=== PATIENT | female | born 1970 | race Caucasian/White ===

== ENCOUNTER 2019-12-03 01:20 | Outpatient (CLI) | payer OTHER, SELFPAY ==
[2019-12-03 19:24] LABS: SARS-CoV-2 RNA PCR Negative
== END 2019-12-03 01:21 | disposition home or self-care (01) ==
LOC: ANHCOVIDDT 01:20
PROVIDERS: PCP Family Medicine; Visit Provider Internal Medicine Gastroenterology
DX: Z01.812 Encounter for preprocedural laboratory examination (principal); Z20.828 Contact with and (suspected) exposure to other viral communicable diseases
CPT/HCPCS: 87635; C9803; U0003

== ENCOUNTER 2019-12-05 01:26 | Day surgery (SDC) | payer OTHER, SELFPAY ==
[2019-11-28 13:52] VITALS: BMI 47.7
[2019-12-05 08:20] VITALS: BP 168/96; PULSE 71; RESP 20; TEMP 36.9; O2SAT 71
--- NOTE | 2019-12-05 08:46 | P.HP_ITS ---
History of Present Illness History of Present Illness Consent: Risks, benefits, and alternatives have been discussed and questions answered. Patient agrees to proceed with procedure. Chief complaint: Neoplasm Screening Narrative: Nolvia Sanches is a 49 year old W female referred for screening colonoscopy secondary to a positive colo guard test. Patient is asymptomatic and there is no family history of colon polyps or colon cancer. Patient did have a gastric bypass Jeanie-en-Y procedure in 2017 loss 120 lb. [facility] Past Medical History Medical History Hypertension Surgical History Surgical History (Updated 12/05/19 @ 08:47 by Cricket Ashby MD) Delivery by section History of gastric bypass Social History Social History Smoking status: Former smoker Alcohol intake: current Drinks per week: 4 Substance use: never Living arrangements: with family Gender identity (if verbalized by the patient): Female Spiritual care concerns: No Meds Home Medications and Allergies Home Medications Medication Instructions Recorded Confirmed Type furosemide 40 mg PO DAILY 11/28/19 11/28/19 History lisinopril 20 mg PO BID 11/28/19 11/28/19 History venlafaxine 75 mg PO DAILY 11/28/19 11/28/19 History Allergies Allergy/AdvReac Type Severity Reaction Status Date / Time Penicillins Allergy Unknown Hives Verified 12/05/19 08:31 Poppy Seed Allergy Unknown Unknown Uncoded 12/05/19 08:31 STEROIDS Allergy Unknown Nausea and Uncoded 12/05/19 08:31 Vomiting Vital Signs Vital Signs - 24 hr 12/05/19 08:20 Temperature 36.9 C Pulse Rate 71 Respiratory Rate 20 Blood Pressure 168/96 H Pulse Oximetry 71 L Exam Const: Orientation/consciousness: patient oriented x3 Resp: Auscultation: clear to auscultation bilaterally Cardio: Rate: regular rate Rhythm: regular rhythm Heart sounds: no murmurs GI: GI Palp: Yes Soft to palpation, No Tenderness to palpation present (GI), Yes No hepatosplenomegaly present and No Palpable mass present Auscultation: normal bowel sounds Neuro: General: patient oriented x3 and no focal motor deficits Extrem: General: no pedal edema Assessment and Plan Additional Plan colonoscopy secondary positive colo guard test
--- NOTE | 2019-12-05 09:10 | WPDANESEPPF ---
Anes - Initial Pre Proc Eval Procedure: Operation Date: 12/05/19 09:30 Proposed Procedures p Screening Colonoscopy - Cricket Ashby MD Date/Time: 12/05/19 09:10 Surgeon: Cricket Ashby MD Pre Op Diagnosis: Neoplasm Screening Patient Data Age: 49 Gender: F Height: 5 ft 4 in Weight: 126.6 kg Last Vital Signs Temp 98.4 F 12/05/19 08:20 Pulse 71 12/05/19 08:20 Resp 20 12/05/19 08:20 BP 168/96 H 12/05/19 08:20 Pulse Ox 71 L 12/05/19 08:20 Allergies Allergy/AdvReac Type Severity Reaction Status Date / Time Penicillins Allergy Unknown Hives Verified 12/05/19 08:31 Poppy Seed Allergy Unknown Unknown Uncoded 12/05/19 08:31 STEROIDS Allergy Unknown Nausea and Uncoded 12/05/19 08:31 Vomiting Home Medications Medication Instructions Recorded Confirmed Type furosemide 40 mg PO DAILY 11/28/19 12/05/19 History lisinopril 20 mg PO BID 11/28/19 12/05/19 History venlafaxine 75 mg PO DAILY 11/28/19 12/05/19 History Patient hx anesthesia problems: none Family hx anesthesia problems: none PMFSH Past Medical History Medical History (Updated 12/05/19 @ 09:10 by Panda Boggs MD) Anxiety Hypertension Migraine Morbid obesity Surgical History Surgical History (Updated 12/05/19 @ 08:47 by Cricket Ashby MD) Delivery by section History of gastric bypass Social History Social History Smoking status: Former smoker Alcohol intake: current Drinks per week: 4 Substance use: never Living arrangements: with family Gender identity (if verbalized by the patient): Female Spiritual care concerns: No Anes - Eval Final PreProcedure Day of Procedure 12/05/19 09:10 Patient weight: morbidly obese Heart: regular rate and rhythm Lungs: clear to auscultation Airway: Mallampati scale class III Neurological: alert and oriented Last oral intake: >/= 8 hours ASA classification: III Emergent: no Anesthetic plan: proceed Anesthesia type and monitoring: general GIVS and standard monitoring Informed Consent: The patient's anesthetic plan and its attendant risks and benefits were discussed with the patient/family/POA. Questions were solicited and answers provided to the satisfaction of the patient/family/POA.
[2019-12-05] MEDS: LACTATED RINGERS 1,000 ML 150 ML IV CONT (09:20)
[2019-12-05] MEDS: SIMETHICONE ORAL SUSPENSION 20 MG/0.3 ML 30 ML BOTTLE 0.6 ML IRRIGATION (09:36)
[2019-12-05 09:52] VITALS: BP 111/92; PULSE 66; RESP 26; O2SAT 98
[2019-12-05 10:02] VITALS: BP 114/92; PULSE 65; RESP 16; O2SAT 98
[2019-12-05 10:12] VITALS: BP 142/90; PULSE 66; RESP 20; O2SAT 98
[2019-12-05 10:22] VITALS: BP 136/98; PULSE 65; RESP 16; O2SAT 98
== END 2019-12-05 10:30 | disposition home or self-care (01) ==
PROVIDERS: PCP Family Medicine; Visit Provider Internal Medicine Gastroenterology
PROC: 0DJD8ZZ Inspection of Lower Intestinal Tract, Via Natural or Artificial Opening Endoscopic (ICD-10-PCS; CPT 45378; principal; 2019-12-05 09:30)
DX: Z12.11 Encounter for screening for malignant neoplasm of colon (principal); R19.5 Other fecal abnormalities; I10 Essential (primary) hypertension; F41.9 Anxiety disorder, unspecified; E66.01 Morbid (severe) obesity due to excess calories; Z68.42 Body mass index [BMI] 45.0-49.9, adult; Z98.84 Bariatric surgery status; Z87.891 Personal history of nicotine dependence
CPT/HCPCS: 45378; J2704; J7120

== ENCOUNTER → 2020-01-15 14:14 | Outpatient (CLI) | payer OTHER, SELFPAY ==
--- NOTE | ~2020-01-15 | MM_ITS ---
EXAMINATION: MM screening [facility] BI [facility] HISTORY: Screening mammogram TECHNIQUE: Craniocaudal and mediolateral oblique 3-D tomosynthesis images were obtained and synthetic 2-D images were generated. CAD analysis was submitted and interpreted. COMPARISON: 12/18/2018, 11/14/2017, 10/13/2016 BREAST PARENCHYMAL COMPOSITION: The breasts are almost entirely fatty. FINDINGS: There is no evidence of suspicious mass, calcification, or architectural distortion to sugg est malignancy in either breast. There has been no suspicious interval change. IMPRESSION: 1. No mammographic evidence of malignancy. 2. Recommend routine screening mammography in one year. BI-RADS Category 1: Negative Reviewed, dictated and finalized at location A. EN YOGURT MAKER
== END ==
PROVIDERS: Visit Provider Obstetrics & Gynecology
DX: Z12.31 Encounter for screening mammogram for malignant neoplasm of breast (principal)
CPT/HCPCS: 77063; 77067

== ENCOUNTER → 2020-07-21 07:39 | Outpatient (CLI) | payer OTHER, SELFPAY ==
--- NOTE | ~2020-07-21 | XR_ITS ---
XR abdomen/kub 1V DATE: 07/21/2020 07:55 INDICATION: Abdominal pain, constipation TECHNIQUE: AP projection, 2 views COMPARISON: None FINDINGS: No bowel obstruction. The psoas shadows are intact. No visceromegaly or significant abnorma l calcification. Bilateral calcified pelvic phleboliths. Included skeletal structures are unremarkable. IMPRESSION: Nonspecific abdomen; no evidence of bowel obstruction Reviewed, dictated and finalized at Location A. Reviewed, dictated and finalized at location B.
== END ==
PROVIDERS: PCP Physician Assistant; Visit Provider Physician Assistant
DX: R07.9 Chest pain, unspecified (principal); K59.00 Constipation, unspecified; R10.9 Unspecified abdominal pain
CPT/HCPCS: 74018

== ENCOUNTER 2020-09-30 08:51 | Outpatient (CLI) | payer OTHER, SELFPAY ==
--- NOTE | 2020-09-30 | EST_ITS ---
Patient Info Name: Nolvia Sanches Age: 50 years : 1970 Gender: Female Ht: 64 in Wt: 288 lbs BSA: 2.51 m2 HR: 64 bpm BP: 149 / 86 mmHg Heart Rhythm: Sinus Rhythm Technical Quality: Fair Exam Date: 09/30/2020 9:24 AM Exam Location: [facility] Exam Room: stress lab Patient Status: Outpatient Admit Date: 09/30/2020 Staff Ordering Physician: Tiffanie, Beata Cuellar PA-C Coverage Specialist: Shital Ray RDCS Attending Provider: DR JERSON HUFFMAN Referring Physician: Tiffanie CULVER; Exercise Technologist: Valentin Cortez RDCS, RT Exercise Physician: Darling Biggs MD Exam Type: CA stress echo Study Info Indications - chest pain Summary 1. At rest: Normal left ventricular systolic function with no regional wall motion abnormalities. Ejection fraction estimated 65%. 2. Inconclusive treadmill stress test for ischemia. The patient exercised only 2:30 minutes, and we reduced the incline from the Armando protocol to help her prolong her exercise time. Peak heart rate was only 119 beats per minute which is 70% of predicted maximal heart rate. No ischemic appearing EKG changes at this level of exercise. 3. After exercise there are no segmental wall motion abnormalities. However there appeared to be some dilatation of the left ventricle which is an abnormal response, and there was a lack of improvement of LV function which is also abnormal. However it is difficult to draw conclusions due to the low level of exercise. Perhaps these changes related to hypertension or other factors. 4. Resting hypertension, 149/86, with a hypertensive blood pressure response reaching 207/116 mmHg with exercise. 5. Very poor exercise tolerance. 6. Technically difficult study due to the patient's body habitus, the endocardium was not well seen in all views. 7. Consider alternative testing such as a Lexiscan stress test if clinically indicated. Left Ventricle Left ventricular chamber size, wall thickness, systolic and diastolic function are normal with no regional wall motion abnormalities with an estimated ejection fraction of Empty. At rest: Normal left ventricular systolic function with no regional wall motion abnormalities. Ejection fraction estimated 65%. Protocol: Manual Mode Stress ECG Details Stage: REST Duration (min): 4 min : 42 sec Costa: --- Speed (mph): 0.0 Grade (%): 0 HR (bpm): 66 SBP (mmHg): 149 DBP (mmHg): 86 METS: --- Stage: REST Duration (min): 18 min : 4 sec Costa: --- Speed (mph): 0.0 Grade (%): 0 HR (bpm): 59 SBP (mmHg): 149 DBP (mmHg): 86 METS: --- Stage: STAGE 1 Duration (min): 1 min : 0 sec Costa: --- Speed (mph): 1.7 Grade (%): 10 HR (bpm): 88 SBP (mmHg): 149 DBP (mmHg): 86 METS: --- Stage: STAGE 1 Duration (min): 2 min : 0 sec Costa: --- Speed (mph): 1.7 Grade (%): 10 HR (bpm): 107 SBP (mmHg): 149 DBP (mmHg): 86 METS: --- Stage: STAGE 1 Duration (min): 3 min : 0 sec Costa: --- Speed (mph): 0.0 Grade (%): 0 HR (bpm): 117 SBP (mmHg): 168 DBP (mmHg): 104 METS: --- Stage: STAGE 1 Duration (min): 4 min : 0 sec Costa: --- Speed (mph): 0.0 Gr
== END 2020-09-30 08:52 | disposition home or self-care (01) ==
PROVIDERS: PCP Physician Assistant; Visit Provider Physician Assistant
DX: R07.9 Chest pain, unspecified (principal); I10 Essential (primary) hypertension
CPT/HCPCS: 93351

== ENCOUNTER 2020-10-06 09:14 | Outpatient (CLI) | payer OTHER, SELFPAY ==
--- NOTE | ~2020-10-06 | US_ITS ---
EXAMINATION: US venous doppler [facility] DATE: 10/06/2020 10:06 INDICATION: Bilateral lower limb swelling TECHNIQUE: Grayscale ultrasound images without and with compression and Doppler ultrasound images of the bilateral lower extremity veins were obtained. COMPARISON: None. FINDINGS: The visualized portions of right common femoral vein, profunda (deep) femoral vein, femoral vein, pop liteal vein, posterior tibial veins and greater saphenous vein outflow are patent. Right standing venous mapping: reflux seconds duration; vein size. Greater saphenous origin: NA; 6.6 mm. Greater saphenous proximal thigh:- 2 seconds; 6.6 mm. Greater saphenous mid thigh:-------- 0 seconds; 5.2 mm. Greater saphenous distal thigh:------ 0 seconds; 4.0 mm. Greater saphenous proximal calf:--- 0 seconds; 4.5 mm. Greater saphenous mid calf: 0 seconds; 3.5 mm. Greater saphenous distal calf:-------- 0 seconds; 2.5 mm. Lesser saphenous proximally:------- 0 seconds; 2.5 mm. Lesser saphenous mid : 0 seconds; 2.6 mm. Lesser saphenous distally: 0 seconds; 2.3 mm. The visualized portions of left common femoral vein, profunda femoral vein, femoral vein, popliteal v ein, posterior tibial veins, peroneal veins and greater saphenous vein outflow are patent. Left standing venous mapping: reflux seconds duration; vein size. Greater saphenous origin: NA; 14.0 mm. Greater saphenous proximal thigh:- 0 seconds; 6.9 mm. Greater saphenous mid thigh:-------- 0 seconds; 3.7 mm. Greater saphenous distal thigh:------ 0 seconds; 3.0 mm. Greater saphenous proximal calf:--- 1 seconds; 7.6 mm. Greater saphenous mid calf: 1.5 seconds; 3.5 mm. Greater saphenous distal calf:-------- 0 seconds; 4.0 mm. Lesser saphenous proximally:------- 0 seconds; 2.1 mm. Lesser saphenous mid : 0 seconds; 2.6 mm. Lesser saphenous distally: 0 seconds; 3.0 mm. IMPRESSION: 1. No deep venous thrombosis in either lower limb. 2. Venous mapping as detailed above with minimal reflux, the greatest of 1.5 second duration at the l eft greater saphenous vein at the mid calf. Reviewed, dictated and finalized at location A. IMPRESSION: 1. No deep venous thrombosis in either lower limb. 2. Venous mapping as detailed above with minimal reflux, the greatest of 1.5 se cond duration at the left greater saphenous vein at the mid calf.
== END 2020-10-06 09:15 | disposition home or self-care (01) ==
LOC: ANHIMG 09:17
PROVIDERS: PCP Physician Assistant; Visit Provider Physician Assistant
DX: R60.0 Localized edema (principal)
CPT/HCPCS: 93970

== ENCOUNTER → 2021-01-16 09:09 | Outpatient (CLI) | payer OTHER, SELFPAY ==
--- NOTE | ~2021-01-16 | MM_ITS ---
EXAMINATION: MM screening [facility] BI [facility] [place] HISTORY: Screening mammogram TECHNIQUE: Craniocaudal and mediolateral oblique 3-D tomosynthesis images were obtained and synthetic 2-D images were generated. CAD analysis was submitted and interpreted. COMPARISON: 01/15/2020, 12/18/2018 BREAST PARENCHYMAL COMPOSITION: The breasts are almost entirely fatty. FINDINGS: There is no evidence of suspicious mass, calcification, or architectural distortion to sugg est malignancy in either breast. There has been no suspicious interval change. IMPRESSION: 1. No mammographic evidence of malignancy. 2. Recommend routine screening mammography in one year. BI-RADS Category 1: Negative Reviewed, dictated and finalized at location A. CAL OFFICER PSYCHIATRY
== END ==
PROVIDERS: Visit Provider Obstetrics & Gynecology
DX: Z12.31 Encounter for screening mammogram for malignant neoplasm of breast (principal)
CPT/HCPCS: 77063; 77067

== ENCOUNTER → 2022-03-01 10:43 | Outpatient (CLI) | payer OTHER, SELFPAY ==
--- NOTE | ~2022-03-01 | XR_ITS ---
Right Knee Technique: AP, lateral, and sunrise views were obtained. Clinical History: Pain Findings: No fracture or dislocation is seen. Osseous alignment is anatomic. Minimal tricompartmental degenerative spurring noted. There is narrowing of the lateral aspect of the patellofemoral compartm ent. Diffuse subcutaneous soft tissue edema present. No joint effusion is seen. Impression: No acute fracture or dislocation. Minimal degenerative change, as above. Diffuse subcutaneous soft tissue edema. Reviewed, dictated and finalized at location . POT TENDER Impression: No acute fracture or dislocation. Minimal degenerative change, as above. Diffuse subcutaneous soft tissue edema.
== END ==
PROVIDERS: PCP Nurse Practitioner Family; Visit Provider Nurse Practitioner Family
DX: M25.561 Pain in right knee (principal); G89.29 Other chronic pain
CPT/HCPCS: 73562

== ENCOUNTER → 2022-03-10 13:19 | Outpatient (CLI) | payer OTHER, SELFPAY ==
--- NOTE | ~2022-03-10 | MM_ITS ---
EXAMINATION: MM screening [facility] BI [facility] [place] HISTORY: Screening mammogram TECHNIQUE: Craniocaudal and mediolateral oblique 3-D tomosynthesis images were obtained and synthetic 2-D images were generated. CAD analysis was submitted and interpreted. COMPARISON: 01/16/2021, 01/15/2020, 12/18/2018 BREAST PARENCHYMAL COMPOSITION: There are scattered areas of fibroglandular density. FINDINGS: No suspicious mass, calcification, or architectural distortion are identified in either nickolas ast to suggest malignancy. There has been no suspicious interval change. IMPRESSION: 1. No mammographic evidence of malignancy. 2. Recommend routine screening mammography in one year. BI-RADS Category 1: Negative Reviewed, dictated and finalized at location A. TORIAL MANAGER
== END ==
PROVIDERS: PCP Obstetrics & Gynecology; Visit Provider Obstetrics & Gynecology
DX: Z12.31 Encounter for screening mammogram for malignant neoplasm of breast (principal)
CPT/HCPCS: 77063; 77067

== ENCOUNTER 2022-07-05 17:00 | Emergency (ER) | payer OTHER, SELFPAY ==
--- NOTE | 2022-07-05 17:04 | ED.EXTPRO ---
HPI - Extremity Problem General Chief complaint: Extremity Problem,Nontraumatic Stated complaint: leaking leg Time Seen by Provider: 07/05/22 17:06 Source: patient, RN notes reviewed and old records reviewed Mode of arrival: ambulatory Limitations: no limitations History of Present Illness HPI Narrative: 52-year-old female presents to the [facility] with her legs ?leaking. ? Patient states she has had is some increased swelling over the last couple of weeks. Noticed that her left lower leg started weeping today. No increased erythema. No increased warmth. Currently on exam no weeping noted Primary care providers at [facility] and has an appointment on Monday. States that she used to wear compressions stockings but her legs have gotten bigger over the last couple weeks and have not been able to wear them Related Data Home Medications Medication Instructions Recorded Confirmed furosemide 40 mg tablet 60 mg PO DAILY 11/28/19 07/05/22 lisinopril 20 mg tablet 20 mg PO BID 11/28/19 07/05/22 venlafaxine 75 mg capsule,extended 187.5 mg PO DAILY 11/28/19 07/05/22 release 24 hr alprazolam 0.5 mg tablet 0.5 mg PO HS 07/05/22 07/05/22 cholecalciferol (vitamin D3) 1,250 1,250 mcg PO DAILY 07/05/22 07/05/22 mcg (50,000 unit) capsule metoprolol tartrate 50 mg tablet 50 mg PO DAILY 07/05/22 07/05/22 potassium chloride 20 mEq 20 meq PO DAILY 07/05/22 07/05/22 tablet,extended release(part/cryst) semaglutide (weight loss) 0.5 0.5 mg subcut WEEKLY 07/05/22 07/05/22 mg/0.5 mL subcutaneous pen injector (Wegovy) trazodone 50 mg tablet 50 mg PO HS 07/05/22 07/05/22 Allergies Allergy/AdvReac Type Severity Reaction Status Date / Time Penicillins Allergy Unknown Hives Verified 07/05/22 17:03 Poppy Seed Allergy Unknown Unknown Uncoded 07/05/22 17:03 STEROIDS Allergy Unknown Nausea and Uncoded 07/05/22 17:03 Vomiting Review of Systems Review of Systems: All systems reviewed & are unremarkable except as noted in HPI and below Constitutional: Constitutional: Reports no additional constitutional complaints Eyes: Eyes: Reports no additional eye complaints ENT: Reports system reviewed and no additional complaints, except as documented Cardiovascular: Cardiovascular: Reports no additional cardiovascular complaints, Denies chest pain and Denies dyspnea Respiratory: Respiratory: Reports no additional respiratory complaints, Denies chest congestion, Denies cough and Denies dyspnea Gastrointestinal: Gastrointestinal: Reports no additional gastrointestinal complaints, Denies abdominal pain, Denies nausea and Denies vomiting Musculoskeletal: Musculoskeletal: Reports as per HPI Integumentary/Breasts: Skin/Breast: Reports system reviewed and no additional complaints, except as docu Neurologic: Reports system reviewed and no additional complaints, except as documented Psychiatric: Psychiatric: Reports no additional psychiatric complaints Allergic/Immunologic: Allergic/Immunologic: Reports no additional allergic/immunologic complaints [facility] Past Medical History Medical History Anxiety Hypertension Migraine Morbid obesity Surgical History Surgical History Delivery by section History of gastric bypass Social History Social History Smoking status: Former smoker Alcohol intake: current Drinks per week: 4 Substance use: never Living arrangements: with family Gender identity (if verbalized by the patient): Female Spiritual care concerns: No Comments At the time of my signature, I reviewed and agree with the nursing past medical, surgical, social, and family history. There is no relevant family history pertinent to the patient complaint. Exam Const: General: cooperative, healthy appearing, comfortable, no acute distress, well developed, alert an
[2022-07-05 17:08] VITALS: BP 159/102; PULSE 73; RESP 20; TEMP 36.6; O2SAT 97
== END 2022-07-05 17:22 | disposition home or self-care (01) ==
PROVIDERS: Emergency Provider Nurse Practitioner
DX: R60.0 Localized edema (principal); Z87.891 Personal history of nicotine dependence; F41.9 Anxiety disorder, unspecified; I10 Essential (primary) hypertension; E66.01 Morbid (severe) obesity due to excess calories; Z68.43 Body mass index [BMI] 50.0-59.9, adult
CPT/HCPCS: 99211; G0463

== ENCOUNTER 2022-07-14 15:13 | Outpatient (CLI) | payer OTHER, SELFPAY ==
--- NOTE | ~2022-07-14 | US_ITS ---
EXAMINATION:US venous doppler LE LT INDICATION:Left lower extremity swelling TECHNIQUE: Multiple grayscale, color flow and Doppler images of the left lower extremity deep venous systems were obtained and reviewed. COMPARISON:Ultrasound dated 07/07/2016 FINDINGS: The common femoral, superficial femoral and popliteal veins demonstrate normal respiratory variation, augmentation and compressibility. Color flow is also seen within the posterior tibial, pe roneal, greater saphenous and profunda veins. IMPRESSION: 1: No lower extremity deep venous thrombosis. Reviewed, dictated and finalized at location L.
== END 2022-07-14 15:14 | disposition home or self-care (01) ==
PROVIDERS: PCP Nurse Practitioner Family; Visit Provider Nurse Practitioner Family
DX: R22.42 Localized swelling, mass and lump, left lower limb (principal)
CPT/HCPCS: 93971

== ENCOUNTER 2023-02-16 18:35 | Observation (INO) | payer OTHER, SELFPAY ==
[2023-02-16] VITALS (15 sets, daily range): BP systolic 104–171; BP diastolic 49–145; PULSE 73–93; RESP 16–23; TEMP 36.4–36.7; O2SAT 92–100; BMI 63.6
--- NOTE | ~2023-02-16 | XR_ITS ---
EXAMINATION: XR wrist LT 2V DATE: 02/16/2023 21:48 INDICATION: Assess results of traction on a left wrist fracture dislocation TECHNIQUE: And anteroposterior view of the left wrist was obtained with traction. COMPARISON: 02/16/2023 at 8:29 PM FINDINGS: Again seen is a left wrist fracture dislocation with mildly comminuted and extra articular fractures of the distal metaphyseal region of the left radius. No appreciable change in the degree of displacem ent and angulation on the provided AP projection. The proximal carpal row projects over the distal ul na consistent with persistent dislocation of the ulnar carpal articulation. IMPRESSION: 1. No interval change in alignment with traction of the previously described left wrist fracture disl ocation. Reviewed, dictated and finalized at location A. L DBA IMPRESSION: 1. No interval change in alignment with traction of the previously described le ft wrist fracture dislocation.
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
--- NOTE | ~2023-02-16 | XR_ITS ---
XR surgery orthopedic Indication: ORIF left wrist TECHNIQUE: Fluoroscopy used during ORIF left wrist performed by [Trung Encarnacion MD] on 02/18. 1 minute 53 seconds with 2 images captured. FINDINGS: Correlate with procedure note. IMPRESSION: Fluoroscopy used during ORIF left wrist. Distal radial metaphyseal fracture in near-anato rigo alignment post reduction. Reviewed, dictated and finalized at location A. GER STERILE IMPRESSION: Fluoroscopy used during ORIF left wrist. Distal radial metaphyseal fracture in near-anatomic alignment post reduction.
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
--- NOTE | 2023-02-16 19:06 | ECG_ITS ---
Measurements Intervals [place] Rate: 71 P: 48 AL: 207 QRS: 4 QRSD: 82 T: 29 QT: 413 QTc: 450 Interpretive Statements SINUS RHYTHM LOW QRS VOLTAGE IN PRECORDIAL LEADS [QRS DEFLECTION < 1.0 mV IN CHEST LEADS] POOR R-WAVE PROGRESSION BORDERLINE ECG NO PREVIOUS ECG AVAILABLE FOR COMPARISON Electronically Signed On 02-17-2023 14:00:34 CHRISTIAN COUNSELOR by Vinh Roberson M.D.
[2023-02-16] MEDS: MORPHINE SULFATE (*CRX) 4 MG/ML INJ IV PUSH ×3 (20:03→23:36)
[2023-02-16] MEDS: ONDANSETRON INJ 4 MG/2 ML VIAL IV PUSH (20:03)
[2023-02-16 20:20] LABS: Basophils Absolute Auto 0.1 K/mm3 (0.0-0.1); Basophils Percent Auto 0.4 % (0.2-1.2); Eosinophils Absolute Auto 0.1 K/mm3 (0-0.3); Eosinophils Percent Auto 0.5 % (0-4.4); Hematocrit 38.3 % (37.0-47.0); Hemoglobin 12.1 g/dL (12.0-15.0); Immature Granulocyte Absolute 0.09 K/mm3 (0.00-0.031); Immature Granulocyte Percent A 0.6 % (0-0.5); Lymphocytes Percent Auto 14.4 % (18.3-44.2); Mean Corpuscular HGB Conc 31.6 g/dl (32-36); Mean Corpuscular Hemoglobin 33.2 pg (26-34); Mean Corpuscular Volume 105.2 fl (80-100); Mean Platelet Volume 9.8 fl (7.4-10.4); Monocytes Absolute Auto 1.1 K/mm3 (0.1-0.6); Monocytes Percent Auto 7.4 % (2.6-8.5); Neutrophils Absolute Auto 11.2 K/mm3 (1.3-6.7); Neutrophils Percent Auto 76.7 % (45.5-73.1); Platelet Count Result 234 k/mm3 (150-375); Red Blood Count 3.64 M/mm3 (4.2-5.4); Red Cell Distribution Width 15.1 % (11.5-14.5); White Blood Count 14.6 K/mm3 (4.5-10.0)
[2023-02-16 20:32] LABS: Prothrombin Time 13.9 Seconds (11.1-14.7)
[2023-02-16 20:33] LABS: Partial Thromboplastin Time 31.1 SECONDS (22.3-36.8)
[2023-02-16 20:35] LABS: Ethanol 124 mg/dL (<10)
[2023-02-16] MEDS: LIDOCAINE HCL 1% LOCAL INJ 10 ML VIAL INFILTRATE (20:38)
[2023-02-16] MEDS: PROPOFOL IV EMULSION 200 MG/20 ML VIAL 100 MG IV PUSH (20:38)
[2023-02-16 20:39] LABS: Anisocytosis 1+ (NORMAL); Ovalocytes 1+ (NORMAL); Platelet Estimate Adequate (Adequate); Schistocytes None Seen (NORMAL)
[2023-02-16] MEDS: SODIUM CHLORIDE 0.9% IV 1,000 ML 999 ML (20:55)
--- NOTE | 2023-02-16 20:59 | PC.NURSE ---
Dr Hobbs at bedside to give patient propofol for sedation. 50mg propofol given by Dr Hobbs at 2014 50mg of propofol given by Dr Hobbs at 2016 30mg of propofol given by Dr Hobbs at 2018 40mg of propofol given by Dr Hobbs at 2019 30mg of propofol given by Dr Hobbs at 2022 patient sleepy, but still awake
[2023-02-16 22:07] LABS: Estimated CRCL calculation 100 ml/min; Estimated Glomerular Filt Rate > 60
[2023-02-16 22:20] LABS: Alanine Aminotransferase 33 U/L (6-35); Albumin Level 3.5 g/dL (3.5-5.1); Alkaline Phosphatase 248 U/L (38-126); Anion Gap 7 mmol/L (8-16); Aspartate Amino Transferase 85 U/L (14-36); Bilirubin,Total 0.9 mg/dL (0.2-1.3); Blood Urea Nitrogen 15 mg/dL (7-17); Calcium 7.5 mg/dL (8.4-10.2); Carbon Dioxide 25 mmol/L (22-30); Chloride 100 mmol/L (98-107); Estimated CRCL calculation 113 ml/min; Estimated Glomerular Filt Rate > 60; Glucose 157 mg/dL (65-110); Potassium 3.4 mmol/L (3.4-5.0); Sodium 132 mmol/L (137-145)
[2023-02-16 22:33] LABS: Troponin I < 0.012 ng/mL (0.000-0.034)
[2023-02-16] MEDS: SODIUM CHLORIDE 0.9% IV 1,000 ML 100 ML IV CONT (23:36)
--- NOTE | 2023-02-17 00:13 | ADMGEN ---
This patient, Nolvia Sanches, was admitted to Medical Room 254-01. Patient/family oriented to hospital policies and general routines including ID bracelet, bed and alarms, visiting hours, pain management, procedures, bathroom and other care routines, personal items, smoking policy, room service/diet, and visiting hours. Information on how to activate the Rapid Response Team has been discussed. Patient/Family are encouraged to report perceived risks to care and to ask questions if they do not understand what they are told or what they should do.
[2023-02-17] MEDS: MORPHINE SULFATE (*CRX) 4 MG/ML INJ IV PUSH ×7 (01:45→22:35)
[2023-02-17 05:08] VITALS: BP 138/82; PULSE 93; RESP 18; TEMP 36.3; O2SAT 92
[2023-02-17 06:24] LABS: Alanine Aminotransferase 33 U/L (6-35); Albumin Level 3.6 g/dL (3.5-5.1); Alkaline Phosphatase 227 U/L (38-126); Anion Gap 7 mmol/L (8-16); Aspartate Amino Transferase 79 U/L (14-36); Bilirubin,Total 1.4 mg/dL (0.2-1.3); Blood Urea Nitrogen 15 mg/dL (7-17); Calcium 7.6 mg/dL (8.4-10.2); Carbon Dioxide 27 mmol/L (22-30); Chloride 100 mmol/L (98-107); Estimated CRCL calculation 139 ml/min; Estimated Glomerular Filt Rate > 60; Glucose 147 mg/dL (65-110); Potassium 3.8 mmol/L (3.4-5.0); Sodium 134 mmol/L (137-145)
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
[2023-02-17 07:55] LABS: Hematocrit 33.4 % (37.0-47.0); Hemoglobin 10.5 g/dL (12.0-15.0); Mean Corpuscular HGB Conc 31.4 g/dl (32-36); Mean Corpuscular Hemoglobin 33.1 pg (26-34); Mean Corpuscular Volume 105.4 fl (80-100); Platelet Count Result 212 k/mm3 (150-375); Red Blood Count 3.17 M/mm3 (4.2-5.4); Red Cell Distribution Width 15.2 % (11.5-14.5); White Blood Count 7.5 K/mm3 (4.5-10.0)
[2023-02-17 09:32] LABS: Folic Acid 13.9 ng/mL (2.76->20)
[2023-02-17] MEDS: MULTIVITAMINS THERAPEUTIC TAB (*BKC) 1 TABLET PO (10:10)
[2023-02-17] MEDS: VENLAFAXINE HCL XR 75 MG CAP.ER.24H 150 MG PO (10:10)
[2023-02-17] MEDS: THIAMINE HCL 200 MG/2 ML VIAL 100 MG IV PUSH (10:10)
[2023-02-17] MEDS: FUROSEMIDE 20 MG TABLET 60 MG PO (10:10)
[2023-02-17] MEDS: METOPROLOL TARTRATE 50 MG TAB PO ×2 (10:10→21:30)
[2023-02-17] MEDS: SODIUM CHLORIDE 0.9% IV 1,000 ML 100 ML IV CONT ×2 (10:10→22:35)
[2023-02-17] MEDS: oxyBUTYnin CHLORIDE 5 MG TABLET PO ×2 (10:10→18:30)
[2023-02-17] MEDS: POTASSIUM CHLORIDE 20 MEQ ER TABLET PO (10:11)
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
[2023-02-17 15:36] VITALS: BP 145/90; PULSE 81; RESP 16; TEMP 36.9; O2SAT 97
[2023-02-17 19:32] VITALS: BP 151/107; PULSE 90; RESP 20; TEMP 36.6; O2SAT 90
[2023-02-17 21:30] VITALS: PULSE 88
[2023-02-17] MEDS: GABAPENTIN 100 MG CAPSULE BY MOUTH (21:30)
[2023-02-18] VITALS (10 sets, daily range): BP systolic 126–154; BP diastolic 70–95; PULSE 88–108; RESP 10–20; TEMP 36.3–36.7; O2SAT 90–100
[2023-02-18 05:15] LABS: Basophils Absolute Auto 0.1 K/mm3 (0.0-0.1); Basophils Percent Auto 0.8 % (0.2-1.2); Eosinophils Absolute Auto 0.1 K/mm3 (0-0.3); Eosinophils Percent Auto 1.1 % (0-4.4); Hematocrit 32.4 % (37.0-47.0); Hemoglobin 9.9 g/dL (12.0-15.0); Immature Granulocyte Absolute 0.05 K/mm3 (0.00-0.031); Immature Granulocyte Percent A 0.5 % (0-0.5); Lymphocytes Absolute Auto 1.85 K/mm3 (0.9-3.2); Lymphocytes Percent Auto 19.6 % (18.3-44.2); Mean Corpuscular HGB Conc 30.6 g/dl (32-36); Mean Corpuscular Hemoglobin 32.9 pg (26-34); Mean Corpuscular Volume 107.6 fl (80-100); Mean Platelet Volume 9.8 fl (7.4-10.4); Monocytes Absolute Auto 1.2 K/mm3 (0.1-0.6); Monocytes Percent Auto 13.1 % (2.6-8.5); Neutrophils Absolute Auto 6.1 K/mm3 (1.3-6.7); Neutrophils Percent Auto 64.9 % (45.5-73.1); Nucleated Red Blood Cells Perc 0.3 % (0.0-0.2); Platelet Count Result 198 k/mm3 (150-375); Red Blood Count 3.01 M/mm3 (4.2-5.4); Red Cell Distribution Width 15.4 % (11.5-14.5); White Blood Count 9.5 K/mm3 (4.5-10.0)
[2023-02-18 05:35] LABS: Alanine Aminotransferase 33 U/L (6-35); Albumin Level 3.5 g/dL (3.5-5.1); Alkaline Phosphatase 230 U/L (38-126); Anion Gap 7 mmol/L (8-16); Aspartate Amino Transferase 71 U/L (14-36); Bilirubin,Total 1.5 mg/dL (0.2-1.3); Blood Urea Nitrogen 19 mg/dL (7-17); Calcium 8.1 mg/dL (8.4-10.2); Carbon Dioxide 25 mmol/L (22-30); Chloride 101 mmol/L (98-107); Estimated CRCL calculation 107 ml/min; Estimated Glomerular Filt Rate > 60; Glucose 126 mg/dL (65-110); Magnesium 1.6 mg/dL (1.6-2.3); Potassium 4.1 mmol/L (3.4-5.0); Sodium 133 mmol/L (137-145)
[2023-02-18] MEDS: MORPHINE SULFATE (*CRX) 4 MG/ML INJ IV PUSH (06:15)
[2023-02-18] MEDS: LACTATED RINGERS 1,000 ML 30 ML IV CONT (07:30)
--- NOTE | 2023-02-18 07:40 | PC.NURSE ---
To OR per bed, IV right hand. Report given to Mark SHEIKH.
--- NOTE | 2023-02-18 07:47 | WPDANESEPPF ---
Anes - Initial Pre Proc Eval Procedure: Operation Date: 02/18/23 07:30 Proposed Procedures p Open Reduction Internal Fixation Left Wrist, Possible External Fixation - Trung Encarnacion MD Date/Time: 02/18/23 07:47 Surgeon: Trung Encarnacion MD Pre Op Diagnosis: Left Wrist Fracture Patient Data Age: 52 Gender: F Height: 1.6 m Weight: 162.8 kg Last Vital Signs Temp 36.3 C L 02/18/23 05:41 Pulse 88 02/18/23 05:41 Resp 20 02/18/23 05:41 BP 150/95 H 02/18/23 05:41 Pulse Ox 92 02/18/23 05:41 O2 Del Method Room Air 02/17/23 20:00 O2 Flow Rate 15 02/16/23 20:31 Allergies Allergy/AdvReac Type Severity Reaction Status Date / Time Penicillins Allergy Unknown Hives Verified 02/16/23 18:43 Poppy Seed Allergy Unknown Unknown Uncoded 02/16/23 18:43 STEROIDS Allergy Unknown Nausea and Uncoded 02/16/23 18:43 Vomiting Home Medications Medication Instructions Recorded Confirmed Type furosemide 40 mg tablet 60 mg PO DAILY 11/28/19 02/17/23 History venlafaxine 75 mg capsule,extended 150 mg PO DAILY 11/28/19 02/17/23 History release 24 hr alprazolam 0.5 mg tablet 0.5 mg PO HS PRN Sleep 07/05/22 02/17/23 History cholecalciferol (vitamin D3) 1,250 1,250 mcg PO DAILY 07/05/22 02/17/23 History mcg (50,000 unit) capsule metoprolol tartrate 50 mg tablet 50 mg PO BID 07/05/22 02/17/23 History potassium chloride 20 mEq 20 meq PO DAILY 07/05/22 02/17/23 History tablet,extended release(part/cryst) semaglutide (weight loss) 0.5 0.5 mg subcut WEEKLY 07/05/22 02/17/23 History mg/0.5 mL subcutaneous pen injector (Wegovy) trazodone 50 mg tablet 50 mg PO HS PRN Sleep 07/05/22 02/17/23 History aspirin 81 mg capsule 81 mg PO DAILY 02/17/23 02/17/23 History gabapentin 100 mg capsule 100 mg HS 02/17/23 02/17/23 History oxybutynin chloride 5 mg tablet 5 mg PO BID 02/17/23 02/17/23 History Laboratory Tests 02/17/23 02/17/23 02/18/23 05:53 06:00 05:05 WBC 7.5 K/mm3 9.5 K/mm3 (4.5-10.0) (4.5-10.0) RBC 3.17 L M/mm3 3.01 L M/mm3 (4.2-5.4) (4.2-5.4) Hgb 10.5 L g/dL 9.9 L g/dL (12.0-15.0) (12.0-15.0) Hct 33.4 L % 32.4 L % (37.0-47.0) (37.0-47.0) MCV 105.4 H fl 107.6 H fl (80-100) (80-100) MCH 33.1 pg 32.9 pg (26-34) (26-34) MCHC 31.4 L g/dl 30.6 L g/dl (32-36) (32-36) RDW 15.2 H % 15.4 H % (11.5-14.5) (11.5-14.5) Plt Count 212 k/mm3 198 k/mm3 (150-375) (150-375) MPV 10.0 fl 9.8 fl (7.4-10.4) (7.4-10.4) Immature Gran % (Auto) 0.5 % (0-0.5) Neut % (Auto) 64.9 % (45.5-73.1) Lymph % (Auto) 19.6 % (18.3-44.2) [place] % (Auto) 13.1 H % (2.6-8.5) Eos % (Auto) 1.1 % (0-4.4) Baso % (Auto) 0.8 % (0.2-1.2) Lymph # (Auto) 1.85 K/mm3 (0.9-3.2) [place] # (Auto) 1.2 H K/mm3 (0.1-0.6) Eos # (Auto) 0.1 K/mm3 (0-0.3) Baso # (Auto) 0.1 K/mm3 (0.0-0.1) Abs Immat Gran (auto) 0.05 H K/mm3 (0.00-0.031) Absolute Neuts (auto) 6.1 K/mm3 (1.3-6.7) Absolute Nucleated RBC 0.0 K/mm3 (0.0-0.012) Nucleated RBC % 0.3 H % (0.0-0.2) Sodium 133 L mmol/L (137-145) Potassium 4.1 mmol/L (3.4-5.0) Chloride 101 mmol/L (98-107) Carbon Dioxide 25 mmol/L (22-30) Anion Gap 7 L mmol/L (8-16) BUN 19 H mg/dL (7-17) Creatinine 0.80 mg/dL (0.7-1.0) Estim Creat Clear Calc 107 ml/min Estimated GFR > 60 (59 - ) Glucose 126 H mg/dL (65-110) Calcium 8.1 L mg/dL (8.4-10.2) Magnesium 1.6 mg/dL (1.6-2.3) Total Bilirubin 1.5 H mg/dL (0.2-1.3) AST 71 H U/L (14-36) ALT 33 U/L (6-35) Alkaline Phosphatase 230 H U/L (38-126) Total Protein 7.0 g/dL (6.3-8.2) Albumin 3.5 g/dL
[2023-02-18] MEDS: ceFAZolin SODIUM 1 GM VIAL 3 GM (08:25)
--- NOTE | 2023-02-18 09:33 | W.PM.PROC2 ---
Procedure Note - Detailed Date of Procedure 02/18/23 Pre-op Diagnosis Left Wrist Fracture Post-op Diagnosis Same Procedure Performed Open reduction internal fixation left wirst fracture with a plate. Surgeon Trung Encarnacion MD Anesthesia General Description of Procedure Patient brought to operating room 7. General anesthetic was administered. She was sterilely prepped and draped in the usual manner. Surgery was made particularly difficult by the fact that she is morbidly obese with a BMI of 63. Longitudinal incision made over the distal radius on the volar aspect. Dissection carried down to the FCR. The FCR identified released from the surrounding muscle and dissection carried down to the fracture. The fracture was reduced. Reduction was very difficult because of the obesity and and the comminuted fracture. A DVR plate was placed with 3 screws proximally and 5 distally. Good fixation and alignment was obtained. Wound irrigated hemostasis obtained and closed with 2-0 Vicryl and jamie. A sterile dressing and splint were applied. Patient tolerated procedure well. Implants BIOMET ANATOMIC DVR Estimated Blood Loss 50 Urine Output 200 Pathology None sent Complications No immediate complications Condition Stable Disposition PACU [facility] Billing Surgery - Charge Forward: Surgery Billing (ORIF COLLES FRACTURE [id number])
[2023-02-18] MEDS: fentaNYL CITRATE INJ (*CRX) 100 MCG/2 ML VIAL 25 MCG IV PUSH ×2 (10:08→10:11)
[2023-02-18] MEDS: FUROSEMIDE 20 MG TABLET 60 MG PO (11:38)
[2023-02-18] MEDS: MULTIVITAMINS THERAPEUTIC TAB (*BKC) 1 TABLET PO (11:38)
[2023-02-18] MEDS: METOPROLOL TARTRATE 50 MG TAB PO (11:38)
[2023-02-18] MEDS: oxyBUTYnin CHLORIDE 5 MG TABLET PO (11:38)
[2023-02-18] MEDS: POTASSIUM CHLORIDE 20 MEQ ER TABLET PO (11:39)
[2023-02-18] MEDS: VENLAFAXINE HCL XR 75 MG CAP.ER.24H 150 MG PO (11:39)
[2023-02-18] MEDS: THIAMINE HCL 100 MG TABLET PO (12:40)
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
--- NOTE | 2023-02-19 06:53 | WPDANESPN ---
Anes - Prog Note Post-Op Date/Time: 02/19/23 06:53 Cardiovascular status: normal Respiratory status: normal Airway patency: baseline Mental status: baseline Post-Op hydration status: normal Vital Signs: Last Vital Signs Temp 36.4 C 02/18/23 12:40 Pulse 108 H 02/18/23 12:40 Resp 18 02/18/23 12:40 BP 127/70 02/18/23 12:40 Pulse Ox 92 02/18/23 12:40 O2 Del Method Room Air 02/18/23 10:30 O2 Flow Rate 8 02/18/23 10:00 Pain Score (VAS): 3 I/O: Intake & Output 02/18/23 02/18/23 02/19/23 15:59 23:59 07:59 Intake Total 590 Output Total 1150 Balance -560 Laboratory Tests 02/18/23 05:05 02/18/23 05:05 Post-procedural complaints: none Patient Feedback: Patient satisfied with anesthetic care.
== END 2023-02-18 15:30 | disposition home or self-care (01) ==
LOC: ANHED 23:22 → ANH2MED 23:32
PROVIDERS: Internal Medicine; Admitting Provider Orthopaedic Surgery; Emergency Provider Student in an Organized Health Care Education/Training Program; PCP Nurse Practitioner Family; Visit Provider Orthopaedic Surgery
PROC: (CPT 25575; principal; 2023-02-18 07:30)
DX: S52.552A Other extraarticular fracture of lower end of left radius, initial encounter for closed fracture (principal); V49.40XA Driver injured in collision with unspecified motor vehicles in traffic accident, initial encounter; S20.01XA Contusion of right breast, initial encounter; Y90.6 Blood alcohol level of 120-199 mg/100 ml; F41.9 Anxiety disorder, unspecified; I10 Essential (primary) hypertension; E66.01 Morbid (severe) obesity due to excess calories; M47.812 Spondylosis without myelopathy or radiculopathy, cervical region; K44.9 Diaphragmatic hernia without obstruction or gangrene; Z98.84 Bariatric surgery status; Z68.44 Body mass index [BMI] 60.0-69.9, adult; F10.220 Alcohol dependence with intoxication, uncomplicated; Z79.85 Long-term (current) use of injectable non-insulin antidiabetic drugs; Z79.899 Other long term (current) drug therapy; Z87.891 Personal history of nicotine dependence
CPT/HCPCS: 25607; 25605; 25624; 36415; 70450; 71045; 71260; 72125; 73090; 73100; 74177; 80053; 80307; 82607; 82746; 83735; 84484; 85025; 85027; 85610; 85730; 86850; 86900; 86901; 93005; 96361; 96374; 96375; 96376; 99199; 99285; A9270; C1713; G0378; J0690; J2270; J2405; J2704; J3010; J3411; J7030; J7120; Q9967

== ENCOUNTER → 2023-03-01 14:44 | Outpatient (CLI) | payer OTHER, SELFPAY ==
--- NOTE | ~2023-03-01 | XR_ITS ---
EXAM: XR wrist LT 2V DATE: 03/01/2023 15:11 HISTORY: FRACTURE OF CARPL BONE . COMPARISON: 02/16/2023; 02/18/2023. FINDINGS: Osseous detail obscured by overlying cast material. Skin jamie over the distal forearm. Screw and plate fixation of the comminuted distal left radial fracture, into near-anatomic alignment. Mild residual displacement of several nondominant bone fragments. No unexpected radiopaque foreign b tiffany. IMPRESSION: Status post ORIF of the distal left radial fracture. No radiographic evidence of procedur e or hardware related complication. Reviewed, dictated and finalized at location K. NTORY TAKER IMPRESSION: Status post ORIF of the distal left radial fracture. No radiographi c evidence of procedure or hardware related complication.
== END ==
PROVIDERS: PCP Orthopaedic Surgery; Visit Provider Orthopaedic Surgery
DX: S62.102D Fracture of unspecified carpal bone, left wrist, subsequent encounter for fracture with routine healing (principal); X58.XXXD Exposure to other specified factors, subsequent encounter
CPT/HCPCS: 73100

== ENCOUNTER 2023-04-21 10:37 | Outpatient (CLI) | payer OTHER, SELFPAY ==
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
== END 2023-04-21 10:38 | disposition home or self-care (01) ==
LOC: ANHIMG 10:43
PROVIDERS: PCP Nurse Practitioner Family; Visit Provider Surgery
DX: N64.89 Other specified disorders of breast (principal); N64.4 Mastodynia
CPT/HCPCS: 76642; 77062; 77066; G0279

== ENCOUNTER 2023-04-27 00:39 | Day surgery (SDC) | payer OTHER, SELFPAY ==
[2023-04-24 10:34] VITALS: BMI 59.3
--- NOTE | 2023-04-24 10:40 | PC.NURSE ---
Report to the Outpatient Waiting Room, entrance under the green pavilion located off [address], at time 6:00 on date 04/27/23. Planned Procedure Time: 7:30. Time changes happen often and if your time is changed the preop area will call you the afternoon before. - You and your visitor will be asked to self-screen and do not enter if you have any COVID symptoms. - A mask is optional within the hospital at this time. Patients may have clear liquids (water, carbonated beverages, clear teas, apple juice) until 3 hours prior to surgery (4:30) with a maximum of 20 ounces. - No food from midnight until time of surgery Take the following medications with a SIP of water the morning of surgery: METOPROLOL, VENLAFAXINE DO NOT STOP ANY OF YOUR OTHER PRESCRIPTION MEDICATIONS PRIOR TO SURGERY ?EXCEPT THE FOLLOWING Medications to discontinue per physician: VITAMINS, WEGOVY Date to take last dose: NO MORE UNTIL AFTER SURGERY Please no make-up, nail [place], hairspray, perfume, deodorant, or body powder the day of surgery. No jewelry (including any body piercings) or valuables the day of surgery, leave them at home. Please take a shower or bath the night before, or the morning of, surgery with an antibacterial soap. Wear comfortable, loose fitting clothing. - Jewelry must be removed prior to entering the operating room. Rings and piercings that are not removed may be cut off. - The hospital will not accept responsibility for valuables. - Please leave all valuables, including medications, at home the day of surgery. If you are going home after surgery, a licensed cart driver must drive you home. - NO public transportation without another adult if you receive anesthesia. - We recommend that an adult stay with you for 24 hours following discharge. - We also recommend that you do not drive, make important decision, drink alcoholic beverages, or take any drugs that were not prescribed by your health care provider for at least 24 hours after your discharge time. Follow any additional instructions given to you from your surgeon. If you or anyone in your household have experienced Covid symptoms in the past week, please notify your surgeon or the nurse liaison at the phone number below for possible testing. Telephone instructions given to PT - JUJU BRANCH and asked if any additional questions and then verbalized understanding. Patient advised to call surgeon office or pre surgery nurse liaison [phone] if any additional questions.
[2023-04-27] VITALS (10 sets, daily range): BP systolic 133–172; BP diastolic 82–106; PULSE 66–77; RESP 12–18; TEMP 36.7–37.1; O2SAT 100
[2023-04-27] MEDS: LACTATED RINGERS 1,000 ML 30 ML IV CONT (07:00)
--- NOTE | 2023-04-27 07:01 | WPDHPUPDATE1 ---
History and Physical Update Update Date/Time: 04/27/23 07:01 History and Physical has been reviewed, including an updated exam of the patient. There are NO changes in the patient's condition. Risks, benefits, and alternatives have been discussed and questions answered. Patient agrees to proceed with procedure.
--- NOTE | 2023-04-27 07:14 | WPDANESEPPF ---
Anes - Initial Pre Proc Eval Procedure: Operation Date: 04/27/23 07:30 Proposed Procedures p Incision and Drainage Large Right Breast Hematoma/Seroma, Possible Adjacent Tissue Transfer - Janie Zamora MD Date/Time: 04/27/23 07:14 Surgeon: Janie Zamora MD Pre Op Diagnosis: mastodynia right breast Patient Data Age: 53 Gender: F Height: 1.6 m Weight: 156.7 kg Last Vital Signs Temp 98.7 F 04/27/23 07:10 Pulse 73 04/27/23 07:10 Resp 18 04/27/23 07:10 BP 172/97 H 04/27/23 07:10 Pulse Ox 100 04/27/23 07:10 O2 Del Method Room Air 04/27/23 07:10 Allergies Allergy/AdvReac Type Severity Reaction Status Date / Time Corticosteroids Allergy Unknown Swelling Verified 04/27/23 06:24 (Glucocorticoids) of Lip/Tongue/Throat Penicillins Allergy Unknown Anaphylaxis Verified 04/27/23 06:24 poppyseed oil Allergy Unknown Swelling Verified 04/27/23 06:24 of Lip/Tongue/Throat Home Medications Medication Instructions Recorded Confirmed Type furosemide 40 mg tablet 60 mg PO DAILY 11/28/19 04/26/23 History venlafaxine 75 mg capsule,extended 150 mg PO DAILY 11/28/19 04/26/23 History release 24 hr alprazolam 0.5 mg tablet 0.5 mg PO HS PRN Sleep 07/05/22 04/26/23 History cholecalciferol (vitamin D3) 1,250 1,250 mcg PO WEEKLY 07/05/22 04/26/23 History mcg (50,000 unit) capsule metoprolol tartrate 50 mg tablet 50 mg PO BID 07/05/22 04/26/23 History potassium chloride 20 mEq 20 meq PO DAILY 07/05/22 04/26/23 History tablet,extended release(part/cryst) semaglutide (weight loss) 0.5 0.5 mg subcut WEEKLY 07/05/22 04/26/23 History mg/0.5 mL subcutaneous pen injector (Wegovy) trazodone 50 mg tablet 50 mg PO HS PRN Sleep 07/05/22 04/26/23 History aspirin 81 mg capsule 81 mg PO DAILY 02/17/23 04/26/23 History oxybutynin chloride 5 mg tablet 5 mg PO BID 02/17/23 04/26/23 History Laboratory Tests 04/27/23 07:03 Sodium Pending Potassium Pending Chloride Pending Carbon Dioxide Pending Anion Gap Pending BUN Pending Creatinine Pending Estim Creat Clear Calc Pending Estimated GFR Pending Glucose Pending Calcium Pending Patient hx anesthesia problems: none Family hx anesthesia problems: none Results Review: All pre-operative results and documents have been reviewed as part of the pre-operative evaluation. [facility] Past Medical History Medical History Alcoholism Anxiety Hypertension Migraine Morbid obesity with BMI of 60.0-69.9, adult Peripheral neuropathy Urge urinary incontinence Surgical History Surgical History (Updated 04/26/23 @ 09:17 by Marysol Sagastume CMA) Delivery by section History of gastric bypass (~2016) History of surgery on left wrist ORIF Left wrist- 02/18/23 Normal colonoscopy (~2019) Family History Family History Other Alcoholism Family history of arthritis Family history of mental disorder Hypertension Social History Social History (Updated 03/29/23 @ 09:45 by Marysol Sagastume CMA) Social History: She has been for 25 years. She has 1 son who is in his 30s. 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 Smoking packs per day: 1 Smoking cigarettes per day: 20.0 Years smoked: 15 Smoking pack-years: 15.00 Smoking status: Former smoker Tobacco type: cigarettes Smoking end date: 03/06/16 Alcohol intake: former Drinks per week: 3 Alcohol use details: Quit 02/16/23. Substance use: never Substance use type: does not use Do You Feel Safe in your Home?: Yes Lack of Transportation: No Lack of Food: Never True Current Housing: I Have Housing Concerned About Future Housing: No Difficulty Paying Gas/Electric Bills: No Difficulty Paying for Meds: No Currently Unemployed: YES Education: [employer]
[2023-04-27 07:23] LABS: Anion Gap 7 mmol/L (8-16); Blood Urea Nitrogen 13 mg/dL (7-17); Carbon Dioxide 26 mmol/L (22-30); Chloride 102 mmol/L (98-107); Estimated CRCL calculation 134 ml/min; Estimated Glomerular Filt Rate > 60; Glucose 105 mg/dL (65-110); Potassium 3.9 mmol/L (3.4-5.0); Sodium 135 mmol/L (137-145)
[2023-04-27] MEDS: ceFAZolin 3 GM/D5W 100 ML 100 ML IVPB (07:35)
[2023-04-27] MEDS: BUPivacaine HCL 0.5% PF 30 ML VIAL INFILTRATE (08:26)
--- NOTE | 2023-04-27 08:43 | P.OP_ITS ---
Procedure Note - Detailed Date of Procedure 04/27/23 Pre-op Diagnosis Large right breast old hematoma Post-op Diagnosis Same Procedure Performed Incision and drainage of right breast old hematoma Washout of right breast wound, drain placement Surgeon Janie Zamora MD Anesthesia General Description of Procedure Patient was identified in the preoperative holding area brought to the operating room suite. She was laid supine in the operating table and sequential compression devices were applied. General anesthesia was induced without difficulty. The right chest area was prepped and draped in a sterile fashion. A 18 gauge syringe was inserted into the breast and approximately 60 cc of dark old hematoma fluid was aspirated from the cavity and sent to cytology for analysis. A small curvilinear incision was made in the upper lateral part of the breast and dissection was carried down through the subcutaneous tissue into the breast tissue until the hematoma cavity was encountered. I proceeded to aspirate approximately 1160cc of dark hematoma fluid in addition to approximately 2-300 cc there were caught he in lap pads around the suction device, for a total of approximately 1400 cc of hematoma fluid evacuated. The cavity was explored and all the loculations were broken up with blunt dissecti on. The wound was copiously irrigated with 3 L of saline and hemostasis was assured. A 10 Fr flat drain was placed on the lateral aspect of the breast into the cavity and secured to the skin with a silk suture. The incision was then closed with a running 3-0 Vicryl for the intraparenchymal layer, followed by 3-0 Vicryl interrupted for a deep dermals and 4-0 Monocryl in a subcuticular fashion. Dermabond was applied followed by Steri-Strips and a sterile compression dressing. A compression supportive bra was placed and patient was awoken from anesthesia and taken to the recovery area in stable condition. All needles, instruments, and sponge counts were correct as reported by the operating staff. Patient tolerated the procedure well with no immediate complications. Estimated Blood Loss 20 Drains Yes Pathology Yes Complications No immediate complications Condition Stable Disposition PACU [facility] Billing Surgery - Charge Forward: Surgery Billing (CPT 76150, [id number])
[2023-04-27] MEDS: oxyCODONE HCL (*CRX) 5 MG TAB IR PO (10:21)
== END 2023-04-27 11:11 | disposition home or self-care (01) ==
PROVIDERS: Anesthesiology; PCP Nurse Practitioner Family; Visit Provider Surgery
PROC: (CPT 10140; principal; 2023-04-27 07:30)
DX: S20.01XA Contusion of right breast, initial encounter (principal); V49.9XXA Car occupant (driver) (passenger) injured in unspecified traffic accident, initial encounter; I10 Essential (primary) hypertension; G62.9 Polyneuropathy, unspecified; F41.9 Anxiety disorder, unspecified; E66.01 Morbid (severe) obesity due to excess calories; Z68.44 Body mass index [BMI] 60.0-69.9, adult; Z98.84 Bariatric surgery status; Z87.891 Personal history of nicotine dependence; Z79.85 Long-term (current) use of injectable non-insulin antidiabetic drugs; Z79.82 Long term (current) use of aspirin
CPT/HCPCS: 10140; 36415; 80048; 88108; 88305; A9270; J0690; J1100; J2250; J2405; J2704; J3010; J7120

== ENCOUNTER 2023-08-03 11:56 | Outpatient (CLI) | payer OTHER, SELFPAY ==
--- NOTE | ~2023-08-03 | XR_ITS ---
Left Knee Technique: AP, lateral, and sunrise views were obtained. Clinical History: Pain Findings: No fracture or dislocation is seen. Osseous alignment is anatomic. There is moderate tricom partmental degenerative change. Probable enthesopathic change at the distal quadriceps tendon inserti on or other heterotopic mass lesion. Soft tissues are otherwise unremarkable. No joint effusion is se en. Impression: Moderate tricompartmental degenerative change, as above. Reviewed, dictated and finalized at location . Impression: Moderate tricompartmental degenerative change, as above.
--- NOTE | ~2023-08-03 | XR_ITS ---
Right Knee Technique: AP, lateral, and sunrise views were obtained. Clinical History: Pain Findings: No fracture or dislocation is seen. There is minimal tricompartmental degenerative change. Mild diffuse subcutaneous soft tissue edema noted. No joint effusion is seen. Impression: Mild tricompartmental degenerative change. Mild diffuse subcutaneous soft tissue edema. Reviewed, dictated and finalized at [facility]. Impression: Mild tricompartmental degenerative change. Mild diffuse subcutaneous soft tissue edema.
== END 2023-08-03 11:57 ==
LOC: MICIMG 11:58
PROVIDERS: PCP Nurse Practitioner Family; Visit Provider Nurse Practitioner Family
DX: M17.0 Bilateral primary osteoarthritis of knee (principal); M25.461 Effusion, right knee; G89.29 Other chronic pain
CPT/HCPCS: 73562; 73564

== ENCOUNTER 2023-12-21 10:03 | Emergency (ER) | payer OTHER, SELFPAY ==
--- NOTE | ~2023-12-21 | XR_ITS ---
XR shoulder RT min 2V 12/21/2023 10:59 Indication: Right shoulder pain after abnormal popping sensation. Decreased range of motion. Procedure: 4 views right shoulder Comparison: No prior studies for comparison. Findings: There is an anterior shoulder dislocation. There is an ossific fragment overlying the gleno id process, suspicious for glenoid fracture. Acromioclavicular joint is in anatomic alignment with mi ld degenerative change. Impression: 1: Right anterior shoulder dislocation with probable fracture of the glenoid process. Reviewed, dictated and finalized at location B. Impression: 1: Right anterior shoulder dislocation with probable fracture of the glenoid pr ocess.
[2023-12-21 10:16] VITALS: BP 155/96; PULSE 82; RESP 20; TEMP 37.1; O2SAT 96
--- NOTE | 2023-12-21 10:40 | ED.UPPEXIN ---
HPI - Extremity Injury (Upper) General Chief Complaint: Extremity Injury, Upper Stated Complaint: Right Shoulder Pain Time Seen by Provider: 12/21/23 10:40 Source: patient Mode of arrival: ambulatory Limitations: no limitations History of Present Illness HPI narrative: 53 yo F presents with R shoulder pain. Last night patient was holding onto top of shower while getting out and her L foot slipped causing her body to pull on R shoulder and heard a pop. Pt reports pain and decreased ROM worse this AM. distal NV intact. Pt caught herself, did not fall. all systems reviewed and negative except as noted above. Related Data Home Medications Medication Instructions Recorded Confirmed furosemide 40 mg tablet 60 mg PO DAILY 11/28/19 12/21/23 venlafaxine 75 mg capsule,extended 150 mg PO DAILY 11/28/19 12/21/23 release 24 hr alprazolam 0.5 mg tablet 0.5 mg PO HS PRN Sleep 07/05/22 12/21/23 cholecalciferol (vitamin D3) 1,250 1,250 mcg PO WEEKLY 07/05/22 12/21/23 mcg (50,000 unit) capsule metoprolol tartrate 50 mg tablet 50 mg PO BID 07/05/22 12/21/23 potassium chloride 20 mEq 20 meq PO DAILY 07/05/22 12/21/23 tablet,extended release(part/cryst) trazodone 50 mg tablet 50 mg PO HS PRN Sleep 07/05/22 12/21/23 aspirin 81 mg capsule 81 mg PO DAILY 02/17/23 12/21/23 oxybutynin chloride 5 mg tablet 5 mg PO BID 02/17/23 12/21/23 gabapentin 300 mg capsule 300 mg PO TID 09/05/23 12/21/23 benzonatate 100 mg capsule 100 mg PO DIRECTED 12/21/23 12/21/23 Allergies Allergy/AdvReac Type Severity Reaction Status Date / Time Penicillins Allergy Unknown Anaphylaxis Verified 12/21/23 10:10 poppyseed oil Allergy Unknown Swelling Verified 12/21/23 10:10 of Lip/Tongue/Throat Review of Systems Review of Systems: CONSTITUTIONAL: Denies fever, chills, or sweats. EYES: Denies visual changes, redness, or discharge. ENT: Denies rhinorrhea, congestion, sore throat, or otalgia. CARDIOVASCULAR: Denies chest pain, palpitations, or edema. RESPIRATORY: Denies cough or dyspnea. GASTROINTESTINAL: Denies abdominal pain, nausea, vomiting, or diarrhea. GENITOURINARY: Denies dysuria or hematuria. SKIN: Denies rash or itching. MUSCULOSKELETAL: Patient reports pain to right shoulder. NEUROLOGIC: Denies headache, numbness, or weakness. PSYCHIATRIC: Denies anxiety or depression. All other systems reviewed are negative, except as documented in HPI. [facility] Past Medical History Medical History Alcoholism Anxiety Hypertension Migraine Morbid obesity with BMI of 60.0-69.9, adult Peripheral neuropathy Urge urinary incontinence Surgical History Surgical History Delivery by section H/O breast surgery 05/04/23 hematoma removed History of gastric bypass (~2016) History of surgery on left wrist ORIF Left wrist- 02/18/23 Normal colonoscopy (~2019) Family History Family History Other Alcoholism Family history of arthritis Family history of mental disorder Hypertension Social History Social History Social History: She has been for 25 years. She has 1 son who is in his 30s. 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 Smoking status: Former smoker Tobacco type: cigarettes Smoking end date: 03/06/16 Alcohol intake: former Drinks per week: 3 Alcohol use details: Quit 02/16/23. Substance use: never Substance use type: does not use Do You Feel Safe in your Home?: Yes Lack of Transportation: No Lack of Food: Never True Current Housing: I Have Housing Concerned About Future Housing: No Difficulty Paying Gas/Electric Bills: No Difficulty Paying for Meds: No Currently Unemployed: YES Education: Trade/Vocational Certificate Difficulty w/ Childcare or Family Care: No Living arrangements: with fam
== END 2023-12-21 11:25 | disposition short-term general hospital (02) ==
PROVIDERS: Emergency Provider Nurse Practitioner Family; PCP Nurse Practitioner Family
DX: S43.004A Unspecified dislocation of right shoulder joint, initial encounter (principal); W18.49XA Other slipping, tripping and stumbling without falling, initial encounter; Z79.82 Long term (current) use of aspirin; I10 Essential (primary) hypertension; E66.01 Morbid (severe) obesity due to excess calories; Z68.44 Body mass index [BMI] 60.0-69.9, adult; G62.9 Polyneuropathy, unspecified; Z98.84 Bariatric surgery status; F41.9 Anxiety disorder, unspecified
CPT/HCPCS: 73030; 99213; A4565; G0463

== ENCOUNTER 2023-12-21 11:55 | Day surgery (SDC) | payer OTHER, SELFPAY ==
[2023-12-21] VITALS (12 sets, daily range): BP systolic 130–178; BP diastolic 61–97; PULSE 76–87; RESP 14–22; TEMP 36.1–36.7; O2SAT 90–100
--- NOTE | ~2023-12-21 | XR_ITS ---
EXAMINATION: XR shoulder RT 1V DATE: 12/21/2023 14:19 INDICATION: Right shoulder dislocation status post reduction. TECHNIQUE: A single view of right shoulder was obtained. COMPARISON: Right shoulder radiographs 10:53 AM FINDINGS: There is an anterior right shoulder dislocation. There is an impaction fracture deformity o f posterolateral aspect of humeral head (Hill-Sachs fracture). There is a fracture of anteroinferior glenoid (bony Bankart lesion). There is severe acromioclavicular joint osteoarthritis. IMPRESSION: 1. Persistent anterior right shoulder dislocation. 2. Hill-Sachs fracture deformity. 3. Bony Bankart lesion. 4. Severe acromioclavicular joint osteoarthritis. Reviewed, dictated and finalized at location A.
--- NOTE | ~2023-12-21 | XR_ITS ---
EXAMINATION: XR fluoroscopy no charge DATE: 12/21/2023 16:31 INDICATION: Right shoulder dislocation. TECHNIQUE: 2 intraoperative fluoroscopic views of right shoulder were obtained. I was not present. Fl uoroscopy exposure time was 8 seconds. COMPARISON: Right shoulder radiographs 02/20/2024 FINDINGS: There is normal alignment of the glenohumeral joint after manipulation. There is an impacti on fracture deformity of posterolateral humeral head (Hill-Sachs fracture deformity). IMPRESSION: 1. Normal alignment at glenohumeral joint. 2. Hill-Sachs fracture deformity. Reviewed, dictated and finalized at location A.
--- NOTE | 2023-12-21 13:08 | ED.UPPEXIN ---
HPI - Extremity Injury (Upper) General Chief Complaint: Extremity Injury, Upper <Sharyn Corcoran PA-C - Last Filed: 12/21/23 14:57> Stated Complaint: R shoulder injury <HAYLEY Abebe Last Filed: 12/21/23 14:57> Time Seen by Provider: 12/21/23 12:45 <HAYLEY Abebe Last Filed: 12/21/23 14:57> Source: patient <HAYLEY Abebe Last Filed: 12/21/23 14:57> Mode of arrival: ambulatory <HAYLEY Abebe Last Filed: 12/21/23 14:57> Limitations: no limitations <HAYLEY Abebe Last Filed: 12/21/23 14:57> History of Present Illness HPI narrative: Patient is a 53-year-old female who presents the ED with report of right shoulder pain. Patient reports she slipped in the shower last night. She was holding on to the top of the shower stall with her right hand and felt a pop in her right shoulder. She was not evaluated last night, but complained of worsening pain and decreased range of motion to shoulder this morning which prompted her to go to an urgent care. X-ray there showed anterior shoulder dislocation with possible glenoid process fracture. She was then sent here for further evaluation. Denies numbness. Denies any other injuries. Had recent L wrist fracture, seen by Dr. Encarnacion, had tissue issue reportedly seen at [facility] for this. <Sharyn Corcoran PA-C - Last Filed: 12/21/23 14:57> Related Data Home Medications: Home Medications Medication Instructions Recorded Confirmed furosemide 40 mg tablet 60 mg PO DAILY 11/28/19 12/21/23 venlafaxine 75 mg capsule,extended 150 mg PO DAILY 11/28/19 12/21/23 release 24 hr alprazolam 0.5 mg tablet 0.5 mg PO HS PRN Sleep 07/05/22 12/21/23 cholecalciferol (vitamin D3) 1,250 1,250 mcg PO WEEKLY 07/05/22 12/21/23 mcg (50,000 unit) capsule metoprolol tartrate 50 mg tablet 50 mg PO BID 07/05/22 12/21/23 potassium chloride 20 mEq 20 meq PO DAILY 07/05/22 12/21/23 tablet,extended release(part/cryst) trazodone 50 mg tablet 50 mg PO HS PRN Sleep 07/05/22 12/21/23 aspirin 81 mg capsule 81 mg PO DAILY 02/17/23 12/21/23 oxybutynin chloride 5 mg tablet 5 mg PO BID 02/17/23 12/21/23 gabapentin 300 mg capsule 300 mg PO TID 09/05/23 12/21/23 benzonatate 100 mg capsule 100 mg PO DIRECTED 12/21/23 12/21/23 <Sharyn Corcoran PA-C - Last Filed: 12/21/23 14:57> Allergies/Adverse Reactions: Allergies Allergy/AdvReac Type Severity Reaction Status Date / Time Penicillins Allergy Unknown Anaphylaxis Verified 12/21/23 15:18 poppyseed oil Allergy Unknown Swelling Verified 12/21/23 15:18 of Lip/Tongue/Throat <Sharyn Corcoran PA-C - Last Filed: 12/21/23 14:57> Review of Systems Review of Systems: All systems reviewed & are unremarkable except as noted in HPI. <Sharyn Corcoran PA-C - Last Filed: 12/21/23 14:57> All systems reviewed & are unremarkable except as noted in HPI and below <Sharyn Corcoran PA-C - Last Filed: 12/21/23 14:57> [facility] Past Medical History Medical History: Medical History Alcoholism Anxiety Hypertension Migraine Morbid obesity with BMI of 60.0-69.9, adult Peripheral neuropathy Urge urinary incontinence <Sharyn Corcoran PA-C - Last Filed: 12/21/23 14:57> Surgical History Surgical History: Surgical History Delivery by section H/O breast surgery 05/04/23 hematoma removed History of gastric bypass (~2016) History of surgery on left wrist ORIF Left wrist- 02/18/23 Normal colonoscopy (~2019) <Sharyn Corcoran PA-C - Last Filed: 12/21/23 14:57> Family History Family History: Family History Other Alcoholism Family history of arthritis Family history of mental disorder Hypertension
[2023-12-21] MEDS: HYDROmorphone HCL INJ (*CRX) 1 MG/ML SYR 0.5 MG IV PUSH (13:36)
[2023-12-21] MEDS: ONDANSETRON INJ 4 MG/2 ML VIAL IV PUSH (13:36)
--- NOTE | 2023-12-21 14:25 | PC.NURSE ---
Dr. Mariano administered first dose of Propofol 100mg IV at 1404. patient was still tense and awake after this. another dose of 30mg was administered at 1405. patient was still arousable and tense. a third dose of 30mg was administered by at 1407. vitals at this time was hr 83, 93% O2 on 5L nasal cannula, respirations 24, and bp 156/97
--- NOTE | 2023-12-21 14:38 | WPDANESEPPF ---
Anes - Initial Pre Proc Eval Procedure: Operation Date: 12/21/23 15:30 Proposed Procedures p Right Shoulder Manipulation Under Anesthesia - Trung Encarnacion MD Date/Time: 12/21/23 14:38 Pre Op Diagnosis: R shoulder injury Patient Data Age: 53 Gender: F Height: 1.57 m Weight: 160 kg Last Vital Signs Temp 36.5 C 12/21/23 14:22 Pulse 77 12/21/23 11:58 Resp 20 12/21/23 14:22 BP 172/97 H 12/21/23 14:22 Pulse Ox 99 12/21/23 14:22 O2 Del Method Nasal Cannula 12/21/23 14:22 O2 Flow Rate 1 12/21/23 14:22 Allergies Allergy/AdvReac Type Severity Reaction Status Date / Time Penicillins Allergy Unknown Anaphylaxis Verified 12/21/23 12:00 poppyseed oil Allergy Unknown Swelling Verified 12/21/23 12:00 of Lip/Tongue/Throat Home Medications Medication Instructions Recorded Confirmed Type furosemide 40 mg tablet 60 mg PO DAILY 11/28/19 12/21/23 History venlafaxine 75 mg capsule,extended 150 mg PO DAILY 11/28/19 12/21/23 History release 24 hr alprazolam 0.5 mg tablet 0.5 mg PO HS PRN Sleep 07/05/22 12/21/23 History cholecalciferol (vitamin D3) 1,250 1,250 mcg PO WEEKLY 07/05/22 12/21/23 History mcg (50,000 unit) capsule metoprolol tartrate 50 mg tablet 50 mg PO BID 07/05/22 12/21/23 History potassium chloride 20 mEq 20 meq PO DAILY 07/05/22 12/21/23 History tablet,extended release(part/cryst) trazodone 50 mg tablet 50 mg PO HS PRN Sleep 07/05/22 12/21/23 History aspirin 81 mg capsule 81 mg PO DAILY 02/17/23 12/21/23 History oxybutynin chloride 5 mg tablet 5 mg PO BID 02/17/23 12/21/23 History gabapentin 300 mg capsule 300 mg PO TID 09/05/23 12/21/23 History benzonatate 100 mg capsule 100 mg PO DIRECTED 12/21/23 12/21/23 History Patient hx anesthesia problems: none Family hx anesthesia problems: none Results Review: All pre-operative results and documents have been reviewed as part of the pre-operative evaluation. [facility] Past Medical History Medical History Alcoholism Anxiety Hypertension Migraine Morbid obesity with BMI of 60.0-69.9, adult Peripheral neuropathy Urge urinary incontinence Surgical History Surgical History Delivery by section H/O breast surgery 05/04/23 hematoma removed History of gastric bypass (~2016) History of surgery on left wrist ORIF Left wrist- 02/18/23 Normal colonoscopy (~2019) Family History Family History Other Alcoholism Family history of arthritis Family history of mental disorder Hypertension Social History Social History Social History: She has been for 25 years. She has 1 son who is in his 30s. 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 Smoking status: Former smoker Tobacco type: cigarettes Smoking end date: 03/06/16 Alcohol intake: former Drinks per week: 3 Alcohol use details: Quit 02/16/23. 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 Gender identity (if verbalized by the patient): Female Spiritual care concerns: No Anes - Eval Final PreProcedure Day of Procedure 12/21/23 14:38 Patient weight: morbidly obese Heart: regular rate and rhythm Lungs: clear to auscultation Airway: Mallampati scale class III Neurological: alert and oriented Last oral intake: >
--- NOTE | 2023-12-21 14:49 | PC.NURSE ---
gave care and report to AGUILAR Lin at 1444. all questions answered. pt taken to OR 11 via stretcher by OFELIA Alvares.
--- NOTE | 2023-12-21 14:51 | PM.IMHP ---
H&P: HPI History of Present Illness Date/Time: 12/21/23 14:51 Chief Complaint: Patient fell in the shower yesterday and suffered a dislocation of her right shoulder. She is unable to raise her arm above the horizontal. She has pain with any manipulation. Review of Systems Review of Systems: All systems reviewed & are unremarkable except as noted in HPI and below Musculoskeletal: Musculoskeletal: Reports arthralgias, Reports joint swelling and Reports stiffness [facility] Past Medical History Medical History Alcoholism Anxiety Hypertension Migraine Morbid obesity with BMI of 60.0-69.9, adult Peripheral neuropathy Urge urinary incontinence Surgical History Surgical History Delivery by section H/O breast surgery 05/04/23 hematoma removed History of gastric bypass (~2016) History of surgery on left wrist ORIF Left wrist- 02/18/23 Normal colonoscopy (~2019) Family History Family History Other Alcoholism Family history of arthritis Family history of mental disorder Hypertension Social History Social History Social History: She has been for 25 years. She has 1 son who is in his 30s. 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 Smoking status: Former smoker Tobacco type: cigarettes Smoking end date: 03/06/16 Alcohol intake: former Drinks per week: 3 Alcohol use details: Quit 02/16/23. 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 Gender identity (if verbalized by the patient): Female Spiritual care concerns: No Meds Home Medications and Allergies Home Medications Medication Instructions Recorded Confirmed Type furosemide 40 mg tablet 60 mg PO DAILY 11/28/19 12/21/23 History venlafaxine 75 mg capsule,extended 150 mg PO DAILY 11/28/19 12/21/23 History release 24 hr alprazolam 0.5 mg tablet 0.5 mg PO HS PRN Sleep 07/05/22 12/21/23 History cholecalciferol (vitamin D3) 1,250 1,250 mcg PO WEEKLY 07/05/22 12/21/23 History mcg (50,000 unit) capsule metoprolol tartrate 50 mg tablet 50 mg PO BID 07/05/22 12/21/23 History potassium chloride 20 mEq 20 meq PO DAILY 07/05/22 12/21/23 History tablet,extended release(part/cryst) trazodone 50 mg tablet 50 mg PO HS PRN Sleep 07/05/22 12/21/23 History aspirin 81 mg capsule 81 mg PO DAILY 02/17/23 12/21/23 History oxybutynin chloride 5 mg tablet 5 mg PO BID 02/17/23 12/21/23 History gabapentin 300 mg capsule 300 mg PO TID 09/05/23 12/21/23 History benzonatate 100 mg capsule 100 mg PO DIRECTED 12/21/23 12/21/23 History Allergies Allergy/AdvReac Type Severity Reaction Status Date / Time Penicillins Allergy Unknown Anaphylaxis Verified 12/21/23 12:00 poppyseed oil Allergy Unknown Swelling Verified 12/21/23 12:00 of Lip/Tongue/Throat Vital Signs Vital Signs - 24 hr 12/21/23 11:58 12/21/23 14:04 12/21/23 14:04 Temperature 97.8 F 98.0 F Pulse Rate 77 Respiratory Rate 16 18 22 H Blood Pressure 178/93 H Blood Pressure [Left Radial Artery] 146/79 H Pulse Oximetry 98 97 97 Oxygen Delivery Room Air Nasal Cannula Oxygen Flow Rate 1 12/21/23 14:09 12/21/23 14:07 12/21/23 14:22 Temperature 97.8 F 97.9 F 97.7 F Pulse Rate Respiratory Rate 17 17 20 Blood Pressure Blood Pressure [Le
--- NOTE | 2023-12-21 14:55 | WPDHPUPDATE1 ---
History and Physical Update Update Date/Time: 12/21/23 14:55 History and Physical has been reviewed, including an updated exam of the patient. There are NO changes in the patient's condition. Risks, benefits, and alternatives have been discussed and questions answered. Patient agrees to proceed with procedure.
--- NOTE | 2023-12-21 15:43 | W.PM.PROC2 ---
Procedure Note - Detailed Date of Procedure 12/21/23 Pre-op Diagnosis R shoulder injury Anterior dislocation Post-op Diagnosis Same Procedure Performed Reduction under general anesthetic Surgeon Trung Encarnacion MD Anesthesia General Description of Procedure Patient brought to operating room 5. A general anesthetic was administered. After she had relaxation, the shoulder was gently manipulated back to its normal position. The shoulder was seemed reasonably stable at this point. She was placed in a shoulder immobilizer. She left the operating room in reasonable condition. Complications No immediate complications Condition Stable Disposition PACU [facility] Billing Surgery - Charge Forward: Surgery Billing (65918 Reduction under anesthesia)
[2023-12-21] MEDS: LACTATED RINGERS 1,000 ML 30 ML IV CONT (15:52)
== END 2023-12-21 17:35 | disposition home or self-care (01) ==
LOC: ANHED 14:39 → ANHSURGERY 14:40
PROVIDERS: Emergency Provider Physician Assistant; PCP Nurse Practitioner Family; Visit Provider Orthopaedic Surgery
PROC: (CPT 23655; principal; 2023-12-21 15:30)
DX: S43.014A Anterior dislocation of right humerus, initial encounter (principal); W18.49XA Other slipping, tripping and stumbling without falling, initial encounter; I10 Essential (primary) hypertension; G62.9 Polyneuropathy, unspecified; F41.9 Anxiety disorder, unspecified; E66.01 Morbid (severe) obesity due to excess calories; Z68.44 Body mass index [BMI] 60.0-69.9, adult; Z98.84 Bariatric surgery status; Z79.82 Long term (current) use of aspirin; Z87.891 Personal history of nicotine dependence
CPT/HCPCS: 23655; 23605; 73020; 73030; 96374; 96375; 99199; 99285; A4565; J0330; J1100; J1171; J2003; J2250; J2405; J2704; J3010; J7120

== ENCOUNTER 2023-12-24 10:28 | Emergency (ER) | payer OTHER, SELFPAY ==
[2023-12-24 10:30] VITALS: BP 170/94; PULSE 72; RESP 21; TEMP 36.6; O2SAT 93
--- NOTE | 2023-12-24 11:35 | ED.GENADULT ---
HPI - General Adult General Chief complaint: Dental/Oral Stated complaint: L sided jaw swelling Time Seen by Provider: 12/24/23 11:12 History of Present Illness HPI narrative: 53-year-old female present to the emergency department for evaluation for left-sided facial swelling. Patient does have follow-up with her dentist tomorrow. Patient is not currently on any antibiotics. Related Data Home Medications Medication Instructions Recorded Confirmed furosemide 40 mg tablet 60 mg PO DAILY 11/28/19 12/21/23 venlafaxine 75 mg capsule,extended 150 mg PO DAILY 11/28/19 12/21/23 release 24 hr alprazolam 0.5 mg tablet 0.5 mg PO HS PRN Sleep 07/05/22 12/21/23 cholecalciferol (vitamin D3) 1,250 1,250 mcg PO WEEKLY 07/05/22 12/21/23 mcg (50,000 unit) capsule metoprolol tartrate 50 mg tablet 50 mg PO BID 07/05/22 12/21/23 potassium chloride 20 mEq 20 meq PO DAILY 07/05/22 12/21/23 tablet,extended release(part/cryst) trazodone 50 mg tablet 50 mg PO HS PRN Sleep 07/05/22 12/21/23 aspirin 81 mg capsule 81 mg PO DAILY 02/17/23 12/21/23 oxybutynin chloride 5 mg tablet 5 mg PO BID 02/17/23 12/21/23 gabapentin 300 mg capsule 300 mg PO TID 09/05/23 12/21/23 benzonatate 100 mg capsule 100 mg PO DIRECTED 12/21/23 12/21/23 Allergies Allergy/AdvReac Type Severity Reaction Status Date / Time Penicillins Allergy Unknown Anaphylaxis Verified 12/21/23 15:18 poppyseed oil Allergy Unknown Swelling Verified 12/21/23 15:18 of Lip/Tongue/Throat Review of Systems Review of Systems: All systems reviewed & are unremarkable except as noted in HPI and below PMFSH Past Medical History Medical History Alcoholism Anxiety Hypertension Migraine Morbid obesity with BMI of 60.0-69.9, adult Peripheral neuropathy Urge urinary incontinence Surgical History Surgical History Delivery by section H/O breast surgery 05/04/23 hematoma removed History of gastric bypass (~2016) History of surgery on left wrist ORIF Left wrist- 02/18/23 Normal colonoscopy (~2019) Family History Family History Other Alcoholism Family history of arthritis Family history of mental disorder Hypertension Social History Social History Social History: She has been for 25 years. She has 1 son who is in his 30s. 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 Smoking status: Former smoker Tobacco type: cigarettes Smoking end date: 03/06/16 Alcohol intake: former Drinks per week: 3 Alcohol use details: Quit 02/16/23. 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 HEAD: Left-sided facial swelling associated with the left parotid gland, no fluctuant, no abscess, no overlying cellulitis EYES: PERRLA/EOMI, conjunctivae clear. NOSE: Normal no drainage EARS:TMS clear with good light reflex. THROAT: Pharynx clear, no exudate. NECK: Supple. No adenopathy, no masses. RESPIRATORY: Airway patent, respirations nonlabored. Clear to auscultation bilaterally, no rales, rhonchi, wheezing. CARDIOVASCULAR: Regular rate and rhythm without murmurs rubs or gallops. ABD
[2023-12-24] MEDS: CIPROFLOXACIN 500 MG TAB PO (11:47)
[2023-12-24] MEDS: metroNIDAZOLE 500 MG TABLET PO (11:47)
== END 2023-12-24 11:50 | disposition home or self-care (01) ==
PROVIDERS: Emergency Provider Emergency Medicine; PCP Nurse Practitioner Family
DX: K11.20 Sialoadenitis, unspecified (principal); I10 Essential (primary) hypertension; E66.01 Morbid (severe) obesity due to excess calories; Z68.45 Body mass index [BMI] 70 or greater, adult; N39.41 Urge incontinence; G62.9 Polyneuropathy, unspecified; F41.9 Anxiety disorder, unspecified; Z98.84 Bariatric surgery status; Z87.891 Personal history of nicotine dependence; Z79.82 Long term (current) use of aspirin; Z79.899 Other long term (current) drug therapy
CPT/HCPCS: 99283; A9270

== ENCOUNTER 2024-01-01 16:19 | Emergency (ER) | payer OTHER, SELFPAY ==
[2024-01-01] VITALS (26 sets, daily range): BP systolic 116–183; BP diastolic 67–110; PULSE 74–85; RESP 15–22; TEMP 36.4–36.6; O2SAT 91–100
--- NOTE | ~2024-01-01 | XR_ITS ---
XR shoulder RT 1V Ordering provider: Mak Su History: . post sedation reduction . Comparison: January 01, 2024 FINDINGS: BONES: No acute fracture. Anterior dislocation is noted. IMPRESSION: Anterior dislocation of the right shoulder with no change. Reviewed, dictated and finalized at location A.
--- NOTE | ~2024-01-01 | XR_ITS ---
XR shoulder RT min 2V Ordering provider: Mak Su MD History: . post reduction . Comparison: December 24, 2023 FINDINGS: BONES: No acute fracture or dislocation. Status post reduction of the dislocated shoulder. JOINT SPACES: The acromioclavicular joint is normal. The glenohumeral joint is normal. SOFT TISSUES: Normal. Opacity seen in the right lower lobe area of the lung. Further evaluation advised. IMPRESSION: No acute osseous abnormality right shoulder. Status post reduction. Reviewed, dictated and finalized at location A.
--- NOTE | ~2024-01-01 | XR_ITS ---
EXAMINATION: XR shoulder RT min 2V DATE: 01/01/2024 16:55 INDICATION: Right shoulder dislocation. TECHNIQUE: 3 views of right shoulder were obtained. COMPARISON: Right shoulder radiographs 12/21/2023 FINDINGS: There is anterior dislocation humeral head with respect to glenoid. Again seen is a fractur e deformity of posterolateral aspect of humeral head (Hill-Sachs fracture deformity). 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 IMPRESSION: 1. Anterior right shoulder dislocation. Reviewed, dictated and finalized at location B.
--- NOTE | 2024-01-01 16:27 | ED_ITS ---
HPI - Extremity Injury (Upper) General Chief Complaint: Extremity Injury, Upper <Radha Alexander APRN - Last Filed: 01/01/24 16:30> Stated Complaint: dislocated shoulder again, dislocated initially 1w <PRAISA Valentine RN - Last Filed: 01/01/24 16:30> Time Seen by Provider: 01/01/24 16:20 <Radha Alexander APRN - Last Filed: 01/01/24 16:30> Focused HPI: Patient is a 53-year-old female presents to the ER with right shoulder pain. She reports she dislocated her shoulder approximately 1 week ago and her orthopedic surgeon Dr. Encarnacion had to come down and put it back into place. Today patient was changing the sheets on her bed without her sling on. She reports it popped and she immediately experienced intense pain. Patient endorses increased pain with manipulation and movement. She also endorses numbness and tingling in her right hand and fingers. GENERAL: Well-appearing, well-nourished, and in no acute distress. HEAD: Normocephalic, atraumatic. CHEST: Clear to auscultation. ?No respiratory distress. HEART: Regular rate and rhythm.? NEURO: ?Alert and oriented x3. MUSCULOSKELETAL: Patient endorses increased pain with abduction, adduction, and palpation to touch. Patient screened in triage and initial orders placed.? ?Additional care and disposition to be based upon?diagnostic testing and treatment. <Radha Alexander APRN - Last Filed: 01/01/24 16:30> Related Data Home Medications: Home Medications Medication Instructions Recorded Confirmed furosemide 40 mg tablet 60 mg PO DAILY 11/28/19 12/21/23 venlafaxine 75 mg capsule,extended 150 mg PO DAILY 11/28/19 12/21/23 release 24 hr alprazolam 0.5 mg tablet 0.5 mg PO HS PRN Sleep 07/05/22 12/21/23 cholecalciferol (vitamin D3) 1,250 1,250 mcg PO WEEKLY 07/05/22 12/21/23 mcg (50,000 unit) capsule metoprolol tartrate 50 mg tablet 50 mg PO BID 07/05/22 12/21/23 potassium chloride 20 mEq 20 meq PO DAILY 07/05/22 12/21/23 tablet,extended release(part/cryst) trazodone 50 mg tablet 50 mg PO HS PRN Sleep 07/05/22 12/21/23 aspirin 81 mg capsule 81 mg PO DAILY 02/17/23 12/21/23 oxybutynin chloride 5 mg tablet 5 mg PO BID 02/17/23 12/21/23 gabapentin 300 mg capsule 300 mg PO TID 09/05/23 12/21/23 benzonatate 100 mg capsule 100 mg PO DIRECTED 12/21/23 12/21/23 <Radha Alexander, SECURITY SOLUTIONS ARCHITECT - Last Filed: 01/01/24 16:30> Allergies/Adverse Reactions: Allergies Allergy/AdvReac Type Severity Reaction Status Date / Time Penicillins Allergy Unknown Anaphylaxis Verified 01/01/24 19:32 poppyseed oil Allergy Unknown Swelling Verified 01/01/24 19:32 of Lip/Tongue/Throat cephalexin [From Keflex] Allergy Unknown Verified 01/01/24 19:32 <Radha Alexander APRN - Last Filed: 01/01/24 16:30> [facility] Past Medical History Medical History: Medical History Alcoholism Anxiety Hypertension Migraine Morbid obesity with BMI of 60.0-69.9, adult Peripheral neuropathy Urge urinary incontinence <Radha Alexander APRN - Last Filed: 01/01/24 16:30> Surgical History Surgical History: Surgical History Delivery by section H/O breast surgery 05/04/23 hematoma removed History of gastric bypass (~2016) History of surgery on left wrist ORIF Left wrist- 02/18/23 Normal colonoscopy (~2019) <Radha Alexander APRN - Last Filed: 01/01/24 16:30> Family History Family History: Family History Other Alcoholism Family history of arthritis Family history of mental disorder Hypertension <Radha Alexander APRN - Last Filed: 01/01/24 16:30> Social History Social History: Social History Social History: She has been for 25 years. She has 1 son who is in his 30s. 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 Smoking status: Former smoker Tobacco type: cigarettes Smoking end date: 03/06/16 Alcohol intake: former Drinks per week: 3 Alcohol use details: Quit 02/16/23. 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 Gender identity (if verbalized by the patient): Female Spiritual care concerns: No <Radha Alexander, SECURITY [employer]UTIONS ARCHITECT - Last Filed: 01/01/24 16:30> Course Vital Signs Vital signs: Vital Signs Temperature 36.6 C 01/01/24 16:21 Pulse Rate 80 01/01/24 16:21 Respiratory Rate 20 01/01/24 16:21 Blood Pressure 174/109 H 01/01/24 16:21 Pulse Oximetry 99 01/01/24 16:21 Oxygen Delivery Room Air 01/01/24 16:21 Temperature 36.6 C 01/01/24 20:46 Pulse Rate 74 01/01/24 21:10 Respiratory Rate 19 01/01/24 21:10 Blood Pressure 116/89 01/01/24 21:10 Pulse Oximetry 92 01/01/24 21:10 Oxygen Delivery Room Air 01/01/24 20:46 <Radha Alexander, SECUR[employer]UT[employer] ARCHITECT - Last Filed: 01/01/24 16:30> Vital Signs Temperature 36.6 C 01/01/24 16:21 Pulse Rate 80 01/01/24 16:21 Respiratory Rate 20 01/01/24 16:21 Blood Pressure 174/109 H 01/01/24 16:21 Pulse Oximetry 99 01/01/24 16:21 Oxygen Delivery Room Air 01/01/24 16:21 Temperature 36.6 C 01/01/24 20:46 Pulse Rate 74 01/01/24 21:10 Respiratory Rate 19 01/01/24 21:10 Blood Pressure 116/89 01/01/24 21:10 Pulse Oximetry 92 01/01/24 21:10 Oxygen Delivery Room Air 01/01/24 20:46 <Mak Su MD - Last Filed: 01/01/24 21:25> Procedures Orthopedic Joint Reduction Joint #1: Orthopedic Joint Reduction Date: 01/01/24 <Mak Su MD - Last Filed: 01/01/24 21:25> Orthopedic Joint Reduction Time: 20:00 <Mak Su MD - Last Filed: 01/01/24 21:25> Time Out Performed: Yes <Mak Su MD - Last Filed: 01/01/24 21:25> Side: right <Mak Su MD - Last Filed: 01/01/24 21:25> Joint Reduction Location: shoulder <Mak Su MD - Last Filed: 01/01/24 21:25> Analgesia: procedural sedation <Mak Su MD - Last Filed: 01/01/24 21:25> Pre-Procedure Neuro Vascular Exam: normal <Mak Su MD - Last Filed: 01/01/24 21:25> Technique used: traction/counter-traction and direct manipulation <Mak Su MD - Last Filed: 01/01/24 21:25> Post-reduction neuro exam: no change <Mak Su MD - Last Filed: 01/01/24 21:25> Post-reduction vascular: no change <Mak Su MD - Last Filed: 01/01/24 21:25> Post Reduction X-Ray Obtained: Yes <Mak Su MD - Last Filed: 01/01/24 21:25> Post Reduction X-Ray Results: not reduced <Mak Su MD - Last Filed: 01/01/24 21:25> Patient Tolerated Procedure: well <Mak Su MD - Last Filed: 01/01/24 21:25> Joint #2: Orthopedic Joint Reduction Date: 01/01/24 <Mak Su MD - Last Filed: 01/01/24 21:25> Orthopedic Joint Reduction Time: 20:06 <Mak Su MD - Last Filed: 01/01/24 21:25> Time Out Performed: Yes <Mak Su MD - Last Filed: 01/01/24 21:25> Side: right <Mak Su MD - Last Filed: 01/01/24 21:25> Joint Reduction Location: shoulder <Mak Su MD - Last Filed: 01/01/24 21:25> Analgesia: procedural sedation <Mak Su MD - Last Filed: 01/01/24 21:25> Pre-Procedure Neuro Vascular Exam: normal <Mak Su MD - Last Filed: 01/01/24 21:25> Shoulder Technique Used (if applicable): traction/counter-traction <Mak Su MD - Last Filed: 01/01/24 21:25> Technique used: traction/counter-traction <Mak Su MD - Last Filed: 01/01/24 21:25> Post-reduction neuro exam: intact <Mak Su MD - Last Filed: 01/01/24 21:25> Post-reduction vascular: intact <Mak Su MD - Last Filed: 01/01/24 21:25> Post Reduction X-Ray Obtained: Yes <Mak Su MD - Last Filed: 01/01/24 21:25> Post Reduction X-Ray Results: reduced <Mak Su MD - Last Filed: 01/01/24 21:25> Splint Applied: Yes (sling) <Mak Su MD - Last Filed: 01/01/24 21:25> Patient Tolerated Procedure: well and no complications <Mak Su MD - Last Filed: 01/01/24 21:25> Procedural Sedation Procedural Sedation #1: Presedation Evaluation: GENERAL: Moderate pain distress morbidly obese HEAD: Normocephalic, atraumatic. EYES: PERRLA and EOMI. ENT: Nares clear, no rhinorrhea or epistaxis. Mucous membranes moist. NECK: Supple. CHEST: Clear to auscultation. No respiratory distress. HEART: Regular rate and rhythm. No murmur heard. Normal peripheral pulses. ABDOMEN: Soft, nontender, nondistended, normal active bowel sounds. EXTREMITIES: Normal range of motion in all extremities except right upper extremity. Limited range of motion of the right shoulder. No edema. SKIN: Warm, dry, no rash. NEURO: No focal deficits. Alert and oriented x3. PSYCH: Normal mood and affect. <Mak Su MD - Last Filed: 21:25> Procedure: Close reduction of right shoulder dislocation <Mak nice MD - Last Filed: 01/01/24 21:25> Time Out: Time-out performed prior to sedation <Mak Su MD - Last Filed: 01/01/24 21:25> Informed Consent Obtained: yes <Mak Su MD - Last Filed: 01/01/24 21:25> Equipment in Room: bag and mask, capnography, healthcare technician, crash cart, oxygen, pulse oximeter and suction <Mak Su MD - Last Filed: 01/01/24 21:25> Plan for Sedation: deep sedation <Mak Su MD - Last Filed: 01/01/24 21:25> ASA Class: III <Mak Su MD - Last Filed: 01/01/24 21:25> Mallampati Classification: class II <Mak Su MD - Last Filed: 01/01/24 21:25> NPO Status: last solid food (hours ago) (5) <Mak Su MD - Last Filed: 01/01/24 21:25> Explanation to Patient/Family: Risk/Benefits/Alternatives and Pt/Family agreed with plan <Mak Su MD - Last Filed: 01/01/24 21:25> Pt. Educated on Procedural Sedation: Yes <Mak Su MD - Last Filed: 01/01/24 21:25> Re-evaluated immediately prior: Yes <Mak Su MD - Last Filed: 01/01/24 21:25> Preparation: healthcare technician applied, pulse oximeter, capnometry used, supplemental O2 applied, suction/airway equipment at bedside and IV secured <Mak Su MD - Last Filed: 01/01/24 21:25> IV Propofol dose (mg): 150 <Mak Su MD - Last Filed: 01/01/24 21:25> Patient Tolerated Procedure: well <Mak Su MD - Last Filed: 01/01/24 21:25> Total Sedation Time (min): 7 <Mak Su MD - Last Filed: 01/01/24 21:25> Procedural Sedation #2: Presedation Evaluation: GENERAL: Morbid obesity, in moderate pain HEAD: Normocephalic, atraumatic. EYES: PERRLA and EOMI. ENT: Nares clear, no rhinorrhea or epistaxis. Mucous membranes moist. NECK: Supple. CHEST: Clear to auscultation. No respiratory distress. HEART: Regular rate and rhythm. No murmur heard. Normal peripheral pulses. ABDOMEN: Soft, nontender, nondistended, normal active bowel sounds. EXTREMITIES: Normal range of motion in all extremities except for right upper extremity. No edema. SKIN: Warm, dry, no rash. NEURO: No focal deficits. Alert and oriented x3. PSYCH: Normal mood and affect. <Mak Su MD - Last Filed: 01/01/24 21:25> Procedure: Closed reduction right shoulder <Mak Su MD - Last Filed: 01/01/24 21:25> Time Out: Time-out performed 2005 <Mak Su MD - Last Filed: 01/01/24 21:25> Informed Consent Obtained: yes <Mak Su MD - Last Filed: 01/01/24 21:25> Equipment in Room: bag and mask, capnography, healthcare technician, crash cart, oxygen and pulse oximeter <Mak Su MD - Last Filed: 01/01/24 21:25> ASA Class: III <Mak Su MD - Last Filed: 01/01/24 21:25> Mallampati Classification: class II <Mak Su MD - Last Filed: 01/01/24 21:25> NPO Status: last solid food (hours ago) (5) <Mak Su MD - Last Filed: 01/01/24 21:25> Explanation to Patient/Family: Risk/Benefits/Alternatives and Pt/Family agreed with plan <Mak Su MD - Last Filed: 01/01/24 21:25> Pt. Educated on Procedural Sedation: Yes <Mak Su MD - Last Filed: 01/01/24 21:25> Re-evaluated immediately prior: Yes <Mak Su MD - Last Filed: 01/01/24 21:25> Preparation: healthcare technician applied, pulse oximeter, capnometry used, supplemental O2 applied, suction/airway equipment at bedside and IV secured <Mak Su MD - Last Filed: 01/01/24 21:25> IV Propofol dose (mg): 160 <Mak Su MD - Last Filed: 01/01/24 21:25> Complications: Respiratory Depression-Repositioning Required <Mak Su MD - Last Filed: 01/01/24 21:25> Interventions: oxygen applied, airway repositioned and assist by BVM <Mak Su MD - Last Filed: 01/01/24 21:25> Total Sedation Time (min): 6 <Mak Su MD - Last Filed: 01/01/24 21:25> MDM - Extremity Injury (Upper) MDM Narrative Medical decision making narrative: Differential diagnosis includes shoulder dislocation, fracture The patient was a extremely complicated prior reduction that required reduction in the operating room initial attempt was made without successful reduction a 2nd attempt was performed with successful reduction of the shoulder <Mak Su MD - Last Filed: 01/01/24 21:25> Lab Data Result diagrams: 01/01/24 19:28 01/01/24 19:28 <Radha Alexander APRN - Last Filed: 01/01/24 16:30> Labs: Lab Results 01/01/24 Range/Units 19:28 WBC 9.7 (4.5-10.0) K/mm3 RBC 3.69 L (4.2-5.4) M/mm3 Hgb 12.9 D (12.0-15.0) g/dL Hct 39.3 (37.0-47.0) % MCV 106.5 H (80-100) fl MCH 35.0 H (26-34) pg MCHC 32.8 (32-36) g/dl RDW 13.6 (11.5-14.5) % Plt Count 321 D (150-375) k/mm3 MPV 9.0 (7.4-10.4) fl Immature Gran % (Auto) 1.0 H (0-0.5) % Neut % (Auto) 72.1 (45.5-73.1) % Lymph % (Auto) 18.0 L (18.3-44.2) % Douglas % (Auto) 8.1 (2.6-8.5) % Eos % (Auto) 0.3 (0-4.4) % Baso % (Auto) 0.5 (0.2-1.2) % Lymph # (Auto) 1.75 (0.9-3.2) K/mm3 Douglas # (Auto) 0.8 H (0.1-0.6) K/mm3 Eos # (Auto) 0.0 (0-0.3) K/mm3 Baso # (Auto) 0.1 (0.0-0.1) K/mm3 Abs Immat Gran (auto) 0.10 H (0.00-0.031) K/mm3 Absolute Neuts (auto) 7.0 H (1.3-6.7) K/mm3 Absolute Nucleated RBC 0.000 (0.0-0.012) K/mm3 Nucleated RBC % 0.0 (0.0-0.2) % Platelet Estimate Adequate (Adequate) Macrocytosis 1+ (NORMAL) Schistocytes None seen Sodium 133 L (137-145) mmol/L Potassium 4.1 (3.4-5.0) mmol/L Chloride 100 (98-107) mmol/L Carbon Dioxide 21 L (22-30) mmol/L Anion Gap 12 (4-12) mmol/L BUN 9 (7-17) mg/dL Creatinine 0.50 L (0.7-1.0) mg/dL Estim Creat Clear Calc 172 ml/min Estimated GFR > 60 (59 - ) Glucose 117 H (65-110) mg/dL Calcium 8.6 (8.4-10.2) mg/dL Total Bilirubin 0.8 (0.2-1.3) mg/dL AST 68 H (14-36) U/L ALT 32 (6-35) U/L Alkaline Phosphatase 195 H (38-126) U/L Total Protein 8.0 (6.3-8.2) g/dL Albumin 4.2 (3.5-5.1) g/dL <Radha Alexander, [employer] ARCHITECT - Last Filed: 01/01/24 16:30> Lab Results 01/01/24 Range/Units 19:28 WBC 9.7 (4.5-10.0) K/mm3 RBC 3.69 L (4.2-5.4) M/mm3 Hgb 12.9 D (12.0-15.0) g/dL Hct 39.3 (37.0-47.0) % MCV 106.5 H (80-100) fl MCH 35.0 H (26-34) pg MCHC 32.8 (32-36) g/dl RDW 13.6 (11.5-14.5) % Plt Count 321 D (150-375) k/mm3 MPV 9.0 (7.4-10.4) fl Immature Gran % (Auto) 1.0 H (0-0.5) % Neut % (Auto) 72.1 (45.5-73.1) % Lymph % (Auto) 18.0 L (18.3-44.2) % Douglas % (Auto) 8.1 (2.6-8.5) % Eos % (Auto) 0.3 (0-4.4) % Baso % (Auto) 0.5 (0.2-1.2) % Lymph # (Auto) 1.75 (0.9-3.2) K/mm3 Douglas # (Auto) 0.8 H (0.1-0.6) K/mm3 Eos # (Auto) 0.0 (0-0.3) K/mm3 Baso # (Auto) 0.1 (0.0-0.1) K/mm3 Abs Immat Gran (auto) 0.10 H (0.00-0.031) K/mm3 Absolute Neuts (auto) 7.0 H (1.3-6.7) K/mm3 Absolute Nucleated RBC 0.000 (0.0-0.012) K/mm3 Nucleated RBC % 0.0 (0.0-0.2) % Platelet Estimate Adequate (Adequate) Macrocytosis 1+ (NORMAL) Schistocytes None seen Sodium 133 L (137-145) mmol/L Potassium 4.1 (3.4-5.0) mmol/L Chloride 100 (98-107) mmol/L Carbon Dioxide 21 L (22-30) mmol/L Anion Gap 12 (4-12) mmol/L BUN 9 (7-17) mg/dL Creatinine 0.50 L (0.7-1.0) mg/dL Estim Creat Clear Calc 172 ml/min Estimated GFR > 60 (59 - ) Glucose 117 H (65-110) mg/dL Calcium 8.6 (8.4-10.2) mg/dL Total Bilirubin 0.8 (0.2-1.3) mg/dL AST 68 H (14-36) U/L ALT 32 (6-35) U/L Alkaline Phosphatase 195 H (38-126) U/L Total Protein 8.0 (6.3-8.2) g/dL Albumin 4.2 (3.5-5.1) g/dL <Mak Su MD - Last Filed: 01/01/24 21:25> Discharge Plan Discharge Clinical Impression: Dislocation of shoulder, anterior, right, closed <Radha Alexander APRN - Last Filed: 01/01/24 16:30> Patient Disposition: Home, Self-Care <Radha Alexander APRN - Last Filed: 01/01/24 16:30> Condition: Stable <Radha Alexander APRN - Last Filed: 01/01/24 16:30> Instructions: Antibiotic Form, Shoulder Dislocation (ED), How to Use a Sling (ED), Deep Sedation (ED), Moderate Sedation (ED), Closed Reduction (ED) <Radha Alexander APRN - Last Filed: 01/01/24 16:30> Additional Instructions: Please make sure to wear your sling at all times please follow-up with Dr. Encarnacion tomorrow <Radha Alexander APRN - Last Filed: 01/01/24 16:30> Prescriptions: No Action trazodone 50 mg tablet 50 mg PO HS PRN (Reason: Sleep) alprazolam 0.5 mg tablet 0.5 mg PO HS PRN (Reason: Sleep) metoprolol tartrate 50 mg tablet 50 mg PO BID cholecalciferol (vitamin D3) 1,250 mcg (50,000 unit) capsule 1,250 mcg PO WEEKLY Patient Comments: PT TAKES ON MONDAY potassium chloride 20 mEq tablet,ER particles/crystals 20 meq PO DAILY benzonatate 100 mg capsule 100 mg PO DIRECTED gabapentin 300 mg capsule 300 mg PO TID oxybutynin chloride 5 mg tablet 5 mg PO BID aspirin 81 mg Capsule 81 mg PO DAILY tramadol 50 mg tablet 50 mg PO Q6H PRN (Reason: pain) Qty: 30 0RF ciprofloxacin HCl [Cipro] 500 mg tablet 500 mg PO Q12H 7 Days Qty: 14 0RF metronidazole 500 mg tablet 500 mg PO Q12H 7 Days Qty: 14 0RF furosemide 40 mg tablet 60 mg PO DAILY venlafaxine 75 mg capsule,extended release 24hr 150 mg PO DAILY <Radha Alexander APRN - Last Filed: 01/01/24 16:30> Follow-up/Referrals: Trung Encarnacion MD [Physician] - [facility],JYOTI Allen [Primary Care Provider] - <Radha Alexander APRN - Last Filed: 01/01/24 16:30> Time of Disposition: 21:24 <Radha Alexander APRN - Last Filed: 01/01/24 16:30> 21:24 <Mak Su MD - Last Filed: 01/01/24 21:25>
[2024-01-01] MEDS: HYDROcodone/acetaminophen (*CRX) 5-325 MG TABLET 1 TAB PO (17:01)
[2024-01-01] MEDS: HYDROmorphone HCL INJ (*CRX) 1 MG/ML SYR IV PUSH (19:33)
[2024-01-01 19:35] LABS: Basophils Absolute Auto 0.1 K/mm3 (0.0-0.1); Basophils Percent Auto 0.5 % (0.2-1.2); Eosinophils Percent Auto 0.3 % (0-4.4); Hematocrit 39.3 % (37.0-47.0); Hemoglobin 12.9 g/dL (12.0-15.0); Lymphocytes Absolute Auto 1.75 K/mm3 (0.9-3.2); Mean Corpuscular HGB Conc 32.8 g/dl (32-36); Mean Corpuscular Volume 106.5 fl (80-100); Monocytes Absolute Auto 0.8 K/mm3 (0.1-0.6); Monocytes Percent Auto 8.1 % (2.6-8.5); Neutrophils Percent Auto 72.1 % (45.5-73.1); Platelet Count Result 321 k/mm3 (150-375); Red Blood Count 3.69 M/mm3 (4.2-5.4); Red Cell Distribution Width 13.6 % (11.5-14.5); White Blood Count 9.7 K/mm3 (4.5-10.0)
[2024-01-01 19:58] LABS: Platelet Estimate Adequate (Adequate)
[2024-01-01 19:59] LABS: Alanine Aminotransferase 32 U/L (6-35); Albumin Level 4.2 g/dL (3.5-5.1); Alkaline Phosphatase 195 U/L (38-126); Anion Gap 12 mmol/L (4-12); Aspartate Amino Transferase 68 U/L (14-36); Bilirubin,Total 0.8 mg/dL (0.2-1.3); Blood Urea Nitrogen 9 mg/dL (7-17); Calcium 8.6 mg/dL (8.4-10.2); Carbon Dioxide 21 mmol/L (22-30); Chloride 100 mmol/L (98-107); Estimated CRCL calculation 172 ml/min; Estimated Glomerular Filt Rate > 60; Glucose 117 mg/dL (65-110); Macrocytosis 1+ (NORMAL); Potassium 4.1 mmol/L (3.4-5.0); Schistocytes None Seen; Sodium 133 mmol/L (137-145)
[2024-01-01] MEDS: PROPOFOL IV EMULSION 200 MG/20 ML VIAL IV PUSH (20:02)
[2024-01-01] MEDS: SODIUM CHLORIDE 0.9% IV 1,000 ML 999 ML (20:20)
[2024-01-01] MEDS: PROPOFOL IV EMULSION 200 MG/20 ML VIAL (20:22)
--- NOTE | 2024-01-01 20:24 | PC.NURSE ---
all propofol was given by EDP
== END 2024-01-01 21:58 | disposition home or self-care (01) ==
PROVIDERS: Emergency Provider Emergency Medicine; PCP Nurse Practitioner Family
DX: M24.411 Recurrent dislocation, right shoulder (principal); F41.9 Anxiety disorder, unspecified; I10 Essential (primary) hypertension; E66.01 Morbid (severe) obesity due to excess calories; Z68.44 Body mass index [BMI] 60.0-69.9, adult; G62.9 Polyneuropathy, unspecified; X50.0XXA Overexertion from strenuous movement or load, initial encounter
CPT/HCPCS: 23605; 36415; 73020; 73030; 80053; 85025; 96374; 99285; A9270; J1171; J2704; J7030

== ENCOUNTER 2024-01-17 01:19 | Day surgery (SDC) | payer OTHER, SELFPAY ==
[2024-01-16 10:46] VITALS: BMI 68.3
--- NOTE | 2024-01-16 10:47 | PC.NURSE ---
Report to the Outpatient Waiting Room, entrance under the green pavilion located off [facility], at time _1000_ on date _[id number]_. Planned Procedure Time: _1200_.? Time changes happen often and if your time is changed the preop area will call you the afternoon before. - You and your visitor will be asked to self-screen and do not enter if you have any COVID symptoms. Please call surgeon if you need to reschedule. - A mask is optional within the hospital at this time. Patients may have clear liquids (water, carbonated beverages, clear teas, apple juice) until 3 hours prior to surgery with a maximum of 20 ounces. - No food from midnight until time of surgery and no smoking Take only the following medications with a SIP of water on the morning of surgery: __Gabapentin, Metoprolol and Venlafaxine DO NOT STOP ANY OF YOUR OTHER PRESCRIPTION MEDICATIONS PRIOR TO SURGERY EXCEPT THE FOLLOWING Medications to discontinue per physician ___Aspirin, vitamins__ Date to take last dose____Stop now.____ Please no make-up, nail azeri, hairspray, perfume, deodorant, or body powder the day of surgery.? No jewelry (including any body piercings) or valuables the day of surgery, leave them at home.? Please take a shower or bath the night before, or the morning of, surgery with an antibacterial soap.? Wear comfortable, loose fitting clothing.? - Jewelry must be removed prior to entering the operating room.? Rings and piercings that are not removed may be cut off. - The hospital will not accept responsibility for valuables.? - Please leave all valuables, including medications, at home the day of surgery. If you are going home after surgery, a licensed trailer driver must drive you home.? - NO public transportation without another adult if you receive anesthesia. - We recommend that an adult stay with you for 24 hours following discharge. - We also recommend that you do not drive, make important decision, drink alcoholic beverages, or take any drugs that were not prescribed by your health care provider for at least 24 hours after your discharge time. Follow any additional instructions given to you from your surgeon. Telephone instructions given to __Chris__and asked if any additional questions and then verbalized understanding. Patient advised to call surgeon office or pre surgery nurse liaison [phone] if any additional questions.
--- NOTE | 2024-01-16 12:54 | P.HP_ITS ---
H&P: HPI History of Present Illness Date/Time: 01/16/24 12:54 Chief Complaint: Dislocated right shoulder. [facility] Past Medical History Medical History Alcoholism Anxiety Hypertension Migraine Morbid obesity with BMI of 60.0-69.9, adult Peripheral neuropathy Urge urinary incontinence Surgical History Surgical History Delivery by section H/O breast surgery 05/04/23 hematoma removed History of gastric bypass (~2016) History of hand surgery left hand tendon surgery History of surgery on left wrist ORIF Left wrist- 02/18/23 Normal colonoscopy (~2019) Family History Family History Other Alcoholism Family history of arthritis Family history of mental disorder Hypertension Social History Social History (Updated 01/16/24 @ 09:27 by Marysol Sagastume CMA) Social History: She has been for 25 years. She has 1 son who is in his 30s. 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 Smoking packs per day: 1 Smoking cigarettes per day: 20.0 Years smoked: 20 Smoking pack-years: 20.00 Smoking status: Never smoker Tobacco type: cigarettes Smoking end date: 03/17/23 Alcohol intake: former Drinks per week: 3 Alcohol use details: Quit 02/16/23. Substance use: never Substance use type: does not use Current Housing: Decline to Answer Concerned About Future Housing: Decline to Answer Difficulty Paying Gas/Electric Bills: Decline to Answer Difficulty Paying for Meds: Decline to Answer Currently Unemployed: Decline to Answer Education: Decline to Answer Difficulty w/ Childcare or Family Care: Decline to Answer Living arrangements: with family Occupation/Education: occupation Additional occupation/education comments: [employer] Gender identity (if verbalized by the patient): Female Spiritual care concerns: No Meds Home Medications and Allergies Home Medications Medication Instructions Recorded Confirmed Type furosemide 40 mg tablet 60 mg PO DAILY 11/28/19 01/16/24 History venlafaxine 75 mg capsule,extended 150 mg PO DAILY 11/28/19 01/16/24 History release 24 hr alprazolam 0.5 mg tablet 0.5 mg PO HS PRN Sleep 07/05/22 01/16/24 History cholecalciferol (vitamin D3) 1,250 1,250 mcg PO WEEKLY 07/05/22 01/16/24 History mcg (50,000 unit) capsule metoprolol tartrate 50 mg tablet 50 mg PO BID 07/05/22 01/16/24 History potassium chloride 20 mEq 20 meq PO DAILY 07/05/22 01/16/24 History tablet,extended release(part/cryst) trazodone 50 mg tablet 50 mg PO HS PRN Sleep 07/05/22 01/16/24 History aspirin 81 mg capsule 81 mg PO DAILY 02/17/23 01/16/24 History oxybutynin chloride 5 mg tablet 5 mg PO BID 02/17/23 01/16/24 History gabapentin 300 mg capsule 300 mg PO TID 09/05/23 01/16/24 History benzonatate 100 mg capsule 100 mg PO DIRECTED 12/21/23 01/16/24 History multivitamin 1 tablet PO DAILY 01/16/24 01/16/24 History vitamin B complex 1 tablet PO DAILY 01/16/24 01/16/24 History Allergies Allergy/AdvReac Type Severity Reaction Status Date / Time Penicillins Allergy Unknown Anaphylaxis Verified 01/16/24 10:37 poppyseed oil Allergy Unknown Swelling Verified 01/16/24 10:37 of Lip/Tongue/Throat cephalexin [From Keflex] Allergy Unknown Verified 01/16/24 10:37 Exam Narrative: Patient has pain with manipulation of her shoulder she can elevate about 90?. Neurologically she is grossly intact. She is out of this shoulder mobilizer in using it to walk. Eyes: General: appearance normal, both eyes and all related structures Neck: Neck: supple Resp: Effort & Inspection: normal respiratory effort Cardio: Rate: regular rate Rhythm: regular rhythm Assessment and Plan Assessment and plan (1) Dislocation of shoulder, anterior, right, closed: Code(s): S43.014A - Anterior dislocation of right humerus, initial encounter Status: Acute Assessment and Plan: Patient is dislocated his shoulder again. Unfortunately she has not been overly cooperative remote get the aware the immobilizer 247. This is the 3rd time will try to reduce it. I have told her if I can on disc and half to leave it. I have discussed treatment options with the risks benefits limitations and alternatives in detail. Once again stressed her compliance as the very important part of this. (2) Morbid obesity: Code(s): E66.01 - Morbid (severe) obesity due to excess calories Status: Acute
[2024-01-17] VITALS (10 sets, daily range): BP systolic 108–147; BP diastolic 62–91; PULSE 83–92; RESP 14–18; TEMP 37.2–37.6; O2SAT 94–100
--- NOTE | ~2024-01-17 | XR_ITS ---
INTRAOPERATIVE FLUOROSCOPY: CLINICAL HISTORY: 53 years old Female; CLOSED REDUCTION RIGHT SHOULDER PROCEDURE COMMENTS: Limited intraoperative fluoroscopy of the right shoulder was performed. CUMULATIVE DOSE: 1.45 mGy FLUOROSCOPY TIME: 5.8 seconds FINDINGS/IMPRESSION: Please refer to operative note for further details. Reviewed, dictated and finalized at location A. IC RELATIONS SENIOR ASSOCIATE
[2024-01-17] MEDS: LACTATED RINGERS 1,000 ML 30 ML IV CONT (10:44)
[2024-01-17] MEDS: KETOROLAC 15 MG/ML VIAL (*BKC) IV PUSH (11:00)
[2024-01-17] MEDS: ACETAMINOPHEN 500 MG TABLET 1000 MG PO (11:00)
--- NOTE | 2024-01-17 11:09 | WPDHPUPDATE1 ---
History and Physical Update Update Date/Time: 01/17/24 11:09 History and Physical has been reviewed, including an updated exam of the patient. There are NO changes in the patient's condition. Risks, benefits, and alternatives have been discussed and questions answered. Patient agrees to proceed with procedure.
--- NOTE | 2024-01-17 12:51 | P.PNAN_ITS ---
Anes - Initial Pre Proc Eval Procedure: Operation Date: 01/17/24 12:00 Proposed Procedures p Closed Reduction Right Shoulder - Trung Encarnacion MD Date/Time: 01/17/24 12:51 Surgeon: Trung Encarnacion MD Pre Op Diagnosis: Dislocated Right Shoulder Patient Data Age: 53 Gender: F Height: 1.6 m Weight: 171.5 kg Last Vital Signs Temp 37.6 C 01/17/24 10:40 Pulse 92 01/17/24 10:40 Resp 14 01/17/24 10:40 BP 134/91 H 01/17/24 10:40 Pulse Ox 95 01/17/24 10:40 O2 Del Method Room Air 01/17/24 10:40 Allergies Allergy/AdvReac Type Severity Reaction Status Date / Time Penicillins Allergy Unknown Anaphylaxis Verified 01/17/24 11:01 poppyseed oil Allergy Unknown Swelling Verified 01/17/24 11:01 of Lip/Tongue/Throat cephalexin [From Keflex] Allergy Unknown Verified 01/17/24 11:01 Home Medications Medication Instructions Recorded Confirmed Type furosemide 40 mg tablet 60 mg PO DAILY 11/28/19 01/16/24 History venlafaxine 75 mg capsule,extended 150 mg PO DAILY 11/28/19 01/17/24 History release 24 hr alprazolam 0.5 mg tablet 0.5 mg PO HS PRN Sleep 07/05/22 01/16/24 History cholecalciferol (vitamin D3) 1,250 1,250 mcg PO WEEKLY 07/05/22 01/16/24 History mcg (50,000 unit) capsule metoprolol tartrate 50 mg tablet 50 mg PO BID 07/05/22 01/17/24 History potassium chloride 20 mEq 20 meq PO DAILY 07/05/22 01/16/24 History tablet,extended release(part/cryst) trazodone 50 mg tablet 50 mg PO HS PRN Sleep 07/05/22 01/16/24 History aspirin 81 mg capsule 81 mg PO DAILY 02/17/23 01/16/24 History oxybutynin chloride 5 mg tablet 5 mg PO BID 02/17/23 01/16/24 History gabapentin 300 mg capsule 300 mg PO TID 09/05/23 01/17/24 History benzonatate 100 mg capsule 100 mg PO DIRECTED 12/21/23 01/16/24 History multivitamin 1 tablet PO DAILY 01/16/24 01/16/24 History vitamin B complex 1 tablet PO DAILY 01/16/24 01/16/24 History Patient hx anesthesia problems: none Family hx anesthesia problems: none Results Review: All pre-operative results and documents have been reviewed as part of the pre- operative evaluation. [facility] Past Medical History Medical History Alcoholism Anxiety Hypertension Migraine Morbid obesity with BMI of 60.0-69.9, adult Peripheral neuropathy Urge urinary incontinence Surgical History Surgical History Delivery by section H/O breast surgery 05/04/23 hematoma removed History of gastric bypass (~2016) History of hand surgery left hand tendon surgery History of surgery on left wrist ORIF Left wrist- 02/18/23 Normal colonoscopy (~2019) Family History Family History Other Alcoholism Family history of arthritis Family history of mental disorder Hypertension Social History Social History Social History: She has been for 25 years. She has 1 son who is in his 30s. 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 Smoking packs per day: 1 Smoking cigarettes per day: 20.0 Years smoked: 20 Smoking pack-years: 20.00 Smoking status: Never smoker Tobacco type: cigarettes Smoking end date: 03/17/23 Alcohol intake: former Drinks per week: 3 Alcohol use details: Quit 02/16/23. Substance use: never Substance use type: does not use Current Housing: Decline to Answer Concerned About Future Housing: Decline to Answer Difficulty Paying Gas/Electric Bills: Decline to Answer Difficulty Paying for Meds: Decline to Answer Currently Unemployed: Decline to Answer Education: Decline to Answer Difficulty w/ Childcare or Family Care: Decline to Answer Living arrangements: with family Occupation/Education: occupation Additional occupation/education comments: [employer] Gender identity (if verbalized by the patient): Female Spiritual care concerns: No Anes - Eval Final PreProcedure Day of Procedure 01/17/24 12:51 Heart: regular rate and rhythm Lungs: clear to auscultation and normal air movement Airway: Mallampati scale Neurological: alert and oriented Last oral intake: >/= 8 hours ASA classification: III Emergent: no Anesthetic plan: proceed Anesthesia type and monitoring: general Results Review: All pre-operative results and documents have been reviewed as part of the pre- operative evaluation. Informed Consent: The patient's anesthetic plan and its attendant risks and benefits were discussed with the patient/family/POA. Questions were solicited and answers provided to the satisfaction of the patient/family/POA.
--- NOTE | 2024-01-17 13:36 | W.PM.PROC2 ---
Procedure Note - Detailed Date of Procedure 01/17/24 Pre-op Diagnosis Dislocated Right Shoulder Post-op Diagnosis Same Procedure Performed Reduction Right Shoulder Dislocation Surgeon Trung Encarnacion MD Anesthesia General Indications Dislocation Description of Procedure Patient brought to operating room 8. A general anesthetic was administered. The fracture was gently reduced and held in anatomic position. A shoulder immobilizer and was reapplied. Patient tolerated procedure well the operating room satisfactory condition. Complications No immediate complications Condition Stable Disposition PACU [facility] Billing Surgery - Charge Forward: Surgery Billing ([id number] Reduction with anesthesia)
== END 2024-01-17 15:51 | disposition home or self-care (01) ==
PROVIDERS: PCP Nurse Practitioner Family; Visit Provider Orthopaedic Surgery
PROC: (CPT 23655; principal; 2024-01-17 12:00)
DX: S43.014A Anterior dislocation of right humerus, initial encounter (principal); X58.XXXA Exposure to other specified factors, initial encounter; I10 Essential (primary) hypertension; F41.9 Anxiety disorder, unspecified; G62.9 Polyneuropathy, unspecified; N39.41 Urge incontinence; E66.01 Morbid (severe) obesity due to excess calories; Z68.44 Body mass index [BMI] 60.0-69.9, adult; Z79.82 Long term (current) use of aspirin; Z98.890 Other specified postprocedural states; Z98.84 Bariatric surgery status; Z87.891 Personal history of nicotine dependence
CPT/HCPCS: 23655; 99199; A9270; J1885; J2003; J2250; J2704; J3010; J7120

== ENCOUNTER 2024-04-29 13:42 | Outpatient (CLI) | payer OTHER, SELFPAY ==
[2024-04-29 15:24] LABS: Anion Gap 12 mmol/L (4-12); Blood Urea Nitrogen 21 mg/dL (7-17); Calcium 8.7 mg/dL (8.4-10.2); Carbon Dioxide 26 mmol/L (22-30); Chloride 101 mmol/L (98-107); Estimated Glomerular Filt Rate > 60; Glucose 95 mg/dL (65-110); Magnesium 1.6 mg/dL (1.6-2.3); Potassium 3.8 mmol/L (3.4-5.0); Sodium 139 mmol/L (137-145)
--- OUTSIDE RECORDS SUMMARY | 2024-04-29 15:51 | XMS_ITS | Encounter Summary ---
Author Organization [facility] Healthcare Address [address] [place] [address] Care Team Providers Care Charge Master Specialist Name Role Phone Tiffany Edmond NP Primary Care Provider [phone] Encounter Details Date Type Department Care Team (Late st Contact Info) Description 03/12/[address] [id number] Caitie Farris RN Social History Tobacco Use Types Packs/Day Years Used Date Smoking Tobacco: Former Cigarettes 0 07/14/2004 - 03/21/2015 Smokeless Tobacco: Never Alcohol Use Standard Drinks/Week Comments Not Currently 0 (1 standard drink = 0.6 oz pur e alcohol) AUDIT-C Answer Date Recorded Q1: How often do you have a drink containing alcohol? Never 02/15/2024 Q2: How many drinks containi ng alcohol do you have on a typical day when you are drinking? Patient does not drink Q3: How often do you have si x or more drinks on one occasion? Never 02/15/2024 PHQ-2 Answer Date Recorded PHQ-2 Total Score (If total score is 3 or more points, staff should administer the PHQ-9) 1 02/13/2024 Personal Safety Answer Date Recorded Have you ever been in or are you currently in a harmful physical or emotional relationship or is someone making you feel afraid or unsafe? 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 TEACHER Gender Identity Female 10/09/2020 9:44 AM CDT Sexual Orientation Straight 07/19/2020 12 :16 PM CDT Occupation Industry Job Start Date Job End Date [employer] Not on file Not on file Not on file documented as of this encounter Plan of Treatment Not on file documented as of this encounter Visit Diagnoses Not on filedocumented in this encounter Additional Health Concerns Infection Onset Date Last Indicated Resolved Time COVID: Suspected 04/02/2024 04/02/2024 04/02/2024 10:50 PM ETIQUETTE TEACHER documented as of this encounter Care Teams Charge Master Specialist Relationship Specialty Start Date End Date Tiffany Edmond NP [address] [facility] [address] [place] [address] PCP - General Internal Medicine 07/12/22 documented as of this encounter
--- OUTSIDE RECORDS SUMMARY | 2024-04-29 15:51 | XMS_ITS | Encounter Summary ---
Author Organization [facility] Healthcare Address [address] [place] [address] Care Team Providers Care It Technical Architect Name Role Phone Tiffany Edmond NP Primary Care Provider [phone] Reason for Visit * Reason Onset Date Comments Additional Services Or Orders 03/22/2024 Call Back 03/22/2024 Encounter Details Date Type Department Care Team (Late st Contact Info) Description 03/22/2024 Telephone [facility] Internal Medicine at [place] [address] [place] [address] Tiffany Edmond, JYOTI [address] [place] [address] Additional Services Or Orders; Call Back Social History Tobacco Use Types Packs/Day Years [...] more points, staff should administer the PHQ-9) 0 03/20/2024 Personal Safety Answer Date Recorded Have you ever been in or are you currently in a harmful physical or emotional relationship or is someone making you feel afraid or unsafe? 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 HER WRINGER OPERATOR * Telephone Encounter - Nolvia Joshi - 03/22/2024 10:53 AM POACHER WRINGER OPERATOR Medical Question/Miscellaneous Caller???s Concern: Patient states she talked to [facility] and they told her they need more information so they sent a statement back to JYOTI Allen's office and are still waiting for the return of the info needed. Does message need to be routed? Yes-Action Needed HER WRINGER OPERATOR documented in this encounter Plan of Treatment Not on file documented as of this encounter Visit Diagnoses Not on filedocumented in this encounter Additional Health Concerns Infection Onset Date Last Indicated Resolved Time COVID: Suspected 04/02/2024 04/02/2024 04/02/2024 10:50 PM POACHER WRINGER OPERATOR documented as of this encounter Care Teams It Technical Architect Relationship Specialty Start Date End Date Tiffany Edmond NP [address] [address] PCP - General Internal Medicine 07/12/22 documented as of this encounter
--- OUTSIDE RECORDS SUMMARY | 2024-04-29 15:51 | XMS_ITS | Data Portability ---
Author Organization [facility] Address [address] [facility] [address] Assessment No assessment recorded. Plan of Treatment Reminders Order Date Submit Date Provider Last Modified By Organization Details Last Modified Time Details Appointments None recorded. Lab albumin, urine 2014 015 Maria A PORRAS, [address], [place], [address], 5 09:20:27 TSH, serum or plasma 2014 015 BRADLY PHILLIPS, Maria A Solorzano, [address], [place], [address], 5 09:20:27 urinalysis, complete 2014 015 BRADLY PHILLIPS, Maria A Solorzano, [address], [place], [address], 5 09:20:26 CBC 2014 015 Maria A PORRAS, [address], [place], [address], 5 09:20:25 lipid panel, serum 2014 015 Maria A PORRAS, [address], [place], [address], 5 09:20:26 CMP, serum or plasma 2014 015 Maria A PORRAS, [address], [place], [address], 5 09:20:25 HbA1c (hemoglobin A1c), blood 2014 015 [facility], [address], [address], [place], [address], 5 09:20:27 Referral None recorded. Procedures None recorded. Surgeries None recorded. Imaging None recorded. Medication Orders paroxetine 10 mg tablet 2015 016 [facility], [address] [place], [address], 6 15:52:45 Jencycla 0.35 mg tablet 2015 016 [facility], [address] [place] [address], [address], 6 15:52:45 paroxetine 10 mg tablet 2014 015 [facility], [facility] [place], [address], 5 12:28:00 Jencycla 0.35 mg tablet 2014 015 [facility], [address] [place], [address], 5 12:28:00 Jencycla 0.35 mg tablet 2014 015 [facility], [address] [place], [address], 5 12:24:51 Jencycla 0.35 mg tablet 2014 015 [facility], [address] [place], [address], 5 14:37:10 doxycycline hyclate 100 mg capsule 2014 015 [facility], [address] [place], [address], 5 12:20:14 Patient TargetsNo targets recorded. Patient Instructions Encounter Date Encounter Id Patient Instructions Last Modified By Organization Details Last Modified Time 02/04/2015 [id number] Patient declined flu vaccine eewig Not available 02/04/2015 11:28:57 08/04/2015 [id number] Patient will bring her labs from Dr. Briggs's office to be scanned into computer eewig Not available 08/04/2015 15:52:45 Reason for Referral None Reported. Results Created Date Observation Date Name Description Value Unit Range Abnormal Flag Note LastModifiedBy Organization Detail LastModifiedTime 09/09/19 15 09/09/2014 CBC WBC 11.9 x10e3 /uL 3.4-10 .8 high Not Available [facility] ([facility]) [address] [place], [address], 09/09/2014 09:20:25 09/09/19 15 09/09/2014 CBC RBC 4.44 x10e6 /uL 3.77-5 .28 Not Available [facility] ([facility]) [address] [place], [address], 09/09/2014 09:20:25 09/09/19 15 09/09/2014 CBC hemoglobin 13.4 g/dL 11.1-1 5.9 Not Available [facility] ([facility]) [address] [place], [address], 09/09/2014 09:20:25 09/09/1909/09/2014 CBC hematocrit 40.5 % 34.0-4 6.6 Not Available [facility] ([facility]) [address] [place], [address], 09/09/2014 09:20:25 09/09/19 15 09/09/2014 CBC MCV 91 fL 79-97 Not Available [facility] ([facility]) [address] [place], [address], 09/09/2014 09:20:25 09/09/19 15 09/09/2014 CBC MCH 30.2 pg 26.6-3 3.0 Not Available [facility] ([facility]) [address] [facility], [place], [address], 09/09/2014 09:20:25 09/09/19 15 09/09/2014 CBC MCHC 33.1 g/dL 31.5-3 5.7 Not Available [facility] ([facility]) [address] [facility], [place], [address], 09/09/2014 09:20:25 09/09/19 15 09/09/2014 CBC RDW 14.0 % 12.3-1 5.4 Not Available [facility] ([facility]) [address] [facility], [place], [address], 09/09/2014 09:20:25 09/09/19 15 09/09/2014 CBC platelets 297 x10e3 /uL 150-37 9 Not Available [facility] ([facility]) [address] [facility], [place], [address], 09/09/2014 09:20:25 09/09/19 15 09/09/2014 CBC neutrophils 68 % Not Avai lable [facility] ([facility]) [address] [facility], [place], [address], 09/09/2014 09:20:25 09/09/19 15 09/09/2014 CBC lymphs 25 % Not Available [facility] ([facility]) [address] [facility], [place], [address], 09/09/2014 09:20:25 09/09/19 15 09/09/2014 CBC monocytes 6 % Not Availa ble [facility] ([facility]) [address] [facility], [place], [address], 09/09/2014 09:20:25 09/09/19 15 09/09/2014 CBC eos 1 % Not Available [facility] ([facility]) [address] [facility], [place], [address], 09/09/2014 09:20:25 09/09/19 15 09/09/2014 CBC basos 0 % Not Available [facility] ([facility]) [address] [facility], [place], [address], 09/09/2014 09:20:25 09/09/19 15 09/09/2014 CBC immature cells ONCOLOGY PHYSICIAN Not Available [facility] ([facility]) [address] [facility], [place], [address], 09/09/2014 09:20:25 09/09/19 15 09/09/2014 CBC neutrophils (absolute) 8.0 x10e3 /uL 1.4-7. 0 high Not Available [facility] ([facility]) [address] [facility], [place], [address], 09/09/2014 09:20:25 09/09/19 15 09/09/2014 CBC lymphs (absolute) 3.0 x10e3 /uL 0.7-3. 1 Not Available [facility] ([facility]) [address] [facility], [place], [address], 09/09/2014 09:20:25 09/09/19 15 09/09/2014 CBC monocytes(ab solute) 0.7 x10e3 /uL 0.1-0. 9 Not Available [facility] ([facility]) [address] [facility], [place], [address], 09/09/2014 09:20:25 09/09/19 15 09/09/2014 CBC eos (absolute) 0.2 x10e3 /uL 0.0-0. 4 Not Available [facility] ([facility]) [address] [facility], [place], [address], 09/09/2014 09:20:25 09/09/19 15 09/09/2014 CBC baso (absolute) 0.0 x10e3 /uL 0.0-0. 2 Not Available [facility] ([facility]) [address] [facility] [place], [address], 09/09/2014 09:20:25 09/09/19 15 09/09/2014 CBC immature granulocytes 0 % Not Available [facility] ([facility]) [address] [facility] [place], [address], 09/09/2014 09:20:25 09/09/19 15 09/09/2014 CBC immature grans (abs) 0.0 x10e3 /uL 0.0-0. 1 Not Available [facility] ([facility]) [address] [facility] [place], [address], 09/09/2014 09:20:25 09/09/19 15 09/09/2014 CBC NRBC ONCOLOGY PHYSICIAN Not Available [facility] ([facility]) [address] [facility] [place], [address], 09/09/2014 09:20:25 09/09/19 15 09/09/2014 CBC hematology comments: ONCOLOGY PHYSICIAN Not Available [facility] ([facility]) [address] [facility] [place], [address], 09/09/2014 09:20:25 09/09/19 15 09/09/2014 CMP, serum or plasm a glucose, serum 83 mg/dL 65-99 Not Available [facility] ([facility]) [address] [facility] [place], [address], 09/09/2014 09:20:25 09/09/19 15 09/09/2014 CMP, serum or plasm a BUN 21 mg/dL 6-24 Not Available [facility] ([place] [facility]) [address] [facility] [place], [address], 09/09/2014 09:20:25 09/09/19 15 09/09/2014 CMP, serum or plasm a creatinine, serum 1.13 mg/dL 0.57-1 .00 high Not Available [facility] ([place] [facility]) [address] [facility], [place], [address], 09/09/2014 09:20:25 09/09/19 15 09/09/2014 CMP, serum or plasm a eGFR if nonafricn AM 58 mL/mi n/1.7 3 >59 low Not Available [facility] ([facility]) [address] [facility], [place], [address], 09/09/2014 09:20:25 09/09/19 15 09/09/2014 CMP, serum or plasm a eGFR if africn AM 67 mL/mi n/1.7 3 >59 Not Available [facility] ([facility]) [address] [place], [address], 09/09/2014 09:20:25 09/09/19 15 09/09/2014 CMP, serum or plasm a BUN/creatini ne ratio 19 9-23 Not Available [facility] ([facility]) [address] [place], [address], 09/09/2014 09:20:25 09/09/19 15 09/09/2014 CMP, serum or plasm a sodium, serum 140 mmol/ L 134-14 4 Not Available [facility] ([facility]) [address] [place], [address], 09/09/2014 09:20:25 09/09/19 15 09/09/2014 CMP, serum or plasm a potassium, serum 4.7 mmol/ L 3.5-5. 2 Not Available [facility] ([facility]) [address] [place], [address], 09/09/2014 09:20:25 09/09/19 15 09/09/2014 CMP, serum or plasm a chloride, serum 100 mmol/ L 97-108 Not Available [facility] ([facility]) [address] [place], [address], 09/09/2014 09:20:25 09/09/19 15 09/09/2014 CMP, serum or plasm a carbon dioxide, total 21 mmol/ L 18-29 Not Available [facility] ([facility]) [address] [facility] [place], [address], 09/09/2014 09:20:25 09/09/19 15 09/09/2014 CMP, serum or plasm a calcium, serum 9.3 mg/dL 8.7-10 .2 Not Available [facility] ([facility]) [address] [facility] [place], [address], 09/09/2014 09:20:25 09/09/19 15 09/09/2014 CMP, serum or plasm a protein, total, serum 6.8 g/dL 6.0-8. 5 Not Available [facility] ([facility]) [address] [facility] [place], [address], 09/09/2014 09:20:25 09/09/19 15 09/09/2014 CMP, serum or plasm a albumin, serum 4.5 g/dL 3.5-5. 5 Not Available [facility] ([facility]) [address] [facility] [place], [address], 09/09/2014 09:20:25 09/09/19 15 09/09/2014 CMP, serum or plasm a globulin, total 2.3 g/dL 1.5-4. 5 Not Available [facility] ([facility]) [address] [place], [address], 09/09/2014 09:20:25 09/09/19 15 09/09/2014 CMP, serum or plasm a A/G ratio 2.0 1.1-2. 5 Not Available [facility] ([facility]) [address] [facility] [place], [address], 09/09/2014 09:20:25 09/09/19 15 09/09/2014 CMP, serum or plasm a bilirubin, total 0.6 mg/dL 0.0-1. 2 Not Available [facility] ([facility]) [address] [place], [address], 09/09/2014 09:20:25 09/09/19 15 09/09/2014 CMP, serum or plasm a alkaline phosphatase, S 68 IU/L 39-117 Not Available [facility] ([facility]) [address] [facility] [place], [address], 09/09/2014 09:20:25 09/09/19 15 09/09/2014 CMP, serum or plasm a AST (SGOT) 21 IU/L 0-40 Not Available [facility] ([facility]) [address] [facility] [place], [address], 09/09/2014 09:20:25 09/09/19 15 09/09/2014 CMP, serum or plasm a ALT (SGPT) 13 IU/L 0-32 Not Available [facility] ([facility]) [address] [facility] [place], [address], 09/09/2014 09:20:25 09/09/19 15 09/09/2014 urina lysis , compl ete specific gravity 1.018 1.005- 1.030 Not Available [facility] ([facility]) [address] [place], [address], 09/09/2014 09:20:25 09/09/19 15 09/09/2014 urina lysis , compl ete pH 6.5 5.0-7. 5 Not Available [facility] ([facility]) [address] [place], [address], 09/09/2014 09:20:25 09/09/19 15 09/09/2014 urina lysis , compl ete urine-color YELLOW yellow Not Available [facility] ([facility]) [address] [place], [address], 09/09/2014 09:20:25 09/09/19 15 09/09/2014 urina lysis , compl ete appearance CLEAR clear Not Available [facility] ([facility]) [address] [place], [address], 09/09/2014 09:20:25 09/09/19 15 09/09/2014 urina lysis , compl ete WBC esterase NEGATI VE negati ve Not Available [facility] ([facility]) [address] [facility], [place], [address], 09/09/2014 09:20:25 09/09/19 15 09/09/2014 urina lysis , compl ete protein TRACE negati ve/tra ce Not Available [facility] ([facility]) [address] [facility], [place], [address], 09/09/2014 09:20:25 09/09/19 15 09/09/2014 urina lysis , compl ete glucose NEGATI VE negati ve Not Available [facility] ([facility]) [address] [place], [address], 09/09/2014 09:20:25 09/09/19 15 09/09/2014 urina lysis , compl ete glucose reflex ONCOLOGY PHYSICIAN Not Available [facility] ([facility]) [address] [place], [address], 09/09/2014 09:20:25 09/09/19 15 09/09/2014 urina lysis , compl ete ketones NEGATI VE negati ve Not Available [facility] ([facility]) [address] [place], [address], 09/09/2014 09:20:25 09/09/19 15 09/09/2014 urina lysis , compl ete occult blood 2+ negati ve abnormal Not Available [facility] ([facility]) [address] [place], [address], 09/09/2014 09:20:25 09/09/19 15 09/09/2014 urina lysis , compl ete bilirubin NEGATI VE negati ve Not Available [facility] ([facility]) [address] [place], [address], 09/09/2014 09:20:25 09/09/19 15 09/09/2014 urina lysis , compl ete urobilinogen ,semi-qn 0.2 mg/dL 0.0-1. 9 Not Available [facility] ([facility]) [address] [facility], [place], [address], 09/09/2014 09:20:25 09/09/19 15 09/09/2014 urina lysis , compl ete nitrite, urine NEGATI VE negati ve Not Available [facility] ([facility]) [address] [place], [address], 09/09/2014 09:20:25 09/09/19 15 09/09/2014 urina lysis , compl ete microscopic examination SEE BELOW: MICRO SCOPI C WAS INDIC ATED AND WAS PERFO RMED. Not Available [facility] ([facility]) [address] [place], [address], 09/09/2014 09:20:25 09/09/19 15 09/09/2014 urina lysis , compl ete WBC 0-5 /hpf 0 - 5 Not Available [facility] ([facility]) [address] [place], [address], 09/09/2014 09:20:25 09/09/19 15 09/09/2014 urina lysis , compl ete RBC 3-10 /hpf 0 - 2 abnormal Not Available [facility] ([facility]) [address] [place], [address], 09/09/2014 09:20:25 09/09/19 15 09/09/2014 urina lysis , compl ete epithelial cells (non renal) 0-10 /hpf 0 - 10 Not Available [facility] ([facility]) [address] [place], [address], 09/09/2014 09:20:25 09/09/19 15 09/09/2014 urina lysis , compl ete epithelial cells (renal) ONCOLOGY PHYSICIAN Not Available [facility] ([facility]) [address] [facility], [place], [address], 09/09/2014 09:20:25 09/09/19 15 09/09/2014 urina lysis , compl ete casts ONCOLOGY PHYSICIAN Not Available [facility] ([facility]) [address] [facility], [place], [address], 09/09/2014 09:20:25 09/09/19 15 09/09/2014 urina lysis , compl ete cast type ONCOLOGY PHYSICIAN Not Available [facility] ([facility]) [address] [facility], [place], [address], 09/09/2014 09:20:25 09/09/19 15 09/09/2014 urina lysis , compl ete crystals ONCOLOGY PHYSICIAN Not Available [facility] ([facility]) [address] [facility], [place], [address], 09/09/2014 09:20:25 09/09/19 15 09/09/2014 urina lysis , compl ete crystal type ONCOLOGY PHYSICIAN Not Available [facility]) [address] [facility], [place], [address], 09/09/2014 09:20:25 09/09/19 15 09/09/2014 urina lysis , compl ete mucus threads ONCOLOGY PHYSICIAN Not Available [facility] ([facility]) [address] [facility], [place], [address], 09/09/2014 09:20:25 09/09/19 15 09/09/2014 urina lysis , compl ete bacteria FEW none seen/f ew Not Available [facility] ([facility]) [address] [facility], [place], [address], 09/09/2014 09:20:25 09/09/19 15 09/09/2014 urina lysis , compl ete yeast ONCOLOGY PHYSICIAN Not Available [facility] ([facility]) [address] [facility], [place], [address], 09/09/2014 09:20:25 09/09/19 15 09/09/2014 urina lysis , compl ete trichomonas ONCOLOGY PHYSICIAN Not Available [facility] ([facility]) [address] [place], [address], 09/09/2014 09:20:25 09/09/19 15 09/09/2014 urina lysis , compl ete comment ONCOLOGY PHYSICIAN Not Available [facility] ([facility]) [address] [place], [address], 09/09/2014 09:20:25 09/09/19 15 09/09/2014 lipid panel , serum cholesterol, total 162 mg/dL 100-19 9 Not Available [facility] ([facility]) [address] [place], [address], 09/09/2014 09:20:26 09/09/19 15 09/09/2014 lipid panel , serum triglyceride s 142 mg/dL 0-149 Not Available [facility] ([facility]) [address] [place], [address], 09/09/2014 09:20:26 09/09/19 15 09/09/2014 lipid panel , serum HDL cholesterol 45 mg/dL >39 ACCOR DING TO ATP-I II GUIDE LINES , HDL-C >59 MG/DL IS CONSI DERED A NEGAT EDOUARD RISK FACTO R FOR CHD. Not Available [facility] ([facility]) [address] [place], [address], 09/09/2014 09:20:26 09/09/19 15 09/09/2014 lipid panel , serum VLDL cholesterol tran 28 mg/dL 5-40 Not Available [facility] ([facility]) [address] [place], [address], 09/09/2014 09:20:26 09/09/19 15 09/09/2014 lipid panel , serum LDL cholesterol calc 89 mg/dL 0-99 Not Available [facility] ([facility]) [address] [place], [address], 09/09/2014 09:20:26 09/09/19 15 09/09/2014 lipid panel , serum comment: ONCOLOGY PHYSICIAN Not Available [facility] ([facility]) [address] [place], [address], 09/09/2014 09:20:26 09/09/19 15 09/09/2014 lipid panel , serum T. chol/HDL ratio 3.6 ratio _unit s 0.0-4. 4 T. CHOL/ HDL RATIO MEN WOMEN 1/2 AVG.R ISK 3.4 3.3 AVG.R ISK 5.0 4.4 2X AVG.R ISK 9.6 7.1 3X AVG.R ISK 23.4 11.0 Not Available [facility] ([facility]) [address] [place], [address], 09/09/2014 09:20:26 09/09/19 15 09/09/2014 HbA1c (hemo globi n A1c), blood hemoglobin A1C 6.0 % 4.8-5. 6 high INCRE ASED RISK FOR DIABE AGUSTIN: 5.7 - 6.4 DIABE AGUSTIN: >6.4 GLYCE SACRLETT CONTR OL FOR ADULT S WITH DIABE AGUSTIN: <7.0 Not Available [facility] ([facility]) [address] [place], [address], 09/09/2014 09:20:26 09/09/1909/09/2014 TSH, serum or plasm a TSH 1.190 uIU/m L 0.450- 4.500 Not Available [facility] ([facility]) [address] [place], [address], 09/09/2014 09:20:27 09/09/1909/09/2014 album in, urine microalbumin , urine 18.2 ug/mL 0.0-17 .0 high Not Available [facility] ([facility]) [address] [place], [address], 09/09/2014 09:20:27 Result Notes None recorded. Problems Name Problem SNOMED Code Status Onset Date Resolution Date Notes Provider Name and Address Organization Details Recorded Time Allergic rhinitis 74325033 Active LILLY Colvin Attn: Accounting ,[address] [facility], [place], [place], [address] [place] [address] , [place] - [facility] 5 14:18:13 Morbid obesity 457827940 Active Beata Marina PA-C Attn: Accounting ,[address] [facility], [place], [place], [address] [place] [address] , [facility] 6 15:52:45 Essential hypertension 19035489 Active Beata Marina PA-C Attn: Accounting ,[address] [facility], [place], [place], [address] [place] [address] , [facility] - [facility] 6 15:52:45 Contraception status 887325230 Active Beata Marina PA-C Attn: Accounting ,[address] [facility], [place], [place], [address] [place] [address] , [facility] - [facility] 6 15:52:45 Acute sinusitis 55462244 Active LILLY Colvin Attn: Accounting ,[address] [facility], [place], [place], [address] [place] [address] , [place] [facility] 5 14:37:10 Blood glucose outside reference range 418377136 Active Beata Marina PA-C Attn: Accounting ,[address] [facility], [place], [place], [address] [place] [address] , [place] [facility] 5 09:44:34 Menopausal depression 89689911 Noris Marina PA-C Attn: Accounting ,[address] [facility], [place], [place], [address] [place] [address] , [place] [facility] 6 15:52:45 Irregular periods 01625070 Noris Marina PA-C Attn: Accounting ,[address] [place], [place], [address] [place] [address] , [facility] - [facility] 6 15:52:45 Problem Notes None recorded. Procedures Surgical History Date Name Laterality Status Provider Name and Address Organization Details Recorded Time 2 Caesarean Section completed Anastasiia Mireles LPN [place] [facility] 06/02/2014 14:04:35 8 Other completed Anastasiia Mireles LPN [place] [facility] 06/02/2014 14:04:35 Imaging Results None recorded. Procedure Notes None recorded. Medical Equipment None Reported. Allergies Allergen ID Allergen Name Allergen Category Reaction Reaction Severity Criticality Documentation Date Start Date Code Code System Note Provider Name and Address Organization Details Recorded Time 48710 Product containin g penicilli n (product) medicatio n Not available Not available Not available 06/02/2014 86312 8001 SNOMED Not Available Not Available Not Available 18995 latex environme nt,medica tion Not available Not available Not available 06/02/2014 69545 91 RxNorm Not Available Not Available Not Available Medications Name Sig Start Date Stop Date Status Note LastModified by Organization Details LastModified Time doxycyclin e hyclate 100 mg capsule Take 1 capsule twice a day by oral route for 7 days. 2014 active Not Available Not Available Not Avai lable paroxetine 10 mg tablet Take 1 tablet every day by oral route. 2015 active Not Available Not Available Not Avai lable metoprolol tartrate 100 mg tablet Take 1 tablet every day by oral route at bedtime. active Rx by Dr. Briggs Not Available Not Available Not Available hydrochlor othiazide 25 mg tablet Take 1 tablet every day by oral route. active Rx by Dr. Briggs Not Available Not Available Not Available lisinopril 40 mg tablet Take 1 tablet every day by oral route. active Rx by Dr. Briggs Not Available Not Available Not Available Jencycla 0.35 mg tablet Take 1 tablet every day by oral route. active Not Available Not Available No t Available Vitals Date Recorded Respiratory rate Body weight Oxygen saturation Oxygen saturation in Arterial blood by Pulse oximetry Body height Body mass index (BMI) Body temperature Heart rate Systolic blood pressure Diastolic blood pressure Provider Name and Address Organization Details Last Updated DateTime 5 20 /min 132525. 136421 g 96 % 96 % 166.37 cm 52 kg/m2 97.5 [degF] 81 /min 130 mm[Hg] 92 mm[Hg] Azul [facility] 5 12:12:39 Date Recorded Body weight Oxygen saturation Oxygen saturation in Arterial blood by Pulse oximetry Body height Body mass index (BMI) Heart rate Body temperature Systolic blood pressure Diastolic blood pressure Provider Name and Address Organization Details Last Updated DateTime 5 858460. 641408 g 99 % 99 % 166.37 cm 50.7 kg/m2 76 /min 98.2 [degF] 128 mm[Hg] 88 mm[Hg] Alisia [facility] 5 11:13:55 Date Recorded Body height Body temperature Heart rate Respiratory rate Systolic blood pressure Diastolic blood pressure Provider Name and Address Organization Details Last Updated DateTime 6 166.37 cm 98.2 [degF] 60 /min 16 /min 132 mm[Hg] 80 mm[Hg] Desean Harry [facility] 6 14:24:56 Date Recorded Body weight Body mass index (BMI) Provider Name and Address Organization Details Last Updated DateTime 08/04/2015 444081.465085 g 51.3 kg/m2 Beata Marina PA-C Attn: Accounting,[address] [place], [address], [facility] 08/04/2015 14:43:50 Date Recorded Respiratory rate Oxygen saturation Oxygen saturation in Arterial blood by Pulse oximetry Body weight Body temperature Heart rate Body mass index (BMI) Body height Provider Name and Address Organization Details Last Updated DateTime 5 18 /min 100 % 100 % 288528. 52035 g 97.6 [degF] 74 /min 57.2 kg/m2 160.02 cm Anastasiia Mireles LPN [facility] 5 14:04:35 Date Recorded Systolic blood pressure Diastolic blood pressure Provider Name and Address Organization Details Last Updated DateTime 06/02/2014 110 mm[Hg] 80 mm[Hg] LILLY Colvin Attn: Accounting,[address] [place], [address], [facility] 06/02/2014 14:37:22 Social History Question Answer Notes LastModified by Organizat ion Details LastModified Time Tobacco Smoking Status Former Smoker Anastasiia Mireles, [employer] null, [place] [facility] 06/02/2014 14:07:47 What Is Your Level Of Alcohol Consumption? None Information not available 06/02/2014 What Is Your Level Of Caffeine Consumption? None Information not available 06/02/2014 How Much Tobacco Do You Chew? None Information not available 06/02/2014 Are You Currently Employed? Yes Information not available 06/02/2014 What Type Of Diet Are You Following? SPECIFIC No Carbs Information not available 06/02/2014 Which Illicit Or Recreational Drugs Have You Used? No Information not available 06/02/2014 Education 2 Year College Information not available 06/02/2014 What Is Your Occupation? [employer] Information not available 06/02/2014 Are There Any Guns Present In Your Home? No Information not available 06/02/2014 Hard Of Hearing Or Deaf In One Or Both Ears? No Information not available 06/02/2014 Legally Blind In One Or Both Eyes? No Information not available 06/02/2014 Live Alone Or With Others? With Others Information not available 06/02/2014 How Many Children Do You Have? 1 Information not available 06/02/2014 Do You Use Protection During Sex? No Information not available 06/02/2014 Seat Belts Used Routinely Yes Information not available 06/02/2014 Are You Sexually Active? Yes Information not available 06/02/2014 Smoke Alarm In Home Yes Information not available 06/02/2014 At What Age Did You Start Smoking Tobacco? 23 Information not available 06/02/2014 Are You Passively Exposed To Smoke? Yes Information not available 06/02/2014 How Much Tobacco Do You Smoke? 0.5 PPD Information not available 06/02/2014 General Stress Level Low Information not available 06/02/2014 How Many Years Have You Smoked Tobacco? 10 Information not available 06/02/2014 Sex: Unknown Functional Status Question Answer Note LastModified by Organizat ion Details LastModified Time Are you able to care for yourself? Yes Information not available 06/02/2014 What is your exercise level? Occasional Information not available 06/02/2014 Mental Status None recorded. Family History Relationship Description Onset Age of this Age Resolved Age Notes LastModified by Organization Details LastModified Time Mother Alive bobby Not available 0 09/08/2014 12:12:39 Father Family history unknown [email or web address] Not available 2014 12:12:39 Notes:no brothers or sisters Medical History Condition Response High Blood Pressure Y Allergies Y Gynecological HistoryNo gynecological history recorded. Obstetrics History GPAL:G 0 P 0 0 0 0 Past Encounters Encounter ID Performer Location Encounter Start Date Encounter Closed Date Diagnosis/Indication Diagnosis SNOMED-CT Code Diagnosis ICD10 Code Diagnosis Note [id number] [facility] [address] [place] [address] 06/02/2014 13:50:38 06/02/2014 14:37:50 Contraception status 924892841 Acute sinusitis [id number] [facility] (Adult Med) [address] [place] [id number] 09/08/2014 11:50:33 09/08/2014 12:25:19 Contraception status 150793398 Morbid obesity 370627701 lost 5lbs - goal is 30lbs in 6 months Essential hypertension 57056318 [id number] [facility] (Adult Med) [address] [place] [id number] 02/04/2015 10:59:35 02/04/2015 12:28:58 Contraception status 956236802 Z30.41 Discussed that she is likely beginning to go through menopause and that her periods may be irregular from here on out - will reassess in 6 months - she would like to continue at this time with the OCPs Morbid obesity 833121820 E66.01 lost 8lbs - goal is 15lbs in 6 months Encouraged to bike 5 miles/day and to walk and do some weight lifting Essential hypertension 72742217 I10 Well controlled Menopausal depression 84 122447 F32.8 Will begin on paxil 10mg [id number] [facility] (Adult Med) [address] [place] [id number] 08/04/2015 14:06:18 08/04/2015 15:53:20 Morbid obesity 169268827 E66.01 Will have insurance in 2 weeks - she is going to make an appointmen t with a provider at [facility] to discuss gastric bypass surgery/th e sleeve Advised to wear compressio n stockings for bilateral LE swelling, 2+ Advised to walk Advised to stay away from soda and sugary drinks Essential hypertension 16314731 I10 Well controlled and followed by Dr. Briggs Irregular periods 277587 07 N92.6 Patient advised to make an appointmen t with OBGYN - patient will have insurance within the next 2 weeks - we had discussed going through [facility] but advised patient that if she is going to have insurance shortly, it would not be [facility] for women's health or transvagin al Menopausal depression 84 049769 F32.8 Continue on paroxetine 10mg Contraception status 243 271073 Z30.41 Woud like to continue OCPs until appointmen t with OBGYN Health Concerns Section Related Observation LastModified by Organization Detai ls LastModified Time None Recorded Concern Status LastModified by Organization Details LastModified Time None Recorded Advance Directives Directive None Recorded Payers Encounter Date Sequence Insurance Name Policy Number Policy Beasley Covered Member ID Beasley Member ID Guarantor Name 06/02/2014 SLIDING FEE SCHEDULE - DISCOUNT Nolvia [place] 09/08/2014 SLIDING FEE SCHEDULE - DISCOUNT Nolvia [place] 02/04/2015 SLIDING FEE SCHEDULE - DISCOUNT Nolvia [place] 08/04/2015 1 *SELF PAY* [employer] [place] Notes Date Note Type Note Provider Name and Address Organization Details Recorded Time 02/04/2015 text/html MenopauseReporte d bypatient.Onset/Timing :1-6 months Quality:night sweats; sleep issues; erratic menses; mood changes; hot flashes 1-3 times/day Severity:mild Duration:intermittent Context:menses irregular; current contraception: (OCP) Alleviating Factors:exercise; increased rest Associated Symptoms:no abdominal pain; no pelvic pain; no abnormal bleeding; no vaginal discharge; no dysuria;depression;anx ietyOCP CheckReported bypatient.Associated Symptoms:no BTB menses; no side effects;irregular menses(one period in January, previous one was in October)ObesityReported bypatient.Nutrition:ea ts mostly healthy diet (once she found out she was pre-diabetic she began to try to eat better)Notes:down 8lbs at this visit Beata Marina PA-C Attn: Accounting,[address] [facility], [place], [address], [facility] 02/04/2015 12:28:19 08/04/2015 text/html MenopauseReporte d bypatient.Onset/Timing :1-6 months Quality:night sweats; sleep issues; erratic menses; mood changes; hot flashes 1-3 times/day Severity:mild Duration:intermittent Context:menses irregular; current contraception: (OCP) Alleviating Factors:exercise; increased rest Associated Symptoms:no abdominal pain; no pelvic pain; no abnormal bleeding; no vaginal discharge; no dysuria;depression;anx ietyOCP CheckReported bypatient.Associated Symptoms:no BTB menses; no side effects;irregular menses(One for 10 days in February, then March, April normal, May had two, June and July normal)ObesityReported bypatient.Lifestyle changes:not motivated to continue lifestyle changes(states that she is waiting for her to get insurance so that she talk to with someone at [facility] concerning the lap band)Notes:Had labs completed for Dr. Briggs in April and states that everything was normal minus being borderline diabetic Beata Marina PA-C Attn: Accounting,[address] [facility], [place], [address], [facility] 08/04/2015 15:53:08 OBGyn Episode No OBEpisode recorded.
--- OUTSIDE RECORDS SUMMARY | 2024-04-29 15:52 | XMS_ITS | Referral Summary ---
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 with neuro, she declines referral. Assessment & Plan (09/30/2021 3:06 PM CDT): Patient was reminded given her medical history and current medications that she should not be drinking alcohol. She was advised given the circumstances to consult with a neurologist, and she declines this referral at the current time. She was advised no driving, climbing, or swimming until an etiology is determined. She additionally declines any imaging on her legs. Transient disorientation 09/30/2021 Assessment & Plan (10/14/2021 11:48 AM CDT): Improved. Advised keeping appt for ct head. Advised no driving. Advised appt with neuro, she declines referral. Abrasion 09/30/2021 Assessment & Plan (09/30/2021 2:57 PM CDT): Will initiate bactrim Advised keeping wound clean and dry, discussed covering it when having to wear clothes as the cloth irritates it. History of type 2 diabetes mellitus 09/10/2021 Overview (09/10/2021): Hemoglobin A1c 4.8 - 5.6 6.9 High Pre-diabetes: 5.7 - 6.4 Diabetes: >6.4 Glycemic control for adults with diabetes: <7.0 Estimated Average Glucose 151 Specimen Collected: 03/17/16 05:41 Last Resulted: 03/17/16 12:00 Assessment & Plan (11/15/2021 4:02 PM CDT): Labs per surgery. Continue low-carb (<150 g/day), low-glycemic diet. Continue tirzepatide. Snoring 01/04/2021 Sleep disorder 01/04/2021 Hypersomnia 01/04/2021 Hyponatremia syndrome 12/13/2020 Hyponatremia 12/12/2020 Assessment & Plan (01/22/2021 2:28 PM BEDSPREAD CUTTER): Repeat cmp in 30d Assessment & Plan (12/15/2020 2:58 PM CDT): Repeat bmp this week Hypokalemia 12/12/2020 Assessment & Plan (10/14/2021 11:47 AM CDT): We reviewed recent labs, will repeat bmp this week. Assessment & Plan (01/22/2021 2:28 PM BEDSPREAD CUTTER): Continue with lasix and kcl Repeat a cmp in 30d Assessment & Plan (12/15/2020 2:58 PM CDT): Repeat bmp this week Insulin resistance 09/21/2020 Overview (09/21/2020): Fasting insulin 23.8; glucose 127 -- CLAUDIA-IR 7.5 Assessment & Plan (08/09/2021 10:59 AM CDT): Reviewed interim labs. Continue low-carb (<150 g/day), low-glycemic diet. Continue GLP-1 RA. Assessment & Plan (05/12/2021 9:49 PM BEDSPREAD CUTTER): Reviewed interim labs. Continue low-carb (<150 g/day), low-glycemic diet. Resume GLP-1 RA. Assessment & Plan (09/21/2020 4:21 PM CDT): Reviewed labs. Continue low-carb (<150 g/day), low-glycemic diet. Contact dermatitis 09/08/2020 Assessment & Plan (09/08/2020 12:52 PM CDT): Will use mdp and topical triamcinolone Lymphedema of both lower extremities 09/08/2020 Assessment & Plan (01/22/2021 2:28 PM BEDSPREAD CUTTER): Continue with lasix and natividad benítez Assessment & Plan (10/23/2020 4:42 PM CDT): We reviewed venous insuff studies. She will continue with natividad benítez 8h/d. We will increase her lasix and repeat a bmp in the next 4-6w. Assessment & Plan (09/08/2020 12:53 PM CDT): Will order venous insuff studies to further evaluate Offered change to metolazone, however she declines at this time. She was advised caution and not to increase herself to 80mg every day of lasix as it could effect her kidneys. Vitamin D deficiency 09/08/2020 Assessment & Plan (10/23/2020 4:41 PM CDT): We reviewed recent labs. Continue vit d supplementation. Physical exam, annual 08/18/2020 Assessment & Plan (11/15/2021 4:02 PM CDT): Reviewed calorie restriction based on BMR as previously detailed. Reviewed recommendation/goal of >/= 150 minutes/week moderate-intensity aerobic exercise. Encouraged her to track her food; Discussed common sources of error in monitoring calories such as not including condiments or beverages. Assessment & Plan (08/09/2021 11:03 AM CDT): Reviewed calorie restriction based on BMR as previously detailed. Try reducing daily kcal to 1200. Reviewed recommendation/goal of >/= 150 minutes/week moderate-intensity aerobic exercise. Asked to keep detailed food diary for at least 1 week and bring to next visit and/or continue tracking on phone. Assessment & Plan (05/12/2021 9:46 PM BEDSPREAD CUTTER): Reviewed calorie restriction based on BMR as previously detailed. Reviewed recommendation/goal of >/= 150 minutes/week moderate-intensity aerobic exercise. Asked to keep detailed food diary for at least 1 week and bring to next visit and/or continue tracking on phone. Assessment & Plan (04/01/2021 8:26 PM BEDSPREAD CUTTER): Reviewed calorie restriction based on BMR as previously detailed. Reviewed recommendation/goal of >/= 150 minutes/week moderate-intensity aerobic exercise. Asked to keep detailed food diary for at least 1 week and bring to next visit and/or continue tracking on phone. Assessment & Plan (09/21/2020 4:18 PM CDT): Reviewed calorie restriction based on BMR as previously detailed. Reviewed recommendation/goal of >/= 150 minutes/week moderate-intensity aerobic exercise. Asked to keep detailed food diary for at least 1 week and bring to next visit and/or continue tracking on phone. Metabolic and nutritional disorder 08/18/2020 Assessment & Plan (04/01/2021 8:26 PM BEDSPREAD CUTTER): Continue low-carb (<150 g/day), low-glycemic diet. Continue semaglutide. Assessment & Plan (08/18/2020 2:14 PM CDT): Reviewed recent labs. Discussed increased risk for DM in setting of obesity and FHx DM. Discussed insulin resistance including effect on weight and risk for progression to diabetes. Recommended low-carb, low-glycemic diet; choose whole grains and avoid more highly processed carbohydrates. Discussed potential benefits of this w/r/t gut microbiome. Referred to ADA and [employer] websites for additional information on topics including glycemic index/carbohydrate choices, protein sources. Class 3 severe obesity due t o excess calories with serious comorbidity and body mass index (BMI) of 60.0 to 69.9 in adult 07/20/2020 Assessment & Plan (04/17/2024 9:03 AM BEDSPREAD CUTTER): Discussed the patient's BMI. The BMI is above average. BMI management plan is completed. BMI Follow-up includes: nutrition counseling, exercise counseling and education provided. Assessment & Plan (11/15/2021 4:03 PM CDT): Obesity is unchanged. Plan: Diet interventions: as noted.., Regular aerobic exercise program discussed. and medication as prescribed. Assessment & Plan (08/09/2021 11:02 AM CDT): Obesity is improving with treatment. Diet interventions: as noted. Regular aerobic exercise program discussed. Pharmacotherapy as ordered. Continue Wegovy. Assessment & Plan (06/21/2021 9:21 AM CDT): Obesity is unchanged. Discussed the patient's BMI. The BMI is above average. BMI management plan is completed. BMI Follow-up includes: nutrition counseling, exercise counseling and education provided. Assessment & Plan (05/12/2021 9:52 PM BEDSPREAD CUTTER): Obesity is worsening. Diet interventions: resume Wegovy. Regular aerobic exercise program discussed. Pharmacotherapy as ordered. Assessment & Plan (04/01/2021 8:28 PM BEDSPREAD CUTTER): Obesity is unchanged. Diet interventions: as noted. Regular aerobic exercise program discussed. Pharmacotherapy as ordered. Continue Wegovy. Assessment & Plan (01/22/2021 2:30 PM BEDSPREAD CUTTER): Obesity is unchanged. Discussed the patient's BMI. The BMI is above average. BMI management plan is completed. BMI Follow-up includes: nutrition counseling, exercise counseling and education provided. Assessment & Plan (09/21/2020 4:22 PM CDT): Obesity is improving with lifestyle modifications. Diet interventions: as noted. Regular aerobic exercise program discussed. Pharmacotherapy as ordered. Discussed options and will start Wegovy. Discussed risks, benefits, alternatives, potential side effects. No personal or family history of MTC or MEN2. Reviewed dosing/titration. Referred to websites for additional instructions/info/video. Assessment & Plan (08/18/2020 2:11 PM CDT): Obesity is worsening. General weight loss/lifestyle modification strategies discussed (elicit support from others; identify saboteurs; non-food rewards, etc). Diet interventions: as noted. Informal exercise measures discussed, e.g. taking stairs instead of elevator. Regular aerobic exercise program discussed. Discussed starting Wegovy when available. Assessment & Plan (08/04/2020 3:12 PM CDT): Obesity is unchanged. Discussed the patient's BMI. The BMI is above average. BMI management plan is completed. BMI Follow-up includes: nutrition counseling, exercise counseling and education provided. Assessment & Plan (07/20/2020 5:06 PM CDT): Obesity is unchanged. Discussed the patient's BMI. The BMI is above average. BMI management plan is completed. BMI Follow-up includes: nutrition counseling, exercise counseling and education provided. Chest pain 07/20/2020 Assessment & Plan (10/23/2020 4:41 PM CDT): We reviewed stress test She has appt pending with cv that she will keep Assessment & Plan (09/08/2020 12:51 PM CDT): Will try arrange a sooner appt for her Advised stress test, will schedule She was advised not to work out until she sees the citizenship instructor She was advised no etoh Assessment & Plan (07/28/2020 11:52 AM CDT): We reviewed normal troponin Stress test and cv referral pending Assessment & Plan (07/20/2020 7:24 PM CDT): ekg in office, reviewed with patient. She was advised to report to the er now and refused. She was advised if chest pain returns to report to the er. Constipation 07/20/2020 Assessment & Plan (07/28/2020 11:52 AM CDT): resolved Assessment & Plan (07/20/2020 7:25 PM CDT): Kub, labs, will notify her of results as available. Advised bland diet, soft foods. Advised to er if symptoms worsen. Abdominal pain 07/20/2020 Assessment & Plan (07/28/2020 11:52 AM CDT): resolved Assessment & Plan (07/20/2020 7:24 PM CDT): Kub, labs, will notify of results as available Allergic rhinitis 03/10/2020 Blood glucose abnormal 03/10/2020 Irregular periods 03/10/2020 History of bariatric surgery 02/03/2017 Assessment & Plan (08/18/2020 2:13 PM CDT): Reviewed surgery notes, labs. Assessment & Plan (03/10/2020 4:31 PM BEDSPREAD CUTTER): Fasting labs entered, will notify patient of results as available Intestinal malabsorption 02/03/2017 Anxiety 01/23/2016 Assessment & Plan (11/04/2021 7:59 AM CDT): She was advised not to take others' medications as there can be potential interaction with her current medications. She feels she is controlled on the effexor, will continue same dosing at this time. Will increase the xanax to 0.5mg qhs/prn. She was reminded of potential addictiveness with this medication and to consider adding medications to assist in sleep quality. She declines at this time and would prefer to increase the xanax. Assessment & Plan (10/14/2021 11:47 AM CDT): Decrease xanax to 0.25mg qhs prn anxiety. Assessment & Plan (06/21/2021 9:21 AM CDT): Stable, continue medications the same at this time Assessment & Plan (01/22/2021 2:28 PM BEDSPREAD CUTTER): Increase effexor Repeat cmp in 30d to evaluate for hyponatremia Assessment & Plan (09/08/2020 12:52 PM CDT): Advised her of potential qt prolongation with olanzepine. Reviewed up to date guidelines and will increase her effexor by 37.5mg every day. She was advised that her xanax will not be increased. 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 Assessment & Plan (11/04/2021 7:59 AM CDT): Refill medications the same at this time. Assessment & Plan (09/30/2021 2:57 PM CDT): Will refer for second cardiology opinion at her request Assessment & Plan (06/21/2021 9:22 AM CDT): Patient advised to continue medications the same at this time. They will monitor home bp with goal 120-130/80s. We reviewed recent cmp. Assessment & Plan (08/18/2020 2:12 PM CDT): BP mildly elevated today. Reviewed role of diet, exercise, weight loss in controlling blood pressure. Recommended low sodium/DASH diet. Continue current medications. Assessment & Plan (08/04/2020 4:06 PM CDT): Increase beta-soto to 50 mg b.i.d.. Reminded goal diastolic of 60-80. Also reminded goal is pulse 60-90. She will call us over the next week with the results on increasing medication. She will keep her appointment with her citizenship instructor as planned. Assessment & Plan (07/28/2020 11:53 AM CDT): Discontinue lisinopril. Will start on bid metoprolol - we discussed that a dose adjustment will likely need to be made over the coming week. She will continue to monitor bp and pulse and call us over the next few days with results. We discussed ultimate goal of 120-130/80s with pulse 60-80. Assessment & Plan (03/10/2020 4:31 PM BEDSPREAD CUTTER): Continue medication same Fasting labs entered, will notify patient of results as available Obesity, morbid, BMI 40.0-49.9 11/26/2015 Assessment & Plan (03/20/2024 8:22 AM BEDSPREAD CUTTER): Discussed the patient's BMI. The BMI is above average. BMI management plan is completed. BMI Follow-up includes: nutrition counseling, exercise counseling and education provided. Assessment & Plan (04/27/2022 10:18 AM BEDSPREAD CUTTER): Discussed the patient's BMI. The BMI is above average. BMI management plan is completed. BMI Follow-up includes: nutrition counseling, exercise counseling and education provided. Assessment & Plan (10/23/2020 7:34 AM CDT): Obesity is unchanged. Discussed the patient's BMI. The BMI is above average. BMI management plan is completed. BMI Follow-up includes: nutrition counseling, exercise counseling and education provided. Assessment & Plan (09/08/2020 10:37 AM CDT): Obesity is unchanged. Discussed the patient's BMI. The BMI is above average. BMI management plan is completed. BMI Follow-up includes: nutrition counseling, exercise counseling and education provided. Assessment & Plan (08/04/2020 3:12 PM CDT): Obesity is unchanged. Discussed the patient's BMI. The BMI is above average. BMI management plan is completed. BMI Follow-up includes: nutrition counseling, exercise counseling and education provided. Assessment & Plan (07/28/2020 10:41 AM CDT): Obesity is unchanged. Discussed the patient's BMI. The BMI is above average. BMI management plan is completed. BMI Follow-up includes: nutrition counseling, exercise counseling and education provided. Resolved Problems Problem Noted Date Diagnosed Date Resolved Date Heart failure with reduced e jection fraction ([facility]) 03/03/2024 04/29/2024 Assessment & Plan (03/05/2024 12:30 PM BEDSPREAD CUTTER): TTE: EF 47% - Cardiology planning outpatient stress test - transition metoprolol 25 BID to metoprolol succinate 50 daily on discharge - continue home lasix 60 po daily - replete K < 4 and Mg < 2, check daily - shoemaker check Entresto , if not prohibitive should start this - if too expensive, RESHMA/ARB would be a back-up plan - also send shoemaker check for Jardiance/Farxiga 10 mg to consider starting at discharge - can [facility] cardiology (saw patient on 03/01) if specific questions about GDMT BMI 60.0-69.9, adult 04/27/2022 024 Assessment & Plan (08/31/2022 10:46 AM CDT): Discussed the patient's BMI. The BMI is above average. BMI management plan is completed. BMI Follow-up includes: nutrition counseling, exercise counseling and education provided. Assessment & Plan (07/11/2022 11:35 AM CDT): Discussed the patients BMI: The BMI is above average BMI management is complete. BMI follow-up includes: Nutrition Counseling and education provided Assessment & Plan (04/27/2022 10:18 AM BEDSPREAD CUTTER): Discussed the patient's BMI. The BMI is above average. BMI management plan is completed. BMI Follow-up includes: nutrition counseling, exercise counseling and education provided. BMI 50.0-59.9, adult 02/15/2022 023 Annual physical exam 06/21/2021 022 Assessment & Plan (06/21/2021 9:21 AM CDT): We reviewed cmp, continue medications the same at this time. Form completed for employer, copy will be scanned to chart. She will confirm with employer if needing tb skin test as it is marked out, and she thinks they will address. She will let us know if needing assistance. Body mass index 50.0-59.9, adult 12/15/2020 04/27/2022 Assessment & Plan (02/15/2022 10:08 AM BEDSPREAD CUTTER): Obesity is unchanged. Discussed the patient's BMI. The BMI is above average. BMI management plan is completed. BMI Follow-up includes: nutrition counseling, exercise counseling and education provided. Assessment & Plan (06/21/2021 9:21 AM CDT): Obesity is unchanged. Discussed the patient's BMI. The BMI is above average. BMI management plan is completed. BMI Follow-up includes: nutrition counseling, exercise counseling and education provided. Assessment & Plan (01/22/2021 2:30 PM BEDSPREAD CUTTER): Obesity is unchanged. Discussed the patient's BMI. The BMI is above average. BMI management plan is completed. BMI Follow-up includes: nutrition counseling, exercise counseling and education provided. Assessment & Plan (12/15/2020 10:31 AM CDT): Obesity is unchanged. Discussed the patient's BMI. The BMI is above average. BMI management plan is completed. BMI Follow-up includes: nutrition counseling, exercise counseling and education provided. Bug bite 09/08/2020 06/21/2021 Assessment & Plan (09/08/2020 12:52 PM CDT): Will start on mdp and bactrim, advised f/u in 1w if not improving Need for diphtheria-tetanus- pertussis (Tdap) vaccine 07/28/2020 09/30/2021 Assessment & Plan (07/28/2020 11:52 AM CDT): tdap today Morbid obesity with BMI of 50.0-59.9, adult 03/10/2020 03/20/2024 Assessment & Plan (02/13/2024 10:34 AM BEDSPREAD CUTTER): Discussed the patient's BMI. The BMI is above average. BMI management plan is completed. BMI Follow-up includes: nutrition counseling, exercise counseling and education provided. Assessment & Plan (01/10/2024 9:18 AM BEDSPREAD CUTTER): Discussed the patient's BMI. The BMI is above average. BMI management plan is completed. BMI Follow-up includes: nutrition counseling, exercise counseling and education provided. Assessment & Plan (10/18/2023 9:19 AM CDT): Discussed the patient's BMI. The BMI is above average. BMI management plan is completed. BMI Follow-up includes: nutrition counseling, exercise counseling and education provided. Assessment & Plan (08/03/2023 10:28 AM CDT): Discussed the patient's BMI. The BMI is above average. BMI management plan is completed. BMI Follow-up includes: nutrition counseling, exercise counseling and education provided. Assessment & Plan (03/02/2023 9:15 AM BEDSPREAD CUTTER): Discussed the patient's BMI. The BMI is above average. BMI management plan is completed. BMI Follow-up includes: nutrition counseling, exercise counseling and education provided. Assessment & Plan (11/16/2022 2:08 PM CDT): Discussed the patients BMI: The BMI is above average BMI management is complete. BMI follow-up includes: Nutrition Counseling and education provided Assessment & Plan (07/20/2020 5:06 PM CDT): Obesity is unchanged. Discussed the patient's BMI. The BMI is above average. BMI management plan is completed. BMI Follow-up includes: nutrition counseling, exercise counseling and education provided. Encounter to establish care 03/10/2020 01/22/2021 BMI 40.0-44.9, adult 10/21/2016 021 Immunizations Immunization Administration Dates Next Due Influenza, Unspecified 04/17/2024(Deferr ed: Patient Refused),03/20/2024(Deferred: Patient Refused),02/13/2024(Deferred: Patient Refused),03/06/2023(Deferred: Patient Refused),03/06/2023(Deferred: Patient Refused),03/06/2023(Deferred: Patient Refused),03/06/2023(Deferred: Patient Refused),03/06/2023(Deferred: Patient Refused),03/02/2023(Deferred: Patient Refused),11/16/2022(Deferred: Patient Refused),08/31/2022(Deferred: Patient Refused),07/11/2022(Deferred: Patient Refused),04/27/2022(Deferred: Patient Refused),03/06/2022(Deferred: Patient Refused),03/06/2022(Deferred: Patient Refused),04/06/2021(Deferred: Patient Refused),04/06/2021(Deferred: Patient Refused),04/06/2021(Deferred: Patient Refused) Pfizer SARS-CoV-2 Monovalent Vaccination (12+ Yrs) PURPLE 05/27/2020,05/27/2020,05/07/2020,2020 Tdap 07/28/2020 Social History Tobacco Use Types Packs/Day Years Used Date Smoking Tobacco: Former Cigarettes 0 07/14/2004 - 03/21/2015 Smokeless Tobacco: Never Tobacco Cessation:Counseling Given: Not Answered Alcohol Use Standard Drinks/Week Comments Not Currently 0 (1 standard drink = 0.6 oz pur e alcohol) [facility] Utilities Answer Date Recorded In the past 12 months has th e electric, gas, oil, or water company threatened to shut off services in your home? No 04/03/2024 Social Connection and Isolation Panel [NHANES] A nswer Date Recorded In a typical week, how many times do you talk on the phone with family, friends, or neighbors? Three times a week 04/03/2024 How often do you get togethe r with friends or relatives? Three times a week 04/03/2024 How often do you attend chur ch or cheondoism services? Never 04/03/2024 Do you belong to any clubs o r organizations such as baptist groups, unions, fraternal or athletic groups, or school groups? No 04/03/2024 How often do you attend meet ings of the clubs or organizations you belong to? Never 04/03/2024 Are you , , di vorced, , never , or living with a partner? 04/03/2024 AUDIT-C Answer Date Recorded Q1: How often do you have a drink containing alcohol? Never 04/03/2024 Q2: How many drinks containi ng alcohol do you have on a typical day when you are drinking? Patient does not drink Q3: How often do you have si x or more drinks on one occasion? Never 04/03/2024 Overall Financial Resource Strain (CARDIA) Answe r Date Recorded How hard is it for you to pa y for the very basics like food, housing, medical care, and heating? Not hard at all 04/03/2024 PHQ-2 Answer Date Recorded PHQ-2 Total Score (If total score is 3 or more points, staff should administer the PHQ-9) 1 04/17/2024 Hunger Vital Sign Answer Date Recorded Within the past 12 months, y ou worried that your food would run out before you got the money to buy more. Never true 04/03/19 25 Within the past 12 months, t he food you bought just didn't last and you didn't have money to get more. Never true 04/03/2024 PRAPARE - Transportation Answer Date Re corded In the past 12 months, has l ack of transportation kept you from medical appointments or from getting medications? No 03/07 In the past 12 months, has l ack of transportation kept you from meetings, work, or from getting things needed for daily living? No 04/03/2024 Housing Stability Vital Sign Answer Bryson e Recorded In the last 12 months, was t here a time when you were not able to pay the mortgage or rent on time? No 04/03/2024 In the past 12 months, how m any times have you moved where you were living? 0 04/03/2024 At any time in the past 12 m [facility], were you homeless or living in a detention (including now)? No 04/03/2024 Personal Safety Answer Date Recorded Have you ever been in or are you currently in a harmful physical or emotional relationship or is someone making you feel afraid or unsafe? Denies 04/03/2024 Comments No Sex and Gender Information Value Date Recorded Sex Assigned at Not on file Legal Sex Female 4:51 AM [facility]READ C[facility]TER Gender Identity Female 10/09/2020 9:44 AM CDT Sexual Orientation Straight 07/19/2020 12 :16 PM CDT Occupation Industry Job Start Date Job End Date [employer] Not on file Not on file Not on file Last Filed Vital Signs Vital Sign Reading Time Taken Comments Blood Pressure 136/80 04/29/2024 12:48 PM [facility] Pulse 80 04/29/2024 12:48 PM [facility] Temperature 36.8 C (98.2 F) 04/17/2024 8:59 AM [facility]SPREAD C[facility]TER Respiratory Rate 18 04/08/2024 3:16 PM [facility]READ C[facility] Oxygen Saturation 93% 04/29/2024 12:48 PM [facility] C[facility] Inhaled Oxygen Concentration - - Weight 152 kg (335 lb) 04/29/2024 12:48 PM [facility]READ C[facility] Height 160 cm (5' 3 ) 04/29/2024 12:48 PM [facility] C[facility] Body Mass Index 59.34 04/29/2024 12:48 PM [facility]READ C[facility]TER Plan of Treatment Not on file Medical Devices Implanted Type Area Bowling Pin Refinisher Device Identifier Shelf Expiration Date Model / Serial / Lot dough [facility] Aequalis Perform 25mm Lateralize Augment Reverse Shoulder [id number] - [id number] - [id number] Implanted:Qty: 1 on 02/23/2024 by Krysten Cohn MD at [facility] Right: Shoulder [employer] 01/28/2029 [id number] / [id number] / [employer] Aequalis Perform Reversed Od6.5 Mm L40 Mm Central Glenoid Screw Baseplate Nonsterile [id number] - [id number] Implanted:Qty: 1 on 02/23/2024 by Krysten Cohn MD at [facility] Right: Shoulder [employer] [id number] / / [employer] Screw Glenoid Locking Reverse Aequalis Perform 5x14mm Titanium [id number] - [id number] Implanted:Qty: 1 on 02/23/2024 by Krysten Cohn MD at [facility] Right: Shoulder [employer] [id number] / / [employer] Aequalis Perform Reversed 5mm 30mm Peripheral Glenoid Screw [id number] - [id number] Implanted:Qty: 2 on 02/23/2024 by Krysten Cohn MD at [facility] Right: Shoulder [employer] [id number] / / [employer] Component Glenosphere Reverse Lateralized Aequalis Perform +3x36mm [id number] - [id number] - [id number] Implanted:Qty: 1 on 02/23/2024 by Krysten Cohn MD at [facility] Right: Shoulder [employer] 11/02/2028 [id number] / [id number] / [employer] Stem Fracture Sz 11 L 130mm Humeral [id number] - [id number] - [id number] Implanted:Qty: 1 on 02/23/2024 by Krysten Cohn MD at [facility] Right: Shoulder [employer] 08/13/2028 [id number] / [id number] / [employer] Insert Perform Ret Ve [id number] - [id number] - [id number] Implanted:Qty: 1 on 02/23/2024 by Krysten Cohn MD at [facility] Right: Shoulder [employer] [id number] 03/30/2025 [id number] / [id number] / Procedures Procedure Name Priority Date/Time Associated Diagnosis Comments ELECTROCARDIOGRAM REPORT Routine 04/29/2024 3:06 PM [facility] Chronic combined systolic and diastolic congestive heart failure (CMS/HCC) (HCC) Prolonged QT interval POCT LIPID PANEL Routine 04/29/2024 12:42 PM [facility] Essential (primary) hypertension Chronic combined systolic and diastolic congestive heart failure (CMS/HCC) (HCC) MAGNESIUM Routine 04/08/2024 2:35 AM [facility]READ C[facility]TER EGFR Routine 04/08/2024 2:35 AM [facility]READ C[facility]TER BASIC METABOLIC PANEL Routine 04/08/2024 2:35 AM [facility]TER EGFR Routine 04/07/2024 2:59 AM [facility]TER BASIC METABOLIC PANEL Routine 04/07/2024 2:59 AM [facility]TER SODIUM LEVEL Routine 04/06/2024 11:34 AM [facility]READ [facility]TER EGFR Routine 04/06/2024 4:02 AM [facility]READ C[facility]TER DIFFERENTIAL AUTO Routine 04/06/2024 4:0 2 AM [facility]READ C[facility]TER CBC WITH AUTO DIFFERENTIAL Routine 04/06/2024 4:02 AM [facility] BASIC METABOLIC PANEL Routine 04/06/2024 4:02 AM [facility] C[facility] EGFR Routine 04/05/2024 4:59 AM [facility]READ [facility]TER DIFFERENTIAL AUTO Routine 04/05/2024 4:5 9 AM [facility]TER CBC WITH AUTO DIFFERENTIAL Routine 04/05/2024 4:59 AM [facility]TER BASIC METABOLIC PANEL Routine 04/05/2024 4:59 AM [facility]TER VANCOMYCIN LEVEL TROUGH Timed 04/04/19 11:04 AM [facility] C[facility]TER EGFR Routine 04/04/2024 2:48 AM [facility]READ [facility]TER DIFFERENTIAL AUTO Routine 04/04/2024 2:4 8 AM [facility]TER COMPREHENSIVE METABOLIC PANEL Routine 04/04/2024 2:48 AM [facility]READ C[facility]TER CBC WITH AUTO DIFFERENTIAL Routine 04/04/2024 2:48 AM [facility]READ C[facility]TER POCT GLUCOSE DEVICE Routine 04/03/2024 4 :41 PM [facility]SPREAD C[facility]TER US VEIN DUPLEX LOWER EXTREMITY BILATERAL COMPLETE ED 04/03/2024 10:00 AM [facility]READ C[facility]TER EGFR Routine 04/03/2024 7:19 AM [facility]READ C[facility]TER T4, FREE Routine 04/03/2024 7:19 AM [facility]READ C[facility]TER DIFFERENTIAL AUTO Routine 04/03/2024 7:1 9 AM [facility]READ C[facility]TER BASIC METABOLIC PANEL Routine 04/03/2024 7:19 AM [facility]READ C[facility]TER FOLATE Routine 04/03/2024 7:19 AM [facility]TER THYROID FUNCTION CASCADE Routine 04/03/2024 7:19 AM [facility]TER HEMOGLOBIN A1C Routine 04/03/2024 7:19 AM [facility] C[facility]TER IRON PROFILE W/ IBC Routine 04/03/2024 7 :19 AM [facility]TER FERRITIN Routine 04/03/2024 7:19 AM [facility]TER VITAMIN B12 Routine 04/03/2024 7:19 AM [facility]READ C[facility]TER CBC WITH AUTO DIFFERENTIAL Routine 04/03/2024 7:19 AM [facility]TER LIPID PANEL Routine 04/03/2024 7:19 AM [facility]READ C[facility]TER PRO B-TYPE NATRIURETIC PEPTIDE Routine 04/03/2024 7:19 AM [facility]READ C[facility]TER CRP (ACUTE PHASE) Routine 04/03/2024 7:19 AM [facility]READ C[facility]TER ERYTHROCYTE SEDIMENTATION RATE Routine 04/03/2024 7:19 AM [facility]READ C[facility]TER LACTATE Routine 04/03/2024 7:19 AM [facility]READ C[facility]TER PHOSPHORUS Routine 04/03/2024 7:19 AM [facility]TER MAGNESIUM Routine 04/03/2024 7:19 AM [facility]TER POCT GLUCOSE DEVICE Routine 04/03/2024 12:[address] ENTIRE LOWER EXTREMITY LEFT W WO CONTRAST ED 04/03/2024 12:08 AM [facility]READ C[facility]TER D-DIMER, QUANTITATIVE STAT 04/02/2024 9:57 PM [facility]READ C[facility]TER AEROBIC AND ANAEROBIC CULTURE AND GRAM STAIN STAT 04/02/2024 9:57 PM [facility]TER BLOOD CULTURE STAT 04/02/2024 9:57 PM [facility]READ [facility]TER BLOOD CULTURE STAT 04/02/2024 9:57 PM [facility] C[facility]TER INFLUENZA A/B, RSV, AND COVID-19 PCR STAT 04/02/2024 9:57 PM [facility]READ C[facility]TER XR CHEST 1 VIEW ED 04/02/2024 9:35 PM [facility] C[facility]TER XR KNEE LEFT 1 OR 2 VIEWS ED 04/02/2024 5:10 PM [facility] C[facility]TER XR TIBIA FIBULA LEFT 2 VIEWS ED 04/02/2024 5:10 PM [facility]READ C[facility]TER EGFR STAT 04/02/2024 4:07 PM [facility]READ C[facility]TER DIFFERENTIAL AUTO STAT 04/02/2024 4:0 7 PM [facility] C[facility]TER SEPSIS LACTATE WITH REFLEX Routine 04/02/2024 4:07 PM [facility]TER COMPREHENSIVE METABOLIC PANEL STAT 04/02/2024 4:07 PM [facility]READ C[facility]TER CBC WITH AUTO DIFFERENTIAL STAT 04/02/2024 4:07 PM [facility] C[facility]TER XR SHOULDER RIGHT 2 OR MORE VIEWS Schedule Routine, Read Routine (OP Routine) 04/01/2024 9:46 AM [facility]SPREAD C[facility]TER Status post reverse arthroplasty of right shoulder EGFR Routine 03/27/2024 2:09 PM [facility]READ C[facility]TER Prepatellar bursitis of left knee DIFFERENTIAL AUTO Routine 03/27/2024 2:0 9 PM [facility] C[facility]TER Prepatellar bursitis of left knee GLUCOSE, RANDOM (OUTREACH) Routine 03/27/2024 2:09 PM [facility]TER Prepatellar bursitis of left knee COMPREHENSIVE METABOLIC PANEL WITHOUT GLUCOSE (OUTREACH) Routine 03/27/2024 2:09 PM [facility]READ C[facility]TER Prepatellar bursitis of left knee ERYTHROCYTE SEDIMENTATION RATE Routine 03/27/2024 2:09 PM [facility]READ C[facility]TER Prepatellar bursitis of left knee COMPREHENSIVE METABOLIC PANEL (OUTREACH) Routine 03/27/2024 2:09 PM [facility]READ C[facility]TER Prepatellar bursitis of left knee CBC WITH AUTO DIFFERENTIAL Routine 03/27/2024 2:09 PM [facility]READ C[facility]TER Prepatellar bursitis of left knee CRP (ACUTE PHASE) Routine 03/27/2024 2:0 9 PM [facility]READ C[facility]TER Prepatellar bursitis of left knee POCT GLUCOSE DEVICE Routine 03/12/2024 7 :49 PM [facility]READ C[facility]TER POCT GLUCOSE DEVICE Routine 03/12/2024 4 :39 PM [facility]READ C[facility]TER POCT GLUCOSE DEVICE Routine 03/12/2024 11:41 AM [facility]READ C[facility]TER POCT GLUCOSE DEVICE Routine 03/12/2024 7 :48 AM [facility]READ C[facility]TER EGFR Routine 03/11/2024 9:56 PM [facility]READ C[facility]TER DIFFERENTIAL AUTO Routine 03/11/2024 9:5 6 PM [facility]READ [facility]TER PHOSPHORUS Routine 03/11/2024 9:56 PM [facility]TER COMPREHENSIVE METABOLIC PANEL Routine 03/11/2024 9:56 PM [facility]READ C[facility]TER MAGNESIUM Routine 03/11/2024 9:56 PM [facility]READ C[facility]TER CBC WITH AUTO DIFFERENTIAL Routine 03/11/2024 9:56 PM [facility]READ C[facility]TER POCT GLUCOSE DEVICE Routine 03/11/2024 7 :43 PM [facility]READ C[facility]TER POCT GLUCOSE DEVICE Routine 03/11/2024 5 :07 PM [facility]READ C[facility]TER POCT GLUCOSE DEVICE Routine 03/11/2024 11:52 AM [facility]READ C[facility]TER POCT GLUCOSE DEVICE Routine 03/11/2024 7 :40 AM [facility]READ C[facility]TER POCT GLUCOSE DEVICE Routine 03/10/2024 7 :47 PM [facility]READ C[facility]TER POCT GLUCOSE DEVICE Routine 03/10/2024 5 :07 PM [facility]READ C[facility]TER POCT GLUCOSE DEVICE Routine 03/10/2024 11:24 AM [facility]READ C[facility]TER POCT GLUCOSE DEVICE Routine 03/10/2024 7 :43 AM [facility]READ C[facility]TER EGFR Routine 03/09/2024 8:42 PM [facility]READ C[facility]TER DIFFERENTIAL AUTO Routine 03/09/2024 8:4 2 PM [facility]READ C[facility]TER PHOSPHORUS Routine 03/09/2024 8:42 PM [facility] C[facility]TER COMPREHENSIVE METABOLIC PANEL Routine 03/09/2024 8:42 PM [facility]READ C[facility]TER MAGNESIUM Routine 03/09/2024 8:42 PM [facility]READ C[facility]TER CBC WITH AUTO DIFFERENTIAL Routine 03/09/2024 8:42 PM [facility]READ C[facility]TER POCT GLUCOSE DEVICE Routine 03/09/2024 7 :31 PM [facility]READ C[facility]TER POCT GLUCOSE DEVICE Routine 03/09/2024 4 :39 PM [facility]READ C[facility]TER POCT GLUCOSE DEVICE Routine 03/09/2024 11:39 AM [facility]READ C[facility]TER POCT GLUCOSE DEVICE Routine 03/09/2024 8 :27 AM [facility] C[facility]TER EGFR Routine 03/08/2024 9:09 PM [facility]READ C[facility]TER PHOSPHORUS Routine 03/08/2024 9:09 PM [facility]TER COMPREHENSIVE METABOLIC PANEL Routine 03/08/2024 9:09 PM [facility]READ C[facility]TER MAGNESIUM Routine 03/08/2024 9:09 PM [facility]READ C[facility]TER POCT GLUCOSE DEVICE Routine 03/08/2024 7 :40 PM [facility]READ C[facility]TER POCT GLUCOSE DEVICE Routine 03/08/2024 5 :03 PM [facility]READ C[facility]TER POCT GLUCOSE DEVICE Routine 03/08/2024 11:12 AM [facility]READ C[facility]TER POCT GLUCOSE DEVICE Routine 03/08/2024 8 :18 AM [facility] C[facility] EGFR Routine 03/07/2024 10:22 PM [facility]READ C[facility]TER DIFFERENTIAL AUTO Routine 03/07/2024 10:22 PM [facility]READ C[facility]TER PHOSPHORUS Routine 03/07/2024 10:22 PM [facility]READ C[facility]TER COMPREHENSIVE METABOLIC PANEL Routine 03/07/2024 10:22 PM [facility]READ C[facility]TER MAGNESIUM Routine 03/07/2024 10:22 PM [facility]READ C[facility]TER CBC WITH AUTO DIFFERENTIAL Routine 03/07/2024 10:22 PM [facility]READ C[facility]TER POCT GLUCOSE DEVICE Routine 03/07/2024 7 :39 PM [facility]READ C[facility]TER POCT GLUCOSE DEVICE Routine 03/07/2024 5 :48 PM [facility]READ C[facility]TER POCT GLUCOSE DEVICE Routine 03/07/2024 11:28 AM [facility]READ C[facility]TER POCT GLUCOSE DEVICE Routine 03/07/2024 7 :44 AM [facility]READ C[facility]TER EGFR Routine 03/06/2024 10:05 PM [facility]READ [facility]TER DIFFERENTIAL AUTO Routine 03/06/2024 10:05 PM [facility] C[facility]TER PHOSPHORUS Routine 03/06/2024 10:05 PM [facility]TER COMPREHENSIVE METABOLIC PANEL Routine 03/06/2024 10:05 PM [facility]TER MAGNESIUM Routine 03/06/2024 10:05 PM [facility]READ [facility] CBC WITH AUTO DIFFERENTIAL Routine 03/06/2024 10:05 PM [facility] C[facility]TER POCT GLUCOSE DEVICE Routine 03/06/2024 7 :31 PM [facility]READ C[facility]TER POCT GLUCOSE DEVICE Routine 03/06/2024 5 :46 PM [facility]READ C[facility]TER POCT GLUCOSE DEVICE Routine 03/06/2024 11:42 AM [facility] C[facility]TER POCT GLUCOSE DEVICE Routine 03/06/2024 8 :47 AM [facility] C[facility]TER PROTIME-INR STAT 03/05/2024 10:53 PM [facility] POCT GLUCOSE DEVICE Routine 03/05/2024 8 :00 PM [facility] C[facility] EGFR Routine 03/05/2024 7:52 PM [facility]READ [facility]TER DIFFERENTIAL AUTO Routine 03/05/2024 7:5 2 PM [facility]TER PHOSPHORUS Routine 03/05/2024 7:52 PM [facility]TER COMPREHENSIVE METABOLIC PANEL Routine 03/05/2024 7:52 PM [facility]READ C[facility]TER MAGNESIUM Routine 03/05/2024 7:52 PM [facility]READ C[facility] CBC WITH AUTO DIFFERENTIAL Routine 03/05/2024 7:52 PM [facility] C[facility] POCT GLUCOSE DEVICE Routine 03/05/2024 5 :07 PM [facility]READ C[facility]TER POCT GLUCOSE DEVICE Routine 03/05/2024 11:39 AM [facility]READ C[facility]TER POCT GLUCOSE DEVICE Routine 03/05/2024 8 :03 AM [facility]READ C[facility]TER EGFR Routine 2024 10:39 PM [facility]READ C[facility]TER DIFFERENTIAL AUTO Routine 2024 10:39 PM [facility] C[facility]TER PHOSPHORUS Routine 2024 10:39 PM [facility]READ C[facility]TER COMPREHENSIVE METABOLIC PANEL Routine 2024 10:39 PM [facility]READ C[facility]TER PROTIME-INR Routine 2024 10:39 PM [facility]TER MAGNESIUM Routine 2024 10:39 PM [facility]READ C[facility]TER CBC WITH AUTO DIFFERENTIAL Routine 2024 10:39 PM [facility] C[facility]TER POCT GLUCOSE DEVICE Routine 2024 8 :09 PM [facility]TER POCT GLUCOSE DEVICE Routine 2024 4 :43 PM [facility] C[facility]TER POCT GLUCOSE DEVICE Routine 2024 12:06 PM [facility] POCT GLUCOSE DEVICE Routine 2024 8 :37 AM [facility]READ [facility]TER MANUAL DIFFERENTIAL Routine 03/03/2024 10:26 PM [facility] C[facility] EGFR Routine 03/03/2024 10:26 PM [facility]TER PHOSPHORUS Routine 03/03/2024 10:26 PM [facility]TER COMPREHENSIVE METABOLIC PANEL Routine 03/03/2024 10:26 PM [facility]READ C[facility]TER PROTIME-INR Routine 03/03/2024 10:26 PM [facility]READ C[facility]TER MAGNESIUM Routine 03/03/2024 10:26 PM [facility] C[facility]TER CBC WITH AUTO DIFFERENTIAL Routine 03/03/2024 10:26 PM [facility] C[facility]TER POCT GLUCOSE DEVICE Routine 03/03/2024 8 :17 PM [facility] C[facility]TER XR CHEST 1 VIEW IP Routine 03/03/2024 7:14 PM [facility] C[facility]TER POCT GLUCOSE DEVICE Routine 03/03/2024 5 :47 PM [facility]TER POCT GLUCOSE DEVICE Routine 03/03/2024 12:17 PM [facility] C[facility]TER POCT GLUCOSE DEVICE Routine 03/03/2024 8 :09 AM [facility]READ C[facility]TER POCT GLUCOSE DEVICE Routine 03/02/2024 11:51 PM [facility]TER CRITICAL CARE Routine 03/02/2024 9:58 PM [facility] Status post reverse arthroplasty of right shoulder [Z96.611] MARY (acute kidney injury) (HCC) Anxiety Acute pain of right shoulder WOUND CARE Routine 03/02/2024 9:07 PM [facility] C[facility]TER Edema of both legs Localized swelling of left lower extremity PROTIME-INR STAT 03/02/2024 8:45 PM [facility] C[facility]TER POCT GLUCOSE DEVICE Routine 03/02/2024 8 :01 PM [facility] C[facility]TER EGFR Routine 03/02/2024 7:12 PM [facility] C[facility]TER DIFFERENTIAL AUTO Routine 03/02/2024 7:1 2 PM [facility] C[facility]TER PHOSPHORUS Routine 03/02/2024 7:12 PM [facility]TER COMPREHENSIVE METABOLIC PANEL Routine 03/02/2024 7:12 PM [facility] C[facility]TER MAGNESIUM Routine 03/02/2024 7:12 PM [facility] C[facility]TER CBC WITH AUTO DIFFERENTIAL Routine 03/02/2024 7:12 PM [facility] C[facility]TER XR CHEST 1 VIEW Timed 03/02/2024 5:39 PM [facility]TER CRITICAL CARE Routine 03/02/2024 5:11 PM [facility] C[facility]TER Closed dislocation of right shoulder, sequela POCT GLUCOSE DEVICE Routine 03/02/2024 3 :14 PM [facility] C[facility]TER EGFR Timed 03/02/2024 2:19 PM [facility] C[facility]TER PHOSPHORUS Timed 03/02/2024 2:19 PM [facility] C[facility]TER MAGNESIUM Timed 03/02/2024 2:19 PM [facility] C[facility]TER BASIC METABOLIC PANEL Timed 03/02/2024 2:19 PM [facility]READ C[facility]TER POCT GLUCOSE DEVICE Routine 03/02/2024 11:11 AM [facility] C[facility]TER BLOOD GAS, VENOUS Routine 03/02/2024 8:1 4 AM [facility] C[facility]TER POCT GLUCOSE DEVICE Routine 03/02/2024 7 :19 AM [facility]READ C[facility]TER PRO B-TYPE NATRIURETIC PEPTIDE Timed 03/02/2024 5:12 AM [facility] C[facility]TER POCT GLUCOSE DEVICE Routine 03/02/2024 3 :09 AM [facility] C[facility]TER CRITICAL CARE Routine 03/01/2024 11:50 PM [facility] C[facility]TER Closed dislocation of right shoulder, sequela MARY (acute kidney injury) (HCC) Acute postoperative pain of right shoulder POCT GLUCOSE DEVICE Routine 03/01/2024 11:14 PM [facility] C[facility]TER EGFR Routine 03/01/2024 8:36 PM [facility] C[facility]TER PHOSPHORUS Routine 03/01/2024 8:36 PM [facility] C[facility]TER MAGNESIUM Routine 03/01/2024 8:36 PM [facility]TER DIFFERENTIAL AUTO Routine 03/01/2024 8:3 6 PM [facility]TER BLOOD GAS, VENOUS Timed 03/01/2024 8:3 6 PM [facility]TER COMPREHENSIVE METABOLIC PANEL Routine 03/01/2024 8:36 PM [facility]TER PROTIME-INR Routine 03/01/2024 8:36 PM [facility] C[facility]TER CBC WITH AUTO DIFFERENTIAL Routine 03/01/2024 8:36 PM [facility]TER XR CHEST 1 VIEW Timed 03/01/2024 7:53 PM [facility] C[facility]TER POCT GLUCOSE DEVICE Routine 03/01/2024 7 :11 PM [facility] C[facility]TER TROPONIN I HIGH-SENSITIVITY 6-HOUR Timed 03/01/2024 4:21 PM [facility]TER BLOOD GAS, VENOUS Timed 03/01/2024 4:2 1 PM [facility]TER POCT GLUCOSE DEVICE Routine 03/01/2024 3 :18 PM [facility] C[facility]TER TRANSTHORACIC ECHO (TTE) LIMITED/FOLLOW UP W LTD DOPPLER/CF W CONTRAST STAT 03/01/2024 3:04 PM [facility]TER TROPONIN I HIGH-SENSITIVITY 4-HOUR Timed 03/01/2024 2:26 PM [facility] C[facility]TER TROPONIN I HIGH-SENSITIVITY 2-HOUR Timed 03/01/2024 1:21 PM [facility] C[facility]TER US RUQ IP Routine 03/01/2024 1:10 PM [facility] CRITICAL CARE Routine 03/01/2024 12:57 PM [facility]TER Acute respiratory failure with hypoxia and hypercapnia (CMS/HCC) (HCC) POCT GLUCOSE DEVICE Routine 03/01/2024 11:17 AM [facility]TER CRITICAL RESULT CALLBACK CARDIO CHEM Routine 03/01/2024 10:29 AM [facility]TER TROPONIN I HIGH-SENSITIVITY SERIES (BASELINE, 2HR, 4HR, 6HR) Routine 03/01/2024 10:29 AM [facility]TER CREATINE KINASE (CK), TOTAL Routine 03/01/2024 10:26 AM [facility]TER GAMMA GT Routine 03/01/2024 10:23 AM [facility]TER LIPASE Routine 03/01/2024 10:23 AM [facility]TER HEPATITIS PANEL, ACUTE Routine 10:23 AM [facility]TER EGFR Timed 03/01/2024 7:41 AM [facility]TER BLOOD GAS, VENOUS Timed 03/01/2024 7:4 1 AM [facility]READ C[facility]TER PROTIME-INR Timed 03/01/2024 7:41 AM [facility]READ [facility]TER COMPREHENSIVE METABOLIC PANEL Timed 03/01/2024 7:41 AM [facility]TER POCT GLUCOSE DEVICE Routine 03/01/2024 7 :22 AM [facility]READ C[facility]TER MANUAL DIFFERENTIAL Routine 03/01/2024 6 :40 AM [facility] C[facility]TER CBC WITH AUTO DIFFERENTIAL Routine 03/01/2024 6:40 AM [facility] C[facility]TER POCT GLUCOSE DEVICE Routine 03/01/2024 3 :08 AM [facility]TER LACTATE STAT 03/01/2024 12:11 AM [facility]TER POCT GLUCOSE DEVICE Routine 02/29/2024 11:10 PM [facility]TER EGFR Timed 02/29/2024 10:33 PM [facility] C[facility]TER HEMOGLOBIN AND HEMATOCRIT Routine 02/29/2024 10:33 PM [facility]TER BLOOD GAS, VENOUS Timed 02/29/2024 10:33 PM [facility]READ C[facility]TER PROTIME-INR Timed 02/29/2024 10:33 PM [facility] C[facility]TER COMPREHENSIVE METABOLIC PANEL Timed 02/29/2024 10:33 PM [facility] CRITICAL CARE Routine 02/29/2024 8:54 PM [facility] C[facility]TER Closed dislocation of right shoulder, sequela POCT GLUCOSE DEVICE Routine 02/29/2024 7 :13 PM [facility]TER XR CHEST 1 VIEW Timed 02/29/2024 6:29 PM [facility] C[facility]TER LACTATE STAT 02/29/2024 6:01 PM [facility]TER BLOOD GAS, VENOUS STAT 02/29/2024 6:0 1 PM [facility]TER POC BLOOD GAS AND CHEMISTRIES, VENOUS Routine 02/29/2024 5:47 PM [facility] C[facility]TER POCT GLUCOSE DEVICE Routine 02/29/2024 3 :25 PM [facility] C[facility]TER BLOOD CULTURE Routine 02/29/2024 2:52 PM [facility]READ C[facility]TER BLOOD CULTURE Routine 02/29/2024 2:52 PM [facility] C[facility]TER BLOOD GAS, VENOUS Routine 02/29/2024 2:2 2 PM [facility] C[facility]TER POCT GLUCOSE DEVICE Routine 02/29/2024 11:11 AM [facility] C[facility]TER EGFR Timed 02/29/2024 10:58 AM [facility] C[facility]TER BLOOD GAS, VENOUS STAT 02/29/2024 10:58 AM [facility]READ C[facility]TER BASIC METABOLIC PANEL Timed 02/29/2024 10:58 AM [facility] C[facility]TER EGFR Timed 02/29/2024 8:19 AM [facility] C[facility]TER BLOOD GAS, VENOUS Timed 02/29/2024 8:1 9 AM [facility]READ C[facility]TER PROTIME-INR Timed 02/29/2024 8:19 AM [facility] C[facility]TER COMPREHENSIVE METABOLIC PANEL Timed 02/29/2024 8:19 AM [facility]TER CRITICAL CARE Routine 02/29/2024 7:40 AM [facility] C[facility]TER MARY (acute kidney injury) (HCC) Acute respiratory failure with hypoxia and hypercapnia (CMS/HCC) (HCC) POCT GLUCOSE DEVICE Routine 02/29/2024 7 :19 AM [facility] C[facility]TER POCT GLUCOSE DEVICE Routine 02/29/2024 3 :18 AM [facility] C[facility]TER CBC WITH AUTO DIFFERENTIAL Routine 02/28/2024 11:35 PM [facility] C[facility]TER DIFFERENTIAL AUTO Routine 02/28/2024 11:35 PM [facility] EGFR Timed 02/28/2024 11:35 PM [facility] C[facility]TER HEMOGLOBIN AND HEMATOCRIT Routine 02/28/2024 11:35 PM [facility] C[facility]TER BLOOD GAS, VENOUS Timed 02/28/2024 11:35 PM [facility]READ C[facility]TER PROTIME-INR Timed 02/28/2024 11:35 PM [facility] C[facility]TER COMPREHENSIVE METABOLIC PANEL Timed 02/28/2024 11:35 PM [facility] [facility] POCT GLUCOSE DEVICE Routine 02/28/2024 11:23 PM [facility] POCT GLUCOSE DEVICE Routine 02/28/2024 7 :25 PM [facility] CRITICAL CARE Routine 02/28/2024 6:37 PM [facility] Closed dislocation of right shoulder, sequela XR CHEST 1 VIEW Timed 02/28/2024 6:12 PM [facility] [facility] POCT GLUCOSE DEVICE Routine 02/28/2024 3 :23 PM [facility] POCT GLUCOSE DEVICE Routine 02/28/2024 11:12 AM [facility] EGFR Timed 02/28/2024 9:35 AM [facility] [facility] BLOOD GAS, VENOUS Timed 02/28/2024 9:3 5 AM [facility] [facility] PROTIME-INR Timed 02/28/2024 9:35 AM [facility] [facility] COMPREHENSIVE METABOLIC PANEL Timed 02/28/2024 9:35 AM [facility] CRITICAL CARE Routine 02/28/2024 7:43 AM [facility] [facility] Acute respiratory failure, unspecified whether with hypoxia or hypercapnia (HCC) Acute postoperative pain of right shoulder Acute respiratory failure with hypoxia and hypercapnia (CMS/HCC) (HCC) POCT GLUCOSE DEVICE Routine 02/28/2024 7 :32 AM [facility] HEMOGLOBIN AND HEMATOCRIT Routine 02/28/2024 4:27 AM [facility] POCT GLUCOSE DEVICE Routine 02/28/2024 3 :10 AM [facility] BLOOD GAS, VENOUS Timed 02/27/2024 11:23 PM [facility] POCT GLUCOSE DEVICE Routine 02/27/2024 11:20 PM [facility] CRITICAL CARE Routine 02/27/2024 7:55 PM [facility] Closed dislocation of right shoulder, sequela EGFR Timed 02/27/2024 7:51 PM [facility] [facility] PHOSPHORUS Timed 02/27/2024 7:51 PM [facility] [facility] PROTIME-INR Timed 02/27/2024 7:51 PM [facility] [facility] COMPREHENSIVE METABOLIC PANEL Timed 02/27/2024 7:51 PM [facility] POCT GLUCOSE DEVICE Routine 02/27/2024 7 :00 PM [facility] [facility] XR CHEST 1 VIEW Timed 02/27/2024 6:19 PM [facility] [facility] BLOOD GAS, VENOUS Routine 02/27/2024 5:5 7 PM [facility] [facility] BLOOD GAS, VENOUS Timed 02/27/2024 3:4 3 PM [facility] [facility] BLOOD CULTURE Routine 02/27/2024 12:52 PM [facility] [facility] BLOOD CULTURE Routine 02/27/2024 12:52 PM [facility] [facility] BLOOD GAS, VENOUS Routine 02/27/2024 12:19 PM [facility] POCT GLUCOSE DEVICE Routine 02/27/2024 11:13 AM [facility] DIFFERENTIAL AUTO STAT 02/27/2024 9:2 0 AM [facility] CBC WITH AUTO DIFFERENTIAL STAT 02/27/2024 9:20 AM [facility] EGFR Timed 02/27/2024 9:00 AM [facility] BLOOD GAS, VENOUS Timed 02/27/2024 9:0 0 AM [facility] [facility] PROTIME-INR Timed 02/27/2024 9:00 AM [facility] COMPREHENSIVE METABOLIC PANEL Timed 02/27/2024 9:00 AM [facility] CRITICAL CARE Routine 02/27/2024 8:54 AM [facility] [facility] MARY (acute kidney injury) (HCC) Acute respiratory failure, unspecified whether with hypoxia or hypercapnia (HCC) Acute postoperative pain of right shoulder POCT GLUCOSE DEVICE Routine 02/27/2024 7 :10 AM 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 HEMOGLOBIN AND HEMATOCRIT Routine 02/27/2024 5:42 AM B[facility]SPREAD CUTTER POCT GLUCOSE DEVICE Routine 02/27/2024 3 :09 AM B[facility]SPREAD CUTTER POCT GLUCOSE DEVICE Routine 02/26/2024 11:33 PM BEDSPREAD CUTTER BLOOD GAS, VENOUS Timed 02/26/2024 11:05 PM BEDSPREAD CUTTER POCT GLUCOSE DEVICE Routine 02/26/2024 9 :35 PM BEDSPREAD CUTTER AEROBIC AND ANAEROBIC CULTURE AND GRAM STAIN Routine 02/26/2024 9:35 PM BEDSPREAD CUTTER CRITICAL CARE Routine 02/26/2024 9:25 PM BEDSPREAD CUTTER Closed dislocation of right shoulder, sequela COMPREHENSIVE METABOLIC PANEL Routine 02/26/2024 7:22 PM BEDSPREAD CUTTER EGFR Routine 02/26/2024 7:22 PM B[facility]SPREAD CUTTER DIFFERENTIAL AUTO Routine 02/26/2024 7:2 2 PM [facility]SPREAD CUTTER BLOOD GAS, VENOUS Timed 02/26/2024 7:2 2 PM [facility]SPREAD CUTTER PHOSPHORUS Routine 02/26/2024 7:22 PM BEDSPREAD CUTTER MAGNESIUM Routine 02/26/2024 7:22 PM BEDSPREAD CUTTER CBC WITH AUTO DIFFERENTIAL Routine 02/26/2024 7:22 PM BEDSPREAD CUTTER PROTIME-INR Timed 02/26/2024 7:22 PM BEDSPREAD CUTTER XR CHEST 1 VIEW IP Routine 02/26/2024 6:26 PM [facility]SPREAD CUTTER BLOOD GAS, VENOUS Timed 02/26/2024 5:1 [address] CHEST PE W CONTRAST IP Routine 4:[address] ENTIRE LOWER EXTREMITY LEFT W CONTRAST ED Urgent/IP Urgent 02/26/2024 4:33 PM BEDSPREAD CUTTER POCT GLUCOSE DEVICE Routine 02/26/2024 3 :34 PM [facility]SPREAD CUTTER US VEIN DUPLEX LOWER EXTREMITY BILATERAL COMPLETE ED Urgent/IP Urgent 02/26/2024 12:41 PM BEDSPREAD CUTTER XR CHEST 1 VIEW Critical/Life- Threatening 02/26/2024 12:35 PM [facility]SPREAD CUTTER BLOOD CULTURE Routine 02/26/2024 12:35 PM B[facility]SPREAD CUTTER OXYHEMOGLOBIN, CENTRAL VENOUS STAT 02/26/2024 12:24 PM BEDSPREAD CUTTER BLOOD GAS, VENOUS Timed 02/26/2024 12:18 PM BEDSPREAD CUTTER ERYTHROCYTE SEDIMENTATION RATE Routine 02/26/2024 12:18 PM BEDSPREAD CUTTER CRP (ACUTE PHASE) Routine 02/26/2024 12:18 PM BEDSPREAD CUTTER POCT GLUCOSE DEVICE Routine 02/26/2024 11:45 AM BEDSPREAD CUTTER [place] ARTL CATHJ/CANNULJ MNTR/TRANSFUSION SPX PRQ Routine 02/26/2024 11:24 AM BEDSPREAD CUTTER Acute respiratory failure, unspecified whether with hypoxia or hypercapnia (HCC) BLOOD CULTURE Routine 02/26/2024 11:13 AM BEDSPREAD CUTTER TRANSTHORACIC ECHO (TTE) COMPLETE W DOPPLER/CF W CONTRAST STAT 02/26/2024 10:03 AM BEDSPREAD CUTTER NY INSJ NON-TUNNELED CENTRAL VENOUS CATH AGE 5 YR/> Routine 02/26/2024 10:00 AM [facility]SPREAD CUTTER Acute respiratory failure with hypoxia and hypercapnia (CMS/HCC) (HCC) POC BLOOD GAS AND CHEMISTRIES, VENOUS Routine 02/26/2024 9:56 AM BEDSPREAD CUTTER EGFR STAT 02/26/2024 9:50 AM [facility]SPREAD CUTTER DIFFERENTIAL AUTO STAT 02/26/2024 9:5 0 AM [facility]SPREAD CUTTER BLOOD GAS, VENOUS STAT 02/26/2024 9:5 0 AM [facility]READ CUTTER LACTATE STAT 02/26/2024 9:50 AM [facility]SPREAD CUTTER COMPREHENSIVE METABOLIC PANEL STAT 02/26/2024 9:50 AM BEDSPREAD CUTTER CBC WITH AUTO DIFFERENTIAL STAT 02/26/2024 9:50 AM B[facility]SPREAD CUTTER XR CHEST 1 VIEW ED Urgent/IP Urgent 02/26/2024 9:09 AM B[facility]SPREAD CUTTER EGFR Timed 02/26/2024 7:52 AM [facility]SPREAD CUTTER BLOOD GAS, VENOUS Routine 02/26/2024 7:5 2 AM B[facility]SPREAD CUTTER PROTIME-INR Timed 02/26/2024 7:52 AM B[facility]SPREAD CUTTER COMPREHENSIVE METABOLIC PANEL Timed 02/26/2024 7:52 AM B[facility]SPREAD CUTTER INFECTION PREVENTION MRSA ONLY (STAPHYLOCOCCUS AUREUS) CULTURE Routine 02/26/2024 7:52 AM [facility]SPREAD CUTTER POCT GLUCOSE DEVICE Routine 02/26/2024 7 :14 AM [facility]READ C[facility]TER CRITICAL CARE Routine 02/26/2024 7:12 AM [facility]SPREAD CUTTER Acute respiratory failure with hypoxia (CMS/HCC) (HCC) MARY (acute kidney injury) (HCC) BLOOD GAS, VENOUS STAT 02/26/2024 3:2 9 AM [facility]READ C[facility]TER HEMOGLOBIN AND HEMATOCRIT Routine 02/26/2024 3:29 AM [facility]READ C[facility]TER XR KNEE LEFT 1 OR 2 VIEWS IP Routine 02/26/2024 3:14 AM B[facility]SPREAD CUTTER NY INSJ NON-TUNNELED CENTRAL VENOUS CATH AGE 5 YR/> Routine 02/26/2024 12:23 AM [facility]READ CUTTER Renal insufficiency [place] ARTL CATHJ/CANNULJ MNTR/TRANSFUSION SPX PRQ Routine 02/26/2024 12:21 AM [facility]READ C[facility]TER Renal insufficiency URINALYSIS, MICROSCOPIC ONLY Routine 02/25/2024 10:54 PM [facility]SPREAD CUTTER BLOOD GAS, VENOUS Timed 02/25/2024 10:54 PM [facility]SPREAD CUTTER URINE CULTURE Routine 02/25/2024 10:54 PM [facility]READ CUTTER URINALYSIS AND REFLEX TO MICROSCOPIC AND CULTURE Routine 02/25/2024 10:54 PM [facility]READ C[facility]TER CRITICAL CARE Routine 02/25/2024 7:45 PM [facility]READ CUTTER Closed dislocation of right shoulder, sequela COMPREHENSIVE METABOLIC PANEL Routine 02/25/2024 7:37 PM [facility]READ CUTTER EGFR Routine 02/25/2024 7:37 PM [facility]SPREAD CUTTER PROTIME-INR Timed 02/25/2024 7:37 PM [facility]READ CUTTER TROPONIN I HIGH-SENSITIVITY 6-HOUR Timed 02/25/2024 7:37 PM [facility] C[facility]TER PHOSPHORUS Routine 02/25/2024 7:37 PM [facility]READ C[facility]TER MAGNESIUM Routine 02/25/2024 7:37 PM [facility]READ C[facility]TER CALCIUM, IONIZED Routine 02/25/2024 7:37 PM [facility]READ CUTTER CBC WITHOUT DIFFERENTIAL Routine 02/25/2024 7:37 PM [facility]READ C[facility]TER POC BLOOD GAS AND CHEMISTRIES, VENOUS Routine 02/25/2024 7:17 PM B[facility]SPREAD CUTTER POCT GLUCOSE DEVICE Routine 02/25/2024 5:28 PM [facility]READ CUTTER [place] INSJ NON-TUNNELED CENTRAL VENOUS CATH AGE 5 YR/> Routine 02/25/2024 5:21 PM [facility]READ C[facility]TER Renal insufficiency TROPONIN I HIGH-SENSITIVITY 2-HOUR Timed 02/25/2024 4:43 PM [facility]READ C[facility]TER ECG 12-LEAD STAT 02/25/2024 4:04 PM [facility]READ CUTTER POCT GLUCOSE DEVICE Routine 02/25/2024 3 :07 PM [facility] C[facility]TER CRITICAL CARE Routine 02/25/2024 3:02 PM [facility]READ C[facility]TER Acute hypoxemic respiratory failure (HCC) TROPONIN I HIGH-SENSITIVITY SERIES (BASELINE, 2HR, 4HR, 6HR) STAT 02/25/2024 2:55 PM [facility]READ CUTTER RESPIRATORY PATHOGEN PANEL Routine 02/25/2024 2:55 PM [facility]READ CUTTER [place] ARTL CATHJ/CANNULJ MNTR/TRANSFUSION SPX PRQ Routine 02/25/2024 12:00 PM [facility]SPREAD CUTTER Acute respiratory failure with hypoxia (CMS/HCC) (HCC) POCT GLUCOSE DEVICE Routine 02/25/2024 11:06 AM [facility]READ C[facility]TER LIPID PANEL STAT 02/25/2024 11:05 AM B[facility]SPREAD C[facility]TER EGFR STAT 02/25/2024 11:05 AM [facility]READ C[facility]TER T4, FREE STAT 02/25/2024 11:05 AM B[facility]SPREAD C[facility]TER APTT STAT 02/25/2024 11:05 AM [facility]READ C[facility]TER LACTATE STAT 02/25/2024 11:05 AM [facility]READ C[facility]TER MAGNESIUM STAT 02/25/2024 11:05 AM [facility]READ C[facility]TER PHOSPHORUS STAT 02/25/2024 11:05 AM [facility]READ C[facility]TER PRO B-TYPE NATRIURETIC PEPTIDE STAT 02/25/2024 11:05 AM [facility]READ C[facility]TER PROTIME-INR STAT 02/25/2024 11:05 AM [facility]READ C[facility]TER THYROID FUNCTION CASCADE STAT 02/25/2024 11:05 AM [facility]READ C[facility]TER COMPREHENSIVE METABOLIC PANEL STAT 02/25/2024 11:05 AM [facility]READ C[facility]TER CBC WITHOUT DIFFERENTIAL STAT 02/25/2024 11:05 AM [facility]READ C[facility]TER CALCIUM, IONIZED STAT 02/25/2024 11:05 AM [facility]READ C[facility]TER BLOOD GAS, ARTERIAL STAT 02/25/2024 11:05 AM [facility]READ C[facility]TER BETA-HYDROXYBUTYRATE STAT 02/25/2024 11:05 AM [facility]READ C[facility]TER BLOOD CULTURE STAT 02/25/2024 11:05 AM [facility]READ C[facility]TER BLOOD CULTURE STAT 02/25/2024 11:05 AM [facility]SPREAD CUTTER POCT GLUCOSE DEVICE Routine 02/25/2024 8 :23 AM [facility]READ CUTTER ARTERIAL BLOOD GAS W/LACTATE Routine 02/25/2024 7:54 AM [facility]READ C[facility]TER XR CHEST 1 VIEW ED Urgent/IP Urgent 02/25/2024 7:34 AM [facility]READ C[facility]TER EGFR Routine 02/25/2024 4:49 AM [facility]READ C[facility]TER HEMOGLOBIN AND HEMATOCRIT Routine 02/25/2024 4:49 AM [facility]SPREAD CUTTER BASIC METABOLIC PANEL Routine 02/25/2024 4:49 AM B[facility]SPREAD CUTTER EGFR STAT 02/24/2024 9:26 PM [facility]READ C[facility]TER HEMOGLOBIN AND HEMATOCRIT STAT 02/24/2024 9:26 PM B[facility]SPREAD CUTTER BASIC METABOLIC PANEL STAT 02/24/2024 9:26 PM B[facility]SPREAD CUTTER POCT GLUCOSE DEVICE Routine 02/24/2024 9 :17 PM B[facility]SPREAD CUTTER POCT GLUCOSE DEVICE Routine 02/24/2024 5 :15 PM [facility]READ C[facility]TER POCT GLUCOSE DEVICE Routine 02/24/2024 12:22 PM B[facility]READ CUTTER POCT GLUCOSE DEVICE Routine 02/24/2024 9 :55 AM B[facility]READ C[facility]TER EGFR Timed 02/23/2024 11:18 PM B[facility]SPREAD CUTTER BASIC METABOLIC PANEL Timed 02/23/2024 11:18 PM B[facility]READ C[facility]TER HEMOGLOBIN AND HEMATOCRIT Timed 02/23/2024 11:18 PM B[facility]SPREAD CUTTER POCT GLUCOSE DEVICE Routine 02/23/2024 9 :15 PM [facility]SPREAD C[facility]TER XR SHOULDER RIGHT 2 OR MORE VIEWS IP Routine 02/23/2024 6:49 PM B[facility]SPREAD CUTTER [place] AN PROCEDURE PLACEHOLDER Routine 02/23/2024 5:45 PM B[facility]SPREAD CUTTER [place] AN PROCEDURE PLACEHOLDER Routine 02/23/2024 3:57 PM B[facility]SPREAD CUTTER NY AN PROCEDURE PLACEHOLDER Routine 02/23/2024 3:37 PM B[facility]SPREAD CUTTER NY AN ELECTIVE ENDOTRACHEAL AIRWAY Routine 02/23/2024 3:37 PM BEDSPREAD CUTTER [place] AN PROCEDURE PLACEHOLDER Routine 02/23/2024 2:49 PM BEDSPREAD CUTTER [place] AN PROCEDURE PLACEHOLDER Routine 02/23/2024 2:45 PM B[facility]SPREAD CUTTER BW IP ANE LDA PERIPHERAL NERVE CATHETER Routine 02/23/2024 2:45 PM B[facility]SPREAD CUTTER ARTHROPLASTY SHOULDER - REVERSE TOTAL 02/23/2024 2:44 PM [facility]SPREAD CUTTER Closed dislocation of right shoulder, initial encounter Fracture of humeral head, closed, right, with routine healing, subsequent encounter Special Needs Beach Chair with Trimano (patient is >350lbs), Tornier Perform with Fracture Stem Back-up, Ice Machine, Breg Sling Shot with Pillow B CHECK SAMPLE STAT 02/23/2024 12:52 PM BEDSPREAD CUTTER EGFR Routine 02/15/2024 9:06 AM B[facility]READ CUTTER Closed dislocation of right shoulder, initial encounter Fracture of humeral head, closed, right, with routine healing, subsequent encounter TYPE AND SCREEN 14 DAY Routine 9:06 AM [facility]SPREAD CUTTER Preoperative testing VITAMIN D 25 HYDROXY Routine 02/15/2024 9:06 AM [facility]READ CUTTER Closed dislocation of right shoulder, initial encounter Fracture of humeral head, closed, right, with routine healing, subsequent encounter COMPREHENSIVE METABOLIC PANEL Routine 02/15/2024 9:06 AM B[facility]READ CUTTER Closed dislocation of right shoulder, initial encounter Fracture of humeral head, closed, right, with routine healing, subsequent encounter CBC WITHOUT DIFFERENTIAL Routine 02/15/2024 9:06 AM B[facility]SPREAD CUTTER Preoperative testing ECG 12-LEAD Routine 02/15/2024 8:38 AM B[facility]SPREAD CUTTER Preoperative testing MRI SHOULDER RIGHT WO CONTRAST Schedule Routine, Read Routine (OP Routine) 01/31/2024 10:42 AM B[facility]SPREAD CUTTER Anterior dislocation of right humerus, initial encounter Right shoulder pain, unspecified chronicity RADIOLOGY EVENT Schedule Routine, Read Routine (OP Routine) 01/31/2024 9:11 AM B[facility]SPREAD CUTTER Anterior dislocation of right humerus, initial encounter Right shoulder pain, unspecified chronicity CT SHOULDER RIGHT WO CONTRAST AND 3D RECONS Schedule Routine, Read Routine (OP Routine) 01/31/2024 9:11 AM BEDSPREAD CUTTER Anterior dislocation of right humerus, initial encounter Right shoulder pain, unspecified chronicity HM MAMMOGRAPHY Routine 01/16/2021 from Last 3 Months or Most Recently Relevant to Health Maintenance Results * Electrocardiogram Report (04/29/2024 3:06 PM BEDSPREAD CUTTER) us Karie Rodríguez MD ECG ORDERABLES Nicole l Result * POCT lipid panel (04/29/2024 12:42 PM BEDSPREAD CUTTER) HDL, POC 60 mg/dL Triglycerides, POC 452 mg/dL LDL Cholesterol POC 60 mg/dL Chol/HDL Ratio, POC 52.6 Non-HDL Cholesterol, POC 143 mg/dL Cholesterol Total, POC 203 mg/dL Capillary blood 04/29/2024 1 2:42 PM BEDSPREAD CUTTER us Karie Rodríguez MD POINT OF CARE TEST O RDERABLES Final Result * eGFR (04/08/2024 2:35 AM BEDSPREAD CUTTER) eGFR >90 >=60 mL/min/1. 73 m2 Comment: Interpretive Data Reference Interval Normal >/= 90 mL/min/1.73m2 Mildly decreased* 60 - 89 mL/min/1.73m2 Mildly to moderately decreased 45 - 59 mL/min/1.73m2 Moderately to severely decreased 30 - 44 mL/min/1.73m2 Severely decreased 15 - 29 mL/min/1.73m2 Kidney Failure < 15 mL/min/1.73m2 *Relative to young adult level Estimated glomerular filtration rate is determined by the 2020 CKD-EPI equation recommended by the National Kidney Foundation (A Unifying Approach to GFR Estimation: Recommendations of the NKF-ASK Task Force on Reassessing the Inclusion of Race in Diagnosing Kidney Disease, JASN 202). The CKD-EPI equation should not be used for patients with unstable renal function and has not been validated in children and those over 70. Current interpretive data was last reviewed 2021. Blood 04/08/2024 2:35 AM BEDSPREAD CUTTER 04/08/2024 3:03 AM B[facility]SPREAD CUTTER Florentino Jeronimo PHARMACY INFORMATICS SPECIALIST LAB BLOOD ORDERABLES Fin al Result Performing Organization Address [facility]/ZIP Co de Phone Number [address] [place] [address] * Magnesium (04/08/2024 2:35 AM BEDSPREAD CUTTER) [facility] Magnesium 1.6 1.4 - 2.5 mg/dL Blood 04/08/2024 2:35 AM BEDSPREAD CUTTER 04/08/2024 3:03 AM BEDSPREAD CUTTER Chaitanya Robertson MD LAB BLOOD ORDERABLES Final Result Performing Organization Address [facility] Co de Phone Number [address] [address] * (ABNORMAL) Basic metabolic panel (04/08/2024 2:35 AM BEDSPREAD CUTTER) Pathologist [facility] Sodium 137 135 - 145 mmol/L Potassium, pl 4.1 3.3 - 4.9 mmol/L [facility] Chloride 100 97 - 110 mmol/L [facility] CO2 30 22 - 32 mmol/L [facility] Anion gap 7 2 - 15 mmol/L [facility] BUN 11 6 - 25 mg/dL [facility] Creatinine 0.58(L) 0.60 - 1.10 mg/dL [facility] Glucose 83 70 - 199 mg/dL [facility] Comment: Interpretive Data Fasting glucose >/= 126 mg/dl is diagnostic for diabetes. Fasting is defined as no caloric intake for at least 8 hours. Fasting glucose between 100 mg/dl to 125 mg/dl is diagnostic of prediabetes. In a patient with classic symptoms of hyperglycemia or hyperglycemic crisis, a random glucose >/= 200 mg/dl is diagnostic for diabetes. In the absence of unequivocal hyperglycemia, results should be confirmed by repeat testing. The classification and Diagnosis of Diabetes Diabetes Care 2021; 46: S19-S40. Current interpretive data was last revised 2022. Calcium 8.6 8.5 - 10.3 mg/dL [facility] Blood 04/08/2024 2:35 AM BEDSPREAD CUTTER 04/08/2024 3:03 AM BEDSPREAD CUTTER us Florentino Tabernero Rufin PHARMACY INFORMATICS SPECIALIST LAB BLOOD ORDERABLES Fin al Result [facility] [address] [facility] [place] [address] * eGFR (04/07/2024 2:59 AM BEDSPREAD CUTTER) eGFR >90 >=60 mL/min/1. 73 m2 Comment: Interpretive Data Reference Interval Normal >/= 90 mL/min/1.73m2 Mildly decreased* 60 - 89 mL/min/1.73m2 Mildly to moderately decreased 45 - 59 mL/min/1.73m2 Moderately to severely decreased 30 - 44 mL/min/1.73m2 Severely decreased 15 - 29 mL/min/1.73m2 Kidney Failure < 15 mL/min/1.73m2 *Relative to young adult level Estimated glomerular filtration rate is determined by the 2020 CKD-EPI equation recommended by the National Kidney Foundation (A Unifying Approach to GFR Estimation: Recommendations of the NKF-ASK Task Force on Reassessing the Inclusion of Race in Diagnosing Kidney Disease, JASN 2020). The CKD-EPI equation should not be used for patients with unstable renal function and has not been validated in children and those over 70. Current interpretive data was last reviewed 2021. Blood 04/07/2024 2:59 AM BEDSPREAD CUTTER 04/07/2024 3:37 AM BEDSPREAD CUTTER us Florentino Tabernero Rufin PHARMACY INFORMATICS SPECIALIST LAB BLOOD ORDERABLES Fin al Result [place] [address] [facility] Department [place] [address] * (ABNORMAL) Basic metabolic panel (04/07/2024 2:59 AM BEDSPREAD CUTTER) Sodium 137 135 - 145 mmol/L Potassium, pl 3.6 3.3 - 4.9 mmol/L [facility] Chloride 102 97 - 110 mmol/L [facility] CO2 28 22 - 32 mmol/L [facility] Anion gap 7 2 - 15 mmol/L [facility] BUN 10 6 - 25 mg/dL [facility] Creatinine 0.56(L) 0.60 - 1.10 mg/dL [facility] Glucose 93 70 - 199 mg/dL [facility] Comment: Interpretive Data Fasting glucose >/= 126 mg/dl is diagnostic for diabetes. Fasting is defined as no caloric intake for at least 8 hours. Fasting glucose between 100 mg/dl to 125 mg/dl is diagnostic of prediabetes. In a patient with classic symptoms of hyperglycemia or hyperglycemic crisis, a random glucose >/= 200 mg/dl is diagnostic for diabetes. In the absence of unequivocal hyperglycemia, results should be confirmed by repeat testing. The classification and Diagnosis of Diabetes Diabetes Care 202; 46: S19-S40. Current interpretive data was last revised 2022. Calcium 8.5 8.5 - 10.3 mg/dL [facility] Blood 04/07/2024 2:59 AM BEDSPREAD CUTTER 04/07/2024 3:37 AM BEDSPREAD CUTTER Florentino Meena Jeronimo LAB BLOOD ORDERABLES Fin al Result [place] [address] [facility] [place] [address] * Sodium level (04/06/2024 11:34 AM BEDSPREAD CUTTER) Sodium 138 135 - 145 mmol/L Blood 04/06/2024 11:3 4 AM BEDSPREAD CUTTER 04/06/2024 11:53 AM BEDSPREAD CUTTER Yadira Cancino MD LAB BLOOD ORDERABLES Nicole l Result [place] [address] [address] * eGFR (04/06/2024 4:02 AM BEDSPREAD CUTTER) eGFR >90 >=60 mL/min/1. 73 m2 Comment: Interpretive Data Reference Interval Normal >/= 90 mL/min/1.73m2 Mildly decreased* 60 - 89 mL/min/1.73m2 Mildly to moderately decreased 45 - 59 mL/min/1.73m2 Moderately to severely decreased 30 - 44 mL/min/1.73m2 Severely decreased 15 - 29 mL/min/1.73m2 Kidney Failure < 15 mL/min/1.73m2 *Relative to young adult level Estimated glomerular filtration rate is determined by the 2020 CKD-EPI equation recommended by the National Kidney Foundation (A Unifying Approach to GFR Estimation: Recommendations of the NKF-ASK Task Force on Reassessing the Inclusion of Race in Diagnosing Kidney Disease, JASN 2020). The CKD-EPI equation should not be used for patients with unstable renal function and has not been validated in children and those over 70. Current interpretive data was last reviewed 2021. Blood 04/06/2024 4:02 AM BEDSPREAD CUTTER 04/06/2024 4:15 AM BEDSPREAD CUTTER Florentino Jeronimo NP LAB BLOOD ORDERABLES Fin al Result Performing Organization Address City/[facility]/ZIP Co de Phone Number [place] [address] [place] [address] * Differential, auto (04/06/2024 4:02 AM BEDSPREAD CUTTER) Neutrophil abs 2.8 1.5 - 6.5 K/cumm Imm gran abs 0.0 0.0 - 0.1 K/cumm [facility] Lymphocyte abs 1.8 0.8 - 3.3 K/cumm [facility] Monocyte abs 0.6 0.2 - 0.8 K/cumm [facility] Eosinophil abs 0.1 0.0 - 0.5 K/cumm [facility] Basophil abs 0.0 0.0 - 0.1 K/cumm [facility] Neutrophil pct 52.1 % [facility] Comment: Interpretive Data Percent cell count reference ranges are not reported, since discordance with absolute values may lead to misinterpretation of CBC data. Current Interpretive Data was last revised on 2017. Imm gran pct 0.6 % [facility] Comment: Interpretive Data Percent cell count reference ranges are not reported, since discordance with absolute values may lead to misinterpretation of CBC data. Current Interpretive Data was last revised on 2017. Lymphocyte pct 34.7 % [facility] Comment: Interpretive Data Percent cell count reference ranges are not reported, since discordance with absolute values may lead to misinterpretation of CBC data. Current Interpretive Data was last revised on 2017. Monocyte pct 10.9 % [facility] Comment: Interpretive Data Percent cell count reference ranges are not reported, since discordance with absolute values may lead to misinterpretation of CBC data. Current Interpretive Data was last revised on 2017. Eosinophil pct 1.1 % [facility] Comment: Interpretive Data Percent cell count reference ranges are not reported, since discordance with absolute values may lead to misinterpretation of CBC data. Current Interpretive Data was last revised on 2017. Basophil pct 0.6 % [facility] Comment: Interpretive Data Percent cell count reference ranges are not reported, since discordance with absolute values may lead to misinterpretation of CBC data. Current Interpretive Data was last revised on 2017. Blood 04/06/2024 4:02 AM BEDSPREAD CUTTER 04/06/2024 4:15 AM BEDSPREAD CUTTER us Savage Rutherford MD LAB BLOOD ORDERABLES Final R esult [facility] EDUARDO [address] [facility] [place] [address] * (ABNORMAL) CBC with auto differential (04/06/2024 4:02 AM BEDSPREAD CUTTER) WBC 5.3 3.8 - 9.9 K/cumm Hgb 8.2(L) 11.9 - 15.5 g/dL [facility] Hct 26.6(L) 35.6 - 45.5 % [facility] Plt 283 150 - 400 K/cumm [facility] MPV 9.1 9.1 - 12.3 fL [facility] RBC 2.55(L) 3.90 - 5.20 M/cumm [facility] MCV 104.3(H) 81.3 - 96.4 fL [facility] MCH 32.2 27.1 - 33.3 pg [facility] MCHC 30.8(L) 32.3 - 35.7 g/dL [facility] RDW CV 15.0(H) 11.1 - 14.9 % [facility] RDW SD 57.8(H) 35.7 - 48.1 fL [facility] NRBC abs 0.00 0.00 - 0.01 K/cumm [facility] Blood 04/06/2024 4:02 AM BEDSPREAD CUTTER 04/06/2024 4:15 AM BEDSPREAD CUTTER us Savage Rutherford MD LAB BLOOD ORDERABLES Final R esult [facility] [address] [facility] Department [place] [address] * (ABNORMAL) Basic metabolic panel (04/06/2024 4:02 AM BEDSPREAD CUTTER) Sodium 132(L) 135 - 145 mmol/L Potassium, pl 3.5 3.3 - 4.9 mmol/L [facility] Chloride 99 97 - 110 mmol/L [facility] CO2 26 22 - 32 mmol/L [facility] Anion gap 7 2 - 15 mmol/L [facility] BUN 9 6 - 25 mg/dL [facility] Creatinine 0.54(L) 0.60 - 1.10 mg/dL [facility] Glucose 100 70 - 199 mg/dL [facility] Comment: Interpretive Data Fasting glucose >/= 126 mg/dl is diagnostic for diabetes. Fasting is defined as no caloric intake for at least 8 hours. Fasting glucose between 100 mg/dl to 125 mg/dl is diagnostic of prediabetes. In a patient with classic symptoms of hyperglycemia or hyperglycemic crisis, a random glucose >/= 200 mg/dl is diagnostic for diabetes. In the absence of unequivocal hyperglycemia, results should be confirmed by repeat testing. The classification and Diagnosis of Diabetes Diabetes Care 2021; 46: S19-S40. Current interpretive data was last revised 2022. Calcium 8.2(L) 8.5 - 10.3 mg/dL [facility] Blood 04/06/2024 4:02 AM BEDSPREAD CUTTER 04/06/2024 4:15 AM BEDSPREAD CUTTER us Florentino Tabernero Rufin PHARMACY INFORMATICS SPECIALIST LAB BLOOD ORDERABLES Fin al Result Performing Organization Address [facility] Co de Phone Number [address] [place] [address] * eGFR (04/05/2024 4:59 AM BEDSPREAD CUTTER) eGFR >90 >=60 mL/min/1. 73 m2 Comment: Interpretive Data Reference Interval Normal >/= 90 mL/min/1.73m2 Mildly decreased* 60 - 89 mL/min/1.73m2 Mildly to moderately decreased 45 - 59 mL/min/1.73m2 Moderately to severely decreased 30 - 44 mL/min/1.73m2 Severely decreased 15 - 29 mL/min/1.73m2 Kidney Failure < 15 mL/min/1.73m2 *Relative to young adult level Estimated glomerular filtration rate is determined by the 2020 CKD-EPI equation recommended by the National Kidney Foundation (A Unifying Approach to GFR Estimation: Recommendations of the NKF-ASK Task Force on Reassessing the Inclusion of Race in Diagnosing Kidney Disease, JASN 2020). The CKD-EPI equation should not be used for patients with unstable renal function and has not been validated in children and those over 70. Current interpretive data was last reviewed 2021. Blood 04/05/2024 4:59 AM BEDSPREAD CUTTER 04/05/2024 5:30 AM BEDSPREAD CUTTER us Florentino Tabernero Rufin PHARMACY INFORMATICS SPECIALIST LAB BLOOD ORDERABLES Fin al Result Performing Organization Address City/[facility]/ZIP Co de Phone Number KATE[address] [place] [address] * Differential, auto (04/05/2024 4:59 AM BEDSPREAD CUTTER) Pathologist [facility] Neutrophil abs 3.9 1.5 - 6.5 K/cumm Imm gran abs 0.0 0.0 - 0.1 K/cumm [facility] Lymphocyte abs 1.7 0.8 - 3.3 K/cumm [facility] Monocyte abs 0.6 0.2 - 0.8 K/cumm [facility] Eosinophil abs 0.1 0.0 - 0.5 K/cumm [facility] Basophil abs 0.0 0.0 - 0.1 K/cumm [facility] Neutrophil pct 61.8 % [facility] Comment: Interpretive Data Percent cell count reference ranges are not reported, since discordance with absolute values may lead to misinterpretation of CBC data. Current Interpretive Data was last revised on 2017. Imm gran pct 0.6 % [facility] Comment: Interpretive Data Percent cell count reference ranges are not reported, since discordance with absolute values may lead to misinterpretation of CBC data. Current Interpretive Data was last revised on 2017. Lymphocyte pct 26.9 % [facility] Comment: Interpretive Data Percent cell count reference ranges are not reported, since discordance with absolute values may lead to misinterpretation of CBC data. Current Interpretive Data was last revised on 2017. Monocyte pct 9.4 % [facility] Comment: Interpretive Data Percent cell count reference ranges are not reported, since discordance with absolute values may lead to misinterpretation of CBC data. Current Interpretive Data was last revised on 2017. Eosinophil pct 0.8 % [facility] Comment: Interpretive Data Percent cell count reference ranges are not reported, since discordance with absolute values may lead to misinterpretation of CBC data. Current Interpretive Data was last revised on 2017. Basophil pct 0.5 % [facility] Comment: Interpretive Data Percent cell count reference ranges are not reported, since discordance with absolute values may lead to misinterpretation of CBC data. Current Interpretive Data was last revised on 2017. Blood 04/05/2024 4:59 AM BEDSPREAD CUTTER 04/05/2024 5:30 AM BEDSPREAD CUTTER Savage Rutherford MD LAB BLOOD ORDERABLES Final R esult Performing Organization Address City/[facility] Co de Phone Number MADELEINE [address] [place] [address] * (ABNORMAL) CBC with auto differential (04/05/2024 4:59 AM BEDSPREAD CUTTER) [facility] WBC 6.3 3.8 - 9.9 K/cumm Hgb 8.3(L) 11.9 - 15.5 g/dL [facility] Hct 26.6(L) 35.6 - 45.5 % [facility] Plt 287 150 - 400 K/cumm [facility] MPV 9.1 9.1 - 12.3 fL [facility] RBC 2.53(L) 3.90 - 5.20 M/cumm [facility] MCV 105.1(H) 81.3 - 96.4 fL [facility] MCH 32.8 27.1 - 33.3 pg [facility] MCHC 31.2(L) 32.3 - 35.7 g/dL [facility] RDW CV 14.9 11.1 - 14.9 % [facility] RDW SD 57.0(H) 35.7 - 48.1 fL [facility] NRBC abs 0.00 0.00 - 0.01 K/cumm [facility] Blood 04/05/2024 4:59 AM BEDSPREAD CUTTER 04/05/2024 5:30 AM BEDSPREAD CUTTER Savage Rutherford MD LAB BLOOD ORDERABLES Final R esult [place] [address] [place] [address] * (ABNORMAL) Basic metabolic panel (04/05/2024 4:59 AM BEDSPREAD CUTTER) [facility] Sodium 137 135 - 145 mmol/L Potassium, pl 3.3 3.3 - 4.9 mmol/L [facility] Chloride 103 97 - 110 mmol/L [facility] CO2 25 22 - 32 mmol/L [facility] Anion gap 9 2 - 15 mmol/L [facility] BUN 10 6 - 25 mg/dL [facility] Creatinine 0.52(L) 0.60 - 1.10 mg/dL [facility] Glucose 118 70 - 199 mg/dL [facility] Comment: Interpretive Data Fasting glucose >/= 126 mg/dl is diagnostic for diabetes. Fasting is defined as no caloric intake for at least 8 hours. Fasting glucose between 100 mg/dl to 125 mg/dl is diagnostic of prediabetes. In a patient with classic symptoms of hyperglycemia or hyperglycemic crisis, a random glucose >/= 200 mg/dl is diagnostic for diabetes. In the absence of unequivocal hyperglycemia, results should be confirmed by repeat testing. The classification and Diagnosis of Diabetes Diabetes Care 2021; 46: S19-S40. Current interpretive data was last revised 2022. Calcium 8.7 8.5 - 10.3 mg/dL [facility] Blood 04/05/2024 4:59 AM BEDSPREAD CUTTER 04/05/2024 5:30 AM BEDSPREAD CUTTER [employer] SPECIALIST LAB BLOOD ORDERABLES Fin al Result Performing Organization Address [facility] Co de Phone Number [address] [place], [place] [id number] * (ABNORMAL) Vancomycin level trough (04/04/2024 11:04 AM BEDSPREAD CUTTER) [facility] Vancomycin trough 22.5(H) 10.0 - 20.0 mcg/mL Blood 04/04/2024 11:0 4 AM BEDSPREAD CUTTER 04/04/2024 11:10 AM BEDSPREAD CUTTER [employer] PH[employer] SPECIALIST LAB BLOOD ORDERABLES Fin al Result Performing Organization Address [facility] Co de Phone Number [address] [place] [address] * eGFR (04/04/2024 2:48 AM BEDSPREAD CUTTER) [facility] eGFR >90 >=60 mL/min/1. 73 m2 Comment: Interpretive Data Reference Interval Normal >/= 90 mL/min/1.73m2 Mildly decreased* 60 - 89 mL/min/1.73m2 Mildly to moderately decreased 45 - 59 mL/min/1.73m2 Moderately to severely decreased 30 - 44 mL/min/1.73m2 Severely decreased 15 - 29 mL/min/1.73m2 Kidney Failure < 15 mL/min/1.73m2 *Relative to young adult level Estimated glomerular filtration rate is determined by the 2020 CKD-EPI equation recommended by the National Kidney Foundation (A Unifying Approach to GFR Estimation: Recommendations of the NKF-ASK Task Force on Reassessing the Inclusion of Race in Diagnosing Kidney Disease, JASN 2020). The CKD-EPI equation should not be used for patients with unstable renal function and has not been validated in children and those over 70. Current interpretive data was last reviewed 2021. Blood 04/04/2024 2:48 AM BEDSPREAD CUTTER 04/04/2024 3:26 AM BEDSPREAD CUTTER us Savage Rutherford MD LAB BLOOD ORDERABLES Final R esult [facility] [address] [facility] Department [place] [address] * Differential, auto (04/04/2024 2:48 AM BEDSPREAD CUTTER) Pathologist [facility] Neutrophil abs 4.0 1.5 - 6.5 K/cumm Imm gran abs 0.1 0.0 - 0.1 K/cumm [facility] Lymphocyte abs 2.2 0.8 - 3.3 K/cumm [facility] Monocyte abs 0.8 0.2 - 0.8 K/cumm [facility] Eosinophil abs 0.1 0.0 - 0.5 K/cumm [facility] Basophil abs 0.0 0.0 - 0.1 K/cumm [facility] Neutrophil pct 56.5 % [facility] Comment: Interpretive Data Percent cell count reference ranges are not reported, since discordance with absolute values may lead to misinterpretation of CBC data. Current Interpretive Data was last revised on 2017. Imm gran pct 1.0 % [facility] Comment: Interpretive Data Percent cell count reference ranges are not reported, since discordance with absolute values may lead to misinterpretation of CBC data. Current Interpretive Data was last revised on 2017. Lymphocyte pct 30.7 % [facility] Comment: Interpretive Data Percent cell count reference ranges are not reported, since discordance with absolute values may lead to misinterpretation of CBC data. Current Interpretive Data was last revised on 2017. Monocyte pct 10.6 % [facility] Comment: Interpretive Data Percent cell count reference ranges are not reported, since discordance with absolute values may lead to misinterpretation of CBC data. Current Interpretive Data was last revised on 2017. Eosinophil pct 0.8 % [facility] Comment: Interpretive Data Percent cell count reference ranges are not reported, since discordance with absolute values may lead to misinterpretation of CBC data. Current Interpretive Data was last revised on 2017. Basophil pct 0.4 % [facility] Comment: Interpretive Data Percent cell count reference ranges are not reported, since discordance with absolute values may lead to misinterpretation of CBC data. Current Interpretive Data was last revised on 2017. Blood 04/04/2024 2:48 AM BEDSPREAD CUTTER 04/04/2024 3:26 AM BEDSPREAD CUTTER Chaitanya Robertson MD LAB BLOOD ORDERABLES Final Result [facility] [address] [facility] Department [place] [address] * (ABNORMAL) CBC with auto differential (04/04/2024 2:48 AM BEDSPREAD CUTTER) Pathologist [facility] WBC 7.1 3.8 - 9.9 K/cumm Hgb 8.0(L) 11.9 - 15.5 g/dL [facility] Hct 25.4(L) 35.6 - 45.5 % [facility] Plt 287 150 - 400 K/cumm [facility] MPV 9.2 9.1 - 12.3 fL [facility] RBC 2.44(L) 3.90 - 5.20 M/cumm [facility] MCV 104.1(H) 81.3 - 96.4 fL [facility] MCH 32.8 27.1 - 33.3 pg [facility] MCHC 31.5(L) 32.3 - 35.7 g/dL [facility] RDW CV 14.7 11.1 - 14.9 % [facility] RDW SD 55.8(H) 35.7 - 48.1 fL [facility] NRBC abs 0.00 0.00 - 0.01 K/cumm [facility] Blood 04/04/2024 2:48 AM BEDSPREAD CUTTER 04/04/2024 3:26 AM BEDSPREAD CUTTER us Chaitanya Robertson MD LAB BLOOD ORDERABLES Final Result [facility] [address] [facility] Department [place] [address] * (ABNORMAL) Comprehensive metabolic panel (04/04/2024 2:48 AM BEDSPREAD CUTTER) Sodium 137 135 - 145 mmol/L Potassium, pl 3.4 3.3 - 4.9 mmol/L [facility] Chloride 104 97 - 110 mmol/L [facility] CO2 23 22 - 32 mmol/L [facility] Anion gap 10 2 - 15 mmol/L [facility] BUN 15 6 - 25 mg/dL [facility] Creatinine 0.61 0.60 - 1.10 mg/dL [facility] Glucose 113 70 - 199 mg/dL [facility] Comment: Interpretive Data Fasting glucose >/= 126 mg/dl is diagnostic for diabetes. Fasting is defined as no caloric intake for at least 8 hours. Fasting glucose between 100 mg/dl to 125 mg/dl is diagnostic of prediabetes. In a patient with classic symptoms of hyperglycemia or hyperglycemic crisis, a random glucose >/= 200 mg/dl is diagnostic for diabetes. In the absence of unequivocal hyperglycemia, results should be confirmed by repeat testing. The classification and Diagnosis of Diabetes Diabetes Care 202; 46: S19-S40. Current interpretive data was last revised 2022. Calcium 8.4(L) 8.5 - 10.3 mg/dL [facility] Bilirubin, total 0.5 0.1 - 1.2 mg/dL [facility] Protein, pl 5.9(L) 6.5 - 8.5 g/dL [facility] Albumin 2.5(L) 3.5 - 5.0 g/dL [facility] Alk phos 241(H) 40 - 130 Units/L [facility] ALT 12 7 - 45 Units/L [facility] AST 23 10 - 45 Units/L [facility] Blood 04/04/2024 2:48 AM BEDSPREAD CUTTER 04/04/2024 3:26 AM BEDSPREAD CUTTER Savage Rutherford MD LAB BLOOD ORDERABLES Final R esult Performing Organization Address City/[facility] Co de Phone Number [address] [place] [address] * POCT glucose (04/03/2024 4:41 PM BEDSPREAD CUTTER) [facility] Glucose, POC 154 70 - 199 mg/dL Glucose comment 1 Use This Result [facility] Glucose comment 2 RN/MD Notified [facility] Blood 04/03/2024 4:41 PM BEDSPREAD CUTTER 04/03/2024 4:41 PM BEDSPREAD CUTTER Chaitanya Robertson MD LAB POCT ORDERABLES - DEVIC E Final Result Performing Organization Address [facility] de Phone Number [address] [place] [address] * US Vein Duplex Lower Extremity Bilateral Complete (04/03/2024 10:00 AM BEDSPREAD CUTTER) Anatomical Region Laterality Modality Vascular Bilateral Ultrasound 04/03/2024 Narrative 04/04/2024 11:20 AM BEDSPREAD CUTTER [employer] Job ID: [id number] [employer] Document ID: [id number] Dictated date/time: [id number] LOWER EXTREMITY VENOUS DUPLEX REASON FOR EXAM Edema. Of note, this is an incomplete study. Calf veins not visualized clearly secondary to patient body habitus. COMMENTS ON THE RIGHT Right common femoral, femoral, popliteal and great saphenous vein show spontaneous and phasic flow with normal augmentation. These veins are competent and compressible. Noncompressible branch off the right great saphenous vein consistent with acute superficial venous thrombosis. COMMENTS ON THE LEFT Veins throughout the left lower extremity with the exception of the calf veins show spontaneous and phasic flow with normal augmentation. These veins are competent and compressible. OVERALL IMPRESSION Negative for DVT bilateral lower extremities. Incomplete study secondary to patient body habitus and poor visualization of calf veins. Possible acute superficial venous thrombosis varicosity right lower extremity. Job ID/Internal Job ID: [id number] us Bing French MD IMG US PROCEDURES Nicole l Result * Lactate (04/03/2024 7:19 AM BEDSPREAD CUTTER) Lactate 1.2 0.7 - 2.0 mmol/L Blood 04/03/2024 7:19 AM BEDSPREAD CUTTER 04/03/2024 7:26 AM BEDSPREAD CUTTER us Florentino Meena Jeronimo PHARMACY INFORMATICS SPECIALIST LAB BLOOD ORDERABLES Fin al Result MADELEINE [address] [facility] Department [place] [address] * eGFR (04/03/2024 7:19 AM BEDSPREAD CUTTER) eGFR >90 >=60 mL/min/1. 73 m2 Comment: Interpretive Data Reference Interval Normal >/= 90 mL/min/1.73m2 Mildly decreased* 60 - 89 mL/min/1.73m2 Mildly to moderately decreased 45 - 59 mL/min/1.73m2 Moderately to severely decreased 30 - 44 mL/min/1.73m2 Severely decreased 15 - 29 mL/min/1.73m2 Kidney Failure < 15 mL/min/1.73m2 *Relative to young adult level Estimated glomerular filtration rate is determined by the 2020 CKD-EPI equation recommended by the National Kidney Foundation (A Unifying Approach to GFR Estimation: Recommendations of the NKF-ASK Task Force on Reassessing the Inclusion of Race in Diagnosing Kidney Disease, JASN 2020). The CKD-EPI equation should not be used for patients with unstable renal function and has not been validated in children and those over 70. Current interpretive data was last reviewed 2021. Blood 04/03/2024 7:19 AM BEDSPREAD CUTTER 04/03/2024 7:23 AM BEDSPREAD CUTTER us Florentinosammie Jeronimo PHARMACY INFORMATICS SPECIALIST LAB BLOOD ORDERABLES Fin al Result [place] [address] [facility] Department [place] [address] * Differential, auto (04/03/2024 7:19 AM BEDSPREAD CUTTER) Pathologist [facility] Neutrophil abs 5.1 1.5 - 6.5 K/cumm Imm gran abs 0.1 0.0 - 0.1 K/cumm [facility] Lymphocyte abs 1.8 0.8 - 3.3 K/cumm [facility] Monocyte abs 0.8 0.2 - 0.8 K/cumm [facility] Eosinophil abs 0.1 0.0 - 0.5 K/cumm [facility] Basophil abs 0.0 0.0 - 0.1 K/cumm [facility] Neutrophil pct 64.7 % [facility] Comment: Interpretive Data Percent cell count reference ranges are not reported, since discordance with absolute values may lead to misinterpretation of CBC data. Current Interpretive Data was last revised on 2017. Imm gran pct 1.1 % [facility] Comment: Interpretive Data Percent cell count reference ranges are not reported, since discordance with absolute values may lead to misinterpretation of CBC data. Current Interpretive Data was last revised on 2017. Lymphocyte pct 22.4 % [facility] Comment: Interpretive Data Percent cell count reference ranges are not reported, since discordance with absolute values may lead to misinterpretation of CBC data. Current Interpretive Data was last revised on 2017. Monocyte pct 10.5 % [facility] Comment: Interpretive Data Percent cell count reference ranges are not reported, since discordance with absolute values may lead to misinterpretation of CBC data. Current Interpretive Data was last revised on 2017. Eosinophil pct 0.8 % [facility] Comment: Interpretive Data Percent cell count reference ranges are not reported, since discordance with absolute values may lead to misinterpretation of CBC data. Current Interpretive Data was last revised on 2017. Basophil pct 0.5 % [facility] Comment: Interpretive Data Percent cell count reference ranges are not reported, since discordance with absolute values may lead to misinterpretation of CBC data. Current Interpretive Data was last revised on 2017. Blood 04/03/2024 7:19 AM BEDSPREAD CUTTER 04/03/2024 7:23 AM BEDSPREAD CUTTER us Florentino Meena Jeronimo PHARMACY INFORMATICS SPECIALIST LAB BLOOD ORDERABLES Fin al Result [place]INE [address] [facility] Department [place] [address] * (ABNORMAL) Pro B-type natriuretic peptide (04/03/2024 7:19 AM BEDSPREAD CUTTER) NT-proBNP 1,491(H) <=300 pg/mL Comment: Interpretive Comments: A. Dyspnea in Acute Care Setting All Ages: < 300 pg/ml, acute heart failure unlikely. < 50 yrs: 300 - 450 pg/ml, further investigation warranted. > 450 pg/ml, acute heart failure likely. 50 - 74 yrs: 300 - 900 pg/ml, further investigation warranted. > 900 pg/ml, acute heart failure likely . > or = 75 yrs: 450 - 1800 pg/ml, further investigation warranted. > 1800 pg/ml, acute heart failure likely. B. Non-acute Setting < 75 yrs < 125 pg/ml, rules out heart failure. > or = 125 pg/ml, further investigation warranted. > or = 75 yrs < 450 pg/ml, rules out heart failure. > or = 450 pg/ml, further investigation warranted. - Knowledge of each individual patient's NT-proBNP range may be more useful than using similar cut-points for every patient. Please note that marked elevations in NT-proBNP levels may be observed in state other than Left Ventricular Congestive Failure, including: acute coronary syndromes, right heart strain/failure (including pulmonary embolism and cor pulmonale), critical illness, renal failure, as well as advanced age. - References: 1. Sammie STONE et.al. Eur Heart J. 2006:27:330-337. 2. Caleb RW, Rashel AM. J. AM Sierra Cardiol: Cardiovasc Imag. 2009;2: 216- 225. Interpretive Data Last Revised Date: 2017. Blood 04/03/2024 7:19 AM BEDSPREAD CUTTER 04/03/2024 7:23 AM BEDSPREAD CUTTER [facility] [employer] [facility] LAB BLOOD ORDERABLES Fin al Result Performing Organization Address [facility] Co de Phone Number [address] [place] [address] * (ABNORMAL) Thyroid Function [place] (04/03/2024 7:19 AM BEDSPREAD CUTTER) Pathologist [facility] TSH 4.62(H) 0.30 - 4.20 mcIUnit/mL Blood 04/03/2024 7:19 AM BEDSPREAD CUTTER 04/03/2024 7:23 AM BEDSPREAD CUTTER [facility] [employer] [facility] LAB BLOOD ORDERABLES Fin al Result Performing Organization Address [facility] de Phone Number [address] [address] * (ABNORMAL) Iron profile w/ IBC (04/03/2024 7:19 AM BEDSPREAD CUTTER) [facility] Iron 36 35 - 145 mcg/dL TIBC 179(L) 250 - 400 mcg/dL [facility] Transferrin saturation 20 20 - 50 % [facility] Blood 04/03/2024 7:19 AM BEDSPREAD CUTTER 04/03/2024 7:23 AM BEDSPREAD CUTTER [facility] [employer] [facility] PHARMACY INFORMATICS SPECIALIST LAB BLOOD ORDERABLES Fin al Result Performing Organization Address [facility] de Phone Number [address] [address] * (ABNORMAL) CBC with auto differential (04/03/2024 7:19 AM BEDSPREAD CUTTER) [facility] WBC 7.9 3.8 - 9.9 K/cumm Hgb 8.4(L) 11.9 - 15.5 g/dL [facility] Hct 26.5(L) 35.6 - 45.5 % [facility] Plt 281 150 - 400 K/cumm [facility] MPV 9.4 9.1 - 12.3 fL [facility] RBC 2.53(L) 3.90 - 5.20 M/cumm [facility] MCV 104.7(H) 81.3 - 96.4 fL [facility] MCH 33.2 27.1 - 33.3 pg [facility] MCHC 31.7(L) 32.3 - 35.7 g/dL [facility] RDW CV 14.5 11.1 - 14.9 % [facility] RDW SD 55.3(H) 35.7 - 48.1 fL [facility] NRBC abs 0.00 0.00 - 0.01 K/cumm [facility] Blood 04/03/2024 7:19 AM BEDSPREAD CUTTER 04/03/2024 7:23 AM BEDSPREAD CUTTER Florentino [employer] PHARMACY INFORMATICS SPECIALIST LAB BLOOD ORDERABLES Fin al Result Performing Organization Address City/[facility] Co de Phone Number KATE[address] [place] [address] * (ABNORMAL) Erythrocyte sedimentation rate (04/03/2024 7:19 AM BEDSPREAD CUTTER) [facility] Erythrocyte sedimentation rate 60(H) 1 - 30 mm/hr Comment:Testing performed by : [facility], [address] [place] [address]., [id number] Blood 04/03/2024 7:19 AM BEDSPREAD CUTTER 04/03/2024 7:23 AM BEDSPREAD CUTTER Florentino [employer] PHARMACY INFORMATICS SPECIALIST LAB BLOOD ORDERABLES Fin al Result Performing Organization Address [facility] Co de Phone Number [address] [place] [address] * (ABNORMAL) CRP (acute phase) (04/03/2024 7:19 AM BEDSPREAD CUTTER) Pathologist [facility] CRP 203.0(H) <=10.0 mg/L Blood 04/03/2024 7:19 AM BEDSPREAD CUTTER 04/03/2024 7:23 AM BEDSPREAD CUTTER Florentino Tabernero [employer] PHARMACY INFORMATICS SPECIALIST LAB BLOOD ORDERABLES Fin al Result Performing Organization Address [facility] de Phone Number [address] [address] * T4, free (04/03/2024 7:19 AM BEDSPREAD CUTTER) Free T4 0.92 0.90 - 1.70 ng/dL Blood 04/03/2024 7:19 AM BEDSPREAD CUTTER 04/03/2024 7:23 AM BEDSPREAD CUTTER [facility]ative [facility] 04/03/2024 9:03 AM BEDSPREAD CUTTER This test was reflexed from a TSH result. Florentino Tabernero [employer] PHARMACY INFORMATICS SPECIALIST LAB BLOOD ORDERABLES Fin al Result Performing Organization Address [facility] de Phone Number [address] [place] [address] * Phosphorus (04/03/2024 7:19 AM BEDSPREAD CUTTER) Phosphorus, pl 4.3 2.3 - 4.5 mg/dL Blood 04/03/2024 7:1 9 AM BEDSPREAD CUTTER 04/03/2024 7:23 AM BEDSPREAD CUTTER Florentino Tabernero [employer] PHARMACY INFORMATICS SPECIALIST LAB BLOOD ORDERABLES Fin al Result Performing Organization Address [facility] [facility] Co de Phone Number [address] [place] [address] * Magnesium (04/03/2024 7:19 AM BEDSPREAD CUTTER) Magnesium 1.4 1.4 - 2.5 mg/dL Blood 04/03/2024 7:19 AM BEDSPREAD CUTTER 04/03/2024 7:23 AM BEDSPREAD CUTTER [facility] LAB BLOOD ORDERABLES Fin al Result Performing Organization Address [facility] de Phone Number [address] [address] * (ABNORMAL) Hemoglobin A1c (04/03/2024 7:19 AM BEDSPREAD CUTTER) Hgb A1C 5.9(H) 4.0 - 5.6 % Estimated Average Glucose 123 mg/dL [place]INE Comment: The ADA recommends reporting an estimated Average Glucose (eAG) with all Hemoglobin A1c results using the equation derived from a study of 507 normal and diabetic adults. Minority populations were underrepresented and children were not included. (Diabetes Care 31:9107-0752, 2008). The eAG is not equivalent to a fasting glucose. Blood 04/03/2024 7:19 AM BEDSPREAD CUTTER 04/03/2024 7:23 AM BEDSPREAD CUTTER [facility] LAB BLOOD ORDERABLES Fin al Result Performing Organization Address [facility] de Phone Number [address] [address] * Folate (04/03/2024 7:19 AM BEDSPREAD CUTTER) [facility] Folic acid >20.0 >=5.0 ng/mL Blood 04/03/2024 7:19 AM BEDSPREAD CUTTER 04/03/2024 7:23 AM BEDSPREAD CUTTER [facility] LAB BLOOD ORDERABLES Fin al Result Performing Organization Address [facility] Co de Phone Number [address] [place] [address] * (ABNORMAL) Ferritin (04/03/2024 7:19 AM BEDSPREAD CUTTER) [facility] Ferritin 275(H) 15 - 150 ng/mL Blood 04/03/2024 7:19 AM BEDSPREAD CUTTER 04/03/2024 7:23 AM BEDSPREAD CUTTER Florentino Tabernero [facility] LAB BLOOD ORDERABLES Fin al Result Performing Organization Address City/[facility]/ZIP Co de Phone Number KATE[address] [place] [address] * Vitamin B12 (04/03/2024 7:19 AM BEDSPREAD CUTTER) Vitamin B12 850 230 - 1,250 pg/mL Blood 04/03/2024 7:19 AM BEDSPREAD CUTTER 04/03/2024 7:23 AM BEDSPREAD CUTTER [facility] LAB BLOOD ORDERABLES Fin al Result Performing Organization Address [facility] de Phone Number [place] [address] [facility] [place] [address] * (ABNORMAL) Lipid panel (04/03/2024 7:19 AM BEDSPREAD CUTTER) Cholesterol 121 30 - 199 mg/dL Comment: Interpretive Data Ages < or = 19 years Acceptable: <170 mg/dL Borderline high: 170-199 mg/dL High: >or= 200 mg/dL Ages > or = 20 years Desirable: <200 mg/dL Borderline high: 200-239 mg/dL High: >or= 240 mg/dL Literature References: 1. Expert Panel on Integrated Guidelines for Cardiovascular Health and Risk Reduction in Children and Adolescents. Pediatrics 2011;128:S213 2. NCEP Expert Panel. Circulation 2004;110:227 Current Interpretive Data was last revised on 2017. Triglycerides 143 <=149 mg/dL MADELEINE Comment: Interpretive Data Ages < or = 9 years Acceptable: <75 mg/dL Borderline high: 75-99 mg/dL High: >or= 100 mg/dL Ages 10 to 20 years Acceptable: <90 mg/dL Borderline high: 90-129 mg/dL High: >or= 130 mg/dL Ages > or = 20 years Desirable: <150 mg/dL Borderline high: 150-199 mg/dL High: 200-499 mg/dL Very high: >or= 499 mg/dL Literature References: 1. Expert Panel on Integrated Guidelines for Cardiovascular Health and Risk Reduction in Children and Adolescents. Pediatrics 2011;128:S213 2. NCEP Expert Panel. Circulation 2004;110:227 Current Interpretive Data was last revised on 2017. HDL 38(L) >=40 mg/dL MADELEINE EDUARDO Comment: Interpretive Data Ages < or = 19 years Acceptable: >45 mg/dL Borderline low: 40-45 mg/dL Low: <40 mg/dL Ages > or = 20 years Desirable: >or= 60 mg/dL Low: <40 mg/dL Literature References: 1. Expert Panel on Integrated Guidelines for Cardiovascular Health and Risk Reduction in Children and Adolescents. Pediatrics 2011;128:S213 2. NCEP Expert Panel. Circulation 2004;110:227 Current Interpretive Data was last revised on 2017. LDL, calculated 58 <=129 mg/dL MADELEINE EDUARDO Comment: Interpretive Data Ages < or = 19 years Acceptable: <110 mg/dL Borderline high: 110-129 mg/dL High: >or= 130 mg/dL Ages > or = 20 years Optimal: <100 mg/dL Near optimal: 100-129 mg/dL Borderline high: 130-159 mg/dL High: >160 mg/dL Calculated using the Jose Alfredo LDL-C estimating equation. This equation was implemented on 2023. Prior to this date LDL-C was estimated using the Friedewald equation. Literature References: 1. Expert Panel on Integrated Guidelines for Cardiovascular Health and Risk Reduction in Children and Adolescents. Pediatrics 2011;128:S213 2. NCEP Expert Panel. Circulation 2004;110:227 3. Jose Alfredo Wheat et al. WALI Cardiol. 2019July 04;5(5):540-548. doi: 10.1001/jamacardio.2020.0013 Current Interpretive Data was last revised on 2023. Non-HDL Cholesterol 83 mg/dL MADELEINE EDUARDO Comment: Interpretive Data Ages < or = 19 years Acceptable: <120 mg/dL Borderline high: 120-144 mg/dL High: >145 mg/dL Ages > or = 20 years When triglycerides are >200 mg/dL, Non-HDL cholesterol is a secondary target of therapy with treatment goals that are 30 mg/dL greater than the LDL cholesterol target. Literature References: 1. Expert Panel on Integrated Guidelines for Cardiovascular Health and Risk Reduction in Children and Adolescents. Pediatrics 2011;128:S213 2. NCEP Expert Panel. Circulation 2004;110:227 Current Interpretive Data was last revised on 2017. Chol/HDL ratio 3 [facility] Blood 04/03/2024 7:19 AM BEDSPREAD CUTTER 04/03/2024 7:23 AM BEDSPREAD CUTTER [facility] LAB BLOOD ORDERABLES Fin al Result Performing Organization Address [facility] de Phone Number [address] [place] [address] * Basic metabolic panel (04/03/2024 7:19 AM BEDSPREAD CUTTER) [facility] Sodium 136 135 - 145 mmol/L Potassium, pl 3.6 3.3 - 4.9 mmol/L [facility] Chloride 104 97 - 110 mmol/L [facility] CO2 22 22 - 32 mmol/L [facility] Anion gap 10 2 - 15 mmol/L [facility] BUN 20 6 - 25 mg/dL [facility] Creatinine 0.65 0.60 - 1.10 mg/dL [facility] Glucose 102 70 - 199 mg/dL [facility] Comment: Interpretive Data Fasting glucose >/= 126 mg/dl is diagnostic for diabetes. Fasting is defined as no caloric intake for at least 8 hours. Fasting glucose between 100 mg/dl to 125 mg/dl is diagnostic of prediabetes. In a patient with classic symptoms of hyperglycemia or hyperglycemic crisis, a random glucose >/= 200 mg/dl is diagnostic for diabetes. In the absence of unequivocal hyperglycemia, results should be confirmed by repeat testing. The classification and Diagnosis of Diabetes Diabetes Care 202; 46: S19-S40. Current interpretive data was last revised 2022. Calcium 8.7 8.5 - 10.3 mg/dL [facility] Blood 04/03/2024 7:19 AM BEDSPREAD CUTTER 04/03/2024 7:23 AM BEDSPREAD CUTTER Florentino Tabernero Rufin [facility] LAB BLOOD ORDERABLES Fin al Result Performing Organization Address [facility] Co de Phone Number [address] [place] [address] * POCT glucose (04/03/2024 12:14 AM BEDSPREAD CUTTER) Glucose, POC 87 70 - 199 mg/dL Blood 04/03/2024 12:1 4 AM BEDSPREAD CUTTER 04/03/2024 12:14 AM BEDSPREAD CUTTER us Ky Andino MD LAB POCT ORDERABLES - DEVICE Final Result [place] [id number] [place] [address] * CT Entire Lower Extremity Left W WO Contrast (04/03/2024 12:08 AM BEDSPREAD CUTTER) Anatomical Region Laterality Modality Lower Extremities Left Computed Tomog sheela 04/03/2024 12:1 4 AM BEDSPREAD CUTTER Narrative 04/03/2024 12:19 AM BEDSPREAD CUTTER EXAM DESCRIPTION: CT ENTIRE LOWER EXTREMITY LEFT W WO CONTRAST REASON FOR STUDY: lymphangitis; cellulitis; r/o abscess Nolvia Branch is a 54 y.o. female, with PMHx as below, presenting to the emergency department with complaints of left lower extremity redness, swelling, warmth, pain with weight-bearing and ambulation and a large well-circumscribed circumferential ulceration to the anterior inferior knee / superior tibia. She relates ulcerations draining yellow is foul-smelling discharge. She explains the ulcer started off as a small wound she acquired during her last hospital stay. She explains her primary care physician told her to come into the emergency department for IV antibiotics as she believes it is infected. She also relates a nonproductive persistent cough for approximately the last month. TECHNIQUE: Multidetector CT scan of the left leg from above the knee through the foot was performed before and after intravenous contrast. Coronal and sagittal images were reconstructed. Dose modulation adjustment of the mA and/or kV has been performed per [facility] protocols according to patient size and indication CONTRAST TYPE/DOSE: 100mL of IOVERSOL 350 MG IODINE/ML INTRAVENOUS SYRINGE injected via intravenous COMPARISON: 02/26/2024 FINDINGS: Bones: No fracture or dislocation is seen. Lateral tilt of the patella is noted. Degenerative changes are seen of the left knee. No bone erosions are seen. Soft Tissues: Prominent open wound anterior to the knee is noted. There is also large open wound of the medial aspect of the knee. There is concern for a defined 3.5 cm fluid collection lateral to the knee which could represent an abscess. Extensive strandy fluid is seen in the soft tissues particularly near the knee. Significant strandy fluid is also seen in the subcutaneous tissues near the ankle. Other: No other finding. IMPRESSION: Possible 3.5 cm abscess lateral to the knee within the subcutaneous tissues. Prominent ulcerations medial and anterior to the knee. There appears to be some tracking of air in the soft tissues anteromedial to the knee which may relate to the medial open wound. Extensive strandy fluid throughout the soft tissues near the knee and near the ankle could represent edema or cellulitis. THIS IS AN ELECTRONICALLY VERIFIED FINAL REPORT 04/03/2024 12:19 AM - Electronically signed by John Bright M.D. T: Report ID: [id number] Reading Location: [id number] Procedure Note John Bright MD - 04/03/2024 EXAM DESCRIPTION: CT ENTIRE LOWER EXTREMITY LEFT W WO CONTRAST REASON FOR STUDY: lymphangitis; cellulitis; r/o abscess Nolvia Branch is a 54 y.o. female, with PMHx as below, presenting tot emergency department with complaints of left lower extremity redness, swelling, warmth, pain with weight-bearing and ambulation and a large well-circumscribed circumferential ulceration to the anterior inferiorknee / superior tibia. She relates ulcerations draining yellow isfoul-smelling discharge. She explains the ulcer started off as a small wound sheacquired during her last hospital stay. She explains her primary care physiciantold her to come into the emergency department for IV antibiotics as shebelieves it is infected. She also relates a nonproductive persistent cough for approximately the last month. TECHNIQUE: Multidetector CT scan of the left leg from above the knee through the foot was performed before and after intravenous contrast.Coronal and sagittal images were reconstructed. Dose modulation adjustment of the mA and/or kV has been performed per [facility] protocols according to patient size and indication CONTRAST TYPE/DOSE: 100mL of IOVERSOL 350 MG IODINE/ML INTRAVENOUSSYRINGE injected via intravenous COMPARISON: 02/26/2024 FINDINGS: Bones: No fracture or dislocation is seen. Lateral tilt ofthe patella is noted. Degenerative changes are seen of the left knee. [place] erosions are seen. Soft Tissues: Prominent open wound anterior to the knee is noted. Thereis also large open wound of the medial aspect of the knee. There is concernfor a defined 3.5 cm fluid collection lateral to the knee which couldrepresent an abscess. Extensive strandy fluid is seen in the soft tissues particularly near the knee. Significant strandy fluid is also seen in the subcutaneous tissues near the ankle. Other: No other finding. IMPRESSION: Possible 3.5 cm abscess lateral to the knee within the subcutaneous tissues. Prominent ulcerations medial and anterior to the knee. There appears hamlet some tracking of air in the soft tissues anteromedial to the knee whichmay relate to the medial open wound. Extensive strandy fluid throughout the soft tissues near the knee and nearthe ankle could represent edema or cellulitis. THIS IS AN ELECTRONICALLY VERIFIED FINAL REPORT 04/03/2024 12:19 AM - Electronically signed by John Bright M.D. T: Report ID: [id number] Reading Location: [place] [address] Bing French MD IM CT PROCEDURES Nicole l Result * Influenza A/B, RSV, and COVID-19 PCR Nasopharyngeal (04/02/2024 9:57 PM BEDSPREAD CUTTER) COVID-19 RNA Negative Negative Influenza A RNA Negative Negative [place] Influenza B RNA Negative Negative MADELEINE EDUARDO RSV RNA Negative Negative MADELEINE EDUARDO Comment: Interpretive data: Testing performed by [facility]. This test is performed using the [employer] Xpert Xpress CoV-2/Flu/RSV plus assay. This is a multiplex, real-time reverse transcriptase PCR assay intended for the qualitative detection of nucleic acid from SARS-CoV-2, influenza A, influenza B, and respiratory syncytial virus. This assay has been cleared by the [place] Food and Drug administration. The performance characteristics have been verified by the [facility]. Results must be considered in the clinical context, and a negative result does not rule out infection. Interpretive Data last revised 2023 Nasopharyngeal 04/02/2024 9: 57 PM BEDSPREAD CUTTER 04/02/2024 10:05 PM BEDSPREAD CUTTER Narrative MADELEINE - 04/02/2024 10:49 PM BEDSPREAD CUTTER Is the Patient experiencing symptoms consistent with COVID?->Yes Bing French MD LAB MICROBIOLOGY - GEN ERAL ORDERABLES Final Result [place] [address] [facility] [place] [address] * (ABNORMAL) Aerobic and anaerobic culture and gram stain Wound Thigh, left (04/02/2024 9:57 PM BEDSPREAD CUTTER) Direct Specimen Exam Stain: Moderate polymorphonuclear leukocytes seen. Moderate Gram Negative Bacilli Comment:Testing performed by : [facility], [address] [place] [address]., [id number] Report Final Report: Few Mixed aerobic and anaerobic microorganisms Includes the following: Few Pseudomonas aeruginosa Few Pseudomonas aeruginosa #2 (.) MADELEINE Comment:Testing performed by : [facility], [address] [place] [address]., [id number] Organism PSEUDOMONAS AERUGINOSA [place]INE Organism PSEUDOMONAS AERUGINOSA [place] Organism MIXED AEROBIC AND ANAEROBIC MICROORGANISMS [place]ADE[place]INE Wound (Thigh, left) 04/02/2024 9:57 PM BEDSPREAD CUTTER 04/02/2024 11:37 PM BEDSPREAD CUTTER Narrative MADELEINE EDUARDO - 04/10/2024 10:45 AM BEDSPREAD CUTTER Specimen received on an ESwab. Testing performed by [facility] ([phone]) Specimens submitted from normally sterile body sites will have all bacterial morphotypes identified. Specimens that contain grossly mixed joseph and/or are from body sites that are not normally sterile will be examined for Staphylococcus aureus, Pseudomonas aeruginosa, beta-hemolytic strep, vancomycin-resistant Enterococcus, Bacteroides, Parabacteroides, Clostridium perfringens and fungus. If any of these are isolated, the organism will be reported. Current interpretive data was last revised on 2019. Organism Antibiotic Method Susceptibility Pseudomonas aeruginosa Aztreonam INTERPRETATION Susceptible Pseudomonas aeruginosa Ceftazidime INTERPRETATION Susceptible Pseudomonas aeruginosa Ciprofloxacin INTERPRETATION Susceptible Pseudomonas aeruginosa Cefepime INTERPRETATION Susceptible Pseudomonas aeruginosa Imipenem INTERPRETATION Susceptible Pseudomonas aeruginosa Meropenem INTERPRETATION Susceptible Pseudomonas aeruginosa Piperacillin/Tazobactam INTERPR ETATION Susceptible Pseudomonas aeruginosa Tobramycin INTERPRETATION Susceptible Pseudomonas aeruginosa Aztreonam INTERPRETATION Intermediate Pseudomonas aeruginosa Ceftazidime INTERPRETATION Susceptible Pseudomonas aeruginosa Ciprofloxacin INTERPRETATION Susceptible Pseudomonas aeruginosa Cefepime INTERPRETATION Susceptible Pseudomonas aeruginosa Imipenem INTERPRETATION Susceptible Pseudomonas aeruginosa Meropenem INTERPRETATION Susceptible Pseudomonas aeruginosa Piperacillin/Tazobactam INTERPR ETATION Susceptible Pseudomonas aeruginosa Tobramycin INTERPRETATION Susceptible us Bing French MD LAB MICROBIOLOGY - GEN ERAL ORDERABLES Final Result [place] [address] [facility] Department [place] [address] * Blood culture Blood Peripheral (04/02/2024 9:57 PM BEDSPREAD CUTTER) Report Final Report: No growth Comment:Testing performed by : [facility], [address] [place]., [address] Blood (Peripheral) 04/02/2024 9:57 PM BEDSPREAD CUTTER 04/02/2024 11:46 PM BEDSPREAD CUTTER [facility] MADELEINE - 04/07/2024 7:00 AM BEDSPREAD CUTTER From a different site than #1. Draw Blood cultures before administration of Antibiotics Collection->Peripheral Received only aerobic blood culture bottle 1. Blood cultures are incubated for 4 days on a continuously monitored blood culture system. The first report of a negative culture is issued within 24 hours of receipt of the specimen in the laboratory. 2. Positive culture results are reported as soon as they are detected. 3. The most important factor for detection of microbes in the setting of bloodstream infection is the volume of blood submitted for culture. Failure to collect an optimal blood volume can result in false negative blood cultures. 4. For pediatric patients, the recommended blood volume to collect follows a weight based strategy. See the electronic test catalog for collection instructions. 5. For positive blood cultures, a rapid molecular test may be performed for organism identification using the tru ePlex blood culture identification panel for gram positive (BCID-GP) and gram negative (BCID-GN) organisms. This nucleic acid amplification test detects microbial DNA in positive blood culture broth. This assay has been cleared by the [place] Food and Drug Administration and its performance characteristics have been verified by the [facility]. For questions about this culture, contact the Microbiology Laboratory at [phone]. Interpretive data was last revised on 23. Bing French MD LAB MICROBIOLOGY - GEN ERAL ORDERABLES Final Result [place] [address] [facility] [place] [address] * Blood culture Blood Peripheral (04/02/2024 9:57 PM BEDSPREAD CUTTER) Report Final Report: No growth Comment:Testing performed by : [facility], [address] [place]., [address] Blood (Peripheral) 04/02/2024 9:57 PM BEDSPREAD CUTTER 04/02/2024 11:46 PM BEDSPREAD CUTTER Narrative MADELEINE - 04/07/2024 7:00 AM BEDSPREAD CUTTER Draw Blood cultures before administration of Antibiotics Collection->Peripheral Received only aerobic blood culture bottle 1. Blood cultures are incubated for 4 days on a continuously monitored blood culture system. The first report of a negative culture is issued within 24 hours of receipt of the specimen in the laboratory. 2. Positive culture results are reported as soon as they are detected. 3. The most important factor for detection of microbes in the setting of bloodstream infection is the volume of blood submitted for culture. Failure to collect an optimal blood volume can result in false negative blood cultures. 4. For pediatric patients, the recommended blood volume to collect follows a weight based strategy. See the electronic test catalog for collection instructions. 5. For positive blood cultures, a rapid molecular test may be performed for organism identification using the tru ePlex blood culture identification panel for gram positive (BCID-GP) and gram negative (BCID-GN) organisms. This nucleic acid amplification test detects microbial DNA in positive blood culture broth. This assay has been cleared by the [place] Food and Drug Administration and its performance characteristics have been verified by the [facility]. For questions about this culture, contact the Microbiology Laboratory at [phone]. Interpretive data was last revised on 23. Bing French MD LAB MICROBIOLOGY - GEN ERAL ORDERABLES Final Result Performing Organization Address [facility] de Phone Number [place] [address] [address] * (ABNORMAL) D-dimer, quantitative (04/02/2024 9:57 PM BEDSPREAD CUTTER) D-Dimer 2,040(H) <=499 ng/mL FEU Comment: Interpretive data FDA approved the D-dimer, in conjunction with a low or moderate pretest probability score, to exclude venous thromboembolic events (VTE) (PE and DVT) in outpatients when the D-dimer result is < 500 ng/ml FEU. Evidence supports using an age-adjusted D-dimer cut-off for outpatients older than 50 (age x 10) to improve specificity without sacrificing sensitivity. Example: age 68, VTE cut-off 680 ng/ml FEU. References; Schouten HT et al. Brit Med J. 2013;346:f2492. Chas et al. Annals Int Med. 2015;163:701-11. Current interpretive data was last revised on 2019. Blood 04/02/2024 9:57 PM BEDSPREAD CUTTER 04/02/2024 9:59 PM BEDSPREAD CUTTER Bing French MD LAB BLOOD ORDERABLES F inal Result Performing Organization Address [facility] de Phone Number M[place] [address] [place] [address] * XR Chest 1 Vw Portable (04/02/2024 9:35 PM BEDSPREAD CUTTER) Anatomical Region Laterality Modality Body, Chest N/A Computed Radiogr aphy 04/02/2024 9:44 PM BEDSPREAD CUTTER Narrative 04/02/2024 9:46 PM BEDSPREAD CUTTER EXAM DESCRIPTION: XR CHEST 1 VIEW REASON FOR STUDY: coughing c/o wound to left leg pain tonight. Reports home health comes to her house to help dress wound. Pt. Taking oral antibiotics. Was told by PCP she needed to come in for IV antibiotics. Denies fevers or chills. Left leg swollen. TECHNIQUE: 2 radiographic view(s) of the chest. COMPARISON: 03/03/2024 FINDINGS: LUNGS: Minor chronic lung changes are noted. No consolidation, effusion or other acute process is seen. HEART/MEDIASTINUM: Cardiac silhouette normal in size. Mediastinal and hilar contours appear normal. LINES/TUBES: None. BONES: Right shoulder replacement is noted IMPRESSION: No acute cardiopulmonary abnormality. THIS IS AN ELECTRONICALLY VERIFIED FINAL REPORT 04/02/2024 9:46 PM - Electronically signed by John Bright M.D. KH T: Report ID: [id number] Reading Location: [id number] Procedure Note John Bright MD - 04/02/2024 EXAM DESCRIPTION: XR CHEST 1 VIEW REASON FOR STUDY: coughing c/o wound to left leg pain tonight. Reports home health comes to her houseto help dress wound. Pt. Taking oral antibiotics. Was told by PCP she neededto come in for IV antibiotics. Denies fevers or chills. Left leg swollen. TECHNIQUE: 2 radiographic view(s) of the chest. COMPARISON: 03/03/2024 FINDINGS: LUNGS: Minor chronic lung changes are noted. No consolidation, effusion or other acute process is seen. HEART/MEDIASTINUM: Cardiac silhouette normal in size. Mediastinal andhilar contours appear normal. LINES/TUBES: None. BONES: Right shoulder replacement is noted IMPRESSION: No acute cardiopulmonary abnormality. THIS IS AN ELECTRONICALLY VERIFIED FINAL REPORT 04/02/2024 9:46 PM - Electronically signed by John Bright M.D. KH T: Report ID: [id number] Reading Location: [id number] Bing French MD IMG XR PROCEDURES Nicole l Result * XR Tibia Fibula Left 2 views (04/02/2024 5:10 PM BEDSPREAD CUTTER) Anatomical Region Laterality Modality Lower Extremities, Lower Leg Left Com puted Radiography 04/02/2024 5:29 PM BEDSPREAD CUTTER Narrative 04/02/2024 5:33 PM BEDSPREAD CUTTER EXAM DESCRIPTION: XR TIBIA FIBULA LEFT 2 VIEWS REASON FOR STUDY: infection Pt. To ED with c/o wound to left leg. Reports home health comes to her house to help dress wound. Pt. Taking oral antibiotics. Was told by PCP she needed to come in for IV antibiotics. Denies fevers or chills. Left leg swollen. Pt states she has a wound to the anterior and posterior portion of her left knee. Lower left leg is swollen and red. TECHNIQUE: 4 radiographic view(s) of the left lower leg . COMPARISON: 02/26/2024 FINDINGS: Moderate degenerative changes are seen of the left knee. No fracture or dislocation is identified. There is air in the anterior soft tissues of the knee below the patella which may represent a large ulceration. There may also be some air in the soft tissues medial to the knee. This is not well perceived. IMPRESSION: No fracture or dislocation. Air in the anterior soft tissues of the knee which may represent a large ulceration. There may also be some air in the soft tissues medial to the knee. THIS IS AN ELECTRONICALLY VERIFIED FINAL REPORT 04/02/2024 5:33 PM - Electronically signed by John Bright M.D. T: Report ID: [id number] Reading Location: [id number] Procedure Note John Bright MD - 04/02/2024 EXAM DESCRIPTION: XR TIBIA FIBULA LEFT 2 VIEWS REASON FOR STUDY: infection Pt. To ED with c/o wound to left leg. Reports home health comes to herhouse to help dress wound. Pt. Taking oral antibiotics. Was told by PCP sheneeded to come in for IV antibiotics. Denies fevers or chills. Left leg swollen.Pt states she has a wound to the anterior and posterior portion of her leftknee. Lower left leg is swollen and red. TECHNIQUE: 4 radiographic view(s) of the left lower leg . COMPARISON: 02/26/2024 FINDINGS: Moderate degenerative changes are seen of the left knee. No fracture or dislocation is identified. There is air in the anterior soft tissues of the knee below the patella which may represent a largeulceration. There may also be some air in the soft tissues medial to the knee. Thisis not well perceived. IMPRESSION: No fracture or dislocation. Air in the anterior soft tissues of the knee which may represent a large ulceration. There may also be some air in the soft tissues medial to theknee. THIS IS AN ELECTRONICALLY VERIFIED FINAL REPORT 04/02/2024 5:33 PM - Electronically signed by John POLANCO T: Report ID: [id number] Reading Location: [id number] us Bing French MD IMG XR PROCEDURES Nicole l Result * XR Knee Left 1 or 2 Views (04/02/2024 5:10 PM BEDSPREAD CUTTER) Anatomical Region Laterality Modality Lower Extremities, Knee Left Computed Radiography 04/02/2024 5:33 PM BEDSPREAD CUTTER Narrative 04/02/2024 5:35 PM BEDSPREAD CUTTER EXAM DESCRIPTION: XR KNEE LEFT 1 OR 2 VIEWS REASON FOR STUDY: infection Pt. To ED with c/o wound to left leg. Reports home health comes to her house to help dress wound. Pt. Taking oral antibiotics. Was told by PCP she needed to come in for IV antibiotics. Denies fevers or chills. Left leg swollen. Pt states she has a wound to the anterior and posterior portion of her left knee. Lower left leg is swollen and red. TECHNIQUE: 3 radiographic view(s) of the left knee . COMPARISON: 02/26/2024 Findings/impression: Air within a defect anterior to the knee may represent a large ulceration. There may also be some air in the soft tissues medial to the knee. This is not well established. This is could also relate to folds of the skin. Mild degenerative changes of the knee are noted. No fracture or dislocation is identified. The bones appear somewhat osteopenic. THIS IS AN ELECTRONICALLY VERIFIED FINAL REPORT 04/02/2024 5:35 PM - Electronically signed by John POLANCO T: Report ID: [id number] Reading Location: [id number] Procedure Note John Bright MD - 04/02/2024 EXAM DESCRIPTION: XR KNEE LEFT 1 OR 2 VIEWS REASON FOR STUDY: infection Pt. To ED with c/o wound to left leg. Reports home health comes to herhouse to help dress wound. Pt. Taking oral antibiotics. Was told by PCP sheneeded to come in for IV antibiotics. Denies fevers or chills. Left leg swollen.Pt states she has a wound to the anterior and posterior portion of her leftknee. Lower left leg is swollen and red. TECHNIQUE: 3 radiographic view(s) of the left knee . COMPARISON: 02/26/2024 Findings/impression: Air within a defect anterior to the knee mayrepresent a large ulceration. There may also be some air in the soft tissues medialto the knee. This is not well established. This is could also relate tofolds of the skin. Mild degenerative changes of the knee are noted. Nofracture or dislocation is identified. The bones appear somewhat osteopenic. THIS IS AN ELECTRONICALLY VERIFIED FINAL REPORT 04/02/2024 5:35 PM - Electronically signed by John Bright M.D. T: Report ID: [id number] Reading Location: [id number] us Nikhil Barajas Fraire DO IMG XR PROCEDURES Nicole l Result * Sepsis Lactate w/ Reflex (04/02/2024 4:07 PM BEDSPREAD CUTTER) Pathologist [facility] Sepsis Lactate 2.0 0.7 - 2.0 mmol/L Blood 04/02/2024 4:07 PM BEDSPREAD CUTTER 04/02/2024 4:10 PM BEDSPREAD CUTTER us Bing French MD LAB BLOOD ORDERABLES F inal Result [place] [address] [facility] [place] [address] * eGFR (04/02/2024 4:07 PM BEDSPREAD CUTTER) Pathologist [facility] eGFR 83 >=60 mL/min/1. 73 m2 Comment: Interpretive Data Reference Interval Normal >/= 90 mL/min/1.73m2 Mildly decreased* 60 - 89 mL/min/1.73m2 Mildly to moderately decreased 45 - 59 mL/min/1.73m2 Moderately to severely decreased 30 - 44 mL/min/1.73m2 Severely decreased 15 - 29 mL/min/1.73m2 Kidney Failure < 15 mL/min/1.73m2 *Relative to young adult level Estimated glomerular filtration rate is determined by the 2020 CKD-EPI equation recommended by the National Kidney Foundation (A Unifying Approach to GFR Estimation: Recommendations of the NKF-ASK Task Force on Reassessing the Inclusion of Race in Diagnosing Kidney Disease, JASN 202). The CKD-EPI equation should not be used for patients with unstable renal function and has not been validated in children and those over 70. Current interpretive data was last reviewed 2021. Blood 04/02/2024 4:07 PM BEDSPREAD CUTTER 04/02/2024 4:11 PM BEDSPREAD CUTTER Bing French MD LAB BLOOD ORDERABLES F inal Result [facility] [address] [facility] [place] [address] * (ABNORMAL) Differential, auto (04/02/2024 4:07 PM BEDSPREAD CUTTER) Pathologist [facility] Neutrophil abs 8.7(H) 1.5 - 6.5 K/cumm Imm gran abs 0.2(H) 0.0 - 0.1 K/cumm [facility] Lymphocyte abs 2.3 0.8 - 3.3 K/cumm [facility] Monocyte abs 0.9(H) 0.2 - 0.8 K/cumm [facility] Eosinophil abs 0.0 0.0 - 0.5 K/cumm [facility] Basophil abs 0.0 0.0 - 0.1 K/cumm [facility] Neutrophil pct 72.1 % [facility] Comment: Interpretive Data Percent cell count reference ranges are not reported, since discordance with absolute values may lead to misinterpretation of CBC data. Current Interpretive Data was last revised on 2017. Imm gran pct 1.4 % [facility] Comment: Interpretive Data Percent cell count reference ranges are not reported, since discordance with absolute values may lead to misinterpretation of CBC data. Current Interpretive Data was last revised on 2017. Lymphocyte pct 18.7 % [facility] Comment: Interpretive Data Percent cell count reference ranges are not reported, since discordance with absolute values may lead to misinterpretation of CBC data. Current Interpretive Data was last revised on 2017. Monocyte pct 7.2 % [facility] Comment: Interpretive Data Percent cell count reference ranges are not reported, since discordance with absolute values may lead to misinterpretation of CBC data. Current Interpretive Data was last revised on 2017. Eosinophil pct 0.3 % [facility] Comment: Interpretive Data Percent cell count reference ranges are not reported, since discordance with absolute values may lead to misinterpretation of CBC data. Current Interpretive Data was last revised on 2017. Basophil pct 0.3 % [facility] Comment: Interpretive Data Percent cell count reference ranges are not reported, since discordance with absolute values may lead to misinterpretation of CBC data. Current Interpretive Data was last revised on 2017. Blood 04/02/2024 4:07 PM BEDSPREAD CUTTER 04/02/2024 4:11 PM BEDSPREAD CUTTER us Bing French MD LAB BLOOD ORDERABLES F inal Result [facility] [address] [facility] Department [place] [address] * (ABNORMAL) CBC with auto differential (04/02/2024 4:07 PM BEDSPREAD CUTTER) WBC 12.1(H) 3.8 - 9.9 K/cumm Hgb 9.9(L) 11.9 - 15.5 g/dL [facility] Hct 31.5(L) 35.6 - 45.5 % [facility] Plt 348 150 - 400 K/cumm [facility] MPV 9.2 9.1 - 12.3 fL [facility] RBC 3.03(L) 3.90 - 5.20 M/cumm [facility] MCV 104.0(H) 81.3 - 96.4 fL [facility] MCH 32.7 27.1 - 33.3 pg [facility] MCHC 31.4(L) 32.3 - 35.7 g/dL [facility] RDW CV 14.6 11.1 - 14.9 % [facility] RDW SD 55.5(H) 35.7 - 48.1 fL [facility] NRBC abs 0.00 0.00 - 0.01 K/cumm [facility] Blood 04/02/2024 4:07 PM BEDSPREAD CUTTER 04/02/2024 4:11 PM BEDSPREAD CUTTER us Bing French MD LAB BLOOD ORDERABLES F inal Result [facility] [address] [facility] [place] [address] * (ABNORMAL) Comprehensive metabolic panel (04/02/2024 4:07 PM BEDSPREAD CUTTER) Sodium 136 135 - 145 mmol/L Potassium, pl 3.9 3.3 - 4.9 mmol/L [facility] Chloride 101 97 - 110 mmol/L [facility] CO2 22 22 - 32 mmol/L [facility] Anion gap 13 2 - 15 mmol/L [facility] BUN 25 6 - 25 mg/dL [facility] Creatinine 0.83 0.60 - 1.10 mg/dL [facility] Glucose 127 70 - 199 mg/dL [facility] Comment: Interpretive Data Fasting glucose >/= 126 mg/dl is diagnostic for diabetes. Fasting is defined as no caloric intake for at least 8 hours. Fasting glucose between 100 mg/dl to 125 mg/dl is diagnostic of prediabetes. In a patient with classic symptoms of hyperglycemia or hyperglycemic crisis, a random glucose >/= 200 mg/dl is diagnostic for diabetes. In the absence of unequivocal hyperglycemia, results should be confirmed by repeat testing. The classification and Diagnosis of Diabetes Diabetes Care 202; 46: S19-S40. Current interpretive data was last revised 2022. Calcium 9.4 8.5 - 10.3 mg/dL [facility] Bilirubin, total 0.4 0.1 - 1.2 mg/dL [facility] Protein, pl 7.7 6.5 - 8.5 g/dL [facility] Albumin 3.2(L) 3.5 - 5.0 g/dL [facility] Alk phos 342(H) 40 - 130 Units/L [facility] ALT 20 7 - 45 Units/L [facility] AST 29 10 - 45 Units/L [facility] Blood 04/02/2024 4:07 PM BEDSPREAD CUTTER 04/02/2024 4:11 PM BEDSPREAD CUTTER us Bing French MD LAB BLOOD ORDERABLES F inal Result [place] [address] [facility] Department [place] [address] * XR Shoulder Right 2 or More Views (04/01/2024 9:46 AM BEDSPREAD CUTTER) Anatomical Region Laterality Modality Upper Extremities, Shoulder Right Comp uted Radiography 04/01/2024 10:1 1 AM BEDSPREAD CUTTER Impressions 04/01/2024 1:03 PM BEDSPREAD CUTTER 1. 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 Dictated by: Homero Dwyer MD PHD The radiology attending physician has personally reviewed this study, and had reviewed and/or edited this written report and agrees with it. Electronically signed by: Mychal Griffin M.D. Narrative 04/01/2024 1:03 PM BEDSPREAD CUTTER EXAMINATION: XR SHOULDER RIGHT 2 OR MORE VIEWS HISTORY: Right shoulder arthroplasty. FINDINGS: 4 exposures of the right shoulder compared to 03/03/2024. Unchanged reverse right total shoulder arthroplasty in near anatomic position with no periprosthetic lucency or acute fracture. Mild to moderate acromioclavicular joint osteoarthritis. Procedure Note Mychal Tirado MD - 04/01/2024 EXAMINATION: XR SHOULDER RIGHT 2 OR MORE VIEWS HISTORY: Right shoulder arthroplasty. FINDINGS: 4 exposures of the right shoulder compared to 03/03/2024. Unchanged reverse right total shoulder arthroplasty in near anatomic position with no periprosthetic lucency or acute fracture. Mild to moderate acromioclavicular joint osteoarthritis. IMPRESSION: 1. 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 Dictated by: Homero Dwyer MD PHD The radiology attending physician has personally reviewed this study, and had reviewed and/or edited this written report and agrees with it. Electronically signed by: Mychal Griffin M.D. us Krysten Cohn MD IMG XR PROCEDURES Fin al Result * Glucose, random (Outreach) (03/27/2024 2:09 PM BEDSPREAD CUTTER) Glucose 141 70 - 199 mg/dL Comment: Interpretive Data Fasting glucose >/= 126 mg/dl is diagnostic for diabetes. Fasting is defined as no caloric intake for at least 8 hours. Fasting glucose between 100 mg/dl to 125 mg/dl is diagnostic of prediabetes. In a patient with classic symptoms of hyperglycemia or hyperglycemic crisis, a random glucose >/= 200 mg/dl is diagnostic for diabetes. In the absence of unequivocal hyperglycemia, results should be confirmed by repeat testing. The classification and Diagnosis of Diabetes Diabetes Care 2021; 46: S19-S40. Current interpretive data was last revised 2022. Blood 03/27/2024 2:09 PM BEDSPREAD CUTTER 03/27/2024 7:01 PM BEDSPREAD CUTTER us Ericka Glass MD LAB BLOOD ORDERABLES Final Result Performing Organization Address City/State/ZIP Co va Phone Number [facility] [place] [address] * eGFR (03/27/2024 2:09 PM BEDSPREAD CUTTER) eGFR 83 >=60 mL/min/1. 73 m2 Comment: Interpretive Data Reference Interval Normal >/= 90 mL/min/1.73m2 Mildly decreased* 60 - 89 mL/min/1.73m2 Mildly to moderately decreased 45 - 59 mL/min/1.73m2 Moderately to severely decreased 30 - 44 mL/min/1.73m2 Severely decreased 15 - 29 mL/min/1.73m2 Kidney Failure < 15 mL/min/1.73m2 *Relative to young adult level Estimated glomerular filtration rate is determined by the 2020 CKD-EPI equation recommended by the National Kidney Foundation (A Unifying Approach to GFR Estimation: Recommendations of the NKF-ASK Task Force on Reassessing the Inclusion of Race in Diagnosing Kidney Disease, JASN 2020). The CKD-EPI equation should not be used for patients with unstable renal function and has not been validated in children and those over 70. Current interpretive data was last reviewed 2021. Blood 03/27/2024 2:09 PM BEDSPREAD CUTTER 03/27/2024 7:14 PM BEDSPREAD CUTTER us Ericka Glass MD LAB BLOOD ORDERABLES Final Result [facility] [address] [facility] Department [place] [address] * (ABNORMAL) Differential, auto (03/27/2024 2:09 PM BEDSPREAD CUTTER) Pathologist [facility] Neutrophil abs 13.1(H) 1.5 - 6.5 K/cumm Imm gran abs 0.3(H) 0.0 - 0.1 K/cumm [facility] Lymphocyte abs 1.5 0.8 - 3.3 K/cumm [facility] Monocyte abs 0.9(H) 0.2 - 0.8 K/cumm [facility] Eosinophil abs 0.0 0.0 - 0.5 K/cumm [facility] Basophil abs 0.0 0.0 - 0.1 K/cumm [facility] Neutrophil pct 82.9 % [facility] Comment: Interpretive Data Percent cell count reference ranges are not reported, since discordance with absolute values may lead to misinterpretation of CBC data. Current Interpretive Data was last revised on 2017. Imm gran pct 1.6 % [facility] Comment: Interpretive Data Percent cell count reference ranges are not reported, since discordance with absolute values may lead to misinterpretation of CBC data. Current Interpretive Data was last revised on 2017. Lymphocyte pct 9.3 % [facility] Comment: Interpretive Data Percent cell count reference ranges are not reported, since discordance with absolute values may lead to misinterpretation of CBC data. Current Interpretive Data was last revised on 2017. Monocyte pct 5.8 % [facility] Comment: Interpretive Data Percent cell count reference ranges are not reported, since discordance with absolute values may lead to misinterpretation of CBC data. Current Interpretive Data was last revised on 2017. Eosinophil pct 0.2 % [facility] Comment: Interpretive Data Percent cell count reference ranges are not reported, since discordance with absolute values may lead to misinterpretation of CBC data. Current Interpretive Data was last revised on 2017. Basophil pct 0.2 % [facility] Comment: Interpretive Data Percent cell count reference ranges are not reported, since discordance with absolute values may lead to misinterpretation of CBC data. Current Interpretive Data was last revised on 2017. Blood 03/27/2024 2:09 PM BEDSPREAD CUTTER 03/27/2024 7:01 PM BEDSPREAD CUTTER Ericka Glass MD LAB BLOOD ORDERABLES Final Result [facility] [place] [address] * (ABNORMAL) Comprehensive metabolic panel, without glucose (Outreach) (03/27/2024 2:09 PM BEDSPREAD CUTTER) Sodium 136 135 - 145 mmol/L Potassium, pl 3.4 3.3 - 4.9 mmol/L [facility] Chloride 95(L) 97 - 110 mmol/L [facility] CO2 25 22 - 32 mmol/L [facility] Anion gap 16(H) 2 - 15 mmol/L [facility] BUN 22 6 - 25 mg/dL [facility] Creatinine 0.83 0.60 - 1.10 mg/dL [facility] Calcium 8.6 8.5 - 10.3 mg/dL [facility] Protein, pl 7.3 6.5 - 8.5 g/dL [facility] Albumin 3.3(L) 3.5 - 5.0 g/dL [facility] Bilirubin, total 0.8 0.1 - 1.2 mg/dL [facility] Alk phos 257(H) 40 - 130 Units/L [facility] AST 53(H) 10 - 45 Units/L [facility] ALT 29 7 - 45 Units/L [facility] Blood 03/27/2024 2:09 PM BEDSPREAD CUTTER 03/27/2024 7:01 PM BEDSPREAD CUTTER Ericka Glass MD LAB BLOOD ORDERABLES Final Result [facility] [place] [address] * (ABNORMAL) CBC with auto differential (03/27/2024 2:09 PM BEDSPREAD CUTTER) WBC 15.8(H) 3.8 - 9.9 K/cumm Hgb 11.0(L) 11.9 - 15.5 g/dL [facility] Hct 35.4(L) 35.6 - 45.5 % [facility] Plt 305 150 - 400 K/cumm [facility] MPV 10.4 9.1 - 12.3 fL [facility] RBC 3.36(L) 3.90 - 5.20 M/cumm [facility] MCV 105.4(H) 81.3 - 96.4 fL [facility] MCH 32.7 27.1 - 33.3 pg [facility] MCHC 31.1(L) 32.3 - 35.7 g/dL [facility] RDW CV 14.7 11.1 - 14.9 % [facility] RDW SD 56.8(H) 35.7 - 48.1 fL [facility] NRBC abs 0.02(H) 0.00 - 0.01 K/cumm [facility] Blood 03/27/2024 2:09 PM BEDSPREAD CUTTER 03/27/2024 7:01 PM BEDSPREAD CUTTER Ericka Glass MD LAB BLOOD ORDERABLES Final Result [facility] [place] [address] * (ABNORMAL) Erythrocyte sedimentation rate (03/27/2024 2:09 PM BEDSPREAD CUTTER) [facility] Erythrocyte sedimentation rate 48(H) 1 - 30 mm/hr Blood 03/27/2024 2:09 PM BEDSPREAD CUTTER 03/27/2024 7:01 PM BEDSPREAD CUTTER Ericka Glass MD LAB BLOOD ORDERABLES Final Result Performing Organization Address City/[facility] [place] [address] * (ABNORMAL) CRP (acute phase) (03/27/2024 2:09 PM BEDSPREAD CUTTER) [facility] CRP 312.4(H) <=10.0 mg/L Comment:Repeated on Dilution Blood 03/27/2024 2:09 PM BEDSPREAD CUTTER 03/27/2024 7:01 PM BEDSPREAD CUTTER Ericka Glass MD LAB BLOOD ORDERABLES Final Result Performing Organization Address City/[facility] [place] [address] * POCT glucose (03/12/2024 7:49 PM BEDSPREAD CUTTER) [facility] Glucose, POC 109 70 - 199 mg/dL Blood 03/12/2024 7:49 PM BEDSPREAD CUTTER 03/12/2024 7:49 PM BEDSPREAD CUTTER Krysten Cohn MD LAB POCT ORDERABLES - DEVICE Final Result Performing Organization Address [facility] [place] [address] * POCT glucose (03/12/2024 4:39 PM BEDSPREAD CUTTER) Glucose, POC 78 70 - 199 mg/dL Blood 03/12/2024 4:39 PM BEDSPREAD CUTTER 03/12/2024 4:39 PM BEDSPREAD CUTTER us Krysten Cohn MD LAB POCT ORDERABLES - DEVICE Final Result Performing Organization Address [facility] de Phone Number [facility] [place] [address] * POCT glucose (03/12/2024 11:41 AM BEDSPREAD CUTTER) Glucose, POC 98 70 - 199 mg/dL Blood 03/12/2024 11:4 1 AM BEDSPREAD CUTTER 03/12/2024 11:41 AM BEDSPREAD CUTTER us Krysten Cohn MD LAB POCT ORDERABLES - DEVICE Final Result Performing Organization Address [facility] de Phone Number [facility] [place] [address] * POCT glucose (03/12/2024 7:48 AM BEDSPREAD CUTTER) Pathologist [facility] Glucose, POC 92 70 - 199 mg/dL Blood 03/12/2024 7:48 AM BEDSPREAD CUTTER 03/12/2024 7:48 AM BEDSPREAD CUTTER us Krysten Cohn MD LAB POCT ORDERABLES - DEVICE Final Result Performing Organization Address [facility] de Phone Number [facility] [place] [address] * eGFR (03/11/2024 9:56 PM BEDSPREAD CUTTER) eGFR >90 >=60 mL/min/1. 73 m2 Comment: Interpretive Data Reference Interval Normal >/= 90 mL/min/1.73m2 Mildly decreased* 60 - 89 mL/min/1.73m2 Mildly to moderately decreased 45 - 59 mL/min/1.73m2 Moderately to severely decreased 30 - 44 mL/min/1.73m2 Severely decreased 15 - 29 mL/min/1.73m2 Kidney Failure < 15 mL/min/1.73m2 *Relative to young adult level Estimated glomerular filtration rate is determined by the 2020 CKD-EPI equation recommended by the National Kidney Foundation (A Unifying Approach to GFR Estimation: Recommendations of the NKF-ASK Task Force on Reassessing the Inclusion of Race in Diagnosing Kidney Disease, JASN 202). The CKD-EPI equation should not be used for patients with unstable renal function and has not been validated in children and those over 70. Current interpretive data was last reviewed 2021. Blood 03/11/2024 9:56 PM BEDSPREAD CUTTER 03/11/2024 10:31 PM BEDSPREAD CUTTER us Krysten Cohn MD LAB BLOOD ORDERABLES Final Result [facility] [place] [address] * Differential, auto (03/11/2024 9:56 PM BEDSPREAD CUTTER) Neutrophil abs 3.2 1.5 - 6.5 K/cumm Imm gran abs 0.0 0.0 - 0.1 K/cumm [facility] Lymphocyte abs 1.6 0.8 - 3.3 K/cumm [facility] [facility] Monocyte abs 0.7 0.2 - 0.8 K/cumm [facility] Eosinophil abs 0.1 0.0 - 0.5 K/cumm [facility] Basophil abs 0.1 0.0 - 0.1 K/cumm [facility] Neutrophil pct 55.9 % [facility] Comment: Interpretive Data Percent cell count reference ranges are not reported, since discordance with absolute values may lead to misinterpretation of CBC data. Current Interpretive Data was last revised on 2017. Imm gran pct 0.7 % [facility] Comment: Interpretive Data Percent cell count reference ranges are not reported, since discordance with absolute values may lead to misinterpretation of CBC data. Current Interpretive Data was last revised on 2017. Lymphocyte pct 28.2 % [facility] Comment: Interpretive Data Percent cell count reference ranges are not reported, since discordance with absolute values may lead to misinterpretation of CBC data. Current Interpretive Data was last revised on 2017. Monocyte pct 12.3 % [facility] Comment: Interpretive Data Percent cell count reference ranges are not reported, since discordance with absolute values may lead to misinterpretation of CBC data. Current Interpretive Data was last revised on 2017. Eosinophil pct 1.9 % [facility] Comment: Interpretive Data Percent cell count reference ranges are not reported, since discordance with absolute values may lead to misinterpretation of CBC data. Current Interpretive Data was last revised on 2017. Basophil pct 1.0 % [facility] Comment: Interpretive Data Percent cell count reference ranges are not reported, since discordance with absolute values may lead to misinterpretation of CBC data. Current Interpretive Data was last revised on 2017. Blood 03/11/2024 9:56 PM BEDSPREAD CUTTER 03/11/2024 10:33 PM BEDSPREAD CUTTER Krysten Cohn MD LAB BLOOD ORDERABLES Final Result [facility] [place] [address] * (ABNORMAL) CBC with auto differential (03/11/2024 9:56 PM BEDSPREAD CUTTER) WBC 5.8 3.8 - 9.9 K/cumm Hgb 8.7(L) 11.9 - 15.5 g/dL [facility] Hct 27.3(L) 35.6 - 45.5 % [facility] Plt 392 150 - 400 K/cumm [facility] MPV 9.9 9.1 - 12.3 fL [facility] RBC 2.55(L) 3.90 - 5.20 M/cumm [facility] MCV 107.1(H) 81.3 - 96.4 fL [facility] MCH 34.1(H) 27.1 - 33.3 pg [facility] MCHC 31.9(L) 32.3 - 35.7 g/dL [facility] RDW CV 15.7(H) 11.1 - 14.9 % [facility] RDW SD 61.0(H) 35.7 - 48.1 fL [facility] NRBC abs 0.00 0.00 - 0.01 K/cumm [facility] Blood 03/11/2024 9:56 PM BEDSPREAD CUTTER 03/11/2024 10:33 PM BEDSPREAD CUTTER Krysten Cohn MD LAB BLOOD ORDERABLES Final Result Performing Organization Address City/[facility] Co de Phone Number [facility] [place] [address] * Phosphorus (03/11/2024 9:56 PM BEDSPREAD CUTTER) Pathologist [facility] Phosphorus, pl 3.1 2.3 - 4.5 mg/dL Blood 03/11/2024 9:56 PM BEDSPREAD CUTTER 03/11/2024 10:31 PM BEDSPREAD CUTTER us Krysten Cohn MD LAB BLOOD ORDERABLES Final Result Performing Organization Address [facility] Co de Phone Number [facility] [place] [address] * (ABNORMAL) Magnesium (03/11/2024 9:56 PM BEDSPREAD CUTTER) [facility] Magnesium 1.3(L) 1.4 - 2.5 mg/dL Blood 03/11/2024 9:56 PM BEDSPREAD CUTTER 03/11/2024 10:31 PM BEDSPREAD CUTTER Krysten Cohn MD LAB BLOOD ORDERABLES Final Result Performing Organization Address [facility] Co de Phone Number [facility] [place] [address] * (ABNORMAL) Comprehensive metabolic panel (03/11/2024 9:56 PM BEDSPREAD CUTTER) Pathologist [facility] Sodium 140 135 - 145 mmol/L Potassium, pl 3.1(L) 3.3 - 4.9 mmol/L [facility] Chloride 100 97 - 110 mmol/L [facility] CO2 29 22 - 32 mmol/L [facility] Anion gap 11 2 - 15 mmol/L [facility] BUN 10 6 - 25 mg/dL [facility] Creatinine 0.64 0.60 - 1.10 mg/dL [facility] Glucose 96 70 - 199 mg/dL [facility] Comment: Interpretive Data Fasting glucose >/= 126 mg/dl is diagnostic for diabetes. Fasting is defined as no caloric intake for at least 8 hours. Fasting glucose between 100 mg/dl to 125 mg/dl is diagnostic of prediabetes. In a patient with classic symptoms of hyperglycemia or hyperglycemic crisis, a random glucose >/= 200 mg/dl is diagnostic for diabetes. In the absence of unequivocal hyperglycemia, results should be confirmed by repeat testing. The classification and Diagnosis of Diabetes Diabetes Care 2021; 46: S19-S40. Current interpretive data was last revised 2022. Calcium 7.8(L) 8.5 - 10.3 mg/dL [facility] Bilirubin, total 0.5 0.1 - 1.2 mg/dL [facility] Protein, pl 6.1(L) 6.5 - 8.5 g/dL [facility] Albumin 3.0(L) 3.5 - 5.0 g/dL [facility] Alk phos 283(H) 40 - 130 Units/L [facility] ALT 11 7 - 45 Units/L [facility] AST 38 10 - 45 Units/L [facility] Blood 03/11/2024 9:56 PM BEDSPREAD CUTTER 03/11/2024 10:31 PM BEDSPREAD CUTTER us Krysten Cohn MD LAB BLOOD ORDERABLES Final Result [facility] [place] [address] * POCT glucose (03/11/2024 7:43 PM BEDSPREAD CUTTER) Glucose, POC 106 70 - 199 mg/dL Blood 03/11/2024 7:43 PM BEDSPREAD CUTTER 03/11/2024 7:43 PM BEDSPREAD CUTTER us Krysten Cohn MD LAB POCT ORDERABLES - DEVICE Final Result Performing Organization Address City/[facility] Co de Phone Number [facility] [address] * POCT glucose (03/11/2024 5:07 PM BEDSPREAD CUTTER) Glucose, POC 109 70 - 199 mg/dL Blood 03/11/2024 5:07 PM BEDSPREAD CUTTER 03/11/2024 5:07 PM BEDSPREAD CUTTER us Krysten Cohn MD LAB POCT ORDERABLES - DEVICE Final Result Performing Organization Address [facility] Co de Phone Number [facility] [place] [address] * POCT glucose (03/11/2024 11:52 AM BEDSPREAD CUTTER) Glucose, POC 102 70 - 199 mg/dL Blood 03/11/2024 11:5 2 AM BEDSPREAD CUTTER 03/11/2024 11:52 AM BEDSPREAD CUTTER us Krysten Cohn MD LAB POCT ORDERABLES - DEVICE Final Result Performing Organization Address [facility] Co de Phone Number [facility] [place] [address] * POCT glucose (03/11/2024 7:40 AM BEDSPREAD CUTTER) Glucose, POC 110 70 - 199 mg/dL Blood 03/11/2024 7:40 AM BEDSPREAD CUTTER 03/11/2024 7:40 AM BEDSPREAD CUTTER us Krysten Cohn MD LAB POCT ORDERABLES - DEVICE Final Result Performing Organization Address City/[facility]/ZIP Co de Phone Number [facility] [place] [address] * POCT glucose (03/10/2024 7:47 PM BEDSPREAD CUTTER) Glucose, POC 127 70 - 199 mg/dL Blood 03/10/2024 7:47 PM BEDSPREAD CUTTER 03/10/2024 7:47 PM BEDSPREAD CUTTER us Krysten Cohn MD LAB POCT ORDERABLES - DEVICE Final Result [facility] [place] [address] * POCT glucose (03/10/2024 5:07 PM BEDSPREAD CUTTER) Glucose, POC 93 70 - 199 mg/dL Blood 03/10/2024 5:07 PM BEDSPREAD CUTTER 03/10/2024 5:07 PM BEDSPREAD CUTTER us Krysten Cohn MD LAB POCT ORDERABLES - DEVICE Final Result Performing Organization Address City/[facility]/[place] [address] * POCT glucose (03/10/2024 11:24 AM BEDSPREAD CUTTER) Glucose, POC 93 70 - 199 mg/dL Blood 03/10/2024 11:2 4 AM BEDSPREAD CUTTER 03/10/2024 11:24 AM BEDSPREAD CUTTER us Krysten Cohn MD LAB POCT ORDERABLES - DEVICE Final Result Performing Organization Address City/[facility]/[place] [address] * POCT glucose (03/10/2024 7:43 AM BEDSPREAD CUTTER) Glucose, POC 105 70 - 199 mg/dL Blood 03/10/2024 7:43 AM BEDSPREAD CUTTER 03/10/2024 7:43 AM BEDSPREAD CUTTER us Krysten Cohn MD LAB POCT ORDERABLES - DEVICE Final Result Performing Organization Address [facility] Co de Phone Number [facility] [place] [address] * eGFR (03/09/2024 8:42 PM BEDSPREAD CUTTER) Pathologist [facility] eGFR >90 >=60 mL/min/1. 73 m2 Comment: Interpretive Data Reference Interval Normal >/= 90 mL/min/1.73m2 Mildly decreased* 60 - 89 mL/min/1.73m2 Mildly to moderately decreased 45 - 59 mL/min/1.73m2 Moderately to severely decreased 30 - 44 mL/min/1.73m2 Severely decreased 15 - 29 mL/min/1.73m2 Kidney Failure < 15 mL/min/1.73m2 *Relative to young adult level Estimated glomerular filtration rate is determined by the 2020 CKD-EPI equation recommended by the National Kidney Foundation (A Unifying Approach to GFR Estimation: Recommendations of the NKF-ASK Task Force on Reassessing the Inclusion of Race in Diagnosing Kidney Disease, JASN 2020). The CKD-EPI equation should not be used for patients with unstable renal function and has not been validated in children and those over 70. Current interpretive data was last reviewed 2021. Blood 03/09/2024 8:42 PM BEDSPREAD CUTTER 03/09/2024 8:56 PM BEDSPREAD CUTTER us Krysten Cohn MD LAB BLOOD ORDERABLES Final Result Performing Organization Address [facility] Co de Phone Number MADELEINE DEY [facility] Department [place] [address] * (ABNORMAL) Differential, auto (03/09/2024 8:42 PM BEDSPREAD CUTTER) Pathologist [facility] Neutrophil abs 5.2 1.5 - 6.5 K/cumm Imm gran abs 0.1 0.0 - 0.1 K/cumm [facility] Lymphocyte abs 1.7 0.8 - 3.3 K/cumm [facility] Monocyte abs 0.9(H) 0.2 - 0.8 K/cumm [facility] Eosinophil abs 0.1 0.0 - 0.5 K/cumm [facility] Basophil abs 0.1 0.0 - 0.1 K/cumm [facility] Neutrophil pct 65.0 % [facility] Comment: Interpretive Data Percent cell count reference ranges are not reported, since discordance with absolute values may lead to misinterpretation of CBC data. Current Interpretive Data was last revised on 2017. Imm gran pct 0.7 % [facility] Comment: Interpretive Data Percent cell count reference ranges are not reported, since discordance with absolute values may lead to misinterpretation of CBC data. Current Interpretive Data was last revised on 2017. Lymphocyte pct 21.0 % [facility] Comment: Interpretive Data Percent cell count reference ranges are not reported, since discordance with absolute values may lead to misinterpretation of CBC data. Current Interpretive Data was last revised on 2017. Monocyte pct 11.2 % [facility] Comment: Interpretive Data Percent cell count reference ranges are not reported, since discordance with absolute values may lead to misinterpretation of CBC data. Current Interpretive Data was last revised on 2017. Eosinophil pct 1.2 % [facility] Comment: Interpretive Data Percent cell count reference ranges are not reported, since discordance with absolute values may lead to misinterpretation of CBC data. Current Interpretive Data was last revised on 2017. Basophil pct 0.9 % [facility] Comment: Interpretive Data Percent cell count reference ranges are not reported, since discordance with absolute values may lead to misinterpretation of CBC data. Current Interpretive Data was last revised on 2017. Blood 03/09/2024 8:42 PM BEDSPREAD CUTTER 03/09/2024 8:56 PM BEDSPREAD CUTTER us Krysten Cohn MD LAB BLOOD ORDERABLES Final Result [facility] [place] [address] * (ABNORMAL) CBC with auto differential (03/09/2024 8:42 PM BEDSPREAD CUTTER) [facility] WBC 8.0 3.8 - 9.9 K/cumm Hgb 8.5(L) 11.9 - 15.5 g/dL [facility] Hct 26.9(L) 35.6 - 45.5 % [facility] Plt 399 150 - 400 K/cumm [facility] MPV 10.1 9.1 - 12.3 fL [facility] RBC 2.55(L) 3.90 - 5.20 M/cumm [facility] MCV 105.5(H) 81.3 - 96.4 fL [facility] MCH 33.3 27.1 - 33.3 pg [facility] MCHC 31.6(L) 32.3 - 35.7 g/dL [facility] RDW CV 16.0(H) 11.1 - 14.9 % [facility] RDW SD 61.0(H) 35.7 - 48.1 fL [facility] NRBC abs 0.00 0.00 - 0.01 K/cumm [facility] Blood 03/09/2024 8:42 PM BEDSPREAD CUTTER 03/09/2024 8:56 PM BEDSPREAD CUTTER Krysten Cohn MD LAB BLOOD ORDERABLES Final Result Performing Organization Address City/[facility] Co de Phone Number [facility] [place] [address] * Phosphorus (03/09/2024 8:42 PM BEDSPREAD CUTTER) [facility] Phosphorus, pl 2.6 2.3 - 4.5 mg/dL Blood 03/09/2024 8:42 PM BEDSPREAD CUTTER 03/09/2024 8:56 PM BEDSPREAD CUTTER Krysten Cohn MD LAB BLOOD ORDERABLES Final Result Performing Organization Address [facility] Co de Phone Number [facility] [place] [address] * (ABNORMAL) Magnesium (03/09/2024 8:42 PM BEDSPREAD CUTTER) Magnesium 1.3(L) 1.4 - 2.5 mg/dL Blood 03/09/2024 8:42 PM BEDSPREAD CUTTER 03/09/2024 8:56 PM BEDSPREAD CUTTER us Krysten Cohn MD LAB BLOOD ORDERABLES Final Result [facility] [place] [address] * (ABNORMAL) Comprehensive metabolic panel (03/09/2024 8:42 PM BEDSPREAD CUTTER) Pathologist [facility] Sodium 138 135 - 145 mmol/L Potassium, pl 3.2(L) 3.3 - 4.9 mmol/L [facility] Chloride 99 97 - 110 mmol/L [facility] CO2 29 22 - 32 mmol/L [facility] Anion gap 10 2 - 15 mmol/L [facility] BUN 9 6 - 25 mg/dL [facility] Creatinine 0.62 0.60 - 1.10 mg/dL [facility] Glucose 102 70 - 199 mg/dL [facility] Comment: Interpretive Data Fasting glucose >/= 126 mg/dl is diagnostic for diabetes. Fasting is defined as no caloric intake for at least 8 hours. Fasting glucose between 100 mg/dl to 125 mg/dl is diagnostic of prediabetes. In a patient with classic symptoms of hyperglycemia or hyperglycemic crisis, a random glucose >/= 200 mg/dl is diagnostic for diabetes. In the absence of unequivocal hyperglycemia, results should be confirmed by repeat testing. The classification and Diagnosis of Diabetes Diabetes Care 2021; 46: S19-S40. Current interpretive data was last revised 2022. Calcium 8.0(L) 8.5 - 10.3 mg/dL [facility] Bilirubin, total 0.6 0.1 - 1.2 mg/dL [facility] Protein, pl 6.1(L) 6.5 - 8.5 g/dL [facility] Albumin 3.0(L) 3.5 - 5.0 g/dL [facility] Alk phos 213(H) 40 - 130 Units/L [facility] ALT 10 7 - 45 Units/L [facility] AST 34 10 - 45 Units/L [facility] Blood 03/09/2024 8:42 PM BEDSPREAD CUTTER 03/09/2024 8:56 PM BEDSPREAD CUTTER Krysten Cohn MD LAB BLOOD ORDERABLES Final Result Performing Organization Address [facility] de Phone Number [facility] [place] [address] * POCT glucose (03/09/2024 7:31 PM BEDSPREAD CUTTER) Glucose, POC 119 70 - 199 mg/dL Blood 03/09/2024 7:31 PM BEDSPREAD CUTTER 03/09/2024 7:31 PM BEDSPREAD CUTTER us Krysten Cohn MD LAB POCT ORDERABLES - DEVICE Final Result Performing Organization Address [facility] de Phone Number [facility] [place] [address] * POCT glucose (03/09/2024 4:39 PM BEDSPREAD CUTTER) Glucose, POC 105 70 - 199 mg/dL Blood 03/09/2024 4:39 PM BEDSPREAD CUTTER 03/09/2024 4:39 PM BEDSPREAD CUTTER us Krysten Cohn MD LAB POCT ORDERABLES - DEVICE Final Result Performing Organization Address [facility] de Phone Number [facility] [place] [address] * POCT glucose (03/09/2024 11:39 AM BEDSPREAD CUTTER) Glucose, POC 121 70 - 199 mg/dL Blood 03/09/2024 11:3 9 AM BEDSPREAD CUTTER 03/09/2024 11:39 AM BEDSPREAD CUTTER us Krysten Cohn MD LAB POCT ORDERABLES - DEVICE Final Result Performing Organization Address City/[facility] Co de Phone Number [facility] [place] [address] * POCT glucose (03/09/2024 8:27 AM BEDSPREAD CUTTER) Glucose, POC 123 70 - 199 mg/dL Blood 03/09/2024 8:27 AM BEDSPREAD CUTTER 03/09/2024 8:27 AM BEDSPREAD CUTTER Krysten Cohn MD LAB POCT ORDERABLES - DEVICE Final Result Performing Organization Address [facility] de Phone Number MADELEINE [facility] [place] [address] * eGFR (03/08/2024 9:09 PM BEDSPREAD CUTTER) eGFR >90 >=60 mL/min/1. 73 m2 Comment: Interpretive Data Reference Interval Normal >/= 90 mL/min/1.73m2 Mildly decreased* 60 - 89 mL/min/1.73m2 Mildly to moderately decreased 45 - 59 mL/min/1.73m2 Moderately to severely decreased 30 - 44 mL/min/1.73m2 Severely decreased 15 - 29 mL/min/1.73m2 Kidney Failure < 15 mL/min/1.73m2 *Relative to young adult level Estimated glomerular filtration rate is determined by the 2020 CKD-EPI equation recommended by the National Kidney Foundation (A Unifying Approach to GFR Estimation: Recommendations of the NKF-ASK Task Force on Reassessing the Inclusion of Race in Diagnosing Kidney Disease, JASN 2020). The CKD-EPI equation should not be used for patients with unstable renal function and has not been validated in children and those over 70. Current interpretive data was last reviewed 2021. Blood 03/08/2024 9:09 PM BEDSPREAD CUTTER 03/08/2024 9:30 PM BEDSPREAD CUTTER us Krysten Cohn MD LAB BLOOD ORDERABLES Final Result Performing Organization Address City/[facility] Co de Phone Number [facility] [place] [address] * Phosphorus (03/08/2024 9:09 PM BEDSPREAD CUTTER) [facility] Phosphorus, pl 2.7 2.3 - 4.5 mg/dL Blood 03/08/2024 9:09 PM BEDSPREAD CUTTER 03/08/2024 9:30 PM BEDSPREAD CUTTER us Krysten Cohn MD LAB BLOOD ORDERABLES Final Result Performing Organization Address [facility] de Phone Number [facility] [place] [address] * (ABNORMAL) Magnesium (03/08/2024 9:09 PM BEDSPREAD CUTTER) [facility] Magnesium 1.2(L) 1.4 - 2.5 mg/dL Blood 03/08/2024 9:09 PM BEDSPREAD CUTTER 03/08/2024 9:30 PM BEDSPREAD CUTTER us Krysten Cohn MD LAB BLOOD ORDERABLES Final Result Performing Organization Address [facility] de Phone Number [facility] [place] [address] * (ABNORMAL) Comprehensive metabolic panel (03/08/2024 9:09 PM BEDSPREAD CUTTER) [facility] Sodium 138 135 - 145 mmol/L Potassium, pl 3.4 3.3 - 4.9 mmol/L [facility] Chloride 99 97 - 110 mmol/L [facility] CO2 27 22 - 32 mmol/L [facility] Anion gap 12 2 - 15 mmol/L [facility] BUN 11 6 - 25 mg/dL [facility] Creatinine 0.62 0.60 - 1.10 mg/dL [facility] Glucose 93 70 - 199 mg/dL [facility] Comment: Interpretive Data Fasting glucose >/= 126 mg/dl is diagnostic for diabetes. Fasting is defined as no caloric intake for at least 8 hours. Fasting glucose between 100 mg/dl to 125 mg/dl is diagnostic of prediabetes. In a patient with classic symptoms of hyperglycemia or hyperglycemic crisis, a random glucose >/= 200 mg/dl is diagnostic for diabetes. In the absence of unequivocal hyperglycemia, results should be confirmed by repeat testing. The classification and Diagnosis of Diabetes Diabetes Care 2021; 46: S19-S40. Current interpretive data was last revised 2022. Calcium 7.9(L) 8.5 - 10.3 mg/dL [facility] Bilirubin, total 0.6 0.1 - 1.2 mg/dL [facility] Protein, pl 6.2(L) 6.5 - 8.5 g/dL [facility] Albumin 2.9(L) 3.5 - 5.0 g/dL [facility] Alk phos 226(H) 40 - 130 Units/L [facility] ALT 13 7 - 45 Units/L [facility] AST 42 10 - 45 Units/L [facility] Blood 03/08/2024 9:09 PM BEDSPREAD CUTTER 03/08/2024 9:30 PM BEDSPREAD CUTTER us Krysten Cohn MD LAB BLOOD ORDERABLES Final Result Performing Organization Address City/[facility]/ZIP Co de Phone Number [facility] [place] [address] * POCT glucose (03/08/2024 7:40 PM BEDSPREAD CUTTER) Glucose, POC 103 70 - 199 mg/dL Blood 03/08/2024 7:40 PM BEDSPREAD CUTTER 03/08/2024 7:40 PM BEDSPREAD CUTTER us Krysten Cohn MD LAB POCT ORDERABLES - DEVICE Final Result Performing Organization Address City/[facility]/ZIP Co de Phone Number [facility] [place] [address] * POCT glucose (03/08/2024 5:03 PM BEDSPREAD CUTTER) Glucose, POC 81 70 - 199 mg/dL Blood 03/08/2024 5:03 PM BEDSPREAD CUTTER 03/08/2024 5:03 PM BEDSPREAD CUTTER us Krysten Cohn MD LAB POCT ORDERABLES - DEVICE Final Result Performing Organization Address [facility] Co de Phone Number [facility] [place] [address] * POCT glucose (03/08/2024 11:12 AM BEDSPREAD CUTTER) Glucose, POC 104 70 - 199 mg/dL Blood 03/08/2024 11:1 2 AM BEDSPREAD CUTTER 03/08/2024 11:12 AM BEDSPREAD CUTTER us Krysten Cohn MD LAB POCT ORDERABLES - DEVICE Final Result Performing Organization Address [facility] Co de Phone Number [facility] [place] [address] * POCT glucose (03/08/2024 8:18 AM BEDSPREAD CUTTER) Glucose, POC 103 70 - 199 mg/dL Blood 03/08/2024 8:18 AM BEDSPREAD CUTTER 03/08/2024 8:18 AM BEDSPREAD CUTTER us Krysten Conh MD LAB POCT ORDERABLES - DEVICE Final Result Performing Organization Address [facility] de Phone Number [facility] [place] [address] * eGFR (03/07/2024 10:22 PM BEDSPREAD CUTTER) eGFR >90 >=60 mL/min/1. 73 m2 Comment: Interpretive Data Reference Interval Normal >/= 90 mL/min/1.73m2 Mildly decreased* 60 - 89 mL/min/1.73m2 Mildly to moderately decreased 45 - 59 mL/min/1.73m2 Moderately to severely decreased 30 - 44 mL/min/1.73m2 Severely decreased 15 - 29 mL/min/1.73m2 Kidney Failure < 15 mL/min/1.73m2 *Relative to young adult level Estimated glomerular filtration rate is determined by the 2020 CKD-EPI equation recommended by the National Kidney Foundation (A Unifying Approach to GFR Estimation: Recommendations of the NKF-ASK Task Force on Reassessing the Inclusion of Race in Diagnosing Kidney Disease, JASN 202). The CKD-EPI equation should not be used for patients with unstable renal function and has not been validated in children and those over 70. Current interpretive data was last reviewed 2021. Blood 03/07/2024 10:2 2 PM BEDSPREAD CUTTER 03/07/2024 11:02 PM BEDSPREAD CUTTER us Krysten Cohn MD LAB BLOOD ORDERABLES Final Result [facility] [place] [address] * (ABNORMAL) Differential, auto (03/07/2024 10:22 PM BEDSPREAD CUTTER) Neutrophil abs 7.3(H) 1.5 - 6.5 K/cumm Imm gran abs 0.2(H) 0.0 - 0.1 K/cumm [facility] Lymphocyte abs 2.2 0.8 - 3.3 K/cumm [facility] Monocyte abs 1.1(H) 0.2 - 0.8 K/cumm [facility] Eosinophil abs 0.2 0.0 - 0.5 K/cumm [facility] Basophil abs 0.1 0.0 - 0.1 K/cumm [facility] Neutrophil pct 66.0 % [facility] Comment: Interpretive Data Percent cell count reference ranges are not reported, since discordance with absolute values may lead to misinterpretation of CBC data. Current Interpretive Data was last revised on 2017. Imm gran pct 2.0 % [facility] Comment: Interpretive Data Percent cell count reference ranges are not reported, since discordance with absolute values may lead to misinterpretation of CBC data. Current Interpretive Data was last revised on 2017. Lymphocyte pct 20.0 % [facility] Comment: Interpretive Data Percent cell count reference ranges are not reported, since discordance with absolute values may lead to misinterpretation of CBC data. Current Interpretive Data was last revised on 2017. Monocyte pct 9.6 % [facility] Comment: Interpretive Data Percent cell count reference ranges are not reported, since discordance with absolute values may lead to misinterpretation of CBC data. Current Interpretive Data was last revised on 2017. Eosinophil pct 1.4 % [facility] Comment: Interpretive Data Percent cell count reference ranges are not reported, since discordance with absolute values may lead to misinterpretation of CBC data. Current Interpretive Data was last revised on 2017. Basophil pct 1.0 % [facility] Comment: Interpretive Data Percent cell count reference ranges are not reported, since discordance with absolute values may lead to misinterpretation of CBC data. Current Interpretive Data was last revised on 2017. Blood 03/07/2024 10:2 2 PM BEDSPREAD CUTTER 03/07/2024 11:02 PM BEDSPREAD CUTTER us Krysten Cohn MD LAB BLOOD ORDERABLES Final Result [facility] [place] [address] * (ABNORMAL) CBC with auto differential (03/07/2024 10:22 PM BEDSPREAD CUTTER) WBC 11.1(H) 3.8 - 9.9 K/cumm Hgb 8.3(L) 11.9 - 15.5 g/dL [facility] Hct 25.8(L) 35.6 - 45.5 % [facility] Plt 335 150 - 400 K/cumm [facility] MPV 10.3 9.1 - 12.3 fL [facility] RBC 2.37(L) 3.90 - 5.20 M/cumm [facility] MCV 108.9(H) 81.3 - 96.4 fL [facility] MCH 35.0(H) 27.1 - 33.3 pg [facility] MCHC 32.2(L) 32.3 - 35.7 g/dL [facility] RDW CV 16.5(H) 11.1 - 14.9 % [facility] RDW SD 63.4(H) 35.7 - 48.1 fL [facility] NRBC abs 0.00 0.00 - 0.01 K/cumm [facility] Blood 03/07/2024 10:2 2 PM BEDSPREAD CUTTER 03/07/2024 11:02 PM BEDSPREAD CUTTER us Krysten Cohn MD LAB BLOOD ORDERABLES Final Result Performing Organization Address City/[facility]/ZIP Co de Phone Number [facility] [place] [address] * Phosphorus (03/07/2024 10:22 PM BEDSPREAD CUTTER) Phosphorus, pl 2.7 2.3 - 4.5 mg/dL Blood 03/07/2024 10:2 2 PM BEDSPREAD CUTTER 03/07/2024 11:02 PM BEDSPREAD CUTTER us Krysten Cohn MD LAB BLOOD ORDERABLES Final Result Performing Organization Address City/[facility] Co de Phone Number [facility] [place] [address] * Magnesium (03/07/2024 10:22 PM BEDSPREAD CUTTER) Magnesium 1.4 1.4 - 2.5 mg/dL Blood 03/07/2024 10:2 2 PM BEDSPREAD CUTTER 03/07/2024 11:02 PM BEDSPREAD CUTTER Krysten Cohn MD LAB BLOOD ORDERABLES Final Result Performing Organization Address City/[facility] Co de Phone Number [facility] [place] [address] * (ABNORMAL) Comprehensive metabolic panel (03/07/2024 10:22 PM BEDSPREAD CUTTER) Sodium 138 135 - 145 mmol/L Potassium, pl 3.3 3.3 - 4.9 mmol/L [facility] Chloride 101 97 - 110 mmol/L [facility] CO2 29 22 - 32 mmol/L [facility] Anion gap 8 2 - 15 mmol/L [facility] BUN 13 6 - 25 mg/dL [facility] Creatinine 0.70 0.60 - 1.10 mg/dL [facility] Glucose 93 70 - 199 mg/dL [facility] Comment: Interpretive Data Fasting glucose >/= 126 mg/dl is diagnostic for diabetes. Fasting is defined as no caloric intake for at least 8 hours. Fasting glucose between 100 mg/dl to 125 mg/dl is diagnostic of prediabetes. In a patient with classic symptoms of hyperglycemia or hyperglycemic crisis, a random glucose >/= 200 mg/dl is diagnostic for diabetes. In the absence of unequivocal hyperglycemia, results should be confirmed by repeat testing. The classification and Diagnosis of Diabetes Diabetes Care 2021; 46: S19-S40. Current interpretive data was last revised 2022. Calcium 7.7(L) 8.5 - 10.3 mg/dL [facility] Bilirubin, total 0.7 0.1 - 1.2 mg/dL [facility] Protein, pl 5.7(L) 6.5 - 8.5 g/dL [facility] Albumin 2.5(L) 3.5 - 5.0 g/dL [facility] Alk phos 216(H) 40 - 130 Units/L [facility] ALT 14 7 - 45 Units/L [facility] AST 37 10 - 45 Units/L [facility] Blood 03/07/2024 10:2 2 PM BEDSPREAD CUTTER 03/07/2024 11:02 PM BEDSPREAD CUTTER us Krysten Cohn MD LAB BLOOD ORDERABLES Final Result [facility] [place] [address] * POCT glucose (03/07/2024 7:39 PM BEDSPREAD CUTTER) [facility] Signature Glucose, POC 96 70 - 199 mg/dL Blood 03/07/2024 7:39 PM BEDSPREAD CUTTER 03/07/2024 7:39 PM BEDSPREAD CUTTER us Krysten Cohn MD LAB POCT ORDERABLES - DEVICE Final Result Performing Organization Address [facility] Co de Phone Number [facility] [place] [address] * POCT glucose (03/07/2024 5:48 PM BEDSPREAD CUTTER) Glucose, POC 81 70 - 199 mg/dL Blood 03/07/2024 5:48 PM BEDSPREAD CUTTER 03/07/2024 5:48 PM BEDSPREAD CUTTER us Krysten Cohn MD LAB POCT ORDERABLES - DEVICE Final Result Performing Organization Address [facility] de Phone Number [facility] [place] [address] * POCT glucose (03/07/2024 11:28 AM BEDSPREAD CUTTER) Glucose, POC 126 70 - 199 mg/dL Blood 03/07/2024 11:2 8 AM BEDSPREAD CUTTER 03/07/2024 11:28 AM BEDSPREAD CUTTER us Krysten Cohn MD LAB POCT ORDERABLES - DEVICE Final Result Performing Organization Address [facility] de Phone Number [facility] [place] [address] * POCT glucose (03/07/2024 7:44 AM BEDSPREAD CUTTER) Glucose, POC 118 70 - 199 mg/dL Blood 03/07/2024 7:44 AM BEDSPREAD CUTTER 03/07/2024 7:44 AM BEDSPREAD CUTTER us Krysten Cohn MD LAB POCT ORDERABLES - DEVICE Final Result Performing Organization Address [facility] de Phone Number [facility] [place] [address] * eGFR (03/06/2024 10:05 PM BEDSPREAD CUTTER) Pathologist [facility] eGFR >90 >=60 mL/min/1. 73 m2 Comment: Interpretive Data Reference Interval Normal >/= 90 mL/min/1.73m2 Mildly decreased* 60 - 89 mL/min/1.73m2 Mildly to moderately decreased 45 - 59 mL/min/1.73m2 Moderately to severely decreased 30 - 44 mL/min/1.73m2 Severely decreased 15 - 29 mL/min/1.73m2 Kidney Failure < 15 mL/min/1.73m2 *Relative to young adult level Estimated glomerular filtration rate is determined by the 2020 CKD-EPI equation recommended by the National Kidney [employer] (A Unifying Approach to GFR Estimation: Recommendations of the NKF-ASK Task Force on Reassessing the Inclusion of Race in Diagnosing Kidney Disease, JASN 2020). The CKD-EPI equation should not be used for patients with unstable renal function and has not been validated in children and those over 70. Current interpretive data was last reviewed 2021. Blood 03/06/2024 10:0 5 PM BEDSPREAD CUTTER 03/06/2024 11:51 PM BEDSPREAD CUTTER us Krysten Cohn MD LAB BLOOD ORDERABLES Final Result [facility] [place] [address] * (ABNORMAL) Differential, auto (03/06/2024 10:05 PM BEDSPREAD CUTTER) Pathologist [facility] Neutrophil abs 11.3(H) 1.5 - 6.5 K/cumm Imm gran abs 0.5(H) 0.0 - 0.1 K/cumm [facility] Lymphocyte abs 2.1 0.8 - 3.3 K/cumm [facility] Monocyte abs 1.0(H) 0.2 - 0.8 K/cumm [facility] Eosinophil abs 0.1 0.0 - 0.5 K/cumm [facility] Basophil abs 0.1 0.0 - 0.1 K/cumm [facility] Neutrophil pct 75.1 % [facility] Comment: Interpretive Data Percent cell count reference ranges are not reported, since discordance with absolute values may lead to misinterpretation of CBC data. Current Interpretive Data was last revised on 2017. Imm gran pct 3.1 % [facility] Comment: Interpretive Data Percent cell count reference ranges are not reported, since discordance with absolute values may lead to misinterpretation of CBC data. Current Interpretive Data was last revised on 2017. Lymphocyte pct 13.8 % [facility] Comment: Interpretive Data Percent cell count reference ranges are not reported, since discordance with absolute values may lead to misinterpretation of CBC data. Current Interpretive Data was last revised on 2017. Monocyte pct 6.4 % [facility] Comment: Interpretive Data Percent cell count reference ranges are not reported, since discordance with absolute values may lead to misinterpretation of CBC data. Current Interpretive Data was last revised on 2017. Eosinophil pct 0.9 % [facility] Comment: Interpretive Data Percent cell count reference ranges are not reported, since discordance with absolute values may lead to misinterpretation of CBC data. Current Interpretive Data was last revised on 2017. Basophil pct 0.7 % [facility] Comment: Interpretive Data Percent cell count reference ranges are not reported, since discordance with absolute values may lead to misinterpretation of CBC data. Current Interpretive Data was last revised on 2017. Blood 03/06/2024 10:0 5 PM BEDSPREAD CUTTER 03/06/2024 11:52 PM BEDSPREAD CUTTER us Krysten Cohn MD LAB BLOOD ORDERABLES Final Result [facility] [place] [address] * (ABNORMAL) CBC with auto differential (03/06/2024 10:05 PM BEDSPREAD CUTTER) WBC 15.1(H) 3.8 - 9.9 K/cumm Hgb 8.8(L) 11.9 - 15.5 g/dL [facility] Hct 27.9(L) 35.6 - 45.5 % [facility] Plt 338 150 - 400 K/cumm [facility] MPV 10.6 9.1 - 12.3 fL [facility] RBC 2.55(L) 3.90 - 5.20 M/cumm [facility] MCV 109.4(H) 81.3 - 96.4 fL [facility] MCH 34.5(H) 27.1 - 33.3 pg [facility] MCHC 31.5(L) 32.3 - 35.7 g/dL [facility] RDW CV 16.7(H) 11.1 - 14.9 % [facility] RDW SD 62.4(H) 35.7 - 48.1 fL [facility] NRBC abs 0.00 0.00 - 0.01 K/cumm [facility] Blood 03/06/2024 10:0 5 PM BEDSPREAD CUTTER 03/06/2024 11:52 PM BEDSPREAD CUTTER Krysten Cohn MD LAB BLOOD ORDERABLES Final Result [facility] [place] [address] * Phosphorus (03/06/2024 10:05 PM BEDSPREAD CUTTER) Phosphorus, pl 2.3 2.3 - 4.5 mg/dL Blood 03/06/2024 10:0 5 PM BEDSPREAD CUTTER 03/06/2024 11:51 PM BEDSPREAD CUTTER Krysten Cohn MD LAB BLOOD ORDERABLES Final Result [facility] [place] [address] * Magnesium (03/06/2024 10:05 PM BEDSPREAD CUTTER) Magnesium 1.5 1.4 - 2.5 mg/dL Blood 03/06/2024 10:0 5 PM BEDSPREAD CUTTER 03/06/2024 11:51 PM BEDSPREAD CUTTER us Krysten Cohn MD LAB BLOOD ORDERABLES Final Result [facility] [place] [address] * (ABNORMAL) Comprehensive metabolic panel (03/06/2024 10:05 PM BEDSPREAD CUTTER) Pathologist [facility] Sodium 139 135 - 145 mmol/L Potassium, pl 3.6 3.3 - 4.9 mmol/L [facility] Chloride 100 97 - 110 mmol/L [facility] CO2 28 22 - 32 mmol/L [facility] Anion gap 11 2 - 15 mmol/L [facility] BUN 15 6 - 25 mg/dL [facility] Creatinine 0.72 0.60 - 1.10 mg/dL [facility] Glucose 87 70 - 199 mg/dL [facility] Comment: Interpretive Data Fasting glucose >/= 126 mg/dl is diagnostic for diabetes. Fasting is defined as no caloric intake for at least 8 hours. Fasting glucose between 100 mg/dl to 125 mg/dl is diagnostic of prediabetes. In a patient with classic symptoms of hyperglycemia or hyperglycemic crisis, a random glucose >/= 200 mg/dl is diagnostic for diabetes. In the absence of unequivocal hyperglycemia, results should be confirmed by repeat testing. The classification and Diagnosis of Diabetes Diabetes Care 2021; 46: S19-S40. Current interpretive data was last revised 2022. Calcium 8.2(L) 8.5 - 10.3 mg/dL [facility] Bilirubin, total 0.8 0.1 - 1.2 mg/dL [facility] Protein, pl 6.2(L) 6.5 - 8.5 g/dL [facility] Albumin 2.9(L) 3.5 - 5.0 g/dL [facility] Alk phos 235(H) 40 - 130 Units/L [facility] ALT 19 7 - 45 Units/L [facility] AST 51(H) 10 - 45 Units/L [facility] Blood 03/06/2024 10:0 5 PM BEDSPREAD CUTTER 03/06/2024 11:51 PM BEDSPREAD CUTTER us Krysten Cohn MD LAB BLOOD ORDERABLES Final Result Performing Organization Address City/[facility] Co de Phone Number [facility] [address] * POCT glucose (03/06/2024 7:31 PM BEDSPREAD CUTTER) Glucose, POC 123 70 - 199 mg/dL Blood 03/06/2024 7:31 PM BEDSPREAD CUTTER 03/06/2024 7:31 PM BEDSPREAD CUTTER us Krysten Cohn MD LAB POCT ORDERABLES - DEVICE Final Result Performing Organization Address [facility] Co de Phone Number [facility] [place] [address] * POCT glucose (03/06/2024 5:46 PM BEDSPREAD CUTTER) Glucose, POC 91 70 - 199 mg/dL Blood 03/06/2024 5:46 PM BEDSPREAD CUTTER 03/06/2024 5:46 PM BEDSPREAD CUTTER us Krysten Cohn MD LAB POCT ORDERABLES - DEVICE Final Result Performing Organization Address [facility] Co de Phone Number [facility] [place] [address] * POCT glucose (03/06/2024 11:42 AM BEDSPREAD CUTTER) Glucose, POC 99 70 - 199 mg/dL Blood 03/06/2024 11:4 2 AM BEDSPREAD CUTTER 03/06/2024 11:42 AM BEDSPREAD CUTTER us Krysten Chon MD LAB POCT ORDERABLES - DEVICE Final Result Performing Organization Address City/[facility] Co de Phone Number [facility] [place] [address] * POCT glucose (03/06/2024 8:47 AM BEDSPREAD CUTTER) Glucose, POC 89 70 - 199 mg/dL Blood 03/06/2024 8:47 AM BEDSPREAD CUTTER 03/06/2024 8:47 AM BEDSPREAD CUTTER Krysten Cohn MD LAB POCT ORDERABLES - DEVICE Final Result Performing Organization Address [facility] [place] [address] * Protime-INR (03/05/2024 10:53 PM BEDSPREAD CUTTER) [facility] PT 12.7 9.7 - 13.0 sec INR 1.17 0.90 - 1.20 [facility] Comment: Interpretive data Oral anticoagulant therapeutic ranges: Venous thromboembolism prophylaxis or treatment: 2.0-3.0 CARDIOLOGY Standard range: 2.0-3.0 High-intensity range: 2.5-3.5 Refer to indication-specific guidelines for appropriate target ranges for prosthetic heart valve replacement. Current interpretive data was last revised on 2019. Blood 03/05/2024 10:5 3 PM BEDSPREAD CUTTER 03/05/2024 11:20 PM BEDSPREAD CUTTER Nolvia Renner MD LAB BLOOD ORDERABLES F inal Result Performing Organization Address [facility] [place] [address] * POCT glucose (03/05/2024 8:00 PM BEDSPREAD CUTTER) Glucose, POC 105 70 - 199 mg/dL Blood 03/05/2024 8:00 PM BEDSPREAD CUTTER 03/05/2024 8:00 PM BEDSPREAD CUTTER Krysten Cohn MD LAB POCT ORDERABLES - DEVICE Final Result Performing Organization Address [facility] de Phone Number [facility] [place] [address] * eGFR (03/05/2024 7:52 PM BEDSPREAD CUTTER) Pathologist [facility] eGFR >90 >=60 mL/min/1. 73 m2 Comment: Interpretive Data Reference Interval Normal >/= 90 mL/min/1.73m2 Mildly decreased* 60 - 89 mL/min/1.73m2 Mildly to moderately decreased 45 - 59 mL/min/1.73m2 Moderately to severely decreased 30 - 44 mL/min/1.73m2 Severely decreased 15 - 29 mL/min/1.73m2 Kidney Failure < 15 mL/min/1.73m2 *Relative to young adult level Estimated glomerular filtration rate is determined by the 2020 CKD-EPI equation recommended by the National Kidney Foundation (A Unifying Approach to GFR Estimation: Recommendations of the NKF-ASK Task Force on Reassessing the Inclusion of Race in Diagnosing Kidney Disease, JASN 2020). The CKD-EPI equation should not be used for patients with unstable renal function and has not been validated in children and those over 70. Current interpretive data was last reviewed 2021. Blood 03/05/2024 7:52 PM BEDSPREAD CUTTER 03/05/2024 10:21 PM BEDSPREAD CUTTER us Krysten Cohn MD LAB BLOOD ORDERABLES Final Result [facility] [place] [address] * (ABNORMAL) Differential, auto (03/05/2024 7:52 PM BEDSPREAD CUTTER) Pathologist [facility] Neutrophil abs 12.6(H) 1.5 - 6.5 K/cumm Imm gran abs 0.8(H) 0.0 - 0.1 K/cumm [facility] Lymphocyte abs 2.4 0.8 - 3.3 K/cumm [facility] Monocyte abs 0.9(H) 0.2 - 0.8 K/cumm [facility] Eosinophil abs 0.1 0.0 - 0.5 K/cumm [facility] Basophil abs 0.1 0.0 - 0.1 K/cumm [facility] Neutrophil pct 74.5 % [facility] Comment: Interpretive Data Percent cell count reference ranges are not reported, since discordance with absolute values may lead to misinterpretation of CBC data. Current Interpretive Data was last revised on 2017. [facility] gran [facility]ct 4.7 % [facility] Comment: Interpretive Data Percent cell count reference ranges are not reported, since discordance with absolute values may lead to misinterpretation of CBC data. Current Interpretive Data was last revised on 2017. Lymphocyte pct 14.2 % [facility] Comment: Interpretive Data Percent cell count reference ranges are not reported, since discordance with absolute values may lead to misinterpretation of CBC data. Current Interpretive Data was last revised on 2017. Monocyte pct 5.4 % [facility] Comment: Interpretive Data Percent cell count reference ranges are not reported, since discordance with absolute values may lead to misinterpretation of CBC data. Current Interpretive Data was last revised on 2017. Eosinophil pct 0.7 % [facility] Comment: Interpretive Data Percent cell count reference ranges are not reported, since discordance with absolute values may lead to misinterpretation of CBC data. Current Interpretive Data was last revised on 2017. Basophil pct 0.5 % [facility] Comment: Interpretive Data Percent cell count reference ranges are not reported, since discordance with absolute values may lead to misinterpretation of CBC data. Current Interpretive Data was last revised on 2017. Blood 03/05/2024 7:52 PM BEDSPREAD CUTTER 03/05/2024 10:23 PM BEDSPREAD CUTTER us Krysten Cohn MD LAB BLOOD ORDERABLES Final Result [facility] [place] [address] * (ABNORMAL) CBC with auto differential (03/05/2024 7:52 PM BEDSPREAD CUTTER) WBC 16.9(H) 3.8 - 9.9 K/cumm Hgb 9.2(L) 11.9 - 15.5 g/dL [facility] Hct 28.9(L) 35.6 - 45.5 % [facility] Plt 364 150 - 400 K/cumm [facility] MPV 10.8 9.1 - 12.3 fL [facility] RBC 2.67(L) 3.90 - 5.20 M/cumm [facility] MCV 108.2(H) 81.3 - 96.4 fL [facility] MCH 34.5(H) 27.1 - 33.3 pg [facility] MCHC 31.8(L) 32.3 - 35.7 g/dL [facility] RDW CV 16.8(H) 11.1 - 14.9 % [facility] RDW SD 61.3(H) 35.7 - 48.1 fL [facility] NRBC abs 0.03(H) 0.00 - 0.01 K/cumm [facility] Blood 03/05/2024 7:52 PM BEDSPREAD CUTTER 03/05/2024 10:23 PM BEDSPREAD CUTTER us Krysten Cohn MD LAB BLOOD ORDERABLES Final Result Performing Organization Address City/[facility] Co de Phone Number [facility] [place] [address] * Phosphorus (03/05/2024 7:52 PM BEDSPREAD CUTTER) Pathologist [facility] Phosphorus, pl 2.3 2.3 - 4.5 mg/dL Blood 03/05/2024 7:52 PM BEDSPREAD CUTTER 03/05/2024 10:21 PM BEDSPREAD CUTTER Krysten Cohn MD LAB BLOOD ORDERABLES Final Result [facility] [place] [address] * Magnesium (03/05/2024 7:52 PM BEDSPREAD CUTTER) Pathologist [facility] Magnesium 1.5 1.4 - 2.5 mg/dL Blood 03/05/2024 7:52 PM BEDSPREAD CUTTER 03/05/2024 10:21 PM BEDSPREAD CUTTER us Krysten Cohn MD LAB BLOOD ORDERABLES Final Result [facility] [place] [address] * (ABNORMAL) Comprehensive metabolic panel (03/05/2024 7:52 PM BEDSPREAD CUTTER) Sodium 142 135 - 145 mmol/L Potassium, pl 3.4 3.3 - 4.9 mmol/L [facility] Chloride 99 97 - 110 mmol/L [facility] CO2 29 22 - 32 mmol/L [facility] Anion gap 14 2 - 15 mmol/L [facility] BUN 18 6 - 25 mg/dL [facility] Creatinine 0.68 0.60 - 1.10 mg/dL [facility] Glucose 96 70 - 199 mg/dL [facility] Comment: Interpretive Data Fasting glucose >/= 126 mg/dl is diagnostic for diabetes. Fasting is defined as no caloric intake for at least 8 hours. Fasting glucose between 100 mg/dl to 125 mg/dl is diagnostic of prediabetes. In a patient with classic symptoms of hyperglycemia or hyperglycemic crisis, a random glucose >/= 200 mg/dl is diagnostic for diabetes. In the absence of unequivocal hyperglycemia, results should be confirmed by repeat testing. The classification and Diagnosis of Diabetes Diabetes Care 202; 46: S19-S40. Current interpretive data was last revised 2022. Calcium 8.1(L) 8.5 - 10.3 mg/dL [facility] Bilirubin, total 0.9 0.1 - 1.2 mg/dL [facility] Protein, pl 6.5 6.5 - 8.5 g/dL [facility] Albumin 3.2(L) 3.5 - 5.0 g/dL [facility] Alk phos 267(H) 40 - 130 Units/L [facility] ALT 40 7 - 45 Units/L [facility] AST 78(H) 10 - 45 Units/L [facility] Blood 03/05/2024 7:52 PM BEDSPREAD CUTTER 03/05/2024 10:21 PM BEDSPREAD CUTTER us Krysten Cohn MD LAB BLOOD ORDERABLES Final Result Performing Organization Address [facility] Co de Phone Number [facility] [place] [place] [address] * POCT glucose (03/05/2024 5:07 PM BEDSPREAD CUTTER) Glucose, POC 100 70 - 199 mg/dL Blood 03/05/2024 5:07 PM BEDSPREAD CUTTER 03/05/2024 5:07 PM BEDSPREAD CUTTER us Krysten Cohn MD LAB POCT ORDERABLES - DEVICE Final Result Performing Organization Address [facility] de Phone Number [facility] [place] [address] * POCT glucose (03/05/2024 11:39 AM BEDSPREAD CUTTER) Glucose, POC 121 70 - 199 mg/dL Blood 03/05/2024 11:3 9 AM BEDSPREAD CUTTER 03/05/2024 11:39 AM BEDSPREAD CUTTER us Krysten Cohn MD LAB POCT ORDERABLES - DEVICE Final Result Performing Organization Address [facility] de Phone Number [facility] [place] [address] * POCT glucose (03/05/2024 8:03 AM BEDSPREAD CUTTER) Glucose, POC 119 70 - 199 mg/dL Blood 03/05/2024 8:03 AM BEDSPREAD CUTTER 03/05/2024 8:03 AM BEDSPREAD CUTTER Krysten Cohn MD LAB POCT ORDERABLES - DEVICE Final Result Performing Organization Address [facility] Co de Phone Number [facility] [place] [address] * eGFR (2024 10:39 PM BEDSPREAD CUTTER) Pathologist [facility] eGFR >90 >=60 mL/min/1. 73 m2 Comment: Interpretive Data Reference Interval Normal >/= 90 mL/min/1.73m2 Mildly decreased* 60 - 89 mL/min/1.73m2 Mildly to moderately decreased 45 - 59 mL/min/1.73m2 Moderately to severely decreased 30 - 44 mL/min/1.73m2 Severely decreased 15 - 29 mL/min/1.73m2 Kidney Failure < 15 mL/min/1.73m2 *Relative to young adult level Estimated glomerular filtration rate is determined by the 2020 CKD-EPI equation recommended by the National Kidney Foundation (A Unifying Approach to GFR Estimation: Recommendations of the NKF-ASK Task Force on Reassessing the Inclusion of Race in Diagnosing Kidney Disease, JASN 2020). The CKD-EPI equation should not be used for patients with unstable renal function and has not been validated in children and those over 70. Current interpretive data was last reviewed 2021. Blood 2024 10:3 9 PM BEDSPREAD CUTTER 2024 11:44 PM BEDSPREAD CUTTER us Krysten Cohn MD LAB BLOOD ORDERABLES Final Result [facility] [place] [address] * (ABNORMAL) Differential, auto (2024 10:39 PM BEDSPREAD CUTTER) Pathologist [facility] Neutrophil abs 12.9(H) 1.5 - 6.5 K/cumm Imm gran abs 1.3(H) 0.0 - 0.1 K/cumm [facility] Lymphocyte abs 2.3 0.8 - 3.3 K/cumm [facility] Monocyte abs 1.0(H) 0.2 - 0.8 K/cumm [facility] Eosinophil abs 0.1 0.0 - 0.5 K/cumm [facility] Basophil abs 0.1 0.0 - 0.1 K/cumm [facility] Neutrophil pct 73.1 % [facility] Comment: Interpretive Data Percent cell count reference ranges are not reported, since discordance with absolute values may lead to misinterpretation of CBC data. Current Interpretive Data was last revised on 2017. Imm gran pct 7.4 % [facility] Comment: Interpretive Data Percent cell count reference ranges are not reported, since discordance with absolute values may lead to misinterpretation of CBC data. Current Interpretive Data was last revised on 2017. Lymphocyte pct 12.8 % [facility] Comment: Interpretive Data Percent cell count reference ranges are not reported, since discordance with absolute values may lead to misinterpretation of CBC data. Current Interpretive Data was last revised on 2017. Monocyte pct 5.4 % [facility] Comment: Interpretive Data Percent cell count reference ranges are not reported, since discordance with absolute values may lead to misinterpretation of CBC data. Current Interpretive Data was last revised on 2017. Eosinophil pct 0.7 % [facility] Comment: Interpretive Data Percent cell count reference ranges are not reported, since discordance with absolute values may lead to misinterpretation of CBC data. Current Interpretive Data was last revised on 2017. Basophil pct 0.6 % [facility] Comment: Interpretive Data Percent cell count reference ranges are not reported, since discordance with absolute values may lead to misinterpretation of CBC data. Current Interpretive Data was last revised on 2017. Blood 2024 10:3 9 PM BEDSPREAD CUTTER 2024 11:44 PM BEDSPREAD CUTTER us Krysten Cohn MD LAB BLOOD ORDERABLES Final Result [facility] [place] [address] * (ABNORMAL) CBC with auto differential (2024 10:39 PM BEDSPREAD CUTTER) WBC 17.6(H) 3.8 - 9.9 K/cumm Hgb 8.6(L) 11.9 - 15.5 g/dL [facility] Hct 27.3(L) 35.6 - 45.5 % [facility] Plt 305 150 - 400 K/cumm [facility] MPV 10.6 9.1 - 12.3 fL [facility] RBC 2.51(L) 3.90 - 5.20 M/cumm [facility] MCV 108.8(H) 81.3 - 96.4 fL [facility] MCH 34.3(H) 27.1 - 33.3 pg [facility] MCHC 31.5(L) 32.3 - 35.7 g/dL [facility] RDW CV 16.6(H) 11.1 - 14.9 % [facility] RDW SD 60.0(H) 35.7 - 48.1 fL [facility] NRBC abs 0.06(H) 0.00 - 0.01 K/cumm [facility] Blood 2024 10:3 9 PM BEDSPREAD CUTTER 2024 11:44 PM BEDSPREAD CUTTER us Krysten Cohn MD LAB BLOOD ORDERABLES Final Result Performing Organization Address City/State/[facility] Co de Phone Number [facility] [place] [address] * Protime-INR (2024 10:39 PM BEDSPREAD CUTTER) PT 11.8 9.7 - 13.0 sec INR 1.09 0.90 - 1.20 [facility] Comment: Interpretive data Oral anticoagulant therapeutic ranges: Venous thromboembolism prophylaxis or treatment: 2.0-3.0 CARDIOLOGY Standard range: 2.0-3.0 High-intensity range: 2.5-3.5 Refer to indication-specific guidelines for appropriate target ranges for prosthetic heart valve replacement. Current interpretive data was last revised on 2019. Blood 2024 10:3 9 PM BEDSPREAD CUTTER 03/05/2024 12:06 AM BEDSPREAD CUTTER us Krysten Cohn MD LAB BLOOD ORDERABLES Final Result Performing Organization Address City/State/[facility] Co de Phone Number [facility] [place] [place] [address] * Phosphorus (2024 10:39 PM BEDSPREAD CUTTER) [facility] Phosphorus, pl 2.3 2.3 - 4.5 mg/dL Blood 2024 10:3 9 PM BEDSPREAD CUTTER 2024 11:44 PM BEDSPREAD CUTTER us Krysten Cohn MD LAB BLOOD ORDERABLES Final Result Performing Organization Address [facility] Co de Phone Number [facility] [place] [address] * (ABNORMAL) Magnesium (2024 10:39 PM BEDSPREAD CUTTER) [facility] Magnesium 1.3(L) 1.4 - 2.5 mg/dL Blood 2024 10:3 9 PM BEDSPREAD CUTTER 2024 11:44 PM BEDSPREAD CUTTER us Krysten Cohn MD LAB BLOOD ORDERABLES Final Result Performing Organization Address [facility] de Phone Number [facility] [place] [address] * (ABNORMAL) Comprehensive metabolic panel (2024 10:39 PM BEDSPREAD CUTTER) [facility] Sodium 140 135 - 145 mmol/L Potassium, pl 3.2(L) 3.3 - 4.9 mmol/L [facility] Chloride 100 97 - 110 mmol/L [facility] CO2 28 22 - 32 mmol/L [facility] Anion gap 12 2 - 15 mmol/L [facility] BUN 18 6 - 25 mg/dL [facility] Creatinine 0.63 0.60 - 1.10 mg/dL [facility] Glucose 112 70 - 199 mg/dL [facility] Comment: Interpretive Data Fasting glucose >/= 126 mg/dl is diagnostic for diabetes. Fasting is defined as no caloric intake for at least 8 hours. Fasting glucose between 100 mg/dl to 125 mg/dl is diagnostic of prediabetes. In a patient with classic symptoms of hyperglycemia or hyperglycemic crisis, a random glucose >/= 200 mg/dl is diagnostic for diabetes. In the absence of unequivocal hyperglycemia, results should be confirmed by repeat testing. The classification and Diagnosis of Diabetes Diabetes Care 2021; 46: S19-S40. Current interpretive data was last revised 2022. Calcium 8.0(L) 8.5 - 10.3 mg/dL [facility] Bilirubin, total 0.9 0.1 - 1.2 mg/dL [facility] Protein, pl 6.1(L) 6.5 - 8.5 g/dL [facility] Albumin 2.7(L) 3.5 - 5.0 g/dL [facility] Alk phos 235(H) 40 - 130 Units/L [facility] ALT 28 7 - 45 Units/L [facility] AST 110(H) 10 - 45 Units/L [facility] Blood 2024 10:3 9 PM BEDSPREAD CUTTER 2024 11:44 PM BEDSPREAD CUTTER us Krysten Cohn MD LAB BLOOD ORDERABLES Final Result Performing Organization Address [facility] Co de Phone Number [facility] [place] [address] * POCT glucose (2024 8:09 PM BEDSPREAD CUTTER) Glucose, POC 102 70 - 199 mg/dL Blood 2024 8:09 PM BEDSPREAD CUTTER 2024 8:09 PM BEDSPREAD CUTTER Krysten Cohn MD LAB POCT ORDERABLES - DEVICE Final Result Performing Organization Address [facility]/ZIP Co de Phone Number [facility] [place] [address] * POCT glucose (2024 4:43 PM BEDSPREAD CUTTER) Glucose, POC 91 70 - 199 mg/dL Blood 2024 4:43 PM BEDSPREAD CUTTER 2024 4:43 PM BEDSPREAD CUTTER Krysten Cohn MD LAB POCT ORDERABLES - DEVICE Final Result Performing Organization Address [facility] Phone Number [facility] [place] [address] * POCT glucose (2024 12:06 PM BEDSPREAD CUTTER) [facility] Glucose, POC 133 70 - 199 mg/dL Blood 2024 12:0 6 PM BEDSPREAD CUTTER 2024 12:06 PM BEDSPREAD CUTTER Krysten Cohn MD LAB POCT ORDERABLES - DEVICE Final Result Performing Organization Address [facility] Phone Number [facility] [place] [address] * POCT glucose (2024 8:37 AM BEDSPREAD CUTTER) [facility] Glucose, POC 141 70 - 199 mg/dL Blood 2024 8:37 AM BEDSPREAD CUTTER 2024 8:37 AM BEDSPREAD CUTTER Krysten Cohn MD LAB POCT ORDERABLES - DEVICE Final Result Performing Organization Address [facility] Phone Number [facility] [place] [address] * eGFR (03/03/2024 10:26 PM BEDSPREAD CUTTER) [facility] eGFR >90 >=60 mL/min/1. 73 m2 Comment: Interpretive Data Reference Interval Normal >/= 90 mL/min/1.73m2 Mildly decreased* 60 - 89 mL/min/1.73m2 Mildly to moderately decreased 45 - 59 mL/min/1.73m2 Moderately to severely decreased 30 - 44 mL/min/1.73m2 Severely decreased 15 - 29 mL/min/1.73m2 Kidney Failure < 15 mL/min/1.73m2 *Relative to young adult level Estimated glomerular filtration rate is determined by the 2020 CKD-EPI equation recommended by the National Kidney Foundation (A Unifying Approach to GFR Estimation: Recommendations of the NKF-ASK Task Force on Reassessing the Inclusion of Race in Diagnosing Kidney Disease, JASN 202). The CKD-EPI equation should not be used for patients with unstable renal function and has not been validated in children and those over 70. Current interpretive data was last reviewed 2021. Blood 03/03/2024 10:2 6 PM BEDSPREAD CUTTER 2024 12:35 AM BEDSPREAD CUTTER us Krysten Cohn MD LAB BLOOD ORDERABLES Final Result [facility] [place] [address] * (ABNORMAL) CBC with auto differential (03/03/2024 10:26 PM BEDSPREAD CUTTER) WBC 18.2(H) 3.8 - 9.9 K/cumm Hgb 8.3(L) 11.9 - 15.5 g/dL [facility] Hct 25.7(L) 35.6 - 45.5 % [facility] Plt 276 150 - 400 K/cumm [facility] MPV 10.8 9.1 - 12.3 fL [facility] RBC 2.44(L) 3.90 - 5.20 M/cumm [facility] MCV 105.3(H) 81.3 - 96.4 fL [facility] MCH 34.0(H) 27.1 - 33.3 pg [facility] MCHC 32.3 32.3 - 35.7 g/dL [facility] RDW CV 15.8(H) 11.1 - 14.9 % [facility] RDW SD 59.4(H) 35.7 - 48.1 fL [facility] NRBC abs 0.19(H) 0.00 - 0.01 K/cumm [facility] Blood 03/03/2024 10:2 6 PM BEDSPREAD CUTTER 2024 1:21 AM BEDSPREAD CUTTER us Krysten Cohn MD LAB BLOOD ORDERABLES Final Result [facility] [place] [address] * (ABNORMAL) Manual Differential (03/03/2024 10:26 PM BEDSPREAD CUTTER) Differential Manual [facility] Neutrophil abs 14.0(H) 1.5 - 6.5 K/cumm [facility] Imm gran abs 0.8(H) 0.0 - 0.1 K/cumm [facility] Lymphocyte abs 2.5 0.8 - 3.3 K/cumm [facility] Monocyte abs 0.8 0.2 - 0.8 K/cumm [facility] Basophil abs 0.2(H) 0.0 - 0.1 K/cumm [facility] Neutrophil pct 76.7 % [facility] Comment: Interpretive Data Percent cell count reference ranges are not reported, since discordance with absolute values may lead to misinterpretation of CBC data. Current Interpretive Data was last revised on 2017. Lymphocyte pct 13.8 % [facility] Comment: Interpretive Data Percent cell count reference ranges are not reported, since discordance with absolute values may lead to misinterpretation of CBC data. Current Interpretive Data was last revised on 2017. Monocyte pct 4.3 % [facility] Comment: Interpretive Data Percent cell count reference ranges are not reported, since discordance with absolute values may lead to misinterpretation of CBC data. Current Interpretive Data was last revised on 2017. Basophil pct 0.9 % [facility] Comment: Interpretive Data Percent cell count reference ranges are not reported, since discordance with absolute values may lead to misinterpretation of CBC data. Current Interpretive Data was last revised on 2017. Myelocyte pct 4.3 % [facility] RBC morphology Present(A) [facility] Anisocytosis Marked(A) [facility] Macrocytes > 15/HPF(A) [facility] Platelet estimate Adequate [facility] Blood 03/03/2024 10:2 6 PM BEDSPREAD CUTTER 2024 1:25 AM BEDSPREAD CUTTER Krysten Cohn MD LAB BLOOD ORDERABLES Final Result Performing Organization Address [facility] de Phone Number [facility] [place] [address] * Protime-INR (03/03/2024 10:26 PM BEDSPREAD CUTTER) PT 12.2 9.7 - 13.0 sec INR 1.13 0.90 - 1.20 [facility] Comment: Interpretive data Oral anticoagulant therapeutic ranges: Venous thromboembolism prophylaxis or treatment: 2.0-3.0 CARDIOLOGY Standard range: 2.0-3.0 High-intensity range: 2.5-3.5 Refer to indication-specific guidelines for appropriate target ranges for prosthetic heart valve replacement. Current interpretive data was last revised on 2019. Blood 03/03/2024 10:2 6 PM BEDSPREAD CUTTER 2024 12:35 AM BEDSPREAD CUTTER us Krysten Cohn MD LAB BLOOD ORDERABLES Final Result Performing Organization Address [facility] de Phone Number [facility] [place] [address] * (ABNORMAL) Phosphorus (03/03/2024 10:26 PM BEDSPREAD CUTTER) Phosphorus, pl 2.2(L) 2.3 - 4.5 mg/dL Blood 03/03/2024 10:2 6 PM BEDSPREAD CUTTER 2024 12:35 AM BEDSPREAD CUTTER Krysten Cohn MD LAB BLOOD ORDERABLES Final Result Performing Organization Address [facility] Co de Phone Number [facility] [place] [address] * Magnesium (03/03/2024 10:26 PM BEDSPREAD CUTTER) Pathologist [facility] Magnesium 1.5 1.4 - 2.5 mg/dL Blood 03/03/2024 10:2 6 PM BEDSPREAD CUTTER 2024 12:35 AM BEDSPREAD CUTTER us Krysten Cohn MD LAB BLOOD ORDERABLES Final Result [facility] [place] [address] * (ABNORMAL) Comprehensive metabolic panel (03/03/2024 10:26 PM BEDSPREAD CUTTER) Pathologist [facility] Sodium 143 135 - 145 mmol/L Potassium, pl 3.5 3.3 - 4.9 mmol/L [facility] Chloride 102 97 - 110 mmol/L [facility] CO2 28 22 - 32 mmol/L [facility] Anion gap 13 2 - 15 mmol/L [facility] BUN 28(H) 6 - 25 mg/dL [facility] Creatinine 0.68 0.60 - 1.10 mg/dL [facility] Glucose 103 70 - 199 mg/dL [facility] Comment: Interpretive Data Fasting glucose >/= 126 mg/dl is diagnostic for diabetes. Fasting is defined as no caloric intake for at least 8 hours. Fasting glucose between 100 mg/dl to 125 mg/dl is diagnostic of prediabetes. In a patient with classic symptoms of hyperglycemia or hyperglycemic crisis, a random glucose >/= 200 mg/dl is diagnostic for diabetes. In the absence of unequivocal hyperglycemia, results should be confirmed by repeat testing. The classification and Diagnosis of Diabetes Diabetes Care 2021; 46: S19-S40. Current interpretive data was last revised 2022. Calcium 8.0(L) 8.5 - 10.3 mg/dL [facility] Bilirubin, total 0.7 0.1 - 1.2 mg/dL [facility] Protein, pl 5.9(L) 6.5 - 8.5 g/dL [facility] Albumin 2.7(L) 3.5 - 5.0 g/dL [facility] Alk phos 216(H) 40 - 130 Units/L [facility] ALT 42 7 - 45 Units/L [facility] AST 202(H) 10 - 45 Units/L [facility] Blood 03/03/2024 10:2 6 PM BEDSPREAD CUTTER 2024 12:35 AM BEDSPREAD CUTTER us Krysten Cohn MD LAB BLOOD ORDERABLES Final Result Performing Organization Address [facility] Co de Phone Number [facility] [place] [address] * POCT glucose (03/03/2024 8:17 PM BEDSPREAD CUTTER) Glucose, POC 146 70 - 199 mg/dL Blood 03/03/2024 8:17 PM BEDSPREAD CUTTER 03/03/2024 8:17 PM BEDSPREAD CUTTER us Krysten Cohn MD LAB POCT ORDERABLES - DEVICE Final Result Performing Organization Address [facility] de Phone Number [facility] [place] [address] * XR Chest 1 View (03/03/2024 7:14 PM BEDSPREAD CUTTER) Anatomical Region Laterality Modality Body, Chest N/A Computed Radiogr aphy 2024 11:3 2 AM BEDSPREAD CUTTER Impressions 2024 11:32 AM BEDSPREAD CUTTER Comparison 02/23/2024 5:17 PM. Right internal jugular central venous catheter has been removed. Minimal right basilar atelectasis or scarring again seen. Mild elevation the right hemidiaphragm again noted. The lungs otherwise are clear without focal consolidation or pulmonary edema. No pneumothorax or pleural effusion seen. Electronically signed by: Nolberto Garsia M.D. Narrative 2024 11:32 AM BEDSPREAD CUTTER EXAMINATION: 1 view chest radiograph Procedure Note Nolberto Garsia MD - 2024 EXAMINATION: 1 view chest radiograph IMPRESSION: Comparison 02/23/2024 5:17 PM. Right internal jugular central venous catheter has been removed. Minimal right basilar atelectasis or scarring again seen. Mild elevation the right hemidiaphragm again noted. The lungs otherwise are clear without focal consolidation or pulmonary edema. No pneumothorax or pleural effusion seen. Electronically signed by: Nolberto Garsia M.D. us Krysten Cohn MD IMG XR PROCEDURES Fin al Result * POCT glucose (03/03/2024 5:47 PM BEDSPREAD CUTTER) Glucose, POC 120 70 - 199 mg/dL Blood 03/03/2024 5:47 PM BEDSPREAD CUTTER 03/03/2024 5:47 PM BEDSPREAD CUTTER us Krysten Cohn MD LAB POCT ORDERABLES - DEVICE Final Result Performing Organization Address [facility] de Phone Number [facility] [place] [address] * POCT glucose (03/03/2024 12:17 PM BEDSPREAD CUTTER) Glucose, POC 149 70 - 199 mg/dL Blood 03/03/2024 12:1 7 PM BEDSPREAD CUTTER 03/03/2024 12:17 PM BEDSPREAD CUTTER us Krysten Cohn MD LAB POCT ORDERABLES - DEVICE Final Result Performing Organization Address [facility] de Phone Number [facility] [place] [address] * POCT glucose (03/03/2024 8:09 AM BEDSPREAD CUTTER) Glucose, POC 118 70 - 199 mg/dL Blood 03/03/2024 8:09 AM BEDSPREAD CUTTER 03/03/2024 8:09 AM BEDSPREAD CUTTER us Krysten Cohn MD LAB POCT ORDERABLES - DEVICE Final Result Performing Organization Address [facility] de Phone Number [facility] [place] [address] * POCT glucose (03/02/2024 11:51 PM BEDSPREAD CUTTER) Glucose, POC 112 70 - 199 mg/dL Blood 03/02/2024 11:5 1 PM BEDSPREAD CUTTER 03/02/2024 11:51 PM BEDSPREAD CUTTER us Krysten Cohn MD LAB POCT ORDERABLES - DEVICE Final Result Performing Organization Address City/[facility] Co de Phone Number [facility] [place] [address] * Critical Care (03/02/2024 9:58 PM BEDSPREAD CUTTER) Narrative Gloria Schwarz MD - 03/02/2024 9:58 PM BEDSPREAD CUTTER Gloria Schwarz MD 03/02/2024 9:59 PM Critical Care Performed by: Gloria Schwarz MD Authorized by: Gloria Schwarz MD CRITICAL CARE: Team: SICU RED Shift: PM Level of Billing: Subsequent Hospital Visit Level 3 My time spent with this patient was 30 minutes: Critical Provider Statement: I have seen and examined the patient on this day of service. I have reviewed and confirmed the history, physical exam, laboratory, and radiographic data as documented in the ICU note. I have reviewed and discussed my treatment plan with the patient's team and other medical/transportation sales consultant staff. This time was in addition to and separate from care provided by other practitioners on this day of service. us Gloria Schwarz MD IN CLINIC/BEDSIDE ORDER DELFINA Final Result * Wound Care (03/02/2024 9:07 PM BEDSPREAD CUTTER) Narrative Nafisa Sanchez MD - 03/02/2024 9:07 PM BEDSPREAD CUTTER Nafisa Snachez MD 03/02/2024 9:27 PM Wound Care Date/Time: 03/02/2024 9:07 PM Performed by: Nafisa Sanchez MD Authorized by: Nafisa Sanchez MD Consent: Consent obtained: Written Consent given by: Patient Risks, benefits, and alternatives were discussed: yes Risks discussed: Bleeding, infection and incomplete drainage Alternatives discussed: Delayed treatment and no treatment [place] protocol: Procedure explained and questions answered to patient or proxy's satisfaction: yes Relevant documents present and verified: yes Imaging studies available: yes Patient identity confirmed: Verbally with patient and arm band Sedation: Sedation type: Moderate sedation Anesthesia: Anesthesia method: None Procedure details: Indications: open wounds Wound location: Leg Leg location: L knee Wound age (days): 10 Wound surface area (sq cm): 200 Debridement performed: Yes Debridement type: excisional Debridement level: muscle Debridement mechanism: Blade, pulsatile lavage probe, scissors and forceps Devitalized tissue debrided: biofilm, exudate, necrotic debris and slough Dressing: Packing/drain action: new packing Dressing applied: Kerlix Post-procedure details: Procedure completion: Tolerated Comments: Devitalized slough sharply excised from medial and anterior wound defects. 2cm of dusky skin sharply dissected from inferior edge of anterior incision. Wound beds were roughly agitated with saline soaked gauze. Saline soaked kerlix was passed subcutaneously between wound pockets and shoe-shined, freeing more fibrinous slough from the underlying tract. Wounds were copiously irrigated with 75mL NS. Suction and further sharp dissection freed several more pieces of fibrinous slough. No pus in wound, base well granulated. Wound extent: Medal wound at skin crease of knee joint, tracking superiorly 6cm as well as superolaterally to meet the anterior wound in a curved tunnel approx 2cm thick. Anterior wound then further tracks circumferentially around the lateral aspect of LLE 6cm deep. us Nafisa Sanchez MD IN CLINIC/BEDSIDE ORD ERABLES Edited Result - Final * Protime-INR (03/02/2024 8:45 PM BEDSPREAD CUTTER) PT 12.6 9.7 - 13.0 sec INR 1.16 0.90 - 1.20 [facility] Comment: Interpretive data Oral anticoagulant therapeutic ranges: Venous thromboembolism prophylaxis or treatment: 2.0-3.0 CARDIOLOGY Standard range: 2.0-3.0 High-intensity range: 2.5-3.5 Refer to indication-specific guidelines for appropriate target ranges for prosthetic heart valve replacement. Current interpretive data was last revised on 2019. Blood 03/02/2024 8:45 PM BEDSPREAD CUTTER 03/02/2024 9:00 PM BEDSPREAD CUTTER Krysten Cohn MD LAB BLOOD ORDERABLES Final Result Performing Organization Address [facility] Co de Phone Number [facility] [place] [address] * POCT glucose (03/02/2024 8:01 PM BEDSPREAD CUTTER) Glucose, POC 107 70 - 199 mg/dL Blood 03/02/2024 8:01 PM BEDSPREAD CUTTER 03/02/2024 8:01 PM BEDSPREAD CUTTER Krysten Cohn MD LAB POCT ORDERABLES - DEVICE Final Result Performing Organization Address [facility] de Phone Number [facility] [place] [address] * eGFR (03/02/2024 7:12 PM BEDSPREAD CUTTER) eGFR 67 >=60 mL/min/1. 73 m2 Comment: Interpretive Data Reference Interval Normal >/= 90 mL/min/1.73m2 Mildly decreased* 60 - 89 mL/min/1.73m2 Mildly to moderately decreased 45 - 59 mL/min/1.73m2 Moderately to severely decreased 30 - 44 mL/min/1.73m2 Severely decreased 15 - 29 mL/min/1.73m2 Kidney Failure < 15 mL/min/1.73m2 *Relative to young adult level Estimated glomerular filtration rate is determined by the 2020 CKD-EPI equation recommended by the National Kidney Foundation (A Unifying Approach to GFR Estimation: Recommendations of the NKF-ASK Task Force on Reassessing the Inclusion of Race in Diagnosing Kidney Disease, JASN 2020). The CKD-EPI equation should not be used for patients with unstable renal function and has not been validated in children and those over 70. Current interpretive data was last reviewed 2021. Blood 03/02/2024 7:12 PM BEDSPREAD CUTTER 03/02/2024 7:25 PM BEDSPREAD CUTTER us Krysten Cohn MD LAB BLOOD ORDERABLES Final Result [facility] [place] [address] * (ABNORMAL) Differential, auto (03/02/2024 7:12 PM BEDSPREAD CUTTER) Neutrophil abs 13.0(H) 1.5 - 6.5 K/cumm Imm gran abs 3.0(H) 0.0 - 0.1 [facility] Lymphocyte abs 2.3 0.8 - 3.3 K/cumm [facility] Monocyte abs 1.3(H) 0.2 - 0.8 K/cumm [facility] Eosinophil abs 0.1 0.0 - 0.5 K/cumm [facility] Basophil abs 0.1 0.0 - 0.1 K/cumm [facility] Neutrophil pct 65.9 % [facility] Comment: Confirmed by smear review Interpretive Data Percent cell count reference ranges are not reported, since discordance with absolute values may lead to misinterpretation of CBC data. Current Interpretive Data was last revised on 2017. Imm gran pct 15.1 % [facility] Comment: Interpretive Data Percent cell count reference ranges are not reported, since discordance with absolute values may lead to misinterpretation of CBC data. Current Interpretive Data was last revised on 2017. Lymphocyte pct 11.6 % [facility] Comment: Interpretive Data Percent cell count reference ranges are not reported, since discordance with absolute values may lead to misinterpretation of CBC data. Current Interpretive Data was last revised on 2017. Monocyte pct 6.6 % [facility] Comment: Interpretive Data Percent cell count reference ranges are not reported, since discordance with absolute values may lead to misinterpretation of CBC data. Current Interpretive Data was last revised on 2017. Eosinophil pct 0.4 % [facility] Comment: Interpretive Data Percent cell count reference ranges are not reported, since discordance with absolute values may lead to misinterpretation of CBC data. Current Interpretive Data was last revised on 2017. Basophil pct 0.4 % [facility] Comment: Interpretive Data Percent cell count reference ranges are not reported, since discordance with absolute values may lead to misinterpretation of CBC data. Current Interpretive Data was last revised on 2017. Blood 03/02/2024 7:12 PM BEDSPREAD CUTTER 03/02/2024 7:25 PM BEDSPREAD CUTTER us Krysten Cohn MD LAB BLOOD ORDERABLES Final Result [facility] [place] [address] * (ABNORMAL) CBC with auto differential (03/02/2024 7:12 PM BEDSPREAD CUTTER) WBC 19.6(H) 3.8 - 9.9 K/cumm Hgb 8.9(L) 11.9 - 15.5 g/dL [facility] Hct 27.5(L) 35.6 - 45.5 % [facility] Plt 219 150 - 400 K/cumm [facility] MPV 10.7 9.1 - 12.3 fL [facility] RBC 2.64(L) 3.90 - 5.20 M/cumm [facility] MCV 104.2(H) 81.3 - 96.4 fL [facility] MCH 33.7(H) 27.1 - 33.3 pg [facility] MCHC 32.4 32.3 - 35.7 g/dL [facility] RDW CV 15.5(H) 11.1 - 14.9 % [facility] RDW SD 58.7(H) 35.7 - 48.1 fL [facility] NRBC abs 0.43(H) 0.00 - 0.01 K/cumm [facility] Blood 03/02/2024 7:12 PM BEDSPREAD CUTTER 03/02/2024 7:25 PM BEDSPREAD CUTTER us Krysten Cohn MD LAB BLOOD ORDERABLES Final Result Performing Organization Address City/[facility]/ZIP Co de Phone Number [facility] [place] [address] * Phosphorus (03/02/2024 7:12 PM BEDSPREAD CUTTER) [facility] Phosphorus, pl 2.6 2.3 - 4.5 mg/dL Blood 03/02/2024 7:12 PM BEDSPREAD CUTTER 03/02/2024 7:25 PM BEDSPREAD CUTTER us Krysten Cohn MD LAB BLOOD ORDERABLES Final Result Performing Organization Address City/[facility] Co de Phone Number [facility] [place] [address] * Magnesium (03/02/2024 7:12 PM BEDSPREAD CUTTER) [facility] Magnesium 2.2 1.4 - 2.5 mg/dL Blood 03/02/2024 7:12 PM BEDSPREAD CUTTER 03/02/2024 7:25 PM BEDSPREAD CUTTER us Krysten Cohn MD LAB BLOOD ORDERABLES Final Result Performing Organization Address [facility] [place] [address] * (ABNORMAL) Comprehensive metabolic panel (03/02/2024 7:12 PM BEDSPREAD CUTTER) [facility] Sodium 139 135 - 145 mmol/L Potassium, pl 3.5 3.3 - 4.9 mmol/L [facility] Chloride 97 97 - 110 mmol/L [facility] CO2 30 22 - 32 mmol/L [facility] Anion gap 12 2 - 15 mmol/L [facility] BUN 39(H) 6 - 25 mg/dL [facility] Creatinine 1.00 0.60 - 1.10 mg/dL [facility] Glucose 140 70 - 199 mg/dL [facility] Comment: Interpretive Data Fasting glucose >/= 126 mg/dl is diagnostic for diabetes. Fasting is defined as no caloric intake for at least 8 hours. Fasting glucose between 100 mg/dl to 125 mg/dl is diagnostic of prediabetes. In a patient with classic symptoms of hyperglycemia or hyperglycemic crisis, a random glucose >/= 200 mg/dl is diagnostic for diabetes. In the absence of unequivocal hyperglycemia, results should be confirmed by repeat testing. The classification and Diagnosis of Diabetes Diabetes Care 2021; 46: S19-S40. Current interpretive data was last revised 2022. Calcium 8.2(L) 8.5 - 10.3 mg/dL [facility] Bilirubin, total 0.7 0.1 - 1.2 mg/dL [facility] Protein, pl 6.0(L) 6.5 - 8.5 g/dL [facility] Albumin 2.9(L) 3.5 - 5.0 g/dL [facility] Alk phos 259(H) 40 - 130 Units/L [facility] ALT 77(H) 7 - 45 Units/L [facility] AST 512(H) 10 - 45 Units/L [facility] Blood 03/02/2024 7:12 PM BEDSPREAD CUTTER 03/02/2024 7:25 PM BEDSPREAD CUTTER us Krysten Cohn MD LAB BLOOD ORDERABLES Final Result [facility] [place] [address] * XR Chest 1 View (03/02/2024 5:39 PM BEDSPREAD CUTTER) Anatomical Region Laterality Modality Body, Chest N/A Computed Radiogr aphy 03/02/2024 7:36 PM BEDSPREAD CUTTER Impressions 03/02/2024 7:36 PM BEDSPREAD CUTTER The current study is compared with the prior radiograph dated 03/01/2024. Right internal jugular central venous catheter tip projects over the superior vena cava. The lungs are clear. There is no focal consolidation, pleural effusion, or pulmonary edema. There is no pneumothorax. Heart size and mediastinal contours are normal. Electronically signed by: Panda Vasquez MD, PHD Narrative 03/02/2024 7:36 PM BEDSPREAD CUTTER EXAMINATION: 1 view chest radiograph Procedure Note Panda Vasquez MD PhD - 03/02/2024 EXAMINATION: 1 view chest radiograph IMPRESSION: The current study is compared with the prior radiograph dated 03/01/2024. Right internal jugular central venous catheter tip projects over the superior vena cava. The lungs are clear. There is no focal consolidation, pleural effusion, or pulmonary edema. There is no pneumothorax. Heart size and mediastinal contours are normal. Electronically signed by: Panda Vasquez MD, PHD us Krysten Cohn MD IMG XR PROCEDURES Fin al Result * Critical Care (03/02/2024 5:11 PM BEDSPREAD CUTTER) Narrative Luis Alberto Maya MD PhD - 03/02/2024 5:11 PM BEDSPREAD CUTTER Luis Alberto Maya MD PhD 03/02/2024 5:13 PM Critical Care Performed by: Luis Alberto Maya MD PhD Authorized by: Luis Alberto Maya MD PhD CRITICAL CARE: Team: SICU RED Shift: AM Level of Billing: Critical Care My time spent with this patient was 50 minutes: Critical Provider Statement: I have seen and examined the patient on this day of service. I have reviewed and confirmed the history, physical exam, laboratory and radiologic data as documented in the signed ICU note. I have reviewed and discussed my treatment plan with the ICU team and other medical/transportation sales consultant staff, making frequent assessments and decisions regarding this patient's complex medical care. Critical Care time was exclusive of time spent performing separately billed procedures, treating other patients, and teaching. This time was in addition to and separate from critical care provided by other practitioners in my group on this day of service. Critical Care was necessary to treat or prevent imminent or life-threatening deterioration of the following conditions: Encephalopathy/altered mental status and Acute pain/acute postoperative pain Acute hypercarbic respiratory failure Acute kidney injury This time was spent by me doing the following: Acute pain control and Administration of sedatives and psychotropic medications Active and frequent reassessment of respiratory status and oxygen requirements and Incentive spirometry, pulmonary toilet Active and frequent monitoring of intake/output and volumen status Active diuresis I spent time reviewing and interpreting data from bedside monitors, laboratory results, and imaging, I spent time discussing the management of this critically ill patient with consultants and the medical staff and I spent time documenting in the medical record us Luis Alberto Maya MD PhD IN CLINIC/BEDSIDE ORDERABLES Final Result * POCT glucose (03/02/2024 3:14 PM BEDSPREAD CUTTER) Glucose, POC 129 70 - 199 mg/dL Blood 03/02/2024 3:14 PM BEDSPREAD CUTTER 03/02/2024 3:14 PM BEDSPREAD CUTTER us Krysten Cohn MD LAB POCT ORDERABLES - DEVICE Final Result Performing Organization Address City/[facility]/ZIP Co de Phone Number [facility] [place] [address] * eGFR (03/02/2024 2:19 PM BEDSPREAD CUTTER) eGFR 68 >=60 mL/min/1. 73 m2 Comment: Interpretive Data Reference Interval Normal >/= 90 mL/min/1.73m2 Mildly decreased* 60 - 89 mL/min/1.73m2 Mildly to moderately decreased 45 - 59 mL/min/1.73m2 Moderately to severely decreased 30 - 44 mL/min/1.73m2 Severely decreased 15 - 29 mL/min/1.73m2 Kidney Failure < 15 mL/min/1.73m2 *Relative to young adult level Estimated glomerular filtration rate is determined by the 2020 CKD-EPI equation recommended by the National Kidney Foundation (A Unifying Approach to GFR Estimation: Recommendations of the NKF-ASK Task Force on Reassessing the Inclusion of Race in Diagnosing Kidney Disease, JASN 2020). The CKD-EPI equation should not be used for patients with unstable renal function and has not been validated in children and those over 70. Current interpretive data was last reviewed 2021. Blood 03/02/2024 2:19 PM BEDSPREAD CUTTER 03/02/2024 2:34 PM BEDSPREAD CUTTER us Fatmata Golden NP LAB BLOOD ORDERABLES Final Result [facility] [place] [place] [address] * Phosphorus (03/02/2024 2:19 PM BEDSPREAD CUTTER) [facility] Phosphorus, pl 2.4 2.3 - 4.5 mg/dL Blood 03/02/2024 2:19 PM BEDSPREAD CUTTER 03/02/2024 2:34 PM BEDSPREAD CUTTER Fatmata Golden PHARMACY INFORMATICS SPECIALIST LAB BLOOD ORDERABLES Final Result Performing Organization Address [facility] Co de Phone Number [facility] [place] [address] * Magnesium (03/02/2024 2:19 PM BEDSPREAD CUTTER) [facility] Magnesium 1.9 1.4 - 2.5 mg/dL Blood 03/02/2024 2:19 PM BEDSPREAD CUTTER 03/02/2024 2:34 PM BEDSPREAD CUTTER Fatmata Golden PHARMACY INFORMATICS SPECIALIST LAB BLOOD ORDERABLES Final Result Performing Organization Address [facility] Co de Phone Number [facility] [place] [place] [address] * (ABNORMAL) Basic metabolic panel (03/02/2024 2:19 PM BEDSPREAD CUTTER) [facility] Sodium 140 135 - 145 mmol/L Potassium, pl 3.5 3.3 - 4.9 mmol/L [facility] Chloride 98 97 - 110 mmol/L [facility] CO2 29 22 - 32 mmol/L [facility] Anion gap 13 2 - 15 mmol/L [facility] BUN 40(H) 6 - 25 mg/dL [facility] Creatinine 0.98 0.60 - 1.10 mg/dL [facility] Glucose 133 70 - 199 mg/dL [facility] Comment: Interpretive Data Fasting glucose >/= 126 mg/dl is diagnostic for diabetes. Fasting is defined as no caloric intake for at least 8 hours. Fasting glucose between 100 mg/dl to 125 mg/dl is diagnostic of prediabetes. In a patient with classic symptoms of hyperglycemia or hyperglycemic crisis, a random glucose >/= 200 mg/dl is diagnostic for diabetes. In the absence of unequivocal hyperglycemia, results should be confirmed by repeat testing. The classification and Diagnosis of Diabetes Diabetes Care 2021; 46: S19-S40. Current interpretive data was last revised 2022. Calcium 8.3(L) 8.5 - 10.3 mg/dL [facility] Blood 03/02/2024 2:19 PM BEDSPREAD CUTTER 03/02/2024 2:34 PM BEDSPREAD CUTTER us Fatmata Golden NP LAB BLOOD ORDERABLES Final Result Performing Organization Address City/[facility] Co de Phone Number [facility] [place] [address] * POCT glucose (03/02/2024 11:11 AM BEDSPREAD CUTTER) Glucose, POC 106 70 - 199 mg/dL Blood 03/02/2024 11:1 1 AM BEDSPREAD CUTTER 03/02/2024 11:11 AM BEDSPREAD CUTTER us Krysten Cohn MD LAB POCT ORDERABLES - DEVICE Final Result Performing Organization Address [facility] Co de Phone Number [facility] [place] [address] * (ABNORMAL) Blood gas, venous (03/02/2024 8:14 AM BEDSPREAD CUTTER) pH, Venous 7.47(H) 7.32 - 7.43 PCO2, Venous 36(L) 40 - 50 mmHg [facility] PO2, Venous 36 mmHg [facility] Comment: Interpretive Data No Reference Range Established Current Interpretive Data was last revised on 2017. HCO3 Venous, Calculated 27 20 - 30 mmol/L [facility] BE, venous 3 mmol/L [facility] Comment: Interpretive Data No Reference Range Established Current Interpretive Data was last revised on 2017. Blood 03/02/2024 8:14 AM BEDSPREAD CUTTER 03/02/2024 8:20 AM BEDSPREAD CUTTER us Krysten Cohn MD LAB BLOOD ORDERABLES Final Result Performing Organization Address City/[facility]/ZIP Co de [facility] [place] [address] * POCT glucose (03/02/2024 7:19 AM BEDSPREAD CUTTER) Glucose, POC 116 70 - 199 mg/dL Blood 03/02/2024 7:19 AM BEDSPREAD CUTTER 03/02/2024 7:19 AM BEDSPREAD CUTTER us Krysten Cohn MD LAB POCT ORDERABLES - DEVICE Final Result Performing Organization Address [facility] Co de Phone Number [facility] [place] [address] * (ABNORMAL) Pro B-type natriuretic peptide (03/02/2024 5:12 AM BEDSPREAD CUTTER) NT-proBNP 22,554(H) <=300 pg/mL Comment: Interpretive Comments: A. Dyspnea in Acute Care Setting All Ages: < 300 pg/ml, acute heart failure unlikely. < 50 yrs: 300 - 450 pg/ml, further investigation warranted. > 450 pg/ml, acute heart failure likely. 50 - 74 yrs: 300 - 900 pg/ml, further investigation warranted. > 900 pg/ml, acute heart failure likely . > or = 75 yrs: 450 - 1800 pg/ml, further investigation warranted. > 1800 pg/ml, acute heart failure likely. B. Non-acute Setting < 75 yrs < 125 pg/ml, rules out heart failure. > or = 125 pg/ml, further investigation warranted. > or = 75 yrs < 450 pg/ml, rules out heart failure. > or = 450 pg/ml, further investigation warranted. - Knowledge of each individual patient's NT-proBNP range may be more useful than using similar cut-points for every patient. Please note that marked elevations in NT-proBNP levels may be observed in state other than Left Ventricular Congestive Failure, including: acute coronary syndromes, right heart strain/failure (including pulmonary embolism and cor pulmonale), critical illness, renal failure, as well as advanced age. - References: 1. Sammie STONE et.al. Eur Heart J. 2006:27:330-337. 2. Caleb RW, Rashel SAMPSON. J. AM Sierra Cardiol: Cardiovasc Imag. 2009;2: 216- 225. Interpretive Data Last Revised Date: 2017. Blood 03/02/2024 5:12 AM BEDSPREAD CUTTER 03/02/2024 5:34 AM BEDSPREAD CUTTER us Angelica ADAMS LAB BLOOD ORDERABLE S Final Result Performing Organization Address City/[facility] Co de Phone Number [facility] [place] [address] * POCT glucose (03/02/2024 3:09 AM BEDSPREAD CUTTER) [facility] Signature Glucose, POC 107 70 - 199 mg/dL Blood 03/02/2024 3:09 AM BEDSPREAD CUTTER 03/02/2024 3:09 AM BEDSPREAD CUTTER us Krysten Cohn MD LAB POCT ORDERABLES - DEVICE Final Result Performing Organization Address City/[facility] Co de Phone Number [facility] [place] [address] * Critical Care (03/01/2024 11:50 PM BEDSPREAD CUTTER) Narrative Gloria Schwarz MD - 03/01/2024 11:50 PM BEDSPREAD CUTTER Gloria Schwarz MD 03/01/2024 11:53 PM Critical Care Performed by: Gloria Schwarz MD Authorized by: Gloria Schwarz MD CRITICAL CARE: Team: SICU RED Shift: PM Level of Billing: Critical Care My time spent with this patient was 30 minutes: Critical Provider Statement: I have seen and examined the patient on this day of service. I have reviewed and confirmed the history, physical exam, laboratory and radiologic data as documented in the signed ICU note. I have reviewed and discussed my treatment plan with the ICU team and other medical/transportation sales consultant staff, making frequent assessments and decisions regarding this patient's complex medical care. Critical Care time was exclusive of time spent performing separately billed procedures, treating other patients, and teaching. This time was in addition to and separate from critical care provided by other practitioners in my group on this day of service. Critical Care was necessary to treat or prevent imminent or life-threatening deterioration of the following conditions: Acute delirium, Encephalopathy/altered mental status, Agitation requiring sedation and Acute pain/acute postoperative pain Acute respiratory insufficiency Acute kidney injury This time was spent by me doing the following: Serial bedside patient exams Acute pain control and Active titration of continuous sedation Active and frequent reassessment of respiratory status and oxygen requirements and Inhaled pulmonary vasodilator administration/titration I spent time reviewing and interpreting data from bedside monitors, laboratory results, and imaging, I spent time discussing the management of this critically ill patient with consultants and the medical staff and I spent time documenting in the medical record us Gloria Schwarz MD IN CLINIC/BEDSIDE ORDER DELFINA Final Result * POCT glucose (03/01/2024 11:14 PM BEDSPREAD CUTTER) Glucose, POC 133 70 - 199 mg/dL Blood 03/01/2024 11:1 4 PM BEDSPREAD CUTTER 03/01/2024 11:14 PM BEDSPREAD CUTTER us Krysten Cohn MD LAB POCT ORDERABLES - DEVICE Final Result [facility] [place] [address] * (ABNORMAL) eGFR (03/01/2024 8:36 PM BEDSPREAD CUTTER) eGFR 58(L) >=60 mL/min/1. 73 m2 Comment: Interpretive Data Reference Interval Normal >/= 90 mL/min/1.73m2 Mildly decreased* 60 - 89 mL/min/1.73m2 Mildly to moderately decreased 45 - 59 mL/min/1.73m2 Moderately to severely decreased 30 - 44 mL/min/1.73m2 Severely decreased 15 - 29 mL/min/1.73m2 Kidney Failure < 15 mL/min/1.73m2 *Relative to young adult level Estimated glomerular filtration rate is determined by the 2020 CKD-EPI equation recommended by the National Kidney Foundation (A Unifying Approach to GFR Estimation: Recommendations of the NKF-ASK Task Force on Reassessing the Inclusion of Race in Diagnosing Kidney Disease, JASN 202). The CKD-EPI equation should not be used for patients with unstable renal function and has not been validated in children and those over 70. Current interpretive data was last reviewed 2021. Blood 03/01/2024 8:36 PM BEDSPREAD CUTTER 03/01/2024 10:04 PM BEDSPREAD CUTTER us Krysten Cohn MD LAB BLOOD ORDERABLES Final Result [facility] [place] [address] * (ABNORMAL) Differential, auto (03/01/2024 8:36 PM BEDSPREAD CUTTER) Neutrophil abs 12.5(H) 1.5 - 6.5 K/cumm Imm gran abs 3.1(H) 0.0 - 0.1 K/cumm [facility] Lymphocyte abs 2.4 0.8 - 3.3 K/cumm [facility] Monocyte abs 1.6(H) 0.2 - 0.8 K/cumm [facility] Eosinophil abs 0.1 0.0 - 0.5 K/cumm [facility] Basophil abs 0.1 0.0 - 0.1 K/cumm [facility] Neutrophil pct 63.5 % [facility] Comment: Interpretive Data Percent cell count reference ranges are not reported, since discordance with absolute values may lead to misinterpretation of CBC data. Current Interpretive Data was last revised on 2017. Imm gran pct 15.9 % [facility] Comment: Interpretive Data Percent cell count reference ranges are not reported, since discordance with absolute values may lead to misinterpretation of CBC data. Current Interpretive Data was last revised on 2017. Lymphocyte pct 12.0 % [facility] Comment: Interpretive Data Percent cell count reference ranges are not reported, since discordance with absolute values may lead to misinterpretation of CBC data. Current Interpretive Data was last revised on 2017. Monocyte pct 8.0 % [facility] Comment: Interpretive Data Percent cell count reference ranges are not reported, since discordance with absolute values may lead to misinterpretation of CBC data. Current Interpretive Data was last revised on 2017. Eosinophil pct 0.3 % [facility] Comment: Interpretive Data Percent cell count reference ranges are not reported, since discordance with absolute values may lead to misinterpretation of CBC data. Current Interpretive Data was last revised on 2017. Basophil pct 0.3 % [facility] Comment: Interpretive Data Percent cell count reference ranges are not reported, since discordance with absolute values may lead to misinterpretation of CBC data. Current Interpretive Data was last revised on 2017. Blood 03/01/2024 8:36 PM BEDSPREAD CUTTER 03/01/2024 9:58 PM BEDSPREAD CUTTER us Krysten Cohn MD LAB BLOOD ORDERABLES Final Result [facility] [place] [address] * (ABNORMAL) CBC with auto differential (03/01/2024 8:36 PM BEDSPREAD CUTTER) WBC 19.6(H) 3.8 - 9.9 K/cumm Hgb 8.8(L) 11.9 - 15.5 g/dL [facility] Hct 27.6(L) 35.6 - 45.5 % [facility] Plt 163 150 - 400 K/cumm [facility] MPV 10.8 9.1 - 12.3 fL [facility] RBC 2.66(L) 3.90 - 5.20 M/cumm [facility] MCV 103.8(H) 81.3 - 96.4 fL [facility] MCH 33.1 27.1 - 33.3 pg [facility] MCHC 31.9(L) 32.3 - 35.7 g/dL [facility] RDW CV 15.4(H) 11.1 - 14.9 % [facility] RDW SD 57.7(H) 35.7 - 48.1 fL [facility] NRBC abs 0.10(H) 0.00 - 0.01 K/cumm [facility] Blood 03/01/2024 8:36 PM BEDSPREAD CUTTER 03/01/2024 9:58 PM BEDSPREAD CUTTER Krysten Cohn MD LAB BLOOD ORDERABLES Final Result Performing Organization Address [facility] de Phone Number [facility] [place] [address] * (ABNORMAL) Protime-INR (03/01/2024 8:36 PM BEDSPREAD CUTTER) PT 18.4(H) 9.7 - 13.0 sec INR 1.69(H) 0.90 - 1.20 [facility] Comment: Interpretive data Oral anticoagulant therapeutic ranges: Venous thromboembolism prophylaxis or treatment: 2.0-3.0 CARDIOLOGY Standard range: 2.0-3.0 High-intensity range: 2.5-3.5 Refer to indication-specific guidelines for appropriate target ranges for prosthetic heart valve replacement. Current interpretive data was last revised on 2019. Blood 03/01/2024 8:36 PM BEDSPREAD CUTTER 03/01/2024 10:01 PM BEDSPREAD CUTTER Krysten Cohn MD LAB BLOOD ORDERABLES Final Result Performing Organization Address [facility] Co de Phone Number [facility] [place] [address] * (ABNORMAL) Phosphorus (03/01/2024 8:36 PM BEDSPREAD CUTTER) Phosphorus, pl 1.9(L) 2.3 - 4.5 mg/dL Blood 03/01/2024 8:36 PM BEDSPREAD CUTTER 03/01/2024 9:56 PM BEDSPREAD CUTTER Krysten Cohn MD LAB BLOOD ORDERABLES Final Result Performing Organization Address City/[facility]/ZIP Co de Phone Number [facility] [place] [address] * Magnesium (03/01/2024 8:36 PM BEDSPREAD CUTTER) Pathologist [facility] Magnesium 1.6 1.4 - 2.5 mg/dL Blood 03/01/2024 8:36 PM BEDSPREAD CUTTER 03/01/2024 9:56 PM BEDSPREAD CUTTER Krysten Cohn MD LAB BLOOD ORDERABLES Final Result Performing Organization Address [facility] de Phone Number [facility] [place] [address] * Blood gas, venous (03/01/2024 8:36 PM BEDSPREAD CUTTER) pH, Venous 7.42 7.32 - 7.43 PCO2, Venous 44 40 - 50 mmHg [facility] PO2, Venous 35 mmHg [facility] Comment: Interpretive Data No Reference Range Established Current Interpretive Data was last revised on 2017. HCO3 Venous, Calculated 30 20 - 30 mmol/L [facility] BE, venous 4 mmol/L [facility] Comment: Interpretive Data No Reference Range Established Current Interpretive Data was last revised on 2017. Blood 03/01/2024 8:36 PM BEDSPREAD CUTTER 03/01/2024 10:07 PM BEDSPREAD CUTTER Krysten Cohn MD LAB BLOOD ORDERABLES Final Result Performing Organization Address City/[facility] Co de Phone Number [facility] [place] [address] * (ABNORMAL) Comprehensive metabolic panel (03/01/2024 8:36 PM BEDSPREAD CUTTER) Sodium 139 135 - 145 mmol/L Potassium, pl 3.4 3.3 - 4.9 mmol/L [facility] Chloride 99 97 - 110 mmol/L [facility] CO2 28 22 - 32 mmol/L [facility] Anion gap 12 2 - 15 mmol/L [facility] BUN 39(H) 6 - 25 mg/dL [facility] Creatinine 1.12(H) 0.60 - 1.10 mg/dL [facility] Glucose 114 70 - 199 mg/dL [facility] Comment: Interpretive Data Fasting glucose >/= 126 mg/dl is diagnostic for diabetes. Fasting is defined as no caloric intake for at least 8 hours. Fasting glucose between 100 mg/dl to 125 mg/dl is diagnostic of prediabetes. In a patient with classic symptoms of hyperglycemia or hyperglycemic crisis, a random glucose >/= 200 mg/dl is diagnostic for diabetes. In the absence of unequivocal hyperglycemia, results should be confirmed by repeat testing. The classification and Diagnosis of Diabetes Diabetes Care 2021; 46: S19-S40. Current interpretive data was last revised 2022. Calcium 8.6 8.5 - 10.3 mg/dL [facility] Bilirubin, total 0.7 0.1 - 1.2 mg/dL [facility] Protein, pl 6.0(L) 6.5 - 8.5 g/dL [facility] Albumin 2.6(L) 3.5 - 5.0 g/dL [facility] Alk phos 270(H) 40 - 130 Units/L [facility] ALT 65(H) 7 - 45 Units/L [facility] AST 440(H) 10 - 45 Units/L [facility] Blood 03/01/2024 8:36 PM BEDSPREAD CUTTER 03/01/2024 9:56 PM BEDSPREAD CUTTER us Krysten Cohn MD LAB BLOOD ORDERABLES Final Result [facility] [place] [address] * XR Chest 1 View (03/01/2024 7:53 PM BEDSPREAD CUTTER) Anatomical Region Laterality Modality Body, Chest N/A Computed Radiogr aphy 03/02/2024 7:36 AM BEDSPREAD CUTTER Impressions 03/02/2024 11:01 AM BEDSPREAD CUTTER The current study is compared with the chest radiograph dated 02/29/2024. Right internal jugular approach central venous catheter terminates in the superior vena cava. Partially imaged reverse right shoulder arthroplasty. Unchanged elevation of the right hemidiaphragm. Interval increase in now bibasilar mild atelectasis. No definite pleural effusion. No pneumothorax. Unchanged mild enlargement of the cardiac silhouette. Calcified right hilar lymph node. Dictated by: Antonio Mcdonald M.D. The radiology attending physician has personally reviewed this study, and had reviewed and/or edited this written report and agrees with it. Electronically signed by: Nolberto Garsia M.D. Narrative 03/02/2024 11:01 AM BEDSPREAD CUTTER EXAMINATION: 1 view chest radiograph Procedure Note Nolberto Garsia MD - 03/02/2024 EXAMINATION: 1 view chest radiograph IMPRESSION: The current study is compared with the chest radiograph dated 02/29/2024. Right internal jugular approach central venous catheter terminates in the superior vena cava. Partially imaged reverse right shoulder arthroplasty. Unchanged elevation of the right hemidiaphragm. Interval increase in now bibasilar mild atelectasis. No definite pleural effusion. No pneumothorax. Unchanged mild enlargement of the cardiac silhouette. Calcified right hilar lymph node. Dictated by: Antonio Mcdonald M.D. The radiology attending physician has personally reviewed this study, and had reviewed and/or edited this written report and agrees with it. Electronically signed by: Nolberto Garsia M.D. us Krysten Cohn MD IMG XR PROCEDURES Fin al Result * POCT glucose (03/01/2024 7:11 PM BEDSPREAD CUTTER) Glucose, POC 111 70 - 199 mg/dL Blood 03/01/2024 7:11 PM BEDSPREAD CUTTER 03/01/2024 7:11 PM BEDSPREAD CUTTER Krysten Cohn MD LAB POCT ORDERABLES - DEVICE Final Result [facility] [place] [address] * (ABNORMAL) Troponin I high-sensitivity 6-hour (03/01/2024 4:21 PM BEDSPREAD CUTTER) Trop I hs 255(C) <=17 ng/L Comment: Previous critical value noted within 48 hours ago. Interpretive Data For further hscTnI resources including the diagnostic algorithm and an aid in interpretation, copy and paste this link: [email or web address].org/show/[email or web address] Current Interpretive Data last revised 2019. Trop I hs pct delta -22(C) % [facility] Trop I hs interp Significa nt(C) [facility] Blood 03/01/2024 4:21 PM BEDSPREAD CUTTER 03/01/2024 4:33 PM BEDSPREAD CUTTER us Krysten Cohn MD LAB BLOOD ORDERABLES Final Result Performing Organization Address [facility] de Phone Number [facility] Department [place] [address] * (ABNORMAL) Blood gas, venous (03/01/2024 4:21 PM BEDSPREAD CUTTER) pH, Venous 7.43 7.32 - 7.43 PCO2, Venous 45 40 - 50 mmHg [facility] PO2, Venous 29 mmHg [facility] Comment: Interpretive Data No Reference Range Established Current Interpretive Data was last revised on 2017. HCO3 Venous, Calculated 31(H) 20 - 30 mmol/L [facility] BE, venous 5 mmol/L [facility] Comment: Interpretive Data No Reference Range Established Current Interpretive Data was last revised on 2017. Blood 03/01/2024 4:21 PM BEDSPREAD CUTTER 03/01/2024 4:29 PM BEDSPREAD CUTTER us Krysten Cohn MD LAB BLOOD ORDERABLES Final Result Performing Organization Address [facility] Co de Phone Number [facility] [place] [address] * POCT glucose (03/01/2024 3:18 PM BEDSPREAD CUTTER) Pathologist [facility] Glucose, POC 155 70 - 199 mg/dL Blood 03/01/2024 3:18 PM BEDSPREAD CUTTER 03/01/2024 3:18 PM BEDSPREAD CUTTER us Krysten Cohn MD LAB POCT ORDERABLES - DEVICE Final Result [facility] [place] [address] * TRANSTHORACIC ECHO (TTE) LIMITED/FOLLOW UP W LTD DOPPLER/CF W CONTRAST (03/01/2024 3:04 PM BEDSPREAD CUTTER) Pathologist [facility] LV EF 47 % CARDIOREPORT Anatomical Region Laterality Modality Ultrasound 03/01/2024 2:45 PM BEDSPREAD CUTTER Narrative 03/01/2024 4:11 PM BEDSPREAD CUTTER Patient name: Nolvia Branch Date of test: 03/01/2024 Type of test: TTE w/Doppler Hospital #: 0 Date of : 1970 (F) [employer] Supervisor: Behzad Contreras [facility] Referring Physician: KYRSTEN COHN MD Contrast Agent: 1.1 ml Optison Administered, (1.9 ml wasted). Contrast Administered by: Supervised/Interpreted by: Ang Aguilar MD Diagnosis: sob Location: [facility] Reason for test: elevated troponin MV Structure: Normal, MV Motion: Normal, Mitral Annulus: Normal AV Structure: tricuspid and is Normal, AV Motion: Normal Aotic root: Normal, TM: Normal, PV: Normal Valvular Vegetations: none seen, Mass/Thrombi: none seen RA: Normal Measurements: M-Mode Normal Aotic Root: <3.8 LA: <3.8 RV: <2.8 LV(ED): <5.7 LV(ES): Variable 2D Linear Normal Aotic Root: 3.0 cm <3.6 Ao Indexed: 1.2 cm/M2 <2.0 LA: <3.8 RV: <4.2 LV(ED): 5.4 cm <5.3 LV(ES): 4.2 cm <3.5 2D Vol. Normal Indexed Indexed Normal RA: 55.0 ml 22.0 ml/M2 9-33 LA: 73.0 ml 29.2 ml/M2 16-34 RV: <11.6 LV(ED): 213.0 ml 46-106 85.2 ml/M2 <62 LV(ES): 112.0 ml 14-42 44.8 ml/M2 <25 3D Vol. Indexed Normal LV(ED): <62 LV(ES): <24 LV EF: 47 % (Mod. Tapia's) (Normal: >=54%) LV Septum: 0.9 cm (Normal: <0.9 cm) Wall Motion Scoring (1=Normal 2=Hypo 3=Akinetic 4=Dyskin./Aneurysm 0=Not visualized) Parasternal Long Grandin:MAS=1 BAS=1 MIL=1 COY=1 Parasternal Short Grandin:MAS=1 MIS=1 OR=2 MIL=1 MAL=1 MA=1 Apical 4 Chambers:=1 MIS=1 BIS=2 BAL=1 MAL=1 AL=1 AC=1 Apical 2 Chambers:AI=1 OR=2 BI=2 BA=1 MA=1 AA=1 AC=1 LV Global Longitudinal Strain: -13% (Normal <-17%) RV Global Longitudinal Strain: LV Function: Mild Segmental reduction in LV Ejection Fraction (EF=41-51%); via modified Tapia's. RV Function: Normal Septal Motion: paradoxic Pericardial Effusion: small Atrial Septum: Normal DOPPLER/COLOR FLOW DOPPLER RESULTS: Diastolic Function: Pseudo normal Tricuspid Valve: mild TV regurgitation Pulmonic Valve: Mild NY AV Regurgitation: No AR seen AV Stenosis: AV Area: cm2 AV Pressure Gradient (mmHg): Mean: 0, Peak:0 MV Regurgitation: Mild MR MV Stenosis: MV Area: cm2 MV Pressure Gradient (mmHg): Mean: 0 MV ERO: cm Regurg. Vol.: ml/beat Regurg. Frac.: % PA Pressure: mmHg DOPPLER/COLOR FOLOW DOPPLER COMMENTS: No AR seen, Mild MR, mild TV regurgitation, Mild NY. Diastolic function: Pseudo normal CONTRAST: 1.1 ml Optison Administered, (1.9 ml wasted). SUMMARY: Midly enlagred LV size and decreased systolic function with LVEF 47%. Could not r/o hypokinesis of basal inferior and inferoseptal walker. Reduced global LV myocardial longitudinal function and strain pattern. Mild RVE with likely normal RV function. MV not well visualized. At least Mild to mod MR. Mild TR. RVSP estimate is difficult due to suboptimal doppler studies. Trace pericardial effusion. Called ICU team with the results and recoomendations. Confirmed on 03/01/2024 - 16:11:03 by Ang Aguilar MD By signing this report, the attending citizenship instructor certifies that he or she has personally supervised and interpreted the echocardiogram and has reviewed and or edited and agrees with the written comments contained within the report. Procedure Note Ang Aguilar MD PhD - 03/01/2024 Patient name: Nolvia Branch Date of test: 03/01/2024 Type of test: TTE w/[facility] #: 0 Date of : 1970 (F) [employer] Supervisor: Behzad Contreras [facility] Referring Physician: KRYSTEN COHN MD Contrast Agent: 1.1 ml Optison Administered, (1.9 ml wasted). Contrast Administered by: Supervised/Interpreted by: Ang Aguilar MD Diagnosis: sob Location: [facility] Reason for test: elevated troponin MV Structure: Normal, MV Motion: Normal, Mitral Annulus: Normal AV Structure: tricuspid and is Normal, AV Motion: Normal Aotic root: Normal, TM: Normal, PV: Normal Valvular Vegetations: none seen, Mass/Thrombi: none seen RA: Normal Measurements: M-Mode Normal Aotic Root: <3.8 LA: <3.8 RV: <2.8 LV(ED): <5.7 LV(ES): Variable 2D Linear Normal Aotic Root: 3.0 cm <3.6 Ao Indexed: 1.2 cm/M2 <2.0 LA: <3.8 RV: <4.2 LV(ED): 5.4 cm <5.3 LV(ES): 4.2 cm <3.5 2D Vol. Normal Indexed Indexed Normal RA: 55.0 ml 22.0 ml/M2 9-33 LA: 73.0 ml 29.2 ml/M2 16-34 RV: <11.6 LV(ED): 213.0 ml 46-106 85.2 ml/M2 <62 LV(ES): 112.0 ml 14-42 44.8 ml/M2 <25 3D Vol. Indexed Normal LV(ED): <62 LV(ES): <24 LV EF: 47 % (Mod. Tapia's) (Normal: >=54%) LV Septum: 0.9 cm (Normal: <0.9 cm) Wall Motion Scoring (1=Normal 2=Hypo 3=Akinetic 4=Dyskin./Aneurysm 0=Not visualized) Parasternal Long Grandin:MAS=1 BAS=1 MIL=1 COY=1 Parasternal Short Grandin:MAS=1 MIS=1 OR=2 MIL=1 MAL=1 MA=1 Apical 4 Chambers:=1 MIS=1 BIS=2 BAL=1 MAL=1 AL=1 AC=1 Apical 2 Chambers:AI=1 OR=2 BI=2 BA=1 MA=1 AA=1 AC=1 LV Global Longitudinal Strain: -13% (Normal <-17%) RV Global Longitudinal Strain: LV Function: Mild Segmental reduction in LV Ejection Fraction (EF=41-51%); via modified Tapia's. RV Function: Normal Septal Motion: paradoxic Pericardial Effusion: small Atrial Septum: Normal DOPPLER/COLOR FLOW DOPPLER RESULTS: Diastolic Function: Pseudo normal Tricuspid Valve: mild TV regurgitation Pulmonic Valve: Mild [place] AV Regurgitation: No AR seen AV Stenosis: AV Area: cm2 AV Pressure Gradient (mmHg): Mean: 0, Peak:0 MV Regurgitation: Mild MR MV Stenosis: MV Area: cm2 MV Pressure Gradient (mmHg): Mean: 0 MV ERO: cm Regurg. Vol.: ml/beat Regurg. Frac.: % PA Pressure: mmHg DOPPLER/COLOR FOLOW DOPPLER COMMENTS: No AR seen, Mild MR, mild TV regurgitation, Mild NY. Diastolic function: Pseudo normal CONTRAST: 1.1 ml Optison Administered, (1.9 ml wasted). SUMMARY: Midly enlagred LV size and decreased systolic function with LVEF 47%. Could not r/o hypokinesis of basal inferior and inferoseptal walker. Reduced global LV myocardial longitudinal function and strain pattern. Mild RVE with likely normal RV function. MV not well visualized. At least Mild to mod MR. Mild TR. RVSP estimate is difficult due to suboptimal doppler studies. Trace pericardial effusion. Called ICU team with the results and recoomendations. Confirmed on 03/01/2024 - 16:11:03 by Ang Aguilar MD By signing this report, the attending citizenship instructor certifies that he or she has personally supervised and interpreted the echocardiogram and has reviewed and or edited and agrees with the written comments contained within the report. Krysten Cohn MD CV ECHO PROCEDURES Fi nal Result * (ABNORMAL) Troponin I high-sensitivity 4-hour (03/01/2024 2:26 PM BEDSPREAD CUTTER) Trop I hs 263(C) <=17 ng/L Comment: Previous critical value noted within 48 hours ago. Interpretive Data For further hscTnI resources including the diagnostic algorithm and an aid in interpretation, copy and paste this link: [email or web address] Current Interpretive Data last revised 2019. Trop I hs pct delta -20(C) % [facility] Trop I hs interp Significa nt(C) [facility] Blood 03/01/2024 2:26 PM BEDSPREAD CUTTER 03/01/2024 2:40 PM BEDSPREAD CUTTER Krysten Cohn MD LAB BLOOD ORDERABLES Final Result [facility] [place] [address] * (ABNORMAL) Troponin I high-sensitivity 2-hour (03/01/2024 1:21 PM BEDSPREAD CUTTER) Trop I hs 294(C) <=17 ng/L Comment: Previous critical value noted within 48 hours ago. Interpretive Data For further hscTnI resources including the diagnostic algorithm and an aid in interpretation, copy and paste this link: [email or web address] Current Interpretive Data last revised 2019. Trop I hs pct delta -11(C) % [facility] Comment:Previous critical va lue noted within 48 hours ago. Trop I hs interp Significa nt(C) [facility] Comment:Previous critical va lue noted within 48 hours ago. Blood 03/01/2024 1:21 PM BEDSPREAD CUTTER 03/01/2024 1:35 PM BEDSPREAD CUTTER us Krysten Cohn MD LAB BLOOD ORDERABLES Final Result [facility] [place] [address] * US RUQ (03/01/2024 1:10 PM BEDSPREAD CUTTER) Anatomical Region Laterality Modality Abdomen N/A Ultrasound 03/01/2024 1:34 PM BEDSPREAD CUTTER Impressions 03/01/2024 2:38 PM BEDSPREAD CUTTER 1. Limited examination due to limited acoustic windows from patient positioning. 2. Hepatic steatosis. 3. Cholelithiasis. Dictated by: Jeremi Horn MD The radiology attending physician has personally reviewed this study, and had reviewed and/or edited this written report and agrees with it. Electronically signed by: Too Armenta M.D. Narrative 03/01/2024 2:38 PM BEDSPREAD CUTTER EXAMINATION: PORTABLE LIMITED ABDOMINAL SONOGRAM HISTORY: Elevated liver enzymes COMPARISON: None FINDINGS: Examination was limited due to limited acoustic windows from the patient's positioning of their right arm fixed at the side. Liver: The liver is normal in size. The echotexture is normal. The echogenicity is increased. There is no surface nodularity. No focal solid lesions are visualized. Gallbladder: The gallbladder is normal in size. There are gallstones within the gallbladder. There is no gallbladder wall thickening. Bile Duct: There is no intrahepatic bile duct dilatation. The common bile duct is not seen. Right Kidney: There is no hydronephrosis in the visualized portions of the right kidney. Pancreas: The pancreas is not well visualized due to poor acoustic windows. Procedure Note Too Armenta MD - 03/01/2024 EXAMINATION: PORTABLE LIMITED ABDOMINAL SONOGRAM HISTORY: Elevated liver enzymes COMPARISON: None FINDINGS: Examination was limited due to limited acoustic windows from the patient's positioning of their right arm fixed at the side. Liver: The liver is normal in size. The echotexture is normal. The echogenicity is increased. There is no surface nodularity. No focal solid lesions are visualized. Gallbladder: The gallbladder is normal in size. There are gallstones within the gallbladder. There is no gallbladder wall thickening. Bile Duct: There is no intrahepatic bile duct dilatation. The common bile duct is not seen. Right Kidney: There is no hydronephrosis in the visualized portions of the right kidney. Pancreas: The pancreas is not well visualized due to poor acoustic windows. IMPRESSION: 1. Limited examination due to limited acoustic windows from patient positioning. 2. Hepatic steatosis. 3. Cholelithiasis. Dictated by: Jeremi Horn MD The radiology attending physician has personally reviewed this study, and had reviewed and/or edited this written report and agrees with it. Electronically signed by: Too Armenta M.D. us Angelica ADAMS IMG US PROCEDURES F inal Result * Critical Care (03/01/2024 12:57 PM BEDSPREAD CUTTER) Narrative Andrez Moyer MD - 03/01/2024 12:57 PM BEDSPREAD CUTTER Andrez Moyer MD 03/01/2024 6:13 PM Critical Care Performed by: Andrez Moyer MD Authorized by: Andrez Moyer MD CRITICAL CARE: Team: SICU RED Shift: AM Level of Billing: Critical Care My time spent with this patient was 60 minutes: Critical Provider Statement: I have seen and examined the patient on this day of service. I have reviewed and confirmed the history, physical exam, laboratory and radiologic data as documented in the signed ICU note. I have reviewed and discussed my treatment plan with the ICU team and other medical/transportation sales consultant staff, making frequent assessments and decisions regarding this patient's complex medical care. Critical Care time was exclusive of time spent performing separately billed procedures, treating other patients, and teaching. This time was in addition to and separate from critical care provided by other practitioners in my group on this day of service. Critical Care was necessary to treat or prevent imminent or life-threatening deterioration of the following conditions: Acute delirium and Agitation requiring sedation Demand ischemia/elevated troponins This time was spent by me doing the following: Serial bedside patient exams Administration of sedatives and psychotropic medications Active and frequent reassessment of respiratory status and oxygen requirements and Incentive spirometry, pulmonary toilet Active and frequent monitoring of intake/output and volumen status Empiric broad coverage antibiotics and Review of prior or current culture/gram stain results I spent time reviewing and interpreting data from bedside monitors, laboratory results, and imaging, I spent time documenting in the medical record and I spent time discussing the management of this critically ill patient with consultants and the medical staff Andrez Moyer MD IN CLINIC/BEDSIDE ORDERABLES Fin al Result * POCT glucose (03/01/2024 11:17 AM BEDSPREAD CUTTER) Glucose, POC 158 70 - 199 mg/dL Blood 03/01/2024 11:1 7 AM BEDSPREAD CUTTER 03/01/2024 11:17 AM BEDSPREAD CUTTER Krysten Cohn MD LAB POCT ORDERABLES - DEVICE Final Result Performing Organization Address City/[facility]/ZIP Co de Phone Number [facility] [place] [address] * (ABNORMAL) Troponin I high-sensitivity series (baseline, 2hr, 4hr, 6hr) (03/01/2024 10:29 AM BEDSPREAD CUTTER) Pathologist [facility] Trop I hs 329(C) <=17 ng/L Comment: Verified Interpretive Data For further hscTnI resources including the diagnostic algorithm and an aid in interpretation, copy and paste this link: [email or web address]/[email or web address] Current Interpretive Data last revised 2019. Blood 03/01/2024 10:2 9 AM BEDSPREAD CUTTER 03/01/2024 11:47 AM BEDSPREAD CUTTER Krysten Cohn MD LAB BLOOD ORDERABLES Final Result Performing Organization Address City/[facility]/ZIP Co de Phone Number [facility] [place] [address] * Critical result callback Cardio chemistry (03/01/2024 10:29 AM BEDSPREAD CUTTER) Date Notified [id number] Time Notified 1229 [facility] Test name Trop I hs base [facility] Called/Read Back Arianna Barcenas [facility] Credentials RN [facility] Called By RIK [facility] Blood 03/01/2024 10:2 9 AM BEDSPREAD CUTTER 03/01/2024 11:47 AM BEDSPREAD CUTTER Krysten Cohn MD LAB BLOOD ORDERABLES Final Result Performing Organization Address City/[facility]/ZIP Co de Phone Number [facility] [place] [address] * (ABNORMAL) Creatine kinase (CK), total (03/01/2024 10:26 AM BEDSPREAD CUTTER) CK 222(H) 30 - 200 Units/L Blood 03/01/2024 10:2 6 AM BEDSPREAD CUTTER 03/01/2024 11:47 AM BEDSPREAD CUTTER Angelica ADAMS LAB BLOOD ORDERABLE S Final Result Performing Organization Address [facility] de Phone Number [facility] [place] [address] * Hepatitis panel, acute Blood (03/01/2024 10:23 AM BEDSPREAD CUTTER) Pathologist [facility] Hep A IgM Nonreactive Nonreactive Hep B core IgM Nonreactive Nonreactive [facility] Hep C Ab Nonreactive Nonreactive [facility] Comment:Antibodies to HCV no t detected. Does NOT exclude the possibility of recent exposure to HCV. Current interpretive data was last revised on 21 HepBsAg Nonreactive Nonreactive [facility] Blood 03/01/2024 10:2 3 AM BEDSPREAD CUTTER 03/01/2024 11:47 AM BEDSPREAD CUTTER Angelica ADAMS LAB MICROBIOLOGY - GENERAL ORDERABLES Final Result Performing Organization Address [facility]/ZIP Co de Phone Number [facility] [place] [address] * Lipase (03/01/2024 10:23 AM BEDSPREAD CUTTER) Lipase 40 10 - 99 Units/L Blood 03/01/2024 10:2 3 AM BEDSPREAD CUTTER 03/01/2024 11:47 AM BEDSPREAD CUTTER Angelica ADAMS LAB BLOOD ORDERABLE S Final Result [facility] [place] [address] * (ABNORMAL) Gamma GT (03/01/2024 10:23 AM BEDSPREAD CUTTER) GGT 216(H) 5 - 35 Units/L Blood 03/01/2024 10:2 3 AM BEDSPREAD CUTTER 03/01/2024 11:47 AM BEDSPREAD CUTTER Angelica ADAMS LAB BLOOD ORDERABLE S Final Result Performing Organization Address City/[facility] Co de Phone Number [facility] [place] [address] * (ABNORMAL) eGFR (03/01/2024 7:41 AM BEDSPREAD CUTTER) Pathologist [facility] eGFR 52(L) >=60 mL/min/1. 73 m2 Comment: Interpretive Data Reference Interval Normal >/= 90 mL/min/1.73m2 Mildly decreased* 60 - 89 mL/min/1.73m2 Mildly to moderately decreased 45 - 59 mL/min/1.73m2 Moderately to severely decreased 30 - 44 mL/min/1.73m2 Severely decreased 15 - 29 mL/min/1.73m2 Kidney Failure < 15 mL/min/1.73m2 *Relative to young adult level Estimated glomerular filtration rate is determined by the 2020 CKD-EPI equation recommended by the National Kidney Foundation (A Unifying Approach to GFR Estimation: Recommendations of the NKF-ASK Task Force on Reassessing the Inclusion of Race in Diagnosing Kidney Disease, JASN 2020). The CKD-EPI equation should not be used for patients with unstable renal function and has not been validated in children and those over 70. Current interpretive data was last reviewed 2021. Blood 03/01/2024 7:41 AM BEDSPREAD CUTTER 03/01/2024 8:02 AM BEDSPREAD CUTTER Krysten Cohn MD LAB BLOOD ORDERABLES Final Result Performing Organization Address City/[facility] Co de Phone Number [facility] One [facility] [place] [address] * (ABNORMAL) Protime-INR (03/01/2024 7:41 AM BEDSPREAD CUTTER) PT 24.8(H) 9.7 - 13.0 sec INR 2.26(H) 0.90 - 1.20 [facility] Comment: Interpretive data Oral anticoagulant therapeutic ranges: Venous thromboembolism prophylaxis or treatment: 2.0-3.0 CARDIOLOGY Standard range: 2.0-3.0 High-intensity range: 2.5-3.5 Refer to indication-specific guidelines for appropriate target ranges for prosthetic heart valve replacement. Current interpretive data was last revised on 2019. Blood 03/01/2024 7:41 AM BEDSPREAD CUTTER 03/01/2024 7:53 AM BEDSPREAD CUTTER us Krysten Cohn MD LAB BLOOD ORDERABLES Final Result Performing Organization Address City/[facility] Co de Phone Number [facility] One [facility] [place] [address] * Blood gas, venous (03/01/2024 7:41 AM BEDSPREAD CUTTER) pH, Venous 7.40 7.32 - 7.43 PCO2, Venous 45 40 - 50 mmHg [facility] PO2, Venous 39 mmHg [facility] Comment: Interpretive Data No Reference Range Established Current Interpretive Data was last revised on 2017. HCO3 Venous, Calculated 28 20 - 30 mmol/L [facility] BE, venous 2 mmol/L [facility] Comment: Interpretive Data No Reference Range Established Current Interpretive Data was last revised on 2017. Blood 03/01/2024 7:41 AM BEDSPREAD CUTTER 03/01/2024 7:46 AM BEDSPREAD CUTTER us Krysten Cohn MD LAB BLOOD ORDERABLES Final Result [facility] One [facility] [place] [address] * (ABNORMAL) Comprehensive metabolic panel (03/01/2024 7:41 AM BEDSPREAD CUTTER) Pathologist [facility] Sodium 143 135 - 145 mmol/L Potassium, pl 3.7 3.3 - 4.9 mmol/L [facility] Chloride 104 97 - 110 mmol/L [facility] CO2 27 22 - 32 mmol/L [facility] Anion gap 12 2 - 15 mmol/L [facility] BUN 38(H) 6 - 25 mg/dL [facility] Creatinine 1.23(H) 0.60 - 1.10 mg/dL [facility] Glucose 159 70 - 199 mg/dL [facility] Comment: Interpretive Data Fasting glucose >/= 126 mg/dl is diagnostic for diabetes. Fasting is defined as no caloric intake for at least 8 hours. Fasting glucose between 100 mg/dl to 125 mg/dl is diagnostic of prediabetes. In a patient with classic symptoms of hyperglycemia or hyperglycemic crisis, a random glucose >/= 200 mg/dl is diagnostic for diabetes. In the absence of unequivocal hyperglycemia, results should be confirmed by repeat testing. The classification and Diagnosis of Diabetes Diabetes Care 202; 46: S19-S40. Current interpretive data was last revised 2022. Calcium 8.3(L) 8.5 - 10.3 mg/dL [facility] Bilirubin, total 0.6 0.1 - 1.2 mg/dL [facility] Protein, pl 6.0(L) 6.5 - 8.5 g/dL [facility] Albumin 2.9(L) 3.5 - 5.0 g/dL [facility] Alk phos 275(H) 40 - 130 Units/L [facility] ALT 31 7 - 45 Units/L [facility] AST 222(H) 10 - 45 Units/L [facility] Blood 03/01/2024 7:41 AM BEDSPREAD CUTTER 03/01/2024 8:02 AM BEDSPREAD CUTTER us Krysten Cohn MD LAB BLOOD ORDERABLES Final Result Performing Organization Address City/[facility]/ZIP Co de Phone Number [facility] [place] [place] [address] * POCT glucose (03/01/2024 7:22 AM BEDSPREAD CUTTER) [facility] Glucose, POC 158 70 - 199 mg/dL Blood 03/01/2024 7:22 AM BEDSPREAD CUTTER 03/01/2024 7:22 AM BEDSPREAD CUTTER us Krysten Cohn MD LAB POCT ORDERABLES - DEVICE Final Result Performing Organization Address [facility] Co de Phone Number [facility] [place] [place] [address] * (ABNORMAL) CBC with auto differential (03/01/2024 6:40 AM BEDSPREAD CUTTER) [facility] WBC 22.4(H) 3.8 - 9.9 K/cumm Hgb 9.0(L) 11.9 - 15.5 g/dL [facility] Hct 27.6(L) 35.6 - 45.5 % [facility] Plt 162 150 - 400 K/cumm [facility] MPV 10.5 9.1 - 12.3 fL [facility] RBC 2.63(L) 3.90 - 5.20 M/cumm [facility] MCV 104.9(H) 81.3 - 96.4 fL [facility] MCH 34.2(H) 27.1 - 33.3 pg [facility] MCHC 32.6 32.3 - 35.7 g/dL [facility] RDW CV 15.3(H) 11.1 - 14.9 % [facility] RDW SD 58.5(H) 35.7 - 48.1 fL [facility] NRBC abs 0.07(H) 0.00 - 0.01 K/cumm [facility] Blood 03/01/2024 6:40 AM BEDSPREAD CUTTER 03/01/2024 6:53 AM BEDSPREAD CUTTER us Krysten Cohn MD LAB BLOOD ORDERABLES Final Result [facility] One [facility] [place] [address] * (ABNORMAL) Manual Differential (03/01/2024 6:40 AM BEDSPREAD CUTTER) Differential Manual Cells Counted 122 [facility] Neutrophil abs 16.3(H) 1.5 - 6.5 K/cumm [facility] Imm gran abs 1.5(H) 0.0 - 0.1 K/cumm [facility] Lymphocyte abs 3.1 0.8 - 3.3 K/cumm [facility] Monocyte abs 1.5(H) 0.2 - 0.8 K/cumm [facility] Neutrophil pct 72.9 % [facility] Comment: Interpretive Data Percent cell count reference ranges are not reported, since discordance with absolute values may lead to misinterpretation of CBC data. Current Interpretive Data was last revised on 2017. Lymphocyte pct 13.9 % [facility] Comment: Interpretive Data Percent cell count reference ranges are not reported, since discordance with absolute values may lead to misinterpretation of CBC data. Current Interpretive Data was last revised on 2017. Monocyte pct 6.6 % [facility] Comment: Interpretive Data Percent cell count reference ranges are not reported, since discordance with absolute values may lead to misinterpretation of CBC data. Current Interpretive Data was last revised on 2017. Metamyelocyte pct 4.1 % [facility] Myelocyte pct 2.5 % [facility] Blood 03/01/2024 6:40 AM BEDSPREAD CUTTER 03/01/2024 6:56 AM BEDSPREAD CUTTER us Krysten Cohn MD LAB BLOOD ORDERABLES Final Result Performing Organization Address City/[facility]/ZIP Co de Phone Number [facility] [place] [address] * POCT glucose (03/01/2024 3:08 AM BEDSPREAD CUTTER) Glucose, POC 140 70 - 199 mg/dL Blood 03/01/2024 3:08 AM BEDSPREAD CUTTER 03/01/2024 3:08 AM BEDSPREAD CUTTER us Krysten Cohn MD LAB POCT ORDERABLES - DEVICE Final Result Performing Organization Address City/[facility] [place] [address] * Lactate (03/01/2024 12:11 AM BEDSPREAD CUTTER) [facility] Lactate 1.7 0.7 - 2.0 mmol/L Blood 03/01/2024 12:1 1 AM BEDSPREAD CUTTER 03/01/2024 12:41 AM BEDSPREAD CUTTER us Krysten Cohn MD LAB BLOOD ORDERABLES Final Result Performing Organization Address City/[facility]/ZIP Co de Phone Number [facility] [address] * POCT glucose (02/29/2024 11:10 PM BEDSPREAD CUTTER) Glucose, POC 173 70 - 199 mg/dL Blood 02/29/2024 11:1 0 PM BEDSPREAD CUTTER 02/29/2024 11:10 PM BEDSPREAD CUTTER us Krysten Cohn MD LAB POCT ORDERABLES - DEVICE Final Result Performing Organization Address City/[facility]/ZIP Co [place] [address] * (ABNORMAL) eGFR (02/29/2024 10:33 PM BEDSPREAD CUTTER) [facility] eGFR 52(L) >=60 mL/min/1. 73 m2 Comment: Interpretive Data Reference Interval Normal >/= 90 mL/min/1.73m2 Mildly decreased* 60 - 89 mL/min/1.73m2 Mildly to moderately decreased 45 - 59 mL/min/1.73m2 Moderately to severely decreased 30 - 44 mL/min/1.73m2 Severely decreased 15 - 29 mL/min/1.73m2 Kidney Failure < 15 mL/min/1.73m2 *Relative to young adult level Estimated glomerular filtration rate is determined by the 2020 CKD-EPI equation recommended by the National Kidney Foundation (A Unifying Approach to GFR Estimation: Recommendations of the NKF-ASK Task Force on Reassessing the Inclusion of Race in Diagnosing Kidney Disease, JASN 2020). The CKD-EPI equation should not be used for patients with unstable renal function and has not been validated in children and those over 70. Current interpretive data was last reviewed 2021. Blood 02/29/2024 10:3 3 PM BEDSPREAD CUTTER 02/29/2024 10:51 PM BEDSPREAD CUTTER us Krysten Cohn MD LAB BLOOD ORDERABLES Final Result [facility] [place] [address] * (ABNORMAL) Hemoglobin and hematocrit (02/29/2024 10:33 PM BEDSPREAD CUTTER) Hgb 8.7(L) 11.9 - 15.5 g/dL Hct 26.9(L) 35.6 - 45.5 % [facility] Blood 02/29/2024 10:3 3 PM BEDSPREAD CUTTER 02/29/2024 10:51 PM BEDSPREAD CUTTER Krysten Cohn MD LAB BLOOD ORDERABLES Final Result [facility] [place] [place] [address] * (ABNORMAL) Protime-INR (02/29/2024 10:33 PM BEDSPREAD CUTTER) PT 24.0(H) 9.7 - 13.0 sec INR 2.19(H) 0.90 - 1.20 [facility] Comment: Interpretive data Oral anticoagulant therapeutic ranges: Venous thromboembolism prophylaxis or treatment: 2.0-3.0 CARDIOLOGY Standard range: 2.0-3.0 High-intensity range: 2.5-3.5 Refer to indication-specific guidelines for appropriate target ranges for prosthetic heart valve replacement. Current interpretive data was last revised on 2019. Blood 02/29/2024 10:3 3 PM BEDSPREAD CUTTER 02/29/2024 10:54 PM BEDSPREAD CUTTER Krysten Cohn MD LAB BLOOD ORDERABLES Final Result Performing Organization Address [facility] de Phone Number [facility] [place], [place] [id number] * (ABNORMAL) Blood gas, venous (02/29/2024 10:33 PM BEDSPREAD CUTTER) Pathologist [facility] pH, Venous 7.47(H) 7.32 - 7.43 PCO2, Venous 37(L) 40 - 50 mmHg [facility] PO2, Venous 38 mmHg [facility] Comment: Interpretive Data No Reference Range Established Current Interpretive Data was last revised on 2017. HCO3 Venous, Calculated 28 20 - 30 mmol/L [facility] BE, venous 3 mmol/L [facility] Comment: Interpretive Data No Reference Range Established Current Interpretive Data was last revised on 2017. Blood 02/29/2024 10:3 3 PM BEDSPREAD CUTTER 02/29/2024 10:44 PM BEDSPREAD CUTTER Krysten Cohn MD LAB BLOOD ORDERABLES Final Result Performing Organization Address [facility] Co de Phone Number [facility] [place] [address] * (ABNORMAL) Comprehensive metabolic panel (02/29/2024 10:33 PM BEDSPREAD CUTTER) Pathologist [facility] Sodium 141 135 - 145 mmol/L Potassium, pl 4.1 3.3 - 4.9 mmol/L [facility] Chloride 102 97 - 110 mmol/L [facility] CO2 25 22 - 32 mmol/L [facility] Anion gap 14 2 - 15 mmol/L [facility] BUN 32(H) 6 - 25 mg/dL [facility] Creatinine 1.23(H) 0.60 - 1.10 mg/dL [facility] Glucose 163 70 - 199 mg/dL [facility] Comment: Interpretive Data Fasting glucose >/= 126 mg/dl is diagnostic for diabetes. Fasting is defined as no caloric intake for at least 8 hours. Fasting glucose between 100 mg/dl to 125 mg/dl is diagnostic of prediabetes. In a patient with classic symptoms of hyperglycemia or hyperglycemic crisis, a random glucose >/= 200 mg/dl is diagnostic for diabetes. In the absence of unequivocal hyperglycemia, results should be confirmed by repeat testing. The classification and Diagnosis of Diabetes Diabetes Care 2021; 46: S19-S40. Current interpretive data was last revised 2022. Calcium 8.4(L) 8.5 - 10.3 mg/dL [facility] Bilirubin, total 0.8 0.1 - 1.2 mg/dL [facility] Protein, pl 6.2(L) 6.5 - 8.5 g/dL [facility] Albumin 2.4(L) 3.5 - 5.0 g/dL [facility] Alk phos 286(H) 40 - 130 Units/L [facility] ALT 23 7 - 45 Units/L [facility] AST 125(H) 10 - 45 Units/L [facility] Blood 02/29/2024 10:3 3 PM BEDSPREAD CUTTER 02/29/2024 10:51 PM BEDSPREAD CUTTER us Krysten Cohn MD LAB BLOOD ORDERABLES Final Result [facility] [place] [address] * Critical Care (02/29/2024 8:54 PM BEDSPREAD CUTTER) Narrative Gabriel Tsang MD - 02/29/2024 8:54 PM BEDSPREAD CUTTER Gabriel Tsang MD 03/01/2024 6:55 AM Critical Care Performed by: Gabriel Tsang MD Authorized by: Gabriel Tsang MD CRITICAL CARE: Team: SICU RED Shift: PM Level of Billing: Critical Care My time spent with this patient was 30 minutes: Critical Provider Statement: I have seen and examined the patient on this day of service. I have reviewed and confirmed the history, physical exam, laboratory and radiologic data as documented in the signed ICU note. I have reviewed and discussed my treatment plan with the ICU team and other medical/transportation sales consultant staff, making frequent assessments and decisions regarding this patient's complex medical care. Critical Care time was exclusive of time spent performing separately billed procedures, treating other patients, and teaching. This time was in addition to and separate from critical care provided by other practitioners in my group on this day of service. Critical Care was necessary to treat or prevent imminent or life-threatening deterioration of the following conditions: us Gabriel Tsang MD IN CLINIC/BEDSIDE [facility] Final Result * POCT glucose (02/29/2024 7:13 PM BEDSPREAD CUTTER) Glucose, POC 141 70 - 199 mg/dL Blood 02/29/2024 7:13 PM BEDSPREAD CUTTER 02/29/2024 7:13 PM BEDSPREAD CUTTER us Krysten Cohn MD LAB POCT ORDERABLES - DEVICE Final Result Performing Organization Address City/State/[facility] Co va Phone Number [facility] One [facility] [place] [address] * XR Chest 1 View (02/29/2024 6:29 PM BEDSPREAD CUTTER) Anatomical Region Laterality Modality Body, Chest N/A Computed Radiogr aphy 03/01/2024 9:18 AM BEDSPREAD CUTTER Impressions 03/01/2024 9:18 AM BEDSPREAD CUTTER Comparison is made to chest radiograph dated 02/28/2024. Right internal jugular venous approach catheter tip overlies the right brachiocephalic vein. The patient is status post right shoulder arthroplasty. Unchanged right hemidiaphragm elevation with mild right basilar atelectasis. No left lung consolidation. No pleural effusion or pneumothorax. Stable cardiomediastinal silhouette. Electronically signed by: Minnie Rivera M.D. Narrative 03/01/2024 9:18 AM BEDSPREAD CUTTER EXAMINATION: 1 view chest radiograph Procedure Note Minnie Rivera MD - 03/01/2024 EXAMINATION: 1 view chest radiograph IMPRESSION: Comparison is made to chest radiograph dated 02/28/2024. Right internal jugular venous approach catheter tip overlies the right brachiocephalic vein. The patient is status post right shoulder arthroplasty. Unchanged right hemidiaphragm elevation with mild right basilar atelectasis. No left lung consolidation. No pleural effusion or pneumothorax. Stable cardiomediastinal silhouette. Electronically signed by: Minnie Rivera M.D. us Krysten Cohn MD IMG XR PROCEDURES Fin al Result * (ABNORMAL) Lactate (02/29/2024 6:01 PM BEDSPREAD CUTTER) Pathologist [facility] Lactate 2.9(H) 0.7 - 2.0 mmol/L Blood 02/29/2024 6:01 PM BEDSPREAD CUTTER 02/29/2024 6:15 PM BEDSPREAD CUTTER us Krysetn Cohn MD LAB BLOOD ORDERABLES Final Result [facility] One [facility] [place] [address] * (ABNORMAL) Blood gas, venous (02/29/2024 6:01 PM BEDSPREAD CUTTER) pH, Venous 7.46(H) 7.32 - 7.43 PCO2, Venous 36(L) 40 - 50 mmHg [facility] PO2, Venous 34 mmHg [facility] Comment: Interpretive Data No Reference Range Established Current Interpretive Data was last revised on 2017. HCO3 Venous, Calculated 26 20 - 30 mmol/L [facility] BE, venous 2 mmol/L [facility] Comment: Interpretive Data No Reference Range Established Current Interpretive Data was last revised on 2017. Blood 02/29/2024 6:01 PM BEDSPREAD CUTTER 02/29/2024 6:10 PM BEDSPREAD CUTTER us Krysten Cohn MD LAB BLOOD ORDERABLES Final Result Performing Organization Address City/[facility]/ZIP Co va Phone Number [facility] One [facility] [place] [address] * (ABNORMAL) POC Blood Gas and Chemistries, Venous - (02/29/2024 5:47 PM BEDSPREAD CUTTER) pH, Morris POC 7.47(H) 7.32 - 7.43 pCO2, morris POC 35(L) 40 - 50 mmHg [facility] pO2, morris POC 40 mmHg [facility] Na, POC 141 135 - 145 mmol/L [facility] K POC 4.5 3.3 - 4.9 mmol/L [facility] Comment: Interpretive Data Not all point of care methods assess for hemolysis. Confirm with instrument and retest K+ if not consistent with clinical signs and symptoms. Current Interpretive Data was last revised on 2023. Cl, POC 104 97 - 110 mmol/L [facility] Ionized Ca, POC 4.52 4.50 - 5.10 mg/dL [facility] Glucose, POC 124 70 - 199 mg/dL [facility] Lactate, POC 2.6(H) 0.7 - 2.2 mmol/L [facility] O2 Sat, Morris POC (Angelica) 65 % [facility] Base excess, POC 1.9 mmol/L [facility] HCO3, Morris POC 26 20 - 30 mmol/L [facility] Hct, POC 30.0(L) 36.3 - 45.3 % [facility] Total Hb, POC 9.9(L) 11.9 - 15.5 g/dL [facility] Blood 02/29/2024 5:47 PM BEDSPREAD CUTTER 02/29/2024 5:47 PM BEDSPREAD CUTTER Krysten Cohn MD LAB POCT ORDERABLES - DEVICE Final Result Performing Organization Address [facility]/State/ZIP Co de Phone Number [facility] [place] [address] * POCT glucose (02/29/2024 3:25 PM BEDSPREAD CUTTER) Glucose, POC 144 70 - 199 mg/dL Blood 02/29/2024 3:25 PM BEDSPREAD CUTTER 02/29/2024 3:25 PM BEDSPREAD CUTTER Krysten Cohn MD LAB POCT ORDERABLES - DEVICE Final Result Performing Organization Address City/[facility] Co de Phone Number [facility] [place] [address] * Blood culture Blood (02/29/2024 2:52 PM BEDSPREAD CUTTER) Report Final Report: No growth Blood 02/29/2024 2:52 PM BEDSPREAD CUTTER 02/29/2024 3:07 PM BEDSPREAD CUTTER Narrative [facility] - 2024 4:00 PM BEDSPREAD CUTTER Collection->Peripheral 1. Blood cultures are incubated for 4 days on a continuously monitored blood culture system. The first report of a negative culture is issued within 24 hours of receipt of the specimen in the laboratory. 2. Positive culture results are reported as soon as they are detected. 3. The most important factor for detection of microbes in the setting of bloodstream infection is the volume of blood submitted for culture. Failure to collect an optimal blood volume can result in false negative blood cultures. 4. For pediatric patients, the recommended blood volume to collect follows a weight based strategy. See the electronic test catalog for collection instructions. 5. For positive blood cultures, a rapid molecular test may be performed for organism identification using the tru ePlex blood culture identification panel for gram positive (BCID-GP) and gram negative (BCID-GN) organisms. This nucleic acid amplification test detects microbial DNA in positive blood culture broth. This assay has been cleared by the [place] Food and Drug Administration and its performance characteristics have been verified by the [facility]. For questions about this culture, contact the Microbiology Laboratory at [phone]. Interpretive data was last revised on 23. us Krysten Cohn MD LAB MICROBIOLOGY - NERAL ORDERABLES Final Result MADELEINE DEY [facility] [place] [address] * Blood culture Blood (02/29/2024 2:52 PM BEDSPREAD CUTTER) Report Final Report: No growth Blood 02/29/2024 2:52 PM BEDSPREAD CUTTER 02/29/2024 3:07 PM BEDSPREAD CUTTER Narrative [facility] - 2024 4:00 PM BEDSPREAD CUTTER Collection->Peripheral 1. Blood cultures are incubated for 4 days on a continuously monitored blood culture system. The first report of a negative culture is issued within 24 hours of receipt of the specimen in the laboratory. 2. Positive culture results are reported as soon as they are detected. 3. The most important factor for detection of microbes in the setting of bloodstream infection is the volume of blood submitted for culture. Failure to collect an optimal blood volume can result in false negative blood cultures. 4. For pediatric patients, the recommended blood volume to collect follows a weight based strategy. See the electronic test catalog for collection instructions. 5. For positive blood cultures, a rapid molecular test may be performed for organism identification using the tru ePlex blood culture identification panel for gram positive (BCID-GP) and gram negative (BCID-GN) organisms. This nucleic acid amplification test detects microbial DNA in positive blood culture broth. This assay has been cleared by the [place] Food and Drug Administration and its performance characteristics have been verified by the [facility]. For questions about this culture, contact the Microbiology Laboratory at [phone]. Interpretive data was last revised on 23. us Krysten Cohn MD LAB MICROBIOLOGY - NERAL ORDERABLES Final Result Performing Organization Address [facility]/ZIP Co de Phone Number MADELEINE DEY [facility] [place] [address] * (ABNORMAL) Blood gas, venous (02/29/2024 2:22 PM BEDSPREAD CUTTER) [facility] pH, Venous 7.42 7.32 - 7.43 PCO2, Venous 38(L) 40 - 50 mmHg [facility] PO2, Venous 34 mmHg [facility] Comment: Interpretive Data No Reference Range Established Current Interpretive Data was last revised on 2017. HCO3 Venous, Calculated 25 20 - 30 mmol/L [facility] BE, venous 0 mmol/L [facility] Comment: Interpretive Data No Reference Range Established Current Interpretive Data was last revised on 2017. Blood 02/29/2024 2:22 PM BEDSPREAD CUTTER 02/29/2024 2:34 PM BEDSPREAD CUTTER us Krysten Cohn MD LAB BLOOD ORDERABLES Final Result Performing Organization Address City/[facility]/ZIP Co de Phone Number [facility] [place] [address] * POCT glucose (02/29/2024 11:11 AM BEDSPREAD CUTTER) [facility] Glucose, POC 102 70 - 199 mg/dL Blood 02/29/2024 11:1 1 AM BEDSPREAD CUTTER 02/29/2024 11:11 AM BEDSPREAD CUTTER us Krysten Cohn MD LAB POCT ORDERABLES - DEVICE Final Result Performing Organization Address City/[facility]/ZIP Co de Phone Number [facility] [place] [address] * eGFR (02/29/2024 10:58 AM BEDSPREAD CUTTER) [facility] eGFR 63 >=60 mL/min/1. 73 m2 Comment: Interpretive Data Reference Interval Normal >/= 90 mL/min/1.73m2 Mildly decreased* 60 - 89 mL/min/1.73m2 Mildly to moderately decreased 45 - 59 mL/min/1.73m2 Moderately to severely decreased 30 - 44 mL/min/1.73m2 Severely decreased 15 - 29 mL/min/1.73m2 Kidney Failure < 15 mL/min/1.73m2 *Relative to young adult level Estimated glomerular filtration rate is determined by the 2020 CKD-EPI equation recommended by the National Kidney Foundation (A Unifying Approach to GFR Estimation: Recommendations of the NKF-ASK Task Force on Reassessing the Inclusion of Race in Diagnosing Kidney Disease, JASN 2020). The CKD-EPI equation should not be used for patients with unstable renal function and has not been validated in children and those over 70. Current interpretive data was last reviewed 2021. Blood 02/29/2024 10:5 8 AM BEDSPREAD CUTTER 02/29/2024 11:20 AM BEDSPREAD CUTTER Angelica ADAMS LAB BLOOD ORDERABLE S Final Result Performing Organization Address [facility] Co de Phone Number MADELEINE [facility] [place] [address] * (ABNORMAL) Blood gas, venous (02/29/2024 10:58 AM BEDSPREAD CUTTER) pH, Venous 7.27(L) 7.32 - 7.43 PCO2, Venous 44 40 - 50 mmHg [facility] PO2, Venous 38 mmHg [facility] Comment: Interpretive Data No Reference Range Established Current Interpretive Data was last revised on 2017. HCO3 Venous, Calculated 21 20 - 30 mmol/L [facility] BE, venous -6 mmol/L [facility] Comment: Interpretive Data No Reference Range Established Current Interpretive Data was last revised on 2017. Blood 02/29/2024 10:5 8 AM BEDSPREAD CUTTER 02/29/2024 11:03 AM BEDSPREAD CUTTER us Kyrsten Cohn MD LAB BLOOD ORDERABLES Final Result Performing Organization Address [facility] Co de Phone Number [facility] [place] [address] * (ABNORMAL) Basic metabolic panel (02/29/2024 10:58 AM BEDSPREAD CUTTER) Sodium 140 135 - 145 mmol/L Potassium, pl 5.1(H) 3.3 - 4.9 mmol/L [facility] Chloride 99 97 - 110 mmol/L [facility] CO2 19(L) 22 - 32 mmol/L [facility] Anion gap 22(H) 2 - 15 mmol/L [facility] BUN 22 6 - 25 mg/dL [facility] Creatinine 1.05 0.60 - 1.10 mg/dL [facility] Glucose 99 70 - 199 mg/dL [facility] Comment: Interpretive Data Fasting glucose >/= 126 mg/dl is diagnostic for diabetes. Fasting is defined as no caloric intake for at least 8 hours. Fasting glucose between 100 mg/dl to 125 mg/dl is diagnostic of prediabetes. In a patient with classic symptoms of hyperglycemia or hyperglycemic crisis, a random glucose >/= 200 mg/dl is diagnostic for diabetes. In the absence of unequivocal hyperglycemia, results should be confirmed by repeat testing. The classification and Diagnosis of Diabetes Diabetes Care 2021; 46: S19-S40. Current interpretive data was last revised 2022. Calcium 8.7 8.5 - 10.3 mg/dL [facility] Blood 02/29/2024 10:5 8 AM BEDSPREAD CUTTER 02/29/2024 11:20 AM BEDSPREAD CUTTER Angelica ADAMS LAB BLOOD ORDERABLE S Final Result [facility] [place] [address] * eGFR (02/29/2024 8:19 AM BEDSPREAD CUTTER) eGFR 78 >=60 mL/min/1. 73 m2 Comment: Interpretive Data Reference Interval Normal >/= 90 mL/min/1.73m2 Mildly decreased* 60 - 89 mL/min/1.73m2 Mildly to moderately decreased 45 - 59 mL/min/1.73m2 Moderately to severely decreased 30 - 44 mL/min/1.73m2 Severely decreased 15 - 29 mL/min/1.73m2 Kidney Failure < 15 mL/min/1.73m2 *Relative to young adult level Estimated glomerular filtration rate is determined by the 2020 CKD-EPI equation recommended by the National Kidney Foundation (A Unifying Approach to GFR Estimation: Recommendations of the NKF-ASK Task Force on Reassessing the Inclusion of Race in Diagnosing Kidney Disease, JASN 2020). The CKD-EPI equation should not be used for patients with unstable renal function and has not been validated in children and those over 70. Current interpretive data was last reviewed 2021. Blood 02/29/2024 8:19 AM BEDSPREAD CUTTER 02/29/2024 8:36 AM BEDSPREAD CUTTER Krysten Cohn MD LAB BLOOD ORDERABLES Final Result Performing Organization Address City/[facility] Co de Phone Number [facility] [place] [address] * (ABNORMAL) Protime-INR (02/29/2024 8:19 AM BEDSPREAD CUTTER) PT 17.1(H) 9.7 - 13.0 sec INR 1.57(H) 0.90 - 1.20 [facility] Comment: Interpretive data Oral anticoagulant therapeutic ranges: Venous thromboembolism prophylaxis or treatment: 2.0-3.0 CARDIOLOGY Standard range: 2.0-3.0 High-intensity range: 2.5-3.5 Refer to indication-specific guidelines for appropriate target ranges for prosthetic heart valve replacement. Current interpretive data was last revised on 2019. Blood 02/29/2024 8:19 AM BEDSPREAD CUTTER 02/29/2024 8:29 AM BEDSPREAD CUTTER Krysten Cohn MD LAB BLOOD ORDERABLES Final Result Performing Organization Address [facility] Co de Phone Number [facility] [place] [address] * Blood gas, venous (02/29/2024 8:19 AM BEDSPREAD CUTTER) pH, Venous 7.42 7.32 - 7.43 PCO2, Venous 42 40 - 50 mmHg [facility] PO2, Venous 30 mmHg [facility] Comment: Interpretive Data No Reference Range Established Current Interpretive Data was last revised on 2017. HCO3 Venous, Calculated 28 20 - 30 mmol/L [facility] BE, venous 2 mmol/L [facility] Comment: Interpretive Data No Reference Range Established Current Interpretive Data was last revised on 2017. Blood 02/29/2024 8:19 AM BEDSPREAD CUTTER 02/29/2024 8:26 AM BEDSPREAD CUTTER us Krysten Cohn MD LAB BLOOD ORDERABLES Final Result [facility] [place] [address] * (ABNORMAL) Comprehensive metabolic panel (02/29/2024 8:19 AM BEDSPREAD CUTTER) Sodium 139 135 - 145 mmol/L Potassium, pl 4.4 3.3 - 4.9 mmol/L [facility] Chloride 101 97 - 110 mmol/L [facility] CO2 26 22 - 32 mmol/L [facility] Anion gap 12 2 - 15 mmol/L [facility] BUN 21 6 - 25 mg/dL [facility] Creatinine 0.88 0.60 - 1.10 mg/dL [facility] Glucose 118 70 - 199 mg/dL [facility] Comment: Interpretive Data Fasting glucose >/= 126 mg/dl is diagnostic for diabetes. Fasting is defined as no caloric intake for at least 8 hours. Fasting glucose between 100 mg/dl to 125 mg/dl is diagnostic of prediabetes. In a patient with classic symptoms of hyperglycemia or hyperglycemic crisis, a random glucose >/= 200 mg/dl is diagnostic for diabetes. In the absence of unequivocal hyperglycemia, results should be confirmed by repeat testing. The classification and Diagnosis of Diabetes Diabetes Care 202; 46: S19-S40. Current interpretive data was last revised 2022. Calcium 8.6 8.5 - 10.3 mg/dL [facility] Bilirubin, total 0.9 0.1 - 1.2 mg/dL [facility] Protein, pl 6.3(L) 6.5 - 8.5 g/dL [facility] Albumin 2.6(L) 3.5 - 5.0 g/dL [facility] Alk phos 300(H) 40 - 130 Units/L [facility] ALT 14 7 - 45 Units/L [facility] AST 59(H) 10 - 45 Units/L [facility] Blood 02/29/2024 8:19 AM BEDSPREAD CUTTER 02/29/2024 8:36 AM BEDSPREAD CUTTER us Krysten Cohn MD LAB BLOOD ORDERABLES Final Result [facility] [place] [address] * Critical Care (02/29/2024 7:40 AM BEDSPREAD CUTTER) Narrative Andrez Moyer MD - 02/29/2024 7:40 AM BEDSPREAD CUTTER Andrez Moyer MD 02/29/2024 7:45 AM Critical Care Performed by: Andrez Moyer MD Authorized by: Andrez Moyer MD CRITICAL CARE: Team: SICU RED Shift: AM Level of Billing: Critical Care My time spent with this patient was 45 minutes: Critical Provider Statement: I have seen and examined the patient on this day of service. I have reviewed and confirmed the history, physical exam, laboratory and radiologic data as documented in the signed ICU note. I have reviewed and discussed my treatment plan with the ICU team and other medical/transportation sales consultant staff, making frequent assessments and decisions regarding this patient's complex medical care. Critical Care time was exclusive of time spent performing separately billed procedures, treating other patients, and teaching. This time was in addition to and separate from critical care provided by other practitioners in my group on this day of service. Critical Care was necessary to treat or prevent imminent or life-threatening deterioration of the following conditions: Acute hypercarbic respiratory failure Acute kidney injury This time was spent by me doing the following: Serial bedside patient exams Active titration of continuous sedation Active and frequent reassessment of respiratory status and oxygen requirements and Non-invasive positive pressure ventilator management Active and frequent monitoring of intake/output and volumen status Empiric broad coverage antibiotics and Review of prior or current culture/gram stain results I spent time reviewing and interpreting data from bedside monitors, laboratory results, and imaging, I spent time discussing the management of this critically ill patient with consultants and the medical staff and I spent time documenting in the medical record us Andrez Moyer MD IN CLINIC/BEDSIDE ORDERABLES Fin al Result * POCT glucose (02/29/2024 7:19 AM BEDSPREAD CUTTER) Glucose, POC 135 70 - 199 mg/dL Blood 02/29/2024 7:19 AM BEDSPREAD CUTTER 02/29/2024 7:19 AM BEDSPREAD CUTTER us Krysten Cohn MD LAB POCT ORDERABLES - DEVICE Final Result Performing Organization Address City/[facility]/ZIP Co de Phone Number [facility] [place] [address] * POCT glucose (02/29/2024 3:18 AM BEDSPREAD CUTTER) Glucose, POC 188 70 - 199 mg/dL Blood 02/29/2024 3:18 AM BEDSPREAD CUTTER 02/29/2024 3:18 AM BEDSPREAD CUTTER us Krysten Cohn MD LAB POCT ORDERABLES - DEVICE Final Result Performing Organization Address City/[facility] Co de Phone Number [facility] [place] [address] * eGFR (02/28/2024 11:35 PM BEDSPREAD CUTTER) eGFR >90 >=60 mL/min/1. 73 m2 Comment: Interpretive Data Reference Interval Normal >/= 90 mL/min/1.73m2 Mildly decreased* 60 - 89 mL/min/1.73m2 Mildly to moderately decreased 45 - 59 mL/min/1.73m2 Moderately to severely decreased 30 - 44 mL/min/1.73m2 Severely decreased 15 - 29 mL/min/1.73m2 Kidney Failure < 15 mL/min/1.73m2 *Relative to young adult level Estimated glomerular filtration rate is determined by the 2020 CKD-EPI equation recommended by the National Kidney Foundation (A Unifying Approach to GFR Estimation: Recommendations of the NKF-ASK Task Force on Reassessing the Inclusion of Race in Diagnosing Kidney Disease, JASN 202). The CKD-EPI equation should not be used for patients with unstable renal function and has not been validated in children and those over 70. Current interpretive data was last reviewed 2021. Blood 02/28/2024 11:3 5 PM BEDSPREAD CUTTER 02/29/2024 12:07 AM BEDSPREAD CUTTER us Krysten Cohn MD LAB BLOOD ORDERABLES Final Result [facility] [place] [address] * (ABNORMAL) Differential, auto (02/28/2024 11:35 PM BEDSPREAD CUTTER) Neutrophil abs 11.3(H) 1.5 - 6.5 K/cumm Imm gran abs 3.3(H) 0.0 - 0.1 K/cumm [facility] Lymphocyte abs 1.8 0.8 - 3.3 K/cumm [facility] Monocyte abs 2.1(H) 0.2 - 0.8 K/cumm [facility] Eosinophil abs 0.0 0.0 - 0.5 K/cumm [facility] Basophil abs 0.1 0.0 - 0.1 K/cumm [facility] Neutrophil pct 60.5 % [facility] Comment: Confirmed by smear review Interpretive Data Percent cell count reference ranges are not reported, since discordance with absolute values may lead to misinterpretation of CBC data. Current Interpretive Data was last revised on 2017. Imm gran pct 17.8 % [facility] Comment: Interpretive Data Percent cell count reference ranges are not reported, since discordance with absolute values may lead to misinterpretation of CBC data. Current Interpretive Data was last revised on 2017. Lymphocyte pct 9.6 % [facility] Comment: Interpretive Data Percent cell count reference ranges are not reported, since discordance with absolute values may lead to misinterpretation of CBC data. Current Interpretive Data was last revised on 2017. Monocyte pct 11.3 % [facility] Comment: Interpretive Data Percent cell count reference ranges are not reported, since discordance with absolute values may lead to misinterpretation of CBC data. Current Interpretive Data was last revised on 2017. Eosinophil pct 0.2 % [facility] Comment: Interpretive Data Percent cell count reference ranges are not reported, since discordance with absolute values may lead to misinterpretation of CBC data. Current Interpretive Data was last revised on 2017. Basophil pct 0.6 % [facility] Comment: Interpretive Data Percent cell count reference ranges are not reported, since discordance with absolute values may lead to misinterpretation of CBC data. Current Interpretive Data was last revised on 2017. Blood 02/28/2024 11:3 5 PM BEDSPREAD CUTTER 02/29/2024 12:12 AM BEDSPREAD CUTTER us Krysten Cohn MD LAB BLOOD ORDERABLES Final Result [facility] [place] [address] * (ABNORMAL) CBC with auto differential (02/28/2024 11:35 PM BEDSPREAD CUTTER) WBC 18.7(H) 3.8 - 9.9 K/cumm Hgb 9.5(L) 11.9 - 15.5 g/dL [facility] Hct 30.1(L) 35.6 - 45.5 % [facility] Plt 154 150 - 400 K/cumm [facility] MPV 10.9 9.1 - 12.3 fL [facility] RBC 2.75(L) 3.90 - 5.20 M/cumm [facility] MCV 110.2(H) 81.3 - 96.4 fL [facility] MCH 34.5(H) 27.1 - 33.3 pg [facility] MCHC 31.5(L) 32.3 - 35.7 g/dL [facility] RDW CV 15.4(H) 11.1 - 14.9 % [facility] RDW SD 62.2(H) 35.7 - 48.1 fL [facility] NRBC abs 0.13(H) 0.00 - 0.01 K/cumm [facility] Blood 02/28/2024 11:3 5 PM BEDSPREAD CUTTER 02/29/2024 12:12 AM BEDSPREAD CUTTER Krysten Cohn MD LAB BLOOD ORDERABLES Final Result Performing Organization Address [facility] de Phone Number [facility] [place] [address] * (ABNORMAL) Hemoglobin and hematocrit (02/28/2024 11:35 PM BEDSPREAD CUTTER) Hgb 9.5(L) 11.9 - 15.5 g/dL Hct 30.1(L) 35.6 - 45.5 % [facility] Blood 02/28/2024 11:3 5 PM BEDSPREAD CUTTER 02/29/2024 12:09 AM BEDSPREAD CUTTER Krysten Cohn MD LAB BLOOD ORDERABLES Final Result Performing Organization Address [facility] de Phone Number [facility] [place] [address] * (ABNORMAL) Protime-INR (02/28/2024 11:35 PM BEDSPREAD CUTTER) PT 14.3(H) 9.7 - 13.0 sec INR 1.32(H) 0.90 - 1.20 [facility] Comment: Interpretive data Oral anticoagulant therapeutic ranges: Venous thromboembolism prophylaxis or treatment: 2.0-3.0 CARDIOLOGY Standard range: 2.0-3.0 High-intensity range: 2.5-3.5 Refer to indication-specific guidelines for appropriate target ranges for prosthetic heart valve replacement. Current interpretive data was last revised on 2019. Blood 02/28/2024 11:3 5 PM BEDSPREAD CUTTER 02/29/2024 12:22 AM BEDSPREAD CUTTER Krysten Cohn MD LAB BLOOD ORDERABLES Final Result Performing Organization Address City/[facility] de Phone Number [facility] [place] [address] * Blood gas, venous (02/28/2024 11:35 PM BEDSPREAD CUTTER) pH, Venous 7.36 7.32 - 7.43 PCO2, Venous 50 40 - 50 mmHg [facility] PO2, Venous 43 mmHg [facility] Comment: Interpretive Data No Reference Range Established Current Interpretive Data was last revised on 2017. HCO3 Venous, Calculated 29 20 - 30 mmol/L [facility] BE, venous 2 mmol/L [facility] Comment: Interpretive Data No Reference Range Established Current Interpretive Data was last revised on 2017. Blood 02/28/2024 11:3 5 PM BEDSPREAD CUTTER 02/28/2024 11:49 PM BEDSPREAD CUTTER Krysten Cohn MD LAB BLOOD ORDERABLES Final Result Performing Organization Address [facility] de Phone Number [facility] [place] [address] * (ABNORMAL) Comprehensive metabolic panel (02/28/2024 11:35 PM BEDSPREAD CUTTER) Pathologist [facility] Sodium 139 135 - 145 mmol/L Potassium, pl 4.0 3.3 - 4.9 mmol/L [facility] Chloride 99 97 - 110 mmol/L [facility] CO2 27 22 - 32 mmol/L [facility] Anion gap 13 2 - 15 mmol/L [facility] BUN 17 6 - 25 mg/dL [facility] Creatinine 0.71 0.60 - 1.10 mg/dL [facility] Glucose 165 70 - 199 mg/dL [facility] Comment: Interpretive Data Fasting glucose >/= 126 mg/dl is diagnostic for diabetes. Fasting is defined as no caloric intake for at least 8 hours. Fasting glucose between 100 mg/dl to 125 mg/dl is diagnostic of prediabetes. In a patient with classic symptoms of hyperglycemia or hyperglycemic crisis, a random glucose >/= 200 mg/dl is diagnostic for diabetes. In the absence of unequivocal hyperglycemia, results should be confirmed by repeat testing. The classification and Diagnosis of Diabetes Diabetes Care 2021; 46: S19-S40. Current interpretive data was last revised 2022. Calcium 8.3(L) 8.5 - 10.3 mg/dL [facility] Bilirubin, total 0.8 0.1 - 1.2 mg/dL [facility] Protein, pl 6.4(L) 6.5 - 8.5 g/dL [facility] Albumin 2.7(L) 3.5 - 5.0 g/dL [facility] Alk phos 308(H) 40 - 130 Units/L [facility] ALT 12 7 - 45 Units/L [facility] AST 38 10 - 45 Units/L [facility] Blood 02/28/2024 11:3 5 PM BEDSPREAD CUTTER 02/29/2024 12:07 AM BEDSPREAD CUTTER us Krysten Cohn MD LAB BLOOD ORDERABLES Final Result Performing Organization Address [facility]/ZIP Co de Phone Number [facility] [place] [address] * POCT glucose (02/28/2024 11:23 PM BEDSPREAD CUTTER) Glucose, POC 170 70 - 199 mg/dL Blood 02/28/2024 11:2 3 PM BEDSPREAD CUTTER 02/28/2024 11:23 PM BEDSPREAD CUTTER us Krysten Cohn MD LAB POCT ORDERABLES - DEVICE Final Result Performing Organization Address City/[facility]/ZIP Co de Phone Number [facility] [place] [address] * POCT glucose (02/28/2024 7:25 PM BEDSPREAD CUTTER) Glucose, POC 149 70 - 199 mg/dL Blood 02/28/2024 7:25 PM BEDSPREAD CUTTER 02/28/2024 7:25 PM BEDSPREAD CUTTER us Krysten Cohn MD LAB POCT ORDERABLES - DEVICE Final Result [facility] [place] [address] * Critical Care (02/28/2024 6:37 PM BEDSPREAD CUTTER) Narrative Gabriel Tsang MD - 02/28/2024 6:37 PM BEDSPREAD CUTTER Gabriel Tsang MD 02/29/2024 8:44 PM Critical Care Performed by: Gabriel Tsang MD Authorized by: Gabriel Tsang MD CRITICAL CARE: Team: SICU RED Shift: PM Level of Billing: Critical Care My time spent with this patient was 30 minutes: Critical Provider Statement: I have seen and examined the patient on this day of service. I have reviewed and confirmed the history, physical exam, laboratory and radiologic data as documented in the signed ICU note. I have reviewed and discussed my treatment plan with the ICU team and other medical/transportation sales consultant staff, making frequent assessments and decisions regarding this patient's complex medical care. Critical Care time was exclusive of time spent performing separately billed procedures, treating other patients, and teaching. This time was in addition to and separate from critical care provided by other practitioners in my group on this day of service. Critical Care was necessary to treat or prevent imminent or life-threatening deterioration of the following conditions: us Gabriel Tsang MD IN CLINIC/BEDSIDE JM OSIRIS Final Result * XR Chest 1 View (02/28/2024 6:12 PM BEDSPREAD CUTTER) Anatomical Region Laterality Modality Body, Chest N/A Computed Radiogr aphy 02/29/2024 10:4 2 AM BEDSPREAD CUTTER Impressions 02/29/2024 12:05 PM BEDSPREAD CUTTER Comparison made to chest radiograph dated 02/27/2024. 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 Right internal jugular central venous catheter overlies the brachiocephalic confluence. Small lung volumes with mildly increased right basilar atelectasis. Unchanged mild elevation right hemidiaphragm. Decreased airspace opacities in the right greater than left lung compatible with improving pulmonary edema. No pleural effusion or pneumothorax. Cardiomediastinal silhouette is unchanged. Dictated by: Sharath Sun MD The radiology attending physician has personally reviewed this study, and had reviewed and/or edited this written report and agrees with it. Electronically signed by: Jason Lucia M.D. Narrative 02/29/2024 12:05 PM BEDSPREAD CUTTER EXAMINATION: 1 view chest radiograph Procedure Note Jason Lucia MD - 02/29/2024 EXAMINATION: 1 view chest radiograph IMPRESSION: Comparison made to chest radiograph dated 02/27/2024. 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 Right internal jugular central venous catheter overlies the brachiocephalic confluence. Small lung volumes with mildly increased right basilar atelectasis. Unchanged mild elevation right hemidiaphragm. Decreased airspace opacities in the right greater than left lung compatible with improving pulmonary edema. No pleural effusion or pneumothorax. Cardiomediastinal silhouette is unchanged. Dictated by: Sharath Sun MD The radiology attending physician has personally reviewed this study, and had reviewed and/or edited this written report and agrees with it. Electronically signed by: Jason Lucia M.D. Krysten Cohn MD IMG XR PROCEDURES Fin al Result * POCT glucose (02/28/2024 3:23 PM BEDSPREAD CUTTER) Glucose, POC 148 70 - 199 mg/dL Blood 02/28/2024 3:23 PM BEDSPREAD CUTTER 02/28/2024 3:23 PM BEDSPREAD CUTTER us Krysten Cohn MD LAB POCT ORDERABLES - DEVICE Final Result [facility] [place] [address] * POCT glucose (02/28/2024 11:12 AM BEDSPREAD CUTTER) Glucose, POC 106 70 - 199 mg/dL Blood 02/28/2024 11:1 2 AM BEDSPREAD CUTTER 02/28/2024 11:12 AM BEDSPREAD CUTTER us Krysten Cohn MD LAB POCT ORDERABLES - DEVICE Final Result Performing Organization Address [facility] de Phone Number [facility] [place] [address] * eGFR (02/28/2024 9:35 AM BEDSPREAD CUTTER) eGFR 68 >=60 mL/min/1. 73 m2 Comment: Interpretive Data Reference Interval Normal >/= 90 mL/min/1.73m2 Mildly decreased* 60 - 89 mL/min/1.73m2 Mildly to moderately decreased 45 - 59 mL/min/1.73m2 Moderately to severely decreased 30 - 44 mL/min/1.73m2 Severely decreased 15 - 29 mL/min/1.73m2 Kidney Failure < 15 mL/min/1.73m2 *Relative to young adult level Estimated glomerular filtration rate is determined by the 2020 CKD-EPI equation recommended by the National Kidney Foundation (A Unifying Approach to GFR Estimation: Recommendations of the NKF-ASK Task Force on Reassessing the Inclusion of Race in Diagnosing Kidney Disease, JASN 2020). The CKD-EPI equation should not be used for patients with unstable renal function and has not been validated in children and those over 70. Current interpretive data was last reviewed 2021. Blood 02/28/2024 9:35 AM BEDSPREAD CUTTER 02/28/2024 9:58 AM BEDSPREAD CUTTER us Krysten Cohn MD LAB BLOOD ORDERABLES Final Result Performing Organization Address [facility] Co de Phone Number [facility] [place] [address] * (ABNORMAL) Protime-INR (02/28/2024 9:35 AM BEDSPREAD CUTTER) PT 14.4(H) 9.7 - 13.0 sec INR 1.33(H) 0.90 - 1.20 [facility] Comment: Interpretive data Oral anticoagulant therapeutic ranges: Venous thromboembolism prophylaxis or treatment: 2.0-3.0 CARDIOLOGY Standard range: 2.0-3.0 High-intensity range: 2.5-3.5 Refer to indication-specific guidelines for appropriate target ranges for prosthetic heart valve replacement. Current interpretive data was last revised on 2019. Blood 02/28/2024 9:35 AM BEDSPREAD CUTTER 02/28/2024 9:49 AM BEDSPREAD CUTTER Krysten Cohn MD LAB BLOOD ORDERABLES Final Result Performing Organization Address [facility] Co de Phone Number [facility] [place] [address] * (ABNORMAL) Blood gas, venous (02/28/2024 9:35 AM BEDSPREAD CUTTER) Pathologist [facility] pH, Venous 7.35 7.32 - 7.43 PCO2, Venous 53(H) 40 - 50 mmHg [facility] PO2, Venous 40 mmHg [facility] Comment: Interpretive Data No Reference Range Established Current Interpretive Data was last revised on 2017. HCO3 Venous, Calculated 31(H) 20 - 30 mmol/L [facility] BE, venous 3 mmol/L [facility] Comment: Interpretive Data No Reference Range Established Current Interpretive Data was last revised on 2017. Blood 02/28/2024 9:35 AM BEDSPREAD CUTTER 02/28/2024 9:47 AM BEDSPREAD CUTTER us Krysten Cohn MD LAB BLOOD ORDERABLES Final Result Performing Organization Address [facility] Co de Phone Number [facility] Department [place] [address] * (ABNORMAL) Comprehensive metabolic panel (02/28/2024 9:35 AM BEDSPREAD CUTTER) Pathologist [facility] Sodium 138 135 - 145 mmol/L Potassium, pl 3.8 3.3 - 4.9 mmol/L [facility] Chloride 101 97 - 110 mmol/L [facility] CO2 30 22 - 32 mmol/L [facility] Anion gap 7 2 - 15 mmol/L [facility] BUN 26(H) 6 - 25 mg/dL [facility] Creatinine 0.98 0.60 - 1.10 mg/dL [facility] Glucose 124 70 - 199 mg/dL [facility] Comment: Interpretive Data Fasting glucose >/= 126 mg/dl is diagnostic for diabetes. Fasting is defined as no caloric intake for at least 8 hours. Fasting glucose between 100 mg/dl to 125 mg/dl is diagnostic of prediabetes. In a patient with classic symptoms of hyperglycemia or hyperglycemic crisis, a random glucose >/= 200 mg/dl is diagnostic for diabetes. In the absence of unequivocal hyperglycemia, results should be confirmed by repeat testing. The classification and Diagnosis of Diabetes Diabetes Care 2021; 46: S19-S40. Current interpretive data was last revised 2022. Calcium 8.2(L) 8.5 - 10.3 mg/dL [facility] Bilirubin, total 0.7 0.1 - 1.2 mg/dL [facility] Protein, pl 5.8(L) 6.5 - 8.5 g/dL [facility] Albumin 2.5(L) 3.5 - 5.0 g/dL [facility] Alk phos 390(H) 40 - 130 Units/L [facility] ALT 11 7 - 45 Units/L [facility] AST 40 10 - 45 Units/L [facility] Blood 02/28/2024 9:35 AM BEDSPREAD CUTTER 02/28/2024 9:58 AM BEDSPREAD CUTTER us rKysten Cohn MD LAB BLOOD ORDERABLES Final Result [facility] [place] [address] * Critical Care (02/28/2024 7:43 AM BEDSPREAD CUTTER) Narrative Andrez Moyer MD - 02/28/2024 7:43 AM BEDSPREAD CUTTER Andrez Moyer MD 02/28/2024 7:44 AM Critical Care Performed by: Andrze Moyer MD Authorized by: Andrez Moyer MD CRITICAL CARE: Team: SICU RED Shift: AM Level of Billing: Critical Care My time spent with this patient was 45 minutes: Critical Provider Statement: I have seen and examined the patient on this day of service. I have reviewed and confirmed the history, physical exam, laboratory and radiologic data as documented in the signed ICU note. I have reviewed and discussed my treatment plan with the ICU team and other medical/transportation sales consultant staff, making frequent assessments and decisions regarding this patient's complex medical care. Critical Care time was exclusive of time spent performing separately billed procedures, treating other patients, and teaching. This time was in addition to and separate from critical care provided by other practitioners in my group on this day of service. Critical Care was necessary to treat or prevent imminent or life-threatening deterioration of the following conditions: Acute hypercarbic respiratory failure and Acute hypoxic respiratory failure Acute kidney injury This time was spent by me doing the following: Serial bedside patient exams Active and frequent reassessment of respiratory status and oxygen requirements and Invasive ventilator management, reassessment, and titration Active and frequent monitoring of intake/output and volumen status Acute renal replacement therapy I spent time reviewing and interpreting data from bedside monitors, laboratory results, and imaging, I spent time discussing the management of this critically ill patient with consultants and the medical staff and I spent time documenting in the medical record us Andrez Moyre MD IN CLINIC/BEDSIDE ORDERABLES Fin al Result * POCT glucose (02/28/2024 7:32 AM BEDSPREAD CUTTER) Pathologist [facility] Glucose, POC 88 70 - 199 mg/dL Blood 02/28/2024 7:32 AM BEDSPREAD CUTTER 02/28/2024 7:32 AM BEDSPREAD CUTTER us Krysten Cohn MD LAB POCT ORDERABLES - DEVICE Final Result [facility] [place] [address] * (ABNORMAL) Hemoglobin and hematocrit (02/28/2024 4:27 AM BEDSPREAD CUTTER) Pathologist [facility] Hgb 8.4(L) 11.9 - 15.5 g/dL Hct 27.1(L) 35.6 - 45.5 % [facility] Blood 02/28/2024 4:27 AM BEDSPREAD CUTTER 02/28/2024 4:46 AM BEDSPREAD CUTTER us Krysten Cohn MD LAB BLOOD ORDERABLES Final Result Performing Organization Address [facility] Co de Phone Number [facility] [place] [address] * POCT glucose (02/28/2024 3:10 AM BEDSPREAD CUTTER) Glucose, POC 87 70 - 199 mg/dL Blood 02/28/2024 3:10 AM BEDSPREAD CUTTER 02/28/2024 3:10 AM BEDSPREAD CUTTER Krysten Cohn MD LAB POCT ORDERABLES - DEVICE Final Result Performing Organization Address [facility] [place] [address] * (ABNORMAL) Blood gas, venous (02/27/2024 11:23 PM BEDSPREAD CUTTER) pH, Venous 7.29(L) 7.32 - 7.43 PCO2, Venous 63(H) 40 - 50 mmHg [facility] PO2, Venous 55 mmHg [facility] Comment: Interpretive Data No Reference Range Established Current Interpretive Data was last revised on 2017. HCO3 Venous, Calculated 31(H) 20 - 30 mmol/L [facility] BE, venous 2 mmol/L [facility] Comment: Interpretive Data No Reference Range Established Current Interpretive Data was last revised on 2017. Blood 02/27/2024 11:2 3 PM BEDSPREAD CUTTER 02/27/2024 11:31 PM BEDSPREAD CUTTER us Krysten Cohn MD LAB BLOOD ORDERABLES Final Result Performing Organization Address [facility] de Phone Number [facility] [place] [address] * POCT glucose (02/27/2024 11:20 PM BEDSPREAD CUTTER) Pathologist [facility] Glucose, POC 115 70 - 199 mg/dL Blood 02/27/2024 11:2 0 PM BEDSPREAD CUTTER 02/27/2024 11:20 PM BEDSPREAD CUTTER us Krysten Cohn MD LAB POCT ORDERABLES - DEVICE Final Result [facility] [place] [address] * Critical Care (02/27/2024 7:55 PM BEDSPREAD CUTTER) Narrative Gabriel Tsang MD - 02/27/2024 7:55 PM BEDSPREAD CUTTER Gabriel Tsang MD 02/28/2024 6:02 AM Critical Care Performed by: Gabriel Tsang MD Authorized by: Gabriel Tsang MD CRITICAL CARE: Team: SICU RED Shift: PM Level of Billing: Critical Care My time spent with this patient was 30 minutes: Critical Provider Statement: I have seen and examined the patient on this day of service. I have reviewed and confirmed the history, physical exam, laboratory and radiologic data as documented in the signed ICU note. I have reviewed and discussed my treatment plan with the ICU team and other medical/transportation sales consultant staff, making frequent assessments and decisions regarding this patient's complex medical care. Critical Care time was exclusive of time spent performing separately billed procedures, treating other patients, and teaching. This time was in addition to and separate from critical care provided by other practitioners in my group on this day of service. Critical Care was necessary to treat or prevent imminent or life-threatening deterioration of the following conditions: us Gabriel Tsang MD IN CLINIC/BEDSIDE ORDE RABLES Final Result * (ABNORMAL) eGFR (02/27/2024 7:51 PM BEDSPREAD CUTTER) [facility] eGFR 31(L) >=60 mL/min/1. 73 m2 Comment: Interpretive Data Reference Interval Normal >/= 90 mL/min/1.73m2 Mildly decreased* 60 - 89 mL/min/1.73m2 Mildly to moderately decreased 45 - 59 mL/min/1.73m2 Moderately to severely decreased 30 - 44 mL/min/1.73m2 Severely decreased 15 - 29 mL/min/1.73m2 Kidney Failure < 15 mL/min/1.73m2 *Relative to young adult level Estimated glomerular filtration rate is determined by the 2020 CKD-EPI equation recommended by the National Kidney Foundation (A Unifying Approach to GFR Estimation: Recommendations of the NKF-ASK Task Force on Reassessing the Inclusion of Race in Diagnosing Kidney Disease, JASN 2020). The CKD-EPI equation should not be used for patients with unstable renal function and has not been validated in children and those over 70. Current interpretive data was last reviewed 2021. Blood 02/27/2024 7:51 PM BEDSPREAD CUTTER 02/27/2024 8:06 PM BEDSPREAD CUTTER us Krysten Cohn MD LAB BLOOD ORDERABLES Final Result Performing Organization Address [facility] de Phone Number [facility] [place] [address] * (ABNORMAL) Protime-INR (02/27/2024 7:51 PM BEDSPREAD CUTTER) PT 14.4(H) 9.7 - 13.0 sec INR 1.33(H) 0.90 - 1.20 [facility] Comment: Interpretive data Oral anticoagulant therapeutic ranges: Venous thromboembolism prophylaxis or treatment: 2.0-3.0 CARDIOLOGY Standard range: 2.0-3.0 High-intensity range: 2.5-3.5 Refer to indication-specific guidelines for appropriate target ranges for prosthetic heart valve replacement. Current interpretive data was last revised on 2019. Blood 02/27/2024 7:51 PM BEDSPREAD CUTTER 02/27/2024 8:10 PM BEDSPREAD CUTTER us Krysten Cohn MD LAB BLOOD ORDERABLES Final Result Performing Organization Address [facility] Co de Phone Number [facility]ADELEINE [facility] [address] * Phosphorus (02/27/2024 7:51 PM BEDSPREAD CUTTER) Phosphorus, pl 4.1 2.3 - 4.5 mg/dL Blood 02/27/2024 7:51 PM BEDSPREAD CUTTER 02/27/2024 8:00 PM BEDSPREAD CUTTER us Krysten Cohn MD LAB BLOOD ORDERABLES Final Result [facility] [place] [address] * (ABNORMAL) Comprehensive metabolic panel (02/27/2024 7:51 PM BEDSPREAD CUTTER) Pathologist [facility] Sodium 140 135 - 145 mmol/L Potassium, pl 3.5 3.3 - 4.9 mmol/L [facility] Chloride 100 97 - 110 mmol/L [facility] CO2 30 22 - 32 mmol/L [facility] Anion gap 10 2 - 15 mmol/L [facility] BUN 42(H) 6 - 25 mg/dL [facility] Creatinine 1.91(H) 0.60 - 1.10 mg/dL [facility] Glucose 102 70 - 199 mg/dL [facility] Comment: Interpretive Data Fasting glucose >/= 126 mg/dl is diagnostic for diabetes. Fasting is defined as no caloric intake for at least 8 hours. Fasting glucose between 100 mg/dl to 125 mg/dl is diagnostic of prediabetes. In a patient with classic symptoms of hyperglycemia or hyperglycemic crisis, a random glucose >/= 200 mg/dl is diagnostic for diabetes. In the absence of unequivocal hyperglycemia, results should be confirmed by repeat testing. The classification and Diagnosis of Diabetes Diabetes Care 2021; 46: S19-S40. Current interpretive data was last revised 2022. Calcium 8.3(L) 8.5 - 10.3 mg/dL [facility] Bilirubin, total 0.7 0.1 - 1.2 mg/dL [facility] Protein, pl 5.8(L) 6.5 - 8.5 g/dL [facility] Albumin 2.5(L) 3.5 - 5.0 g/dL [facility] Alk phos 240(H) 40 - 130 Units/L [facility] ALT 11 7 - 45 Units/L [facility] AST 34 10 - 45 Units/L [facility] Blood 02/27/2024 7:51 PM BEDSPREAD CUTTER 02/27/2024 8:00 PM BEDSPREAD CUTTER us Krysten Cohn MD LAB BLOOD ORDERABLES Final Result Performing Organization Address [facility]/ZIP Co de Phone Number [facility] [place] [address] * POCT glucose (02/27/2024 7:00 PM BEDSPREAD CUTTER) Glucose, POC 109 70 - 199 mg/dL Blood 02/27/2024 7:00 PM BEDSPREAD CUTTER 02/27/2024 7:00 PM BEDSPREAD CUTTER us Krysten Cohn MD LAB POCT ORDERABLES - DEVICE Final Result Performing Organization Address [facility] Co de Phone Number [facility] [place] [address] * XR Chest 1 View (02/27/2024 6:19 PM BEDSPREAD CUTTER) Anatomical Region Laterality Modality Body, Chest N/A Computed Radiogr aphy 02/27/2024 7:35 PM BEDSPREAD CUTTER Impressions 02/27/2024 7:35 PM BEDSPREAD CUTTER Comparison is made 02/26/2024. Right internal jugular central venous catheter has tip in the superior vena cava. There has been interval increase in bilateral airspace opacities consistent with pulmonary edema that may be secondary to evolving lung injury or a cardiogenic cause. No pneumothorax. No effusions. Electronically signed by: Kenton Muñoz M.D. Narrative 02/27/2024 7:35 PM BEDSPREAD CUTTER EXAMINATION: 1 view chest radiograph Procedure Note Kenton Muñoz MD - 02/27/2024 EXAMINATION: 1 view chest radiograph IMPRESSION: Comparison is made 02/26/2024. Right internal jugular central venous catheter has tip in the superior vena cava. There has been interval increase in bilateral airspace opacities consistent with pulmonary edema that may be secondary to evolving lung injury or a cardiogenic cause. No pneumothorax. No effusions. Electronically signed by: Kenton Muñoz M.D. us Krysten Cohn MD IMG XR PROCEDURES Fin al Result * (ABNORMAL) Blood gas, venous (02/27/2024 5:57 PM BEDSPREAD CUTTER) pH, Venous 7.27(L) 7.32 - 7.43 PCO2, Venous 68(H) 40 - 50 mmHg [facility] PO2, Venous 46 mmHg [facility] Comment: Interpretive Data No Reference Range Established Current Interpretive Data was last revised on 2017. HCO3 Venous, Calculated 32(H) 20 - 30 mmol/L [facility] BE, venous 3 mmol/L [facility] Comment: Interpretive Data No Reference Range Established Current Interpretive Data was last revised on 2017. Blood 02/27/2024 5:57 PM BEDSPREAD CUTTER 02/27/2024 6:04 PM BEDSPREAD CUTTER us Angelica ADAMS LAB BLOOD ORDERABLE S Final Result [facility] [place] [address] * (ABNORMAL) Blood gas, venous (02/27/2024 3:43 PM BEDSPREAD CUTTER) pH, Venous 7.29(L) 7.32 - 7.43 PCO2, Venous 61(H) 40 - 50 mmHg [facility] PO2, Venous 52 mmHg [facility] Comment: Interpretive Data No Reference Range Established Current Interpretive Data was last revised on 2017. HCO3 Venous, Calculated 31(H) 20 - 30 mmol/L [facility] BE, venous 2 mmol/L [facility] Comment: Interpretive Data No Reference Range Established Current Interpretive Data was last revised on 2017. Blood 02/27/2024 3:43 PM BEDSPREAD CUTTER 02/27/2024 3:57 PM BEDSPREAD CUTTER us Krysten Cohn MD LAB BLOOD ORDERABLES Final Result Performing Organization Address City/[facility]/ZIP Co de Phone Number [facility] [place] [address] * Blood culture Blood (02/27/2024 12:52 PM BEDSPREAD CUTTER) Report Final Report: No growth Blood 02/27/2024 12:5 2 PM BEDSPREAD CUTTER 02/27/2024 1:29 PM BEDSPREAD CUTTER Narrative [facility] - 03/02/2024 4:00 PM BEDSPREAD CUTTER Collection->Peripheral 1. Blood cultures are incubated for 4 days on a continuously monitored blood culture system. The first report of a negative culture is issued within 24 hours of receipt of the specimen in the laboratory. 2. Positive culture results are reported as soon as they are detected. 3. The most important factor for detection of microbes in the setting of bloodstream infection is the volume of blood submitted for culture. Failure to collect an optimal blood volume can result in false negative blood cultures. 4. For pediatric patients, the recommended blood volume to collect follows a weight based strategy. See the electronic test catalog for collection instructions. 5. For positive blood cultures, a rapid molecular test may be performed for organism identification using the tru e[employer]lex blood culture identification panel for gram positive (BCID-GP) and gram negative (BCID-GN) organisms. This nucleic acid amplification test detects microbial DNA in positive blood culture broth. This assay has been cleared by the [place] Food and Drug Administration and its performance characteristics have been verified by the [facility]. For questions about this culture, contact the Microbiology Laboratory at [phone]. Interpretive data was last revised on 23. us Angelica ADAMS LAB MICROBIOLOGY - GENERAL ORDERABLES Final Result Performing Organization Address City/[facility]/ZIP Co de Phone Number [facility] [place] [address] * Blood culture Blood (02/27/2024 12:52 PM BEDSPREAD CUTTER) Report Final Report: No growth Blood 02/27/2024 12:5 2 PM BEDSPREAD CUTTER 02/27/2024 1:29 PM BEDSPREAD CUTTER Narrative [facility] - 03/02/2024 4:00 PM BEDSPREAD CUTTER Collection->Peripheral 1. Blood cultures are incubated for 4 days on a continuously monitored blood culture system. The first report of a negative culture is issued within 24 hours of receipt of the specimen in the laboratory. 2. Positive culture results are reported as soon as they are detected. 3. The most important factor for detection of microbes in the setting of bloodstream infection is the volume of blood submitted for culture. Failure to collect an optimal blood volume can result in false negative blood cultures. 4. For pediatric patients, the recommended blood volume to collect follows a weight based strategy. See the electronic test catalog for collection instructions. 5. For positive blood cultures, a rapid molecular test may be performed for organism identification using the tru ePlex blood culture identification panel for gram positive (BCID-GP) and gram negative (BCID-GN) organisms. This nucleic acid amplification test detects microbial DNA in positive blood culture broth. This assay has been cleared by the [place] Food and Drug Administration and its performance characteristics have been verified by the [facility]. For questions about this culture, contact the Microbiology Laboratory at [phone]. Interpretive data was last revised on 23. Angelica ADAMS LAB MICROBIOLOGY - GENERAL ORDERABLES Final Result MADELEINE DEY [facility] [place] [address] * (ABNORMAL) Blood gas, venous (02/27/2024 12:19 PM BEDSPREAD CUTTER) pH, Venous 7.31(L) 7.32 - 7.43 PCO2, Venous 58(H) 40 - 50 mmHg [facility] PO2, Venous 50 mmHg [facility] Comment: Interpretive Data No Reference Range Established Current Interpretive Data was last revised on 2017. HCO3 Venous, Calculated 31(H) 20 - 30 mmol/L [facility] BE, venous 3 mmol/L [facility] Comment: Interpretive Data No Reference Range Established Current Interpretive Data was last revised on 2017. Blood 02/27/2024 12:1 9 PM BEDSPREAD CUTTER 02/27/2024 12:27 PM BEDSPREAD CUTTER Angelica ADAMS LAB BLOOD ORDERABLE S Final Result Performing Organization Address City/[facility]/ZIP Co de Phone Number [facility] [place] [address] * POCT glucose (02/27/2024 11:13 AM BEDSPREAD CUTTER) [facility] Glucose, POC 118 70 - 199 mg/dL Blood 02/27/2024 11:1 3 AM BEDSPREAD CUTTER 02/27/2024 11:13 AM BEDSPREAD CUTTER us Krysten Cohn MD LAB POCT ORDERABLES - DEVICE Final Result Performing Organization Address [facility] de Phone Number [facility] [place] [address] * (ABNORMAL) Differential, auto (02/27/2024 9:20 AM BEDSPREAD CUTTER) [facility] Neutrophil abs 15.4(H) 1.5 - 6.5 K/cumm Imm gran abs 0.5(H) 0.0 - 0.1 K/cumm [facility] Lymphocyte abs 1.3 0.8 - 3.3 K/cumm [facility] Monocyte abs 2.1(H) 0.2 - 0.8 K/cumm [facility] Eosinophil abs 0.1 0.0 - 0.5 K/cumm [facility] Basophil abs 0.1 0.0 - 0.1 K/cumm [facility] Neutrophil pct 79.0 % [facility] Comment: Interpretive Data Percent cell count reference ranges are not reported, since discordance with absolute values may lead to misinterpretation of CBC data. Current Interpretive Data was last revised on 2017. Imm gran pct 2.5 % [facility] Comment: Interpretive Data Percent cell count reference ranges are not reported, since discordance with absolute values may lead to misinterpretation of CBC data. Current Interpretive Data was last revised on 2017. Lymphocyte pct 6.5 % [facility] Comment: Interpretive Data Percent cell count reference ranges are not reported, since discordance with absolute values may lead to misinterpretation of CBC data. Current Interpretive Data was last revised on 2017. Monocyte pct 11.0 % [facility] Comment: Interpretive Data Percent cell count reference ranges are not reported, since discordance with absolute values may lead to misinterpretation of CBC data. Current Interpretive Data was last revised on 2017. Eosinophil pct 0.6 % [facility] Comment: Interpretive Data Percent cell count reference ranges are not reported, since discordance with absolute values may lead to misinterpretation of CBC data. Current Interpretive Data was last revised on 2017. Basophil pct 0.4 % [facility] Comment: Interpretive Data Percent cell count reference ranges are not reported, since discordance with absolute values may lead to misinterpretation of CBC data. Current Interpretive Data was last revised on 2017. Blood 02/27/2024 9:20 AM BEDSPREAD CUTTER 02/27/2024 9:38 AM BEDSPREAD CUTTER us Krysten Cohn MD LAB BLOOD ORDERABLES Final Result [facility] [place] [address] * (ABNORMAL) CBC with auto differential (02/27/2024 9:20 AM BEDSPREAD CUTTER) WBC 19.5(H) 3.8 - 9.9 K/cumm Hgb 8.1(L) 11.9 - 15.5 g/dL [facility] Hct 25.1(L) 35.6 - 45.5 % [facility] Plt 117(L) 150 - 400 K/cumm [facility] MPV 10.2 9.1 - 12.3 fL [facility] RBC 2.36(L) 3.90 - 5.20 M/cumm [facility] MCV 106.4(H) 81.3 - 96.4 fL [facility] MCH 34.3(H) 27.1 - 33.3 pg [facility] MCHC 32.3 32.3 - 35.7 g/dL [facility] RDW CV 15.5(H) 11.1 - 14.9 % [facility] RDW SD 59.7(H) 35.7 - 48.1 fL [facility] NRBC abs 0.07(H) 0.00 - 0.01 K/cumm [facility] Blood 02/27/2024 9:20 AM BEDSPREAD CUTTER 02/27/2024 9:38 AM BEDSPREAD CUTTER us Krysten Cohn MD LAB BLOOD ORDERABLES Final Result [facility] [place] [address] * (ABNORMAL) eGFR (02/27/2024 9:00 AM BEDSPREAD CUTTER) eGFR 19(L) >=60 mL/min/1. 73 m2 Comment: Interpretive Data Reference Interval Normal >/= 90 mL/min/1.73m2 Mildly decreased* 60 - 89 mL/min/1.73m2 Mildly to moderately decreased 45 - 59 mL/min/1.73m2 Moderately to severely decreased 30 - 44 mL/min/1.73m2 Severely decreased 15 - 29 mL/min/1.73m2 Kidney Failure < 15 mL/min/1.73m2 *Relative to young adult level Estimated glomerular filtration rate is determined by the 2020 CKD-EPI equation recommended by the National Kidney Foundation (A Unifying Approach to GFR Estimation: Recommendations of the NKF-ASK Task Force on Reassessing the Inclusion of Race in Diagnosing Kidney Disease, JASN 2020). The CKD-EPI equation should not be used for patients with unstable renal function and has not been validated in children and those over 70. Current interpretive data was last reviewed 2021. Blood 02/27/2024 9:00 AM BEDSPREAD CUTTER 02/27/2024 9:39 AM BEDSPREAD CUTTER us Krysten Cohn MD LAB BLOOD ORDERABLES Final Result Performing Organization Address [facility] Co de Phone Number [facility] [place] [address] * (ABNORMAL) Protime-INR (02/27/2024 9:00 AM BEDSPREAD CUTTER) PT 14.9(H) 9.7 - 13.0 sec INR 1.37(H) 0.90 - 1.20 [facility] Comment: Interpretive data Oral anticoagulant therapeutic ranges: Venous thromboembolism prophylaxis or treatment: 2.0-3.0 CARDIOLOGY Standard range: 2.0-3.0 High-intensity range: 2.5-3.5 Refer to indication-specific guidelines for appropriate target ranges for prosthetic heart valve replacement. Current interpretive data was last revised on 2019. Blood 02/27/2024 9:00 AM BEDSPREAD CUTTER 02/27/2024 9:39 AM BEDSPREAD CUTTER us Krysten Cohn MD LAB BLOOD ORDERABLES Final Result Performing Organization Address [facility] Co de Phone Number [facility] [place] [address] * (ABNORMAL) Blood gas, venous (02/27/2024 9:00 AM BEDSPREAD CUTTER) pH, Venous 7.30(L) 7.32 - 7.43 PCO2, Venous 59(H) 40 - 50 mmHg [facility] PO2, Venous 55 mmHg [facility] Comment: Interpretive Data No Reference Range Established Current Interpretive Data was last revised on 2017. HCO3 Venous, Calculated 30 20 - 30 mmol/L [facility] BE, venous 2 mmol/L [facility] Comment: Interpretive Data No Reference Range Established Current Interpretive Data was last revised on 2017. Blood 02/27/2024 9:00 AM BEDSPREAD CUTTER 02/27/2024 9:32 AM BEDSPREAD CUTTER us Krysten Cohn MD LAB BLOOD ORDERABLES Final Result [facility] [place] [address] * (ABNORMAL) Comprehensive metabolic panel (02/27/2024 9:00 AM BEDSPREAD CUTTER) Sodium 139 135 - 145 mmol/L Potassium, pl 3.5 3.3 - 4.9 mmol/L [facility] Chloride 100 97 - 110 mmol/L [facility] CO2 30 22 - 32 mmol/L [facility] Anion gap 9 2 - 15 mmol/L [facility] BUN 51(H) 6 - 25 mg/dL [facility] Creatinine 2.89(H) 0.60 - 1.10 mg/dL [facility] Glucose 107 70 - 199 mg/dL [facility] Comment: Interpretive Data Fasting glucose >/= 126 mg/dl is diagnostic for diabetes. Fasting is defined as no caloric intake for at least 8 hours. Fasting glucose between 100 mg/dl to 125 mg/dl is diagnostic of prediabetes. In a patient with classic symptoms of hyperglycemia or hyperglycemic crisis, a random glucose >/= 200 mg/dl is diagnostic for diabetes. In the absence of unequivocal hyperglycemia, results should be confirmed by repeat testing. The classification and Diagnosis of Diabetes Diabetes Care 202; 46: S19-S40. Current interpretive data was last revised 2022. Calcium 8.4(L) 8.5 - 10.3 mg/dL [facility] Bilirubin, total 0.7 0.1 - 1.2 mg/dL [facility] Protein, pl 5.5(L) 6.5 - 8.5 g/dL [facility] Albumin 2.5(L) 3.5 - 5.0 g/dL [facility] Alk phos 218(H) 40 - 130 Units/L [facility] ALT 10 7 - 45 Units/L [facility] AST 31 10 - 45 Units/L [facility] Blood 02/27/2024 9:00 AM BEDSPREAD CUTTER 02/27/2024 9:39 AM BEDSPREAD CUTTER us Krysten Cohn MD LAB BLOOD ORDERABLES Final Result [facility] [place] [address] * Critical Care (02/27/2024 8:54 AM BEDSPREAD CUTTER) Narrative Andrez Moyer MD - 02/27/2024 8:54 AM BEDSPREAD CUTTER Andrez Moyer MD 02/27/2024 8:54 AM Critical Care Performed by: Andrez Moyer MD Authorized by: Andrez Moyer MD CRITICAL CARE: Team: SICU RED Shift: AM Level of Billing: Critical Care My time spent with this patient was 60 minutes: Critical Provider Statement: I have seen and examined the patient on this day of service. I have reviewed and confirmed the history, physical exam, laboratory and radiologic data as documented in the signed ICU note. I have reviewed and discussed my treatment plan with the ICU team and other medical/transportation sales consultant staff, making frequent assessments and decisions regarding this patient's complex medical care. Critical Care time was exclusive of time spent performing separately billed procedures, treating other patients, and teaching. This time was in addition to and separate from critical care provided by other practitioners in my group on this day of service. Critical Care was necessary to treat or prevent imminent or life-threatening deterioration of the following conditions: Acute hypoxic respiratory failure Acute kidney injury This time was spent by me doing the following: Serial bedside patient exams Active and frequent reassessment of respiratory status and oxygen requirements and Inhaled pulmonary vasodilator administration/titration Empiric broad coverage antibiotics and Review of prior or current culture/gram stain results I spent time reviewing and interpreting data from bedside monitors, laboratory results, and imaging, I spent time discussing the management of this critically ill patient with consultants and the medical staff and I spent time documenting in the medical record us Andrez Moyer MD IN CLINIC/BEDSIDE ORDERABLES Fin al Result * POCT glucose (02/27/2024 7:10 AM BEDSPREAD CUTTER) Glucose, POC 100 70 - 199 mg/dL Blood 02/27/2024 7:10 AM BEDSPREAD CUTTER 02/27/2024 7:10 AM BEDSPREAD CUTTER us Krysten Cohn MD LAB POCT ORDERABLES - DEVICE Final Result Performing Organization Address [facility] [place] [address] * (ABNORMAL) Hemoglobin and hematocrit (02/27/2024 5:42 AM BEDSPREAD CUTTER) Hgb 7.9(L) 11.9 - 15.5 g/dL Hct 24.7(L) 35.6 - 45.5 % [facility] Blood 02/27/2024 5:42 AM BEDSPREAD CUTTER 02/27/2024 6:20 AM BEDSPREAD CUTTER us Krysten Cohn MD LAB BLOOD ORDERABLES Final Result Performing Organization Address [facility] de Phone Number [facility] [place] [address] * POCT glucose (02/27/2024 3:09 AM BEDSPREAD CUTTER) Glucose, POC 96 70 - 199 mg/dL Blood 02/27/2024 3:09 AM BEDSPREAD CUTTER 02/27/2024 3:09 AM BEDSPREAD CUTTER us Krysten Cohn MD LAB POCT ORDERABLES - DEVICE Final Result Performing Organization Address [facility] Co de Phone Number [facility] [place] [address] * POCT glucose (02/26/2024 11:33 PM BEDSPREAD CUTTER) Glucose, POC 105 70 - 199 mg/dL Blood 02/26/2024 11:3 3 PM BEDSPREAD CUTTER 02/26/2024 11:33 PM BEDSPREAD CUTTER us Krysten Cohn MD LAB POCT ORDERABLES - DEVICE Final Result Performing Organization Address [facility] de Phone Number [facility] [place] [address] * (ABNORMAL) Blood gas, venous (02/26/2024 11:05 PM BEDSPREAD CUTTER) pH, Venous 7.32 7.32 - 7.43 PCO2, Venous 57(H) 40 - 50 mmHg [facility] PO2, Venous 46 mmHg [facility] Comment: Interpretive Data No Reference Range Established Current Interpretive Data was last revised on 2017. HCO3 Venous, Calculated 30 20 - 30 mmol/L [facility] BE, venous 2 mmol/L [facility] Comment: Interpretive Data No Reference Range Established Current Interpretive Data was last revised on 2017. Blood 02/26/2024 11:0 5 PM BEDSPREAD CUTTER 02/26/2024 11:12 PM BEDSPREAD CUTTER Beata Pérez NP LAB BLOOD ORDERABLES F inal Result Performing Organization Address [facility] Co de Phone Number [facility] [place] [address] * (ABNORMAL) Aerobic and anaerobic culture and gram stain Aspirate Leg, left (02/26/2024 9:35 PM BEDSPREAD CUTTER) Pathologist [facility] Direct Specimen Exam Stain: No polymorphonuclear leukocytes seen. No organisms seen. Report Final Report: Few Staphylococcus aureus Methicillin susceptible (MSSA) by penicillin binding protein 2a (PBP2a) testing. This isolate is presumed to be resistant to clindamycin based on detection of inducible clindamycin resistance. Clindamycin may still be effective in some patients. (.) [facility] Organism STAPHYLOCOCCUS AUREUS [facility] Aspirate (Leg, left) 02/26/2024 9:35 PM BEDSPREAD CUTTER 02/26/2024 9:45 PM BEDSPREAD CUTTER Narrative [facility] - 2024 12:42 PM BEDSPREAD CUTTER Specimen received on an ESwab. Testing performed by [facility] ([phone]) Specimens submitted from normally sterile body sites will have all bacterial morphotypes identified. Specimens that contain grossly mixed joseph and/or are from body sites that are not normally sterile will be examined for Staphylococcus aureus, Pseudomonas aeruginosa, beta-hemolytic strep, vancomycin-resistant Enterococcus, Bacteroides, Parabacteroides, Clostridium perfringens and fungus. If any of these are isolated, the organism will be reported. Current interpretive data was last revised on 2019. Organism Antibiotic Method Susceptibility Staphylococcus aureus Doxycycline (SCARLETT) INTERPRETATIO N Susceptible Staphylococcus aureus Linezolid (SCARLETT) INTERPRETATIO N Susceptible Staphylococcus aureus Trimethoprim with Sulfamethoxazole (SCARLETT) INTERPRETATION Susceptible Staphylococcus aureus Clindamycin (SCARLETT) INTERPRETATIO N Resistant Staphylococcus aureus Erythromycin (SCARLETT) INTERPRETATIO N Resistant Staphylococcus aureus Vancomycin (SCARLETT) INTERPRETATIO N Susceptible Staphylococcus aureus Oxacillin (SCARLETT) INTERPRETATIO N Susceptible Staphylococcus aureus Cefazolin (SCARLETT) INTERPRETATIO N Susceptible Staphylococcus aureus Ceftriaxone (SCARLETT) INTERPRETATIO N Susceptible us Krysten Cohn MD LAB MICROBIOLOGY - NERAL ORDERABLES Final Result Performing Organization Address City/[facility] Co de Phone Number [facility] [place] [address] * POCT glucose (02/26/2024 9:35 PM BEDSPREAD CUTTER) [facility] Glucose, POC 114 70 - 199 mg/dL Blood 02/26/2024 9:35 PM BEDSPREAD CUTTER 02/26/2024 9:35 PM BEDSPREAD CUTTER us Krysten Cohn MD LAB POCT ORDERABLES - DEVICE Final Result Performing Organization Address [facility] Co de Phone Number [facility] [place] [address] * Critical Care (02/26/2024 9:25 PM BEDSPREAD CUTTER) Narrative Gabriel Tsang MD - 02/26/2024 9:25 PM BEDSPREAD CUTTER Gabriel Tsang MD 02/27/2024 5:45 AM Critical Care Performed by: Gabriel Tsang MD Authorized by: Gabriel Tsang MD CRITICAL CARE: Team: SICU RED Shift: PM Level of Billing: Critical Care My time spent with this patient was 30 minutes: Critical Provider Statement: I have seen and examined the patient on this day of service. I have reviewed and confirmed the history, physical exam, laboratory and radiologic data as documented in the signed ICU note. I have reviewed and discussed my treatment plan with the ICU team and other medical/transportation sales consultant staff, making frequent assessments and decisions regarding this patient's complex medical care. Critical Care time was exclusive of time spent performing separately billed procedures, treating other patients, and teaching. This time was in addition to and separate from critical care provided by other practitioners in my group on this day of service. Critical Care was necessary to treat or prevent imminent or life-threatening deterioration of the following conditions: us Gabriel Tsang MD IN CLINIC/BEDSIDE JM NEWELL Final Result * (ABNORMAL) eGFR (02/26/2024 7:22 PM BEDSPREAD CUTTER) eGFR 16(L) >=60 mL/min/1. 73 m2 Comment: Interpretive Data Reference Interval Normal >/= 90 mL/min/1.73m2 Mildly decreased* 60 - 89 mL/min/1.73m2 Mildly to moderately decreased 45 - 59 mL/min/1.73m2 Moderately to severely decreased 30 - 44 mL/min/1.73m2 Severely decreased 15 - 29 mL/min/1.73m2 Kidney Failure < 15 mL/min/1.73m2 *Relative to young adult level Estimated glomerular filtration rate is determined by the 2020 CKD-EPI equation recommended by the National Kidney Foundation (A Unifying Approach to GFR Estimation: Recommendations of the NKF-ASK Task Force on Reassessing the Inclusion of Race in Diagnosing Kidney Disease, JASN 202). The CKD-EPI equation should not be used for patients with unstable renal function and has not been validated in children and those over 70. Current interpretive data was last reviewed 2021. Blood 02/26/2024 7:22 PM BEDSPREAD CUTTER 02/26/2024 7:41 PM BEDSPREAD CUTTER us Krysten Cohn MD LAB BLOOD ORDERABLES Final Result MADELEINE DEY [facility] [place] [address] * (ABNORMAL) Differential, auto (02/26/2024 7:22 PM BEDSPREAD CUTTER) Neutrophil abs 17.3(H) 1.5 - 6.5 K/cumm Imm gran abs 0.2(H) 0.0 - 0.1 K/cumm [facility] Lymphocyte abs 1.1 0.8 - 3.3 K/cumm [facility] Monocyte abs 1.7(H) 0.2 - 0.8 K/cumm [facility] Eosinophil abs 0.1 0.0 - 0.5 K/cumm [facility] Basophil abs 0.1 0.0 - 0.1 K/cumm [facility] Neutrophil pct 84.7 % [facility] Comment: Interpretive Data Percent cell count reference ranges are not reported, since discordance with absolute values may lead to misinterpretation of CBC data. Current Interpretive Data was last revised on 2017. Imm gran pct 1.0 % [facility] Comment: Interpretive Data Percent cell count reference ranges are not reported, since discordance with absolute values may lead to misinterpretation of CBC data. Current Interpretive Data was last revised on 2017. [facility]ocyte pct 5.4 % [facility] Comment: Interpretive Data Percent cell count reference ranges are not reported, since discordance with absolute values may lead to misinterpretation of CBC data. Current Interpretive Data was last revised on 2017. Monocyte pct 8.3 % [facility] Comment: Interpretive Data Percent cell count reference ranges are not reported, since discordance with absolute values may lead to misinterpretation of CBC data. Current Interpretive Data was last revised on 2017. Eosinophil pct 0.3 % [facility] Comment: Interpretive Data Percent cell count reference ranges are not reported, since discordance with absolute values may lead to misinterpretation of CBC data. Current Interpretive Data was last revised on 2017. Basophil pct 0.3 % [facility] Comment: Interpretive Data Percent cell count reference ranges are not reported, since discordance with absolute values may lead to misinterpretation of CBC data. Current Interpretive Data was last revised on 2017. Blood 02/26/2024 7:22 PM BEDSPREAD CUTTER 02/26/2024 7:40 PM BEDSPREAD CUTTER Beata Pérez NP LAB BLOOD ORDERABLES F inal Result Performing Organization Address City/[facility] Co de Phone Number [facility] [place] [place] [address] * (ABNORMAL) CBC with auto differential (02/26/2024 7:22 PM BEDSPREAD CUTTER) WBC 20.4(H) 3.8 - 9.9 K/cumm Hgb 8.1(L) 11.9 - 15.5 g/dL [facility] Hct 25.2(L) 35.6 - 45.5 % [facility] Plt 125(L) 150 - 400 K/cumm [facility] MPV 9.9 9.1 - 12.3 fL [facility] RBC 2.34(L) 3.90 - 5.20 M/cumm [facility] MCV 107.7(H) 81.3 - 96.4 fL [facility] MCH 34.6(H) 27.1 - 33.3 pg [facility] MCHC 32.1(L) 32.3 - 35.7 g/dL [facility] RDW CV 15.3(H) 11.1 - 14.9 % [facility] RDW SD 60.9(H) 35.7 - 48.1 fL [facility] NRBC abs 0.04(H) 0.00 - 0.01 K/cumm [facility] Blood 02/26/2024 7:22 PM BEDSPREAD CUTTER 02/26/2024 7:40 PM BEDSPREAD CUTTER Beata Pérez NP LAB BLOOD ORDERABLES F inal Result Performing Organization Address City/[facility]/ZIP Co de Phone Number [facility] [place] [address] * (ABNORMAL) Protime-INR (02/26/2024 7:22 PM BEDSPREAD CUTTER) PT 15.5(H) 9.7 - 13.0 sec INR 1.42(H) 0.90 - 1.20 [facility] Comment: Interpretive data Oral anticoagulant therapeutic ranges: Venous thromboembolism prophylaxis or treatment: 2.0-3.0 CARDIOLOGY Standard range: 2.0-3.0 High-intensity range: 2.5-3.5 Refer to indication-specific guidelines for appropriate target ranges for prosthetic heart valve replacement. Current interpretive data was last revised on 2019. Blood 02/26/2024 7:22 PM BEDSPREAD CUTTER 02/26/2024 7:40 PM BEDSPREAD CUTTER Krysten Cohn MD LAB BLOOD ORDERABLES Final Result Performing Organization Address [facility] de Phone Number [facility] [place] [address] * (ABNORMAL) Phosphorus (02/26/2024 7:22 PM BEDSPREAD CUTTER) Pathologist [facility] Phosphorus, pl 6.1(H) 2.3 - 4.5 mg/dL Blood 02/26/2024 7:22 PM BEDSPREAD CUTTER 02/26/2024 7:41 PM BEDSPREAD CUTTER Result [facility] [place] Pérez NP LAB BLOOD ORDERABLES F inal Result Performing Organization Address [facility] de Phone Number [facility] [place] [address] * Magnesium (02/26/2024 7:22 PM BEDSPREAD CUTTER) Pathologist [facility] Magnesium 1.6 1.4 - 2.5 mg/dL Blood 02/26/2024 7:22 PM BEDSPREAD CUTTER 02/26/2024 7:41 PM BEDSPREAD CUTTER Beata Pérez NP LAB BLOOD ORDERABLES F inal Result Performing Organization Address City/[facility] de Phone Number [facility] [place] [address] * (ABNORMAL) Blood gas, venous (02/26/2024 7:22 PM BEDSPREAD CUTTER) pH, Venous 7.31(L) 7.32 - 7.43 PCO2, Venous 60(H) 40 - 50 mmHg [facility] PO2, Venous 47 mmHg [facility] Comment: Interpretive Data No Reference Range Established Current Interpretive Data was last revised on 2017. HCO3 Venous, Calculated 31(H) 20 - 30 mmol/L [facility] BE, venous 3 mmol/L [facility] Comment: Interpretive Data No Reference Range Established Current Interpretive Data was last revised on 2017. Blood 02/26/2024 7:22 PM BEDSPREAD CUTTER 02/26/2024 7:32 PM BEDSPREAD CUTTER Beata Pérez PHARMACY INFORMATICS SPECIALIST LAB BLOOD ORDERABLES F inal Result Performing Organization Address [facility] de Phone Number [facility] [place] [address] * (ABNORMAL) Comprehensive metabolic panel (02/26/2024 7:22 PM BEDSPREAD CUTTER) Pathologist [facility] Sodium 136 135 - 145 mmol/L Potassium, pl 3.5 3.3 - 4.9 mmol/L [facility] Chloride 95(L) 97 - 110 mmol/L [facility] CO2 29 22 - 32 mmol/L [facility] Anion gap 12 2 - 15 mmol/L [facility] BUN 50(H) 6 - 25 mg/dL [facility] Creatinine 3.28(H) 0.60 - 1.10 mg/dL [facility] Glucose 106 70 - 199 mg/dL [facility] Comment: Interpretive Data Fasting glucose >/= 126 mg/dl is diagnostic for diabetes. Fasting is defined as no caloric intake for at least 8 hours. Fasting glucose between 100 mg/dl to 125 mg/dl is diagnostic of prediabetes. In a patient with classic symptoms of hyperglycemia or hyperglycemic crisis, a random glucose >/= 200 mg/dl is diagnostic for diabetes. In the absence of unequivocal hyperglycemia, results should be confirmed by repeat testing. The classification and Diagnosis of Diabetes Diabetes Care 2021; 46: S19-S40. Current interpretive data was last revised 2022. Calcium 8.4(L) 8.5 - 10.3 mg/dL [facility] Bilirubin, total 0.6 0.1 - 1.2 mg/dL [facility] Protein, pl 5.5(L) 6.5 - 8.5 g/dL [facility] Albumin 2.3(L) 3.5 - 5.0 g/dL [facility] Alk phos 190(H) 40 - 130 Units/L [facility] ALT 11 7 - 45 Units/L [facility] AST 32 10 - 45 Units/L [facility] Blood 02/26/2024 7:22 PM BEDSPREAD CUTTER 02/26/2024 7:41 PM BEDSPREAD CUTTER us Krysten Cohn MD LAB BLOOD ORDERABLES Final Result [facility] [place] [address] * XR Chest 1 View (02/26/2024 6:26 PM BEDSPREAD CUTTER) Anatomical Region Laterality Modality Body, Chest N/A Computed Radiogr aphy 02/26/2024 8:26 PM BEDSPREAD CUTTER Impressions 02/26/2024 8:26 PM BEDSPREAD CUTTER The current study is compared with the prior radiograph dated earlier film same day at 11:50 AM. A right internal jugular catheter is in place, tip overlies the superior vena cava.. The heart and mediastinal contours are stable.. There is no pneumothorax. No effusions. Patchy multifocal airspace opacities are seen bilaterally may be due to a pneumonia. These are slightly worse than on the prior study. Right total shoulder arthroplasty partially imaged Electronically signed by: Alexa Hernández M.D. Narrative 02/26/2024 8:26 PM BEDSPREAD CUTTER EXAMINATION: 1 view chest radiograph Procedure Note Alexa Hernández MD - 02/26/2024 EXAMINATION: 1 view chest radiograph IMPRESSION: The current study is compared with the prior radiograph dated earlier film same day at 11:50 AM. A right internal jugular catheter is in place, tip overlies the superior vena cava.. The heart and mediastinal contours are stable.. There is no pneumothorax. No effusions. Patchy multifocal airspace opacities are seen bilaterally may be due to a pneumonia. These are slightly worse than on the prior study. Right total shoulder arthroplasty partially imaged Electronically signed by: Alexa Hernández M.D. Beata Pérez PHARMACY INFORMATICS SPECIALIST IMG XR PROCEDURES Nicole l Result * (ABNORMAL) Blood gas, venous (02/26/2024 5:14 PM BEDSPREAD CUTTER) pH, Venous 7.31(L) 7.32 - 7.43 PCO2, Venous 58(H) 40 - 50 mmHg [facility] PO2, Venous 49 mmHg [facility] Comment: Interpretive Data No Reference Range Established Current Interpretive Data was last revised on 2017. HCO3 Venous, Calculated 30 20 - 30 mmol/L [facility] BE, venous 2 mmol/L [facility] Comment: Interpretive Data No Reference Range Established Current Interpretive Data was last revised on 2017. Blood 02/26/2024 5:14 PM BEDSPREAD CUTTER 02/26/2024 5:37 PM BEDSPREAD CUTTER Beata Pérez NP LAB BLOOD ORDERABLES F inal Result [facility] [place] [address] * CT Chest PE (CTA) W Contrast (02/26/2024 4:33 PM BEDSPREAD CUTTER) Anatomical Region Laterality Modality Body N/A Computed Tomogra phy 02/26/2024 4:39 PM BEDSPREAD CUTTER Impressions 02/26/2024 4:42 PM BEDSPREAD CUTTER No pulmonary embolism. Findings of mild-moderate pulmonary edema. Dictated by: Cuca Bhakta MD, MPH The radiology attending physician has personally reviewed this study, and had reviewed and/or edited this written report and agrees with it. Electronically signed by: Kehinde Otto M.D., MPH Narrative 02/26/2024 4:42 PM BEDSPREAD CUTTER EXAMINATION: CT CHEST PE (CTA) W CONTRAST HISTORY: Recent right total shoulder arthroplasty with elevated d-dimer TECHNIQUE: Computed tomographic images were acquired using a chest angiographic protocol optimized for pulmonary embolism. Contrast enhanced transaxial images were obtained following the intravenous administration of 115 ml of nonionic contrast. Multiplanar reformatted images and three-dimensional images were obtained on the 3-D workstation and sent to the PACS archival system. COMPARISON: None FINDINGS: Central airways are patent. Right internal jugular central venous catheter with tip terminating in the superior vena cava. There are patchy and adenike-bronchovascular and peripheral groundglass opacities seen throughout the lungs with mild septal line thickening consistent with mild-moderate pulmonary edema. Minimal bibasilar atelectasis. No pleural effusion. No pneumothorax. The thyroid tissue is unremarkable. No suspicious supraclavicular or axillary lymphadenopathy. No suspicious mediastinal or hilar lymphadenopathy. Calcified right hilar lymphadenopathy, likely sequelae of old granulomatous disease. Moderate cardiomegaly with enlargement/dilatation of all 4 chambers. No pericardial effusion. No pulmonary emboli. No significant atherosclerosis of the thoracic aorta. The distal esophagus is unremarkable. Small hiatal hernia. Diffuse hepatic steatosis. Unchanged mild adreniform thickening of the left adrenal gland. Postsurgical changes of gastric bypass. No suspicious osseous lesions. Degenerative disease of the spine. Procedure Note Kehinde Otto MD - 02/26/2024 EXAMINATION: CT CHEST PE (CTA) W CONTRAST HISTORY: Recent right total shoulder arthroplasty with elevated d-dimer TECHNIQUE: Computed tomographic images were acquired using a chest angiographic protocol optimized for pulmonary embolism. Contrast enhanced transaxial images were obtained following the intravenous administration of 115 ml of nonionic contrast. Multiplanar reformatted images and three-dimensional images were obtained on the 3-D workstation and sent to the PACS archival system. COMPARISON: None FINDINGS: Central airways are patent. Right internal jugular central venous catheter with tip terminating in the superior vena cava. There are patchy and adenike-bronchovascular and peripheral groundglass opacities seen throughout the lungs with mild septal line thickening consistent with mild-moderate pulmonary edema. Minimal bibasilar atelectasis. No pleural effusion. No pneumothorax. The thyroid tissue is unremarkable. No suspicious supraclavicular or axillary lymphadenopathy. No suspicious mediastinal or hilar lymphadenopathy. Calcified right hilar lymphadenopathy, likely sequelae of old granulomatous disease. Moderate cardiomegaly with enlargement/dilatation of all 4 chambers. No pericardial effusion. No pulmonary emboli. No significant atherosclerosis of the thoracic aorta. The distal esophagus is unremarkable. Small hiatal hernia. Diffuse hepatic steatosis. Unchanged mild adreniform thickening of the left adrenal gland. Postsurgical changes of gastric bypass. No suspicious osseous lesions. Degenerative disease of the spine. IMPRESSION: No pulmonary embolism. Findings of mild-moderate pulmonary edema. Dictated by: Cuca Bhakta MD, MPH The radiology attending physician has personally reviewed this study, and had reviewed and/or edited this written report and agrees with it. Electronically signed by: Kehinde Otto M.D., MPH Krysten Cohn MD IMG CT PROCEDURES Fin al Result * CT Entire Lower Extremity Left W Contrast (02/26/2024 4:33 PM BEDSPREAD CUTTER) Anatomical Region Laterality Modality Lower Extremities Left Computed Tomog sheela 02/26/2024 5:07 PM BEDSPREAD CUTTER Impressions 02/26/2024 5:13 PM BEDSPREAD CUTTER 1. Large left prepatellar rim-enhancing fluid collection with internal globules of fat, which could represent sequelae of closed degloving injury with possible superinfection or a developing abscess/septic bursitis. 2. Severe left knee osteoarthritis with a small joint effusion and no acute fracture. Dictated by: Kit Olivarez M.D. The radiology attending physician has personally reviewed this study, and had reviewed and/or edited this written report and agrees with it. Electronically signed by: John Contreras M.D. Narrative 02/26/2024 5:13 PM BEDSPREAD CUTTER EXAMINATION: CT ENTIRE LOWER EXTREMITY LEFT W CONTRAST HISTORY: 53 years-old Female with c/f necrotizing soft tissue infection. TECHNIQUE: Transaxial computed tomographic images of the left lower extremity were obtained after the administration of Optiray 350, 115 mL. Coronal and sagittal reformations were performed and also reviewed. COMPARISON: Same day radiographs reviewed. FINDINGS: There is a large prepatellar fluid collection with rim enhancement and floating internal globules of fat, measuring approximately 19 cm x 16 cm x 14 cm. There is no evidence of osseous erosion or soft tissue gas. Extensive varicosities are present throughout the lower extremities. There is diffuse subcutaneous soft tissue edema, pronounced along the ankle and anterior foot. There is osteoarthritis of the left knee without significant knee effusion. There is an Achilles tendon enthesophyte and small heel spur. No acute fracture in the imaged osseous structures. Procedure Note John Contreras MD - 02/26/2024 EXAMINATION: CT ENTIRE LOWER EXTREMITY LEFT W CONTRAST HISTORY: 53 years-old Female with c/f necrotizing soft tissue infection. TECHNIQUE: Transaxial computed tomographic images of the left lower extremity were obtained after the administration of Optiray 350, 115 mL. Coronal and sagittal reformations were performed and also reviewed. COMPARISON: Same day radiographs reviewed. FINDINGS: There is a large prepatellar fluid collection with rim enhancement and floating internal globules of fat, measuring approximately 19 cm x 16 cm x 14 cm. There is no evidence of osseous erosion or soft tissue gas. Extensive varicosities are present throughout the lower extremities. There is diffuse subcutaneous soft tissue edema, pronounced along the ankle and anterior foot. There is osteoarthritis of the left knee without significant knee effusion. There is an Achilles tendon enthesophyte and small heel spur. No acute fracture in the imaged osseous structures. IMPRESSION: 1. Large left prepatellar rim-enhancing fluid collection with internal globules of fat, which could represent sequelae of closed degloving injury with possible superinfection or a developing abscess/septic bursitis. 2. Severe left knee osteoarthritis with a small joint effusion and no acute fracture. Dictated by: Kit Olivarez M.D. The radiology attending physician has personally reviewed this study, and had reviewed and/or edited this written report and agrees with it. Electronically signed by: John Contreras M.D. us Krysten Cohn MD IMG CT PROCEDURES Fin al Result * POCT glucose (02/26/2024 3:34 PM BEDSPREAD CUTTER) Glucose, POC 114 70 - 199 mg/dL Blood 02/26/2024 3:34 PM BEDSPREAD CUTTER 02/26/2024 3:34 PM BEDSPREAD CUTTER us Krysten Cohn MD LAB POCT ORDERABLES - DEVICE Final Result Performing Organization Address City/State/[facility] Co de Phone Number MADELEINE DEY [facility] Department of Laboratories [place], [place] [id number] * US Vein Duplex Lower Extremity Bilateral Complete (02/26/2024 12:41 PM BEDSPREAD CUTTER) Anatomical Region Laterality Modality Vascular Bilateral Ultrasound 02/26/2024 11:3 1 AM BEDSPREAD CUTTER Narrative 02/27/2024 10:22 PM BEDSPREAD CUTTER [facility] - Department of Vascular Surgery, Vascular Laboratory [address] [place] [id number] Lower Extremity Venous Ultrasound Report Patient Name: NOLVIA BRANCH M : 1970 (53y 11m) Study Date: 02/26/2024 11:31:12 AM Gender: F Tech: [facility] Location: [id number] Ref Provider: ANDREZ MOYER Quality: Adequate Order Provider: ANDREZ MOYER PROCEDURES: Vascular Report: Venous Duplex imaging was performed bilaterally in the lower extremities. The common femoral, femoral, popliteal, posterior tibial, peroneal veins were evaluated for patency, spontaneity and phasicity with Doppler, compression and augmentation maneuvers. Great saphenous vein proximal at the junction was evaluated with compression maneuvers. INDICATIONS: bilateral lower extremity swelling - FINDINGS: Performing [employer] Supervisor: Merna Grimme, RDMS, RVT. Bilateral: Venous Doppler signals in the bilateral lower extremity are within normal limits for spontaneity and phasicity and respond normally to augmentation maneuvers. No evidence of deep vein thrombus by duplex, proximal to the calf. Comments: Left popliteal vein not visualized due to open wounds. Technically difficult and limited study due to patient body habitus, pain level and depth of vessels. Limited protocol utilized due to patient pain level. CONCLUSIONS: 1. There is no evidence of acute deep vein thrombosis in the lower extremities bilaterally. Noninvasive venous studies cannot rule out isolated calf vein obstruction. 2. Left popliteal vein not visualized due to open wounds. Technically difficult and limited study due to patient body habitus, pain level and depth of vessels. Limited protocol utilized due to patient pain level. HISTORY: Respiratory failure MARY - PREVIOUS STUDIES: Previous study performed on 07/11/2022 (negative). DISCLAIMER: The study images and the final report will be retained in the patient chart by the Vascular Laboratory for the legally required time period. This chart constitutes the legal record of any testing performed. ATTESTATION: I have reviewed and interpreted the pertinent images and measurements of this study. I attest to the conclusions in the final report that is provided above. Electronically Signed By: Ander Jaffe MD FACS 02/27/2024 10:22:04 PM BEDSPREAD CUTTER Procedure Note Ander Jaffe MD - 02/27/2024 [facility] - Department of Vascular Surgery,Vascular Laboratory [address] [place] [id number] Lower Extremity Venous Ultrasound Report Patient Name: NOLVIA BRANCH M : 1970 (53y 11m) Study Date: 02/26/2024 11:31:12 AM Gender: F Tech: [facility] Location: [id number] Ref Provider: ANDREZ MOYER Quality: Adequate Order Provider: ANDREZ MOYER PROCEDURES: Vascular Report: Venous Duplex imaging was performed bilaterally in the lower extremities.The common femoral, femoral, popliteal, posterior tibial, peroneal veins wereevaluated for patency, spontaneity and phasicity with Doppler, compression and augmentationmaneuvers. Great saphenous vein proximal at the junction was evaluated with compressionmaneuvers. INDICATIONS: bilateral lower extremity swelling - FINDINGS: Performing [employer]printing And Photocopy Supervisor: Merna Lynne RDMS, T. Bilateral: Venous Doppler signals in the bilateral lower extremity are within normallimits for spontaneity and phasicity and respond normally to augmentation maneuvers.No evidence of deep vein thrombus by duplex, proximal to the calf. Comments: Left popliteal vein not visualized due to open wounds. Technicallydifficult and limited study due to patient body habitus, pain level and depth of vessels.Limited protocol utilized due to patient pain level. CONCLUSIONS: 1. There is no evidence of acute deep vein thrombosis in the lowerextremities bilaterally. Noninvasive venous studies cannot rule out isolated calf veinobstruction. 2. Left popliteal vein not visualized due to open wounds. Technicallydifficult and limited study due to patient body habitus, pain level and depth ofvessels. Limited protocol utilized due to patient pain level. HISTORY: Respiratory failure MARY - PREVIOUS STUDIES: Previous study performed on 07/11/2022 (negative). DISCLAIMER: The study images and the final report will be retained in the patientchart by the Vascular Laboratory for the legally required time period. This chartconstitutes the legal record of any testing performed. ATTESTATION: I have reviewed and interpreted the pertinent images and measurements ofthis study. I attest to the conclusions in the final report that is provided above. Electronically Signed By: Ander Jaffe MD [facility] 02/27/2024 10:22:04 PM BEDSPREAD CUTTER Andrez Moyer MD [facility] US PROCEDURES Final Result * XR Chest 1 View (02/26/2024 12:35 PM BEDSPREAD CUTTER) Anatomical Region Laterality Modality Body, Chest N/A Computed Radiogr aphy 02/26/2024 12:5 0 PM BEDSPREAD CUTTER Impressions 02/26/2024 12:50 PM BEDSPREAD CUTTER Comparison is made to chest radiograph dated 02/26/2024 at 8:33 AM. Right internal jugular venous approach catheter tip overlies the confluence of the brachiocephalic veins and superior vena cava. Small lung volumes with mild interstitial edema and linear atelectasis scattered throughout both lungs. No definite pleural effusion. No pneumothorax. Stable cardiomediastinal silhouette. Partially imaged right shoulder arthroplasty. Electronically signed by: Minnie Rivera M.D. Narrative 02/26/2024 12:50 PM BEDSPREAD CUTTER EXAMINATION: 1 view chest radiograph Procedure Note Minnie Rivera MD - 02/26/2024 EXAMINATION: 1 view chest radiograph IMPRESSION: Comparison is made to chest radiograph dated 02/26/2024 at 8:33 AM. Right internal jugular venous approach catheter tip overlies the confluence of the brachiocephalic veins and superior vena cava. Small lung volumes with mild interstitial edema and linear atelectasis scattered throughout both lungs. No definite pleural effusion. No pneumothorax. Stable cardiomediastinal silhouette. Partially imaged right shoulder arthroplasty. Electronically signed by: Minnie J Nicole, M.D. Krysten Cohn MD IMG XR PROCEDURES Fin al Result * Blood culture Blood (02/26/2024 12:35 PM BEDSPREAD CUTTER) Report Final Report: No growth Blood 02/26/2024 12:3 5 PM BEDSPREAD CUTTER 02/26/2024 1:25 PM BEDSPREAD CUTTER Narrative MADELEINE TERRY - 03/01/2024 4:00 PM BEDSPREAD CUTTER From a different site than #1. Collection->Peripheral 1. Blood cultures are incubated for 4 days on a continuously monitored blood culture system. The first report of a negative culture is issued within 24 hours of receipt of the specimen in the laboratory. 2. Positive culture results are reported as soon as they are detected. 3. The most important factor for detection of microbes in the setting of bloodstream infection is the volume of blood submitted for culture. Failure to collect an optimal blood volume can result in false negative blood cultures. 4. For pediatric patients, the recommended blood volume to collect follows a weight based strategy. See the electronic test catalog for collection instructions. 5. For positive blood cultures, a rapid molecular test may be performed for organism identification using the tru ePlex blood culture identification panel for gram positive (BCID-GP) and gram negative (BCID-GN) organisms. This nucleic acid amplification test detects microbial DNA in positive blood culture broth. This assay has been cleared by the [place] Food and Drug Administration and its performance characteristics have been verified by the [facility] Microbiology Laboratory. For questions about this culture, contact the Microbiology Laboratory at [phone]. Interpretive data was last revised on 23. us Krysten Cohn MD LAB MICROBIOLOGY - NERAL ORDERABLES Final Result MADELEINE DEY [facility] [place] [address] * Oxyhemoglobin, central venous (02/26/2024 12:24 PM BEDSPREAD CUTTER) Oxyhemoglobin, CV 73.1 % Comment: Interpretive Data No reference range established. Current interpretive data was last revised 2019. Blood 02/26/2024 12:2 4 PM BEDSPREAD CUTTER 02/26/2024 12:31 PM BEDSPREAD CUTTER Krysten Cohn MD LAB BLOOD ORDERABLES Final Result Performing Organization Address [facility] Co de Phone Number [facility] [place] [address] * (ABNORMAL) Erythrocyte sedimentation rate (02/26/2024 12:18 PM BEDSPREAD CUTTER) Pathologist [facility] Erythrocyte sedimentation rate 67(H) 1 - 30 mm/hr Blood 02/26/2024 12:1 8 PM BEDSPREAD CUTTER 02/26/2024 12:50 PM BEDSPREAD CUTTER Result [facility] Beata Pérez NP LAB BLOOD ORDERABLES F inal Result Performing Organization Address [facility] de Phone Number [facility] [place] [place] [address] * (ABNORMAL) CRP (acute phase) (02/26/2024 12:18 PM BEDSPREAD CUTTER) Pathologist [facility] CRP 541.4(H) <=10.0 mg/L Comment:Repeated on Dilution Blood 02/26/2024 12:1 8 PM BEDSPREAD CUTTER 02/26/2024 12:49 PM BEDSPREAD CUTTER Beata Pérez NP LAB BLOOD ORDERABLES F inal Result Performing Organization Address [facility] de Phone Number [facility] [place] [address] * (ABNORMAL) Blood gas, venous (02/26/2024 12:18 PM BEDSPREAD CUTTER) pH, Venous 7.31(L) 7.32 - 7.43 PCO2, Venous 58(H) 40 - 50 mmHg [facility] PO2, Venous 39 mmHg [facility] Comment: Interpretive Data No Reference Range Established Current Interpretive Data was last revised on 2017. HCO3 Venous, Calculated 30 20 - 30 mmol/L [facility] BE, venous 2 mmol/L [facility] Comment: Interpretive Data No Reference Range Established Current Interpretive Data was last revised on 2017. Blood 02/26/2024 12:1 8 PM BEDSPREAD CUTTER 02/26/2024 12:31 PM BEDSPREAD CUTTER Beata Pérez NP LAB BLOOD ORDERABLES F inal Result Performing Organization Address City/[facility] Co de Phone Number [facility] [place] [address] * POCT glucose (02/26/2024 11:45 AM BEDSPREAD CUTTER) Glucose, POC 80 70 - 199 mg/dL Blood 02/26/2024 11:4 5 AM BEDSPREAD CUTTER 02/26/2024 11:45 AM BEDSPREAD CUTTER Krysten Cohn MD LAB POCT ORDERABLES - DEVICE Final Result Performing Organization Address [facility] de Phone Number [facility] [place] [address] * [place] ARTL CATHJ/CANNULJ MNTR/TRANSFUSION SPX PRQ (02/26/2024 11:24 AM BEDSPREAD CUTTER) Narrative Andrez Moyer MD - 02/26/2024 11:24 AM BEDSPREAD CUTTER Odalis Beebe MD 02/26/2024 11:26 AM Arterial Line Insertion Date/Time: 02/26/2024 11:24 AM Performed by: Odalis Beebe MD Authorized by: Odalis Beebe MD [place] Protocol: RN Notified of Procedure: yes Informed consent: Patient/labor relations representative/guardian agrees and accepts Patient's stated name/ matches armband: Yes and patient unable to verbalize - armband matched to name and within medical record Consent form signed, dated, timed; matches correct patient, intended procedure and site: Yes Imaging: Pertinent imaging reviewed, correctly oriented and match to patient identifiers Lab/Diag test results: Pertinent lab/diag tests reviewed and match to patient identifiers Indications: multiple ABGs and hemodynamic monitoring Location: Left axillary (multiple failed arterial line attempts in other vessels) Patient skin preparation: chlorhexidine Ultrasound guidance: Pre-procedure diagnostic and real-time needle guidance Patient preparation: Cap, gloves, gown and sterile probe cover Catheter gauge: 18 Catheter length (cm): 12 Single percutaneous needle puncture: No Seldinger technique used: Yes Number of attempts: 3 Placement confirmed with arterial waveform: No Complications: hematoma during insertion Multiple cannulation attempts at L axillary artery. Able to access vessel, but unable to pass wire, procedure aborted as unsuccessful. Direct pressure held over access site. us Odalis Beebe MD IV THERAPY ORDERABLES Final Result * (ABNORMAL) Blood culture Blood (02/26/2024 11:13 AM BEDSPREAD CUTTER) Pathologist [facility] Direct Specimen Exam Molecular Analysis: Staphylococcus epidermidis (methicillin-resis tant) detected by [facility] BCID-GP panel. Single positive culture may represent contamination. This test does not exclude the possibility of a mixed bacterial infection. Notification of: Staphylococcus epidermidis (methicillin-resis tant) called to and read back by: Jones London MD, on 02/27/2024 10:23:47 by: Jarret Harrison([facility]) Direct Specimen Exam Stain: Gram Positive Cocci in clusters Time to culture positivity (aerobic media): 18.7 hours Notification of: Gram Positive Cocci in clusters called to and read back by: Jones London MD, on 02/27/2024 08:40:08 by: Jarret Harrison([facility]) [facility] Report Final Report: Staphylococcus epidermidis Single blood culture positive for this microorganism. Isolate is a possible contaminant. If a similar isolate is recovered from a second blood culture collected within 3 days of this culture, both will be evaluated and, if determined to be the same species, antimicrobial susceptibility testing will be performed. (.) [facility] Organism STAPHYLOCOCCUS EPIDERMIDIS [facility] Blood 02/26/2024 11:1 3 AM BEDSPREAD CUTTER 02/26/2024 1:24 PM BEDSPREAD CUTTER Narrative [facility] - 03/02/2024 9:35 AM BEDSPREAD CUTTER Collection->Peripheral 1. Blood cultures are incubated for 4 days on a continuously monitored blood culture system. The first report of a negative culture is issued within 24 hours of receipt of the specimen in the laboratory. 2. Positive culture results are reported as soon as they are detected. 3. The most important factor for detection of microbes in the setting of bloodstream infection is the volume of blood submitted for culture. Failure to collect an optimal blood volume can result in false negative blood cultures. 4. For pediatric patients, the recommended blood volume to collect follows a weight based strategy. See the electronic test catalog for collection instructions. 5. For positive blood cultures, a rapid molecular test may be performed for organism identification using the [facility] blood culture identification panel for gram positive (BCID-GP) and gram negative (BCID-GN) organisms. This nucleic acid amplification test detects microbial DNA in positive blood culture broth. This assay has been cleared by the [place] Food and Drug Administration and its performance characteristics have been verified by the [facility]. For questions about this culture, contact the Microbiology Laboratory at [phone]. Interpretive data was last revised on 23. us Krysten Cohn MD LAB MICROBIOLOGY - [employer] ORDERABLES Final Result [facility] [place] [address] * TRANSTHORACIC ECHO (TTE) COMPLETE W DOPPLER/CF W CONTRAST (02/26/2024 10:03 AM BEDSPREAD CUTTER) LV EF 55 % CARDIOREPORT Anatomical Region Laterality Modality Ultrasound 02/26/2024 9:30 AM BEDSPREAD CUTTER Narrative 02/26/2024 10:21 AM BEDSPREAD CUTTER Patient name: Nolvia Branch Date of test: 02/26/2024 Type of test: TTE w/Doppler Hospital #: 0 Date of : 1970 (F) [employer] Supervisor: Marley Barnett RDCS Referring Physician: ANRDEZ MOYER MD Contrast Agent: 1.1 ml Optison Administered, (1.9 ml wasted). Contrast Administered by: reza SHEIKH Supervised/Interpreted by: Pastora Rodriguez MD Diagnosis: Dyspnea/Shortness of breath Location: [facility] Reason for test: Acute hypoxia w/ RV dilation, please obtain Pulmonary valve accelaration time if able. MV Structure: normal, MV Motion: normal, Mitral Annulus: normal AV Structure: tricuspid and is Normal, AV Motion: Normal Aotic root: normal, TM: normal, PV: normal PV Valvular Vegetations: , Mass/Thrombi: RA: normal Measurements: M-Mode Normal Aotic Root: <3.8 LA: <3.8 RV: <2.8 LV(ED): <5.7 LV(ES): Variable 2D Linear Normal Aotic Root: 2.9 cm <3.6 Ao Indexed: 1.2 cm/M2 <2.0 LA: <3.8 RV: 4.6 cm <4.2 LV(ED): 5.3 cm <5.3 LV(ES): 4.0 cm <3.5 2D Vol. Normal Indexed Indexed Normal RA: 45.0 ml 18.4 ml/M2 9-33 LA: 74.0 ml 30.3 ml/M2 16-34 RV: <11.6 LV(ED): 216.0 ml 46-106 88.5 ml/M2 <62 LV(ES): 100.0 ml 14-42 41.0 ml/M2 <25 3D Vol. Indexed Normal LV(ED): <62 LV(ES): <24 LV EF: 55 % (Normal: >=54%) LV Septum: 0.9 cm (Normal: <0.9 cm) Wall Motion Scoring (1=Normal 2=Hypo 3=Akinetic 4=Dyskin./Aneurysm 0=Not visualized) Parasternal Long Grandin:MAS=1 BAS=1 MIL=1 COY=1 Parasternal Short [place]in:MAS=1 MIS=1 OR=1 MIL=1 MAL=1 MA=1 Apical 4 Chambers:=1 MIS=1 BIS=1 BAL=1 MAL=1 AL=1 AC=1 Apical 2 Chambers:AI=1 OR=1 BI=1 BA=1 MA=1 AA=1 AC=1 LV Global Longitudinal Strain: -16.9% (Normal <-17%) RV Global Longitudinal Strain: -19.4% (Normal <-17%) LV Function: Normal LV Ejection Fraction, (EF=54-74%) RV Function: Normal Septal Motion: flattened-increased RV press. Pericardial Effusion: none seen Atrial Septum: DOPPLER/COLOR FLOW DOPPLER RESULTS: Diastolic Function: normal Tricuspid Valve: mild TV regurgitation Pulmonic Valve: normal PV AV Regurgitation: No AR seen AV Stenosis: no AV Area: cm2 AV Pressure Gradient (mmHg): Mean: 0, Peak:0 MV Regurgitation: Mild MR MV Stenosis: no MS MV Area: cm2 MV Pressure Gradient (mmHg): Mean: 0 MV ERO: cm Regurg. Vol.: ml/beat Regurg. Frac.: % PA Pressure: mmHg DOPPLER/COLOR FOLOW DOPPLER COMMENTS: No AR seen, Mild MR, no , no MS, mild TV regurgitation, normal PV. Diastolic function: normal CONTRAST: 1.1 ml Optison Administered, (1.9 ml wasted). SUMMARY: LV id moderately dilated with normal systolic function. LVEF 55-60%. There is a flattened septum during systole although estimated PASP are not elevated. Normal diastolic function. GLS -16.9%. RV is dilated (measuring 4.6cm at base) with normal function by TAPSE and S'. Normal PV Accel time (100-120ms). RV GLS -19.4%. Mild TR, PASP 21 mmHg + RAP. IVC is normal in size but collapses <50% (pt on BiPAP). Mild MR. No prior for comparison. Confirmed on 02/26/2024 - 10:21:57 by Pastora Rodriguez MD By signing this report, the attending citizenship instructor certifies that he or she has personally supervised and interpreted the echocardiogram and has reviewed and or edited and agrees with the written comments contained within the report. Procedure Note Dave Rodriguez MD - 02/26/2024 Patient name: Nolvia Branch Date of test: 02/26/2024 Type of test: TTE w/Doppler [facility] #: 0 Date of : 1970 (F) [employer] Supervisor: Marley Barnett [facility] Referring Physician: ANDREZ MOYER MD Contrast Agent: 1.1 ml Optison Administered, (1.9 ml wasted). Contrast Administered by: reza RN Supervised/Interpreted by: Pastora Rodriguez MD Diagnosis: Dyspnea/Shortness of breath Location: [facility] Reason for test: Acute hypoxia w/ RV dilation, please obtain Pulmonary valve accelaration time if able. MV Structure: normal, MV Motion: normal, Mitral Annulus: normal AV Structure: tricuspid and is Normal, AV Motion: Normal Aotic root: normal, TM: normal, PV: normal PV Valvular Vegetations: , Mass/Thrombi: RA: normal Measurements: M-Mode Normal Aotic Root: <3.8 LA: <3.8 RV: <2.8 LV(ED): <5.7 LV(ES): Variable 2D Linear Normal Aotic Root: 2.9 cm <3.6 Ao Indexed: 1.2 cm/M2 <2.0 LA: <3.8 RV: 4.6 cm <4.2 LV(ED): 5.3 cm <5.3 LV(ES): 4.0 cm <3.5 2D Vol. Normal Indexed Indexed Normal RA: 45.0 ml 18.4 ml/M2 9-33 LA: 74.0 ml 30.3 ml/M2 16-34 RV: <11.6 LV(ED): 216.0 ml 46-106 88.5 ml/M2 <62 LV(ES): 100.0 ml 14-42 41.0 ml/M2 <25 3D Vol. Indexed Normal LV(ED): <62 LV(ES): <24 LV EF: 55 % (Normal: >=54%) LV Septum: 0.9 cm (Normal: <0.9 cm) Wall Motion Scoring (1=Normal 2=Hypo 3=Akinetic 4=Dyskin./Aneurysm 0=Not visualized) Parasternal Long Grandin:MAS=1 BAS=1 MIL=1 COY=1 Parasternal Short Grandin:MAS=1 MIS=1 OR=1 MIL=1 MAL=1 MA=1 Apical 4 Chambers:=1 MIS=1 BIS=1 BAL=1 MAL=1 AL=1 AC=1 Apical 2 Chambers:AI=1 OR=1 BI=1 BA=1 MA=1 AA=1 AC=1 LV Global Longitudinal Strain: -16.9% (Normal <-17%) RV Global Longitudinal Strain: -19.4% (Normal <-17%) LV Function: Normal LV Ejection Fraction, (EF=54-74%) RV Function: Normal Septal Motion: flattened-increased RV press. Pericardial Effusion: none seen Atrial Septum: DOPPLER/COLOR FLOW DOPPLER RESULTS: Diastolic Function: normal Tricuspid Valve: mild TV regurgitation Pulmonic Valve: normal PV AV Regurgitation: No AR seen AV Stenosis: no AV Area: cm2 AV Pressure Gradient (mmHg): Mean: 0, Peak:0 MV Regurgitation: Mild MR MV Stenosis: no MS MV Area: cm2 MV Pressure Gradient (mmHg): Mean: 0 MV ERO: cm Regurg. Vol.: ml/beat Regurg. Frac.: % PA Pressure: mmHg DOPPLER/COLOR FOLOW DOPPLER COMMENTS: No AR seen, Mild MR, no , no MS, mild TV regurgitation, normal PV. Diastolic function: normal CONTRAST: 1.1 ml Optison Administered, (1.9 ml wasted). SUMMARY: LV id moderately dilated with normal systolic function. LVEF 55-60%. There is a flattened septum during systole although estimated PASP are not elevated. Normal diastolic function. GLS -16.9%. RV is dilated (measuring 4.6cm at base) with normal function by TAPSE and S'. Normal PV Accel time (100-120ms). RV GLS -19.4%. Mild TR, PASP 21 mmHg + RAP. IVC is normal in size but collapses <50% (pt on BiPAP). Mild MR. No prior for comparison. Confirmed on 02/26/2024 - 10:21:57 by Pastora Rodriguez MD By signing this report, the attending citizenship instructor certifies that he or she has personally supervised and interpreted the echocardiogram and has reviewed and or edited and agrees with the written comments contained within the report. Result [facility] [place] Andrez Moyer MD CV ECHO PROCEDURES Final Result * [place] INSJ NON-TUNNELED CENTRAL VENOUS CATH AGE 5 YR/> (02/26/2024 10:00 AM BEDSPREAD CUTTER) Narrative Andrez Moyer MD - 02/26/2024 10:00 AM BEDSPREAD CUTTER Ann Whitmore MD 02/27/2024 2:43 PM Trialysis catheter insertion Date/Time: 02/26/2024 10:00 AM Performed by: Ann Whitmore MD Authorized by: Ann Whitmore MD [place] Protocol: RN Notified of Procedure: yes Informed consent: Risks, benefits, alternatives discussed Patient's stated name/ matches armband: Patient unable to verbalize - armband matched to name and within medical record Allergies confirmed: yes Consent form signed, dated, timed; matches correct patient, intended procedure and site: Yes Imaging: Pertinent imaging reviewed, correctly oriented and match to patient identifiers Lab/Diag test results: Pertinent lab/diag tests reviewed and match to patient identifiers Supplies, devices and special equipment are available: yes Immediately prior to the procedure a time out was called: a verbal verification by the procedure participants confirmed correct patient identity, correct site/side marked and visible (if applicable); agreement on procedure to be done; and correct patient positioning Indications: Dialysis Anesthesia (see MAR for exact dosage) Anesthesia method: Local infiltration Local anesthetic: Lidocaine 1% Patient position: Flat Skin preparation: Skin prepped with 2% chlorhexidine Provider preparation: Cap, full body drape, gloves, gown, handwashing and mask Location: Right internal jugular Ultrasound guidance: Real-time needle guidance Assessment: Blood return through all ports, free fluid flow and placement verified by x-ray Catheter type: Dialysis catheter Needle inserted, vein idenitified then guidewire inserted easily into vein: Yes Number of attempts: 1 Successful placement: Yes Catheter secured at (cm): 15 Catheter length (cm): 15 Line securement: Line sutured and dressing applied Patient tolerance: Patient tolerated the procedure well with no immediate complications Ann Whitmore MD IN CLINIC/BEDSIDE ORDERABLES Fi nal Result * (ABNORMAL) POC Blood Gas and Chemistries, Venous - (02/26/2024 9:56 AM BEDSPREAD CUTTER) pH, Morris POC 7.32 7.32 - 7.43 pCO2, morris POC 56(H) 40 - 50 mmHg [facility] pO2, morris POC 54 mmHg [facility] Na, POC 136 135 - 145 mmol/L [facility] K POC 3.3 3.3 - 4.9 mmol/L [facility] Comment: Interpretive Data Not all point of care methods assess for hemolysis. Confirm with instrument and retest K+ if not consistent with clinical signs and symptoms. Current Interpretive Data was last revised on 2023. Cl, POC 99 97 - 110 mmol/L [facility] Ionized Ca, POC 4.81 4.50 - 5.10 mg/dL [facility] Glucose, POC 104 70 - 199 mg/dL [facility] Lactate, POC 1.3 0.7 - 2.2 mmol/L [facility] O2 Sat, Morris POC (Angelica) 85 % [facility] Base excess, POC 2.2 mmol/L [facility] HCO3, Morris POC 29 20 - 30 mmol/L [facility] Hct, POC 25.0(L) 36.3 - 45.3 % [facility] Total Hb, POC 8.4(L) 11.9 - 15.5 g/dL [facility] Blood 02/26/2024 9:56 AM BEDSPREAD CUTTER 02/26/2024 9:56 AM BEDSPREAD CUTTER us Krysten Cohn MD LAB POCT ORDERABLES - DEVICE Final Result Performing Organization Address City/[facility] Co de Phone Number [facility] [place] [address] * Lactate (02/26/2024 9:50 AM BEDSPREAD CUTTER) [facility] Lactate 1.3 0.7 - 2.0 mmol/L Blood 02/26/2024 9:50 AM BEDSPREAD CUTTER 02/26/2024 10:12 AM BEDSPREAD CUTTER us Krysten Cohn MD LAB BLOOD ORDERABLES Final Result Performing Organization Address City/[facility] Co de Phone Number [facility] [place] [address] * (ABNORMAL) eGFR (02/26/2024 9:50 AM BEDSPREAD CUTTER) eGFR 15(L) >=60 mL/min/1. 73 m2 Comment: Interpretive Data Reference Interval Normal >/= 90 mL/min/1.73m2 Mildly decreased* 60 - 89 mL/min/1.73m2 Mildly to moderately decreased 45 - 59 mL/min/1.73m2 Moderately to severely decreased 30 - 44 mL/min/1.73m2 Severely decreased 15 - 29 mL/min/1.73m2 Kidney Failure < 15 mL/min/1.73m2 *Relative to young adult level Estimated glomerular filtration rate is determined by the 2020 CKD-EPI equation recommended by the National Kidney Foundation (A Unifying Approach to GFR Estimation: Recommendations of the NKF-ASK Task Force on Reassessing the Inclusion of Race in Diagnosing Kidney Disease, JASN 202). The CKD-EPI equation should not be used for patients with unstable renal function and has not been validated in children and those over 70. Current interpretive data was last reviewed 2021. Blood 02/26/2024 9:50 AM BEDSPREAD CUTTER 02/26/2024 10:12 AM BEDSPREAD CUTTER us Krysten Cohn MD LAB BLOOD ORDERABLES Final Result [facility] [place] [address] * (ABNORMAL) Differential, auto (02/26/2024 9:50 AM BEDSPREAD CUTTER) Neutrophil abs 17.6(H) 1.5 - 6.5 K/cumm Imm gran abs 0.2(H) 0.0 - 0.1 K/cumm [facility] Lymphocyte abs 1.0 0.8 - 3.3 K/cumm [facility] Monocyte abs 1.9(H) 0.2 - 0.8 K/cumm [facility] Eosinophil abs 0.1 0.0 - 0.5 K/cumm [facility] Basophil abs 0.2(H) 0.0 - 0.1 K/cumm [facility] Neutrophil pct 84.5 % [facility] Comment: Interpretive Data Percent cell count reference ranges are not reported, since discordance with absolute values may lead to misinterpretation of CBC data. Current Interpretive Data was last revised on 2017. Imm gran pct 0.9 % [facility] Comment: Interpretive Data Percent cell count reference ranges are not reported, since discordance with absolute values may lead to misinterpretation of CBC data. Current Interpretive Data was last revised on 2017. Lymphocyte pct 4.6 % [facility] Comment: Interpretive Data Percent cell count reference ranges are not reported, since discordance with absolute values may lead to misinterpretation of CBC data. Current Interpretive Data was last revised on 2017. Monocyte pct 8.9 % [facility] Comment: Interpretive Data Percent cell count reference ranges are not reported, since discordance with absolute values may lead to misinterpretation of CBC data. Current Interpretive Data was last revised on 2017. Eosinophil pct 0.3 % [facility] Comment: Interpretive Data Percent cell count reference ranges are not reported, since discordance with absolute values may lead to misinterpretation of CBC data. Current Interpretive Data was last revised on 2017. Basophil pct 0.8 % [facility] Comment: Interpretive Data Percent cell count reference ranges are not reported, since discordance with absolute values may lead to misinterpretation of CBC data. Current Interpretive Data was last revised on 2017. Blood 02/26/2024 9:50 AM BEDSPREAD CUTTER 02/26/2024 10:11 AM BEDSPREAD CUTTER us Krysten Cohn MD LAB BLOOD ORDERABLES Final Result [facility] [place] [address] * (ABNORMAL) CBC with auto differential (02/26/2024 9:50 AM BEDSPREAD CUTTER) WBC 20.8(H) 3.8 - 9.9 K/cumm Hgb 8.3(L) 11.9 - 15.5 g/dL [facility] Hct 26.5(L) 35.6 - 45.5 % [facility] Plt 137(L) 150 - 400 K/cumm [facility] MPV 9.9 9.1 - 12.3 fL [facility] RBC 2.44(L) 3.90 - 5.20 M/cumm [facility] MCV 108.6(H) 81.3 - 96.4 fL [facility] MCH 34.0(H) 27.1 - 33.3 pg [facility] MCHC 31.3(L) 32.3 - 35.7 g/dL [facility] RDW CV 15.4(H) 11.1 - 14.9 % [facility] RDW SD 61.4(H) 35.7 - 48.1 fL [facility] NRBC abs 0.02(H) 0.00 - 0.01 K/cumm [facility] Blood 02/26/2024 9:50 AM BEDSPREAD CUTTER 02/26/2024 10:11 AM BEDSPREAD CUTTER Krysten Cohn MD LAB BLOOD ORDERABLES Final Result Performing Organization Address [facility] de Phone Number [facility] [place] [address] * (ABNORMAL) Blood gas, venous (02/26/2024 9:50 AM BEDSPREAD CUTTER) Pathologist [facility] pH, Venous 7.29(L) 7.32 - 7.43 PCO2, Venous 62(H) 40 - 50 mmHg [facility] PO2, Venous 41 mmHg [facility] Comment: Interpretive Data No Reference Range Established Current Interpretive Data was last revised on 2017. HCO3 Venous, Calculated 31(H) 20 - 30 mmol/L [facility] BE, venous 2 mmol/L [facility] Comment: Interpretive Data No Reference Range Established Current Interpretive Data was last revised on 2017. Blood 02/26/2024 9:50 AM BEDSPREAD CUTTER 02/26/2024 10:04 AM BEDSPREAD CUTTER Krysten Cohn MD LAB BLOOD ORDERABLES Final Result Performing Organization Address [facility] Co de Phone Number [facility] [place] [address] * (ABNORMAL) Comprehensive metabolic panel (02/26/2024 9:50 AM BEDSPREAD CUTTER) Pathologist [facility] Sodium 136 135 - 145 mmol/L Potassium, pl 3.5 3.3 - 4.9 mmol/L [facility] Chloride 94(L) 97 - 110 mmol/L [facility] CO2 30 22 - 32 mmol/L [facility] Anion gap 12 2 - 15 mmol/L [facility] BUN 50(H) 6 - 25 mg/dL [facility] Creatinine 3.55(H) 0.60 - 1.10 mg/dL [facility] Glucose 97 70 - 199 mg/dL [facility] Comment: Interpretive Data Fasting glucose >/= 126 mg/dl is diagnostic for diabetes. Fasting is defined as no caloric intake for at least 8 hours. Fasting glucose between 100 mg/dl to 125 mg/dl is diagnostic of prediabetes. In a patient with classic symptoms of hyperglycemia or hyperglycemic crisis, a random glucose >/= 200 mg/dl is diagnostic for diabetes. In the absence of unequivocal hyperglycemia, results should be confirmed by repeat testing. The classification and Diagnosis of Diabetes Diabetes Care 2021; 46: S19-S40. Current interpretive data was last revised 2022. Calcium 9.1 8.5 - 10.3 mg/dL [facility] Bilirubin, total 0.6 0.1 - 1.2 mg/dL [facility] Protein, pl 5.8(L) 6.5 - 8.5 g/dL [facility] Albumin 2.3(L) 3.5 - 5.0 g/dL [facility] Alk phos 183(H) 40 - 130 Units/L [facility] ALT 13 7 - 45 Units/L [facility] AST 41 10 - 45 Units/L [facility] Blood 02/26/2024 9:50 AM BEDSPREAD CUTTER 02/26/2024 10:12 AM BEDSPREAD CUTTER Krysten Cohn MD LAB BLOOD ORDERABLES Final Result [facility] [place] [address] * XR Chest 1 View (02/26/2024 9:09 AM BEDSPREAD CUTTER) Anatomical Region Laterality Modality Body, Chest N/A Computed Radiogr aphy 02/26/2024 9:56 AM BEDSPREAD CUTTER Impressions 02/26/2024 9:56 AM BEDSPREAD CUTTER The current study is compared with the prior radiograph dated 02/25/2024. Again seen are patchy multifocal airspace opacities concerning for pneumonia. No effusions. There is no pneumothorax.. The heart and mediastinal contours are stable.. Right shoulder prosthesis partially imaged Electronically signed by: Alexa Hernández M.D. Narrative 02/26/2024 9:56 AM BEDSPREAD CUTTER EXAMINATION: 1 view chest radiograph Procedure Note Alexa Hernández MD - 02/26/2024 EXAMINATION: 1 view chest radiograph IMPRESSION: The current study is compared with the prior radiograph dated 02/25/2024. Again seen are patchy multifocal airspace opacities concerning for pneumonia. No effusions. There is no pneumothorax.. The heart and mediastinal contours are stable.. Right shoulder prosthesis partially imaged Electronically signed by: Alexa Hernández M.D. us Andrez Moyer MD IMG XR PROCEDURES Final Result * (ABNORMAL) eGFR (02/26/2024 7:52 AM BEDSPREAD CUTTER) eGFR 14(L) >=60 mL/min/1. 73 m2 Comment: Interpretive Data Reference Interval Normal >/= 90 mL/min/1.73m2 Mildly decreased* 60 - 89 mL/min/1.73m2 Mildly to moderately decreased 45 - 59 mL/min/1.73m2 Moderately to severely decreased 30 - 44 mL/min/1.73m2 Severely decreased 15 - 29 mL/min/1.73m2 Kidney Failure < 15 mL/min/1.73m2 *Relative to young adult level Estimated glomerular filtration rate is determined by the 2020 CKD-EPI equation recommended by the National Kidney Foundation (A Unifying Approach to GFR Estimation: Recommendations of the NKF-ASK Task Force on Reassessing the Inclusion of Race in Diagnosing Kidney Disease, JASN 2020). The CKD-EPI equation should not be used for patients with unstable renal function and has not been validated in children and those over 70. Current interpretive data was last reviewed 2021. Blood 02/26/2024 7:52 AM BEDSPREAD CUTTER 02/26/2024 8:04 AM BEDSPREAD CUTTER us Krysten Cohn MD LAB BLOOD ORDERABLES Final Result Performing Organization Address City/[facility] Co de Phone Number [facility] [place] [address] * (ABNORMAL) Protime-INR (02/26/2024 7:52 AM BEDSPREAD CUTTER) PT 14.8(H) 9.7 - 13.0 sec INR 1.36(H) 0.90 - 1.20 [facility] Comment: Interpretive data Oral anticoagulant therapeutic ranges: Venous thromboembolism prophylaxis or treatment: 2.0-3.0 CARDIOLOGY Standard range: 2.0-3.0 High-intensity range: 2.5-3.5 Refer to indication-specific guidelines for appropriate target ranges for prosthetic heart valve replacement. Current interpretive data was last revised on 2019. Blood 02/26/2024 7:5 2 AM BEDSPREAD CUTTER 02/26/2024 8:03 AM BEDSPREAD CUTTER us Krysten Cohn MD LAB BLOOD ORDERABLES Final Result Performing Organization Address [facility] Co de Phone Number [facility] [place] [place] [address] * Infection Prevention MRSA Only (Staphylococcus aureus) Culture Nasal (02/26/2024 7:52 AM BEDSPREAD CUTTER) Pathologist [facility] Report Final Report: Negative Nasal 02/26/2024 7:52 AM BEDSPREAD CUTTER 02/26/2024 1:31 PM BEDSPREAD CUTTER Narrative [facility] - 02/27/2024 2:19 PM BEDSPREAD CUTTER Testing performed by [facility] ([phone]). us Krysten Cohn MD LAB MICROBIOLOGY - NERAL ORDERABLES Final Result Performing Organization Address City/[facility] Co de Phone Number [facility] [place] [address] * (ABNORMAL) Blood gas, venous (02/26/2024 7:52 AM BEDSPREAD CUTTER) pH, Venous 7.31(L) 7.32 - 7.43 PCO2, Venous 56(H) 40 - 50 mmHg [facility] PO2, Venous 93 mmHg [facility] Comment: Interpretive Data No Reference Range Established Current Interpretive Data was last revised on 2017. HCO3 Venous, Calculated 30 20 - 30 mmol/L [facility] BE, venous 2 mmol/L [facility] Comment: Interpretive Data No Reference Range Established Current Interpretive Data was last revised on 2017. Blood 02/26/2024 7:52 AM BEDSPREAD CUTTER 02/26/2024 7:59 AM BEDSPREAD CUTTER us Krysten Cohn MD LAB BLOOD ORDERABLES Final Result [facility] [place] [address] * (ABNORMAL) Comprehensive metabolic panel (02/26/2024 7:52 AM BEDSPREAD CUTTER) [facility] Sodium 138 135 - 145 mmol/L Potassium, pl 3.5 3.3 - 4.9 mmol/L [facility] Chloride 97 97 - 110 mmol/L [facility] CO2 30 22 - 32 mmol/L [facility] Anion gap 11 2 - 15 mmol/L [facility] BUN 48(H) 6 - 25 mg/dL [facility] Creatinine 3.56(H) 0.60 - 1.10 mg/dL [facility] Glucose 102 70 - 199 mg/dL [facility] Comment: Interpretive Data Fasting glucose >/= 126 mg/dl is diagnostic for diabetes. Fasting is defined as no caloric intake for at least 8 hours. Fasting glucose between 100 mg/dl to 125 mg/dl is diagnostic of prediabetes. In a patient with classic symptoms of hyperglycemia or hyperglycemic crisis, a random glucose >/= 200 mg/dl is diagnostic for diabetes. In the absence of unequivocal hyperglycemia, results should be confirmed by repeat testing. The classification and Diagnosis of Diabetes Diabetes Care 2021; 46: S19-S40. Current interpretive data was last revised 2022. Calcium 7.9(L) 8.5 - 10.3 mg/dL [facility] Bilirubin, total 0.6 0.1 - 1.2 mg/dL [facility] Protein, pl 5.4(L) 6.5 - 8.5 g/dL [facility] Albumin 2.5(L) 3.5 - 5.0 g/dL [facility] Alk phos 173(H) 40 - 130 Units/L [facility] ALT 10 7 - 45 Units/L [facility] AST 38 10 - 45 Units/L [facility] Blood 02/26/2024 7:52 AM BEDSPREAD CUTTER 02/26/2024 8:04 AM BEDSPREAD CUTTER us Krysten Cohn MD LAB BLOOD ORDERABLES Final Result Performing Organization Address City/[facility]/ZIP Co de Phone Number [facility] [place] [address] * POCT glucose (02/26/2024 7:14 AM BEDSPREAD CUTTER) Glucose, POC 85 70 - 199 mg/dL Blood 02/26/2024 7:14 AM BEDSPREAD CUTTER 02/26/2024 7:14 AM BEDSPREAD CUTTER us Krysten Cohn MD LAB POCT ORDERABLES - DEVICE Final Result Performing Organization Address [facility] Co de Phone Number [facility] [place] [address] * Critical Care (02/26/2024 7:12 AM BEDSPREAD CUTTER) Narrative Andrez Moyer MD - 02/26/2024 7:12 AM BEDSPREAD CUTTER Adnrez Moyer MD 02/26/2024 7:13 AM Critical Care Performed by: Andrez Moyer MD Authorized by: Andrez Moyer MD CRITICAL CARE: Team: SICU RED Shift: AM Level of Billing: Critical Care My time spent with this patient was 45 minutes: Critical Provider Statement: I have seen and examined the patient on this day of service. I have reviewed and confirmed the history, physical exam, laboratory and radiologic data as documented in the signed ICU note. I have reviewed and discussed my treatment plan with the ICU team and other medical/transportation sales consultant staff, making frequent assessments and decisions regarding this patient's complex medical care. Critical Care time was exclusive of time spent performing separately billed procedures, treating other patients, and teaching. This time was in addition to and separate from critical care provided by other practitioners in my group on this day of service. Critical Care was necessary to treat or prevent imminent or life-threatening deterioration of the following conditions: Acute hypoxic respiratory failure Acute kidney injury This time was spent by me doing the following: Active and frequent reassessment of respiratory status and oxygen requirements, Non-invasive positive pressure ventilator management and Inhaled pulmonary vasodilator administration/titration Active and frequent monitoring of intake/output and volumen status I spent time discussing the management of this critically ill patient with consultants and the medical staff and I spent time reviewing and interpreting data from bedside monitors, laboratory results, and imaging us Andrez Moyer MD IN CLINIC/BEDSIDE ORDERABLES Fin al Result * (ABNORMAL) Hemoglobin and hematocrit (02/26/2024 3:29 AM BEDSPREAD CUTTER) Pathologist [facility] Hgb 8.5(L) 11.9 - 15.5 g/dL Hct 27.4(L) 35.6 - 45.5 % [facility] Blood 02/26/2024 3:29 AM BEDSPREAD CUTTER 02/26/2024 3:39 AM BEDSPREAD CUTTER Krysten Cohn MD LAB BLOOD ORDERABLES Final Result [facility] [place] [address] * (ABNORMAL) Blood gas, venous (02/26/2024 3:29 AM BEDSPREAD CUTTER) pH, Venous 7.26(L) 7.32 - 7.43 PCO2, Venous 65(H) 40 - 50 mmHg [facility] PO2, Venous 41 mmHg [facility] Comment: Interpretive Data No Reference Range Established Current Interpretive Data was last revised on 2017. HCO3 Venous, Calculated 30 20 - 30 mmol/L [facility] BE, venous 1 mmol/L [facility] Comment: Interpretive Data No Reference Range Established Current Interpretive Data was last revised on 2017. Blood 02/26/2024 3:29 AM BEDSPREAD CUTTER 02/26/2024 3:35 AM BEDSPREAD CUTTER us Krysten Cohn MD LAB BLOOD ORDERABLES Final Result [facility] [place] [address] * XR Knee Left 1 or 2 Views (02/26/2024 3:14 AM BEDSPREAD CUTTER) Anatomical Region Laterality Modality Lower Extremities, Knee Left Digital Radiography 02/26/2024 6:03 AM BEDSPREAD CUTTER Impressions 02/26/2024 6:03 AM BEDSPREAD CUTTER 1. Limited evaluation of the left knee with mild to moderate tricompartmental osteoarthritis and without radiographic evidence of septic arthritis Electronically signed by: Jeremy Martin MD, PHD Narrative 02/26/2024 6:03 AM BEDSPREAD CUTTER EXAMINATION: Left knee one or 2 views HISTORY: Left knee pain FINDINGS: 2 portable radiographs of the left knee are submitted without comparison and limited due to technique and overlying habitus. There is mild to moderate left knee tricompartmental osteoarthritis. Enthesopathy is noted within the extensor mechanism. No osseous erosions or joint space destruction is noted to suggest septic arthritis. Procedure Note Jeremy Martin MD PhD - 02/26/2024 EXAMINATION: Left knee one or 2 views HISTORY: Left knee pain FINDINGS: 2 portable radiographs of the left knee are submitted without comparison and limited due to technique and overlying habitus. There is mild to moderate left knee tricompartmental osteoarthritis. Enthesopathy is noted within the extensor mechanism. No osseous erosions or joint space destruction is noted to suggest septic arthritis. IMPRESSION: 1. Limited evaluation of the left knee with mild to moderate tricompartmental osteoarthritis and without radiographic evidence of septic arthritis Electronically signed by: Jeremy Martin MD, PHD us Krysten Cohn MD IMG XR PROCEDURES Fin al Result * [place] INSJ NON-TUNNELED CENTRAL VENOUS CATH AGE 5 YR/> (02/26/2024 12:23 AM BEDSPREAD CUTTER) Narrative Barron Ernst MD - 02/26/2024 12:23 AM BEDSPREAD CUTTER Barron Ernst MD 02/26/2024 12:27 AM Central Line Insertion Date/Time: 02/26/2024 12:23 AM Performed by: Barron Ernst MD Authorized by: Barron Ernst MD [place] Protocol: RN Notified of Procedure: yes Informed consent: Risks, benefits, alternatives discussed Patient's stated name/ matches armband: Yes Allergies confirmed: yes Consent form signed, dated, timed; matches correct patient, intended procedure and site: Yes Imaging: Pertinent imaging reviewed, correctly oriented and match to patient identifiers Lab/Diag test results: Pertinent lab/diag tests reviewed and match to patient identifiers Supplies, devices and special equipment are available: yes Immediately prior to the procedure a time out was called: a verbal verification by the procedure participants confirmed correct patient identity, correct site/side marked and visible (if applicable); agreement on procedure to be done; and correct patient positioning Indications: Dialysis Anesthesia (see MAR for exact dosage) Anesthesia method: Local infiltration Skin preparation: Skin prepped with 2% chlorhexidine Provider preparation: Gloves, gown, cap, full body drape and mask Location: Right femoral Ultrasound guidance: Real-time needle guidance Assessment: Blood return through all ports Needle inserted, vein idenitified then guidewire inserted easily into vein: Yes Number of attempts: 2 Successful placement: Yes Catheter secured at (cm): 20 Catheter length (cm): 20 Line securement: Line sutured and dressing applied Patient tolerance: Patient tolerated the procedure well with no immediate complications Post Procedure Debrief: All guidewires, needles, sponges or other items are accounted for: yes Overall procedure was challenging due to pt's body habitus and respiratory status. Patient would begin to desat into the high 80s within 10 secs of lying flat despite fio2 100% and EPAP 10. We were ultimately successfully in placing HD cath by intermittently raising the pt's head and laying her back down throughout the procedure us Barron Ernst MD IN CLINIC/BEDSIDE ORDERABLES Fi nal Result * [place] ARTL CATHJ/CANNULJ MNTR/TRANSFUSION SPX PRQ (02/26/2024 12:21 AM BEDSPREAD CUTTER) Narrative Barron Ernst MD - 02/26/2024 12:21 AM BEDSPREAD CUTTER Barron Ernst MD 02/26/2024 12:22 AM Arterial Line Insertion Date/Time: 02/26/2024 12:21 AM Performed by: Barron Ernst MD Authorized by: Barron Ernst MD [place] Protocol: RN Notified of Procedure: yes Informed consent: Risks, benefits, alternatives discussed Patient's stated name/ matches armband: Yes Allergies confirmed: yes Consent form signed, dated, timed; matches correct patient, intended procedure and site: Yes Imaging: Pertinent imaging reviewed, correctly oriented and match to patient identifiers Lab/Diag test results: Pertinent lab/diag tests reviewed and match to patient identifiers Supplies, devices and special equipment are available: yes Immediately prior to the procedure a time out was called: a verbal verification by the procedure participants confirmed correct patient identity, correct site/side marked and visible (if applicable); agreement on procedure to be done; and correct patient positioning Indications: multiple ABGs and hemodynamic monitoring Location: Right femoral Anesthesia: Local infiltration Local anesthetic: Lidocaine 1% Patient skin preparation: chlorhexidine Ultrasound guidance: Real-time needle guidance Patient preparation: Cap, gloves, gown and sterile probe cover Seldinger technique used: Yes Number of attempts: 1 Unsuccessful us Barron Ernst MD IV THERAPY ORDERABLES Final Res ult * (ABNORMAL) Urinalysis reflex to microscopic and culture Urine (02/25/2024 10:54 PM BEDSPREAD CUTTER) Color, ur Yellow Yellow Clarity, ur Turbid(A) Clear [facility] Specific gravity, ur 1.018 1.003 - 1.030 [facility] pH, urine 6.0 [facility] Comment: Interpretive Data U rine pH is affected by diet, medications, systemic acid-base disturbances, and renal tubular function. pH may affect urinary stone formation. For example, urine pH below 6.0 may help reduce the tendency for calcium phosphate stones and pH greater than 6.0 may reduce the tendency for uric acid stone formation. Source: [facility] [place] Current Interpretive Data was last revised on 2017 Protein, ur ql 2+(A) Negative [facility] Glucose, ur ql Negative Negative [facility] Ketones, ur Negative Negative [facility] Bilirubin, ur Negative Negative [facility] Blood, ur 3+(A) Negative [facility] Urobilinogen, ur <2.0 <2.0 mg/dL [facility] Nitrite, ur Negative Negative [facility] Leukocyte esterase, ur 3+(A) Negative [facility] UA reflex comment Reflex to microscopic UA will be performed. [facility] Urine 02/25/2024 10:5 4 PM BEDSPREAD CUTTER 02/25/2024 11:02 PM BEDSPREAD CUTTER us Krysten Cohn MD LAB MICROBIOLOGY - GE NERAL ORDERABLES Final Result Performing Organization Address [facility] de Phone Number [facility] [place] [address] * (ABNORMAL) Urinalysis, microscopic only (02/25/2024 10:54 PM BEDSPREAD CUTTER) WBC, ur >50(A) 0 - 5 /HPF RBC, ur >50(A) 0 - 2 /HPF [facility] Epithelial cells, squamous, ur 6-10(A) 0 - 5 /HPF [facility] Comment:Suggestive of contam ination. Consider recollection by clean catch. Bacteria, ur 1+(A) [facility] Mucous, ur Present(A) [facility] Culture Reflex Comment Reflex to urine culture will be performed. [facility] Urine 02/25/2024 10:5 4 PM BEDSPREAD CUTTER 02/25/2024 11:08 PM BEDSPREAD CUTTER us Krysten Cohn MD LAB URINE ORDERABLES Final Result Performing Organization Address [facility] Co de Phone Number [facility] [place] [address] * Urine culture Urine (02/25/2024 10:54 PM BEDSPREAD CUTTER) Report Final Report: Less than 100,000 colonies/mL (clinically insignificant growth based on current clinical standards) Organism (CLINICALLY INSIGNIFICANT GROWTH [facility] Urine 02/25/2024 10:5 4 PM BEDSPREAD CUTTER 02/26/2024 1:13 AM BEDSPREAD CUTTER Narrative [facility] - 02/27/2024 7:56 AM BEDSPREAD CUTTER Urine culture reflexed based upon urinalysis results. Testing performed by [facility] ([phone]) Krysten Cohn MD LAB MICROBIOLOGY - NERAL ORDERABLES Final Result Performing Organization Address [facility] Co de Phone Number [facility] [place] [address] * (ABNORMAL) Blood gas, venous (02/25/2024 10:54 PM BEDSPREAD CUTTER) pH, Venous 7.28(L) 7.32 - 7.43 PCO2, Venous 63(H) 40 - 50 mmHg [facility] PO2, Venous 58 mmHg [facility] Comment: Interpretive Data No Reference Range Established Current Interpretive Data was last revised on 2017. HCO3 Venous, Calculated 30 20 - 30 mmol/L [facility] BE, venous 2 mmol/L [facility] Comment: Interpretive Data No Reference Range Established Current Interpretive Data was last revised on 2017. Blood 02/25/2024 10:5 4 PM BEDSPREAD CUTTER 02/25/2024 11:01 PM BEDSPREAD CUTTER us Krysten Cohn MD LAB BLOOD ORDERABLES Final Result Performing Organization Address [facility] Co de Phone Number [facility] [place] [address] * Critical Care (02/25/2024 7:45 PM BEDSPREAD CUTTER) Narrative Gabriel Tsang MD - 02/25/2024 7:45 PM BEDSPREAD CUTTER Gabriel Tsang MD 02/26/2024 9:09 PM Critical Care Performed by: Gabriel Tsang MD Authorized by: Gabriel Tsang MD CRITICAL CARE: Team: SICU RED Shift: PM Level of Billing: Critical Care My time spent with this patient was 30 minutes: Critical Provider Statement: I have seen and examined the patient on this day of service. I have reviewed and confirmed the history, physical exam, laboratory and radiologic data as documented in the signed ICU note. I have reviewed and discussed my treatment plan with the ICU team and other medical/transportation sales consultant staff, making frequent assessments and decisions regarding this patient's complex medical care. Critical Care time was exclusive of time spent performing separately billed procedures, treating other patients, and teaching. This time was in addition to and separate from critical care provided by other practitioners in my group on this day of service. Critical Care was necessary to treat or prevent imminent or life-threatening deterioration of the following conditions: us Gabriel Tsang MD IN CLINIC/BEDSIDE J[facility] NEWELL Final Result * (ABNORMAL) Troponin I high-sensitivity 6-hour (02/25/2024 7:37 PM BEDSPREAD CUTTER) Trop I hs 73(H) <=17 ng/L Comment: Interpretive Data For further hscTnI resources including the diagnostic algorithm and an aid in interpretation, copy and paste this link: https://bjhlab.testcatalog.org/show/[email or web address] Current Interpretive Data last revised 2019. Trop I hs delta See Comment ng/L [facility] Comment:Inappropriate collec tion time to report a delta. Trop I hs pct delta See Comment % [facility] Comment:Inappropriate collec tion time to report a delta. Trop I hs interp See Comment [facility] Comment:Inappropriate collec tion time to report a delta. Blood 02/25/2024 7:37 PM BEDSPREAD CUTTER 02/25/2024 8:02 PM BEDSPREAD CUTTER us Andrez Moyer MD LAB BLOOD ORDERABLES Final Resul t [facility] [place] [address] * (ABNORMAL) eGFR (02/25/2024 7:37 PM BEDSPREAD CUTTER) Pathologist [facility] eGFR 15(L) >=60 mL/min/1. 73 m2 Comment: Interpretive Data Reference Interval Normal >/= 90 mL/min/1.73m2 Mildly decreased* 60 - 89 mL/min/1.73m2 Mildly to moderately decreased 45 - 59 mL/min/1.73m2 Moderately to severely decreased 30 - 44 mL/min/1.73m2 Severely decreased 15 - 29 mL/min/1.73m2 Kidney Failure < 15 mL/min/1.73m2 *Relative to young adult level Estimated glomerular filtration rate is determined by the 2020 CKD-EPI equation recommended by the National Kidney Foundation (A Unifying Approach to GFR Estimation: Recommendations of the NKF-ASK Task Force on Reassessing the Inclusion of Race in Diagnosing Kidney Disease, JASN 2020). The CKD-EPI equation should not be used for patients with unstable renal function and has not been validated in children and those over 70. Current interpretive data was last reviewed 2021. Blood 02/25/2024 7:37 PM BEDSPREAD CUTTER 02/25/2024 7:52 PM BEDSPREAD CUTTER us Krysten Cohn MD LAB BLOOD ORDERABLES Final Result [facility] [place] [address] * (ABNORMAL) Calcium, ionized (02/25/2024 7:37 PM BEDSPREAD CUTTER) [facility] Calcium, Ionized 3.65(L) 4.50 - 5.10 mg/dL Blood 02/25/2024 7:37 PM BEDSPREAD CUTTER 02/25/2024 7:52 PM BEDSPREAD CUTTER us Andrez Moyer MD LAB BLOOD ORDERABLES Final Resul t [facility] [place] [address] * (ABNORMAL) Protime-INR (02/25/2024 7:37 PM BEDSPREAD CUTTER) Pathologist [facility] PT 14.9(H) 9.7 - 13.0 sec INR 1.37(H) 0.90 - 1.20 [facility] Comment: Interpretive data Oral anticoagulant therapeutic ranges: Venous thromboembolism prophylaxis or treatment: 2.0-3.0 CARDIOLOGY Standard range: 2.0-3.0 High-intensity range: 2.5-3.5 Refer to indication-specific guidelines for appropriate target ranges for prosthetic heart valve replacement. Current interpretive data was last revised on 2019. Blood 02/25/2024 7:37 PM BEDSPREAD CUTTER 02/25/2024 7:58 PM BEDSPREAD CUTTER us Krysten Cohn MD LAB BLOOD ORDERABLES Final Result [facility] [place] [address] * (ABNORMAL) CBC without differential (02/25/2024 7:37 PM BEDSPREAD CUTTER) [facility] WBC 24.0(H) 3.8 - 9.9 K/cumm Hgb 8.7(L) 11.9 - 15.5 g/dL [facility] Hct 28.6(L) 35.6 - 45.5 % [facility] Plt 198 150 - 400 K/cumm [facility] MPV 10.0 9.1 - 12.3 fL [facility] RBC 2.55(L) 3.90 - 5.20 M/cumm [facility] MCV 112.2(H) 81.3 - 96.4 fL [facility] Comment:MCV delta due to savi gical procedure. MCH 34.1(H) 27.1 - 33.3 pg [facility] MCHC 30.4(L) 32.3 - 35.7 g/dL [facility] RDW CV 15.6(H) 11.1 - 14.9 % [facility] RDW SD 64.5(H) 35.7 - 48.1 fL [facility] NRBC abs 0.02(H) 0.00 - 0.01 K/cumm [facility] Blood 02/25/2024 7:37 PM BEDSPREAD CUTTER 02/25/2024 8:02 PM BEDSPREAD CUTTER us Andrez Moyer MD LAB BLOOD ORDERABLES Final Resul t Performing Organization Address [facility] Co de Phone Number [facility] [place] [address] * (ABNORMAL) Phosphorus (02/25/2024 7:37 PM BEDSPREAD CUTTER) Pathologist [facility] Phosphorus, pl 7.3(H) 2.3 - 4.5 mg/dL Blood 02/25/2024 7:37 PM BEDSPREAD CUTTER 02/25/2024 7:52 PM BEDSPREAD CUTTER us Andrez Moyer MD LAB BLOOD ORDERABLES Final Resul t Performing Organization Address [facility] Co de Phone Number [facility] [place] [address] * Magnesium (02/25/2024 7:37 PM BEDSPREAD CUTTER) [facility] Magnesium 1.4 1.4 - 2.5 mg/dL Blood 02/25/2024 7:37 PM BEDSPREAD CUTTER 02/25/2024 7:52 PM BEDSPREAD CUTTER us Andrez Moyer MD LAB BLOOD ORDERABLES Final Resul t Performing Organization Address [facility] [place] [address] * (ABNORMAL) Comprehensive metabolic panel (02/25/2024 7:37 PM BEDSPREAD CUTTER) [facility] Sodium 137 135 - 145 mmol/L Potassium, pl 3.7 3.3 - 4.9 mmol/L [facility] Chloride 93(L) 97 - 110 mmol/L [facility] CO2 29 22 - 32 mmol/L [facility] Anion gap 15 2 - 15 mmol/L [facility] BUN 45(H) 6 - 25 mg/dL [facility] Creatinine 3.43(H) 0.60 - 1.10 mg/dL [facility] Glucose 100 70 - 199 mg/dL [facility] Comment: Interpretive Data Fasting glucose >/= 126 mg/dl is diagnostic for diabetes. Fasting is defined as no caloric intake for at least 8 hours. Fasting glucose between 100 mg/dl to 125 mg/dl is diagnostic of prediabetes. In a patient with classic symptoms of hyperglycemia or hyperglycemic crisis, a random glucose >/= 200 mg/dl is diagnostic for diabetes. In the absence of unequivocal hyperglycemia, results should be confirmed by repeat testing. The classification and Diagnosis of Diabetes Diabetes Care 2021; 46: S19-S40. Current interpretive data was last revised 2022. Calcium 7.7(L) 8.5 - 10.3 mg/dL [facility] Bilirubin, total 0.6 0.1 - 1.2 mg/dL [facility] Protein, pl 6.0(L) 6.5 - 8.5 g/dL [facility] Albumin 2.6(L) 3.5 - 5.0 g/dL [facility] Alk phos 167(H) 40 - 130 Units/L [facility] ALT 15 7 - 45 Units/L [facility] AST 42 10 - 45 Units/L [facility] Blood 02/25/2024 7:37 PM BEDSPREAD CUTTER 02/25/2024 7:52 PM BEDSPREAD CUTTER us Krysten Cohn MD LAB BLOOD ORDERABLES Final Result [facility] [place] [address] * (ABNORMAL) POC Blood Gas and Chemistries, Venous - (02/25/2024 7:17 PM BEDSPREAD CUTTER) pH, Morris POC 7.26(L) 7.32 - 7.43 pCO2, morris POC 67(H) 40 - 50 mmHg [facility] pO2, morris POC 45 mmHg [facility] Na, POC 135 135 - 145 mmol/L [facility] K POC 3.6 3.3 - 4.9 mmol/L [facility] Comment: Interpretive Data Not all point of care methods assess for hemolysis. Confirm with instrument and retest K+ if not consistent with clinical signs and symptoms. Current Interpretive Data was last revised on 2023. Cl, POC 96(L) 97 - 110 mmol/L [facility] Ionized Ca, POC 3.94(L) 4.50 - 5.10 mg/dL [facility] Glucose, POC 102 70 - 199 mg/dL [facility] Lactate, POC 1.7 0.7 - 2.2 mmol/L [facility] O2 Sat, Morris POC (Angelica) 70 % [facility] excess, POC 2.1 mmol/L [facility] HCO3, Morris POC 30 20 - 30 mmol/L [facility] Hct, POC 28.0(L) 36.3 - 45.3 % [facility] Total Hb, POC 9.3(L) 11.9 - 15.5 g/dL [facility] Blood 02/25/2024 7:17 PM BEDSPREAD CUTTER 02/25/2024 7:17 PM BEDSPREAD CUTTER us Krysten Cohn MD LAB POCT ORDERABLES - DEVICE Final Result Performing Organization Address City/[facility]/ZIP Co de Phone Number [facility] [place] [address] * POCT glucose (02/25/2024 5:28 PM BEDSPREAD CUTTER) [facility] Glucose, POC 125 70 - 199 mg/dL Blood 02/25/2024 5:2 8 PM BEDSPREAD CUTTER 02/25/2024 5:28 PM BEDSPREAD CUTTER us Krysten Cohn MD LAB POCT ORDERABLES - DEVICE Final Result Performing Organization Address City/[facility]/ZIP Co de Phone Number [facility] [place] [address] * [place] INSJ NON-TUNNELED CENTRAL VENOUS CATH AGE 5 YR/> (02/25/2024 5:21 PM BEDSPREAD CUTTER) Narrative Andrez Moyer MD - 02/25/2024 5:21 PM BEDSPREAD CUTTER Cody Valera MD 02/25/2024 5:28 PM Central Line Insertion Date/Time: 02/25/2024 5:21 PM Performed by: Cody Valera MD Authorized by: Andrez Moyer MD [place] Protocol: RN Notified of Procedure: yes Informed consent: Risks, benefits, alternatives discussed Patient's stated name/ matches armband: Yes Allergies confirmed: yes Consent form signed, dated, timed; matches correct patient, intended procedure and site: Yes Imaging: N/a Lab/Diag test results: Pertinent lab/diag tests reviewed and match to patient identifiers Supplies, devices and special equipment are available: yes Site/side marked: n/a Immediately prior to the procedure a time out was called: a verbal verification by the procedure participants confirmed correct patient identity, correct site/side marked and visible (if applicable); agreement on procedure to be done; and correct patient positioning Have non- routine considerations been assessed?: Yes Indications: Dialysis and vascular access Anesthesia (see MAR for exact dosage) Anesthesia method: Local infiltration Local anesthetic: Lidocaine 1% Patient position: Flat Skin preparation: Skin prepped with 2% chlorhexidine Provider preparation: Cap, gloves, gown, handwashing, mask and partial body drape Location: Left femoral Technique: Landmarks identified Ultrasound guidance: Real-time needle guidance Assessment: Blood return through all ports and free fluid flow Catheter type: Dialysis catheter Catheter size: 13 Fr. Needle inserted, vein idenitified then guidewire inserted easily into vein: Yes Number of attempts: 1 Successful placement: Yes Catheter secured at (cm): 23 Catheter length (cm): 30 Line securement: Line sutured and dressing applied Patient tolerance: Patient tolerated the procedure well with no immediate complications Post Procedure Debrief: All guidewires, needles, sponges or other items are accounted for: yes Any special post procedure monitoring, testing or other considerations: n/a All specimens identified, labeled and matched to patient identification: n/a Responsible alliance party for transporting specimen(s) to lab determined: n/a Andrez Moyer MD IN CLINIC/BEDSIDE ORDERABLES Fin al Result * (ABNORMAL) Troponin I high-sensitivity 2-hour (02/25/2024 4:43 PM BEDSPREAD CUTTER) Pathologist [facility] Trop I hs 72(H) <=17 ng/L Comment: Interpretive Data For further hscTnI resources including the diagnostic algorithm and an aid in interpretation, copy and paste this link: [email or web address].testcatalog.org/show/hsTrop-[email or web address] Current Interpretive Data last revised 2019. Trop I hs delta -8 ng/L [facility] Trop I hs interp Equivocal [facility] Blood 02/25/2024 4:43 PM BEDSPREAD CUTTER 02/25/2024 5:27 PM BEDSPREAD CUTTER Andrez Moyer MD LAB BLOOD ORDERABLES Final Resul t [facility] [place] [address] * ECG 12 lead (02/25/2024 4:04 PM BEDSPREAD CUTTER) [facility] Ventricular Rate EKG/Min 79 BPM [facility] Atrial Rate 79 BPM [facility] [place]-Interval (MSEC) 184 ms [facility] QRS-Interval (MSEC) 114 ms [facility] QT-Interval (MSEC) 408 ms [facility] QTc 467 ms [facility] P [place] 64 degrees [facility] R [place] 20 degrees [facility] T [place] 26 degrees [facility] Diagnosis Normal sinus rhythm Low voltage QRS Abnormal ECG When compared with ECG of 15-FEB-2024 08:38, No significant change was found Confirmed by LATHA HAAS M.D ([id number]) on 02/28/2024 12:24:07 PM [facility] 02/25/2024 4:04 PM BEDSPREAD CUTTER 02/28/2024 12:24 PM BEDSPREAD CUTTER Andrez Moyer MD ECG ORDERABLES Final Result Performing Organization Address City/[facility]/ZIP Co de Phone Number [facility] * POCT glucose (02/25/2024 3:07 PM BEDSPREAD CUTTER) [facility] Glucose, POC 145 70 - 199 mg/dL Blood 02/25/2024 3:07 PM BEDSPREAD CUTTER 02/25/2024 3:07 PM BEDSPREAD CUTTER us Krysten Cohn MD LAB POCT ORDERABLES - DEVICE Final Result [facility] [place] [address] * Critical Care (02/25/2024 3:02 PM BEDSPREAD CUTTER) Narrative Andrez Moyer MD - 02/25/2024 3:02 PM BEDSPREAD CUTTER Andrez Moyer MD 02/26/2024 6:59 AM Critical Care Performed by: Andrez Moyer MD Authorized by: Andrez Moyer MD CRITICAL CARE: Team: SICU RED Shift: AM Level of Billing: Critical Care My time spent with this patient was 120 minutes: Critical Provider Statement: I have seen and examined the patient on this day of service. I have reviewed and confirmed the history, physical exam, laboratory and radiologic data as documented in the signed ICU note. I have reviewed and discussed my treatment plan with the ICU team and other medical/transportation sales consultant staff, making frequent assessments and decisions regarding this patient's complex medical care. Critical Care time was exclusive of time spent performing separately billed procedures, treating other patients, and teaching. This time was in addition to and separate from critical care provided by other practitioners in my group on this day of service. Critical Care was necessary to treat or prevent imminent or life-threatening deterioration of the following conditions: Acute hypoxic respiratory failure and Acute respiratory failure following procedure/surgery This time was spent by me doing the following: Serial bedside patient exams Active and frequent reassessment of respiratory status and oxygen requirements, Inhaled pulmonary vasodilator administration/titration and Non-invasive positive pressure ventilator management Active and frequent monitoring of intake/output and volumen status I spent time reviewing and interpreting data from bedside monitors, laboratory results, and imaging, I spent time discussing the management of this critically ill patient with consultants and the medical staff and I spent time documenting in the medical record us Andrez Moyer MD IN CLINIC/BEDSIDE ORDERABLES Eddy natividad Result - Final * (ABNORMAL) Troponin I high-sensitivity series (baseline, 2hr, 4hr, 6hr) (02/25/2024 2:55 PM BEDSPREAD CUTTER) [facility] Trop I hs 80(H) <=17 ng/L Comment: Interpretive Data For further hscTnI resources including the diagnostic algorithm and an aid in interpretation, copy and paste this link: https://bjhlab.testcatalog.org/show/hsTrop-[email or web address] Current Interpretive Data last revised 2019. Blood 02/25/2024 2:55 PM BEDSPREAD CUTTER 02/25/2024 3:03 PM BEDSPREAD CUTTER Andrez Moyer MD LAB BLOOD ORDERABLES Final Resul t [facility] [place] [address] * Respiratory pathogen panel Nasopharyngeal (02/25/2024 2:55 PM BEDSPREAD CUTTER) [facility] Influenza A RNA Not Detected Not Detected Influenza B RNA Not Detected Not Detected [facility] RSV RNA Not Detected Not Detected [facility] COVID-19 RNA Not Detected Not Detected [facility] Coronavirus 229E RNA Not Detected Not Detected [facility] Coronavirus HKU1 RNA Not Detected Not Detected [facility] Coronavirus NL63 RNA Not Detected Not Detected [facility] Coronavirus OC43 RNA Not Detected Not Detected [facility] Adenovirus DNA Not Detected Not Detected [facility] Metapneumovirus RNA Not Detected Not Detected [facility] Rhinovirus/Enterov irus RNA Not Detected Not Detected [facility] Parainfluenza 1 RNA Not Detected Not Detected [facility] Parainfluenza 2 RNA Not Detected Not Detected [facility] Parainfluenza 3 RNA Not Detected Not Detected [facility] Parainfluenza 4 RNA Not Detected Not Detected [facility] B. pertussis DNA Not Detected Not Detected [facility] B. parapertussis DNA Not Detected Not Detected [facility] C. pneumoniae DNA Not Detected Not Detected [facility] M. pneumoniae DNA Not Detected Not Detected [facility] Nasopharyngeal 02/25/2024 2: 55 PM BEDSPREAD CUTTER 02/25/2024 3:03 PM BEDSPREAD CUTTER Chantell [facility] - 02/25/2024 4:05 PM BEDSPREAD CUTTER Is the Patient experiencing symptoms consistent with COVID?->Unknown Surveillance testing for transplant patient?->No Interpretive Data [employer] FilmArray Respiratory Panel (RP2.1) assay is a multiplexed real-time PCR based nucleic acid test capable of simultaneous qualitative detection and identification of multiple respiratory viral and bacterial nucleic acids, including SARS Coronavirus 2 (the causative agent of COVID-19). The following bacteria, viruses and virus subtypes can be identified using the FilmArray RP2.1 assay: Bordetella pertussis, Bordetella parapertussis, Chlamydia pneumoniae, Mycoplasma pneumoniae, Adenovirus, SARS Coronavirus 2, seasonal coronaviruses (Coronavirus HKU1, Coronavirus NL63, Coronavirus 229E, and Coronavirus OC43), Influenza A, Influenza A subtype H1, Influenza A subtype H3, Influenza A subtype 2009 H1, Influenza B, Metapneumovirus, Parainfluenza 1, Parainfluenza 2, Parainfluenza 3, Parainfluenza 4, RSV, Rhinovirus/Enterovirus. Due to the genetic similarity between human Rhinovirus and Enterovirus, the FilmArray RP2.1 assay cannot reliably differentiate them. Coronavirus OC43 may cross-react with some isolates of Coronavirus HKU1. A dual positive result may be due to cross-reactivity or may indicate a co- infection. The detection and identification of specific viral and bacterial nucleic acids from individuals exhibiting signs and symptoms of a respiratory infection aids in the diagnosis of respiratory infection if used in conjunction with other clinical and epidemiological information. The results of this test should not be used as the sole basis for diagnosis, treatment, or other management decisions. Negative results in the setting of a respiratory illness may be due to infection with pathogens that are not detected by this test. Positive results do not rule out infection/co-infection with other organisms. The agent(s) detected by the FilmArray RP2.1 may not be the definite cause of disease. Additional testing (lab, imaging, etc.) may be necessary when evaluating a patient with possible respiratory tract infection. The FilmArray RP2.1 assay has FDA clearance for testing of PHARMACY INFORMATICS SPECIALIST swabs. The performance of additional specimen types has been assessed by the performing laboratory. The performance characteristics of this assay have been determined by [facility]. Current interpretive data was last revised on 21. us Krysten Cohn MD LAB MICROBIOLOGY - GE NERAL ORDERABLES Final Result [facility] [place] [address] * [place] ARTL CATHJ/CANNULJ MNTR/TRANSFUSION SPX PRQ (02/25/2024 12:00 PM BEDSPREAD CUTTER) Narrative Andrez Moyer MD - 02/25/2024 12:00 PM BEDSPREAD CUTTER Andrez Moyer MD 02/26/2024 7:11 AM Arterial Line Insertion Date/Time: 02/25/2024 12:00 PM Performed by: Andrez Moyer MD Authorized by: Andrez Moyer MD [place] Protocol: RN Notified of Procedure: yes Informed consent: Risks, benefits, alternatives discussed Patient's stated name/ matches armband: Yes Allergies confirmed: yes Consent form signed, dated, timed; matches correct patient, intended procedure and site: Yes Imaging: Pertinent imaging reviewed, correctly oriented and match to patient identifiers Lab/Diag test results: Pertinent lab/diag tests reviewed and match to patient identifiers Supplies, devices and special equipment are available: yes Site/side marked: yes Immediately prior to the procedure a time out was called: a verbal verification by the procedure participants confirmed correct patient identity, correct site/side marked and visible (if applicable); agreement on procedure to be done; and correct patient positioning Indications: multiple ABGs, respiratory failure and hemodynamic monitoring Location: Left radial Anesthesia: Topical application Patient skin preparation: chlorhexidine Ultrasound guidance: Real-time needle guidance Patient preparation: Cap, gloves, handwashing, partial body drape and mask Cornelio's test normal?: Yes Catheter gauge: 20 Seldinger technique used: Yes Number of attempts: 5 or more Placement confirmed with arterial waveform: Yes Post-procedure: Line sutured Post-procedure CMS: Unchanged Complications: no complications noted during insertion Multiple attempts by resident, then by fellow. I was able to place the line w/ 2 attempts. The radial artery course was tortuous and dives deep quickly so the placement was very difficuilt. CMS intact pre and post procedure. Unfortunately, vishnu stopped working a few hours later while the patient was moving her wrist around. Placement is hindered by habitus. Andrez Moyer MD IV THERAPY ORDERABLES Final Resu lt * POCT glucose (02/25/2024 11:06 AM BEDSPREAD CUTTER) Pathologist [facility] Glucose, POC 130 70 - 199 mg/dL Blood 02/25/2024 11:0 6 AM BEDSPREAD CUTTER 02/25/2024 11:06 AM BEDSPREAD CUTTER Krysten Cohn MD LAB POCT ORDERABLES - DEVICE Final Result Performing Organization Address [facility] Co de Phone Number [facility] [place] [address] * Lactate (02/25/2024 11:05 AM BEDSPREAD CUTTER) [facility] Lactate 1.7 0.7 - 2.0 mmol/L Blood 02/25/2024 11:0 5 AM BEDSPREAD CUTTER 02/25/2024 11:16 AM BEDSPREAD CUTTER Andrez Moyer MD LAB BLOOD ORDERABLES Final Resul t Performing Organization Address [facility] Co de Phone Number [facility] [place] [address] * (ABNORMAL) eGFR (02/25/2024 11:05 AM BEDSPREAD CUTTER) [facility] eGFR 17(L) >=60 mL/min/1. 73 m2 Comment: Interpretive Data Reference Interval Normal >/= 90 mL/min/1.73m2 Mildly decreased* 60 - 89 mL/min/1.73m2 Mildly to moderately decreased 45 - 59 mL/min/1.73m2 Moderately to severely decreased 30 - 44 mL/min/1.73m2 Severely decreased 15 - 29 mL/min/1.73m2 Kidney Failure < 15 mL/min/1.73m2 *Relative to young adult level Estimated glomerular filtration rate is determined by the 2020 CKD-EPI equation recommended by the National Kidney Foundation (A Unifying Approach to GFR Estimation: Recommendations of the NKF-ASK Task Force on Reassessing the Inclusion of Race in Diagnosing Kidney Disease, JASN 2020). The CKD-EPI equation should not be used for patients with unstable renal function and has not been validated in children and those over 70. Current interpretive data was last reviewed 2021. Blood 02/25/2024 11:0 5 AM BEDSPREAD CUTTER 02/25/2024 11:12 AM BEDSPREAD CUTTER us Andrez Moyer MD LAB BLOOD ORDERABLES Final Resul t [facility] [place] [address] * (ABNORMAL) Pro B-type natriuretic peptide (02/25/2024 11:05 AM BEDSPREAD CUTTER) NT-proBNP 36,208(H) <=300 pg/mL Comment: Interpretive Comments: A. Dyspnea in Acute Care Setting All Ages: < 300 pg/ml, acute heart failure unlikely. < 50 yrs: 300 - 450 pg/ml, further investigation warranted. > 450 pg/ml, acute heart failure likely. 50 - 74 yrs: 300 - 900 pg/ml, further investigation warranted. > 900 pg/ml, acute heart failure likely . > or = 75 yrs: 450 - 1800 pg/ml, further investigation warranted. > 1800 pg/ml, acute heart failure likely. B. Non-acute Setting < 75 yrs < 125 pg/ml, rules out heart failure. > or = 125 pg/ml, further investigation warranted. > or = 75 yrs < 450 pg/ml, rules out heart failure. > or = 450 pg/ml, further investigation warranted. - Knowledge of each individual patient's NT-proBNP range may be more useful than using similar cut-points for every patient. Please note that marked elevations in NT-proBNP levels may be observed in state other than Left Ventricular Congestive Failure, including: acute coronary syndromes, right heart strain/failure (including pulmonary embolism and cor pulmonale), critical illness, renal failure, as well as advanced age. - References: 1. Sammie STNOE et.al. Eur Heart J. 2006:27:330-337. 2. Caleb RW, Rashel SAMPSON. J. AM Sierra Cardiol: Cardiovasc Imag. 2009;2: 216- 225. Interpretive Data Last Revised Date: 2017. Blood 02/25/2024 11:0 5 AM BEDSPREAD CUTTER 02/25/2024 11:12 AM BEDSPREAD CUTTER us Andrez Moyer MD LAB BLOOD ORDERABLES Final Resul t Performing Organization Address [facility] [place] [address] * (ABNORMAL) Thyroid Function [place] (02/25/2024 11:05 AM BEDSPREAD CUTTER) TSH 4.96(H) 0.30 - 4.20 mcIUnit/mL Blood 02/25/2024 11:0 5 AM BEDSPREAD CUTTER 02/25/2024 11:12 AM BEDSPREAD CUTTER us Andrez Moyer MD LAB BLOOD ORDERABLES Final Resul t Performing Organization Address [facility] de Phone Number [facility] [place] [address] * (ABNORMAL) Calcium, ionized (02/25/2024 11:05 AM BEDSPREAD CUTTER) Calcium, Ionized 3.49(L) 4.50 - 5.10 mg/dL Blood 02/25/2024 11:0 5 AM BEDSPREAD CUTTER 02/25/2024 11:12 AM BEDSPREAD CUTTER us Andrez Moyer MD LAB BLOOD ORDERABLES Final Resul t Performing Organization Address [facility] de Phone Number [facility] [place] [address] * Beta-hydroxybutyrate (02/25/2024 11:05 AM BEDSPREAD CUTTER) Beta-Hydroxybut yrate 0.4 0.0 - 0.5 mmol/L Blood 02/25/2024 11:0 5 AM BEDSPREAD CUTTER 02/25/2024 11:12 AM BEDSPREAD CUTTER Andrez Moyer MD LAB BLOOD ORDERABLES Edited Resu lt - Final [facility] [place] [address] * Blood culture Blood (02/25/2024 11:05 AM BEDSPREAD CUTTER) Report Final Report: No growth Blood 02/25/2024 11:0 5 AM BEDSPREAD CUTTER 02/25/2024 11:22 AM BEDSPREAD CUTTER Narrative [facility] - 02/29/2024 12:00 PM BEDSPREAD CUTTER 1. Blood cultures are incubated for 4 days on a continuously monitored blood culture system. The first report of a negative culture is issued within 24 hours of receipt of the specimen in the laboratory. 2. Positive culture results are reported as soon as they are detected. 3. The most important factor for detection of microbes in the setting of bloodstream infection is the volume of blood submitted for culture. Failure to collect an optimal blood volume can result in false negative blood cultures. 4. For pediatric patients, the recommended blood volume to collect follows a weight based strategy. See the electronic test catalog for collection instructions. 5. For positive blood cultures, a rapid molecular test may be performed for organism identification using the tru ePlex blood culture identification panel for gram positive (BCID-GP) and gram negative (BCID-GN) organisms. This nucleic acid amplification test detects microbial DNA in positive blood culture broth. This assay has been cleared by the [place] Food and Drug Administration and its performance characteristics have been verified by the [facility]. For questions about this culture, contact the Microbiology Laboratory at [phone]. Interpretive data was last revised on 23. Andrez Moyer MD LAB MICROBIOLOGY - GENERAL ORDER DELFINA Final Result Performing Organization Address City/[facility]/ZIP Co de Phone Number [facility] [facility] [place] [address] * Blood culture Blood (02/25/2024 11:05 AM BEDSPREAD CUTTER) Report Final Report: No growth Blood 02/25/2024 11:0 5 AM BEDSPREAD CUTTER 02/25/2024 11:22 AM BEDSPREAD CUTTER Narrative MADELEINE TERRY - 02/29/2024 12:00 PM BEDSPREAD CUTTER 1. Blood cultures are incubated for 4 days on a continuously monitored blood culture system. The first report of a negative culture is issued within 24 hours of receipt of the specimen in the laboratory. 2. Positive culture results are reported as soon as they are detected. 3. The most important factor for detection of microbes in the setting of bloodstream infection is the volume of blood submitted for culture. Failure to collect an optimal blood volume can result in false negative blood cultures. 4. For pediatric patients, the recommended blood volume to collect follows a weight based strategy. See the electronic test catalog for collection instructions. 5. For positive blood cultures, a rapid molecular test may be performed for organism identification using the tru ePlex blood culture identification panel for gram positive (BCID-GP) and gram negative (BCID-GN) organisms. This nucleic acid amplification test detects microbial DNA in positive blood culture broth. This assay has been cleared by the [place] Food and Drug Administration and its performance characteristics have been verified by the [facility]. For questions about this culture, contact the Microbiology Laboratory at [phone]. Interpretive data was last revised on 23. us Andrez Moyer MD LAB MICROBIOLOGY - GENERAL ORDER DELFINA Final Result Performing Organization Address City/[facility] Co de Phone Number MADELEINE Mckeon [facility] [place] [address] * (ABNORMAL) aPTT (02/25/2024 11:05 AM BEDSPREAD CUTTER) aPTT 27(L) 28 - 38 sec Comment: Interpretive Data Heparin therapeutic range: 66.0 - 100.0 seconds. Range based on correlation with therapeutic heparin activity range of 0.3 - 0.7 Units/mL. Current interpretive data was last revised on 2022. Blood 02/25/2024 11:0 5 AM BEDSPREAD CUTTER 02/25/2024 11:20 AM BEDSPREAD CUTTER Andrez Moyer MD LAB BLOOD ORDERABLES Final Resul t Performing Organization Address [facility] de Phone Number [facility] [place] [place] [address] * (ABNORMAL) Protime-INR (02/25/2024 11:05 AM BEDSPREAD CUTTER) PT 15.4(H) 9.7 - 13.0 sec INR 1.42(H) 0.90 - 1.20 [facility] Comment: Interpretive data Oral anticoagulant therapeutic ranges: Venous thromboembolism prophylaxis or treatment: 2.0-3.0 CARDIOLOGY Standard range: 2.0-3.0 High-intensity range: 2.5-3.5 Refer to indication-specific guidelines for appropriate target ranges for prosthetic heart valve replacement. Current interpretive data was last revised on 2019. Blood 02/25/2024 11:0 5 AM BEDSPREAD CUTTER 02/25/2024 11:20 AM BEDSPREAD CUTTER Andrez Moyer MD LAB BLOOD ORDERABLES Final Resul t Performing Organization Address [facility] de Phone Number [facility] [place] [address] * (ABNORMAL) CBC without differential (02/25/2024 11:05 AM BEDSPREAD CUTTER) WBC 23.7(H) 3.8 - 9.9 K/cumm Hgb 8.8(L) 11.9 - 15.5 g/dL [facility] Hct 27.4(L) 35.6 - 45.5 % [facility] Plt 203 150 - 400 K/cumm [facility] MPV 9.8 9.1 - 12.3 fL [facility] RBC 2.56(L) 3.90 - 5.20 M/cumm [facility] MCV 107.0(H) 81.3 - 96.4 fL [facility] MCH 34.4(H) 27.1 - 33.3 pg [facility] MCHC 32.1(L) 32.3 - 35.7 g/dL [facility] RDW CV 15.7(H) 11.1 - 14.9 % [facility] RDW SD 60.9(H) 35.7 - 48.1 fL [facility] NRBC abs 0.03(H) 0.00 - 0.01 K/cumm [facility] Blood 02/25/2024 11:0 5 AM BEDSPREAD CUTTER 02/25/2024 11:16 AM BEDSPREAD CUTTER Andrez Moyer MD LAB BLOOD ORDERABLES Final Resul t Performing Organization Address City/[facility] Co de Phone Number [facility] [place] [address] * (ABNORMAL) T4, free (02/25/2024 11:05 AM BEDSPREAD CUTTER) Free T4 0.78(L) 0.90 - 1.70 ng/dL Blood 02/25/2024 11:0 5 AM BEDSPREAD CUTTER 02/25/2024 11:12 AM BEDSPREAD CUTTER Narrative [facility] - 02/25/2024 12:22 PM BEDSPREAD CUTTER This test was reflexed from a TSH result. Andrez Moyer MD LAB BLOOD ORDERABLES Edited Resu lt - Final [facility] [place] [address] * (ABNORMAL) Phosphorus (02/25/2024 11:05 AM BEDSPREAD CUTTER) Phosphorus, pl 6.5(H) 2.3 - 4.5 mg/dL Blood 02/25/2024 11:0 5 AM BEDSPREAD CUTTER 02/25/2024 11:12 AM BEDSPREAD CUTTER us Andrez Moyer MD LAB BLOOD ORDERABLES Final Resul t Performing Organization Address [facility] de Phone Number [facility] [place] [address] * Magnesium (02/25/2024 11:05 AM BEDSPREAD CUTTER) Pathologist [facility] Magnesium 1.4 1.4 - 2.5 mg/dL Blood 02/25/2024 11:0 5 AM BEDSPREAD CUTTER 02/25/2024 11:12 AM BEDSPREAD CUTTER us Andrez Moyer MD LAB BLOOD ORDERABLES Final Resul t Performing Organization Address [facility] [place] [address] * (ABNORMAL) Blood gas, arterial (02/25/2024 11:05 AM BEDSPREAD CUTTER) pH, Art 7.34(L) 7.35 - 7.45 PCO2, Arterial 53(H) 35 - 45 mmHg [facility] PO2, Arterial 138(H) 83 - 108 mmHg [facility] HCO3 Art (Calculated) 29 20 - 30 mmol/L [facility] BE, art 2 mmol/L [facility] Comment: Interpretive Data No Reference Range Established Current Interpretive Data was last revised on 2017 O2 Sat Art (Measured) 99(H) 90 - 95 % [facility] Blood 02/25/2024 11:0 5 AM BEDSPREAD CUTTER 02/25/2024 11:11 AM BEDSPREAD CUTTER Result Mark Moyer MD LAB BLOOD ORDERABLES Final Resul t Performing Organization Address [facility] [place] [address] * (ABNORMAL) Lipid panel (02/25/2024 11:05 AM [facility]) Cholesterol 97 30 - 199 mg/dL Comment: Interpretive Data Ages < or = 19 years Acceptable: <170 mg/dL Borderline high: 170-199 mg/dL High: >or= 200 mg/dL Ages > or = 20 years Desirable: <200 mg/dL Borderline high: 200-239 mg/dL High: >or= 240 mg/dL Literature References: 1. Expert Panel on Integrated Guidelines for Cardiovascular Health and Risk Reduction in Children and Adolescents. Pediatrics 2011;128:S213 2. NCEP Expert Panel. Circulation 2004;110:227 Current Interpretive Data was last revised on 2017. Triglycerides 276(H) <=149 mg/dL [facility] Comment: Interpretive Data Ages < or = 9 years Acceptable: <75 mg/dL Borderline high: 75-99 mg/dL High: >or= 100 mg/dL Ages 10 to 20 years Acceptable: <90 mg/dL Borderline high: 90-129 mg/dL High: >or= 130 mg/dL Ages > or = 20 years Desirable: <150 mg/dL Borderline high: 150-199 mg/dL High: 200-499 mg/dL Very high: >or= 499 mg/dL Literature References: 1. Expert Panel on Integrated Guidelines for Cardiovascular Health and Risk Reduction in Children and Adolescents. Pediatrics 2011;128:S213 2. NCEP Expert Panel. Circulation 2004;110:227 Current Interpretive Data was last revised on 2017. HDL 26(L) >=40 mg/dL [facility] Comment: Interpretive Data Ages < or = 19 years Acceptable: >45 mg/dL Borderline low: 40-45 mg/dL Low: <40 mg/dL Ages > or = 20 years Desirable: >or= 60 mg/dL Low: <40 mg/dL Literature References: 1. Expert Panel on Integrated Guidelines for Cardiovascular Health and Risk Reduction in Children and Adolescents. Pediatrics 2011;128:S213 2. NCEP Expert Panel. Circulation 2004;110:227 Current Interpretive Data was last revised on 2017. LDL, calculated 29 <=129 mg/dL [facility] Comment: Interpretive Data Ages < or = 19 years Acceptable: <110 mg/dL Borderline high: 110-129 mg/dL High: >or= 130 mg/dL Ages > or = 20 years Optimal: <100 mg/dL Near optimal: 100-129 mg/dL Borderline high: 130-159 mg/dL High: >160 mg/dL Calculated using the Jose Alfredo LDL-C estimating equation. This equation was implemented on 2023. Prior to this date LDL-C was estimated using the Friedewald equation. Literature References: 1. Expert Panel on Integrated Guidelines for Cardiovascular Health and Risk Reduction in Children and Adolescents. Pediatrics 2011;128:S213 2. NCEP Expert Panel. Circulation 2004;110:227 3. Jose Alfredo Wheat et al. WALI Cardiol. 2020 July 04;5(5):540-548. doi: 10.1001/[email or web address] Current Interpretive Data was last revised on 2023. Non-HDL Cholesterol 71 mg/dL [facility] Comment: Interpretive Data Ages < or = 19 years Acceptable: <120 mg/dL Borderline high: 120-144 mg/dL High: >145 mg/dL Ages > or = 20 years When triglycerides are >200 mg/dL, Non-HDL cholesterol is a secondary target of therapy with treatment goals that are 30 mg/dL greater than the LDL cholesterol target. Literature References: 1. Expert Panel on Integrated Guidelines for Cardiovascular Health and Risk Reduction in Children and Adolescents. Pediatrics 2011;128:S213 2. NCEP Expert Panel. Circulation 2004;110:227 Current Interpretive Data was last revised on 2017. Chol/HDL ratio 4 [facility] Blood 02/25/2024 11:0 5 AM BEDSPREAD CUTTER 02/25/2024 11:12 AM BEDSPREAD CUTTER us Krysten Cohn MD LAB BLOOD ORDERABLES Final Result [facility] Department of Laboratories [place], [place] [id number] * (ABNORMAL) Comprehensive metabolic panel (02/25/2024 11:05 AM BEDSPREAD CUTTER) Sodium 132(L) 135 - 145 mmol/L Potassium, pl 3.5 3.3 - 4.9 mmol/L [facility] Chloride 89(L) 97 - 110 mmol/L [facility] CO2 27 22 - 32 mmol/L [facility] Anion gap 16(H) 2 - 15 mmol/L [facility] BUN 39(H) 6 - 25 mg/dL [facility] Creatinine 3.07(H) 0.60 - 1.10 mg/dL [facility] Glucose 117 70 - 199 mg/dL [facility] Comment: Interpretive Data Fasting glucose >/= 126 mg/dl is diagnostic for diabetes. Fasting is defined as no caloric intake for at least 8 hours. Fasting glucose between 100 mg/dl to 125 mg/dl is diagnostic of prediabetes. In a patient with classic symptoms of hyperglycemia or hyperglycemic crisis, a random glucose >/= 200 mg/dl is diagnostic for diabetes. In the absence of unequivocal hyperglycemia, results should be confirmed by repeat testing. The classification and Diagnosis of Diabetes Diabetes Care 2021; 46: S19-S40. Current interpretive data was last revised 2022. Calcium 7.7(L) 8.5 - 10.3 mg/dL [facility] Bilirubin, total 0.6 0.1 - 1.2 mg/dL [facility] Protein, pl 5.8(L) 6.5 - 8.5 g/dL [facility] Albumin 2.8(L) 3.5 - 5.0 g/dL [facility] Alk phos 147(H) 40 - 130 Units/L [facility] ALT 16 7 - 45 Units/L [facility] AST 48(H) 10 - 45 Units/L [facility] Blood 02/25/2024 11:0 5 AM BEDSPREAD CUTTER 02/25/2024 11:12 AM BEDSPREAD CUTTER us Andrez Moyer MD LAB BLOOD ORDERABLES Final Resul t [facility] One [facility] [place] [address] * POCT glucose (02/25/2024 8:23 AM BEDSPREAD CUTTER) Glucose, POC 137 70 - 199 mg/dL Blood 02/25/2024 8:23 AM BEDSPREAD CUTTER 02/25/2024 8:23 AM BEDSPREAD CUTTER us Kyrsten Cohn MD LAB POCT ORDERABLES - DEVICE Final Result Performing Organization Address City/[facility]/ZIP Co de Phone Number [facility] [place] [address] * (ABNORMAL) Arterial Blood gas w/Lactate POCT (02/25/2024 7:54 AM BEDSPREAD CUTTER) [facility] Lactate POC i-STAT 1.6 0.7 - 2.2 mmol/L pH POC 7.29(L) 7.35 - 7.45 [facility] pCO2, Art POC 67(H) 35 - 45 mmHg [facility] PO2 POC 217(H) 80 - 105 mmHg [facility] CO2, total POC 34(H) 20 - 30 mmol/L [facility] HCO3, POC 32(H) 21 - 30 mmol/L [facility] BE POC 6(H) -2 - 3 mmol/L [facility] O2 sat POC 100(H) 95 - 98 % [facility] Blood 02/25/2024 7:54 AM BEDSPREAD CUTTER 02/25/2024 7:54 AM BEDSPREAD CUTTER us Krysten Cohn MD LAB BLOOD ORDERABLES Final Result Performing Organization Address [facility] Co de Phone Number MADELEINE [facility] [place] [address] * XR Chest 1 View (02/25/2024 7:34 AM BEDSPREAD CUTTER) Anatomical Region Laterality Modality Body, Chest N/A Computed Radiogr aphy 02/25/2024 10:2 3 AM BEDSPREAD CUTTER Impressions 02/25/2024 10:23 AM BEDSPREAD CUTTER Comparison is made to chest radiograph of 09/26/2021 at 3:59 PM Anteroposterior chest radiograph demonstrates new elevation right hemidiaphragm. There is patchy opacities in bilateral mid and lower lungs which could be due to atelectasis. Aspiration or pneumonia could account for some of the nodular opacity seen in the periphery of the left lung. Clinical correlation recommended. There is no pneumothorax. Interval right shoulder replacement. Electronically signed by: Mini Wooten M.D. Narrative 02/25/2024 10:23 AM BEDSPREAD CUTTER EXAMINATION: 1 view chest radiograph Procedure Note Mini Wooten MD - 02/25/2024 EXAMINATION: 1 view chest radiograph IMPRESSION: Comparison is made to chest radiograph of 09/26/2021 at 3:59 PM Anteroposterior chest radiograph demonstrates new elevation right hemidiaphragm. There is patchy opacities in bilateral mid and lower lungs which could be due to atelectasis. Aspiration or pneumonia could account for some of the nodular opacity seen in the periphery of the left lung. Clinical correlation recommended. There is no pneumothorax. Interval right shoulder replacement. Electronically signed by: Mini Wooten M.D. Krysten Cohn MD IMG XR PROCEDURES Fin al Result * (ABNORMAL) eGFR (02/25/2024 4:49 AM BEDSPREAD CUTTER) eGFR 18(L) >=60 mL/min/1. 73 m2 Comment: Interpretive Data Reference Interval Normal >/= 90 mL/min/1.73m2 Mildly decreased* 60 - 89 mL/min/1.73m2 Mildly to moderately decreased 45 - 59 mL/min/1.73m2 Moderately to severely decreased 30 - 44 mL/min/1.73m2 Severely decreased 15 - 29 mL/min/1.73m2 Kidney Failure < 15 mL/min/1.73m2 *Relative to young adult level Estimated glomerular filtration rate is determined by the 2020 CKD-EPI equation recommended by the National Kidney Foundation (A Unifying Approach to GFR Estimation: Recommendations of the NKF-ASK Task Force on Reassessing the Inclusion of Race in Diagnosing Kidney Disease, SYLVIASDenise 2020). The CKD-EPI equation should not be used for patients with unstable renal function and has not been validated in children and those over 70. Current interpretive data was last reviewed 2021. Blood 02/25/2024 4:49 AM BEDSPREAD CUTTER 02/25/2024 5:39 AM BEDSPREAD CUTTER us Krysten Cohn MD LAB BLOOD ORDERABLES Final Result Performing Organization Address City/[facility] Co de Phone Number [facility] [place] [address] * (ABNORMAL) Hemoglobin and hematocrit (02/25/2024 4:49 AM BEDSPREAD CUTTER) Hgb 9.2(L) 11.9 - 15.5 g/dL Hct 29.0(L) 35.6 - 45.5 % [facility] Blood 02/25/2024 4:49 AM BEDSPREAD CUTTER 02/25/2024 5:39 AM BEDSPREAD CUTTER Krysten Cohn MD LAB BLOOD ORDERABLES Final Result Performing Organization Address [facility] de Phone Number [facility] [place] [address] * (ABNORMAL) Basic metabolic panel (02/25/2024 4:49 AM BEDSPREAD CUTTER) Pathologist [facility] Sodium 136 135 - 145 mmol/L Potassium, pl 3.4 3.3 - 4.9 mmol/L [facility] Chloride 94(L) 97 - 110 mmol/L [facility] CO2 30 22 - 32 mmol/L [facility] Anion gap 12 2 - 15 mmol/L [facility] BUN 39(H) 6 - 25 mg/dL [facility] Creatinine 2.97(H) 0.60 - 1.10 mg/dL [facility] Glucose 105 70 - 199 mg/dL [facility] Comment: Interpretive Data Fasting glucose >/= 126 mg/dl is diagnostic for diabetes. Fasting is defined as no caloric intake for at least 8 hours. Fasting glucose between 100 mg/dl to 125 mg/dl is diagnostic of prediabetes. In a patient with classic symptoms of hyperglycemia or hyperglycemic crisis, a random glucose >/= 200 mg/dl is diagnostic for diabetes. In the absence of unequivocal hyperglycemia, results should be confirmed by repeat testing. The classification and Diagnosis of Diabetes Diabetes Care 202; 46: S19-S40. Current interpretive data was last revised 2022. Calcium 7.4(L) 8.5 - 10.3 mg/dL [facility] Blood 02/25/2024 4:49 AM BEDSPREAD CUTTER 02/25/2024 5:39 AM BEDSPREAD CUTTER us Krysten Cohn MD LAB BLOOD ORDERABLES Final Result Performing Organization Address City/[facility]/ZIP Co de Phone Number [facility] [place] [place] [address] * (ABNORMAL) eGFR (02/24/2024 9:26 PM BEDSPREAD CUTTER) Pathologist [facility] eGFR 20(L) >=60 mL/min/1. 73 m2 Comment: Interpretive Data Reference Interval Normal >/= 90 mL/min/1.73m2 Mildly decreased* 60 - 89 mL/min/1.73m2 Mildly to moderately decreased 45 - 59 mL/min/1.73m2 Moderately to severely decreased 30 - 44 mL/min/1.73m2 Severely decreased 15 - 29 mL/min/1.73m2 Kidney Failure < 15 mL/min/1.73m2 *Relative to young adult level Estimated glomerular filtration rate is determined by the 2020 CKD-EPI equation recommended by the National Kidney Foundation (A Unifying Approach to GFR Estimation: Recommendations of the NKF-ASK Task Force on Reassessing the Inclusion of Race in Diagnosing Kidney Disease, JASN 2020). The CKD-EPI equation should not be used for patients with unstable renal function and has not been validated in children and those over 70. Current interpretive data was last reviewed 2021. Blood 02/24/2024 9:26 PM BEDSPREAD CUTTER 02/24/2024 9:53 PM BEDSPREAD CUTTER us Jovita Higuera MD LAB BLOOD ORDERABLES Final Result Performing Organization Address City/[facility]/ZIP Co de Phone Number [facility] [place] [place] [address] * (ABNORMAL) Hemoglobin and hematocrit (02/24/2024 9:26 PM BEDSPREAD CUTTER) Pathologist [facility] Hgb 9.1(L) 11.9 - 15.5 g/dL Hct 28.4(L) 35.6 - 45.5 % [facility] Blood 02/24/2024 9:26 PM BEDSPREAD CUTTER 02/24/2024 9:55 PM BEDSPREAD CUTTER Jovita Higuera MD LAB BLOOD ORDERABLES Final Result [facility] One [facility] [place] [address] * (ABNORMAL) Basic metabolic panel (02/24/2024 9:26 PM BEDSPREAD CUTTER) [facility] Sodium 137 135 - 145 mmol/L Potassium, pl 3.5 3.3 - 4.9 mmol/L [facility] Chloride 95(L) 97 - 110 mmol/L [facility] CO2 29 22 - 32 mmol/L [facility] Anion gap 13 2 - 15 mmol/L [facility] BUN 34(H) 6 - 25 mg/dL [facility] Creatinine 2.67(H) 0.60 - 1.10 mg/dL [facility] Comment:Reviewed Glucose 128 70 - 199 mg/dL [facility] Comment: Interpretive Data Fasting glucose >/= 126 mg/dl is diagnostic for diabetes. Fasting is defined as no caloric intake for at least 8 hours. Fasting glucose between 100 mg/dl to 125 mg/dl is diagnostic of prediabetes. In a patient with classic symptoms of hyperglycemia or hyperglycemic crisis, a random glucose >/= 200 mg/dl is diagnostic for diabetes. In the absence of unequivocal hyperglycemia, results should be confirmed by repeat testing. The classification and Diagnosis of Diabetes Diabetes Care 2021; 46: S19-S40. Current interpretive data was last revised 2022. Calcium 7.5(L) 8.5 - 10.3 mg/dL [facility] Blood 02/24/2024 9:26 PM BEDSPREAD CUTTER 02/24/2024 9:53 PM BEDSPREAD CUTTER Jovita Higuera MD LAB BLOOD [place] [address] * POCT glucose (02/24/2024 9:17 PM BEDSPREAD CUTTER) Glucose, POC 152 70 - 199 mg/dL Blood 02/24/2024 9:17 PM BEDSPREAD CUTTER 02/24/2024 9:17 PM BEDSPREAD CUTTER us Krysten Cohn MD LAB POCT ORDERABLES - DEVICE Final Result Performing Organization Address City/[facility]/ZIP Co de Phone Number [facility] [place] [address] * POCT glucose (02/24/2024 5:15 PM BEDSPREAD CUTTER) Glucose, POC 148 70 - 199 mg/dL Blood 02/24/2024 5:15 PM BEDSPREAD CUTTER 02/24/2024 5:15 PM BEDSPREAD CUTTER us Krysten Cohn MD LAB POCT ORDERABLES - DEVICE Final Result Performing Organization Address City/[facility]/[place] [address] * POCT glucose (02/24/2024 12:22 PM BEDSPREAD CUTTER) Glucose, POC 148 70 - 199 mg/dL Blood 02/24/2024 12:2 2 PM BEDSPREAD CUTTER 02/24/2024 12:22 PM BEDSPREAD CUTTER us Krysten Cohn MD LAB POCT ORDERABLES - DEVICE Final Result Performing Organization Address City/[facility]/ZIP Co de Phone Number [facility] [place] [address] * POCT glucose (02/24/2024 9:55 AM BEDSPREAD CUTTER) Glucose, POC 145 70 - 199 mg/dL Blood 02/24/2024 9:5 5 AM BEDSPREAD CUTTER 02/24/2024 9:55 AM BEDSPREAD CUTTER us Krysten Cohn MD LAB POCT ORDERABLES - DEVICE Final Result Performing Organization Address [facility] de Phone Number [facility] [place] [address] * (ABNORMAL) eGFR (02/23/2024 11:18 PM BEDSPREAD CUTTER) [facility] eGFR 47(L) >=60 mL/min/1. 73 m2 Comment: Interpretive Data Reference Interval Normal >/= 90 mL/min/1.73m2 Mildly decreased* 60 - 89 mL/min/1.73m2 Mildly to moderately decreased 45 - 59 mL/min/1.73m2 Moderately to severely decreased 30 - 44 mL/min/1.73m2 Severely decreased 15 - 29 mL/min/1.73m2 Kidney Failure < 15 mL/min/1.73m2 *Relative to young adult level Estimated glomerular filtration rate is determined by the 2020 CKD-EPI equation recommended by the National Kidney Foundation (A Unifying Approach to GFR Estimation: Recommendations of the NKF-ASK Task Force on Reassessing the Inclusion of Race in Diagnosing Kidney Disease, JASN 2020). The CKD-EPI equation should not be used for patients with unstable renal function and has not been validated in children and those over 70. Current interpretive data was last reviewed 2021. Blood 02/23/2024 11:1 8 PM BEDSPREAD CUTTER 02/23/2024 11:44 PM BEDSPREAD CUTTER us Elder Garza III, MD LAB BLOOD ORDERABL ES Final Result Performing Organization Address [facility] Co de Phone Number MADELEINE [facility] [place] [address] * (ABNORMAL) Hemoglobin and hematocrit (02/23/2024 11:18 PM BEDSPREAD CUTTER) Hgb 9.7(L) 11.9 - 15.5 g/dL Hct 30.3(L) 35.6 - 45.5 % [facility] Blood 02/23/2024 11:1 8 PM BEDSPREAD CUTTER 02/23/2024 11:46 PM BEDSPREAD CUTTER Narrative [facility] - 02/23/2024 11:56 PM BEDSPREAD CUTTER change to CBC when needed Elder Garza III, MD LAB BLOOD ORDERABL ES Final Result [facility] One [facility] [place] [address] * (ABNORMAL) Basic metabolic panel (02/23/2024 11:18 PM BEDSPREAD CUTTER) Pathologist [facility] Sodium 139 135 - 145 mmol/L Potassium, pl 3.3 3.3 - 4.9 mmol/L [facility] Chloride 96(L) 97 - 110 mmol/L [facility] CO2 32 22 - 32 mmol/L [facility] Anion gap 11 2 - 15 mmol/L [facility] BUN 28(H) 6 - 25 mg/dL [facility] Creatinine 1.33(H) 0.60 - 1.10 mg/dL [facility] Glucose 188 70 - 199 mg/dL [facility] Comment: Interpretive Data Fasting glucose >/= 126 mg/dl is diagnostic for diabetes. Fasting is defined as no caloric intake for at least 8 hours. Fasting glucose between 100 mg/dl to 125 mg/dl is diagnostic of prediabetes. In a patient with classic symptoms of hyperglycemia or hyperglycemic crisis, a random glucose >/= 200 mg/dl is diagnostic for diabetes. In the absence of unequivocal hyperglycemia, results should be confirmed by repeat testing. The classification and Diagnosis of Diabetes Diabetes Care 202; 46: S19-S40. Current interpretive data was last revised 2022. Calcium 7.6(L) 8.5 - 10.3 mg/dL [facility] Blood 02/23/2024 11:1 8 PM BEDSPREAD CUTTER 02/23/2024 11:44 PM BEDSPREAD CUTTER Narrative [facility] - 02/24/2024 12:14 AM BEDSPREAD CUTTER Daily us Elder Garza III, MD LAB BLOOD ORDERABL ES Final Result Performing Organization Address City/[facility]/ZIP Co de Phone Number [facility] [place] [address] * POCT glucose (02/23/2024 9:15 PM BEDSPREAD CUTTER) Glucose, POC 135 70 - 199 mg/dL Blood 02/23/2024 9:15 PM BEDSPREAD CUTTER 02/23/2024 9:15 PM BEDSPREAD CUTTER us Krysten Cohn MD LAB POCT ORDERABLES - DEVICE Final Result Performing Organization Address [facility] Co de Phone Number [facility] [place] [address] * XR Shoulder Right 2+ View (02/23/2024 6:49 PM BEDSPREAD CUTTER) Anatomical Region Laterality Modality Upper Extremities, Shoulder Right Comp uted Radiography 02/23/2024 7:19 PM BEDSPREAD CUTTER Impressions 02/23/2024 7:19 PM BEDSPREAD CUTTER 1. 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 There has been interval placement of a right reverse total shoulder arthroplasty with components in expected position without periprosthetic fracture. Intra-articular and deep soft tissue gas are noted. Acromioclavicular osteoarthritis appears unchanged Right lower lobe atelectasis present. Procedure Note Jeremy Martin MD PhD - 02/23/2024 EXAMINATION: Right shoulder 2+ views HISTORY: Right shoulder dislocation FINDINGS: 2 AP radiographs the right shoulder compared to prior radiographs from 01/22/2024. There has been interval placement of a right reverse total shoulder arthroplasty with components in expected position without periprosthetic fracture. Intra-articular and deep soft tissue gas are noted. Acromioclavicular osteoarthritis appears unchanged Right lower lobe atelectasis present. IMPRESSION: 1. 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 Electronically signed by: Jeremy Martin MD, PHD Elder Garza III, MD IMG XR PROCEDURES Final Result * [place] AN PROCEDURE PLACEHOLDER (02/23/2024 5:45 PM BEDSPREAD CUTTER) Chantell Kellie BlackFILOMENA - 02/23/2024 5:45 PM BEDSPREAD CUTTER Kellie Blackhanie, KILN PLACER 02/23/2024 5:46 PM Peripheral IV Catheter Patient location: OR Staff: Placed by: Anesthesiologist: Andriy Martínez MD PhD Preprocedure prep: Prep solution: alcohol PPE: gloves and provider hat/mask PIV line: Laterality: left Location: chest. Catheter size: 20 g Technique: anatomical landmarks and direct visualization Procedure details: good blood return Number of attempts: 1 Assessment: Events: patient tolerated procedure well with no complications us Andriy Martínez MD PhD ANESTHESIA ORDERABLES Final Result * [place] AN PROCEDURE PLACEHOLDER (02/23/2024 3:57 PM BEDSPREAD CUTTER) Chantell Kellie Black KILN PLACER - 02/23/2024 3:57 PM BEDSPREAD CUTTER Kellie Black KILN PLACER 02/23/2024 3:57 PM Arterial Line Patient location: OR Indication: continuous blood pressure monitoring and blood sampling needed Ultrasound assisted: yes Staff: Supervising provider: Andriy Martínez MD PhD Placed by: Other staff: Ben Pappas Procedure prep: Prep solution: chlorhexadine/alcohol Prep: provider hat/mask and sterile gloves Arterial line: Catheter size: 20 gauge Catheter length: 5 cm Catheter type: wire-guided catheter Laterality: left Site: radial artery Line secured: tape and Tegaderm Results: good waveform and good blood return Number of attempts: 2 Assessment: Events: patient tolerated procedure well with no complications Andriy Martínez MD PhD ANESTHESIA ORDERABLES Final Result * [place] AN ELECTIVE ENDOTRACHEAL AIRWAY, [place] AN PROCEDURE PLACEHOLDER (02/23/2024 3:37 PM BEDSPREAD CUTTER) Narrative Ben Pappas - 02/23/2024 3:37 PM BEDSPREAD CUTTER Ben Pappas 02/23/2024 3:38 PM Airway Patient location: OR Urgency: elective Indications for airway management: anesthesia Difficult airway: no Staff: Supervising provider: Andriy Martínez MD PhD Placed by: Other staff: Ben Pappas Emergent airway documentation: Risks and benefits discussed: yes Consent obtained: yes Consent given by: patient Airway prep: Preoxygenated: yes Patient position: sniffing MILS maintained throughout: yes Mask difficulty assessment: 2 - vent by mask + OA or adjuvant Spontaneous ventilation during airway: absent Sedation level during airway: GA Final airway details: Final airway type: endotracheal airway Tube type: ETT ETT size: 7.0 mm Cuffed: yes Technique used for successful ETT placement: video laryngoscopy Insertion site: oral Blade type: Ray Video blade type: Amador Blade size: 3 Cormack-Lehane (video): grade IIa - partial view of glottis Cuff volume: 7 mL Cuff inflated with: air ETT to lips: 24 cm Placement verified by: auscultation and CO2 detection Airway secured with: silk tape Number of attempts: 1 us Andriy Martínez MD PhD ANESTHESIA ORDERABLES Final Result * [place] AN PROCEDURE PLACEHOLDER (02/23/2024 2:49 PM BEDSPREAD CUTTER) Narrative Tricia Fernandez MD - 02/23/2024 2:49 PM BEDSPREAD CUTTER Emile Monaco MD 02/23/2024 2:49 PM Peripheral Block Patient location during procedure: pre-op holding Reason for block: post-op pain management per surgeon request Ultrasound image in chart or stored: yes Block type: single shot Laterality: right Block type: PECS II Staff: Supervising provider: Tricia Fernandez MD Placed by: Fellow: Emile Monaco MD Procedure prep: Preprocedure checklist: patient identified, procedure contraindications assessed, site marked, procedure consent, surgical consent, IV checked, risks, benefits and alternatives discussed, monitors and equipment checked and timeout performed Patient position: supine Procedure performed while patient: sedate with meaningful contact Monitoring: ECG, oximetry and blood pressure Supplemental O2: nasal cannula Prep solution: chlorhexidine/alcohol PPE: provider hat/mask, sterile gloves and sterile probe cover and gel Peripheral nerve block: Technique: ultrasound guided Needle type: insulated, short-bevel and echogenic Needle gauge: 20 G Needle length: 80 mm Injection assessment: injection made incrementally with constant monitoring, local visualized surrounding nerve on ultrasound, negative aspiration for heme, no paresthesias noted, normal resistance to injection and see flowsheet for medication details Assessment: Block success: full evaluation pending Events: patient tolerated procedure well with no complications Emile Monaco MD ANESTHESIA ORDERABLES Final R esult * BW IP ANE LDA PERIPHERAL NERVE CATHETER, [place] AN PROCEDURE PLACEHOLDER (02/23/2024 2:45 PM BEDSPREAD CUTTER) Narrative Tricia Fernandez MD - 02/23/2024 2:45 PM BEDSPREAD CUTTER Emile Monaco MD 02/23/2024 2:49 PM Peripheral Block Patient location during procedure: pre-op holding Reason for block: post-op pain management per surgeon request Ultrasound image in chart or stored: yes Block type: catheter continuous infusion Laterality: right Block type: brachial plexus - interscalene Staff: Supervising provider: Tricia Fernandez MD Placed by: Fellow: Emile Monaco MD Procedure prep: Preprocedure checklist: patient identified, procedure contraindications assessed, site marked, procedure consent, surgical consent, IV checked, risks, benefits and alternatives discussed, monitors and equipment checked and timeout performed Patient position: head of bed elevated Procedure performed while patient: sedate with meaningful contact Monitoring: ECG, oximetry and blood pressure Supplemental O2: nasal cannula Prep solution: chlorhexidine/alcohol PPE: provider hat/mask, sterile gloves, sterile drape and sterile probe cover and gel Skin infiltrated with lidocaine 1%: yes Peripheral nerve block: Technique: ultrasound guided Needle type: insulated, short-bevel and echogenic Needle gauge: 18 G Needle length: 50 mm (68mm) Injection assessment: injection made incrementally with constant monitoring, local visualized surrounding nerve on ultrasound, negative aspiration for heme, no paresthesias noted, normal resistance to injection and see flowsheet for medication details Catheter: Catheter type: 20g non-stimulating catheter Catheter over needle length: 51 Catheter placement details: catheter position confirmed by ultrasound, no aspiration of heme, mastisol, steri-strips, dermal adhesive and occlusive dressing applied Assessment: Block success: full evaluation pending Events: patient tolerated procedure well with no complications us Emile Monaco MD ANESTHESIA ORDERABLES Final R esult * Check Sample (02/23/2024 12:52 PM BEDSPREAD CUTTER) Pathologist [facility] ABO Rh A Positive [facility] OTHER 02/23/2024 12:5 2 PM BEDSPREAD CUTTER 02/23/2024 1:00 PM BEDSPREAD CUTTER us Krysten Cohn MD LAB BLOOD ORDERABLES Final Result Performing Organization Address [facility] de Phone Number [facility] [place] [address] BJ * TYPE AND SCREEN 14 DAY (02/15/2024 9:06 AM BEDSPREAD CUTTER) Pathologist [facility] ABO Rh A Positive Sandra, indirect Negative [facility] Blood 02/15/2024 9:06 AM BEDSPREAD CUTTER 02/15/2024 10:35 AM BEDSPREAD CUTTER N[facility]ative [facility] - 02/15/2024 11:35 AM BEDSPREAD CUTTER Is this test being ordered in advance for a procedure?->Yes Expected date of procedure:->02/23/24 Has the patient been transfused in the past 3 months?->No Has the patient been in the past 3 months?->No Marley Grover NP LAB BLOOD BANK TEST ORDE RABLES Final Result Performing Organization Address [facility] Co de Phone Number [facility] [place] [address] * eGFR (02/15/2024 9:06 AM BEDSPREAD CUTTER) Pathologist [facility] eGFR 87 >=60 mL/min/1. 73 m2 Comment: Interpretive Data Reference Interval Normal >/= 90 mL/min/1.73m2 Mildly decreased* 60 - 89 mL/min/1.73m2 Mildly to moderately decreased 45 - 59 mL/min/1.73m2 Moderately to severely decreased 30 - 44 mL/min/1.73m2 Severely decreased 15 - 29 mL/min/1.73m2 Kidney Failure < 15 mL/min/1.73m2 *Relative to young adult level Estimated glomerular filtration rate is determined by the 2020 CKD-EPI equation recommended by the National Kid[employer] (A Unifying Approach to GFR Estimation: Recommendations of the NKF-ASK Task Force on Reassessing the Inclusion of Race in Diagnosing Kidney Disease, JASN 2020). The CKD-EPI equation should not be used for patients with unstable renal function and has not been validated in children and those over 70. Current interpretive data was last reviewed 2021. Blood 02/15/2024 9:06 AM BEDSPREAD CUTTER 02/15/2024 10:09 AM BEDSPREAD CUTTER us Krysten Cohn MD LAB BLOOD ORDERABLES Final Result Performing Organization Address City/[facility]/ZIP Co de Phone Number [facility] [place] [address] * Vitamin D 25 hydroxy (02/15/2024 9:06 AM BEDSPREAD CUTTER) Pathologist [facility] Vitamin D 25-OH 47 30 - 80 ng/mL Blood 02/15/2024 9:06 AM BEDSPREAD CUTTER 02/15/2024 10:09 AM BEDSPREAD CUTTER us Krysten Cohn MD LAB BLOOD ORDERABLES Final Result Performing Organization Address City/[facility] Co de Phone Number [facility] [place] [address] * (ABNORMAL) CBC without differential (02/15/2024 9:06 AM BEDSPREAD CUTTER) Pathologist [facility] WBC 5.8 3.8 - 9.9 K/cumm Hgb 12.8 11.9 - 15.5 g/dL [facility] Hct 39.4 35.6 - 45.5 % [facility] Plt 200 150 - 400 K/cumm [facility] MPV 9.2 9.1 - 12.3 fL [facility] RBC 3.69(L) 3.90 - 5.20 M/cumm [facility] MCV 106.8(H) 81.3 - 96.4 fL [facility] MCH 34.7(H) 27.1 - 33.3 pg [facility] MCHC 32.5 32.3 - 35.7 g/dL [facility] RDW CV 15.5(H) 11.1 - 14.9 % [facility] RDW SD 61.2(H) 35.7 - 48.1 fL [facility] NRBC abs 0.00 0.00 - 0.01 K/cumm [facility] Blood 02/15/2024 9:06 AM BEDSPREAD CUTTER 02/15/2024 10:09 AM BEDSPREAD CUTTER Marley Grover PHARMACY INFORMATICS SPECIALIST LAB BLOOD ORDERABLES Fin al Result [facility] [place] [address] * (ABNORMAL) Comprehensive metabolic panel (02/15/2024 9:06 AM BEDSPREAD CUTTER) Sodium 138 135 - 145 mmol/L Potassium, pl 3.8 3.3 - 4.9 mmol/L [facility] Chloride 93(L) 97 - 110 mmol/L [facility] CO2 34(H) 22 - 32 mmol/L [facility] Anion gap 11 2 - 15 mmol/L [facility] BUN 13 6 - 25 mg/dL [facility] Creatinine 0.80 0.60 - 1.10 mg/dL [facility] Glucose 105 70 - 199 mg/dL [facility] Comment: Interpretive Data Fasting glucose >/= 126 mg/dl is diagnostic for diabetes. Fasting is defined as no caloric intake for at least 8 hours. Fasting glucose between 100 mg/dl to 125 mg/dl is diagnostic of prediabetes. In a patient with classic symptoms of hyperglycemia or hyperglycemic crisis, a random glucose >/= 200 mg/dl is diagnostic for diabetes. In the absence of unequivocal hyperglycemia, results should be confirmed by repeat testing. The classification and Diagnosis of Diabetes Diabetes Care 202; 46: S19-S40. Current interpretive data was last revised 2022. Calcium 8.9 8.5 - 10.3 mg/dL [facility] Bilirubin, total 0.7 0.1 - 1.2 mg/dL [facility] Protein, pl 7.4 6.5 - 8.5 g/dL [facility] Albumin 3.7 3.5 - 5.0 g/dL [facility] Alk phos 221(H) 40 - 130 [facility] ALT 21 7 - 45 Units/L [facility] AST 49(H) 10 - 45 Units/L [facility] Blood 02/15/2024 9:06 AM BEDSPREAD CUTTER 02/15/2024 10:09 AM BEDSPREAD CUTTER us Krysten Cohn MD LAB BLOOD ORDERABLES Final Result Performing Organization Address City/[facility]/ZIP Co de Phone Number [facility] [place] [address] * ECG 12 lead (02/15/2024 8:38 AM BEDSPREAD CUTTER) Ventricular Rate EKG/Min 80 BPM [facility] Atrial Rate 80 BPM [facility] [place]-Interval (MSEC) 184 ms [facility] QRS-Interval (MSEC) 104 ms [facility] QT-Interval (MSEC) 414 ms [facility] QTc 477 ms [facility] P [place] 60 degrees [facility] R [place] 32 degrees [facility] T [place] 26 degrees [facility] Diagnosis Normal sinus rhythm Low voltage QRS Cannot rule out Anterior infarct , age undetermined Abnormal ECG When compared with ECG of 12-DEC-2020 11:35, no significant change Confirmed by KARI GONZALEZ M.D ([id number]) on 02/15/2024 12:09:38 PM [facility] 02/15/2024 8:38 AM BEDSPREAD CUTTER 02/15/2024 12:09 PM BEDSPREAD CUTTER us Marley Grover NP ECG ORDERABLES Final Re sult [facility] * MRI Shoulder Right WO Contrast (01/31/2024 10:42 AM BEDSPREAD CUTTER) Anatomical Region Laterality Modality Upper Extremities Right Magnetic Reson ance 01/31/2024 10:5 2 AM BEDSPREAD CUTTER Impressions 01/31/2024 10:52 AM BEDSPREAD CUTTER 1. Persistent anteroinferior right shoulder dislocation with a large currently engaged Hill-Sachs impaction fracture. 2. Extensive anterior and anteroinferior labral tear. 3. Complex superior and posterior labral tear. 4. Large glenohumeral joint effusion with loose intra-articular bodies. 5. Extensive articular sided partial-thickness supraspinatus and infraspinatus tendon tear. Electronically signed by: Too Donaldson MD Narrative 01/31/2024 10:52 AM BEDSPREAD CUTTER EXAMINATION: MRI SHOULDER RIGHT WO CONTRAST HISTORY: Right shoulder dislocation FINDINGS: Comparison is made to the examination dated 01/22/2024. MR examination of the right shoulder was performed with a local coil. Transverse, oblique coronal, and oblique sagittal short TR/TE and fast spin-echo images are obtained. Examination is limited by patient motion. Persistent anteroinferior right glenohumeral dislocation with large Hill-Sachs impaction fracture and associated marrow edema. No definite osseous Bankart lesion. There is a type I acromion. The coracoacromial ligament is mildly thickened. There is a small subacromial spur. Mild to moderate acromioclavicular osteoarthritis. There is moderate subacromial subdeltoid bursitis. Deltoid muscle atrophy with anterior edema. Mild fatty infiltration of the infraspinatus muscle. There is mild atrophy and fatty infiltration of the teres minor and supraspinatus muscles. The subscapularis muscle demonstrates normal bulk and signal. The subscapularis tendon is intact. There is a diffuse partial thickness undersurface tear involving the supraspinatus and infraspinatus tendons, involving less than 50% of the tendon thickness. This is superimposed on moderate tendinopathy. On this nonarthrographic evaluation, there is a complex tear of the superior labrum that extends into the biceps origin. There is also a complex posterior labral tear. The intra-articular biceps tendon is intact. The anterior and anteroinferior labrum are not visualized, likely due to extensive tear. Mild to moderate glenohumeral chondrosis There is a large volume of fluid within the glenohumeral joint. Extensive synovitis with multiple loose bodies, the largest of which measures 1.5 cm, and lies anterior to the scapula. Procedure Note Too Donaldson MD - 01/31/2024 EXAMINATION: MRI SHOULDER RIGHT WO CONTRAST HISTORY: Right shoulder dislocation FINDINGS: Comparison is made to the examination dated 01/22/2024. MR examination of the right shoulder was performed with a local coil. Transverse, oblique coronal, and oblique sagittal short TR/TE and fast spin-echo images are obtained. Examination is limited by patient motion. Persistent anteroinferior right glenohumeral dislocation with large Hill-Sachs impaction fracture and associated marrow edema. No definite osseous Bankart lesion. There is a type I acromion. The coracoacromial ligament is mildly thickened. There is a small subacromial spur. Mild to moderate acromioclavicular osteoarthritis. There is moderate subacromial subdeltoid bursitis. Deltoid muscle atrophy with anterior edema. Mild fatty infiltration of the infraspinatus muscle. There is mild atrophy and fatty infiltration of the teres minor and supraspinatus muscles. The subscapularis muscle demonstrates normal bulk and signal. The subscapularis tendon is intact. There is a diffuse partial thickness undersurface tear involving the supraspinatus and infraspinatus tendons, involving less than 50% of the tendon thickness. This is superimposed on moderate tendinopathy. On this nonarthrographic evaluation, there is a complex tear of the superior labrum that extends into the biceps origin. There is also a complex posterior labral tear. The intra-articular biceps tendon is intact. The anterior and anteroinferior labrum are not visualized, likely due to extensive tear. Mild to moderate glenohumeral chondrosis There is a large volume of fluid within the glenohumeral joint. Extensive synovitis with multiple loose bodies, the largest of which measures 1.5 cm, and lies anterior to the scapula. IMPRESSION: 1. Persistent anteroinferior right shoulder dislocation with a large currently engaged Hill-Sachs impaction fracture. 2. Extensive anterior and anteroinferior labral tear. 3. Complex superior and posterior labral tear. 4. Large glenohumeral joint effusion with loose intra-articular bodies. 5. Extensive articular sided partial-thickness supraspinatus and infraspinatus tendon tear. Electronically signed by: Too Donaldson MD Krysten Cohn MD IMG MRI PROCEDURES Fi nal Result * CT Shoulder Right WO Contrast and 3D Recons (01/31/2024 9:11 AM BEDSPREAD CUTTER) Anatomical Region Laterality Modality Upper Extremities Right Computed Tomog sheela 01/31/2024 1:14 PM BEDSPREAD CUTTER Impressions 01/31/2024 1:18 PM BEDSPREAD CUTTER 1. Anteroinferior right shoulder dislocation, with large, off track, engaged right Hill-Sachs impaction fracture deformity of the proximal humerus. 2. Inferiorly displaced right coracoid fracture. 3. Moderate osteoarthritis of the right glenohumeral joint with moderate-sized effusion and numerous loose bodies. Dictated by: Kit Olivarez M.D. The radiology attending physician has personally reviewed this study, and had reviewed and/or edited this written report and agrees with it. Electronically signed by: Too Donaldson MD Narrative 01/31/2024 1:18 PM BEDSPREAD CUTTER EXAMINATION: CT SHOULDER RIGHT WO CONTRAST AND 3D RECONS HISTORY: 53 years-old Female with Shoulder pain, chronic, rotator cuff disorder suspected, xray done. TECHNIQUE: Transaxial computed tomographic images of the right shoulder were obtained without the use of intravenous contrast. Coronal and sagittal reformations were performed and also reviewed. Images were transferred to an independent workstation for additional 3D post-processing. COMPARISON: 01/22/2024 radiographs FINDINGS: The right humeral head is anteroinferiorly dislocated with respect to the glenoid, which is off track and engaged with a large Hill-Sachs impaction fracture deformity which measures up to 2.4 cm in width. There is [id number] contact and moderate osteoarthritis of the right glenohumeral joint with a moderate-sized right glenohumeral joint effusion and numerous loose bodies. There is an avulsion fracture of the distal coracoid, which is inferiorly displaced and residing in the region of the bicipital groove. No evidence of glenoid or clavicle fracture. There is moderate right acromioclavicular osteoarthritis. Old granulomatous disease in the imaged right lung with motion artifact degrading images. No right axillary lymphadenopathy. Procedure Note Too Donaldson MD - 01/31/2024 EXAMINATION: CT SHOULDER RIGHT WO CONTRAST AND 3D RECONS HISTORY: 53 years-old Female with Shoulder pain, chronic, rotator cuff disorder suspected, xray done. TECHNIQUE: Transaxial computed tomographic images of the right shoulder were obtained without the use of intravenous contrast. Coronal and sagittal reformations were performed and also reviewed. Images were transferred to an independent workstation for additional 3D post-processing. COMPARISON: 01/22/2024 radiographs FINDINGS: The right humeral head is anteroinferiorly dislocated with respect to the glenoid, which is off track and engaged with a large Hill-Sachs impaction fracture deformity which measures up to 2.4 cm in width. There is [id number] contact and moderate osteoarthritis of the right glenohumeral joint with a moderate-sized right glenohumeral joint effusion and numerous loose bodies. There is an avulsion fracture of the distal coracoid, which is inferiorly displaced and residing in the region of the bicipital groove. No evidence of glenoid or clavicle fracture. There is moderate right acromioclavicular osteoarthritis. Old granulomatous disease in the imaged right lung with motion artifact degrading images. No right axillary lymphadenopathy. IMPRESSION: 1. Anteroinferior right shoulder dislocation, with large, off track, engaged right Hill-Sachs impaction fracture deformity of the proximal humerus. 2. Inferiorly displaced right coracoid fracture. 3. Moderate osteoarthritis of the right glenohumeral joint with moderate-sized effusion and numerous loose bodies. Dictated by: Kit Olivarez M.D. The radiology attending physician has personally reviewed this study, and had reviewed and/or edited this written report and agrees with it. Electronically signed by: Too Donaldson MD Krysten Cohn MD IMG CT PROCEDURES Fin al Result * Radiology Event (01/31/2024 9:11 AM BEDSPREAD CUTTER) Anatomical Region Laterality Modality Computed Tomogra phy 01/31/2024 11:5 3 AM BEDSPREAD CUTTER Impressions 01/31/2024 2:25 PM BEDSPREAD CUTTER Fall with mild bruising to the dorsum of the left hand. Instructions given to patient regarding event: yes Dictated by: Trudy Sanchez MD The radiology attending physician has personally reviewed this study, and had reviewed and/or edited this written report and agrees with it. Electronically signed by: Francisco Encinas M.D. Narrative 01/31/2024 2:25 PM BEDSPREAD CUTTER EXAMINATION: General Radiology Event Report DATE of EVENT:01/31/2024 9:34 AM I was asked to see NOLVIA BRANCH regarding a fall from her wheelchair at the [facility]. Event: This was a Fall Patient was checking in for her appointment at the [facility]. She reported that her wheelchair was unlocked, and she fell forward, catching her fall with her left wrist in a extended position. Patient has history of hardware removal in the left radius/ulna in November. Her main complaint is left wrist pain and swelling. On physical exam, there is mild diffuse swelling about the left wrist, and bruising of the knuckles. Small abrasion of the left elbow. No acute sharp pain upon palpation of the left hand and wrist. Pulses were intact. Normal tilting head band sawyer strength without pain when flexing. Patient mentioned that she had a follow-up visit with orthopedic surgery regarding her right shoulder later this afternoon. Based on physical exam, no indication for immediate emergent management. Patient was given return precautions. Patient's orthopedic surgeon Dr. Krysten Cohn, who will be seeing patient this afternoon, was informed of the fall and agreed to evaluate the patient in clinic. Patient was amenable to this plan. Actions: Patient evaluated at scanner, physical exam performed The highest level of care provided was monitoring, physical exam. Procedure Note Francisco Encinas MD - 01/31/2024 EXAMINATION: General Radiology Event Report DATE of EVENT:01/31/2024 9:34 AM I was asked to see NOLVIA BRANCH regarding a fall from her wheelchair at the [facility]. Event: This was a Fall Patient was checking in for her appointment at the [facility]. She reported that her wheelchair was unlocked, and she fell forward, catching her fall with her left wrist in a extended position. Patient has history of hardware removal in the left radius/ulna in November. Her main complaint is left wrist pain and swelling. On physical exam, there is mild diffuse swelling about the left wrist, and bruising of the knuckles. Small abrasion of the left elbow. No acute sharp pain upon palpation of the left hand and wrist. Pulses were intact. Normal tilting head band sawyer strength without pain when flexing. Patient mentioned that she had a follow-up visit with orthopedic surgery regarding her right shoulder later this afternoon. Based on physical exam, no indication for immediate emergent management. Patient was given return precautions. Patient's orthopedic surgeon Dr. Krysten Cohn, who will be seeing patient this afternoon, was informed of the fall and agreed to evaluate the patient in clinic. Patient was amenable to this plan. Actions: Patient evaluated at scanner, physical exam performed The highest level of care provided was monitoring, physical exam. IMPRESSION: Fall with mild bruising to the dorsum of the left hand. Instructions given to patient regarding event: yes Dictated by: Trudy Sanchez MD The radiology attending physician has personally reviewed this study, and had reviewed and/or edited this written report and agrees with it. Electronically signed by: Francisco Encinas M.D. Krysten Cohn MD IMG CT PROCEDURES Fin al Result * MAMMOGRAPHY (01/16/2021) Shantanu Moon MD HEALTH MAINTENANCE Edited Re sult - Final from Last 3 Months or Most Recently Relevant to Health Maintenance Insurance [facility] [employer] EMPLOYEES [address] [place] [address] EMPLOYEES [employer] Advance Directives For more information, please contact: [phone] * Full Code (Latest Code Status on File) Date Activated Date Inactivated Comments 04/03/2024 2:40 AM 04/08/2024 9:34 PM * Full Code Date Activated Date Inactivated Comments 02/23/2024 8:30 PM 03/13/2024 12:40 AM * Full Code Date Activated Date Inactivated Comments 12/12/2020 4:04 PM 12/13/2020 10:24 PM Healthcare Agents on File Name Relationship Healthcare Agent Relationshi p Communication Roderick Branch Spouse Health Care Agent Grecia Torres First Alternate Health Care Agent Care Teams Timekeeper Supervisor Relationship Specialty Start Date End Date Tiffany Edmond NP [address] [place] [address] PCP - General Internal Medicine 07/12/22
--- OUTSIDE RECORDS SUMMARY | 2024-04-29 15:53 | XMS_ITS | Clinical Summary ---
Author Organization [facility] Address [address] [place] [address] Care Team Providers Care Veterinary Medicine Scientist Name Role Phone Tiffany Edmond NP Primary Care Provider [phone] Allergies Active Allergy Reactions Criticality Noted Date Comments Adhesive Tape-Silicones Other (See comments) Reaction: ERYTHEMA, Cephalexin Other (See comments) Low 09/26/2021 Patient states she retains water when she takes Keflex 02/28/24 - Approved to give cefazolin with cephalexin allergy per Jones London MD/Manjit Davidson, PharmD Has received and tolerated cefazolin, cefepime and cefadroxil Penicillins Anaphylaxis High 11/26/2015 Reaction: ANAPHYLAXIS, dating back to 2018 02/25/24 - Approved to give cefazolin with cephalexin allergy per Jones London MD/Manjit Davidson, PharmD Has received and tolerated cefazolin, cefepime and cefadroxil [place] Swelling,Edema Medium Reaction: SWELLING, Medications multivitamin tablet [...] 12 (twelve) hours for 48 doses 03/11/19 025 Discontinued(Th erapy completed) losartan (COZAAR) 25 mg tabletIndicatio ns:cardiomyopat hy Take 0.5 tablets (12.5 mg total) by mouth daily 03/12/19 25 025 Discontinued(Th erapy completed) sodium chlor-hypochlor ous acid (Vashe) 0.033 % irrigation solution 1 each by other route 2 (two) times a day 03/12/19 25 025 Discontinued(Th erapy completed) oxyBUTYnin (DITROPAN) 5 mg tabletIndicatio ns:OAB (overactive bladder) Take 1 tablet by mouth twice daily 60 tablet 03/21/19 25 025 Discontinued(Re order) cefadroxil (DURICEF) 500 mg [...] systolic an d diastolic congestive heart failure ([facility]) 04/29/2024 Prolonged QT interval 04/29/2024 Cutaneous abscess of left lower extremity 2024 Hypocalcemia 04/05/2024 Prediabetes 04/05/2024 Sepsis due to skin infection 04/03/2024 Type 2 diabetes mellitus wit h hyperosmolarity without coma, without long-term current use of insulin ([facility]) 04/03/2024 Other hyperlipidemia 04/03/2024 Macrocytic anemia 04/03/2024 Transaminitis 04/03/2024 Leukocytosis 04/03/2024 Skin ulcer of upper arm, limited to breakdown of skin 04/03/2024 Knee ulcer due to DM 04/03/2024 BMI 60.0-69.9, adult 04/02/2024 Assessment & Plan (04/02/2024 2:14 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): Discussed the patient's BMI. The BMI is above average. BMI management plan is completed. BMI Follow-up includes: nutrition counseling, exercise counseling and education provided. Cellulitis of left lower extremity 04/02/2024 Leg wound, left, subsequent encounter 03/20/2024 Blood culture positive for microorganism 024 Assessment & Plan (2024 11:33 AM AUTO CRANE DRIVER): Blood cx 03/07 positive for staph epidermidis on , since then on NGTD - Likely was contaminant, do not [...] Wound care through - Lymphedema referral for care - Labs today to assess status of the infection/inflammation as well as check on any adverse effects from antibiotic. Cefadroxil can be associated with positive Sandra' test without hemolytic anemia. Rarely, it can be associated with convulsions, disorientation, hallucinations, fevers, neutropenia, thrombocytopenia, hepatitis. CBC and CMP should be monitored while on this medication. Assessment & Plan (2024 1:05 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): Nolvia Branch is a 53 y.o. female [...] obesity, hepatic steatosis, suspected DYLLAN and recent MARY/hypoxemia Assessment & Plan (03/03/2024 5:27 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): Continue cefazolin 2gm IV q 8hrs. If crcl drops under 50 this will need dose adjustment She has not had bacteremia or joint involvement, so I do not anticipate needing prolonged IV abx Would continue cefazolin with anticipated transition to PO abx at hospital discharge to complete 14-21 day course Assessment & Plan (2024 11:34 AM AUTO CRANE DRIVER): Cultures positive for MSSA - agree with ID team plan for Ancef LFT elevation 03/03/2024 Assessment & Plan (03/05/2024 12:30 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): Hepatitis panel negative. US showing hepatic steatosis. Possibly related to episode of hypotensions vs DILI - resolving Acute postoperative pain of right shoulder 02/25 Respiratory failure (CMS/HCC) 02/25/2024 Assessment & Plan (03/03/2024 10:32 AM AUTO CRANE DRIVER): Patient developed acute hypoxic respiratory failure which has now resolved and patient is off oxygen Most recent chest x-ray showed clear lungs Peripheral nerve catheter present 02/24/2024 Traumatic complete tear of right rotator cuff History of right shoulder replacement 02/23/2024 Assessment & Plan (03/03/2024 10:31 AM AUTO CRANE DRIVER): Ortho team primary, management per ortho Acute [...] Muscle spasms of both lower extremities 07/12/19 23 Generalized anxiety disorder 04/27/2022 Primary insomnia 04/27/2022 Fatigue 02/15/2022 Sore throat 02/15/2022 Chronic pain of both knees 02/15/2022 Renal insufficiency 10/14/2021 Assessment & Plan (03/03/2024 10:37 AM AUTO CRANE DRIVER): Patient required CRRT during hospitalization, Now creatinine [...] 12/12/2020 Assessment & Plan (01/22/2021 2:28 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): Repeat cmp in 30d Assessment & Plan (12/15/2020 2:58 PM CDT): Repeat bmp this week Hypokalemia 12/12/2020 Assessment & Plan (10/14/2021 11:47 AM CDT): We reviewed recent labs, will repeat bmp this week. Assessment & Plan (01/22/2021 2:28 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): Continue with lasix and kcl Repeat a cmp in 30d Assessment & Plan (12/15/2020 2:58 PM CDT): Repeat bmp this week Insulin resistance 09/21/2020 Overview (09/21/2020): Fasting insulin 23.8; glucose 127 -- CLAUDIA-IR 7.5 Assessment & Plan (08/09/2021 10:59 AM CDT): Reviewed interim labs. Continue low-carb (<150 g/day), low-glycemic diet. Continue GLP-1 RA. Assessment & Plan (05/12/2021 9:49 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): Reviewed interim labs. Continue low-carb (<150 g/day), low-glycemic diet. Resume GLP-1 RA. Assessment & Plan (09/21/2020 4:21 PM CDT): Reviewed labs. Continue low-carb (<150 g/day), low-glycemic diet. Contact dermatitis 09/08/2020 Assessment & Plan (09/08/2020 12:52 PM CDT): Will use mdp and topical triamcinolone Lymphedema of both lower extremities 09/08/2020 Assessment & Plan (01/22/2021 2:28 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): Continue with lasix and natividad benítez Assessment [...] phone. Assessment & Plan (05/12/2021 9:46 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): Reviewed calorie restriction based on BMR as previously detailed. Reviewed recommendation/goal of >/= 150 minutes/week moderate-intensity aerobic exercise. Asked to keep detailed food diary for at least 1 week and bring to next visit and/or continue tracking on phone. Assessment & Plan (04/01/2021 8:26 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): Reviewed calorie restriction based on BMR as [...] 08/18/2020 Assessment & Plan (04/01/2021 8:26 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): Continue low-carb (<150 g/day), low-glycemic diet. Continue [...] w/r/t gut microbiome. Referred to ADA and [facility] websites for additional information on topics including glycemic index/carbohydrate choices, protein sources. Class 3 severe obesity due t o excess calories with serious comorbidity and body mass index (BMI) of 60.0 to 69.9 in adult 07/20/2020 Assessment & Plan (04/17/2024 9:03 AM AUTO CRANE DRIVER): Discussed the patient's BMI. The BMI is [...] provided. Assessment & Plan (05/12/2021 9:52 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): Obesity is worsening. Diet interventions: resume Wegovy. Regular aerobic exercise program discussed. Pharmacotherapy as ordered. Assessment & Plan (04/01/2021 8:28 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): Obesity is unchanged. Diet interventions: as noted. Regular aerobic exercise program discussed. Pharmacotherapy as ordered. Continue Wegovy. Assessment & Plan (01/22/2021 2:30 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): Obesity is unchanged. Discussed the patient's BMI. [...] to work out until she sees the line analyst She was advised no etoh Assessment & [...] Assessment & Plan (07/20/2020 7:25 PM CDT): [place], labs, will notify her of results as [...] labs. Assessment & Plan (03/10/2020 4:31 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): Fasting labs entered, will notify patient of [...] time Assessment & Plan (01/22/2021 2:28 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): Increase effexor Repeat cmp in 30d to evaluate for hyponatremia Assessment & Plan (09/08/2020 12:52 PM CDT): Advised her of potential qt prolongation with olanzepine. Reviewed up to date guidelines and will increase her effexor by 37.5mg every day. She was advised that her xanax will not be increased. Assessment & Plan (03/10/2020 4:32 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): Il custom harvester consistent rf meds prn Menopausal depression 11/26/2015 Assessment & Plan (03/10/2020 4:31 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): Continue with care per learning program manager Retrieve recent test results, including mammo, for chart update Essential (primary) hypertension 11/26/2015 Assessment & Plan (03/03/2024 10:32 AM AUTO CRANE DRIVER): Currently blood pressure is soft, continue Lopressor [...] She will keep her appointment with her line analyst as planned. Assessment & Plan (07/28/2020 11:53 [...] 60-80. Assessment & Plan (03/10/2020 4:31 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): Continue medication same Fasting labs entered, will notify patient of results as available Obesity, morbid, BMI 40.0-49.9 11/26/2015 Assessment & Plan (03/20/2024 8:22 AM AUTO CRANE DRIVER): Discussed the patient's BMI. The BMI is above average. BMI management plan is completed. BMI Follow-up includes: nutrition counseling, exercise counseling and education provided. Assessment & Plan (04/27/2022 10:18 AM AUTO CRANE DRIVER): Discussed the patient's BMI. The BMI is [...] Heart failure with reduced e jection fraction ([facility]) 03/03/2024 04/29/2024 Assessment & Plan (03/05/2024 12:30 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): TTE: EF 47% - Cardiology planning outpatient [...] provided Assessment & Plan (04/27/2022 10:18 AM AUTO CRANE DRIVER): Discussed the patient's BMI. The BMI is [...] 04/27/2022 Assessment & Plan (02/15/2022 10:08 AM AUTO CRANE DRIVER): Obesity is unchanged. Discussed the patient's BMI. [...] provided. Assessment & Plan (01/22/2021 2:30 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): Obesity is unchanged. Discussed the patient's BMI. [...] 03/20/2024 Assessment & Plan (02/13/2024 10:34 AM AUTO CRANE DRIVER): Discussed the patient's BMI. The BMI is above average. BMI management plan is completed. BMI Follow-up includes: nutrition counseling, exercise counseling and education provided. Assessment & Plan (01/10/2024 9:18 AM AUTO CRANE DRIVER): Discussed the patient's BMI. The BMI is [...] provided. Assessment & Plan (03/02/2023 9:15 AM AUTO CRANE DRIVER): Discussed the patient's BMI. The BMI is [...] 03/10/2020 01/22/2021 BMI 40.0-44.9, adult 10/21/2016 021 Encounters Date Type Department Care Team Description 04/29/2024 2:45 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 Orders Only [facility] Office Building 2 Wound Care [address] [place] [address] Arrived 04/29/2024 1:00 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 Office Visit [facility] Medical Group Cardiology [address] [place] [address] Karie Rodríguez MD Essential (primary) hypertension (Primary Dx); Lymphedema; Chronic combined systolic and diastolic congestive heart failure (CMS/HCC) (HCC); Prolonged QT interval 04/29/2024 Orders Only [facility] Medical Group Internal Medicine [place] [address] [place] [address] Rd [address] [place] [address] Tiffany Edmond NP 04/25/2024 Telephone [facility] Orthopaedic Surgery [address] 12th [place] [address] [place] [address] Kellie Castillo 04/25/2024 Telephone [facility] Internal Medicine at [address] [place] [address] Tiffany Edmond NP Recommendation Request 04/22/2024 1:00 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 Orders Only [facility] Office Building 2 Wound Care [address] [place] [address] 04/18/2024 Telephone [facility] Orthopaedic Surgery [address] [place] [address] 12th [place] [address] [place] [address] Kellie Castillo 04/18/2024 Telephone [facility] Medical [facility] Internal Medicine at [address] [place] [address] Tiffany Edmond NP Additional Services Or Orders 04/17/2024 9:00 AM AUTO CRANE DRIVER Office Visit [facility] Medical [facility] Internal Medicine at [address] [place] [address] Tiffany Edmond NP Primary insomnia (Primary Dx); BMI 60.0-69.9, adult (HCC); Obesity, morbid, BMI 40.0-49.9 (HCC); OAB (overactive bladder); Neuropathy (CMS/HCC); Leg wound, left, subsequent encounter 04/17/2024 Telephone [facility] Medical Group Internal Medicine at [address] [place] [address] Tiffany Edmond NP Medical Question/Miscellaneo us 04/11/2024 8:00 AM AUTO CRANE DRIVER Orders Only [facility] Office Building 2 Wound Care [address] [place] [address] Knee ulcer due to DM (HCC) 04/03/2024 Orders Only [facility] Infectious Diseases [address] [place] [address] Ericka Glass MD Lymphedema (Primary Dx); Wound of left lower extremity, subsequent encounter 04/02/2024 8:33 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 - 04/08/2024 5:29 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 Hospital Encounter [facility] 2 Center [address] [place] [address] Prograis, MD Sina Holbrook, MD Marcelo Puente, MD Jenny Ludwig, MD Barak Zapata, MD Jaden Bosch, Renny Ventura MD Cellulitis of left lower extremity (Primary [...] Discharge to home, home health skilled care 04/02/2024 2:00 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 Office Visit [facility] Medical Group Internal Medicine at [address] [place] [address] Tiffany Edmond NP Knee ulcer due to DM (HCC) (Primary Dx); Class 3 severe obesity due to excess calories with serious comorbidity and body mass index (BMI) of 60.0 to 69.9 in adult (HCC) 04/01/2024 9:15 AM AUTO CRANE DRIVER Office Visit [facility] Orthopaedic Surgery [address] 12th [place] [address] [place] [address] Krysten Cohn MD Status post reverse arthroplasty of right shoulder (Primary Dx) 04/01/2024 9:00 AM AUTO CRANE DRIVER - 04/01/2024 11:59 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 Hospital Encounter [facility] Rad[facility] [address] [place] [address] Status post reverse arthroplasty of right shoulder Discharge Disposition: Discharge to home or self care 04/01/2024 Telephone [facility] Infectious Diseases [address] [place] [address] Tanesha Rojas, JOSE LUIS 04/01/2024 Telephone [facility] Medical Group Internal Medicine at [place] [address] [place] [address] Tiffany Edmond, JYOTI Medical Question/Miscellaneo us 03/27/2024 2:09 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 - 03/27/2024 11:59 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 Hospital Encounter [facility] [address] [place] [address] Discharge Disposition: Discharge to home or self care 03/27/2024 12:40 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 Office Visit [facility] Infectious Diseases [address] [place] [address] Ericka Glass MD Prepatellar bursitis of left knee (Primary Dx); Encounter for screening examination for sexually transmitted disease; Wound of left lower extremity, subsequent encounter; Lymphedema 03/27/2024 Telephone [facility] Orthopaedic Surgery [address] [place] [address] [facility] 12th [place] [address] [place] [address] Krysten Cohn MD 03/27/2024 Orders Only [facility] Orthopaedic Surgery [address] 12th [place] [address] [place] [address] Krysten Cohn MD Open knee wound, left, initial encounter (Primary Dx) 03/27/2024 Orders Only [facility] Infectious Diseases [address] [place] [address] Ericka Glass MD Prepatellar bursitis of left knee 03/26/2024 Telephone [facility] Orthopaedic Surgery Critical access hospital[address] [facility] [address]th [place] [address] [place] [address] Krysten Cohn MD 03/26/2024 Telephone [facility] Orthopaedic Surgery [address] 12th [place] [address] [place] [address] Krysten Cohn MD 03/25/2024 Telephone [facility] Medical Group Internal Medicine at [place] [address] [facility] [address] [place] [address] Tiffany Edmond NP Additional Services Or Orders 03/22/2024 Telephone [facility] Internal Medicine at [place] [address] [facility] [facility] [address] [place] [address] Tiffany Edmond NP Additional Services Or Orders; Call Back 03/20/2024 8:00 AM AUTO CRANE DRIVER Office Visit [facility] Medical [facility] Internal Medicine at [place] [address] [facility] [facility] [address] [place] [address] Tiffany Edmond NP History of right shoulder replacement (Primary Dx); Morbid obesity with BMI of 50.0-59.9, adult (HCC); Acute cough; Wound of left lower extremity, subsequent encounter 03/20/2024 Telephone [facility] Medical [facility] Internal Medicine at [place] [address] [facility] [facility] [address] [place] [address] Tiffany Edmond NP Patient Running Late For Apt 03/18/2024 Telephone [facility] Medical [facility] Internal Medicine at [place] [address] [facility] [facility] [address] [place] [address] Tiffany Edmond NP JASPER Questions 03/13/2024 Telephone [facility] Internal Medicine at [place] [address] [facility] [facility] [address] [place] [address] Tiffany Edmond NP Additional Services Or Orders 03/13/2024 Telephone [facility] Infectious Diseases [address] [place] [address] Bernie Mason, PIG CONVEYOR OPERATOR 03/13/2024 Telephone [facility] Medical [facility] Internal Medicine at [place] [address] [facility] [address] [place] [address] Tiffany Edmond NP Medical Question/Miscellaneo us 03/13/2024 Telephone [facility] Orthopaedic Surgery [address] [facility] 12th [place] [address] [place] [address] Krysten Cohn MD 03/12/2024 Documentation [facility] [address] [place] [address] Caitie Farris RN 03/01/2024 Telephone [facility] Cardiology [address] 8th [place] [address] [place] [address] Abbasi Danielle 02/27/2024 Orders Only [facility] Radiology 1 [place] [address] Art Ventura RN 02/26/2024 6:05 AM AUTO CRANE DRIVER Ancillary Procedure [facility] Vascular Lab IP [address] [facility] [address] [place] [address] 02/23/2024 2:42 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 Anesthesia Event [facility] Operating Room 1 [place] [address] Andriy Martínez MD PhD Marley Grover NP 02/23/2024 2:20 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 - 02/23/2024 5:30 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 Surgery [facility] Operating Room 1 [place] [address] Krysten Cohn MD Right Reverse Shoulder Arthroplasty 02/23/2024 10:54 AM AUTO CRANE DRIVER - 03/12/2024 8:34 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 Hospital Encounter [address] [address] Krysten Cohn MD Musleh, Amjad, MD Closed [...] Essential hypertension; Hypokalemia Discharge Disposition: Discharge to [facility] 02/23/2024 Telephone [facility] Family Medicine [address] [place] [address] [address] [place] [address] Marilyn Hernandez MA 02/15/2024 8:00 AM AUTO CRANE DRIVER Pre-Admission Testing [facility] Center for Preoperative Assessment and Planning [facility] [address] [place] [address] Preoperative testing (Primary Dx); Closed dislocation of right shoulder, initial encounter; Fracture of humeral head, closed, right, with routine healing, subsequent encounter 02/13/2024 10:30 AM AUTO CRANE DRIVER Office Visit [facility] Internal Medicine at [place] [address] [place] [address] [address] [place] [address] Tiffany Edmond NP Acute pain of right shoulder (Primary Dx); Morbid obesity with BMI of 50.0-59.9, adult (HCC) 02/12/2024 1:20 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 Telemedicine [facility] Minimally Invasive Surgery [facility] [address] [place] [address] Jessica Cardenas NP Morbid obesity (HCC) (Primary Dx); Encounter for weight management; H/O gastric bypass 02/05/2024 Telephone [facility] [address] [place] [address] Tawanna Bal LMSW 01/31/2024 7:52 AM AUTO CRANE DRIVER - 01/31/2024 11:59 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 Hospital Encounter [facility] Radiology [facility] [address] [place] [address] Krysten Cohn MD Anterior dislocation of right humerus, initial encounter; Right shoulder pain, unspecified chronicity Discharge Disposition: Discharge to home or self care 01/31/2024 7:38 AM AUTO CRANE DRIVER - 01/31/2024 11:59 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 Hospital Encounter [facility] Radiology [facility] [address] [place] [address] Krysten Cohn MD Anterior dislocation of right humerus, initial encounter; Right shoulder pain, unspecified chronicity Discharge Disposition: Discharge to home or self care 01/31/2024 Telephone [facility] ([facility]) [address] [place] [address] Jovita Gerardo, from Last 3 Months Immunizations Immunization Administration Dates Next Due Influenza, Unspecified 04/17/2024(Deferr ed: Patient Refused),03/20/2024(Deferred: Patient Refused),02/13/2024(Deferred: Patient Refused),03/06/2023(Deferred: Patient Refused),03/06/2023(Deferred: Patient Refused),03/06/2023(Deferred: Patient Refused),03/06/2023(Deferred: Patient Refused),03/06/2023(Deferred: Patient Refused),03/02/2023(Deferred: Patient Refused),11/16/2022(Deferred: Patient Refused),08/31/2022(Deferred: Patient Refused),07/11/2022(Deferred: Patient Refused),04/27/2022(Deferred: Patient Refused),03/06/2022(Deferred: Patient Refused),03/06/2022(Deferred: Patient Refused),04/06/2021(Deferred: Patient Refused),04/06/2021(Deferred: Patient Refused),04/06/2021(Deferred: Patient Refused) Pfizer SARS-CoV-2 Monovalent Vaccination (12+ Yrs) PURPLE 05/27/2020,05/27/2020,05/07/2020,2020 Tdap 07/28/2020 Surgical History Surgery Date Site/Laterality Comments GASTRIC BYPASS 08/03/2016 SECTION 03/06/1991 - 03/05/19921991 OVARY SURGERY to lift one of my ovaries that had fallen - 1985 COLONOSCOPY 03/06/2021 - 03/05/2022 HERNIA REPAIR 08/03/2016 ASPIRATION OF ABSCESS HEMATOMA CYST 05/05/2023 - 06/04/2023 Right right breast ORIF WRIST FRACTURE 05/05/2023 - 06/04/2023 Left WRIST SURGERY 11/05/2023 - 12/04/2023 hardward removal left wrist Medical History Medical History Date Comments Morbid obesity (HCC) Hypertension History of gastric bypass 2017 Heart attack (HCC) 07/19/2020 Anxiety Panic attacks since 2004 Arthritis 8 yrs ago Depression Off and on for 30 yrs Heart disease Neuromuscular disorder (HCC) Autoimmune disease (CMS/HCC) (HCC) Menstrual problem Menopause 2019 Family History Medical History Relation Name Comments Miscarriages / Stillbirths Maternal Grandmother Rita Abernathy Arthritis Mother Radha Young Clotting disorder Mother Radha Young Depression Mother Radha Young Diabetes Mother Radha Young Family history of diabetes mellitus - (Added by TW Conv)/Family history of diabetes mellitus - (Added by TW Conv) Hyperlipidemia Mother Radha Young Hypertension Mother Radha Young Family history of hypertension - (Added by TW Conv)/Family history of hypertension - (Added by TW Conv) Mental illness Mother Radha Young Vision loss Mother Radha Young Mental illness Mother's Sister Maude Sherwood Cerebral palsy Son Ronn Dossett Learning disabilities Son Ronn Dossett Mental illness Son Ronn Dossett Anesthesia problems Neg Hx Relation Name Status Comments Father Maternal Grandmother Rita Abernathy Mother Radha Young Alive Mother's Sister Maude Sherwood Son Ronn Dossett Social History Tobacco Use Types Packs/Day Years Used Date Smoking Tobacco: Former Cigarettes 0 07/14/2004 - 03/21/2015 Smokeless Tobacco: Never Tobacco Cessation:Counseling Given: Not Answered Alcohol Use Standard Drinks/Week Comments Not Currently 0 (1 standard drink = 0.6 oz pur e alcohol) [facility] Utilities Answer Date Recorded In the [...] often do you attend chur ch or anglican services? Never 04/03/2024 Do you belong to any clubs o r organizations such as congregation groups, unions, fraternal or athletic groups, or [...] any time in the past 12 m [facility], were you homeless or living in a intermediate (including now)? No 04/03/2024 Personal Safety Answer Date Recorded Have you ever been in or are you currently in a harmful physical or emotional relationship or is someone making you feel afraid or unsafe? Denies 04/03/2024 Comments No Sex and Gender Information Value Date Recorded Sex Assigned at Not on file Legal Sex Female 4:51 AM [employer] CRANE DRIVER Gender Identity Female 10/09/2020 9:44 AM CDT Sexual Orientation Straight 07/19/2020 12 :16 PM CDT Occupation Industry Job Start Date Job End Date [employer] Not on file Not on file Not on file Obstetrics History Last Filed Vital Signs Vital Sign Reading Time Taken Comments Blood Pressure 136/80 04/29/2024 12:48 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 Pulse 80 04/29/2024 12:48 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 Temperature 36.8 C (98.2 F) 04/17/2024 8:59 AM AUTO CRANE DRIVER Respiratory Rate 18 04/08/2024 3:16 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 Oxygen Saturation 93% 04/29/2024 12:48 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 Inhaled Oxygen Concentration - - Weight 152 kg (335 lb) 04/29/2024 12:48 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 Height 160 cm (5' 3 ) 04/29/2024 12:48 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 Body Mass Index 59.34 04/29/2024 12:48 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 Plan of Treatment Health Maintenance Due Date Last Done Comments Albumin Creatinine Ratio, Urine 1968 Cervical Cancer Screening 1968 Dilated Eye Exam 1968 Foot Exam 1968 Hepatitis B Screening 1986 Pneumococcal vaccine <65 (1 of 2 - PCV) 1987 Zoster Vaccine (1 of 2) 2018 Breast Cancer Screening-Mammogram 01/16/2022 01/16/2021 Regular Well Visit/Exam 18-64 09/01/2023 08/31/2022, 06/21/2021 Covid-19 Vaccine ( season) 2023 05/27/2020, 05/27/2020, 05/07/2020, Additional history exists Influenza Vaccine (#1) 2024 Postp oned from 11/05/2023 (Patient declined, but will receive in the future) Hemoglobin A1C 10/01/2024 04/03/2024, 12/05, 12/10/2021, Additional history exists eGFR 04/08/2025 04/08/2024, 02/0 04/2024, 04/06/2024, Additional history exists Depression Screening 04/17/2025 04/17/2024, 04/02/2024, 03/20/2024, Additional history exists Lipid Panel 04/29/2025 04/29/2024, 03/07, 02/25/2024, Additional history exists Colon Cancer Screening-Colonoscopy 03/06/2029 Postponed from 1968 (Not appropriate for this patient at this time) DTaP/Tdap/Td Vaccine (2 - Td or Tdap) 07/28/2030 07/28/2020 Hepatitis C Screening Completed 03/01/2024 Medical Devices Implanted Type Area Icu Rn Device Identifier Shelf Expiration Date Model / Serial / Lot [employer] Tornier Aequalis Perform 25mm Lateralize Augment Reverse Shoulder [id number] - [id number] - [id number] Implanted:Qty: 1 on 02/23/2024 by Krysten Cohn MD at [facility] Right: Shoulder [employer] 01/28/2029 [id number] / [id number] / [employer] Inc Aequalis Perform Reversed Od6.5 Mm L40 Mm Central Glenoid Screw Baseplate Nonsterile [id number] - [id number] Implanted:Qty: 1 on 02/23/2024 by Krysten Cohn MD at [facility] Right: Shoulder mention Medical [employer] [id number] / / mention Medical [email or web address] Screw Glenoid Locking Reverse Aequalis Perform 5x14mm Titanium [id number] - [id number] Implanted:Qty: 1 on 02/23/2024 by Krysten Cohn MD at [facility] Right: Shoulder mention [employer] [id number] / / [employer] Aequalis Perform Reversed 5mm 30mm Peripheral Glenoid Screw [id number] - [id number] Implanted:Qty: 2 on 02/23/2024 by Krysten Cohn MD at [facility] Right: Shoulder [employer] [id number] / / Kindful Component Glenosphere Reverse Lateralized Aequalis Perform +3x36mm [id number] - [id number] - [id number] Implanted:Qty: 1 on 02/23/2024 by Krysten Cohn MD at [facility] Right: Shoulder [employer] 11/02/2028 [id number] / [id number] / Kindful Stem Fracture Sz 11 L 130mm Humeral [id number] - [id number] - [id number] Implanted:Qty: 1 on 02/23/2024 by Krysten Cohn MD at [facility] Right: Shoulder [employer] 08/13/2028 [id number] / [id number] / Kindful Insert Perform Ret Ve [id number] - [id number] - [id number] Implanted:Qty: 1 on 02/23/2024 by Krysten Cohn MD at [facility] Right: Shoulder Kindful [id number] 03/30/2025 [id number] / [id number] / Procedures Procedure Name Priority Date/Time Associated Diagnosis Comments ELECTROCARDIOGRAM REPORT Routine 04/29/2024 3:06 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 Chronic combined systolic and diastolic congestive heart failure (CMS/HCC) (HCC) Prolonged QT interval POCT LIPID PANEL Routine 04/29/2024 12:42 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 Essential (primary) hypertension Chronic combined systolic and diastolic congestive heart failure (CMS/HCC) (HCC) MAGNESIUM Routine 04/08/2024 2:35 AM AUTO CRANE DRIVER EGFR Routine 04/08/2024 2:35 AM AUTO CRANE DRIVER BASIC METABOLIC PANEL Routine 04/08/2024 2:35 AM AUTO CRANE DRIVER EGFR Routine 04/07/2024 2:59 AM AUTO CRANE DRIVER BASIC METABOLIC PANEL Routine 04/07/2024 2:59 AM AUTO CRANE DRIVER SODIUM LEVEL Routine 04/06/2024 11:34 AM AUTO CRANE DRIVER EGFR Routine 04/06/2024 4:02 AM AUTO CRANE DRIVER DIFFERENTIAL AUTO Routine 04/06/2024 4:0 2 AM AUTO CRANE DRIVER CBC WITH AUTO DIFFERENTIAL Routine 04/06/2024 4:02 AM AUTO CRANE DRIVER BASIC METABOLIC PANEL Routine 04/06/2024 4:02 AM AUTO CRANE DRIVER EGFR Routine 04/05/2024 4:59 AM AUTO CRANE DRIVER DIFFERENTIAL AUTO Routine 04/05/2024 4:5 9 AM AUTO CRANE DRIVER CBC WITH AUTO DIFFERENTIAL Routine 04/05/2024 4:59 AM AUTO CRANE DRIVER BASIC METABOLIC PANEL Routine 04/05/2024 4:59 AM AUTO CRANE DRIVER VANCOMYCIN LEVEL TROUGH Timed 04/04/19 11:04 AM AUTO CRANE DRIVER EGFR Routine 04/04/2024 2:48 AM AUTO CRANE DRIVER DIFFERENTIAL AUTO Routine 04/04/2024 2:4 8 AM AUTO CRANE DRIVER COMPREHENSIVE METABOLIC PANEL Routine 04/04/2024 2:48 AM AUTO CRANE DRIVER CBC WITH AUTO DIFFERENTIAL Routine 04/04/2024 2:48 AM AUTO CRANE DRIVER POCT GLUCOSE DEVICE Routine 04/03/2024 4 :41 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 US VEIN DUPLEX LOWER EXTREMITY BILATERAL COMPLETE ED 04/03/2024 10:00 AM AUTO CRANE DRIVER EGFR Routine 04/03/2024 7:19 AM AUTO CRANE DRIVER T4, FREE Routine 04/03/2024 7:19 AM AUTO CRANE DRIVER DIFFERENTIAL AUTO Routine 04/03/2024 7:1 9 AM AUTO CRANE DRIVER BASIC METABOLIC PANEL Routine 04/03/2024 7:19 AM AUTO CRANE DRIVER FOLATE Routine 04/03/2024 7:19 AM AUTO CRANE DRIVER THYROID FUNCTION CASCADE Routine 04/03/2024 7:19 AM AUTO CRANE DRIVER HEMOGLOBIN A1C Routine 04/03/2024 7:19 AM AUTO CRANE DRIVER IRON PROFILE W/ IBC Routine 04/03/2024 7 :19 AM AUTO CRANE DRIVER FERRITIN Routine 04/03/2024 7:19 AM AUTO CRANE DRIVER VITAMIN B12 Routine 04/03/2024 7:19 AM AUTO CRANE DRIVER CBC WITH AUTO DIFFERENTIAL Routine 04/03/2024 7:19 AM AUTO CRANE DRIVER LIPID PANEL Routine 04/03/2024 7:19 AM AUTO CRANE DRIVER PRO B-TYPE NATRIURETIC PEPTIDE Routine 04/03/2024 7:19 AM AUTO CRANE DRIVER CRP (ACUTE PHASE) Routine 04/03/2024 7:1 9 AM AUTO CRANE DRIVER ERYTHROCYTE SEDIMENTATION RATE Routine 04/03/2024 7:19 AM AUTO CRANE DRIVER LACTATE Routine 04/03/2024 7:19 AM AUTO CRANE DRIVER PHOSPHORUS Routine 04/03/2024 7:19 AM AUTO CRANE DRIVER MAGNESIUM Routine 04/03/2024 7:19 AM AUTO CRANE DRIVER POCT GLUCOSE DEVICE Routine 04/03/2024 12:[address] ENTIRE LOWER EXTREMITY LEFT W WO CONTRAST ED 04/03/2024 12:08 AM AUTO CRANE DRIVER D-DIMER, QUANTITATIVE STAT 04/02/2024 9:57 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 AEROBIC AND ANAEROBIC CULTURE AND GRAM STAIN STAT 04/02/2024 9:57 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 BLOOD CULTURE STAT 04/02/2024 9:57 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 BLOOD CULTURE STAT 04/02/2024 9:57 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 INFLUENZA A/B, RSV, AND COVID-19 PCR STAT 04/02/2024 9:57 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 XR CHEST 1 VIEW ED 04/02/2024 9:35 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 XR KNEE LEFT 1 OR 2 VIEWS ED 04/02/2024 5:10 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 XR TIBIA FIBULA LEFT 2 VIEWS ED 04/02/2024 5:10 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 EGFR STAT 04/02/2024 4:07 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 DIFFERENTIAL AUTO STAT 04/02/2024 4:0 7 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 SEPSIS LACTATE WITH REFLEX Routine 04/02/2024 4:07 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 COMPREHENSIVE METABOLIC PANEL STAT 04/02/2024 4:07 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 CBC WITH AUTO DIFFERENTIAL STAT 04/02/2024 4:07 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 XR SHOULDER RIGHT 2 OR MORE VIEWS Schedule Routine, Read Routine (OP Routine) 04/01/2024 9:46 AM AUTO CRANE DRIVER Status post reverse arthroplasty of right shoulder EGFR Routine 03/27/2024 2:09 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 Prepatellar bursitis of left knee DIFFERENTIAL AUTO Routine 03/27/2024 2:0 9 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 Prepatellar bursitis of left knee GLUCOSE, RANDOM (OUTREACH) Routine 03/27/2024 2:09 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 Prepatellar bursitis of left knee COMPREHENSIVE METABOLIC PANEL WITHOUT GLUCOSE (OUTREACH) Routine 03/27/2024 2:09 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 Prepatellar bursitis of left knee ERYTHROCYTE SEDIMENTATION RATE Routine 03/27/2024 2:09 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 Prepatellar bursitis of left knee COMPREHENSIVE METABOLIC PANEL (OUTREACH) Routine 03/27/2024 2:09 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 Prepatellar bursitis of left knee CBC WITH AUTO DIFFERENTIAL Routine 03/27/2024 2:09 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 Prepatellar bursitis of left knee CRP (ACUTE PHASE) Routine 03/27/2024 2:0 9 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 Prepatellar bursitis of left knee POCT GLUCOSE DEVICE Routine 03/12/2024 7 :49 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 POCT GLUCOSE DEVICE Routine 03/12/2024 4 :39 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 POCT GLUCOSE DEVICE Routine 03/12/2024 11:41 AM AUTO CRANE DRIVER POCT GLUCOSE DEVICE Routine 03/12/2024 7 :48 AM AUTO CRANE DRIVER EGFR Routine 03/11/2024 9:56 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 DIFFERENTIAL AUTO Routine 03/11/2024 9:5 6 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 PHOSPHORUS Routine 03/11/2024 9:56 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 COMPREHENSIVE METABOLIC PANEL Routine 03/11/2024 9:56 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 MAGNESIUM Routine 03/11/2024 9:56 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 CBC WITH AUTO DIFFERENTIAL Routine 03/11/2024 9:56 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 POCT GLUCOSE DEVICE Routine 03/11/2024 7 :43 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 POCT GLUCOSE DEVICE Routine 03/11/2024 5 :07 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 POCT GLUCOSE DEVICE Routine 03/11/2024 11:52 AM AUTO CRANE DRIVER POCT GLUCOSE DEVICE Routine 03/11/2024 7 :40 AM AUTO CRANE DRIVER POCT GLUCOSE DEVICE Routine 03/10/2024 7 :47 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 POCT GLUCOSE DEVICE Routine 03/10/2024 5 :07 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 POCT GLUCOSE DEVICE Routine 03/10/2024 11:24 AM AUTO CRANE DRIVER POCT GLUCOSE DEVICE Routine 03/10/2024 7 :43 AM AUTO CRANE DRIVER EGFR Routine 03/09/2024 8:42 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 DIFFERENTIAL AUTO Routine 03/09/2024 8:4 2 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 PHOSPHORUS Routine 03/09/2024 8:42 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 COMPREHENSIVE METABOLIC PANEL Routine 03/09/2024 8:42 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 MAGNESIUM Routine 03/09/2024 8:42 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 CBC WITH AUTO DIFFERENTIAL Routine 03/09/2024 8:42 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 POCT GLUCOSE DEVICE Routine 03/09/2024 7 :31 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 POCT GLUCOSE DEVICE Routine 03/09/2024 4 :39 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 POCT GLUCOSE DEVICE Routine 03/09/2024 11:39 AM AUTO CRANE DRIVER POCT GLUCOSE DEVICE Routine 03/09/2024 8 :27 AM AUTO CRANE DRIVER EGFR Routine 03/08/2024 9:09 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 PHOSPHORUS Routine 03/08/2024 9:09 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 COMPREHENSIVE METABOLIC PANEL Routine 03/08/2024 9:09 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 MAGNESIUM Routine 03/08/2024 9:09 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 POCT GLUCOSE DEVICE Routine 03/08/2024 7 :40 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 POCT GLUCOSE DEVICE Routine 03/08/2024 5 :03 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 POCT GLUCOSE DEVICE Routine 03/08/2024 11:12 AM AUTO CRANE DRIVER POCT GLUCOSE DEVICE Routine 03/08/2024 8 :18 AM AUTO CRANE DRIVER EGFR Routine 03/07/2024 10:22 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 DIFFERENTIAL AUTO Routine 03/07/2024 10:22 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 PHOSPHORUS Routine 03/07/2024 10:22 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 COMPREHENSIVE METABOLIC PANEL Routine 03/07/2024 10:22 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 MAGNESIUM Routine 03/07/2024 10:22 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 CBC WITH AUTO DIFFERENTIAL Routine 03/07/2024 10:22 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 POCT GLUCOSE DEVICE Routine 03/07/2024 7 :39 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 POCT GLUCOSE DEVICE Routine 03/07/2024 5 :48 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 POCT GLUCOSE DEVICE Routine 03/07/2024 11:28 AM AUTO CRANE DRIVER POCT GLUCOSE DEVICE Routine 03/07/2024 7 :44 AM AUTO CRANE DRIVER EGFR Routine 03/06/2024 10:05 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 DIFFERENTIAL AUTO Routine 03/06/2024 10:05 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 PHOSPHORUS Routine 03/06/2024 10:05 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 COMPREHENSIVE METABOLIC PANEL Routine 03/06/2024 10:05 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 MAGNESIUM Routine 03/06/2024 10:05 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 CBC WITH AUTO DIFFERENTIAL Routine 03/06/2024 10:05 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 POCT GLUCOSE DEVICE Routine 03/06/2024 7 :31 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 POCT GLUCOSE DEVICE Routine 03/06/2024 5 :46 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 POCT GLUCOSE DEVICE Routine 03/06/2024 11:42 AM AUTO CRANE DRIVER POCT GLUCOSE DEVICE Routine 03/06/2024 8 :47 AM AUTO CRANE DRIVER PROTIME-INR STAT 03/05/2024 10:53 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 POCT GLUCOSE DEVICE Routine 03/05/2024 8 :00 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 EGFR Routine 03/05/2024 7:52 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 DIFFERENTIAL AUTO Routine 03/05/2024 7:5 2 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 PHOSPHORUS Routine 03/05/2024 7:52 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 COMPREHENSIVE METABOLIC PANEL Routine 03/05/2024 7:52 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 MAGNESIUM Routine 03/05/2024 7:52 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 CBC WITH AUTO DIFFERENTIAL Routine 03/05/2024 7:52 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 POCT GLUCOSE DEVICE Routine 03/05/2024 5 :07 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 POCT GLUCOSE DEVICE Routine 03/05/2024 11:39 AM AUTO CRANE DRIVER POCT GLUCOSE DEVICE Routine 03/05/2024 8 :03 AM AUTO CRANE DRIVER EGFR Routine 2024 10:39 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 DIFFERENTIAL AUTO Routine 2024 10:39 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 PHOSPHORUS Routine 2024 10:39 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 COMPREHENSIVE METABOLIC PANEL Routine 2024 10:39 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 PROTIME-INR Routine 2024 10:39 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 MAGNESIUM Routine 2024 10:39 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 CBC WITH AUTO DIFFERENTIAL Routine 2024 10:39 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 POCT GLUCOSE DEVICE Routine 2024 8 :09 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 POCT GLUCOSE DEVICE Routine 2024 4 :43 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 POCT GLUCOSE DEVICE Routine 2024 12:06 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 POCT GLUCOSE DEVICE Routine 2024 8 :37 AM AUTO CRANE DRIVER MANUAL DIFFERENTIAL Routine 03/03/2024 10:26 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 EGFR Routine 03/03/2024 10:26 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 PHOSPHORUS Routine 03/03/2024 10:26 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 COMPREHENSIVE METABOLIC PANEL Routine 03/03/2024 10:26 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 PROTIME-INR Routine 03/03/2024 10:26 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 MAGNESIUM Routine 03/03/2024 10:26 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 CBC WITH AUTO DIFFERENTIAL Routine 03/03/2024 10:26 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 POCT GLUCOSE DEVICE Routine 03/03/2024 8 :17 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 XR CHEST 1 VIEW IP Routine 03/03/2024 7:14 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 POCT GLUCOSE DEVICE Routine 03/03/2024 5 :47 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 POCT GLUCOSE DEVICE Routine 03/03/2024 12:17 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 POCT GLUCOSE DEVICE Routine 03/03/2024 8 :09 AM AUTO CRANE DRIVER POCT GLUCOSE DEVICE Routine 03/02/2024 11:51 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 CRITICAL CARE Routine 03/02/2024 9:58 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 Status post reverse arthroplasty of right shoulder [Z96.611] MARY (acute kidney injury) (HCC) Anxiety Acute pain of right shoulder WOUND CARE Routine 03/02/2024 9:07 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 Edema of both legs Localized swelling of left lower extremity PROTIME-INR STAT 03/02/2024 8:45 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 POCT GLUCOSE DEVICE Routine 03/02/2024 8 :01 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 EGFR Routine 03/02/2024 7:12 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 DIFFERENTIAL AUTO Routine 03/02/2024 7:1 2 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 PHOSPHORUS Routine 03/02/2024 7:12 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 COMPREHENSIVE METABOLIC PANEL Routine 03/02/2024 7:12 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 MAGNESIUM Routine 03/02/2024 7:12 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 CBC WITH AUTO DIFFERENTIAL Routine 03/02/2024 7:12 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 XR CHEST 1 VIEW Timed 03/02/2024 5:39 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 CRITICAL CARE Routine 03/02/2024 5:11 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 Closed dislocation of right shoulder, sequela POCT GLUCOSE DEVICE Routine 03/02/2024 3 :14 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 EGFR Timed 03/02/2024 2:19 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 PHOSPHORUS Timed 03/02/2024 2:19 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 MAGNESIUM Timed 03/02/2024 2:19 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 BASIC METABOLIC PANEL Timed 03/02/2024 2:19 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 POCT GLUCOSE DEVICE Routine 03/02/2024 11:11 AM AUTO CRANE DRIVER BLOOD GAS, VENOUS Routine 03/02/2024 8:1 4 AM AUTO CRANE DRIVER POCT GLUCOSE DEVICE Routine 03/02/2024 7 :19 AM AUTO CRANE DRIVER PRO B-TYPE NATRIURETIC PEPTIDE Timed 03/02/2024 5:12 AM AUTO CRANE DRIVER POCT GLUCOSE DEVICE Routine 03/02/2024 3 :09 AM AUTO CRANE DRIVER CRITICAL CARE Routine 03/01/2024 11:50 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 Closed dislocation of right shoulder, sequela MARY (acute kidney injury) (HCC) Acute postoperative pain of right shoulder POCT GLUCOSE DEVICE Routine 03/01/2024 11:14 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 EGFR Routine 03/01/2024 8:36 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 PHOSPHORUS Routine 03/01/2024 8:36 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 MAGNESIUM Routine 03/01/2024 8:36 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 DIFFERENTIAL AUTO Routine 03/01/2024 8:3 6 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 BLOOD GAS, VENOUS Timed 03/01/2024 8:3 6 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 COMPREHENSIVE METABOLIC PANEL Routine 03/01/2024 8:36 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 PROTIME-INR Routine 03/01/2024 8:36 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 CBC WITH AUTO DIFFERENTIAL Routine 03/01/2024 8:36 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 XR CHEST 1 VIEW Timed 03/01/2024 7:53 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 POCT GLUCOSE DEVICE Routine 03/01/2024 7 :11 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 TROPONIN I HIGH-SENSITIVITY 6-HOUR Timed 03/01/2024 4:21 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 BLOOD GAS, VENOUS Timed 03/01/2024 4:2 1 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 POCT GLUCOSE DEVICE Routine 03/01/2024 3 :18 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 TRANSTHORACIC ECHO (TTE) LIMITED/FOLLOW UP W LTD DOPPLER/CF W CONTRAST STAT 03/01/2024 3:04 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 TROPONIN I HIGH-SENSITIVITY 4-HOUR Timed 03/01/2024 2:26 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 TROPONIN I HIGH-SENSITIVITY 2-HOUR Timed 03/01/2024 1:21 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 US RUQ IP Routine 03/01/2024 1:10 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 CRITICAL CARE Routine 03/01/2024 12:57 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 Acute respiratory failure with hypoxia and hypercapnia (CMS/HCC) (HCC) POCT GLUCOSE DEVICE Routine 03/01/2024 11:17 AM AUTO CRANE DRIVER CRITICAL RESULT CALLBACK CARDIO CHEM Routine 03/01/2024 10:29 AM AUTO CRANE DRIVER TROPONIN I HIGH-SENSITIVITY SERIES (BASELINE, 2HR, 4HR, 6HR) Routine 03/01/2024 10:29 AM AUTO CRANE DRIVER CREATINE KINASE (CK), TOTAL Routine 03/01/2024 10:26 AM AUTO CRANE DRIVER GAMMA GT Routine 03/01/2024 10:23 AM AUTO CRANE DRIVER LIPASE Routine 03/01/2024 10:23 AM AUTO CRANE DRIVER HEPATITIS PANEL, ACUTE Routine 10:23 AM AUTO CRANE DRIVER EGFR Timed 03/01/2024 7:41 AM AUTO CRANE DRIVER BLOOD GAS, VENOUS Timed 03/01/2024 7:4 1 AM AUTO CRANE DRIVER PROTIME-INR Timed 03/01/2024 7:41 AM AUTO CRANE DRIVER COMPREHENSIVE METABOLIC PANEL Timed 03/01/2024 7:41 AM AUTO CRANE DRIVER POCT GLUCOSE DEVICE Routine 03/01/2024 7 :22 AM AUTO CRANE DRIVER MANUAL DIFFERENTIAL Routine 03/01/2024 6 :40 AM AUTO CRANE DRIVER CBC WITH AUTO DIFFERENTIAL Routine 03/01/2024 6:40 AM AUTO CRANE DRIVER POCT GLUCOSE DEVICE Routine 03/01/2024 3 :08 AM AUTO CRANE DRIVER LACTATE STAT 03/01/2024 12:11 AM AUTO CRANE DRIVER POCT GLUCOSE DEVICE Routine 02/29/2024 11:10 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 EGFR Timed 02/29/2024 10:33 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 HEMOGLOBIN AND HEMATOCRIT Routine 02/29/2024 10:33 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 BLOOD GAS, VENOUS Timed 02/29/2024 10:33 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 PROTIME-INR Timed 02/29/2024 10:33 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 COMPREHENSIVE METABOLIC PANEL Timed 02/29/2024 10:33 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 CRITICAL CARE Routine 02/29/2024 8:54 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 Closed dislocation of right shoulder, sequela POCT GLUCOSE DEVICE Routine 02/29/2024 7:13 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 XR CHEST 1 VIEW Timed 02/29/2024 6:29 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 LACTATE STAT 02/29/2024 6:01 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 BLOOD GAS, VENOUS STAT 02/29/2024 6:0 1 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 POC BLOOD GAS AND CHEMISTRIES, VENOUS Routine 02/29/2024 5:47 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 POCT GLUCOSE DEVICE Routine 02/29/2024 3 :25 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 BLOOD CULTURE Routine 02/29/2024 2:52 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 BLOOD CULTURE Routine 02/29/2024 2:52 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 BLOOD GAS, VENOUS Routine 02/29/2024 2:2 2 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 POCT GLUCOSE DEVICE Routine 02/29/2024 11:11 AM AUTO CRANE DRIVER EGFR Timed 02/29/2024 10:58 AM AUTO CRANE DRIVER BLOOD GAS, VENOUS STAT 02/29/2024 10:58 AM AUTO CRANE DRIVER BASIC METABOLIC PANEL Timed 02/29/2024 10:58 AM AUTO CRANE DRIVER EGFR Timed 02/29/2024 8:19 AM AUTO CRANE DRIVER BLOOD GAS, VENOUS Timed 02/29/2024 8:1 9 AM AUTO CRANE DRIVER PROTIME-INR Timed 02/29/2024 8:19 AM AUTO CRANE DRIVER COMPREHENSIVE METABOLIC PANEL Timed 02/29/2024 8:19 AM AUTO CRANE DRIVER CRITICAL CARE Routine 02/29/2024 7:40 AM AUTO CRANE DRIVER MARY (acute kidney injury) (HCC) Acute respiratory failure with hypoxia and hypercapnia (CMS/HCC) (HCC) POCT GLUCOSE DEVICE Routine 02/29/2024 7 :19 AM AUTO CRANE DRIVER POCT GLUCOSE DEVICE Routine 02/29/2024 3 :18 AM AUTO CRANE DRIVER CBC WITH AUTO DIFFERENTIAL Routine 02/28/2024 11:35 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 DIFFERENTIAL AUTO Routine 02/28/2024 11:35 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 EGFR Timed 02/28/2024 11:35 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 HEMOGLOBIN AND HEMATOCRIT Routine 02/28/2024 11:35 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 BLOOD GAS, VENOUS Timed 02/28/2024 11:35 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 PROTIME-INR Timed 02/28/2024 11:35 PM AUTO CRANE DRIVER COMPREHENSIVE METABOLIC PANEL Timed 02/28/2024 11:35 PM AUTO CRANE DRIVER POCT GLUCOSE DEVICE Routine 02/28/2024 11:23 PM AUTO CRANE DRIVER POCT GLUCOSE DEVICE Routine 02/28/2024 7 :25 PM AUTO CRANE DRIVER CRITICAL CARE Routine 02/28/2024 6:37 PM AUTO CRANE DRIVER Closed dislocation of right shoulder, sequela XR CHEST 1 VIEW Timed 02/28/2024 6:12 PM AUTO CRANE DRIVER POCT GLUCOSE DEVICE Routine 02/28/2024 3 :23 PM AUTO CRANE DRIVER POCT GLUCOSE DEVICE Routine 02/28/2024 11:12 AM AUTO CRANE DRIVER EGFR Timed 02/28/2024 9:35 AM AUTO CRANE DRIVER BLOOD GAS, VENOUS Timed 02/28/2024 9:3 5 AM AUTO CRANE DRIVER PROTIME-INR Timed 02/28/2024 9:35 AM AUTO CRANE DRIVER COMPREHENSIVE METABOLIC PANEL Timed 02/28/2024 9:35 AM AUTO CRANE DRIVER CRITICAL CARE Routine 02/28/2024 7:43 AM AUTO CRANE DRIVER Acute respiratory failure, unspecified whether with hypoxia or hypercapnia (HCC) Acute postoperative pain of right shoulder Acute respiratory failure with hypoxia and hypercapnia (CMS/HCC) (HCC) POCT GLUCOSE DEVICE Routine 02/28/2024 7 :32 AM AUTO CRANE DRIVER HEMOGLOBIN AND HEMATOCRIT Routine 02/28/2024 4:27 AM AUTO CRANE DRIVER POCT GLUCOSE DEVICE Routine 02/28/2024 3 :10 AM AUTO CRANE DRIVER BLOOD GAS, VENOUS Timed 02/27/2024 11:23 PM AUTO CRANE DRIVER POCT GLUCOSE DEVICE Routine 02/27/2024 11:20 PM AUTO CRANE DRIVER CRITICAL CARE Routine 02/27/2024 7:55 PM AUTO CRANE DRIVER Closed dislocation of right shoulder, sequela EGFR Timed 02/27/2024 7:51 PM AUTO CRANE DRIVER PHOSPHORUS Timed 02/27/2024 7:51 PM AUTO CRANE DRIVER PROTIME-INR Timed 02/27/2024 7:51 PM AUTO CRANE DRIVER COMPREHENSIVE METABOLIC PANEL Timed 02/27/2024 7:51 PM AUTO CRANE DRIVER POCT GLUCOSE DEVICE Routine 02/27/2024 7 :00 PM AUTO CRANE DRIVER XR CHEST 1 VIEW Timed 02/27/2024 6:19 PM AUTO CRANE DRIVER BLOOD GAS, VENOUS Routine 02/27/2024 5:5 7 PM AUTO CRANE DRIVER BLOOD GAS, VENOUS Timed 02/27/2024 3:4 3 PM AUTO CRANE DRIVER BLOOD CULTURE Routine 02/27/2024 12:52 PM AUTO CRANE DRIVER BLOOD CULTURE Routine 02/27/2024 12:52 PM AUTO CRANE DRIVER BLOOD GAS, VENOUS Routine 02/27/2024 12:19 PM AUTO CRANE DRIVER POCT GLUCOSE DEVICE Routine 02/27/2024 11:13 AM AUTO CRANE DRIVER DIFFERENTIAL AUTO STAT 02/27/2024 9:2 0 AM AUTO CRANE DRIVER CBC WITH AUTO DIFFERENTIAL STAT 02/27/2024 9:20 AM AUTO CRANE DRIVER EGFR Timed 02/27/2024 9:00 AM AUTO CRANE DRIVER BLOOD GAS, VENOUS Timed 02/27/2024 9:0 0 AM AUTO CRANE DRIVER PROTIME-INR Timed 02/27/2024 9:00 AM AUTO CRANE DRIVER COMPREHENSIVE METABOLIC PANEL Timed 02/27/2024 9:00 AM AUTO CRANE DRIVER CRITICAL CARE Routine 02/27/2024 8:54 AM AUTO CRANE DRIVER MARY (acute kidney injury) (HCC) Acute respiratory failure, unspecified whether with hypoxia or hypercapnia (HCC) Acute postoperative pain of right shoulder POCT GLUCOSE DEVICE Routine 02/27/2024 7 :10 AM AUTO CRANE DRIVER HEMOGLOBIN AND HEMATOCRIT Routine 02/27/2024 5:42 AM AUTO CRANE DRIVER POCT GLUCOSE DEVICE Routine 02/27/2024 3 :09 AM AUTO CRANE DRIVER POCT GLUCOSE DEVICE Routine 02/26/2024 11:33 PM AUTO CRANE DRIVER BLOOD GAS, VENOUS Timed 02/26/2024 11:05 PM AUTO CRANE DRIVER POCT GLUCOSE DEVICE Routine 02/26/2024 9 :35 PM AUTO CRANE DRIVER AEROBIC AND ANAEROBIC CULTURE AND GRAM STAIN Routine 02/26/2024 9:35 PM AUTO CRANE DRIVER CRITICAL CARE Routine 02/26/2024 9:25 PM AUTO CRANE DRIVER Closed dislocation of right shoulder, sequela COMPREHENSIVE METABOLIC PANEL Routine 02/26/2024 7:22 PM AUTO CRANE DRIVER EGFR Routine 02/26/2024 7:22 PM AUTO CRANE DRIVER DIFFERENTIAL AUTO Routine 02/26/2024 7:2 2 PM AUTO CRANE DRIVER BLOOD GAS, VENOUS Timed 02/26/2024 7:2 2 PM AUTO CRANE DRIVER PHOSPHORUS Routine 02/26/2024 7:22 PM AUTO CRANE DRIVER MAGNESIUM Routine 02/26/2024 7:22 PM AUTO CRANE DRIVER CBC WITH AUTO DIFFERENTIAL Routine 02/26/2024 7:22 PM AUTO CRANE DRIVER PROTIME-INR Timed 02/26/2024 7:22 PM AUTO CRANE DRIVER XR CHEST 1 VIEW IP Routine 02/26/2024 6:26 PM AUTO CRANE DRIVER BLOOD GAS, VENOUS Timed 02/26/2024 5:1 [address] CHEST PE W CONTRAST IP Routine 4:33 [address] ENTIRE LOWER EXTREMITY LEFT W CONTRAST ED Urgent/IP Urgent 02/26/2024 4:33 PM AUTO CRANE DRIVER POCT GLUCOSE DEVICE Routine 02/26/2024 3 :34 PM AUTO CRANE DRIVER US VEIN DUPLEX LOWER EXTREMITY BILATERAL COMPLETE ED Urgent/IP Urgent 02/26/2024 12:41 PM AUTO CRANE DRIVER XR CHEST 1 VIEW Critical/Life- Threatening 02/26/2024 12:35 PM AUTO CRANE DRIVER BLOOD CULTURE Routine 02/26/2024 12:35 PM AUTO CRANE DRIVER OXYHEMOGLOBIN, CENTRAL VENOUS STAT 02/26/2024 12:24 PM AUTO CRANE DRIVER BLOOD GAS, VENOUS Timed 02/26/2024 12:18 PM AUTO CRANE DRIVER ERYTHROCYTE SEDIMENTATION RATE Routine 02/26/2024 12:18 PM AUTO CRANE DRIVER CRP (ACUTE PHASE) Routine 02/26/2024 12:18 PM AUTO CRANE DRIVER POCT GLUCOSE DEVICE Routine 02/26/2024 11:45 AM AUTO CRANE DRIVER CA ARTL CATHJ/CANNULJ MNTR/TRANSFUSION SPX PRQ Routine 02/26/2024 11:24 AM AUTO CRANE DRIVER Acute respiratory failure, unspecified whether with hypoxia or hypercapnia (HCC) BLOOD CULTURE Routine 02/26/2024 11:13 AM AUTO CRANE DRIVER TRANSTHORACIC ECHO (TTE) COMPLETE W DOPPLER/CF W CONTRAST STAT 02/26/2024 10:03 AM AUTO CRANE DRIVER CA INSJ NON-TUNNELED CENTRAL VENOUS CATH AGE 5 YR/> Routine 02/26/2024 10:00 AM AUTO CRANE DRIVER Acute respiratory failure with hypoxia and hypercapnia (CMS/HCC) (HCC) POC BLOOD GAS AND CHEMISTRIES, VENOUS Routine 02/26/2024 9:56 AM AUTO CRANE DRIVER EGFR STAT 02/26/2024 9:50 AM AUTO CRANE DRIVER DIFFERENTIAL AUTO STAT 02/26/2024 9:5 0 AM AUTO CRANE DRIVER BLOOD GAS, VENOUS STAT 02/26/2024 9:5 0 AM AUTO CRANE DRIVER LACTATE STAT 02/26/2024 9:50 AM AUTO CRANE DRIVER COMPREHENSIVE METABOLIC PANEL STAT 02/26/2024 9:50 AM AUTO CRANE DRIVER CBC WITH AUTO DIFFERENTIAL STAT 02/26/2024 9:50 AM AUTO CRANE DRIVER XR CHEST 1 VIEW ED Urgent/IP Urgent 02/26/2024 9:09 AM AUTO CRANE DRIVER EGFR Timed 02/26/2024 7:52 AM AUTO CRANE DRIVER BLOOD GAS, VENOUS Routine 02/26/2024 7:5 2 AM AUTO CRANE DRIVER PROTIME-INR Timed 02/26/2024 7:52 AM AUTO CRANE DRIVER COMPREHENSIVE METABOLIC PANEL Timed 02/26/2024 7:52 AM AUTO CRANE DRIVER INFECTION PREVENTION MRSA ONLY (STAPHYLOCOCCUS AUREUS) CULTURE Routine 02/26/2024 7:52 AM AUTO CRANE DRIVER POCT GLUCOSE DEVICE Routine 02/26/2024 7 :14 AM AUTO CRANE DRIVER CRITICAL CARE Routine 02/26/2024 7:12 AM AUTO CRANE DRIVER Acute respiratory failure with hypoxia (CMS/HCC) (HCC) MARY (acute kidney injury) (HCC) BLOOD GAS, VENOUS STAT 02/26/2024 3:2 9 AM AUTO CRANE DRIVER HEMOGLOBIN AND HEMATOCRIT Routine 02/26/2024 3:29 AM AUTO CRANE DRIVER XR KNEE LEFT 1 OR 2 VIEWS IP Routine 02/26/2024 3:14 AM AUTO CRANE DRIVER CA INSJ NON-TUNNELED CENTRAL VENOUS CATH AGE 5 YR/> Routine 02/26/2024 12:23 AM AUTO CRANE DRIVER Renal insufficiency CA ARTL CATHJ/CANNULJ MNTR/TRANSFUSION SPX PRQ Routine 02/26/2024 12:21 AM AUTO CRANE DRIVER Renal insufficiency URINALYSIS, MICROSCOPIC ONLY Routine 02/25/2024 10:54 PM AUTO CRANE DRIVER BLOOD GAS, VENOUS Timed 02/25/2024 10:54 PM AUTO CRANE DRIVER URINE CULTURE Routine 02/25/2024 10:54 PM AUTO CRANE DRIVER URINALYSIS AND REFLEX TO MICROSCOPIC AND CULTURE Routine 02/25/2024 10:54 PM AUTO CRANE DRIVER CRITICAL CARE Routine 02/25/2024 7:45 PM AUTO CRANE DRIVER Closed dislocation of right shoulder, sequela COMPREHENSIVE METABOLIC PANEL Routine 02/25/2024 7:37 PM AUTO CRANE DRIVER EGFR Routine 02/25/2024 7:37 PM AUTO CRANE DRIVER PROTIME-INR Timed 02/25/2024 7:37 PM AUTO CRANE DRIVER TROPONIN I HIGH-SENSITIVITY 6-HOUR Timed 02/25/2024 7:37 PM AUTO CRANE DRIVER PHOSPHORUS Routine 02/25/2024 7:37 PM AUTO CRANE DRIVER MAGNESIUM Routine 02/25/2024 7:37 PM AUTO CRANE DRIVER CALCIUM, IONIZED Routine 02/25/2024 7:37 PM AUTO CRANE DRIVER CBC WITHOUT DIFFERENTIAL Routine 02/25/2024 7:37 PM AUTO CRANE DRIVER POC BLOOD GAS AND CHEMISTRIES, VENOUS Routine 02/25/2024 7:17 PM AUTO CRANE DRIVER POCT GLUCOSE DEVICE Routine 02/25/2024 5 :28 PM AUTO CRANE DRIVER CA INSJ NON-TUNNELED CENTRAL VENOUS CATH AGE 5 YR/> Routine 02/25/2024 5:21 PM AUTO CRANE DRIVER Renal insufficiency TROPONIN I HIGH-SENSITIVITY 2-HOUR Timed 02/25/2024 4:43 PM AUTO CRANE DRIVER ECG 12-LEAD STAT 02/25/2024 4:04 PM AUTO CRANE DRIVER POCT GLUCOSE DEVICE Routine 02/25/2024 3 :07 PM AUTO CRANE DRIVER CRITICAL CARE Routine 02/25/2024 3:02 PM AUTO CRANE DRIVER Acute hypoxemic respiratory failure (HCC) TROPONIN I HIGH-SENSITIVITY SERIES (BASELINE, 2HR, 4HR, 6HR) STAT 02/25/2024 2:55 PM AUTO CRANE DRIVER RESPIRATORY PATHOGEN PANEL Routine 02/25/2024 2:55 PM AUTO CRANE DRIVER CA ARTL CATHJ/CANNULJ MNTR/TRANSFUSION SPX PRQ Routine 02/25/2024 12:00 PM AUTO CRANE DRIVER Acute respiratory failure with hypoxia (CMS/HCC) (HCC) POCT GLUCOSE DEVICE Routine 02/25/2024 11:06 AM AUTO CRANE DRIVER LIPID PANEL STAT 02/25/2024 11:05 AM AUTO CRANE DRIVER EGFR STAT 02/25/2024 11:05 AM AUTO CRANE DRIVER T4, FREE STAT 02/25/2024 11:05 AM AUTO CRANE DRIVER APTT STAT 02/25/2024 11:05 AM AUTO CRANE DRIVER LACTATE STAT 02/25/2024 11:05 AM AUTO CRANE DRIVER MAGNESIUM STAT 02/25/2024 11:05 AM AUTO CRANE DRIVER PHOSPHORUS STAT 02/25/2024 11:05 AM AUTO CRANE DRIVER PRO B-TYPE NATRIURETIC PEPTIDE STAT 02/25/2024 11:05 AM AUTO CRANE DRIVER PROTIME-INR STAT 02/25/2024 11:05 AM AUTO CRANE DRIVER THYROID FUNCTION CASCADE STAT 02/25/2024 11:05 AM AUTO CRANE DRIVER COMPREHENSIVE METABOLIC PANEL STAT 02/25/2024 11:05 AM AUTO CRANE DRIVER CBC WITHOUT DIFFERENTIAL STAT 02/25/2024 11:05 AM AUTO CRANE DRIVER CALCIUM, IONIZED STAT 02/25/2024 11:05 AM AUTO CRANE DRIVER BLOOD GAS, ARTERIAL STAT 02/25/2024 11:05 AM AUTO CRANE DRIVER BETA-HYDROXYBUTYRATE STAT 02/25/2024 11:05 AM AUTO CRANE DRIVER BLOOD CULTURE STAT 02/25/2024 11:05 AM AUTO CRANE DRIVER BLOOD CULTURE STAT 02/25/2024 11:05 AM AUTO CRANE DRIVER POCT GLUCOSE DEVICE Routine 02/25/2024 8 :23 AM AUTO CRANE DRIVER ARTERIAL BLOOD GAS W/LACTATE Routine 02/25/2024 7:54 AM AUTO CRANE DRIVER XR CHEST 1 VIEW ED Urgent/IP Urgent 02/25/2024 7:34 AM AUTO CRANE DRIVER EGFR Routine 02/25/2024 4:49 AM AUTO CRANE DRIVER HEMOGLOBIN AND HEMATOCRIT Routine 02/25/2024 4:49 AM AUTO CRANE DRIVER BASIC METABOLIC PANEL Routine 02/25/2024 4:49 AM AUTO CRANE DRIVER EGFR STAT 02/24/2024 9:26 PM AUTO CRANE DRIVER HEMOGLOBIN AND HEMATOCRIT STAT 02/24/2024 9:26 PM AUTO CRANE DRIVER BASIC METABOLIC PANEL STAT 02/24/2024 9:26 PM AUTO CRANE DRIVER POCT GLUCOSE DEVICE Routine 02/24/2024 9 :17 PM AUTO CRANE DRIVER POCT GLUCOSE DEVICE Routine 02/24/2024 5 :15 PM AUTO CRANE DRIVER POCT GLUCOSE DEVICE Routine 02/24/2024 12:22 PM AUTO CRANE DRIVER POCT GLUCOSE DEVICE Routine 02/24/2024 9 :55 AM AUTO CRANE DRIVER EGFR Timed 02/23/2024 11:18 PM AUTO CRANE DRIVER BASIC METABOLIC PANEL Timed 02/23/2024 11:18 PM AUTO CRANE DRIVER HEMOGLOBIN AND HEMATOCRIT Timed 02/23/2024 11:18 PM AUTO CRANE DRIVER POCT GLUCOSE DEVICE Routine 02/23/2024 9 :15 PM AUTO CRANE DRIVER XR SHOULDER RIGHT 2 OR MORE VIEWS IP Routine 02/23/2024 6:49 PM AUTO CRANE DRIVER CA AN PROCEDURE PLACEHOLDER Routine 02/23/2024 5:45 PM AUTO CRANE DRIVER CA AN PROCEDURE PLACEHOLDER Routine 02/23/2024 3:57 PM AUTO CRANE DRIVER CA AN PROCEDURE PLACEHOLDER Routine 02/23/2024 3:37 PM AUTO CRANE DRIVER CA AN ELECTIVE ENDOTRACHEAL AIRWAY Routine 02/23/2024 3:37 PM AUTO CRANE DRIVER CA AN PROCEDURE PLACEHOLDER Routine 02/23/2024 2:49 PM AUTO CRANE DRIVER CA AN PROCEDURE PLACEHOLDER Routine 02/23/2024 2:45 PM AUTO CRANE DRIVER BW IP ANE LDA PERIPHERAL NERVE CATHETER Routine 02/23/2024 2:45 PM AUTO CRANE DRIVER ARTHROPLASTY SHOULDER - REVERSE TOTAL 02/23/2024 2:44 PM AUTO CRANE DRIVER Closed dislocation of right shoulder, initial encounter Fracture of humeral head, closed, right, with routine healing, subsequent encounter Special Needs Beach Chair with Trimano (patient is >350lbs), Tornier Perform with Fracture Stem Back-up, Ice Machine, Breg Sling Shot with Pillow B CHECK SAMPLE STAT 02/23/2024 12:52 PM AUTO CRANE DRIVER EGFR Routine 02/15/2024 9:06 AM AUTO CRANE DRIVER Closed dislocation of right shoulder, initial encounter Fracture of humeral head, closed, right, with routine healing, subsequent encounter TYPE AND SCREEN 14 DAY Routine 9:06 AM AUTO CRANE DRIVER Preoperative testing VITAMIN D 25 HYDROXY Routine 02/15/2024 9:06 AM AUTO CRANE DRIVER Closed dislocation of right shoulder, initial encounter Fracture of humeral head, closed, right, with routine healing, subsequent encounter COMPREHENSIVE METABOLIC PANEL Routine 02/15/2024 9:06 AM AUTO CRANE DRIVER Closed dislocation of right shoulder, initial encounter Fracture of humeral head, closed, right, with routine healing, subsequent encounter CBC WITHOUT DIFFERENTIAL Routine 02/15/2024 9:06 AM AUTO CRANE DRIVER Preoperative testing ECG 12-LEAD Routine 02/15/2024 8:38 AM AUTO CRANE DRIVER Preoperative testing MRI SHOULDER RIGHT WO CONTRAST Schedule Routine, Read Routine (OP Routine) 01/31/2024 10:42 AM AUTO CRANE DRIVER Anterior dislocation of right humerus, initial encounter Right shoulder pain, unspecified chronicity RADIOLOGY EVENT Schedule Routine, Read Routine (OP Routine) 01/31/2024 9:11 AM AUTO CRANE DRIVER Anterior dislocation of right humerus, initial encounter Right shoulder pain, unspecified chronicity CT SHOULDER RIGHT WO CONTRAST AND 3D RECONS Schedule Routine, Read Routine (OP Routine) 01/31/2024 9:11 AM AUTO CRANE DRIVER Anterior dislocation of right humerus, initial encounter Right shoulder pain, unspecified chronicity HM MAMMOGRAPHY Routine 01/16/2021 from Last 3 Months or Most Recently Relevant to Health Maintenance Results * Electrocardiogram Report (04/29/2024 3:06 PM AUTO CRANE DRIVER) us Karie Rodríguez MD ECG ORDERABLES Nicole l Result * POCT lipid panel (04/29/2024 12:42 PM AUTO CRANE DRIVER) HDL, POC 60 mg/dL Triglycerides, POC 452 mg/dL LDL Cholesterol POC 60 mg/dL Chol/HDL Ratio, POC 52.6 Non-HDL Cholesterol, POC 143 mg/dL Cholesterol Total, POC 203 mg/dL Capillary blood 04/29/2024 1 2:42 PM AUTO CRANE DRIVER Karie Rodríguez MD POINT OF CARE TEST O RDERABLES Final Result * eGFR (04/08/2024 2:35 AM AUTO CRANE DRIVER) eGFR >90 >=60 mL/min/1. 73 m2 Comment: [...] last reviewed 2021. Blood 04/08/2024 2:35 AM AUTO CRANE DRIVER 04/08/2024 3:03 AM AUTO CRANE DRIVER us Florentino Jeronimo NP LAB BLOOD ORDERABLES Fin al Result [facility] [address] [facility] Department [place] [address] * Magnesium (04/08/2024 2:35 AM AUTO CRANE DRIVER) Pathologist [facility] Magnesium 1.6 1.4 - 2.5 mg/dL Blood 04/08/2024 2:35 AM AUTO CRANE DRIVER 04/08/2024 3:03 AM AUTO CRANE DRIVER Chaitanya Robertson MD LAB BLOOD ORDERABLES Final Result [place] [address] [place] [address] Department [place] [address] * (ABNORMAL) Basic metabolic panel (04/08/2024 2:35 AM AUTO CRANE DRIVER) [facility] Sodium 137 135 - 145 mmol/L Potassium, pl 4.1 3.3 - 4.9 mmol/L [facility] Chloride 100 97 - 110 mmol/L [facility] CO2 30 22 - 32 mmol/L [facility] Anion gap 7 2 - 15 mmol/L [facility] BUN 11 6 - 25 mg/dL [facility] Creatinine 0.58(L) 0.60 - 1.10 mg/dL [facility] Glucose 83 70 - 199 mg/dL [facility] Comment: Interpretive Data Fasting glucose >/= 126 [...] 2022. Calcium 8.6 8.5 - 10.3 mg/dL [facility] Blood 04/08/2024 2:35 AM AUTO CRANE DRIVER 04/08/2024 3:03 AM AUTO CRANE DRIVER Florentino Jeronimo NP LAB BLOOD ORDERABLES Fin al Result Performing Organization Address City/[facility]/ZIP Co de Phone Number [place] [address] [facility] [place] [place] [address] * eGFR (04/07/2024 2:59 AM AUTO CRANE DRIVER) [facility] eGFR >90 >=60 mL/min/1. 73 m2 [...] last reviewed 2021. Blood 04/07/2024 2:59 AM AUTO CRANE DRIVER 04/07/2024 3:37 AM AUTO CRANE DRIVER us Florentino Meena Jeronimo MEDICAL TECHNICAL WRITER LAB BLOOD ORDERABLES Fin al Result [place] [id number] [facility] Department [place] [address] * (ABNORMAL) Basic metabolic panel (04/07/2024 2:59 AM AUTO CRANE DRIVER) Sodium 137 135 - 145 mmol/L Potassium, pl 3.6 3.3 - 4.9 mmol/L [facility] Chloride 102 97 - 110 mmol/L [facility] CO2 28 22 - 32 mmol/L [facility] Anion gap 7 2 - 15 mmol/L [facility] BUN 10 6 - 25 mg/dL [facility] Creatinine 0.56(L) 0.60 - 1.10 mg/dL [facility] Glucose 93 70 - 199 mg/dL [facility] Comment: Interpretive Data Fasting glucose >/= 126 [...] 2022. Calcium 8.5 8.5 - 10.3 mg/dL [facility] Blood 04/07/2024 2:59 AM AUTO CRANE DRIVER 04/07/2024 3:37 AM AUTO CRANE DRIVER Florentino Meena Jeronimo MEDICAL TECHNICAL WRITER LAB BLOOD ORDERABLES Fin al Result Performing Organization Address [facility]/ZIP Co de Phone Number [address] [place] [address] * Sodium level (04/06/2024 11:34 AM AUTO CRANE DRIVER) Sodium 138 135 - 145 mmol/L Blood 04/06/2024 11:3 4 AM AUTO CRANE DRIVER 04/06/2024 11:53 AM AUTO CRANE DRIVER Yadira Aurora Cancino MD LAB BLOOD ORDERABLES Nicole l Result Performing Organization Address [facility] Co de Phone Number [address] [place] [address] * eGFR (04/06/2024 4:02 AM AUTO CRANE DRIVER) eGFR >90 >=60 mL/min/1. 73 m2 Comment: [...] last reviewed 2021. Blood 04/06/2024 4:02 AM AUTO CRANE DRIVER 04/06/2024 4:15 AM AUTO CRANE DRIVER us Florentino Meena Jeronimo NP LAB BLOOD ORDERABLES Fin al Result [facility] [address] [facility] Department [place] [address] * Differential, auto (04/06/2024 4:02 AM AUTO CRANE DRIVER) Neutrophil abs 2.8 1.5 - 6.5 K/cumm Imm gran abs 0.0 0.0 - 0.1 K/cumm [facility] Lymphocyte abs 1.8 0.8 - 3.3 K/cumm [facility] Monocyte abs 0.6 0.2 - 0.8 K/cumm [facility] Eosinophil abs 0.1 0.0 - 0.5 K/cumm [facility] Basophil abs 0.0 0.0 - 0.1 K/cumm [facility] Neutrophil pct 52.1 % [facility] Comment: Interpretive Data Percent cell count reference ranges are not reported, since discordance with absolute values may lead to misinterpretation of CBC data. Current Interpretive Data was last revised on 2017. Imm gran pct 0.6 % [facility] Comment: Interpretive Data Percent cell count reference ranges are not reported, since discordance with absolute values may lead to misinterpretation of CBC data. Current Interpretive Data was last revised on 2017. Lymphocyte pct 34.7 % [facility] Comment: Interpretive Data Percent cell count reference ranges are not reported, since discordance with absolute values may lead to misinterpretation of CBC data. Current Interpretive Data was last revised on 2017. Monocyte pct 10.9 % [facility] Comment: Interpretive Data Percent cell count reference ranges are not reported, since discordance with absolute values may lead to misinterpretation of CBC data. Current Interpretive Data was last revised on 2017. Eosinophil pct 1.1 % [facility] Comment: Interpretive Data Percent cell count reference ranges are not reported, since discordance with absolute values may lead to misinterpretation of CBC data. Current Interpretive Data was last revised on 2017. Basophil pct 0.6 % [facility] Comment: Interpretive Data Percent cell count reference ranges are not reported, since discordance with absolute values may lead to misinterpretation of CBC data. Current Interpretive Data was last revised on 2017. Blood 04/06/2024 4:02 AM AUTO CRANE DRIVER 04/06/2024 4:15 AM AUTO CRANE DRIVER us Savage Rutherford MD LAB BLOOD ORDERABLES Final R esult [facility] [address] [facility] Department [place] [address] * (ABNORMAL) CBC with auto differential (04/06/2024 4:02 AM AUTO CRANE DRIVER) WBC 5.3 3.8 - 9.9 K/cumm Hgb 8.2(L) 11.9 - 15.5 g/dL [facility] Hct 26.6(L) 35.6 - 45.5 % [facility] Plt 283 150 - 400 K/cumm [facility] MPV 9.1 9.1 - 12.3 fL [facility] RBC 2.55(L) 3.90 - 5.20 M/cumm [facility] MCV 104.3(H) 81.3 - 96.4 fL [facility] MCH 32.2 27.1 - 33.3 pg [facility] MCHC 30.8(L) 32.3 - 35.7 g/dL [facility] RDW CV 15.0(H) 11.1 - 14.9 % [facility] RDW SD 57.8(H) 35.7 - 48.1 fL [facility] NRBC abs 0.00 0.00 - 0.01 K/cumm [facility] Blood 04/06/2024 4:02 AM AUTO CRANE DRIVER 04/06/2024 4:15 AM AUTO CRANE DRIVER Savage Rutherford MD LAB BLOOD ORDERABLES Final R esult Performing Organization Address City/[facility]/ZIP Co de Phone Number [place] [address] [place] [address] * (ABNORMAL) Basic metabolic panel (04/06/2024 4:02 AM AUTO CRANE DRIVER) [facility] Sodium 132(L) 135 - 145 mmol/L Potassium, pl 3.5 3.3 - 4.9 mmol/L [facility] Chloride 99 97 - 110 mmol/L [facility] CO2 26 22 - 32 mmol/L [facility] Anion gap 7 2 - 15 mmol/L [facility] BUN 9 6 - 25 mg/dL [facility] Creatinine 0.54(L) 0.60 - 1.10 mg/dL [facility] Glucose 100 70 - 199 mg/dL [facility] Comment: Interpretive Data Fasting glucose >/= 126 [...] 2022. Calcium 8.2(L) 8.5 - 10.3 mg/dL [facility] Blood 04/06/2024 4:02 AM AUTO CRANE DRIVER 04/06/2024 4:15 AM AUTO CRANE DRIVER Florentino Jeronimo NP LAB BLOOD ORDERABLES Fin al Result Performing Organization Address City/[facility]/ZIP Co de Phone Number [place] [address] [place] [address] * eGFR (04/05/2024 4:59 AM AUTO CRANE DRIVER) [facility] eGFR >90 >=60 mL/min/1. 73 m2 [...] last reviewed 2021. Blood 04/05/2024 4:59 AM AUTO CRANE DRIVER 04/05/2024 5:30 AM AUTO CRANE DRIVER us Florentino Meena Jeronimo MEDICAL TECHNICAL WRITER LAB BLOOD ORDERABLES Fin al Result [place] [id number] [facility] Department of Laboratories [place], [place] [id number] * Differential, auto (04/05/2024 4:59 AM AUTO CRANE DRIVER) Neutrophil abs 3.9 1.5 - 6.5 K/cumm Imm gran abs 0.0 0.0 - 0.1 K/cumm [facility] Lymphocyte abs 1.7 0.8 - 3.3 K/cumm [facility] Monocyte abs 0.6 0.2 - 0.8 K/cumm [facility] Eosinophil abs 0.1 0.0 - 0.5 K/cumm [facility] Basophil abs 0.0 0.0 - 0.1 K/cumm [facility] Neutrophil pct 61.8 % [facility] Comment: Interpretive Data Percent cell count reference ranges are not reported, since discordance with absolute values may lead to misinterpretation of CBC data. Current Interpretive Data was last revised on 2017. Imm gran pct 0.6 % [facility] Comment: Interpretive Data Percent cell count reference ranges are not reported, since discordance with absolute values may lead to misinterpretation of CBC data. Current Interpretive Data was last revised on 2017. Lymphocyte pct 26.9 % [facility] Comment: Interpretive Data Percent cell count reference ranges are not reported, since discordance with absolute values may lead to misinterpretation of CBC data. Current Interpretive Data was last revised on 2017. Monocyte pct 9.4 % [facility] Comment: Interpretive Data Percent cell count reference ranges are not reported, since discordance with absolute values may lead to misinterpretation of CBC data. Current Interpretive Data was last revised on 2017. Eosinophil pct 0.8 % [facility] Comment: Interpretive Data Percent cell count reference ranges are not reported, since discordance with absolute values may lead to misinterpretation of CBC data. Current Interpretive Data was last revised on 2017. Basophil pct 0.5 % [facility] Comment: Interpretive Data Percent cell count reference ranges are not reported, since discordance with absolute values may lead to misinterpretation of CBC data. Current Interpretive Data was last revised on 2017. Blood 04/05/2024 4:59 AM AUTO CRANE DRIVER 04/05/2024 5:30 AM AUTO CRANE DRIVER us Savage Rutherford MD LAB BLOOD ORDERABLES Final R esult [facility] [address] [facility] Department [place] [address] * (ABNORMAL) CBC with auto differential (04/05/2024 4:59 AM AUTO CRANE DRIVER) WBC 6.3 3.8 - 9.9 K/cumm Hgb 8.3(L) 11.9 - 15.5 g/dL [facility] Hct 26.6(L) 35.6 - 45.5 % [facility] Plt 287 150 - 400 K/cumm [facility] MPV 9.1 9.1 - 12.3 fL [facility] RBC 2.53(L) 3.90 - 5.20 M/cumm [facility] MCV 105.1(H) 81.3 - 96.4 fL [facility] MCH 32.8 27.1 - 33.3 pg [facility] MCHC 31.2(L) 32.3 - 35.7 g/dL [facility] RDW CV 14.9 11.1 - 14.9 % [facility] RDW SD 57.0(H) 35.7 - 48.1 fL [facility] NRBC abs 0.00 0.00 - 0.01 K/cumm [facility] Blood 04/05/2024 4:59 AM AUTO CRANE DRIVER 04/05/2024 5:30 AM AUTO CRANE DRIVER us Savage Rutherford MD LAB BLOOD ORDERABLES Final R esult [facility] [address] [facility] Department [place] [address] * (ABNORMAL) Basic metabolic panel (04/05/2024 4:59 AM AUTO CRANE DRIVER) Sodium 137 135 - 145 mmol/L Potassium, pl 3.3 3.3 - 4.9 mmol/L [facility] Chloride 103 97 - 110 mmol/L [facility] CO2 25 22 - 32 mmol/L [facility] Anion gap 9 2 - 15 mmol/L [facility] BUN 10 6 - 25 mg/dL [facility] Creatinine 0.52(L) 0.60 - 1.10 mg/dL [facility] Glucose 118 70 - 199 mg/dL [facility] Comment: Interpretive Data Fasting glucose >/= 126 [...] classification and Diagnosis of Diabetes Diabetes Care 2022; 46: [id number]. Current interpretive data was last revised 2022. Calcium 8.7 8.5 - 10.3 mg/dL [facility] Blood 04/05/2024 4:59 AM [employer] DRIVER 04/05/2024 5:30 AM [employer] CRANE DRIVER Florentino Meena Jeronimo MEDICAL TECHNICAL WRITER LAB BLOOD ORDERABLES Fin al Result [facility] [address] [place] [address] * (ABNORMAL) Vancomycin level trough (04/04/2024 11:04 AM AUTO CRANE DRIVER) Vancomycin trough 22.5(H) 10.0 - 20.0 mcg/mL Blood 04/04/2024 11:0 4 AM AUT[employer] CRANE DRIVER 04/04/2024 11:10 AM [employer] DRIVER [facility] MEDICAL TECHNICAL WRITER LAB BLOOD ORDERABLES Fin al Result Performing Organization Address [facility] Co de Phone Number MADELEINE [address] [address] * eGFR (04/04/2024 2:48 AM AUTO CRANE DRIVER) eGFR >90 >=60 mL/min/1. 73 m2 Comment: [...] last reviewed 2021. Blood 04/04/2024 2:48 AM AUTO CRANE DRIVER 04/04/2024 3:26 AM AUTO CRANE DRIVER Savage Rutherford MD LAB BLOOD ORDERABLES Final R esult [facility] [address] [facility] Department [place] [address] * Differential, auto (04/04/2024 2:48 AM AUTO CRANE DRIVER) Neutrophil abs 4.0 1.5 - 6.5 K/cumm Imm gran abs 0.1 0.0 - 0.1 K/cumm [facility] Lymphocyte abs 2.2 0.8 - 3.3 K/cumm [facility] Monocyte abs 0.8 0.2 - 0.8 K/cumm [facility] Eosinophil abs 0.1 0.0 - 0.5 K/cumm [facility] Basophil abs 0.0 0.0 - 0.1 K/cumm [facility] Neutrophil pct 56.5 % [facility] Comment: Interpretive Data Percent cell count reference ranges are not reported, since discordance with absolute values may lead to misinterpretation of CBC data. Current Interpretive Data was last revised on 2017. Imm gran pct 1.0 % [facility] Comment: Interpretive Data Percent cell count reference ranges are not reported, since discordance with absolute values may lead to misinterpretation of CBC data. Current Interpretive Data was last revised on 2017. Lymphocyte pct 30.7 % [facility] Comment: Interpretive Data Percent cell count reference ranges are not reported, since discordance with absolute values may lead to misinterpretation of CBC data. Current Interpretive Data was last revised on 2017. Monocyte pct 10.6 % [facility] Comment: Interpretive Data Percent cell count reference ranges are not reported, since discordance with absolute values may lead to misinterpretation of CBC data. Current Interpretive Data was last revised on 2017. Eosinophil pct 0.8 % [facility] Comment: Interpretive Data Percent cell count reference ranges are not reported, since discordance with absolute values may lead to misinterpretation of CBC data. Current Interpretive Data was last revised on 2017. Basophil pct 0.4 % [facility] Comment: Interpretive Data Percent cell count reference ranges are not reported, since discordance with absolute values may lead to misinterpretation of CBC data. Current Interpretive Data was last revised on 2017. Blood 04/04/2024 2:48 AM AUTO CRANE DRIVER 04/04/2024 3:26 AM AUTO CRANE DRIVER Chaitanya Robertson MD LAB BLOOD ORDERABLES Final Result Performing Organization Address [facility] Co de Phone Number MADELEINE [address] [place] [address] * (ABNORMAL) CBC with auto differential (04/04/2024 2:48 AM AUTO CRANE DRIVER) [facility] WBC 7.1 3.8 - 9.9 K/cumm Hgb 8.0(L) 11.9 - 15.5 g/dL [facility] Hct 25.4(L) 35.6 - 45.5 % [facility] Plt 287 150 - 400 K/cumm [facility] MPV 9.2 9.1 - 12.3 fL [facility] RBC 2.44(L) 3.90 - 5.20 M/cumm [facility] MCV 104.1(H) 81.3 - 96.4 fL [facility] MCH 32.8 27.1 - 33.3 pg [facility] MCHC 31.5(L) 32.3 - 35.7 g/dL [facility] RDW CV 14.7 11.1 - 14.9 % [facility] RDW SD 55.8(H) 35.7 - 48.1 fL [facility] NRBC abs 0.00 0.00 - 0.01 K/cumm [facility] Blood 04/04/2024 2:48 AM AUTO CRANE DRIVER 04/04/2024 3:26 AM AUTO CRANE DRIVER Chaitanya Robertson MD LAB BLOOD ORDERABLES Final Result Performing Organization Address City/[facility]/ZIP Co de Phone Number MADELEINE [address] [place] [address] * (ABNORMAL) Comprehensive metabolic panel (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 Calcium 8.4(L) 8.5 - 10.3 mg/dL [facility] Bilirubin, total 0.5 0.1 - 1.2 mg/dL [facility] Protein, pl 5.9(L) 6.5 - 8.5 g/dL [facility] Albumin 2.5(L) 3.5 - 5.0 g/dL [facility] Alk phos 241(H) 40 - 130 Units/L [facility] ALT 12 7 - 45 Units/L [facility] AST 23 10 - 45 Units/L [facility] Blood 04/04/2024 2:48 AM AUTO CRANE DRIVER 04/04/2024 3:26 AM AUTO CRANE DRIVER us Savage Rutherford MD LAB BLOOD ORDERABLES Final R esult [facility] [address] [facility] Department [place] [address] * POCT glucose (04/03/2024 4:41 PM AUTO CRANE DRIVER) Glucose, POC 154 70 - 199 mg/dL Glucose comment 1 Use This Result [facility] Glucose comment 2 RN/MD Notified [facility] Blood 04/03/2024 4:41 PM AUTO CRANE DRIVER 04/03/2024 4:41 PM AUTO CRANE DRIVER Chaitanya Robertson MD LAB POCT ORDERABLES - DEVIC E Final Result Performing Organization Address City/[facility]/ZIP Co de Phone Number MADELEINE [address] [place] [address] * US Vein Duplex Lower Extremity Bilateral Complete (04/03/2024 10:00 AM AUTO CRANE DRIVER) Anatomical Region Laterality Modality Vascular Bilateral Ultrasound 04/03/2024 Narrative 04/04/2024 11:20 AM AUTO CRANE DRIVER [email or web address] Job ID: [id number] [email or web address] Document ID: [id number] Dictated date/time: [id number] LOWER EXTREMITY VENOUS DUPLEX REASON FOR EXAM [...] right lower extremity. Job ID/Internal Job ID: [id number] Bing French MD [facility] US PROCEDURES Nicole l Result * Lactate (04/03/2024 7:19 AM AUTO CRANE DRIVER) Lactate 1.2 0.7 - 2.0 mmol/L Blood 04/03/2024 7:19 AM AUTO CRANE DRIVER 04/03/2024 7:26 AM AUTO CRANE DRIVER Florentino Jeronimo NP LAB BLOOD ORDERABLES Fin al Result Performing Organization Address City/[facility]/ZIP Co de Phone Number MADELEINE [address] Department [place] [address] * eGFR (04/03/2024 7:19 AM AUTO CRANE DRIVER) [facility] eGFR >90 >=60 mL/min/1. 73 m2 [...] last reviewed 2021. Blood 04/03/2024 7:19 AM AUTO CRANE DRIVER 04/03/2024 7:23 AM AUTO CRANE DRIVER us Florentino Meena Jeronimo NP LAB BLOOD ORDERABLES Fin al Result [place] [address] [facility] Department [place] [address] * Differential, auto (04/03/2024 7:19 AM AUTO CRANE DRIVER) [facility] Neutrophil abs 5.1 1.5 - 6.5 K/cumm Imm gran abs 0.1 0.0 - 0.1 K/cumm [facility] Lymphocyte abs 1.8 0.8 - 3.3 K/cumm [facility] Monocyte abs 0.8 0.2 - 0.8 K/cumm [facility] Eosinophil abs 0.1 0.0 - 0.5 K/cumm [facility] Basophil abs 0.0 0.0 - 0.1 K/cumm [facility] Neutrophil pct 64.7 % [facility] Comment: Interpretive Data Percent cell count reference ranges are not reported, since discordance with absolute values may lead to misinterpretation of CBC data. Current Interpretive Data was last revised on 2017. Imm gran pct 1.1 % [facility] Comment: Interpretive Data Percent cell count reference ranges are not reported, since discordance with absolute values may lead to misinterpretation of CBC data. Current Interpretive Data was last revised on 2017. Lymphocyte pct 22.4 % [facility] Comment: Interpretive Data Percent cell count reference ranges are not reported, since discordance with absolute values may lead to misinterpretation of CBC data. Current Interpretive Data was last revised on 2017. Monocyte pct 10.5 % [facility] Comment: Interpretive Data Percent cell count reference ranges are not reported, since discordance with absolute values may lead to misinterpretation of CBC data. Current Interpretive Data was last revised on 2017. Eosinophil pct 0.8 % [facility] Comment: Interpretive Data Percent cell count reference ranges are not reported, since discordance with absolute values may lead to misinterpretation of CBC data. Current Interpretive Data was last revised on 2017. Basophil pct 0.5 % [facility] Comment: Interpretive Data Percent cell count reference ranges are not reported, since discordance with absolute values may lead to misinterpretation of CBC data. Current Interpretive Data was last revised on 2017. Blood 04/03/2024 7:19 AM AUTO CRANE DRIVER 04/03/2024 7:23 AM AUTO CRANE DRIVER us Florentino Meena Jeronimo MEDICAL TECHNICAL WRITER LAB BLOOD ORDERABLES Fin al Result [place] [address] [facility] Department [place] [address] * (ABNORMAL) Pro B-type natriuretic peptide (04/03/2024 7:19 AM AUTO CRANE DRIVER) NT-proBNP 1,491(H) <=300 pg/mL Comment: Interpretive Comments: [...] Revised Date: 2017. Blood 04/03/2024 7:19 AM AUTO CRANE DRIVER 04/03/2024 7:23 AM AUTO CRANE DRIVER us Florentino [facility]erSoldo [facility] MEDICAL TECHNICAL WRITER LAB BLOOD ORDERABLES Fin al Result Performing Organization Address [facility] Co de Phone Number [place] [address] [facility] Department [place] [address] * (ABNORMAL) Thyroid Function [place] (04/03/2024 7:19 AM AUTO CRANE DRIVER) TSH 4.62(H) 0.30 - 4.20 mcIUnit/mL Blood 04/03/2024 7:19 AM AUTO CRANE DRIVER 04/03/2024 7:23 AM AUTO CRANE DRIVER [facility] MEDICAL TECHNICAL WRITER LAB BLOOD ORDERABLES Fin al Result Performing Organization Address [facility]/ZIP Co de Phone Number [facility] [address] [facility] [place] [place] [address] * (ABNORMAL) Iron profile w/ IBC (04/03/2024 7:19 AM AUTO CRANE DRIVER) [facility] Iron 36 35 - 145 mcg/dL TIBC 179(L) 250 - 400 mcg/dL [facility] Transferrin saturation 20 20 - 50 % [facility] Blood 04/03/2024 7:19 AM AUTO CRANE DRIVER 04/03/2024 7:23 AM AUTO CRANE DRIVER Florentino Tabernero Phani MEDICAL TECHNICAL WRITER LAB BLOOD ORDERABLES Fin al Result [place] [facility] [place] [address] * (ABNORMAL) CBC with auto differential (04/03/2024 7:19 AM AUTO CRANE DRIVER) [facility] WBC 7.9 3.8 - 9.9 K/cumm Hgb 8.4(L) 11.9 - 15.5 g/dL [facility] Hct 26.5(L) 35.6 - 45.5 % [facility] Plt 281 150 - 400 K/cumm [facility] MPV 9.4 9.1 - 12.3 fL [facility] RBC 2.53(L) 3.90 - 5.20 M/cumm [facility] MCV 104.7(H) 81.3 - 96.4 fL [facility] MCH 33.2 27.1 - 33.3 pg [facility] MCHC 31.7(L) 32.3 - 35.7 g/dL [facility] RDW CV 14.5 11.1 - 14.9 % [facility] RDW SD 55.3(H) 35.7 - 48.1 fL [facility] NRBC abs 0.00 0.00 - 0.01 K/cumm [facility] Blood 04/03/2024 7:19 AM AUTO CRANE DRIVER 04/03/2024 7:23 AM AUTO CRANE DRIVER us Florentino Tabernero Rufin MEDICAL TECHNICAL WRITER LAB BLOOD ORDERABLES Fin al Result Performing Organization Address [facility] Co de Phone Number KATE[address] [address] * (ABNORMAL) Erythrocyte sedimentation rate (04/03/2024 7:19 AM AUTO CRANE DRIVER) Pathologist [facility] Erythrocyte sedimentation rate 60(H) 1 - 30 mm/hr Comment:Testing performed by : [facility], [address] [place] [address], [facility], [address] Blood 04/03/2024 7:19 AM AUTO CRANE DRIVER 04/03/2024 7:23 AM AUTO CRANE DRIVER Florentino Tabcorbin Jeronimo MEDICAL TECHNICAL WRITER LAB BLOOD ORDERABLES Fin al Result Performing Organization Address [facility] Co de Phone Number KATE[address] [address] * (ABNORMAL) CRP (acute phase) (04/03/2024 7:19 AM AUTO CRANE DRIVER) Pathologist [facility] CRP 203.0(H) <=10.0 mg/L Blood 04/03/2024 7:19 AM AUTO CRANE DRIVER 04/03/2024 7:23 AM AUTO CRANE DRIVER Florentino Wantrcorbin Jeronimo MEDICAL TECHNICAL WRITER LAB BLOOD ORDERABLES Fin al Result Performing Organization Address [facility] Co de Phone Number [address] [address] * T4, free (04/03/2024 7:19 AM AUTO CRANE DRIVER) Pathologist [facility] Free T4 0.92 0.90 - 1.70 ng/dL Blood 04/03/2024 7:19 AM AUTO CRANE DRIVER 04/03/2024 7:23 AM AUTO CRANE DRIVER Narrative [facility] - 04/03/2024 9:03 AM AUTO CRANE DRIVER This test was reflexed from a TSH result. Florentino Tabernero Phani MEDICAL TECHNICAL WRITER LAB BLOOD ORDERABLES Fin al Result Performing Organization Address [facility] Co de Phone Number MADELEINE [address] [address] * Phosphorus (04/03/2024 7:19 AM AUTO CRANE DRIVER) Phosphorus, pl 4.3 2.3 - 4.5 mg/dL Blood 04/03/2024 7:19 AM AUTO CRANE DRIVER 04/03/2024 7:23 AM AUTO CRANE DRIVER [facility] Tabernero Rufin MEDICAL TECHNICAL WRITER LAB BLOOD ORDERABLES Fin al Result Performing Organization Address [facility] Co de Phone Number KATE[address] [address] * Magnesium (04/03/2024 7:19 AM AUTO CRANE DRIVER) [facility] Magnesium 1.4 1.4 - 2.5 mg/dL Blood 04/03/2024 7:19 AM AUTO CRANE DRIVER 04/03/2024 7:23 AM AUTO CRANE DRIVER [facility] Tabernero [facility] MEDICAL TECHNICAL WRITER LAB BLOOD ORDERABLES Fin al Result Performing Organization Address [facility] de Phone Number [address] [address] * (ABNORMAL) Hemoglobin A1c (04/03/2024 7:19 AM AUTO CRANE DRIVER) [facility] Hgb A1C 5.9(H) 4.0 - 5.6 % Estimated Average Glucose 123 mg/dL [facility] Comment: The ADA recommends reporting an estimated Average Glucose (eAG) with all Hemoglobin A1c results using the equation derived from a study of 507 normal and diabetic adults. Minority populations were underrepresented and children were not included. (Diabetes Care 31:4439-4993, 2008). The eAG is not equivalent to a fasting glucose. Blood 04/03/2024 7:19 AM AUTO CRANE DRIVER 04/03/2024 7:23 AM AUTO CRANE DRIVER Florentino Tabernero Rufin MEDICAL TECHNICAL WRITER LAB BLOOD ORDERABLES Fin al Result Performing Organization Address [facility] Co de Phone Number KATE[address] [place] [address] * Folate (04/03/2024 7:19 AM AUTO CRANE DRIVER) [facility] Folic acid >20.0 >=5.0 ng/mL Blood 04/03/2024 7:19 AM AUTO CRANE DRIVER 04/03/2024 7:23 AM AUTO CRANE DRIVER Florentino Tabernero Rufin MEDICAL TECHNICAL WRITER LAB BLOOD ORDERABLES Fin al Result Performing Organization Address [facility] Co de Phone Number KATE[address] [place] [address] * (ABNORMAL) Ferritin (04/03/2024 7:19 AM AUTO CRANE DRIVER) [facility] Ferritin 275(H) 15 - 150 ng/mL Blood 04/03/2024 7:19 AM AUTO CRANE DRIVER 04/03/2024 7:23 AM AUTO CRANE DRIVER Florentino Wantrernero Rufin MEDICAL TECHNICAL WRITER LAB BLOOD ORDERABLES Fin al Result Performing Organization Address [facility] de Phone Number KATE[address] [place] [address] * Vitamin B12 (04/03/2024 7:19 AM AUTO CRANE DRIVER) [facility] Vitamin B12 850 230 - 1,250 pg/mL Blood 04/03/2024 7:19 AM AUTO CRANE DRIVER 04/03/2024 7:23 AM AUTO CRANE DRIVER Florentino Wantrernero Rufin MEDICAL TECHNICAL WRITER LAB BLOOD ORDERABLES Fin al Result Performing Organization Address [facility] Co de Phone Number [address] [place] [address] * (ABNORMAL) Lipid panel (04/03/2024 7:19 AM AUTO CRANE DRIVER) [facility] Cholesterol 121 30 - 199 mg/dL Comment: [...] on 2017. HDL 38(L) >=40 mg/dL [place] Comment: Interpretive Data Ages < [...] 2017. LDL, calculated 58 <=129 mg/dL [place] Comment: Interpretive Data Ages < [...] revised on 2023. Non-HDL Cholesterol 83 mg/dL [facility] Comment: Interpretive Data Ages < or = [...] last revised on 2017. Chol/HDL ratio 3 [facility] Blood 04/03/2024 7:19 AM AUTO CRANE DRIVER 04/03/2024 7:23 AM AUTO CRANE DRIVER us Florentino Meena Jeronimo MEDICAL TECHNICAL WRITER LAB BLOOD ORDERABLES Fin al Result [place] [address] [facility] Department [place] [address] * Basic metabolic panel (04/03/2024 7:19 AM AUTO CRANE DRIVER) Sodium 136 135 - 145 mmol/L Potassium, pl 3.6 3.3 - 4.9 mmol/L [facility] Chloride 104 97 - 110 mmol/L [facility] CO2 22 22 - 32 mmol/L [facility] Anion gap 10 2 - 15 mmol/L [facility] BUN 20 6 - 25 mg/dL [facility] Creatinine 0.65 0.60 - 1.10 mg/dL [facility] Glucose 102 70 - 199 mg/dL [facility] Comment: Interpretive Data Fasting glucose >/= 126 [...] 2022. Calcium 8.7 8.5 - 10.3 mg/dL [facility] Blood 04/03/2024 7:19 AM AUTO CRANE DRIVER 04/03/2024 7:23 AM AUTO CRANE DRIVER Florentino Jeronimo NP LAB BLOOD ORDERABLES Fin al Result Performing Organization Address [facility]/ZIP Co de Phone Number [address] [place] [address] * POCT glucose (04/03/2024 12:14 AM AUTO CRANE DRIVER) [facility] Signature Glucose, POC 87 70 - 199 mg/dL Blood 04/03/2024 12:1 4 AM AUTO CRANE DRIVER 04/03/2024 12:14 AM AUTO CRANE DRIVER Ky Andino MD LAB POCT ORDERABLES - DEVICE Final Result Performing Organization Address [facility] Co de Phone Number [address] [place] [address] * CT Entire Lower Extremity Left W WO Contrast (04/03/2024 12:08 AM AUTO CRANE DRIVER) Anatomical Region Laterality Modality Lower Extremities Left Computed Tomog sheela 04/03/2024 12:1 4 AM AUTO CRANE DRIVER Narrative 04/03/2024 12:19 AM AUTO CRANE DRIVER EXAM DESCRIPTION: CT ENTIRE LOWER EXTREMITY LEFT [...] by John Bright M.D. T: Report ID: [id number] Reading Location: [id number] Procedure Note John Bright MD - 04/03/2024 [...] John Bright M.D. KH T: Report ID: [id number] Reading Location: [id number] Bing French MD IMG CT PROCEDURES Nicole l Result * Influenza A/B, RSV, and COVID-19 PCR Nasopharyngeal (04/02/2024 9:57 PM AUTO CRANE DRIVER) Pathologist [facility] COVID-19 RNA Negative Negative Influenza A RNA Negative Negative [facility] Influenza B RNA Negative Negative [facility] RSV RNA Negative Negative [facility] Comment: Interpretive data: Testing performed by [facility]. This test is performed using the [employer] Xpert Xpress CoV-2/Flu/RSV plus assay. This is a multiplex, real-time reverse transcriptase PCR assay intended for the qualitative detection of nucleic acid from SARS-CoV-2, influenza A, influenza B, and respiratory syncytial virus. This assay has been cleared by the [place] Food and Drug administration. The performance characteristics have been verified by the [facility]. Results must be considered in the clinical context, and a negative result does not rule out infection. Interpretive Data last revised 2023 Nasopharyngeal 04/02/2024 9: 57 PM AUTO CRANE DRIVER 04/02/2024 10:05 PM AUTO CRANE DRIVER Narrative [facility] - 04/02/2024 10:49 PM AUTO CRANE DRIVER Is the Patient experiencing symptoms consistent with COVID?->Yes Bing French MD LAB MICROBIOLOGY - GEN ERAL ORDERABLES Final Result [facility] [address] [facility] Department [place] [address] * (ABNORMAL) Aerobic and anaerobic culture and gram stain Wound Thigh, left (04/02/2024 9:57 PM AUTO CRANE DRIVER) Pathologist [facility] Direct Specimen Exam Stain: Moderate polymorphonuclear leukocytes seen. Moderate Gram Negative Bacilli Comment:Testing performed by : [facility], [address] [facility] [place]., [address] Report Final Report: Few Mixed aerobic and anaerobic microorganisms Includes the following: Few Pseudomonas aeruginosa Few Pseudomonas aeruginosa #2 (.) MADELEINE EDUARDO Comment:Testing performed by : [facility], [address] [place] [address] Organism PSEUDOMONAS AERUGINOSA [place] Organism PSEUDOMONAS AERUGINOSA [place] Organism MIXED AEROBIC AND ANAEROBIC MICROORGANISMS [place] Wound (Thigh, left) 04/02/2024 9:57 PM AUTO CRANE DRIVER 04/02/2024 11:37 PM AUTO CRANE DRIVER Narrative [place] - 04/10/2024 10:45 AM AUTO CRANE DRIVER Specimen received on an ESwab. Testing performed by [facility] ([phone]) Specimens submitted from normally sterile body sites [...] - GEN ERAL ORDERABLES Final Result MADELEINE EDUARDO [address] [facility] Department [place] [address] * Blood culture Blood Peripheral (04/02/2024 9:57 PM AUTO CRANE DRIVER) Report Final Report: No growth Comment:Testing performed by : [facility], [address] [place]., [address] Blood (Peripheral) 04/02/2024 9:57 PM AUTO CRANE DRIVER 04/02/2024 11:46 PM AUTO CRANE DRIVER Narrative MADELEINE EDUARDO - 04/07/2024 7:00 AM AUTO CRANE DRIVER From a different site than #1. Draw [...] performance characteristics have been verified by the [facility]. For questions about this culture, contact the Microbiology Laboratory at [phone]. Interpretive data was last revised on 23. Bing French MD LAB MICROBIOLOGY - GEN ERAL ORDERABLES Final Result [facility] [address] [facility] Department [place] [address] * Blood culture Blood Peripheral (04/02/2024 9:57 PM AUTO CRANE DRIVER) Report Final Report: No growth Comment:Testing performed by : [facility], [address] [place]., [address] Blood (Peripheral) 04/02/2024 9:57 PM AUTO CRANE DRIVER 04/02/2024 11:46 PM AUTO CRANE DRIVER Narrative MADELEINE EDUARDO - 04/07/2024 7:00 AM AUTO CRANE DRIVER Draw Blood cultures before administration of Antibiotics [...] performance characteristics have been verified by the [facility]. For questions about this culture, contact the Microbiology Laboratory at [phone]. Interpretive data was last revised on 23. Bing French MD LAB MICROBIOLOGY - GEN ERAL ORDERABLES Final Result [place] [address] [facility] Department [place] [address] * (ABNORMAL) D-dimer, quantitative (04/02/2024 9:57 PM AUTO CRANE DRIVER) D-Dimer 2,040(H) <=499 ng/mL FEU Comment: Interpretive [...] 68, VTE cut-off 680 ng/ml FEU. References; Schlyly GARZA et al. Brit Med J. 2013;346:f2492. Chas HORAN et al. Annals Int Med. 2015;163:701-11. Current interpretive data was last revised on 2019. Blood 04/02/2024 9:57 PM AUTO CRANE DRIVER 04/02/2024 9:59 PM AUTO CRANE DRIVER us Bing French MD LAB BLOOD ORDERABLES F inal Result [place] [address] [facility] Department [place] [address] * XR Chest 1 Vw Portable (04/02/2024 9:35 PM AUTO CRANE DRIVER) Anatomical Region Laterality Modality Body, Chest N/A Computed Radiogr aphy 04/02/2024 9:44 PM AUTO CRANE DRIVER Narrative 04/02/2024 9:46 PM AUTO CRANE DRIVER EXAM DESCRIPTION: XR CHEST 1 VIEW REASON [...] by John Bright M.D. T: Report ID: [id number] Reading Location: [id number] Procedure Note John Bright MD - 04/02/2024 [...] by John Bright M.D. T: Report ID: [id number] Reading Location: [id number] Bing French MD IMG XR PROCEDURES Nicole l Result * XR Tibia Fibula Left 2 views (04/02/2024 5:10 PM AUTO CRANE DRIVER) Anatomical Region Laterality Modality Lower Extremities, Lower Leg Left Com puted Radiography 04/02/2024 5:29 PM AUTO CRANE DRIVER Narrative 04/02/2024 5:33 PM AUTO CRANE DRIVER EXAM DESCRIPTION: XR TIBIA FIBULA LEFT 2 [...] signed by John POLANCO T: Report ID: [id number] Reading Location: [id number] Procedure Note John Bright MD - 04/02/2024 EXAM DESCRIPTION: XR TIBIA FIBULA LEFT 2 VIEWS REASON FOR STUDY: infection Pt. To ED with c/o wound to left leg. Reports home health comes to [facility] to help dress wound. Pt. Taking oral antibiotics. Was told by PCP susan to come in for IV antibiotics. Denies [...] signed by John POLANCO T: Report ID: [id number] Reading Location: [id number] Bing French MD IMG XR PROCEDURES Nicole l Result * XR Knee Left 1 or 2 Views (04/02/2024 5:10 PM AUTO CRANE DRIVER) Anatomical Region Laterality Modality Lower Extremities, Knee Left Computed Radiography 04/02/2024 5:33 PM AUTO CRANE DRIVER Narrative 04/02/2024 5:35 PM AUTO CRANE DRIVER EXAM DESCRIPTION: XR KNEE LEFT 1 OR [...] by John Bright M.D. T: Report ID: [id number] Reading Location: [id number] Procedure Note John Bright MD - 04/02/2024 [...] John Bright M.D. KH T: Report ID: [id number] Reading Location: [place] [address] Nikhil Fraire DO IMG XR PROCEDURES Nicole l Result * Sepsis Lactate w/ Reflex (04/02/2024 4:07 PM AUTO CRANE DRIVER) Sepsis Lactate 2.0 0.7 - 2.0 mmol/L Blood 04/02/2024 4:07 PM AUTO CRANE DRIVER 04/02/2024 4:10 PM AUTO CRANE DRIVER Bing French MD LAB BLOOD ORDERABLES F inal Result [facility] [address] Department of Laboratories [place], [place] [id number] * eGFR (04/02/2024 4:07 PM AUTO CRANE DRIVER) eGFR 83 >=60 mL/min/1. 73 m2 Comment: [...] last reviewed 2021. Blood 04/02/2024 4:07 PM AUTO CRANE DRIVER 04/02/2024 4:11 PM AUTO CRANE DRIVER us Bing French MD LAB BLOOD ORDERABLES F inal Result [facility] [address] Department [place] [address] * (ABNORMAL) Differential, auto (04/02/2024 4:07 PM AUTO CRANE DRIVER) Neutrophil abs 8.7(H) 1.5 - 6.5 K/cumm Imm gran abs 0.2(H) 0.0 - 0.1 K/cumm [facility] Lymphocyte abs 2.3 0.8 - 3.3 K/cumm [facility] Monocyte abs 0.9(H) 0.2 - 0.8 K/cumm [facility] Eosinophil abs 0.0 0.0 - 0.5 K/cumm [facility] Basophil abs 0.0 0.0 - 0.1 K/cumm [facility] Neutrophil pct 72.1 % [facility] Comment: Interpretive Data Percent cell count reference ranges are not reported, since discordance with absolute values may lead to misinterpretation of CBC data. Current Interpretive Data was last revised on 2017. Imm gran pct 1.4 % [facility] Comment: Interpretive Data Percent cell count reference ranges are not reported, since discordance with absolute values may lead to misinterpretation of CBC data. Current Interpretive Data was last revised on 2017. Lymphocyte pct 18.7 % [facility] Comment: Interpretive Data Percent cell count reference ranges are not reported, since discordance with absolute values may lead to misinterpretation of CBC data. Current Interpretive Data was last revised on 2017. Monocyte pct 7.2 % [facility] Comment: Interpretive Data Percent cell count reference ranges are not reported, since discordance with absolute values may lead to misinterpretation of CBC data. Current Interpretive Data was last revised on 2017. Eosinophil pct 0.3 % [facility] Comment: Interpretive Data Percent cell count reference ranges are not reported, since discordance with absolute values may lead to misinterpretation of CBC data. Current Interpretive Data was last revised on 2017. Basophil pct 0.3 % [facility] Comment: Interpretive Data Percent cell count reference ranges are not reported, since discordance with absolute values may lead to misinterpretation of CBC data. Current Interpretive Data was last revised on 2017. Blood 04/02/2024 4:07 PM AUTO CRANE DRIVER 04/02/2024 4:11 PM AUTO CRANE DRIVER us Bing French MD LAB BLOOD ORDERABLES F inal Result Performing Organization Address City/[facility]/ZIP Co de Phone Number [address] [place] [address] * (ABNORMAL) CBC with auto differential (04/02/2024 4:07 PM AUTO CRANE DRIVER) Pathologist [facility] WBC 12.1(H) 3.8 - 9.9 K/cumm Hgb 9.9(L) 11.9 - 15.5 g/dL [facility] Hct 31.5(L) 35.6 - 45.5 % [facility] Plt 348 150 - 400 K/cumm [facility] MPV 9.2 9.1 - 12.3 fL [facility] RBC 3.03(L) 3.90 - 5.20 M/cumm [facility] MCV 104.0(H) 81.3 - 96.4 fL [facility] MCH 32.7 27.1 - 33.3 pg [facility] MCHC 31.4(L) 32.3 - 35.7 g/dL [facility] RDW CV 14.6 11.1 - 14.9 % [facility] RDW SD 55.5(H) 35.7 - 48.1 fL [facility] NRBC abs 0.00 0.00 - 0.01 K/cumm [facility] Blood 04/02/2024 4:07 PM AUTO CRANE DRIVER 04/02/2024 4:11 PM AUTO CRANE DRIVER us Bing French MD LAB BLOOD ORDERABLES F inal Result Performing Organization Address City/[facility]/ZIP Co de Phone Number [address] [place] [address] * (ABNORMAL) Comprehensive metabolic panel (04/02/2024 4:07 PM AUTO CRANE DRIVER) Pathologist [facility] Sodium 136 135 - 145 mmol/L Potassium, pl 3.9 3.3 - 4.9 mmol/L [facility] Chloride 101 97 - 110 mmol/L [facility] CO2 22 22 - 32 mmol/L [facility] Anion gap 13 2 - 15 mmol/L [facility] BUN 25 6 - 25 mg/dL [facility] Creatinine 0.83 0.60 - 1.10 mg/dL [facility] Glucose 127 70 - 199 mg/dL [facility] Comment: Interpretive Data Fasting glucose >/= 126 [...] 2022. Calcium 9.4 8.5 - 10.3 mg/dL [facility] Bilirubin, total 0.4 0.1 - 1.2 mg/dL [facility] Protein, pl 7.7 6.5 - 8.5 g/dL [facility] Albumin 3.2(L) 3.5 - 5.0 g/dL [facility] Alk phos 342(H) 40 - 130 Units/L [facility] ALT 20 7 - 45 Units/L [facility] AST 29 10 - 45 Units/L [facility] Blood 04/02/2024 4:07 PM AUTO CRANE DRIVER 04/02/2024 4:11 PM AUTO CRANE DRIVER us Bing French MD LAB BLOOD ORDERABLES F inal Result [facility] [address] [facility] Department [place] [address] * XR Shoulder Right 2 or More Views (04/01/2024 9:46 AM AUTO CRANE DRIVER) Anatomical Region Laterality Modality Upper Extremities, Shoulder Right Comp uted Radiography 04/01/2024 10:1 1 AM AUTO CRANE DRIVER Impressions 04/01/2024 1:03 PM AUTO CRANE DRIVER 1. 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 Dictated by: Homero Dwyer MD PHD The radiology attending physician has personally reviewed this study, and had reviewed and/or edited this written report and agrees with it. Electronically signed by: Mychal Griffin M.D. Narrative 04/01/2024 1:03 PM AUTO CRANE DRIVER EXAMINATION: XR SHOULDER RIGHT 2 OR MORE [...] it. Electronically signed by: Mychal Griffin M.D. Krysten Cohn MD IMG XR PROCEDURES Fin al Result * Glucose, random (Outreach) (03/27/2024 2:09 PM AUTO CRANE DRIVER) [facility] Signature Glucose 141 70 - 199 mg/dL Comment: [...] last revised 2022. Blood 03/27/2024 2:09 PM AUTO CRANE DRIVER 03/27/2024 7:01 PM AUTO CRANE DRIVER Ericka Glass MD LAB BLOOD ORDERABLES Final Result Performing Organization Address City/[facility]/ZIP Co de Phone Number [facility] [place] [address] * eGFR (03/27/2024 2:09 PM AUTO CRANE DRIVER) Pathologist [facility] eGFR 83 >=60 [...] last reviewed 2021. Blood 03/27/2024 2:09 PM AUTO CRANE DRIVER 03/27/2024 7:14 PM AUTO CRANE DRIVER Ericka Glass MD LAB BLOOD ORDERABLES Final Result Performing Organization Address City/[facility]/ZIP Co de Phone Number [place] [facility] [place] [address] * (ABNORMAL) Differential, auto (03/27/2024 2:09 PM AUTO CRANE DRIVER) Pathologist [facility] Neutrophil abs 13.1(H) 1.5 - 6.5 K/cumm Imm gran abs 0.3(H) 0.0 - 0.1 K/cumm [facility] Lymphocyte abs 1.5 0.8 - 3.3 K/cumm [facility] Monocyte abs 0.9(H) 0.2 - 0.8 K/cumm [facility] Eosinophil abs 0.0 0.0 - 0.5 K/cumm [facility] Basophil abs 0.0 0.0 - 0.1 K/cumm [facility] Neutrophil pct 82.9 % [facility] Comment: Interpretive Data Percent cell count reference ranges are not reported, since discordance with absolute values may lead to misinterpretation of CBC data. Current Interpretive Data was last revised on 2017. Imm gran pct 1.6 % [facility] Comment: Interpretive Data Percent cell count reference ranges are not reported, since discordance with absolute values may lead to misinterpretation of CBC data. Current Interpretive Data was last revised on 2017. Lymphocyte pct 9.3 % [facility] Comment: Interpretive Data Percent cell count reference ranges are not reported, since discordance with absolute values may lead to misinterpretation of CBC data. Current Interpretive Data was last revised on 2017. Monocyte pct 5.8 % [facility] Comment: Interpretive Data Percent cell count reference ranges are not reported, since discordance with absolute values may lead to misinterpretation of CBC data. Current Interpretive Data was last revised on 2017. Eosinophil pct 0.2 % [facility] Comment: Interpretive Data Percent cell count reference ranges are not reported, since discordance with absolute values may lead to misinterpretation of CBC data. Current Interpretive Data was last revised on 2017. Basophil pct 0.2 % [facility] Comment: Interpretive Data Percent cell count reference ranges are not reported, since discordance with absolute values may lead to misinterpretation of CBC data. Current Interpretive Data was last revised on 2017. Blood 03/27/2024 2:09 PM AUTO CRANE DRIVER 03/27/2024 7:01 PM AUTO CRANE DRIVER Ericka Glass MD LAB BLOOD ORDERABLES Final Result Performing Organization Address [facility] Co de Phone Number [facility] Department [place] [address] * (ABNORMAL) Comprehensive metabolic panel, without glucose (Outreach) (03/27/2024 2:09 PM AUTO CRANE DRIVER) Sodium 136 135 - 145 mmol/L Potassium, pl 3.4 3.3 - 4.9 mmol/L [facility] Chloride 95(L) 97 - 110 mmol/L [facility] CO2 25 22 - 32 mmol/L [facility] Anion gap 16(H) 2 - 15 mmol/L [facility] BUN 22 6 - 25 mg/dL [facility] Creatinine 0.83 0.60 - 1.10 mg/dL [facility] Calcium 8.6 8.5 - 10.3 mg/dL [facility] Protein, pl 7.3 6.5 - 8.5 g/dL [facility] Albumin 3.3(L) 3.5 - 5.0 g/dL [facility] Bilirubin, total 0.8 0.1 - 1.2 mg/dL [facility] Alk phos 257(H) 40 - 130 Units/L [facility] AST 53(H) 10 - 45 Units/L [facility] ALT 29 7 - 45 Units/L [facility] Blood 03/27/2024 2:09 PM AUTO CRANE DRIVER 03/27/2024 7:01 PM AUTO CRANE DRIVER Ericka Glass MD LAB BLOOD ORDERABLES Final Result [facility] [place] [address] * (ABNORMAL) CBC with auto differential (03/27/2024 2:09 PM AUTO CRANE DRIVER) WBC 15.8(H) 3.8 - 9.9 K/cumm Hgb 11.0(L) 11.9 - 15.5 g/dL [facility] Hct 35.4(L) 35.6 - 45.5 % [facility] Plt 305 150 - 400 K/cumm [facility] MPV 10.4 9.1 - 12.3 fL [facility] RBC 3.36(L) 3.90 - 5.20 M/cumm [facility] MCV 105.4(H) 81.3 - 96.4 fL [facility] MCH 32.7 27.1 - 33.3 pg [facility] MCHC 31.1(L) 32.3 - 35.7 g/dL [facility] RDW CV 14.7 11.1 - 14.9 % [facility] RDW SD 56.8(H) 35.7 - 48.1 fL [facility] NRBC abs 0.02(H) 0.00 - 0.01 K/cumm [facility] Blood 03/27/2024 2:09 PM AUTO CRANE DRIVER 03/27/2024 7:01 PM AUTO CRANE DRIVER Ericka Glass MD LAB BLOOD ORDERABLES Final Result Performing Organization Address City/[facility]/ZIP Co de Phone Number [facility] [place] [address] * (ABNORMAL) Erythrocyte sedimentation rate (03/27/2024 2:09 PM AUTO CRANE DRIVER) Pathologist [facility] Erythrocyte sedimentation rate 48(H) 1 - 30 mm/hr Blood 03/27/2024 2:09 PM AUTO CRANE DRIVER 03/27/2024 7:01 PM AUTO CRANE DRIVER Ericka Glass MD LAB BLOOD ORDERABLES Final Result [facility] [place] [address] * (ABNORMAL) CRP (acute phase) (03/27/2024 2:09 PM AUTO CRANE DRIVER) CRP 312.4(H) <=10.0 mg/L Comment:Repeated on Dilution Blood 03/27/2024 2:09 PM AUTO CRANE DRIVER 03/27/2024 7:01 PM AUTO CRANE DRIVER us Ericka Glass MD LAB BLOOD ORDERABLES Final Result Performing Organization Address City/[facility] [place] [address] * POCT glucose (03/12/2024 7:49 PM AUTO CRANE DRIVER) Glucose, POC 109 70 - 199 mg/dL Blood 03/12/2024 7:49 PM AUTO CRANE DRIVER 03/12/2024 7:49 PM AUTO CRANE DRIVER us Krysten Cohn MD LAB POCT ORDERABLES - DEVICE Final Result Performing Organization Address [facility] Co de Phone Number [facility] [place] [address] * POCT glucose (03/12/2024 4:39 PM AUTO CRANE DRIVER) Glucose, POC 78 70 - 199 mg/dL Blood 03/12/2024 4:39 PM AUTO CRANE DRIVER 03/12/2024 4:39 PM AUTO CRANE DRIVER us Krysten Cohn MD LAB POCT ORDERABLES - DEVICE Final Result Performing Organization Address [facility] Co de Phone Number [facility] [place] [address] * POCT glucose (03/12/2024 11:41 AM AUTO CRANE DRIVER) Glucose, POC 98 70 - 199 mg/dL Blood 03/12/2024 11:4 1 AM AUTO CRANE DRIVER 03/12/2024 11:41 AM AUTO CRANE DRIVER us Krysten Cohn MD LAB POCT ORDERABLES - DEVICE Final Result Performing Organization Address City/[facility] Co de Phone Number [facility] [place] [address] * POCT glucose (03/12/2024 7:48 AM AUTO CRANE DRIVER) Pathologist [facility] Glucose, POC 92 70 - 199 mg/dL Blood 03/12/2024 7:48 AM AUTO CRANE DRIVER 03/12/2024 7:48 AM AUTO CRANE DRIVER Krysten Cohn MD LAB POCT ORDERABLES - DEVICE Final Result Performing Organization Address City/[facility] Co de Phone [place] [address] * eGFR (03/11/2024 9:56 PM AUTO CRANE DRIVER) [facility] eGFR >90 >=60 mL/min/1. 73 m2 [...] last reviewed 2021. Blood 03/11/2024 9:56 PM AUTO CRANE DRIVER 03/11/2024 10:31 PM AUTO CRANE DRIVER us Krysten Cohn MD LAB BLOOD ORDERABLES Final Result Performing Organization Address City/[facility]/ZIP Co de Phone Number MADELEINE [facility] [place] [address] * Differential, auto (03/11/2024 9:56 PM AUTO CRANE DRIVER) Neutrophil abs 3.2 1.5 - 6.5 K/cumm Imm gran abs 0.0 0.0 - 0.1 K/cumm [facility] Lymphocyte abs 1.6 0.8 - 3.3 K/cumm [facility] Monocyte abs 0.7 0.2 - 0.8 K/cumm [facility] Eosinophil abs 0.1 0.0 - 0.5 K/cumm [facility] Basophil abs 0.1 0.0 - 0.1 K/cumm [facility] Neutrophil pct 55.9 % [facility] Comment: Interpretive Data Percent cell count reference ranges are not reported, since discordance with absolute values may lead to misinterpretation of CBC data. Current Interpretive Data was last revised on 2017. Imm gran pct 0.7 % [facility] Comment: Interpretive Data Percent cell count reference ranges are not reported, since discordance with absolute values may lead to misinterpretation of CBC data. Current Interpretive Data was last revised on 2017. Lymphocyte pct 28.2 % [facility] Comment: Interpretive Data Percent cell count reference ranges are not reported, since discordance with absolute values may lead to misinterpretation of CBC data. Current Interpretive Data was last revised on 2017. Monocyte pct 12.3 % [facility] Comment: Interpretive Data Percent cell count reference ranges are not reported, since discordance with absolute values may lead to misinterpretation of CBC data. Current Interpretive Data was last revised on 2017. Eosinophil pct 1.9 % [facility] Comment: Interpretive Data Percent cell count reference ranges are not reported, since discordance with absolute values may lead to misinterpretation of CBC data. Current Interpretive Data was last revised on 2017. Basophil pct 1.0 % [facility] Comment: Interpretive Data Percent cell count reference ranges are not reported, since discordance with absolute values may lead to misinterpretation of CBC data. Current Interpretive Data was last revised on 2017. Blood 03/11/2024 9:56 PM AUTO CRANE DRIVER 03/11/2024 10:33 PM AUTO CRANE DRIVER us Krysten Cohn MD LAB BLOOD ORDERABLES Final Result Performing Organization Address [facility] Co de Phone Number [facility] [place] [address] * (ABNORMAL) CBC with auto differential (03/11/2024 9:56 PM AUTO CRANE DRIVER) Pathologist [facility] WBC 5.8 3.8 - 9.9 K/cumm Hgb 8.7(L) 11.9 - 15.5 g/dL [facility] Hct 27.3(L) 35.6 - 45.5 % [facility] Plt 392 150 - 400 K/cumm [facility] MPV 9.9 9.1 - 12.3 fL [facility] RBC 2.55(L) 3.90 - 5.20 M/cumm [facility] MCV 107.1(H) 81.3 - 96.4 fL [facility] MCH 34.1(H) 27.1 - 33.3 pg [facility] MCHC 31.9(L) 32.3 - 35.7 g/dL [facility] RDW CV 15.7(H) 11.1 - 14.9 % [facility] RDW SD 61.0(H) 35.7 - 48.1 fL [facility] NRBC abs 0.00 0.00 - 0.01 K/cumm [facility] Blood 03/11/2024 9:56 PM AUTO CRANE DRIVER 03/11/2024 10:33 PM AUTO CRANE DRIVER Krysten Cohn MD LAB BLOOD ORDERABLES Final Result [facility] [place] [address] * Phosphorus (03/11/2024 9:56 PM AUTO CRANE DRIVER) Pathologist [facility] Phosphorus, pl 3.1 2.3 - 4.5 mg/dL Blood 03/11/2024 9:56 PM AUTO CRANE DRIVER 03/11/2024 10:31 PM AUTO CRANE DRIVER us Krysten Cohn MD LAB BLOOD ORDERABLES Final Result [place] [facility] [place] [address] * (ABNORMAL) Magnesium (03/11/2024 9:56 PM AUTO CRANE DRIVER) Pathologist [facility] Magnesium 1.3(L) 1.4 - 2.5 mg/dL Blood 03/11/2024 9:56 PM AUTO CRANE DRIVER 03/11/2024 10:31 PM AUTO CRANE DRIVER Krysten Cohn MD LAB BLOOD ORDERABLES Final Result Performing Organization Address [facility] Co de Phone Number MADELEINE [facility] [place] [address] * (ABNORMAL) Comprehensive metabolic panel (03/11/2024 9:56 PM AUTO CRANE DRIVER) [facility] Sodium 140 135 - 145 mmol/L Potassium, pl 3.1(L) 3.3 - 4.9 mmol/L [facility] Chloride 100 97 - 110 mmol/L [facility] CO2 29 22 - 32 mmol/L [facility] Anion gap 11 2 - 15 mmol/L [facility] BUN 10 6 - 25 mg/dL [facility] Creatinine 0.64 0.60 - 1.10 mg/dL [facility] Glucose 96 70 - 199 mg/dL [facility] Comment: Interpretive Data Fasting glucose [...] 2022. Calcium 7.8(L) 8.5 - 10.3 mg/dL [facility] Bilirubin, total 0.5 0.1 - 1.2 mg/dL [facility] Protein, pl 6.1(L) 6.5 - 8.5 g/dL [facility] Albumin 3.0(L) 3.5 - 5.0 g/dL [facility] Alk phos 283(H) 40 - 130 Units/L [facility] ALT 11 7 - 45 Units/L [facility] AST 38 10 - 45 Units/L [facility] Blood 03/11/2024 9:56 PM AUTO CRANE DRIVER 03/11/2024 10:31 PM AUTO CRANE DRIVER us Krysten Cohn MD LAB BLOOD ORDERABLES Final Result Performing Organization Address [facility] Co de Phone Number [facility] [place] [address] * POCT glucose (03/11/2024 7:43 PM AUTO CRANE DRIVER) Glucose, POC 106 70 - 199 mg/dL Blood 03/11/2024 7:43 PM AUTO CRANE DRIVER 03/11/2024 7:43 PM AUTO CRANE DRIVER us Krysten Cohn MD LAB POCT ORDERABLES - DEVICE Final Result Performing Organization Address [facility] Co de Phone Number [facility] [place] [address] * POCT glucose (03/11/2024 5:07 PM AUTO CRANE DRIVER) Glucose, POC 109 70 - 199 mg/dL Blood 03/11/2024 5:07 PM AUTO CRANE DRIVER 03/11/2024 5:07 PM AUTO CRANE DRIVER us Krysten Cohn MD LAB POCT ORDERABLES - DEVICE Final Result Performing Organization Address [facility] Co de Phone Number [facility] [place] [address] * POCT glucose (03/11/2024 11:52 AM AUTO CRANE DRIVER) Glucose, POC 102 70 - 199 mg/dL Blood 03/11/2024 11:5 2 AM AUTO CRANE DRIVER 03/11/2024 11:52 AM AUTO CRANE DRIVER us Krysten Cohn MD LAB POCT ORDERABLES - DEVICE Final Result Performing Organization Address [facility] Co de Phone Number [facility] [place] [address] * POCT glucose (03/11/2024 7:40 AM AUTO CRANE DRIVER) Glucose, POC 110 70 - 199 mg/dL Blood 03/11/2024 7:40 AM AUTO CRANE DRIVER 03/11/2024 7:40 AM AUTO CRANE DRIVER us Krysten Cohn MD LAB POCT ORDERABLES - DEVICE Final Result Performing Organization Address [facility] Co de Phone Number [facility] [place] [address] * POCT glucose (03/10/2024 7:47 PM AUTO CRANE DRIVER) Glucose, POC 127 70 - 199 mg/dL Blood 03/10/2024 7:47 PM AUTO CRANE DRIVER 03/10/2024 7:47 PM AUTO CRANE DRIVER us Krysten Cohn MD LAB POCT ORDERABLES - DEVICE Final Result Performing Organization Address [facility] Co de Phone Number [facility] [place] [address] * POCT glucose (03/10/2024 5:07 PM AUTO CRANE DRIVER) Glucose, POC 93 70 - 199 mg/dL Blood 03/10/2024 5:07 PM AUTO CRANE DRIVER 03/10/2024 5:07 PM AUTO CRANE DRIVER Krysten Cohn MD LAB POCT ORDERABLES - DEVICE Final Result Performing Organization Address City/[facility]/ZIP Co de Phone Number MADELEINE [facility] [place] [address] * POCT glucose (03/10/2024 11:24 AM AUTO CRANE DRIVER) Glucose, POC 93 70 - 199 mg/dL Blood 03/10/2024 11:2 4 AM AUTO CRANE DRIVER 03/10/2024 11:24 AM AUTO CRANE DRIVER us Krysten Cohn MD LAB POCT ORDERABLES - DEVICE Final Result Performing Organization Address [facility] Co de Phone Number MADELEINE [facility] [place] [address] * POCT glucose (03/10/2024 7:43 AM AUTO CRANE DRIVER) Glucose, POC 105 70 - 199 mg/dL Blood 03/10/2024 7:43 AM AUTO CRANE DRIVER 03/10/2024 7:43 AM AUTO CRANE DRIVER us Krysten Cohn MD LAB POCT ORDERABLES - DEVICE Final Result Performing Organization Address City/[facility] Co de Phone Number [facility] [place] [address] * eGFR (03/09/2024 8:42 PM AUTO CRANE DRIVER) eGFR >90 >=60 mL/min/1. 73 m2 Comment: [...] last reviewed 2021. Blood 03/09/2024 8:42 PM AUTO CRANE DRIVER 03/09/2024 8:56 PM AUTO CRANE DRIVER us Krysten Cohn MD LAB BLOOD ORDERABLES Final Result [facility] [place] [address] * (ABNORMAL) Differential, auto (03/09/2024 8:42 PM AUTO CRANE DRIVER) Neutrophil abs 5.2 1.5 - 6.5 K/cumm Imm gran abs 0.1 0.0 - 0.1 K/cumm [facility] Lymphocyte abs 1.7 0.8 - 3.3 K/cumm [facility] Monocyte abs 0.9(H) 0.2 - 0.8 K/cumm [facility] Eosinophil abs 0.1 0.0 - 0.5 K/cumm [facility] Basophil abs 0.1 0.0 - 0.1 K/cumm [facility] Neutrophil pct 65.0 % [facility] Comment: Interpretive Data Percent cell count reference ranges are not reported, since discordance with absolute values may lead to misinterpretation of CBC data. Current Interpretive Data was last revised on 2017. Imm gran pct 0.7 % [facility] Comment: Interpretive Data Percent cell count reference ranges are not reported, since discordance with absolute values may lead to misinterpretation of CBC data. Current Interpretive Data was last revised on 2017. Lymphocyte pct 21.0 % [facility] Comment: Interpretive Data Percent cell count reference ranges are not reported, since discordance with absolute values may lead to misinterpretation of CBC data. Current Interpretive Data was last revised on 2017. Monocyte pct 11.2 % [facility] Comment: Interpretive Data Percent cell count reference ranges are not reported, since discordance with absolute values may lead to misinterpretation of CBC data. Current Interpretive Data was last revised on 2017. Eosinophil pct 1.2 % [facility] Comment: Interpretive Data Percent cell count reference ranges are not reported, since discordance with absolute values may lead to misinterpretation of CBC data. Current Interpretive Data was last revised on 2017. Basophil pct 0.9 % [facility] Comment: Interpretive Data Percent cell count reference ranges are not reported, since discordance with absolute values may lead to misinterpretation of CBC data. Current Interpretive Data was last revised on 2017. Blood 03/09/2024 8:42 PM AUTO CRANE DRIVER 03/09/2024 8:56 PM AUTO CRANE DRIVER us Krysten Cohn MD LAB BLOOD ORDERABLES Final Result [facility] [place] [address] * (ABNORMAL) CBC with auto differential (03/09/2024 8:42 PM AUTO CRANE DRIVER) WBC 8.0 3.8 - 9.9 K/cumm Hgb 8.5(L) 11.9 - 15.5 g/dL [facility] Hct 26.9(L) 35.6 - 45.5 % [facility] Plt 399 150 - 400 K/cumm [facility] MPV 10.1 9.1 - 12.3 fL [facility] RBC 2.55(L) 3.90 - 5.20 M/cumm [facility] MCV 105.5(H) 81.3 - 96.4 fL [facility] MCH 33.3 27.1 - 33.3 pg [facility] MCHC 31.6(L) 32.3 - 35.7 g/dL [facility] RDW CV 16.0(H) 11.1 - 14.9 % [facility] RDW SD 61.0(H) 35.7 - 48.1 fL [facility] NRBC abs 0.00 0.00 - 0.01 K/cumm [facility] Blood 03/09/2024 8:42 PM AUTO CRANE DRIVER 03/09/2024 8:56 PM AUTO CRANE DRIVER us Krysten Cohn MD LAB BLOOD ORDERABLES Final Result Performing Organization Address [facility] de Phone Number [facility] [place] [address] * Phosphorus (03/09/2024 8:42 PM AUTO CRANE DRIVER) [facility] Phosphorus, pl 2.6 2.3 - 4.5 mg/dL Blood 03/09/2024 8:42 PM AUTO CRANE DRIVER 03/09/2024 8:56 PM AUTO CRANE DRIVER us Krysten Cohn MD LAB BLOOD ORDERABLES Final Result Performing Organization Address [facility] de Phone Number [facility] Department [place] [address] * (ABNORMAL) Magnesium (03/09/2024 8:42 PM AUTO CRANE DRIVER) [facility] Magnesium 1.3(L) 1.4 - 2.5 mg/dL Blood 03/09/2024 8:42 PM AUTO CRANE DRIVER 03/09/2024 8:56 PM AUTO CRANE DRIVER Krysten Cohn MD LAB BLOOD ORDERABLES Final Result Performing Organization Address [facility] de Phone Number [facility] [place] [address] * (ABNORMAL) Comprehensive metabolic panel (03/09/2024 8:42 PM AUTO CRANE DRIVER) [facility] Sodium 138 135 - 145 mmol/L Potassium, pl 3.2(L) 3.3 - 4.9 mmol/L [facility] Chloride 99 97 - 110 mmol/L [facility] CO2 29 22 - 32 mmol/L [facility] Anion gap 10 2 - 15 mmol/L [facility] BUN 9 6 - 25 mg/dL [facility] Creatinine 0.62 0.60 - 1.10 mg/dL [facility] Glucose 102 70 - 199 mg/dL [facility] Comment: Interpretive Data Fasting glucose [...] 2022. Calcium 8.0(L) 8.5 - 10.3 mg/dL [facility] Bilirubin, total 0.6 0.1 - 1.2 mg/dL [facility] Protein, pl 6.1(L) 6.5 - 8.5 g/dL [facility] Albumin 3.0(L) 3.5 - 5.0 g/dL [facility] Alk phos 213(H) 40 - 130 Units/L [facility] ALT 10 7 - 45 Units/L [facility] AST 34 10 - 45 Units/L [facility] Blood 03/09/2024 8:42 PM AUTO CRANE DRIVER 03/09/2024 8:56 PM AUTO CRANE DRIVER Krysten Cohn MD LAB BLOOD ORDERABLES Final Result [facility] Department [place] [address] * POCT glucose (03/09/2024 7:31 PM AUTO CRANE DRIVER) [facility] Glucose, POC 119 70 - 199 mg/dL Blood 03/09/2024 7:31 PM AUTO CRANE DRIVER 03/09/2024 7:31 PM AUTO CRANE DRIVER Krysten Cohn MD LAB POCT ORDERABLES - DEVICE Final Result [facility] [place] [address] * POCT glucose (03/09/2024 4:39 PM AUTO CRANE DRIVER) Glucose, POC 105 70 - 199 mg/dL Blood 03/09/2024 4:39 PM AUTO CRANE DRIVER 03/09/2024 4:39 PM AUTO CRANE DRIVER us Krysten Cohn MD LAB POCT ORDERABLES - DEVICE Final Result Performing Organization Address City/[facility] Co de Phone Number [facility] [place] [address] * POCT glucose (03/09/2024 11:39 AM AUTO CRANE DRIVER) Glucose, POC 121 70 - 199 mg/dL Blood 03/09/2024 11:3 9 AM AUTO CRANE DRIVER 03/09/2024 11:39 AM AUTO CRANE DRIVER us Krysten Cohn MD LAB POCT ORDERABLES - DEVICE Final Result Performing Organization Address City/[facility]/ZIP Co de Phone Number [facility] [place] [address] * POCT glucose (03/09/2024 8:27 AM AUTO CRANE DRIVER) Glucose, POC 123 70 - 199 mg/dL Blood 03/09/2024 8:27 AM AUTO CRANE DRIVER 03/09/2024 8:27 AM AUTO CRANE DRIVER us Krysten Cohn MD LAB POCT ORDERABLES - DEVICE Final Result Performing Organization Address City/[facility]/[place]IP [place] [address] * eGFR (03/08/2024 9:09 PM AUTO CRANE DRIVER) eGFR >90 >=60 mL/min/1. 73 m2 Comment: [...] last reviewed 2021. Blood 03/08/2024 9:09 PM AUTO CRANE DRIVER 03/08/2024 9:30 PM AUTO CRANE DRIVER Krysten Cohn MD LAB BLOOD ORDERABLES Final Result [facility] [place] [address] * Phosphorus (03/08/2024 9:09 PM AUTO CRANE DRIVER) Phosphorus, pl 2.7 2.3 - 4.5 mg/dL Blood 03/08/2024 9:09 PM AUTO CRANE DRIVER 03/08/2024 9:30 PM AUTO CRANE DRIVER Krysten Cohn MD LAB BLOOD ORDERABLES Final Result [facility] [place] [address] * (ABNORMAL) Magnesium (03/08/2024 9:09 PM AUTO CRANE DRIVER) Magnesium 1.2(L) 1.4 - 2.5 mg/dL Blood 03/08/2024 9:09 PM AUTO CRANE DRIVER 03/08/2024 9:30 PM AUTO CRANE DRIVER us Krysten Cohn MD LAB BLOOD ORDERABLES Final Result [facility] [place] [address] * (ABNORMAL) Comprehensive metabolic panel (03/08/2024 9:09 PM AUTO CRANE DRIVER) Sodium 138 135 - 145 mmol/L Potassium, pl 3.4 3.3 - 4.9 mmol/L [facility] Chloride 99 97 - 110 mmol/L [facility] CO2 27 22 - 32 mmol/L [facility] Anion gap 12 2 - 15 mmol/L [facility] BUN 11 6 - 25 mg/dL [facility] Creatinine 0.62 0.60 - 1.10 mg/dL [facility] Glucose 93 70 - 199 mg/dL [facility] Comment: Interpretive Data Fasting glucose [...] 2022. Calcium 7.9(L) 8.5 - 10.3 mg/dL [facility] Bilirubin, total 0.6 0.1 - 1.2 mg/dL [facility] Protein, pl 6.2(L) 6.5 - 8.5 g/dL [facility] Albumin 2.9(L) 3.5 - 5.0 g/dL [facility] Alk phos 226(H) 40 - 130 Units/L [facility] ALT 13 7 - 45 Units/L [facility] AST 42 10 - 45 Units/L [facility] Blood 03/08/2024 9:09 PM AUTO CRANE DRIVER 03/08/2024 9:30 PM AUTO CRANE DRIVER us Krysten Cohn MD LAB BLOOD ORDERABLES Final Result Performing Organization Address City/[facility] Co de Phone Number [facility] [place] [address] * POCT glucose (03/08/2024 7:40 PM AUTO CRANE DRIVER) Glucose, POC 103 70 - 199 mg/dL Blood 03/08/2024 7:40 PM AUTO CRANE DRIVER 03/08/2024 7:40 PM AUTO CRANE DRIVER us Krysten Cohn MD LAB POCT ORDERABLES - DEVICE Final Result Performing Organization Address [facility] Co de Phone Number [facility] [place] [address] * POCT glucose (03/08/2024 5:03 PM AUTO CRANE DRIVER) Glucose, POC 81 70 - 199 mg/dL Blood 03/08/2024 5:03 PM AUTO CRANE DRIVER 03/08/2024 5:03 PM AUTO CRANE DRIVER us Krysten Cohn MD LAB POCT ORDERABLES - DEVICE Final Result Performing Organization Address [facility] Co de Phone Number [facility] [place] [address] * POCT glucose (03/08/2024 11:12 AM AUTO CRANE DRIVER) Glucose, POC 104 70 - 199 mg/dL Blood 03/08/2024 11:1 2 AM AUTO CRANE DRIVER 03/08/2024 11:12 AM AUTO CRANE DRIVER us Krysten Cohn MD LAB POCT ORDERABLES - DEVICE Final Result Performing Organization Address City/[facility] Co de Phone Number [facility] [place] [address] * POCT glucose (03/08/2024 8:18 AM AUTO CRANE DRIVER) Glucose, POC 103 70 - 199 mg/dL Blood 03/08/2024 8:18 AM AUTO CRANE DRIVER 03/08/2024 8:18 AM AUTO CRANE DRIVER us Krysten Cohn MD LAB POCT ORDERABLES - DEVICE Final Result Performing Organization Address City/[facility]/ZIP Co de Phone Number [facility] [place] [address] * eGFR (03/07/2024 10:22 PM AUTO CRANE DRIVER) Pathologist [facility] eGFR >90 >=60 [...] reviewed 2021. Blood 03/07/2024 10:2 2 PM AUTO CRANE DRIVER 03/07/2024 11:02 PM AUTO CRANE DRIVER us Krysten Cohn MD LAB BLOOD ORDERABLES Final Result Performing Organization Address City/[facility]/ZIP Co de Phone Number [facility] [place] [address] * (ABNORMAL) Differential, auto (03/07/2024 10:22 PM AUTO CRANE DRIVER) Neutrophil abs 7.3(H) 1.5 - 6.5 K/cumm Imm gran abs 0.2(H) 0.0 - 0.1 K/cumm [facility] Lymphocyte abs 2.2 0.8 - 3.3 K/cumm [facility] Monocyte abs 1.1(H) 0.2 - 0.8 K/cumm [facility] Eosinophil abs 0.2 0.0 - 0.5 K/cumm [facility] Basophil abs 0.1 0.0 - 0.1 K/cumm [facility] Neutrophil pct 66.0 % [facility] Comment: Interpretive Data Percent cell count reference ranges are not reported, since discordance with absolute values may lead to misinterpretation of CBC data. Current Interpretive Data was last revised on 2017. Imm gran pct 2.0 % [facility] Comment: Interpretive Data Percent cell count reference ranges are not reported, since discordance with absolute values may lead to misinterpretation of CBC data. Current Interpretive Data was last revised on 2017. Lymphocyte pct 20.0 % [facility] Comment: Interpretive Data Percent cell count reference ranges are not reported, since discordance with absolute values may lead to misinterpretation of CBC data. Current Interpretive Data was last revised on 2017. Monocyte pct 9.6 % [facility] Comment: Interpretive Data Percent cell count reference ranges are not reported, since discordance with absolute values may lead to misinterpretation of CBC data. Current Interpretive Data was last revised on 2017. Eosinophil pct 1.4 % [facility] Comment: Interpretive Data Percent cell count reference ranges are not reported, since discordance with absolute values may lead to misinterpretation of CBC data. Current Interpretive Data was last revised on 2017. Basophil pct 1.0 % [facility] Comment: Interpretive Data Percent cell count reference ranges are not reported, since discordance with absolute values may lead to misinterpretation of CBC data. Current Interpretive Data was last revised on 2017. Blood 03/07/2024 10:2 2 PM AUTO CRANE DRIVER 03/07/2024 11:02 PM AUTO CRANE DRIVER us Krysten Cohn MD LAB BLOOD ORDERABLES Final Result [facility] [place] [address] * (ABNORMAL) CBC with auto differential (03/07/2024 10:22 PM AUTO CRANE DRIVER) WBC 11.1(H) 3.8 - 9.9 K/cumm Hgb 8.3(L) 11.9 - 15.5 g/dL [facility] Hct 25.8(L) 35.6 - 45.5 % [facility] Plt 335 150 - 400 K/cumm [facility] MPV 10.3 9.1 - 12.3 fL [facility] RBC 2.37(L) 3.90 - 5.20 M/cumm [facility] MCV 108.9(H) 81.3 - 96.4 fL [facility] MCH 35.0(H) 27.1 - 33.3 pg [facility] MCHC 32.2(L) 32.3 - 35.7 g/dL [facility] RDW CV 16.5(H) 11.1 - 14.9 % [facility] RDW SD 63.4(H) 35.7 - 48.1 fL [facility] NRBC abs 0.00 0.00 - 0.01 K/cumm [facility] Blood 03/07/2024 10:2 2 PM AUTO CRANE DRIVER 03/07/2024 11:02 PM AUTO CRANE DRIVER us Krysten Cohn MD LAB BLOOD ORDERABLES Final Result [facility] [place] [address] * Phosphorus (03/07/2024 10:22 PM AUTO CRANE DRIVER) Phosphorus, pl 2.7 2.3 - 4.5 mg/dL Blood 03/07/2024 10:2 2 PM AUTO CRANE DRIVER 03/07/2024 11:02 PM AUTO CRANE DRIVER Krysten Cohn MD LAB BLOOD ORDERABLES Final Result Performing Organization Address City/[facility]/ZIP Co de Phone Number [facility] [place] [address] * Magnesium (03/07/2024 10:22 PM AUTO CRANE DRIVER) Pathologist [facility] Magnesium 1.4 1.4 - 2.5 mg/dL Blood 03/07/2024 10:2 2 PM AUTO CRANE DRIVER 03/07/2024 11:02 PM AUTO CRANE DRIVER Krysten Cohn MD LAB BLOOD ORDERABLES Final Result Performing Organization Address [facility] de Phone Number [facility] Department [place] [address] * (ABNORMAL) Comprehensive metabolic panel (03/07/2024 10:22 PM AUTO CRANE DRIVER) Pathologist [facility] Sodium 138 135 - 145 mmol/L Potassium, pl 3.3 3.3 - 4.9 mmol/L [facility] Chloride 101 97 - 110 mmol/L [facility] CO2 29 22 - 32 mmol/L [facility] Anion gap 8 2 - 15 mmol/L [facility] BUN 13 6 - 25 mg/dL [facility] Creatinine 0.70 0.60 - 1.10 mg/dL [facility] Glucose 93 70 - 199 mg/dL [facility] Comment: Interpretive Data Fasting glucose [...] 2022. Calcium 7.7(L) 8.5 - 10.3 mg/dL [facility] Bilirubin, total 0.7 0.1 - 1.2 mg/dL [facility] Protein, pl 5.7(L) 6.5 - 8.5 g/dL [facility] Albumin 2.5(L) 3.5 - 5.0 g/dL [facility] Alk phos 216(H) 40 - 130 Units/L [facility] ALT 14 7 - 45 Units/L [facility] AST 37 10 - 45 Units/L [facility] Blood 03/07/2024 10:2 2 PM AUTO CRANE DRIVER 03/07/2024 11:02 PM AUTO CRANE DRIVER us Krysten Cohn MD LAB BLOOD ORDERABLES Final Result Performing Organization Address [facility] Co de Phone Number [facility] [place] [address] * POCT glucose (03/07/2024 7:39 PM AUTO CRANE DRIVER) Glucose, POC 96 70 - 199 mg/dL Blood 03/07/2024 7:39 PM AUTO CRANE DRIVER 03/07/2024 7:39 PM AUTO CRANE DRIVER us Krysten Cohn MD LAB POCT ORDERABLES - DEVICE Final Result Performing Organization Address [facility] Co de Phone Number [facility] [place] [address] * POCT glucose (03/07/2024 5:48 PM AUTO CRANE DRIVER) Glucose, POC 81 70 - 199 mg/dL Blood 03/07/2024 5:48 PM AUTO CRANE DRIVER 03/07/2024 5:48 PM AUTO CRANE DRIVER Krysten Cohn MD LAB POCT ORDERABLES - DEVICE Final Result Performing Organization Address [facility] Co de Phone Number [facility] [place] [address] * POCT glucose (03/07/2024 11:28 AM AUTO CRANE DRIVER) Glucose, POC 126 70 - 199 mg/dL Blood 03/07/2024 11:2 8 AM AUTO CRANE DRIVER 03/07/2024 11:28 AM AUTO CRANE DRIVER Krysten Cohn MD LAB POCT ORDERABLES - DEVICE Final Result Performing Organization Address City/[facility] Co de Phone Number [facility] [place] [address] * POCT glucose (03/07/2024 7:44 AM AUTO CRANE DRIVER) Glucose, POC 118 70 - 199 mg/dL Blood 03/07/2024 7:44 AM AUTO CRANE DRIVER 03/07/2024 7:44 AM AUTO CRANE DRIVER Krysten Cohn MD LAB POCT ORDERABLES - DEVICE Final Result Performing Organization Address [facility] de Phone Number [facility] [place] [address] * eGFR (03/06/2024 10:05 PM AUTO CRANE DRIVER) eGFR >90 >=60 mL/min/1. 73 m2 Comment: [...] reviewed 2021. Blood 03/06/2024 10:0 5 PM AUTO CRANE DRIVER 03/06/2024 11:51 PM AUTO CRANE DRIVER us Krysten Conh MD LAB BLOOD ORDERABLES Final Result [facility] [place] [address] * (ABNORMAL) Differential, auto (03/06/2024 10:05 PM AUTO CRANE DRIVER) Neutrophil abs 11.3(H) 1.5 - 6.5 K/cumm Imm gran abs 0.5(H) 0.0 - 0.1 K/cumm [facility] Lymphocyte abs 2.1 0.8 - 3.3 K/cumm [facility] Monocyte abs 1.0(H) 0.2 - 0.8 K/cumm [facility] Eosinophil abs 0.1 0.0 - 0.5 K/cumm [facility] Basophil abs 0.1 0.0 - 0.1 K/cumm [facility] Neutrophil pct 75.1 % [facility] Comment: Interpretive Data Percent cell count reference ranges are not reported, since discordance with absolute values may lead to misinterpretation of CBC data. Current Interpretive Data was last revised on 2017. Imm gran pct 3.1 % [facility] Comment: Interpretive Data Percent cell count reference ranges are not reported, since discordance with absolute values may lead to misinterpretation of CBC data. Current Interpretive Data was last revised on 2017. Lymphocyte pct 13.8 % [facility] Comment: Interpretive Data Percent cell count reference ranges are not reported, since discordance with absolute values may lead to misinterpretation of CBC data. Current Interpretive Data was last revised on 2017. Monocyte pct 6.4 % [facility] Comment: Interpretive Data Percent cell count reference ranges are not reported, since discordance with absolute values may lead to misinterpretation of CBC data. Current Interpretive Data was last revised on 2017. Eosinophil pct 0.9 % [facility] Comment: Interpretive Data Percent cell count reference ranges are not reported, since discordance with absolute values may lead to misinterpretation of CBC data. Current Interpretive Data was last revised on 2017. Basophil pct 0.7 % [facility] Comment: Interpretive Data Percent cell count reference ranges are not reported, since discordance with absolute values may lead to misinterpretation of CBC data. Current Interpretive Data was last revised on 2017. Blood 03/06/2024 10:0 5 PM AUTO CRANE DRIVER 03/06/2024 11:52 PM AUTO CRANE DRIVER us Krysten Cohn MD LAB BLOOD ORDERABLES Final Result [facility] [place] [address] * (ABNORMAL) CBC with auto differential (03/06/2024 10:05 PM AUTO CRANE DRIVER) WBC 15.1(H) 3.8 - 9.9 K/cumm Hgb 8.8(L) 11.9 - 15.5 g/dL [facility] Hct 27.9(L) 35.6 - 45.5 % [facility] Plt 338 150 - 400 K/cumm [facility] MPV 10.6 9.1 - 12.3 fL [facility] RBC 2.55(L) 3.90 - 5.20 M/cumm [facility] MCV 109.4(H) 81.3 - 96.4 fL [facility] MCH 34.5(H) 27.1 - 33.3 pg [facility] MCHC 31.5(L) 32.3 - 35.7 g/dL [facility] RDW CV 16.7(H) 11.1 - 14.9 % [facility] RDW SD 62.4(H) 35.7 - 48.1 fL [facility] NRBC abs 0.00 0.00 - 0.01 K/cumm [facility] Blood 03/06/2024 10:0 5 PM AUTO CRANE DRIVER 03/06/2024 11:52 PM AUTO CRANE DRIVER us Krysten Cohn MD LAB BLOOD ORDERABLES Final Result [facility] [place] [address] * Phosphorus (03/06/2024 10:05 PM AUTO CRANE DRIVER) Pathologist [facility] Phosphorus, pl 2.3 2.3 - 4.5 mg/dL Blood 03/06/2024 10:0 5 PM AUTO CRANE DRIVER 03/06/2024 11:51 PM AUTO CRANE DRIVER us Krysten Cohn MD LAB BLOOD ORDERABLES Final Result Performing Organization Address [facility] Co de Phone Number [facility] [place] [address] * Magnesium (03/06/2024 10:05 PM AUTO CRANE DRIVER) [facility] Magnesium 1.5 1.4 - 2.5 mg/dL Blood 03/06/2024 10:0 5 PM AUTO CRANE DRIVER 03/06/2024 11:51 PM AUTO CRANE DRIVER Krysten Cohn MD LAB BLOOD ORDERABLES Final Result Performing Organization Address City/[facility] Co de Phone Number [facility] [place] [address] * (ABNORMAL) Comprehensive metabolic panel (03/06/2024 10:05 PM AUTO CRANE DRIVER) Pathologist [facility] Sodium 139 135 - 145 mmol/L Potassium, pl 3.6 3.3 - 4.9 mmol/L [facility] Chloride 100 97 - 110 mmol/L [facility] CO2 28 22 - 32 mmol/L [facility] Anion gap 11 2 - 15 mmol/L [facility] BUN 15 6 - 25 mg/dL [facility] Creatinine 0.72 0.60 - 1.10 mg/dL [facility] Glucose 87 70 - 199 mg/dL [facility] Comment: Interpretive Data Fasting glucose [...] Calcium 8.2(L) 8.5 - 10.3 mg/dL [facility] Bilirubin, total 0.8 0.1 - 1.2 mg/dL [facility] Protein, pl 6.2(L) 6.5 - 8.5 g/dL [facility] Albumin 2.9(L) 3.5 - 5.0 g/dL [facility] Alk phos 235(H) 40 - 130 Units/L [facility] ALT 19 7 - 45 Units/L [facility] AST 51(H) 10 - 45 Units/L [facility] Blood 03/06/2024 10:0 5 PM AUTO CRANE DRIVER 03/06/2024 11:51 PM AUTO CRANE DRIVER us Krysten Cohn MD LAB BLOOD ORDERABLES Final Result Performing Organization Address [facility] Co de Phone Number [facility] [place] [address] * POCT glucose (03/06/2024 7:31 PM AUTO CRANE DRIVER) [facility] Glucose, POC 123 70 - 199 mg/dL Blood 03/06/2024 7:31 PM AUTO CRANE DRIVER 03/06/2024 7:31 PM AUTO CRANE DRIVER Krysten Cohn MD LAB POCT ORDERABLES - DEVICE Final Result Performing Organization Address [facility]/ZIP Co de Phone Number [facility] [place] [address] * POCT glucose (03/06/2024 5:46 PM AUTO CRANE DRIVER) Glucose, POC 91 70 - 199 mg/dL Blood 03/06/2024 5:46 PM AUTO CRANE DRIVER 03/06/2024 5:46 PM AUTO CRANE DRIVER Krysten Cohn MD LAB POCT ORDERABLES - DEVICE Final Result Performing Organization Address [facility] de Phone Number [facility] [place] [address] * POCT glucose (03/06/2024 11:42 AM AUTO CRANE DRIVER) Glucose, POC 99 70 - 199 mg/dL Blood 03/06/2024 11:4 2 AM AUTO CRANE DRIVER 03/06/2024 11:42 AM AUTO CRANE DRIVER Krysten Cohn MD LAB POCT ORDERABLES - DEVICE Final Result Performing Organization Address [facility] de Phone Number [facility] [place] [address] * POCT glucose (03/06/2024 8:47 AM AUTO CRANE DRIVER) Glucose, POC 89 70 - 199 mg/dL Blood 03/06/2024 8:47 AM AUTO CRANE DRIVER 03/06/2024 8:47 AM AUTO CRANE DRIVER Krysten Cohn MD LAB POCT ORDERABLES - DEVICE Final Result Performing Organization Address [facility] de Phone Number [facility] [place] [address] * Protime-INR (03/05/2024 10:53 PM AUTO CRANE DRIVER) PT 12.7 9.7 - 13.0 sec INR 1.17 0.90 - 1.20 [facility] Comment: Interpretive data Oral anticoagulant therapeutic ranges: Venous thromboembolism prophylaxis or treatment: 2.0-3.0 CARDIOLOGY Standard range: 2.0-3.0 High-intensity range: 2.5-3.5 Refer to indication-specific guidelines for appropriate target ranges for prosthetic heart valve replacement. Current interpretive data was last revised on 2019. Blood 03/05/2024 10:5 3 PM AUTO CRANE DRIVER 03/05/2024 11:20 PM AUTO CRANE DRIVER us Nolvia Renner MD LAB BLOOD ORDERABLES F inal Result Performing Organization Address [facility] Co de Phone Number [facility] [place] [address] * POCT glucose (03/05/2024 8:00 PM AUTO CRANE DRIVER) Glucose, POC 105 70 - 199 mg/dL Blood 03/05/2024 8:00 PM AUTO CRANE DRIVER 03/05/2024 8:00 PM AUTO CRANE DRIVER us Krysten Cohn MD LAB POCT ORDERABLES - DEVICE Final Result Performing Organization Address [facility] de Phone Number [facility] [place] [address] * eGFR (03/05/2024 7:52 PM AUTO CRANE DRIVER) eGFR >90 >=60 mL/min/1. 73 m2 Comment: [...] last reviewed 2021. Blood 03/05/2024 7:52 PM AUTO CRANE DRIVER 03/05/2024 10:21 PM AUTO CRANE DRIVER us Krysten Cohn MD LAB BLOOD ORDERABLES Final Result [facility] [place] [address] * (ABNORMAL) Differential, auto (03/05/2024 7:52 PM AUTO CRANE DRIVER) Neutrophil abs 12.6(H) 1.5 - 6.5 K/cumm Imm gran abs 0.8(H) 0.0 - 0.1 K/cumm [facility] Lymphocyte abs 2.4 0.8 - 3.3 K/cumm [facility] Monocyte abs 0.9(H) 0.2 - 0.8 K/cumm [facility] Eosinophil abs 0.1 0.0 - 0.5 K/cumm [facility] Basophil abs 0.1 0.0 - 0.1 K/cumm [facility] Neutrophil pct 74.5 % [facility] Comment: Interpretive Data Percent cell count reference ranges are not reported, since discordance with absolute values may lead to misinterpretation of CBC data. Current Interpretive Data was last revised on 2017. Imm gran pct 4.7 % [facility] Comment: Interpretive Data Percent cell count reference ranges are not reported, since discordance with absolute values may lead to misinterpretation of CBC data. Current Interpretive Data was last revised on 2017. Lymphocyte pct 14.2 % [facility] Comment: Interpretive Data Percent cell count reference ranges are not reported, since discordance with absolute values may lead to misinterpretation of CBC data. Current Interpretive Data was last revised on 2017. Monocyte pct 5.4 % [facility] Comment: Interpretive Data Percent cell count reference ranges are not reported, since discordance with absolute values may lead to misinterpretation of CBC data. Current Interpretive Data was last revised on 2017. Eosinophil pct 0.7 % [facility] Comment: Interpretive Data Percent cell count reference ranges are not reported, since discordance with absolute values may lead to misinterpretation of CBC data. Current Interpretive Data was last revised on 2017. Basophil pct 0.5 % [facility] Comment: Interpretive Data Percent cell count reference ranges are not reported, since discordance with absolute values may lead to misinterpretation of CBC data. Current Interpretive Data was last revised on 2017. Blood 03/05/2024 7:52 PM AUTO CRANE DRIVER 03/05/2024 10:23 PM AUTO CRANE DRIVER us Krysten Cohn MD LAB BLOOD ORDERABLES Final Result [facility] [place] [address] * (ABNORMAL) CBC with auto differential (03/05/2024 7:52 PM AUTO CRANE DRIVER) WBC 16.9(H) 3.8 - 9.9 K/cumm Hgb 9.2(L) 11.9 - 15.5 g/dL [facility] Hct 28.9(L) 35.6 - 45.5 % [facility] Plt 364 150 - 400 K/cumm [facility] MPV 10.8 9.1 - 12.3 fL [facility] RBC 2.67(L) 3.90 - 5.20 M/cumm [facility] MCV 108.2(H) 81.3 - 96.4 fL [facility] MCH 34.5(H) 27.1 - 33.3 pg [facility] MCHC 31.8(L) 32.3 - 35.7 g/dL [facility] RDW CV 16.8(H) 11.1 - 14.9 % [facility] RDW SD 61.3(H) 35.7 - 48.1 fL [facility] NRBC abs 0.03(H) 0.00 - 0.01 K/cumm [facility] Blood 03/05/2024 7:52 PM AUTO CRANE DRIVER 03/05/2024 10:23 PM AUTO CRANE DRIVER us Krysten Cohn MD LAB BLOOD ORDERABLES Final Result Performing Organization Address [facility] Co de Phone Number [facility] [place] [address] * Phosphorus (03/05/2024 7:52 PM AUTO CRANE DRIVER) [facility] Phosphorus, pl 2.3 2.3 - 4.5 mg/dL Blood 03/05/2024 7:52 PM AUTO CRANE DRIVER 03/05/2024 10:21 PM AUTO CRANE DRIVER us Krysten Cohn MD LAB BLOOD ORDERABLES Final Result Performing Organization Address [facility] Co de Phone Number [facility] [place] [address] * Magnesium (03/05/2024 7:52 PM AUTO CRANE DRIVER) [facility] Magnesium 1.5 1.4 - 2.5 mg/dL Blood 03/05/2024 7:52 PM AUTO CRANE DRIVER 03/05/2024 10:21 PM AUTO CRANE DRIVER us Krysten Cohn MD LAB BLOOD ORDERABLES Final Result Performing Organization Address [facility] [place] [address] * (ABNORMAL) Comprehensive metabolic panel (03/05/2024 7:52 PM AUTO CRANE DRIVER) [facility] Sodium 142 135 - 145 mmol/L Potassium, pl 3.4 3.3 - 4.9 mmol/L [facility] Chloride 99 97 - 110 mmol/L [facility] CO2 29 22 - 32 mmol/L [facility] Anion gap 14 2 - 15 mmol/L [facility] BUN 18 6 - 25 mg/dL [facility] Creatinine 0.68 0.60 - 1.10 mg/dL [facility] Glucose 96 70 - 199 mg/dL [facility] Comment: Interpretive Data Fasting glucose [...] 2022. Calcium 8.1(L) 8.5 - 10.3 mg/dL [facility] Bilirubin, total 0.9 0.1 - 1.2 mg/dL [facility] Protein, pl 6.5 6.5 - 8.5 g/dL [facility] Albumin 3.2(L) 3.5 - 5.0 g/dL [facility] Alk phos 267(H) 40 - 130 Units/L [facility] ALT 40 7 - 45 Units/L [facility] AST 78(H) 10 - 45 Units/L [facility] Blood 03/05/2024 7:52 PM AUTO CRANE DRIVER 03/05/2024 10:21 PM AUTO CRANE DRIVER Krysten Cohn MD LAB BLOOD ORDERABLES Final Result Performing Organization Address [facility] Co de Phone Number [facility] [place] [address] * POCT glucose (03/05/2024 5:07 PM AUTO CRANE DRIVER) [facility] Glucose, POC 100 70 - 199 mg/dL Blood 03/05/2024 5:07 PM AUTO CRANE DRIVER 03/05/2024 5:07 PM AUTO CRANE DRIVER Krysten Cohn MD LAB POCT ORDERABLES - DEVICE Final Result Performing Organization Address [facility]/ZIP Co de Phone Number [facility] [place] [address] * POCT glucose (03/05/2024 11:39 AM AUTO CRANE DRIVER) Glucose, POC 121 70 - 199 mg/dL Blood 03/05/2024 11:3 9 AM AUTO CRANE DRIVER 03/05/2024 11:39 AM AUTO CRANE DRIVER Krysten Cohn MD LAB POCT ORDERABLES - DEVICE Final Result Performing Organization Address [facility] Co de Phone [facility] [place] [address] * POCT glucose (03/05/2024 8:03 AM AUTO CRANE DRIVER) Glucose, POC 119 70 - 199 mg/dL Blood 03/05/2024 8:03 AM AUTO CRANE DRIVER 03/05/2024 8:03 AM AUTO CRANE DRIVER Krysten Cohn MD LAB POCT ORDERABLES - DEVICE Final Result Performing Organization Address [facility] de Phone Number [facility] [place] [address] * eGFR (2024 10:39 PM AUTO CRANE DRIVER) eGFR >90 >=60 mL/min/1. 73 m2 Comment: [...] reviewed 2021. Blood 2024 10:3 9 PM AUTO CRANE DRIVER 2024 11:44 PM AUTO CRANE DRIVER us Krysten Cohn MD LAB BLOOD ORDERABLES Final Result [facility] [place] [address] * (ABNORMAL) Differential, auto (2024 10:39 PM AUTO CRANE DRIVER) Neutrophil abs 12.9(H) 1.5 - 6.5 K/cumm Imm gran abs 1.3(H) 0.0 - 0.1 K/cumm [facility] Lymphocyte abs 2.3 0.8 - 3.3 K/cumm [facility] Monocyte abs 1.0(H) 0.2 - 0.8 K/cumm [facility] Eosinophil abs 0.1 0.0 - 0.5 K/cumm [facility] Basophil abs 0.1 0.0 - 0.1 K/cumm [facility] Neutrophil pct 73.1 % [facility] Comment: Interpretive Data Percent cell count reference ranges are not reported, since discordance with absolute values may lead to misinterpretation of CBC data. Current Interpretive Data was last revised on 2017. Imm gran pct 7.4 % [facility] Comment: Interpretive Data Percent cell count reference ranges are not reported, since discordance with absolute values may lead to misinterpretation of CBC data. Current Interpretive Data was last revised on 2017. Lymphocyte pct 12.8 % [facility] Comment: Interpretive Data Percent cell count reference ranges are not reported, since discordance with absolute values may lead to misinterpretation of CBC data. Current Interpretive Data was last revised on 2017. Monocyte pct 5.4 % [facility] Comment: Interpretive Data Percent cell count reference ranges are not reported, since discordance with absolute values may lead to misinterpretation of CBC data. Current Interpretive Data was last revised on 2017. Eosinophil pct 0.7 % [facility] Comment: Interpretive Data Percent cell count reference ranges are not reported, since discordance with absolute values may lead to misinterpretation of CBC data. Current Interpretive Data was last revised on 2017. Basophil pct 0.6 % [facility] Comment: Interpretive Data Percent cell count reference ranges are not reported, since discordance with absolute values may lead to misinterpretation of CBC data. Current Interpretive Data was last revised on 2017. Blood 2024 10:3 9 PM AUTO CRANE DRIVER 2024 11:44 PM AUTO CRANE DRIVER us Krysten Cohn MD LAB BLOOD ORDERABLES Final Result [facility] [place] [address] * (ABNORMAL) CBC with auto differential (2024 10:39 PM AUTO CRANE DRIVER) WBC 17.6(H) 3.8 - 9.9 K/cumm Hgb 8.6(L) 11.9 - 15.5 g/dL [facility] Hct 27.3(L) 35.6 - 45.5 % [facility] Plt 305 150 - 400 K/cumm [facility] MPV 10.6 9.1 - 12.3 fL [facility] RBC 2.51(L) 3.90 - 5.20 M/cumm [facility] MCV 108.8(H) 81.3 - 96.4 fL [facility] MCH 34.3(H) 27.1 - 33.3 pg [facility] MCHC 31.5(L) 32.3 - 35.7 g/dL [facility] RDW CV 16.6(H) 11.1 - 14.9 % [facility] RDW SD 60.0(H) 35.7 - 48.1 fL [facility] NRBC abs 0.06(H) 0.00 - 0.01 K/cumm [facility] Blood 2024 10:3 9 PM AUTO CRANE DRIVER 2024 11:44 PM AUTO CRANE DRIVER Krysten Cohn MD LAB BLOOD ORDERABLES Final Result Performing Organization Address [facility] de Phone Number [facility] [place] [address] * Protime-INR (2024 10:39 PM AUTO CRANE DRIVER) PT 11.8 9.7 - 13.0 sec INR 1.09 0.90 - 1.20 [facility] Comment: Interpretive data Oral anticoagulant therapeutic ranges: Venous thromboembolism prophylaxis or treatment: 2.0-3.0 CARDIOLOGY Standard range: 2.0-3.0 High-intensity range: 2.5-3.5 Refer to indication-specific guidelines for appropriate target ranges for prosthetic heart valve replacement. Current interpretive data was last revised on 2019. Blood 2024 10:3 9 PM AUTO CRANE DRIVER 03/05/2024 12:06 AM AUTO CRANE DRIVER us Krysten Cohn MD LAB BLOOD ORDERABLES Final Result Performing Organization Address [facility] [place] [address] * Phosphorus (2024 10:39 PM AUTO CRANE DRIVER) Pathologist [facility] Phosphorus, pl 2.3 2.3 - 4.5 mg/dL Blood 2024 10:3 9 PM AUTO CRANE DRIVER 2024 11:44 PM AUTO CRANE DRIVER Krysten Cohn MD LAB BLOOD ORDERABLES Final Result Performing Organization Address [facility] de Phone Number [facility] [place] [address] * (ABNORMAL) Magnesium (2024 10:39 PM AUTO CRANE DRIVER) Pathologist [facility] Magnesium 1.3(L) 1.4 - 2.5 mg/dL Blood 2024 10:3 9 PM AUTO CRANE DRIVER 2024 11:44 PM AUTO CRANE DRIVER us Krysten Cohn MD LAB BLOOD ORDERABLES Final Result [facility] [place] [address] * (ABNORMAL) Comprehensive metabolic panel (2024 10:39 PM AUTO CRANE DRIVER) Sodium 140 135 - 145 mmol/L Potassium, pl 3.2(L) 3.3 - 4.9 mmol/L [facility] Chloride 100 97 - 110 mmol/L [facility] CO2 28 22 - 32 mmol/L [facility] Anion gap 12 2 - 15 mmol/L [facility] BUN 18 6 - 25 mg/dL [facility] Creatinine 0.63 0.60 - 1.10 mg/dL [facility] Glucose 112 70 - 199 mg/dL [facility] Comment: Interpretive Data Fasting glucose [...] Calcium 8.0(L) 8.5 - 10.3 mg/dL [facility] Bilirubin, total 0.9 0.1 - 1.2 mg/dL [facility] Protein, pl 6.1(L) 6.5 - 8.5 g/dL [facility] Albumin 2.7(L) 3.5 - 5.0 g/dL [facility] Alk phos 235(H) 40 - 130 Units/L [facility] ALT 28 7 - 45 Units/L [facility] AST 110(H) 10 - 45 Units/L [facility] Blood 2024 10:3 9 PM AUTO CRANE DRIVER 2024 11:44 PM AUTO CRANE DRIVER us Krysten Cohn MD LAB BLOOD ORDERABLES Final Result Performing Organization Address [facility] Co de Phone Number [facility] [place] [address] * POCT glucose (2024 8:09 PM AUTO CRANE DRIVER) Glucose, POC 102 70 - 199 mg/dL Blood 2024 8:09 PM AUTO CRANE DRIVER 2024 8:09 PM AUTO CRANE DRIVER us Krysten Cohn MD LAB POCT ORDERABLES - DEVICE Final Result Performing Organization Address [facility] de Phone Number [facility] [place] [address] * POCT glucose (2024 4:43 PM AUTO CRANE DRIVER) Glucose, POC 91 70 - 199 mg/dL Blood 2024 4:43 PM AUTO CRANE DRIVER 2024 4:43 PM AUTO CRANE DRIVER us Krysten Cohn MD LAB POCT ORDERABLES - DEVICE Final Result Performing Organization Address [facility] de Phone Number [facility] [place] [address] * POCT glucose (2024 12:06 PM AUTO CRANE DRIVER) Glucose, POC 133 70 - 199 mg/dL Blood 2024 12:0 6 PM AUTO CRANE DRIVER 2024 12:06 PM AUTO CRANE DRIVER Krysten Cohn MD LAB POCT ORDERABLES - DEVICE Final Result Performing Organization Address [facility] Co de Phone Number [facility] [place] [address] * POCT glucose (2024 8:37 AM AUTO CRANE DRIVER) Pathologist [facility] Glucose, POC 141 70 - 199 mg/dL Blood 2024 8:37 AM AUTO CRANE DRIVER 2024 8:37 AM AUTO CRANE DRIVER us Krytsen Cohn MD LAB POCT ORDERABLES - DEVICE Final Result Performing Organization Address City/[facility]/ZIP Co [place] [address] * eGFR (03/03/2024 10:26 PM AUTO CRANE DRIVER) [facility] eGFR >90 >=60 mL/min/1. 73 m2 [...] reviewed 2021. Blood 03/03/2024 10:2 6 PM AUTO CRANE DRIVER 2024 12:35 AM AUTO CRANE DRIVER us Krysten Cohn MD LAB BLOOD ORDERABLES Final Result [facility] [place] [address] * (ABNORMAL) CBC with auto differential (03/03/2024 10:26 PM AUTO CRANE DRIVER) [facility] WBC 18.2(H) 3.8 - 9.9 K/cumm Hgb 8.3(L) 11.9 - 15.5 g/dL [facility] Hct 25.7(L) 35.6 - 45.5 % [facility] Plt 276 150 - 400 K/cumm [facility] MPV 10.8 9.1 - 12.3 fL [facility] RBC 2.44(L) 3.90 - 5.20 M/cumm [facility] MCV 105.3(H) 81.3 - 96.4 fL [facility] MCH 34.0(H) 27.1 - 33.3 pg [facility] MCHC 32.3 32.3 - 35.7 g/dL [facility] RDW CV 15.8(H) 11.1 - 14.9 % [facility] RDW SD 59.4(H) 35.7 - 48.1 fL [facility] NRBC abs 0.19(H) 0.00 - 0.01 K/cumm [facility] Blood 03/03/2024 10:2 6 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 2024 1:21 AM AUTO CRANE DRIVER us Krysten Cohn MD LAB BLOOD ORDERABLES Final Result [facility] [place] [address] * (ABNORMAL) Manual Differential (03/03/2024 10:26 PM AUTO CRANE DRIVER) [facility] Differential Manual Cells Counted 116 [facility] Neutrophil abs 14.0(H) 1.5 - 6.5 K/cumm [facility] Imm gran abs 0.8(H) 0.0 - 0.1 K/cumm [facility] Lymphocyte abs 2.5 0.8 - 3.3 K/cumm [facility] Monocyte abs 0.8 0.2 - 0.8 K/cumm [facility] Basophil abs 0.2(H) 0.0 - 0.1 K/cumm [facility] Neutrophil pct 76.7 % [facility] Comment: Interpretive Data Percent cell count reference ranges are not reported, since discordance with absolute values may lead to misinterpretation of CBC data. Current Interpretive Data was last revised on 2017. Lymphocyte pct 13.8 % [facility] Comment: Interpretive Data Percent cell count reference ranges are not reported, since discordance with absolute values may lead to misinterpretation of CBC data. Current Interpretive Data was last revised on 2017. Monocyte pct 4.3 % [facility] Comment: Interpretive Data Percent cell count reference ranges are not reported, since discordance with absolute values may lead to misinterpretation of CBC data. Current Interpretive Data was last revised on 2017. Basophil pct 0.9 % [facility] Comment: Interpretive Data Percent cell count reference ranges are not reported, since discordance with absolute values may lead to misinterpretation of CBC data. Current Interpretive Data was last revised on 2017. Myelocyte pct 4.3 % [facility] RBC morphology Present(A) [facility] Anisocytosis Marked(A) [facility] Macrocytes > 15/HPF(A) [facility] Platelet estimate Adequate [facility] Blood 03/03/2024 10:2 6 PM AUTO CRANE DRIVER 2024 1:25 AM AUTO CRANE DRIVER us Krysten Cohn MD LAB BLOOD ORDERABLES Final Result Performing Organization Address City/State/[facility] Co de Phone Number [facility] [place] [address] * Protime-INR (03/03/2024 10:26 PM AUTO CRANE DRIVER) PT 12.2 9.7 - 13.0 sec INR 1.13 0.90 - 1.20 [facility] Comment: Interpretive data Oral anticoagulant therapeutic ranges: Venous thromboembolism prophylaxis or treatment: 2.0-3.0 CARDIOLOGY Standard range: 2.0-3.0 High-intensity range: 2.5-3.5 Refer to indication-specific guidelines for appropriate target ranges for prosthetic heart valve replacement. Current interpretive data was last revised on 2019. Blood 03/03/2024 10:2 6 PM AUTO CRANE DRIVER 2024 12:35 AM AUTO CRANE DRIVER Krysten Cohn MD LAB BLOOD ORDERABLES Final Result Performing Organization Address [facility] Co de Phone Number [facility] [place] [address] * (ABNORMAL) Phosphorus (03/03/2024 10:26 PM AUTO CRANE DRIVER) [facility] Phosphorus, pl 2.2(L) 2.3 - 4.5 mg/dL Blood 03/03/2024 10:2 6 PM AUTO CRANE DRIVER 2024 12:35 AM AUTO CRANE DRIVER us Krysten Cohn MD LAB BLOOD ORDERABLES Final Result Performing Organization Address [facility] de Phone Number [facility] [place] [address] * Magnesium (03/03/2024 10:26 PM AUTO CRANE DRIVER) [facility] Magnesium 1.5 1.4 - 2.5 mg/dL Blood 03/03/2024 10:2 6 PM AUTO CRANE DRIVER 2024 12:35 AM AUTO CRANE DRIVER Krysten Cohn MD LAB BLOOD ORDERABLES Final Result Performing Organization Address [facility] [place] [address] * (ABNORMAL) Comprehensive metabolic panel (03/03/2024 10:26 PM AUTO CRANE DRIVER) [facility] Sodium 143 135 - 145 mmol/L Potassium, pl 3.5 3.3 - 4.9 mmol/L [facility] Chloride 102 97 - 110 mmol/L [facility] CO2 28 22 - 32 mmol/L [facility] Anion gap 13 2 - 15 mmol/L [facility] BUN 28(H) 6 - 25 mg/dL [facility] Creatinine 0.68 0.60 - 1.10 mg/dL [facility] Glucose 103 70 - 199 mg/dL [facility] Comment: Interpretive Data Fasting glucose [...] 2022. Calcium 8.0(L) 8.5 - 10.3 mg/dL [facility] Bilirubin, total 0.7 0.1 - 1.2 mg/dL [facility] Protein, pl 5.9(L) 6.5 - 8.5 g/dL [facility] Albumin 2.7(L) 3.5 - 5.0 g/dL [facility] Alk phos 216(H) 40 - 130 Units/L [facility] ALT 42 7 - 45 Units/L [facility] AST 202(H) 10 - 45 Units/L [facility] Blood 03/03/2024 10:2 6 PM AUTO CRANE DRIVER 2024 12:35 AM AUTO CRANE DRIVER us Krysten Cohn MD LAB BLOOD ORDERABLES Final Result [facility] Department [place] [address] * POCT glucose (03/03/2024 8:17 PM AUTO CRANE DRIVER) Glucose, POC 146 70 - 199 mg/dL Blood 03/03/2024 8:17 PM AUTO CRANE DRIVER 03/03/2024 8:17 PM AUTO CRANE DRIVER us Krysten Cohn MD LAB POCT ORDERABLES - DEVICE Final Result Performing Organization Address City/[facility]/ZIP Co de Phone Number MADELEINE DEY [facility] [place] [address] * XR Chest 1 View (03/03/2024 7:14 PM AUTO CRANE DRIVER) Anatomical Region Laterality Modality Body, Chest N/A Computed Radiogr aphy 2024 11:3 2 AM AUTO CRANE DRIVER Impressions 2024 11:32 AM AUTO CRANE DRIVER Comparison 02/23/2024 5:17 PM. Right internal jugular central venous catheter has been removed. Minimal right basilar atelectasis or scarring again seen. Mild elevation the right hemidiaphragm again noted. The lungs otherwise are clear without focal consolidation or pulmonary edema. No pneumothorax or pleural effusion seen. Electronically signed by: Nolberto Garsia M.D. Narrative 2024 11:32 AM AUTO CRANE DRIVER EXAMINATION: 1 view chest radiograph Procedure Note [...] Result * POCT glucose (03/03/2024 5:47 PM AUTO CRANE DRIVER) Glucose, POC 120 70 - 199 mg/dL Blood 03/03/2024 5:47 PM AUTO CRANE DRIVER 03/03/2024 5:47 PM AUTO CRANE DRIVER us Krysten Cohn MD LAB POCT ORDERABLES - DEVICE Final Result Performing Organization Address City/[facility]/ZIP Co de Phone Number MADELEINE Mckeon [facility] [place] [address] * POCT glucose (03/03/2024 12:17 PM AUTO CRANE DRIVER) Glucose, POC 149 70 - 199 mg/dL Blood 03/03/2024 12:1 7 PM AUTO CRANE DRIVER 03/03/2024 12:17 PM AUTO CRANE DRIVER us Krysten Cohn MD LAB POCT ORDERABLES - DEVICE Final Result Performing Organization Address City/[facility] [place] [address] * POCT glucose (03/03/2024 8:09 AM AUTO CRANE DRIVER) Glucose, POC 118 70 - 199 mg/dL Blood 03/03/2024 8:09 AM AUTO CRANE DRIVER 03/03/2024 8:09 AM AUTO CRANE DRIVER us Krysten Cohn MD LAB POCT ORDERABLES - DEVICE Final Result Performing Organization Address City/[facility] [place] [address] * POCT glucose (03/02/2024 11:51 PM AUTO CRANE DRIVER) Glucose, POC 112 70 - 199 mg/dL Blood 03/02/2024 11:5 1 PM AUTO CRANE DRIVER 03/02/2024 11:51 PM AUTO CRANE DRIVER us Krysten Cohn MD LAB POCT ORDERABLES - DEVICE Final Result Performing Organization Address City/[facility] [place] [address] * Critical Care (03/02/2024 9:58 PM AUTO CRANE DRIVER) Narrative Gloria Schwarz MD - 03/02/2024 9:58 PM AUTO CRANE DRIVER Gloria Schwarz MD 03/02/2024 9:59 PM Critical [...] plan with the patient's team and other medical/risk consultant staff. This time was in addition to and separate from care provided by other practitioners on this day of service. us Gloria Schwarz MD IN CLINIC/BEDSIDE ORDER DELFINA Final Result * Wound Care (03/02/2024 9:07 PM AUTO CRANE DRIVER) Narrative Nafisa Sanchez MD - 03/02/2024 9:07 PM AUTO CRANE DRIVER Nafisa Sanchez MD 03/02/2024 9:27 PM Wound Care Date/Time: 03/02/2024 9:07 PM Performed by: Nafisa Sanchez MD Authorized by: Nafisa Sanchez MD Consent: Consent obtained: Written Consent given by: Patient Risks, benefits, and alternatives were discussed: yes Risks discussed: Bleeding, infection and incomplete drainage Alternatives discussed: Delayed treatment and no treatment [place] protocol: Procedure explained and questions answered to [...] - Final * Protime-INR (03/02/2024 8:45 PM AUTO CRANE DRIVER) PT 12.6 9.7 - 13.0 sec INR 1.16 0.90 - 1.20 [facility] Comment: Interpretive data Oral anticoagulant therapeutic ranges: Venous thromboembolism prophylaxis or treatment: 2.0-3.0 CARDIOLOGY Standard range: 2.0-3.0 High-intensity range: 2.5-3.5 Refer to indication-specific guidelines for appropriate target ranges for prosthetic heart valve replacement. Current interpretive data was last revised on 2019. Blood 03/02/2024 8:45 PM AUTO CRANE DRIVER 03/02/2024 9:00 PM AUTO CRANE DRIVER Krysten Cohn MD LAB BLOOD ORDERABLES Final Result Performing Organization Address [facility] Co de Phone Number [facility] [place] [address] * POCT glucose (03/02/2024 8:01 PM AUTO CRANE DRIVER) Glucose, POC 107 70 - 199 mg/dL Blood 03/02/2024 8:01 PM AUTO CRANE DRIVER 03/02/2024 8:01 PM AUTO CRANE DRIVER Krysten Cohn MD LAB POCT ORDERABLES - DEVICE Final Result Performing Organization Address [facility] Co de Phone Number [facility] [place] [address] * eGFR (03/02/2024 7:12 PM AUTO CRANE DRIVER) Pathologist [facility] eGFR 67 >=60 mL/min/1. 73 m2 Comment: [...] last reviewed 2021. Blood 03/02/2024 7:12 PM AUTO CRANE DRIVER 03/02/2024 7:25 PM AUTO CRANE DRIVER us Krysten Cohn MD LAB BLOOD ORDERABLES Final Result [facility] [place] [address] * (ABNORMAL) Differential, auto (03/02/2024 7:12 PM AUTO CRANE DRIVER) Pathologist [facility] Neutrophil abs 13.0(H) 1.5 - 6.5 K/cumm Imm gran abs 3.0(H) 0.0 - 0.1 K/cumm [facility] Lymphocyte abs 2.3 0.8 - 3.3 K/cumm [facility] Monocyte abs 1.3(H) 0.2 - 0.8 K/cumm [facility] Eosinophil abs 0.1 0.0 - 0.5 K/cumm [facility] Basophil abs 0.1 0.0 - 0.1 K/cumm [facility] Neutrophil pct 65.9 % [facility] Comment: Confirmed by smear review Interpretive Data Percent cell count reference ranges are not reported, since discordance with absolute values may lead to misinterpretation of CBC data. Current Interpretive Data was last revised on 2017. Imm gran pct 15.1 % MADELEINE [facility] Comment: Interpretive Data Percent cell count reference ranges are not reported, since discordance with absolute values may lead to misinterpretation of CBC data. Current Interpretive Data was last revised on 2017. Lymphocyte pct 11.6 % MADELEINE [facility] Comment: Interpretive Data Percent cell count reference ranges are not reported, since discordance with absolute values may lead to misinterpretation of CBC data. Current Interpretive Data was last revised on 2017. Monocyte pct 6.6 % [facility] Comment: Interpretive Data Percent cell count reference ranges are not reported, since discordance with absolute values may lead to misinterpretation of CBC data. Current Interpretive Data was last revised on 2017. Eosinophil pct 0.4 % [facility] Comment: Interpretive Data Percent cell count reference ranges are not reported, since discordance with absolute values may lead to misinterpretation of CBC data. Current Interpretive Data was last revised on 2017. Basophil pct 0.4 % [facility] Comment: Interpretive Data Percent cell count reference ranges are not reported, since discordance with absolute values may lead to misinterpretation of CBC data. Current Interpretive Data was last revised on 2017. Blood 03/02/2024 7:12 PM AUTO CRANE DRIVER 03/02/2024 7:25 PM AUTO CRANE DRIVER us Krysten Cohn MD LAB BLOOD ORDERABLES Final Result MADELEINE [facility] Department of Laboratories [place], [place] [id number] * (ABNORMAL) CBC with auto differential (03/02/2024 7:12 PM AUTO CRANE DRIVER) WBC 19.6(H) 3.8 - 9.9 K/cumm Hgb 8.9(L) 11.9 - 15.5 g/dL [facility] Hct 27.5(L) 35.6 - 45.5 % [facility] Plt 219 150 - 400 K/cumm [facility] MPV 10.7 9.1 - 12.3 fL [facility] RBC 2.64(L) 3.90 - 5.20 M/cumm [facility] MCV 104.2(H) 81.3 - 96.4 fL [facility] MCH 33.7(H) 27.1 - 33.3 pg [facility] MCHC 32.4 32.3 - 35.7 g/dL [facility] RDW CV 15.5(H) 11.1 - 14.9 % [facility] RDW SD 58.7(H) 35.7 - 48.1 fL [facility] NRBC abs 0.43(H) 0.00 - 0.01 K/cumm [facility] Blood 03/02/2024 7:12 PM AUTO CRANE DRIVER 03/02/2024 7:25 PM AUTO CRANE DRIVER us Krysten Cohn MD LAB BLOOD ORDERABLES Final Result [facility] [place] [address] * Phosphorus (03/02/2024 7:12 PM AUTO CRANE DRIVER) Phosphorus, pl 2.6 2.3 - 4.5 mg/dL Blood 03/02/2024 7:12 PM AUTO CRANE DRIVER 03/02/2024 7:25 PM AUTO CRANE DRIVER us Krysten Cohn MD LAB BLOOD ORDERABLES Final Result [facility] [place] [address] * Magnesium (03/02/2024 7:12 PM AUTO CRANE DRIVER) Magnesium 2.2 1.4 - 2.5 mg/dL Blood 03/02/2024 7:12 PM AUTO CRANE DRIVER 03/02/2024 7:25 PM AUTO CRANE DRIVER us Krysten Cohn MD LAB BLOOD ORDERABLES Final Result [facility] Department [place] [address] * (ABNORMAL) Comprehensive metabolic panel (03/02/2024 7:12 PM AUTO CRANE DRIVER) Sodium 139 135 - 145 mmol/L Potassium, pl 3.5 3.3 - 4.9 mmol/L [facility] Chloride 97 97 - 110 mmol/L [facility] CO2 30 22 - 32 mmol/L [facility] Anion gap 12 2 - 15 mmol/L [facility] BUN 39(H) 6 - 25 mg/dL [facility] Creatinine 1.00 0.60 - 1.10 mg/dL [facility] Glucose 140 70 - 199 mg/dL [facility] Comment: Interpretive Data Fasting glucose [...] Calcium 8.2(L) 8.5 - 10.3 mg/dL [facility] Bilirubin, total 0.7 0.1 - 1.2 mg/dL [facility] Protein, pl 6.0(L) 6.5 - 8.5 g/dL [facility] Albumin 2.9(L) 3.5 - 5.0 g/dL [facility] Alk phos 259(H) 40 - 130 Units/L [facility] ALT 77(H) 7 - 45 Units/L [facility] AST 512(H) 10 - 45 Units/L [facility] Blood 03/02/2024 7:12 PM AUTO CRANE DRIVER 03/02/2024 7:25 PM AUTO CRANE DRIVER us Krysten Cohn MD LAB BLOOD ORDERABLES Final Result [facility] [place] [address] * XR Chest 1 View (03/02/2024 5:39 PM AUTO CRANE DRIVER) Anatomical Region Laterality Modality Body, Chest N/A Computed Radiogr aphy 03/02/2024 7:36 PM AUTO CRANE DRIVER Impressions 03/02/2024 7:36 PM AUTO CRANE DRIVER The current study is compared with the prior radiograph dated 03/01/2024. Right internal jugular central venous catheter tip projects over the superior vena cava. The lungs are clear. There is no focal consolidation, pleural effusion, or pulmonary edema. There is no pneumothorax. Heart size and mediastinal contours are normal. Electronically signed by: Panda Vasquez MD, PHD Narrative 03/02/2024 7:36 PM AUTO CRANE DRIVER EXAMINATION: 1 view chest radiograph Procedure Note [...] Result * Critical Care (03/02/2024 5:11 PM AUTO CRANE DRIVER) Narrative Luis Alberto Maya MD PhD - 03/02/2024 5:11 PM AUTO CRANE DRIVER Luis Alberto Maya MD PhD 03/02/2024 5:13 [...] plan with the ICU team and other medical/risk consultant staff, making frequent assessments and decisions [...] Result * POCT glucose (03/02/2024 3:14 PM AUTO CRANE DRIVER) Glucose, POC 129 70 - 199 mg/dL Blood 03/02/2024 3:14 PM AUTO CRANE DRIVER 03/02/2024 3:14 PM AUTO CRANE DRIVER us Krysten Cohn MD LAB POCT ORDERABLES - DEVICE Final Result [place] [facility] Department [place] [address] * eGFR (03/02/2024 2:19 PM AUTO CRANE DRIVER) eGFR 68 >=60 mL/min/1. 73 m2 Comment: [...] last reviewed 2021. Blood 03/02/2024 2:19 PM AUTO CRANE DRIVER 03/02/2024 2:34 PM AUTO CRANE DRIVER Fatmata Golden MEDICAL TECHNICAL WRITER LAB BLOOD ORDERABLES Final Result [facility] [place] [address] * Phosphorus (03/02/2024 2:19 PM AUTO CRANE DRIVER) Phosphorus, pl 2.4 2.3 - 4.5 mg/dL Blood 03/02/2024 2:19 PM AUTO CRANE DRIVER 03/02/2024 2:34 PM AUTO CRANE DRIVER Fatmata Golden MEDICAL TECHNICAL WRITER LAB BLOOD ORDERABLES Final Result MADELEINE [facility] [place] [address] * Magnesium (03/02/2024 2:19 PM AUTO CRANE DRIVER) Magnesium 1.9 1.4 - 2.5 mg/dL Blood 03/02/2024 2:19 PM AUTO CRANE DRIVER 03/02/2024 2:34 PM AUTO CRANE DRIVER Fatmata Golden MEDICAL TECHNICAL WRITER LAB BLOOD ORDERABLES Final Result [facility] [place] [address] * (ABNORMAL) Basic metabolic panel (03/02/2024 2:19 PM AUTO CRANE DRIVER) [facility] Sodium 140 135 - 145 mmol/L Potassium, pl 3.5 3.3 - 4.9 mmol/L [facility] Chloride 98 97 - 110 mmol/L [facility] CO2 29 22 - 32 mmol/L [facility] Anion gap 13 2 - 15 mmol/L [facility] BUN 40(H) 6 - 25 mg/dL [facility] Creatinine 0.98 0.60 - 1.10 mg/dL [facility] Glucose 133 70 - 199 mg/dL [facility] Comment: Interpretive Data Fasting glucose [...] 2022. Calcium 8.3(L) 8.5 - 10.3 mg/dL [facility] Blood 03/02/2024 2:19 PM AUTO CRANE DRIVER 03/02/2024 2:34 PM AUTO CRANE DRIVER Fatmata Golden MEDICAL TECHNICAL WRITER LAB BLOOD ORDERABLES Final Result Performing Organization Address [facility] Co de Phone Number [facility] [place] [address] * POCT glucose (03/02/2024 11:11 AM AUTO CRANE DRIVER) Glucose, POC 106 70 - 199 mg/dL Blood 03/02/2024 11:1 1 AM AUTO CRANE DRIVER 03/02/2024 11:11 AM AUTO CRANE DRIVER us Krysten Cohn MD LAB POCT ORDERABLES - DEVICE Final Result Performing Organization Address City/[facility]/ZIP Co de Phone Number [facility] [place] [address] * (ABNORMAL) Blood gas, venous (03/02/2024 8:14 AM AUTO CRANE DRIVER) pH, Venous 7.47(H) 7.32 - 7.43 PCO2, Venous 36(L) 40 - 50 mmHg [facility] PO2, Venous 36 mmHg [facility] Comment: Interpretive Data No Reference Range Established Current Interpretive Data was last revised on 2017. HCO3 Venous, Calculated 27 20 - 30 mmol/L [facility] BE, venous 3 mmol/L [facility] Comment: Interpretive Data No Reference Range Established Current Interpretive Data was last revised on 2017. Blood 03/02/2024 8:14 AM AUTO CRANE DRIVER 03/02/2024 8:20 AM AUTO CRANE DRIVER us Krysten Cohn MD LAB BLOOD ORDERABLES Final Result Performing Organization Address City/[facility]/ZIP Co de Phone Number [facility] [place] [address] * POCT glucose (03/02/2024 7:19 AM AUTO CRANE DRIVER) Glucose, POC 116 70 - 199 mg/dL Blood 03/02/2024 7:19 AM AUTO CRANE DRIVER 03/02/2024 7:19 AM AUTO CRANE DRIVER us Krysten Cohn MD LAB POCT ORDERABLES - DEVICE Final Result [facility] [place] [address] * (ABNORMAL) Pro B-type natriuretic peptide (03/02/2024 5:12 AM AUTO CRANE DRIVER) NT-proBNP 22,554(H) <=300 pg/mL Comment: Interpretive Comments: [...] Revised Date: 2017. Blood 03/02/2024 5:12 AM AUTO CRANE DRIVER 03/02/2024 5:34 AM AUTO CRANE DRIVER us Angelica ADAMS LAB BLOOD ORDERABLE S Final Result MADELEINE BJ [facility] [place] [address] * POCT glucose (03/02/2024 3:09 AM AUTO CRANE DRIVER) Glucose, POC 107 70 - 199 mg/dL Blood 03/02/2024 3:09 AM AUTO CRANE DRIVER 03/02/2024 3:09 AM AUTO CRANE DRIVER us Krysten Cohn MD LAB POCT ORDERABLES - DEVICE Final Result [facility] [place] [address] * Critical Care (03/01/2024 11:50 PM AUTO CRANE DRIVER) Narrative Gloria Schwarz MD - 03/01/2024 11:50 PM AUTO CRANE DRIVER Gloria Schwarz MD 03/01/2024 11:53 PM Critical [...] plan with the ICU team and other medical/risk consultant staff, making frequent assessments and decisions [...] Result * POCT glucose (03/01/2024 11:14 PM AUTO CRANE DRIVER) Glucose, POC 133 70 - 199 mg/dL Blood 03/01/2024 11:1 4 PM AUTO CRANE DRIVER 03/01/2024 11:14 PM AUTO CRANE DRIVER Krysten Cohn MD LAB POCT ORDERABLES - DEVICE Final Result Performing Organization Address City/[facility] Co de Phone Number MADELEINE [facility] [place] [address] * (ABNORMAL) eGFR (03/01/2024 8:36 PM AUTO CRANE DRIVER) Pathologist [facility] eGFR 58(L) >=60 mL/min/1. 73 m2 Comment: [...] last reviewed 2021. Blood 03/01/2024 8:36 PM AUTO CRANE DRIVER 03/01/2024 10:04 PM AUTO CRANE DRIVER us Krysten Cohn MD LAB BLOOD ORDERABLES Final Result Performing Organization Address City/[facility]/ZIP Co de Phone Number [facility] [place] [address] * (ABNORMAL) Differential, auto (03/01/2024 8:36 PM AUTO CRANE DRIVER) Neutrophil abs 12.5(H) 1.5 - 6.5 K/cumm Imm gran abs 3.1(H) 0.0 - 0.1 K/cumm [facility] Lymphocyte abs 2.4 0.8 - 3.3 K/cumm [facility] Monocyte abs 1.6(H) 0.2 - 0.8 K/cumm [facility] Eosinophil abs 0.1 0.0 - 0.5 K/cumm [facility] Basophil abs 0.1 0.0 - 0.1 K/cumm [facility] Neutrophil pct 63.5 % [facility] Comment: Interpretive Data Percent cell count reference ranges are not reported, since discordance with absolute values may lead to misinterpretation of CBC data. Current Interpretive Data was last revised on 2017. Imm gran pct 15.9 % [facility] Comment: Interpretive Data Percent cell count reference ranges are not reported, since discordance with absolute values may lead to misinterpretation of CBC data. Current Interpretive Data was last revised on 2017. Lymphocyte pct 12.0 % [facility] Comment: Interpretive Data Percent cell count reference ranges are not reported, since discordance with absolute values may lead to misinterpretation of CBC data. Current Interpretive Data was last revised on 2017. Monocyte pct 8.0 % [facility] Comment: Interpretive Data Percent cell count reference ranges are not reported, since discordance with absolute values may lead to misinterpretation of CBC data. Current Interpretive Data was last revised on 2017. Eosinophil pct 0.3 % [facility] Comment: Interpretive Data Percent cell count reference ranges are not reported, since discordance with absolute values may lead to misinterpretation of CBC data. Current Interpretive Data was last revised on 2017. Basophil pct 0.3 % [facility] Comment: Interpretive Data Percent cell count reference ranges are not reported, since discordance with absolute values may lead to misinterpretation of CBC data. Current Interpretive Data was last revised on 2017. Blood 03/01/2024 8:36 PM AUTO CRANE DRIVER 03/01/2024 9:58 PM AUTO CRANE DRIVER us Krysten Cohn MD LAB BLOOD ORDERABLES Final Result Performing Organization Address City/[facility]/ZIP Co de Phone Number [facility] [place] [address] * (ABNORMAL) CBC with auto differential (03/01/2024 8:36 PM AUTO CRANE DRIVER) WBC 19.6(H) 3.8 - 9.9 K/cumm Hgb 8.8(L) 11.9 - 15.5 g/dL [facility] Hct 27.6(L) 35.6 - 45.5 % [facility] Plt 163 150 - 400 K/cumm [facility] MPV 10.8 9.1 - 12.3 fL [facility] RBC 2.66(L) 3.90 - 5.20 M/cumm [facility] MCV 103.8(H) 81.3 - 96.4 fL [facility] MCH 33.1 27.1 - 33.3 pg [facility] MCHC 31.9(L) 32.3 - 35.7 g/dL [facility] RDW CV 15.4(H) 11.1 - 14.9 % [facility] RDW SD 57.7(H) 35.7 - 48.1 fL [facility] NRBC abs 0.10(H) 0.00 - 0.01 K/cumm [facility] Blood 03/01/2024 8:3 6 PM AUTO CRANE DRIVER 03/01/2024 9:58 PM AUTO CRANE DRIVER us Krysten Cohn MD LAB BLOOD ORDERABLES Final Result MADELEINE [facility] [place] [address] * (ABNORMAL) Protime-INR (03/01/2024 8:36 PM AUTO CRANE DRIVER) PT 18.4(H) 9.7 - 13.0 sec INR 1.69(H) 0.90 - 1.20 [facility] Comment: Interpretive data Oral anticoagulant therapeutic ranges: Venous thromboembolism prophylaxis or treatment: 2.0-3.0 CARDIOLOGY Standard range: 2.0-3.0 High-intensity range: 2.5-3.5 Refer to indication-specific guidelines for appropriate target ranges for prosthetic heart valve replacement. Current interpretive data was last revised on 2019. Blood 03/01/2024 8:36 PM AUTO CRANE DRIVER 03/01/2024 10:01 PM AUTO CRANE DRIVER Krysten Cohn MD LAB BLOOD ORDERABLES Final Result Performing Organization Address City/[facility] [place] [address] * (ABNORMAL) Phosphorus (03/01/2024 8:36 PM AUTO CRANE DRIVER) Phosphorus, pl 1.9(L) 2.3 - 4.5 mg/dL Blood 03/01/2024 8:36 PM AUTO CRANE DRIVER 03/01/2024 9:56 PM AUTO CRANE DRIVER Krysten Cohn MD LAB BLOOD ORDERABLES Final Result Performing Organization Address [facility] [place] [address] * Magnesium (03/01/2024 8:36 PM AUTO CRANE DRIVER) Magnesium 1.6 1.4 - 2.5 mg/dL Blood 03/01/2024 8:36 PM AUTO CRANE DRIVER 03/01/2024 9:56 PM AUTO CRANE DRIVER Krysten Cohn MD LAB BLOOD ORDERABLES Final Result Performing Organization Address [facility] Co de Phone Number [facility] [place] [address] * Blood gas, venous (03/01/2024 8:36 PM AUTO CRANE DRIVER) pH, Venous 7.42 7.32 - 7.43 PCO2, Venous 44 40 - 50 mmHg [facility] PO2, Venous 35 mmHg [facility] Comment: Interpretive Data No Reference Range Established Current Interpretive Data was last revised on 2017. HCO3 Venous, Calculated 30 20 - 30 mmol/L [facility] BE, venous 4 mmol/L [facility] Comment: Interpretive Data No Reference Range Established Current Interpretive Data was last revised on 2017. Blood 03/01/2024 8:36 PM AUTO CRANE DRIVER 03/01/2024 10:07 PM AUTO CRANE DRIVER us Krysten Cohn MD LAB BLOOD ORDERABLES Final Result [facility] [place] [address] * (ABNORMAL) Comprehensive metabolic panel (03/01/2024 8:36 PM AUTO CRANE DRIVER) [facility] Sodium 139 135 - 145 mmol/L Potassium, pl 3.4 3.3 - 4.9 mmol/L [facility] Chloride 99 97 - 110 mmol/L [facility] CO2 28 22 - 32 mmol/L [facility] Anion gap 12 2 - 15 mmol/L [facility] BUN 39(H) 6 - 25 mg/dL [facility] Creatinine 1.12(H) 0.60 - 1.10 mg/dL [facility] Glucose 114 70 - 199 mg/dL [facility] Comment: Interpretive Data Fasting glucose [...] 2022. Calcium 8.6 8.5 - 10.3 mg/dL [facility] Bilirubin, total 0.7 0.1 - 1.2 mg/dL [facility] Protein, pl 6.0(L) 6.5 - 8.5 g/dL [facility] Albumin 2.6(L) 3.5 - 5.0 g/dL [facility] Alk phos 270(H) 40 - 130 Units/L [facility] ALT 65(H) 7 - 45 Units/L [facility] AST 440(H) 10 - 45 Units/L [facility] Blood 03/01/2024 8:36 PM AUTO CRANE DRIVER 03/01/2024 9:56 PM AUTO CRANE DRIVER us Krysten Cohn MD LAB BLOOD ORDERABLES Final Result [facility] [place] [address] * XR Chest 1 View (03/01/2024 7:53 PM AUTO CRANE DRIVER) Anatomical Region Laterality Modality Body, Chest N/A Computed Radiogr aphy 03/02/2024 7:36 AM AUTO CRANE DRIVER Impressions 03/02/2024 11:01 AM AUTO CRANE DRIVER The current study is compared with the [...] Nolberto Garsia M.D. Narrative 03/02/2024 11:01 AM AUTO CRANE DRIVER EXAMINATION: 1 view chest radiograph Procedure Note [...] it. Electronically signed by: Nolberto Garsia M.D. Krysten Cohn MD IMG XR PROCEDURES Fin al Result * POCT glucose (03/01/2024 7:11 PM AUTO CRANE DRIVER) [facility] Glucose, POC 111 70 - 199 mg/dL Blood 03/01/2024 7:11 PM AUTO CRANE DRIVER 03/01/2024 7:11 PM AUTO CRANE DRIVER Krysten Cohn MD LAB POCT ORDERABLES - DEVICE Final Result [facility] [place] [address] * (ABNORMAL) Troponin I high-sensitivity 6-hour (03/01/2024 4:21 PM AUTO CRANE DRIVER) [facility] Trop I hs 255(C) <=17 ng/L Comment: Previous critical value noted within 48 hours ago. Interpretive Data For further hscTnI resources including the diagnostic algorithm and an aid in interpretation, copy and paste this link: https://bjhlab.testcatalog.org/show/hsTrop-1 Current Interpretive Data last revised 2019. Trop I hs pct delta -22(C) % [facility] Trop I hs interp Significa nt(C) [facility] Blood 03/01/2024 4:21 PM AUTO CRANE DRIVER 03/01/2024 4:33 PM AUTO CRANE DRIVER Krysten Cohn MD LAB BLOOD ORDERABLES Final Result Performing Organization Address [facility] Co de Phone Number [employer] [place] [address] * (ABNORMAL) Blood gas, venous (03/01/2024 4:21 PM AUTO CRANE DRIVER) Pathologist [facility] pH, Venous 7.43 7.32 - 7.43 PCO2, Venous 45 40 - 50 mmHg [facility] PO2, Venous 29 mmHg [facility] Comment: Interpretive Data No Reference Range Established Current Interpretive Data was last revised on 2017. HCO3 Venous, Calculated 31(H) 20 - 30 mmol/L [facility] BE, venous 5 mmol/L [facility] Comment: Interpretive Data No Reference Range Established Current Interpretive Data was last revised on 2017. Blood 03/01/2024 4:21 PM AUTO CRANE DRIVER 03/01/2024 4:29 PM AUTO CRANE DRIVER us Krysten Cohn MD LAB BLOOD ORDERABLES Final Result Performing Organization Address [facility] Co de Phone Number [facility] [place] [address] * POCT glucose (03/01/2024 3:18 PM AUTO CRANE DRIVER) [facility] Glucose, POC 155 70 - 199 mg/dL Blood 03/01/2024 3:18 PM AUTO CRANE DRIVER 03/01/2024 3:18 PM AUTO CRANE DRIVER us Krysten Cohn MD LAB POCT ORDERABLES - DEVICE Final Result Performing Organization Address [facility] Co de Phone Number [facility] [place] [address] * TRANSTHORACIC ECHO (TTE) LIMITED/FOLLOW UP W LTD DOPPLER/CF W CONTRAST (03/01/2024 3:04 PM AUTO CRANE DRIVER) [facility] LV EF 47 % CARDIOREPORT Anatomical Region Laterality Modality Ultrasound 03/01/2024 2:45 PM AUTO CRANE DRIVER Narrative 03/01/2024 4:11 PM AUTO CRANE DRIVER Patient name: Nolvia Branch Date of test: 03/01/2024 Type of test: TTE w/Doppler Hospital #: 0 Date of : 1970 (F) Machine Finisher: Behzad Contreras RDCS Referring Physician: KRYSTEN COHN MD Contrast Agent: 1.1 ml Optison Administered, (1.9 ml wasted). Contrast Administered by: Supervised/Interpreted by: Ang Aguilar MD Diagnosis: sob Location: [facility] Reason for test: elevated troponin MV Structure: [...] 2=Hypo 3=Akinetic 4=Dyskin./Aneurysm 0=Not visualized) Parasternal Long Mathis:MAS=1 BAS=1 MIL=1 COY=1 Parasternal Short Mathis:MAS=1 MIS=1 WI=2 MIL=1 MAL=1 MA=1 Apical 4 Chambers:=1 MIS=1 BIS=2 BAL=1 MAL=1 AL=1 AC=1 Apical 2 Chambers:AI=1 WI=2 BI=2 BA=1 MA=1 AA=1 AC=1 LV Global Longitudinal Strain: -13% (Normal <-17%) RV Global Longitudinal Strain: LV Function: Mild Segmental reduction in LV Ejection Fraction (EF=41-51%); via modified Tapia's. RV Function: Normal Septal Motion: paradoxic Pericardial Effusion: small Atrial Septum: Normal DOPPLER/COLOR FLOW DOPPLER RESULTS: Diastolic Function: Pseudo normal Tricuspid Valve: mild TV regurgitation Pulmonic Valve: Mild CA AV Regurgitation: No AR seen AV Stenosis: AV Area: cm2 AV Pressure Gradient (mmHg): Mean: 0, Peak:0 MV Regurgitation: Mild MR MV Stenosis: MV Area: cm2 MV Pressure Gradient (mmHg): Mean: 0 MV ERO: cm Regurg. Vol.: ml/beat Regurg. Frac.: % PA Pressure: mmHg DOPPLER/COLOR FOLOW DOPPLER COMMENTS: No AR seen, Mild MR, mild TV regurgitation, Mild CA. Diastolic function: Pseudo normal CONTRAST: 1.1 ml [...] MD By signing this report, the attending line analyst certifies that he or she has personally supervised and interpreted the echocardiogram and has reviewed and or edited and agrees with the written comments contained within the report. Procedure Note Ang Aguilar MD PhD - 03/01/2024 Patient name: Nolvia Branch Date of test: 03/01/2024 Type of test: TTE w/Doppler [facility] #: 0 Date of : 1970 (F) Machine Finisher: Behzad Contreras CONRAD Referring Physician: KRYSTEN COHN MD Contrast Agent: 1.1 ml Optison Administered, (1.9 ml wasted). Contrast Administered by: Supervised/Interpreted by: Ang Aguilar MD Diagnosis: sob Location: [facility] Reason for test: elevated troponin MV Structure: [...] 2=Hypo 3=Akinetic 4=Dyskin./Aneurysm 0=Not visualized) Parasternal Long Mathis:MAS=1 BAS=1 MIL=1 COY=1 Parasternal Short Mathis:MAS=1 MIS=1 WI=2 MIL=1 MAL=1 MA=1 Apical 4 Chambers:=1 MIS=1 BIS=2 BAL=1 MAL=1 AL=1 AC=1 Apical 2 Chambers:AI=1 WI=2 BI=2 BA=1 MA=1 AA=1 AC=1 LV Global Longitudinal Strain: -13% (Normal <-17%) RV Global Longitudinal Strain: LV Function: Mild Segmental reduction in LV Ejection Fraction (EF=41-51%); via modified Tapia's. RV Function: Normal Septal Motion: paradoxic Pericardial Effusion: small Atrial Septum: Normal DOPPLER/COLOR FLOW DOPPLER RESULTS: Diastolic Function: Pseudo normal Tricuspid Valve: mild TV regurgitation Pulmonic Valve: Mild CA AV Regurgitation: No AR seen AV Stenosis: AV Area: cm2 AV Pressure Gradient (mmHg): Mean: 0, Peak:0 MV Regurgitation: Mild MR MV Stenosis: MV Area: cm2 MV Pressure Gradient (mmHg): Mean: 0 MV ERO: cm Regurg. Vol.: ml/beat Regurg. Frac.: % PA Pressure: mmHg DOPPLER/COLOR FOLOW DOPPLER COMMENTS: No AR seen, Mild MR, mild TV regurgitation, Mild CA. Diastolic function: Pseudo normal CONTRAST: 1.1 ml [...] MD By signing this report, the attending line analyst certifies that he or she has personally supervised and interpreted the echocardiogram and has reviewed and or edited and agrees with the written comments contained within the report. Krysten Cohn MD CV ECHO PROCEDURES Fi nal Result * (ABNORMAL) Troponin I high-sensitivity 4-hour (03/01/2024 2:26 PM AUTO CRANE DRIVER) Trop I hs 263(C) <=17 ng/L Comment: Previous critical value noted within 48 hours ago. Interpretive Data For further [facility] resources including the diagnostic algorithm and an aid in interpretation, copy and paste this link: https://bjhlab.testcatalog.org/show/hsTrop-1 Current Interpretive Data last revised 2019. Trop I hs pct delta -20(C) % [facility] Trop I hs interp Significa nt(C) [facility] Blood 03/01/2024 2:26 PM AUTO CRANE DRIVER 03/01/2024 2:40 PM AUTO CRANE DRIVER Krysten Cohn MD LAB BLOOD ORDERABLES Final Result Performing Organization Address [facility] Co de Phone Number [facility] [place] [address] * (ABNORMAL) Troponin I high-sensitivity 2-hour (03/01/2024 1:21 PM AUTO CRANE DRIVER) Trop I hs 294(C) <=17 ng/L Comment: Previous critical value noted within 48 hours ago. Interpretive Data For further hscTnI resources including the diagnostic algorithm and an aid in interpretation, copy and paste this link: https://bjhlab.testcatalog.org/show/hsTrop-1 Current Interpretive Data last revised 2019. Trop I hs pct delta -11(C) % [facility] Comment:Previous critical va lue noted within 48 hours ago. Trop I hs interp Significa nt(C) [facility] Comment:Previous critical va lue noted within 48 hours ago. Blood 03/01/2024 1:21 PM AUTO CRANE DRIVER 03/01/2024 1:35 PM AUTO CRANE DRIVER Krysten Cohn MD LAB BLOOD ORDERABLES Final Result Performing Organization Address [facility] de Phone Number MADELEINE DEY [facility] [place] [address] * US RUQ (03/01/2024 1:10 PM AUTO CRANE DRIVER) Anatomical Region Laterality Modality Abdomen N/A Ultrasound 03/01/2024 1:34 PM AUTO CRANE DRIVER Impressions 03/01/2024 2:38 PM AUTO CRANE DRIVER 1. Limited examination due to limited acoustic windows from patient positioning. 2. Hepatic steatosis. 3. Cholelithiasis. Dictated by: Jeremi Horn MD The radiology attending physician has personally reviewed this study, and had reviewed and/or edited this written report and agrees with it. Electronically signed by: Too Armenta M.D. Narrative 03/01/2024 2:38 PM AUTO CRANE DRIVER EXAMINATION: PORTABLE LIMITED ABDOMINAL SONOGRAM HISTORY: Elevated [...] Result * Critical Care (03/01/2024 12:57 PM AUTO CRANE DRIVER) Narrative Andrez Moyer MD - 03/01/2024 12:57 PM AUTO CRANE DRIVER Andrez Moyer MD 03/01/2024 6:13 PM Critical [...] plan with the ICU team and other medical/risk consultant staff, making frequent assessments and decisions [...] patient with consultants and the medical staff us Andrez Moyer MD IN CLINIC/BEDSIDE ORDERABLES Fin al Result * POCT glucose (03/01/2024 11:17 AM AUTO CRANE DRIVER) Glucose, POC 158 70 - 199 mg/dL Blood 03/01/2024 11:1 7 AM AUTO CRANE DRIVER 03/01/2024 11:17 AM AUTO CRANE DRIVER us Krysten Cohn MD LAB POCT ORDERABLES - DEVICE Final Result [facility] Department [place] [address] * (ABNORMAL) Troponin I high-sensitivity series (baseline, 2hr, 4hr, 6hr) (03/01/2024 10:29 AM AUTO CRANE DRIVER) Trop I hs 329(C) <=17 ng/L Comment: Verified Interpretive Data For further [facility] resources including the diagnostic algorithm and an aid in interpretation, copy and paste this link: https://bjhlab.testcatalog.org/show/hsTrop-1 Current Interpretive Data last revised 2019. Blood 03/01/2024 10:2 9 AM AUTO CRANE DRIVER 03/01/2024 11:47 AM AUTO CRANE DRIVER us Krysten Cohn MD LAB BLOOD ORDERABLES Final Result [facility] [place] [address] * Critical result callback Cardio chemistry (03/01/2024 10:29 AM AUTO CRANE DRIVER) Date Notified [id number] Time Notified 1229 [facility] Test name Trop I hs base [facility] Called/Read Back Arianna Barcenas [facility] Credentials RN [facility] Called By RIK SALVADOR [facility] Blood 03/01/2024 10:2 9 AM AUTO CRANE DRIVER 03/01/2024 11:47 AM AUTO CRANE DRIVER us Krysten Cohn MD LAB BLOOD ORDERABLES Final Result [facility] [place] [address] * (ABNORMAL) Creatine kinase (CK), total (03/01/2024 10:26 AM AUTO CRANE DRIVER) CK 222(H) 30 - 200 Units/L Blood 03/01/2024 10:2 6 AM AUTO CRANE DRIVER 03/01/2024 11:47 AM AUTO CRANE DRIVER us Angelica ADAMS LAB BLOOD ORDERABLE S Final Result Performing Organization Address [facility] [place] [address] * Hepatitis panel, acute Blood (03/01/2024 10:23 AM AUTO CRANE DRIVER) Hep A IgM Nonreactive Nonreactive Hep B core IgM Nonreactive [facility]reactive [facility] Hep C Ab Nonreactive Nonreactive [facility] Comment:Antibodies to HCV no t detected. Does NOT exclude the possibility of recent exposure to HCV. Current interpretive data was last revised on 21 HepBsAg Nonreactive Nonreactive [facility] Blood 03/01/2024 10:2 3 AM AUTO CRANE DRIVER 03/01/2024 11:47 AM AUTO CRANE DRIVER Angelica ADAMS LAB MICROBIOLOGY - GENERAL ORDERABLES Final Result Performing Organization Address [facility] Phone Number [facility] [place] [address] * Lipase (03/01/2024 10:23 AM AUTO CRANE DRIVER) Pathologist [facility] Lipase 40 10 - 99 Units/L Blood 03/01/2024 10:2 3 AM AUTO CRANE DRIVER 03/01/2024 11:47 AM AUTO CRANE DRIVER Angelica ADAMS LAB BLOOD ORDERABLE S Final Result Performing Organization Address [facility] de Phone Number [facility] [place] [address] * (ABNORMAL) Gamma GT (03/01/2024 10:23 AM AUTO CRANE DRIVER) GGT 216(H) 5 - 35 Units/L Blood 03/01/2024 10:2 3 AM AUTO CRANE DRIVER 03/01/2024 11:47 AM AUTO CRANE DRIVER Angelica ADAMS LAB BLOOD ORDERABLE S Final Result Performing Organization Address [facility] Co de Phone Number MADELEINE [facility] [place] [address] * (ABNORMAL) eGFR (03/01/2024 7:41 AM AUTO CRANE DRIVER) eGFR 52(L) >=60 mL/min/1. 73 m2 Comment: [...] last reviewed 2021. Blood 03/01/2024 7:41 AM AUTO CRANE DRIVER 03/01/2024 8:02 AM AUTO CRANE DRIVER us Krysten Cohn MD LAB BLOOD ORDERABLES Final Result Performing Organization Address [facility] Co de Phone Number [facility] [place] [address] * (ABNORMAL) Protime-INR (03/01/2024 7:41 AM AUTO CRANE DRIVER) PT 24.8(H) 9.7 - 13.0 sec INR 2.26(H) 0.90 - 1.20 [facility] Comment: Interpretive data Oral anticoagulant therapeutic ranges: Venous thromboembolism prophylaxis or treatment: 2.0-3.0 CARDIOLOGY Standard range: 2.0-3.0 High-intensity range: 2.5-3.5 Refer to indication-specific guidelines for appropriate target ranges for prosthetic heart valve replacement. Current interpretive data was last revised on 2019. Blood 03/01/2024 7:41 AM AUTO CRANE DRIVER 03/01/2024 7:53 AM AUTO CRANE DRIVER Krysten Cohn MD LAB BLOOD ORDERABLES Final Result Performing Organization Address [facility] de Phone Number [facility] [place] [address] * Blood gas, venous (03/01/2024 7:41 AM AUTO CRANE DRIVER) pH, Venous 7.40 7.32 - 7.43 PCO2, Venous 45 40 - 50 mmHg [facility] PO2, Venous 39 mmHg [facility] Comment: Interpretive Data No Reference Range Established Current Interpretive Data was last revised on 2017. HCO3 Venous, Calculated 28 20 - 30 mmol/L [facility] BE, venous 2 mmol/L [facility] Comment: Interpretive Data No Reference Range Established Current Interpretive Data was last revised on 2017. Blood 03/01/2024 7:41 AM AUTO CRANE DRIVER 03/01/2024 7:46 AM AUTO CRANE DRIVER Krysten Cohn MD LAB BLOOD ORDERABLES Final Result Performing Organization Address [facility] de Phone Number [facility] [place] [address] * (ABNORMAL) Comprehensive metabolic panel (03/01/2024 7:41 AM AUTO CRANE DRIVER) Sodium 143 135 - 145 mmol/L Potassium, pl 3.7 3.3 - 4.9 mmol/L [facility] Chloride 104 97 - 110 mmol/L [facility] CO2 27 22 - 32 mmol/L [facility] Anion gap 12 2 - 15 mmol/L [facility] BUN 38(H) 6 - 25 mg/dL [facility] Creatinine 1.23(H) 0.60 - 1.10 mg/dL [facility] Glucose 159 70 - 199 mg/dL [facility] Comment: Interpretive Data Fasting glucose [...] 2022. Calcium 8.3(L) 8.5 - 10.3 mg/dL [facility] Bilirubin, total 0.6 0.1 - 1.2 mg/dL [facility] Protein, pl 6.0(L) 6.5 - 8.5 g/dL [facility] Albumin 2.9(L) 3.5 - 5.0 g/dL [facility] Alk phos 275(H) 40 - 130 Units/L [facility] ALT 31 7 - 45 Units/L [facility] AST 222(H) 10 - 45 Units/L [facility] Blood 03/01/2024 7:41 AM AUTO CRANE DRIVER 03/01/2024 8:02 AM AUTO CRANE DRIVER us Krysten Cohn MD LAB BLOOD ORDERABLES Final Result Performing Organization Address City/[facility]/ZIP Co de Phone Number [facility] [place] [address] * POCT glucose (03/01/2024 7:22 AM AUTO CRANE DRIVER) [facility] Glucose, POC 158 70 - 199 mg/dL Blood 03/01/2024 7:22 AM AUTO CRANE DRIVER 03/01/2024 7:22 AM AUTO CRANE DRIVER Krysten Cohn MD LAB POCT ORDERABLES - DEVICE Final Result Performing Organization Address [facility]/ZIP Co de Phone Number [facility] [place] [address] * (ABNORMAL) CBC with auto differential (03/01/2024 6:40 AM AUTO CRANE DRIVER) [facility] WBC 22.4(H) 3.8 - 9.9 K/cumm Hgb 9.0(L) 11.9 - 15.5 g/dL [facility] Hct 27.6(L) 35.6 - 45.5 % [facility] Plt 162 150 - 400 K/cumm [facility] MPV 10.5 9.1 - 12.3 fL [facility] RBC 2.63(L) 3.90 - 5.20 M/cumm [facility] MCV 104.9(H) 81.3 - 96.4 fL [facility] MCH 34.2(H) 27.1 - 33.3 pg [facility] MCHC 32.6 32.3 - 35.7 g/dL [facility] RDW CV 15.3(H) 11.1 - 14.9 % [facility] RDW SD 58.5(H) 35.7 - 48.1 fL [facility] NRBC abs 0.07(H) 0.00 - 0.01 K/cumm [facility] Blood 03/01/2024 6:40 AM AUTO CRANE DRIVER 03/01/2024 6:53 AM AUTO CRANE DRIVER us Krysten Cohn MD LAB BLOOD ORDERABLES Final Result [facility] [place] [address] * (ABNORMAL) Manual Differential (03/01/2024 6:40 AM AUTO CRANE DRIVER) [facility] Differential Manual Cells Counted 122 [facility] Neutrophil abs 16.3(H) 1.5 - 6.5 K/cumm [facility] Imm gran abs 1.5(H) 0.0 - 0.1 K/cumm [facility] Lymphocyte abs 3.1 0.8 - 3.3 K/cumm [facility] Monocyte abs 1.5(H) 0.2 - 0.8 K/cumm [facility] Neutrophil pct 72.9 % [facility] Comment: Interpretive Data Percent cell count reference ranges are not reported, since discordance with absolute values may lead to misinterpretation of CBC data. Current Interpretive Data was last revised on 2017. Lymphocyte pct 13.9 % [facility] Comment: Interpretive Data Percent cell count reference ranges are not reported, since discordance with absolute values may lead to misinterpretation of CBC data. Current Interpretive Data was last revised on 2017. Monocyte pct 6.6 % [facility] Comment: Interpretive Data Percent cell count reference ranges are not reported, since discordance with absolute values may lead to misinterpretation of CBC data. Current Interpretive Data was last revised on 2017. Metamyelocyte pct 4.1 % [facility] Myelocyte pct 2.5 % [facility] Blood 03/01/2024 6:40 AM AUTO CRANE DRIVER 03/01/2024 6:56 AM AUTO CRANE DRIVER us Krysten Cohn MD LAB BLOOD ORDERABLES Final Result Performing Organization Address City/[facility]/ZIP Co de Phone Number [facility] [place] [address] * POCT glucose (03/01/2024 3:08 AM AUTO CRANE DRIVER) Glucose, POC 140 70 - 199 mg/dL Blood 03/01/2024 3:08 AM AUTO CRANE DRIVER 03/01/2024 3:08 AM AUTO CRANE DRIVER Krysten Cohn MD LAB POCT ORDERABLES - DEVICE Final Result Performing Organization Address City/[facility]/ZIP Co de Phone Number [facility] [place] [address] * Lactate (03/01/2024 12:11 AM AUTO CRANE DRIVER) Lactate 1.7 0.7 - 2.0 mmol/L Blood 03/01/2024 12:1 1 AM AUTO CRANE DRIVER 03/01/2024 12:41 AM AUTO CRANE DRIVER us Krysten Cohn MD LAB BLOOD ORDERABLES Final Result [facility] [place] [address] * POCT glucose (02/29/2024 11:10 PM AUTO CRANE DRIVER) Glucose, POC 173 70 - 199 mg/dL Blood 02/29/2024 11:1 0 PM AUTO CRANE DRIVER 02/29/2024 11:10 PM AUTO CRANE DRIVER us Krysten Cohn MD LAB POCT ORDERABLES - DEVICE Final Result Performing Organization Address [facility] Co de Phone Number MADELEINE [facility] [place] [address] * (ABNORMAL) eGFR (02/29/2024 10:33 PM AUTO CRANE DRIVER) eGFR 52(L) >=60 mL/min/1. 73 m2 Comment: [...] reviewed 2021. Blood 02/29/2024 10:3 3 PM AUTO CRANE DRIVER 02/29/2024 10:51 PM AUTO CRANE DRIVER Result [facility] Krysten Cohn MD LAB BLOOD ORDERABLES Final Result Performing Organization Address [facility] Co de Phone Number [facility] [place] [address] * (ABNORMAL) Hemoglobin and hematocrit (02/29/2024 10:33 PM AUTO CRANE DRIVER) Hgb 8.7(L) 11.9 - 15.5 g/dL Hct 26.9(L) 35.6 - 45.5 % [facility] Blood 02/29/2024 10:3 3 PM AUTO CRANE DRIVER 02/29/2024 10:51 PM AUTO CRANE DRIVER Krysten Cohn MD LAB BLOOD ORDERABLES Final Result Performing Organization Address [facility] [place] [address] * (ABNORMAL) Protime-INR (02/29/2024 10:33 PM AUTO CRANE DRIVER) Pathologist [facility] PT 24.0(H) 9.7 - 13.0 sec INR 2.19(H) 0.90 - 1.20 [facility] Comment: Interpretive data Oral anticoagulant therapeutic ranges: Venous thromboembolism prophylaxis or treatment: 2.0-3.0 CARDIOLOGY Standard range: 2.0-3.0 High-intensity range: 2.5-3.5 Refer to indication-specific guidelines for appropriate target ranges for prosthetic heart valve replacement. Current interpretive data was last revised on 2019. Blood 02/29/2024 10:3 3 PM AUTO CRANE DRIVER 02/29/2024 10:54 PM AUTO CRANE DRIVER Result [facility] Krysten Cohn MD LAB BLOOD ORDERABLES Final Result Performing Organization Address [facility] Co de Phone Number [facility] [place] [address] * (ABNORMAL) Blood gas, venous (02/29/2024 10:33 PM AUTO CRANE DRIVER) Pathologist [facility] pH, Venous 7.47(H) 7.32 - 7.43 PCO2, Venous 37(L) 40 - 50 mmHg [facility] PO2, Venous 38 mmHg [facility] Comment: Interpretive Data No Reference Range Established Current Interpretive Data was last revised on 2017. HCO3 Venous, Calculated 28 20 - 30 mmol/L [facility] BE, venous 3 mmol/L [facility] Comment: Interpretive Data No Reference Range Established Current Interpretive Data was last revised on 2017. Blood 02/29/2024 10:3 3 PM AUTO CRANE DRIVER 02/29/2024 10:44 PM AUTO CRANE DRIVER us Krysten Cohn MD LAB BLOOD ORDERABLES Final Result [facility] [place] [address] * (ABNORMAL) Comprehensive metabolic panel (02/29/2024 10:33 PM AUTO CRANE DRIVER) [facility] Sodium 141 135 - 145 mmol/L Potassium, pl 4.1 3.3 - 4.9 mmol/L [facility] Chloride 102 97 - 110 mmol/L [facility] CO2 25 22 - 32 mmol/L [facility] Anion gap 14 2 - 15 mmol/L [facility] BUN 32(H) 6 - 25 mg/dL [facility] Creatinine 1.23(H) 0.60 - 1.10 mg/dL [facility] Glucose 163 70 - 199 mg/dL [facility] Comment: Interpretive Data Fasting glucose [...] Calcium 8.4(L) 8.5 - 10.3 mg/dL [facility] Bilirubin, total 0.8 0.1 - 1.2 mg/dL [facility] Protein, pl 6.2(L) 6.5 - 8.5 g/dL [facility] Albumin 2.4(L) 3.5 - 5.0 g/dL [facility] Alk phos 286(H) 40 - 130 Units/L [facility] ALT 23 7 - 45 Units/L [facility] AST 125(H) 10 - 45 Units/L [facility] Blood 02/29/2024 10:3 3 PM AUTO CRANE DRIVER 02/29/2024 10:51 PM AUTO CRANE DRIVER us Krysten Cohn MD LAB BLOOD ORDERABLES Final Result [facility] [place] [address] * Critical Care (02/29/2024 8:54 PM AUTO CRANE DRIVER) Narrative Gabriel Tsang MD - 02/29/2024 8:54 PM AUTO CRANE DRIVER Gabriel Tsang MD 03/01/2024 6:55 AM Critical [...] plan with the ICU team and other medical/risk consultant staff, making frequent assessments and decisions [...] Result * POCT glucose (02/29/2024 7:13 PM AUTO CRANE DRIVER) Glucose, POC 141 70 - 199 mg/dL Blood 02/29/2024 7:13 PM AUTO CRANE DRIVER 02/29/2024 7:13 PM AUTO CRANE DRIVER us Krysten Cohn MD LAB POCT ORDERABLES - DEVICE Final Result Performing Organization Address City/State/[facility] Co de Phone Number M[facility]LE[facility] [place] [address] * XR Chest 1 View (02/29/2024 6:29 PM AUTO CRANE DRIVER) Anatomical Region Laterality Modality Body, Chest N/A Computed Radiogr aphy 03/01/2024 9:18 AM AUTO CRANE DRIVER Impressions 03/01/2024 9:18 AM AUTO CRANE DRIVER Comparison is made to chest radiograph dated 02/28/2024. Right internal jugular venous approach catheter tip overlies the right brachiocephalic vein. The patient is status post right shoulder arthroplasty. Unchanged right hemidiaphragm elevation with mild right basilar atelectasis. No left lung consolidation. No pleural effusion or pneumothorax. Stable cardiomediastinal silhouette. Electronically signed by: Minnie Rivera M.D. Narrative 03/01/2024 9:18 AM AUTO CRANE DRIVER EXAMINATION: 1 view chest radiograph Procedure Note [...] Result * (ABNORMAL) Lactate (02/29/2024 6:01 PM AUTO CRANE DRIVER) Lactate 2.9(H) 0.7 - 2.0 mmol/L Blood 02/29/2024 6:01 PM AUTO CRANE DRIVER 02/29/2024 6:15 PM AUTO CRANE DRIVER Krysten Cohn MD LAB BLOOD ORDERABLES Final Result Performing Organization Address City/[facility]/ZIP Co de Phone Number [facility] Department [place] [address] * (ABNORMAL) Blood gas, venous (02/29/2024 6:01 PM AUTO CRANE DRIVER) pH, Venous 7.46(H) 7.32 - 7.43 PCO2, Venous 36(L) 40 - 50 mmHg [facility] PO2, Venous 34 mmHg [facility] Comment: Interpretive Data No Reference Range Established Current Interpretive Data was last revised on 2017. HCO3 Venous, Calculated 26 20 - 30 mmol/L [facility] BE, venous 2 mmol/L [facility] Comment: Interpretive Data No Reference Range Established Current Interpretive Data was last revised on 2017. Blood 02/29/2024 6:01 PM AUTO CRANE DRIVER 02/29/2024 6:10 PM AUTO CRANE DRIVER Krysten Cohn MD LAB BLOOD ORDERABLES Final Result Performing Organization Address City/[facility] Co de Phone Number [facility] Department [place] [address] * (ABNORMAL) POC Blood Gas and Chemistries, Venous - (02/29/2024 5:47 PM AUTO CRANE DRIVER) pH, Morris POC 7.47(H) 7.32 - 7.43 pCO2, morris POC 35(L) 40 - 50 mmHg [facility] pO2, morris POC 40 mmHg [facility] Na, POC 141 135 - 145 mmol/L [facility] K POC 4.5 3.3 - 4.9 mmol/L [facility] Comment: Interpretive Data Not all point of care methods assess for hemolysis. Confirm with instrument and retest K+ if not consistent with clinical signs and symptoms. Current Interpretive Data was last revised on 2023. Cl, POC 104 97 - 110 mmol/L [facility] Ionized Ca, POC 4.52 4.50 - 5.10 mg/dL [facility] Glucose, POC 124 70 - 199 mg/dL [facility] Lactate, POC 2.6(H) 0.7 - 2.2 mmol/L [facility] O2 Sat, Morris POC (Angelica) 65 % [facility] Base excess, POC 1.9 mmol/L [facility] HCO3, Morris POC 26 20 - 30 mmol/L [facility] Hct, POC 30.0(L) 36.3 - 45.3 % [facility] Total Hb, POC 9.9(L) 11.9 - 15.5 g/dL [facility] Blood 02/29/2024 5:47 PM AUTO CRANE DRIVER 02/29/2024 5:47 PM AUTO CRANE DRIVER Krysten Cohn MD LAB POCT ORDERABLES - DEVICE Final Result Performing Organization Address City/[facility]/ZIP Co de Phone Number [facility] [place] [address] * POCT glucose (02/29/2024 3:25 PM AUTO CRANE DRIVER) Glucose, POC 144 70 - 199 mg/dL Blood 02/29/2024 3:25 PM AUTO CRANE DRIVER 02/29/2024 3:25 PM AUTO CRANE DRIVER Krysten Cohn MD LAB POCT ORDERABLES - DEVICE Final Result [facility] [place] [address] * Blood culture Blood (02/29/2024 2:52 PM AUTO CRANE DRIVER) Report Final Report: No growth Blood 02/29/2024 2:52 PM AUTO CRANE DRIVER 02/29/2024 3:07 PM AUTO CRANE DRIVER Narrative [facility] - 2024 4:00 PM AUTO CRANE DRIVER Collection->Peripheral 1. Blood cultures are incubated for [...] performance characteristics have been verified by the [facility] Microbiology Laboratory. For questions about this culture, contact the Microbiology Laboratory at [phone]. Interpretive data was last revised on 23. Krysten Cohn MD LAB MICROBIOLOGY - [facility] ORDERABLES Final Result M[facility]LE[facility] DEY [facility] [place] [address] * Blood culture Blood (02/29/2024 2:52 PM AUTO CRANE DRIVER) Report Final Report: No growth Blood 02/29/2024 2:52 PM AUTO CRANE DRIVER 02/29/2024 3:07 PM AUTO CRANE DRIVER Narrative [facility] - 2024 4:00 PM AUTO CRANE DRIVER Collection->Peripheral 1. Blood cultures are incubated for [...] performance characteristics have been verified by the [facility] Microbiology Laboratory. For questions about this culture, contact the Microbiology Laboratory at [phone]. Interpretive data was last revised on 23. us Krysten Cohn MD LAB MICROBIOLOGY - [facility] ORDERABLES Final Result Performing Organization Address City/[facility]/ZIP Co de Phone Number [facility] [place] [address] * (ABNORMAL) Blood gas, venous (02/29/2024 2:22 PM AUTO CRANE DRIVER) [facility] pH, Venous 7.42 7.32 - 7.43 PCO2, Venous 38(L) 40 - 50 mmHg [facility] PO2, Venous 34 mmHg [facility] Comment: Interpretive Data No Reference Range Established Current Interpretive Data was last revised on 2017. HCO3 Venous, Calculated 25 20 - 30 mmol/L [facility] BE, venous 0 mmol/L [facility] Comment: Interpretive Data No Reference Range Established Current Interpretive Data was last revised on 2017. Blood 02/29/2024 2:22 PM AUTO CRANE DRIVER 02/29/2024 2:34 PM AUTO CRANE DRIVER us Krysten Chon MD LAB BLOOD ORDERABLES Final Result Performing Organization Address City/[facility]/ZIP Co de Phone Number [facility] [place] [address] * POCT glucose (02/29/2024 11:11 AM AUTO CRANE DRIVER) [facility] Glucose, POC 102 70 - 199 mg/dL Blood 02/29/2024 11:1 1 AM AUTO CRANE DRIVER 02/29/2024 11:11 AM AUTO CRANE DRIVER us Krysten Cohn MD LAB POCT ORDERABLES - DEVICE Final Result Performing Organization Address City/[facility]/ZIP Co de Phone Number M[facility]INE [facility] [place] [address] * eGFR (02/29/2024 10:58 AM AUTO CRANE DRIVER) [facility] eGFR 63 >=60 mL/min/1. 73 m2 [...] reviewed 2021. Blood 02/29/2024 10:5 8 AM AUTO CRANE DRIVER 02/29/2024 11:20 AM AUTO CRANE DRIVER us Angelica ADAMS LAB BLOOD ORDERABLE S Final Result Performing Organization Address City/[facility]/ZIP Co de Phone Number [facility] [place] [address] * (ABNORMAL) Blood gas, venous (02/29/2024 10:58 AM AUTO CRANE DRIVER) pH, Venous 7.27(L) 7.32 - 7.43 PCO2, Venous 44 40 - 50 mmHg [facility] PO2, Venous 38 mmHg [facility] Comment: Interpretive Data No Reference Range Established Current Interpretive Data was last revised on 2017. HCO3 Venous, Calculated 21 20 - 30 mmol/L [facility] BE, venous -6 mmol/L [facility] Comment: Interpretive Data No Reference Range Established Current Interpretive Data was last revised on 2017. Blood 02/29/2024 10:5 8 AM AUTO CRANE DRIVER 02/29/2024 11:03 AM AUTO CRANE DRIVER us Krysten Cohn MD LAB BLOOD ORDERABLES Final Result [facility] [place] [address] * (ABNORMAL) Basic metabolic panel (02/29/2024 10:58 AM AUTO CRANE DRIVER) Pathologist [facility] Sodium 140 135 - 145 mmol/L Potassium, pl 5.1(H) 3.3 - 4.9 mmol/L [facility] Chloride 99 97 - 110 mmol/L [facility] CO2 19(L) 22 - 32 mmol/L [facility] Anion gap 22(H) 2 - 15 mmol/L [facility] BUN 22 6 - 25 mg/dL [facility] Creatinine 1.05 0.60 - 1.10 mg/dL [facility] Glucose 99 70 - 199 mg/dL [facility] Comment: Interpretive Data Fasting glucose [...] 2022. Calcium 8.7 8.5 - 10.3 mg/dL [facility] Blood 02/29/2024 10:5 8 AM AUTO CRANE DRIVER 02/29/2024 11:20 AM AUTO CRANE DRIVER us Angelica ADAMS LAB BLOOD ORDERABLE S Final Result Performing Organization Address City/[facility] Co de Phone Number [facility] [place] [address] * eGFR (02/29/2024 8:19 AM AUTO CRANE DRIVER) eGFR 78 >=60 mL/min/1. 73 m2 Comment: [...] last reviewed 2021. Blood 02/29/2024 8:19 AM AUTO CRANE DRIVER 02/29/2024 8:36 AM AUTO CRANE DRIVER us Krysten Cohn MD LAB BLOOD ORDERABLES Final Result Performing Organization Address City/[facility]/ZIP Co de Phone Number [facility] [place] [address] * (ABNORMAL) Protime-INR (02/29/2024 8:19 AM AUTO CRANE DRIVER) PT 17.1(H) 9.7 - 13.0 sec INR 1.57(H) 0.90 - 1.20 [facility] Comment: Interpretive data Oral anticoagulant therapeutic ranges: Venous thromboembolism prophylaxis or treatment: 2.0-3.0 CARDIOLOGY Standard range: 2.0-3.0 High-intensity range: 2.5-3.5 Refer to indication-specific guidelines for appropriate target ranges for prosthetic heart valve replacement. Current interpretive data was last revised on 2019. Blood 02/29/2024 8:19 AM AUTO CRANE DRIVER 02/29/2024 8:29 AM AUTO CRANE DRIVER Krysten Cohn MD LAB BLOOD ORDERABLES Final Result Performing Organization Address [facility] Co de Phone Number [facility] [place] [address] * Blood gas, venous (02/29/2024 8:19 AM AUTO CRANE DRIVER) pH, Venous 7.42 7.32 - 7.43 PCO2, Venous 42 40 - 50 mmHg [facility] PO2, Venous 30 mmHg [facility] Comment: Interpretive Data No Reference Range Established Current Interpretive Data was last revised on 2017. HCO3 Venous, Calculated 28 20 - 30 mmol/L [facility] BE, venous 2 mmol/L [facility] Comment: Interpretive Data No Reference Range Established Current Interpretive Data was last revised on 2017. Blood 02/29/2024 8:19 AM AUTO CRANE DRIVER 02/29/2024 8:26 AM AUTO CRANE DRIVER Krysten Cohn MD LAB BLOOD ORDERABLES Final Result Performing Organization Address [facility] Co de Phone Number [facility] [place] [address] * (ABNORMAL) Comprehensive metabolic panel (02/29/2024 8:19 AM AUTO CRANE DRIVER) Sodium 139 135 - 145 mmol/L Potassium, pl 4.4 3.3 - 4.9 mmol/L [facility] Chloride 101 97 - 110 mmol/L [facility] CO2 26 22 - 32 mmol/L [facility] Anion gap 12 2 - 15 mmol/L [facility] BUN 21 6 - 25 mg/dL [facility] Creatinine 0.88 0.60 - 1.10 mg/dL [facility] Glucose 118 70 - 199 mg/dL [facility] Comment: Interpretive Data Fasting glucose [...] 2022. Calcium 8.6 8.5 - 10.3 mg/dL [facility] Bilirubin, total 0.9 0.1 - 1.2 mg/dL [facility] Protein, pl 6.3(L) 6.5 - 8.5 g/dL [facility] Albumin 2.6(L) 3.5 - 5.0 g/dL [facility] Alk phos 300(H) 40 - 130 Units/L [facility] ALT 14 7 - 45 Units/L [facility] AST 59(H) 10 - 45 Units/L [facility] Blood 02/29/2024 8:19 AM AUTO CRANE DRIVER 02/29/2024 8:36 AM AUTO CRANE DRIVER us Krysten Cohn MD LAB BLOOD ORDERABLES Final Result [facility] Department [place] [address] * Critical Care (02/29/2024 7:40 AM AUTO CRANE DRIVER) Narrative Andrez Moyer MD - 02/29/2024 7:40 AM AUTO CRANE DRIVER Andrez Moyer MD 02/29/2024 7:45 AM Critical [...] plan with the ICU team and other medical/risk consultant staff, making frequent assessments and decisions [...] Result * POCT glucose (02/29/2024 7:19 AM AUTO CRANE DRIVER) Glucose, POC 135 70 - 199 mg/dL Blood 02/29/2024 7:19 AM AUTO CRANE DRIVER 02/29/2024 7:19 AM AUTO CRANE DRIVER us Krysten Cohn MD LAB POCT ORDERABLES - DEVICE Final Result [facility] Department [place] [address] * POCT glucose (02/29/2024 3:18 AM AUTO CRANE DRIVER) Glucose, POC 188 70 - 199 mg/dL Blood 02/29/2024 3:18 AM AUTO CRANE DRIVER 02/29/2024 3:18 AM AUTO CRANE DRIVER us Krysten Cohn MD LAB POCT ORDERABLES - DEVICE Final Result Performing Organization Address [facility] Co de Phone Number [facility] [place] [address] * eGFR (02/28/2024 11:35 PM AUTO CRANE DRIVER) eGFR >90 >=60 mL/min/1. 73 m2 Comment: [...] reviewed 2021. Blood 02/28/2024 11:3 5 PM AUTO CRANE DRIVER 02/29/2024 12:07 AM AUTO CRANE DRIVER us Krysten Cohn MD LAB BLOOD ORDERABLES Final Result Performing Organization Address [facility] Co de Phone Number MADELEINE DEY [facility] [place] [address] * (ABNORMAL) Differential, auto (02/28/2024 11:35 PM AUTO CRANE DRIVER) Neutrophil abs 11.3(H) 1.5 - 6.5 K/cumm Imm gran abs 3.3(H) 0.0 - 0.1 K/cumm [facility] Lymphocyte abs 1.8 0.8 - 3.3 K/cumm [facility] Monocyte abs 2.1(H) 0.2 - 0.8 K/cumm [facility] Eosinophil abs 0.0 0.0 - 0.5 K/cumm [facility] Basophil abs 0.1 0.0 - 0.1 K/cumm [facility] Neutrophil pct 60.5 % [facility] Comment: Confirmed by smear review Interpretive Data Percent cell count reference ranges are not reported, since discordance with absolute values may lead to misinterpretation of CBC data. Current Interpretive Data was last revised on 2017. Imm gran pct 17.8 % [facility] Comment: Interpretive Data Percent cell count reference ranges are not reported, since discordance with absolute values may lead to misinterpretation of CBC data. Current Interpretive Data was last revised on 2017. Lymphocyte pct 9.6 % [facility] Comment: Interpretive Data Percent cell count reference ranges are not reported, since discordance with absolute values may lead to misinterpretation of CBC data. Current Interpretive Data was last revised on 2017. Monocyte pct 11.3 % [facility] Comment: Interpretive Data Percent cell count reference ranges are not reported, since discordance with absolute values may lead to misinterpretation of CBC data. Current Interpretive Data was last revised on 2017. Eosinophil pct 0.2 % [facility] Comment: Interpretive Data Percent cell count reference ranges are not reported, since discordance with absolute values may lead to misinterpretation of CBC data. Current Interpretive Data was last revised on 2017. Basophil pct 0.6 % [facility] Comment: Interpretive Data Percent cell count reference ranges are not reported, since discordance with absolute values may lead to misinterpretation of CBC data. Current Interpretive Data was last revised on 2017. Blood 02/28/2024 11:3 5 PM AUTO CRANE DRIVER 02/29/2024 12:12 AM AUTO CRANE DRIVER us Krysten Cohn MD LAB BLOOD ORDERABLES Final Result [facility] [place] [address] * (ABNORMAL) CBC with auto differential (02/28/2024 11:35 PM AUTO CRANE DRIVER) WBC 18.7(H) 3.8 - 9.9 K/cumm Hgb 9.5(L) 11.9 - 15.5 g/dL [facility] Hct 30.1(L) 35.6 - 45.5 % [facility] Plt 154 150 - 400 K/cumm [facility] MPV 10.9 9.1 - 12.3 fL [facility] RBC 2.75(L) 3.90 - 5.20 M/cumm [facility] MCV 110.2(H) 81.3 - 96.4 fL [facility] MCH 34.5(H) 27.1 - 33.3 pg [facility] MCHC 31.5(L) 32.3 - 35.7 g/dL [facility] RDW CV 15.4(H) 11.1 - 14.9 % [facility] RDW SD 62.2(H) 35.7 - 48.1 fL [facility] NRBC abs 0.13(H) 0.00 - 0.01 K/cumm [facility] Blood 02/28/2024 11:3 5 PM AUTO CRANE DRIVER 02/29/2024 12:12 AM AUTO CRANE DRIVER Krysten Cohn MD LAB BLOOD ORDERABLES Final Result [facility] [place] [address] * (ABNORMAL) Hemoglobin and hematocrit (02/28/2024 11:35 PM AUTO CRANE DRIVER) Hgb 9.5(L) 11.9 - 15.5 g/dL Hct 30.1(L) 35.6 - 45.5 % [facility] Blood 02/28/2024 11:3 5 PM AUTO CRANE DRIVER 02/29/2024 12:09 AM AUTO CRANE DRIVER Krysten Cohn MD LAB BLOOD ORDERABLES Final Result Performing Organization Address City/[facility] Co de Phone Number [facility] [place] [address] * (ABNORMAL) Protime-INR (02/28/2024 11:35 PM AUTO CRANE DRIVER) PT 14.3(H) 9.7 - 13.0 sec INR 1.32(H) 0.90 - 1.20 [facility] Comment: Interpretive data Oral anticoagulant therapeutic ranges: Venous thromboembolism prophylaxis or treatment: 2.0-3.0 CARDIOLOGY Standard range: 2.0-3.0 High-intensity range: 2.5-3.5 Refer to indication-specific guidelines for appropriate target ranges for prosthetic heart valve replacement. Current interpretive data was last revised on 2019. Blood 02/28/2024 11:3 5 PM AUTO CRANE DRIVER 02/29/2024 12:22 AM AUTO CRANE DRIVER us Krysten Cohn MD LAB BLOOD ORDERABLES Final Result Performing Organization Address City/[facility] Co de Phone Number [facility] [place] [address] * Blood gas, venous (02/28/2024 11:35 PM AUTO CRANE DRIVER) pH, Venous 7.36 7.32 - 7.43 PCO2, Venous 50 40 - 50 mmHg [facility] PO2, Venous 43 mmHg [facility] Comment: Interpretive Data No Reference Range Established Current Interpretive Data was last revised on 2017. HCO3 Venous, Calculated 29 20 - 30 mmol/L [facility] BE, venous 2 mmol/L [facility] Comment: Interpretive Data No Reference Range Established Current Interpretive Data was last revised on 2017. Blood 02/28/2024 11:3 5 PM AUTO CRANE DRIVER 02/28/2024 11:49 PM AUTO CRANE DRIVER Krysten Cohn MD LAB BLOOD ORDERABLES Final Result [facility] [place] [address] * (ABNORMAL) Comprehensive metabolic panel (02/28/2024 11:35 PM AUTO CRANE DRIVER) Sodium 139 135 - 145 mmol/L Potassium, pl 4.0 3.3 - 4.9 mmol/L [facility] Chloride 99 97 - 110 mmol/L [facility] CO2 27 22 - 32 mmol/L [facility] Anion gap 13 2 - 15 mmol/L [facility] BUN 17 6 - 25 mg/dL [facility] Creatinine 0.71 0.60 - 1.10 mg/dL [facility] Glucose 165 70 - 199 mg/dL [facility] Comment: Interpretive Data Fasting glucose [...] 2022. Calcium 8.3(L) 8.5 - 10.3 mg/dL [facility] Bilirubin, total 0.8 0.1 - 1.2 mg/dL [facility] Protein, pl 6.4(L) 6.5 - 8.5 g/dL [facility] Albumin 2.7(L) 3.5 - 5.0 g/dL [facility] Alk phos 308(H) 40 - 130 Units/L [facility] ALT 12 7 - 45 Units/L [facility] AST 38 10 - 45 Units/L [facility] Blood 02/28/2024 11:3 5 PM AUTO CRANE DRIVER 02/29/2024 12:07 AM AUTO CRANE DRIVER us Krysten Cohn MD LAB BLOOD ORDERABLES Final Result [facility] [place] [address] * POCT glucose (02/28/2024 11:23 PM AUTO CRANE DRIVER) Glucose, POC 170 70 - 199 mg/dL Blood 02/28/2024 11:2 3 PM AUTO CRANE DRIVER 02/28/2024 11:23 PM AUTO CRANE DRIVER us Krysten Cohn MD LAB POCT ORDERABLES - DEVICE Final Result Performing Organization Address [facility] Co de Phone Number [facility] [place] [address] * POCT glucose (02/28/2024 7:25 PM AUTO CRANE DRIVER) Glucose, POC 149 70 - 199 mg/dL Blood 02/28/2024 7:25 PM AUTO CRANE DRIVER 02/28/2024 7:25 PM AUTO CRANE DRIVER us Krysten Cohn MD LAB POCT ORDERABLES - DEVICE Final Result Performing Organization Address City/[facility] de Phone Number [facility] [place] [address] * Critical Care (02/28/2024 6:37 PM AUTO CRANE DRIVER) Narrative Gabriel Tsang MD - 02/28/2024 6:37 PM AUTO CRANE DRIVER Gabriel Tsang MD 02/29/2024 8:44 PM Critical [...] plan with the ICU team and other medical/risk consultant staff, making frequent assessments and decisions [...] or life-threatening deterioration of the following conditions: Gabriel Tsang MD IN CLINIC/BEDSIDE [facility] Final Result * XR Chest 1 View (02/28/2024 6:12 PM AUTO CRANE DRIVER) Anatomical Region Laterality Modality Body, Chest N/A Computed Radiogr aphy 02/29/2024 10:4 2 AM AUTO CRANE DRIVER Impressions 02/29/2024 12:05 PM AUTO CRANE DRIVER Comparison made to chest radiograph dated 02/27/2024. [...] Jason Lucia M.D. Narrative 02/29/2024 12:05 PM AUTO CRANE DRIVER EXAMINATION: 1 view chest radiograph Procedure Note [...] Result * POCT glucose (02/28/2024 3:23 PM AUTO CRANE DRIVER) Glucose, POC 148 70 - 199 mg/dL Blood 02/28/2024 3:23 PM AUTO CRANE DRIVER 02/28/2024 3:23 PM AUTO CRANE DRIVER Krysten Cohn MD LAB POCT ORDERABLES - DEVICE Final Result [facility] [place] [address] * POCT glucose (02/28/2024 11:12 AM AUTO CRANE DRIVER) Glucose, POC 106 70 - 199 mg/dL Blood 02/28/2024 11:1 2 AM AUTO CRANE DRIVER 02/28/2024 11:12 AM AUTO CRANE DRIVER Krysten Cohn MD LAB POCT ORDERABLES - DEVICE Final Result Performing Organization Address City/[facility]/ZIP Co de Phone Number [facility] [place] [address] * eGFR (02/28/2024 9:35 AM AUTO CRANE DRIVER) eGFR 68 >=60 mL/min/1. 73 m2 Comment: [...] last reviewed 2021. Blood 02/28/2024 9:35 AM AUTO CRANE DRIVER 02/28/2024 9:58 AM AUTO CRANE DRIVER us Krysten Cohn MD LAB BLOOD ORDERABLES Final Result Performing Organization Address [facility] de Phone Number [facility] [place] [place] [address] * (ABNORMAL) Protime-INR (02/28/2024 9:35 AM AUTO CRANE DRIVER) PT 14.4(H) 9.7 - 13.0 sec INR 1.33(H) 0.90 - 1.20 [facility] Comment: Interpretive data Oral anticoagulant therapeutic ranges: Venous thromboembolism prophylaxis or treatment: 2.0-3.0 CARDIOLOGY Standard range: 2.0-3.0 High-intensity range: 2.5-3.5 Refer to indication-specific guidelines for appropriate target ranges for prosthetic heart valve replacement. Current interpretive data was last revised on 2019. Blood 02/28/2024 9:35 AM AUTO CRANE DRIVER 02/28/2024 9:49 AM AUTO CRANE DRIVER us Krysten Cohn MD LAB BLOOD ORDERABLES Final Result Performing Organization Address [facility] de Phone Number [facility] [place] [address] * (ABNORMAL) Blood gas, venous (02/28/2024 9:35 AM AUTO CRANE DRIVER) pH, Venous 7.35 7.32 - 7.43 PCO2, Venous 53(H) 40 - 50 mmHg [facility] PO2, Venous 40 mmHg [facility] Comment: Interpretive Data No Reference Range Established Current Interpretive Data was last revised on 2017. HCO3 Venous, Calculated 31(H) 20 - 30 mmol/L [facility] BE, venous 3 mmol/L [facility] Comment: Interpretive Data No Reference Range Established Current Interpretive Data was last revised on 2017. Blood 02/28/2024 9:35 AM AUTO CRANE DRIVER 02/28/2024 9:47 AM AUTO CRANE DRIVER us Krysten Cohn MD LAB BLOOD ORDERABLES Final Result [facility] Department [place] [address] * (ABNORMAL) Comprehensive metabolic panel (02/28/2024 9:35 AM AUTO CRANE DRIVER) Sodium 138 135 - 145 mmol/L Potassium, pl 3.8 3.3 - 4.9 mmol/L [facility] Chloride 101 97 - 110 mmol/L [facility] CO2 30 22 - 32 mmol/L [facility] Anion gap 7 2 - 15 mmol/L [facility] BUN 26(H) 6 - 25 mg/dL [facility] Creatinine 0.98 0.60 - 1.10 mg/dL [facility] Glucose 124 70 - 199 mg/dL [facility] Comment: Interpretive Data Fasting glucose [...] 2022. Calcium 8.2(L) 8.5 - 10.3 mg/dL [facility] Bilirubin, total 0.7 0.1 - 1.2 mg/dL [facility] Protein, pl 5.8(L) 6.5 - 8.5 g/dL [facility] Albumin 2.5(L) 3.5 - 5.0 g/dL [facility] Alk phos 390(H) 40 - 130 Units/L [facility] ALT 11 7 - 45 Units/L [facility] AST 40 10 - 45 Units/L [facility] Blood 02/28/2024 9:35 AM AUTO CRANE DRIVER 02/28/2024 9:58 AM AUTO CRANE DRIVER us Krysten Cohn MD LAB BLOOD ORDERABLES Final Result [facility] [place] [address] * Critical Care (02/28/2024 7:43 AM AUTO CRANE DRIVER) Narrative Andrez Moyer MD - 02/28/2024 7:43 AM AUTO CRANE DRIVER Andrez Moyer MD 02/28/2024 7:44 AM Critical Care Performed by: Andrez Moyer [...] plan with the ICU team and other medical/risk consultant staff, making frequent assessments and decisions [...] spent time documenting in the medical record Andrez Moyer MD IN CLINIC/BEDSIDE ORDERABLES Fin al Result * POCT glucose (02/28/2024 7:32 AM AUTO CRANE DRIVER) Glucose, POC 88 70 - 199 mg/dL Blood 02/28/2024 7:32 AM AUTO CRANE DRIVER 02/28/2024 7:32 AM AUTO CRANE DRIVER us Krysten Cohn MD LAB POCT ORDERABLES - DEVICE Final Result Performing Organization Address [facility] Co de Phone Number [facility] [place] [address] * (ABNORMAL) Hemoglobin and hematocrit (02/28/2024 4:27 AM AUTO CRANE DRIVER) Hgb 8.4(L) 11.9 - 15.5 g/dL Hct 27.1(L) 35.6 - 45.5 % [facility] Blood 02/28/2024 4:27 AM AUTO CRANE DRIVER 02/28/2024 4:46 AM AUTO CRANE DRIVER Krysten Cohn MD LAB BLOOD ORDERABLES Final Result Performing Organization Address [facility] Co de Phone Number [facility] [place] [address] * POCT glucose (02/28/2024 3:10 AM AUTO CRANE DRIVER) Glucose, POC 87 70 - 199 mg/dL Blood 02/28/2024 3:10 AM AUTO CRANE DRIVER 02/28/2024 3:10 AM AUTO CRANE DRIVER Krysten Cohn MD LAB POCT ORDERABLES - DEVICE Final Result Performing Organization Address [facility] Co de Phone Number [facility] [place] [address] * (ABNORMAL) Blood gas, venous (02/27/2024 11:23 PM AUTO CRANE DRIVER) pH, Venous 7.29(L) 7.32 - 7.43 PCO2, Venous 63(H) 40 - 50 mmHg [facility] PO2, Venous 55 mmHg [facility] Comment: Interpretive Data No Reference Range Established Current Interpretive Data was last revised on 2017. HCO3 Venous, Calculated 31(H) 20 - 30 mmol/L [facility] BE, venous 2 mmol/L [facility] Comment: Interpretive Data No Reference Range Established Current Interpretive Data was last revised on 2017. Blood 02/27/2024 11:2 3 PM AUTO CRANE DRIVER 02/27/2024 11:31 PM AUTO CRANE DRIVER us Krysten Cohn MD LAB BLOOD ORDERABLES Final Result Performing Organization Address [facility] de Phone Number [facility] [place] [address] * POCT glucose (02/27/2024 11:20 PM AUTO CRANE DRIVER) Glucose, POC 115 70 - 199 mg/dL Blood 02/27/2024 11:2 0 PM AUTO CRANE DRIVER 02/27/2024 11:20 PM AUTO CRANE DRIVER us Krysten Cohn MD LAB POCT ORDERABLES - DEVICE Final Result Performing Organization Address [facility] Co de Phone Number [facility] [place] [address] * Critical Care (02/27/2024 7:55 PM AUTO CRANE DRIVER) Narrative Gabriel Tsang MD - 02/27/2024 7:55 PM AUTO CRANE DRIVER Gabriel Tsang MD 02/28/2024 6:02 AM Critical [...] plan with the ICU team and other medical/risk consultant staff, making frequent assessments and decisions [...] JM NEWELL Final Result * (ABNORMAL) eGFR (02/27/2024 7:51 PM AUTO CRANE DRIVER) [facility] eGFR 31(L) >=60 mL/min/1. 73 m2 [...] last reviewed 2021. Blood 02/27/2024 7:51 PM AUTO CRANE DRIVER 02/27/2024 8:06 PM AUTO CRANE DRIVER us Krysten Cohn MD LAB BLOOD ORDERABLES Final Result Performing Organization Address City/State/ZIP Co ms Phone Number [facility] [place] [address] * (ABNORMAL) Protime-INR (02/27/2024 7:51 PM AUTO CRANE DRIVER) [facility] PT 14.4(H) 9.7 - 13.0 sec INR 1.33(H) 0.90 - 1.20 [facility] Comment: Interpretive data Oral anticoagulant therapeutic ranges: Venous thromboembolism prophylaxis or treatment: 2.0-3.0 CARDIOLOGY Standard range: 2.0-3.0 High-intensity range: 2.5-3.5 Refer to indication-specific guidelines for appropriate target ranges for prosthetic heart valve replacement. Current interpretive data was last revised on 2019. Blood 02/27/2024 7:51 PM AUTO CRANE DRIVER 02/27/2024 8:10 PM AUTO CRANE DRIVER us Krysten Cohn MD LAB BLOOD ORDERABLES Final Result Performing Organization Address [facility] Co de Phone Number [facility] [place] [address] * Phosphorus (02/27/2024 7:51 PM AUTO CRANE DRIVER) [facility] Phosphorus, pl 4.1 2.3 - 4.5 mg/dL Blood 02/27/2024 7:51 PM AUTO CRANE DRIVER 02/27/2024 8:00 PM AUTO CRANE DRIVER us Krysten Cohn MD LAB BLOOD ORDERABLES Final Result Performing Organization Address [facility] [place] [address] * (ABNORMAL) Comprehensive metabolic panel (02/27/2024 7:51 PM AUTO CRANE DRIVER) [facility] Sodium 140 135 - 145 mmol/L Potassium, pl 3.5 3.3 - 4.9 mmol/L [facility] Chloride 100 97 - 110 mmol/L [facility] CO2 30 22 - 32 mmol/L [facility] Anion gap 10 2 - 15 mmol/L [facility] BUN 42(H) 6 - 25 mg/dL [facility] Creatinine 1.91(H) 0.60 - 1.10 mg/dL [facility] Glucose 102 70 - 199 mg/dL [facility] Comment: Interpretive Data Fasting glucose [...] 2022. Calcium 8.3(L) 8.5 - 10.3 mg/dL [facility] Bilirubin, total 0.7 0.1 - 1.2 mg/dL [facility] Protein, pl 5.8(L) 6.5 - 8.5 g/dL [facility] Albumin 2.5(L) 3.5 - 5.0 g/dL [facility] Alk phos 240(H) 40 - 130 Units/L [facility] ALT 11 7 - 45 Units/L [facility] AST 34 10 - 45 Units/L [facility] Blood 02/27/2024 7:51 PM AUTO CRANE DRIVER 02/27/2024 8:00 PM AUTO CRANE DRIVER us Krysten Cohn MD LAB BLOOD ORDERABLES Final Result Performing Organization Address [facility]/ZIP Co de Phone Number [facility] [place] [address] * POCT glucose (02/27/2024 7:00 PM AUTO CRANE DRIVER) [facility] Glucose, POC 109 70 - 199 mg/dL Blood 02/27/2024 7:00 PM AUTO CRANE DRIVER 02/27/2024 7:00 PM AUTO CRANE DRIVER Krysten Cohn MD LAB POCT ORDERABLES - DEVICE Final Result [facility] [place] [address] * XR Chest 1 View (02/27/2024 6:19 PM AUTO CRANE DRIVER) Anatomical Region Laterality Modality Body, Chest N/A Computed Radiogr aphy 02/27/2024 7:35 PM AUTO CRANE DRIVER Impressions 02/27/2024 7:35 PM AUTO CRANE DRIVER Comparison is made 02/26/2024. Right internal jugular central venous catheter has tip in the superior vena cava. There has been interval increase in bilateral airspace opacities consistent with pulmonary edema that may be secondary to evolving lung injury or a cardiogenic cause. No pneumothorax. No effusions. Electronically signed by: Kenton Muñoz M.D. Narrative 02/27/2024 7:35 PM AUTO CRANE DRIVER EXAMINATION: 1 view chest radiograph Procedure Note [...] effusions. Electronically signed by: Kenton Muñoz M.D. Krysten Cohn MD IMG XR PROCEDURES Fin al Result * (ABNORMAL) Blood gas, venous (02/27/2024 5:57 PM AUTO CRANE DRIVER) pH, Venous 7.27(L) 7.32 - 7.43 PCO2, Venous 68(H) 40 - 50 mmHg [facility] PO2, Venous 46 mmHg [facility] Comment: Interpretive Data No Reference Range Established Current Interpretive Data was last revised on 2017. HCO3 Venous, Calculated 32(H) 20 - 30 mmol/L [facility] BE, venous 3 mmol/L [facility] Comment: Interpretive Data No Reference Range Established Current Interpretive Data was last revised on 2017. Blood 02/27/2024 5:57 PM AUTO CRANE DRIVER 02/27/2024 6:04 PM AUTO CRANE DRIVER Angelica ADAMS LAB BLOOD ORDERABLE S Final Result Performing Organization Address [facility] Co de Phone Number [facility] [place] [address] * (ABNORMAL) Blood gas, venous (02/27/2024 3:43 PM AUTO CRANE DRIVER) pH, Venous 7.29(L) 7.32 - 7.43 PCO2, Venous 61(H) 40 - 50 mmHg [facility] PO2, Venous 52 mmHg [facility] Comment: Interpretive Data No Reference Range Established Current Interpretive Data was last revised on 2017. HCO3 Venous, Calculated 31(H) 20 - 30 mmol/L [facility] BE, venous 2 mmol/L [facility] Comment: Interpretive Data No Reference Range Established Current Interpretive Data was last revised on 2017. Blood 02/27/2024 3:43 PM AUTO CRANE DRIVER 02/27/2024 3:57 PM AUTO CRANE DRIVER Krysten Cohn MD LAB BLOOD ORDERABLES Final Result Performing Organization Address [facility] Co de Phone Number [facility] [place] [address] * Blood culture Blood (02/27/2024 12:52 PM AUTO CRANE DRIVER) Report Final Report: No growth Blood 02/27/2024 12:5 2 PM AUTO CRANE DRIVER 02/27/2024 1:29 PM AUTO CRANE DRIVER Narrative [facility] - 03/02/2024 4:00 PM AUTO CRANE DRIVER Collection->Peripheral 1. Blood cultures are incubated for [...] performance characteristics have been verified by the [facility] Microbiology Laboratory. For questions about this culture, contact the Microbiology Laboratory at [phone]. Interpretive data was last revised on 23. Angelica ADAMS LAB MICROBIOLOGY - GENERAL ORDERABLES Final Result MADELE[facility] DEY [facility] [place] [address] * Blood culture Blood (02/27/2024 12:52 PM AUTO CRANE DRIVER) Report Final Report: No growth Blood 02/27/2024 12:5 2 PM AUTO CRANE DRIVER 02/27/2024 1:29 PM AUTO CRANE DRIVER Narrative [facility] - 03/02/2024 4:00 PM AUTO CRANE DRIVER Collection->Peripheral 1. Blood cultures are incubated for [...] performance characteristics have been verified by the [facility] Microbiology Laboratory. For questions about this culture, contact the Microbiology Laboratory at [phone]. Interpretive data was last revised on 23. Angelica ADAMS LAB MICROBIOLOGY - GENERAL ORDERABLES Final Result Performing Organization Address [facility] Co de Phone Number [facility] [place] [address] * (ABNORMAL) Blood gas, venous (02/27/2024 12:19 PM AUTO CRANE DRIVER) pH, Venous 7.31(L) 7.32 - 7.43 PCO2, Venous 58(H) 40 - 50 mmHg [facility] PO2, Venous 50 mmHg [facility] Comment: Interpretive Data No Reference Range Established Current Interpretive Data was last revised on 2017. HCO3 Venous, Calculated 31(H) 20 - 30 mmol/L [facility] BE, venous 3 mmol/L [facility] Comment: Interpretive Data No Reference Range Established Current Interpretive Data was last revised on 2017. Blood 02/27/2024 12:1 9 PM AUTO CRANE DRIVER 02/27/2024 12:27 PM AUTO CRANE DRIVER Result [facility] Angelica ADAMS LAB BLOOD ORDERABLE S Final Result Performing Organization Address [facility] de Phone Number [facility] [place] [address] * POCT glucose (02/27/2024 11:13 AM AUTO CRANE DRIVER) Glucose, POC 118 70 - 199 mg/dL Blood 02/27/2024 11:1 3 AM AUTO CRANE DRIVER 02/27/2024 11:13 AM AUTO CRANE DRIVER Krysten Cohn MD LAB POCT ORDERABLES - DEVICE Final Result [facility] [place] [address] * (ABNORMAL) Differential, auto (02/27/2024 9:20 AM AUTO CRANE DRIVER) Neutrophil abs 15.4(H) 1.5 - 6.5 K/cumm Imm gran abs 0.5(H) 0.0 - 0.1 K/cumm [facility] Lymphocyte abs 1.3 0.8 - 3.3 K/cumm [facility] Monocyte abs 2.1(H) 0.2 - 0.8 K/cumm [facility] Eosinophil abs 0.1 0.0 - 0.5 K/cumm [facility] Basophil abs 0.1 0.0 - 0.1 K/cumm [facility] Neutrophil pct 79.0 % [facility] Comment: Interpretive Data Percent cell count reference ranges are not reported, since discordance with absolute values may lead to misinterpretation of CBC data. Current Interpretive Data was last revised on 2017. Imm gran pct 2.5 % [facility] Comment: Interpretive Data Percent cell count reference ranges are not reported, since discordance with absolute values may lead to misinterpretation of CBC data. Current Interpretive Data was last revised on 2017. Lymphocyte pct 6.5 % [facility] Comment: Interpretive Data Percent cell count reference ranges are not reported, since discordance with absolute values may lead to misinterpretation of CBC data. Current Interpretive Data was last revised on 2017. Monocyte pct 11.0 % [facility] Comment: Interpretive Data Percent cell count reference ranges are not reported, since discordance with absolute values may lead to misinterpretation of CBC data. Current Interpretive Data was last revised on 2017. Eosinophil pct 0.6 % [facility] Comment: Interpretive Data Percent cell count reference ranges are not reported, since discordance with absolute values may lead to misinterpretation of CBC data. Current Interpretive Data was last revised on 2017. Basophil pct 0.4 % [facility] Comment: Interpretive Data Percent cell count reference ranges are not reported, since discordance with absolute values may lead to misinterpretation of CBC data. Current Interpretive Data was last revised on 2017. Blood 02/27/2024 9:20 AM AUTO CRANE DRIVER 02/27/2024 9:38 AM AUTO CRANE DRIVER Krysten Cohn MD LAB BLOOD ORDERABLES Final Result Performing Organization Address [facility] Co de Phone Number [facility] [place] [address] * (ABNORMAL) CBC with auto differential (02/27/2024 9:20 AM AUTO CRANE DRIVER) WBC 19.5(H) 3.8 - 9.9 K/cumm Hgb 8.1(L) 11.9 - 15.5 g/dL [facility] Hct 25.1(L) 35.6 - 45.5 % [facility] Plt 117(L) 150 - 400 K/cumm [facility] MPV 10.2 9.1 - 12.3 fL [facility] RBC 2.36(L) 3.90 - 5.20 M/cumm [facility] MCV 106.4(H) 81.3 - 96.4 fL [facility] MCH 34.3(H) 27.1 - 33.3 pg [facility] MCHC 32.3 32.3 - 35.7 g/dL [facility] RDW CV 15.5(H) 11.1 - 14.9 % [facility] RDW SD 59.7(H) 35.7 - 48.1 fL [facility] NRBC abs 0.07(H) 0.00 - 0.01 K/cumm [facility] Blood 02/27/2024 9:20 AM AUTO CRANE DRIVER 02/27/2024 9:38 AM AUTO CRANE DRIVER us Krysten Cohn MD LAB BLOOD ORDERABLES Final Result Performing Organization Address City/[facility]/ZIP Co de Phone Number [facility] [place] [address] * (ABNORMAL) eGFR (02/27/2024 9:00 AM AUTO CRANE DRIVER) eGFR 19(L) >=60 mL/min/1. 73 m2 Comment: [...] last reviewed 2021. Blood 02/27/2024 9:00 AM AUTO CRANE DRIVER 02/27/2024 9:39 AM AUTO CRANE DRIVER us Krysten Cohn MD LAB BLOOD ORDERABLES Final Result [facility] [place] [address] * (ABNORMAL) Protime-INR (02/27/2024 9:00 AM AUTO CRANE DRIVER) PT 14.9(H) 9.7 - 13.0 sec INR 1.37(H) 0.90 - 1.20 [facility] Comment: Interpretive data Oral anticoagulant therapeutic ranges: Venous thromboembolism prophylaxis or treatment: 2.0-3.0 CARDIOLOGY Standard range: 2.0-3.0 High-intensity range: 2.5-3.5 Refer to indication-specific guidelines for appropriate target ranges for prosthetic heart valve replacement. Current interpretive data was last revised on 2019. Blood 02/27/2024 9:00 AM AUTO CRANE DRIVER 02/27/2024 9:39 AM AUTO CRANE DRIVER us Krysten Cohn MD LAB BLOOD ORDERABLES Final Result [facility] [place] [address] * (ABNORMAL) Blood gas, venous (02/27/2024 9:00 AM AUTO CRANE DRIVER) pH, Venous 7.30(L) 7.32 - 7.43 PCO2, Venous 59(H) 40 - 50 mmHg [facility] PO2, Venous 55 mmHg [facility] Comment: Interpretive Data No Reference Range Established Current Interpretive Data was last revised on 2017. HCO3 Venous, Calculated 30 20 - 30 mmol/L [facility] BE, venous 2 mmol/L [facility] Comment: Interpretive Data No Reference Range Established Current Interpretive Data was last revised on 2017. Blood 02/27/2024 9:00 AM AUTO CRANE DRIVER 02/27/2024 9:32 AM AUTO CRANE DRIVER us Krysten Cohn MD LAB BLOOD ORDERABLES Final Result [facility] [place] [address] * (ABNORMAL) Comprehensive metabolic panel (02/27/2024 9:00 AM AUTO CRANE DRIVER) Pathologist [facility] Sodium 139 135 - 145 mmol/L Potassium, pl 3.5 3.3 - 4.9 mmol/L [facility] Chloride 100 97 - 110 mmol/L [facility] CO2 30 22 - 32 mmol/L [facility] Anion gap 9 2 - 15 mmol/L [facility] BUN 51(H) 6 - 25 mg/dL [facility] Creatinine 2.89(H) 0.60 - 1.10 mg/dL [facility] Glucose 107 70 - 199 mg/dL [facility] Comment: Interpretive Data Fasting glucose [...] Calcium 8.4(L) 8.5 - 10.3 mg/dL [facility] Bilirubin, total 0.7 0.1 - 1.2 mg/dL [facility] Protein, pl 5.5(L) 6.5 - 8.5 g/dL [facility] Albumin 2.5(L) 3.5 - 5.0 g/dL [facility] Alk phos 218(H) 40 - 130 Units/L [facility] ALT 10 7 - 45 Units/L [facility] AST 31 10 - 45 Units/L [facility] Blood 02/27/2024 9:00 AM AUTO CRANE DRIVER 02/27/2024 9:39 AM AUTO CRANE DRIVER us Krysten Cohn MD LAB BLOOD ORDERABLES Final Result [facility] [place] [address] * Critical Care (02/27/2024 8:54 AM AUTO CRANE DRIVER) Narrative Andrez Moyer MD - 02/27/2024 8:54 AM AUTO CRANE DRIVER Andrez Moyer MD 02/27/2024 8:54 AM Critical [...] plan with the ICU team and other medical/risk consultant staff, making frequent assessments and decisions [...] spent time documenting in the medical record Andrez Moyer MD IN CLINIC/BEDSIDE ORDERABLES Fin al Result * POCT glucose (02/27/2024 7:10 AM AUTO CRANE DRIVER) Glucose, POC 100 70 - 199 mg/dL Blood 02/27/2024 7:10 AM AUTO CRANE DRIVER 02/27/2024 7:10 AM AUTO CRANE DRIVER Krysten Cohn MD LAB POCT ORDERABLES - DEVICE Final Result Performing Organization Address [facility] Co de Phone Number [facility] [place] [address] * (ABNORMAL) Hemoglobin and hematocrit (02/27/2024 5:42 AM AUTO CRANE DRIVER) Hgb 7.9(L) 11.9 - 15.5 g/dL Hct 24.7(L) 35.6 - 45.5 % [facility] Blood 02/27/2024 5:42 AM AUTO CRANE DRIVER 02/27/2024 6:20 AM AUTO CRANE DRIVER Krysten Cohn MD LAB BLOOD ORDERABLES Final Result Performing Organization Address City/[facility]/ZIP Co de Phone Number [facility] [place] [address] * POCT glucose (02/27/2024 3:09 AM AUTO CRANE DRIVER) Glucose, POC 96 70 - 199 mg/dL Blood 02/27/2024 3:09 AM AUTO CRANE DRIVER 02/27/2024 3:09 AM AUTO CRANE DRIVER Krysten Cohn MD LAB POCT ORDERABLES - DEVICE Final Result Performing Organization Address City/[facility]/ZIP Co de Phone Number [facility] [place] [address] * POCT glucose (02/26/2024 11:33 PM AUTO CRANE DRIVER) Glucose, POC 105 70 - 199 mg/dL Blood 02/26/2024 11:3 3 PM AUTO CRANE DRIVER 02/26/2024 11:33 PM AUTO CRANE DRIVER Krysten Cohn MD LAB POCT ORDERABLES - DEVICE Final Result Performing Organization Address [facility] Co de Phone Number [facility] [place] [address] * (ABNORMAL) Blood gas, venous (02/26/2024 11:05 PM AUTO CRANE DRIVER) pH, Venous 7.32 7.32 - 7.43 PCO2, Venous 57(H) 40 - 50 mmHg [facility] PO2, Venous 46 mmHg [facility] Comment: Interpretive Data No Reference Range Established Current Interpretive Data was last revised on 2017. HCO3 Venous, Calculated 30 20 - 30 mmol/L [facility] BE, venous 2 mmol/L [facility] Comment: Interpretive Data No Reference Range Established Current Interpretive Data was last revised on 2017. Blood 02/26/2024 11:0 5 PM AUTO CRANE DRIVER 02/26/2024 11:12 PM AUTO CRANE DRIVER Beata Pérez NP LAB BLOOD ORDERABLES F inal Result [facility] [place] [address] * (ABNORMAL) Aerobic and anaerobic culture and gram stain Aspirate Leg, left (02/26/2024 9:35 PM AUTO CRANE DRIVER) Direct Specimen Exam Stain: No polymorphonuclear leukocytes seen. No organisms seen. Report Final Report: Few Staphylococcus aureus Methicillin susceptible (MSSA) by penicillin binding protein 2a (PBP2a) testing. This isolate is presumed to be resistant to clindamycin based on detection of inducible clindamycin resistance. Clindamycin may still be effective in some patients. (.) [facility] Organism STAPHYLOCOCCUS AUREUS [facility] Aspirate (Leg, left) 02/26/2024 9:35 PM AUTO CRANE DRIVER 02/26/2024 9:45 PM AUTO CRANE DRIVER Narrative [facility] - 2024 12:42 PM AUTO CRANE DRIVER Specimen received on an ESwab. Testing performed by [facility] Microbiology Laboratory ([phone]) Specimens submitted from normally sterile body sites [...] us Krysten Cohn MD LAB MICROBIOLOGY - [facility] ORDERABLES Final Result [facility] [place] [address] * POCT glucose (02/26/2024 9:35 PM AUTO CRANE DRIVER) [facility] Glucose, POC 114 70 - 199 mg/dL Blood 02/26/2024 9:35 PM AUTO CRANE DRIVER 02/26/2024 9:35 PM AUTO CRANE DRIVER us Krysten Cohn MD LAB POCT ORDERABLES - DEVICE Final Result Performing Organization Address [facility] Co de Phone Number [facility] [place] [address] * Critical Care (02/26/2024 9:25 PM AUTO CRANE DRIVER) Narrative Gabriel Tsang MD - 02/26/2024 9:25 PM AUTO CRANE DRIVER Gabriel Tsang MD 02/27/2024 5:45 AM Critical [...] plan with the ICU team and other medical/risk consultant staff, making frequent assessments and decisions [...] Result * (ABNORMAL) eGFR (02/26/2024 7:22 PM AUTO CRANE DRIVER) [facility] eGFR 16(L) >=60 mL/min/1. 73 m2 Comment: [...] last reviewed 2021. Blood 02/26/2024 7:22 PM AUTO CRANE DRIVER 02/26/2024 7:41 PM AUTO CRANE DRIVER us Krysten Cohn MD LAB BLOOD ORDERABLES Final Result [facility] [place] [address] * (ABNORMAL) Differential, auto (02/26/2024 7:22 PM AUTO CRANE DRIVER) Neutrophil abs 17.3(H) 1.5 - 6.5 K/cumm Imm gran abs 0.2(H) 0.0 - 0.1 K/cumm [facility] Lymphocyte abs 1.1 0.8 - 3.3 K/cumm [facility] Monocyte abs 1.7(H) 0.2 - 0.8 K/cumm [facility] Eosinophil abs 0.1 0.0 - 0.5 K/cumm [facility] Basophil abs 0.1 0.0 - 0.1 K/cumm [facility] Neutrophil pct 84.7 % [facility] Comment: Interpretive Data Percent cell count reference ranges are not reported, since discordance with absolute values may lead to misinterpretation of CBC data. Current Interpretive Data was last revised on 2017. Imm gran pct 1.0 % [facility] Comment: Interpretive Data Percent cell count reference ranges are not reported, since discordance with absolute values may lead to misinterpretation of CBC data. Current Interpretive Data was last revised on 2017. Lymphocyte pct 5.4 % [facility] Comment: Interpretive Data Percent cell count reference ranges are not reported, since discordance with absolute values may lead to misinterpretation of CBC data. Current Interpretive Data was last revised on 2017. Monocyte pct 8.3 % [facility] Comment: Interpretive Data Percent cell count reference ranges are not reported, since discordance with absolute values may lead to misinterpretation of CBC data. Current Interpretive Data was last revised on 2017. Eosinophil pct 0.3 % [facility] Comment: Interpretive Data Percent cell count reference ranges are not reported, since discordance with absolute values may lead to misinterpretation of CBC data. Current Interpretive Data was last revised on 2017. Basophil pct 0.3 % [facility] Comment: Interpretive Data Percent cell count reference ranges are not reported, since discordance with absolute values may lead to misinterpretation of CBC data. Current Interpretive Data was last revised on 2017. Blood 02/26/2024 7:22 PM AUTO CRANE DRIVER 02/26/2024 7:40 PM AUTO CRANE DRIVER Beata Pérez NP LAB BLOOD ORDERABLES F inal Result [facility] [place] [address] * (ABNORMAL) CBC with auto differential (02/26/2024 7:22 PM AUTO CRANE DRIVER) WBC 20.4(H) 3.8 - 9.9 K/cumm Hgb 8.1(L) 11.9 - 15.5 g/dL [facility] Hct 25.2(L) 35.6 - 45.5 % [facility] Plt 125(L) 150 - 400 K/cumm [facility] MPV 9.9 9.1 - 12.3 fL [facility] RBC 2.34(L) 3.90 - 5.20 M/cumm [facility] MCV 107.7(H) 81.3 - 96.4 fL [facility] MCH 34.6(H) 27.1 - 33.3 pg [facility] MCHC 32.1(L) 32.3 - 35.7 g/dL [facility] RDW CV 15.3(H) 11.1 - 14.9 % [facility] RDW SD 60.9(H) 35.7 - 48.1 fL [facility] NRBC abs 0.04(H) 0.00 - 0.01 K/cumm [facility] Blood 02/26/2024 7:22 PM AUTO CRANE DRIVER 02/26/2024 7:40 PM AUTO CRANE DRIVER Beata Pérez NP LAB BLOOD ORDERABLES F inal Result Performing Organization Address [facility] Co de Phone Number [facility] [place] [address] * (ABNORMAL) Protime-INR (02/26/2024 7:22 PM AUTO CRANE DRIVER) PT 15.5(H) 9.7 - 13.0 sec INR 1.42(H) 0.90 - 1.20 [facility] Comment: Interpretive data Oral anticoagulant therapeutic ranges: Venous thromboembolism prophylaxis or treatment: 2.0-3.0 CARDIOLOGY Standard range: 2.0-3.0 High-intensity range: 2.5-3.5 Refer to indication-specific guidelines for appropriate target ranges for prosthetic heart valve replacement. Current interpretive data was last revised on 2019. Blood 02/26/2024 7:22 PM AUTO CRANE DRIVER 02/26/2024 7:40 PM AUTO CRANE DRIVER Krysten Cohn MD LAB BLOOD ORDERABLES Final Result Performing Organization Address [facility]/ZIP Co de Phone Number [facility] [place] [address] * (ABNORMAL) Phosphorus (02/26/2024 7:22 PM AUTO CRANE DRIVER) Phosphorus, pl 6.1(H) 2.3 - 4.5 mg/dL Blood 02/26/2024 7:22 PM AUTO CRANE DRIVER 02/26/2024 7:41 PM AUTO CRANE DRIVER Beata Pérez NP LAB BLOOD ORDERABLES F inal Result Performing Organization Address City/[facility] Co de Phone Number [facility] [place] [address] * Magnesium (02/26/2024 7:22 PM AUTO CRANE DRIVER) [facility] Magnesium 1.6 1.4 - 2.5 mg/dL Blood 02/26/2024 7:22 PM AUTO CRANE DRIVER 02/26/2024 7:41 PM AUTO CRANE DRIVER Result [facility] Beata Pérez NP LAB BLOOD ORDERABLES F inal Result Performing Organization Address [facility] de Phone Number [facility] [place] [address] * (ABNORMAL) Blood gas, venous (02/26/2024 7:22 PM AUTO CRANE DRIVER) [facility] pH, Venous 7.31(L) 7.32 - 7.43 PCO2, Venous 60(H) 40 - 50 mmHg [facility] PO2, Venous 47 mmHg [facility] Comment: Interpretive Data No Reference Range Established Current Interpretive Data was last revised on 2017. HCO3 Venous, Calculated 31(H) 20 - 30 mmol/L [facility] BE, venous 3 mmol/L [facility] Comment: Interpretive Data No Reference Range Established Current Interpretive Data was last revised on 2017. Blood 02/26/2024 7:22 PM AUTO CRANE DRIVER 02/26/2024 7:32 PM AUTO CRANE DRIVER Beata Stigi Beto MEDICAL TECHNICAL WRITER LAB BLOOD ORDERABLES F inal Result [facility] [place] [address] * (ABNORMAL) Comprehensive metabolic panel (02/26/2024 7:22 PM AUTO CRANE DRIVER) Sodium 136 135 - 145 mmol/L Potassium, pl 3.5 3.3 - 4.9 mmol/L [facility] Chloride 95(L) 97 - 110 mmol/L [facility] CO2 29 22 - 32 mmol/L [facility] Anion gap 12 2 - 15 mmol/L [facility] BUN 50(H) 6 - 25 mg/dL [facility] Creatinine 3.28(H) 0.60 - 1.10 mg/dL [facility] Glucose 106 70 - 199 mg/dL [facility] Comment: Interpretive Data Fasting glucose [...] 2022. Calcium 8.4(L) 8.5 - 10.3 mg/dL [facility] Bilirubin, total 0.6 0.1 - 1.2 mg/dL [facility] Protein, pl 5.5(L) 6.5 - 8.5 g/dL [facility] Albumin 2.3(L) 3.5 - 5.0 g/dL [facility] Alk phos 190(H) 40 - 130 Units/L [facility] ALT 11 7 - 45 Units/L [facility] AST 32 10 - 45 Units/L [facility] Blood 02/26/2024 7:22 PM AUTO CRANE DRIVER 02/26/2024 7:41 PM AUTO CRANE DRIVER Krysten Cohn MD LAB BLOOD ORDERABLES Final Result [facility] [place] [address] * XR Chest 1 View (02/26/2024 6:26 PM AUTO CRANE DRIVER) Anatomical Region Laterality Modality Body, Chest N/A Computed Radiogr aphy 02/26/2024 8:26 PM AUTO CRANE DRIVER Impressions 02/26/2024 8:26 PM AUTO CRANE DRIVER The current study is compared with the [...] Alexa Hernández M.D. Narrative 02/26/2024 8:26 PM AUTO CRANE DRIVER EXAMINATION: 1 view chest radiograph Procedure Note [...] signed by: Alexa Hernández M.D. Beata Pérez MEDICAL TECHNICAL WRITER IMG XR PROCEDURES Nicole l Result * (ABNORMAL) Blood gas, venous (02/26/2024 5:14 PM AUTO CRANE DRIVER) pH, Venous 7.31(L) 7.32 - 7.43 PCO2, Venous 58(H) 40 - 50 mmHg [facility] PO2, Venous 49 mmHg [facility] Comment: Interpretive Data No Reference Range Established Current Interpretive Data was last revised on 2017. HCO3 Venous, Calculated 30 20 - 30 mmol/L [facility] BE, venous 2 mmol/L [facility] Comment: Interpretive Data No Reference Range Established Current Interpretive Data was last revised on 2017. Blood 02/26/2024 5:14 PM AUTO CRANE DRIVER 02/26/2024 5:37 PM AUTO CRANE DRIVER Beata Pérez NP LAB BLOOD ORDERABLES F inal Result [facility] [place] [address] * CT Chest PE (CTA) W Contrast (02/26/2024 4:33 PM AUTO CRANE DRIVER) Anatomical Region Laterality Modality Body N/A Computed Tomogra phy 02/26/2024 4:39 PM AUTO CRANE DRIVER Impressions 02/26/2024 4:42 PM AUTO CRANE DRIVER No pulmonary embolism. Findings of mild-moderate pulmonary edema. Dictated by: Cuca Bhakta MD, MPH The radiology attending physician has personally reviewed this study, and had reviewed and/or edited this written report and agrees with it. Electronically signed by: Kehinde Otto M.D., MPH Narrative 02/26/2024 4:42 PM AUTO CRANE DRIVER EXAMINATION: CT CHEST PE (CTA) W CONTRAST [...] Electronically signed by: Kehinde Otto M.D., MPH us Krysten Cohn MD IMG CT PROCEDURES Fin al Result * CT Entire Lower Extremity Left W Contrast (02/26/2024 4:33 PM AUTO CRANE DRIVER) Anatomical Region Laterality Modality Lower Extremities Left Computed Tomog sheela 02/26/2024 5:07 PM AUTO CRANE DRIVER Impressions 02/26/2024 5:13 PM AUTO CRANE DRIVER 1. Large left prepatellar rim-enhancing fluid collection [...] John Contreras M.D. Narrative 02/26/2024 5:13 PM AUTO CRANE DRIVER EXAMINATION: CT ENTIRE LOWER EXTREMITY LEFT W [...] Result * POCT glucose (02/26/2024 3:34 PM AUTO CRANE DRIVER) Glucose, POC 114 70 - 199 mg/dL Blood 02/26/2024 3:34 PM AUTO CRANE DRIVER 02/26/2024 3:34 PM AUTO CRANE DRIVER Krysten Cohn MD LAB POCT ORDERABLES - DEVICE Final Result [facility] [place] [address] * US Vein Duplex Lower Extremity Bilateral Complete (02/26/2024 12:41 PM AUTO CRANE DRIVER) Anatomical Region Laterality Modality Vascular Bilateral Ultrasound 02/26/2024 11:3 1 AM AUTO CRANE DRIVER Narrative 02/27/2024 10:22 PM AUTO CRANE DRIVER [facility] - Department of Vascular Surgery, Vascular Laboratory [address] [place] [id number] Lower Extremity Venous Ultrasound Report Patient Name: NOLVIA BRANCH M : 1970 (53y 11m) Study Date: 02/26/2024 11:31:12 AM Gender: F [place] [facility] [place] [id number] Ref Provider: ANDREZ MOYER Quality: Adequate Order [...] bilateral lower extremity swelling - FINDINGS: Performing Machine Finisher: Merna Lynne RDMS, NEVINT. Bilateral: Venous Doppler signals in the bilateral [...] Ander Jaffe MD FACS 02/27/2024 10:22:04 PM AUTO CRANE DRIVER Procedure Note Ander Jaffe MD - 02/27/2024 [facility] - Department of Vascular Surgery,Vascular Laboratory [address] [place] [address] Lower Extremity Venous Ultrasound Report Patient Name: NOLVIA BRANCH M : 1970 (53y 11m) Study Date: 02/26/2024 11:31:12 AM Gender: F [place] [facility] [place] Location: [id number] Ref Provider: ANDREZ MOYER Quality: Adequate Order Provider: ANDREZ MOYER PROCEDURES: Vascular Report: Venous Duplex imaging was performed bilaterally in the lower extremities.The common femoral, femoral, popliteal, posterior tibial, peroneal veins wereevaluated for patency, spontaneity and phasicity with Doppler, compression and augmentationmaneuvers. Great saphenous vein proximal at the junction was evaluated with compressionmaneuvers. INDICATIONS: bilateral lower extremity swelling - FINDINGS: Performing Machine Finisher: Merna Lynne RDMS, RVT. Bilateral: Venous Doppler signals in [...] Ander Jaffe MD FACS 02/27/2024 10:22:04 PM AUTO CRANE DRIVER us Andrez Moyer MD [facility] [place] PROCEDURES Final Result * XR Chest 1 View (02/26/2024 12:35 PM AUTO CRANE DRIVER) Anatomical Region Laterality Modality Body, Chest N/A Computed Radiogr aphy 02/26/2024 12:5 0 PM AUTO CRANE DRIVER Impressions 02/26/2024 12:50 PM AUTO CRANE DRIVER Comparison is made to chest radiograph dated [...] Minnie Rivera M.D. Narrative 02/26/2024 12:50 PM AUTO CRANE DRIVER EXAMINATION: 1 view chest radiograph Procedure Note [...] arthroplasty. Electronically signed by: Minnie Rivera M.D. Krysten Cohn MD IMG XR PROCEDURES Fin al Result * Blood culture Blood (02/26/2024 12:35 PM AUTO CRANE DRIVER) Report Final Report: No growth Blood 02/26/2024 12:3 5 PM AUTO CRANE DRIVER 02/26/2024 1:25 PM AUTO CRANE DRIVER Narrative [facility] - 03/01/2024 4:00 PM AUTO CRANE DRIVER From a different site than #1. Collection->Peripheral [...] performance characteristics have been verified by the [facility] Microbiology Laboratory. For questions about this culture, contact the Microbiology Laboratory at [phone]. Interpretive data was last revised on 23. Krysten Cohn MD LAB MICROBIOLOGY - GE NERAL ORDERABLES Final Result Performing Organization Address [facility] Co de Phone Number [facility] [place] [address] * Oxyhemoglobin, central venous (02/26/2024 12:24 PM AUTO CRANE DRIVER) Oxyhemoglobin, CV 73.1 % Comment: Interpretive Data No reference range established. Current interpretive data was last revised 2019. Blood 02/26/2024 12:2 4 PM AUTO CRANE DRIVER 02/26/2024 12:31 PM AUTO CRANE DRIVER Krysten Cohn MD LAB BLOOD ORDERABLES Final Result Performing Organization Address [facility] Co de Phone Number [facility] [place] [address] * (ABNORMAL) Erythrocyte sedimentation rate (02/26/2024 12:18 PM AUTO CRANE DRIVER) Erythrocyte sedimentation rate 67(H) 1 - 30 mm/hr Blood 02/26/2024 12:1 8 PM AUTO CRANE DRIVER 02/26/2024 12:50 PM AUTO CRANE DRIVER Beata Pérez NP LAB BLOOD ORDERABLES F inal Result Performing Organization Address [facility] Co de Phone Number [facility] [place] [address] * (ABNORMAL) CRP (acute phase) (02/26/2024 12:18 PM AUTO CRANE DRIVER) Pathologist [facility] CRP 541.4(H) <=10.0 mg/L Comment:Repeated on Dilution Blood 02/26/2024 12:1 8 PM AUTO CRANE DRIVER 02/26/2024 12:49 PM AUTO CRANE DRIVER Beata Pérez MEDICAL TECHNICAL WRITER LAB BLOOD ORDERABLES F inal Result [facility] [place] [address] * (ABNORMAL) Blood gas, venous (02/26/2024 12:18 PM AUTO CRANE DRIVER) Pathologist [facility] pH, Venous 7.31(L) 7.32 - 7.43 PCO2, Venous 58(H) 40 - 50 mmHg [facility] PO2, Venous 39 mmHg [facility] Comment: Interpretive Data No Reference Range Established Current Interpretive Data was last revised on 2017. HCO3 Venous, Calculated 30 20 - 30 mmol/L [facility] BE, venous 2 mmol/L [facility] Comment: Interpretive Data No Reference Range Established Current Interpretive Data was last revised on 2017. Blood 02/26/2024 12:1 8 PM AUTO CRANE DRIVER 02/26/2024 12:31 PM AUTO CRANE DRIVER Beata Pérez NP LAB BLOOD ORDERABLES F inal Result Performing Organization Address City/[facility]/ZIP Co de Phone Number [facility] [place] [address] * POCT glucose (02/26/2024 11:45 AM AUTO CRANE DRIVER) Pathologist [facility] Glucose, POC 80 70 - 199 mg/dL Blood 02/26/2024 11:4 5 AM AUTO CRANE DRIVER 02/26/2024 11:45 AM AUTO CRANE DRIVER us Krysten Cohn MD LAB POCT ORDERABLES - DEVICE Final Result [facility] [place] [address] * CA ARTL CATHJ/CANNULJ MNTR/TRANSFUSION SPX PRQ (02/26/2024 11:24 AM AUTO CRANE DRIVER) Narrative Andrez Moyer MD - 02/26/2024 11:24 AM AUTO CRANE DRIVER Odalis Beebe MD 02/26/2024 11:26 AM Arterial Line Insertion Date/Time: 02/26/2024 11:24 AM Performed by: Odalis Beebe MD Authorized by: Odalis Beebe MD [place] Protocol: RN Notified of Procedure: yes Informed consent: Patient/inventory representative/guardian agrees and accepts Patient's stated name/ [...] (ABNORMAL) Blood culture Blood (02/26/2024 11:13 AM AUTO CRANE DRIVER) Direct Specimen Exam Molecular Analysis: Staphylococcus epidermidis (methicillin-resis tant) detected by tru [facility] BCID-GP panel. Single positive culture may represent contamination. This test does not exclude the possibility of a mixed bacterial infection. Notification of: Staphylococcus epidermidis (methicillin-resis tant) called to and read back by: Jones London MD, on 02/27/2024 10:23:47 by: Jarret Harrison([facility]) Direct Specimen Exam Stain: Gram Positive Cocci in clusters Time to culture positivity (aerobic media): 18.7 hours Notification of: Gram Positive Cocci in clusters called to and read back by: Jones London MD, on 02/27/2024 08:40:08 by: Jarret Harrison([facility]) [facility] Report Final Report: Staphylococcus epidermidis Single blood culture positive for this microorganism. Isolate is a possible contaminant. If a similar isolate is recovered from a second blood culture collected within 3 days of this culture, both will be evaluated and, if determined to be the same species, antimicrobial susceptibility testing will be performed. (.) [facility] Organism STAPHYLOCOCCUS EPIDERMIDIS [facility] Blood 02/26/2024 11:1 3 AM AUTO CRANE DRIVER 02/26/2024 1:24 PM AUTO CRANE DRIVER Narrative [facility] - 03/02/2024 9:35 AM AUTO CRANE DRIVER Collection->Peripheral 1. Blood cultures are incubated for [...] performance characteristics have been verified by the [facility] Microbiology Laboratory. For questions about this culture, contact the Microbiology Laboratory at [phone]. Interpretive data was last revised on 23. us Krysten Cohn MD LAB MICROBIOLOGY - [employer] ORDERABLES Final Result [facility] [place] [address] * TRANSTHORACIC ECHO (TTE) COMPLETE W DOPPLER/CF W CONTRAST (02/26/2024 10:03 AM AUTO CRANE DRIVER) LV EF 55 % CARDIOREPORT Anatomical Region Laterality Modality Ultrasound 02/26/2024 9:30 AM AUTO CRANE DRIVER Narrative 02/26/2024 10:21 AM AUTO CRANE DRIVER Patient name: Nolvia Branch Date of test: 02/26/2024 Type of test: TTE w/Doppler Hospital #: 0 Date of : 1970 (F) Machine Finisher: Marley Barnett RDCS Referring Physician: ANDREZ MOYER MD Contrast Agent: 1.1 ml Optison Administered, (1.9 ml wasted). Contrast Administered by: reza RN Supervised/Interpreted by: Pastora Rodriguez MD Diagnosis: Dyspnea/Shortness of breath Location: [facility] Reason for test: Acute hypoxia w/ RV [...] 2=Hypo 3=Akinetic 4=Dyskin./Aneurysm 0=Not visualized) Parasternal Long Mathis:MAS=1 BAS=1 MIL=1 COY=1 Parasternal Short Mathis:MAS=1 MIS=1 WI=1 MIL=1 MAL=1 MA=1 Apical 4 Chambers:=1 MIS=1 BIS=1 BAL=1 MAL=1 AL=1 AC=1 Apical 2 Chambers:AI=1 WI=1 BI=1 BA=1 MA=1 AA=1 AC=1 LV Global [...] MD By signing this report, the attending line analyst certifies that he or she has personally supervised and interpreted the echocardiogram and has reviewed and or edited and agrees with the written comments contained within the report. Procedure Note Dave Rodriguez MD - 02/26/2024 Patient name: Nolvia Branch Date of test: 02/26/2024 Type of test: TTE /[facility] #: 0 Date of : 1970 (F) Machine Finisher: Marley Barnett RDCS Referring Physician: ANDREZ MOYER MD Contrast Agent: 1.1 ml Optison Administered, (1.9 ml wasted). Contrast Administered by: reza SHEIKH Supervised/Interpreted by: Pastora Rodriguez MD Diagnosis: Dyspnea/Shortness of breath Location: [facility] Reason for test: Acute hypoxia w/ RV [...] 2=Hypo 3=Akinetic 4=Dyskin./Aneurysm 0=Not visualized) Parasternal Long Mathis:MAS=1 BAS=1 MIL=1 COY=1 Parasternal Short Mathis:MAS=1 MIS=1 WI=1 MIL=1 MAL=1 MA=1 Apical 4 Chambers:=1 MIS=1 BIS=1 BAL=1 MAL=1 AL=1 AC=1 Apical 2 Chambers:AI=1 WI=1 BI=1 BA=1 MA=1 AA=1 AC=1 LV Global [...] MD By signing this report, the attending line analyst certifies that he or she has personally supervised and interpreted the echocardiogram and has reviewed and or edited and agrees with the written comments contained within the report. Andrez Moyer MD CV ECHO PROCEDURES Final Result * CA INSJ NON-TUNNELED CENTRAL VENOUS CATH AGE 5 YR/> (02/26/2024 10:00 AM AUTO CRANE DRIVER) Narrative Andrez Moyer MD - 02/26/2024 10:00 AM AUTO CRANE DRIVER Ann Whitmore MD 02/27/2024 2:43 PM Trialysis catheter insertion Date/Time: 02/26/2024 10:00 AM Performed by: Ann Whitmore MD Authorized by: Ann Whitmore MD [place] Protocol: RN Notified of Procedure: yes Informed [...] and Chemistries, Venous - (02/26/2024 9:56 AM AUTO CRANE DRIVER) pH, Morris POC 7.32 7.32 - 7.43 pCO2, morris POC 56(H) 40 - 50 mmHg [facility] pO2, morris POC 54 mmHg [facility] Na, POC 136 135 - 145 mmol/L [facility] K POC 3.3 3.3 - 4.9 mmol/L [facility] Comment: Interpretive Data Not all point of care methods assess for hemolysis. Confirm with instrument and retest K+ if not consistent with clinical signs and symptoms. Current Interpretive Data was last revised on 2023. Cl, POC 99 97 - 110 mmol/L [facility] Ionized Ca, POC 4.81 4.50 - 5.10 mg/dL [facility] Glucose, POC 104 70 - 199 mg/dL [facility] Lactate, POC 1.3 0.7 - 2.2 mmol/L [facility] O2 Sat, Morris POC (Angelica) 85 % [facility] Base excess, POC 2.2 mmol/L [facility] HCO3, [place] POC 29 20 - 30 mmol/L [facility] Hct, POC 25.0(L) 36.3 - 45.3 % [facility] Total Hb, POC 8.4(L) 11.9 - 15.5 g/dL [facility] Blood 02/26/2024 9:56 AM AUTO CRANE DRIVER 02/26/2024 9:56 AM AUTO CRANE DRIVER us Krysten Cohn MD LAB POCT ORDERABLES - DEVICE Final Result [facility] Department [place] [address] * Lactate (02/26/2024 9:50 AM AUTO CRANE DRIVER) Pathologist [facility] Lactate 1.3 0.7 - 2.0 mmol/L Blood 02/26/2024 9:50 AM AUTO CRANE DRIVER 02/26/2024 10:12 AM AUTO CRANE DRIVER us Krysten Cohn MD LAB BLOOD ORDERABLES Final Result Performing Organization Address City/[facility] Co de Phone Number [facility] [place] [address] * (ABNORMAL) eGFR (02/26/2024 9:50 AM AUTO CRANE DRIVER) [facility] eGFR 15(L) >=60 mL/min/1. 73 m2 Comment: [...] last reviewed 2021. Blood 02/26/2024 9:50 AM AUTO CRANE DRIVER 02/26/2024 10:12 AM AUTO CRANE DRIVER us Krysten Cohn MD LAB BLOOD ORDERABLES Final Result Performing Organization Address City/[facility]/ZIP Co de Phone Number [facility] [place] [address] * (ABNORMAL) Differential, auto (02/26/2024 9:50 AM AUTO CRANE DRIVER) Neutrophil abs 17.6(H) 1.5 - 6.5 K/cumm Imm gran abs 0.2(H) 0.0 - 0.1 K/cumm [facility] Lymphocyte abs 1.0 0.8 - 3.3 K/cumm [facility] Monocyte abs 1.9(H) 0.2 - 0.8 K/cumm [facility] Eosinophil abs 0.1 0.0 - 0.5 K/cumm [facility] Basophil abs 0.2(H) 0.0 - 0.1 K/cumm [facility] Neutrophil pct 84.5 % [facility] Comment: Interpretive Data Percent cell count reference ranges are not reported, since discordance with absolute values may lead to misinterpretation of CBC data. Current Interpretive Data was last revised on 2017. Imm gran pct 0.9 % [facility] Comment: Interpretive Data Percent cell count reference ranges are not reported, since discordance with absolute values may lead to misinterpretation of CBC data. Current Interpretive Data was last revised on 2017. Lymphocyte pct 4.6 % [facility] Comment: Interpretive Data Percent cell count reference ranges are not reported, since discordance with absolute values may lead to misinterpretation of CBC data. Current Interpretive Data was last revised on 2017. Monocyte pct 8.9 % [facility] Comment: Interpretive Data Percent cell count reference ranges are not reported, since discordance with absolute values may lead to misinterpretation of CBC data. Current Interpretive Data was last revised on 2017. Eosinophil pct 0.3 % [facility] Comment: Interpretive Data Percent cell count reference ranges are not reported, since discordance with absolute values may lead to misinterpretation of CBC data. Current Interpretive Data was last revised on 2017. Basophil pct 0.8 % [facility] Comment: Interpretive Data Percent cell count reference ranges are not reported, since discordance with absolute values may lead to misinterpretation of CBC data. Current Interpretive Data was last revised on 2017. Blood 02/26/2024 9:50 AM AUTO CRANE DRIVER 02/26/2024 10:11 AM AUTO CRANE DRIVER Krysten Cohn MD LAB BLOOD ORDERABLES Final Result [facility] [place] [address] * (ABNORMAL) CBC with auto differential (02/26/2024 9:50 AM AUTO CRANE DRIVER) WBC 20.8(H) 3.8 - 9.9 K/cumm Hgb 8.3(L) 11.9 - 15.5 g/dL [facility] Hct 26.5(L) 35.6 - 45.5 % [facility] Plt 137(L) 150 - 400 K/cumm [facility] MPV 9.9 9.1 - 12.3 fL [facility] RBC 2.44(L) 3.90 - 5.20 M/cumm [facility] MCV 108.6(H) 81.3 - 96.4 fL [facility] MCH 34.0(H) 27.1 - 33.3 pg [facility] MCHC 31.3(L) 32.3 - 35.7 g/dL [facility] RDW CV 15.4(H) 11.1 - 14.9 % [facility] RDW SD 61.4(H) 35.7 - 48.1 fL [facility] NRBC abs 0.02(H) 0.00 - 0.01 K/cumm [facility] Blood 02/26/2024 9:50 AM AUTO CRANE DRIVER 02/26/2024 10:11 AM AUTO CRANE DRIVER Krysten Cohn MD LAB BLOOD ORDERABLES Final Result [facility] [place] [address] * (ABNORMAL) Blood gas, venous (02/26/2024 9:50 AM AUTO CRANE DRIVER) pH, Venous 7.29(L) 7.32 - 7.43 PCO2, Venous 62(H) 40 - 50 mmHg [facility] PO2, Venous 41 mmHg [facility] Comment: Interpretive Data No Reference Range Established Current Interpretive Data was last revised on 2017. HCO3 Venous, Calculated 31(H) 20 - 30 mmol/L [facility] BE, venous 2 mmol/L [facility] Comment: Interpretive Data No Reference Range Established Current Interpretive Data was last revised on 2017. Blood 02/26/2024 9:50 AM AUTO CRANE DRIVER 02/26/2024 10:04 AM AUTO CRANE DRIVER us Krysten Cohn MD LAB BLOOD ORDERABLES Final Result [facility] Department [place] [address] * (ABNORMAL) Comprehensive metabolic panel (02/26/2024 9:50 AM AUTO CRANE DRIVER) Sodium 136 135 - 145 mmol/L Potassium, pl 3.5 3.3 - 4.9 mmol/L [facility] Chloride 94(L) 97 - 110 mmol/L [facility] CO2 30 22 - 32 mmol/L [facility] Anion gap 12 2 - 15 mmol/L [facility] BUN 50(H) 6 - 25 mg/dL [facility] Creatinine 3.55(H) 0.60 - 1.10 mg/dL [facility] Glucose 97 70 - 199 mg/dL [facility] Comment: Interpretive Data Fasting glucose [...] classification and Diagnosis of Diabetes Diabetes Care 2022; 46: S19-S40. Current interpretive data was last revised 2022. Calcium 9.1 8.5 - 10.3 mg/dL [facility] Bilirubin, total 0.6 0.1 - 1.2 mg/dL [facility] Protein, pl 5.8(L) 6.5 - 8.5 g/dL [facility] Albumin 2.3(L) 3.5 - 5.0 g/dL [facility] Alk phos 183(H) 40 - 130 Units/L [facility] ALT 13 7 - 45 Units/L [facility] AST 41 10 - 45 Units/L [facility] Blood 02/26/2024 9:50 AM AUTO CRANE DRIVER 02/26/2024 10:12 AM AUTO CRANE DRIVER us Krysten Cohn MD LAB BLOOD ORDERABLES Final Result [facility] [place] [address] * XR Chest 1 View (02/26/2024 9:09 AM AUTO CRANE DRIVER) Anatomical Region Laterality Modality Body, Chest N/A Computed Radiogr aphy 02/26/2024 9:56 AM AUTO CRANE DRIVER Impressions 02/26/2024 9:56 AM AUTO CRANE DRIVER The current study is compared with the prior radiograph dated 02/25/2024. Again seen are patchy multifocal airspace opacities concerning for pneumonia. No effusions. There is no pneumothorax.. The heart and mediastinal contours are stable.. Right shoulder prosthesis partially imaged Electronically signed by: Alexa Hernández M.D. Narrative 02/26/2024 9:56 AM AUTO CRANE DRIVER EXAMINATION: 1 view chest radiograph Procedure Note [...] Result * (ABNORMAL) eGFR (02/26/2024 7:52 AM AUTO CRANE DRIVER) eGFR 14(L) >=60 mL/min/1. 73 m2 Comment: [...] last reviewed 2021. Blood 02/26/2024 7:52 AM AUTO CRANE DRIVER 02/26/2024 8:04 AM AUTO CRANE DRIVER us Krysten oChn MD LAB BLOOD ORDERABLES Final Result [facility] Department of Laboratories [place], [place] [id number] * (ABNORMAL) Protime-INR (02/26/2024 7:52 AM AUTO CRANE DRIVER) PT 14.8(H) 9.7 - 13.0 sec INR 1.36(H) 0.90 - 1.20 [facility] Comment: Interpretive data Oral anticoagulant therapeutic ranges: Venous thromboembolism prophylaxis or treatment: 2.0-3.0 CARDIOLOGY Standard range: 2.0-3.0 High-intensity range: 2.5-3.5 Refer to indication-specific guidelines for appropriate target ranges for prosthetic heart valve replacement. Current interpretive data was last revised on 2019. Blood 02/26/2024 7:52 AM AUTO CRANE DRIVER 02/26/2024 8:03 AM AUTO CRANE DRIVER us Krysten Cohn MD LAB BLOOD ORDERABLES Final Result Performing Organization Address [facility] Co de Phone Number [facility] [place] [address] * Infection Prevention MRSA Only (Staphylococcus aureus) Culture Nasal (02/26/2024 7:52 AM AUTO CRANE DRIVER) Report Final Report: Negative Nasal 02/26/2024 7:52 AM AUTO CRANE DRIVER 02/26/2024 1:31 PM AUTO CRANE DRIVER Narrative [facility] - 02/27/2024 2:19 PM AUTO CRANE DRIVER Testing performed by [facility] ([phone]). Krysten Cohn MD LAB MICROBIOLOGY - GE NERAL ORDERABLES Final Result Performing Organization Address [facility] [place] [address] * (ABNORMAL) Blood gas, venous (02/26/2024 7:52 AM AUTO CRANE DRIVER) pH, Venous 7.31(L) 7.32 - 7.43 PCO2, Venous 56(H) 40 - 50 mmHg [facility] PO2, Venous 93 mmHg [facility] Comment: Interpretive Data No Reference Range Established Current Interpretive Data was last revised on 2017. HCO3 Venous, Calculated 30 20 - 30 mmol/L [facility] BE, venous 2 mmol/L [facility] Comment: Interpretive Data No Reference Range Established Current Interpretive Data was last revised on 2017. Blood 02/26/2024 7:52 AM AUTO CRANE DRIVER 02/26/2024 7:59 AM AUTO CRANE DRIVER Krysten Cohn MD LAB BLOOD ORDERABLES Final Result Performing Organization Address [facility] Co de Phone Number [facility] [place] [address] * (ABNORMAL) Comprehensive metabolic panel (02/26/2024 7:52 AM AUTO CRANE DRIVER) Sodium 138 135 - 145 mmol/L Potassium, pl 3.5 3.3 - 4.9 mmol/L [facility] Chloride 97 97 - 110 mmol/L [facility] CO2 30 22 - 32 mmol/L [facility] Anion gap 11 2 - 15 mmol/L [facility] BUN 48(H) 6 - 25 mg/dL [facility] Creatinine 3.56(H) 0.60 - 1.10 mg/dL [facility] Glucose 102 70 - 199 mg/dL [facility] Comment: Interpretive Data Fasting glucose [...] 2022. Calcium 7.9(L) 8.5 - 10.3 mg/dL [facility] Bilirubin, total 0.6 0.1 - 1.2 mg/dL [facility] Protein, pl 5.4(L) 6.5 - 8.5 g/dL [facility] Albumin 2.5(L) 3.5 - 5.0 g/dL [facility] Alk phos 173(H) 40 - 130 Units/L [facility] ALT 10 7 - 45 Units/L [facility] AST 38 10 - 45 Units/L [facility] Blood 02/26/2024 7:52 AM AUTO CRANE DRIVER 02/26/2024 8:04 AM AUTO CRANE DRIVER us Krysten Cohn MD LAB BLOOD ORDERABLES Final Result [facility] Department [place] [address] * POCT glucose (02/26/2024 7:14 AM AUTO CRANE DRIVER) Glucose, POC 85 70 - 199 mg/dL Blood 02/26/2024 7:14 AM AUTO CRANE DRIVER 02/26/2024 7:14 AM AUTO CRANE DRIVER us Krysten Cohn MD LAB POCT ORDERABLES - DEVICE Final Result [facility] [place] [address] * Critical Care (02/26/2024 7:12 AM AUTO CRANE DRIVER) Narrative Andrez Moyer MD - 02/26/2024 7:12 AM AUTO CRANE DRIVER Andrez Moyer MD 02/26/2024 7:13 AM Critical Care [...] plan with the ICU team and other medical/risk consultant staff, making frequent assessments and decisions [...] (ABNORMAL) Hemoglobin and hematocrit (02/26/2024 3:29 AM AUTO CRANE DRIVER) Hgb 8.5(L) 11.9 - 15.5 g/dL Hct 27.4(L) 35.6 - 45.5 % [facility] Blood 02/26/2024 3:29 AM AUTO CRANE DRIVER 02/26/2024 3:39 AM AUTO CRANE DRIVER us Krysten Cohn MD LAB BLOOD ORDERABLES Final Result Performing Organization Address [facility] de Phone Number [facility] Department [place] [address] * (ABNORMAL) Blood gas, venous (02/26/2024 3:29 AM AUTO CRANE DRIVER) Pathologist [facility] pH, Venous 7.26(L) 7.32 - 7.43 PCO2, Venous 65(H) 40 - 50 mmHg [facility] PO2, Venous 41 mmHg [facility] Comment: Interpretive Data No Reference Range Established Current Interpretive Data was last revised on 2017. HCO3 Venous, Calculated 30 20 - 30 mmol/L [facility] BE, venous 1 mmol/L [facility] Comment: Interpretive Data No Reference Range Established Current Interpretive Data was last revised on 2017. Blood 02/26/2024 3:29 AM AUTO CRANE DRIVER 02/26/2024 3:35 AM AUTO CRANE DRIVER us Krysten Cohn MD LAB BLOOD ORDERABLES Final Result Performing Organization Address [facility] Co de Phone Number [facility] Department [place] [address] * XR Knee Left 1 or 2 Views (02/26/2024 3:14 AM AUTO CRANE DRIVER) Anatomical Region Laterality Modality Lower Extremities, Knee Left Digital Radiography 02/26/2024 6:03 AM AUTO CRANE DRIVER Impressions 02/26/2024 6:03 AM AUTO CRANE DRIVER 1. Limited evaluation of the left knee with mild to moderate tricompartmental osteoarthritis and without radiographic evidence of septic arthritis Electronically signed by: Jeremy Martin MD, PHD Narrative 02/26/2024 6:03 AM AUTO CRANE DRIVER EXAMINATION: Left knee one or 2 views [...] IMG XR PROCEDURES Fin al Result * CA INSJ NON-TUNNELED CENTRAL VENOUS CATH AGE 5 YR/> (02/26/2024 12:23 AM AUTO CRANE DRIVER) Narrative Barron Ernst MD - 02/26/2024 12:23 AM AUTO CRANE DRIVER Barron Ernst MD 02/26/2024 12:27 AM Central Line Insertion Date/Time: 02/26/2024 12:23 AM Performed by: Barron Ernst MD Authorized by: Barron Ernst MD [place] Protocol: RN Notified of Procedure: yes Informed [...] IN CLINIC/BEDSIDE ORDERABLES Fi nal Result * CA ARTL CATHJ/CANNULJ MNTR/TRANSFUSION SPX PRQ (02/26/2024 12:21 AM AUTO CRANE DRIVER) Narrative Barron Ernst MD - 02/26/2024 12:21 AM AUTO CRANE DRIVER Barron Ernst MD 02/26/2024 12:22 AM Arterial Line Insertion Date/Time: 02/26/2024 12:21 AM Performed by: Barron Ernst MD Authorized by: Barron Ernst MD [place] Protocol: RN Notified of Procedure: yes Informed [...] microscopic and culture Urine (02/25/2024 10:54 PM AUTO CRANE DRIVER) Color, ur Yellow Yellow Clarity, ur Turbid(A) Clear [facility] Specific gravity, ur 1.018 1.003 - 1.030 [facility] pH, urine 6.0 [facility] Comment: Interpretive Data U rine pH is affected by diet, medications, systemic acid-base disturbances, and renal tubular function. pH may affect urinary stone formation. For example, urine pH below 6.0 may help reduce the tendency for calcium phosphate stones and pH greater than 6.0 may reduce the tendency for uric acid stone formation. Source: [facility] [employer] Current Interpretive Data was last revised on 2017 Protein, ur ql 2+(A) Negative [facility] Glucose, ur ql Negative Negative [facility] Ketones, ur Negative Negative [facility] Bilirubin, ur Negative Negative [facility] Blood, ur 3+(A) Negative [facility] Urobilinogen, ur <2.0 <2.0 mg/dL [facility] Nitrite, ur Negative Negative [facility] Leukocyte esterase, ur 3+(A) Negative [facility] UA reflex comment Reflex to microscopic UA will be performed. [facility] Urine 02/25/2024 10:5 4 PM AUTO CRANE DRIVER 02/25/2024 11:02 PM AUTO CRANE DRIVER us Krysten Cohn MD LAB MICROBIOLOGY - [facility] ORDERABLES Final Result [facility] [place] [address] * (ABNORMAL) Urinalysis, microscopic only (02/25/2024 10:54 PM AUTO CRANE DRIVER) Pathologist [facility] WBC, ur >50(A) 0 - 5 /HPF RBC, ur >50(A) 0 - 2 /HPF [facility] Epithelial cells, squamous, ur 6-10(A) 0 - 5 /HPF [facility] Comment:Suggestive of contam ination. Consider recollection by clean catch. Bacteria, ur 1+(A) [facility] Mucous, ur Present(A) [facility] Culture Reflex Comment Reflex to urine culture will be performed. [facility] Urine 02/25/2024 10:5 4 PM AUTO CRANE DRIVER 02/25/2024 11:08 PM AUTO CRANE DRIVER us Krysten oChn MD LAB URINE ORDERABLES Final Result Performing Organization Address [facility] de Phone Number [facility] [place] [address] * Urine culture Urine (02/25/2024 10:54 PM AUTO CRANE DRIVER) Pathologist [facility] Report Final Report: Less than 100,000 colonies/mL (clinically insignificant growth based on current clinical standards) Organism (CLINICALLY INSIGNIFICANT GROWTH [facility] Urine 02/25/2024 10:5 4 PM AUTO CRANE DRIVER 02/26/2024 1:13 AM AUTO CRANE DRIVER Narrative [facility] - 02/27/2024 7:56 AM AUTO CRANE DRIVER Urine culture reflexed based upon urinalysis results. Testing performed by [facility] ([phone]) us Krysten Cohn MD LAB MICROBIOLOGY - GE NERAL ORDERABLES Final Result Performing Organization Address City/[facility] Co de Phone Number [facility] [place] [address] * (ABNORMAL) Blood gas, venous (02/25/2024 10:54 PM AUTO CRANE DRIVER) Pathologist [facility] pH, Venous 7.28(L) 7.32 - 7.43 PCO2, Venous 63(H) 40 - 50 mmHg [facility] PO2, Venous 58 mmHg [facility] Comment: Interpretive Data No Reference Range Established Current Interpretive Data was last revised on 2017. HCO3 Venous, Calculated 30 20 - 30 mmol/L [facility] BE, venous 2 mmol/L [facility] Comment: Interpretive Data No Reference Range Established Current Interpretive Data was last revised on 2017. Blood 02/25/2024 10:5 4 PM AUTO CRANE DRIVER 02/25/2024 11:01 PM AUTO CRANE DRIVER us Krysten Cohn MD LAB BLOOD ORDERABLES Final Result [facility] [place] [address] * Critical Care (02/25/2024 7:45 PM AUTO CRANE DRIVER) Narrative Gabriel Tsang MD - 02/25/2024 7:45 PM AUTO CRANE DRIVER Gabriel Tsang MD 02/26/2024 9:09 PM Critical [...] plan with the ICU team and other medical/risk consultant staff, making frequent assessments and decisions [...] Troponin I high-sensitivity 6-hour (02/25/2024 7:37 PM AUTO CRANE DRIVER) Trop I hs 73(H) <=17 ng/L Comment: Interpretive Data For further hscTnI resources including the diagnostic algorithm and an aid in interpretation, copy and paste this link: https://bjhlab.testcatalog.org/show/[email or web address] Current Interpretive Data last revised 2019. Trop I hs delta See Comment ng/L [facility] Comment:Inappropriate collec tion time to report a delta. Trop I hs pct delta See Comment % [facility] Comment:Inappropriate collec tion time to report a delta. Trop I hs interp See Comment [facility] Comment:Inappropriate collec tion time to report a delta. Blood 02/25/2024 7:37 PM AUTO CRANE DRIVER 02/25/2024 8:02 PM AUTO CRANE DRIVER Andrez Moyer MD LAB BLOOD ORDERABLES Final Resul t [facility] [place] [address] * (ABNORMAL) eGFR (02/25/2024 7:37 PM AUTO CRANE DRIVER) eGFR 15(L) >=60 mL/min/1. 73 m2 Comment: [...] last reviewed 2021. Blood 02/25/2024 7:37 PM AUTO CRANE DRIVER 02/25/2024 7:52 PM AUTO CRANE DRIVER us Krysten Cohn MD LAB BLOOD ORDERABLES Final Result Performing Organization Address [facility] Co de Phone Number [facility] [place] [address] * (ABNORMAL) Calcium, ionized (02/25/2024 7:37 PM AUTO CRANE DRIVER) Calcium, Ionized 3.65(L) 4.50 - 5.10 mg/dL Blood 02/25/2024 7:37 PM AUTO CRANE DRIVER 02/25/2024 7:52 PM AUTO CRANE DRIVER us Andrez Moyer MD LAB BLOOD ORDERABLES Final Resul t Performing Organization Address [facility] [place] [address] * (ABNORMAL) Protime-INR (02/25/2024 7:37 PM AUTO CRANE DRIVER) PT 14.9(H) 9.7 - 13.0 sec INR 1.37(H) 0.90 - 1.20 [facility] Comment: Interpretive data Oral anticoagulant therapeutic ranges: Venous thromboembolism prophylaxis or treatment: 2.0-3.0 CARDIOLOGY Standard range: 2.0-3.0 High-intensity range: 2.5-3.5 Refer to indication-specific guidelines for appropriate target ranges for prosthetic heart valve replacement. Current interpretive data was last revised on 2019. Blood 02/25/2024 7:37 PM AUTO CRANE DRIVER 02/25/2024 7:58 PM AUTO CRANE DRIVER Krysten Cohn MD LAB BLOOD ORDERABLES Final Result Performing Organization Address [facility] [place] [address] * (ABNORMAL) CBC without differential (02/25/2024 7:37 PM AUTO CRANE DRIVER) [facility] WBC 24.0(H) 3.8 - 9.9 K/cumm Hgb 8.7(L) 11.9 - 15.5 g/dL [facility] Hct 28.6(L) 35.6 - 45.5 % [facility] Plt 198 150 - 400 K/cumm [facility] MPV 10.0 9.1 - 12.3 fL [facility] RBC 2.55(L) 3.90 - 5.20 M/cumm [facility] MCV 112.2(H) 81.3 - 96.4 fL [facility] Comment:MCV delta due to savi gical procedure. MCH 34.1(H) 27.1 - 33.3 pg [facility] MCHC 30.4(L) 32.3 - 35.7 g/dL [facility] RDW CV 15.6(H) 11.1 - 14.9 % [facility] RDW SD 64.5(H) 35.7 - 48.1 fL [facility] NRBC abs 0.02(H) 0.00 - 0.01 K/cumm [facility] Blood 02/25/2024 7:37 PM AUTO CRANE DRIVER 02/25/2024 8:02 PM AUTO CRANE DRIVER Andrez Moyer MD LAB BLOOD ORDERABLES Final Resul t Performing Organization Address [facility] [place] de Phone Number [facility] [place] [address] * (ABNORMAL) Phosphorus (02/25/2024 7:37 PM AUTO CRANE DRIVER) [facility] Phosphorus, pl 7.3(H) 2.3 - 4.5 mg/dL Blood 02/25/2024 7:37 PM AUTO CRANE DRIVER 02/25/2024 7:52 PM AUTO CRANE DRIVER Andrez Moyer MD LAB BLOOD ORDERABLES Final Resul t Performing Organization Address [facility] Co de Phone Number [facility] [place] [address] * Magnesium (02/25/2024 7:37 PM AUTO CRANE DRIVER) Magnesium 1.4 1.4 - 2.5 mg/dL Blood 02/25/2024 7:37 PM AUTO CRANE DRIVER 02/25/2024 7:52 PM AUTO CRANE DRIVER Andrez Moyer MD LAB BLOOD ORDERABLES Final Resul t [facility] [place] [address] * (ABNORMAL) Comprehensive metabolic panel (02/25/2024 7:37 PM AUTO CRANE DRIVER) Pathologist [facility] Sodium 137 135 - 145 mmol/L Potassium, pl 3.7 3.3 - 4.9 mmol/L [facility] Chloride 93(L) 97 - 110 mmol/L [facility] CO2 29 22 - 32 mmol/L [facility] Anion gap 15 2 - 15 mmol/L [facility] BUN 45(H) 6 - 25 mg/dL [facility] Creatinine 3.43(H) 0.60 - 1.10 mg/dL [facility] Glucose 100 70 - 199 mg/dL [facility] Comment: Interpretive Data Fasting glucose [...] 2022. Calcium 7.7(L) 8.5 - 10.3 mg/dL [facility] Bilirubin, total 0.6 0.1 - 1.2 mg/dL [facility] Protein, pl 6.0(L) 6.5 - 8.5 g/dL [facility] Albumin 2.6(L) 3.5 - 5.0 g/dL [facility] Alk phos 167(H) 40 - 130 Units/L [facility] ALT 15 7 - 45 Units/L [facility] AST 42 10 - 45 Units/L [facility] Blood 02/25/2024 7:37 PM AUTO CRANE DRIVER 02/25/2024 7:52 PM AUTO CRANE DRIVER us Krysten Cohn MD LAB BLOOD ORDERABLES Final Result [facility] [place] [address] * (ABNORMAL) POC Blood Gas and Chemistries, Venous - (02/25/2024 7:17 PM AUTO CRANE DRIVER) pH, Morris POC 7.26(L) 7.32 - 7.43 pCO2, morris POC 67(H) 40 - 50 mmHg [facility] pO2, morris POC 45 mmHg [facility] Na, POC 135 135 - 145 mmol/L [facility] K POC 3.6 3.3 - 4.9 mmol/L [facility] Comment: Interpretive Data Not all point of care methods assess for hemolysis. Confirm with instrument and retest K+ if not consistent with clinical signs and symptoms. Current Interpretive Data was last revised on 2023. Cl, POC 96(L) 97 - 110 mmol/L [facility] Ionized Ca, POC 3.94(L) 4.50 - 5.10 mg/dL [facility] Glucose, POC 102 70 - 199 mg/dL [facility] Lactate, POC 1.7 0.7 - 2.2 mmol/L [facility] O2 Sat, Morris POC (Angelica) 70 % [facility] Base excess, POC 2.1 mmol/L [facility] HCO3, Morris POC 30 20 - 30 mmol/L [facility] Hct, POC 28.0(L) 36.3 - 45.3 % [facility] Total Hb, POC 9.3(L) 11.9 - 15.5 g/dL [facility] Blood 02/25/2024 7:17 PM AUTO CRANE DRIVER 02/25/2024 7:17 PM AUTO CRANE DRIVER us Krysten Cohn MD LAB POCT ORDERABLES - DEVICE Final Result Performing Organization Address [facility] Co de Phone Number [facility] [place] [address] * POCT glucose (02/25/2024 5:28 PM AUTO CRANE DRIVER) Glucose, POC 125 70 - 199 mg/dL Blood 02/25/2024 5:28 PM AUTO CRANE DRIVER 02/25/2024 5:28 PM AUTO CRANE DRIVER Krysten Cohn MD LAB POCT ORDERABLES - DEVICE Final Result Performing Organization Address [facility] [place] de Phone Number MADELEINE [facility] [place] [address] * CA INSJ NON-TUNNELED CENTRAL VENOUS CATH AGE 5 YR/> (02/25/2024 5:21 PM AUTO CRANE DRIVER) Narrative Andrez Moyer MD - 02/25/2024 5:21 PM AUTO CRANE DRIVER Cody Valera MD 02/25/2024 5:28 PM Central Line Insertion Date/Time: 02/25/2024 5:21 PM Performed by: Cody Valera MD Authorized by: Andrez Moyer MD [place] Protocol: RN Notified of Procedure: yes Informed [...] and matched to patient identification: n/a Responsible republican for transporting specimen(s) to lab determined: n/a Andrez Moyer MD IN CLINIC/BEDSIDE ORDERABLES Fin al Result * (ABNORMAL) Troponin I high-sensitivity 2-hour (02/25/2024 4:43 PM AUTO CRANE DRIVER) Pathologist [facility] Trop I hs 72(H) <=17 ng/L Comment: Interpretive Data For further hscTnI resources including the diagnostic algorithm and an aid in interpretation, copy and paste this link: https://bjhlab.testcatalog.org/show/hsTrop-1 Current Interpretive Data last revised 2019. Trop I hs delta -8 ng/L [facility] Trop I hs interp Equivocal [facility] Blood 02/25/2024 4:43 PM AUTO CRANE DRIVER 02/25/2024 5:27 PM AUTO CRANE DRIVER Andrez Moyer MD LAB BLOOD ORDERABLES Final Resul t [facility] [place] [address] * ECG 12 lead (02/25/2024 4:04 PM AUTO CRANE DRIVER) Pathologist [facility] Ventricular Rate EKG/Min [address] [facility] Atrial Rate [address] [facility] CA-Interval (MSEC) [address] [facility] QRS-Interval (MSEC) [address] [facility] QT-Interval (MSEC) [address] [facility] QTc [address] [facility] P Mathis [address] [facility] R Mathis [address] [facility] T Mathis [address] [facility] Diagnosis Normal sinus rhythm Low voltage QRS Abnormal ECG When compared with ECG of 15-FEB-2024 08:38, No significant change was found Confirmed by LATHA HAAS M.D ([id number]) on 02/28/2024 12:24:[address] [facility] 02/25/2024 4:04 PM AUTO CRANE DRIVER 02/28/2024 12:24 PM AUTO CRANE DRIVER us Andrez Moyer MD ECG ORDERABLES Final Result Performing Organization Address [facility] Co de Phone Number [facility] * POCT glucose (02/25/2024 3:07 PM AUTO CRANE DRIVER) [facility] Glucose, POC 145 70 - 199 mg/dL Blood 02/25/2024 3:07 PM AUTO CRANE DRIVER 02/25/2024 3:07 PM AUTO CRANE DRIVER us Krysten Cohn MD LAB POCT ORDERABLES - DEVICE Final Result Performing Organization Address [facility]/ZIP Co de Phone Number [facility] [place] [address] * Critical Care (02/25/2024 3:02 PM AUTO CRANE DRIVER) Narrative Andrez Moyer MD - 02/25/2024 3:02 PM AUTO CRANE DRIVER Andrez Moyer MD 02/26/2024 6:59 AM Critical [...] plan with the ICU team and other medical/risk consultant staff, making frequent assessments and decisions [...] (baseline, 2hr, 4hr, 6hr) (02/25/2024 2:55 PM AUTO CRANE DRIVER) [facility] Trop I hs 80(H) <=17 ng/L Comment: Interpretive Data For further hscTnI resources including the diagnostic algorithm and an aid in interpretation, copy and paste this link: https://bjhlab.testcatalog.org/show/hsTrop-[email or web address] Current Interpretive Data last revised 2019. Blood 02/25/2024 2:5 5 PM AUTO CRANE DRIVER 02/25/2024 3:03 PM AUTO CRANE DRIVER Andrez Moyer MD LAB BLOOD ORDERABLES Final Resul t [facility] [place] [address] * Respiratory pathogen panel Nasopharyngeal (02/25/2024 2:55 PM AUTO CRANE DRIVER) Influenza A RNA Not Detected Not Detected Influenza B RNA Not Detected Not Detected [facility] RSV RNA Not Detected Not Detected [facility] COVID-19 RNA Not Detected Not Detected [facility] Coronavirus 229E RNA Not Detected Not Detected [facility] Coronavirus HKU1 RNA Not Detected Not Detected [facility] Coronavirus NL63 RNA Not Detected Not Detected [facility] Coronavirus OC43 RNA Not Detected Not Detected [facility] Adenovirus DNA Not Detected Not Detected [facility] Metapneumovirus RNA Not Detected Not Detected [facility] Rhinovirus/Enterov irus RNA Not Detected Not Detected [facility] Parainfluenza 1 RNA Not Detected Not Detected [facility] Parainfluenza 2 RNA Not Detected Not Detected [facility] Parainfluenza 3 RNA Not Detected Not Detected [facility] Parainfluenza 4 RNA Not Detected Not Detected [facility] B. pertussis DNA Not Detected Not Detected [facility] B. parapertussis DNA Not Detected Not Detected [facility] C. pneumoniae DNA Not Detected Not Detected [facility] M. pneumoniae DNA Not Detected Not Detected [facility] Nasopharyngeal 02/25/2024 2: 55 PM AUTO CRANE DRIVER 02/25/2024 3:03 PM AUTO CRANE DRIVER Narrative [facility] - 02/25/2024 4:05 PM AUTO CRANE DRIVER Is the Patient experiencing symptoms consistent with COVID?->Unknown Surveillance testing for transplant patient?->No Interpretive Data [employer] FilmArray Respiratory Panel (RP2.1) assay is a [...] assay has FDA clearance for testing of MEDICAL TECHNICAL WRITER swabs. The performance of additional specimen types has been assessed by the performing laboratory. The performance characteristics of this assay have been determined by [facility] Molecular Infectious Disease Laboratory. Current interpretive data was last revised on 21. Krysten Cohn MD LAB MICROBIOLOGY - [facility] ORDERABLES Final Result [facility] [place] [address] * CA ARTL CATHJ/CANNULJ MNTR/TRANSFUSION SPX PRQ (02/25/2024 12:00 PM AUTO CRANE DRIVER) Narrative Andrez Moyer MD - 02/25/2024 12:00 PM AUTO CRANE DRIVER Andrez Moyer MD 02/26/2024 7:11 AM Arterial Line Insertion Date/Time: 02/25/2024 12:00 PM Performed by: Andrez Moyer MD Authorized by: Andrez Moyer MD [place] Protocol: RN Notified of Procedure: yes Informed [...] wrist around. Placement is hindered by habitus. us Andrez Moyer MD IV THERAPY ORDERABLES Final Resu lt * POCT glucose (02/25/2024 11:06 AM AUTO CRANE DRIVER) Glucose, POC 130 70 - 199 mg/dL Blood 02/25/2024 11:0 6 AM AUTO CRANE DRIVER 02/25/2024 11:06 AM AUTO CRANE DRIVER us Krysten Cohn MD LAB POCT ORDERABLES - DEVICE Final Result [facility]LEINE [facility] [place] [address] * Lactate (02/25/2024 11:05 AM AUTO CRANE DRIVER) Pathologist [facility] Lactate 1.7 0.7 - 2.0 mmol/L Blood 02/25/2024 11:0 5 AM AUTO CRANE DRIVER 02/25/2024 11:16 AM AUTO CRANE DRIVER Andrez Moyer MD LAB BLOOD ORDERABLES Final Resul t Performing Organization Address [facility]/ZIP Co de Phone Number [facility] [place] [address] * (ABNORMAL) eGFR (02/25/2024 11:05 AM AUTO CRANE DRIVER) [facility] eGFR 17(L) >=60 mL/min/1. 73 m2 [...] reviewed 2021. Blood 02/25/2024 11:0 5 AM AUTO CRANE DRIVER 02/25/2024 11:12 AM AUTO CRANE DRIVER us Andrez Moyer MD LAB BLOOD ORDERABLES Final Resul t [facility] [place] [address] * (ABNORMAL) Pro B-type natriuretic peptide (02/25/2024 11:05 AM AUTO CRANE DRIVER) NT-proBNP 36,208(H) <=300 pg/mL Comment: Interpretive Comments: [...] as advanced age. - References: 1. Sammie JL et.al. Eur Heart J. 2006:27:330-337. 2. Caleb RW, Rashel SAMPSON. J. AM Sierra Cardiol: Cardiovasc Imag. 2009;2: 216- 225. Interpretive Data Last Revised Date: 2017. Blood 02/25/2024 11:0 5 AM AUTO CRANE DRIVER 02/25/2024 11:12 AM AUTO CRANE DRIVER us Andrez Moyer MD LAB BLOOD ORDERABLES Final Resul t [facility]INE DEY [facility] [place] [address] * (ABNORMAL) Thyroid Function [place] (02/25/2024 11:05 AM AUTO CRANE DRIVER) TSH 4.96(H) 0.30 - 4.20 mcIUnit/mL Blood 02/25/2024 11:0 5 AM AUTO CRANE DRIVER 02/25/2024 11:12 AM AUTO CRANE DRIVER us Andrez Moyer MD LAB BLOOD ORDERABLES Final Resul t Performing Organization Address [facility] [place] de Phone Number [facility] [place] [address] * (ABNORMAL) Calcium, ionized (02/25/2024 11:05 AM AUTO CRANE DRIVER) Calcium, Ionized 3.49(L) 4.50 - 5.10 mg/dL Blood 02/25/2024 11:0 5 AM AUTO CRANE DRIVER 02/25/2024 11:12 AM AUTO CRANE DRIVER us Andrez Moyer MD LAB BLOOD ORDERABLES Final Resul t Performing Organization Address [facility] de Phone Number [facility] [place] [address] * Beta-hydroxybutyrate (02/25/2024 11:05 AM AUTO CRANE DRIVER) Beta-Hydroxybut yrate 0.4 0.0 - 0.5 mmol/L Blood 02/25/2024 11:0 5 AM AUTO CRANE DRIVER 02/25/2024 11:12 AM AUTO CRANE DRIVER Result [facility] us Andrez Moyer MD LAB BLOOD ORDERABLES Edited Resu lt - Final Performing Organization Address [facility] Co de Phone Number [facility] [place] [address] * Blood culture Blood (02/25/2024 11:05 AM AUTO CRANE DRIVER) Report Final Report: No growth Blood 02/25/2024 11:0 5 AM AUTO CRANE DRIVER 02/25/2024 11:22 AM AUTO CRANE DRIVER Narrative [facility] - 02/29/2024 12:00 PM AUTO CRANE DRIVER 1. Blood cultures are incubated for 4 [...] performance characteristics have been verified by the [facility] Microbiology Laboratory. For questions about this culture, contact the Microbiology Laboratory at [phone]. Interpretive data was last revised on 23. Andrez Moyer MD LAB MICROBIOLOGY - GENERAL ORDER DELFINA Final Result MADELEINE DEY [facility] [place] [address] * Blood culture Blood (02/25/2024 11:05 AM AUTO CRANE DRIVER) Report Final Report: No growth Blood 02/25/2024 11:0 5 AM AUTO CRANE DRIVER 02/25/2024 11:22 AM AUTO CRANE DRIVER Narrative MADELEINE DEY - 02/29/2024 12:00 PM AUTO CRANE DRIVER 1. Blood cultures are incubated for 4 [...] performance characteristics have been verified by the [facility] Microbiology Laboratory. For questions about this culture, contact the Microbiology Laboratory at [phone]. Interpretive data was last revised on 23. Andrez Moyer MD LAB MICROBIOLOGY - GENERAL ORDER DELFINA Final Result Performing Organization Address [facility] de Phone Number [facility] [place] [address] * (ABNORMAL) aPTT (02/25/2024 11:05 AM AUTO CRANE DRIVER) aPTT 27(L) 28 - 38 sec Comment: Interpretive Data Heparin therapeutic range: 66.0 - 100.0 seconds. Range based on correlation with therapeutic heparin activity range of 0.3 - 0.7 Units/mL. Current interpretive data was last revised on 2022. Blood 02/25/2024 11:0 5 AM AUTO CRANE DRIVER 02/25/2024 11:20 AM AUTO CRANE DRIVER Andrez Moyer MD LAB BLOOD ORDERABLES Final Resul t Performing Organization Address [facility] de Phone Number [facility] [place] [address] * (ABNORMAL) Protime-INR (02/25/2024 11:05 AM AUTO CRANE DRIVER) Pathologist [facility] PT 15.4(H) 9.7 - 13.0 sec INR 1.42(H) 0.90 - 1.20 [facility] Comment: Interpretive data Oral anticoagulant therapeutic ranges: Venous thromboembolism prophylaxis or treatment: 2.0-3.0 CARDIOLOGY Standard range: 2.0-3.0 High-intensity range: 2.5-3.5 Refer to indication-specific guidelines for appropriate target ranges for prosthetic heart valve replacement. Current interpretive data was last revised on 2019. Blood 02/25/2024 11:0 5 AM AUTO CRANE DRIVER 02/25/2024 11:20 AM AUTO CRANE DRIVER Andrez Moyer MD LAB BLOOD ORDERABLES Final Resul t Performing Organization Address [facility] Co de Phone Number [facility] [place] [address] * (ABNORMAL) CBC without differential (02/25/2024 11:05 AM AUTO CRANE DRIVER) WBC 23.7(H) 3.8 - 9.9 K/cumm Hgb 8.8(L) 11.9 - 15.5 g/dL [facility] Hct 27.4(L) 35.6 - 45.5 % [facility] Plt 203 150 - 400 K/cumm [facility] MPV 9.8 9.1 - 12.3 fL [facility] RBC 2.56(L) 3.90 - 5.20 M/cumm [facility] MCV 107.0(H) 81.3 - 96.4 fL [facility] MCH 34.4(H) 27.1 - 33.3 pg [facility] MCHC 32.1(L) 32.3 - 35.7 g/dL [facility] RDW CV 15.7(H) 11.1 - 14.9 % [facility] RDW SD 60.9(H) 35.7 - 48.1 fL [facility] NRBC abs 0.03(H) 0.00 - 0.01 K/cumm [facility] Blood 02/25/2024 11:0 5 AM AUTO CRANE DRIVER 02/25/2024 11:16 AM AUTO CRANE DRIVER us Andrez Moyer MD LAB BLOOD ORDERABLES Final Resul t Performing Organization Address [facility]/ZIP Co de Phone Number [facility] [place] [address] * (ABNORMAL) T4, free (02/25/2024 11:05 AM AUTO CRANE DRIVER) Free T4 0.78(L) 0.90 - 1.70 ng/dL Blood 02/25/2024 11:0 5 AM AUTO CRANE DRIVER 02/25/2024 11:12 AM AUTO CRANE DRIVER Narrative MADELEINE [facility] - 02/25/2024 12:22 PM AUTO CRANE DRIVER This test was reflexed from a TSH result. us Andrez Moyer MD LAB BLOOD ORDERABLES Edited Resu lt - Final Performing Organization Address City/[facility]/[place] [address] * (ABNORMAL) Phosphorus (02/25/2024 11:05 AM AUTO CRANE DRIVER) [facility] Phosphorus, pl 6.5(H) 2.3 - 4.5 mg/dL Blood 02/25/2024 11:0 5 AM AUTO CRANE DRIVER 02/25/2024 11:12 AM AUTO CRANE DRIVER Result Mark Moyer MD LAB BLOOD ORDERABLES Final Resul t Performing Organization Address City/[facility]/ZIP Co de Phone Number [facility] [place] [address] * Magnesium (02/25/2024 11:05 AM AUTO CRANE DRIVER) [facility] Magnesium 1.4 1.4 - 2.5 mg/dL Blood 02/25/2024 11:0 5 AM AUTO CRANE DRIVER 02/25/2024 11:12 AM AUTO CRANE DRIVER us Andrez Moyer MD LAB BLOOD ORDERABLES Final Resul t [facility] [place] [address] * (ABNORMAL) Blood gas, arterial (02/25/2024 11:05 AM AUTO CRANE DRIVER) pH, Art 7.34(L) 7.35 - 7.45 PCO2, Arterial 53(H) 35 - 45 mmHg [facility] PO2, Arterial 138(H) 83 - 108 mmHg [facility] HCO3 Art (Calculated) 29 20 - 30 mmol/L [facility] BE, art 2 mmol/L [facility] Comment: Interpretive Data No Reference Range Established Current Interpretive Data was last revised on 2017 O2 Sat Art (Measured) 99(H) 90 - 95 % [facility] Blood 02/25/2024 11:0 5 AM AUTO CRANE DRIVER 02/25/2024 11:11 AM AUTO CRANE DRIVER us Andrez Moyer MD LAB BLOOD ORDERABLES Final Resul t [facility] [place] [address] * (ABNORMAL) Lipid panel (02/25/2024 11:05 AM AUTO CRANE DRIVER) Cholesterol 97 30 - 199 mg/dL Comment: [...] revised on 2017. Triglycerides 276(H) <=149 mg/dL [facility] Comment: Interpretive Data Ages < or [...] revised on 2017. HDL 26(L) >=40 mg/dL [facility] Comment: Interpretive Data Ages < or = [...] 2017. LDL, calculated 29 <=129 mg/dL [facility] Comment: Interpretive Data Ages < or = [...] Expert Panel. Circulation 2004;110:227 3. Jose Alfredo Sanchez al. WALI Cardiol. 2020 July 04;5(5):540-548. doi: 10.1001/jamacardio.2020.0013 Current Interpretive Data was last revised on 2023. Non-HDL Cholesterol 71 mg/dL [facility] Comment: Interpretive Data Ages < or = [...] last revised on 2017. Chol/HDL ratio 4 [facility] Blood 02/25/2024 11:0 5 AM AUTO CRANE DRIVER 02/25/2024 11:12 AM AUTO CRANE DRIVER us Krysten Cohn MD LAB BLOOD ORDERABLES Final Result [facility] [place] [address] * (ABNORMAL) Comprehensive metabolic panel (02/25/2024 11:05 AM AUTO CRANE DRIVER) Sodium 132(L) 135 - 145 mmol/L Potassium, pl 3.5 3.3 - 4.9 mmol/L [facility] Chloride 89(L) 97 - 110 mmol/L [facility] CO2 27 22 - 32 mmol/L [facility] Anion gap 16(H) 2 - 15 mmol/L [facility] BUN 39(H) 6 - 25 mg/dL [facility] Creatinine 3.07(H) 0.60 - 1.10 mg/dL [facility] Glucose 117 70 - 199 mg/dL [facility] Comment: Interpretive Data Fasting glucose [...] 2022. Calcium 7.7(L) 8.5 - 10.3 mg/dL [facility] Bilirubin, total 0.6 0.1 - 1.2 mg/dL [facility] Protein, pl 5.8(L) 6.5 - 8.5 g/dL [facility] Albumin 2.8(L) 3.5 - 5.0 g/dL [facility] Alk phos 147(H) 40 - 130 Units/L [facility] ALT 16 7 - 45 Units/L [facility] AST 48(H) 10 - 45 Units/L [facility] Blood 02/25/2024 11:0 5 AM AUTO CRANE DRIVER 02/25/2024 11:12 AM AUTO CRANE DRIVER us Andrez Moyer MD LAB BLOOD ORDERABLES Final Resul t [facility] [place] [address] * POCT glucose (02/25/2024 8:23 AM AUTO CRANE DRIVER) [facility] Glucose, POC 137 70 - 199 mg/dL Blood 02/25/2024 8:23 AM AUTO CRANE DRIVER 02/25/2024 8:23 AM AUTO CRANE DRIVER us Krysten Cohn MD LAB POCT ORDERABLES - DEVICE Final Result Performing Organization Address City/[facility]/ZIP Co de Phone Number [facility] [place] [address] * (ABNORMAL) Arterial Blood gas w/Lactate POCT (02/25/2024 7:54 AM AUTO CRANE DRIVER) [facility] Lactate POC i-STAT 1.6 0.7 - 2.2 mmol/L pH POC 7.29(L) 7.35 - 7.45 [facility] pCO2, Art POC 67(H) 35 - 45 mmHg [facility] PO2 POC 217(H) 80 - 105 mmHg [facility] CO2, total POC 34(H) 20 - 30 mmol/L [facility] HCO3, POC 32(H) 21 - 30 mmol/L [facility] BE POC 6(H) -2 - 3 mmol/L [facility] O2 sat POC 100(H) 95 - 98 % [facility] Blood 02/25/2024 7:54 AM AUTO CRANE DRIVER 02/25/2024 7:54 AM AUTO CRANE DRIVER us Krysten Cohn MD LAB BLOOD ORDERABLES Final Result [facility] [place] [address] * XR Chest 1 View (02/25/2024 7:34 AM AUTO CRANE DRIVER) Anatomical Region Laterality Modality Body, Chest N/A Computed Radiogr aphy 02/25/2024 10:2 3 AM AUTO CRANE DRIVER Impressions 02/25/2024 10:23 AM AUTO CRANE DRIVER Comparison is made to chest radiograph of [...] Mini Wooten M.D. Narrative 02/25/2024 10:23 AM AUTO CRANE DRIVER EXAMINATION: 1 view chest radiograph Procedure Note [...] replacement. Electronically signed by: Mini Wooten M.D. us Krysten Cohn MD IMG XR PROCEDURES Fin al Result * (ABNORMAL) eGFR (02/25/2024 4:49 AM AUTO CRANE DRIVER) eGFR 18(L) >=60 mL/min/1. 73 m2 Comment: [...] last reviewed 2021. Blood 02/25/2024 4:49 AM AUTO CRANE DRIVER 02/25/2024 5:39 AM AUTO CRANE DRIVER us Krysten Cohn MD LAB BLOOD ORDERABLES Final Result [facility] [place] [address] * (ABNORMAL) Hemoglobin and hematocrit (02/25/2024 4:49 AM AUTO CRANE DRIVER) Hgb 9.2(L) 11.9 - 15.5 g/dL Hct 29.0(L) 35.6 - 45.5 % [facility] Blood 02/25/2024 4:49 AM AUTO CRANE DRIVER 02/25/2024 5:39 AM AUTO CRANE DRIVER us Krysten Cohn MD LAB BLOOD ORDERABLES Final Result [facility] [place] [address] * (ABNORMAL) Basic metabolic panel (02/25/2024 4:49 AM AUTO CRANE DRIVER) Pathologist [facility] Sodium 136 135 - 145 mmol/L Potassium, pl 3.4 3.3 - 4.9 mmol/L [facility] Chloride 94(L) 97 - 110 mmol/L [facility] CO2 30 22 - 32 mmol/L [facility] Anion gap 12 2 - 15 mmol/L [facility] BUN 39(H) 6 - 25 mg/dL [facility] Creatinine 2.97(H) 0.60 - 1.10 mg/dL [facility] Glucose 105 70 - 199 mg/dL [facility] Comment: Interpretive Data Fasting glucose [...] 2022. Calcium 7.4(L) 8.5 - 10.3 mg/dL [facility] Blood 02/25/2024 4:49 AM AUTO CRANE DRIVER 02/25/2024 5:39 AM AUTO CRANE DRIVER us Krysten Cohn MD LAB BLOOD ORDERABLES Final Result [facility] [place] [address] * (ABNORMAL) eGFR (02/24/2024 9:26 PM AUTO CRANE DRIVER) Pathologist [facility] eGFR 20(L) >=60 [...] last reviewed 2021. Blood 02/24/2024 9:26 PM AUTO CRANE DRIVER 02/24/2024 9:53 PM AUTO CRANE DRIVER Jovita Higuera MD LAB BLOOD ORDERABLES Final Result Performing Organization Address [facility] Co de Phone Number [facility] [place] [address] * (ABNORMAL) Hemoglobin and hematocrit (02/24/2024 9:26 PM AUTO CRANE DRIVER) [facility] Hgb 9.1(L) 11.9 - 15.5 g/dL Hct 28.4(L) 35.6 - 45.5 % [facility] Blood 02/24/2024 9:26 PM AUTO CRANE DRIVER 02/24/2024 9:55 PM AUTO CRANE DRIVER Jovita Higuera MD LAB BLOOD ORDERABLES Final Result Performing Organization Address [facility] Co de Phone Number [facility] [place] [address] * (ABNORMAL) Basic metabolic panel (02/24/2024 9:26 PM AUTO CRANE DRIVER) [facility] Sodium 137 135 - 145 mmol/L Potassium, pl 3.5 3.3 - 4.9 mmol/L [facility] Chloride 95(L) 97 - 110 mmol/L [facility] CO2 29 22 - 32 mmol/L [facility] Anion gap 13 2 - 15 mmol/L [facility] BUN 34(H) 6 - 25 mg/dL [facility] Creatinine 2.67(H) 0.60 - 1.10 mg/dL [facility] Comment:Reviewed Glucose 128 70 - 199 mg/dL [facility] Comment: Interpretive Data Fasting glucose [...] 2022. Calcium 7.5(L) 8.5 - 10.3 mg/dL [facility] Blood 02/24/2024 9:26 PM AUTO CRANE DRIVER 02/24/2024 9:53 PM AUTO CRANE DRIVER us Jovita Higuera MD LAB BLOOD ORDERABLES Final Result [facility] [place] [address] * POCT glucose (02/24/2024 9:17 PM AUTO CRANE DRIVER) Glucose, POC 152 70 - 199 mg/dL Blood 02/24/2024 9:17 PM AUTO CRANE DRIVER 02/24/2024 9:17 PM AUTO CRANE DRIVER us Krysten Cohn MD LAB POCT ORDERABLES - DEVICE Final Result [facility] [place] [address] * POCT glucose (02/24/2024 5:15 PM AUTO CRANE DRIVER) Glucose, POC 148 70 - 199 mg/dL Blood 02/24/2024 5:15 PM AUTO CRANE DRIVER 02/24/2024 5:15 PM AUTO CRANE DRIVER us Krysten Cohn MD LAB POCT ORDERABLES - DEVICE Final Result Performing Organization Address [facility] de Phone Number [facility] [place] [place] [address] * POCT glucose (02/24/2024 12:22 PM AUTO CRANE DRIVER) Glucose, POC 148 70 - 199 mg/dL Blood 02/24/2024 12:2 2 PM AUTO CRANE DRIVER 02/24/2024 12:22 PM AUTO CRANE DRIVER us Krysten Cohn MD LAB POCT ORDERABLES - DEVICE Final Result Performing Organization Address [facility] de Phone Number [facility] [place] [address] * POCT glucose (02/24/2024 9:55 AM AUTO CRANE DRIVER) Glucose, POC 145 70 - 199 mg/dL Blood 02/24/2024 9:55 AM AUTO CRANE DRIVER 02/24/2024 9:55 AM AUTO CRANE DRIVER us Krysten Cohn MD LAB POCT ORDERABLES - DEVICE Final Result Performing Organization Address [facility] Phone Number [facility] [place] [address] * (ABNORMAL) eGFR (02/23/2024 11:18 PM AUTO CRANE DRIVER) eGFR 47(L) >=60 mL/min/1. 73 m2 Comment: [...] reviewed 2021. Blood 02/23/2024 11:1 8 PM AUTO CRANE DRIVER 02/23/2024 11:44 PM AUTO CRANE DRIVER Elder Garza III, MD LAB BLOOD ORDERABL ES Final Result Performing Organization Address [facility] Co de Phone Number [facility] [place] [address] * (ABNORMAL) Hemoglobin and hematocrit (02/23/2024 11:18 PM AUTO CRANE DRIVER) Hgb 9.7(L) 11.9 - 15.5 g/dL Hct 30.3(L) 35.6 - 45.5 % [facility] Blood 02/23/2024 11:1 8 PM AUTO CRANE DRIVER 02/23/2024 11:46 PM AUTO CRANE DRIVER Narrative [facility] - 02/23/2024 11:56 PM AUTO CRANE DRIVER change to CBC when needed Elder Garza III, MD LAB BLOOD ORDERABL ES Final Result Performing Organization Address [facility] Co de Phone Number [facility] [place] [address] * (ABNORMAL) Basic metabolic panel (02/23/2024 11:18 PM AUTO CRANE DRIVER) Sodium 139 135 - 145 mmol/L Potassium, pl 3.3 3.3 - 4.9 mmol/L [facility] Chloride 96(L) 97 - 110 mmol/L [facility] CO2 32 22 - 32 mmol/L [facility] Anion gap 11 2 - 15 mmol/L [facility] BUN 28(H) 6 - 25 mg/dL [facility] Creatinine 1.33(H) 0.60 - 1.10 mg/dL [facility] Glucose 188 70 - 199 mg/dL [facility] Comment: Interpretive Data Fasting glucose [...] 2022. Calcium 7.6(L) 8.5 - 10.3 mg/dL [facility] Blood 02/23/2024 11:1 8 PM AUTO CRANE DRIVER 02/23/2024 11:44 PM AUTO CRANE DRIVER Narrative [facility] - 02/24/2024 12:14 AM AUTO CRANE DRIVER Daily Elder Garza III, MD LAB BLOOD ORDERABL ES Final Result Performing Organization Address [facility] Co de Phone Number [facility] [place] [address] * POCT glucose (02/23/2024 9:15 PM AUTO CRANE DRIVER) [facility] Signature Glucose, POC 135 70 - 199 mg/dL Blood 02/23/2024 9:15 PM AUTO CRANE DRIVER 02/23/2024 9:15 PM AUTO CRANE DRIVER us Krysten Cohn MD LAB POCT ORDERABLES - DEVICE Final Result Performing Organization Address [facility] Co de Phone Number [facility] [place] [address] * XR Shoulder Right 2+ View (02/23/2024 6:49 PM AUTO CRANE DRIVER) Anatomical Region Laterality Modality Upper Extremities, Shoulder Right Comp uted Radiography 02/23/2024 7:19 PM AUTO CRANE DRIVER Impressions 02/23/2024 7:19 PM AUTO CRANE DRIVER 1. 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 Electronically signed by: Jeremy Martin MD, PHD Narrative 02/23/2024 7:19 PM AUTO CRANE DRIVER EXAMINATION: Right shoulder 2+ views HISTORY: Right [...] MD IMG XR PROCEDURES Final Result * CA AN PROCEDURE PLACEHOLDER (02/23/2024 5:45 PM AUTO CRANE DRIVER) Narrative Kellie Black CRNA - 02/23/2024 5:45 PM AUTO CRANE DRIVER Kellie Black CRNA 02/23/2024 5:46 PM Peripheral IV Catheter Patient [...] MD PhD ANESTHESIA ORDERABLES Final Result * CA AN PROCEDURE PLACEHOLDER (02/23/2024 3:57 PM AUTO CRANE DRIVER) Narrative Kellie BlackhanieFILOMENA - 02/23/2024 3:57 PM AUTO CRANE DRIVER Kellie Blackhanie, FILOMENA 02/23/2024 3:57 PM Arterial Line Patient location: [...] MD PhD ANESTHESIA ORDERABLES Final Result * CA AN ELECTIVE ENDOTRACHEAL AIRWAY, CA AN PROCEDURE PLACEHOLDER (02/23/2024 3:37 PM AUTO CRANE DRIVER) Ben Palmer - 02/23/2024 3:37 PM AUTO CRANE DRIVER Ben Pappas 02/23/2024 3:38 PM Airway Patient [...] MD PhD ANESTHESIA ORDERABLES Final Result * CA AN PROCEDURE PLACEHOLDER (02/23/2024 2:49 PM AUTO CRANE DRIVER) Tricia Lofton MD - 02/23/2024 2:49 PM AUTO CRANE DRIVER Emile Monaco MD 02/23/2024 2:49 PM Peripheral [...] BW IP ANE LDA PERIPHERAL NERVE CATHETER, CA AN PROCEDURE PLACEHOLDER (02/23/2024 2:45 PM AUTO CRANE DRIVER) Tricia Lofton MD - 02/23/2024 2:45 PM AUTO CRANE DRIVER Emile Monaco MD 02/23/2024 2:49 PM Peripheral [...] esult * Check Sample (02/23/2024 12:52 PM AUTO CRANE DRIVER) ABO Rh A Positive BJ [facility] OTHER 02/23/2024 12:5 2 PM AUTO CRANE DRIVER 02/23/2024 1:00 PM AUTO CRANE DRIVER us Krysten Cohn MD LAB BLOOD ORDERABLES Final Result [facility] Department [place] [address] [facility] * TYPE AND SCREEN 14 DAY (02/15/2024 9:06 AM AUTO CRANE DRIVER) ABO Rh A Positive Sandra, indirect Negative CERNER [facility] Blood 02/15/2024 9:06 AM AUTO CRANE DRIVER 02/15/2024 10:35 AM AUTO CRANE DRIVER Narrative [facility] - 02/15/2024 11:35 AM AUTO CRANE DRIVER Is this test being ordered in advance for a procedure?->Yes Expected date of procedure:->02/23/24 Has the patient been transfused in the past 3 months?->No Has the patient been in the past 3 months?->No Marley Grover NP LAB BLOOD BANK TEST ORDKartik NEWELL Final Result Performing Organization Address [facility] Co de Phone Number [facility] [place] [address] * eGFR (02/15/2024 9:06 AM AUTO CRANE DRIVER) eGFR 87 >=60 mL/min/1. 73 m2 Comment: [...] last reviewed 2021. Blood 02/15/2024 9:06 AM AUTO CRANE DRIVER 02/15/2024 10:09 AM AUTO CRANE DRIVER us Krysten Cohn MD LAB BLOOD ORDERABLES Final Result Performing Organization Address [facility] Co de Phone Number [facility] [place] [address] * Vitamin D 25 hydroxy (02/15/2024 9:06 AM AUTO CRANE DRIVER) Pathologist [facility] Vitamin D 25-OH 47 30 - 80 ng/mL Blood 02/15/2024 9:06 AM AUTO CRANE DRIVER 02/15/2024 10:09 AM AUTO CRANE DRIVER us Krysten Cohn MD LAB BLOOD ORDERABLES Final Result Performing Organization Address [facility] Co de Phone Number [facility] [place] [address] * (ABNORMAL) CBC without differential (02/15/2024 9:06 AM AUTO CRANE DRIVER) [facility] WBC 5.8 3.8 - 9.9 K/cumm Hgb 12.8 11.9 - 15.5 g/dL [facility] Hct 39.4 35.6 - 45.5 % [facility] Plt 200 150 - 400 K/cumm [facility] MPV 9.2 9.1 - 12.3 fL [facility] RBC 3.69(L) 3.90 - 5.20 M/cumm [facility] MCV 106.8(H) 81.3 - 96.4 fL [facility] MCH 34.7(H) 27.1 - 33.3 pg [facility] MCHC 32.5 32.3 - 35.7 g/dL [facility] RDW CV 15.5(H) 11.1 - 14.9 % [facility] RDW SD 61.2(H) 35.7 - 48.1 fL [facility] NRBC abs 0.00 0.00 - 0.01 K/cumm [facility] Blood 02/15/2024 9:06 AM AUTO CRANE DRIVER 02/15/2024 10:09 AM AUTO CRANE DRIVER us Marley Grover NP LAB BLOOD ORDERABLES Fin al Result Performing Organization Address [facility]/ZIP Co de Phone Number [facility] [place] [address] * (ABNORMAL) Comprehensive metabolic panel (02/15/2024 9:06 AM AUTO CRANE DRIVER) Sodium 138 135 - 145 mmol/L Potassium, pl 3.8 3.3 - 4.9 mmol/L [facility] Chloride 93(L) 97 - 110 mmol/L [facility] CO2 34(H) 22 - 32 mmol/L [facility] Anion gap 11 2 - 15 mmol/L [facility] BUN 13 6 - 25 mg/dL [facility] Creatinine 0.80 0.60 - 1.10 mg/dL [facility] Glucose 105 70 - 199 mg/dL [facility] Comment: Interpretive Data Fasting glucose [...] 2022. Calcium 8.9 8.5 - 10.3 mg/dL [facility] Bilirubin, total 0.7 0.1 - 1.2 mg/dL [facility] Protein, pl 7.4 6.5 - 8.5 g/dL [facility] Albumin 3.7 3.5 - 5.0 g/dL [facility] Alk phos 221(H) 40 - 130 Units/L [facility] ALT 21 7 - 45 Units/L [facility] AST 49(H) 10 - 45 Units/L [facility] Blood 02/15/2024 9:06 AM AUTO CRANE DRIVER 02/15/2024 10:09 AM AUTO CRANE DRIVER us Krysten Cohn MD LAB BLOOD ORDERABLES Final Result [facility] [place] [address] * ECG 12 lead (02/15/2024 8:38 AM AUTO CRANE DRIVER) Ventricular Rate EKG/Min [address] [facility] Atrial Rate [address] [facility] CA-Interval (MSEC) [address] [facility] QRS-Interval (MSEC) [address] [facility] QT-Interval (MSEC) [address] [facility] QTc [address] [facility] P Mathis [address] [facility] R Mathis [address] [facility] T Mathis [address] [facility] Diagnosis Normal sinus rhythm Low voltage QRS Cannot rule out Anterior infarct , age undetermined Abnormal ECG When compared with ECG of 12-DEC-2020 11:35, no significant change Confirmed by KARI GONZALEZ M.D ([id number]) on 02/15/2024 12:09:[address] [facility] 02/15/2024 8:38 AM AUTO CRANE DRIVER 02/15/2024 12:09 PM AUTO CRANE DRIVER us Marley Grover NP ECG ORDERABLES Final Re sult [facility] * MRI Shoulder Right WO Contrast (01/31/2024 10:42 AM AUTO CRANE DRIVER) Anatomical Region Laterality Modality Upper Extremities Right Magnetic Reson ance 01/31/2024 10:5 2 AM AUTO CRANE DRIVER Impressions 01/31/2024 10:52 AM AUTO CRANE DRIVER 1. Persistent anteroinferior right shoulder dislocation with a large currently engaged Hill-Sachs impaction fracture. 2. Extensive anterior and anteroinferior labral tear. 3. Complex superior and posterior labral tear. 4. Large glenohumeral joint effusion with loose intra-articular bodies. 5. Extensive articular sided partial-thickness supraspinatus and infraspinatus tendon tear. Electronically signed by: Too Donaldson MD Narrative 01/31/2024 10:52 AM AUTO CRANE DRIVER EXAMINATION: MRI SHOULDER RIGHT WO CONTRAST HISTORY: [...] Contrast and 3D Recons (01/31/2024 9:11 AM AUTO CRANE DRIVER) Anatomical Region Laterality Modality Upper Extremities Right Computed Tomog sheela 01/31/2024 1:14 PM AUTO CRANE DRIVER Impressions 01/31/2024 1:18 PM AUTO CRANE DRIVER 1. Anteroinferior right shoulder dislocation, with large, [...] Too Donaldson MD Narrative 01/31/2024 1:18 PM AUTO CRANE DRIVER EXAMINATION: CT SHOULDER RIGHT WO CONTRAST AND [...] to 2.4 cm in width. There is [id number] contact and moderate osteoarthritis of the right [...] to 2.4 cm in width. There is [id number] contact and moderate osteoarthritis of the right [...] it. Electronically signed by: Too Donaldson MD us Krysten Cohn MD IMG CT PROCEDURES Fin al Result * Radiology Event (01/31/2024 9:11 AM AUTO CRANE DRIVER) Anatomical Region Laterality Modality Computed Tomogra phy 01/31/2024 11:5 3 AM AUTO CRANE DRIVER Impressions 01/31/2024 2:25 PM AUTO CRANE DRIVER Fall with mild bruising to the dorsum of the left hand. Instructions given to patient regarding event: yes Dictated by: Trudy Sanchez MD The radiology attending physician has personally reviewed this study, and had reviewed and/or edited this written report and agrees with it. Electronically signed by: Francisco Encinas M.D. Narrative 01/31/2024 2:25 PM AUTO CRANE DRIVER EXAMINATION: General Radiology Event Report DATE of EVENT:01/31/2024 9:34 AM I was asked to see NOLVIA BRANCH regarding a fall from her wheelchair at the [facility]. Event: This was a Fall Patient was checking in for her appointment at the ambulatory cancer [facility]. She reported that her wheelchair was unlocked, [...] hand and wrist. Pulses were intact. Normal manager club strength without pain when flexing. Patient mentioned [...] a fall from her wheelchair at the [facility]. Event: This was a Fall Patient [facility]. She reported that her wheelchair was unlocked, [...] hand and wrist. Pulses were intact. Normal manager club strength without pain when flexing. Patient mentioned [...] IMG CT PROCEDURES Fin al Result * HM MAMMOGRAPHY (01/16/2021) us Shantanu Moon MD HEALTH MAINTENANCE Edited Re sult - Final from Last 3 Months or Most Recently Relevant to Health Maintenance Insurance [employer] HMO/PPO Address: [address] [address] [employer] HMO/PPO Address: [address] [address] [employer] HMO/PPO Address: [address] [address] [employer] HMO/PPO Address: [address] [place] [phone] [employer] Advance Directives For more information, please contact: [phone] * Full Code (Latest Code Status on File) Date Activated Date Inactivated Comments 04/03/2024 2:40 AM 04/08/2024 9:34 PM * Full Code Date Activated Date Inactivated Comments 02/23/2024 8:30 PM 03/13/2024 12:40 AM * Full Code Date Activated Date Inactivated Comments 12/12/2020 4:04 PM 12/13/2020 10:24 PM Healthcare Agents on File Name Relationship Healthcare Agent [facility] Communication Roderickhal Branch Spouse Health Care Agent Greciasarah Torres First Alternate Health Care Agent Care Teams Veterinary Medicine Scientist Relationship Specialty Start Date End Date Tiffany Edmond NP [address] [facility] [address] [place] [address] PCP - General Internal Medicine 07/12/22
--- OUTSIDE RECORDS SUMMARY | 2024-04-29 15:53 | XMS_ITS | Encounter Summary ---
Author Organization [facility] Healthcare Address [address] [place] [address] Care Team Providers Care Ladle Filler Name Role Phone Tiffany Edmond DIESEL TRUCK CRANE OPERATOR Primary Care Provider [phone] Encounter Details Date Type Department Care Team (Late st Contact Info) Description 04/29/2024 Orders Only [facility] Medical [facility] Internal Medicine at [place] [address] [place] [address] Tiffany Edmond, DIESEL TRUCK CRANE OPERATOR [address] [place] [address] Social History Tobacco Use Types Packs/Day Years Used Date Smoking Tobacco: Former Cigarettes 0 07/14/2004 - 03/21/2015 Smokeless Tobacco: Never Alcohol Use Standard Drinks/Week Comments Not Currently 0 (1 standard drink = 0.6 oz pur e alcohol) [facility] Utilities Answer Date Recorded In the past 12 months has [employer], gas, oil, or water company threatened to [...] often do you attend chur ch or islam services? Never 04/03/2024 Do you belong to any clubs o r organizations such as jainism groups, unions, fraternal or athletic groups, or [...] any time in the past 12 m [facility], were you homeless or living in a senior care (including now)? No 04/03/2024 Personal Safety Answer Date Recorded Have you ever been in or are you currently in a harmful physical or emotional relationship or is someone making you feel afraid or unsafe? Denies 04/03/2024 Comments No Sex and Gender Information Value Date Recorded Sex Assigned at Not on file Legal Sex Female 4:51 AM FOOD AND NUTRITION SUPERVISOR Gender Identity Female 10/09/2020 9:44 AM CDT Sexual Orientation Straight 07/19/2020 12 :16 PM CDT Occupation Industry Job Start Date Job End Date [employer] Not on file Not on file Not on file documented as of this encounter Plan of Treatment Not on file documented as of this encounter Visit Diagnoses Not on filedocumented in this encounter Care Teams Ladle Filler Relationship Specialty Start Date End Date Tiffany Edmond NP [address] [address] PCP - General Internal Medicine 07/12/22 documented as of this encounter
--- OUTSIDE RECORDS SUMMARY | 2024-04-29 15:53 | XMS_ITS | Encounter Summary ---
Author Organization [facility] Healthcare Address [address] [place] [address] Care Team Providers Care Director Of Integrated Marketing Name Role Phone Tiffany Edmond NP Primary Care Provider [phone] Encounter Details Date Type Department Care Team (Late st Contact Info) Description 04/29/2024 2:45 PM POST DOC FELLOWSHIP Orders Only [facility] Medical Office Building 2 Wound Care [address] [facility] [address] [place] [address] Arrived Social History Tobacco Use Types Packs/Day Years Used Date Smoking Tobacco: Former Cigarettes 0 07/14/2004 - 03/21/2015 Smokeless Tobacco: Never Alcohol Use Standard Drinks/Week Comments Not Currently 0 (1 standard drink = 0.6 oz pur e alcohol) [facility] Utilities Answer Date Recorded In the past 12 months has [employer] electric, gas, oil, or water company threatened [...] week 04/03/2024 How often do you attend [facility] or oriental orthodox services? Never 04/03/2024 Do you belong to any clubs o r organizations such as orthodox groups, unions, fraternal or athletic groups, or [...] in the past 12 m [facility], were you homeless or living in a half-way (including now)? No 04/03/2024 Personal Safety Answer Date Recorded Have you ever been in or are you currently in a harmful physical or emotional relationship or is someone making you feel afraid or unsafe? Denies 04/03/2024 Comments No Sex and Gender Information Value Date Recorded Sex Assigned at Not on file Legal Sex Female 4:51 AM POST DOC FELLOWSHIP Gender Identity Female 10/09/2020 9:44 AM CDT Sexual Orientation Straight 07/19/2020 12 :16 PM CDT Occupation Industry Job Start Date Job End Date [employer] Not on file Not on file Not on file documented as of this encounter Plan of Treatment Not on file documented as of this encounter Visit Diagnoses Not on filedocumented in this encounter Care Teams Director Of Integrated Marketing Relationship Specialty Start Date End Date Tiffany Edmond NP [address] [place] [id number] PCP - General Internal Medicine 07/12/22 documented as of this encounter
--- OUTSIDE RECORDS SUMMARY | 2024-04-29 15:54 | XMS_ITS | Encounter Summary ---
Author Organization [facility] Healthcare Address [address] [place] [address] Care Team Providers Care [employer] Baseball Umpire Name Role Phone Tiffany Edmond POULTRY SCIENTIST Primary Care Provider [phone] Reason for Visit * Reason Onset Date Comments Medical Question/Miscellaneous 04/17/2024 Encounter Details Date Type Department Care Team (Late st Contact Info) Description 04/17/2024 Telephone [facility] Medical Group Internal Medicine at [place] [address] [place] [address] Tiffany Edmond NP [address] [place] [address] Medical Question/Miscellaneous Social History Tobacco Use Types Packs/Day Years Used Date Smoking Tobacco: Former Cigarettes 0 07/14/2004 - 03/21/2015 Smokeless Tobacco: Never Alcohol Use Standard Drinks/Week Comments Not Currently 0 (1 standard drink = 0.6 oz pur e alcohol) [facility] Utilities Answer Date Recorded In the [...] often do you attend chur ch or rastafari services? Never 04/03/2024 Do you belong to any clubs o r organizations such as nondenominational groups, unions, fraternal or athletic groups, or [...] time in the past 12 m [facility], were you homeless or living in a usp (including now)? No 04/03/2024 Personal Safety Answer Date Recorded Have you ever been in or are you currently in a harmful physical or emotional relationship or is someone making you feel afraid or unsafe? Denies 04/03/2024 Comments No Sex and Gender Information Value Date Recorded Sex Assigned at Not on file Legal Sex Female 4:51 AM RIPPER OPERATOR Gender Identity Female 10/09/2020 9:44 AM CDT Sexual Orientation Straight 07/19/2020 12 :16 PM CDT Occupation Industry Job Start Date Job End Date [employer] Not on file Not on file Not on file documented as of this encounter Miscellaneous Notes * Telephone Encounter - Marilyn Hernandez MA - 04/18/2024 9:04 AM CST Orders given per Tiffany Edmond NP ER OPERATOR * Telephone Encounter - Tiffany Edmond NP - 04/17/2024 1:58 PM CST Okay for OT order for [facility] ER OPERATOR * Telephone Encounter - Mckenzie Alicea - 04/17/2024 12:55 PM CST Medical Question/Miscellaneous Caller???s Concern: Patient called stating [facility] came out today, but told her they need an order for OT since they don't have one for that. Please advise. Does message need to be routed? Yes-Action Needed ER OPERATOR documented in this encounter Plan of Treatment Not on file documented as of this encounter Visit Diagnoses Not on filedocumented in this encounter Care Teams Major League Baseball Umpire Relationship Specialty Start Date End Date Tiffany Edmond NP [address] [place] [address] PCP - General Internal Medicine 07/12/22 documented as of this encounter
--- OUTSIDE RECORDS SUMMARY | 2024-04-29 15:54 | XMS_ITS | Encounter Summary ---
Author Organization [facility] Healthcare Address [address] [place] [address] Care Team Providers Care Order Builder Loader Name Role Phone Tiffany Edmond MEDICAL ASSISTING INSTRUCTOR Primary Care Provider [phone] Reason for Visit * Reason Onset Date Comments Medical Question/Miscellaneous 04/01/2024 Encounter Details Date Type Department Care Team (Late st Contact Info) Description 04/01/2024 Telephone [facility] Medical Group Internal Medicine at [place] [address] [place] [address] Tiffany Edmond NP [address] [place] [address] Medical Question/Miscellaneous Social History Tobacco Use Types Packs/Day Years Used Date Smoking Tobacco: Former Cigarettes 0 07/14/2004 - 03/21/2015 Smokeless Tobacco: Never Alcohol Use Standard Drinks/Week Comments Not Currently 0 (1 standard drink = 0.6 oz pur e alcohol) [facility] Utilities Answer Date Recorded In the past 12 months has e electric, gas, oil, or water company [...] often do you attend chur ch or yazidi services? Never 04/03/2024 Do you belong to any clubs o r organizations such as gnosticist groups, unions, fraternal or athletic groups, or [...] points, staff should administer the PHQ-9) 0 04/02/2024 Hunger Vital Sign Answer Date Recorded Within [...] any time in the past [address] [facility], were you homeless or living in a chcf (including now)? No 04/03/2024 Personal Safety Answer Date Recorded Have you ever been in or are you currently in a harmful physical or emotional relationship or is someone making you feel afraid or unsafe? Denies 04/03/2024 Comments No Sex and Gender Information Value Date Recorded Sex Assigned at Not on file Legal Sex Female 4:51 AM TELECOMMUNICATIONS EQUIPMENT INSTALLER Gender Identity Female 10/09/2020 9:44 AM CDT Sexual Orientation Straight 07/19/2020 12 :16 PM CDT Occupation Industry Job Start Date Job End Date [employer] Not on file Not on file Not on file documented as of this encounter Functional Status * Audit-C Score Answer Date of Assessment Author 0 04/03/2024 1:11 AM Penny Berkowitz RN * Question Answer Date of Assessment Author Q1: How often do you have a drink containing alcohol? Never 04/03/2024 1:11 AM Angelica Berkowitz RN Q2: How many drinks containing alcohol do you have on a typical day when you are drinking? Patient does not drink 04/03/2024 1:11 AM Angelica Berkowitz RN Q3: How often do you have six or more drinks on one occasion? Never 04/03/2024 1:11 AM Angelica Berkowitz RN documented as of this encounter Miscellaneous Notes * Telephone Encounter - Nolvia Joshi - 04/01/2024 12:42 PM TELECOMMUNICATIONS EQUIPMENT INSTALLER Medical Question/Miscellaneous Caller???s Concern: Charity with [facility] is calling asking to speak with someone in clinical about concerns she has with the patient after visiting her today. Call warm transferred to the backline. Reason for Warm Transfer:Other (please explain): [facility] Nurse CHARITY has medical concerns after visit with the patient. Practice Accepted the Warm Transfer? Yes Additional Comments If YES above, and no barriers. Does message need to be routed? No COMMUNICATIONS EQUIPMENT INSTALLER documented in this encounter Plan of Treatment Not on file documented as of this encounter Visit Diagnoses Not on filedocumented in this encounter Additional Health Concerns Infection Onset Date Last Indicated Resolved Time COVID: Suspected 04/02/2024 04/02/2024 04/02/2024 10:50 PM TELECOMMUNICATIONS EQUIPMENT INSTALLER documented as of this encounter Care Teams Order Builder Loader Relationship Specialty Start Date End Date Tiffany Edmond NP [address] [address] PCP - General Internal Medicine 07/12/22 documented as of this encounter
--- OUTSIDE RECORDS SUMMARY | 2024-04-29 15:54 | XMS_ITS | Encounter Summary ---
Author Organization [facility] Address [address] [place] [address] Care Team Providers Care Hairspring Inspector Name Role Phone Tiffany Edmond NP Primary Care Provider [phone] Reason for Referral * Diagnostic Imaging (Routine) - Pending Review Specialty Diagnoses / Procedures Referred By Contsarah beth t Referred To Contact Diagnoses Chronic combined systolic and diastolic congestive heart failure (CMS/HCC) (HCC) Procedures NM MPI SPECT (Rest and/or Stress) Multiple Studies Karie Rodríguez MD [address] [facility] [address] [facility] [address] [place] [address] Phone: tel: fax: External Order Referral ID Status Reason Start Date Expiration Date V isits Requested Visits Authorized [id number] Pending Review 04/29/2024 05/29/2025 1 1 FILTER TANK TENDER HEAD Reason for Visit * Reason Comments New Patient * Consultation (Routine) - Closed Specialty Diagnoses / Procedures Referred By Contac t Referred To Contact Cardiology Diagnoses Lymphedema Tiffany Edmond NP [address] [place] [address] Phone: tel: fax: Hernan Campbell MD [address] [place] [address] Phone: tel: fax: Referral ID Status Reason Start Date Expiration Date V isits Requested Visits Authorized [id number] Closed Specialty Services Required 01/10/2024 02/08/2025 1 1 Encounter Details Date Type Department Care Team (Late st Contact Info) Description 04/29/2024 1:00 PM CHAR FILTER TANK TENDER HEAD Office Visit [facility] Medical Group Cardiology [address] [place] [address] Karie Rodríguez MD [address] [facility] [address] [place] [address] Essential (primary) hypertension (Primary Dx); Lymphedema; Chronic combined systolic and diastolic congestive heart failure (CMS/HCC) (HCC); Prolonged QT interval Social History Tobacco Use Types Packs/Day Years Used Date Smoking Tobacco: Former Cigarettes 0 07/14/2004 - 03/21/2015 Smokeless Tobacco: Never Alcohol Use Standard Drinks/Week Comments Not Currently 0 (1 standard drink = 0.6 oz pur e alcohol) [facility] Utilities Answer Date Recorded In the past [...] often do you attend chur ch or muslim services? Never 04/03/2024 Do you belong to any clubs o r organizations such as methodist groups, unions, fraternal or athletic groups, or [...] time in the past 12 [facility], were you homeless or living in a longterm (including now)? No 04/03/2024 Personal Safety Answer Date Recorded Have you ever been in or are you currently in a harmful physical or emotional relationship or is someone making you feel afraid or unsafe? Denies 04/03/2024 Comments No Sex and Gender Information Value Date Recorded Sex Assigned at Not on file Legal Sex Female 4:51 AM CHAR FILTER TANK TENDER HEAD Gender Identity Female 10/09/2020 9:44 AM CDT Sexual Orientation Straight 07/19/2020 12 :16 PM CDT Occupation Industry Job Start Date Job End Date [employer] Not on file Not on file Not on file documented as of this encounter Last Filed Vital Signs Vital Sign Reading Time Taken Comments Blood Pressure 136/80 04/29/2024 12:48 PM CHAR FILTER TANK TENDER HEAD Pulse 80 04/29/2024 12:48 PM CHAR FILTER TANK TENDER HEAD Temperature - - Respiratory Rate - - Oxygen Saturation 93% 04/29/2024 12:48 PM CHAR FILTER TANK TENDER HEAD Inhaled Oxygen Concentration - - Weight 152 kg (335 lb) 04/29/2024 12:48 PM CHAR FILTER TANK TENDER HEAD Height 160 cm (5' 3 ) 04/29/2024 12:48 PM CHAR FILTER TANK TENDER HEAD Body Mass Index 59.34 04/29/2024 12:48 PM CHAR FILTER TANK TENDER HEAD documented in this encounter Plan of Treatment Scheduled Orders Name Type Priority Associated Diagnoses Orde r Schedule Basic metabolic panel Lab Routine Prolonged QT interval Expected: 04/29/2024, Expires: 04/29/2025 Magnesium Lab Routine Prolonged QT interval Expected: 05/02/2024, Expires: 04/29/2025 NM MPI SPECT (Rest and/or Stress) Multiple Studies Imaging Schedule Routine, Read Routine (OP Routine) Chronic combined systolic and diastolic congestive heart failure (CMS/HCC) (HCC) Expected: 04/29/2024, Expires: 04/29/2025 documented as of this encounter Procedures Procedure Name Priority Date/Time Associated Diagnosis Comments ELECTROCARDIOGRAM REPORT Routine 025 3:06 PM CHAR FILTER TANK TENDER HEAD Chronic combined systolic and diastolic congestive heart failure (CMS/HCC) (HCC) Prolonged QT interval POCT LIPID PANEL Routine 04/29/2024 12:4 2 PM CHAR FILTER TANK TENDER HEAD Essential (primary) hypertension Chronic combined systolic and diastolic congestive heart failure (CMS/HCC) (HCC) documented in this encounter Results * Electrocardiogram Report (04/29/2024 3:06 PM CHAR FILTER TANK TENDER HEAD) us Jianeer Jaki Rodríguez MD ECG ORDERABLES Nicole l Result * POCT lipid panel (04/29/2024 12:42 PM CHAR FILTER TANK TENDER HEAD) HDL, POC 60 mg/dL Triglycerides, POC 452 mg/dL LDL Cholesterol POC 60 mg/dL Chol/HDL Ratio, POC 52.6 Non-HDL Cholesterol, POC 143 mg/dL Cholesterol Total, POC 203 mg/dL Capillary blood 04/29/2024 1 2:42 PM CHAR FILTER TANK TENDER HEAD us Karie Rodríguez MD POINT OF CARE TEST O RDERABLES Final Result documented in this encounter Visit Diagnoses Diagnosis Essential (primary) hypertension- Primary Unspecified essential hypertension Lymphedema Other noninfectious lymphedema Chronic combined systolic and diastolic congestive heart failure (CMS/HCC) (HCC) Prolonged QT interval Nonspecific abnormal electrocardiogram (ECG) (EKG) documented in this encounter Orders Outpatient Referral Count Last Ordered Date Fir st Ordered Date AMB REFERRAL TO CARDIOLOGY 1 04/29/2024 documented in this encounter Care Teams Hairspring Inspector Relationship Specialty Start Date End Date Tiffany Edmond NP [address] [address] PCP - General Internal Medicine 07/12/22 documented as of this encounter
--- OUTSIDE RECORDS SUMMARY | 2024-04-29 15:54 | XMS_ITS | Encounter Summary ---
Author Organization [facility] Healthcare Address [address] [place] [address] Care Team Providers Care Stringed Instrument Tuner Name Role Phone Tiffany Edmond DOORPERSON Primary Care Provider [phone] Reason for Visit * Reason Onset Date Comments Additional Services Or Orders 04/18/2024 Encounter Details Date Type Department Care Team (Late st Contact Info) Description 04/18/2024 Telephone [facility] Medical Group Internal Medicine at [place] [address] [place] [address] Tiffany Edmond DOORPERSON [address] [place] [address] Additional Services Or Orders Social History Tobacco Use Types Packs/Day Years Used Date Smoking Tobacco: Former Cigarettes 0 07/14/2004 - 03/21/2015 Smokeless Tobacco: Never Alcohol Use Standard Drinks/Week Comments Not Currently 0 (1 standard drink = 0.6 oz pur e alcohol) [facility] Utilities Answer Date Recorded In the past [...] often do you attend chur ch or worship services? Never 04/03/2024 Do you belong to any clubs o r organizations such as taoist groups, unions, fraternal or athletic groups, or [...] time in the past 12 m [facility], were you homeless or living in a residential (including now)? No 04/03/2024 Personal Safety Answer Date Recorded Have you ever been in or are you currently in a harmful physical or emotional relationship or is someone making you feel afraid or unsafe? Denies 04/03/2024 Comments No Sex and Gender Information Value Date Recorded Sex Assigned at Not on file Legal Sex Female 4:51 AM DRAW FRAME RUNNER Gender Identity Female 10/09/2020 9:44 AM CDT Sexual Orientation Straight 07/19/2020 12 :16 PM CDT Occupation Industry Job Start Date Job End Date [employer] Not on file Not on file Not on file documented as of this encounter Miscellaneous Notes * Telephone Encounter - Marilyn Hernandez MA - 04/29/2024 11:16 AM CST Patient notified FRAME RUNNER * Telephone Encounter - Tiffany Edmond NP - 04/29/2024 8:34 AM CST Letter uploaded. Unable to change date but included seen on 04/23 with return to work 05/13 FRAME RUNNER * Telephone Encounter - Marilyn Hernandez MA - 04/26/2024 3:26 PM CST Called patient message left to call office. FRAME RUNNER * Telephone Encounter - Danielle Oconnor - 04/26/2024 3:08 PM CST Medical Question/Miscellaneous Caller???s Concern: Please call Patient and let her know the status of her letter. Patient would like it in her MyChart. Does message need to be routed? Yes-Action Needed FRAME RUNNER * Telephone Encounter - Sary Matias - 04/25/2024 11:20 AM CST Call Back Caller???s Concern: Patient called to see if the letter was done. CONTRACT ADMINISTRATOR noticed notes from JYOTI Allen asking: When does she plan to return? How far out should I put the letter for? Patient states that she plans to return to work the week of 05/13/24. Does message need to be routed? Yes-Action Needed FRAME RUNNER * Telephone Encounter - Nivia Palma - 04/24/2024 10:36 AM CST Medical Question/Miscellaneous Caller???s Concern: called back and was asking for the letter just to state that she was seeing theprovider for her right shoulder and the left leg wound. She needs it dated from . She doesn'tneed a end date or return to work. Please advise and put on Clouder[employer] once done. Does message need to be routed? Yes-Action Needed FRAME RUNNER * Telephone Encounter - Tiffany Edmond NP - 04/24/2024 9:18 AM CST When does she plan to return? How far out should I put the letter for? FRAME RUNNER * Telephone Encounter - Garce Marroquin - 04/23/2024 1:36 PM CST Call Back Caller???s Concern: Andriy is requesting work letter (excusing her from work) indicating she is still under doctor's care for right shoulder & left leg wounds. Requesting letter to be uploaded via [employer] as well as a phone call to confirm once done. Ok to [facility]. Does message need to be routed? Yes-Action Needed FRAME RUNNER * Telephone Encounter - Caitie Brand - 04/18/2024 3:00 PM CST Medical Question/Miscellaneous Caller???s Concern: Sangita, clinical director at [facility], calling to request PT order for right shoulder. Upon reviewing patient's chart, Sangita discovered patient had right should replacement with Ortho in February. Will be calling ortho for orders. No further assistance needed at this time. Does message need to be routed? No FRAME RUNNER documented in this encounter Plan of Treatment Not on file documented as of this encounter Visit Diagnoses Not on filedocumented in this encounter Care Teams Stringed Instrument Tuner Relationship Specialty Start Date End Date Tiffany Edmond NP [address] [place] [address] PCP - General Internal Medicine 07/12/22 documented as of this encounter
== END 2024-04-29 13:43 | disposition home or self-care (01) ==
LOC: ANHLAB 13:45
PROVIDERS: PCP Nurse Practitioner Family; Visit Provider Internal Medicine Cardiovascular Disease
DX: R94.31 Abnormal electrocardiogram [ECG] [EKG] (principal)
CPT/HCPCS: 36415; 80048; 83735

== ENCOUNTER 2024-05-08 08:20 | Outpatient (CLI) | payer OTHER, SELFPAY ==
--- NOTE | 2024-05-08 | EST_ITS ---
Patient Info Name: Nolvia Sanches Age: 54 years : 1970 Gender: Female Ht: 62 in Wt: 330 lbs BSA: 2.67 m2 HR: 84 bpm BP: 137 / 100 mmHg Exam Date: 05/08/2024 9:51 AM Exam Location: Echo Lab Patient Status: Outpatient Admit Date: 05/08/2024 Staff Ordering Physician: Karie Rodríguez MD Attending Provider: Karie Rodríguez MD Exercise Technologist: Gemma Holt [facility] [[email or web address]] Exercise Physician: Jessica Kumar MD Exam Type: CA stress prateek w NM Study Info A regadenoson stress test was performed. Summary 1. No abnormal ST/T wave changes diagnostic of ischemia with Lexiscan. 2. Occasional PVCs. 3. Please correlate with nuclear medicine images, reported separately. 4. Stress test supervised by and interpreted by Jessica Kumar MD. Protocol: Lexiscan Stress ECG Details Stage: REST Duration (min): 1 min : 27 sec HR (bpm): 84 SBP (mmHg): 137 DBP (mmHg): 100 Stage: REST Duration (min): 30 min : 58 sec HR (bpm): 85 SBP (mmHg): 137 DBP (mmHg): 100 Stage: STAGE 1 Duration (min): 0 min : 59 sec HR (bpm): 94 SBP (mmHg): 159 DBP (mmHg): 91 Stage: RECOVERY Duration (min): 1 min : 0 sec HR (bpm): 98 SBP (mmHg): 159 DBP (mmHg): 91 Stage: RECOVERY Duration (min): 2 min : 0 sec HR (bpm): 95 SBP (mmHg): 159 DBP (mmHg): 91 Stage: RECOVERY Duration (min): 3 min : 0 sec HR (bpm): 97 SBP (mmHg): 217 DBP (mmHg): 104 Stage: RECOVERY Duration (min): 3 min : 22 sec HR (bpm): 98 SBP (mmHg): 217 DBP (mmHg): 104 Rest HR: 85 bpm Peak HR: 100 bpm Rest Sys BP: 137 mmHg Peak Sys BP: 217 mmHg Max Pred HR: 164 bpm % Max Pred HR: 61 % Target HR: 139 bpm Max RPP: 21,700 bpm*mmHg Total Time: 1 min : 0 sec Rest Vieyra BP: 100 mmHg Peak Vieyra BP: 104 mmHg Total Dose: 0.4 mg Resting ECG Sinus rhythm. Stress ECG Sinus rhythm. No abnormal ST/T wave changes diagnostic of ischemia with Lexiscan. Arrhythmias Occasional PVCs. Report Signatures
--- NOTE | ~2024-05-08 | NM_ITS ---
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 The patient was infused intravenously with Lexiscan (Regadenoson). Then, 30 mCi Tc99m te trofosmin (Myoview) was administered intravenously, and stress images were obtained. Data was reconst ructed into short axis and horizontal and vertical long axis SPECT images. Gated SPECT images were al so obtained. COMPARISON: None. FINDINGS: There is no definite reversible or fixed perfusion abnormality to suggest ischemia or infar ction. There is normal left ventricular chamber size, wall motion and ejection fraction. Left ventr icular ejection fraction measures 70%. IMPRESSION: 1. Normal myocardial perfusion at rest and during stress. 2. Left ventricular ejection fraction measuring >70%. Reviewed, dictated and finalized at location B. RAFT DE ICER INSTALLER
--- OUTSIDE RECORDS SUMMARY | 2024-05-08 08:33 | XMS_ITS | Data Portability ---
Author Organization [facility] Address [address] [facility] [place] [place] [address] Assessment No assessment recorded. Plan of Treatment Reminders Order Date Submit Date Provider Last Modified By Organization Details Last Modified Time Details Appointments None recorded. Lab albumin, urine 2014 015 Maria A PORRAS, [address], [place], [address], 5 09:20:27 TSH, serum or plasma 2014 015 BRADLY PHILLIPS, Maria A Solorzano, [address], [place], [address], 5 09:20:27 urinalysis, complete 2014 015 BRADLY PHILLIPS, Maria A Solor[address]ano, [address], [place], [address], 5 09:20:26 CBC 2014 015 Maria A PORRAS, [address], [place], [address], 5 09:20:25 lipid panel, serum 2014 015 Maria A PORRAS, [address], [place], [address], 5 09:20:26 CMP, serum or plasma 2014 015 Maria A PORRAS, [address], [place], [address], 5 09:20:25 HbA1c (hemoglobin A1c), blood 2014 015 [facility], [address], [address], [place], [address], 5 09:20:27 Referral None recorded. Procedures None recorded. Surgeries None recorded. Imaging None recorded. Medication Orders paroxetine 10 mg tablet 2015 016 [facility], [address] [place], [address], 6 15:52:45 Jencycla 0.35 mg tablet 2015 016 [facility], [address] [place] [address], [address], 6 15:52:45 paroxetine 10 mg tablet 2014 015 [facility], [facility] [place], [address], 5 12:28:00 Jencycla 0.35 mg tablet 2014 015 [facility], [address] [place], [address], 5 12:28:00 Jencycla 0.35 mg tablet 2014 015 [facility], [address] [place], [address], 5 12:24:51 Jencycla 0.35 mg tablet 2014 015 [facility], [address] [place], [address], 5 14:37:10 doxycycline hyclate 100 mg capsule 2014 015 [facility], [address] [place], [address], 5 12:20:14 Patient TargetsNo targets recorded. Patient Instructions Encounter Date Encounter Id Patient Instructions Last Modified By Organization Details Last Modified Time 02/04/2015 [id number] Patient declined flu vaccine eewig Not available 02/04/2015 11:28:57 08/04/2015 [id number] Patient will bring her labs from Dr. Briggs's office to be scanned into computer eewig Not available 08/04/2015 15:52:45 Reason for Referral None Reported. Results Created Date Observation Date Name Description Value Unit Range Abnormal Flag Note LastModifiedBy Organization Detail LastModifiedTime 09/09/19 15 09/09/2014 CBC WBC 11.9 x10e3 /uL 3.4-10 .8 high Not Available [facility] ([facility]) [address] [place], [address], 09/09/2014 09:20:25 09/09/19 15 09/09/2014 CBC RBC 4.44 x10e6 /uL 3.77-5 .28 Not Available [facility] ([facility]) [address] [place], [address], 09/09/2014 09:20:25 09/09/19 15 09/09/2014 CBC hemoglobin 13.4 g/dL 11.1-1 5.9 Not Available [facility] ([facility]) [address] [place], [address], 09/09/2014 09:20:25 09/09/1909/09/2014 CBC hematocrit 40.5 % 34.0-4 6.6 Not Available [facility] ([facility]) [address] [place], [address], 09/09/2014 09:20:25 09/09/19 15 09/09/2014 CBC MCV 91 fL 79-97 Not Available [facility] ([facility]) [address] [place], [address], 09/09/2014 09:20:25 09/09/19 15 09/09/2014 CBC MCH 30.2 pg 26.6-3 3.0 Not Available [facility] ([facility]) [address] [facility], [place], [address], 09/09/2014 09:20:25 09/09/19 15 09/09/2014 CBC MCHC 33.1 g/dL 31.5-3 5.7 Not Available [facility] ([facility]) [address] [facility], [place], [address], 09/09/2014 09:20:25 09/09/19 15 09/09/2014 CBC RDW 14.0 % 12.3-1 5.4 Not Available [facility] ([facility]) [address] [facility], [place], [address], 09/09/2014 09:20:25 09/09/19 15 09/09/2014 CBC platelets 297 x10e3 /uL 150-37 9 Not Available [facility] ([facility]) [address] [facility], [place], [address], 09/09/2014 09:20:25 09/09/19 15 09/09/2014 CBC neutrophils 68 % Not Avai lable [facility] ([facility]) [address] [facility], [place], [address], 09/09/2014 09:20:25 09/09/19 15 09/09/2014 CBC lymphs 25 % Not Available [facility] ([facility]) [address] [facility], [place], [address], 09/09/2014 09:20:25 09/09/19 15 09/09/2014 CBC monocytes 6 % Not Availa ble [facility] ([facility]) [address] [facility], [place], [address], 09/09/2014 09:20:25 09/09/19 15 09/09/2014 CBC eos 1 % Not Available [facility] ([facility]) [address] [facility], [place], [address], 09/09/2014 09:20:25 09/09/19 15 09/09/2014 CBC basos 0 % Not Available [facility] ([facility]) [address] [facility], [place], [address], 09/09/2014 09:20:25 09/09/19 15 09/09/2014 CBC immature cells WASTE RECLAIMER Not Available [facility] ([facility]) [address] [facility], [place], [address], 09/09/2014 09:20:25 09/09/19 15 09/09/2014 CBC neutrophils (absolute) 8.0 x10e3 /uL 1.4-7. 0 high Not Available [facility] ([facility]) [address] [facility], [place], [address], 09/09/2014 09:20:25 09/09/19 15 09/09/2014 CBC lymphs (absolute) 3.0 x10e3 /uL 0.7-3. 1 Not Available [facility] ([facility]) [address] [facility], [place], [address], 09/09/2014 09:20:25 09/09/19 15 09/09/2014 CBC monocytes(ab solute) 0.7 x10e3 /uL 0.1-0. 9 Not Available [facility] ([facility]) [address] [facility], [place], [address], 09/09/2014 09:20:25 09/09/19 15 09/09/2014 CBC eos (absolute) 0.2 x10e3 /uL 0.0-0. 4 Not Available [facility] ([facility]) [address] [facility], [place], [address], 09/09/2014 09:20:25 09/09/19 15 09/09/2014 CBC baso (absolute) 0.0 x10e3 /uL 0.0-0. 2 Not Available [facility] ([facility]) [address] [facility] [place], [address], 09/09/2014 09:20:25 09/09/19 15 09/09/2014 CBC immature granulocytes 0 % Not Available [facility] ([facility]) [address] [facility] [place], [address], 09/09/2014 09:20:25 09/09/19 15 09/09/2014 CBC immature grans (abs) 0.0 x10e3 /uL 0.0-0. 1 Not Available [facility] ([facility]) [address] [facility] [place], [address], 09/09/2014 09:20:25 09/09/19 15 09/09/2014 CBC NRBC WASTE RECLAIMER Not Available [facility] ([facility]) [address] [facility] [place], [address], 09/09/2014 09:20:25 09/09/19 15 09/09/2014 CBC hematology comments: WASTE RECLAIMER Not Available [facility] ([facility]) [address] [facility] [place], [address], 09/09/2014 09:20:25 09/09/19 15 09/09/2014 CMP, serum or plasm a glucose, serum 83 mg/dL 65-99 Not Available [facility] ([facility]) [address] [facility] [place], [address], 09/09/2014 09:20:25 09/09/19 15 09/09/2014 CMP, serum or plasm a BUN 21 mg/dL 6-24 Not Available [facility] ([facility]) [address] [facility] [place], [address], 09/09/2014 09:20:25 09/09/19 15 09/09/2014 CMP, serum or plasm a creatinine, serum 1.13 mg/dL 0.57-1 .00 high Not Available [facility] ([facility]) [address] [facility], [place], [address], 09/09/2014 09:20:25 09/09/19 15 09/09/2014 CMP, serum or plasm a eGFR if nonafricn AM 58 mL/mi n/1.7 3 >59 low Not Available [facility] ([facility]) [address] [facility], [place], [address], 09/09/2014 09:20:25 09/09/19 15 09/09/2014 CMP, serum or plasm a eGFR if africn AM 67 mL/mi n/1.7 3 >59 Not Available [facility] ([facility]) [address] [place], [address], 09/09/2014 09:20:25 09/09/19 15 09/09/2014 CMP, serum or plasm a BUN/creatini ne ratio 19 9-23 Not Available [facility] ([facility]) [address] [place], [address], 09/09/2014 09:20:25 09/09/19 15 09/09/2014 CMP, serum or plasm a sodium, serum 140 mmol/ L 134-14 4 Not Available [facility] ([facility]) [address] [place], [address], 09/09/2014 09:20:25 09/09/19 15 09/09/2014 CMP, serum or plasm a potassium, serum 4.7 mmol/ L 3.5-5. 2 Not Available [facility] ([facility]) [address] [place], [address], 09/09/2014 09:20:25 09/09/19 15 09/09/2014 CMP, serum or plasm a chloride, serum 100 mmol/ L 97-108 Not Available [facility] ([facility]) [address] [place], [address], 09/09/2014 09:20:25 09/09/19 15 09/09/2014 CMP, serum or plasm a carbon dioxide, total 21 mmol/ L 18-29 Not Available [facility] ([facility]) [address] [facility] [place], [address], 09/09/2014 09:20:25 09/09/19 15 09/09/2014 CMP, serum or plasm a calcium, serum 9.3 mg/dL 8.7-10 .2 Not Available [facility] ([facility]) [address] [facility] [place], [address], 09/09/2014 09:20:25 09/09/19 15 09/09/2014 CMP, serum or plasm a protein, total, serum 6.8 g/dL 6.0-8. 5 Not Available [facility] ([facility]) [address] [facility] [place], [address], 09/09/2014 09:20:25 09/09/19 15 09/09/2014 CMP, serum or plasm a albumin, serum 4.5 g/dL 3.5-5. 5 Not Available [facility] ([facility]) [address] [facility] [place], [address], 09/09/2014 09:20:25 09/09/19 15 09/09/2014 CMP, serum or plasm a globulin, total 2.3 g/dL 1.5-4. 5 Not Available [facility] ([facility]) [address] [place], [address], 09/09/2014 09:20:25 09/09/19 15 09/09/2014 CMP, serum or plasm a A/G ratio 2.0 1.1-2. 5 Not Available [facility] ([facility]) [address] [facility] [place], [address], 09/09/2014 09:20:25 09/09/19 15 09/09/2014 CMP, serum or plasm a bilirubin, total 0.6 mg/dL 0.0-1. 2 Not Available [facility] ([facility]) [address] [place], [address], 09/09/2014 09:20:25 09/09/19 15 09/09/2014 CMP, serum or plasm a alkaline phosphatase, S 68 IU/L 39-117 Not Available [facility] ([facility]) [address] [facility] [place], [address], 09/09/2014 09:20:25 09/09/19 15 09/09/2014 CMP, serum or plasm a AST (SGOT) 21 IU/L 0-40 Not Available [facility] ([facility]) [address] [facility] [place], [address], 09/09/2014 09:20:25 09/09/19 15 09/09/2014 CMP, serum or plasm a ALT (SGPT) 13 IU/L 0-32 Not Available [facility] ([facility]) [address] [facility] [place], [address], 09/09/2014 09:20:25 09/09/19 15 09/09/2014 urina lysis , compl ete specific gravity 1.018 1.005- 1.030 Not Available [facility] ([facility]) [address] [place], [address], 09/09/2014 09:20:25 09/09/19 15 09/09/2014 urina lysis , compl ete pH 6.5 5.0-7. 5 Not Available [facility] ([facility]) [address] [place], [address], 09/09/2014 09:20:25 09/09/19 15 09/09/2014 urina lysis , compl ete urine-color YELLOW yellow Not Available [facility] ([facility]) [address] [place], [address], 09/09/2014 09:20:25 09/09/19 15 09/09/2014 urina lysis , compl ete appearance CLEAR clear Not Available [facility] ([facility]) [address] [place], [address], 09/09/2014 09:20:25 09/09/19 15 09/09/2014 urina lysis , compl ete WBC esterase NEGATI VE negati ve Not Available [facility] ([facility]) [address] [facility], [place], [address], 09/09/2014 09:20:25 09/09/19 15 09/09/2014 urina lysis , compl ete protein TRACE negati ve/tra ce Not Available [facility] ([facility]) [address] [facility], [place], [address], 09/09/2014 09:20:25 09/09/19 15 09/09/2014 urina lysis , compl ete glucose NEGATI VE negati ve Not Available [facility] ([facility]) [address] [place], [address], 09/09/2014 09:20:25 09/09/19 15 09/09/2014 urina lysis , compl ete glucose reflex WASTE RECLAIMER Not Available [facility] ([facility]) [address] [place], [address], 09/09/2014 09:20:25 09/09/19 15 09/09/2014 urina lysis , compl ete ketones NEGATI VE negati ve Not Available [facility] ([facility]) [address] [place], [address], 09/09/2014 09:20:25 09/09/19 15 09/09/2014 urina lysis , compl ete occult blood 2+ negati ve abnormal Not Available [facility] ([facility]) [address] [place], [address], 09/09/2014 09:20:25 09/09/19 15 09/09/2014 urina lysis , compl ete bilirubin NEGATI VE negati ve Not Available [facility] ([facility]) [address] [place], [address], 09/09/2014 09:20:25 09/09/19 15 09/09/2014 urina lysis , compl ete urobilinogen ,semi-qn 0.2 mg/dL 0.0-1. 9 Not Available [facility] ([facility]) [address] [facility], [place], [address], 09/09/2014 09:20:25 09/09/19 15 09/09/2014 urina lysis , compl ete nitrite, urine NEGATI VE negati ve Not Available [facility] ([facility]) [address] [place], [address], 09/09/2014 09:20:25 09/09/19 15 09/09/2014 urina lysis , compl ete microscopic examination SEE BELOW: MICRO SCOPI C WAS INDIC ATED AND WAS PERFO RMED. Not Available [facility] ([facility]) [address] [place], [address], 09/09/2014 09:20:25 09/09/19 15 09/09/2014 urina lysis , compl ete WBC 0-5 /hpf 0 - 5 Not Available [facility] ([facility]) [address] [place], [address], 09/09/2014 09:20:25 09/09/19 15 09/09/2014 urina lysis , compl ete RBC 3-10 /hpf 0 - 2 abnormal Not Available [facility] ([facility]) [address] [place], [address], 09/09/2014 09:20:25 09/09/19 15 09/09/2014 urina lysis , compl ete epithelial cells (non renal) 0-10 /hpf 0 - 10 Not Available [facility] ([facility]) [address] [place], [address], 09/09/2014 09:20:25 09/09/19 15 09/09/2014 urina lysis , compl ete epithelial cells (renal) WASTE RECLAIMER Not Available [facility] ([facility]) [address] [facility], [place], [address], 09/09/2014 09:20:25 09/09/19 15 09/09/2014 urina lysis , compl ete casts WASTE RECLAIMER Not Available [facility] ([facility]) [address] [facility], [place], [address], 09/09/2014 09:20:25 09/09/19 15 09/09/2014 urina lysis , compl ete cast type WASTE RECLAIMER Not Available [facility] ([facility]) [address] [facility], [place], [address], 09/09/2014 09:20:25 09/09/19 15 09/09/2014 urina lysis , compl ete crystals WASTE RECLAIMER Not Available [facility] ([facility]) [address] [facility], [place], [address], 09/09/2014 09:20:25 09/09/19 15 09/09/2014 urina lysis , compl ete crystal type WASTE RECLAIMER Not Available [facility] ([facility]) [address] [facility], [place], [address], 09/09/2014 09:20:25 09/09/19 15 09/09/2014 urina lysis , compl ete mucus threads WASTE RECLAIMER Not Available [facility] ([facility]) [address] [facility], [place], [address], 09/09/2014 09:20:25 09/09/19 15 09/09/2014 urina lysis , compl ete bacteria FEW none seen/f ew Not Available [facility] ([facility]) [address] [facility], [place], [address], 09/09/2014 09:20:25 09/09/19 15 09/09/2014 urina lysis , compl ete yeast WASTE RECLAIMER Not Available [facility] ([facility]) [address] [facility], [place], [address], 09/09/2014 09:20:25 09/09/19 15 09/09/2014 urina lysis , compl ete trichomonas WASTE RECLAIMER Not Available [facility] ([facility]) [address] [place], [address], 09/09/2014 09:20:25 09/09/19 15 09/09/2014 urina lysis , compl ete comment WASTE RECLAIMER Not Available [facility] ([facility]) [address] [place], [address], 09/09/2014 09:20:25 09/09/19 15 09/09/2014 lipid panel , serum cholesterol, total 162 mg/dL 100-19 9 Not Available [facility] ([facility]) [address] [place], [address], 09/09/2014 09:20:26 09/09/19 15 09/09/2014 lipid panel , serum triglyceride s 142 mg/dL 0-149 Not Available [facility] ([facility]) [address] [place], [address], 09/09/2014 09:20:26 09/09/19 15 09/09/2014 lipid panel , serum HDL cholesterol 45 mg/dL >39 ACCOR DING TO ATP-I II GUIDE LINES , HDL-C >59 MG/DL IS CONSI DERED A NEGAT EDOUARD RISK FACTO R FOR CHD. Not Available [facility] ([facility]) [address] [place], [address], 09/09/2014 09:20:26 09/09/19 15 09/09/2014 lipid panel , serum VLDL cholesterol tran 28 mg/dL 5-40 Not Available [facility] ([facility]) [address] [place], [address], 09/09/2014 09:20:26 09/09/19 15 09/09/2014 lipid panel , serum LDL cholesterol calc 89 mg/dL 0-99 Not Available [facility] ([facility]) [address] [place], [address], 09/09/2014 09:20:26 09/09/19 15 09/09/2014 lipid panel , serum comment: WASTE RECLAIMER Not Available [facility] ([facility]) [address] [place], [address], 09/09/2014 09:20:26 09/09/19 15 09/09/2014 lipid panel , serum T. chol/HDL ratio 3.6 ratio _unit s 0.0-4. 4 T. CHOL/ HDL RATIO MEN WOMEN 1/2 AVG.R ISK 3.4 3.3 AVG.R ISK 5.0 4.4 2X AVG.R ISK 9.6 7.1 3X AVG.R ISK 23.4 11.0 Not Available [facility] ([facility]) [address] [place], [address], 09/09/2014 09:20:26 09/09/19 15 09/09/2014 HbA1c (hemo globi n A1c), blood hemoglobin A1C 6.0 % 4.8-5. 6 high INCRE ASED RISK FOR DIABE AGUSTIN: 5.7 - 6.4 DIABE AGUSTIN: >6.4 GLYCE SCARLETT CONTR OL FOR ADULT S WITH DIABE AGUSTIN: <7.0 Not Available [facility] ([facility]) [address] [place], [address], 09/09/2014 09:20:26 09/09/1909/09/2014 TSH, serum or plasm a TSH 1.190 uIU/m L 0.450- 4.500 Not Available [facility] ([facility]) [address] [place], [address], 09/09/2014 09:20:27 09/09/1909/09/2014 album in, urine microalbumin , urine 18.2 ug/mL 0.0-17 .0 high Not Available [facility] ([facility]) [address] [place], [address], 09/09/2014 09:20:27 Result Notes None recorded. Problems Name Problem SNOMED Code Status Onset Date Resolution Date Notes Provider Name and Address Organization Details Recorded Time Allergic rhinitis 22172732 Active LILLY Colvin Attn: Accounting ,[address] [facility], [place], [place], [address] [place] [address] , [place] - [facility] 5 14:18:13 Morbid obesity 764627469 Active Beata Marina PA-C Attn: Accounting ,[address] [facility], [place], [place], [address] [place] [address] , [facility] - [facility] 6 15:52:45 Essential hypertension 23066547 Active Beata Marina PA-C Attn: Accounting ,[address] [facility], [place], [place], [address] [place] [address] , [facility] - [facility] 6 15:52:45 Contraception status 038359032 Active Beata Marina PA-C Attn: Accounting ,[address] [facility], [place], [place], [address] [place] [address] , [facility] - [facility] 6 15:52:45 Acute sinusitis 87281257 Active LILLY Colvin Attn: Accounting ,[address] [facility], [place], [place], [address] [place] [address] , [place] [facility] 5 14:37:10 Blood glucose outside reference range 038495570 Active Beata Marina PA-C Attn: Accounting ,[address] [facility], [place], [place], [address] [place] [address] , [place] [facility] 5 09:44:34 Menopausal depression [id number] Noris Marina PA-C Attn: Accounting ,[address] [facility], [place], [place], [address] [place] [address] , [place] [facility] 6 15:52:45 Irregular periods [id number] Noris Marina PA-C Attn: Accounting ,[address] [place], [place], [address] [place] [address] , [facility] - [facility] 6 15:52:45 Problem Notes [...] Name and Address Organization Details Recorded Time 06094 Product containin g penicilli n (product) medicatio n Not available Not available Not available 06/02/2014 92623 8001 SNOMED Not Available Not Available Not Available 76404 latex environme nt,medica tion Not available Not available Not available 06/02/2014 22737 91 RxNorm Not Available Not Available Not [...] Details Last Updated DateTime 5 20 /min 570511. 484655 g 96 % 96 % 166.37 cm 52 kg/m2 97.5 [degF] 81 /min 130 mm[Hg] 92 mm[Hg] Azul [facility] 5 12:12:39 Date Recorded Body weight Oxygen saturation Oxygen saturation in Arterial blood by Pulse oximetry Body height Body mass index (BMI) Heart rate Body temperature Systolic blood pressure Diastolic blood pressure Provider Name and Address Organization Details Last Updated DateTime 5 039084. 428214 g 99 % 99 % 166.37 cm 50.7 kg/m2 76 /min 98.2 [degF] 128 mm[Hg] 88 mm[Hg] Alisia [facility] 5 11:13:55 Date Recorded Body height Body temperature Heart rate Respiratory rate Systolic blood pressure Diastolic blood pressure Provider Name and Address Organization Details Last Updated DateTime 6 166.37 cm 98.2 [degF] 60 /min 16 /min 132 mm[Hg] 80 mm[Hg] Desean Harry [facility] 6 14:24:56 Date Recorded Body weight Body mass index (BMI) Provider Name and Address Organization Details Last Updated DateTime 08/04/2015 580774.348486 g 51.3 kg/m2 Beata Marina PA-C Attn: Accounting,[address] [place], [address], [facility] 08/04/2015 14:43:50 Date Recorded Respiratory rate Oxygen saturation Oxygen saturation in Arterial blood by Pulse oximetry Body weight Body temperature Heart rate Body mass index (BMI) Body height Provider Name and Address Organization Details Last Updated DateTime 5 18 /min 100 % 100 % 599922. 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 Obstetrics History GPAL:G 0 P 0 0 0 0 Past Encounters Encounter ID Performer Location Encounter Start Date Encounter Closed Date Diagnosis/Indication Diagnosis SNOMED-CT Code Diagnosis ICD10 Code Diagnosis Note [id number] [facility] [address] [place] [address] 06/02/2014 13:50:38 06/02/2014 14:37:50 Contraception status [id number] Acute sinusitis [id number] Dharmesh (Adult Med) [address] [place] [phone] 09/08/2014 11:50:33 09/08/2014 12:25:19 Contraception status [id number] Morbid obesity [id number] lost 5lbs - goal is 30lbs in 6 months Essential hypertension [id number] [facility] (Adult Med) [address] [place] [phone] 02/04/2015 10:59:35 02/04/2015 12:28:58 Contraception status [id number] Z30.41 Discussed that she is likely beginning to go through menopause and that her periods may be irregular from here on out - will reassess in 6 months - she would like to continue at this time with the OCPs Morbid obesity 847025534 E66.01 lost 8lbs - goal is 15lbs in 6 months Encouraged to bike 5 miles/day and to walk and do some weight lifting Essential hypertension 68480569 I10 Well controlled Menopausal depression 84 356854 F32.8 Will begin on paxil 10mg [id number] [facility] (Adult Med) [address] [place] [phone] 08/04/2015 14:06:18 08/04/2015 15:53:20 Morbid obesity 705220671 E66.01 Will have insurance in 2 weeks - she is going to make an appointmen t with a provider at [facility] to discuss gastric bypass surgery/th e sleeve Advised to wear compressio n stockings for bilateral LE swelling, 2+ Advised to walk Advised to stay away from soda and sugary drinks Essential hypertension 77061479 I10 Well controlled and followed by Dr. Briggs Irregular periods [id number] N92.6 Patient advised to make an appointmen t with OBGYN - patient will have insurance within the next 2 weeks - we had discussed going through [facility] but advised patient that if she is going to have insurance shortly, it would not be worth it to go through [facility] or [facility] for women's health or transvagin al Menopausal depression 84 175377 F32.8 Continue on paroxetine 10mg Contraception status 243 036977 Z30.41 Woud like to continue OCPs until [...] 06/02/2014 SLIDING FEE SCHEDULE - DISCOUNT Nolvia [place] 09/08/2014 SLIDING FEE SCHEDULE - DISCOUNT Nolvia [place] 02/04/2015 SLIDING FEE SCHEDULE - DISCOUNT Nolvia [place] 08/04/2015 1 *SELF PAY* renettatina [place] Notes Date Note Type Note Provider Name [...] visit Beata Marina PA-C Attn: Accounting,[address] [facility], [place], [address], [facility] 02/04/2015 12:28:19 08/04/2015 text/html MenopauseReporte d bypatient.Onset/Timing [...] that she talk to with someone at [facility] concerning the lap band)Notes:Had labs completed for Dr. Briggs in April and states that everything was normal minus being borderline diabetic Beata Marina PA-C Attn: Accounting,[address] [facility], [place], [address], [facility] 08/04/2015 15:53:08 OBGyn Episode No OBEpisode recorded.
--- OUTSIDE RECORDS SUMMARY | 2024-05-08 08:33 | XMS_ITS | Encounter Summary ---
Author Organization [facility] Healthcare Address [address] [place] [address] Care Team Providers Care Mine Administrator Supervisor Name Role Phone Tiffany Edmond NP Primary Care Provider [phone] Reason for Visit * Reason Onset Date Comments Additional Services Or Orders 03/22/2024 Call Back 03/22/2024 Encounter Details Date Type Department Care Team (Late st Contact Info) Description 03/22/2024 Telephone [facility] Internal Medicine at [place] [address] [place] [address] Tiffany Edmond, JYOTI [address] [place] [address] Additional Services Or Orders; Call [...] on file Legal Sex 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 ERSITY TEACHER * Telephone Encounter - Nolvia Joshi - 03/22/2024 10:53 AM UNIVERSITY TEACHER Medical Question/Miscellaneous Caller???s Concern: Patient states she talked to [facility] and they told her they need more information so they sent a statement back to JYOTI Allen's office and are still waiting for the return of the info needed. Does message need to be routed? Yes-Action Needed ERSITY TEACHER documented in this encounter Plan of Treatment Not on file documented as of this encounter Visit Diagnoses Not on filedocumented in this encounter Additional Health Concerns Infection Onset Date Last Indicated Resolved Time COVID: Suspected 04/02/2024 04/02/2024 04/02/2024 10:50 PM UNIVERSITY TEACHER documented as of this encounter Care Teams Mine Administrator Supervisor Relationship Specialty Start Date End Date Tiffany Edmond NP [address] [address] PCP - General Internal Medicine 07/12/22 documented as of this encounter
--- OUTSIDE RECORDS SUMMARY | 2024-05-08 08:33 | XMS_ITS | Encounter Summary ---
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
--- OUTSIDE RECORDS SUMMARY | 2024-05-08 08:35 | XMS_ITS | Referral Summary ---
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 Primary Care Provider [phone] Encounters Date Type Department Care Team Description 05/07/2024 Orders Only [facility] Medical Group Cardiology [address] [place] [address] Kellie Swenson MA Prolonged QT interval (Primary Dx) 05/07/2024 Telephone [facility] Medical Group Cardiology [address] [place] [address] Karie Rodríguez MD Lab Results 05/07/2024 9:30 AM TRIMMER CLIMBER Office Visit [facility] Medical [facility] [place] [address] [place] [address] [address] [place] [address] Tiffany Edmond NP Physical exam, annual (Primary Dx); Knee ulcer due to DM (HCC); Class 3 severe obesity due to excess calories with serious comorbidity and body mass index (BMI) of 60.0 to 69.9 in adult (HCC) 05/06/2024 8:00 AM TRIMMER CLIMBER Orders Only [facility] Medical Office Building 2 Wound Care [address] [place] [address] [address] [place] [address] [phone] 05/02/2024 2:00 PM TRIMMER CLIMBER Telemedicine [facility] Minimally Invasive Surgery [address] [facility] Medical Office Building [address] [place] [phone] Jessica Cardenas NP BMI 50.0-59.9, adult (HCC) (Primary Dx); Weight loss counseling, encounter for; BMI 60.0-69.9, adult (HCC) 04/29/2024 Orders Only [facility] Medical Group [facility] [place] [address] [place] [address] Tiffany Edmond NP 04/29/2024 2:45 PM TRIMMER CLIMBER Orders Only [facility] Medical Office Building 2 Wound Care [address] [facility] [address] [place] [address] 04/29/2024 1:00 PM TRIMMER CLIMBER Office Visit [facility] Medical Group Cardiology [address] [place] [address] Karie Rodríguez MD Essential (primary) hypertension (Primary Dx); Lymphedema; Chronic combined systolic and diastolic congestive heart failure (HCC); Prolonged QT interval 04/25/2024 Telephone [facility] 12th [place] [address] [place] [phone] Kellie Castillo 04/25/2024 Telephone [facility] Medical Group [facility] [place] [address] [place] [address] Tiffany Edmond NP Recommendation Request 04/22/2024 1:00 PM TRIMMER CLIMBER Orders Only [facility] Medical Office Building 2 Wound Care [address] [facility] [address] [place] [address] 04/18/2024 Telephone [facility] [address] [facility] Medicine 12th [place] [address] [place] [address] Kellie Castillo 04/18/2024 Telephone [facility] Medical Group [facility] [place] [address] [place] [address] Tiffany Edmond NP Additional Services Or Orders 04/17/2024 Telephone [facility] Medical Group [facility] [place] [address] [place] [address] Tiffany Edmond NP Medical Question/Miscellaneo us 04/17/2024 9:00 AM TRIMMER CLIMBER Office Visit [facility] Medical Group [facility] [place] [address] [place] [address] Tiffany Edmond NP Primary insomnia (Primary Dx); BMI 60.0-69.9, adult (HCC); Obesity, morbid, BMI 40.0-49.9 (HCC); OAB (overactive bladder); Neuropathy; Leg wound, left, subsequent encounter 04/11/2024 8:00 AM TRIMMER CLIMBER Orders Only [facility] Medical Office Building 2 Wound Care [address] [facility] [address] [place] [address] Knee ulcer due to DM (HCC) 04/02/2024 8:33 PM TRIMMER CLIMBER - 04/08/2024 5:29 PM TRIMMER CLIMBER Hospital Encounter [facility] [address] [place] [address] [facility] [place] [address] Prograis, MD Sina Holbrook, MD Marcelo Puente, [...] home health skilled care 04/03/2024 Orders Only [facility] [address] [facility] [address] [place] [address] Ericka Glass MD Lymphedema (Primary Dx); Wound of left lower extremity, subsequent encounter 04/02/2024 2:00 PM TRIMMER CLIMBER Office Visit [facility] Medical Group [facility] [place] [address] [place] [address] Tiffany Edmond NP Knee ulcer due to DM (HCC) (Primary Dx); Class 3 severe obesity due to excess calories with serious comorbidity and body mass index (BMI) of 60.0 to 69.9 in adult (HCC) 04/01/2024 Telephone [facility] [address] [facility] [address] [place] [phone] Tanesha Rojas, [facility] 04/01/2024 Telephone [facility] Medical Group [facility] [place] [address] [facility] [address] [place] [phone] Tiffany Edmond NP Medical Question/Miscellaneo us 04/01/2024 9:00 AM TRIMMER CLIMBER - 04/01/2024 11:59 PM TRIMMER CLIMBER Hospital Encounter [facility] [address] [place] [address] Status post reverse arthroplasty of right shoulder Discharge Disposition: Discharge to home or self care 04/01/2024 9:15 AM TRIMMER CLIMBER Office Visit [facility] [address] [place] [address] Advanced Medicine 12th [place] [address] [place] [address] Krysten Cohn MD Status post reverse arthroplasty of right shoulder (Primary Dx) 03/27/2024 2:09 PM TRIMMER CLIMBER - 03/27/2024 11:59 PM TRIMMER CLIMBER Hospital Encounter [facility] [address] [place] [address] Discharge Disposition: Discharge to home or self care 03/27/2024 Telephone [facility] [address] [facility] Advanced Medicine 12th [place] [address] [place] [address] Krysten Cohn MD 03/27/2024 Orders Only [facility] [address] [facility] 12th [place] [address] [place] [address] Krysten Cohn MD Open knee wound, left, initial encounter (Primary Dx) 03/27/2024 Orders Only [facility] [address] [facility] [address] [place] [address] Ericka Glass MD Prepatellar bursitis of left knee 03/27/2024 12:40 PM TRIMMER CLIMBER Office Visit [facility] [address] [facility] [address] [place] [address] Ericka Glass MD Prepatellar bursitis of left knee (Primary Dx); Encounter for screening examination for sexually transmitted disease; Wound of left lower extremity, subsequent encounter; Lymphedema 03/26/2024 Telephone [facility] [address] [place] [address] 12th [place] [address] [place] [address] Krysten Cohn MD 03/26/2024 Telephone [facility] [address] [place] [address] 12th [place] [address] [place] [address] Krysten Cohn MD 03/25/2024 Telephone [facility] Medical Group Internal Medicine at [address] [place] [address] Tiffany Edmond NP Additional Services Or Orders 03/22/2024 Telephone [facility] Medical Group Internal Medicine at [address] [place] [address] Tiffany Edmond NP Additional Services Or Orders; Call Back 03/20/2024 Telephone [facility] Medical [facility] [place] [address] [place] [address] Tiffany Edmond NP Patient Running Late For Apt 03/20/2024 8:00 AM TRIMMER CLIMBER Office Visit [facility] Medical [facility] [place] [address] [place] [address] Rd [address] [place] [address] Tiffany Edmond NP History of right shoulder replacement (Primary Dx); Morbid obesity with BMI of 50.0-59.9, adult (HCC); Acute cough; Wound of left lower extremity, subsequent encounter 03/18/2024 Telephone [facility] [place] [address] [place] [address] Rd [address] [place] [address] Tiffany Edmond NP JASPER Questions 03/13/2024 Telephone [facility] [place] [address] [place] [address] Rd [address] [place] [address] Tiffany Edmond NP Additional Services Or Orders 03/13/2024 Telephone [facility] [address] [facility] [address] [place] [address] Bernie Mason, [employer] [facility] [address] 03/13/2024 Telephone [facility] [place] [address] [place] [address] [address] [place] [address] Tiffany Edmond NP Medical Question/Miscellaneo us 03/13/2024 Telephone [facility] 12th [place] [address] [place] [address] Krysten Cohn MD 03/12/[address] [address] Caitie Farris RN 02/23/2024 10:54 AM TRIMMER CLIMBER - 03/12/2024 8:34 PM TRIMMER CLIMBER Hospital Encounter [address] [address] Krysten Cohn MD Musleh, Amjad, MD Closed dislocation of right shoulder, sequela (Primary Dx); Fracture of humeral head, closed, right, with routine healing, subsequent encounter; Traumatic complete tear of right rotator cuff, sequela; Status post reverse arthroplasty of right shoulder [Z96.611]; Peripheral nerve catheter present [Z97.8]; Acute hypoxemic respiratory failure (HCC); Renal insufficiency; Acute respiratory failure with hypoxia (HCC); MARY (acute kidney injury); Acute respiratory failure, unspecified whether with hypoxia or hypercapnia (HCC); Acute postoperative pain of right shoulder; Acute respiratory failure with hypoxia and hypercapnia (HCC); Edema of both legs; Localized swelling of left lower extremity; Anxiety; Acute pain of right shoulder; Essential hypertension; Primary insomnia; Essential hypertension; Hypokalemia Discharge Disposition: Discharge to [facility] 03/01/2024 Telephone [facility] [address] [facility] Advanced Medicine 8th [place] [address] [place] [address] Efrne Abbasia 02/27/2024 Orders Only [facility] [address] [place] [address] Art Ventura RN 02/26/2024 6:05 AM TRIMMER CLIMBER Ancillary Procedure [facility] [address] [facility] [address] [place] [address] 02/23/2024 Telephone [facility] [address] [facility] [address] [place] [address] Marilyn Hernandez MA 02/23/2024 2:20 PM TRIMMER CLIMBER - 02/23/2024 5:30 PM TRIMMER CLIMBER Surgery [facility] Operating Room [address] [place] [address] Krysten Cohn MD Right Reverse Shoulder Arthroplasty 02/23/2024 2:42 PM TRIMMER CLIMBER Anesthesia Event [facility] Operating Room [address] [place] [address] Andriy Martínez MD PhD Marley Grover NP 02/15/2024 8:00 AM TRIMMER CLIMBER Pre-Admission Testing [facility] Center for Preoperative Assessment and Planning [facility] ([facility]) [address] [place] [address] Preoperative testing (Primary Dx); Closed dislocation of right shoulder, initial encounter; Fracture of humeral head, closed, right, with routine healing, subsequent encounter 02/13/2024 10:30 AM TRIMMER CLIMBER Office Visit [facility] Medical [facility] [place] [address] [facility] [address] [place] [address] Tiffany Edmond NP Acute pain of right shoulder (Primary Dx); Morbid obesity with BMI of 50.0-59.9, adult (HCC) 02/12/2024 1:20 PM TRIMMER CLIMBER Telemedicine [facility] Minimally Invasive Surgery [address] [place] [address] Medical Office Building 4 [address] [place] [address] Jessica Cardenas NP Morbid obesity (HCC) (Primary Dx); Encounter for weight management; H/O gastric bypass from Last 3 Months Allergies Active Allergy [...] received and tolerated cefazolin, cefepime and cefadroxil [place] Swelling,Edema Medium Reaction: SWELLING, Medications multivitamin tablet [...] (81 mg total) by mouth daily Active traMADoL 100 mg tablet Take 100 [...] loss, (Zepbound) 5 mg/0.5 mL pen injectorIndicat ions:Weight Loss Management for Obese Patient (BMI >= 30),Not taking right now. Inject 0.5 mL (5 mg total) under the skin every 7 days 2 mL 3 05/02/19 25 Active magnesium oxide (MAG-OX) 400 mg (241.3 mg elemental magnesium) tabletIndicatio ns:hypomagnesem ia Take 1 tablet (400 mg total) by mouth 2 (two) times a day 60 tablet 5 05/08/19 25 Active furosemide (LASIX) 20 mg tabletIndicatio [...] daily 90 capsule 01/24/20 24 025 Discontinued oxyBUTYnin (DITROPAN) 5 mg tabletIndicatio ns:OAB (overactive bladder) Take 1 tablet by mouth twice daily 60 tablet 03/21/19 25 025 Discontinued(Re order) ciprofloxacin (CIPRO) 500 mg tabletIndicatio ns:Skin/Soft Tissue [...] 7 doses 7 capsule 04/08/19 25 025 magnesium oxide (MAG-OX) 400 mg (241.3 mg elemental magnesium) tabletIndicatio ns:hypomagnesem ia Take 1 tablet (400 mg total) by mouth 2 (two) times a day 60 tablet 04/08/19 25 025 Discontinued(Ot her) tirzepatide, weight loss, (Zepbound) 5 mg/0.5 mL pen injectorIndicat ions:Not taking right now. Inject 0.5 mL (5 mg total) under the skin every 7 days 04/08/19 25 025 Discontinued(Re order) traZODone (DESYREL) 50 mg tabletIndicatio ns:Primary insomnia Take 1 tablet (50 mg total) by mouth nightly 90 tablet 1 04/17/19 25 025 Discontinued Active Problems Problem Noted Date Diagnosed Date Chronic combined systolic an d diastolic congestive heart failure 04/29/2024 Prolonged QT interval 04/29/2024 Cutaneous abscess of left lower extremity 2024 Hypocalcemia 04/05/2024 Prediabetes 04/05/2024 Sepsis due to skin infection 04/03/2024 Type 2 diabetes mellitus wit h hyperosmolarity without coma, without long-term current use of insulin 04/03/2024 Other hyperlipidemia 04/03/2024 Macrocytic anemia 04/03/2024 Transaminitis 04/03/2024 Leukocytosis 04/03/2024 Skin ulcer of upper arm, limited to breakdown of skin 04/03/2024 Knee ulcer due to DM 04/03/2024 BMI 60.0-69.9, adult 04/02/2024 Assessment & Plan (05/07/2024 9:30 AM TRIMMER CLIMBER): Discussed the patient's BMI. The BMI is above average. BMI management plan is completed. BMI Follow-up includes: nutrition counseling, exercise counseling and education provided. Assessment & Plan (04/02/2024 2:14 PM TRIMMER CLIMBER): Discussed the patient's BMI. The BMI is above average. BMI management plan is completed. BMI Follow-up includes: nutrition counseling, exercise counseling and education provided. Cellulitis of left lower extremity 04/02/2024 Leg wound, left, subsequent encounter 03/20/2024 Blood culture positive for microorganism 024 Assessment & Plan (2024 11:33 AM TRIMMER CLIMBER): Blood cx 03/07 positive for staph epidermidis on 23, since then on 24, 26 NGTD - Likely was contaminant, do not [...] medication. Assessment & Plan (2024 1:05 PM TRIMMER CLIMBER): Nolvia Branch is a 53 y.o. female [...] MARY/hypoxemia Assessment & Plan (03/03/2024 5:27 PM TRIMMER CLIMBER): Continue cefazolin 2gm IV q 8hrs. If crcl drops under 50 this will need dose adjustment She has not had bacteremia or joint involvement, so I do not anticipate needing prolonged IV abx Would continue cefazolin with anticipated transition to PO abx at hospital discharge to complete 14-21 day course Assessment & Plan (2024 11:34 AM TRIMMER CLIMBER): Cultures positive for MSSA - agree with ID team plan for Ancef LFT elevation 03/03/2024 Assessment & Plan (03/05/2024 12:30 PM TRIMMER CLIMBER): Hepatitis panel negative. US showing hepatic steatosis. Possibly related to episode of hypotensions vs DILI - resolving Acute postoperative pain of right shoulder 02/25 Respiratory failure 02/25/2024 Assessment & Plan (03/03/2024 10:32 AM TRIMMER CLIMBER): Patient developed acute hypoxic respiratory failure which has now resolved and patient is off oxygen Most recent chest x-ray showed clear lungs Peripheral nerve catheter present 02/24/2024 Traumatic complete tear of right rotator cuff History of right shoulder replacement 02/23/2024 Assessment & Plan (03/03/2024 10:31 AM TRIMMER CLIMBER): Ortho team primary, management per ortho Acute [...] 10/14/2021 Assessment & Plan (03/03/2024 10:37 AM TRIMMER CLIMBER): Patient required CRRT during hospitalization, Now creatinine [...] 12/12/2020 Assessment & Plan (01/22/2021 2:28 PM TRIMMER CLIMBER): Repeat cmp in 30d Assessment & Plan (12/15/2020 2:58 PM CDT): Repeat bmp this week Hypokalemia 12/12/2020 Assessment & Plan (10/14/2021 11:47 AM CDT): We reviewed recent labs, will repeat bmp this week. Assessment & Plan (01/22/2021 2:28 PM TRIMMER CLIMBER): Continue with lasix and kcl Repeat a cmp in 30d Assessment & Plan (12/15/2020 2:58 PM CDT): Repeat bmp this week Insulin resistance 09/21/2020 Overview (09/21/2020): Fasting insulin 23.8; glucose 127 -- CLAUDIA-IR 7.5 Assessment & Plan (08/09/2021 10:59 AM CDT): Reviewed interim labs. Continue low-carb (<150 g/day), low-glycemic diet. Continue GLP-1 RA. Assessment & Plan (05/12/2021 9:49 PM TRIMMER CLIMBER): Reviewed interim labs. Continue low-carb (<150 g/day), low-glycemic diet. Resume GLP-1 RA. Assessment & Plan (09/21/2020 4:21 PM CDT): Reviewed labs. Continue low-carb (<150 g/day), low-glycemic diet. Contact dermatitis 09/08/2020 Assessment & Plan (09/08/2020 12:52 PM CDT): Will use mdp and topical triamcinolone Lymphedema of both lower extremities 09/08/2020 Assessment & Plan (01/22/2021 2:28 PM TRIMMER CLIMBER): Continue with lasix and natividad benítez Assessment [...] phone. Assessment & Plan (05/12/2021 9:46 PM TRIMMER CLIMBER): Reviewed calorie restriction based on BMR as previously detailed. Reviewed recommendation/goal of >/= 150 minutes/week moderate-intensity aerobic exercise. Asked to keep detailed food diary for at least 1 week and bring to next visit and/or continue tracking on phone. Assessment & Plan (04/01/2021 8:26 PM TRIMMER CLIMBER): Reviewed calorie restriction based on BMR as [...] 08/18/2020 Assessment & Plan (04/01/2021 8:26 PM TRIMMER CLIMBER): Continue low-carb (<150 g/day), low-glycemic diet. Continue [...] w/r/t gut microbiome. Referred to ADA and [facility] websites for additional information on topics including glycemic index/carbohydrate choices, protein sources. Class 3 severe obesity due t o excess calories with serious comorbidity and body mass index (BMI) of 60.0 to 69.9 in adult 07/20/2020 Assessment & Plan (04/17/2024 9:03 AM TRIMMER CLIMBER): Discussed the patient's BMI. The BMI is [...] provided. Assessment & Plan (05/12/2021 9:52 PM TRIMMER CLIMBER): Obesity is worsening. Diet interventions: resume Wegovy. Regular aerobic exercise program discussed. Pharmacotherapy as ordered. Assessment & Plan (04/01/2021 8:28 PM TRIMMER CLIMBER): Obesity is unchanged. Diet interventions: as noted. Regular aerobic exercise program discussed. Pharmacotherapy as ordered. Continue Wegovy. Assessment & Plan (01/22/2021 2:30 PM TRIMMER CLIMBER): Obesity is unchanged. Discussed the patient's BMI. [...] to work out until she sees the rn complex care She was advised no etoh Assessment & [...] labs. Assessment & Plan (03/10/2020 4:31 PM TRIMMER CLIMBER): Fasting labs entered, will notify patient of [...] time Assessment & Plan (01/22/2021 2:28 PM TRIMMER CLIMBER): Increase effexor Repeat cmp in 30d to evaluate for hyponatremia Assessment & Plan (09/08/2020 12:52 PM CDT): Advised her of potential qt prolongation with olanzepine. Reviewed up to date guidelines and will increase her effexor by 37.5mg every day. She was advised that her xanax will not be increased. 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 Assessment & Plan (07/28/2020 11:53 [...] 60-80. Assessment & Plan (03/10/2020 4:31 PM TRIMMER CLIMBER): Continue medication same Fasting labs entered, will notify patient of results as available Obesity, morbid, BMI 40.0-49.9 11/26/2015 Assessment & Plan (03/20/2024 8:22 AM TRIMMER CLIMBER): Discussed the patient's BMI. The BMI is above average. BMI management plan is completed. BMI Follow-up includes: nutrition counseling, exercise counseling and education provided. Assessment & Plan (04/27/2022 10:18 AM TRIMMER CLIMBER): Discussed the patient's BMI. The BMI is [...] Date Resolved Date Heart failure with reduced ejection fraction 04/29/2024 Assessment & Plan (03/05/2024 12:30 PM TRIMMER CLIMBER): TTE: EF 47% - Cardiology planning outpatient [...] provided Assessment & Plan (04/27/2022 10:18 AM TRIMMER CLIMBER): Discussed the patient's BMI. The BMI is [...] 04/27/2022 Assessment & Plan (02/15/2022 10:08 AM TRIMMER CLIMBER): Obesity is unchanged. Discussed the patient's BMI. [...] provided. Assessment & Plan (01/22/2021 2:30 PM TRIMMER CLIMBER): Obesity is unchanged. Discussed the patient's BMI. [...] 03/20/2024 Assessment & Plan (02/13/2024 10:34 AM TRIMMER CLIMBER): Discussed the patient's BMI. The BMI is above average. BMI management plan is completed. BMI Follow-up includes: nutrition counseling, exercise counseling and education provided. Assessment & Plan (01/10/2024 9:18 AM TRIMMER CLIMBER): Discussed the patient's BMI. The BMI is [...] provided. Assessment & Plan (03/02/2023 9:15 AM TRIMMER CLIMBER): Discussed the patient's BMI. The BMI is [...] Influenza, Unspecified 04/17/2024(Deferr ed: Patient Refused),03/20/2024(Deferred: Patient Refused),03/06/2024(Deferred: Patient Refused),02/13/2024(Deferred: Patient Refused),03/06/2023(Deferred: Patient Refused),03/06/2023(Deferred: Patient [...] drink = 0.6 oz pur e alcohol) [facility] Utilities Answer Date Recorded In [...] often do you attend chur ch or advent services? Never 04/03/2024 Do you belong to any clubs o r organizations such as orthodoxy groups, unions, fraternal or athletic groups, or [...] points, staff should administer the PHQ-9) 0 05/07/2024 Hunger Vital Sign Answer Date Recorded Within [...] any time in the past 12 [facility], were you homeless or living [...] on file Legal Sex Female 4:51 AM TRIMMER CLIMBER Gender Identity Female 10/09/2020 9:44 AM CDT Sexual Orientation Straight 07/19/2020 12 :16 PM CDT Occupation Industry Job Start Date Job End Date [employer] Not on file Not on file Not on file Last Filed Vital Signs Vital Sign Reading Time Taken Comments Blood Pressure 134/86 05/07/2024 9:27 AM TRIMMER CLIMBER Pulse 83 05/07/2024 9:27 AM TRIMMER CLIMBER Temperature 36.6 C (97.9 F) 05/07/2024 9:27 AM TRIMMER CLIMBER Respiratory Rate 18 04/08/2024 3:16 PM TRIMMER CLIMBER Oxygen Saturation 96% 05/07/2024 9:27 AM TRIMMER CLIMBER Inhaled Oxygen Concentration - - Weight 154.2 kg (340 lb) 05/07/2024 9:27 AM TRIMMER CLIMBER Height 160 cm (5' 3 ) 05/07/2024 9:27 AM TRIMMER CLIMBER Body Mass Index 60.23 05/07/2024 9:27 AM TRIMMER CLIMBER Plan of Treatment Not on file Medical Devices Implanted Type Area Funeral Director'S Assistant Device Identifier Shelf Expiration Date Model / Serial / Lot Miira Tornier Aequalis Perform 25mm Lateralize Augment Reverse Shoulder [id number] - [id number] - [id number] Implanted:Qty: 1 on 02/23/2024 by Krysten Cohn MD at [facility] Right: Shoulder [employer] 01/28/2029 [id number] / [id number] / [employer] Aequalis Perform Reversed Od6.5 Mm L40 Mm Central Glenoid Screw Baseplate Nonsterile [id number] - [id number] Implanted:Qty: 1 on 02/23/2024 by Krysten Cohn MD at [facility] Right: Shoulder [employer] [id number] / / [employer] Screw Glenoid Locking Reverse Aequalis Perform 5x14mm Titanium [id number] - [id number] Implanted:Qty: 1 on 02/23/2024 by Krysten Cohn MD at [facility] Right: Shoulder [employer] [id number] / / [employer] Aequalis Perform Reversed 5mm 30mm Peripheral Glenoid Screw [id number] - [id number] Implanted:Qty: 2 on 02/23/2024 by Krysten Cohn MD at [facility] Right: Shoulder [employer] [id number] / / [employer] Component Glenosphere Reverse Lateralized Aequalis Perform +3x36mm [id number] - [id number] - [id number] Implanted:Qty: 1 on 02/23/2024 by Krysten Cohn MD at [facility] Right: Shoulder [employer] 11/02/2028 [id number] / [id number] / [employer] Stem Fracture Sz 11 L 130mm Humeral [id number] - [id number] - [id number] Implanted:Qty: 1 on 02/23/2024 by Krysten Cohn MD at [facility] Right: Shoulder [employer] 08/13/2028 [id number] / [id number] / [employer] Insert Perform Ret Ve [id number] - [id number] - [id number] Implanted:Qty: 1 on 02/23/2024 by Krysten Cohn MD at [facility] Right: Shoulder [employer] [id number] 03/30/2025 [id number] / [id number] / Procedures Procedure Name Priority Date/Time Associated Diagnosis Comments ELECTROCARDIOGRAM REPORT Routine 04/29/2024 3:06 PM TRIMMER CLIMBER Chronic combined systolic and diastolic congestive heart failure (HCC) Prolonged QT interval SCAN - LABS Routine 04/29/2024 1:59 PM TRIMMER CLIMBER POCT LIPID PANEL Routine 04/29/2024 12:42 PM TRIMMER CLIMBER Essential (primary) hypertension Chronic combined systolic and diastolic congestive heart failure (HCC) MAGNESIUM Routine 04/08/2024 2:35 AM TRIMMER CLIMBER EGFR Routine 04/08/2024 2:35 AM TRIMMER CLIMBER BASIC METABOLIC PANEL Routine 04/08/2024 2:35 AM TRIMMER CLIMBER EGFR Routine 04/07/2024 2:59 AM TRIMMER CLIMBER BASIC METABOLIC PANEL Routine 04/07/2024 2:59 AM TRIMMER CLIMBER SODIUM LEVEL Routine 04/06/2024 11:34 AM TRIMMER CLIMBER EGFR Routine 04/06/2024 4:02 AM TRIMMER CLIMBER DIFFERENTIAL AUTO Routine 04/06/2024 4:0 2 AM TRIMMER CLIMBER CBC WITH AUTO DIFFERENTIAL Routine 04/06/2024 4:02 AM TRIMMER CLIMBER BASIC METABOLIC PANEL Routine 04/06/2024 4:02 AM TRIMMER CLIMBER EGFR Routine 04/05/2024 4:59 AM TRIMMER CLIMBER DIFFERENTIAL AUTO Routine 04/05/2024 4:5 9 AM TRIMMER CLIMBER CBC WITH AUTO DIFFERENTIAL Routine 04/05/2024 4:59 AM TRIMMER CLIMBER BASIC METABOLIC PANEL Routine 04/05/2024 4:59 AM TRIMMER CLIMBER VANCOMYCIN LEVEL TROUGH Timed 04/04/19 11:04 AM TRIMMER CLIMBER EGFR Routine 04/04/2024 2:48 AM TRIMMER CLIMBER DIFFERENTIAL AUTO Routine 04/04/2024 2:4 8 AM TRIMMER CLIMBER COMPREHENSIVE METABOLIC PANEL Routine 04/04/2024 2:48 AM TRIMMER CLIMBER CBC WITH AUTO DIFFERENTIAL Routine 04/04/2024 2:48 AM TRIMMER CLIMBER POCT GLUCOSE DEVICE Routine 04/03/2024 4 :41 PM TRIMMER CLIMBER US VEIN DUPLEX LOWER EXTREMITY BILATERAL COMPLETE ED 04/03/2024 10:00 AM TRIMMER CLIMBER EGFR Routine 04/03/2024 7:19 AM TRIMMER CLIMBER T4, FREE Routine 04/03/2024 7:19 AM TRIMMER CLIMBER DIFFERENTIAL AUTO Routine 04/03/2024 7:1 9 AM TRIMMER CLIMBER BASIC METABOLIC PANEL Routine 04/03/2024 7:19 AM TRIMMER CLIMBER FOLATE Routine 04/03/2024 7:19 AM TRIMMER CLIMBER THYROID FUNCTION CASCADE Routine 04/03/2024 7:19 AM TRIMMER CLIMBER HEMOGLOBIN A1C Routine 04/03/2024 7:19 AM TRIMMER CLIMBER IRON PROFILE W/ IBC Routine 04/03/2024 7 :19 AM TRIMMER CLIMBER FERRITIN Routine 04/03/2024 7:19 AM TRIMMER CLIMBER VITAMIN B12 Routine 04/03/2024 7:19 AM TRIMMER CLIMBER CBC WITH AUTO DIFFERENTIAL Routine 04/03/2024 7:19 AM TRIMMER CLIMBER LIPID PANEL Routine 04/03/2024 7:19 AM TRIMMER CLIMBER PRO B-TYPE NATRIURETIC PEPTIDE Routine 04/03/2024 7:19 AM TRIMMER CLIMBER CRP (ACUTE PHASE) Routine 04/03/2024 7:1 9 AM TRIMMER CLIMBER ERYTHROCYTE SEDIMENTATION RATE Routine 04/03/2024 7:19 AM TRIMMER CLIMBER LACTATE Routine 04/03/2024 7:19 AM TRIMMER CLIMBER PHOSPHORUS Routine 04/03/2024 7:19 AM TRIMMER CLIMBER MAGNESIUM Routine 04/03/2024 7:19 AM TRIMMER CLIMBER POCT GLUCOSE DEVICE Routine 04/03/2024 12:[address] ENTIRE LOWER EXTREMITY LEFT W WO CONTRAST ED 04/03/2024 12:08 AM TRIMMER CLIMBER D-DIMER, QUANTITATIVE STAT 04/02/2024 9:57 PM TRIMMER CLIMBER AEROBIC AND ANAEROBIC CULTURE AND GRAM STAIN STAT 04/02/2024 9:57 PM TRIMMER CLIMBER BLOOD CULTURE STAT 04/02/2024 9:57 PM TRIMMER CLIMBER BLOOD CULTURE STAT 04/02/2024 9:57 PM TRIMMER CLIMBER INFLUENZA A/B, RSV, AND COVID-19 PCR STAT 04/02/2024 9:57 PM TRIMMER CLIMBER XR CHEST 1 VIEW ED 04/02/2024 9:35 PM TRIMMER CLIMBER XR KNEE LEFT 1 OR 2 VIEWS ED 04/02/2024 5:10 PM TRIMMER CLIMBER XR TIBIA FIBULA LEFT 2 VIEWS ED 04/02/2024 5:10 PM TRIMMER CLIMBER EGFR STAT 04/02/2024 4:07 PM TRIMMER CLIMBER DIFFERENTIAL AUTO STAT 04/02/2024 4:0 7 PM TRIMMER CLIMBER SEPSIS LACTATE WITH REFLEX Routine 04/02/2024 4:07 PM TRIMMER CLIMBER COMPREHENSIVE METABOLIC PANEL STAT 04/02/2024 4:07 PM TRIMMER CLIMBER CBC WITH AUTO DIFFERENTIAL STAT 04/02/2024 4:07 PM TRIMMER CLIMBER XR SHOULDER RIGHT 2 OR MORE VIEWS Schedule Routine, Read Routine (OP Routine) 04/01/2024 9:46 AM TRIMMER CLIMBER Status post reverse arthroplasty of right shoulder EGFR Routine 03/27/2024 2:09 PM TRIMMER CLIMBER Prepatellar bursitis of left knee DIFFERENTIAL AUTO Routine 03/27/2024 2:0 9 PM TRIMMER CLIMBER Prepatellar bursitis of left knee GLUCOSE, RANDOM (OUTREACH) Routine 03/27/2024 2:09 PM TRIMMER CLIMBER Prepatellar bursitis of left knee COMPREHENSIVE METABOLIC PANEL WITHOUT GLUCOSE (OUTREACH) Routine 03/27/2024 2:09 PM TRIMMER CLIMBER Prepatellar bursitis of left knee ERYTHROCYTE SEDIMENTATION RATE Routine 03/27/2024 2:09 PM TRIMMER CLIMBER Prepatellar bursitis of left knee COMPREHENSIVE METABOLIC PANEL (OUTREACH) Routine 03/27/2024 2:09 PM TRIMMER CLIMBER Prepatellar bursitis of left knee CBC WITH AUTO DIFFERENTIAL Routine 03/27/2024 2:09 PM TRIMMER CLIMBER Prepatellar bursitis of left knee CRP (ACUTE PHASE) Routine 03/27/2024 2:0 9 PM TRIMMER CLIMBER Prepatellar bursitis of left knee POCT GLUCOSE DEVICE Routine 03/12/2024 7 :49 PM TRIMMER CLIMBER POCT GLUCOSE DEVICE Routine 03/12/2024 4 :39 PM TRIMMER CLIMBER POCT GLUCOSE DEVICE Routine 03/12/2024 11:41 AM TRIMMER CLIMBER POCT GLUCOSE DEVICE Routine 03/12/2024 7 :48 AM TRIMMER CLIMBER EGFR Routine 03/11/2024 9:56 PM TRIMMER CLIMBER DIFFERENTIAL AUTO Routine 03/11/2024 9:5 6 PM TRIMMER CLIMBER PHOSPHORUS Routine 03/11/2024 9:56 PM TRIMMER CLIMBER COMPREHENSIVE METABOLIC PANEL Routine 03/11/2024 9:56 PM TRIMMER CLIMBER MAGNESIUM Routine 03/11/2024 9:56 PM TRIMMER CLIMBER CBC WITH AUTO DIFFERENTIAL Routine 03/11/2024 9:56 PM TRIMMER CLIMBER POCT GLUCOSE DEVICE Routine 03/11/2024 7 :43 PM TRIMMER CLIMBER POCT GLUCOSE DEVICE Routine 03/11/2024 5 :07 PM TRIMMER CLIMBER POCT GLUCOSE DEVICE Routine 03/11/2024 11:52 AM TRIMMER CLIMBER POCT GLUCOSE DEVICE Routine 03/11/2024 7 :40 AM TRIMMER CLIMBER POCT GLUCOSE DEVICE Routine 03/10/2024 7 :47 PM TRIMMER CLIMBER POCT GLUCOSE DEVICE Routine 03/10/2024 5 :07 PM TRIMMER CLIMBER POCT GLUCOSE DEVICE Routine 03/10/2024 11:24 AM TRIMMER CLIMBER POCT GLUCOSE DEVICE Routine 03/10/2024 7 :43 AM TRIMMER CLIMBER EGFR Routine 03/09/2024 8:42 PM TRIMMER CLIMBER DIFFERENTIAL AUTO Routine 03/09/2024 8:4 2 PM TRIMMER CLIMBER PHOSPHORUS Routine 03/09/2024 8:42 PM TRIMMER CLIMBER COMPREHENSIVE METABOLIC PANEL Routine 03/09/2024 8:42 PM TRIMMER CLIMBER MAGNESIUM Routine 03/09/2024 8:42 PM TRIMMER CLIMBER CBC WITH AUTO DIFFERENTIAL Routine 03/09/2024 8:42 PM TRIMMER CLIMBER POCT GLUCOSE DEVICE Routine 03/09/2024 7 :31 PM TRIMMER CLIMBER POCT GLUCOSE DEVICE Routine 03/09/2024 4 :39 PM TRIMMER CLIMBER POCT GLUCOSE DEVICE Routine 03/09/2024 11:39 AM TRIMMER CLIMBER POCT GLUCOSE DEVICE Routine 03/09/2024 8 :27 AM TRIMMER CLIMBER EGFR Routine 03/08/2024 9:09 PM TRIMMER CLIMBER PHOSPHORUS Routine 03/08/2024 9:09 PM TRIMMER CLIMBER COMPREHENSIVE METABOLIC PANEL Routine 03/08/2024 9:09 PM TRIMMER CLIMBER MAGNESIUM Routine 03/08/2024 9:09 PM TRIMMER CLIMBER POCT GLUCOSE DEVICE Routine 03/08/2024 7 :40 PM TRIMMER CLIMBER POCT GLUCOSE DEVICE Routine 03/08/2024 5 :03 PM TRIMMER CLIMBER POCT GLUCOSE DEVICE Routine 03/08/2024 11:12 AM TRIMMER CLIMBER POCT GLUCOSE DEVICE Routine 03/08/2024 8 :18 AM TRIMMER CLIMBER EGFR Routine 03/07/2024 10:22 PM TRIMMER CLIMBER DIFFERENTIAL AUTO Routine 03/07/2024 10:22 PM TRIMMER CLIMBER PHOSPHORUS Routine 03/07/2024 10:22 PM TRIMMER CLIMBER COMPREHENSIVE METABOLIC PANEL Routine 03/07/2024 10:22 PM TRIMMER CLIMBER MAGNESIUM Routine 03/07/2024 10:22 PM TRIMMER CLIMBER CBC WITH AUTO DIFFERENTIAL Routine 03/07/2024 10:22 PM TRIMMER CLIMBER POCT GLUCOSE DEVICE Routine 03/07/2024 7 :39 PM TRIMMER CLIMBER POCT GLUCOSE DEVICE Routine 03/07/2024 5 :48 PM TRIMMER CLIMBER POCT GLUCOSE DEVICE Routine 03/07/2024 11:28 AM TRIMMER CLIMBER POCT GLUCOSE DEVICE Routine 03/07/2024 7 :44 AM TRIMMER CLIMBER EGFR Routine 03/06/2024 10:05 PM TRIMMER CLIMBER DIFFERENTIAL AUTO Routine 03/06/2024 10:05 PM TRIMMER CLIMBER PHOSPHORUS Routine 03/06/2024 10:05 PM TRIMMER CLIMBER COMPREHENSIVE METABOLIC PANEL Routine 03/06/2024 10:05 PM TRIMMER CLIMBER MAGNESIUM Routine 03/06/2024 10:05 PM TRIMMER CLIMBER CBC WITH AUTO DIFFERENTIAL Routine 03/06/2024 10:05 PM TRIMMER CLIMBER POCT GLUCOSE DEVICE Routine 03/06/2024 7 :31 PM TRIMMER CLIMBER POCT GLUCOSE DEVICE Routine 03/06/2024 5 :46 PM TRIMMER CLIMBER POCT GLUCOSE DEVICE Routine 03/06/2024 11:42 AM TRIMMER CLIMBER POCT GLUCOSE DEVICE Routine 03/06/2024 8 :47 AM TRIMMER CLIMBER PROTIME-INR STAT 03/05/2024 10:53 PM TRIMMER CLIMBER POCT GLUCOSE DEVICE Routine 03/05/2024 8 :00 PM TRIMMER CLIMBER EGFR Routine 03/05/2024 7:52 PM TRIMMER CLIMBER DIFFERENTIAL AUTO Routine 03/05/2024 7:5 2 PM TRIMMER CLIMBER PHOSPHORUS Routine 03/05/2024 7:52 PM TRIMMER CLIMBER COMPREHENSIVE METABOLIC PANEL Routine 03/05/2024 7:52 PM TRIMMER CLIMBER MAGNESIUM Routine 03/05/2024 7:52 PM TRIMMER CLIMBER CBC WITH AUTO DIFFERENTIAL Routine 03/05/2024 7:52 PM TRIMMER CLIMBER POCT GLUCOSE DEVICE Routine 03/05/2024 5 :07 PM TRIMMER CLIMBER POCT GLUCOSE DEVICE Routine 03/05/2024 11:39 AM TRIMMER CLIMBER POCT GLUCOSE DEVICE Routine 03/05/2024 8 :03 AM TRIMMER CLIMBER EGFR Routine 2024 10:39 PM TRIMMER CLIMBER DIFFERENTIAL AUTO Routine 2024 10:39 PM TRIMMER CLIMBER PHOSPHORUS Routine 2024 10:39 PM TRIMMER CLIMBER COMPREHENSIVE METABOLIC PANEL Routine 2024 10:39 PM TRIMMER CLIMBER PROTIME-INR Routine 2024 10:39 PM TRIMMER CLIMBER MAGNESIUM Routine 2024 10:39 PM TRIMMER CLIMBER CBC WITH AUTO DIFFERENTIAL Routine 2024 10:39 PM TRIMMER CLIMBER POCT GLUCOSE DEVICE Routine 2024 8 :09 PM TRIMMER CLIMBER POCT GLUCOSE DEVICE Routine 2024 4 :43 PM TRIMMER CLIMBER POCT GLUCOSE DEVICE Routine 2024 12:06 PM TRIMMER CLIMBER POCT GLUCOSE DEVICE Routine 2024 8 :37 AM TRIMMER CLIMBER MANUAL DIFFERENTIAL Routine 03/03/2024 10:26 PM TRIMMER CLIMBER EGFR Routine 03/03/2024 10:26 PM TRIMMER CLIMBER PHOSPHORUS Routine 03/03/2024 10:26 PM TRIMMER CLIMBER COMPREHENSIVE METABOLIC PANEL Routine 03/03/2024 10:26 PM TRIMMER CLIMBER PROTIME-INR Routine 03/03/2024 10:26 PM TRIMMER CLIMBER MAGNESIUM Routine 03/03/2024 10:26 PM TRIMMER CLIMBER CBC WITH AUTO DIFFERENTIAL Routine 03/03/2024 10:26 PM TRIMMER CLIMBER POCT GLUCOSE DEVICE Routine 03/03/2024 8 :17 PM TRIMMER CLIMBER XR CHEST 1 VIEW IP Routine 03/03/2024 7:14 PM TRIMMER CLIMBER POCT GLUCOSE DEVICE Routine 03/03/2024 5 :47 PM TRIMMER CLIMBER POCT GLUCOSE DEVICE Routine 03/03/2024 12:17 PM TRIMMER CLIMBER POCT GLUCOSE DEVICE Routine 03/03/2024 8 :09 AM TRIMMER CLIMBER POCT GLUCOSE DEVICE Routine 03/02/2024 11:51 PM TRIMMER CLIMBER CRITICAL CARE Routine 03/02/2024 9:58 PM TRIMMER CLIMBER Status post reverse arthroplasty of right shoulder [Z96.611] MARY (acute kidney injury) Anxiety Acute pain of right shoulder WOUND CARE Routine 03/02/2024 9:07 PM TRIMMER CLIMBER Edema of both legs Localized swelling of left lower extremity PROTIME-INR STAT 03/02/2024 8:45 PM TRIMMER CLIMBER POCT GLUCOSE DEVICE Routine 03/02/2024 8 :01 PM TRIMMER CLIMBER EGFR Routine 03/02/2024 7:12 PM TRIMMER CLIMBER DIFFERENTIAL AUTO Routine 03/02/2024 7:1 2 PM TRIMMER CLIMBER PHOSPHORUS Routine 03/02/2024 7:12 PM TRIMMER CLIMBER COMPREHENSIVE METABOLIC PANEL Routine 03/02/2024 7:12 PM TRIMMER CLIMBER MAGNESIUM Routine 03/02/2024 7:12 PM TRIMMER CLIMBER CBC WITH AUTO DIFFERENTIAL Routine 03/02/2024 7:12 PM TRIMMER CLIMBER XR CHEST 1 VIEW Timed 03/02/2024 5:39 PM TRIMMER CLIMBER CRITICAL CARE Routine 03/02/2024 5:11 PM TRIMMER CLIMBER Closed dislocation of right shoulder, sequela POCT GLUCOSE DEVICE Routine 03/02/2024 3 :14 PM TRIMMER CLIMBER EGFR Timed 03/02/2024 2:19 PM TRIMMER CLIMBER PHOSPHORUS Timed 03/02/2024 2:19 PM TRIMMER CLIMBER MAGNESIUM Timed 03/02/2024 2:19 PM TRIMMER CLIMBER BASIC METABOLIC PANEL Timed 03/02/2024 2:19 PM TRIMMER CLIMBER POCT GLUCOSE DEVICE Routine 03/02/2024 11:11 AM TRIMMER CLIMBER BLOOD GAS, VENOUS Routine 03/02/2024 8:1 4 AM TRIMMER CLIMBER POCT GLUCOSE DEVICE Routine 03/02/2024 7 :19 AM TRIMMER CLIMBER PRO B-TYPE NATRIURETIC PEPTIDE Timed 03/02/2024 5:12 AM TRIMMER CLIMBER POCT GLUCOSE DEVICE Routine 03/02/2024 3 :09 AM TRIMMER CLIMBER CRITICAL CARE Routine 03/01/2024 11:50 PM TRIMMER CLIMBER Closed dislocation of right shoulder, sequela MARY (acute kidney injury) Acute postoperative pain of right shoulder POCT GLUCOSE DEVICE Routine 03/01/2024 11:14 PM TRIMMER CLIMBER EGFR Routine 03/01/2024 8:36 PM TRIMMER CLIMBER PHOSPHORUS Routine 03/01/2024 8:36 PM TRIMMER CLIMBER MAGNESIUM Routine 03/01/2024 8:36 PM TRIMMER CLIMBER DIFFERENTIAL AUTO Routine 03/01/2024 8:3 6 PM TRIMMER CLIMBER BLOOD GAS, VENOUS Timed 03/01/2024 8:3 6 PM TRIMMER CLIMBER COMPREHENSIVE METABOLIC PANEL Routine 03/01/2024 8:36 PM TRIMMER CLIMBER PROTIME-INR Routine 03/01/2024 8:36 PM TRIMMER CLIMBER CBC WITH AUTO DIFFERENTIAL Routine 03/01/2024 8:36 PM TRIMMER CLIMBER XR CHEST 1 VIEW Timed 03/01/2024 7:53 PM TRIMMER CLIMBER POCT GLUCOSE DEVICE Routine 03/01/2024 7 :11 PM TRIMMER CLIMBER TROPONIN I HIGH-SENSITIVITY 6-HOUR Timed 03/01/2024 4:21 PM TRIMMER CLIMBER BLOOD GAS, VENOUS Timed 03/01/2024 4:2 1 PM TRIMMER CLIMBER POCT GLUCOSE DEVICE Routine 03/01/2024 3 :18 PM TRIMMER CLIMBER TRANSTHORACIC ECHO (TTE) LIMITED/FOLLOW UP W LTD DOPPLER/CF W CONTRAST STAT 03/01/2024 3:04 PM TRIMMER CLIMBER TROPONIN I HIGH-SENSITIVITY 4-HOUR Timed 03/01/2024 2:26 PM TRIMMER CLIMBER TROPONIN I HIGH-SENSITIVITY 2-HOUR Timed 03/01/2024 1:21 PM TRIMMER CLIMBER US RUQ IP Routine 03/01/2024 1:10 PM TRIMMER CLIMBER CRITICAL CARE Routine 03/01/2024 12:57 PM TRIMMER CLIMBER Acute respiratory failure with hypoxia and hypercapnia (HCC) POCT GLUCOSE DEVICE Routine 03/01/2024 11:17 AM TRIMMER CLIMBER CRITICAL RESULT CALLBACK CARDIO CHEM Routine 03/01/2024 10:29 AM TRIMMER CLIMBER TROPONIN I HIGH-SENSITIVITY SERIES (BASELINE, 2HR, 4HR, 6HR) Routine 03/01/2024 10:29 AM TRIMMER CLIMBER CREATINE KINASE (CK), TOTAL Routine 03/01/2024 10:26 AM TRIMMER CLIMBER GAMMA GT Routine 03/01/2024 10:23 AM TRIMMER CLIMBER LIPASE Routine 03/01/2024 10:23 AM TRIMMER CLIMBER HEPATITIS PANEL, ACUTE Routine 10:23 AM TRIMMER CLIMBER EGFR Timed 03/01/2024 7:41 AM TRIMMER CLIMBER BLOOD GAS, VENOUS Timed 03/01/2024 7:4 1 AM TRIMMER CLIMBER PROTIME-INR Timed 03/01/2024 7:41 AM TRIMMER CLIMBER COMPREHENSIVE METABOLIC PANEL Timed 03/01/2024 7:41 AM TRIMMER CLIMBER POCT GLUCOSE DEVICE Routine 03/01/2024 7 :22 AM TRIMMER CLIMBER MANUAL DIFFERENTIAL Routine 03/01/2024 6 :40 AM TRIMMER CLIMBER CBC WITH AUTO DIFFERENTIAL Routine 03/01/2024 6:40 AM TRIMMER CLIMBER POCT GLUCOSE DEVICE Routine 03/01/2024 3 :08 AM TRIMMER CLIMBER LACTATE STAT 03/01/2024 12:11 AM TRIMMER CLIMBER POCT GLUCOSE DEVICE Routine 02/29/2024 11:10 PM TRIMMER CLIMBER EGFR Timed 02/29/2024 10:33 PM TRIMMER CLIMBER HEMOGLOBIN AND HEMATOCRIT Routine 02/29/2024 10:33 PM TRIMMER CLIMBER BLOOD GAS, VENOUS Timed 02/29/2024 10:33 PM TRIMMER CLIMBER PROTIME-INR Timed 02/29/2024 10:33 PM TRIMMER CLIMBER COMPREHENSIVE METABOLIC PANEL Timed 02/29/2024 10:33 PM TRIMMER CLIMBER CRITICAL CARE Routine 02/29/2024 8:54 PM TRIMMER CLIMBER Closed dislocation of right shoulder, sequela POCT GLUCOSE DEVICE Routine 02/29/2024 7 :13 PM TRIMMER CLIMBER XR CHEST 1 VIEW Timed 02/29/2024 6:29 PM TRIMMER CLIMBER LACTATE STAT 02/29/2024 6:01 PM TRIMMER CLIMBER BLOOD GAS, VENOUS STAT 02/29/2024 6:0 1 PM TRIMMER CLIMBER POC BLOOD GAS AND CHEMISTRIES, VENOUS Routine 02/29/2024 5:47 PM TRIMMER CLIMBER POCT GLUCOSE DEVICE Routine 02/29/2024 3 :25 PM TRIMMER CLIMBER BLOOD CULTURE Routine 02/29/2024 2:52 PM TRIMMER CLIMBER BLOOD CULTURE Routine 02/29/2024 2:52 PM TRIMMER CLIMBER BLOOD GAS, VENOUS Routine 02/29/2024 2:2 2 PM TRIMMER CLIMBER POCT GLUCOSE DEVICE Routine 02/29/2024 11:11 AM TRIMMER CLIMBER EGFR Timed 02/29/2024 10:58 AM TRIMMER CLIMBER BLOOD GAS, VENOUS STAT 02/29/2024 10:58 AM TRIMMER CLIMBER BASIC METABOLIC PANEL Timed 02/29/2024 10:58 AM TRIMMER CLIMBER EGFR Timed 02/29/2024 8:19 AM TRIMMER CLIMBER BLOOD GAS, VENOUS Timed 02/29/2024 8:1 9 AM TRIMMER CLIMBER PROTIME-INR Timed 02/29/2024 8:19 AM TRIMMER CLIMBER COMPREHENSIVE METABOLIC PANEL Timed 02/29/2024 8:19 AM TRIMMER CLIMBER CRITICAL CARE Routine 02/29/2024 7:40 AM TRIMMER CLIMBER MARY (acute kidney injury) Acute respiratory failure with hypoxia and hypercapnia (HCC) POCT GLUCOSE DEVICE Routine 02/29/2024 7 :19 AM TRIMMER CLIMBER POCT GLUCOSE DEVICE Routine 02/29/2024 3 :18 AM TRIMMER CLIMBER CBC WITH AUTO DIFFERENTIAL Routine 02/28/2024 11:35 PM TRIMMER CLIMBER DIFFERENTIAL AUTO Routine 02/28/2024 11:35 PM TRIMMER CLIMBER EGFR Timed 02/28/2024 11:35 PM TRIMMER CLIMBER HEMOGLOBIN AND HEMATOCRIT Routine 02/28/2024 11:35 PM TRIMMER CLIMBER BLOOD GAS, VENOUS Timed 02/28/2024 11:35 PM TRIMMER CLIMBER PROTIME-INR Timed 02/28/2024 11:35 PM TRIMMER CLIMBER COMPREHENSIVE METABOLIC PANEL Timed 02/28/2024 11:35 PM TRIMMER CLIMBER POCT GLUCOSE DEVICE Routine 02/28/2024 11:23 PM TRIMMER CLIMBER POCT GLUCOSE DEVICE Routine 02/28/2024 7 :25 PM TRIMMER CLIMBER CRITICAL CARE Routine 02/28/2024 6:37 PM TRIMMER CLIMBER Closed dislocation of right shoulder, sequela XR CHEST 1 VIEW Timed 02/28/2024 6:12 PM TRIMMER CLIMBER POCT GLUCOSE DEVICE Routine 02/28/2024 3 :23 PM TRIMMER CLIMBER POCT GLUCOSE DEVICE Routine 02/28/2024 11:12 AM TRIMMER CLIMBER EGFR Timed 02/28/2024 9:35 AM TRIMMER CLIMBER BLOOD GAS, VENOUS Timed 02/28/2024 9:3 5 AM TRIMMER CLIMBER PROTIME-INR Timed 02/28/2024 9:35 AM TRIMMER CLIMBER COMPREHENSIVE METABOLIC PANEL Timed 02/28/2024 9:35 AM TRIMMER CLIMBER CRITICAL CARE Routine 02/28/2024 7:43 AM TRIMMER CLIMBER Acute respiratory failure, unspecified whether with hypoxia or hypercapnia (HCC) Acute postoperative pain of right shoulder Acute respiratory failure with hypoxia and hypercapnia (HCC) POCT GLUCOSE DEVICE Routine 02/28/2024 7 :32 AM TRIMMER CLIMBER HEMOGLOBIN AND HEMATOCRIT Routine 02/28/2024 4:27 AM TRIMMER CLIMBER POCT GLUCOSE DEVICE Routine 02/28/2024 3 :10 AM TRIMMER CLIMBER BLOOD GAS, VENOUS Timed 02/27/2024 11:23 PM TRIMMER CLIMBER POCT GLUCOSE DEVICE Routine 02/27/2024 11:20 PM TRIMMER CLIMBER CRITICAL CARE Routine 02/27/2024 7:55 PM TRIMMER CLIMBER Closed dislocation of right shoulder, sequela EGFR Timed 02/27/2024 7:51 PM TRIMMER CLIMBER PHOSPHORUS Timed 02/27/2024 7:51 PM TRIMMER CLIMBER PROTIME-INR Timed 02/27/2024 7:51 PM TRIMMER CLIMBER COMPREHENSIVE METABOLIC PANEL Timed 02/27/2024 7:51 PM TRIMMER CLIMBER POCT GLUCOSE DEVICE Routine 02/27/2024 7 :00 PM TRIMMER CLIMBER XR CHEST 1 VIEW Timed 02/27/2024 6:19 PM TRIMMER CLIMBER BLOOD GAS, VENOUS Routine 02/27/2024 5:5 7 PM TRIMMER CLIMBER BLOOD GAS, VENOUS Timed 02/27/2024 3:4 3 PM TRIMMER CLIMBER BLOOD CULTURE Routine 02/27/2024 12:52 PM TRIMMER CLIMBER BLOOD CULTURE Routine 02/27/2024 12:52 PM TRIMMER CLIMBER BLOOD GAS, VENOUS Routine 02/27/2024 12:19 PM TRIMMER CLIMBER POCT GLUCOSE DEVICE Routine 02/27/2024 11:13 AM TRIMMER CLIMBER DIFFERENTIAL AUTO STAT 02/27/2024 9:2 0 AM [employer] [employer] CBC WITH AUTO DIFFERENTIAL STAT 02/27/2024 9:20 AM [employer] [employer] EGFR Timed 02/27/2024 9:00 AM [employer] BLOOD GAS, VENOUS Timed 02/27/2024 9:00 AM [employer] PROTIME-INR Timed 02/27/2024 9:00 AM [employer] COMPREHENSIVE METABOLIC PANEL Timed 02/27/2024 9:00 AM [employer] [employer] CRITICAL CARE Routine 02/27/2024 8:54 AM [employer] MARY (acute kidney injury) Acute respiratory failure, unspecified whether with hypoxia or hypercapnia (HCC) Acute postoperative pain of right shoulder POCT GLUCOSE DEVICE Routine 02/27/2024 7 :10 AM [employer] HEMOGLOBIN AND HEMATOCRIT Routine 02/27/2024 5:42 AM [employer] POCT GLUCOSE DEVICE Routine 02/27/2024 3 :09 AM [employer] POCT GLUCOSE DEVICE Routine 02/26/2024 11:33 PM [employer] BLOOD GAS, VENOUS Timed 02/26/2024 11:05 PM [employer] POCT GLUCOSE DEVICE Routine 02/26/2024 9 :35 PM [employer] AEROBIC AND ANAEROBIC CULTURE AND GRAM STAIN Routine 02/26/2024 9:35 PM [employer] CRITICAL CARE Routine 02/26/2024 9:25 PM [employer] Closed dislocation of right shoulder, sequela COMPREHENSIVE METABOLIC PANEL Routine 02/26/2024 7:22 PM [employer] EGFR Routine 02/26/2024 7:22 PM [employer] DIFFERENTIAL AUTO Routine 02/26/2024 7:2 2 PM [employer] BLOOD GAS, VENOUS Timed 02/26/2024 7:2 2 PM [employer] PHOSPHORUS Routine 02/26/2024 7:22 PM [employer] MAGNESIUM Routine 02/26/2024 7:22 PM [employer] CBC WITH AUTO DIFFERENTIAL Routine 02/26/2024 7:22 PM [employer] PROTIME-INR Timed 02/26/2024 7:22 PM [employer] XR CHEST 1 VIEW IP Routine 02/26/2024 6:26 PM [employer] BLOOD GAS, VENOUS Timed 02/26/2024 5:[address] CHEST PE W CONTRAST IP Routine 4:[address] ENTIRE LOWER EXTREMITY LEFT W CONTRAST ED Urgent/IP Urgent 02/26/2024 4:33 PM [employer] POCT GLUCOSE DEVICE Routine 02/26/2024 3 :34 PM [employer] US VEIN DUPLEX LOWER EXTREMITY BILATERAL COMPLETE ED Urgent/IP Urgent 02/26/2024 12:41 PM [employer] XR CHEST 1 VIEW Critical/Life- Threatening 02/26/2024 12:35 PM [employer] BLOOD CULTURE Routine 02/26/2024 12:35 PM [employer] OXYHEMOGLOBIN, CENTRAL VENOUS STAT 02/26/2024 12:24 PM [employer] BLOOD GAS, VENOUS Timed 02/26/2024 12:18 PM [employer]BER ERYTHROCYTE SEDIMENTATION RATE Routine 02/26/2024 12:18 PM [employer] CRP (ACUTE PHASE) Routine 02/26/2024 12:18 PM [employer] POCT GLUCOSE DEVICE Routine 02/26/2024 11:45 AM [employer]BER W[place] ARTL CATHJ/CANNULJ MNTR/TRANSFUSION SPX PRQ Routine 02/26/2024 11:24 AM [employer] Acute respiratory failure, unspecified whether with hypoxia or hypercapnia (HCC) BLOOD CULTURE Routine 02/26/2024 11:13 AM [employer] TRANSTHORACIC ECHO (TTE) COMPLETE W DOPPLER/CF W CONTRAST STAT 02/26/2024 10:03 AM TR[employer] CL[employer]BER WV INSJ NON-TUNNELED CENTRAL VENOUS CATH AGE 3 YR/> Routine 02/26/2024 10:00 AM [employer] Acute respiratory failure with hypoxia and hypercapnia (HCC) POC BLOOD GAS AND CHEMISTRIES, VENOUS Routine 02/26/2024 9:56 AM [employer] EGFR STAT 02/26/2024 9:50 AM TRIMMER CLIMBER DIFFERENTIAL AUTO STAT 02/26/2024 9:5 0 AM TRIMMER CLIMBER BLOOD GAS, VENOUS STAT 02/26/2024 9:5 0 AM TRIMMER CLIMBER LACTATE STAT 02/26/2024 9:50 AM TRIMMER CLIMBER COMPREHENSIVE METABOLIC PANEL STAT 02/26/2024 9:50 AM TRIMMER CLIMBER CBC WITH AUTO DIFFERENTIAL STAT 02/26/2024 9:50 AM TRIMMER CLIMBER XR CHEST 1 VIEW ED Urgent/IP Urgent 02/26/2024 9:09 AM TRIMMER CLIMBER EGFR Timed 02/26/2024 7:52 AM TRIMMER CLIMBER BLOOD GAS, VENOUS Routine 02/26/2024 7:5 2 AM TRIMMER CLIMBER PROTIME-INR Timed 02/26/2024 7:52 AM TRIMMER CLIMBER COMPREHENSIVE METABOLIC PANEL Timed 02/26/2024 7:52 AM TRIMMER CLIMBER INFECTION PREVENTION MRSA ONLY (STAPHYLOCOCCUS AUREUS) CULTURE Routine 02/26/2024 7:52 AM TRIMMER CLIMBER POCT GLUCOSE DEVICE Routine 02/26/2024 7 :14 AM TRIMMER CLIMBER CRITICAL CARE Routine 02/26/2024 7:12 AM TRIMMER CLIMBER Acute respiratory failure with hypoxia (HCC) MARY (acute kidney injury) BLOOD GAS, VENOUS STAT 02/26/2024 3:2 9 AM TRIMMER CLIMBER HEMOGLOBIN AND HEMATOCRIT Routine 02/26/2024 3:29 AM TRIMMER CLIMBER XR KNEE LEFT 1 OR 2 VIEWS IP Routine 02/26/2024 3:14 AM TRIMMER CLIMBER WV INSJ NON-TUNNELED CENTRAL VENOUS CATH AGE 3 YR/> Routine 02/26/2024 12:23 AM TRIMMER CLIMBER Renal insufficiency WV ARTL CATHJ/CANNULJ MNTR/TRANSFUSION SPX PRQ Routine 02/26/2024 12:21 AM TRIMMER CLIMBER Renal insufficiency URINALYSIS, MICROSCOPIC ONLY Routine 02/25/2024 10:54 PM TRIMMER CLIMBER BLOOD GAS, VENOUS Timed 02/25/2024 10:54 PM TRIMMER CLIMBER URINE CULTURE Routine 02/25/2024 10:54 PM TRIMMER CLIMBER URINALYSIS AND REFLEX TO MICROSCOPIC AND CULTURE Routine 02/25/2024 10:54 PM TRIMMER CLIMBER CRITICAL CARE Routine 02/25/2024 7:45 PM TRIMMER CLIMBER Closed dislocation of right shoulder, sequela COMPREHENSIVE METABOLIC PANEL Routine 02/25/2024 7:37 PM TRIMMER CLIMBER EGFR Routine 02/25/2024 7:37 PM TRIMMER CLIMBER PROTIME-INR Timed 02/25/2024 7:37 PM TRIMMER CLIMBER TROPONIN I HIGH-SENSITIVITY 6-HOUR Timed 02/25/2024 7:37 PM TRIMMER CLIMBER PHOSPHORUS Routine 02/25/2024 7:37 PM TRIMMER CLIMBER MAGNESIUM Routine 02/25/2024 7:37 PM TRIMMER CLIMBER CALCIUM, IONIZED Routine 02/25/2024 7:37 PM TRIMMER CLIMBER CBC WITHOUT DIFFERENTIAL Routine 02/25/2024 7:37 PM TRIMMER CLIMBER POC BLOOD GAS AND CHEMISTRIES, VENOUS Routine 02/25/2024 7:17 PM TRIMMER CLIMBER POCT GLUCOSE DEVICE Routine 02/25/2024 5 :28 PM TRIMMER CLIMBER WV INSJ NON-TUNNELED CENTRAL VENOUS CATH AGE 3 YR/> Routine 02/25/2024 5:21 PM TRIMMER CLIMBER Renal insufficiency TROPONIN I HIGH-SENSITIVITY 2-HOUR Timed 02/25/2024 4:43 PM TRIMMER CLIMBER ECG 12-LEAD STAT 02/25/2024 4:04 PM TRIMMER CLIMBER POCT GLUCOSE DEVICE Routine 02/25/2024 3 :07 PM TRIMMER CLIMBER CRITICAL CARE Routine 02/25/2024 3:02 PM TRIMMER CLIMBER Acute hypoxemic respiratory failure (HCC) TROPONIN I HIGH-SENSITIVITY SERIES (BASELINE, 2HR, 4HR, 6HR) STAT 02/25/2024 2:55 PM TRIMMER CLIMBER RESPIRATORY PATHOGEN PANEL Routine 02/25/2024 2:55 PM TRIMMER CLIMBER WV ARTL CATHJ/CANNULJ MNTR/TRANSFUSION SPX PRQ Routine 02/25/2024 12:00 PM TRIMMER CLIMBER Acute respiratory failure with hypoxia (HCC) POCT GLUCOSE DEVICE Routine 02/25/2024 11:06 AM TRIMMER CLIMBER LIPID PANEL STAT 02/25/2024 11:05 AM TRIMMER CLIMBER EGFR STAT 02/25/2024 11:05 AM TRIMMER CLIMBER T4, FREE STAT 02/25/2024 11:05 AM TRIMMER CLIMBER APTT STAT 02/25/2024 11:05 AM TRIMMER CLIMBER LACTATE STAT 02/25/2024 11:05 AM TRIMMER CLIMBER MAGNESIUM STAT 02/25/2024 11:05 AM TRIMMER CLIMBER PHOSPHORUS STAT 02/25/2024 11:05 AM TRIMMER CLIMBER PRO B-TYPE NATRIURETIC PEPTIDE STAT 02/25/2024 11:05 AM TRIMMER CLIMBER PROTIME-INR STAT 02/25/2024 11:05 AM TRIMMER CLIMBER THYROID FUNCTION CASCADE STAT 02/25/2024 11:05 AM TRIMMER CLIMBER COMPREHENSIVE METABOLIC PANEL STAT 02/25/2024 11:05 AM TRIMMER CLIMBER CBC WITHOUT DIFFERENTIAL STAT 02/25/2024 11:05 AM TRIMMER CLIMBER CALCIUM, IONIZED STAT 02/25/2024 11:05 AM TRIMMER CLIMBER BLOOD GAS, ARTERIAL STAT 02/25/2024 11:05 AM TRIMMER CLIMBER BETA-HYDROXYBUTYRATE STAT 02/25/2024 11:05 AM TRIMMER CLIMBER BLOOD CULTURE STAT 02/25/2024 11:05 AM TRIMMER CLIMBER BLOOD CULTURE STAT 02/25/2024 11:05 AM TRIMMER CLIMBER POCT GLUCOSE DEVICE Routine 02/25/2024 8 :23 AM TRIMMER CLIMBER ARTERIAL BLOOD GAS W/LACTATE Routine 02/25/2024 7:54 AM TRIMMER CLIMBER XR CHEST 1 VIEW ED Urgent/IP Urgent 02/25/2024 7:34 AM TRIMMER CLIMBER EGFR Routine 02/25/2024 4:49 AM TRIMMER CLIMBER HEMOGLOBIN AND HEMATOCRIT Routine 02/25/2024 4:49 AM TRIMMER CLIMBER BASIC METABOLIC PANEL Routine 02/25/2024 4:49 AM TRIMMER CLIMBER EGFR STAT 02/24/2024 9:26 PM TRIMMER CLIMBER HEMOGLOBIN AND HEMATOCRIT STAT 02/24/2024 9:26 PM TRIMMER CLIMBER BASIC METABOLIC PANEL STAT 02/24/2024 9:26 PM TRIMMER CLIMBER POCT GLUCOSE DEVICE Routine 02/24/2024 9 :17 PM TRIMMER CLIMBER POCT GLUCOSE DEVICE Routine 02/24/2024 5 :15 PM TRIMMER CLIMBER POCT GLUCOSE DEVICE Routine 02/24/2024 12:22 PM TRIMMER CLIMBER POCT GLUCOSE DEVICE Routine 02/24/2024 9 :55 AM TRIMMER CLIMBER EGFR Timed 02/23/2024 11:18 PM TRIMMER CLIMBER BASIC METABOLIC PANEL Timed 02/23/2024 11:18 PM TRIMMER CLIMBER HEMOGLOBIN AND HEMATOCRIT Timed 02/23/2024 11:18 PM TRIMMER CLIMBER POCT GLUCOSE DEVICE Routine 02/23/2024 9 :15 PM TRIMMER CLIMBER XR SHOULDER RIGHT 2 OR MORE VIEWS IP Routine 02/23/2024 6:49 PM TRIMMER CLIMBER WV AN PROCEDURE PLACEHOLDER Routine 02/23/2024 5:45 PM TRIMMER CLIMBER WV AN PROCEDURE PLACEHOLDER Routine 02/23/2024 3:57 PM TRIMMER CLIMBER WV AN PROCEDURE PLACEHOLDER Routine 02/23/2024 3:37 PM TRIMMER CLIMBER WV AN ELECTIVE ENDOTRACHEAL AIRWAY Routine 02/23/2024 3:37 PM TRIMMER CLIMBER WV AN PROCEDURE PLACEHOLDER Routine 02/23/2024 2:49 PM TRIMMER CLIMBER WV AN PROCEDURE PLACEHOLDER Routine 02/23/2024 2:45 PM TRIMMER CLIMBER BW IP ANE LDA PERIPHERAL NERVE CATHETER Routine 02/23/2024 2:45 PM TRIMMER CLIMBER ARTHROPLASTY SHOULDER - REVERSE TOTAL 02/23/2024 2:44 PM TRIMMER CLIMBER Closed dislocation of right shoulder, initial encounter Fracture of humeral head, closed, right, with routine healing, subsequent encounter Special Needs Beach Chair with Trimano (patient is >350lbs), Tornier Perform with Fracture Stem Back-up, Ice Machine, Breg Sling Shot with Pillow B CHECK SAMPLE STAT 02/23/2024 12:52 PM TRIMMER CLIMBER EGFR Routine 02/15/2024 9:06 AM TRIMMER CLIMBER Closed dislocation of right shoulder, initial encounter Fracture of humeral head, closed, right, with routine healing, subsequent encounter TYPE AND SCREEN 14 DAY Routine 9:06 AM TRIMMER CLIMBER Preoperative testing VITAMIN D 25 HYDROXY Routine 02/15/2024 9:06 AM TRIMMER CLIMBER Closed dislocation of right shoulder, initial encounter Fracture of humeral head, closed, right, with routine healing, subsequent encounter COMPREHENSIVE METABOLIC PANEL Routine 02/15/2024 9:06 AM TRIMMER CLIMBER Closed dislocation of right shoulder, initial encounter Fracture of humeral head, closed, right, with routine healing, subsequent encounter CBC WITHOUT DIFFERENTIAL Routine 02/15/2024 9:06 AM TRIMMER CLIMBER Preoperative testing ECG 12-LEAD Routine 02/15/2024 8:38 AM TRIMMER CLIMBER Preoperative testing HM MAMMOGRAPHY Routine 01/16/2021 from Last 3 Months or Most Recently Relevant to Health Maintenance Results * Electrocardiogram Report (04/29/2024 3:06 PM TRIMMER CLIMBER) us Karie Rodríguez MD ECG ORDERABLES Nicole l Result * SCAN - LABS (04/29/2024 1:59 PM TRIMMER CLIMBER) us Historical Provider Final Res ult * POCT lipid panel (04/29/2024 12:42 PM TRIMMER CLIMBER) HDL, POC 60 mg/dL Triglycerides, POC 452 mg/dL LDL Cholesterol POC 60 mg/dL Chol/HDL Ratio, POC 52.6 Non-HDL Cholesterol, POC 143 mg/dL Cholesterol Total, POC 203 mg/dL Capillary blood 04/29/2024 1 2:42 PM TRIMMER CLIMBER Karie Rodríguez MD POINT OF CARE TEST O RDERABLES Final Result * eGFR (04/08/2024 2:35 AM TRIMMER CLIMBER) eGFR >90 >=60 mL/min/1. 73 m2 Comment: [...] last reviewed 2021. Blood 04/08/2024 2:35 AM TRIMMER CLIMBER 04/08/2024 3:03 AM TRIMMER CLIMBER Florentino Jeronimo NP LAB BLOOD ORDERABLES Fin al Result [place] [address] [facility] Department of Laboratories [place], [place] [id number] * Magnesium (04/08/2024 2:35 AM TRIMMER CLIMBER) Pathologist [facility] Magnesium 1.6 1.4 - 2.5 mg/dL Blood 04/08/2024 2:35 AM TRIMMER CLIMBER 04/08/2024 3:03 AM TRIMMER CLIMBER Chaitanya Robertson MD LAB BLOOD ORDERABLES Final Result Performing Organization Address City/[facility] Co de Phone Number [address] [place] [address] * (ABNORMAL) Basic metabolic panel (04/08/2024 2:35 AM TRIMMER CLIMBER) Pathologist [facility] Sodium 137 135 - 145 mmol/L Potassium, pl 4.1 3.3 - 4.9 mmol/L [facility] Chloride 100 97 - 110 mmol/L [facility] CO2 30 22 - 32 mmol/L [facility] Anion gap 7 2 - 15 mmol/L [facility] BUN 11 6 - 25 mg/dL [facility] Creatinine 0.58(L) 0.60 - 1.10 mg/dL [facility] Glucose 83 70 - 199 mg/dL [facility] Comment: Interpretive Data Fasting glucose >/= 126 [...] 2022. Calcium 8.6 8.5 - 10.3 mg/dL [facility] Blood 04/08/2024 2:35 AM TRIMMER CLIMBER 04/08/2024 3:03 AM TRIMMER CLIMBER Florentino Jeronimo NP LAB BLOOD ORDERABLES Fin al Result Performing Organization Address City/[facility]/ZIP Co de Phone Number [address] Department [place] [address] * eGFR (04/07/2024 2:59 AM TRIMMER CLIMBER) Pathologist [facility] eGFR >90 >=60 mL/min/1. 73 m2 Comment: [...] last reviewed 2021. Blood 04/07/2024 2:59 AM TRIMMER CLIMBER 04/07/2024 3:37 AM TRIMMER CLIMBER us Florentino Meena Jeronimo GOVERNMENT TEACHER LAB BLOOD ORDERABLES Fin al Result [facility] [address] [facility] Department [place] [address] * (ABNORMAL) Basic metabolic panel (04/07/2024 2:59 AM TRIMMER CLIMBER) [facility] Sodium 137 135 - 145 mmol/L Potassium, pl 3.6 3.3 - 4.9 mmol/L [facility] Chloride 102 97 - 110 mmol/L [facility] CO2 28 22 - 32 mmol/L [facility] Anion gap 7 2 - 15 mmol/L [facility] BUN 10 6 - 25 mg/dL [facility] Creatinine 0.56(L) 0.60 - 1.10 mg/dL [facility] Glucose 93 70 - 199 mg/dL [facility] Comment: Interpretive Data Fasting glucose >/= 126 [...] 2022. Calcium 8.5 8.5 - 10.3 mg/dL [facility] Blood 04/07/2024 2:59 AM TRIMMER CLIMBER 04/07/2024 3:37 AM TRIMMER CLIMBER Florentino Jeronimo NP LAB BLOOD ORDERABLES Fin al Result Performing Organization Address [facility] Co de Phone Number [address] [place] [address] * Sodium level (04/06/2024 11:34 AM TRIMMER CLIMBER) Sodium 138 135 - 145 mmol/L Blood 04/06/2024 11:3 4 AM TRIMMER CLIMBER 04/06/2024 11:53 AM TRIMMER CLIMBER Yadira Aurora Cancino MD LAB BLOOD ORDERABLES Nicole l Result Performing Organization Address [facility] Co de Phone Number [address] [address] * eGFR (04/06/2024 4:02 AM TRIMMER CLIMBER) eGFR >90 >=60 mL/min/1. 73 m2 Comment: [...] last reviewed 2021. Blood 04/06/2024 4:02 AM TRIMMER CLIMBER 04/06/2024 4:15 AM TRIMMER CLIMBER us Florentino Meena Jeronimo GOVERNMENT TEACHER LAB BLOOD ORDERABLES Fin al Result [place] [facility] Department [place] [address] * Differential, auto (04/06/2024 4:02 AM TRIMMER CLIMBER) Neutrophil abs 2.8 1.5 - 6.5 K/cumm Imm gran abs 0.0 0.0 - 0.1 K/cumm [facility] Lymphocyte abs 1.8 0.8 - 3.3 K/cumm [facility] Monocyte abs 0.6 0.2 - 0.8 K/cumm [facility] Eosinophil abs 0.1 0.0 - 0.5 K/cumm [facility] Basophil abs 0.0 0.0 - 0.1 K/cumm [facility] Neutrophil pct 52.1 % [facility] Comment: Interpretive Data Percent cell count reference ranges are not reported, since discordance with absolute values may lead to misinterpretation of CBC data. Current Interpretive Data was last revised on 2017. Imm gran pct 0.6 % [facility] Comment: Interpretive Data Percent cell count reference ranges are not reported, since discordance with absolute values may lead to misinterpretation of CBC data. Current Interpretive Data was last revised on 2017. Lymphocyte pct 34.7 % [facility] Comment: Interpretive Data Percent cell count reference ranges are not reported, since discordance with absolute values may lead to misinterpretation of CBC data. Current Interpretive Data was last revised on 2017. Monocyte pct 10.9 % [facility] Comment: Interpretive Data Percent cell count reference ranges are not reported, since discordance with absolute values may lead to misinterpretation of CBC data. Current Interpretive Data was last revised on 2017. Eosinophil pct 1.1 % [facility] Comment: Interpretive Data Percent cell count reference ranges are not reported, since discordance with absolute values may lead to misinterpretation of CBC data. Current Interpretive Data was last revised on 2017. Basophil pct 0.6 % [facility] Comment: Interpretive Data Percent cell count reference ranges are not reported, since discordance with absolute values may lead to misinterpretation of CBC data. Current Interpretive Data was last revised on 2017. Blood 04/06/2024 4:02 AM TRIMMER CLIMBER 04/06/2024 4:15 AM TRIMMER CLIMBER us Savage Rutherford MD LAB BLOOD ORDERABLES Final R esult [place] [address] [facility] Department [place] [address] * (ABNORMAL) CBC with auto differential (04/06/2024 4:02 AM TRIMMER CLIMBER) WBC 5.3 3.8 - 9.9 K/cumm Hgb 8.2(L) 11.9 - 15.5 g/dL [facility] Hct 26.6(L) 35.6 - 45.5 % [facility] Plt 283 150 - 400 K/cumm [facility] MPV 9.1 9.1 - 12.3 fL [facility] RBC 2.55(L) 3.90 - 5.20 M/cumm [facility] MCV 104.3(H) 81.3 - 96.4 fL [facility] MCH 32.2 27.1 - 33.3 pg [facility] MCHC 30.8(L) 32.3 - 35.7 g/dL [facility] RDW CV 15.0(H) 11.1 - 14.9 % [facility] RDW SD 57.8(H) 35.7 - 48.1 fL [facility] NRBC abs 0.00 0.00 - 0.01 K/cumm [facility] Blood 04/06/2024 4:02 AM TRIMMER CLIMBER 04/06/2024 4:15 AM TRIMMER CLIMBER Savage Rutherford MD LAB BLOOD ORDERABLES Final R esult Performing Organization Address [facility] Co de Phone Number [place] [id number] [facility] [place] [address] * (ABNORMAL) Basic metabolic panel (04/06/2024 4:02 AM TRIMMER CLIMBER) Pathologist [facility] Sodium 132(L) 135 - 145 mmol/L Potassium, pl 3.5 3.3 - 4.9 mmol/L [facility] Chloride 99 97 - 110 mmol/L [facility] CO2 26 22 - 32 mmol/L [facility] Anion gap 7 2 - 15 mmol/L [facility] BUN 9 6 - 25 mg/dL [facility] Creatinine 0.54(L) 0.60 - 1.10 mg/dL [facility] Glucose 100 70 - 199 mg/dL [facility] Comment: Interpretive Data Fasting glucose >/= 126 [...] 2022. Calcium 8.2(L) 8.5 - 10.3 mg/dL [facility] Blood 04/06/2024 4:02 AM TRIMMER CLIMBER 04/06/2024 4:15 AM TRIMMER CLIMBER Florentino Jeronimo NP LAB BLOOD ORDERABLES Fin al Result Performing Organization Address [facility]/ZIP Co de Phone Number [address] [place] [address] * eGFR (04/05/2024 4:59 AM TRIMMER CLIMBER) Pathologist [facility] eGFR >90 >=60 mL/min/1. 73 m2 Comment: [...] last reviewed 2021. Blood 04/05/2024 4:59 AM TRIMMER CLIMBER 04/05/2024 5:30 AM TRIMMER CLIMBER us Florentino Meena Jeronimo NP LAB BLOOD ORDERABLES Fin al Result [place] [address] [facility] Department [place] [address] * Differential, auto (04/05/2024 4:59 AM TRIMMER CLIMBER) Pathologist [facility] Neutrophil abs 3.9 1.5 - 6.5 K/cumm Imm gran abs 0.0 0.0 - 0.1 K/cumm [facility] Lymphocyte abs 1.7 0.8 - 3.3 K/cumm [facility] Monocyte abs 0.6 0.2 - 0.8 K/cumm [facility] Eosinophil abs 0.1 0.0 - 0.5 K/cumm [facility] Basophil abs 0.0 0.0 - 0.1 K/cumm [facility] Neutrophil pct 61.8 % [facility] Comment: Interpretive Data Percent cell count reference ranges are not reported, since discordance with absolute values may lead to misinterpretation of CBC data. Current Interpretive Data was last revised on 2017. Imm gran pct 0.6 % [facility] Comment: Interpretive Data Percent cell count reference ranges are not reported, since discordance with absolute values may lead to misinterpretation of CBC data. Current Interpretive Data was last revised on 2017. Lymphocyte pct 26.9 % [facility] Comment: Interpretive Data Percent cell count reference ranges are not reported, since discordance with absolute values may lead to misinterpretation of CBC data. Current Interpretive Data was last revised on 2017. Monocyte pct 9.4 % [facility] Comment: Interpretive Data Percent cell count reference ranges are not reported, since discordance with absolute values may lead to misinterpretation of CBC data. Current Interpretive Data was last revised on 2017. Eosinophil pct 0.8 % [facility] Comment: Interpretive Data Percent cell count reference ranges are not reported, since discordance with absolute values may lead to misinterpretation of CBC data. Current Interpretive Data was last revised on 2017. Basophil pct 0.5 % [facility] Comment: Interpretive Data Percent cell count reference ranges are not reported, since discordance with absolute values may lead to misinterpretation of CBC data. Current Interpretive Data was last revised on 2017. Blood 04/05/2024 4:59 AM TRIMMER CLIMBER 04/05/2024 5:30 AM TRIMMER CLIMBER us Savage Rutherford MD LAB BLOOD ORDERABLES Final R esult [facility] [address] [facility] Department [place] [address] * (ABNORMAL) CBC with auto differential (04/05/2024 4:59 AM TRIMMER CLIMBER) WBC 6.3 3.8 - 9.9 K/cumm Hgb 8.3(L) 11.9 - 15.5 g/dL [facility] Hct 26.6(L) 35.6 - 45.5 % [facility] Plt 287 150 - 400 K/cumm [facility] MPV 9.1 9.1 - 12.3 fL [facility] RBC 2.53(L) 3.90 - 5.20 M/cumm [facility] MCV 105.1(H) 81.3 - 96.4 fL [facility] MCH 32.8 27.1 - 33.3 pg [facility] MCHC 31.2(L) 32.3 - 35.7 g/dL [facility] RDW CV 14.9 11.1 - 14.9 % [facility] RDW SD 57.0(H) 35.7 - 48.1 fL [facility] NRBC abs 0.00 0.00 - 0.01 K/cumm [facility] Blood 04/05/2024 4:59 AM TRIMMER CLIMBER 04/05/2024 5:30 AM TRIMMER CLIMBER us Savage Rutherford MD LAB BLOOD ORDERABLES Final R esult [facility] [address] [facility] Department of Laboratories [place], [place] [id number] * (ABNORMAL) Basic metabolic panel (04/05/2024 4:59 AM TRIMMER CLIMBER) Sodium 137 135 - 145 mmol/L Potassium, pl 3.3 3.3 - 4.9 mmol/L [facility] Chloride 103 97 - 110 mmol/L [facility] CO2 25 22 - 32 mmol/L [facility] Anion gap 9 2 - 15 mmol/L [facility] BUN 10 6 - 25 mg/dL [facility] Creatinine 0.52(L) 0.60 - 1.10 mg/dL [facility] Glucose 118 70 - 199 mg/dL [facility] Comment: Interpretive Data Fasting glucose >/= 126 [...] 2022. Calcium 8.7 8.5 - 10.3 mg/dL [facility] Blood 04/05/2024 4:59 AM TRIMMER CLIMBER 04/05/2024 5:30 AM TRIMMER CLIMBER [facility] [employer] GOVERNMENT TEACHER LAB BLOOD ORDERABLES Fin al Result Performing Organization Address City/[facility] Co de Phone Number [address] [address] * (ABNORMAL) Vancomycin level trough (04/04/2024 11:04 AM TRIMMER CLIMBER) Vancomycin trough 22.5(H) 10.0 - 20.0 mcg/mL Blood 04/04/2024 11:0 4 AM TRIMMER CLIMBER 04/04/2024 11:10 AM TRIMMER CLIMBER [facility] [employer] [facility] GOVERNMENT TEACHER LAB BLOOD ORDERABLES Fin al Result Performing Organization Address [facility] de Phone Number [address] [address] * eGFR (04/04/2024 2:48 AM TRIMMER CLIMBER) eGFR >90 >=60 mL/min/1. 73 m2 Comment: [...] last reviewed 2021. Blood 04/04/2024 2:48 AM TRIMMER CLIMBER 04/04/2024 3:26 AM TRIMMER CLIMBER us Savage Rutherford MD LAB BLOOD ORDERABLES Final R esult [place] [address] [facility] Department [place] [address] * Differential, auto (04/04/2024 2:48 AM TRIMMER CLIMBER) Neutrophil abs 4.0 1.5 - 6.5 K/cumm Imm gran abs 0.1 0.0 - 0.1 K/cumm [facility] Lymphocyte abs 2.2 0.8 - 3.3 K/cumm [facility] Monocyte abs 0.8 0.2 - 0.8 K/cumm [facility] Eosinophil abs 0.1 0.0 - 0.5 K/cumm [facility] Basophil abs 0.0 0.0 - 0.1 K/cumm [facility] Neutrophil pct 56.5 % [facility] Comment: Interpretive Data Percent cell count reference ranges are not reported, since discordance with absolute values may lead to misinterpretation of CBC data. Current Interpretive Data was last revised on 2017. Imm gran pct 1.0 % [facility] Comment: Interpretive Data Percent cell count reference ranges are not reported, since discordance with absolute values may lead to misinterpretation of CBC data. Current Interpretive Data was last revised on 2017. Lymphocyte pct 30.7 % [facility] Comment: Interpretive Data Percent cell count reference ranges are not reported, since discordance with absolute values may lead to misinterpretation of CBC data. Current Interpretive Data was last revised on 2017. Monocyte pct 10.6 % [facility] Comment: Interpretive Data Percent cell count reference ranges are not reported, since discordance with absolute values may lead to misinterpretation of CBC data. Current Interpretive Data was last revised on 2017. Eosinophil pct 0.8 % [facility] Comment: Interpretive Data Percent cell count reference ranges are not reported, since discordance with absolute values may lead to misinterpretation of CBC data. Current Interpretive Data was last revised on 2017. Basophil pct 0.4 % [facility] Comment: Interpretive Data Percent cell count reference ranges are not reported, since discordance with absolute values may lead to misinterpretation of CBC data. Current Interpretive Data was last revised on 2017. Blood 04/04/2024 2:48 AM TRIMMER CLIMBER 04/04/2024 3:26 AM TRIMMER CLIMBER Chaitanya Robertson MD LAB BLOOD ORDERABLES Final Result Performing Organization Address [facility] de Phone Number [facility] [address] [place] [address] * (ABNORMAL) CBC with auto differential (04/04/2024 2:48 AM TRIMMER CLIMBER) Pathologist [facility] WBC 7.1 3.8 - 9.9 K/cumm Hgb 8.0(L) 11.9 - 15.5 g/dL [facility] Hct 25.4(L) 35.6 - 45.5 % [facility] Plt 287 150 - 400 K/cumm [facility] MPV 9.2 9.1 - 12.3 fL [facility] RBC 2.44(L) 3.90 - 5.20 M/cumm [facility] MCV 104.1(H) 81.3 - 96.4 fL [facility] MCH 32.8 27.1 - 33.3 pg [facility] MCHC 31.5(L) 32.3 - 35.7 g/dL [facility] RDW CV 14.7 11.1 - 14.9 % [facility] RDW SD 55.8(H) 35.7 - 48.1 fL [facility] NRBC abs 0.00 0.00 - 0.01 K/cumm [facility] Blood 04/04/2024 2:48 AM TRIMMER CLIMBER 04/04/2024 3:26 AM TRIMMER CLIMBER Chaitanya Robertson MD LAB BLOOD ORDERABLES Final Result Performing Organization Address [facility] Co de Phone Number MADELEINE [address] [place] [address] * (ABNORMAL) Comprehensive metabolic panel (04/04/2024 2:48 AM TRIMMER CLIMBER) Pathologist [facility] Sodium 137 135 - 145 mmol/L Potassium, pl 3.4 3.3 - 4.9 mmol/L [facility] Chloride 104 97 - 110 mmol/L [facility] CO2 23 22 - 32 mmol/L [facility] Anion gap 10 2 - 15 mmol/L [facility] BUN 15 6 - 25 mg/dL [facility] Creatinine 0.61 0.60 - 1.10 mg/dL [facility] Glucose 113 70 - 199 mg/dL [facility] Comment: Interpretive Data Fasting glucose >/= 126 [...] 2022. Calcium 8.4(L) 8.5 - 10.3 mg/dL [facility] Bilirubin, total 0.5 0.1 - 1.2 mg/dL [facility] Protein, pl 5.9(L) 6.5 - 8.5 g/dL [facility] Albumin 2.5(L) 3.5 - 5.0 g/dL [facility] Alk phos 241(H) 40 - 130 Units/L [facility] ALT 12 7 - 45 Units/L [facility] AST 23 10 - 45 Units/L [facility] Blood 04/04/2024 2:48 AM TRIMMER CLIMBER 04/04/2024 3:26 AM TRIMMER CLIMBER us Savage Rutherford MD LAB BLOOD ORDERABLES Final R esult MADELEINE [address] [facility] [place] [address] * POCT glucose (04/03/2024 4:41 PM TRIMMER CLIMBER) Pathologist [facility] Glucose, POC 154 70 - 199 mg/dL Glucose comment 1 Use This Result MADELEINE EDUARDO Glucose comment 2 RN/MD Notified MADELEINE Blood 04/03/2024 4:41 PM TRIMMER CLIMBER 04/03/2024 4:41 PM TRIMMER CLIMBER us Chaitanya Robertson MD LAB POCT ORDERABLES - DEVIC E Final Result MADELEINE EDUARDO [address] [facility] [place] [address] * US Vein Duplex Lower Extremity Bilateral Complete (04/03/2024 10:00 AM TRIMMER CLIMBER) Anatomical Region Laterality Modality Vascular Bilateral Ultrasound 04/03/2024 Narrative 04/04/2024 11:20 AM TRIMMER CLIMBER Wikia Job ID: [id number] Wikia Document ID: [id number] Dictated date/time: [id number] LOWER EXTREMITY VENOUS DUPLEX REASON FOR EXAM [...] right lower extremity. Job ID/Internal Job ID: [id number] us Bing French MD [facility] US PROCEDURES Nicole l Result * Lactate (04/03/2024 7:19 AM TRIMMER CLIMBER) Lactate 1.2 0.7 - 2.0 mmol/L Blood 04/03/2024 7:19 AM TRIMMER CLIMBER 04/03/2024 7:26 AM TRIMMER CLIMBER [facility] Meena Jeronimo GOVERNMENT TEACHER LAB BLOOD ORDERABLES Fin al Result Performing Organization Address City/[facility]/ZIP Co de Phone Number MADELEINE [address] [place] [address] * eGFR (04/03/2024 7:19 AM TRIMMER CLIMBER) eGFR >90 >=60 mL/min/1. 73 m2 Comment: [...] last reviewed 2021. Blood 04/03/2024 7:19 AM TRIMMER CLIMBER 04/03/2024 7:23 AM TRIMMER CLIMBER [facility] Meena Jeronimo GOVERNMENT TEACHER LAB BLOOD ORDERABLES Fin al Result Performing Organization Address City/[facility]/ZIP Co de Phone Number MADELEINE [address] [place] [address] * Differential, auto (04/03/2024 7:19 AM TRIMMER CLIMBER) Neutrophil abs 5.1 1.5 - 6.5 K/cumm Imm gran abs 0.1 0.0 - 0.1 K/cumm [facility] Lymphocyte abs 1.8 0.8 - 3.3 K[facility] Monocyte abs 0.8 0.2 - 0.8 K/cumm [facility] Eosinophil abs 0.1 0.0 - 0.5 K/cumm [facility] Basophil abs 0.0 0.0 - 0.1 K/cumm [facility] Neutrophil pct 64.7 % [facility] Comment: Interpretive Data Percent cell count reference ranges are not reported, since discordance with absolute values may lead to misinterpretation of CBC data. Current Interpretive Data was last revised on 2017. Imm gran pct 1.1 % [facility] Comment: Interpretive Data Percent cell count reference ranges are not reported, since discordance with absolute values may lead to misinterpretation of CBC data. Current Interpretive Data was last revised on 2017. Lymphocyte pct 22.4 % [facility] Comment: Interpretive Data Percent cell count reference ranges are not reported, since discordance with absolute values may lead to misinterpretation of CBC data. Current Interpretive Data was last revised on 2017. Monocyte pct 10.5 % [facility] Comment: Interpretive Data Percent cell count reference ranges are not reported, since discordance with absolute values may lead to misinterpretation of CBC data. Current Interpretive Data was last revised on 2017. Eosinophil pct 0.8 % [facility] Comment: Interpretive Data Percent cell count reference ranges are not reported, since discordance with absolute values may lead to misinterpretation of CBC data. Current Interpretive Data was last revised on 2017. Basophil pct 0.5 % [facility] Comment: Interpretive Data Percent cell count reference ranges are not reported, since discordance with absolute values may lead to misinterpretation of CBC data. Current Interpretive Data was last revised on 2017. Blood 04/03/2024 7:19 AM TRIMMER CLIMBER 04/03/2024 7:23 AM TRIMMER CLIMBER us Florentino Meena Jeronimo GOVERNMENT TEACHER LAB BLOOD ORDERABLES Fin al Result MADELEINE [address] [facility] [place] [address] * (ABNORMAL) Pro B-type natriuretic peptide (04/03/2024 7:19 AM TRIMMER CLIMBER) NT-proBNP 1,491(H) <=300 pg/mL Comment: Interpretive Comments: [...] Revised Date: 2017. Blood 04/03/2024 7:19 AM TRIMMER CLIMBER 04/03/2024 7:23 AM TRIMMER CLIMBER us Florentino Meena Jeronimo NP LAB BLOOD ORDERABLES Fin al Result KATEGJU [address] [facility] [place] [address] * (ABNORMAL) Thyroid Function Mathews (04/03/2024 7:19 AM TRIMMER CLIMBER) TSH 4.62(H) 0.30 - 4.20 mcIUnit/mL Blood 04/03/2024 7:19 AM TRIMMER CLIMBER 04/03/2024 7:23 AM TRIMMER CLIMBER Florentino Vyatta GOVERNMENT TEACHER LAB BLOOD ORDERABLES Fin al Result Performing Organization Address City/[facility] Co de Phone Number [address] [address] * (ABNORMAL) Iron profile w/ IBC (04/03/2024 7:19 AM TRIMMER CLIMBER) [facility] Iron 36 35 - 145 mcg/dL TIBC 179(L) 250 - 400 mcg/dL [facility] Transferrin saturation 20 20 - 50 % [facility] Blood 04/03/2024 7:19 AM TRIMMER CLIMBER 04/03/2024 7:23 AM TRIMMER CLIMBER Florentino Vyatta GOVERNMENT TEACHER LAB BLOOD ORDERABLES Fin al Result Performing Organization Address [facility] de Phone Number [address] [address] * (ABNORMAL) CBC with auto differential (04/03/2024 7:19 AM TRIMMER CLIMBER) [facility] WBC 7.9 3.8 - 9.9 K/cumm Hgb 8.4(L) 11.9 - 15.5 g/dL [facility] Hct 26.5(L) 35.6 - 45.5 % [facility] Plt 281 150 - 400 K/cumm [facility] MPV 9.4 9.1 - 12.3 fL [facility] RBC 2.53(L) 3.90 - 5.20 M/cumm [facility] MCV 104.7(H) 81.3 - 96.4 fL [facility] MCH 33.2 27.1 - 33.3 pg [facility] MCHC 31.7(L) 32.3 - 35.7 g/dL [facility] RDW CV 14.5 11.1 - 14.9 % [facility] RDW SD 55.3(H) 35.7 - 48.1 fL [facility] NRBC abs 0.00 0.00 - 0.01 K/cumm [facility] Blood 04/03/2024 7:19 AM TRIMMER CLIMBER 04/03/2024 7:23 AM TRIMMER CLIMBER [facility] GOVERNMENT TEACHER LAB BLOOD ORDERABLES Fin al Result Performing Organization Address [facility] Co de Phone Number MADELEINE [address] [address] * (ABNORMAL) Erythrocyte sedimentation rate (04/03/2024 7:19 AM TRIMMER CLIMBER) [facility] Erythrocyte sedimentation rate 60(H) 1 - 30 mm/hr Comment:Testing performed by : [facility], [address] [place] [address], [place]., [address] Blood 04/03/2024 7:19 AM TRIMMER CLIMBER 04/03/2024 7:23 AM TRIMMER CLIMBER [facility] Meena [facility] LAB BLOOD ORDERABLES Fin al Result Performing Organization Address [facility] Co de Phone Number KATE[address] [place] [address] * (ABNORMAL) CRP (acute phase) (04/03/2024 7:19 AM TRIMMER CLIMBER) [facility] CRP 203.0(H) <=10.0 mg/L Blood 04/03/2024 7:19 AM TRIMMER CLIMBER 04/03/2024 7:23 AM TRIMMER CLIMBER [facility] Tab[facility] GOVERNMENT TEACHER LAB BLOOD ORDERABLES Fin al Result Performing Organization Address [facility] de Phone Number KATE[address] [place] [address] * T4, free (04/03/2024 7:19 AM TRIMMER CLIMBER) [facility] Free T4 0.92 0.90 - 1.70 ng/dL Blood 04/03/2024 7:19 AM TRIMMER CLIMBER 04/03/2024 7:23 AM TRIMMER CLIMBER Narrative [facility] - 04/03/2024 9:03 AM TRIMMER CLIMBER This test was reflexed from a TSH result. [facility] GOVERNMENT TEACHER LAB BLOOD ORDERABLES Fin al Result Performing Organization Address [facility] de Phone Number MADELEINE [address] [address] * Phosphorus (04/03/2024 7:19 AM TRIMMER CLIMBER) Phosphorus, pl 4.3 2.3 - 4.5 mg/dL Blood 04/03/2024 7:19 AM TRIMMER CLIMBER 04/03/2024 7:23 AM TRIMMER CLIMBER [facility] [employer] [facility] GOVERNMENT TEACHER LAB BLOOD ORDERABLES Fin al Result Performing Organization Address [facility] Phone Number [address] [address] * Magnesium (04/03/2024 7:19 AM TRIMMER CLIMBER) Pathologist [facility] Magnesium 1.4 1.4 - 2.5 mg/dL Blood 04/03/2024 7:19 AM TRIMMER CLIMBER 04/03/2024 7:23 AM TRIMMER CLIMBER [facility] LAB BLOOD ORDERABLES Fin al Result Performing Organization Address [facility] Phone Number [address] [address] * (ABNORMAL) Hemoglobin A1c (04/03/2024 7:19 AM TRIMMER CLIMBER) Hgb A1C 5.9(H) 4.0 - 5.6 % Estimated Average Glucose 123 mg/dL [facility] Comment: The ADA recommends reporting an estimated Average Glucose (eAG) with all Hemoglobin A1c results using the equation derived from a study of 507 normal and diabetic adults. Minority populations were underrepresented and children were not included. (Diabetes Care 31:1950-9565, 2008). The eAG is not equivalent to a fasting glucose. Blood 04/03/2024 7:19 AM TRIMMER CLIMBER 04/03/2024 7:23 AM TRIMMER CLIMBER Florentino Tabernero Rufin GOVERNMENT TEACHER LAB BLOOD ORDERABLES Fin al Result MADELEINE [address] [place] [address] * Folate (04/03/2024 7:19 AM TRIMMER CLIMBER) Folic acid >20.0 >=5.0 ng/mL Blood 04/03/2024 7:19 AM TRIMMER CLIMBER 04/03/2024 7:23 AM TRIMMER CLIMBER Florentino Tabernero Rufin GOVERNMENT TEACHER LAB BLOOD ORDERABLES Fin al Result Performing Organization Address [facility] Co de Phone Number MADELEINE [address] [place] [address] * (ABNORMAL) Ferritin (04/03/2024 7:19 AM TRIMMER CLIMBER) Ferritin 275(H) 15 - 150 ng/mL Blood 04/03/2024 7:19 AM TRIMMER CLIMBER 04/03/2024 7:23 AM TRIMMER CLIMBER [facility] Tabernero Rufin GOVERNMENT TEACHER LAB BLOOD ORDERABLES Fin al Result Performing Organization Address [facility] Co de Phone Number KATE[address] [place] [address] * Vitamin B12 (04/03/2024 7:19 AM TRIMMER CLIMBER) Vitamin B12 850 230 - 1,250 pg/mL Blood 04/03/2024 7:19 AM TRIMMER CLIMBER 04/03/2024 7:23 AM TRIMMER CLIMBER Florentino Tabernero Rufin GOVERNMENT TEACHER LAB BLOOD ORDERABLES Fin al Result Performing Organization Address City/[facility]/ZIP Co de Phone Number KATE[address] [place] [address] * (ABNORMAL) Lipid panel (04/03/2024 7:19 AM TRIMMER CLIMBER) Cholesterol 121 30 - 199 mg/dL Comment: [...] last revised on 2017. Chol/HDL ratio 3 MADELEINE Blood 04/03/2024 7:19 AM TRIMMER CLIMBER 04/03/2024 7:23 AM TRIMMER CLIMBER us Florentino Taberekta Jeronimo GOVERNMENT TEACHER LAB BLOOD ORDERABLES Fin al Result MADELEINE EDUARDO [address] [facility] [place] [address] * Basic metabolic panel (04/03/2024 7:19 AM TRIMMER CLIMBER) Sodium 136 135 - 145 mmol/L Potassium, pl 3.6 3.3 - 4.9 mmol/L MADELEINE Chloride 104 97 - 110 mmol/L [facility] CO2 22 22 - 32 mmol/L [facility] Anion gap 10 2 - 15 mmol/L [facility] BUN 20 6 - 25 mg/dL [facility] Creatinine 0.65 0.60 - 1.10 mg/dL [facility] Glucose 102 70 - 199 mg/dL [facility] Comment: Interpretive Data Fasting glucose >/= 126 [...] 2022. Calcium 8.7 8.5 - 10.3 mg/dL [facility] Blood 04/03/2024 7:19 AM TRIMMER CLIMBER 04/03/2024 7:23 AM TRIMMER CLIMBER us Florentino Jeronimo GOVERNMENT TEACHER LAB BLOOD ORDERABLES Fin al Result Performing Organization Address City/[facility]/ZIP Co de Phone Number [address] [place] [address] * POCT glucose (04/03/2024 12:14 AM TRIMMER CLIMBER) Glucose, POC 87 70 - 199 mg/dL Blood 04/03/2024 12:1 4 AM TRIMMER CLIMBER 04/03/2024 12:14 AM TRIMMER CLIMBER Ky Andino MD LAB POCT ORDERABLES - DEVICE Final Result Performing Organization Address City/[facility] Co de Phone Number [address] [place] [address] * CT Entire Lower Extremity Left W WO Contrast (04/03/2024 12:08 AM TRIMMER CLIMBER) Anatomical Region Laterality Modality Lower Extremities Left Computed Tomog sheela 04/03/2024 12:1 4 AM TRIMMER CLIMBER Narrative 04/03/2024 12:19 AM TRIMMER CLIMBER EXAM DESCRIPTION: CT ENTIRE LOWER EXTREMITY LEFT [...] John Bright M.D. KH T: Report ID: [id number] Reading Location: [id number] Procedure Note John Bright MD - 04/03/2024 [...] by John Bright M.D. T: Report ID: [id number] Reading Location: [place] [address] Bing French MD IMG CT PROCEDURES Nicole l Result * Influenza A/B, RSV, and COVID-19 PCR Nasopharyngeal (04/02/2024 9:57 PM TRIMMER CLIMBER) COVID-19 RNA Negative Negative Influenza A RNA Negative Negative [facility] Influenza B RNA Negative Negative [facility] RSV RNA Negative Negative [facility] Comment: Interpretive data: Testing performed by [facility]. This test is performed using the [employer] Xpert Xpress CoV-2/Flu/RSV plus assay. This is a multiplex, real-time reverse transcriptase PCR assay intended for the qualitative detection of nucleic acid from SARS-CoV-2, influenza A, influenza B, and respiratory syncytial virus. This assay has been cleared by the [place] Food and Drug administration. The performance characteristics have been verified by the [facility]. Results must be considered in the clinical context, and a negative result does not rule out infection. Interpretive Data last revised 2023 Nasopharyngeal 04/02/2024 9: 57 PM TRIMMER CLIMBER 04/02/2024 10:05 PM TRIMMER CLIMBER Narrative [facility] - 04/02/2024 10:49 PM TRIMMER CLIMBER Is the Patient experiencing symptoms consistent with COVID?->Yes Bing French MD LAB MICROBIOLOGY - GEN ERAL ORDERABLES Final Result MADELEINE [address] [facility] [place] [address] * (ABNORMAL) Aerobic and anaerobic culture and gram stain Wound Thigh, left (04/02/2024 9:57 PM TRIMMER CLIMBER) Direct Specimen Exam Stain: Moderate polymorphonuclear leukocytes seen. Moderate Gram Negative Bacilli Comment:Testing performed by : [facility], [address] [place]., [address] Report Final Report: Few Mixed aerobic and anaerobic microorganisms Includes the following: Few Pseudomonas aeruginosa Few Pseudomonas aeruginosa #2 (.) MADELEINE EDUARDO Comment:Testing performed by : [facility], [address] [place]., [address] Organism PSEUDOMONAS AERUGINOSA MADELEINE Organism PSEUDOMONAS AERUGINOSA MADELEINE Organism MIXED AEROBIC AND ANAEROBIC MICROORGANISMS MADELEINE EDUARDO Wound (Thigh, left) 04/02/2024 9:57 PM TRIMMER CLIMBER 04/02/2024 11:37 PM TRIMMER CLIMBER Narrative MADELEINE EDUARDO - 04/10/2024 10:45 AM TRIMMER CLIMBER Specimen received on an ESwab. Testing performed by [facility] ([phone]) Specimens submitted from normally sterile body sites [...] GEN ERAL ORDERABLES Final Result MADELEINE EDUARDO [facility] [facility] [place] [address] * Blood culture Blood Peripheral (04/02/2024 9:57 PM TRIMMER CLIMBER) Report Final Report: No growth Comment:Testing performed by : [facility], [address] [place]., [address] Blood (Peripheral) 04/02/2024 9:57 PM TRIMMER CLIMBER 04/02/2024 11:46 PM TRIMMER CLIMBER Narrative MADELEINE EDUARDO - 04/07/2024 7:00 AM TRIMMER CLIMBER From a different site than #1. Draw [...] performance characteristics have been verified by the [facility]. For questions about this culture, contact the Microbiology Laboratory at [phone]. Interpretive data was last revised on 23. us Bing French MD LAB MICROBIOLOGY - GEN ERAL ORDERABLES Final Result MADELEINE EDUARDO [address] [facility] [place] [address] * Blood culture Blood Peripheral (04/02/2024 9:57 PM TRIMMER CLIMBER) Report Final Report: No growth Comment:Testing performed by : [facility], [address] [place] [address] Blood (Peripheral) 04/02/2024 9:57 PM TRIMMER CLIMBER 04/02/2024 11:46 PM TRIMMER CLIMBER Chantell EDUARDO - 04/07/2024 7:00 AM TRIMMER CLIMBER Draw Blood cultures before administration of Antibiotics [...] performance characteristics have been verified by the [facility]. For questions about this culture, contact the Microbiology Laboratory at [phone]. Interpretive data was last revised on 23. Bing French MD LAB MICROBIOLOGY - GEN ERAL ORDERABLES Final Result MADELEINE EDUARDO [address] [facility] [place] [address] * (ABNORMAL) D-dimer, quantitative (04/02/2024 9:57 PM TRIMMER CLIMBER) D-Dimer 2,040(H) <=499 ng/mL FEU Comment: Interpretive [...] revised on 2019. Blood 04/02/2024 9:57 PM TRIMMER CLIMBER 04/02/2024 9:59 PM TRIMMER CLIMBER us Bing French MD LAB BLOOD ORDERABLES F inal Result MADELEINE [address] [facility] [place] [address] * XR Chest 1 Vw Portable (04/02/2024 9:35 PM TRIMMER CLIMBER) Anatomical Region Laterality Modality Body, Chest N/A Computed Radiogr aphy 04/02/2024 9:44 PM TRIMMER CLIMBER Narrative 04/02/2024 9:46 PM TRIMMER CLIMBER EXAM DESCRIPTION: XR CHEST 1 VIEW REASON [...] John Bright M.D. KH T: Report ID: [id number] Reading Location: [id number] Procedure Note John Bright MD - 04/02/2024 [...] by John Bright M.D. T: Report ID: [id number] Reading Location: [id number] Bing French MD IMG XR PROCEDURES Nicole l Result * XR Tibia Fibula Left 2 views (04/02/2024 5:10 PM TRIMMER CLIMBER) Anatomical Region Laterality Modality Lower Extremities, Lower Leg Left Com puted Radiography 04/02/2024 5:29 PM TRIMMER CLIMBER Narrative 04/02/2024 5:33 PM TRIMMER CLIMBER EXAM DESCRIPTION: XR TIBIA FIBULA LEFT 2 [...] signed by John POLANCO T: Report ID: [id number] Reading Location: [id number] Procedure Note John Bright MD - 04/02/2024 [...] signed by John POLANCO T: Report ID: [id number] Reading Location: [id number] Bing French MD IMG XR PROCEDURES Nicole l Result * XR Knee Left 1 or 2 Views (04/02/2024 5:10 PM TRIMMER CLIMBER) Anatomical Region Laterality Modality Lower Extremities, Knee Left Computed Radiography 04/02/2024 5:33 PM TRIMMER CLIMBER Narrative 04/02/2024 5:35 PM TRIMMER CLIMBER EXAM DESCRIPTION: XR KNEE LEFT 1 OR [...] by John Bright M.D. T: Report ID: [id number] Reading Location: [id number] Procedure Note John Bright MD - 04/02/2024 [...] John Bright M.D. KH T: Report ID: [id number] Reading Location: [place] [address] us Nikhil Barajas Fraire DO IMG XR PROCEDURES Nicole l Result * Sepsis Lactate w/ Reflex (04/02/2024 4:07 PM TRIMMER CLIMBER) Sepsis Lactate 2.0 0.7 - 2.0 mmol/L Blood 04/02/2024 4:07 PM TRIMMER CLIMBER 04/02/2024 4:10 PM TRIMMER CLIMBER us Bing French MD LAB BLOOD ORDERABLES F inal Result [facility] [address] [facility] [place] [address] * eGFR (04/02/2024 4:07 PM TRIMMER CLIMBER) eGFR 83 >=60 mL/min/1. 73 m2 Comment: [...] last reviewed 2021. Blood 04/02/2024 4:07 PM TRIMMER CLIMBER 04/02/2024 4:11 PM TRIMMER CLIMBER us Bing French MD LAB BLOOD ORDERABLES F inal Result [facility] [address] [facility] [place] [address] * (ABNORMAL) Differential, auto (04/02/2024 4:07 PM TRIMMER CLIMBER) Neutrophil abs 8.7(H) 1.5 - 6.5 K/cumm Imm gran abs 0.2(H) 0.0 - 0.1 K/cumm [facility] Lymphocyte abs 2.3 0.8 - 3.3 K/cumm [facility] Monocyte abs 0.9(H) 0.2 - 0.8 K/cumm [facility] Eosinophil abs 0.0 0.0 - 0.5 K/cumm [facility] Basophil abs 0.0 0.0 - 0.1 K/cumm [facility] Neutrophil pct 72.1 % [facility] Comment: Interpretive Data Percent cell count reference ranges are not reported, since discordance with absolute values may lead to misinterpretation of CBC data. Current Interpretive Data was last revised on 2017. Imm gran pct 1.4 % [facility] Comment: Interpretive Data Percent cell count reference ranges are not reported, since discordance with absolute values may lead to misinterpretation of CBC data. Current Interpretive Data was last revised on 2017. Lymphocyte pct 18.7 % [facility] Comment: Interpretive Data Percent cell count reference ranges are not reported, since discordance with absolute values may lead to misinterpretation of CBC data. Current Interpretive Data was last revised on 2017. Monocyte pct 7.2 % [facility] Comment: Interpretive Data Percent cell count reference ranges are not reported, since discordance with absolute values may lead to misinterpretation of CBC data. Current Interpretive Data was last revised on 2017. Eosinophil pct 0.3 % [facility] Comment: Interpretive Data Percent cell count reference ranges are not reported, since discordance with absolute values may lead to misinterpretation of CBC data. Current Interpretive Data was last revised on 2017. Basophil pct 0.3 % [facility] Comment: Interpretive Data Percent cell count reference ranges are not reported, since discordance with absolute values may lead to misinterpretation of CBC data. Current Interpretive Data was last revised on 2017. Blood 04/02/2024 4:07 PM TRIMMER CLIMBER 04/02/2024 4:11 PM TRIMMER CLIMBER us Bing French MD LAB BLOOD ORDERABLES F inal Result Performing Organization Address [facility]/ZIP Co de Phone Number MADELEINE [address] [place] [address] * (ABNORMAL) CBC with auto differential (04/02/2024 4:07 PM TRIMMER CLIMBER) WBC 12.1(H) 3.8 - 9.9 K/cumm Hgb 9.9(L) 11.9 - 15.5 g/dL [facility] Hct 31.5(L) 35.6 - 45.5 % [facility] Plt 348 150 - 400 K/cumm [facility] MPV 9.2 9.1 - 12.3 fL [facility] RBC 3.03(L) 3.90 - 5.20 M/cumm [facility] MCV 104.0(H) 81.3 - 96.4 fL [facility] MCH 32.7 27.1 - 33.3 pg [facility] MCHC 31.4(L) 32.3 - 35.7 g/dL [facility] RDW CV 14.6 11.1 - 14.9 % [facility] RDW SD 55.5(H) 35.7 - 48.1 fL [facility] NRBC abs 0.00 0.00 - 0.01 K/cumm [facility] Blood 04/02/2024 4:07 PM TRIMMER CLIMBER 04/02/2024 4:11 PM TRIMMER CLIMBER Bing French MD LAB BLOOD ORDERABLES F inal Result Performing Organization Address City/[facility]/ZIP Co de Phone Number MADELE[place] [address] [place] [address] * (ABNORMAL) Comprehensive metabolic panel (04/02/2024 4:07 PM TRIMMER CLIMBER) Sodium 136 135 - 145 mmol/L Potassium, pl 3.9 3.3 - 4.9 mmol/L [facility] Chloride 101 97 - 110 mmol/L [facility] CO2 22 22 - 32 mmol/L [facility] Anion gap 13 2 - 15 mmol/L [facility] BUN 25 6 - 25 mg/dL [facility] Creatinine 0.83 0.60 - 1.10 mg/dL [facility] Glucose 127 70 - 199 mg/dL [facility] Comment: Interpretive Data Fasting glucose >/= 126 [...] 2022. Calcium 9.4 8.5 - 10.3 mg/dL [facility] Bilirubin, total 0.4 0.1 - 1.2 mg/dL [facility] Protein, pl 7.7 6.5 - 8.5 g/dL [facility] Albumin 3.2(L) 3.5 - 5.0 g/dL [facility] Alk phos 342(H) 40 - 130 Units/L [facility] ALT 20 7 - 45 Units/L [facility] AST 29 10 - 45 Units/L [facility] Blood 04/02/2024 4:07 PM TRIMMER CLIMBER 04/02/2024 4:11 PM TRIMMER CLIMBER us Bing French MD LAB BLOOD ORDERABLES F inal Result [place] [address] [facility] [place] [address] * XR Shoulder Right 2 or More Views (04/01/2024 9:46 AM TRIMMER CLIMBER) Anatomical Region Laterality Modality Upper Extremities, Shoulder Right Comp uted Radiography 04/01/2024 10:1 1 AM TRIMMER CLIMBER Impressions 04/01/2024 1:03 PM TRIMMER CLIMBER 1. 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 Dictated by: Homero Dwyer MD PHD The radiology attending physician has personally reviewed this study, and had reviewed and/or edited this written report and agrees with it. Electronically signed by: Mychal Griffin M.D. Narrative 04/01/2024 1:03 PM TRIMMER CLIMBER EXAMINATION: XR SHOULDER RIGHT 2 OR MORE [...] * Glucose, random (Outreach) (03/27/2024 2:09 PM TRIMMER CLIMBER) Glucose 141 70 - 199 mg/dL Comment: [...] last revised 2022. Blood 03/27/2024 2:09 PM TRIMMER CLIMBER 03/27/2024 7:01 PM TRIMMER CLIMBER Ericka Glass MD LAB BLOOD ORDERABLES Final Result Performing Organization Address City/[facility] Co de Phone Number M[place]LE[place] [facility] [place] [address] * eGFR (03/27/2024 2:09 PM TRIMMER CLIMBER) eGFR 83 >=60 mL/min/1. 73 m2 Comment: [...] last reviewed 2021. Blood 03/27/2024 2:09 PM TRIMMER CLIMBER 03/27/2024 7:14 PM TRIMMER CLIMBER Ericka Glass MD LAB BLOOD ORDERABLES Final Result Performing Organization Address City/[facility]/ZIP Co de Phone Number [facility] [place] [address] * (ABNORMAL) Differential, auto (03/27/2024 2:09 PM TRIMMER CLIMBER) Neutrophil abs 13.1(H) 1.5 - 6.5 K/cumm Imm gran abs 0.3(H) 0.0 - 0.1 K/cumm [facility] Lymphocyte abs 1.5 0.8 - 3.3 K/cumm [facility] Monocyte abs 0.9(H) 0.2 - 0.8 K/cumm [facility] Eosinophil abs 0.0 0.0 - 0.5 K/cumm [facility] Basophil abs 0.0 0.0 - 0.1 K/cumm [facility] Neutrophil pct 82.9 % [facility] Comment: Interpretive Data Percent cell count reference ranges are not reported, since discordance with absolute values may lead to misinterpretation of CBC data. Current Interpretive Data was last revised on 2017. Imm gran pct 1.6 % [facility] Comment: Interpretive Data Percent cell count reference ranges are not reported, since discordance with absolute values may lead to misinterpretation of CBC data. Current Interpretive Data was last revised on 2017. Lymphocyte pct 9.3 % [facility] Comment: Interpretive Data Percent cell count reference ranges are not reported, since discordance with absolute values may lead to misinterpretation of CBC data. Current Interpretive Data was last revised on 2017. Monocyte pct 5.8 % [facility] Comment: Interpretive Data Percent cell count reference ranges are not reported, since discordance with absolute values may lead to misinterpretation of CBC data. Current Interpretive Data was last revised on 2017. Eosinophil pct 0.2 % [facility] Comment: Interpretive Data Percent cell count reference ranges are not reported, since discordance with absolute values may lead to misinterpretation of CBC data. Current Interpretive Data was last revised on 2017. Basophil pct 0.2 % [facility] Comment: Interpretive Data Percent cell count reference ranges are not reported, since discordance with absolute values may lead to misinterpretation of CBC data. Current Interpretive Data was last revised on 2017. Blood 03/27/2024 2:09 PM TRIMMER CLIMBER 03/27/2024 7:01 PM TRIMMER CLIMBER Ericka Glass MD LAB BLOOD ORDERABLES Final Result Performing Organization Address [facility] Co de Phone Number [facility] [place] [address] * (ABNORMAL) Comprehensive metabolic panel, without glucose (Outreach) (03/27/2024 2:09 PM TRIMMER CLIMBER) Sodium 136 135 - 145 mmol/L Potassium, pl 3.4 3.3 - 4.9 mmol/L [facility] Chloride 95(L) 97 - 110 mmol/L [facility] CO2 25 22 - 32 mmol/L [facility] Anion gap 16(H) 2 - 15 mmol/L [facility] BUN 22 6 - 25 mg/dL [facility] Creatinine 0.83 0.60 - 1.10 mg/dL [facility] Calcium 8.6 8.5 - 10.3 mg/dL [facility] Protein, pl 7.3 6.5 - 8.5 g/dL [facility] Albumin 3.3(L) 3.5 - 5.0 g/dL [facility] Bilirubin, total 0.8 0.1 - 1.2 mg/dL [facility] Alk phos 257(H) 40 - 130 Units/L [facility] AST 53(H) 10 - 45 Units/L [facility] ALT 29 7 - 45 Units/L [facility] Blood 03/27/2024 2:09 PM TRIMMER CLIMBER 03/27/2024 7:01 PM TRIMMER CLIMBER Ericka Glass MD LAB BLOOD ORDERABLES Final Result Performing Organization Address City/[facility]/ZIP Co de Phone Number [facility] Department of Laboratories [place], [place] [id number] * (ABNORMAL) CBC with auto differential (03/27/2024 2:09 PM TRIMMER CLIMBER) WBC 15.8(H) 3.8 - 9.9 K/cumm Hgb 11.0(L) 11.9 - 15.5 g/dL [facility] Hct 35.4(L) 35.6 - 45.5 % [facility] Plt 305 150 - 400 K/cumm [facility] MPV 10.4 9.1 - 12.3 fL [facility] RBC 3.36(L) 3.90 - 5.20 M/cumm [facility] MCV 105.4(H) 81.3 - 96.4 fL [facility] MCH 32.7 27.1 - 33.3 pg [facility] MCHC 31.1(L) 32.3 - 35.7 g/dL [facility] RDW CV 14.7 11.1 - 14.9 % [facility] RDW SD 56.8(H) 35.7 - 48.1 fL [facility] NRBC abs 0.02(H) 0.00 - 0.01 K/cumm [facility] Blood 03/27/2024 2:09 PM TRIMMER CLIMBER 03/27/2024 7:01 PM TRIMMER CLIMBER Ericka Glass MD LAB BLOOD ORDERABLES Final Result Performing Organization Address City/[facility]/ZIP Co de Phone Number [facility] [place] [address] * (ABNORMAL) Erythrocyte sedimentation rate (03/27/2024 2:09 PM TRIMMER CLIMBER) [facility] Erythrocyte sedimentation rate 48(H) 1 - 30 mm/hr Blood 03/27/2024 2:09 PM TRIMMER CLIMBER 03/27/2024 7:01 PM TRIMMER CLIMBER Ericka Glass MD LAB BLOOD ORDERABLES Final Result [facility] [place] [address] * (ABNORMAL) CRP (acute phase) (03/27/2024 2:09 PM TRIMMER CLIMBER) CRP 312.4(H) <=10.0 mg/L Comment:Repeated on Dilution Blood 03/27/2024 2:09 PM TRIMMER CLIMBER 03/27/2024 7:01 PM TRIMMER CLIMBER Ericka Glass MD LAB BLOOD ORDERABLES Final Result Performing Organization Address [facility] Co de Phone Number [facility] [place] [address] * POCT glucose (03/12/2024 7:49 PM TRIMMER CLIMBER) Glucose, POC 109 70 - 199 mg/dL Blood 03/12/2024 7:49 PM TRIMMER CLIMBER 03/12/2024 7:49 PM TRIMMER CLIMBER us Krysten Cohn MD LAB POCT ORDERABLES - DEVICE Final Result Performing Organization Address [facility] Co de Phone Number [facility] [place] [address] * POCT glucose (03/12/2024 4:39 PM TRIMMER CLIMBER) Glucose, POC 78 70 - 199 mg/dL Blood 03/12/2024 4:39 PM TRIMMER CLIMBER 03/12/2024 4:39 PM TRIMMER CLIMBER us Krysten Cohn MD LAB POCT ORDERABLES - DEVICE Final Result Performing Organization Address [facility] Co de Phone Number [facility] [place] [address] * POCT glucose (03/12/2024 11:41 AM TRIMMER CLIMBER) Glucose, POC 98 70 - 199 mg/dL Blood 03/12/2024 11:4 1 AM TRIMMER CLIMBER 03/12/2024 11:41 AM TRIMMER CLIMBER us Krysten Cohn MD LAB POCT ORDERABLES - DEVICE Final Result Performing Organization Address [facility] de Phone Number [facility] [place] [address] * POCT glucose (03/12/2024 7:48 AM TRIMMER CLIMBER) Glucose, POC 92 70 - 199 mg/dL Blood 03/12/2024 7:48 AM TRIMMER CLIMBER 03/12/2024 7:48 AM TRIMMER CLIMBER Krysten Cohn MD LAB POCT ORDERABLES - DEVICE Final Result Performing Organization Address [facility] de Phone Number MADELEINE [facility] [place] [address] * eGFR (03/11/2024 9:56 PM TRIMMER CLIMBER) eGFR >90 >=60 mL/min/1. 73 m2 Comment: [...] last reviewed 2021. Blood 03/11/2024 9:56 PM TRIMMER CLIMBER 03/11/2024 10:31 PM TRIMMER CLIMBER us Krysten Cohn MD LAB BLOOD ORDERABLES Final Result Performing Organization Address City/[facility] Co de Phone Number MADELEINE [facility] [place] [address] * Differential, auto (03/11/2024 9:56 PM TRIMMER CLIMBER) Neutrophil abs 3.2 1.5 - 6.5 K/cumm Imm gran abs 0.0 0.0 - 0.1 K/cumm [facility] Lymphocyte abs 1.6 0.8 - 3.3 K/cumm [facility] Monocyte abs 0.7 0.2 - 0.8 K[facility]cumm [facility] Eosinophil abs 0.1 0.0 - 0.5 K/cumm [facility] Basophil abs 0.1 0.0 - 0.1 K/cumm [facility] Neutrophil pct 55.9 % [facility] Comment: Interpretive Data Percent cell count reference ranges are not reported, since discordance with absolute values may lead to misinterpretation of CBC data. Current Interpretive Data was last revised on 2017. Imm gran pct 0.7 % [facility] Comment: Interpretive Data Percent cell count reference ranges are not reported, since discordance with absolute values may lead to misinterpretation of CBC data. Current Interpretive Data was last revised on 2017. Lymphocyte pct 28.2 % [facility] Comment: Interpretive Data Percent cell count reference ranges are not reported, since discordance with absolute values may lead to misinterpretation of CBC data. Current Interpretive Data was last revised on 2017. Monocyte pct 12.3 % [facility] Comment: Interpretive Data Percent cell count reference ranges are not reported, since discordance with absolute values may lead to misinterpretation of CBC data. Current Interpretive Data was last revised on 2017. Eosinophil pct 1.9 % [facility] Comment: Interpretive Data Percent cell count reference ranges are not reported, since discordance with absolute values may lead to misinterpretation of CBC data. Current Interpretive Data was last revised on 2017. Basophil pct 1.0 % [facility] Comment: Interpretive Data Percent cell count reference ranges are not reported, since discordance with absolute values may lead to misinterpretation of CBC data. Current Interpretive Data was last revised on 2017. Blood 03/11/2024 9:56 PM TRIMMER CLIMBER 03/11/2024 10:33 PM TRIMMER CLIMBER us Krysten Cohn MD LAB BLOOD ORDERABLES Final Result Performing Organization Address [facility] Co de Phone Number [facility] [place] [address] * (ABNORMAL) CBC with auto differential (03/11/2024 9:56 PM TRIMMER CLIMBER) Pathologist [facility] WBC 5.8 3.8 - 9.9 K/cumm Hgb 8.7(L) 11.9 - 15.5 g/dL [facility] Hct 27.3(L) 35.6 - 45.5 % [facility] Plt 392 150 - 400 K/cumm [facility] MPV 9.9 9.1 - 12.3 fL [facility] RBC 2.55(L) 3.90 - 5.20 M/cumm [facility] MCV 107.1(H) 81.3 - 96.4 fL [facility] MCH 34.1(H) 27.1 - 33.3 pg [facility] MCHC 31.9(L) 32.3 - 35.7 g/dL [facility] RDW CV 15.7(H) 11.1 - 14.9 % [facility] RDW SD 61.0(H) 35.7 - 48.1 fL [facility] NRBC abs 0.00 0.00 - 0.01 K/cumm [facility] Blood 03/11/2024 9:56 PM TRIMMER CLIMBER 03/11/2024 10:33 PM TRIMMER CLIMBER us Krysten Cohn MD LAB BLOOD ORDERABLES Final Result Performing Organization Address [facility]/ZIP Co de Phone Number [facility] [place] [address] * Phosphorus (03/11/2024 9:56 PM TRIMMER CLIMBER) Pathologist [facility] Phosphorus, pl 3.1 2.3 - 4.5 mg/dL Blood 03/11/2024 9:56 PM TRIMMER CLIMBER 03/11/2024 10:31 PM TRIMMER CLIMBER Krysten Cohn MD LAB BLOOD ORDERABLES Final Result Performing Organization Address City/[facility]/ZIP Co de Phone Number [facility] [place] [address] * (ABNORMAL) Magnesium (03/11/2024 9:56 PM TRIMMER CLIMBER) Pathologist [facility] Magnesium 1.3(L) 1.4 - 2.5 mg/dL Blood 03/11/2024 9:56 PM TRIMMER CLIMBER 03/11/2024 10:31 PM TRIMMER CLIMBER us Krysten Cohn MD LAB BLOOD ORDERABLES Final Result Performing Organization Address [facility] de Phone Number [facility] [place] [address] * (ABNORMAL) Comprehensive metabolic panel (03/11/2024 9:56 PM TRIMMER CLIMBER) [facility] Sodium 140 135 - 145 mmol/L Potassium, pl 3.1(L) 3.3 - 4.9 mmol/L [facility] Chloride 100 97 - 110 mmol/L [facility] CO2 29 22 - 32 mmol/L [facility] Anion gap 11 2 - 15 mmol/L [facility] BUN 10 6 - 25 mg/dL [facility] Creatinine 0.64 0.60 - 1.10 mg/dL [facility] Glucose 96 70 - 199 mg/dL [facility] Comment: Interpretive Data Fasting glucose >/= [...] 2022. Calcium 7.8(L) 8.5 - 10.3 mg/dL [facility] Bilirubin, total 0.5 0.1 - 1.2 mg/dL [facility] Protein, pl 6.1(L) 6.5 - 8.5 g/dL [facility] Albumin 3.0(L) 3.5 - 5.0 g/dL [facility] Alk phos 283(H) 40 - 130 Units/L [facility] ALT 11 7 - 45 Units/L [facility] AST 38 10 - 45 Units/L [facility] Blood 03/11/2024 9:56 PM TRIMMER CLIMBER 03/11/2024 10:31 PM TRIMMER CLIMBER us Krysten Cohn MD LAB BLOOD ORDERABLES Final Result Performing Organization Address [facility] de Phone Number [facility] [place] [address] * POCT glucose (03/11/2024 7:43 PM TRIMMER CLIMBER) Glucose, POC 106 70 - 199 mg/dL Blood 03/11/2024 7:43 PM TRIMMER CLIMBER 03/11/2024 7:43 PM TRIMMER CLIMBER us Krysten Cohn MD LAB POCT ORDERABLES - DEVICE Final Result Performing Organization Address City/[facility] Co de Phone Number [facility] [place] [address] * POCT glucose (03/11/2024 5:07 PM TRIMMER CLIMBER) Glucose, POC 109 70 - 199 mg/dL Blood 03/11/2024 5:07 PM TRIMMER CLIMBER 03/11/2024 5:07 PM TRIMMER CLIMBER us Krysten Cohn MD LAB POCT ORDERABLES - DEVICE Final Result Performing Organization Address [facility]/State/ZIP Co de Phone Number [facility] [place] [address] * POCT glucose (03/11/2024 11:52 AM TRIMMER CLIMBER) Glucose, POC 102 70 - 199 mg/dL Blood 03/11/2024 11:5 2 AM TRIMMER CLIMBER 03/11/2024 11:52 AM TRIMMER CLIMBER us Krysten Cohn MD LAB POCT ORDERABLES - DEVICE Final Result Performing Organization Address [facility] [place] [address] * POCT glucose (03/11/2024 7:40 AM TRIMMER CLIMBER) Glucose, POC 110 70 - 199 mg/dL Blood 03/11/2024 7:40 AM TRIMMER CLIMBER 03/11/2024 7:40 AM TRIMMER CLIMBER us Krysten Cohn MD LAB POCT ORDERABLES - DEVICE Final Result Performing Organization Address City/[facility]/ZIP Co de Phone Number [facility] [place] [address] * POCT glucose (03/10/2024 7:47 PM TRIMMER CLIMBER) Glucose, POC 127 70 - 199 mg/dL Blood 03/10/2024 7:47 PM TRIMMER CLIMBER 03/10/2024 7:47 PM TRIMMER CLIMBER us Krysten Cohn MD LAB POCT ORDERABLES - DEVICE [place] [address] * POCT glucose (03/10/2024 5:07 PM TRIMMER CLIMBER) Glucose, POC 93 70 - 199 mg/dL Blood 03/10/2024 5:07 PM TRIMMER CLIMBER 03/10/2024 5:07 PM TRIMMER CLIMBER us Krysten Cohn MD LAB POCT ORDERABLES - DEVICE Final Result Performing Organization Address [facility] de Phone Number [facility] [place] [address] * POCT glucose (03/10/2024 11:24 AM TRIMMER CLIMBER) Glucose, POC 93 70 - 199 mg/dL Blood 03/10/2024 11:2 4 AM TRIMMER CLIMBER 03/10/2024 11:24 AM TRIMMER CLIMBER us Krysten Cohn MD LAB POCT ORDERABLES - DEVICE Final Result Performing Organization Address [facility] de Phone Number [facility] [place] [address] * POCT glucose (03/10/2024 7:43 AM TRIMMER CLIMBER) Glucose, POC 105 70 - 199 mg/dL Blood 03/10/2024 7:43 AM TRIMMER CLIMBER 03/10/2024 7:43 AM TRIMMER CLIMBER Krysten Cohn MD LAB POCT ORDERABLES - DEVICE Final Result Performing Organization Address [facility] de Phone Number [facility] [place] [address] * eGFR (03/09/2024 8:42 PM TRIMMER CLIMBER) eGFR >90 >=60 mL/min/1. 73 m2 Comment: [...] last reviewed 2021. Blood 03/09/2024 8:42 PM TRIMMER CLIMBER 03/09/2024 8:56 PM TRIMMER CLIMBER us Krysten Cohn MD LAB BLOOD ORDERABLES Final Result [facility] [place] [address] * (ABNORMAL) Differential, auto (03/09/2024 8:42 PM TRIMMER CLIMBER) Pathologist [facility] Neutrophil abs 5.2 1.5 - 6.5 K/cumm Imm gran abs 0.1 0.0 - 0.1 K/cumm [facility] Lymphocyte abs 1.7 0.8 - 3.3 K/cumm [facility] Monocyte abs 0.9(H) 0.2 - 0.8 K/cumm [facility] Eosinophil abs 0.1 0.0 - 0.5 K/cumm [facility] Basophil abs 0.1 0.0 - 0.1 K/cumm [facility] Neutrophil pct 65.0 % [facility] Comment: Interpretive Data Percent cell count reference ranges are not reported, since discordance with absolute values may lead to misinterpretation of CBC data. Current Interpretive Data was last revised on 2017. Imm gran pct 0.7 % [facility] Comment: Interpretive Data Percent cell count reference ranges are not reported, since discordance with absolute values may lead to misinterpretation of CBC data. Current Interpretive Data was last revised on 2017. Lymphocyte pct 21.0 % [facility] Comment: Interpretive Data Percent cell count reference ranges are not reported, since discordance with absolute values may lead to misinterpretation of CBC data. Current Interpretive Data was last revised on 2017. Monocyte pct 11.2 % [facility] Comment: Interpretive Data Percent cell count reference ranges are not reported, since discordance with absolute values may lead to misinterpretation of CBC data. Current Interpretive Data was last revised on 2017. Eosinophil pct 1.2 % [facility] Comment: Interpretive Data Percent cell count reference ranges are not reported, since discordance with absolute values may lead to misinterpretation of CBC data. Current Interpretive Data was last revised on 2017. Basophil pct 0.9 % [facility] Comment: Interpretive Data Percent cell count reference ranges are not reported, since discordance with absolute values may lead to misinterpretation of CBC data. Current Interpretive Data was last revised on 2017. Blood 03/09/2024 8:42 PM TRIMMER CLIMBER 03/09/2024 8:56 PM TRIMMER CLIMBER Krysten Cohn MD LAB BLOOD ORDERABLES Final Result [facility] [place] [address] * (ABNORMAL) CBC with auto differential (03/09/2024 8:42 PM TRIMMER CLIMBER) WBC 8.0 3.8 - 9.9 K/cumm Hgb 8.5(L) 11.9 - 15.5 g/dL [facility] Hct 26.9(L) 35.6 - 45.5 % [facility] Plt 399 150 - 400 K/cumm [facility] MPV 10.1 9.1 - 12.3 fL [facility] RBC 2.55(L) 3.90 - 5.20 M/cumm [facility] MCV 105.5(H) 81.3 - 96.4 fL [facility] MCH 33.3 27.1 - 33.3 pg [facility] MCHC 31.6(L) 32.3 - 35.7 g/dL [facility] RDW CV 16.0(H) 11.1 - 14.9 % [facility] RDW SD 61.0(H) 35.7 - 48.1 fL [facility] NRBC abs 0.00 0.00 - 0.01 K/cumm [facility] Blood 03/09/2024 8:42 PM TRIMMER CLIMBER 03/09/2024 8:56 PM TRIMMER CLIMBER Krysten Cohn MD LAB BLOOD ORDERABLES Final Result Performing Organization Address City/[facility] Co de Phone Number [facility] [place] [address] * Phosphorus (03/09/2024 8:42 PM TRIMMER CLIMBER) Pathologist [facility] Phosphorus, pl 2.6 2.3 - 4.5 mg/dL Blood 03/09/2024 8:42 PM TRIMMER CLIMBER 03/09/2024 8:56 PM TRIMMER CLIMBER us Krysten Cohn MD LAB BLOOD ORDERABLES Final Result Performing Organization Address [facility] de Phone Number [facility] [place] [address] * (ABNORMAL) Magnesium (03/09/2024 8:42 PM TRIMMER CLIMBER) [facility] Magnesium 1.3(L) 1.4 - 2.5 mg/dL Blood 03/09/2024 8:42 PM TRIMMER CLIMBER 03/09/2024 8:56 PM TRIMMER CLIMBER Krysten Cohn MD LAB BLOOD ORDERABLES Final Result Performing Organization Address [facility] de Phone Number [facility] [place] [address] * (ABNORMAL) Comprehensive metabolic panel (03/09/2024 8:42 PM TRIMMER CLIMBER) Sodium 138 135 - 145 mmol/L Potassium, pl 3.2(L) 3.3 - 4.9 mmol/L [facility] Chloride 99 97 - 110 mmol/L [facility] CO2 29 22 - 32 mmol/L [facility] Anion gap 10 2 - 15 mmol/L [facility] BUN 9 6 - 25 mg/dL [facility] Creatinine 0.62 0.60 - 1.10 mg/dL [facility] Glucose 102 70 - 199 mg/dL [facility] Comment: Interpretive Data Fasting glucose >/= [...] 2022. Calcium 8.0(L) 8.5 - 10.3 mg/dL [facility] Bilirubin, total 0.6 0.1 - 1.2 mg/dL [facility] Protein, pl 6.1(L) 6.5 - 8.5 g/dL [facility] Albumin 3.0(L) 3.5 - 5.0 g/dL [facility] Alk phos 213(H) 40 - 130 Units/L [facility] ALT 10 7 - 45 Units/L [facility] AST 34 10 - 45 Units/L [facility] Blood 03/09/2024 8:42 PM TRIMMER CLIMBER 03/09/2024 8:56 PM TRIMMER CLIMBER us Krysten Cohn MD LAB BLOOD ORDERABLES Final Result [facility] Department [place] [address] * POCT glucose (03/09/2024 7:31 PM TRIMMER CLIMBER) Pathologist [facility] Glucose, POC 119 70 - 199 mg/dL Blood 03/09/2024 7:31 PM TRIMMER CLIMBER 03/09/2024 7:31 PM TRIMMER CLIMBER us Krysten Cohn MD LAB POCT ORDERABLES - DEVICE Final Result Performing Organization Address City/[facility] Co de Phone Number MADELEINE [facility] [place] [address] * POCT glucose (03/09/2024 4:39 PM TRIMMER CLIMBER) Glucose, POC 105 70 - 199 mg/dL Blood 03/09/2024 4:39 PM TRIMMER CLIMBER 03/09/2024 4:39 PM TRIMMER CLIMBER us Krysten Cohn MD LAB POCT ORDERABLES - DEVICE Final Result Performing Organization Address [facility] Co de Phone Number [facility] [place] [address] * POCT glucose (03/09/2024 11:39 AM TRIMMER CLIMBER) Glucose, POC 121 70 - 199 mg/dL Blood 03/09/2024 11:3 9 AM TRIMMER CLIMBER 03/09/2024 11:39 AM TRIMMER CLIMBER us Krysten Cohn MD LAB POCT ORDERABLES - DEVICE Final Result Performing Organization Address City/[facility] Co de Phone Number [facility] [place] [address] * POCT glucose (03/09/2024 8:27 AM TRIMMER CLIMBER) Glucose, POC 123 70 - 199 mg/dL Blood 03/09/2024 8:27 AM TRIMMER CLIMBER 03/09/2024 8:27 AM TRIMMER CLIMBER us Krysten Cohn MD LAB POCT ORDERABLES - DEVICE Final Result Performing Organization Address City/[facility] Co de Phone Number MADELEINE [facility] [place] [address] * eGFR (03/08/2024 9:09 PM TRIMMER CLIMBER) eGFR >90 >=60 mL/min/1. 73 m2 Comment: [...] last reviewed 2021. Blood 03/08/2024 9:09 PM TRIMMER CLIMBER 03/08/2024 9:30 PM TRIMMER CLIMBER us Krysten Cohn MD LAB BLOOD ORDERABLES Final Result Performing Organization Address City/[facility] Co de Phone Number [facility] [place] [address] * Phosphorus (03/08/2024 9:09 PM TRIMMER CLIMBER) Pathologist [facility] Phosphorus, pl 2.7 2.3 - 4.5 mg/dL Blood 03/08/2024 9:09 PM TRIMMER CLIMBER 03/08/2024 9:30 PM TRIMMER CLIMBER us Krysten Cohn MD LAB BLOOD ORDERABLES Final Result Performing Organization Address [facility] Co de Phone Number [facility] [place] [address] * (ABNORMAL) Magnesium (03/08/2024 9:09 PM TRIMMER CLIMBER) Magnesium 1.2(L) 1.4 - 2.5 mg/dL Blood 03/08/2024 9:09 PM TRIMMER CLIMBER 03/08/2024 9:30 PM TRIMMER CLIMBER us Krysten Cohn MD LAB BLOOD ORDERABLES Final Result [facility] [place] [address] * (ABNORMAL) Comprehensive metabolic panel (03/08/2024 9:09 PM TRIMMER CLIMBER) Pathologist [facility] Sodium 138 135 - 145 mmol/L Potassium, pl 3.4 3.3 - 4.9 mmol/L [facility] Chloride 99 97 - 110 mmol/L [facility] CO2 27 22 - 32 mmol/L [facility] Anion gap 12 2 - 15 mmol/L [facility] BUN 11 6 - 25 mg/dL [facility] Creatinine 0.62 0.60 - 1.10 mg/dL [facility] Glucose 93 70 - 199 mg/dL [facility] Comment: Interpretive Data Fasting glucose >/= [...] 2022. Calcium 7.9(L) 8.5 - 10.3 mg/dL [facility] Bilirubin, total 0.6 0.1 - 1.2 mg/dL [facility] Protein, pl 6.2(L) 6.5 - 8.5 g/dL [facility] Albumin 2.9(L) 3.5 - 5.0 g/dL [facility] Alk phos 226(H) 40 - 130 Units/L [facility] ALT 13 7 - 45 Units/L [facility] AST 42 10 - 45 Units/L [facility] Blood 03/08/2024 9:09 PM TRIMMER CLIMBER 03/08/2024 9:30 PM TRIMMER CLIMBER us Krysten Cohn MD LAB BLOOD ORDERABLES Final Result Performing Organization Address [facility] Co de Phone Number [facility] [place] [address] * POCT glucose (03/08/2024 7:40 PM TRIMMER CLIMBER) Glucose, POC 103 70 - 199 mg/dL Blood 03/08/2024 7:40 PM TRIMMER CLIMBER 03/08/2024 7:40 PM TRIMMER CLIMBER us Krysten Cohn MD LAB POCT ORDERABLES - DEVICE Final Result Performing Organization Address [facility] Co de Phone Number [facility] [place] [address] * POCT glucose (03/08/2024 5:03 PM TRIMMER CLIMBER) Glucose, POC 81 70 - 199 mg/dL Blood 03/08/2024 5:03 PM TRIMMER CLIMBER 03/08/2024 5:03 PM TRIMMER CLIMBER us Krysten Cohn MD LAB POCT ORDERABLES - DEVICE Final Result Performing Organization Address [facility] Co de Phone Number [facility] [place] [address] * POCT glucose (03/08/2024 11:12 AM TRIMMER CLIMBER) Glucose, POC 104 70 - 199 mg/dL Blood 03/08/2024 11:1 2 AM TRIMMER CLIMBER 03/08/2024 11:12 AM TRIMMER CLIMBER us Krysten Cohn MD LAB POCT ORDERABLES - DEVICE Final Result Performing Organization Address [facility] de Phone Number [facility] [place] [address] * POCT glucose (03/08/2024 8:18 AM TRIMMER CLIMBER) Glucose, POC 103 70 - 199 mg/dL Blood 03/08/2024 8:18 AM TRIMMER CLIMBER 03/08/2024 8:18 AM TRIMMER CLIMBER Krysten Cohn MD LAB POCT ORDERABLES - DEVICE Final Result Performing Organization Address [facility] de Phone Number MADELEINE [facility] [place] [address] * eGFR (03/07/2024 10:22 PM TRIMMER CLIMBER) eGFR >90 >=60 mL/min/1. 73 m2 Comment: [...] reviewed 2021. Blood 03/07/2024 10:2 2 PM TRIMMER CLIMBER 03/07/2024 11:02 PM TRIMMER CLIMBER us Krysten Cohn MD LAB BLOOD ORDERABLES Final Result Performing Organization Address [facility]/State/ZIP Co de Phone Number MADELEINE DEY [facility] [place] [address] * (ABNORMAL) Differential, auto (03/07/2024 10:22 PM TRIMMER CLIMBER) Neutrophil abs 7.3(H) 1.5 - 6.5 K/cumm Imm gran abs 0.2(H) 0.0 - 0.1 K/cumm [facility] Lymphocyte abs 2.2 0.8 - 3.3 K/cumm [facility] Monocyte abs 1.1(H) 0.2 - 0.8 K/cumm [facility] Eosinophil abs 0.2 0.0 - 0.5 K/cumm [facility] Basophil abs 0.1 0.0 - 0.1 K/cumm [facility] Neutrophil pct 66.0 % [facility] Comment: Interpretive Data Percent cell count reference ranges are not reported, since discordance with absolute values may lead to misinterpretation of CBC data. Current Interpretive Data was last revised on 2017. Imm gran pct 2.0 % [facility] Comment: Interpretive Data Percent cell count reference ranges are not reported, since discordance with absolute values may lead to misinterpretation of CBC data. Current Interpretive Data was last revised on 2017. Lymphocyte pct 20.0 % [facility] Comment: Interpretive Data Percent cell count reference ranges are not reported, since discordance with absolute values may lead to misinterpretation of CBC data. Current Interpretive Data was last revised on 2017. Monocyte pct 9.6 % [facility] Comment: Interpretive Data Percent cell count reference ranges are not reported, since discordance with absolute values may lead to misinterpretation of CBC data. Current Interpretive Data was last revised on 2017. Eosinophil pct 1.4 % [facility] Comment: Interpretive Data Percent cell count reference ranges are not reported, since discordance with absolute values may lead to misinterpretation of CBC data. Current Interpretive Data was last revised on 2017. Basophil pct 1.0 % [facility] Comment: Interpretive Data Percent cell count reference ranges are not reported, since discordance with absolute values may lead to misinterpretation of CBC data. Current Interpretive Data was last revised on 2017. Blood 03/07/2024 10:2 2 PM TRIMMER CLIMBER 03/07/2024 11:02 PM TRIMMER CLIMBER us Krysten Cohn MD LAB BLOOD ORDERABLES Final Result Performing Organization Address [facility] Co de Phone Number [facility] [place] [address] * (ABNORMAL) CBC with auto differential (03/07/2024 10:22 PM TRIMMER CLIMBER) [facility] WBC 11.1(H) 3.8 - 9.9 K/cumm Hgb 8.3(L) 11.9 - 15.5 g/dL [facility] Hct 25.8(L) 35.6 - 45.5 % [facility] Plt 335 150 - 400 K/cumm [facility] MPV 10.3 9.1 - 12.3 fL [facility] RBC 2.37(L) 3.90 - 5.20 M/cumm [facility] MCV 108.9(H) 81.3 - 96.4 fL [facility] MCH 35.0(H) 27.1 - 33.3 pg [facility] MCHC 32.2(L) 32.3 - 35.7 g/dL [facility] RDW CV 16.5(H) 11.1 - 14.9 % [facility] RDW SD 63.4(H) 35.7 - 48.1 fL [facility] NRBC abs 0.00 0.00 - 0.01 K/cumm [facility] Blood 03/07/2024 10:2 2 PM TRIMMER CLIMBER 03/07/2024 11:02 PM TRIMMER CLIMBER us Krysten Cohn MD LAB BLOOD ORDERABLES Final Result Performing Organization Address City/[facility]/ZIP Co de Phone Number [facility] [place] [address] * Phosphorus (03/07/2024 10:22 PM TRIMMER CLIMBER) [facility] Phosphorus, pl 2.7 2.3 - 4.5 mg/dL Blood 03/07/2024 10:2 2 PM TRIMMER CLIMBER 03/07/2024 11:02 PM TRIMMER CLIMBER Krysten Cohn MD LAB BLOOD ORDERABLES Final Result Performing Organization Address City/[facility] Co de Phone Number [facility] [place] [address] * Magnesium (03/07/2024 10:22 PM TRIMMER CLIMBER) [facility] Magnesium 1.4 1.4 - 2.5 mg/dL Blood 03/07/2024 10:2 2 PM TRIMMER CLIMBER 03/07/2024 11:02 PM TRIMMER CLIMBER Krysten Cohn MD LAB BLOOD ORDERABLES Final Result Performing Organization Address [facility] de Phone Number [facility] [place] [address] * (ABNORMAL) Comprehensive metabolic panel (03/07/2024 10:22 PM TRIMMER CLIMBER) [facility] Sodium 138 135 - 145 mmol/L Potassium, pl 3.3 3.3 - 4.9 mmol/L [facility] Chloride 101 97 - 110 mmol/L [facility] CO2 29 22 - 32 mmol/L [facility] Anion gap 8 2 - 15 mmol/L [facility] BUN 13 6 - 25 mg/dL [facility] Creatinine 0.70 0.60 - 1.10 mg/dL [facility] Glucose 93 70 - 199 mg/dL [facility] Comment: Interpretive Data Fasting glucose >/= [...] 2022. Calcium 7.7(L) 8.5 - 10.3 mg/dL [facility] Bilirubin, total 0.7 0.1 - 1.2 mg/dL [facility] Protein, pl 5.7(L) 6.5 - 8.5 g/dL [facility] Albumin 2.5(L) 3.5 - 5.0 g/dL [facility] Alk phos 216(H) 40 - 130 Units/L [facility] ALT 14 7 - 45 Units/L [facility] AST 37 10 - 45 Units/L [facility] Blood 03/07/2024 10:2 2 PM TRIMMER CLIMBER 03/07/2024 11:02 PM TRIMMER CLIMBER us Krysten Cohn MD LAB BLOOD ORDERABLES Final Result Performing Organization Address [facility] de Phone Number [facility] [place] [address] * POCT glucose (03/07/2024 7:39 PM TRIMMER CLIMBER) Glucose, POC 96 70 - 199 mg/dL Blood 03/07/2024 7:39 PM TRIMMER CLIMBER 03/07/2024 7:39 PM TRIMMER CLIMBER Krysten Cohn MD LAB POCT ORDERABLES - DEVICE Final Result Performing Organization Address [facility] de Phone Number [facility] [place] [address] * POCT glucose (03/07/2024 5:48 PM TRIMMER CLIMBER) Glucose, POC 81 70 - 199 mg/dL Blood 03/07/2024 5:48 PM TRIMMER CLIMBER 03/07/2024 5:48 PM TRIMMER CLIMBER Krysten Cohn MD LAB POCT ORDERABLES - DEVICE Final Result Performing Organization Address [facility]/ZIP Co de Phone Number MADELEINE [facility] [place] [address] * POCT glucose (03/07/2024 11:28 AM TRIMMER CLIMBER) Glucose, POC 126 70 - 199 mg/dL Blood 03/07/2024 11:2 8 AM TRIMMER CLIMBER 03/07/2024 11:28 AM TRIMMER CLIMBER us Krysten Cohn MD LAB POCT ORDERABLES - DEVICE Final Result Performing Organization Address [facility] Co de Phone Number MADELEINE [facility] [place] [address] * POCT glucose (03/07/2024 7:44 AM TRIMMER CLIMBER) Glucose, POC 118 70 - 199 mg/dL Blood 03/07/2024 7:44 AM TRIMMER CLIMBER 03/07/2024 7:44 AM TRIMMER CLIMBER us Krysten Cohn MD LAB POCT ORDERABLES - DEVICE Final Result Performing Organization Address City/[facility] Co de Phone Number MADELEINE [facility] [place] [address] * eGFR (03/06/2024 10:05 PM TRIMMER CLIMBER) eGFR >90 >=60 mL/min/1. 73 m2 Comment: [...] reviewed 2021. Blood 03/06/2024 10:0 5 PM TRIMMER CLIMBER 03/06/2024 11:51 PM TRIMMER CLIMBER us Krysten Cohn MD LAB BLOOD ORDERABLES Final Result [facility] [place] [address] * (ABNORMAL) Differential, auto (03/06/2024 10:05 PM TRIMMER CLIMBER) Neutrophil abs 11.3(H) 1.5 - 6.5 K/cumm Imm gran abs 0.5(H) 0.0 - 0.1 K/cumm [facility] Lymphocyte abs 2.1 0.8 - 3.3 K/cumm [facility] Monocyte abs 1.0(H) 0.2 - 0.8 K/cumm [facility] Eosinophil abs 0.1 0.0 - 0.5 K/cumm [facility] Basophil abs 0.1 0.0 - 0.1 K/cumm [facility] Neutrophil pct 75.1 % [facility] Comment: Interpretive Data Percent cell count reference ranges are not reported, since discordance with absolute values may lead to misinterpretation of CBC data. Current Interpretive Data was last revised on 2017. Imm gran pct 3.1 % [facility] Comment: Interpretive Data Percent cell count reference ranges are not reported, since discordance with absolute values may lead to misinterpretation of CBC data. Current Interpretive Data was last revised on 2017. Lymphocyte pct 13.8 % [facility] Comment: Interpretive Data Percent cell count reference ranges are not reported, since discordance with absolute values may lead to misinterpretation of CBC data. Current Interpretive Data was last revised on 2017. Monocyte pct 6.4 % [facility] Comment: Interpretive Data Percent cell count reference ranges are not reported, since discordance with absolute values may lead to misinterpretation of CBC data. Current Interpretive Data was last revised on 2017. Eosinophil pct 0.9 % [facility] Comment: Interpretive Data Percent cell count reference ranges are not reported, since discordance with absolute values may lead to misinterpretation of CBC data. Current Interpretive Data was last revised on 2017. Basophil pct 0.7 % [facility] Comment: Interpretive Data Percent cell count reference ranges are not reported, since discordance with absolute values may lead to misinterpretation of CBC data. Current Interpretive Data was last revised on 2017. Blood 03/06/2024 10:0 5 PM TRIMMER CLIMBER 03/06/2024 11:52 PM TRIMMER CLIMBER us Krysten Cohn MD LAB BLOOD ORDERABLES Final Result [facility] [place] [address] * (ABNORMAL) CBC with auto differential (03/06/2024 10:05 PM TRIMMER CLIMBER) WBC 15.1(H) 3.8 - 9.9 K/cumm Hgb 8.8(L) 11.9 - 15.5 g/dL [facility] Hct 27.9(L) 35.6 - 45.5 % [facility] Plt 338 150 - 400 K/cumm [facility] MPV 10.6 9.1 - 12.3 fL [facility] RBC 2.55(L) 3.90 - 5.20 M/cumm [facility] MCV 109.4(H) 81.3 - 96.4 fL [facility] MCH 34.5(H) 27.1 - 33.3 pg [facility] MCHC 31.5(L) 32.3 - 35.7 g/dL [facility] RDW CV 16.7(H) 11.1 - 14.9 % [facility] RDW SD 62.4(H) 35.7 - 48.1 fL [facility] NRBC abs 0.00 0.00 - 0.01 K/cumm [facility] Blood 03/06/2024 10:0 5 PM TRIMMER CLIMBER 03/06/2024 11:52 PM TRIMMER CLIMBER us Krysten Cohn MD LAB BLOOD ORDERABLES Final Result Performing Organization Address [facility] de Phone Number [facility] [place] [address] * Phosphorus (03/06/2024 10:05 PM TRIMMER CLIMBER) Pathologist [facility] Phosphorus, pl 2.3 2.3 - 4.5 mg/dL Blood 03/06/2024 10:0 5 PM TRIMMER CLIMBER 03/06/2024 11:51 PM TRIMMER CLIMBER us Krysten Cohn MD LAB BLOOD ORDERABLES Final Result Performing Organization Address [facility] de Phone Number [facility] [place] [address] * Magnesium (03/06/2024 10:05 PM TRIMMER CLIMBER) [facility] Magnesium 1.5 1.4 - 2.5 mg/dL Blood 03/06/2024 10:0 5 PM TRIMMER CLIMBER 03/06/2024 11:51 PM TRIMMER CLIMBER Krysten Cohn MD LAB BLOOD ORDERABLES Final Result Performing Organization Address [facility] [place] [address] * (ABNORMAL) Comprehensive metabolic panel (03/06/2024 10:05 PM TRIMMER CLIMBER) Pathologist [facility] Sodium 139 135 - 145 mmol/L Potassium, pl 3.6 3.3 - 4.9 mmol/L [facility] Chloride 100 97 - 110 mmol/L [facility] CO2 28 22 - 32 mmol/L [facility] Anion gap 11 2 - 15 mmol/L [facility] BUN 15 6 - 25 mg/dL [facility] Creatinine 0.72 0.60 - 1.10 mg/dL [facility] Glucose 87 70 - 199 mg/dL [facility] Comment: Interpretive Data Fasting glucose >/= [...] 2022. Calcium 8.2(L) 8.5 - 10.3 mg/dL [facility] Bilirubin, total 0.8 0.1 - 1.2 mg/dL [facility] Protein, pl 6.2(L) 6.5 - 8.5 g/dL [facility] Albumin 2.9(L) 3.5 - 5.0 g/dL [facility] Alk phos 235(H) 40 - 130 Units/L [facility] ALT 19 7 - 45 Units/L [facility] AST 51(H) 10 - 45 Units/L [facility] Blood 03/06/2024 10:0 5 PM TRIMMER CLIMBER 03/06/2024 11:51 PM TRIMMER CLIMBER us Krysten Cohn MD LAB BLOOD ORDERABLES Final Result Performing Organization Address City/[facility]/ZIP Co de Phone Number [facility] Department [place] [address] * POCT glucose (03/06/2024 7:31 PM TRIMMER CLIMBER) [facility] Glucose, POC 123 70 - 199 mg/dL Blood 03/06/2024 7:31 PM TRIMMER CLIMBER 03/06/2024 7:31 PM TRIMMER CLIMBER Krysten Cohn MD LAB POCT ORDERABLES - DEVICE Final Result [facility] [place] [address] * POCT glucose (03/06/2024 5:46 PM TRIMMER CLIMBER) Glucose, POC 91 70 - 199 mg/dL Blood 03/06/2024 5:46 PM TRIMMER CLIMBER 03/06/2024 5:46 PM TRIMMER CLIMBER us Krysten Cohn MD LAB POCT ORDERABLES - DEVICE Final Result Performing Organization Address [facility] [place] [address] * POCT glucose (03/06/2024 11:42 AM TRIMMER CLIMBER) Glucose, POC 99 70 - 199 mg/dL Blood 03/06/2024 11:4 2 AM TRIMMER CLIMBER 03/06/2024 11:42 AM TRIMMER CLIMBER us Krysten Cohn MD LAB POCT ORDERABLES - DEVICE Final Result Performing Organization Address [facility] Co de Phone Number [facility] [place] [address] * POCT glucose (03/06/2024 8:47 AM TRIMMER CLIMBER) Glucose, POC 89 70 - 199 mg/dL Blood 03/06/2024 8:47 AM TRIMMER CLIMBER 03/06/2024 8:47 AM TRIMMER CLIMBER us Krysten Cohn MD LAB POCT ORDERABLES - DEVICE Final Result Performing Organization Address [facility] [place] [address] * Protime-INR (03/05/2024 10:53 PM TRIMMER CLIMBER) PT 12.7 9.7 - 13.0 sec INR 1.17 0.90 - 1.20 [facility] Comment: Interpretive data Oral anticoagulant therapeutic ranges: Venous thromboembolism prophylaxis or treatment: 2.0-3.0 CARDIOLOGY Standard range: 2.0-3.0 High-intensity range: 2.5-3.5 Refer to indication-specific guidelines for appropriate target ranges for prosthetic heart valve replacement. Current interpretive data was last revised on 2019. Blood 03/05/2024 10:5 3 PM TRIMMER CLIMBER 03/05/2024 11:20 PM TRIMMER CLIMBER Nolvia Renner MD LAB BLOOD ORDERABLES F inal Result Performing Organization Address City/[facility]/ZIP Co de Phone Number [facility] [place] [address] * POCT glucose (03/05/2024 8:00 PM TRIMMER CLIMBER) Pathologist [facility] Glucose, POC 105 70 - 199 mg/dL Blood 03/05/2024 8:0 0 PM TRIMMER CLIMBER 03/05/2024 8:00 PM TRIMMER CLIMBER Krystne Cohn MD LAB POCT ORDERABLES - DEVICE Final Result Performing Organization Address City/[facility] Co de Phone Number [facility] [place] [address] * eGFR (03/05/2024 7:52 PM TRIMMER CLIMBER) Pathologist [facility] eGFR >90 >=60 mL/min/1. 73 m2 Comment: [...] last reviewed 2021. Blood 03/05/2024 7:52 PM TRIMMER CLIMBER 03/05/2024 10:21 PM TRIMMER CLIMBER us Krysten Cohn MD LAB BLOOD ORDERABLES Final Result [facility] [place] [address] * (ABNORMAL) Differential, auto (03/05/2024 7:52 PM TRIMMER CLIMBER) Neutrophil abs 12.6(H) 1.5 - 6.5 K/cumm Imm gran abs 0.8(H) 0.0 - 0.1 K/cumm [facility] Lymphocyte abs 2.4 0.8 - 3.3 K/cumm [facility] [facility] Monocyte abs 0.9(H) 0.2 - 0.8 K/cumm [facility] Eosinophil abs 0.1 0.0 - 0.5 K/cumm [facility] Basophil abs 0.1 0.0 - 0.1 K/cumm [facility] Neutrophil pct 74.5 % [facility] Comment: Interpretive Data Percent cell count reference ranges are not reported, since discordance with absolute values may lead to misinterpretation of CBC data. Current Interpretive Data was last revised on 2017. Imm gran pct 4.7 % [facility] Comment: Interpretive Data Percent cell count reference ranges are not reported, since discordance with absolute values may lead to misinterpretation of CBC data. Current Interpretive Data was last revised on 2017. Lymphocyte pct 14.2 % [facility] Comment: Interpretive Data Percent cell count reference ranges are not reported, since discordance with absolute values may lead to misinterpretation of CBC data. Current Interpretive Data was last revised on 2017. Monocyte pct 5.4 % [facility] Comment: Interpretive Data Percent cell count reference ranges are not reported, since discordance with absolute values may lead to misinterpretation of CBC data. Current Interpretive Data was last revised on 2017. Eosinophil pct 0.7 % [facility] Comment: Interpretive Data Percent cell count reference ranges are not reported, since discordance with absolute values may lead to misinterpretation of CBC data. Current Interpretive Data was last revised on 2017. Basophil pct 0.5 % [facility] Comment: Interpretive Data Percent cell count reference ranges are not reported, since discordance with absolute values may lead to misinterpretation of CBC data. Current Interpretive Data was last revised on 2017. Blood 03/05/2024 7:52 PM TRIMMER CLIMBER 03/05/2024 10:23 PM TRIMMER CLIMBER us Krysten Cohn MD LAB BLOOD ORDERABLES Final Result [facility] [place] [address] * (ABNORMAL) CBC with auto differential (03/05/2024 7:52 PM TRIMMER CLIMBER) WBC 16.9(H) 3.8 - 9.9 K/cumm Hgb 9.2(L) 11.9 - 15.5 g/dL [facility] Hct 28.9(L) 35.6 - 45.5 % [facility] Plt 364 150 - 400 K/cumm [facility] MPV 10.8 9.1 - 12.3 fL [facility] RBC 2.67(L) 3.90 - 5.20 M/cumm [facility] MCV 108.2(H) 81.3 - 96.4 fL [facility] MCH 34.5(H) 27.1 - 33.3 pg [facility] MCHC 31.8(L) 32.3 - 35.7 g/dL [facility] RDW CV 16.8(H) 11.1 - 14.9 % [facility] RDW SD 61.3(H) 35.7 - 48.1 fL [facility] NRBC abs 0.03(H) 0.00 - 0.01 K/cumm [facility] Blood 03/05/2024 7:52 PM TRIMMER CLIMBER 03/05/2024 10:23 PM TRIMMER CLIMBER us Krysten Cohn MD LAB BLOOD ORDERABLES Final Result Performing Organization Address [facility] de Phone Number [facility] [place] [address] * Phosphorus (03/05/2024 7:52 PM TRIMMER CLIMBER) [facility] Phosphorus, pl 2.3 2.3 - 4.5 mg/dL Blood 03/05/2024 7:52 PM TRIMMER CLIMBER 03/05/2024 10:21 PM TRIMMER CLIMBER us Krysten Cohn MD LAB BLOOD ORDERABLES Final Result Performing Organization Address [facility] de Phone Number [facility] [place] [address] * Magnesium (03/05/2024 7:52 PM TRIMMER CLIMBER) [facility] Magnesium 1.5 1.4 - 2.5 mg/dL Blood 03/05/2024 7:52 PM TRIMMER CLIMBER 03/05/2024 10:21 PM TRIMMER CLIMBER Krysten Cohn MD LAB BLOOD ORDERABLES Final Result Performing Organization Address [facility] [place] [address] * (ABNORMAL) Comprehensive metabolic panel (03/05/2024 7:52 PM TRIMMER CLIMBER) [facility] Sodium 142 135 - 145 mmol/L Potassium, pl 3.4 3.3 - 4.9 mmol/L [facility] Chloride 99 97 - 110 mmol/L [facility] CO2 29 22 - 32 mmol/L [facility] Anion gap 14 2 - 15 mmol/L [facility] BUN 18 6 - 25 mg/dL [facility] Creatinine 0.68 0.60 - 1.10 mg/dL [facility] Glucose 96 70 - 199 mg/dL [facility] Comment: Interpretive Data Fasting glucose >/= [...] 2022. Calcium 8.1(L) 8.5 - 10.3 mg/dL [facility] Bilirubin, total 0.9 0.1 - 1.2 mg/dL [facility] Protein, pl 6.5 6.5 - 8.5 g/dL [facility] Albumin 3.2(L) 3.5 - 5.0 g/dL [facility] Alk phos 267(H) 40 - 130 Units/L [facility] ALT 40 7 - 45 Units/L [facility] AST 78(H) 10 - 45 Units/L [facility] Blood 03/05/2024 7:52 PM TRIMMER CLIMBER 03/05/2024 10:21 PM TRIMMER CLIMBER us Krysten Cohn MD LAB BLOOD ORDERABLES Final Result Performing Organization Address City/State/[facility] Co de Phone Number [facility] Department [place] [address] * POCT glucose (03/05/2024 5:07 PM TRIMMER CLIMBER) [facility] Glucose, POC 100 70 - 199 mg/dL Blood 03/05/2024 5:07 PM TRIMMER CLIMBER 03/05/2024 5:07 PM TRIMMER CLIMBER Krysten Cohn MD LAB POCT ORDERABLES - DEVICE Final Result Performing Organization Address City/[facility]/ZIP Co de Phone Number [facility] [place] [address] * POCT glucose (03/05/2024 11:39 AM TRIMMER CLIMBER) Glucose, POC 121 70 - 199 mg/dL Blood 03/05/2024 11:3 9 AM TRIMMER CLIMBER 03/05/2024 11:39 AM TRIMMER CLIMBER us Krysten Cohn MD LAB POCT ORDERABLES - DEVICE Final Result Performing Organization Address [facility] Co de Phone Number [facility] [place] [address] * POCT glucose (03/05/2024 8:03 AM TRIMMER CLIMBER) Glucose, POC 119 70 - 199 mg/dL Blood 03/05/2024 8:03 AM TRIMMER CLIMBER 03/05/2024 8:03 AM TRIMMER CLIMBER us Krysten Cohn MD LAB POCT ORDERABLES - DEVICE Final Result Performing Organization Address [facility] Co de Phone Number [facility] [place] [address] * eGFR (2024 10:39 PM TRIMMER CLIMBER) eGFR >90 >=60 mL/min/1. 73 m2 Comment: [...] reviewed 2021. Blood 2024 10:3 9 PM TRIMMER CLIMBER 2024 11:44 PM TRIMMER CLIMBER us Krysten Cohn MD LAB BLOOD ORDERABLES Final Result [facility] [place] [address] * (ABNORMAL) Differential, auto (2024 10:39 PM TRIMMER CLIMBER) Neutrophil abs 12.9(H) 1.5 - 6.5 K/cumm Imm gran abs 1.3(H) 0.0 - 0.1 K/cumm [facility] Lymphocyte abs 2.3 0.8 - 3.3 K/cumm [facility] Monocyte abs 1.0(H) 0.2 - 0.8 K/cumm [facility] Eosinophil abs 0.1 0.0 - 0.5 K/cumm [facility] Basophil abs 0.1 0.0 - 0.1 K/cumm [facility] Neutrophil pct 73.1 % [facility] Comment: Interpretive Data Percent cell count reference ranges are not reported, since discordance with absolute values may lead to misinterpretation of CBC data. Current Interpretive Data was last revised on 2017. Imm gran pct 7.4 % [facility] Comment: Interpretive Data Percent cell count reference ranges are not reported, since discordance with absolute values may lead to misinterpretation of CBC data. Current Interpretive Data was last revised on 2017. Lymphocyte pct 12.8 % [facility] Comment: Interpretive Data Percent cell count reference ranges are not reported, since discordance with absolute values may lead to misinterpretation of CBC data. Current Interpretive Data was last revised on 2017. Monocyte pct 5.4 % [facility] Comment: Interpretive Data Percent cell count reference ranges are not reported, since discordance with absolute values may lead to misinterpretation of CBC data. Current Interpretive Data was last revised on 2017. Eosinophil pct 0.7 % [facility] Comment: Interpretive Data Percent cell count reference ranges are not reported, since discordance with absolute values may lead to misinterpretation of CBC data. Current Interpretive Data was last revised on 2017. Basophil pct 0.6 % [facility] Comment: Interpretive Data Percent cell count reference ranges are not reported, since discordance with absolute values may lead to misinterpretation of CBC data. Current Interpretive Data was last revised on 2017. Blood 2024 10:3 9 PM TRIMMER CLIMBER 2024 11:44 PM TRIMMER CLIMBER us Krysten Cohn MD LAB BLOOD ORDERABLES Final Result [facility] [place] [address] * (ABNORMAL) CBC with auto differential (2024 10:39 PM TRIMMER CLIMBER) WBC 17.6(H) 3.8 - 9.9 K/cumm Hgb 8.6(L) 11.9 - 15.5 g/dL [facility] Hct 27.3(L) 35.6 - 45.5 % [facility] Plt 305 150 - 400 K/cumm [facility] MPV 10.6 9.1 - 12.3 fL [facility] RBC 2.51(L) 3.90 - 5.20 M/cumm [facility] MCV 108.8(H) 81.3 - 96.4 fL [facility] MCH 34.3(H) 27.1 - 33.3 pg [facility] MCHC 31.5(L) 32.3 - 35.7 g/dL [facility] RDW CV 16.6(H) 11.1 - 14.9 % [facility] RDW SD 60.0(H) 35.7 - 48.1 fL [facility] NRBC abs 0.06(H) 0.00 - 0.01 K/cumm [facility] Blood 2024 10:3 9 PM TRIMMER CLIMBER 2024 11:44 PM TRIMMER CLIMBER Krysten Cohn MD LAB BLOOD ORDERABLES Final Result Performing Organization Address [facility] de Phone Number [facility] [place] [address] * Protime-INR (2024 10:39 PM TRIMMER CLIMBER) PT 11.8 9.7 - 13.0 sec INR 1.09 0.90 - 1.20 [facility] Comment: Interpretive data Oral anticoagulant therapeutic ranges: Venous thromboembolism prophylaxis or treatment: 2.0-3.0 CARDIOLOGY Standard range: 2.0-3.0 High-intensity range: 2.5-3.5 Refer to indication-specific guidelines for appropriate target ranges for prosthetic heart valve replacement. Current interpretive data was last revised on 2019. Blood 2024 10:3 9 PM TRIMMER CLIMBER 03/05/2024 12:06 AM TRIMMER CLIMBER Krysten Cohn MD LAB BLOOD ORDERABLES Final Result Performing Organization Address [facility] de Phone Number [facility] [place] [address] * Phosphorus (2024 10:39 PM TRIMMER CLIMBER) Pathologist [facility] Phosphorus, pl 2.3 2.3 - 4.5 mg/dL Blood 2024 10:3 9 PM TRIMMER CLIMBER 2024 11:44 PM TRIMMER CLIMBER Krysten Cohn MD LAB BLOOD ORDERABLES Final Result Performing Organization Address [facility] de Phone Number [facility] [place] [address] * (ABNORMAL) Magnesium (2024 10:39 PM TRIMMER CLIMBER) Magnesium 1.3(L) 1.4 - 2.5 mg/dL Blood 2024 10:3 9 PM TRIMMER CLIMBER 2024 11:44 PM TRIMMER CLIMBER us Krysten Cohn MD LAB BLOOD ORDERABLES Final Result [facility] [place] [address] * (ABNORMAL) Comprehensive metabolic panel (2024 10:39 PM TRIMMER CLIMBER) Pathologist [facility] Sodium 140 135 - 145 mmol/L Potassium, pl 3.2(L) 3.3 - 4.9 mmol/L [facility] Chloride 100 97 - 110 mmol/L [facility] CO2 28 22 - 32 mmol/L [facility] Anion gap 12 2 - 15 mmol/L [facility] BUN 18 6 - 25 mg/dL [facility] Creatinine 0.63 0.60 - 1.10 mg/dL [facility] Glucose 112 70 - 199 mg/dL [facility] Comment: Interpretive Data Fasting glucose >/= [...] 2022. Calcium 8.0(L) 8.5 - 10.3 mg/dL [facility] Bilirubin, total 0.9 0.1 - 1.2 mg/dL [facility] Protein, pl 6.1(L) 6.5 - 8.5 g/dL [facility] Albumin 2.7(L) 3.5 - 5.0 g/dL [facility] Alk phos 235(H) 40 - 130 Units/L [facility] ALT 28 7 - 45 Units/L [facility] AST 110(H) 10 - 45 Units/L [facility] Blood 2024 10:3 9 PM TRIMMER CLIMBER 2024 11:44 PM TRIMMER CLIMBER Krysten Cohn MD LAB BLOOD ORDERABLES Final Result Performing Organization Address [facility] Co de Phone Number [facility] [place] [address] * POCT glucose (2024 8:09 PM TRIMMER CLIMBER) Glucose, POC 102 70 - 199 mg/dL Blood 2024 8:09 PM TRIMMER CLIMBER 2024 8:09 PM TRIMMER CLIMBER us Krysten Cohn MD LAB POCT ORDERABLES - DEVICE Final Result Performing Organization Address [facility] Co de Phone Number [facility] [place] [address] * POCT glucose (2024 4:43 PM TRIMMER CLIMBER) Glucose, POC 91 70 - 199 mg/dL Blood 2024 4:43 PM TRIMMER CLIMBER 2024 4:43 PM TRIMMER CLIMBER Krysten Cohn MD LAB POCT ORDERABLES - DEVICE Final Result Performing Organization Address [facility] Co de Phone Number [facility] [place] [address] * POCT glucose (2024 12:06 PM TRIMMER CLIMBER) Glucose, POC 133 70 - 199 mg/dL Blood 2024 12:0 6 PM TRIMMER CLIMBER 2024 12:06 PM TRIMMER CLIMBER us Krysten Cohn MD LAB POCT ORDERABLES - DEVICE Final Result [facility] [place] [address] * POCT glucose (2024 8:37 AM TRIMMER CLIMBER) Glucose, POC 141 70 - 199 mg/dL Blood 2024 8:37 AM TRIMMER CLIMBER 2024 8:37 AM TRIMMER CLIMBER us Krysten Cohn MD LAB POCT ORDERABLES - DEVICE Final Result Performing Organization Address [facility] Co de Phone Number [facility] [place] [address] * eGFR (03/03/2024 10:26 PM TRIMMER CLIMBER) eGFR >90 >=60 mL/min/1. 73 m2 Comment: [...] reviewed 2021. Blood 03/03/2024 10:2 6 PM TRIMMER CLIMBER 2024 12:35 AM TRIMMER CLIMBER us Krysten Cohn MD LAB BLOOD ORDERABLES Final Result Performing Organization Address [facility]/ZIP Co de Phone Number [facility] [place] [address] * (ABNORMAL) CBC with auto differential (03/03/2024 10:26 PM TRIMMER CLIMBER) [facility] WBC 18.2(H) 3.8 - 9.9 K/cumm Hgb 8.3(L) 11.9 - 15.5 g/dL [facility] Hct 25.7(L) 35.6 - 45.5 % [facility] Plt 276 150 - 400 K/cumm [facility] MPV 10.8 9.1 - 12.3 fL [facility] RBC 2.44(L) 3.90 - 5.20 M/cumm [facility] MCV 105.3(H) 81.3 - 96.4 fL [facility] MCH 34.0(H) 27.1 - 33.3 pg [facility] MCHC 32.3 32.3 - 35.7 g/dL [facility] RDW CV 15.8(H) 11.1 - 14.9 % [facility] RDW SD 59.4(H) 35.7 - 48.1 fL [facility] NRBC abs 0.19(H) 0.00 - 0.01 K/cumm [facility] Blood 03/03/2024 10:2 6 PM TRIMMER CLIMBER 2024 1:21 AM TRIMMER CLIMBER Krysten Cohn MD LAB BLOOD ORDERABLES Final Result Performing Organization Address City/[facility]/ZIP Co de Phone Number [facility] [place] [address] * (ABNORMAL) Manual Differential (03/03/2024 10:26 PM TRIMMER CLIMBER) Pathologist [facility] Differential Manual Cells Counted 116 [facility] Neutrophil abs 14.0(H) 1.5 - 6.5 K/cumm [facility] Imm gran abs 0.8(H) 0.0 - 0.1 K/cumm [facility] Lymphocyte abs 2.5 0.8 - 3.3 K/cumm [facility] Monocyte abs 0.8 0.2 - 0.8 K/cumm [facility] Basophil abs 0.2(H) 0.0 - 0.1 K/cumm [facility] Neutrophil pct 76.7 % [facility] Comment: Interpretive Data Percent cell count reference ranges are not reported, since discordance with absolute values may lead to misinterpretation of CBC data. Current Interpretive Data was last revised on 2017. Lymphocyte pct 13.8 % [facility] Comment: Interpretive Data Percent cell count reference ranges are not reported, since discordance with absolute values may lead to misinterpretation of CBC data. Current Interpretive Data was last revised on 2017. Monocyte pct 4.3 % [facility] Comment: Interpretive Data Percent cell count reference ranges are not reported, since discordance with absolute values may lead to misinterpretation of CBC data. Current Interpretive Data was last revised on 2017. Basophil pct 0.9 % [facility] Comment: Interpretive Data Percent cell count reference ranges are not reported, since discordance with absolute values may lead to misinterpretation of CBC data. Current Interpretive Data was last revised on 2017. Myelocyte pct 4.3 % [facility] RBC morphology Present(A) [facility] Anisocytosis Marked(A) [facility] Macrocytes > 15/HPF(A) [facility] Platelet estimate Adequate [facility] Blood 03/03/2024 10:2 6 PM TRIMMER CLIMBER 2024 1:25 AM TRIMMER CLIMBER us Krysten Cohn MD LAB BLOOD ORDERABLES Final Result [facility] [place] [address] * Protime-INR (03/03/2024 10:26 PM TRIMMER CLIMBER) PT 12.2 9.7 - 13.0 sec INR 1.13 0.90 - 1.20 [facility] Comment: Interpretive data Oral anticoagulant therapeutic ranges: Venous thromboembolism prophylaxis or treatment: 2.0-3.0 CARDIOLOGY Standard range: 2.0-3.0 High-intensity range: 2.5-3.5 Refer to indication-specific guidelines for appropriate target ranges for prosthetic heart valve replacement. Current interpretive data was last revised on 2019. Blood 03/03/2024 10:2 6 PM TRIMMER CLIMBER 2024 12:35 AM TRIMMER CLIMBER us Krysten Cohn MD LAB BLOOD ORDERABLES Final Result Performing Organization Address City/[facility] Co de Phone Number [facility] [place] [address] * (ABNORMAL) Phosphorus (03/03/2024 10:26 PM TRIMMER CLIMBER) Phosphorus, pl 2.2(L) 2.3 - 4.5 mg/dL Blood 03/03/2024 10:2 6 PM TRIMMER CLIMBER 2024 12:35 AM TRIMMER CLIMBER us Krysten Cohn MD LAB BLOOD ORDERABLES Final Result Performing Organization Address [facility] Co de Phone Number [facility] [place] [address] * Magnesium (03/03/2024 10:26 PM TRIMMER CLIMBER) Magnesium 1.5 1.4 - 2.5 mg/dL Blood 03/03/2024 10:2 6 PM TRIMMER CLIMBER 2024 12:35 AM TRIMMER CLIMBER us Krysten Cohn MD LAB BLOOD ORDERABLES Final Result Performing Organization Address [facility] Co de Phone Number [facility] [place] [address] * (ABNORMAL) Comprehensive metabolic panel (03/03/2024 10:26 PM TRIMMER CLIMBER) Sodium 143 135 - 145 mmol/L Potassium, pl 3.5 3.3 - 4.9 mmol/L [facility] Chloride 102 97 - 110 mmol/L [facility] CO2 28 22 - 32 mmol/L [facility] Anion gap 13 2 - 15 mmol/L [facility] BUN 28(H) 6 - 25 mg/dL [facility] Creatinine 0.68 0.60 - 1.10 mg/dL [facility] Glucose 103 70 - 199 mg/dL [facility] Comment: Interpretive Data Fasting glucose >/= [...] 2022. Calcium 8.0(L) 8.5 - 10.3 mg/dL [facility] Bilirubin, total 0.7 0.1 - 1.2 mg/dL [facility] Protein, pl 5.9(L) 6.5 - 8.5 g/dL [facility] Albumin 2.7(L) 3.5 - 5.0 g/dL [facility] Alk phos 216(H) 40 - 130 Units/L [facility] ALT 42 7 - 45 Units/L [facility] AST 202(H) 10 - 45 Units/L [facility] Blood 03/03/2024 10:2 6 PM TRIMMER CLIMBER 2024 12:35 AM TRIMMER CLIMBER us Krysten Cohn MD LAB BLOOD ORDERABLES Final Result [facility] Department [place] [address] * POCT glucose (03/03/2024 8:17 PM TRIMMER CLIMBER) Glucose, POC 146 70 - 199 mg/dL Blood 03/03/2024 8:17 PM TRIMMER CLIMBER 03/03/2024 8:17 PM TRIMMER CLIMBER Krysten Cohn MD LAB POCT ORDERABLES - DEVICE Final Result [facility] [place] [address] * XR Chest 1 View (03/03/2024 7:14 PM TRIMMER CLIMBER) Anatomical Region Laterality Modality Body, Chest N/A Computed Radiogr aphy 2024 11:3 2 AM TRIMMER CLIMBER Impressions 2024 11:32 AM TRIMMER CLIMBER Comparison 02/23/2024 5:17 PM. Right internal jugular central venous catheter has been removed. Minimal right basilar atelectasis or scarring again seen. Mild elevation the right hemidiaphragm again noted. The lungs otherwise are clear without focal consolidation or pulmonary edema. No pneumothorax or pleural effusion seen. Electronically signed by: Nolberto Garsia M.D. Narrative 2024 11:32 AM TRIMMER CLIMBER EXAMINATION: 1 view chest radiograph Procedure Note [...] seen. Electronically signed by: Nolberto Garsia M.D. Krysten Cohn MD IMG XR PROCEDURES Fin al Result * POCT glucose (03/03/2024 5:47 PM TRIMMER CLIMBER) Glucose, POC 120 70 - 199 mg/dL Blood 03/03/2024 5:47 PM TRIMMER CLIMBER 03/03/2024 5:47 PM TRIMMER CLIMBER Krysten Cohn MD LAB POCT ORDERABLES - DEVICE Final Result Performing Organization Address [facility] Co de Phone Number [facility] [place] [address] * POCT glucose (03/03/2024 12:17 PM TRIMMER CLIMBER) Glucose, POC 149 70 - 199 mg/dL Blood 03/03/2024 12:1 7 PM TRIMMER CLIMBER 03/03/2024 12:17 PM TRIMMER CLIMBER us Krysten Cohn MD LAB POCT ORDERABLES - DEVICE Final Result Performing Organization Address [facility] Co de Phone Number [facility] [place] [address] * POCT glucose (03/03/2024 8:09 AM TRIMMER CLIMBER) Glucose, POC 118 70 - 199 mg/dL Blood 03/03/2024 8:09 AM TRIMMER CLIMBER 03/03/2024 8:09 AM TRIMMER CLIMBER us Krysten Cohn MD LAB POCT ORDERABLES - DEVICE Final Result Performing Organization Address [facility] Co de Phone Number [facility] [place] [address] * POCT glucose (03/02/2024 11:51 PM TRIMMER CLIMBER) Glucose, POC 112 70 - 199 mg/dL Blood 03/02/2024 11:5 1 PM TRIMMER CLIMBER 03/02/2024 11:51 PM TRIMMER CLIMBER us Krysten Cohn MD LAB POCT ORDERABLES - DEVICE Final Result Performing Organization Address City/[facility] Co de Phone Number [facility] [place] [address] * Critical Care (03/02/2024 9:58 PM TRIMMER CLIMBER) Narrative Gloria Schwarz MD - 03/02/2024 9:58 PM TRIMMER CLIMBER Gloria Schwarz MD 03/02/2024 9:59 PM Critical [...] plan with the patient's team and other medical/configuration management consultant staff. This time was in addition to and separate from care provided by other practitioners on this day of service. us Gloria Schwarz MD IN CLINIC/BEDSIDE ORDER [place] Final Result * Wound Care (03/02/2024 9:07 PM TRIMMER CLIMBER) Narrative Nafisa Sanchez MD - 03/02/2024 9:07 PM TRIMMER CLIMBER Nafisa Sanchez MD 03/02/2024 9:27 PM Wound Care Date/Time: 03/02/2024 9:07 PM Performed by: Nafisa Sanchez MD Authorized by: Nafisa Sanchez MD Consent: Consent obtained: Written Consent given by: Patient Risks, benefits, and alternatives were discussed: yes Risks discussed: Bleeding, infection and incomplete drainage Alternatives discussed: Delayed treatment and no treatment [place] protocol: Procedure explained and questions answered to [...] Dressing: Packing/drain action: new packing Dressing applied: [employer] Post-procedure details: Procedure completion: Tolerated Comments: Devitalized [...] - Final * Protime-INR (03/02/2024 8:45 PM TRIMMER CLIMBER) PT 12.6 9.7 - 13.0 sec INR 1.16 0.90 - 1.20 [facility] Comment: Interpretive data Oral anticoagulant therapeutic ranges: Venous thromboembolism prophylaxis or treatment: 2.0-3.0 CARDIOLOGY Standard range: 2.0-3.0 High-intensity range: 2.5-3.5 Refer to indication-specific guidelines for appropriate target ranges for prosthetic heart valve replacement. Current interpretive data was last revised on 2019. Blood 03/02/2024 8:45 PM TRIMMER CLIMBER 03/02/2024 9:00 PM TRIMMER CLIMBER us Krysten Cohn MD LAB BLOOD ORDERABLES Final Result [facility] Department [place] [address] * POCT glucose (03/02/2024 8:01 PM TRIMMER CLIMBER) Glucose, POC 107 70 - 199 mg/dL Blood 03/02/2024 8:01 PM TRIMMER CLIMBER 03/02/2024 8:01 PM TRIMMER CLIMBER us Krysten Cohn MD LAB POCT ORDERABLES - DEVICE Final Result Performing Organization Address [facility] Co de Phone Number [facility] [place] [address] * eGFR (03/02/2024 7:12 PM TRIMMER CLIMBER) Pathologist [facility] eGFR 67 >=60 mL/min/1. 73 m2 Comment: [...] last reviewed 2021. Blood 03/02/2024 7:12 PM TRIMMER CLIMBER 03/02/2024 7:25 PM TRIMMER CLIMBER us Krysten Cohn MD LAB BLOOD ORDERABLES Final Result Performing Organization Address [facility] Co de Phone Number [facility] [place] [address] * (ABNORMAL) Differential, auto (03/02/2024 7:12 PM TRIMMER CLIMBER) Neutrophil abs 13.0(H) 1.5 - 6.5 K/cumm Imm gran abs 3.0(H) 0.0 - 0.1 K/cumm [facility] Lymphocyte abs 2.3 0.8 - 3.3 K/cumm [facility] Monocyte abs 1.3(H) 0.2 - 0.8 K/cumm [facility] Eosinophil abs 0.1 0.0 - 0.5 K/cumm [facility] Basophil abs 0.1 0.0 - 0.1 K/cumm [facility] Neutrophil pct 65.9 % [facility] Comment: Confirmed by smear review Interpretive Data Percent cell count reference ranges are not reported, since discordance with absolute values may lead to misinterpretation of CBC data. Current Interpretive Data was last revised on 2017. Imm gran pct 15.1 % [facility] Comment: Interpretive Data Percent cell count reference ranges are not reported, since discordance with absolute values may lead to misinterpretation of CBC data. Current Interpretive Data was last revised on 2017. Lymphocyte pct 11.6 % [facility] Comment: Interpretive Data Percent cell count reference ranges are not reported, since discordance with absolute values may lead to misinterpretation of CBC data. Current Interpretive Data was last revised on 2017. Monocyte pct 6.6 % [facility] Comment: Interpretive Data Percent cell count reference ranges are not reported, since discordance with absolute values may lead to misinterpretation of CBC data. Current Interpretive Data was last revised on 2017. Eosinophil pct 0.4 % [facility] Comment: Interpretive Data Percent cell count reference ranges are not reported, since discordance with absolute values may lead to misinterpretation of CBC data. Current Interpretive Data was last revised on 2017. Basophil pct 0.4 % [facility] Comment: Interpretive Data Percent cell count reference ranges are not reported, since discordance with absolute values may lead to misinterpretation of CBC data. Current Interpretive Data was last revised on 2017. Blood 03/02/2024 7:12 PM TRIMMER CLIMBER 03/02/2024 7:25 PM TRIMMER CLIMBER us Krysten Cohn MD LAB BLOOD ORDERABLES Final Result [facility] [place] [address] * (ABNORMAL) CBC with auto differential (03/02/2024 7:12 PM TRIMMER CLIMBER) WBC 19.6(H) 3.8 - 9.9 K/cumm Hgb 8.9(L) 11.9 - 15.5 g/dL [facility] Hct 27.5(L) 35.6 - 45.5 % [facility] Plt 219 150 - 400 K/cumm [facility] MPV 10.7 9.1 - 12.3 fL [facility] RBC 2.64(L) 3.90 - 5.20 M/cumm [facility] MCV 104.2(H) 81.3 - 96.4 fL [facility] MCH 33.7(H) 27.1 - 33.3 pg [facility] MCHC 32.4 32.3 - 35.7 g/dL [facility] RDW CV 15.5(H) 11.1 - 14.9 % [facility] RDW SD 58.7(H) 35.7 - 48.1 fL [facility] NRBC abs 0.43(H) 0.00 - 0.01 K/cumm [facility] Blood 03/02/2024 7:12 PM TRIMMER CLIMBER 03/02/2024 7:25 PM TRIMMER CLIMBER us Krysten Cohn MD LAB BLOOD ORDERABLES Final Result Performing Organization Address City/[facility] Co de Phone Number [facility] [place] [address] * Phosphorus (03/02/2024 7:12 PM TRIMMER CLIMBER) Pathologist [facility] Phosphorus, pl 2.6 2.3 - 4.5 mg/dL Blood 03/02/2024 7:12 PM TRIMMER CLIMBER 03/02/2024 7:25 PM TRIMMER CLIMBER Krysten Cohn MD LAB BLOOD ORDERABLES Final Result Performing Organization Address City/[facility] Co de Phone Number [facility] [place] [address] * Magnesium (03/02/2024 7:12 PM TRIMMER CLIMBER) Magnesium 2.2 1.4 - 2.5 mg/dL Blood 03/02/2024 7:12 PM TRIMMER CLIMBER 03/02/2024 7:25 PM TRIMMER CLIMBER us Krysten Cohn MD LAB BLOOD ORDERABLES Final Result [facility] [place] [address] * (ABNORMAL) Comprehensive metabolic panel (03/02/2024 7:12 PM TRIMMER CLIMBER) Pathologist [facility] Sodium 139 135 - 145 mmol/L Potassium, pl 3.5 3.3 - 4.9 mmol/L [facility] Chloride 97 97 - 110 mmol/L [facility] CO2 30 22 - 32 mmol/L [facility] Anion gap 12 2 - 15 mmol/L [facility] BUN 39(H) 6 - 25 mg/dL [facility] Creatinine 1.00 0.60 - 1.10 mg/dL [facility] Glucose 140 70 - 199 mg/dL [facility] Comment: Interpretive Data Fasting glucose >/= [...] 2022. Calcium 8.2(L) 8.5 - 10.3 mg/dL [facility] Bilirubin, total 0.7 0.1 - 1.2 mg/dL [facility] Protein, pl 6.0(L) 6.5 - 8.5 g/dL [facility] Albumin 2.9(L) 3.5 - 5.0 g/dL [facility] Alk phos 259(H) 40 - 130 Units/L [facility] ALT 77(H) 7 - 45 Units/L [facility] AST 512(H) 10 - 45 Units/L [facility] Blood 03/02/2024 7:12 PM TRIMMER CLIMBER 03/02/2024 7:25 PM TRIMMER CLIMBER us Krysten Cohn MD LAB BLOOD ORDERABLES Final Result Performing Organization Address City/State/[facility] Co de Phone Number [facility] [place] [address] * XR Chest 1 View (03/02/2024 5:39 PM TRIMMER CLIMBER) Anatomical Region Laterality Modality Body, Chest N/A Computed Radiogr aphy 03/02/2024 7:36 PM TRIMMER CLIMBER Impressions 03/02/2024 7:36 PM TRIMMER CLIMBER The current study is compared with the prior radiograph dated 03/01/2024. Right internal jugular central venous catheter tip projects over the superior vena cava. The lungs are clear. There is no focal consolidation, pleural effusion, or pulmonary edema. There is no pneumothorax. Heart size and mediastinal contours are normal. Electronically signed by: Panda Vasquez MD, PHD Narrative 03/02/2024 7:36 PM TRIMMER CLIMBER EXAMINATION: 1 view chest radiograph Procedure Note [...] Result * Critical Care (03/02/2024 5:11 PM TRIMMER CLIMBER) Narrative Luis Alberto Maya MD PhD - 03/02/2024 5:11 PM TRIMMER CLIMBER Luis Alberto Maya MD PhD 03/02/2024 5:13 [...] plan with the ICU team and other medical/configuration management consultant staff, making frequent assessments and decisions [...] Result * POCT glucose (03/02/2024 3:14 PM TRIMMER CLIMBER) Glucose, POC 129 70 - 199 mg/dL Blood 03/02/2024 3:14 PM TRIMMER CLIMBER 03/02/2024 3:14 PM TRIMMER CLIMBER us Krysten Cohn MD LAB POCT ORDERABLES - DEVICE Final Result [facility] [place] [address] * eGFR (03/02/2024 2:19 PM TRIMMER CLIMBER) eGFR 68 >=60 mL/min/1. 73 m2 Comment: [...] last reviewed 2021. Blood 03/02/2024 2:19 PM TRIMMER CLIMBER 03/02/2024 2:34 PM TRIMMER CLIMBER Fatmata Golden NP LAB BLOOD ORDERABLES Final Result Performing Organization Address [facility] Co de Phone Number [facility] [place] [address] * Phosphorus (03/02/2024 2:19 PM TRIMMER CLIMBER) Pathologist [facility] Phosphorus, pl 2.4 2.3 - 4.5 mg/dL Blood 03/02/2024 2:19 PM TRIMMER CLIMBER 03/02/2024 2:34 PM TRIMMER CLIMBER Fatmata Golden LAB BLOOD ORDERABLES Final Result Performing Organization Address [facility] Co de Phone Number [facility] [place] [address] * Magnesium (03/02/2024 2:19 PM TRIMMER CLIMBER) Pathologist [facility] Magnesium 1.9 1.4 - 2.5 mg/dL Blood 03/02/2024 2:19 PM TRIMMER CLIMBER 03/02/2024 2:34 PM TRIMMER CLIMBER Fatmata Va Golden [employer]OVERNMENT TEACHER LAB BLOOD ORDERABLES Final Result Performing Organization Address City/[facility]/ZIP Co de Phone Number [facility] [place] [address] * (ABNORMAL) Basic metabolic panel (03/02/2024 2:19 PM TRIMMER CLIMBER) Pathologist [facility] Sodium 140 135 - 145 mmol/L Potassium, pl 3.5 3.3 - 4.9 mmol/L [facility] Chloride 98 97 - 110 mmol/L [facility] CO2 29 22 - 32 mmol/L [facility] Anion gap 13 2 - 15 mmol/L [facility] BUN 40(H) 6 - 25 mg/dL [facility] Creatinine 0.98 0.60 - 1.10 mg/dL [facility] Glucose 133 70 - 199 mg/dL [facility] Comment: Interpretive Data Fasting glucose >/= [...] 2022. Calcium 8.3(L) 8.5 - 10.3 mg/dL [facility] Blood 03/02/2024 2:19 PM TRIMMER CLIMBER 03/02/2024 2:34 PM TRIMMER CLIMBER Fatmata Golden GOVERNMENT TEACHER LAB BLOOD ORDERABLES Final Result Performing Organization Address City/[facility] Co de Phone Number [facility] [place] [address] * POCT glucose (03/02/2024 11:11 AM TRIMMER CLIMBER) Glucose, POC 106 70 - 199 mg/dL Blood 03/02/2024 11:1 1 AM TRIMMER CLIMBER 03/02/2024 11:11 AM TRIMMER CLIMBER us Krysten Cohn MD LAB POCT ORDERABLES - DEVICE Final Result Performing Organization Address City/[facility]/ZIP Co de Phone Number [facility] [place] [address] * (ABNORMAL) Blood gas, venous (03/02/2024 8:14 AM TRIMMER CLIMBER) pH, Venous 7.47(H) 7.32 - 7.43 PCO2, Venous 36(L) 40 - 50 mmHg [facility] PO2, Venous 36 mmHg [facility] Comment: Interpretive Data No Reference Range Established Current Interpretive Data was last revised on 2017. HCO3 Venous, Calculated 27 20 - 30 mmol/L [facility] BE, venous 3 mmol/L [facility] Comment: Interpretive Data No Reference Range Established Current Interpretive Data was last revised on 2017. Blood 03/02/2024 8:14 AM TRIMMER CLIMBER 03/02/2024 8:20 AM TRIMMER CLIMBER us Krysten Cohn MD LAB BLOOD ORDERABLES Final Result [facility] [place] [address] * POCT glucose (03/02/2024 7:19 AM TRIMMER CLIMBER) Glucose, POC 116 70 - 199 mg/dL Blood 03/02/2024 7:19 AM TRIMMER CLIMBER 03/02/2024 7:19 AM TRIMMER CLIMBER us Krysten Cohn MD LAB POCT ORDERABLES - DEVICE Final Result Performing Organization Address [facility]/ZIP Co de Phone Number [facility] [place] [address] * (ABNORMAL) Pro B-type natriuretic peptide (03/02/2024 5:12 AM TRIMMER CLIMBER) NT-proBNP 22,554(H) <=300 pg/mL Comment: Interpretive Comments: [...] Revised Date: 2017. Blood 03/02/2024 5:12 AM TRIMMER CLIMBER 03/02/2024 5:34 AM TRIMMER CLIMBER us Angelica ADAMS LAB BLOOD ORDERABLE S Final Result Performing Organization Address [facility]/ZIP Co de Phone Number [facility] [place] [address] * POCT glucose (03/02/2024 3:09 AM TRIMMER CLIMBER) Glucose, POC 107 70 - 199 mg/dL Blood 03/02/2024 3:09 AM TRIMMER CLIMBER 03/02/2024 3:09 AM TRIMMER CLIMBER us Krysten Cohn MD LAB POCT ORDERABLES - DEVICE Final Result [facility] [place] [address] * Critical Care (03/01/2024 11:50 PM TRIMMER CLIMBER) Narrative Gloria Schwarz MD - 03/01/2024 11:50 PM TRIMMER CLIMBER Gloria Schwarz MD 03/01/2024 11:53 PM Critical [...] plan with the ICU team and other medical/configuration management consultant staff, making frequent assessments and decisions [...] Result * POCT glucose (03/01/2024 11:14 PM TRIMMER CLIMBER) Glucose, POC 133 70 - 199 mg/dL Blood 03/01/2024 11:1 4 PM TRIMMER CLIMBER 03/01/2024 11:14 PM TRIMMER CLIMBER us Krysten Cohn MD LAB POCT ORDERABLES - DEVICE Final Result Performing Organization Address City/State/[facility] Co de Phone Number [facility] [place] [address] * (ABNORMAL) eGFR (03/01/2024 8:36 PM TRIMMER CLIMBER) eGFR 58(L) >=60 mL/min/1. 73 m2 Comment: [...] last reviewed 2021. Blood 03/01/2024 8:36 PM TRIMMER CLIMBER 03/01/2024 10:04 PM TRIMMER CLIMBER us Krysten Cohn MD LAB BLOOD ORDERABLES Final Result [facility] [place] [address] * (ABNORMAL) Differential, auto (03/01/2024 8:36 PM TRIMMER CLIMBER) Neutrophil abs 12.5(H) 1.5 - 6.5 K/cumm Imm gran abs 3.1(H) 0.0 - 0.1 K/cumm [facility] Lymphocyte abs 2.4 0.8 - 3.3 K/cumm [facility] Monocyte abs 1.6(H) 0.2 - 0.8 K/cumm [facility] Eosinophil abs 0.1 0.0 - 0.5 K/cumm [facility] Basophil abs 0.1 0.0 - 0.1 K/cumm [facility] Neutrophil pct 63.5 % [facility] Comment: Interpretive Data Percent cell count reference ranges are not reported, since discordance with absolute values may lead to misinterpretation of CBC data. Current Interpretive Data was last revised on 2017. Imm gran pct 15.9 % [facility] Comment: Interpretive Data Percent cell count reference ranges are not reported, since discordance with absolute values may lead to misinterpretation of CBC data. Current Interpretive Data was last revised on 2017. Lymphocyte pct 12.0 % [facility] Comment: Interpretive Data Percent cell count reference ranges are not reported, since discordance with absolute values may lead to misinterpretation of CBC data. Current Interpretive Data was last revised on 2017. Monocyte pct 8.0 % [facility] Comment: Interpretive Data Percent cell count reference ranges are not reported, since discordance with absolute values may lead to misinterpretation of CBC data. Current Interpretive Data was last revised on 2017. Eosinophil pct 0.3 % [facility] Comment: Interpretive Data Percent cell count reference ranges are not reported, since discordance with absolute values may lead to misinterpretation of CBC data. Current Interpretive Data was last revised on 2017. Basophil pct 0.3 % [facility] Comment: Interpretive Data Percent cell count reference ranges are not reported, since discordance with absolute values may lead to misinterpretation of CBC data. Current Interpretive Data was last revised on 2017. Blood 03/01/2024 8:36 PM TRIMMER CLIMBER 03/01/2024 9:58 PM TRIMMER CLIMBER Krysten Cohn MD LAB BLOOD ORDERABLES Final Result Performing Organization Address [facility] de Phone Number [facility] [place] [address] * (ABNORMAL) CBC with auto differential (03/01/2024 8:36 PM TRIMMER CLIMBER) WBC 19.6(H) 3.8 - 9.9 K/cumm Hgb 8.8(L) 11.9 - 15.5 g/dL [facility] Hct 27.6(L) 35.6 - 45.5 % [facility] Plt 163 150 - 400 K/cumm [facility] MPV 10.8 9.1 - 12.3 fL [facility] RBC 2.66(L) 3.90 - 5.20 M/cumm [facility] MCV 103.8(H) 81.3 - 96.4 fL [facility] MCH 33.1 27.1 - 33.3 pg [facility] MCHC 31.9(L) 32.3 - 35.7 g/dL [facility] RDW CV 15.4(H) 11.1 - 14.9 % [facility] RDW SD 57.7(H) 35.7 - 48.1 fL [facility] NRBC abs 0.10(H) 0.00 - 0.01 K/cumm [facility] Blood 03/01/2024 8:36 PM TRIMMER CLIMBER 03/01/2024 9:58 PM TRIMMER CLIMBER us Krysten Cohn MD LAB BLOOD ORDERABLES Final Result Performing Organization Address [facility] Co de Phone Number [facility] [place] [address] * (ABNORMAL) Protime-INR (03/01/2024 8:36 PM TRIMMER CLIMBER) PT 18.4(H) 9.7 - 13.0 sec INR 1.69(H) 0.90 - 1.20 [facility] Comment: Interpretive data Oral anticoagulant therapeutic ranges: Venous thromboembolism prophylaxis or treatment: 2.0-3.0 CARDIOLOGY Standard range: 2.0-3.0 High-intensity range: 2.5-3.5 Refer to indication-specific guidelines for appropriate target ranges for prosthetic heart valve replacement. Current interpretive data was last revised on 2019. Blood 03/01/2024 8:36 PM TRIMMER CLIMBER 03/01/2024 10:01 PM TRIMMER CLIMBER Krysten Cohn MD LAB BLOOD ORDERABLES Final Result Performing Organization Address City/[facility] Co de Phone Number [facility] [place] [address] * (ABNORMAL) Phosphorus (03/01/2024 8:36 PM TRIMMER CLIMBER) Pathologist [facility] Phosphorus, pl 1.9(L) 2.3 - 4.5 mg/dL Blood 03/01/2024 8:36 PM TRIMMER CLIMBER 03/01/2024 9:56 PM TRIMMER CLIMBER Krysten Cohn MD LAB BLOOD ORDERABLES Final Result Performing Organization Address City/[facility] Co de Phone Number [facility] [place] [address] * Magnesium (03/01/2024 8:36 PM TRIMMER CLIMBER) Magnesium 1.6 1.4 - 2.5 mg/dL Blood 03/01/2024 8:36 PM TRIMMER CLIMBER 03/01/2024 9:56 PM TRIMMER CLIMBER Krysten Cohn MD LAB BLOOD ORDERABLES Final Result Performing Organization Address City/[facility] Co de Phone Number [facility] [place] [address] * Blood gas, venous (03/01/2024 8:36 PM TRIMMER CLIMBER) pH, Venous 7.42 7.32 - 7.43 PCO2, Venous 44 40 - 50 mmHg [facility] PO2, Venous 35 mmHg [facility] Comment: Interpretive Data No Reference Range Established Current Interpretive Data was last revised on 2017. HCO3 Venous, Calculated 30 20 - 30 mmol/L [facility] BE, venous 4 mmol/L [facility] Comment: Interpretive Data No Reference Range Established Current Interpretive Data was last revised on 2017. Blood 03/01/2024 8:36 PM TRIMMER CLIMBER 03/01/2024 10:07 PM TRIMMER CLIMBER us Krysten Cohn MD LAB BLOOD ORDERABLES Final Result [facility] [place] [address] * (ABNORMAL) Comprehensive metabolic panel (03/01/2024 8:36 PM TRIMMER CLIMBER) Pathologist [facility] Sodium 139 135 - 145 mmol/L Potassium, pl 3.4 3.3 - 4.9 mmol/L [facility] Chloride 99 97 - 110 mmol/L [facility] CO2 28 22 - 32 mmol/L [facility] Anion gap 12 2 - 15 mmol/L [facility] BUN 39(H) 6 - 25 mg/dL [facility] Creatinine 1.12(H) 0.60 - 1.10 mg/dL [facility] Glucose 114 70 - 199 mg/dL [facility] Comment: Interpretive Data Fasting glucose >/= [...] 2022. Calcium 8.6 8.5 - 10.3 mg/dL [facility] Bilirubin, total 0.7 0.1 - 1.2 mg/dL [facility] Protein, pl 6.0(L) 6.5 - 8.5 g/dL [facility] Albumin 2.6(L) 3.5 - 5.0 g/dL [facility] Alk phos 270(H) 40 - 130 Units/L [facility] ALT 65(H) 7 - 45 Units/L [facility] AST 440(H) 10 - 45 Units/L [facility] Blood 03/01/2024 8:36 PM TRIMMER CLIMBER 03/01/2024 9:56 PM TRIMMER CLIMBER us Krysten Cohn MD LAB BLOOD ORDERABLES Final Result [facility] [place] [address] * XR Chest 1 View (03/01/2024 7:53 PM TRIMMER CLIMBER) Anatomical Region Laterality Modality Body, Chest N/A Computed Radiogr aphy 03/02/2024 7:36 AM TRIMMER CLIMBER Impressions 03/02/2024 11:01 AM TRIMMER CLIMBER The current study is compared with the [...] Nolberto Garsia M.D. Narrative 03/02/2024 11:01 AM TRIMMER CLIMBER EXAMINATION: 1 view chest radiograph Procedure Note [...] Result * POCT glucose (03/01/2024 7:11 PM TRIMMER CLIMBER) Pathologist [facility] Glucose, POC 111 70 - 199 mg/dL Blood 03/01/2024 7:11 PM TRIMMER CLIMBER 03/01/2024 7:11 PM TRIMMER CLIMBER us Krysten Cohn MD LAB POCT ORDERABLES - DEVICE Final Result [facility] [place] [address] * (ABNORMAL) Troponin I high-sensitivity 6-hour (03/01/2024 4:21 PM TRIMMER CLIMBER) Pathologist [facility] Trop I hs 255(C) <=17 ng/L Comment: Previous critical value noted within 48 hours ago. Interpretive Data For further hscTnI resources including the diagnostic algorithm and an aid in interpretation, copy and paste this link: [email or web address].testcatalog.org/show/[email or web address] Current Interpretive Data last revised 2019. Trop I hs pct delta -22(C) % [facility] Trop I hs interp Significa nt(C) [facility] Blood 03/01/2024 4:21 PM TRIMMER CLIMBER 03/01/2024 4:33 PM TRIMMER CLIMBER Krysten Cohn MD LAB BLOOD ORDERABLES Final Result Performing Organization Address [facility] [facility] Co de Phone Number [facility] [place] [address] * (ABNORMAL) Blood gas, venous (03/01/2024 4:21 PM TRIMMER CLIMBER) pH, Venous 7.43 7.32 - 7.43 PCO2, Venous 45 40 - 50 mmHg [facility] PO2, Venous 29 mmHg [facility] Comment: Interpretive Data No Reference Range Established Current Interpretive Data was last revised on 2017. HCO3 Venous, Calculated 31(H) 20 - 30 mmol/L [facility] BE, venous 5 mmol/L [facility] Comment: Interpretive Data No Reference Range Established Current Interpretive Data was last revised on 2017. Blood 03/01/2024 4:21 PM TRIMMER CLIMBER 03/01/2024 4:29 PM TRIMMER CLIMBER us Krysten Cohn MD LAB BLOOD ORDERABLES Final Result Performing Organization Address [facility] Co de Phone Number [facility] [place] [address] * POCT glucose (03/01/2024 3:18 PM TRIMMER CLIMBER) Glucose, POC 155 70 - 199 mg/dL Blood 03/01/2024 3:18 PM TRIMMER CLIMBER 03/01/2024 3:18 PM TRIMMER CLIMBER Krysten Cohn MD LAB POCT ORDERABLES - DEVICE Final Result Performing Organization Address [facility] Co de Phone Number [facility] [place] [address] * TRANSTHORACIC ECHO (TTE) LIMITED/FOLLOW UP W LTD DOPPLER/CF W CONTRAST (03/01/2024 3:04 PM TRIMMER CLIMBER) LV EF 47 % CARDIOREPORT Anatomical Region Laterality Modality Ultrasound 03/01/2024 2:45 PM TRIMMER CLIMBER Narrative 03/01/2024 4:11 PM TRIMMER CLIMBER Patient name: Nolvia Branch Date of test: 03/01/2024 Type of test: TTE w/Doppler Hospital #: 0 Date of : 1970 (F) Revenue Research Analyst: Behzad Contreras RDCS Referring Physician: KRYSTEN COHN MD Contrast Agent: 1.1 ml Optison Administered, (1.9 ml wasted). Contrast Administered by: Supervised/Interpreted by: Ang Aguilar MD Diagnosis: sob Location: [facility] Reason for test: elevated troponin MV [...] 2=Hypo 3=Akinetic 4=Dyskin./Aneurysm 0=Not visualized) Parasternal Long [place]:MAS=1 BAS=1 MIL=1 COY=1 Parasternal Short [place]:MAS=1 MIS=1 IL=2 MIL=1 MAL=1 MA=1 Apical 4 Chambers:=1 MIS=1 BIS=2 BAL=1 MAL=1 AL=1 AC=1 Apical 2 Chambers:AI=1 IL=2 BI=2 BA=1 MA=1 AA=1 AC=1 LV Global Longitudinal Strain: -13% (Normal <-17%) RV Global Longitudinal Strain: LV Function: Mild Segmental reduction in LV Ejection Fraction (EF=41-51%); via modified Tapia's. RV Function: Normal Septal Motion: paradoxic Pericardial Effusion: small Atrial Septum: Normal DOPPLER/COLOR FLOW DOPPLER RESULTS: Diastolic Function: Pseudo normal Tricuspid Valve: mild TV regurgitation Pulmonic Valve: Mild WV AV Regurgitation: No AR seen AV Stenosis: AV Area: cm2 AV Pressure Gradient (mmHg): Mean: 0, Peak:0 MV Regurgitation: Mild MR MV Stenosis: MV Area: cm2 MV Pressure Gradient (mmHg): Mean: 0 MV ERO: cm Regurg. Vol.: ml/beat Regurg. Frac.: % PA Pressure: mmHg DOPPLER/COLOR FOLOW DOPPLER COMMENTS: No AR seen, Mild MR, mild TV regurgitation, Mild WV. Diastolic function: Pseudo normal CONTRAST: 1.1 ml [...] MD By signing this report, the attending rn complex care certifies that he or she has personally supervised and interpreted the echocardiogram and has reviewed and or edited and agrees with the written comments contained within the report. Procedure Note Ang Aguilar MD PhD - 03/01/2024 Patient name: Nolvia Branch Date of test: 03/01/2024 Type of test: TTE w/Doppler [facility] #: 0 Date of : 1970 (F) Revenue Research Analyst: Behzad Contreras RDCS Referring Physician: KRYSTEN COHN MD Contrast Agent: 1.1 ml Optison Administered, (1.9 ml wasted). Contrast Administered by: Supervised/Interpreted by: Ang Aguilar MD Diagnosis: sob Location: [facility] Reason for test: elevated troponin MV [...] 2=Hypo 3=Akinetic 4=Dyskin./Aneurysm 0=Not visualized) Parasternal Long [place]:MAS=1 BAS=1 MIL=1 COY=1 Parasternal Short [place]:MAS=1 MIS=1 IL=2 MIL=1 MAL=1 MA=1 Apical 4 Chambers:=1 MIS=1 BIS=2 BAL=1 MAL=1 AL=1 AC=1 Apical 2 Chambers:AI=1 IL=2 BI=2 BA=1 MA=1 AA=1 AC=1 LV Global Longitudinal Strain: -13% (Normal <-17%) RV Global Longitudinal Strain: LV Function: Mild Segmental reduction in LV Ejection Fraction (EF=41-51%); via modified Tapia's. RV Function: Normal Septal Motion: paradoxic Pericardial Effusion: small Atrial Septum: Normal DOPPLER/COLOR FLOW DOPPLER RESULTS: Diastolic Function: Pseudo normal Tricuspid Valve: mild TV regurgitation Pulmonic Valve: Mild WV AV Regurgitation: No AR seen AV Stenosis: AV Area: cm2 AV Pressure Gradient (mmHg): Mean: 0, Peak:0 MV Regurgitation: Mild MR MV Stenosis: MV Area: cm2 MV Pressure Gradient (mmHg): Mean: 0 MV ERO: cm Regurg. Vol.: ml/beat Regurg. Frac.: % PA Pressure: mmHg DOPPLER/COLOR FOLOW DOPPLER COMMENTS: No AR seen, Mild MR, mild TV regurgitation, Mild WV. Diastolic function: Pseudo normal CONTRAST: 1.1 ml [...] MD By signing this report, the attending rn complex care certifies that he or she has personally supervised and interpreted the echocardiogram and has reviewed and or edited and agrees with the written comments contained within the report. us Krysten Cohn MD CV ECHO PROCEDURES Fi nal Result * (ABNORMAL) Troponin I high-sensitivity 4-hour (03/01/2024 2:26 PM TRIMMER CLIMBER) Trop I hs 263(C) <=17 ng/L Comment: Previous critical value noted within 48 hours ago. Interpretive Data For further [facility] resources including the diagnostic algorithm and an aid in interpretation, copy and paste this link: https://bjhlab.testcatalog.org/show/[email or web address] Current Interpretive Data last revised 2019. Trop I hs pct delta -20(C) % [facility] Trop I hs interp Significa nt(C) [facility] Blood 03/01/2024 2:26 PM TRIMMER CLIMBER 03/01/2024 2:40 PM TRIMMER CLIMBER Krysten Cohn MD LAB BLOOD ORDERABLES Final Result Performing Organization Address [facility] de Phone Number [facility] [place] [address] * (ABNORMAL) Troponin I high-sensitivity 2-hour (03/01/2024 1:21 PM TRIMMER CLIMBER) Trop I hs 294(C) <=17 ng/L Comment: Previous critical value noted within 48 hours ago. Interpretive Data For further hscTnI resources including the diagnostic algorithm and an aid in interpretation, copy and paste this link: https://bjhlab.testcatalog.org/show/[email or web address] Current Interpretive Data last revised 2019. Trop I hs pct delta -11(C) % [facility] Comment:Previous critical va lue noted within 48 hours ago. Trop I hs interp Significa nt(C) [facility] Comment:Previous critical va lue noted within 48 hours ago. Blood 03/01/2024 1:21 PM TRIMMER CLIMBER 03/01/2024 1:35 PM TRIMMER CLIMBER us Krysten Cohn MD LAB BLOOD ORDERABLES Final Result Performing Organization Address [facility] de Phone Number [facility] [place] [address] * US RUQ (03/01/2024 1:10 PM TRIMMER CLIMBER) Anatomical Region Laterality Modality Abdomen N/A Ultrasound 03/01/2024 1:34 PM TRIMMER CLIMBER Impressions 03/01/2024 2:38 PM TRIMMER CLIMBER 1. Limited examination due to limited acoustic windows from patient positioning. 2. Hepatic steatosis. 3. Cholelithiasis. Dictated by: Jeremi Horn MD The radiology attending physician has personally reviewed this study, and had reviewed and/or edited this written report and agrees with it. Electronically signed by: Too Armenta M.D. Narrative 03/01/2024 2:38 PM TRIMMER CLIMBER EXAMINATION: PORTABLE LIMITED ABDOMINAL SONOGRAM HISTORY: Elevated [...] it. Electronically signed by: Too Armenta M.D. Angelica ADAMS IMG US PROCEDURES F inal Result * Critical Care (03/01/2024 12:57 PM TRIMMER CLIMBER) Narrative Comfort, Amjad, MD - 03/01/2024 12:57 PM TRIMMER CLIMBER Andrez Moyer MD 03/01/2024 6:13 PM Critical [...] plan with the ICU team and other medical/configuration management consultant staff, making frequent assessments and decisions [...] Result * POCT glucose (03/01/2024 11:17 AM TRIMMER CLIMBER) Glucose, POC 158 70 - 199 mg/dL Blood 03/01/2024 11:1 7 AM TRIMMER CLIMBER 03/01/2024 11:17 AM TRIMMER CLIMBER us Krysten Cohn MD LAB POCT ORDERABLES - DEVICE Final Result [facility] [place] [address] * (ABNORMAL) Troponin I high-sensitivity series (baseline, 2hr, 4hr, 6hr) (03/01/2024 10:29 AM TRIMMER CLIMBER) Trop I hs 329(C) <=17 ng/L Comment: Verified Interpretive Data For further hscTnI resources including the diagnostic algorithm and an aid in interpretation, copy and paste this link: https://bjhlab.testcatalog.org/show/[email or web address] Current Interpretive Data last revised 2019. Blood 03/01/2024 10:2 9 AM TRIMMER CLIMBER 03/01/2024 11:47 AM TRIMMER CLIMBER us Krysten Cohn MD LAB BLOOD ORDERABLES Final Result [facility] [place] [address] * Critical result callback Cardio chemistry (03/01/2024 10:29 AM TRIMMER CLIMBER) Date Notified [id number] Time Notified 1229 [facility] Test name Trop I hs base [facility] Called/Read Back Arianna Barcenas [facility] Credentials RN [facility] Called By RIK SALVADOR [facility] Blood 03/01/2024 10:2 9 AM TRIMMER CLIMBER 03/01/2024 11:47 AM TRIMMER CLIMBER us Krysten Cohn MD LAB BLOOD ORDERABLES Final Result [facility] [address] * (ABNORMAL) Creatine kinase (CK), total (03/01/2024 10:26 AM TRIMMER CLIMBER) CK 222(H) 30 - 200 Units/L Blood 03/01/2024 10:2 6 AM TRIMMER CLIMBER 03/01/2024 11:47 AM TRIMMER CLIMBER Angelica ADAMS LAB BLOOD ORDERABLE S Final Result Performing Organization Address City/[facility]/ZIP Co de Phone Number [facility] [place] [address] * Hepatitis panel, acute Blood (03/01/2024 10:23 AM TRIMMER CLIMBER) Hep A IgM Nonreactive Nonreactive Hep B core IgM Nonreactive Nonreactive [facility] Hep C Ab Nonreactive [facility] Comment:Antibodies to HCV no t detected. Does NOT exclude the possibility of recent exposure to HCV. Current interpretive data was last revised on 21 HepBsAg Nonreactive Nonreactive [facility] Blood 03/01/2024 10:2 3 AM TRIMMER CLIMBER 03/01/2024 11:47 AM TRIMMER CLIMBER Angelica ADAMS LAB MICROBIOLOGY - GENERAL ORDERABLES Final Result Performing Organization Address City/[facility]/ZIP Co de Phone Number [facility] [place] [address] * Lipase (03/01/2024 10:23 AM TRIMMER CLIMBER) Pathologist [facility] Lipase 40 10 - 99 Units/L Blood 03/01/2024 10:2 3 AM TRIMMER CLIMBER 03/01/2024 11:47 AM TRIMMER CLIMBER Angelica ADAMS LAB BLOOD ORDERABLE S Final Result Performing Organization Address City/[facility]/ZIP Co de Phone Number [facility] [place] [address] * (ABNORMAL) Gamma GT (03/01/2024 10:23 AM TRIMMER CLIMBER) GGT 216(H) 5 - 35 Units/L Blood 03/01/2024 10:2 3 AM TRIMMER CLIMBER 03/01/2024 11:47 AM TRIMMER CLIMBER us Angelica ADAMS LAB BLOOD ORDERABLE S Final Result [facility] [place] [address] * (ABNORMAL) eGFR (03/01/2024 7:41 AM TRIMMER CLIMBER) eGFR 52(L) >=60 mL/min/1. 73 m2 Comment: [...] last reviewed 2021. Blood 03/01/2024 7:41 AM TRIMMER CLIMBER 03/01/2024 8:02 AM TRIMMER CLIMBER us Krysten Cohn MD LAB BLOOD ORDERABLES Final Result [facility] [address] * (ABNORMAL) Protime-INR (03/01/2024 7:41 AM TRIMMER CLIMBER) PT 24.8(H) 9.7 - 13.0 sec INR 2.26(H) 0.90 - 1.20 [facility] Comment: Interpretive data Oral anticoagulant therapeutic ranges: Venous thromboembolism prophylaxis or treatment: 2.0-3.0 CARDIOLOGY Standard range: 2.0-3.0 High-intensity range: 2.5-3.5 Refer to indication-specific guidelines for appropriate target ranges for prosthetic heart valve replacement. Current interpretive data was last revised on 2019. Blood 03/01/2024 7:41 AM TRIMMER CLIMBER 03/01/2024 7:53 AM TRIMMER CLIMBER Krysten Cohn MD LAB BLOOD ORDERABLES Final Result Performing Organization Address [facility] de Phone Number [facility] [place] [address] * Blood gas, venous (03/01/2024 7:41 AM TRIMMER CLIMBER) pH, Venous 7.40 7.32 - 7.43 PCO2, Venous 45 40 - 50 mmHg [facility] PO2, Venous 39 mmHg [facility] Comment: Interpretive Data No Reference Range Established Current Interpretive Data was last revised on 2017. HCO3 Venous, Calculated 28 20 - 30 mmol/L [facility] BE, venous 2 mmol/L [facility] Comment: Interpretive Data No Reference Range Established Current Interpretive Data was last revised on 2017. Blood 03/01/2024 7:41 AM TRIMMER CLIMBER 03/01/2024 7:46 AM TRIMMER CLIMBER Krysten Cohn MD LAB BLOOD ORDERABLES Final Result Performing Organization Address [facility] de Phone Number [facility] [address] * (ABNORMAL) Comprehensive metabolic panel (03/01/2024 7:41 AM TRIMMER CLIMBER) Sodium 143 135 - 145 mmol/L Potassium, pl 3.7 3.3 - 4.9 mmol/L [facility] Chloride 104 97 - 110 mmol/L [facility] CO2 27 22 - 32 mmol/L [facility] Anion gap 12 2 - 15 mmol/L [facility] BUN 38(H) 6 - 25 mg/dL [facility] Creatinine 1.23(H) 0.60 - 1.10 mg/dL [facility] Glucose 159 70 - 199 mg/dL [facility] Comment: Interpretive Data Fasting glucose >/= [...] 2022. Calcium 8.3(L) 8.5 - 10.3 mg/dL [facility] Bilirubin, total 0.6 0.1 - 1.2 mg/dL [facility] Protein, pl 6.0(L) 6.5 - 8.5 g/dL [facility] Albumin 2.9(L) 3.5 - 5.0 g/dL [facility] Alk phos 275(H) 40 - 130 Units/L [facility] ALT 31 7 - 45 Units/L [facility] AST 222(H) 10 - 45 Units/L [facility] Blood 03/01/2024 7:41 AM TRIMMER CLIMBER 03/01/2024 8:02 AM TRIMMER CLIMBER us Krysten Cohn MD LAB BLOOD ORDERABLES Final Result [facility] [place] [address] * POCT glucose (03/01/2024 7:22 AM TRIMMER CLIMBER) [facility] Signature Glucose, POC 158 70 - 199 mg/dL Blood 03/01/2024 7:22 AM TRIMMER CLIMBER 03/01/2024 7:22 AM TRIMMER CLIMBER us Krysten Cohn MD LAB POCT ORDERABLES - DEVICE Final Result Performing Organization Address [facility] Co de Phone Number [facility] [place] [address] * (ABNORMAL) CBC with auto differential (03/01/2024 6:40 AM TRIMMER CLIMBER) Pathologist [facility] WBC 22.4(H) 3.8 - 9.9 K/cumm Hgb 9.0(L) 11.9 - 15.5 g/dL [facility] Hct 27.6(L) 35.6 - 45.5 % [facility] Plt 162 150 - 400 K/cumm [facility] MPV 10.5 9.1 - 12.3 fL [facility] RBC 2.63(L) 3.90 - 5.20 M/cumm [facility] MCV 104.9(H) 81.3 - 96.4 fL [facility] MCH 34.2(H) 27.1 - 33.3 pg [facility] MCHC 32.6 32.3 - 35.7 g/dL [facility] RDW CV 15.3(H) 11.1 - 14.9 % [facility] RDW SD 58.5(H) 35.7 - 48.1 fL [facility] NRBC abs 0.07(H) 0.00 - 0.01 K/cumm [facility] Blood 03/01/2024 6:40 AM TRIMMER CLIMBER 03/01/2024 6:53 AM TRIMMER CLIMBER Krysten Cohn MD LAB BLOOD ORDERABLES Final Result [facility] [place] [address] * (ABNORMAL) Manual Differential (03/01/2024 6:40 AM TRIMMER CLIMBER) Pathologist [facility] Differential Manual Cells Counted 122 [facility] Neutrophil abs 16.3(H) 1.5 - 6.5 K/cumm [facility] Imm gran abs 1.5(H) 0.0 - 0.1 K/cumm [facility] Lymphocyte abs 3.1 0.8 - 3.3 K/cumm [facility] Monocyte abs 1.5(H) 0.2 - 0.8 K/cumm [facility] Neutrophil pct 72.9 % [facility] Comment: Interpretive Data Percent cell count reference ranges are not reported, since discordance with absolute values may lead to misinterpretation of CBC data. Current Interpretive Data was last revised on 2017. Lymphocyte pct 13.9 % [facility] Comment: Interpretive Data Percent cell count reference ranges are not reported, since discordance with absolute values may lead to misinterpretation of CBC data. Current Interpretive Data was last revised on 2017. Monocyte pct 6.6 % [facility] Comment: Interpretive Data Percent cell count reference ranges are not reported, since discordance with absolute values may lead to misinterpretation of CBC data. Current Interpretive Data was last revised on 2017. Metamyelocyte pct 4.1 % [facility] Myelocyte pct 2.5 % [facility] Blood 03/01/2024 6:40 AM TRIMMER CLIMBER 03/01/2024 6:56 AM TRIMMER CLIMBER Krysten Cohn MD LAB BLOOD ORDERABLES Final Result Performing Organization Address City/[facility] Co de Phone Number [facility] [place] [address] * POCT glucose (03/01/2024 3:08 AM TRIMMER CLIMBER) [facility] Glucose, POC 140 70 - 199 mg/dL Blood 03/01/2024 3:08 AM TRIMMER CLIMBER 03/01/2024 3:08 AM TRIMMER CLIMBER Krysten Cohn MD LAB POCT ORDERABLES - DEVICE Final Result Performing Organization Address [facility] Co de Phone Number [facility] [place] [address] * Lactate (03/01/2024 12:11 AM TRIMMER CLIMBER) [facility] Lactate 1.7 0.7 - 2.0 mmol/L Blood 03/01/2024 12:1 1 AM TRIMMER CLIMBER 03/01/2024 12:41 AM TRIMMER CLIMBER us Krysten Cohn MD LAB BLOOD ORDERABLES Final Result Performing Organization Address [facility] Co de Phone Number [facility] [place] [address] * POCT glucose (02/29/2024 11:10 PM TRIMMER CLIMBER) Pathologist [facility] Glucose, POC 173 70 - 199 mg/dL Blood 02/29/2024 11:1 0 PM TRIMMER CLIMBER 02/29/2024 11:10 PM TRIMMER CLIMBER Krysten Cohn MD LAB POCT ORDERABLES - DEVICE Final Result Performing Organization Address [facility] de Phone Number [facility] [place] [address] * (ABNORMAL) eGFR (02/29/2024 10:33 PM TRIMMER CLIMBER) [facility] eGFR 52(L) >=60 mL/min/1. 73 m2 [...] reviewed 2021. Blood 02/29/2024 10:3 3 PM TRIMMER CLIMBER 02/29/2024 10:51 PM TRIMMER CLIMBER Krysten Cohn MD LAB BLOOD ORDERABLES Final Result Performing Organization Address [facility] Co de Phone Number [facility] [place] [address] * (ABNORMAL) Hemoglobin and hematocrit (02/29/2024 10:33 PM TRIMMER CLIMBER) Hgb 8.7(L) 11.9 - 15.5 g/dL Hct 26.9(L) 35.6 - 45.5 % [facility] Blood 02/29/2024 10:3 3 PM TRIMMER CLIMBER 02/29/2024 10:51 PM TRIMMER CLIMBER Krysten Cohn MD LAB BLOOD ORDERABLES Final Result Performing Organization Address [facility] de Phone Number [facility] [place] [address] * (ABNORMAL) Protime-INR (02/29/2024 10:33 PM TRIMMER CLIMBER) PT 24.0(H) 9.7 - 13.0 sec INR 2.19(H) 0.90 - 1.20 [facility] Comment: Interpretive data Oral anticoagulant therapeutic ranges: Venous thromboembolism prophylaxis or treatment: 2.0-3.0 CARDIOLOGY Standard range: 2.0-3.0 High-intensity range: 2.5-3.5 Refer to indication-specific guidelines for appropriate target ranges for prosthetic heart valve replacement. Current interpretive data was last revised on 2019. Blood 02/29/2024 10:3 3 PM TRIMMER CLIMBER 02/29/2024 10:54 PM TRIMMER CLIMBER Krysten Cohn MD LAB BLOOD ORDERABLES Final Result Performing Organization Address [facility] de Phone Number [facility] [place] [address] * (ABNORMAL) Blood gas, venous (02/29/2024 10:33 PM TRIMMER CLIMBER) pH, Venous 7.47(H) 7.32 - 7.43 PCO2, Venous 37(L) 40 - 50 mmHg [facility] PO2, Venous 38 mmHg [facility] Comment: Interpretive Data No Reference Range Established Current Interpretive Data was last revised on 2017. HCO3 Venous, Calculated 28 20 - 30 mmol/L [facility] BE, venous 3 mmol/L [facility] Comment: Interpretive Data No Reference Range Established Current Interpretive Data was last revised on 2017. Blood 02/29/2024 10:3 3 PM TRIMMER CLIMBER 02/29/2024 10:44 PM TRIMMER CLIMBER us Krysten Cohn MD LAB BLOOD ORDERABLES Final Result [facility] [place] [address] * (ABNORMAL) Comprehensive metabolic panel (02/29/2024 10:33 PM TRIMMER CLIMBER) Pathologist [facility] Sodium 141 135 - 145 mmol/L Potassium, pl 4.1 3.3 - 4.9 mmol/L [facility] Chloride 102 97 - 110 mmol/L [facility] CO2 25 22 - 32 mmol/L [facility] Anion gap 14 2 - 15 mmol/L [facility] BUN 32(H) 6 - 25 mg/dL [facility] Creatinine 1.23(H) 0.60 - 1.10 mg/dL [facility] Glucose 163 70 - 199 mg/dL [facility] Comment: Interpretive Data Fasting glucose >/= [...] Calcium 8.4(L) 8.5 - 10.3 mg/dL [facility] Bilirubin, total 0.8 0.1 - 1.2 mg/dL [facility] Protein, pl 6.2(L) 6.5 - 8.5 g/dL [facility] Albumin 2.4(L) 3.5 - 5.0 g/dL [facility] Alk phos 286(H) 40 - 130 Units/L [facility] ALT 23 7 - 45 Units/L [facility] AST 125(H) 10 - 45 Units/L [facility] Blood 02/29/2024 10:3 3 PM TRIMMER CLIMBER 02/29/2024 10:51 PM TRIMMER CLIMBER us Krysten Cohn MD LAB BLOOD ORDERABLES Final Result [facility] [place] [address] * Critical Care (02/29/2024 8:54 PM TRIMMER CLIMBER) Narrative Gabriel Tsang MD - 02/29/2024 8:54 PM TRIMMER CLIMBER Gabriel Tsang MD 03/01/2024 6:55 AM Critical [...] plan with the ICU team and other medical/configuration management consultant staff, making frequent assessments and decisions [...] Result * POCT glucose (02/29/2024 7:13 PM TRIMMER CLIMBER) Glucose, POC 141 70 - 199 mg/dL Blood 02/29/2024 7:13 PM TRIMMER CLIMBER 02/29/2024 7:13 PM TRIMMER CLIMBER us Krysten Cohn MD LAB POCT ORDERABLES - DEVICE Final Result [facility] [place] [address] * XR Chest 1 View (02/29/2024 6:29 PM TRIMMER CLIMBER) Anatomical Region Laterality Modality Body, Chest N/A Computed Radiogr aphy 03/01/2024 9:18 AM TRIMMER CLIMBER Impressions 03/01/2024 9:18 AM TRIMMER CLIMBER Comparison is made to chest radiograph dated 02/28/2024. Right internal jugular venous approach catheter tip overlies the right brachiocephalic vein. The patient is status post right shoulder arthroplasty. Unchanged right hemidiaphragm elevation with mild right basilar atelectasis. No left lung consolidation. No pleural effusion or pneumothorax. Stable cardiomediastinal silhouette. Electronically signed by: Minnie Rivera M.D. Narrative 03/01/2024 9:18 AM TRIMMER CLIMBER EXAMINATION: 1 view chest radiograph Procedure Note [...] silhouette. Electronically signed by: Minnie Rivera M.D. Krysten Cohn MD IMG XR PROCEDURES Fin al Result * (ABNORMAL) Lactate (02/29/2024 6:01 PM TRIMMER CLIMBER) Lactate 2.9(H) 0.7 - 2.0 mmol/L Blood 02/29/2024 6:01 PM TRIMMER CLIMBER 02/29/2024 6:15 PM TRIMMER CLIMBER us Krysten Cohn MD LAB BLOOD ORDERABLES Final Result [facility] [place] [address] * (ABNORMAL) Blood gas, venous (02/29/2024 6:01 PM TRIMMER CLIMBER) pH, Venous 7.46(H) 7.32 - 7.43 PCO2, Venous 36(L) 40 - 50 mmHg [facility] PO2, Venous 34 mmHg [facility] Comment: Interpretive Data No Reference Range Established Current Interpretive Data was last revised on 2017. HCO3 Venous, Calculated 26 20 - 30 mmol/L [facility] BE, venous 2 mmol/L [facility] Comment: Interpretive Data No Reference Range Established Current Interpretive Data was last revised on 2017. Blood 02/29/2024 6:01 PM TRIMMER CLIMBER 02/29/2024 6:10 PM TRIMMER CLIMBER us Krysten Cohn MD LAB BLOOD ORDERABLES Final Result [facility] [place] [address] * (ABNORMAL) POC Blood Gas and Chemistries, Venous - (02/29/2024 5:47 PM TRIMMER CLIMBER) pH, Morris POC 7.47(H) 7.32 - 7.43 pCO2, morris POC 35(L) 40 - 50 mmHg [facility] pO2, morris POC 40 mmHg [facility] Na, POC 141 135 - 145 mmol/L [facility] K POC 4.5 3.3 - 4.9 mmol/L [facility] Comment: Interpretive Data Not all point of care methods assess for hemolysis. Confirm with instrument and retest K+ if not consistent with clinical signs and symptoms. Current Interpretive Data was last revised on 2023. Cl, POC 104 97 - 110 mmol/L [facility] Ionized Ca, POC 4.52 4.50 - 5.10 mg/dL [facility] Glucose, POC 124 70 - 199 mg/dL [facility] Lactate, POC 2.6(H) 0.7 - 2.2 mmol/L [facility] O2 Sat, Morris POC (Angelica) 65 % [facility] Base excess, POC 1.9 mmol/L [facility] HCO3, Morris POC 26 20 - 30 mmol/L [facility] Hct, POC 30.0(L) 36.3 - 45.3 % [facility] Total Hb, POC 9.9(L) 11.9 - 15.5 g/dL [facility] Blood 02/29/2024 5:47 PM TRIMMER CLIMBER 02/29/2024 5:47 PM TRIMMER CLIMBER us Krysten Cohn MD LAB POCT ORDERABLES - DEVICE Final Result Performing Organization Address [facility] Co de Phone Number [facility] [place] [address] * POCT glucose (02/29/2024 3:25 PM TRIMMER CLIMBER) [facility] Glucose, POC 144 70 - 199 mg/dL Blood 02/29/2024 3:25 PM TRIMMER CLIMBER 02/29/2024 3:25 PM TRIMMER CLIMBER Krysten Cohn MD LAB POCT ORDERABLES - DEVICE Final Result Performing Organization Address [facility]/ZIP Co de Phone Number [facility] [place] [address] * Blood culture Blood (02/29/2024 2:52 PM TRIMMER CLIMBER) Report Final Report: No growth Blood 02/29/2024 2:52 PM TRIMMER CLIMBER 02/29/2024 3:07 PM TRIMMER CLIMBER Narrative MADELEINE DEY - 2024 4:00 PM TRIMMER CLIMBER Collection->Peripheral 1. Blood cultures are incubated for [...] performance characteristics have been verified by the [facility]. For questions about this culture, contact the Microbiology Laboratory at [phone]. Interpretive data was last revised on 23. Krysten Cohn MD LAB MICROBIOLOGY - [facility] ORDERABLES Final Result MADELEINE TERRY [facility] [place] [address] * Blood culture Blood (02/29/2024 2:52 PM TRIMMER CLIMBER) Report Final Report: No growth Blood 02/29/2024 2:52 PM TRIMMER CLIMBER 02/29/2024 3:07 PM TRIMMER CLIMBER Narrative MADELEINE DEY - 2024 4:00 PM TRIMMER CLIMBER Collection->Peripheral 1. Blood cultures are incubated for [...] performance characteristics have been verified by the [facility]. For questions about this culture, contact the Microbiology Laboratory at [phone]. Interpretive data was last revised on 23. Krysten Cohn MD LAB MICROBIOLOGY - [facility] ORDERABLES Final Result Performing Organization Address City/[facility]/ZIP Co de Phone Number [facility] [place] [address] * (ABNORMAL) Blood gas, venous (02/29/2024 2:22 PM TRIMMER CLIMBER) pH, Venous 7.42 7.32 - 7.43 PCO2, Venous 38(L) 40 - 50 mmHg [facility] PO2, Venous 34 mmHg [facility] Comment: Interpretive Data No Reference Range Established Current Interpretive Data was last revised on 2017. HCO3 Venous, Calculated 25 20 - 30 mmol/L [facility] BE, venous 0 mmol/L [facility] Comment: Interpretive Data No Reference Range Established Current Interpretive Data was last revised on 2017. Blood 02/29/2024 2:22 PM TRIMMER CLIMBER 02/29/2024 2:34 PM TRIMMER CLIMBER Krysten Cohn MD LAB BLOOD ORDERABLES Final Result MADELEINE [facility] [place] [address] * POCT glucose (02/29/2024 11:11 AM TRIMMER CLIMBER) Glucose, POC 102 70 - 199 mg/dL Blood 02/29/2024 11:1 1 AM TRIMMER CLIMBER 02/29/2024 11:11 AM TRIMMER CLIMBER us Krysten Cohn MD LAB POCT ORDERABLES - DEVICE Final Result Performing Organization Address City/[facility]/ZIP Co de Phone Number MADELEINE [facility] [place] [address] * eGFR (02/29/2024 10:58 AM TRIMMER CLIMBER) eGFR 63 >=60 mL/min/1. 73 m2 Comment: [...] reviewed 2021. Blood 02/29/2024 10:5 8 AM TRIMMER CLIMBER 02/29/2024 11:20 AM TRIMMER CLIMBER us Angelica ADAMS LAB BLOOD ORDERABLE S Final Result MADELEINE [facility] [place] [address] * (ABNORMAL) Blood gas, venous (02/29/2024 10:58 AM TRIMMER CLIMBER) pH, Venous 7.27(L) 7.32 - 7.43 PCO2, Venous 44 40 - 50 mmHg [facility] PO2, Venous 38 mmHg [facility] Comment: Interpretive Data No Reference Range Established Current Interpretive Data was last revised on 2017. HCO3 Venous, Calculated 21 20 - 30 mmol/L [facility] BE, venous -6 mmol/L [facility] Comment: Interpretive Data No Reference Range Established Current Interpretive Data was last revised on 2017. Blood 02/29/2024 10:5 8 AM TRIMMER CLIMBER 02/29/2024 11:03 AM TRIMMER CLIMBER us Krysten Cohn MD LAB BLOOD ORDERABLES Final Result Performing Organization Address City/State/[facility] Co de Phone Number [facility] [place] [address] * (ABNORMAL) Basic metabolic panel (02/29/2024 10:58 AM TRIMMER CLIMBER) Pathologist [facility] Sodium 140 135 - 145 mmol/L Potassium, pl 5.1(H) 3.3 - 4.9 mmol/L [facility] Chloride 99 97 - 110 mmol/L [facility] CO2 19(L) 22 - 32 mmol/L [facility] Anion gap 22(H) 2 - 15 mmol/L [facility] BUN 22 6 - 25 mg/dL [facility] Creatinine 1.05 0.60 - 1.10 mg/dL [facility] Glucose 99 70 - 199 mg/dL [facility] Comment: Interpretive Data Fasting glucose >/= [...] 2022. Calcium 8.7 8.5 - 10.3 mg/dL [facility] Blood 02/29/2024 10:5 8 AM TRIMMER CLIMBER 02/29/2024 11:20 AM TRIMMER CLIMBER Angelica ADAMS LAB BLOOD ORDERABLE S Final Result Performing Organization Address [facility] Co de Phone Number [facility] [place] [address] * eGFR (02/29/2024 8:19 AM TRIMMER CLIMBER) eGFR 78 >=60 mL/min/1. 73 m2 Comment: [...] last reviewed 2021. Blood 02/29/2024 8:19 AM TRIMMER CLIMBER 02/29/2024 8:36 AM TRIMMER CLIMBER us Krysten Cohn MD LAB BLOOD ORDERABLES Final Result Performing Organization Address City/[facility]/ZIP Co de Phone Number [facility] [place] [address] * (ABNORMAL) Protime-INR (02/29/2024 8:19 AM TRIMMER CLIMBER) PT 17.1(H) 9.7 - 13.0 sec INR 1.57(H) 0.90 - 1.20 [facility] Comment: Interpretive data Oral anticoagulant therapeutic ranges: Venous thromboembolism prophylaxis or treatment: 2.0-3.0 CARDIOLOGY Standard range: 2.0-3.0 High-intensity range: 2.5-3.5 Refer to indication-specific guidelines for appropriate target ranges for prosthetic heart valve replacement. Current interpretive data was last revised on 2019. Blood 02/29/2024 8:19 AM TRIMMER CLIMBER 02/29/2024 8:29 AM TRIMMER CLIMBER Krysten Cohn MD LAB BLOOD ORDERABLES Final Result Performing Organization Address [facility] de Phone Number [facility] [address] * Blood gas, venous (02/29/2024 8:19 AM TRIMMER CLIMBER) Pathologist [facility] pH, Venous 7.42 7.32 - 7.43 PCO2, Venous 42 40 - 50 mmHg [facility] PO2, Venous 30 mmHg [facility] Comment: Interpretive Data No Reference Range Established Current Interpretive Data was last revised on 2017. HCO3 Venous, Calculated 28 20 - 30 mmol/L [facility] BE, venous 2 mmol/L [facility] Comment: Interpretive Data No Reference Range Established Current Interpretive Data was last revised on 2017. Blood 02/29/2024 8:19 AM TRIMMER CLIMBER 02/29/2024 8:26 AM TRIMMER CLIMBER Krysten Cohn MD LAB BLOOD ORDERABLES Final Result Performing Organization Address [facility] de Phone Number [facility] [place] [address] * (ABNORMAL) Comprehensive metabolic panel (02/29/2024 8:19 AM TRIMMER CLIMBER) Sodium 139 135 - 145 mmol/L Potassium, pl 4.4 3.3 - 4.9 mmol/L [facility] Chloride 101 97 - 110 mmol/L [facility] CO2 26 22 - 32 mmol/L [facility] Anion gap 12 2 - 15 mmol/L [facility] BUN 21 6 - 25 mg/dL [facility] Creatinine 0.88 0.60 - 1.10 mg/dL [facility] Glucose 118 70 - 199 mg/dL [facility] Comment: Interpretive Data Fasting glucose >/= [...] 2022. Calcium 8.6 8.5 - 10.3 mg/dL [facility] Bilirubin, total 0.9 0.1 - 1.2 mg/dL [facility] Protein, pl 6.3(L) 6.5 - 8.5 g/dL [facility] Albumin 2.6(L) 3.5 - 5.0 g/dL [facility] Alk phos 300(H) 40 - 130 Units/L [facility] ALT 14 7 - 45 Units/L [facility] AST 59(H) 10 - 45 Units/L [facility] Blood 02/29/2024 8:19 AM TRIMMER CLIMBER 02/29/2024 8:36 AM TRIMMER CLIMBER us Krysten Cohn MD LAB BLOOD ORDERABLES Final Result [facility] Department [place] [address] * Critical Care (02/29/2024 7:40 AM TRIMMER CLIMBER) Narrative Andrez Moyer MD - 02/29/2024 7:40 AM TRIMMER CLIMBER Andrez Moyer MD 02/29/2024 7:45 AM Critical [...] plan with the ICU team and other medical/configuration management consultant staff, making frequent assessments and decisions [...] Result * POCT glucose (02/29/2024 7:19 AM TRIMMER CLIMBER) Glucose, POC 135 70 - 199 mg/dL Blood 02/29/2024 7:19 AM TRIMMER CLIMBER 02/29/2024 7:19 AM TRIMMER CLIMBER us Krysten Cohn MD LAB POCT ORDERABLES - DEVICE Final Result [facility] [place] [address] * POCT glucose (02/29/2024 3:18 AM TRIMMER CLIMBER) Glucose, POC 188 70 - 199 mg/dL Blood 02/29/2024 3:18 AM TRIMMER CLIMBER 02/29/2024 3:18 AM TRIMMER CLIMBER us Krysten Cohn MD LAB POCT ORDERABLES - DEVICE Final Result Performing Organization Address City/[facility]/ZIP Co de Phone Number MADELEINE [facility] [place] [address] * eGFR (02/28/2024 11:35 PM TRIMMER CLIMBER) eGFR >90 >=60 mL/min/1. 73 m2 Comment: [...] reviewed 2021. Blood 02/28/2024 11:3 5 PM TRIMMER CLIMBER 02/29/2024 12:07 AM TRIMMER CLIMBER us Krysten Cohn MD LAB BLOOD ORDERABLES Final Result MADELEINE [facility] [place] [address] * (ABNORMAL) Differential, auto (02/28/2024 11:35 PM TRIMMER CLIMBER) Neutrophil abs 11.3(H) 1.5 - 6.5 K/cumm Imm gran abs 3.3(H) 0.0 - 0.1 K/cumm [facility] Lymphocyte abs 1.8 0.8 - 3.3 K/cumm [facility] Monocyte abs 2.1(H) 0.2 - 0.8 K/cumm [facility] Eosinophil abs 0.0 0.0 - 0.5 K/cumm [facility] Basophil abs 0.1 0.0 - 0.1 K/cumm [facility] Neutrophil pct 60.5 % [facility] Comment: Confirmed by smear review Interpretive Data Percent cell count reference ranges are not reported, since discordance with absolute values may lead to misinterpretation of CBC data. Current Interpretive Data was last revised on 2017. Imm gran pct 17.8 % [facility] Comment: Interpretive Data Percent cell count reference ranges are not reported, since discordance with absolute values may lead to misinterpretation of CBC data. Current Interpretive Data was last revised on 2017. Lymphocyte pct 9.6 % [facility] Comment: Interpretive Data Percent cell count reference ranges are not reported, since discordance with absolute values may lead to misinterpretation of CBC data. Current Interpretive Data was last revised on 2017. Monocyte pct 11.3 % [facility] Comment: Interpretive Data Percent cell count reference ranges are not reported, since discordance with absolute values may lead to misinterpretation of CBC data. Current Interpretive Data was last revised on 2017. Eosinophil pct 0.2 % [facility] Comment: Interpretive Data Percent cell count reference ranges are not reported, since discordance with absolute values may lead to misinterpretation of CBC data. Current Interpretive Data was last revised on 2017. Basophil pct 0.6 % [facility] Comment: Interpretive Data Percent cell count reference ranges are not reported, since discordance with absolute values may lead to misinterpretation of CBC data. Current Interpretive Data was last revised on 2017. Blood 02/28/2024 11:3 5 PM TRIMMER CLIMBER 02/29/2024 12:12 AM TRIMMER CLIMBER us Krysten Cohn MD LAB BLOOD ORDERABLES Final Result MADELEINE [facility] [place] [address] * (ABNORMAL) CBC with auto differential (02/28/2024 11:35 PM TRIMMER CLIMBER) WBC 18.7(H) 3.8 - 9.9 K/cumm Hgb 9.5(L) 11.9 - 15.5 g/dL [facility] Hct 30.1(L) 35.6 - 45.5 % [facility] Plt 154 150 - 400 K/cumm [facility] MPV 10.9 9.1 - 12.3 fL [facility] RBC 2.75(L) 3.90 - 5.20 M/cumm [facility] MCV 110.2(H) 81.3 - 96.4 fL [facility] MCH 34.5(H) 27.1 - 33.3 pg [facility] MCHC 31.5(L) 32.3 - 35.7 g/dL [facility] RDW CV 15.4(H) 11.1 - 14.9 % [facility] RDW SD 62.2(H) 35.7 - 48.1 fL [facility] NRBC abs 0.13(H) 0.00 - 0.01 K/cumm [facility] Blood 02/28/2024 11:3 5 PM TRIMMER CLIMBER 02/29/2024 12:12 AM TRIMMER CLIMBER us Krysten Cohn MD LAB BLOOD ORDERABLES Final Result MADELEINE [facility] [place] [address] * (ABNORMAL) Hemoglobin and hematocrit (02/28/2024 11:35 PM TRIMMER CLIMBER) Hgb 9.5(L) 11.9 - 15.5 g/dL Hct 30.1(L) 35.6 - 45.5 % [facility] Blood 02/28/2024 11:3 5 PM TRIMMER CLIMBER 02/29/2024 12:09 AM TRIMMER CLIMBER Krysten Cohn MD LAB BLOOD ORDERABLES Final Result Performing Organization Address [facility] de Phone Number [facility] [place] [address] * (ABNORMAL) Protime-INR (02/28/2024 11:35 PM TRIMMER CLIMBER) PT 14.3(H) 9.7 - 13.0 sec INR 1.32(H) 0.90 - 1.20 [facility] Comment: Interpretive data Oral anticoagulant therapeutic ranges: Venous thromboembolism prophylaxis or treatment: 2.0-3.0 CARDIOLOGY Standard range: 2.0-3.0 High-intensity range: 2.5-3.5 Refer to indication-specific guidelines for appropriate target ranges for prosthetic heart valve replacement. Current interpretive data was last revised on 2019. Blood 02/28/2024 11:3 5 PM TRIMMER CLIMBER 02/29/2024 12:22 AM TRIMMER CLIMBER Krysten Cohn MD LAB BLOOD ORDERABLES Final Result Performing Organization Address [facility] de Phone Number [facility] [place] [address] * Blood gas, venous (02/28/2024 11:35 PM TRIMMER CLIMBER) pH, Venous 7.36 7.32 - 7.43 PCO2, Venous 50 40 - 50 mmHg [facility] PO2, Venous 43 mmHg [facility] Comment: Interpretive Data No Reference Range Established Current Interpretive Data was last revised on 2017. HCO3 Venous, Calculated 29 20 - 30 mmol/L [facility] BE, venous 2 mmol/L [facility] Comment: Interpretive Data No Reference Range Established Current Interpretive Data was last revised on 2017. Blood 02/28/2024 11:3 5 PM TRIMMER CLIMBER 02/28/2024 11:49 PM TRIMMER CLIMBER us Krysten Cohn MD LAB BLOOD ORDERABLES Final Result [facility] [place] [address] * (ABNORMAL) Comprehensive metabolic panel (02/28/2024 11:35 PM TRIMMER CLIMBER) Sodium 139 135 - 145 mmol/L Potassium, pl 4.0 3.3 - 4.9 mmol/L [facility] Chloride 99 97 - 110 mmol/L [facility] CO2 27 22 - 32 mmol/L [facility] Anion gap 13 2 - 15 mmol/L [facility] BUN 17 6 - 25 mg/dL [facility] Creatinine 0.71 0.60 - 1.10 mg/dL [facility] Glucose 165 70 - 199 mg/dL [facility] Comment: Interpretive Data Fasting glucose >/= [...] 2022. Calcium 8.3(L) 8.5 - 10.3 mg/dL [facility] Bilirubin, total 0.8 0.1 - 1.2 mg/dL [facility] Protein, pl 6.4(L) 6.5 - 8.5 g/dL [facility] Albumin 2.7(L) 3.5 - 5.0 g/dL [facility] Alk phos 308(H) 40 - 130 Units/L [facility] ALT 12 7 - 45 Units/L [facility] AST 38 10 - 45 Units/L [facility] Blood 02/28/2024 11:3 5 PM TRIMMER CLIMBER 02/29/2024 12:07 AM TRIMMER CLIMBER us Krysten Cohn MD LAB BLOOD ORDERABLES Final Result Performing Organization Address [facility] Co de Phone Number MADELEINE [facility] [place] [address] * POCT glucose (02/28/2024 11:23 PM TRIMMER CLIMBER) Glucose, POC 170 70 - 199 mg/dL Blood 02/28/2024 11:2 3 PM TRIMMER CLIMBER 02/28/2024 11:23 PM TRIMMER CLIMBER us Krysten Cohn MD LAB POCT ORDERABLES - DEVICE Final Result Performing Organization Address [facility] de Phone Number MADELEINE [facility] [place] [address] * POCT glucose (02/28/2024 7:25 PM TRIMMER CLIMBER) Glucose, POC 149 70 - 199 mg/dL Blood 02/28/2024 7:25 PM TRIMMER CLIMBER 02/28/2024 7:25 PM TRIMMER CLIMBER us Krysten Cohn MD LAB POCT ORDERABLES - DEVICE Final Result Performing Organization Address [facility] [place] [address] * Critical Care (02/28/2024 6:37 PM TRIMMER CLIMBER) Narrative Gabriel Tsang MD - 02/28/2024 6:37 PM TRIMMER CLIMBER Gabriel Tsang MD 02/29/2024 8:44 PM Critical [...] plan with the ICU team and other medical/configuration management consultant staff, making frequent assessments and decisions [...] XR Chest 1 View (02/28/2024 6:12 PM TRIMMER CLIMBER) Anatomical Region Laterality Modality Body, Chest N/A Computed Radiogr aphy 02/29/2024 10:4 2 AM TRIMMER CLIMBER Impressions 02/29/2024 12:05 PM TRIMMER CLIMBER Comparison made to chest radiograph dated 02/27/2024. [...] Jason Lucia M.D. Narrative 02/29/2024 12:05 PM TRIMMER CLIMBER EXAMINATION: 1 view chest radiograph Procedure Note [...] Result * POCT glucose (02/28/2024 3:23 PM TRIMMER CLIMBER) Glucose, POC 148 70 - 199 mg/dL Blood 02/28/2024 3:23 PM TRIMMER CLIMBER 02/28/2024 3:23 PM TRIMMER CLIMBER Krysten Cohn MD LAB POCT ORDERABLES - DEVICE Final Result Performing Organization Address [facility] Co de Phone Number [facility] [place] [address] * POCT glucose (02/28/2024 11:12 AM TRIMMER CLIMBER) [facility] Glucose, POC 106 70 - 199 mg/dL Blood 02/28/2024 11:1 2 AM TRIMMER CLIMBER 02/28/2024 11:12 AM TRIMMER CLIMBER Krysten Cohn MD LAB POCT ORDERABLES - DEVICE Final Result Performing Organization Address City/[facility] de Phone Number [facility] [place] [address] * eGFR (02/28/2024 9:35 AM TRIMMER CLIMBER) [facility] eGFR 68 >=60 mL/min/1. 73 m2 Comment: [...] last reviewed 2021. Blood 02/28/2024 9:35 AM TRIMMER CLIMBER 02/28/2024 9:58 AM TRIMMER CLIMBER Krysten Cohn MD LAB BLOOD ORDERABLES Final Result Performing Organization Address [facility] de Phone Number [facility] [address] * (ABNORMAL) Protime-INR (02/28/2024 9:35 AM TRIMMER CLIMBER) PT 14.4(H) 9.7 - 13.0 sec INR 1.33(H) 0.90 - 1.20 [facility] Comment: Interpretive data Oral anticoagulant therapeutic ranges: Venous thromboembolism prophylaxis or treatment: 2.0-3.0 CARDIOLOGY Standard range: 2.0-3.0 High-intensity range: 2.5-3.5 Refer to indication-specific guidelines for appropriate target ranges for prosthetic heart valve replacement. Current interpretive data was last revised on 2019. Blood 02/28/2024 9:35 AM TRIMMER CLIMBER 02/28/2024 9:49 AM TRIMMER CLIMBER us Krysten Cohn MD LAB BLOOD ORDERABLES Final Result Performing Organization Address [facility] Co de Phone Number [facility] [place] [address] * (ABNORMAL) Blood gas, venous (02/28/2024 9:35 AM TRIMMER CLIMBER) pH, Venous 7.35 7.32 - 7.43 PCO2, Venous 53(H) 40 - 50 mmHg [facility] PO2, Venous 40 mmHg [facility] Comment: Interpretive Data No Reference Range Established Current Interpretive Data was last revised on 2017. HCO3 Venous, Calculated 31(H) 20 - 30 mmol/L [facility] BE, venous 3 mmol/L [facility] Comment: Interpretive Data No Reference Range Established Current Interpretive Data was last revised on 2017. Blood 02/28/2024 9:35 AM TRIMMER CLIMBER 02/28/2024 9:47 AM TRIMMER CLIMBER us Krysten Cohn MD LAB BLOOD ORDERABLES Final Result [facility] [place] [address] * (ABNORMAL) Comprehensive metabolic panel (02/28/2024 9:35 AM TRIMMER CLIMBER) Sodium 138 135 - 145 mmol/L Potassium, pl 3.8 3.3 - 4.9 mmol/L [facility] Chloride 101 97 - 110 mmol/L [facility] CO2 30 22 - 32 mmol/L [facility] Anion gap 7 2 - 15 mmol/L [facility] BUN 26(H) 6 - 25 mg/dL [facility] Creatinine 0.98 0.60 - 1.10 mg/dL [facility] Glucose 124 70 - 199 mg/dL [facility] Comment: Interpretive Data Fasting glucose >/= [...] 2022. Calcium 8.2(L) 8.5 - 10.3 mg/dL [facility] Bilirubin, total 0.7 0.1 - 1.2 mg/dL [facility] Protein, pl 5.8(L) 6.5 - 8.5 g/dL [facility] Albumin 2.5(L) 3.5 - 5.0 g/dL [facility] Alk phos 390(H) 40 - 130 Units/L [facility] ALT 11 7 - 45 Units/L [facility] AST 40 10 - 45 Units/L [facility] Blood 02/28/2024 9:35 AM TRIMMER CLIMBER 02/28/2024 9:58 AM TRIMMER CLIMBER us Krysten Cohn MD LAB BLOOD ORDERABLES Final Result [facility] [place] [address] * Critical Care (02/28/2024 7:43 AM TRIMMER CLIMBER) Narrative Andrez Moyer MD - 02/28/2024 7:43 AM TRIMMER CLIMBER Andrez Moyer MD 02/28/2024 7:44 AM Critical [...] plan with the ICU team and other medical/configuration management consultant staff, making frequent assessments and decisions [...] Result * POCT glucose (02/28/2024 7:32 AM TRIMMER CLIMBER) Glucose, POC 88 70 - 199 mg/dL Blood 02/28/2024 7:32 AM TRIMMER CLIMBER 02/28/2024 7:32 AM TRIMMER CLIMBER Krysten Cohn MD LAB POCT ORDERABLES - DEVICE Final Result Performing Organization Address [facility] de Phone Number [facility] [place] [address] * (ABNORMAL) Hemoglobin and hematocrit (02/28/2024 4:27 AM TRIMMER CLIMBER) Hgb 8.4(L) 11.9 - 15.5 g/dL Hct 27.1(L) 35.6 - 45.5 % [facility] Blood 02/28/2024 4:27 AM TRIMMER CLIMBER 02/28/2024 4:46 AM TRIMMER CLIMBER Krysten Cohn MD LAB BLOOD ORDERABLES Final Result Performing Organization Address [facility] de Phone Number [facility] [place] [address] * POCT glucose (02/28/2024 3:10 AM TRIMMER CLIMBER) Glucose, POC 87 70 - 199 mg/dL Blood 02/28/2024 3:10 AM TRIMMER CLIMBER 02/28/2024 3:10 AM TRIMMER CLIMBER Krysten Cohn MD LAB POCT ORDERABLES - DEVICE Final Result Performing Organization Address [facility] Co de Phone Number [facility] [place] [address] * (ABNORMAL) Blood gas, venous (02/27/2024 11:23 PM TRIMMER CLIMBER) pH, Venous 7.29(L) 7.32 - 7.43 PCO2, Venous 63(H) 40 - 50 mmHg [facility] PO2, Venous 55 mmHg [facility] Comment: Interpretive Data No Reference Range Established Current Interpretive Data was last revised on 2017. HCO3 Venous, Calculated 31(H) 20 - 30 mmol/L [facility] BE, venous 2 mmol/L [facility] Comment: Interpretive Data No Reference Range Established Current Interpretive Data was last revised on 2017. Blood 02/27/2024 11:2 3 PM TRIMMER CLIMBER 02/27/2024 11:31 PM TRIMMER CLIMBER us Krysten Cohn MD LAB BLOOD ORDERABLES Final Result Performing Organization Address [facility] Co de Phone Number [facility] [place] [address] * POCT glucose (02/27/2024 11:20 PM TRIMMER CLIMBER) Glucose, POC 115 70 - 199 mg/dL Blood 02/27/2024 11:2 0 PM TRIMMER CLIMBER 02/27/2024 11:20 PM TRIMMER CLIMBER us Krysten Cohn MD LAB POCT ORDERABLES - DEVICE Final Result Performing Organization Address [facility] Co de Phone Number [facility] [place] [address] * Critical Care (02/27/2024 7:55 PM TRIMMER CLIMBER) Narrative Gabriel Tsang MD - 02/27/2024 7:55 PM TRIMMER CLIMBER Gabriel Tsang MD 02/28/2024 6:02 AM Critical [...] plan with the ICU team and other medical/configuration management consultant staff, making frequent assessments and decisions [...] us Gabriel Tsang MD IN CLINIC/BEDSIDE JM VIRGENRACHAEL Final Result * (ABNORMAL) eGFR (02/27/2024 7:51 PM TRIMMER CLIMBER) eGFR 31(L) >=60 mL/min/1. 73 m2 Comment: [...] last reviewed 2021. Blood 02/27/2024 7:51 PM TRIMMER CLIMBER 02/27/2024 8:06 PM TRIMMER CLIMBER us Krysten Cohn MD LAB BLOOD ORDERABLES Final Result Performing Organization Address [facility] Co de Phone Number [facility] [place] [address] * (ABNORMAL) Protime-INR (02/27/2024 7:51 PM TRIMMER CLIMBER) Pathologist [facility] PT 14.4(H) 9.7 - 13.0 sec INR 1.33(H) 0.90 - 1.20 [facility] Comment: Interpretive data Oral anticoagulant therapeutic ranges: Venous thromboembolism prophylaxis or treatment: 2.0-3.0 CARDIOLOGY Standard range: 2.0-3.0 High-intensity range: 2.5-3.5 Refer to indication-specific guidelines for appropriate target ranges for prosthetic heart valve replacement. Current interpretive data was last revised on 2019. Blood 02/27/2024 7:51 PM TRIMMER CLIMBER 02/27/2024 8:10 PM TRIMMER CLIMBER Krysten Cohn MD LAB BLOOD ORDERABLES Final Result Performing Organization Address [facility] Co de Phone Number [facility] [place] [address] * Phosphorus (02/27/2024 7:51 PM TRIMMER CLIMBER) [facility] Phosphorus, pl 4.1 2.3 - 4.5 mg/dL Blood 02/27/2024 7:51 PM TRIMMER CLIMBER 02/27/2024 8:00 PM TRIMMER CLIMBER Krysten Cohn MD LAB BLOOD ORDERABLES Final Result Performing Organization Address [facility] [place] [address] * (ABNORMAL) Comprehensive metabolic panel (02/27/2024 7:51 PM TRIMMER CLIMBER) [facility] Sodium 140 135 - 145 mmol/L Potassium, pl 3.5 3.3 - 4.9 mmol/L [facility] Chloride 100 97 - 110 mmol/L [facility] CO2 30 22 - 32 mmol/L [facility] Anion gap 10 2 - 15 mmol/L [facility] BUN 42(H) 6 - 25 mg/dL [facility] Creatinine 1.91(H) 0.60 - 1.10 mg/dL [facility] Glucose 102 70 - 199 mg/dL [facility] Comment: Interpretive Data Fasting glucose >/= [...] 2022. Calcium 8.3(L) 8.5 - 10.3 mg/dL [facility] Bilirubin, total 0.7 0.1 - 1.2 mg/dL [facility] Protein, pl 5.8(L) 6.5 - 8.5 g/dL [facility] Albumin 2.5(L) 3.5 - 5.0 g/dL [facility] Alk phos 240(H) 40 - 130 Units/L [facility] ALT 11 7 - 45 Units/L [facility] AST 34 10 - 45 Units/L [facility] Blood 02/27/2024 7:51 PM TRIMMER CLIMBER 02/27/2024 8:00 PM TRIMMER CLIMBER us Krysten Cohn MD LAB BLOOD ORDERABLES Final Result [facility] Department [place] [address] * POCT glucose (02/27/2024 7:00 PM TRIMMER CLIMBER) Glucose, POC 109 70 - 199 mg/dL Blood 02/27/2024 7:00 PM TRIMMER CLIMBER 02/27/2024 7:00 PM TRIMMER CLIMBER Krysten Cohn MD LAB POCT ORDERABLES - DEVICE Final Result [facility] [place] [address] * XR Chest 1 View (02/27/2024 6:19 PM TRIMMER CLIMBER) Anatomical Region Laterality Modality Body, Chest N/A Computed Radiogr aphy 02/27/2024 7:35 PM TRIMMER CLIMBER Impressions 02/27/2024 7:35 PM TRIMMER CLIMBER Comparison is made 02/26/2024. Right internal jugular central venous catheter has tip in the superior vena cava. There has been interval increase in bilateral airspace opacities consistent with pulmonary edema that may be secondary to evolving lung injury or a cardiogenic cause. No pneumothorax. No effusions. Electronically signed by: Kenton Muñoz M.D. Narrative 02/27/2024 7:35 PM TRIMMER CLIMBER EXAMINATION: 1 view chest radiograph Procedure Note Kenton Muñzo MD - 02/27/2024 EXAMINATION: 1 view chest [...] (ABNORMAL) Blood gas, venous (02/27/2024 5:57 PM TRIMMER CLIMBER) pH, Venous 7.27(L) 7.32 - 7.43 PCO2, Venous 68(H) 40 - 50 mmHg [facility] PO2, Venous 46 mmHg [facility] Comment: Interpretive Data No Reference Range Established Current Interpretive Data was last revised on 2017. HCO3 Venous, Calculated 32(H) 20 - 30 mmol/L [facility] BE, venous 3 mmol/L [facility] Comment: Interpretive Data No Reference Range Established Current Interpretive Data was last revised on 2017. Blood 02/27/2024 5:57 PM TRIMMER CLIMBER 02/27/2024 6:04 PM TRIMMER CLIMBER Angelica ADAMS LAB BLOOD ORDERABLE S Final Result Performing Organization Address [facility] de Phone Number [facility] [place] [address] * (ABNORMAL) Blood gas, venous (02/27/2024 3:43 PM TRIMMER CLIMBER) pH, Venous 7.29(L) 7.32 - 7.43 PCO2, Venous 61(H) 40 - 50 mmHg [facility] PO2, Venous 52 mmHg [facility] Comment: Interpretive Data No Reference Range Established Current Interpretive Data was last revised on 2017. HCO3 Venous, Calculated 31(H) 20 - 30 mmol/L [facility] BE, venous 2 mmol/L [facility] Comment: Interpretive Data No Reference Range Established Current Interpretive Data was last revised on 2017. Blood 02/27/2024 3:43 PM TRIMMER CLIMBER 02/27/2024 3:57 PM TRIMMER CLIMBER Krysten Cohn MD LAB BLOOD ORDERABLES Final Result Performing Organization Address [facility] Co de Phone Number [facility] [place] [address] * Blood culture Blood (02/27/2024 12:52 PM TRIMMER CLIMBER) Report Final Report: No growth Blood 02/27/2024 12:5 2 PM TRIMMER CLIMBER 02/27/2024 1:29 PM TRIMMER CLIMBER Narrative [facility] - 03/02/2024 4:00 PM TRIMMER CLIMBER Collection->Peripheral 1. Blood cultures are incubated for [...] performance characteristics have been verified by the [facility]. For questions about this culture, contact the Microbiology Laboratory at [phone]. Interpretive data was last revised on 23. Angelica ADAMS LAB MICROBIOLOGY - GENERAL ORDERABLES Final Result [facility] [place] [address] * Blood culture Blood (02/27/2024 12:52 PM TRIMMER CLIMBER) Report Final Report: No growth Blood 02/27/2024 12:5 2 PM TRIMMER CLIMBER 02/27/2024 1:29 PM TRIMMER CLIMBER Narrative [facility] - 03/02/2024 4:00 PM TRIMMER CLIMBER Collection->Peripheral 1. Blood cultures are incubated for [...] performance characteristics have been verified by the [facility]. For questions about this culture, contact the Microbiology Laboratory at [phone]. Interpretive data was last revised on 23. Angelica ADAMS LAB MICROBIOLOGY - GENERAL ORDERABLES Final Result Performing Organization Address City/[facility]/ZIP Co de Phone Number [facility] [place] [address] * (ABNORMAL) Blood gas, venous (02/27/2024 12:19 PM TRIMMER CLIMBER) pH, Venous 7.31(L) 7.32 - 7.43 PCO2, Venous 58(H) 40 - 50 mmHg [facility] PO2, Venous 50 mmHg [facility] Comment: Interpretive Data No Reference Range Established Current Interpretive Data was last revised on 2017. HCO3 Venous, Calculated 31(H) 20 - 30 mmol/L [facility] BE, venous 3 mmol/L [facility] Comment: Interpretive Data No Reference Range Established Current Interpretive Data was last revised on 2017. Blood 02/27/2024 12:1 9 PM TRIMMER CLIMBER 02/27/2024 12:27 PM TRIMMER CLIMBER Angelica ADAMS LAB BLOOD ORDERABLE S Final Result [facility] [place] [address] * POCT glucose (02/27/2024 11:13 AM TRIMMER CLIMBER) Glucose, POC 118 70 - 199 mg/dL Blood 02/27/2024 11:1 3 AM TRIMMER CLIMBER 02/27/2024 11:13 AM TRIMMER CLIMBER us Krysten Cohn MD LAB POCT ORDERABLES - DEVICE Final Result [facility] [place] [address] * (ABNORMAL) Differential, auto (02/27/2024 9:20 AM TRIMMER CLIMBER) Neutrophil abs 15.4(H) 1.5 - 6.5 K/cumm Imm gran abs 0.5(H) 0.0 - 0.1 K/cumm [facility] Lymphocyte abs 1.3 0.8 - 3.3 K/cumm [facility] Monocyte abs 2.1(H) 0.2 - 0.8 K/cumm [facility] Eosinophil abs 0.1 0.0 - 0.5 K/cumm [facility] Basophil abs 0.1 0.0 - 0.1 K/cumm [facility] Neutrophil pct 79.0 % [facility] Comment: Interpretive Data Percent cell count reference ranges are not reported, since discordance with absolute values may lead to misinterpretation of CBC data. Current Interpretive Data was last revised on 2017. Imm gran pct 2.5 % [facility] Comment: Interpretive Data Percent cell count reference ranges are not reported, since discordance with absolute values may lead to misinterpretation of CBC data. Current Interpretive Data was last revised on 2017. Lymphocyte pct 6.5 % [facility] Comment: Interpretive Data Percent cell count reference ranges are not reported, since discordance with absolute values may lead to misinterpretation of CBC data. Current Interpretive Data was last revised on 2017. Monocyte pct 11.0 % [facility] Comment: Interpretive Data Percent cell count reference ranges are not reported, since discordance with absolute values may lead to misinterpretation of CBC data. Current Interpretive Data was last revised on 2017. Eosinophil pct 0.6 % [facility] Comment: Interpretive Data Percent cell count reference ranges are not reported, since discordance with absolute values may lead to misinterpretation of CBC data. Current Interpretive Data was last revised on 2017. Basophil pct 0.4 % [facility] Comment: Interpretive Data Percent cell count reference ranges are not reported, since discordance with absolute values may lead to misinterpretation of CBC data. Current Interpretive Data was last revised on 2017. Blood 02/27/2024 9:20 AM TRIMMER CLIMBER 02/27/2024 9:38 AM TRIMMER CLIMBER us Krysten Cohn MD LAB BLOOD ORDERABLES Final Result [facility] [place] [address] * (ABNORMAL) CBC with auto differential (02/27/2024 9:20 AM TRIMMER CLIMBER) WBC 19.5(H) 3.8 - 9.9 K/cumm Hgb 8.1(L) 11.9 - 15.5 g/dL [facility] Hct 25.1(L) 35.6 - 45.5 % [facility] Plt 117(L) 150 - 400 K/cumm [facility] MPV 10.2 9.1 - 12.3 fL [facility] RBC 2.36(L) 3.90 - 5.20 M/cumm [facility] MCV 106.4(H) 81.3 - 96.4 fL [facility] MCH 34.3(H) 27.1 - 33.3 pg [facility] MCHC 32.3 32.3 - 35.7 g/dL [facility] RDW CV 15.5(H) 11.1 - 14.9 % [facility] RDW SD 59.7(H) 35.7 - 48.1 fL [facility] NRBC abs 0.07(H) 0.00 - 0.01 K/cumm [facility] Blood 02/27/2024 9:20 AM TRIMMER CLIMBER 02/27/2024 9:38 AM TRIMMER CLIMBER us Krysten Cohn MD LAB BLOOD ORDERABLES Final Result Performing Organization Address [facility] de Phone Number [facility] [place] [address] * (ABNORMAL) eGFR (02/27/2024 9:00 AM TRIMMER CLIMBER) eGFR 19(L) >=60 mL/min/1. 73 m2 Comment: [...] last reviewed 2021. Blood 02/27/2024 9:00 AM TRIMMER CLIMBER 02/27/2024 9:39 AM TRIMMER CLIMBER us Krysten Cohn MD LAB BLOOD ORDERABLES Final Result Performing Organization Address [facility] de Phone Number [facility] [place] [address] * (ABNORMAL) Protime-INR (02/27/2024 9:00 AM TRIMMER CLIMBER) PT 14.9(H) 9.7 - 13.0 sec INR 1.37(H) 0.90 - 1.20 [facility] Comment: Interpretive data Oral anticoagulant therapeutic ranges: Venous thromboembolism prophylaxis or treatment: 2.0-3.0 CARDIOLOGY Standard range: 2.0-3.0 High-intensity range: 2.5-3.5 Refer to indication-specific guidelines for appropriate target ranges for prosthetic heart valve replacement. Current interpretive data was last revised on 2019. Blood 02/27/2024 9:00 AM TRIMMER CLIMBER 02/27/2024 9:39 AM TRIMMER CLIMBER Krysten Cohn MD LAB BLOOD ORDERABLES Final Result Performing Organization Address [facility] de Phone Number [facility] [place] [address] * (ABNORMAL) Blood gas, venous (02/27/2024 9:00 AM TRIMMER CLIMBER) pH, Venous 7.30(L) 7.32 - 7.43 PCO2, Venous 59(H) 40 - 50 mmHg [facility] PO2, Venous 55 mmHg [facility] Comment: Interpretive Data No Reference Range Established Current Interpretive Data was last revised on 2017. HCO3 Venous, Calculated 30 20 - 30 mmol/L [facility] BE, venous 2 mmol/L [facility] Comment: Interpretive Data No Reference Range Established Current Interpretive Data was last revised on 2017. Blood 02/27/2024 9:00 AM TRIMMER CLIMBER 02/27/2024 9:32 AM TRIMMER CLIMBER Krysten Cohn MD LAB BLOOD ORDERABLES Final Result Performing Organization Address [facility] Co de Phone Number [facility] [place] [address] * (ABNORMAL) Comprehensive metabolic panel (02/27/2024 9:00 AM TRIMMER CLIMBER) Sodium 139 135 - 145 mmol/L Potassium, pl 3.5 3.3 - 4.9 mmol/L [facility] Chloride 100 97 - 110 mmol/L [facility] CO2 30 22 - 32 mmol/L [facility] Anion gap 9 2 - 15 mmol/L [facility] BUN 51(H) 6 - 25 mg/dL [facility] Creatinine 2.89(H) 0.60 - 1.10 mg/dL [facility] Glucose 107 70 - 199 mg/dL [facility] Comment: Interpretive Data Fasting glucose >/= [...] 2022. Calcium 8.4(L) 8.5 - 10.3 mg/dL [facility] Bilirubin, total 0.7 0.1 - 1.2 mg/dL [facility] Protein, pl 5.5(L) 6.5 - 8.5 g/dL [facility] Albumin 2.5(L) 3.5 - 5.0 g/dL [facility] Alk phos 218(H) 40 - 130 Units/L [facility] ALT 10 7 - 45 Units/L [facility] AST 31 10 - 45 Units/L [facility] Blood 02/27/2024 9:00 AM TRIMMER CLIMBER 02/27/2024 9:39 AM TRIMMER CLIMBER Krysten Cohn MD LAB BLOOD ORDERABLES Final Result [facility] [place] [address] * Critical Care (02/27/2024 8:54 AM TRIMMER CLIMBER) Narrative Andrez Moyer MD - 02/27/2024 8:54 AM TRIMMER CLIMBER Andrez Moyer MD 02/27/2024 8:54 AM Critical [...] plan with the ICU team and other medical/configuration management consultant staff, making frequent assessments and decisions [...] Result * POCT glucose (02/27/2024 7:10 AM TRIMMER CLIMBER) Glucose, POC 100 70 - 199 mg/dL Blood 02/27/2024 7:10 AM TRIMMER CLIMBER 02/27/2024 7:10 AM TRIMMER CLIMBER us Krysten Cohn MD LAB POCT ORDERABLES - DEVICE Final Result [facility] Department [place] [address] * (ABNORMAL) Hemoglobin and hematocrit (02/27/2024 5:42 AM TRIMMER CLIMBER) Hgb 7.9(L) 11.9 - 15.5 g/dL Hct 24.7(L) 35.6 - 45.5 % [facility] Blood 02/27/2024 5:42 AM TRIMMER CLIMBER 02/27/2024 6:20 AM TRIMMER CLIMBER us Krysten Cohn MD LAB BLOOD ORDERABLES Final Result Performing Organization Address City/[facility]/ZIP Co de Phone Number [facility] [place] [address] * POCT glucose (02/27/2024 3:09 AM TRIMMER CLIMBER) Glucose, POC 96 70 - 199 mg/dL Blood 02/27/2024 3:09 AM TRIMMER CLIMBER 02/27/2024 3:09 AM TRIMMER CLIMBER Krysten Cohn MD LAB POCT ORDERABLES - DEVICE Final Result Performing Organization Address [facility] Co de Phone Number [facility] [place] [address] * POCT glucose (02/26/2024 11:33 PM TRIMMER CLIMBER) Glucose, POC 105 70 - 199 mg/dL Blood 02/26/2024 11:3 3 PM TRIMMER CLIMBER 02/26/2024 11:33 PM TRIMMER CLIMBER Krysten Cohn MD LAB POCT ORDERABLES - DEVICE Final Result Performing Organization Address [facility] Co de Phone Number [facility] [place] [address] * (ABNORMAL) Blood gas, venous (02/26/2024 11:05 PM TRIMMER CLIMBER) pH, Venous 7.32 7.32 - 7.43 PCO2, Venous 57(H) 40 - 50 mmHg [facility] PO2, Venous 46 mmHg [facility] Comment: Interpretive Data No Reference Range Established Current Interpretive Data was last revised on 2017. HCO3 Venous, Calculated 30 20 - 30 mmol/L [facility] BE, venous 2 mmol/L [facility] Comment: Interpretive Data No Reference Range Established Current Interpretive Data was last revised on 2017. Blood 02/26/2024 11:0 5 PM TRIMMER CLIMBER 02/26/2024 11:12 PM TRIMMER CLIMBER Beata Pérez NP LAB BLOOD ORDERABLES F inal Result [facility] [place] [address] * (ABNORMAL) Aerobic and anaerobic culture and gram stain Aspirate Leg, left (02/26/2024 9:35 PM TRIMMER CLIMBER) Direct Specimen Exam Stain: No polymorphonuclear leukocytes seen. No organisms seen. Report Final Report: Few Staphylococcus aureus Methicillin susceptible (MSSA) by penicillin binding protein 2a (PBP2a) testing. This isolate is presumed to be resistant to clindamycin based on detection of inducible clindamycin resistance. Clindamycin may still be effective in some patients. (.) [facility] Organism STAPHYLOCOCCUS AUREUS [facility] Aspirate (Leg, left) 02/26/2024 9:35 PM TRIMMER CLIMBER 02/26/2024 9:45 PM TRIMMER CLIMBER Narrative [facility] - 2024 12:42 PM TRIMMER CLIMBER Specimen received on an ESwab. Testing performed by [facility] ([phone]) Specimens submitted from normally sterile body sites [...] NERAL ORDERABLES Final Result Performing Organization Address City/[facility] Co de Phone Number [facility] [place] [address] * POCT glucose (02/26/2024 9:35 PM TRIMMER CLIMBER) Glucose, POC 114 70 - 199 mg/dL Blood 02/26/2024 9:35 PM TRIMMER CLIMBER 02/26/2024 9:35 PM TRIMMER CLIMBER us Krysten Cohn MD LAB POCT ORDERABLES - DEVICE Final Result Performing Organization Address [facility] Co de Phone Number [facility] [place] [address] * Critical Care (02/26/2024 9:25 PM TRIMMER CLIMBER) Narrative Gabriel Tsang MD - 02/26/2024 9:25 PM TRIMMER CLIMBER Gabriel Tsang MD 02/27/2024 5:45 AM Critical [...] plan with the ICU team and other medical/configuration management consultant staff, making frequent assessments and decisions [...] Result * (ABNORMAL) eGFR (02/26/2024 7:22 PM TRIMMER CLIMBER) Pathologist [facility] eGFR 16(L) >=60 mL/min/1. 73 m2 Comment: [...] data was last reviewed 2021. Blood 02/26/2024 7:2 2 PM TRIMMER CLIMBER 02/26/2024 7:41 PM TRIMMER CLIMBER us Krysten Cohn MD LAB BLOOD ORDERABLES Final Result [facility] [place] [address] * (ABNORMAL) Differential, auto (02/26/2024 7:22 PM TRIMMER CLIMBER) Pathologist [facility] Neutrophil abs 17.3(H) 1.5 - 6.5 K/cumm Imm gran abs 0.2(H) 0.0 - 0.1 K/cumm [facility] Lymphocyte abs 1.1 0.8 - 3.3 K/cumm [facility] Monocyte abs 1.7(H) 0.2 - 0.8 K/cumm [facility] Eosinophil abs 0.1 0.0 - 0.5 K/cumm [facility] Basophil abs 0.1 0.0 - 0.1 K/cumm [facility] Neutrophil pct 84.7 % [facility] Comment: Interpretive Data Percent cell count reference ranges are not reported, since discordance with absolute values may lead to misinterpretation of CBC data. Current Interpretive Data was last revised on 2017. Imm gran pct 1.0 % [facility] Comment: Interpretive Data Percent cell count reference ranges are not reported, since discordance with absolute values may lead to misinterpretation of CBC data. Current Interpretive Data was last revised on 2017. Lymphocyte pct 5.4 % [facility] Comment: Interpretive Data Percent cell count reference ranges are not reported, since discordance with absolute values may lead to misinterpretation of CBC data. Current Interpretive Data was last revised on 2017. Monocyte pct 8.3 % [facility] Comment: Interpretive Data Percent cell count reference ranges are not reported, since discordance with absolute values may lead to misinterpretation of CBC data. Current Interpretive Data was last revised on 2017. Eosinophil pct 0.3 % [facility] Comment: Interpretive Data Percent cell count reference ranges are not reported, since discordance with absolute values may lead to misinterpretation of CBC data. Current Interpretive Data was last revised on 2017. Basophil pct 0.3 % [facility] Comment: Interpretive Data Percent cell count reference ranges are not reported, since discordance with absolute values may lead to misinterpretation of CBC data. Current Interpretive Data was last revised on 2017. Blood 02/26/2024 7:22 PM TRIMMER CLIMBER 02/26/2024 7:40 PM TRIMMER CLIMBER Beata Pérez NP LAB BLOOD ORDERABLES F inal Result [facility] [place] [address] * (ABNORMAL) CBC with auto differential (02/26/2024 7:22 PM TRIMMER CLIMBER) WBC 20.4(H) 3.8 - 9.9 K/cumm Hgb 8.1(L) 11.9 - 15.5 g/dL [facility] Hct 25.2(L) 35.6 - 45.5 % [facility] Plt 125(L) 150 - 400 K/cumm [facility] MPV 9.9 9.1 - 12.3 fL [facility] RBC 2.34(L) 3.90 - 5.20 M/cumm [facility] MCV 107.7(H) 81.3 - 96.4 fL [facility] MCH 34.6(H) 27.1 - 33.3 pg [facility] MCHC 32.1(L) 32.3 - 35.7 g/dL [facility] RDW CV 15.3(H) 11.1 - 14.9 % [facility] RDW SD 60.9(H) 35.7 - 48.1 fL [facility] NRBC abs 0.04(H) 0.00 - 0.01 K/cumm [facility] Blood 02/26/2024 7:22 PM TRIMMER CLIMBER 02/26/2024 7:40 PM TRIMMER CLIMBER Beata Pérez NP LAB BLOOD ORDERABLES F inal Result [facility] [place] [address] * (ABNORMAL) Protime-INR (02/26/2024 7:22 PM TRIMMER CLIMBER) PT 15.5(H) 9.7 - 13.0 sec INR 1.42(H) 0.90 - 1.20 [facility] Comment: Interpretive data Oral anticoagulant therapeutic ranges: Venous thromboembolism prophylaxis or treatment: 2.0-3.0 CARDIOLOGY Standard range: 2.0-3.0 High-intensity range: 2.5-3.5 Refer to indication-specific guidelines for appropriate target ranges for prosthetic heart valve replacement. Current interpretive data was last revised on 2019. Blood 02/26/2024 7:22 PM TRIMMER CLIMBER 02/26/2024 7:40 PM TRIMMER CLIMBER Krysten Cohn MD LAB BLOOD ORDERABLES Final Result Performing Organization Address [facility] de Phone Number [facility] [place] [address] * (ABNORMAL) Phosphorus (02/26/2024 7:22 PM TRIMMER CLIMBER) Pathologist [facility] Phosphorus, pl 6.1(H) 2.3 - 4.5 mg/dL Blood 02/26/2024 7:22 PM TRIMMER CLIMBER 02/26/2024 7:41 PM TRIMMER CLIMBER Beata Pérez GOVERNMENT TEACHER LAB BLOOD ORDERABLES F inal Result Performing Organization Address [facility] Co de Phone Number [facility] [place] [address] * Magnesium (02/26/2024 7:22 PM TRIMMER CLIMBER) [facility] Magnesium 1.6 1.4 - 2.5 mg/dL Blood 02/26/2024 7:22 PM TRIMMER CLIMBER 02/26/2024 7:41 PM TRIMMER CLIMBER Beata Pérez GOVERNMENT TEACHER LAB BLOOD ORDERABLES F inal Result Performing Organization Address [facility] de Phone Number [facility] [place] [address] * (ABNORMAL) Blood gas, venous (02/26/2024 7:22 PM TRIMMER CLIMBER) [facility] pH, Venous 7.31(L) 7.32 - 7.43 PCO2, Venous 60(H) 40 - 50 mmHg [facility] PO2, Venous 47 mmHg [facility] Comment: Interpretive Data No Reference Range Established Current Interpretive Data was last revised on 2017. HCO3 Venous, Calculated 31(H) 20 - 30 mmol/L [facility] BE, venous 3 mmol/L [facility] Comment: Interpretive Data No Reference Range Established Current Interpretive Data was last revised on 2017. Blood 02/26/2024 7:22 PM TRIMMER CLIMBER 02/26/2024 7:32 PM TRIMMER CLIMBER Beata Pérez NP LAB BLOOD ORDERABLES F inal Result [facility] [place] [address] * (ABNORMAL) Comprehensive metabolic panel (02/26/2024 7:22 PM TRIMMER CLIMBER) Pathologist [facility] Sodium 136 135 - 145 mmol/L Potassium, pl 3.5 3.3 - 4.9 mmol/L [facility] Chloride 95(L) 97 - 110 mmol/L [facility] CO2 29 22 - 32 mmol/L [facility] Anion gap 12 2 - 15 mmol/L [facility] BUN 50(H) 6 - 25 mg/dL [facility] Creatinine 3.28(H) 0.60 - 1.10 mg/dL [facility] Glucose 106 70 - 199 mg/dL [facility] Comment: Interpretive Data Fasting glucose >/= [...] Calcium 8.4(L) 8.5 - 10.3 mg/dL [facility] Bilirubin, total 0.6 0.1 - 1.2 mg/dL [facility] Protein, pl 5.5(L) 6.5 - 8.5 g/dL [facility] Albumin 2.3(L) 3.5 - 5.0 g/dL [facility] Alk phos 190(H) 40 - 130 Units/L [facility] ALT 11 7 - 45 Units/L [facility] AST 32 10 - 45 Units/L [facility] Blood 02/26/2024 7:22 PM TRIMMER CLIMBER 02/26/2024 7:41 PM TRIMMER CLIMBER Krysten Cohn MD LAB BLOOD ORDERABLES Final Result [facility] [place] [address] * XR Chest 1 View (02/26/2024 6:26 PM TRIMMER CLIMBER) Anatomical Region Laterality Modality Body, Chest N/A Computed Radiogr aphy 02/26/2024 8:26 PM TRIMMER CLIMBER Impressions 02/26/2024 8:26 PM TRIMMER CLIMBER The current study is compared with the [...] Alexa Hernández M.D. Narrative 02/26/2024 8:26 PM TRIMMER CLIMBER EXAMINATION: 1 view chest radiograph Procedure Note [...] signed by: Alexa Hernández M.D. Beata Pérez GOVERNMENT TEACHER IMG XR PROCEDURES Nicole l Result * (ABNORMAL) Blood gas, venous (02/26/2024 5:14 PM TRIMMER CLIMBER) pH, Venous 7.31(L) 7.32 - 7.43 PCO2, Venous 58(H) 40 - 50 mmHg [facility] PO2, Venous 49 mmHg [facility] Comment: Interpretive Data No Reference Range Established Current Interpretive Data was last revised on 2017. HCO3 Venous, Calculated 30 20 - 30 mmol/L [facility] BE, venous 2 mmol/L [facility] Comment: Interpretive Data No Reference Range Established Current Interpretive Data was last revised on 2017. Blood 02/26/2024 5:14 PM TRIMMER CLIMBER 02/26/2024 5:37 PM TRIMMER CLIMBER Beata Pérez NP LAB BLOOD ORDERABLES F inal Result [facility] [place] [address] * CT Chest PE (CTA) W Contrast (02/26/2024 4:33 PM TRIMMER CLIMBER) Anatomical Region Laterality Modality Body N/A Computed Tomogra phy 02/26/2024 4:39 PM TRIMMER CLIMBER Impressions 02/26/2024 4:42 PM TRIMMER CLIMBER No pulmonary embolism. Findings of mild-moderate pulmonary edema. Dictated by: Cuca Bhakta MD, MPH The radiology attending physician has personally reviewed this study, and had reviewed and/or edited this written report and agrees with it. Electronically signed by: Kehinde Otto M.D., MPH Narrative 02/26/2024 4:42 PM TRIMMER CLIMBER EXAMINATION: CT CHEST PE (CTA) W CONTRAST [...] Extremity Left W Contrast (02/26/2024 4:33 PM TRIMMER CLIMBER) Anatomical Region Laterality Modality Lower Extremities Left Computed Tomog sheela 02/26/2024 5:07 PM TRIMMER CLIMBER Impressions 02/26/2024 5:13 PM TRIMMER CLIMBER 1. Large left prepatellar rim-enhancing fluid collection [...] John Contreras M.D. Narrative 02/26/2024 5:13 PM TRIMMER CLIMBER EXAMINATION: CT ENTIRE LOWER EXTREMITY LEFT W [...] it. Electronically signed by: John Contreras M.D. Krysten Cohn MD IMG CT PROCEDURES Fin al Result * POCT glucose (02/26/2024 3:34 PM TRIMMER CLIMBER) Glucose, POC 114 70 - 199 mg/dL Blood 02/26/2024 3:34 PM TRIMMER CLIMBER 02/26/2024 3:34 PM TRIMMER CLIMBER Krysten Cohn MD LAB POCT ORDERABLES - DEVICE Final Result [facility] [place] [address] * US Vein Duplex Lower Extremity Bilateral Complete (02/26/2024 12:41 PM TRIMMER CLIMBER) Anatomical Region Laterality Modality Vascular Bilateral Ultrasound 02/26/2024 11:3 1 AM TRIMMER CLIMBER Narrative 02/27/2024 10:22 PM TRIMMER CLIMBER [facility] - Department of Vascular Surgery, Vascular Laboratory [address] [place] [address] Lower Extremity Venous Ultrasound Report Patient Name: NOLVIA BRANCH M : 1970 (53y 11m) Study Date: 02/26/2024 11:31:12 AM Gender: F Tech: [facility] Location: [id number] Ref Provider: ANDREZ MOYER Quality: Adequate Order [...] bilateral lower extremity swelling - FINDINGS: Performing Revenue Research Analyst: Merna Lynne RDMS, RVT. Bilateral: Venous Doppler [...] Ander Jaffe MD FACS 02/27/2024 10:22:04 PM TRIMMER CLIMBER Procedure Note Ander Jaffe MD - 02/27/2024 [facility] - Department of Vascular Surgery,Vascular Laboratory [address] [place] [address] Lower Extremity Venous Ultrasound Report Patient Name: NOLVIA BRANCH M : 1970 (53y 11m) Study Date: 02/26/2024 11:31:12 AM Gender: F Tech: [facility] Location: [id number] Ref Provider: ANDREZ MOYER Quality: Adequate Order Provider: ANDREZ MOYER PROCEDURES: Vascular Report: Venous Duplex imaging was performed bilaterally in the lower extremities.The common femoral, femoral, popliteal, posterior tibial, peroneal veins wereevaluated for patency, spontaneity and phasicity with Doppler, compression and augmentationmaneuvers. Great saphenous vein proximal at the junction was evaluated with compressionmaneuvers. INDICATIONS: bilateral lower extremity swelling - FINDINGS: Performing Revenue Research Analyst: Merna Lynne RDMS, RVT. Bilateral: Venous Doppler [...] above. Electronically Signed By: Ander Jaffe MD [facility] 02/27/2024 10:22:04 PM TRIMMER CLIMBER us Andrez Moyer MD IMG US PROCEDURES Final Result * XR Chest 1 View (02/26/2024 12:35 PM TRIMMER CLIMBER) Anatomical Region Laterality Modality Body, Chest N/A Computed Radiogr aphy 02/26/2024 12:5 0 PM TRIMMER CLIMBER Impressions 02/26/2024 12:50 PM TRIMMER CLIMBER Comparison is made to chest radiograph dated [...] Minnie Rivera M.D. Narrative 02/26/2024 12:50 PM TRIMMER CLIMBER EXAMINATION: 1 view chest radiograph Procedure Note [...] * Blood culture Blood (02/26/2024 12:35 PM TRIMMER CLIMBER) Report Final Report: No growth Blood 02/26/2024 12:3 5 PM TRIMMER CLIMBER 02/26/2024 1:25 PM TRIMMER CLIMBER Narrative [facility] - 03/01/2024 4:00 PM TRIMMER CLIMBER From a different site than #1. Collection->Peripheral [...] performance characteristics have been verified by the [facility]. For questions about this culture, contact the Microbiology Laboratory at [phone]. Interpretive data was last revised on 23. Result [facility] Krysten Cohn MD LAB MICROBIOLOGY - NERAL ORDERABLES Final Result Performing Organization Address [facility] Co de Phone Number [facility] [place] [address] * Oxyhemoglobin, central venous (02/26/2024 12:24 PM TRIMMER CLIMBER) Oxyhemoglobin, CV 73.1 % Comment: Interpretive Data No reference range established. Current interpretive data was last revised 2019. Blood 02/26/2024 12:2 4 PM TRIMMER CLIMBER 02/26/2024 12:31 PM TRIMMER CLIMBER Krysten Cohn MD LAB BLOOD ORDERABLES Final Result Performing Organization Address [facility] de Phone Number [facility] [place] [address] * (ABNORMAL) Erythrocyte sedimentation rate (02/26/2024 12:18 PM TRIMMER CLIMBER) Erythrocyte sedimentation rate 67(H) 1 - 30 mm/hr Blood 02/26/2024 12:1 8 PM TRIMMER CLIMBER 02/26/2024 12:50 PM TRIMMER CLIMBER Result [facility] Beata Pérez NP LAB BLOOD ORDERABLES F inal Result Performing Organization Address City/[facility] Co de Phone Number [facility] [place] [address] * (ABNORMAL) CRP (acute phase) (02/26/2024 12:18 PM TRIMMER CLIMBER) [facility] CRP 541.4(H) <=10.0 mg/L Comment:Repeated on Dilution Blood 02/26/2024 12:1 8 PM TRIMMER CLIMBER 02/26/2024 12:49 PM TRIMMER CLIMBER Beata Pérez NP LAB BLOOD ORDERABLES F inal Result Performing Organization Address [facility] de Phone Number [facility] [place] [address] * (ABNORMAL) Blood gas, venous (02/26/2024 12:18 PM TRIMMER CLIMBER) [facility] pH, Venous 7.31(L) 7.32 - 7.43 PCO2, Venous 58(H) 40 - 50 mmHg [facility] PO2, Venous 39 mmHg [facility] Comment: Interpretive Data No Reference Range Established Current Interpretive Data was last revised on 2017. HCO3 Venous, Calculated 30 20 - 30 mmol/L [facility] BE, venous 2 mmol/L [facility] Comment: Interpretive Data No Reference Range Established Current Interpretive Data was last revised on 2017. Blood 02/26/2024 12:1 8 PM TRIMMER CLIMBER 02/26/2024 12:31 PM TRIMMER CLIMBER Beata Pérez NP LAB BLOOD ORDERABLES F inal Result Performing Organization Address [facility] Co de Phone Number [facility] [place] [address] * POCT glucose (02/26/2024 11:45 AM TRIMMER CLIMBER) Pathologist [facility] Glucose, POC 80 70 - 199 mg/dL Blood 02/26/2024 11:4 5 AM TRIMMER CLIMBER 02/26/2024 11:45 AM TRIMMER CLIMBER us Krysten Cohn MD LAB POCT ORDERABLES - DEVICE Final Result [facility] [place] [address] * [place] ARTL CATHJ/CANNULJ MNTR/TRANSFUSION SPX PRQ (02/26/2024 11:24 AM TRIMMER CLIMBER) Narrative Andrez Moyer MD - 02/26/2024 11:24 AM TRIMMER CLIMBER Odalis Beebe MD 02/26/2024 11:26 AM Arterial Line Insertion Date/Time: 02/26/2024 11:24 AM Performed by: Odalis Beebe MD Authorized by: Odalis Beebe MD [place] Protocol: RN Notified of Procedure: yes Informed consent: Patient/motor vehicle representative/guardian agrees and accepts Patient's stated name/ [...] (ABNORMAL) Blood culture Blood (02/26/2024 11:13 AM TRIMMER CLIMBER) [facility] Direct Specimen Exam Molecular Analysis: Staphylococcus epidermidis (methicillin-resis tant) detected by tru ePlex BCID-GP panel. Single positive culture may represent contamination. This test does not exclude the possibility of a mixed bacterial infection. Notification of: Staphylococcus epidermidis (methicillin-resis tant) called to and read back by: Jones London MD, on 02/27/2024 10:23:47 by: Jarret Harrison([facility]) Direct Specimen Exam Stain: Gram Positive Cocci in clusters Time to culture positivity (aerobic media): 18.7 hours Notification of: Gram Positive Cocci in clusters called to and read back by: Jones London MD, on 02/27/2024 08:40:08 by: Jarret Harrison([facility]) [facility] Report Final Report: Staphylococcus epidermidis Single blood culture positive for this microorganism. Isolate is a possible contaminant. If a similar isolate is recovered from a second blood culture collected within 3 days of this culture, both will be evaluated and, if determined to be the same species, antimicrobial susceptibility testing will be performed. (.) [facility] Organism STAPHYLOCOCCUS EPIDERMIDIS [facility] Blood 02/26/2024 11:1 3 AM TRIMMER CLIMBER 02/26/2024 1:24 PM TRIMMER CLIMBER Narrative [facility] - 03/02/2024 9:35 AM TRIMMER CLIMBER Collection->Peripheral 1. Blood cultures are incubated for [...] performance characteristics have been verified by the [facility]. For questions about this culture, contact the Microbiology Laboratory at [phone]. Interpretive data was last revised on 23. us Krysten Cohn MD LAB MICROBIOLOGY - Triggertrap ORDERABLES Final Result [facility] [place] [address] * TRANSTHORACIC ECHO (TTE) COMPLETE W DOPPLER/CF W CONTRAST (02/26/2024 10:03 AM TRIMMER CLIMBER) LV EF 55 % CARDIOREPORT Anatomical Region Laterality Modality Ultrasound 02/26/2024 9:30 AM TRIMMER CLIMBER Narrative 02/26/2024 10:21 AM TRIMMER CLIMBER Patient name: Nolvia Branch Date of test: 02/26/2024 Type of test: TTE w/Doppler Hospital #: 0 Date of : 1970 (F) Revenue Research Analyst: Marley Barnett RDCS Referring Physician: ANDREZ MOYER MD Contrast Agent: 1.1 ml Optison Administered, (1.9 ml wasted). Contrast Administered by: floor RN Supervised/Interpreted by: Pastora Rodriguez MD Diagnosis: Dyspnea/Shortness of breath Location: [facility] Reason for test: Acute hypoxia w/ [...] 2=Hypo 3=Akinetic 4=Dyskin./Aneurysm 0=Not visualized) Parasternal Long [place]:MAS=1 BAS=1 MIL=1 COY=1 Parasternal Short [place]:MAS=1 MIS=1 IL=1 MIL=1 MAL=1 MA=1 Apical 4 Chambers:=1 MIS=1 BIS=1 BAL=1 MAL=1 AL=1 AC=1 Apical 2 Chambers:AI=1 IL=1 BI=1 BA=1 MA=1 AA=1 AC=1 LV Global [...] MD By signing this report, the attending rn complex care certifies that he or she has personally supervised and interpreted the echocardiogram and has reviewed and or edited and agrees with the written comments contained within the report. Procedure Note Dave Rodriguez MD - 02/26/2024 Patient name: Nolvia Branch Date of test: 02/26/2024 Type of test: TTE w/[facility] Ed #: 0 Date of : 1970 (F) Revenue Research Analyst: Marley Barnett RDCS Referring Physician: ANDREZ MOYER MD Contrast Agent: 1.1 ml Optison Administered, (1.9 ml wasted). Contrast Administered by: reza RN Supervised/Interpreted by: Pastora Rodriguez MD Diagnosis: Dyspnea/Shortness of breath Location: [facility] Reason for test: Acute hypoxia w/ [...] 2=Hypo 3=Akinetic 4=Dyskin./Aneurysm 0=Not visualized) Parasternal Long [place]:MAS=1 BAS=1 MIL=1 COY=1 Parasternal Short [place]:MAS=1 MIS=1 IL=1 MIL=1 MAL=1 MA=1 Apical 4 Chambers:=1 MIS=1 BIS=1 BAL=1 MAL=1 AL=1 AC=1 Apical 2 Chambers:AI=1 IL=1 BI=1 BA=1 MA=1 AA=1 AC=1 LV Global [...] MD By signing this report, the attending rn complex care certifies that he or she has personally supervised and interpreted the echocardiogram and has reviewed and or edited and agrees with the written comments contained within the report. Andrez Moyer MD CV ECHO PROCEDURES Final Result * [place] INSJ NON-TUNNELED CENTRAL VENOUS CATH AGE 5 YR/> (02/26/2024 10:00 AM TRIMMER CLIMBER) Narrative Andrez Moyer MD - 02/26/2024 10:00 AM TRIMMER CLIMBER Ann Whitmore MD 02/27/2024 2:43 PM Trialysis catheter insertion Date/Time: 02/26/2024 10:00 AM Performed by: Ann Whitmore MD Authorized by: Ann Whitmore MD [place] Protocol: RN Notified of Procedure: yes Informed [...] and Chemistries, Venous - (02/26/2024 9:56 AM TRIMMER CLIMBER) pH, [place] POC 7.32 7.32 - 7.43 pCO2, [place]ris POC 56(H) 40 - 50 mmHg [facility] pO2, [place] POC 54 mmHg [facility] Na, POC 136 135 - 145 mmol/L [facility] K POC 3.3 3.3 - 4.9 mmol/L [facility] Comment: Interpretive Data Not all point of care methods assess for hemolysis. Confirm with instrument and retest K+ if not consistent with clinical signs and symptoms. Current Interpretive Data was last revised on 2023. Cl, POC 99 97 - 110 mmol/L [facility] Ionized Ca, POC 4.81 4.50 - 5.10 mg/dL [facility] Glucose, POC 104 70 - 199 mg/dL [facility] Lactate, POC 1.3 0.7 - 2.2 mmol/L [facility] O2 Sat, [place] POC (Angelica) 85 % [facility] Base excess, POC 2.2 mmol/L [facility] HCO3, [place] POC 29 20 - 30 mmol/L [facility] Hct, POC 25.0(L) 36.3 - 45.3 % [facility] Total Hb, POC 8.4(L) 11.9 - 15.5 g/dL [facility] Blood 02/26/2024 9:56 AM TRIMMER CLIMBER 02/26/2024 9:56 AM TRIMMER CLIMBER us Krysten Cohn MD LAB POCT ORDERABLES - DEVICE Final Result [facility] [place] [address] * Lactate (02/26/2024 9:50 AM TRIMMER CLIMBER) Lactate 1.3 0.7 - 2.0 mmol/L Blood 02/26/2024 9:50 AM TRIMMER CLIMBER 02/26/2024 10:12 AM TRIMMER CLIMBER us Krysten Cohn MD LAB BLOOD ORDERABLES Final Result [facility] [place] [address] * (ABNORMAL) eGFR (02/26/2024 9:50 AM TRIMMER CLIMBER) eGFR 15(L) >=60 mL/min/1. 73 m2 Comment: [...] last reviewed 2021. Blood 02/26/2024 9:50 AM TRIMMER CLIMBER 02/26/2024 10:12 AM TRIMMER CLIMBER us Krysten Cohn MD LAB BLOOD ORDERABLES Final Result [facility] [place] [address] * (ABNORMAL) Differential, auto (02/26/2024 9:50 AM TRIMMER CLIMBER) Neutrophil abs 17.6(H) 1.5 - 6.5 K/cumm Imm gran abs 0.2(H) 0.0 - 0.1 K/cumm [facility] Lymphocyte abs 1.0 0.8 - 3.3 K/cumm [facility] Monocyte abs 1.9(H) 0.2 - 0.8 K/cumm [facility] Eosinophil abs 0.1 0.0 - 0.5 K/cumm [facility] Basophil abs 0.2(H) 0.0 - 0.1 K/cumm [facility] Neutrophil pct 84.5 % [facility] Comment: Interpretive Data Percent cell count reference ranges are not reported, since discordance with absolute values may lead to misinterpretation of CBC data. Current Interpretive Data was last revised on 2017. Imm gran pct 0.9 % [facility] Comment: Interpretive Data Percent cell count reference ranges are not reported, since discordance with absolute values may lead to misinterpretation of CBC data. Current Interpretive Data was last revised on 2017. Lymphocyte pct 4.6 % [facility] Comment: Interpretive Data Percent cell count reference ranges are not reported, since discordance with absolute values may lead to misinterpretation of CBC data. Current Interpretive Data was last revised on 2017. Monocyte pct 8.9 % [facility] Comment: Interpretive Data Percent cell count reference ranges are not reported, since discordance with absolute values may lead to misinterpretation of CBC data. Current Interpretive Data was last revised on 2017. Eosinophil pct 0.3 % [facility] Comment: Interpretive Data Percent cell count reference ranges are not reported, since discordance with absolute values may lead to misinterpretation of CBC data. Current Interpretive Data was last revised on 2017. Basophil pct 0.8 % [facility] Comment: Interpretive Data Percent cell count reference ranges are not reported, since discordance with absolute values may lead to misinterpretation of CBC data. Current Interpretive Data was last revised on 2017. Blood 02/26/2024 9:50 AM TRIMMER CLIMBER 02/26/2024 10:11 AM TRIMMER CLIMBER us Krysten Cohn MD LAB BLOOD ORDERABLES Final Result [facility] [place] [address] * (ABNORMAL) CBC with auto differential (02/26/2024 9:50 AM TRIMMER CLIMBER) WBC 20.8(H) 3.8 - 9.9 K/cumm Hgb 8.3(L) 11.9 - 15.5 g/dL [facility] Hct 26.5(L) 35.6 - 45.5 % [facility] Plt 137(L) 150 - 400 K/cumm [facility] MPV 9.9 9.1 - 12.3 fL [facility] RBC 2.44(L) 3.90 - 5.20 M/cumm [facility] MCV 108.6(H) 81.3 - 96.4 fL [facility] MCH 34.0(H) 27.1 - 33.3 pg [facility] MCHC 31.3(L) 32.3 - 35.7 g/dL [facility] RDW CV 15.4(H) 11.1 - 14.9 % [facility] RDW SD 61.4(H) 35.7 - 48.1 fL [facility] NRBC abs 0.02(H) 0.00 - 0.01 K/cumm [facility] Blood 02/26/2024 9:50 AM TRIMMER CLIMBER 02/26/2024 10:11 AM TRIMMER CLIMBER us Krysten Cohn MD LAB BLOOD ORDERABLES Final Result [facility] [place] [address] * (ABNORMAL) Blood gas, venous (02/26/2024 9:50 AM TRIMMER CLIMBER) pH, Venous 7.29(L) 7.32 - 7.43 PCO2, Venous 62(H) 40 - 50 mmHg [facility] PO2, Venous 41 mmHg [facility] Comment: Interpretive Data No Reference Range Established Current Interpretive Data was last revised on 2017. HCO3 Venous, Calculated 31(H) 20 - 30 mmol/L [facility] BE, venous 2 mmol/L [facility] Comment: Interpretive Data No Reference Range Established Current Interpretive Data was last revised on 2017. Blood 02/26/2024 9:50 AM TRIMMER CLIMBER 02/26/2024 10:04 AM TRIMMER CLIMBER us Krysten Cohn MD LAB BLOOD ORDERABLES Final Result [facility] [place] [address] * (ABNORMAL) Comprehensive metabolic panel (02/26/2024 9:50 AM TRIMMER CLIMBER) Sodium 136 135 - 145 mmol/L Potassium, pl 3.5 3.3 - 4.9 mmol/L [facility] Chloride 94(L) 97 - 110 mmol/L [facility] CO2 30 22 - 32 mmol/L [facility] Anion gap 12 2 - 15 mmol/L [facility] BUN 50(H) 6 - 25 mg/dL [facility] Creatinine 3.55(H) 0.60 - 1.10 mg/dL [facility] Glucose 97 70 - 199 mg/dL [facility] Comment: Interpretive Data Fasting glucose >/= [...] 2022. Calcium 9.1 8.5 - 10.3 mg/dL [facility] Bilirubin, total 0.6 0.1 - 1.2 mg/dL [facility] Protein, pl 5.8(L) 6.5 - 8.5 g/dL [facility] Albumin 2.3(L) 3.5 - 5.0 g/dL [facility] Alk phos 183(H) 40 - 130 Units/L [facility] ALT 13 7 - 45 Units/L [facility] AST 41 10 - 45 Units/L [facility] Blood 02/26/2024 9:50 AM TRIMMER CLIMBER 02/26/2024 10:12 AM TRIMMER CLIMBER us Krysten Cohn MD LAB BLOOD ORDERABLES Final Result [facility] [place] [address] * XR Chest 1 View (02/26/2024 9:09 AM TRIMMER CLIMBER) Anatomical Region Laterality Modality Body, Chest N/A Computed Radiogr aphy 02/26/2024 9:56 AM TRIMMER CLIMBER Impressions 02/26/2024 9:56 AM TRIMMER CLIMBER The current study is compared with the prior radiograph dated 02/25/2024. Again seen are patchy multifocal airspace opacities concerning for pneumonia. No effusions. There is no pneumothorax.. The heart and mediastinal contours are stable.. Right shoulder prosthesis partially imaged Electronically signed by: Alexa Hernández M.D. Narrative 02/26/2024 9:56 AM TRIMMER CLIMBER EXAMINATION: 1 view chest radiograph Procedure Note [...] Result * (ABNORMAL) eGFR (02/26/2024 7:52 AM TRIMMER CLIMBER) eGFR 14(L) >=60 mL/min/1. 73 m2 Comment: [...] last reviewed 2021. Blood 02/26/2024 7:52 AM TRIMMER CLIMBER 02/26/2024 8:04 AM TRIMMER CLIMBER us Krysten Cohn MD LAB BLOOD ORDERABLES Final Result [facility] [place] [address] * (ABNORMAL) Protime-INR (02/26/2024 7:52 AM TRIMMER CLIMBER) PT 14.8(H) 9.7 - 13.0 sec INR 1.36(H) 0.90 - 1.20 [facility] Comment: Interpretive data Oral anticoagulant therapeutic ranges: Venous thromboembolism prophylaxis or treatment: 2.0-3.0 CARDIOLOGY Standard range: 2.0-3.0 High-intensity range: 2.5-3.5 Refer to indication-specific guidelines for appropriate target ranges for prosthetic heart valve replacement. Current interpretive data was last revised on 2019. Blood 02/26/2024 7:52 AM TRIMMER CLIMBER 02/26/2024 8:03 AM TRIMMER CLIMBER us Krysten Cohn MD LAB BLOOD ORDERABLES Final Result Performing Organization Address [facility] Co de Phone Number [facility] [place] [address] * Infection Prevention MRSA Only (Staphylococcus aureus) Culture Nasal (02/26/2024 7:52 AM TRIMMER CLIMBER) Report Final Report: Negative Nasal 02/26/2024 7:52 AM TRIMMER CLIMBER 02/26/2024 1:31 PM TRIMMER CLIMBER Narrative [facility] - 02/27/2024 2:19 PM TRIMMER CLIMBER Testing performed by [facility] ([phone]). us Krysten Cohn MD LAB MICROBIOLOGY - GE NERAL ORDERABLES Final Result Performing Organization Address [facility] de Phone Number [facility] [place] [address] * (ABNORMAL) Blood gas, venous (02/26/2024 7:52 AM TRIMMER CLIMBER) pH, Venous 7.31(L) 7.32 - 7.43 PCO2, Venous 56(H) 40 - 50 mmHg [facility] PO2, Venous 93 mmHg [facility] Comment: Interpretive Data No Reference Range Established Current Interpretive Data was last revised on 2017. HCO3 Venous, Calculated 30 20 - 30 mmol/L [facility] BE, venous 2 mmol/L [facility] Comment: Interpretive Data No Reference Range Established Current Interpretive Data was last revised on 2017. Blood 02/26/2024 7:52 AM TRIMMER CLIMBER 02/26/2024 7:59 AM TRIMMER CLIMBER Krysten Cohn MD LAB BLOOD ORDERABLES Final Result Performing Organization Address [facility] de Phone Number [facility] [place] [address] * (ABNORMAL) Comprehensive metabolic panel (02/26/2024 7:52 AM TRIMMER CLIMBER) Sodium 138 135 - 145 mmol/L Potassium, pl 3.5 3.3 - 4.9 mmol/L [facility] Chloride 97 97 - 110 mmol/L [facility] CO2 30 22 - 32 mmol/L [facility] Anion gap 11 2 - 15 mmol/L [facility] BUN 48(H) 6 - 25 mg/dL [facility] Creatinine 3.56(H) 0.60 - 1.10 mg/dL [facility] Glucose 102 70 - 199 mg/dL [facility] Comment: Interpretive Data Fasting glucose >/= [...] 2022. Calcium 7.9(L) 8.5 - 10.3 mg/dL [facility] Bilirubin, total 0.6 0.1 - 1.2 mg/dL [facility] Protein, pl 5.4(L) 6.5 - 8.5 g/dL [facility] Albumin 2.5(L) 3.5 - 5.0 g/dL [facility] Alk phos 173(H) 40 - 130 Units/L [facility] ALT 10 7 - 45 Units/L [facility] AST 38 10 - 45 Units/L [facility] Blood 02/26/2024 7:52 AM TRIMMER CLIMBER 02/26/2024 8:04 AM TRIMMER CLIMBER us Krysten Cohn MD LAB BLOOD ORDERABLES Final Result [facility] [place] [address] * POCT glucose (02/26/2024 7:14 AM TRIMMER CLIMBER) Glucose, POC 85 70 - 199 mg/dL Blood 02/26/2024 7:14 AM TRIMMER CLIMBER 02/26/2024 7:14 AM TRIMMER CLIMBER Krysten Cohn MD LAB POCT ORDERABLES - DEVICE Final Result [facility] [place] [address] * Critical Care (02/26/2024 7:12 AM TRIMMER CLIMBER) Narrative Andrez Moyer MD - 02/26/2024 7:12 AM TRIMMER CLIMBER Andrez Moyer MD 02/26/2024 7:13 AM Critical [...] plan with the ICU team and other medical/configuration management consultant staff, making frequent assessments and decisions [...] from bedside monitors, laboratory results, and imaging Andrez Moyer MD IN CLINIC/BEDSIDE ORDERABLES Fin al Result * (ABNORMAL) Hemoglobin and hematocrit (02/26/2024 3:29 AM TRIMMER CLIMBER) Hgb 8.5(L) 11.9 - 15.5 g/dL Hct 27.4(L) 35.6 - 45.5 % [facility] Blood 02/26/2024 3:29 AM TRIMMER CLIMBER 02/26/2024 3:39 AM TRIMMER CLIMBER Krysten Cohn MD LAB BLOOD ORDERABLES Final Result Performing Organization Address City/[facility]/ZIP Co de Phone Number [facility] [place] [address] * (ABNORMAL) Blood gas, venous (02/26/2024 3:29 AM TRIMMER CLIMBER) Pathologist [facility] pH, Venous 7.26(L) 7.32 - 7.43 PCO2, Venous 65(H) 40 - 50 mmHg [facility] PO2, Venous 41 mmHg [facility] Comment: Interpretive Data No Reference Range Established Current Interpretive Data was last revised on 2017. HCO3 Venous, Calculated 30 20 - 30 mmol/L [facility] BE, venous 1 mmol/L [facility] Comment: Interpretive Data No Reference Range Established Current Interpretive Data was last revised on 2017. Blood 02/26/2024 3:29 AM TRIMMER CLIMBER 02/26/2024 3:35 AM TRIMMER CLIMBER us Krysten Cohn MD LAB BLOOD ORDERABLES Final Result [facility] [place] [address] * XR Knee Left 1 or 2 Views (02/26/2024 3:14 AM TRIMMER CLIMBER) Anatomical Region Laterality Modality Lower Extremities, Knee Left Digital Radiography 02/26/2024 6:03 AM TRIMMER CLIMBER Impressions 02/26/2024 6:03 AM TRIMMER CLIMBER 1. Limited evaluation of the left knee with mild to moderate tricompartmental osteoarthritis and without radiographic evidence of septic arthritis Electronically signed by: Jeremy Martin MD, PHD Narrative 02/26/2024 6:03 AM TRIMMER CLIMBER EXAMINATION: Left knee one or 2 views [...] Electronically signed by: Jeremy Martin MD, PHD Krysten Cohn MD IMG XR PROCEDURES Fin al Result * [place] INSJ NON-TUNNELED CENTRAL VENOUS CATH AGE 3 YR/> (02/26/2024 12:23 AM TRIMMER CLIMBER) Narrative Barron Ernst MD - 02/26/2024 12:23 AM TRIMMER CLIMBER Barron Ernst MD 02/26/2024 12:27 AM Central Line Insertion Date/Time: 02/26/2024 12:23 AM Performed by: Barron Ernst MD Authorized by: Barron Ernst MD [place] Protocol: RN Notified of Procedure: yes Informed [...] IN CLINIC/BEDSIDE ORDERABLES Fi nal Result * [place] ARTL CATHJ/CANNULJ MNTR/TRANSFUSION SPX PRQ (02/26/2024 12:21 AM TRIMMER CLIMBER) Narrative Barron Ernst MD - 02/26/2024 12:21 AM TRIMMER CLIMBER Barron Ernst MD 02/26/2024 12:22 AM Arterial Line Insertion Date/Time: 02/26/2024 12:21 AM Performed by: Barorn Ernst MD Authorized by: Barron Ernst MD [place] Protocol: RN Notified of Procedure: yes Informed [...] microscopic and culture Urine (02/25/2024 10:54 PM TRIMMER CLIMBER) Color, ur Yellow Yellow Clarity, ur Turbid(A) Clear [facility] Specific gravity, ur 1.018 1.003 - 1.030 [facility] pH, urine 6.0 [facility] Comment: Interpretive Data U rine pH is affected by diet, medications, systemic acid-base disturbances, and renal tubular function. pH may affect urinary stone formation. For example, urine pH below 6.0 may help reduce the tendency for calcium phosphate stones and pH greater than 6.0 may reduce the tendency for uric acid stone formation. Source: [facility] Current Interpretive Data was last revised on 2017 Protein, ur ql 2+(A) Negative [facility] Glucose, ur ql Negative Negative [facility] Ketones, ur Negative Negative [facility] Bilirubin, ur Negative Negative [facility] Blood, ur 3+(A) Negative [facility] Urobilinogen, ur <2.0 <2.0 mg/dL [facility] Nitrite, ur Negative Negative [facility] Leukocyte esterase, ur 3+(A) Negative [facility] UA reflex comment Reflex to microscopic UA will be performed. [facility] Urine 02/25/2024 10:5 4 PM TRIMMER CLIMBER 02/25/2024 11:02 PM TRIMMER CLIMBER us Krysten Cohn MD LAB MICROBIOLOGY - NERAL ORDERABLES Final Result [facility] [place] [address] * (ABNORMAL) Urinalysis, microscopic only (02/25/2024 10:54 PM TRIMMER CLIMBER) Pathologist [facility] WBC, ur >50(A) 0 - 5 /HPF RBC, ur >50(A) 0 - 2 /HPF [facility] Epithelial cells, squamous, ur 6-10(A) 0 - 5 /HPF [facility] Comment:Suggestive of contam ination. Consider recollection by clean catch. Bacteria, ur 1+(A) [facility] Mucous, ur Present(A) [facility] Culture Reflex Comment Reflex to urine culture will be performed. [facility] Urine 02/25/2024 10:5 4 PM TRIMMER CLIMBER 02/25/2024 11:08 PM TRIMMER CLIMBER us Krysten Cohn MD LAB URINE ORDERABLES Final Result Performing Organization Address City/[facility]/ZIP Co de Phone Number [facility] [place] [address] * Urine culture Urine (02/25/2024 10:54 PM TRIMMER CLIMBER) Pathologist [facility] Report Final Report: Less than 100,000 colonies/mL (clinically insignificant growth based on current clinical standards) Organism (CLINICALLY INSIGNIFICANT GROWTH [facility] Urine 02/25/2024 10:5 4 PM TRIMMER CLIMBER 02/26/2024 1:13 AM TRIMMER CLIMBER Narrative [facility] - 02/27/2024 7:56 AM TRIMMER CLIMBER Urine culture reflexed based upon urinalysis results. Testing performed by [facility] ([phone]) us Krysten Cohn MD LAB MICROBIOLOGY - GE NERAL ORDERABLES Final Result [facility] [place] [address] * (ABNORMAL) Blood gas, venous (02/25/2024 10:54 PM TRIMMER CLIMBER) pH, Venous 7.28(L) 7.32 - 7.43 PCO2, Venous 63(H) 40 - 50 mmHg [facility] PO2, Venous 58 mmHg [facility] Comment: Interpretive Data No Reference Range Established Current Interpretive Data was last revised on 2017. HCO3 Venous, Calculated 30 20 - 30 mmol/L [facility] BE, venous 2 mmol/L [facility] Comment: Interpretive Data No Reference Range Established Current Interpretive Data was last revised on 2017. Blood 02/25/2024 10:5 4 PM TRIMMER CLIMBER 02/25/2024 11:01 PM TRIMMER CLIMBER us Krysten Cohn MD LAB BLOOD ORDERABLES Final Result [facility] [place] [address] * Critical Care (02/25/2024 7:45 PM TRIMMER CLIMBER) Narrative Gabriel Tsang MD - 02/25/2024 7:45 PM TRIMMER CLIMBER Gabriel Tsang MD 02/26/2024 9:09 PM Critical [...] plan with the ICU team and other medical/configuration management consultant staff, making frequent assessments and decisions [...] Troponin I high-sensitivity 6-hour (02/25/2024 7:37 PM TRIMMER CLIMBER) Trop I hs 73(H) <=17 ng/L Comment: Interpretive Data For further hscTnI resources including the diagnostic algorithm and an aid in interpretation, copy and paste this link: https://bjhlab.testcatalog.org/show/hsTrop-[email or web address] Current Interpretive Data last revised 2019. Trop I hs delta See Comment ng/L [facility] Comment:Inappropriate collec tion time to report a delta. Trop I hs pct delta See Comment % [facility] Comment:Inappropriate collec tion time to report a delta. Trop I hs interp See Comment [facility] Comment:Inappropriate collec tion time to report a delta. Blood 02/25/2024 7:37 PM TRIMMER CLIMBER 02/25/2024 8:02 PM TRIMMER CLIMBER Andrez Moyer MD LAB BLOOD ORDERABLES Final Resul t [facility] [place] [address] * (ABNORMAL) eGFR (02/25/2024 7:37 PM TRIMMER CLIMBER) eGFR 15(L) >=60 mL/min/1. 73 m2 Comment: [...] last reviewed 2021. Blood 02/25/2024 7:37 PM TRIMMER CLIMBER 02/25/2024 7:52 PM TRIMMER CLIMBER Krysten Cohn MD LAB BLOOD ORDERABLES Final Result Performing Organization Address City/[facility] Co de Phone Number [facility] [place] [address] * (ABNORMAL) Calcium, ionized (02/25/2024 7:37 PM TRIMMER CLIMBER) Calcium, Ionized 3.65(L) 4.50 - 5.10 mg/dL Blood 02/25/2024 7:37 PM TRIMMER CLIMBER 02/25/2024 7:52 PM TRIMMER CLIMBER Andrez Moyer MD LAB BLOOD ORDERABLES Final Resul t Performing Organization Address [facility] de Phone Number [facility] [place] [address] * (ABNORMAL) Protime-INR (02/25/2024 7:37 PM TRIMMER CLIMBER) PT 14.9(H) 9.7 - 13.0 sec INR 1.37(H) 0.90 - 1.20 [facility] Comment: Interpretive data Oral anticoagulant therapeutic ranges: Venous thromboembolism prophylaxis or treatment: 2.0-3.0 CARDIOLOGY Standard range: 2.0-3.0 High-intensity range: 2.5-3.5 Refer to indication-specific guidelines for appropriate target ranges for prosthetic heart valve replacement. Current interpretive data was last revised on 2019. Blood 02/25/2024 7:37 PM TRIMMER CLIMBER 02/25/2024 7:58 PM TRIMMER CLIMBER Krysten Cohn MD LAB BLOOD ORDERABLES Final Result Performing Organization Address [facility] Co de Phone Number [facility] [place] [address] * (ABNORMAL) CBC without differential (02/25/2024 7:37 PM TRIMMER CLIMBER) [facility] WBC 24.0(H) 3.8 - 9.9 K/cumm Hgb 8.7(L) 11.9 - 15.5 g/dL [facility] Hct 28.6(L) 35.6 - 45.5 % [facility] Plt 198 150 - 400 K/cumm [facility] MPV 10.0 9.1 - 12.3 fL [facility] RBC 2.55(L) 3.90 - 5.20 M/cumm [facility] MCV 112.2(H) 81.3 - 96.4 fL [facility] Comment:MCV delta due to savi gical procedure. MCH 34.1(H) 27.1 - 33.3 pg [facility] MCHC 30.4(L) 32.3 - 35.7 g/dL [facility] RDW CV 15.6(H) 11.1 - 14.9 % [facility] RDW SD 64.5(H) 35.7 - 48.1 fL [facility] NRBC abs 0.02(H) 0.00 - 0.01 K/cumm [facility] Blood 02/25/2024 7:37 PM TRIMMER CLIMBER 02/25/2024 8:02 PM TRIMMER CLIMBER us Andrez Moyer MD LAB BLOOD ORDERABLES Final Resul t [facility] [place] [address] * (ABNORMAL) Phosphorus (02/25/2024 7:37 PM TRIMMER CLIMBER) [facility] Phosphorus, pl 7.3(H) 2.3 - 4.5 mg/dL Blood 02/25/2024 7:37 PM TRIMMER CLIMBER 02/25/2024 7:52 PM TRIMMER CLIMBER us Andrez Moyer MD LAB BLOOD ORDERABLES Final Resul t Performing Organization Address City/[facility] Co de Phone Number [facility] [place] [address] * Magnesium (02/25/2024 7:37 PM TRIMMER CLIMBER) Pathologist [facility] Magnesium 1.4 1.4 - 2.5 mg/dL Blood 02/25/2024 7:37 PM TRIMMER CLIMBER 02/25/2024 7:52 PM TRIMMER CLIMBER Andrez Moyer MD LAB BLOOD ORDERABLES Final Resul t Performing Organization Address [facility] de Phone Number [facility] [place] [address] * (ABNORMAL) Comprehensive metabolic panel (02/25/2024 7:37 PM TRIMMER CLIMBER) [facility] Sodium 137 135 - 145 mmol/L Potassium, pl 3.7 3.3 - 4.9 mmol/L [facility] Chloride 93(L) 97 - 110 mmol/L [facility] CO2 29 22 - 32 mmol/L [facility] Anion gap 15 2 - 15 mmol/L [facility] BUN 45(H) 6 - 25 mg/dL [facility] Creatinine 3.43(H) 0.60 - 1.10 mg/dL [facility] Glucose 100 70 - 199 mg/dL [facility] Comment: Interpretive Data Fasting glucose >/= [...] 2022. Calcium 7.7(L) 8.5 - 10.3 mg/dL [facility] Bilirubin, total 0.6 0.1 - 1.2 mg/dL [facility] Protein, pl 6.0(L) 6.5 - 8.5 g/dL [facility] Albumin 2.6(L) 3.5 - 5.0 g/dL [facility] Alk phos 167(H) 40 - 130 Units/L [facility] ALT 15 7 - 45 Units/L [facility] AST 42 10 - 45 Units/L [facility] Blood 02/25/2024 7:37 PM TRIMMER CLIMBER 02/25/2024 7:52 PM TRIMMER CLIMBER us Krysten Cohn MD LAB BLOOD ORDERABLES Final Result [facility] [place] [address] * (ABNORMAL) POC Blood Gas and Chemistries, Venous - (02/25/2024 7:17 PM TRIMMER CLIMBER) pH, [place] POC 7.26(L) 7.32 - 7.43 pCO2, [place] POC 67(H) 40 - 50 mmHg [facility] pO2, [place] POC 45 mmHg [facility] Na, POC 135 135 - 145 mmol/L [facility] K POC 3.6 3.3 - 4.9 mmol/L [facility] Comment: Interpretive Data Not all point of care methods assess for hemolysis. Confirm with instrument and retest K+ if not consistent with clinical signs and symptoms. Current Interpretive Data was last revised on 2023. Cl, POC 96(L) 97 - 110 mmol/L [facility] Ionized Ca, POC 3.94(L) 4.50 - 5.10 mg/dL [facility] Glucose, POC 102 70 - 199 mg/dL [facility] Lactate, POC 1.7 0.7 - 2.2 mmol/L [facility] O2 Sat, [place] POC (Angelica) 70 % [facility] Base excess, POC 2.1 mmol/L [facility] HCO3, [place] POC 30 20 - 30 mmol/L [facility] Hct, POC 28.0(L) 36.3 - 45.3 % [facility] Total Hb, POC 9.3(L) 11.9 - 15.5 g/dL [facility] Blood 02/25/2024 7:17 PM TRIMMER CLIMBER 02/25/2024 7:17 PM TRIMMER CLIMBER us Krysten Cohn MD LAB POCT ORDERABLES - DEVICE Final Result Performing Organization Address City/[facility]/ZIP Co de Phone Number [facility] [place] [address] * POCT glucose (02/25/2024 5:28 PM TRIMMER CLIMBER) [facility] Glucose, POC 125 70 - 199 mg/dL Blood 02/25/2024 5:28 PM TRIMMER CLIMBER 02/25/2024 5:28 PM TRIMMER CLIMBER us Krysten Cohn MD LAB POCT ORDERABLES - DEVICE Final Result Performing Organization Address [facility] Co de Phone Number [facility] [place] [address] * [place] INSJ NON-TUNNELED CENTRAL VENOUS CATH AGE 5 YR/> (02/25/2024 5:21 PM TRIMMER CLIMBER) Narrative Andrez Moyer MD - 02/25/2024 5:21 PM TRIMMER CLIMBER Cody Valera MD 02/25/2024 5:28 PM Central Line Insertion Date/Time: 02/25/2024 5:21 PM Performed by: Cody Valera MD Authorized by: Andrez Moyer MD [place] Protocol: RN Notified of Procedure: yes Informed [...] Troponin I high-sensitivity 2-hour (02/25/2024 4:43 PM TRIMMER CLIMBER) Trop I hs 72(H) <=17 ng/L Comment: Interpretive Data For further hscTnI resources including the diagnostic algorithm and an aid in interpretation, copy and paste this link: https://bjhlab.testcatalog.org/show/hsTrop-1 Current Interpretive Data last revised 2019. Trop I hs delta -8 ng/L M[facility] DEY Trop I hs interp Equivocal [facility] Blood 02/25/2024 4:43 PM TRIMMER CLIMBER 02/25/2024 5:27 PM TRIMMER CLIMBER Andrez Moyer MD LAB BLOOD ORDERABLES Final Resul t [facility] [place] [address] * ECG 12 lead (02/25/2024 4:04 PM TRIMMER CLIMBER) [facility] Ventricular Rate EKG/Min 79 BPM [facility] Atrial Rate 79 BPM [facility] [place]-Interval (MSEC) 184 ms [facility] QRS-Interval (MSEC) 114 ms [facility] QT-Interval (MSEC) 408 ms [facility] QTc 467 ms [facility] P [place] 64 degrees [facility] R [place] 20 degrees [facility] T [place] 26 degrees [facility] Diagnosis Normal sinus rhythm Low voltage QRS Abnormal ECG When compared with ECG of 15-FEB-2024 08:38, No significant change was found Confirmed by LATHA HAAS M.D ([id number]) on 02/28/2024 12:24:07 PM [facility] 02/25/2024 4:04 PM TRIMMER CLIMBER 02/28/2024 12:24 PM TRIMMER CLIMBER us Andrez Moyer MD ECG ORDERABLES Final Result Performing Organization Address [facility]/ZIP Co de Phone Number [facility] * POCT glucose (02/25/2024 3:07 PM TRIMMER CLIMBER) [facility] Glucose, POC 145 70 - 199 mg/dL Blood 02/25/2024 3:07 PM TRIMMER CLIMBER 02/25/2024 3:07 PM TRIMMER CLIMBER us Krysten Cohn MD LAB POCT ORDERABLES - DEVICE Final Result [facility] [place] [address] * Critical Care (02/25/2024 3:02 PM TRIMMER CLIMBER) Narrative Andrez Moyer MD - 02/25/2024 3:02 PM TRIMMER CLIMBER Andrez Moyer MD 02/26/2024 6:59 AM Critical [...] plan with the ICU team and other medical/configuration management consultant staff, making frequent assessments and decisions [...] (baseline, 2hr, 4hr, 6hr) (02/25/2024 2:55 PM TRIMMER CLIMBER) Trop I hs 80(H) <=17 ng/L Comment: Interpretive Data For further hscTnI resources including the diagnostic algorithm and an aid in interpretation, copy and paste this link: https://bjhlab.testcatalog.org/show/hsTrop-1 Current Interpretive Data last revised 2019. Blood 02/25/2024 2:55 PM TRIMMER CLIMBER 02/25/2024 3:03 PM TRIMMER CLIMBER us Andrez Moyer MD LAB BLOOD ORDERABLES Final Resul t [facility] [place] [address] * Respiratory pathogen panel Nasopharyngeal (02/25/2024 2:55 PM TRIMMER CLIMBER) [facility] Influenza A RNA Not Detected Not Detected Influenza B RNA Not Detected Not Detected [facility] RSV RNA Not Detected Not Detected [facility] COVID-19 RNA Not Detected Not Detected [facility] Coronavirus 229E RNA Not Detected Not Detected [facility] Coronavirus HKU1 RNA Not Detected Not Detected [facility] Coronavirus NL63 RNA Not Detected Not Detected [facility] Coronavirus OC43 RNA Not Detected Not Detected [facility] Adenovirus DNA Not Detected Not Detected [facility] Metapneumovirus RNA Not Detected Not Detected [facility] Rhinovirus/Enterov irus RNA Not Detected Not Detected [facility] Parainfluenza 1 RNA Not Detected Not Detected [facility] Parainfluenza 2 RNA Not Detected Not Detected [facility] Parainfluenza 3 RNA Not Detected Not Detected [facility] Parainfluenza 4 RNA Not Detected Not Detected [facility] B. pertussis DNA Not Detected Not Detected [facility] B. parapertussis DNA Not Detected Not Detected [facility] C. pneumoniae DNA Not Detected Not Detected [facility] M. pneumoniae DNA Not Detected Not Detected [facility] Nasopharyngeal 02/25/2024 2: 55 PM TRIMMER CLIMBER 02/25/2024 3:03 PM TRIMMER CLIMBER Narrative [facility] - 02/25/2024 4:05 PM TRIMMER CLIMBER Is the Patient experiencing symptoms consistent with COVID?->Unknown Surveillance testing for transplant patient?->No Interpretive Data The [employer] FilmArray Respiratory Panel (RP2.1) assay is a [...] assay has FDA clearance for testing of GOVERNMENT TEACHER swabs. The performance of additional specimen types has been assessed by the performing laboratory. The performance characteristics of this assay have been determined by [facility] Molecular Infectious Disease Laboratory. Current interpretive data was last revised on 21. Krysten Cohn MD LAB MICROBIOLOGY - [facility] ORDERABLES Final Result [facility] [place] [address] * [place] ARTL CATHJ/CANNULJ MNTR/TRANSFUSION SPX PRQ (02/25/2024 12:00 PM TRIMMER CLIMBER) Narrative Andrez Moyer MD - 02/25/2024 12:00 PM TRIMMER CLIMBER Andrez Moyer MD 02/26/2024 7:11 AM Arterial Line Insertion Date/Time: 02/25/2024 12:00 PM Performed by: Andrez Moyer MD Authorized by: Andrez Moyer MD [place] Protocol: RN Notified of Procedure: yes Informed [...] lt * POCT glucose (02/25/2024 11:06 AM TRIMMER CLIMBER) Glucose, POC 130 70 - 199 mg/dL Blood 02/25/2024 11:0 6 AM TRIMMER CLIMBER 02/25/2024 11:06 AM TRIMMER CLIMBER us Krysten Cohn MD LAB POCT ORDERABLES - DEVICE Final Result [facility] [place] [address] * Lactate (02/25/2024 11:05 AM TRIMMER CLIMBER) Lactate 1.7 0.7 - 2.0 mmol/L Blood 02/25/2024 11:0 5 AM TRIMMER CLIMBER 02/25/2024 11:16 AM TRIMMER CLIMBER Andrez Moyer MD LAB BLOOD ORDERABLES [place] [address] * (ABNORMAL) eGFR (02/25/2024 11:05 AM TRIMMER CLIMBER) eGFR 17(L) >=60 mL/min/1. 73 m2 Comment: [...] reviewed 2021. Blood 02/25/2024 11:0 5 AM TRIMMER CLIMBER 02/25/2024 11:12 AM TRIMMER CLIMBER us Andrez Moyer MD LAB BLOOD ORDERABLES Final Resul t M[facility] [place] [address] * (ABNORMAL) Pro B-type natriuretic peptide (02/25/2024 11:05 AM TRIMMER CLIMBER) NT-proBNP 36,208(H) <=300 pg/mL Comment: Interpretive Comments: [...] Date: 2017. Blood 02/25/2024 11:0 5 AM TRIMMER CLIMBER 02/25/2024 11:12 AM TRIMMER CLIMBER us Andrez Moyer MD LAB BLOOD ORDERABLES Final Resul t [facility] [place] [address] * (ABNORMAL) Thyroid Function Mathews (02/25/2024 11:05 AM TRIMMER CLIMBER) TSH 4.96(H) 0.30 - 4.20 mcIUnit/mL Blood 02/25/2024 11:0 5 AM TRIMMER CLIMBER 02/25/2024 11:12 AM TRIMMER CLIMBER us Andrez Moyer MD LAB BLOOD ORDERABLES Final Resul t Performing Organization Address [facility] de Phone Number [facility] [place] [address] * (ABNORMAL) Calcium, ionized (02/25/2024 11:05 AM TRIMMER CLIMBER) Calcium, Ionized 3.49(L) 4.50 - 5.10 mg/dL Blood 02/25/2024 11:0 5 AM TRIMMER CLIMBER 02/25/2024 11:12 AM TRIMMER CLIMBER us Andrez Moyer MD LAB BLOOD ORDERABLES Final Resul t Performing Organization Address [facility] de Phone Number [facility] [place] [address] * Beta-hydroxybutyrate (02/25/2024 11:05 AM TRIMMER CLIMBER) Beta-Hydroxybut yrate 0.4 0.0 - 0.5 mmol/L Blood 02/25/2024 11:0 5 AM TRIMMER CLIMBER 02/25/2024 11:12 AM TRIMMER CLIMBER us Andrez Moyer MD LAB BLOOD ORDERABLES Edited Resu lt - Final Performing Organization Address [facility] de Phone Number [facility] [place] [address] * Blood culture Blood (02/25/2024 11:05 AM TRIMMER CLIMBER) Report Final Report: No growth Blood 02/25/2024 11:0 5 AM TRIMMER CLIMBER 02/25/2024 11:22 AM TRIMMER CLIMBER Narrative [facility] - 02/29/2024 12:00 PM TRIMMER CLIMBER 1. Blood cultures are incubated for 4 [...] performance characteristics have been verified by the [facility]biology Laboratory. For questions about this culture, contact the Microbiology Laboratory at [phone]. Interpretive data was last revised on 23. Andrez Moyer MD LAB MICROBIOLOGY - GENERAL ORDER DELFINA Final Result M[facility] DEY [facility] [place] [address] * Blood culture Blood (02/25/2024 11:05 AM TRIMMER CLIMBER) Report Final Report: No growth Blood 02/25/2024 11:0 5 AM TRIMMER CLIMBER 02/25/2024 11:22 AM TRIMMER CLIMBER Narrative M[facility] 02/29/2024 12:00 PM TRIMMER CLIMBER 1. Blood cultures are incubated for 4 [...] performance characteristics have been verified by the [facility]. For questions about this culture, contact the Microbiology Laboratory at [phone]. Interpretive data was last revised on 23. Andrez Moyer MD LAB MICROBIOLOGY - GENERAL ORDER DELFINA Final Result Performing Organization Address City/[facility] Co de Phone Number [facility] [place] [address] * (ABNORMAL) aPTT (02/25/2024 11:05 AM TRIMMER CLIMBER) aPTT 27(L) 28 - 38 sec Comment: Interpretive Data Heparin therapeutic range: 66.0 - 100.0 seconds. Range based on correlation with therapeutic heparin activity range of 0.3 - 0.7 Units/mL. Current interpretive data was last revised on 2022. Blood 02/25/2024 11:0 5 AM TRIMMER CLIMBER 02/25/2024 11:20 AM TRIMMER CLIMBER Andrez Moyer MD LAB BLOOD ORDERABLES Final Resul t Performing Organization Address [facility] Co de Phone Number [facility] [place] [address] * (ABNORMAL) Protime-INR (02/25/2024 11:05 AM TRIMMER CLIMBER) PT 15.4(H) 9.7 - 13.0 sec INR 1.42(H) 0.90 - 1.20 [facility] Comment: Interpretive data Oral anticoagulant therapeutic ranges: Venous thromboembolism prophylaxis or treatment: 2.0-3.0 CARDIOLOGY Standard range: 2.0-3.0 High-intensity range: 2.5-3.5 Refer to indication-specific guidelines for appropriate target ranges for prosthetic heart valve replacement. Current interpretive data was last revised on 2019. Blood 02/25/2024 11:0 5 AM TRIMMER CLIMBER 02/25/2024 11:20 AM TRIMMER CLIMBER us Andrez Moyer MD LAB BLOOD ORDERABLES Final Resul t [facility] [place] [address] * (ABNORMAL) CBC without differential (02/25/2024 11:05 AM TRIMMER CLIMBER) WBC 23.7(H) 3.8 - 9.9 K/cumm Hgb 8.8(L) 11.9 - 15.5 g/dL [facility] Hct 27.4(L) 35.6 - 45.5 % [facility] Plt 203 150 - 400 K/cumm [facility] MPV 9.8 9.1 - 12.3 fL [facility] RBC 2.56(L) 3.90 - 5.20 M/cumm [facility] MCV 107.0(H) 81.3 - 96.4 fL [facility] MCH 34.4(H) 27.1 - 33.3 pg [facility] MCHC 32.1(L) 32.3 - 35.7 g/dL [facility] RDW CV 15.7(H) 11.1 - 14.9 % [facility] RDW SD 60.9(H) 35.7 - 48.1 fL [facility] NRBC abs 0.03(H) 0.00 - 0.01 K/cumm [facility] Blood 02/25/2024 11:0 5 AM TRIMMER CLIMBER 02/25/2024 11:16 AM TRIMMER CLIMBER Result Mark Moyer MD LAB BLOOD ORDERABLES Final Resul t Performing Organization Address [facility] de Phone Number [facility] [place] [address] * (ABNORMAL) T4, free (02/25/2024 11:05 AM TRIMMER CLIMBER) Free T4 0.78(L) 0.90 - 1.70 ng/dL Blood 02/25/2024 11:0 5 AM TRIMMER CLIMBER 02/25/2024 11:12 AM TRIMMER CLIMBER Narrative [facility] - 02/25/2024 12:22 PM TRIMMER CLIMBER This test was reflexed from a TSH result. Result Mark Moyer MD LAB BLOOD ORDERABLES Edited Resu lt - Final Performing Organization Address [facility] de Phone Number [facility] [place] [address] * (ABNORMAL) Phosphorus (02/25/2024 11:05 AM TRIMMER CLIMBER) Phosphorus, pl 6.5(H) 2.3 - 4.5 mg/dL Blood 02/25/2024 11:0 5 AM TRIMMER CLIMBER 02/25/2024 11:12 AM TRIMMER CLIMBER Result Mark Moyer MD LAB BLOOD ORDERABLES Final Resul t Performing Organization Address [facility] de Phone Number [facility] [place] [address] * Magnesium (02/25/2024 11:05 AM TRIMMER CLIMBER) Magnesium 1.4 1.4 - 2.5 mg/dL Blood 02/25/2024 11:0 5 AM TRIMMER CLIMBER 02/25/2024 11:12 AM TRIMMER CLIMBER Result Mark Moyer MD LAB BLOOD ORDERABLES Final Resul t Performing Organization Address [facility] de Phone Number [facility] [place] [address] * (ABNORMAL) Blood gas, arterial (02/25/2024 11:05 AM TRIMMER CLIMBER) pH, Art 7.34(L) 7.35 - 7.45 PCO2, Arterial 53(H) 35 - 45 mmHg [facility] PO2, Arterial 138(H) 83 - 108 mmHg [facility] HCO3 Art (Calculated) 29 20 - 30 mmol/L [facility] BE, art 2 mmol/L [facility] Comment: Interpretive Data No Reference Range Established Current Interpretive Data was last revised on 2017 O2 Sat Art (Measured) 99(H) 90 - 95 % [facility] Blood 02/25/2024 11:0 5 AM TRIMMER CLIMBER 02/25/2024 11:11 AM TRIMMER CLIMBER Andrez Moyer MD LAB BLOOD ORDERABLES Final Resul t Performing Organization Address [facility] de Phone Number [facility] [place] [address] * (ABNORMAL) Lipid panel (02/25/2024 11:05 AM TRIMMER CLIMBER) Cholesterol 97 30 - 199 mg/dL Comment: [...] revised on 2017. Triglycerides 276(H) <=149 mg/dL [facility] Comment: Interpretive Data Ages < or [...] revised on 2017. HDL 26(L) >=40 mg/dL [facility] Comment: Interpretive Data Ages < or [...] on 2017. LDL, calculated 29 <=129 mg/dL [facility] Comment: Interpretive Data Ages < or [...] Expert Panel. Circulation 2004;110:227 3. Jose Alfredo Gaston. WALI Cardiol. 2020 July 04;5(5):540-548. doi: 10.1001/[email or web address] Current Interpretive Data was last revised on 2023. Non-HDL Cholesterol 71 mg/dL [facility] Comment: Interpretive Data Ages < or = [...] last revised on 2017. Chol/HDL ratio 4 [facility] Blood 02/25/2024 11:0 5 AM TRIMMER CLIMBER 02/25/2024 11:12 AM TRIMMER CLIMBER us Krysten Cohn MD LAB BLOOD ORDERABLES Final Result [facility] [place] [address] * (ABNORMAL) Comprehensive metabolic panel (02/25/2024 11:05 AM TRIMMER CLIMBER) Sodium 132(L) 135 - 145 mmol/L Potassium, pl 3.5 3.3 - 4.9 mmol/L [facility] Chloride 89(L) 97 - 110 mmol/L [facility] CO2 27 22 - 32 mmol/L [facility] Anion gap 16(H) 2 - 15 mmol/L [facility] BUN 39(H) 6 - 25 mg/dL [facility] Creatinine 3.07(H) 0.60 - 1.10 mg/dL [facility] Glucose 117 70 - 199 mg/dL [facility] Comment: Interpretive Data Fasting glucose >/= [...] 2022. Calcium 7.7(L) 8.5 - 10.3 mg/dL [facility] Bilirubin, total 0.6 0.1 - 1.2 mg/dL [facility] Protein, pl 5.8(L) 6.5 - 8.5 g/dL [facility] Albumin 2.8(L) 3.5 - 5.0 g/dL [facility] Alk phos 147(H) 40 - 130 Units/L [facility] ALT 16 7 - 45 Units/L [facility] AST 48(H) 10 - 45 Units/L [facility] Blood 02/25/2024 11:0 5 AM TRIMMER CLIMBER 02/25/2024 11:12 AM TRIMMER CLIMBER us Andrez Moyer MD LAB BLOOD ORDERABLES Final Resul t Performing Organization Address City/[facility]/ZIP Co de Phone Number [facility] [place] [address] * POCT glucose (02/25/2024 8:23 AM TRIMMER CLIMBER) Glucose, POC 137 70 - 199 mg/dL Blood 02/25/2024 8:23 AM TRIMMER CLIMBER 02/25/2024 8:23 AM TRIMMER CLIMBER us Krysten Cohn MD LAB POCT ORDERABLES - DEVICE Final Result Performing Organization Address [facility] Co de Phone Number [facility] [place] [address] * (ABNORMAL) Arterial Blood gas w/Lactate POCT (02/25/2024 7:54 AM TRIMMER CLIMBER) Lactate POC i-STAT 1.6 0.7 - 2.2 mmol/L pH POC 7.29(L) 7.35 - 7.45 [facility] pCO2, Art POC 67(H) 35 - 45 mmHg [facility] PO2 POC 217(H) 80 - 105 mmHg [facility] CO2, total POC 34(H) 20 - 30 mmol/L [facility] HCO3, POC 32(H) 21 - 30 mmol/L [facility] BE POC 6(H) -2 - 3 mmol/L [facility] O2 sat POC 100(H) 95 - 98 % [facility] Blood 02/25/2024 7:54 AM TRIMMER CLIMBER 02/25/2024 7:54 AM TRIMMER CLIMBER us Krysten Cohn MD LAB BLOOD ORDERABLES Final Result [facility] [place] [address] * XR Chest 1 View (02/25/2024 7:34 AM TRIMMER CLIMBER) Anatomical Region Laterality Modality Body, Chest N/A Computed Radiogr aphy 02/25/2024 10:2 3 AM TRIMMER CLIMBER Impressions 02/25/2024 10:23 AM TRIMMER CLIMBER Comparison is made to chest radiograph of [...] Mini Wooten M.D. Narrative 02/25/2024 10:23 AM TRIMMER CLIMBER EXAMINATION: 1 view chest radiograph Procedure Note [...] Result * (ABNORMAL) eGFR (02/25/2024 4:49 AM TRIMMER CLIMBER) eGFR 18(L) >=60 mL/min/1. 73 m2 Comment: [...] Inclusion of Race in Diagnosing Kidney Disease, [employer] 2020). The CKD-EPI equation should not be used for patients with unstable renal function and has not been validated in children and those over 70. Current interpretive data was last reviewed 2021. Blood 02/25/2024 4:49 AM TRIMMER CLIMBER 02/25/2024 5:39 AM TRIMMER CLIMBER us Krysten Cohn MD LAB BLOOD ORDERABLES Final Result Performing Organization Address City/[facility] Co de Phone Number [facility] [place] [address] * (ABNORMAL) Hemoglobin and hematocrit (02/25/2024 4:49 AM TRIMMER CLIMBER) Hgb 9.2(L) 11.9 - 15.5 g/dL Hct 29.0(L) 35.6 - 45.5 % [facility] Blood 02/25/2024 4:49 AM TRIMMER CLIMBER 02/25/2024 5:39 AM TRIMMER CLIMBER us Krysten Cohn MD LAB BLOOD ORDERABLES Final Result [facility] DEY [facility] [place] [address] * (ABNORMAL) Basic metabolic panel (02/25/2024 4:49 AM TRIMMER CLIMBER) Sodium 136 135 - 145 mmol/L Potassium, pl 3.4 3.3 - 4.9 mmol/L [facility] Chloride 94(L) 97 - 110 mmol/L [facility] CO2 30 22 - 32 mmol/L [facility] Anion gap 12 2 - 15 mmol/L [facility] BUN 39(H) 6 - 25 mg/dL [facility] Creatinine 2.97(H) 0.60 - 1.10 mg/dL [facility] Glucose 105 70 - 199 mg/dL [facility] Comment: Interpretive Data Fasting glucose >/= [...] 2022. Calcium 7.4(L) 8.5 - 10.3 mg/dL [facility] Blood 02/25/2024 4:49 AM TRIMMER CLIMBER 02/25/2024 5:39 AM TRIMMER CLIMBER us Krysten Cohn MD LAB BLOOD ORDERABLES Final Result MADELE[facility] DEY [facility] [place] [address] * (ABNORMAL) eGFR (02/24/2024 9:26 PM TRIMMER CLIMBER) Pathologist [facility] eGFR 20(L) >=60 mL/min/1. 73 m2 Comment: [...] last reviewed 2021. Blood 02/24/2024 9:26 PM TRIMMER CLIMBER 02/24/2024 9:53 PM TRIMMER CLIMBER Jovita Higuera MD LAB BLOOD ORDERABLES Final Result Performing Organization Address City/[facility]/ZIP Co de Phone Number [facility] [place] [address] * (ABNORMAL) Hemoglobin and hematocrit (02/24/2024 9:26 PM TRIMMER CLIMBER) Pathologist [facility] Hgb 9.1(L) 11.9 - 15.5 g/dL Hct 28.4(L) 35.6 - 45.5 % [facility] Blood 02/24/2024 9:26 PM TRIMMER CLIMBER 02/24/2024 9:55 PM TRIMMER CLIMBER Jovita Higuera MD LAB BLOOD ORDERABLES Final Result [facility] [place] [address] * (ABNORMAL) Basic metabolic panel (02/24/2024 9:26 PM TRIMMER CLIMBER) Sodium 137 135 - 145 mmol/L Potassium, pl 3.5 3.3 - 4.9 mmol/L [facility] Chloride 95(L) 97 - 110 mmol/L [facility] CO2 29 22 - 32 mmol/L [facility] Anion gap 13 2 - 15 mmol/L [facility] BUN 34(H) 6 - 25 mg/dL [facility] Creatinine 2.67(H) 0.60 - 1.10 mg/dL [facility] Comment:Reviewed Glucose 128 70 - 199 mg/dL [facility] Comment: Interpretive Data Fasting glucose >/= [...] 2022. Calcium 7.5(L) 8.5 - 10.3 mg/dL [facility] Blood 02/24/2024 9:26 PM TRIMMER CLIMBER 02/24/2024 9:53 PM TRIMMER CLIMBER us Jovita Higuera MD LAB BLOOD ORDERABLES Final Result Performing Organization Address [facility] Co de Phone Number [facility] [place] [address] * POCT glucose (02/24/2024 9:17 PM TRIMMER CLIMBER) [facility] Glucose, POC 152 70 - 199 mg/dL Blood 02/24/2024 9:17 PM TRIMMER CLIMBER 02/24/2024 9:17 PM TRIMMER CLIMBER us Krysten Cohn MD LAB POCT ORDERABLES - DEVICE Final Result Performing Organization Address City/[facility]/ZIP Co de Phone Number [facility] [place] [address] * POCT glucose (02/24/2024 5:15 PM TRIMMER CLIMBER) Glucose, POC 148 70 - 199 mg/dL Blood 02/24/2024 5:15 PM TRIMMER CLIMBER 02/24/2024 5:15 PM TRIMMER CLIMBER Krysten Cohn MD LAB POCT ORDERABLES - DEVICE Final Result Performing Organization Address [facility] de Phone Number [facility] [place] [address] * POCT glucose (02/24/2024 12:22 PM TRIMMER CLIMBER) [facility] Glucose, POC 148 70 - 199 mg/dL Blood 02/24/2024 12:2 2 PM TRIMMER CLIMBER 02/24/2024 12:22 PM TRIMMER CLIMBER Krysten Cohn MD LAB POCT ORDERABLES - DEVICE Final Result Performing Organization Address [facility] de Phone Number [facility] [place] [address] * POCT glucose (02/24/2024 9:55 AM TRIMMER CLIMBER) [facility] Glucose, POC 145 70 - 199 mg/dL Blood 02/24/2024 9:55 AM TRIMMER CLIMBER 02/24/2024 9:55 AM TRIMMER CLIMBER Krysten Cohn MD LAB POCT ORDERABLES - DEVICE Final Result Performing Organization Address [facility] de Phone Number [facility] [place] [address] * (ABNORMAL) eGFR (02/23/2024 11:18 PM TRIMMER CLIMBER) [facility] eGFR 47(L) >=60 mL/min/1. 73 m2 [...] reviewed 2021. Blood 02/23/2024 11:1 8 PM TRIMMER CLIMBER 02/23/2024 11:44 PM TRIMMER CLIMBER Elder Garza III, MD LAB BLOOD ORDERABL ES Final Result Performing Organization Address City/[facility]/ZIP Co de Phone Number [facility] [place] [address] * (ABNORMAL) Hemoglobin and hematocrit (02/23/2024 11:18 PM TRIMMER CLIMBER) [facility] Hgb 9.7(L) 11.9 - 15.5 g/dL Hct 30.3(L) 35.6 - 45.5 % [facility] Blood 02/23/2024 11:1 8 PM TRIMMER CLIMBER 02/23/2024 11:46 PM TRIMMER CLIMBER Narrative [facility] - 02/23/2024 11:56 PM TRIMMER CLIMBER change to CBC when needed Elder Garza III, MD LAB BLOOD ORDERABL ES Final Result [facility] [place] [address] * (ABNORMAL) Basic metabolic panel (02/23/2024 11:18 PM TRIMMER CLIMBER) Sodium 139 135 - 145 mmol/L Potassium, pl 3.3 3.3 - 4.9 mmol/L [facility] Chloride 96(L) 97 - 110 mmol/L [facility] CO2 32 22 - 32 mmol/L [facility] Anion gap 11 2 - 15 mmol/L [facility] BUN 28(H) 6 - 25 mg/dL [facility] Creatinine 1.33(H) 0.60 - 1.10 mg/dL [facility] Glucose 188 70 - 199 mg/dL [facility] Comment: Interpretive Data Fasting glucose >/= [...] 2022. Calcium 7.6(L) 8.5 - 10.3 mg/dL [facility] Blood 02/23/2024 11:1 8 PM TRIMMER CLIMBER 02/23/2024 11:44 PM TRIMMER CLIMBER Narrative [facility] - 02/24/2024 12:14 AM TRIMMER CLIMBER Daily Elder Garza III, MD LAB BLOOD ORDERABL ES Final Result [facility] [place] [address] * POCT glucose (02/23/2024 9:15 PM TRIMMER CLIMBER) Glucose, POC 135 70 - 199 mg/dL Blood 02/23/2024 9:15 PM TRIMMER CLIMBER 02/23/2024 9:15 PM TRIMMER CLIMBER Krysten Cohn MD LAB POCT ORDERABLES - DEVICE Final Result [facility] [place] [address] * XR Shoulder Right 2+ View (02/23/2024 6:49 PM TRIMMER CLIMBER) Anatomical Region Laterality Modality Upper Extremities, Shoulder Right Comp uted Radiography 02/23/2024 7:19 PM TRIMMER CLIMBER Impressions 02/23/2024 7:19 PM TRIMMER CLIMBER 1. 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 Electronically signed by: Jeremy Martin MD, PHD Narrative 02/23/2024 7:19 PM TRIMMER CLIMBER EXAMINATION: Right shoulder 2+ views HISTORY: Right [...] MD IMG XR PROCEDURES Final Result * [place] AN PROCEDURE PLACEHOLDER (02/23/2024 5:45 PM TRIMMER CLIMBER) Narrative Kellie Black CRNA - 02/23/2024 5:45 PM TRIMMER CLIMBER Kellie Black CRNA 02/23/2024 5:46 PM Peripheral [...] MD PhD ANESTHESIA ORDERABLES Final Result * [place] AN PROCEDURE PLACEHOLDER (02/23/2024 3:57 PM TRIMMER CLIMBER) Kellie Robertson CRNA - 02/23/2024 3:57 PM TRIMMER CLIMBER Kellie Black CRNA 02/23/2024 3:57 PM Arterial Line Patient location: [...] MD PhD ANESTHESIA ORDERABLES Final Result * [place] AN ELECTIVE ENDOTRACHEAL AIRWAY, [place] AN PROCEDURE PLACEHOLDER (02/23/2024 3:37 PM TRIMMER CLIMBER) Ben Palmer - 02/23/2024 3:37 PM TRIMMER CLIMBER Ben Pappas 02/23/2024 3:38 PM Airway Patient [...] MD PhD ANESTHESIA ORDERABLES Final Result * [place] AN PROCEDURE PLACEHOLDER (02/23/2024 2:49 PM TRIMMER CLIMBER) Tricia Lofton MD - 02/23/2024 2:49 PM TRIMMER CLIMBER Emile Monaco MD 02/23/2024 2:49 PM Peripheral [...] BW IP ANE LDA PERIPHERAL NERVE CATHETER, [place] AN PROCEDURE PLACEHOLDER (02/23/2024 2:45 PM TRIMMER CLIMBER) Tricia Lofton MD - 02/23/2024 2:45 PM TRIMMER CLIMBER Emile Monaco MD 02/23/2024 2:49 PM Peripheral [...] esult * Check Sample (02/23/2024 12:52 PM TRIMMER CLIMBER) ABO Rh A Positive [facility] HCLL OTHER 02/23/2024 12:5 2 PM TRIMMER CLIMBER 02/23/2024 1:00 PM TRIMMER CLIMBER us Krysten Cohn MD LAB BLOOD ORDERABLES Final Result [facility] [place] [address] [facility] * TYPE AND SCREEN 14 DAY (02/15/2024 9:06 AM TRIMMER CLIMBER) ABO Rh A Positive Sandra, indirect Negative [facility] Blood 02/15/2024 9:06 AM TRIMMER CLIMBER 02/15/2024 10:35 AM TRIMMER CLIMBER Narrative [facility] - 02/15/2024 11:35 AM TRIMMER CLIMBER Is this test being ordered in advance for a procedure?->Yes Expected date of procedure:->02/23/24 Has the patient been transfused in the past 3 months?->No Has the patient been in the past 3 months?->No Marley Grover NP LAB BLOOD BANK TEST ORDE RABRACHAEL Final Result Performing Organization Address City/State/[facility] Co de Phone Number [facility] [place] [address] * eGFR (02/15/2024 9:06 AM TRIMMER CLIMBER) eGFR 87 >=60 mL/min/1. 73 m2 Comment: [...] last reviewed 2021. Blood 02/15/2024 9:06 AM TRIMMER CLIMBER 02/15/2024 10:09 AM TRIMMER CLIMBER us Krysten Cohn MD LAB BLOOD ORDERABLES Final Result [facility] [place] [address] * Vitamin D 25 hydroxy (02/15/2024 9:06 AM TRIMMER CLIMBER) [facility] Vitamin D 25-OH 47 30 - 80 ng/mL Blood 02/15/2024 9:06 AM TRIMMER CLIMBER 02/15/2024 10:09 AM TRIMMER CLIMBER us Krysten Cohn MD LAB BLOOD ORDERABLES Final Result Performing Organization Address [facility] Co de Phone Number [facility] [place] [address] * (ABNORMAL) CBC without differential (02/15/2024 9:06 AM TRIMMER CLIMBER) [facility] WBC 5.8 3.8 - 9.9 K/cumm Hgb 12.8 11.9 - 15.5 g/dL [facility] Hct 39.4 35.6 - 45.5 % [facility] Plt 200 150 - 400 K/cumm [facility] MPV 9.2 9.1 - 12.3 fL [facility] RBC 3.69(L) 3.90 - 5.20 M/cumm [facility] MCV 106.8(H) 81.3 - 96.4 fL [facility] MCH 34.7(H) 27.1 - 33.3 pg [facility] MCHC 32.5 32.3 - 35.7 g/dL [facility] RDW CV 15.5(H) 11.1 - 14.9 % [facility] RDW SD 61.2(H) 35.7 - 48.1 fL [facility] NRBC abs 0.00 0.00 - 0.01 K/cumm [facility] Blood 02/15/2024 9:06 AM TRIMMER CLIMBER 02/15/2024 10:09 AM TRIMMER CLIMBER us Marley Grover NP LAB BLOOD ORDERABLES Fin al Result [facility] [place] [address] * (ABNORMAL) Comprehensive metabolic panel (02/15/2024 9:06 AM TRIMMER CLIMBER) Sodium 138 135 - 145 mmol/L Potassium, pl 3.8 3.3 - 4.9 mmol/L [facility] Chloride 93(L) 97 - 110 mmol/L [facility] CO2 34(H) 22 - 32 mmol/L [facility] Anion gap 11 2 - 15 mmol/L [facility] BUN 13 6 - 25 mg/dL [facility] Creatinine 0.80 0.60 - 1.10 mg/dL [facility] Glucose 105 70 - 199 mg/dL [facility] Comment: Interpretive Data Fasting glucose >/= [...] 2022. Calcium 8.9 8.5 - 10.3 mg/dL [facility] Bilirubin, total 0.7 0.1 - 1.2 mg/dL [facility] Protein, pl 7.4 6.5 - 8.5 g/dL [facility] Albumin 3.7 3.5 - 5.0 g/dL [facility] Alk phos 221(H) 40 - 130 Units/L [facility] ALT 21 7 - 45 Units/L [facility] AST 49(H) 10 - 45 Units/L [facility] Blood 02/15/2024 9:06 AM TRIMMER CLIMBER 02/15/2024 10:09 AM TRIMMER CLIMBER us Krysten Cohn MD LAB BLOOD ORDERABLES Final Result [facility] [place] [address] * ECG 12 lead (02/15/2024 8:38 AM TRIMMER CLIMBER) Ventricular Rate EKG/Min 80 BPM [facility] Atrial Rate 80 BPM [facility] [place]-Interval (MSEC) 184 ms [facility] QRS-Interval (MSEC) 104 ms [facility] QT-Interval (MSEC) 414 ms [facility] QTc 477 ms [facility] P [place] 60 degrees [facility] R [place] 32 degrees [facility] T [place] 26 degrees [facility] Diagnosis Normal sinus rhythm Low voltage QRS Cannot rule out Anterior infarct , age undetermined Abnormal ECG When compared with ECG of 12-DEC-2020 11:35, no significant change Confirmed by KARI GONZALEZ M.D ([id number]) on 02/15/2024 12:09:38 PM [facility] 02/15/2024 8:38 AM TRIMMER CLIMBER 02/15/2024 12:09 PM TRIMMER CLIMBER us Marley Grover NP ECG ORDERABLES Final Re sult [facility] * HM MAMMOGRAPHY (01/16/2021) us Shantanu Moon MD HEALTH MAINTENANCE Edited Re sult - Final from Last 3 Months or Most Recently Relevant to Health Maintenance Insurance [employer] [facility] [employer]/PPO Address: [address] [address] [place] [address] [employer] [employer]O Address: [address] [address] [place] [address] [address] EM[employer]YE[employer] [facility] [facility] [employer]/PPO Address: [address] [address] [place] [address] [employer] [employer] [employer]/PPO Address: [address] [address] [employer] Advance Directives For more information, please contact: [phone] * Full Code (Latest Code Status on [...] First Alternate Health Care Agent Care Teams Social Media Executive Relationship Specialty Start Date End Date Tiffany Edmond NP [address] [place] [address] PCP - General Internal Medicine 07/12/22
--- OUTSIDE RECORDS SUMMARY | 2024-05-08 08:36 | XMS_ITS | Clinical Summary ---
Author Organization [facility] Address [address] [place] [address] Care Team Providers Care Regulatory Affairs Internship Name Role Phone Tiffany Edmond NP Primary Care Provider [phone] Allergies Active Allergy Reactions Criticality Noted Date [...] received and tolerated cefazolin, cefepime and cefadroxil [place] Swelling,Edema Medium Reaction: SWELLING, Medications multivitamin tablet [...] under the skin every 7 days 04/08/19 025 Discontinued(Re order) traZODone (DESYREL) 50 mg tabletIndicatio ns:Primary insomnia Take 1 tablet (50 mg total) by mouth nightly 90 tablet 1 04/17/19 025 Discontinued Active Problems Problem Noted Date [...] 04/02/2024 Assessment & Plan (05/07/2024 9:30 AM PROFESSOR OF HISTORY): Discussed the patient's BMI. The BMI is above average. BMI management plan is completed. BMI Follow-up includes: nutrition counseling, exercise counseling and education provided. Assessment & Plan (04/02/2024 2:14 PM PROFESSOR OF HISTORY): Discussed the patient's BMI. The BMI is above average. BMI management plan is completed. BMI Follow-up includes: nutrition counseling, exercise counseling and education provided. Cellulitis of left lower extremity 04/02/2024 Leg wound, left, subsequent encounter 03/20/2024 Blood culture positive for microorganism 024 Assessment & Plan (2024 11:33 AM PROFESSOR OF HISTORY): Blood cx 03/07 positive for staph epidermidis [...] medication. Assessment & Plan (2024 1:05 PM PROFESSOR OF HISTORY): Nolvia Branch is a 53 y.o. female [...] MARY/hypoxemia Assessment & Plan (03/03/2024 5:27 PM PROFESSOR OF HISTORY): Continue cefazolin 2gm IV q 8hrs. If crcl drops under 50 this will need dose adjustment She has not had bacteremia or joint involvement, so I do not anticipate needing prolonged IV abx Would continue cefazolin with anticipated transition to PO abx at hospital discharge to complete 14-21 day course Assessment & Plan (2024 11:34 AM PROFESSOR OF HISTORY): Cultures positive for MSSA - agree with ID team plan for Ancef LFT elevation 03/03/2024 Assessment & Plan (03/05/2024 12:30 PM PROFESSOR OF HISTORY): Hepatitis panel negative. US showing hepatic steatosis. Possibly related to episode of hypotensions vs DILI - resolving Acute postoperative pain of right shoulder 02/25 Respiratory failure 02/25/2024 Assessment & Plan (03/03/2024 10:32 AM PROFESSOR OF HISTORY): Patient developed acute hypoxic respiratory failure which has now resolved and patient is off oxygen Most recent chest x-ray showed clear lungs Peripheral nerve catheter present 02/24/2024 Traumatic complete tear of right rotator cuff History of right shoulder replacement 02/23/2024 Assessment & Plan (03/03/2024 10:31 AM PROFESSOR OF HISTORY): Ortho team primary, management per ortho Acute [...] 10/14/2021 Assessment & Plan (03/03/2024 10:37 AM PROFESSOR OF HISTORY): Patient required CRRT during hospitalization, Now creatinine [...] 12/12/2020 Assessment & Plan (01/22/2021 2:28 PM PROFESSOR OF HISTORY): Repeat cmp in 30d Assessment & Plan (12/15/2020 2:58 PM CDT): Repeat bmp this week Hypokalemia 12/12/2020 Assessment & Plan (10/14/2021 11:47 AM CDT): We reviewed recent labs, will repeat bmp this week. Assessment & Plan (01/22/2021 2:28 PM PROFESSOR OF HISTORY): Continue with lasix and kcl Repeat a cmp in 30d Assessment & Plan (12/15/2020 2:58 PM CDT): Repeat bmp this week Insulin resistance 09/21/2020 Overview (09/21/2020): Fasting insulin 23.8; glucose 127 -- CLAUDIA-IR 7.5 Assessment & Plan (08/09/2021 10:59 AM CDT): Reviewed interim labs. Continue low-carb (<150 g/day), low-glycemic diet. Continue GLP-1 RA. Assessment & Plan (05/12/2021 9:49 PM PROFESSOR OF HISTORY): Reviewed interim labs. Continue low-carb (<150 g/day), low-glycemic diet. Resume GLP-1 RA. Assessment & Plan (09/21/2020 4:21 PM CDT): Reviewed labs. Continue low-carb (<150 g/day), low-glycemic diet. Contact dermatitis 09/08/2020 Assessment & Plan (09/08/2020 12:52 PM CDT): Will use mdp and topical triamcinolone Lymphedema of both lower extremities 09/08/2020 Assessment & Plan (01/22/2021 2:28 PM PROFESSOR OF HISTORY): Continue with lasix and natividad benítez Assessment [...] phone. Assessment & Plan (05/12/2021 9:46 PM PROFESSOR OF HISTORY): Reviewed calorie restriction based on BMR as previously detailed. Reviewed recommendation/goal of >/= 150 minutes/week moderate-intensity aerobic exercise. Asked to keep detailed food diary for at least 1 week and bring to next visit and/or continue tracking on phone. Assessment & Plan (04/01/2021 8:26 PM PROFESSOR OF HISTORY): Reviewed calorie restriction based on BMR as [...] 08/18/2020 Assessment & Plan (04/01/2021 8:26 PM PROFESSOR OF HISTORY): Continue low-carb (<150 g/day), low-glycemic diet. Continue [...] w/r/t gut microbiome. Referred to ADA and Jobaline websites for additional information on topics including glycemic index/carbohydrate choices, protein sources. Class 3 severe obesity due t o excess calories with serious comorbidity and body mass index (BMI) of 60.0 to 69.9 in adult 07/20/2020 Assessment & Plan (04/17/2024 9:03 AM PROFESSOR OF HISTORY): Discussed the patient's BMI. The BMI is [...] provided. Assessment & Plan (05/12/2021 9:52 PM PROFESSOR OF HISTORY): Obesity is worsening. Diet interventions: resume Wegovy. Regular aerobic exercise program discussed. Pharmacotherapy as ordered. Assessment & Plan (04/01/2021 8:28 PM PROFESSOR OF HISTORY): Obesity is unchanged. Diet interventions: as noted. Regular aerobic exercise program discussed. Pharmacotherapy as ordered. Continue Wegovy. Assessment & Plan (01/22/2021 2:30 PM PROFESSOR OF HISTORY): Obesity is unchanged. Discussed the patient's BMI. [...] to work out until she sees the paving plant operator She was advised no etoh Assessment & [...] labs. Assessment & Plan (03/10/2020 4:31 PM PROFESSOR OF HISTORY): Fasting labs entered, will notify patient of [...] time Assessment & Plan (01/22/2021 2:28 PM PROFESSOR OF HISTORY): Increase effexor Repeat cmp in 30d to evaluate for hyponatremia Assessment & Plan (09/08/2020 12:52 PM CDT): Advised her of potential qt prolongation with olanzepine. Reviewed up to date guidelines and will increase her effexor by 37.5mg every day. She was advised that her xanax will not be increased. 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 Reminded goal diastolic of 60-80. Also reminded goal is pulse 60-90. She will call us over the next week with the results on increasing medication. She will keep her appointment with her paving plant operator as planned. Assessment & Plan (07/28/2020 11:53 [...] 60-80. Assessment & Plan (03/10/2020 4:31 PM PROFESSOR OF HISTORY): Continue medication same Fasting labs entered, will notify patient of results as available Obesity, morbid, BMI 40.0-49.9 11/26/2015 Assessment & Plan (03/20/2024 8:22 AM PROFESSOR OF HISTORY): Discussed the patient's BMI. The BMI is above average. BMI management plan is completed. BMI Follow-up includes: nutrition counseling, exercise counseling and education provided. Assessment & Plan (04/27/2022 10:18 AM PROFESSOR OF HISTORY): Discussed the patient's BMI. The BMI is [...] Date Heart failure with reduced ejection fraction 4 04/29/2024 Assessment & Plan (03/05/2024 12:30 PM PROFESSOR OF HISTORY): TTE: EF 47% - Cardiology planning outpatient [...] provided Assessment & Plan (04/27/2022 10:18 AM PROFESSOR OF HISTORY): Discussed the patient's BMI. The BMI is [...] 04/27/2022 Assessment & Plan (02/15/2022 10:08 AM PROFESSOR OF HISTORY): Obesity is unchanged. Discussed the patient's BMI. [...] provided. Assessment & Plan (01/22/2021 2:30 PM PROFESSOR OF HISTORY): Obesity is unchanged. Discussed the patient's BMI. [...] 03/20/2024 Assessment & Plan (02/13/2024 10:34 AM PROFESSOR OF HISTORY): Discussed the patient's BMI. The BMI is above average. BMI management plan is completed. BMI Follow-up includes: nutrition counseling, exercise counseling and education provided. Assessment & Plan (01/10/2024 9:18 AM PROFESSOR OF HISTORY): Discussed the patient's BMI. The BMI is [...] provided. Assessment & Plan (03/02/2023 9:15 AM PROFESSOR OF HISTORY): Discussed the patient's BMI. The BMI is [...] Date Type Department Care Team Description 05/07/2024 9:30 AM PROFESSOR OF HISTORY Office Visit [facility] Internal Medicine at [place] [address] [place] [address] [address] [place] [phone] Tiffany Edmond NP Physical exam, annual (Primary Dx); Knee ulcer due to DM (HCC); Class 3 severe obesity due to excess calories with serious comorbidity and body mass index (BMI) of 60.0 to 69.9 in adult (HCC) 05/07/2024 Orders Only [facility] Cardiology [address] [place] [phone] Kellie Swenson MA Prolonged QT interval (Primary Dx) 05/07/2024 Telephone [facility] Cardiology [address] [place] [phone] Karie Rodríguez MD Lab Results 05/06/2024 8:00 AM PROFESSOR OF HISTORY Orders Only [facility] Medical Office Building 2 Wound Care [address] [facility] [address] [place] [address] 05/02/2024 2:00 PM PROFESSOR OF HISTORY Telemedicine [facility] Minimally Invasive Surgery [address] Medical Office Building [address] [place] [address] Jessica Cardenas NP BMI 50.0-59.9, adult (HCC) (Primary Dx); Weight loss counseling, encounter for; BMI 60.0-69.9, adult (HCC) 04/29/2024 2:45 PM PROFESSOR OF HISTORY Orders Only [facility] Medical Office Building 2 Wound Care [address] [facility] [address] [place] [address] 04/29/2024 1:00 PM PROFESSOR OF HISTORY Office Visit [facility] Cardiology [address] [facility] [address] [place] [address] Karie Rodríguez MD Essential (primary) hypertension (Primary Dx); Lymphedema; Chronic combined systolic and diastolic congestive heart failure (HCC); Prolonged QT interval 04/29/2024 Orders Only [facility] Internal Medicine at [place] [address] [place] [address] Tiffany Edmond NP 04/25/2024 Telephone [facility] Orthopaedic Surgery [facility] 12th [place] [address] [place] [address] Kellie Castillo 04/25/2024 Telephone [facility] Internal Medicine at [place] [address] [place] [address] Tiffany Edmond NP Recommendation Request 04/22/2024 1:00 PM PROFESSOR OF HISTORY Orders Only [facility] Medical Office Building 2 Wound Care [address] [facility] [address] [place] [address] 04/18/2024 Telephone [facility] Orthopaedic Surgery [address] [facility] Medicine 12th [place] [address] [place] [address] Kellie Castillo 04/18/2024 Telephone [facility] Internal Medicine at [place] [address] [place] [address] Tiffany Edmond NP Additional Services Or Orders 04/17/2024 9:00 AM PROFESSOR OF HISTORY Office Visit [facility] Internal Medicine at [place] [address] [place] [address] Tiffany Edmond NP Primary insomnia (Primary Dx); BMI 60.0-69.9, adult (HCC); Obesity, morbid, BMI 40.0-49.9 (HCC); OAB (overactive bladder); Neuropathy; Leg wound, left, subsequent encounter 04/17/2024 Telephone [facility] Internal Medicine at [place] [address] [place] [address] Tiffany Edmond NP Medical Question/Miscellaneo us 04/11/2024 8:00 AM PROFESSOR OF HISTORY Orders Only [facility] Medical Office Building 2 Wound Care [address] [facility] [address] [place] [address] Knee ulcer due to DM (HCC) 04/03/2024 Orders Only [facility] Infectious Diseases [address] [place] [address] [address] [place] [phone] Ericka Glass MD Lymphedema (Primary Dx); Wound of left lower extremity, subsequent encounter 04/02/2024 8:33 PM PROFESSOR OF HISTORY - 04/08/2024 5:29 PM PROFESSOR OF HISTORY Hospital Encounter [facility] 2 Center [address] [place] [address] Prograis, MD Sina Holbrook Niraja N., MD Altwal, MD Jenny Ludwig Srinivasarao C., MD Uzodi, MD Jaden Bosch, Renny Ventura MD Cellulitis [...] home health skilled care 04/02/2024 2:00 PM PROFESSOR OF HISTORY Office Visit [facility] Internal Medicine at [place] [address] [facility] [address] [place] [address] Tiffany Edmond NP Knee ulcer due to DM (HCC) (Primary Dx); Class 3 severe obesity due to excess calories with serious comorbidity and body mass index (BMI) of 60.0 to 69.9 in adult (HCC) 04/01/2024 9:15 AM PROFESSOR OF HISTORY Office Visit [facility] Orthopaedic Surgery [address] [facility] Advanced Medicine 12th [place] [address] [place] [address] Krysten Cohn MD Status post reverse arthroplasty of right shoulder (Primary Dx) 04/01/2024 9:00 AM PROFESSOR OF HISTORY - 04/01/2024 11:59 PM PROFESSOR OF HISTORY Hospital Encounter [facility] [address] [place] [address] Status post reverse arthroplasty of right shoulder Discharge Disposition: Discharge to home or self care 04/01/2024 Telephone [facility] Infectious Diseases [address] [place] [address] Tanesha Rojas, [facility] 04/01/2024 Telephone [facility] Internal Medicine at [place] [address] [facility] [address] [place] [address] Tiffany Edmond NP Medical Question/Miscellaneo us 03/27/2024 2:09 PM PROFESSOR OF HISTORY - 03/27/2024 11:59 PM PROFESSOR OF HISTORY Hospital Encounter [facility] [address] [place] [address] Discharge Disposition: Discharge to home or self care 03/27/2024 12:40 PM PROFESSOR OF HISTORY Office Visit [facility] Infectious Diseases [address] [place] [address] [place] [address] Ericka Glass MD Prepatellar bursitis of left knee (Primary Dx); Encounter for screening examination for sexually transmitted disease; Wound of left lower extremity, subsequent encounter; Lymphedema 03/27/2024 Telephone [facility] Orthopaedic Surgery [address] [facility] 12th [place] [address] [place] [address] Krysten Cohn MD 03/27/2024 Orders Only [facility] Orthopaedic Surgery [address] [facility] 12th [place] [address] [place] [address] Krysten Cohn MD Open knee wound, left, initial encounter (Primary Dx) 03/27/2024 Orders Only [facility] Infectious Diseases [address] [facility] [address] [place] [address] Ericka Glass MD Prepatellar bursitis of left knee 03/26/2024 Telephone [facility] Orthopaedic Surgery [facility] 12th [place] [address] [place] [address] Krysten Cohn MD 03/26/2024 Telephone [facility] Orthopaedic Surgery [facility] 12th [place] [address] [place] [address] Krysten Cohn MD 03/25/2024 Telephone [facility] Internal Medicine at [address] [place] [address] Tiffany Edmond NP Additional Services Or Orders 03/22/2024 Telephone [facility] Internal Medicine at [address] [place] [address] Tiffany Edmond NP Additional Services Or Orders; Call Back 03/20/2024 8:00 AM PROFESSOR OF HISTORY Office Visit [facility] Internal Medicine at [address] [place] [address] Tiffany Edmond NP History of right shoulder replacement (Primary Dx); Morbid obesity with BMI of 50.0-59.9, adult (HCC); Acute cough; Wound of left lower extremity, subsequent encounter 03/20/2024 Telephone [facility] Internal Medicine at [address] [place] [address] Tiffany Edmond, JYOTI Patient Running Late For Apt 03/18/2024 Telephone [facility] Internal Medicine at [place] [address] [place] [address] Tiffany Edmond NP JASPER Questions 03/13/2024 Telephone [facility] Internal Medicine at [place] [address] [place] [address] Tiffany Edmond, JYOTI Additional Services Or Orders 03/13/2024 Telephone [facility] Infectious Diseases [address] [facility] [address] [place] [address] Bernie Mason, PRODUCT SAFETY ADMINISTRATOR 03/13/2024 Telephone [facility] Medical [facility] Internal Medicine at [place] [address] [place] [address] Tiffany Edmond NP Medical Question/Miscellaneo us 03/13/2024 Telephone [facility] Orthopaedic Surgery [address] [facility] Medicine 12th [place] [address] [place] [address] Krysten Cohn MD 03/12/2024 Documentation [facility] 1 [place] [address] Caitie Farris RN 03/01/2024 Telephone [facility] Cardiology [address] [facility] Medicine 8th [place] [address] [place] [address] Danielle Abbasi 02/27/2024 Orders Only [facility] Radiology 1 [place] [address] Art Ventura, RN 02/26/2024 6:05 AM PROFESSOR OF HISTORY Ancillary Procedure [facility] Vascular Lab IP [address] [facility] [address] [place] [address] 02/23/2024 2:42 PM PROFESSOR OF HISTORY Anesthesia Event [facility] Operating Room 1 [place] [address] Mauricio, Andriy MD PhD Reilly Funes Kelli P., NP 02/23/2024 2:20 PM PROFESSOR OF HISTORY - 02/23/2024 5:30 PM PROFESSOR OF HISTORY Surgery [facility] Operating Room 1 [place] [address] Krysten Cohn MD Right Reverse Shoulder Arthroplasty 02/23/2024 10:54 AM PROFESSOR OF HISTORY - 03/12/2024 8:34 PM PROFESSOR OF HISTORY Hospital Encounter [facility] [address] [place] [address] Krysten Cohn MD Musleh, Amjad, MD Closed [...] hypertension; Hypokalemia Discharge Disposition: Discharge to [facility] 02/23/2024 Telephone [facility] Family Medicine [address] [facility] [address] [place] [address] Marilyn Hernandez MA 02/15/2024 8:00 AM PROFESSOR OF HISTORY Pre-Admission Testing [facility] Center for Preoperative Assessment and [facility] ([facility]) [address] [place] [phone] Preoperative testing (Primary Dx); Closed dislocation of right shoulder, initial encounter; Fracture of humeral head, closed, right, with routine healing, subsequent encounter 02/13/2024 10:30 AM PROFESSOR OF HISTORY Office Visit [facility] Internal Medicine at [place] [address] [facility] [address] [place] [address] Tiffany Edmond NP Acute pain of right shoulder (Primary Dx); Morbid obesity with BMI of 50.0-59.9, adult (HCC) 02/12/2024 1:20 PM PROFESSOR OF HISTORY Telemedicine [facility] Minimally Invasive Surgery [address] [place] [address] Medical Office Building [address] [place] [phone] Jessica Cardenas NP Morbid obesity (HCC) (Primary Dx); Encounter for weight management; H/O gastric bypass from Last 3 Months Immunizations Immunization Administration [...] Heart disease Neuromuscular disorder (HCC) Autoimmune disease Menstrual problem Menopause 2019 Family History Medical [...] drink = 0.6 oz pur e alcohol) [facility] Utilities Answer Date Recorded In the past 12 months has th [employer], gas, oil, or water company threatened [...] week 04/03/2024 How often do you attend [facility] or anglican services? Never 04/03/2024 Do you belong to any clubs o r organizations such as christian groups, unions, fraternal or athletic groups, or [...] any time in the past 12 m [facility], were you homeless or living in a assisted (including now)? No 04/03/2024 Personal Safety Answer Date Recorded Have you ever been in or are you currently in a harmful physical or emotional relationship or is someone making you feel afraid or unsafe? Denies 04/03/2024 Comments No Sex and Gender Information Value Date Recorded Sex Assigned at Not on file Legal Sex Female 4:51 AM PROFESSOR OF HISTORY Gender Identity Female 10/09/2020 9:44 AM CDT Sexual Orientation Straight 07/19/2020 12 :16 PM CDT Occupation Industry Job Start Date Job End Date [employer] Not on file Not on file Not on file Obstetrics History Last Filed Vital Signs Vital Sign Reading Time Taken Comments Blood Pressure 134/86 05/07/2024 9:27 AM PROFESSOR OF HISTORY Pulse 83 05/07/2024 9:27 AM PROFESSOR OF HISTORY Temperature 36.6 C (97.9 F) 05/07/2024 9:27 AM PROFESSOR OF HISTORY Respiratory Rate 18 04/08/2024 3:16 PM PROFESSOR OF HISTORY Oxygen Saturation 96% 05/07/2024 9:27 AM PROFESSOR OF HISTORY Inhaled Oxygen Concentration - - Weight 154.2 kg (340 lb) 05/07/2024 9:27 AM PROFESSOR OF HISTORY Height 160 cm (5' 3 ) 05/07/2024 9:27 AM PROFESSOR OF HISTORY Body Mass Index 60.23 05/07/2024 9:27 AM PROFESSOR OF HISTORY Plan of Treatment Health Maintenance Due Date Last Done Comments Albumin Creatinine Ratio, Urine 1968 Cervical Cancer Screening 1968 Dilated Eye Exam 1968 Foot Exam 1968 Hepatitis B Screening 1986 Pneumococcal vaccine <65 (1 of 2 - PCV) 1987 Zoster Vaccine (1 of 2) 2018 Breast Cancer Screening-Mammogram 01/16/2022 01/16/2021 Covid-19 Vaccine ( season) 2023 05/27/2020, 05/27/2020, 05/07/2020, Additional history exists Influenza Vaccine (#1) 2024 Postp oned from 11/05/2023 (Patient declined, but will receive in the future) Hemoglobin A1C 10/01/2024 04/03/2024, 10/2 11/2023, 12/10/2021, Additional history exists eGFR 04/08/2025 04/08/2024, 0204/2024, 04/06/2024, Additional history exists Lipid Panel 04/29/2025 04/29/2024, 03/07, 02/25/2024, Additional history exists Depression Screening 05/07/2025 05/07/2024, 04/17/2024, 04/02/2024, Additional history exists Regular Well Visit/Exam 18-64 05/07/2025 05/07/2024, 08/31/2022, 06/21/2021 Colon Cancer Screening-Colonoscopy 03/06/2029 Postponed from 1968 (Not appropriate for this patient at this time) DTaP/Tdap/Td Vaccine (2 - Td or Tdap) 07/28/2030 07/28/2020 Hepatitis C Screening Completed 03/01/2024 Medical Devices Implanted Type [employer] Device Identifier Shelf Expiration Date Model / Serial / Lot [employer] Tornier Aequalis Perform 25mm Lateralize Augment Reverse Shoulder [id number] - [id number] - [id number] Implanted:Qty: 1 on 02/23/2024 by Krysten Cohn MD at [facility] Right: Shoulder [employer] 01/28/2029 [id number] / [id number] / [employer] Aequalis Perform Reversed Od6.5 Mm L40 Mm Central Glenoid Screw Baseplate Nonsterile [id number] - [id number] Implanted:Qty: 1 on 02/23/2024 by Krysten Cohn MD at [facility] Right: Shoulder [employer] [id number] / / [employer] Screw Glenoid Locking Reverse Aequalis Perform 5x14mm Titanium [id number] - [id number] Implanted:Qty: 1 on 02/23/2024 by Krysten Cohn MD at [facility] Right: Shoulder [employer] [id number] / / [employer] Aequalis Perform Reversed 5mm 30mm Peripheral Glenoid Screw [id number] - [id number] Implanted:Qty: 2 on 02/23/2024 by Krysten Cohn MD at [facility] Right: Shoulder [employer] [id number] / / [employer] Component Glenosphere Reverse Lateralized Aequalis Perform +3x36mm [id number] - [id number] - [id number] Implanted:Qty: 1 on 02/23/2024 by Krysten Cohn MD at [facility] Right: Shoulder [employer] 11/02/2028 [id number] / [id number] / [employer] Stem Fracture Sz 11 L 130mm Humeral [id number] - [id number] - [id number] Implanted:Qty: 1 on 02/23/2024 by Krysten Cohn MD at [facility] Right: Shoulder [employer] 08/13/2028 [id number] / [id number] / [employer] Insert Perform Ret Ve [id number] - [id number] - [id number] Implanted:Qty: 1 on 02/23/2024 by Krysten Cohn MD at [facility] Right: Shoulder [employer] [id number] 03/30/2025 [id number] / [id number] / Procedures Procedure Name Priority Date/Time Associated Diagnosis Comments ELECTROCARDIOGRAM REPORT Routine 04/29/2024 3:06 PM PROFESSOR OF HISTORY Chronic combined systolic and diastolic congestive heart failure (HCC) Prolonged QT interval SCAN - LABS Routine 04/29/2024 1:59 PM PROFESSOR OF HISTORY POCT LIPID PANEL Routine 04/29/2024 12:42 PM PROFESSOR OF HISTORY Essential (primary) hypertension Chronic combined systolic and diastolic congestive heart failure (HCC) MAGNESIUM Routine 04/08/2024 2:35 AM PROFESSOR OF HISTORY EGFR Routine 04/08/2024 2:35 AM PROFESSOR OF HISTORY BASIC METABOLIC PANEL Routine 04/08/2024 2:35 AM PROFESSOR OF HISTORY EGFR Routine 04/07/2024 2:59 AM PROFESSOR OF HISTORY BASIC METABOLIC PANEL Routine 04/07/2024 2:59 AM PROFESSOR OF HISTORY SODIUM LEVEL Routine 04/06/2024 11:34 AM PROFESSOR OF HISTORY EGFR Routine 04/06/2024 4:02 AM PROFESSOR OF HISTORY DIFFERENTIAL AUTO Routine 04/06/2024 4:0 2 AM PROFESSOR OF HISTORY CBC WITH AUTO DIFFERENTIAL Routine 04/06/2024 4:02 AM PROFESSOR OF HISTORY BASIC METABOLIC PANEL Routine 04/06/2024 4:02 AM PROFESSOR OF HISTORY EGFR Routine 04/05/2024 4:59 AM PROFESSOR OF HISTORY DIFFERENTIAL AUTO Routine 04/05/2024 4:5 9 AM PROFESSOR OF HISTORY CBC WITH AUTO DIFFERENTIAL Routine 04/05/2024 4:59 AM PROFESSOR OF HISTORY BASIC METABOLIC PANEL Routine 04/05/2024 4:59 AM PROFESSOR OF HISTORY VANCOMYCIN LEVEL TROUGH Timed 04/04/19 11:04 AM PROFESSOR OF HISTORY EGFR Routine 04/04/2024 2:48 AM PROFESSOR OF HISTORY DIFFERENTIAL AUTO Routine 04/04/2024 2:4 8 AM PROFESSOR OF HISTORY COMPREHENSIVE METABOLIC PANEL Routine 04/04/2024 2:48 AM PROFESSOR OF HISTORY CBC WITH AUTO DIFFERENTIAL Routine 04/04/2024 2:48 AM PROFESSOR OF HISTORY POCT GLUCOSE DEVICE Routine 04/03/2024 4 :41 PM PROFESSOR OF HISTORY US VEIN DUPLEX LOWER EXTREMITY BILATERAL COMPLETE ED 04/03/2024 10:00 AM PROFESSOR OF HISTORY EGFR Routine 04/03/2024 7:19 AM PROFESSOR OF HISTORY T4, FREE Routine 04/03/2024 7:19 AM PROFESSOR OF HISTORY DIFFERENTIAL AUTO Routine 04/03/2024 7:1 9 AM PROFESSOR OF HISTORY BASIC METABOLIC PANEL Routine 04/03/2024 7:19 AM PROFESSOR OF HISTORY FOLATE Routine 04/03/2024 7:19 AM PROFESSOR OF HISTORY THYROID FUNCTION CASCADE Routine 04/03/2024 7:19 AM PROFESSOR OF HISTORY HEMOGLOBIN A1C Routine 04/03/2024 7:19 AM PROFESSOR OF HISTORY IRON PROFILE W/ IBC Routine 04/03/2024 7 :19 AM PROFESSOR OF HISTORY FERRITIN Routine 04/03/2024 7:19 AM PROFESSOR OF HISTORY VITAMIN B12 Routine 04/03/2024 7:19 AM PROFESSOR OF HISTORY CBC WITH AUTO DIFFERENTIAL Routine 04/03/2024 7:19 AM PROFESSOR OF HISTORY LIPID PANEL Routine 04/03/2024 7:19 AM PROFESSOR OF HISTORY PRO B-TYPE NATRIURETIC PEPTIDE Routine 04/03/2024 7:19 AM PROFESSOR OF HISTORY CRP (ACUTE PHASE) Routine 04/03/2024 7:1 9 AM PROFESSOR OF HISTORY ERYTHROCYTE SEDIMENTATION RATE Routine 04/03/2024 7:19 AM PROFESSOR OF HISTORY LACTATE Routine 04/03/2024 7:19 AM PROFESSOR OF HISTORY PHOSPHORUS Routine 04/03/2024 7:19 AM PROFESSOR OF HISTORY MAGNESIUM Routine 04/03/2024 7:19 AM PROFESSOR OF HISTORY POCT GLUCOSE DEVICE Routine 04/03/2024 12:[address] ENTIRE LOWER EXTREMITY LEFT W WO CONTRAST ED 04/03/2024 12:08 AM PROFESSOR OF HISTORY D-DIMER, QUANTITATIVE STAT 04/02/2024 9:57 PM PROFESSOR OF HISTORY AEROBIC AND ANAEROBIC CULTURE AND GRAM STAIN STAT 04/02/2024 9:57 PM PROFESSOR OF HISTORY BLOOD CULTURE STAT 04/02/2024 9:57 PM PROFESSOR OF HISTORY BLOOD CULTURE STAT 04/02/2024 9:57 PM PROFESSOR OF HISTORY INFLUENZA A/B, RSV, AND COVID-19 PCR STAT 04/02/2024 9:57 PM PROFESSOR OF HISTORY XR CHEST 1 VIEW ED 04/02/2024 9:35 PM PROFESSOR OF HISTORY XR KNEE LEFT 1 OR 2 VIEWS ED 04/02/2024 5:10 PM PROFESSOR OF HISTORY XR TIBIA FIBULA LEFT 2 VIEWS ED 04/02/2024 5:10 PM PROFESSOR OF HISTORY EGFR STAT 04/02/2024 4:07 PM PROFESSOR OF HISTORY DIFFERENTIAL AUTO STAT 04/02/2024 4:0 7 PM PROFESSOR OF HISTORY SEPSIS LACTATE WITH REFLEX Routine 04/02/2024 4:07 PM PROFESSOR OF HISTORY COMPREHENSIVE METABOLIC PANEL STAT 04/02/2024 4:07 PM PROFESSOR OF HISTORY CBC WITH AUTO DIFFERENTIAL STAT 04/02/2024 4:07 PM PROFESSOR OF HISTORY XR SHOULDER RIGHT 2 OR MORE VIEWS Schedule Routine, Read Routine (OP Routine) 04/01/2024 9:46 AM PROFESSOR OF HISTORY Status post reverse arthroplasty of right shoulder EGFR Routine 03/27/2024 2:09 PM PROFESSOR OF HISTORY Prepatellar bursitis of left knee DIFFERENTIAL AUTO Routine 03/27/2024 2:0 9 PM PROFESSOR OF HISTORY Prepatellar bursitis of left knee GLUCOSE, RANDOM (OUTREACH) Routine 03/27/2024 2:09 PM PROFESSOR OF HISTORY Prepatellar bursitis of left knee COMPREHENSIVE METABOLIC PANEL WITHOUT GLUCOSE (OUTREACH) Routine 03/27/2024 2:09 PM PROFESSOR OF HISTORY Prepatellar bursitis of left knee ERYTHROCYTE SEDIMENTATION RATE Routine 03/27/2024 2:09 PM PROFESSOR OF HISTORY Prepatellar bursitis of left knee COMPREHENSIVE METABOLIC PANEL (OUTREACH) Routine 03/27/2024 2:09 PM PROFESSOR OF HISTORY Prepatellar bursitis of left knee CBC WITH AUTO DIFFERENTIAL Routine 03/27/2024 2:09 PM PROFESSOR OF HISTORY Prepatellar bursitis of left knee CRP (ACUTE PHASE) Routine 03/27/2024 2:0 9 PM PROFESSOR OF HISTORY Prepatellar bursitis of left knee POCT GLUCOSE DEVICE Routine 03/12/2024 7 :49 PM PROFESSOR OF HISTORY POCT GLUCOSE DEVICE Routine 03/12/2024 4 :39 PM PROFESSOR OF HISTORY POCT GLUCOSE DEVICE Routine 03/12/2024 11:41 AM PROFESSOR OF HISTORY POCT GLUCOSE DEVICE Routine 03/12/2024 7:48 AM PROFESSOR OF HISTORY EGFR Routine 03/11/2024 9:56 PM PROFESSOR OF HISTORY DIFFERENTIAL AUTO Routine 03/11/2024 9:5 6 PM PROFESSOR OF HISTORY PHOSPHORUS Routine 03/11/2024 9:56 PM PROFESSOR OF HISTORY COMPREHENSIVE METABOLIC PANEL Routine 03/11/2024 9:56 PM PROFESSOR OF HISTORY MAGNESIUM Routine 03/11/2024 9:56 PM PROFESSOR OF HISTORY CBC WITH AUTO DIFFERENTIAL Routine 03/11/2024 9:56 PM PROFESSOR OF HISTORY POCT GLUCOSE DEVICE Routine 03/11/2024 7 :43 PM PROFESSOR OF HISTORY POCT GLUCOSE DEVICE Routine 03/11/2024 5 :07 PM PROFESSOR OF HISTORY POCT GLUCOSE DEVICE Routine 03/11/2024 11:52 AM PROFESSOR OF HISTORY POCT GLUCOSE DEVICE Routine 03/11/2024 7 :40 AM PROFESSOR OF HISTORY POCT GLUCOSE DEVICE Routine 03/10/2024 7 :47 PM PROFESSOR OF HISTORY POCT GLUCOSE DEVICE Routine 03/10/2024 5 :07 PM PROFESSOR OF HISTORY POCT GLUCOSE DEVICE Routine 03/10/2024 11:24 AM PROFESSOR OF HISTORY POCT GLUCOSE DEVICE Routine 03/10/2024 7 :43 AM PROFESSOR OF HISTORY EGFR Routine 03/09/2024 8:42 PM PROFESSOR OF HISTORY DIFFERENTIAL AUTO Routine 03/09/2024 8:4 2 PM PROFESSOR OF HISTORY PHOSPHORUS Routine 03/09/2024 8:42 PM PROFESSOR OF HISTORY COMPREHENSIVE METABOLIC PANEL Routine 03/09/2024 8:42 PM PROFESSOR OF HISTORY MAGNESIUM Routine 03/09/2024 8:42 PM PROFESSOR OF HISTORY CBC WITH AUTO DIFFERENTIAL Routine 03/09/2024 8:42 PM PROFESSOR OF HISTORY POCT GLUCOSE DEVICE Routine 03/09/2024 7 :31 PM PROFESSOR OF HISTORY POCT GLUCOSE DEVICE Routine 03/09/2024 4 :39 PM PROFESSOR OF HISTORY POCT GLUCOSE DEVICE Routine 03/09/2024 11:39 AM PROFESSOR OF HISTORY POCT GLUCOSE DEVICE Routine 03/09/2024 8 :27 AM PROFESSOR OF HISTORY EGFR Routine 03/08/2024 9:09 PM PROFESSOR OF HISTORY PHOSPHORUS Routine 03/08/2024 9:09 PM PROFESSOR OF HISTORY COMPREHENSIVE METABOLIC PANEL Routine 03/08/2024 9:09 PM PROFESSOR OF HISTORY MAGNESIUM Routine 03/08/2024 9:09 PM PROFESSOR OF HISTORY POCT GLUCOSE DEVICE Routine 03/08/2024 7 :40 PM PROFESSOR OF HISTORY POCT GLUCOSE DEVICE Routine 03/08/2024 5 :03 PM PROFESSOR OF HISTORY POCT GLUCOSE DEVICE Routine 03/08/2024 11:12 AM PROFESSOR OF HISTORY POCT GLUCOSE DEVICE Routine 03/08/2024 8 :18 AM PROFESSOR OF HISTORY EGFR Routine 03/07/2024 10:22 PM PROFESSOR OF HISTORY DIFFERENTIAL AUTO Routine 03/07/2024 10:22 PM PROFESSOR OF HISTORY PHOSPHORUS Routine 03/07/2024 10:22 PM PROFESSOR OF HISTORY COMPREHENSIVE METABOLIC PANEL Routine 03/07/2024 10:22 PM PROFESSOR OF HISTORY MAGNESIUM Routine 03/07/2024 10:22 PM PROFESSOR OF HISTORY CBC WITH AUTO DIFFERENTIAL Routine 03/07/2024 10:22 PM PROFESSOR OF HISTORY POCT GLUCOSE DEVICE Routine 03/07/2024 7 :39 PM PROFESSOR OF HISTORY POCT GLUCOSE DEVICE Routine 03/07/2024 5 :48 PM PROFESSOR OF HISTORY POCT GLUCOSE DEVICE Routine 03/07/2024 11:28 AM PROFESSOR OF HISTORY POCT GLUCOSE DEVICE Routine 03/07/2024 7 :44 AM PROFESSOR OF HISTORY EGFR Routine 03/06/2024 10:05 PM PROFESSOR OF HISTORY DIFFERENTIAL AUTO Routine 03/06/2024 10:05 PM PROFESSOR OF HISTORY PHOSPHORUS Routine 03/06/2024 10:05 PM PROFESSOR OF HISTORY COMPREHENSIVE METABOLIC PANEL Routine 03/06/2024 10:05 PM PROFESSOR OF HISTORY MAGNESIUM Routine 03/06/2024 10:05 PM PROFESSOR OF HISTORY CBC WITH AUTO DIFFERENTIAL Routine 03/06/2024 10:05 PM PROFESSOR OF HISTORY POCT GLUCOSE DEVICE Routine 03/06/2024 7 :31 PM PROFESSOR OF HISTORY POCT GLUCOSE DEVICE Routine 03/06/2024 5 :46 PM PROFESSOR OF HISTORY POCT GLUCOSE DEVICE Routine 03/06/2024 11:42 AM PROFESSOR OF HISTORY POCT GLUCOSE DEVICE Routine 03/06/2024 8 :47 AM PROFESSOR OF HISTORY PROTIME-INR STAT 03/05/2024 10:53 PM PROFESSOR OF HISTORY POCT GLUCOSE DEVICE Routine 03/05/2024 8 :00 PM PROFESSOR OF HISTORY EGFR Routine 03/05/2024 7:52 PM PROFESSOR OF HISTORY DIFFERENTIAL AUTO Routine 03/05/2024 7:5 2 PM PROFESSOR OF HISTORY PHOSPHORUS Routine 03/05/2024 7:52 PM PROFESSOR OF HISTORY COMPREHENSIVE METABOLIC PANEL Routine 03/05/2024 7:52 PM PROFESSOR OF HISTORY MAGNESIUM Routine 03/05/2024 7:52 PM PROFESSOR OF HISTORY CBC WITH AUTO DIFFERENTIAL Routine 03/05/2024 7:52 PM PROFESSOR OF HISTORY POCT GLUCOSE DEVICE Routine 03/05/2024 5 :07 PM PROFESSOR OF HISTORY POCT GLUCOSE DEVICE Routine 03/05/2024 11:39 AM PROFESSOR OF HISTORY POCT GLUCOSE DEVICE Routine 03/05/2024 8 :03 AM PROFESSOR OF HISTORY EGFR Routine 2024 10:39 PM PROFESSOR OF HISTORY DIFFERENTIAL AUTO Routine 2024 10:39 PM PROFESSOR OF HISTORY PHOSPHORUS Routine 2024 10:39 PM PROFESSOR OF HISTORY COMPREHENSIVE METABOLIC PANEL Routine 2024 10:39 PM PROFESSOR OF HISTORY PROTIME-INR Routine 2024 10:39 PM PROFESSOR OF HISTORY MAGNESIUM Routine 2024 10:39 PM PROFESSOR OF HISTORY CBC WITH AUTO DIFFERENTIAL Routine 2024 10:39 PM PROFESSOR OF HISTORY POCT GLUCOSE DEVICE Routine 2024 8 :09 PM PROFESSOR OF HISTORY POCT GLUCOSE DEVICE Routine 2024 4 :43 PM PROFESSOR OF HISTORY POCT GLUCOSE DEVICE Routine 2024 12:06 PM PROFESSOR OF HISTORY POCT GLUCOSE DEVICE Routine 2024 8 :37 AM PROFESSOR OF HISTORY MANUAL DIFFERENTIAL Routine 03/03/2024 10:26 PM PROFESSOR OF HISTORY EGFR Routine 03/03/2024 10:26 PM PROFESSOR OF HISTORY PHOSPHORUS Routine 03/03/2024 10:26 PM PROFESSOR OF HISTORY COMPREHENSIVE METABOLIC PANEL Routine 03/03/2024 10:26 PM PROFESSOR OF HISTORY PROTIME-INR Routine 03/03/2024 10:26 PM PROFESSOR OF HISTORY MAGNESIUM Routine 03/03/2024 10:26 PM PROFESSOR OF HISTORY CBC WITH AUTO DIFFERENTIAL Routine 03/03/2024 10:26 PM PROFESSOR OF HISTORY POCT GLUCOSE DEVICE Routine 03/03/2024 8 :17 PM PROFESSOR OF HISTORY XR CHEST 1 VIEW IP Routine 03/03/2024 7:14 PM PROFESSOR OF HISTORY POCT GLUCOSE DEVICE Routine 03/03/2024 5 :47 PM PROFESSOR OF HISTORY POCT GLUCOSE DEVICE Routine 03/03/2024 12:17 PM PROFESSOR OF HISTORY POCT GLUCOSE DEVICE Routine 03/03/2024 8 :09 AM PROFESSOR OF HISTORY POCT GLUCOSE DEVICE Routine 03/02/2024 11:51 PM PROFESSOR OF HISTORY CRITICAL CARE Routine 03/02/2024 9:58 PM PROFESSOR OF HISTORY Status post reverse arthroplasty of right shoulder [Z96.611] MARY (acute kidney injury) Anxiety Acute pain of right shoulder WOUND CARE Routine 03/02/2024 9:07 PM PROFESSOR OF HISTORY Edema of both legs Localized swelling of left lower extremity PROTIME-INR STAT 03/02/2024 8:45 PM PROFESSOR OF HISTORY POCT GLUCOSE DEVICE Routine 03/02/2024 8 :01 PM PROFESSOR OF HISTORY EGFR Routine 03/02/2024 7:12 PM PROFESSOR OF HISTORY DIFFERENTIAL AUTO Routine 03/02/2024 7:1 2 PM PROFESSOR OF HISTORY PHOSPHORUS Routine 03/02/2024 7:12 PM PROFESSOR OF HISTORY COMPREHENSIVE METABOLIC PANEL Routine 03/02/2024 7:12 PM PROFESSOR OF HISTORY MAGNESIUM Routine 03/02/2024 7:12 PM PROFESSOR OF HISTORY CBC WITH AUTO DIFFERENTIAL Routine 03/02/2024 7:12 PM PROFESSOR OF HISTORY XR CHEST 1 VIEW Timed 03/02/2024 5:39 PM PROFESSOR OF HISTORY CRITICAL CARE Routine 03/02/2024 5:11 PM PROFESSOR OF HISTORY Closed dislocation of right shoulder, sequela POCT GLUCOSE DEVICE Routine 03/02/2024 3 :14 PM PROFESSOR OF HISTORY EGFR Timed 03/02/2024 2:19 PM PROFESSOR OF HISTORY PHOSPHORUS Timed 03/02/2024 2:19 PM PROFESSOR OF HISTORY MAGNESIUM Timed 03/02/2024 2:19 PM PROFESSOR OF HISTORY BASIC METABOLIC PANEL Timed 03/02/2024 2:19 PM PROFESSOR OF HISTORY POCT GLUCOSE DEVICE Routine 03/02/2024 11:11 AM PROFESSOR OF HISTORY BLOOD GAS, VENOUS Routine 03/02/2024 8:1 4 AM PROFESSOR OF HISTORY POCT GLUCOSE DEVICE Routine 03/02/2024 7 :19 AM PROFESSOR OF HISTORY PRO B-TYPE NATRIURETIC PEPTIDE Timed 03/02/2024 5:12 AM PROFESSOR OF HISTORY POCT GLUCOSE DEVICE Routine 03/02/2024 3 :09 AM PROFESSOR OF HISTORY CRITICAL CARE Routine 03/01/2024 11:50 PM PROFESSOR OF HISTORY Closed dislocation of right shoulder, sequela MARY (acute kidney injury) Acute postoperative pain of right shoulder POCT GLUCOSE DEVICE Routine 03/01/2024 11:14 PM PROFESSOR OF HISTORY EGFR Routine 03/01/2024 8:36 PM PROFESSOR OF HISTORY PHOSPHORUS Routine 03/01/2024 8:36 PM PROFESSOR OF HISTORY MAGNESIUM Routine 03/01/2024 8:36 PM PROFESSOR OF HISTORY DIFFERENTIAL AUTO Routine 03/01/2024 8:3 6 PM PROFESSOR OF HISTORY BLOOD GAS, VENOUS Timed 03/01/2024 8:3 6 PM PROFESSOR OF HISTORY COMPREHENSIVE METABOLIC PANEL Routine 03/01/2024 8:36 PM PROFESSOR OF HISTORY PROTIME-INR Routine 03/01/2024 8:36 PM PROFESSOR OF HISTORY CBC WITH AUTO DIFFERENTIAL Routine 03/01/2024 8:36 PM PROFESSOR OF HISTORY XR CHEST 1 VIEW Timed 03/01/2024 7:53 PM PROFESSOR OF HISTORY POCT GLUCOSE DEVICE Routine 03/01/2024 7 :11 PM PROFESSOR OF HISTORY TROPONIN I HIGH-SENSITIVITY 6-HOUR Timed 03/01/2024 4:21 PM PROFESSOR OF HISTORY BLOOD GAS, VENOUS Timed 03/01/2024 4:2 1 PM PROFESSOR OF HISTORY POCT GLUCOSE DEVICE Routine 03/01/2024 3 :18 PM PROFESSOR OF HISTORY TRANSTHORACIC ECHO (TTE) LIMITED/FOLLOW UP W LTD DOPPLER/CF W CONTRAST STAT 03/01/2024 3:04 PM PROFESSOR OF HISTORY TROPONIN I HIGH-SENSITIVITY 4-HOUR Timed 03/01/2024 2:26 PM PROFESSOR OF HISTORY TROPONIN I HIGH-SENSITIVITY 2-HOUR Timed 03/01/2024 1:21 PM PROFESSOR OF HISTORY US RUQ IP Routine 03/01/2024 1:10 PM PROFESSOR OF HISTORY CRITICAL CARE Routine 03/01/2024 12:57 PM PROFESSOR OF HISTORY Acute respiratory failure with hypoxia and hypercapnia (HCC) POCT GLUCOSE DEVICE Routine 03/01/2024 11:17 AM PROFESSOR OF HISTORY CRITICAL RESULT CALLBACK CARDIO CHEM Routine 03/01/2024 10:29 AM PROFESSOR OF HISTORY TROPONIN I HIGH-SENSITIVITY SERIES (BASELINE, 2HR, 4HR, 6HR) Routine 03/01/2024 10:29 AM PROFESSOR OF HISTORY CREATINE KINASE (CK), TOTAL Routine 03/01/2024 10:26 AM PROFESSOR OF HISTORY GAMMA GT Routine 03/01/2024 10:23 AM PROFESSOR OF HISTORY LIPASE Routine 03/01/2024 10:23 AM PROFESSOR OF HISTORY HEPATITIS PANEL, ACUTE Routine 10:23 AM PROFESSOR OF HISTORY EGFR Timed 03/01/2024 7:41 AM PROFESSOR OF HISTORY BLOOD GAS, VENOUS Timed 03/01/2024 7:4 1 AM PROFESSOR OF HISTORY PROTIME-INR Timed 03/01/2024 7:41 AM PROFESSOR OF HISTORY COMPREHENSIVE METABOLIC PANEL Timed 03/01/2024 7:41 AM PROFESSOR OF HISTORY POCT GLUCOSE DEVICE Routine 03/01/2024 7 :22 AM PROFESSOR OF HISTORY MANUAL DIFFERENTIAL Routine 03/01/2024 6 :40 AM PROFESSOR OF HISTORY CBC WITH AUTO DIFFERENTIAL Routine 03/01/2024 6:40 AM PROFESSOR OF HISTORY POCT GLUCOSE DEVICE Routine 03/01/2024 3 :08 AM PROFESSOR OF HISTORY LACTATE STAT 03/01/2024 12:11 AM PROFESSOR OF HISTORY POCT GLUCOSE DEVICE Routine 02/29/2024 11:10 PM PROFESSOR OF HISTORY EGFR Timed 02/29/2024 10:33 PM PROFESSOR OF HISTORY HEMOGLOBIN AND HEMATOCRIT Routine 02/29/2024 10:33 PM PROFESSOR OF HISTORY BLOOD GAS, VENOUS Timed 02/29/2024 10:33 PM PROFESSOR OF HISTORY PROTIME-INR Timed 02/29/2024 10:33 PM PROFESSOR OF HISTORY COMPREHENSIVE METABOLIC PANEL Timed 02/29/2024 10:33 PM PROFESSOR OF HISTORY CRITICAL CARE Routine 02/29/2024 8:54 PM PROFESSOR OF HISTORY Closed dislocation of right shoulder, sequela POCT GLUCOSE DEVICE Routine 02/29/2024 7 :13 PM PROFESSOR OF HISTORY XR CHEST 1 VIEW Timed 02/29/2024 6:29 PM PROFESSOR OF HISTORY LACTATE STAT 02/29/2024 6:01 PM PROFESSOR OF HISTORY BLOOD GAS, VENOUS STAT 02/29/2024 6:0 1 PM PROFESSOR OF HISTORY POC BLOOD GAS AND CHEMISTRIES, VENOUS Routine 02/29/2024 5:47 PM PROFESSOR OF HISTORY POCT GLUCOSE DEVICE Routine 02/29/2024 3 :25 PM PROFESSOR OF HISTORY BLOOD CULTURE Routine 02/29/2024 2:52 PM PROFESSOR OF HISTORY BLOOD CULTURE Routine 02/29/2024 2:52 PM PROFESSOR OF HISTORY BLOOD GAS, VENOUS Routine 02/29/2024 2:2 2 PM PROFESSOR OF HISTORY POCT GLUCOSE DEVICE Routine 02/29/2024 11:11 AM PROFESSOR OF HISTORY EGFR Timed 02/29/2024 10:58 AM PROFESSOR OF HISTORY BLOOD GAS, VENOUS STAT 02/29/2024 10:58 AM PROFESSOR OF HISTORY BASIC METABOLIC PANEL Timed 02/29/2024 10:58 AM PROFESSOR OF HISTORY EGFR Timed 02/29/2024 8:19 AM PROFESSOR OF HISTORY BLOOD GAS, VENOUS Timed 02/29/2024 8:1 9 AM PROFESSOR OF HISTORY PROTIME-INR Timed 02/29/2024 8:19 AM PROFESSOR OF HISTORY COMPREHENSIVE METABOLIC PANEL Timed 02/29/2024 8:19 AM PROFESSOR OF HISTORY CRITICAL CARE Routine 02/29/2024 7:40 AM PROFESSOR OF HISTORY MARY (acute kidney injury) Acute respiratory failure with hypoxia and hypercapnia (HCC) POCT GLUCOSE DEVICE Routine 02/29/2024 7 :19 AM PROFESSOR OF HISTORY POCT GLUCOSE DEVICE Routine 02/29/2024 3 :18 AM PROFESSOR OF HISTORY CBC WITH AUTO DIFFERENTIAL Routine 02/28/2024 11:35 PM PROFESSOR OF HISTORY DIFFERENTIAL AUTO Routine 02/28/2024 11:35 PM PROFESSOR OF HISTORY EGFR Timed 02/28/2024 11:35 PM PROFESSOR OF HISTORY HEMOGLOBIN AND HEMATOCRIT Routine 02/28/2024 11:35 PM PROFESSOR OF HISTORY BLOOD GAS, VENOUS Timed 02/28/2024 11:35 PM PROFESSOR OF HISTORY PROTIME-INR Timed 02/28/2024 11:35 PM PROFESSOR OF HISTORY COMPREHENSIVE METABOLIC PANEL Timed 02/28/2024 11:35 PM PROFESSOR OF HISTORY POCT GLUCOSE DEVICE Routine 02/28/2024 11:23 PM PROFESSOR OF HISTORY POCT GLUCOSE DEVICE Routine 02/28/2024 7 :25 PM PROFESSOR OF HISTORY CRITICAL CARE Routine 02/28/2024 6:37 PM PROFESSOR OF HISTORY Closed dislocation of right shoulder, sequela XR CHEST 1 VIEW Timed 02/28/2024 6:12 PM PROFESSOR OF HISTORY POCT GLUCOSE DEVICE Routine 02/28/2024 3 :23 PM PROFESSOR OF HISTORY POCT GLUCOSE DEVICE Routine 02/28/2024 11:12 AM PROFESSOR OF HISTORY EGFR Timed 02/28/2024 9:35 AM PROFESSOR OF HISTORY BLOOD GAS, VENOUS Timed 02/28/2024 9:3 5 AM PROFESSOR OF HISTORY PROTIME-INR Timed 02/28/2024 9:35 AM PROFESSOR OF HISTORY COMPREHENSIVE METABOLIC PANEL Timed 02/28/2024 9:35 AM PROFESSOR OF HISTORY CRITICAL CARE Routine 02/28/2024 7:43 AM PROFESSOR OF HISTORY Acute respiratory failure, unspecified whether with hypoxia or hypercapnia (HCC) Acute postoperative pain of right shoulder Acute respiratory failure with hypoxia and hypercapnia (HCC) POCT GLUCOSE DEVICE Routine 02/28/2024 7 :32 AM PROFESSOR OF HISTORY HEMOGLOBIN AND HEMATOCRIT Routine 02/28/2024 4:27 AM PROFESSOR OF HISTORY POCT GLUCOSE DEVICE Routine 02/28/2024 3 :10 AM PROFESSOR OF HISTORY BLOOD GAS, VENOUS Timed 02/27/2024 11:23 PM PROFESSOR OF HISTORY POCT GLUCOSE DEVICE Routine 02/27/2024 11:20 PM PROFESSOR OF HISTORY CRITICAL CARE Routine 02/27/2024 7:55 PM PROFESSOR OF HISTORY Closed dislocation of right shoulder, sequela EGFR Timed 02/27/2024 7:51 PM PROFESSOR OF HISTORY PHOSPHORUS Timed 02/27/2024 7:51 PM PROFESSOR OF HISTORY PROTIME-INR Timed 02/27/2024 7:51 PM PROFESSOR OF HISTORY COMPREHENSIVE METABOLIC PANEL Timed 02/27/2024 7:51 PM PROFESSOR OF HISTORY POCT GLUCOSE DEVICE Routine 02/27/2024 7 :00 PM PROFESSOR OF HISTORY XR CHEST 1 VIEW Timed 02/27/2024 6:19 PM PROFESSOR OF HISTORY BLOOD GAS, VENOUS Routine 02/27/2024 5:5 7 PM PROFESSOR OF HISTORY BLOOD GAS, VENOUS Timed 02/27/2024 3:4 3 PM PROFESSOR OF HISTORY BLOOD CULTURE Routine 02/27/2024 12:52 PM PROFESSOR OF HISTORY BLOOD CULTURE Routine 02/27/2024 12:52 PM PROFESSOR OF HISTORY BLOOD GAS, VENOUS Routine 02/27/2024 12:19 PM PROFESSOR OF HISTORY POCT GLUCOSE DEVICE Routine 02/27/2024 11:13 AM PROFESSOR OF HISTORY DIFFERENTIAL AUTO STAT 02/27/2024 9:2 0 AM PROFESSOR OF HISTORY CBC WITH AUTO DIFFERENTIAL STAT 02/27/2024 9:20 AM PROFESSOR OF HISTORY EGFR Timed 02/27/2024 9:00 AM PROFESSOR OF HISTORY BLOOD GAS, VENOUS Timed 02/27/2024 9:0 0 AM PROFESSOR OF HISTORY PROTIME-INR Timed 02/27/2024 9:00 AM PROFESSOR OF HISTORY COMPREHENSIVE METABOLIC PANEL Timed 02/27/2024 9:00 AM PROFESSOR OF HISTORY CRITICAL CARE Routine 02/27/2024 8:54 AM PROFESSOR OF HISTORY MARY (acute kidney injury) Acute respiratory failure, unspecified whether with hypoxia or hypercapnia (HCC) Acute postoperative pain of right shoulder POCT GLUCOSE DEVICE Routine 02/27/2024 7 :10 AM PROFESSOR OF HISTORY HEMOGLOBIN AND HEMATOCRIT Routine 02/27/2024 5:42 AM PROFESSOR OF HISTORY POCT GLUCOSE DEVICE Routine 02/27/2024 3 :09 AM PROFESSOR OF HISTORY POCT GLUCOSE DEVICE Routine 02/26/2024 11:33 PM PROFESSOR OF HISTORY BLOOD GAS, VENOUS Timed 02/26/2024 11:05 PM PROFESSOR OF HISTORY POCT GLUCOSE DEVICE Routine 02/26/2024 9 :35 PM PROFESSOR OF HISTORY AEROBIC AND ANAEROBIC CULTURE AND GRAM STAIN Routine 02/26/2024 9:35 PM PROFESSOR OF HISTORY CRITICAL CARE Routine 02/26/2024 9:25 PM PROFESSOR OF HISTORY Closed dislocation of right shoulder, sequela COMPREHENSIVE METABOLIC PANEL Routine 02/26/2024 7:22 PM PROFESSOR OF HISTORY EGFR Routine 02/26/2024 7:22 PM PROFESSOR OF HISTORY DIFFERENTIAL AUTO Routine 02/26/2024 7:2 2 PM PROFESSOR OF HISTORY BLOOD GAS, VENOUS Timed 02/26/2024 7:2 2 PM PROFESSOR OF HISTORY PHOSPHORUS Routine 02/26/2024 7:22 PM PROFESSOR OF HISTORY MAGNESIUM Routine 02/26/2024 7:22 PM PROFESSOR OF HISTORY CBC WITH AUTO DIFFERENTIAL Routine 02/26/2024 7:22 PM PROFESSOR OF HISTORY PROTIME-INR Timed 02/26/2024 7:22 PM PROFESSOR OF HISTORY XR CHEST 1 VIEW IP Routine 02/26/2024 6:26 PM PROFESSOR OF HISTORY BLOOD GAS, VENOUS Timed 02/26/2024 5:1 [address] CHEST PE W CONTRAST IP Routine 4:[address] ENTIRE LOWER EXTREMITY LEFT W CONTRAST ED Urgent/IP Urgent 02/26/2024 4:33 PM PROFESSOR OF HISTORY POCT GLUCOSE DEVICE Routine 02/26/2024 3 :34 PM PROFESSOR OF HISTORY US VEIN DUPLEX LOWER EXTREMITY BILATERAL COMPLETE ED Urgent/IP Urgent 02/26/2024 12:41 PM PROFESSOR OF HISTORY XR CHEST 1 VIEW Critical/Life- Threatening 02/26/2024 12:35 PM PROFESSOR OF HISTORY BLOOD CULTURE Routine 02/26/2024 12:35 PM PROFESSOR OF HISTORY OXYHEMOGLOBIN, CENTRAL VENOUS STAT 02/26/2024 12:24 PM PROFESSOR OF HISTORY BLOOD GAS, VENOUS Timed 02/26/2024 12:18 PM PROFESSOR OF HISTORY ERYTHROCYTE SEDIMENTATION RATE Routine 02/26/2024 12:18 PM PROFESSOR OF HISTORY CRP (ACUTE PHASE) Routine 02/26/2024 12:18 PM PROFESSOR OF HISTORY POCT GLUCOSE DEVICE Routine 02/26/2024 11:45 AM PROFESSOR OF HISTORY IL ARTL CATHJ/CANNULJ MNTR/TRANSFUSION SPX PRQ Routine 02/26/2024 11:24 AM PROFESSOR OF HISTORY Acute respiratory failure, unspecified whether with hypoxia or hypercapnia (HCC) BLOOD CULTURE Routine 02/26/2024 11:13 AM PROFESSOR OF HISTORY TRANSTHORACIC ECHO (TTE) COMPLETE W DOPPLER/CF W CONTRAST STAT 02/26/2024 10:03 AM PROFESSOR OF HISTORY IL INSJ NON-TUNNELED CENTRAL VENOUS CATH AGE 3 YR/> Routine 02/26/2024 10:00 AM PROFESSOR OF HISTORY Acute respiratory failure with hypoxia and hypercapnia (HCC) POC BLOOD GAS AND CHEMISTRIES, VENOUS Routine 02/26/2024 9:56 AM PROFESSOR OF HISTORY EGFR STAT 02/26/2024 9:50 AM PROFESSOR OF HISTORY DIFFERENTIAL AUTO STAT 02/26/2024 9:5 0 AM PROFESSOR OF HISTORY BLOOD GAS, VENOUS STAT 02/26/2024 9:5 0 AM PROFESSOR OF HISTORY LACTATE STAT 02/26/2024 9:50 AM PROFESSOR OF HISTORY COMPREHENSIVE METABOLIC PANEL STAT 02/26/2024 9:50 AM PROFESSOR OF HISTORY CBC WITH AUTO DIFFERENTIAL STAT 02/26/2024 9:50 AM PROFESSOR OF HISTORY XR CHEST 1 VIEW ED Urgent/IP Urgent 02/26/2024 9:09 AM PROFESSOR OF HISTORY EGFR Timed 02/26/2024 7:52 AM PROFESSOR OF HISTORY BLOOD GAS, VENOUS Routine 02/26/2024 7:5 2 AM PROFESSOR OF HISTORY PROTIME-INR Timed 02/26/2024 7:52 AM PROFESSOR OF HISTORY COMPREHENSIVE METABOLIC PANEL Timed 02/26/2024 7:52 AM PROFESSOR OF HISTORY INFECTION PREVENTION MRSA ONLY (STAPHYLOCOCCUS AUREUS) CULTURE Routine 02/26/2024 7:52 AM PROFESSOR OF HISTORY POCT GLUCOSE DEVICE Routine 02/26/2024 7 :14 AM PROFESSOR OF HISTORY CRITICAL CARE Routine 02/26/2024 7:12 AM PROFESSOR OF HISTORY Acute respiratory failure with hypoxia (HCC) MARY (acute kidney injury) BLOOD GAS, VENOUS STAT 02/26/2024 3:2 9 AM PROFESSOR OF HISTORY HEMOGLOBIN AND HEMATOCRIT Routine 02/26/2024 3:29 AM PROFESSOR OF HISTORY XR KNEE LEFT 1 OR 2 VIEWS IP Routine 02/26/2024 3:14 AM PROFESSOR OF HISTORY IL INSJ NON-TUNNELED CENTRAL VENOUS CATH AGE 3 YR/> Routine 02/26/2024 12:23 AM PROFESSOR OF HISTORY Renal insufficiency IL ARTL CATHJ/CANNULJ MNTR/TRANSFUSION SPX PRQ Routine 02/26/2024 12:21 AM PROFESSOR OF HISTORY Renal insufficiency URINALYSIS, MICROSCOPIC ONLY Routine 02/25/2024 10:54 PM PROFESSOR OF HISTORY BLOOD GAS, VENOUS Timed 02/25/2024 10:54 PM PROFESSOR OF HISTORY URINE CULTURE Routine 02/25/2024 10:54 PM PROFESSOR OF HISTORY URINALYSIS AND REFLEX TO MICROSCOPIC AND CULTURE Routine 02/25/2024 10:54 PM PROFESSOR OF HISTORY CRITICAL CARE Routine 02/25/2024 7:45 PM PROFESSOR OF HISTORY Closed dislocation of right shoulder, sequela COMPREHENSIVE METABOLIC PANEL Routine 02/25/2024 7:37 PM PROFESSOR OF HISTORY EGFR Routine 02/25/2024 7:37 PM PROFESSOR OF HISTORY PROTIME-INR Timed 02/25/2024 7:37 PM PROFESSOR OF HISTORY TROPONIN I HIGH-SENSITIVITY 6-HOUR Timed 02/25/2024 7:37 PM PROFESSOR OF HISTORY PHOSPHORUS Routine 02/25/2024 7:37 PM PROFESSOR OF HISTORY MAGNESIUM Routine 02/25/2024 7:37 PM PROFESSOR OF HISTORY CALCIUM, IONIZED Routine 02/25/2024 7:37 PM PROFESSOR OF HISTORY CBC WITHOUT DIFFERENTIAL Routine 02/25/2024 7:37 PM PROFESSOR OF HISTORY POC BLOOD GAS AND CHEMISTRIES, VENOUS Routine 02/25/2024 7:17 PM PROFESSOR OF HISTORY POCT GLUCOSE DEVICE Routine 02/25/2024 5 :28 PM PROFESSOR OF HISTORY IL INSJ NON-TUNNELED CENTRAL VENOUS CATH AGE 3 YR/> Routine 02/25/2024 5:21 PM PROFESSOR OF HISTORY Renal insufficiency TROPONIN I HIGH-SENSITIVITY 2-HOUR Timed 02/25/2024 4:43 PM PROFESSOR OF HISTORY ECG 12-LEAD STAT 02/25/2024 4:04 PM PROFESSOR OF HISTORY POCT GLUCOSE DEVICE Routine 02/25/2024 3 :07 PM PROFESSOR OF HISTORY CRITICAL CARE Routine 02/25/2024 3:02 PM PROFESSOR OF HISTORY Acute hypoxemic respiratory failure (HCC) TROPONIN I HIGH-SENSITIVITY SERIES (BASELINE, 2HR, 4HR, 6HR) STAT 02/25/2024 2:55 PM PROFESSOR OF HISTORY RESPIRATORY PATHOGEN PANEL Routine 02/25/2024 2:55 PM PROFESSOR OF HISTORY IL ARTL CATHJ/CANNULJ MNTR/TRANSFUSION SPX PRQ Routine 02/25/2024 12:00 PM PROFESSOR OF HISTORY Acute respiratory failure with hypoxia (HCC) POCT GLUCOSE DEVICE Routine 02/25/2024 11:06 AM PROFESSOR OF HISTORY LIPID PANEL STAT 02/25/2024 11:05 AM PROFESSOR OF HISTORY EGFR STAT 02/25/2024 11:05 AM PROFESSOR OF HISTORY T4, FREE STAT 02/25/2024 11:05 AM PROFESSOR OF HISTORY APTT STAT 02/25/2024 11:05 AM PROFESSOR OF HISTORY LACTATE STAT 02/25/2024 11:05 AM PROFESSOR OF HISTORY MAGNESIUM STAT 02/25/2024 11:05 AM PROFESSOR OF HISTORY PHOSPHORUS STAT 02/25/2024 11:05 AM PROFESSOR OF HISTORY PRO B-TYPE NATRIURETIC PEPTIDE STAT 02/25/2024 11:05 AM PROFESSOR OF HISTORY PROTIME-INR STAT 02/25/2024 11:05 AM PROFESSOR OF HISTORY THYROID FUNCTION CASCADE STAT 02/25/2024 11:05 AM PROFESSOR OF HISTORY COMPREHENSIVE METABOLIC PANEL STAT 02/25/2024 11:05 AM PROFESSOR OF HISTORY CBC WITHOUT DIFFERENTIAL STAT 02/25/2024 11:05 AM PROFESSOR OF HISTORY CALCIUM, IONIZED STAT 02/25/2024 11:05 AM PROFESSOR OF HISTORY BLOOD GAS, ARTERIAL STAT 02/25/2024 11:05 AM PROFESSOR OF HISTORY BETA-HYDROXYBUTYRATE STAT 02/25/2024 11:05 AM PROFESSOR OF HISTORY BLOOD CULTURE STAT 02/25/2024 11:05 AM PROFESSOR OF HISTORY BLOOD CULTURE STAT 02/25/2024 11:05 AM PROFESSOR OF HISTORY POCT GLUCOSE DEVICE Routine 02/25/2024 8 :23 AM PROFESSOR OF HISTORY ARTERIAL BLOOD GAS W/LACTATE Routine 02/25/2024 7:54 AM PROFESSOR OF HISTORY XR CHEST 1 VIEW ED Urgent/IP Urgent 02/25/2024 7:34 AM PROFESSOR OF HISTORY EGFR Routine 02/25/2024 4:49 AM PROFESSOR OF HISTORY HEMOGLOBIN AND HEMATOCRIT Routine 02/25/2024 4:49 AM PROFESSOR OF HISTORY BASIC METABOLIC PANEL Routine 02/25/2024 4:49 AM PROFESSOR OF HISTORY EGFR STAT 02/24/2024 9:26 PM PROFESSOR OF HISTORY HEMOGLOBIN AND HEMATOCRIT STAT 02/24/2024 9:26 PM PROFESSOR OF HISTORY BASIC METABOLIC PANEL STAT 02/24/2024 9:26 PM PROFESSOR OF HISTORY POCT GLUCOSE DEVICE Routine 02/24/2024 9 :17 PM PROFESSOR OF HISTORY POCT GLUCOSE DEVICE Routine 02/24/2024 5 :15 PM PROFESSOR OF HISTORY POCT GLUCOSE DEVICE Routine 02/24/2024 12:22 PM PROFESSOR OF HISTORY POCT GLUCOSE DEVICE Routine 02/24/2024 9 :55 AM PROFESSOR OF HISTORY EGFR Timed 02/23/2024 11:18 PM PROFESSOR OF HISTORY BASIC METABOLIC PANEL Timed 02/23/2024 11:18 PM PROFESSOR OF HISTORY HEMOGLOBIN AND HEMATOCRIT Timed 02/23/2024 11:18 PM PROFESSOR OF HISTORY POCT GLUCOSE DEVICE Routine 02/23/2024 9 :15 PM PROFESSOR OF HISTORY XR SHOULDER RIGHT 2 OR MORE VIEWS IP Routine 02/23/2024 6:49 PM PROFESSOR OF HISTORY IL AN PROCEDURE PLACEHOLDER Routine 02/23/2024 5:45 PM PROFESSOR OF HISTORY IL AN PROCEDURE PLACEHOLDER Routine 02/23/2024 3:57 PM PROFESSOR OF HISTORY IL AN PROCEDURE PLACEHOLDER Routine 02/23/2024 3:37 PM PROFESSOR OF HISTORY IL AN ELECTIVE ENDOTRACHEAL AIRWAY Routine 02/23/2024 3:37 PM PROFESSOR OF HISTORY IL AN PROCEDURE PLACEHOLDER Routine 02/23/2024 2:49 PM PROFESSOR OF HISTORY IL AN PROCEDURE PLACEHOLDER Routine 02/23/2024 2:45 PM PROFESSOR OF HISTORY BW IP ANE LDA PERIPHERAL NERVE CATHETER Routine 02/23/2024 2:45 PM PROFESSOR OF HISTORY ARTHROPLASTY SHOULDER - REVERSE TOTAL 02/23/2024 2:44 PM PROFESSOR OF HISTORY Closed dislocation of right shoulder, initial encounter Fracture of humeral head, closed, right, with routine healing, subsequent encounter Special Needs Beach Chair with Trimano (patient is >350lbs), Tornier Perform with Fracture Stem Back-up, Ice Machine, Breg Sling Shot with Pillow B CHECK SAMPLE STAT 02/23/2024 12:52 PM PROFESSOR OF HISTORY EGFR Routine 02/15/2024 9:06 AM PROFESSOR OF HISTORY Closed dislocation of right shoulder, initial encounter Fracture of humeral head, closed, right, with routine healing, subsequent encounter TYPE AND SCREEN 14 DAY Routine 9:06 AM PROFESSOR OF HISTORY Preoperative testing VITAMIN D 25 HYDROXY Routine 02/15/2024 9:06 AM PROFESSOR OF HISTORY Closed dislocation of right shoulder, initial encounter Fracture of humeral head, closed, right, with routine healing, subsequent encounter COMPREHENSIVE METABOLIC PANEL Routine 02/15/2024 9:06 AM PROFESSOR OF HISTORY Closed dislocation of right shoulder, initial encounter Fracture of humeral head, closed, right, with routine healing, subsequent encounter CBC WITHOUT DIFFERENTIAL Routine 02/15/2024 9:06 AM PROFESSOR OF HISTORY Preoperative testing ECG 12-LEAD Routine 02/15/2024 8:38 AM PROFESSOR OF HISTORY Preoperative testing HM MAMMOGRAPHY Routine 01/16/2021 from Last 3 Months or Most Recently Relevant to Health Maintenance Results * Electrocardiogram Report (04/29/2024 3:06 PM PROFESSOR OF HISTORY) us Karie Rodríguez MD ECG ORDERABLES Nicole l Result * SCAN - LABS (04/29/2024 1:59 PM PROFESSOR OF HISTORY) [facility] Provider Final Res ult * POCT lipid panel (04/29/2024 12:42 PM PROFESSOR OF HISTORY) HDL, POC 60 mg/dL Triglycerides, POC 452 mg/dL LDL Cholesterol POC 60 mg/dL Chol/HDL Ratio, POC 52.6 Non-HDL Cholesterol, POC 143 mg/dL Cholesterol Total, POC 203 mg/dL Capillary blood 04/29/2024 1 2:42 PM PROFESSOR OF HISTORY us Karie Rodríguez MD POINT OF CARE TEST O RDERABLES Final Result * eGFR (04/08/2024 2:35 AM PROFESSOR OF HISTORY) eGFR >90 >=60 mL/min/1. 73 m2 Comment: [...] last reviewed 2021. Blood 04/08/2024 2:35 AM PROFESSOR OF HISTORY 04/08/2024 3:03 AM PROFESSOR OF HISTORY Florentino Jeronimo NP LAB BLOOD ORDERABLES Fin al Result Performing Organization Address [facility] Co de Phone Number [address] [address] * Magnesium (04/08/2024 2:35 AM PROFESSOR OF HISTORY) [facility] Magnesium 1.6 1.4 - 2.5 mg/dL Blood 04/08/2024 2:35 AM PROFESSOR OF HISTORY 04/08/2024 3:03 AM PROFESSOR OF HISTORY Chaitanya Robertson MD LAB BLOOD ORDERABLES Final Result Performing Organization Address [facility] Co de Phone Number [address] [address] * (ABNORMAL) Basic metabolic panel (04/08/2024 2:35 AM PROFESSOR OF HISTORY) Pathologist [facility] Sodium 137 135 - 145 mmol/L Potassium, pl 4.1 3.3 - 4.9 mmol/L [facility] Chloride 100 97 - 110 mmol/L [facility] CO2 30 22 - 32 mmol/L [facility] Anion gap 7 2 - 15 mmol/L [facility] BUN 11 6 - 25 mg/dL [facility] Creatinine 0.58(L) 0.60 - 1.10 mg/dL [facility] Glucose 83 70 - 199 mg/dL [facility] Comment: Interpretive Data Fasting glucose >/= [...] Calcium 8.6 8.5 - 10.3 mg/dL [facility] Blood 04/08/2024 2:35 AM PROFESSOR OF HISTORY 04/08/2024 3:03 AM PROFESSOR OF HISTORY Florentino Meena Jeronimo NP LAB BLOOD ORDERABLES Fin al Result [facility] [address] [facility] Department [place] [address] * eGFR (04/07/2024 2:59 AM PROFESSOR OF HISTORY) eGFR >90 >=60 mL/min/1. 73 m2 Comment: [...] last reviewed 2021. Blood 04/07/2024 2:59 AM PROFESSOR OF HISTORY 04/07/2024 3:37 AM PROFESSOR OF HISTORY [facility] LAB BLOOD ORDERABLES Fin al Result Performing Organization Address [facility] Co de Phone Number [facility] [address] [facility] [place] [address] * (ABNORMAL) Basic metabolic panel (04/07/2024 2:59 AM PROFESSOR OF HISTORY) Pathologist [facility] Sodium 137 135 - 145 mmol/L Potassium, pl 3.6 3.3 - 4.9 mmol/L [facility] Chloride 102 97 - 110 mmol/L [facility] CO2 28 22 - 32 mmol/L [facility] Anion gap 7 2 - 15 mmol/L [facility] BUN 10 6 - 25 mg/dL [facility] Creatinine 0.56(L) 0.60 - 1.10 mg/dL [facility] Glucose 93 70 - 199 mg/dL [facility] Comment: Interpretive Data Fasting glucose >/= [...] 2022. Calcium 8.5 8.5 - 10.3 mg/dL [facility] Blood 04/07/2024 2:5 9 AM PROFESSOR OF HISTORY 04/07/2024 3:37 AM PROFESSOR OF HISTORY [facility] LAB BLOOD ORDERABLES Fin al Result Performing Organization Address City/[facility] Co de Phone Number [address] [place] [address] * Sodium level (04/06/2024 11:34 AM PROFESSOR OF HISTORY) Sodium 138 135 - 145 mmol/L Blood 04/06/2024 11:3 4 AM PROFESSOR OF HISTORY 04/06/2024 11:53 AM PROFESSOR OF HISTORY Yadira Aurora Cancino MD LAB BLOOD ORDERABLES Nicole l Result Performing Organization Address City/[facility]/ZIP Co de Phone Number [address] [place] [address] * eGFR (04/06/2024 4:02 AM PROFESSOR OF HISTORY) [facility] eGFR >90 >=60 mL/min/1. 73 m2 [...] last reviewed 2021. Blood 04/06/2024 4:02 AM PROFESSOR OF HISTORY 04/06/2024 4:15 AM PROFESSOR OF HISTORY us Florentino Jeronimo NP LAB BLOOD ORDERABLES Fin al Result Performing Organization Address City/[facility]/ZIP Co de Phone Number KATE[address] [place] [address] * Differential, auto (04/06/2024 4:02 AM PROFESSOR OF HISTORY) Pathologist [facility] Neutrophil abs 2.8 1.5 - 6.5 K/cumm Imm gran abs 0.0 0.0 - 0.1 K/cumm [facility] Lymphocyte abs 1.8 0.8 - 3.3 K/cumm [facility] Monocyte abs 0.6 0.2 - 0.8 K/cumm [facility] Eosinophil abs 0.1 0.0 - 0.5 K/cumm [facility] Basophil abs 0.0 0.0 - 0.1 K/cumm [facility] Neutrophil pct 52.1 % [facility] Comment: Interpretive Data Percent cell count reference ranges are not reported, since discordance with absolute values may lead to misinterpretation of CBC data. Current Interpretive Data was last revised on 2017. Imm gran pct 0.6 % [facility] Comment: Interpretive Data Percent cell count reference ranges are not reported, since discordance with absolute values may lead to misinterpretation of CBC data. Current Interpretive Data was last revised on 2017. Lymphocyte pct 34.7 % [facility] Comment: Interpretive Data Percent cell count reference ranges are not reported, since discordance with absolute values may lead to misinterpretation of CBC data. Current Interpretive Data was last revised on 2017. Monocyte pct 10.9 % [facility] Comment: Interpretive Data Percent cell count reference ranges are not reported, since discordance with absolute values may lead to misinterpretation of CBC data. Current Interpretive Data was last revised on 2017. Eosinophil pct 1.1 % [facility] Comment: Interpretive Data Percent cell count reference ranges are not reported, since discordance with absolute values may lead to misinterpretation of CBC data. Current Interpretive Data was last revised on 2017. Basophil pct 0.6 % [facility] Comment: Interpretive Data Percent cell count reference ranges are not reported, since discordance with absolute values may lead to misinterpretation of CBC data. Current Interpretive Data was last revised on 2017. Blood 04/06/2024 4:02 AM PROFESSOR OF HISTORY 04/06/2024 4:15 AM PROFESSOR OF HISTORY us Savage Rutherford MD LAB BLOOD ORDERABLES Final R esult [facility] [address] Department [place] [address] * (ABNORMAL) CBC with auto differential (04/06/2024 4:02 AM PROFESSOR OF HISTORY) [facility] WBC 5.3 3.8 - 9.9 K/cumm Hgb 8.2(L) 11.9 - 15.5 g/dL [facility] Hct 26.6(L) 35.6 - 45.5 % [facility] Plt 283 150 - 400 K/cumm [facility] MPV 9.1 9.1 - 12.3 fL [facility] RBC 2.55(L) 3.90 - 5.20 M/cumm [facility] MCV 104.3(H) 81.3 - 96.4 fL [facility] MCH 32.2 27.1 - 33.3 pg [facility] MCHC 30.8(L) 32.3 - 35.7 g/dL [facility] RDW CV 15.0(H) 11.1 - 14.9 % [facility] RDW SD 57.8(H) 35.7 - 48.1 fL [facility] NRBC abs 0.00 0.00 - 0.01 K/cumm [facility] Blood 04/06/2024 4:02 AM PROFESSOR OF HISTORY 04/06/2024 4:15 AM PROFESSOR OF HISTORY us Savage Rutherford MD LAB BLOOD ORDERABLES Final R esult [address] Department [place] [address] * (ABNORMAL) Basic metabolic panel (04/06/2024 4:02 AM PROFESSOR OF HISTORY) [facility] Sodium 132(L) 135 - 145 mmol/L Potassium, pl 3.5 3.3 - 4.9 mmol/L [facility] Chloride 99 97 - 110 mmol/L [facility] CO2 26 22 - 32 mmol/L [facility] Anion gap 7 2 - 15 mmol/L [facility] BUN 9 6 - 25 mg/dL [facility] Creatinine 0.54(L) 0.60 - 1.10 mg/dL [facility] Glucose 100 70 - 199 mg/dL [facility] Comment: Interpretive Data Fasting glucose >/= [...] 10.3 mg/dL [facility] Blood 04/06/2024 4:02 AM PROFESSOR OF HISTORY 04/06/2024 4:15 AM PROFESSOR OF HISTORY us Florentino Meena Jeronimo [employer] LAB BLOOD ORDERABLES Fin al Result [facility] [address] [facility] Department [place] [address] * eGFR (04/05/2024 4:59 AM PROFESSOR OF HISTORY) eGFR >90 >=60 mL/min/1. 73 m2 Comment: [...] last reviewed 2021. Blood 04/05/2024 4:59 AM PROFESSOR OF HISTORY 04/05/2024 5:30 AM PROFESSOR OF HISTORY us Florentinosammie Jeronimo [employer] LAB BLOOD ORDERABLES Fin al Result [facility] [address] [facility] Department [place] [address] * Differential, auto (04/05/2024 4:59 AM PROFESSOR OF HISTORY) Pathologist [facility] Neutrophil abs 3.9 1.5 - 6.5 K/cumm Imm gran abs 0.0 0.0 - 0.1 K/cumm [facility] Lymphocyte abs 1.7 0.8 - 3.3 K/cumm [facility] Monocyte abs 0.6 0.2 - 0.8 K/cumm [facility] Eosinophil abs 0.1 0.0 - 0.5 K/cumm [facility] Basophil abs 0.0 0.0 - 0.1 K/cumm [facility] Neutrophil pct 61.8 % [facility] Comment: Interpretive Data Percent cell count reference ranges are not reported, since discordance with absolute values may lead to misinterpretation of CBC data. Current Interpretive Data was last revised on 2017. Imm gran pct 0.6 % [facility] Comment: Interpretive Data Percent cell count reference ranges are not reported, since discordance with absolute values may lead to misinterpretation of CBC data. Current Interpretive Data was last revised on 2017. Lymphocyte pct 26.9 % [facility] Comment: Interpretive Data Percent cell count reference ranges are not reported, since discordance with absolute values may lead to misinterpretation of CBC data. Current Interpretive Data was last revised on 2017. Monocyte pct 9.4 % [facility] Comment: Interpretive Data Percent cell count reference ranges are not reported, since discordance with absolute values may lead to misinterpretation of CBC data. Current Interpretive Data was last revised on 2017. Eosinophil pct 0.8 % [facility] Comment: Interpretive Data Percent cell count reference ranges are not reported, since discordance with absolute values may lead to misinterpretation of CBC data. Current Interpretive Data was last revised on 2017. Basophil pct 0.5 % [facility] Comment: Interpretive Data Percent cell count reference ranges are not reported, since discordance with absolute values may lead to misinterpretation of CBC data. Current Interpretive Data was last revised on 2017. Blood 04/05/2024 4:59 AM PROFESSOR OF HISTORY 04/05/2024 5:30 AM PROFESSOR OF HISTORY Savage Rutherford MD LAB BLOOD ORDERABLES Final R esult Performing Organization Address [facility] Co de Phone Number [place] [address] [place] [address] * (ABNORMAL) CBC with auto differential (04/05/2024 4:59 AM PROFESSOR OF HISTORY) WBC 6.3 3.8 - 9.9 K/cumm Hgb 8.3(L) 11.9 - 15.5 g/dL [facility] Hct 26.6(L) 35.6 - 45.5 % [facility] Plt 287 150 - 400 K/cumm [facility] MPV 9.1 9.1 - 12.3 fL [facility] RBC 2.53(L) 3.90 - 5.20 M/cumm [facility] MCV 105.1(H) 81.3 - 96.4 fL [facility] MCH 32.8 27.1 - 33.3 pg [facility] MCHC 31.2(L) 32.3 - 35.7 g/dL [facility] RDW CV 14.9 11.1 - 14.9 % [facility] RDW SD 57.0(H) 35.7 - 48.1 fL [facility] NRBC abs 0.00 0.00 - 0.01 K/cumm [facility] Blood 04/05/2024 4:59 AM PROFESSOR OF HISTORY 04/05/2024 5:30 AM PROFESSOR OF HISTORY us Savage Rutherford MD LAB BLOOD ORDERABLES Final R esult Performing Organization Address [facility] Co de Phone Number [place] [address] [place] [address] * (ABNORMAL) Basic metabolic panel (04/05/2024 4:59 AM PROFESSOR OF HISTORY) Sodium 137 135 - 145 mmol/L Potassium, pl 3.3 3.3 - 4.9 mmol/L [facility] Chloride 103 97 - 110 mmol/L [facility] CO2 25 22 - 32 mmol/L [facility] Anion gap 9 2 - 15 mmol/L [facility] BUN 10 6 - 25 mg/dL [facility] Creatinine 0.52(L) 0.60 - 1.10 mg/dL [facility] Glucose 118 70 - 199 mg/dL [facility] Comment: Interpretive Data Fasting glucose >/= [...] Calcium 8.7 8.5 - 10.3 mg/dL [facility] Blood 04/05/2024 4:59 AM PROFESSOR OF HISTORY 04/05/2024 5:30 AM PROFESSOR OF HISTORY [employer]orent[employer] LAB BLOOD ORDERABLES Fin al Result Performing Organization Address [facility] Co de Phone Number [address] [place] [address] * (ABNORMAL) Vancomycin level trough (04/04/2024 11:04 AM PROFESSOR OF HISTORY) Vancomycin trough 22.5(H) 10.0 - 20.0 mcg/mL Blood 04/04/2024 11:0 4 AM PROFESSOR OF HISTORY 04/04/2024 11:10 AM PROFESSOR OF HISTORY Florentino [employer] LAB BLOOD ORDERABLES Fin al Result Performing Organization Address [facility] Co de Phone Number [address] Department [place] [address] * eGFR (04/04/2024 2:48 AM PROFESSOR OF HISTORY) [facility] eGFR >90 >=60 mL/min/1. 73 m2 [...] last reviewed 2021. Blood 04/04/2024 2:48 AM PROFESSOR OF HISTORY 04/04/2024 3:26 AM PROFESSOR OF HISTORY us Savage Rutherford MD LAB BLOOD ORDERABLES Final R esult [facility] [address] [place] [address] * Differential, auto (04/04/2024 2:48 AM PROFESSOR OF HISTORY) [facility] Neutrophil abs 4.0 1.5 - 6.5 K/cumm Imm gran abs 0.1 0.0 - 0.1 K/cumm [facility] Lymphocyte abs 2.2 0.8 - 3.3 K/cumm [facility] Monocyte abs 0.8 0.2 - 0.8 K/cumm [facility] Eosinophil abs 0.1 0.0 - 0.5 K/cumm [facility] Basophil abs 0.0 0.0 - 0.1 K/cumm [facility] Neutrophil pct 56.5 % [facility] Comment: Interpretive Data Percent cell count reference ranges are not reported, since discordance with absolute values may lead to misinterpretation of CBC data. Current Interpretive Data was last revised on 2017. Imm gran pct 1.0 % [facility] Comment: Interpretive Data Percent cell count reference ranges are not reported, since discordance with absolute values may lead to misinterpretation of CBC data. Current Interpretive Data was last revised on 2017. Lymphocyte pct 30.7 % [facility] Comment: Interpretive Data Percent cell count reference ranges are not reported, since discordance with absolute values may lead to misinterpretation of CBC data. Current Interpretive Data was last revised on 2017. Monocyte pct 10.6 % [place] Comment: Interpretive Data Percent cell count reference ranges are not reported, since discordance with absolute values may lead to misinterpretation of CBC data. Current Interpretive Data was last revised on 2017. Eosinophil pct 0.8 % [facility] Comment: Interpretive Data Percent cell count reference ranges are not reported, since discordance with absolute values may lead to misinterpretation of CBC data. Current Interpretive Data was last revised on 2017. Basophil pct 0.4 % [facility] Comment: Interpretive Data Percent cell count reference ranges are not reported, since discordance with absolute values may lead to misinterpretation of CBC data. Current Interpretive Data was last revised on 2017. Blood 04/04/2024 2:48 AM PROFESSOR OF HISTORY 04/04/2024 3:26 AM PROFESSOR OF HISTORY Chaitanya Robertson MD LAB BLOOD ORDERABLES Final Result [place] [address] [facility] Department of Laboratories [place], [place] [id number] * (ABNORMAL) CBC with auto differential (04/04/2024 2:48 AM PROFESSOR OF HISTORY) Pathologist [facility] WBC 7.1 3.8 - 9.9 K/cumm Hgb 8.0(L) 11.9 - 15.5 g/dL [facility] Hct 25.4(L) 35.6 - 45.5 % [facility] Plt 287 150 - 400 K/cumm [facility] MPV 9.2 9.1 - 12.3 fL [facility] RBC 2.44(L) 3.90 - 5.20 M/cumm [facility] MCV 104.1(H) 81.3 - 96.4 fL [facility] MCH 32.8 27.1 - 33.3 pg [facility] MCHC 31.5(L) 32.3 - 35.7 g/dL [facility] RDW CV 14.7 11.1 - 14.9 % [facility] RDW SD 55.8(H) 35.7 - 48.1 fL [facility] NRBC abs 0.00 0.00 - 0.01 K/cumm [facility] Blood 04/04/2024 2:48 AM PROFESSOR OF HISTORY 04/04/2024 3:26 AM PROFESSOR OF HISTORY us Chaitanya Robertson MD LAB BLOOD ORDERABLES Final Result Performing Organization Address City/State/[facility] Co de Phone Number [facility] [address] [facility] Department [place] [address] * (ABNORMAL) Comprehensive metabolic panel (04/04/2024 2:48 AM PROFESSOR OF HISTORY) Sodium 137 135 - 145 mmol/L Potassium, pl 3.4 3.3 - 4.9 mmol/L [facility] Chloride 104 97 - 110 mmol/L [facility] CO2 23 22 - 32 mmol/L [facility] Anion gap 10 2 - 15 mmol/L [facility] BUN 15 6 - 25 mg/dL [facility] Creatinine 0.61 0.60 - 1.10 mg/dL [facility] Glucose 113 70 - 199 mg/dL [facility] Comment: Interpretive Data Fasting glucose >/= [...] Calcium 8.4(L) 8.5 - 10.3 mg/dL [facility] Bilirubin, total 0.5 0.1 - 1.2 mg/dL [facility] Protein, pl 5.9(L) 6.5 - 8.5 g/dL [facility] Albumin 2.5(L) 3.5 - 5.0 g/dL [facility] Alk phos 241(H) 40 - 130 Units/L [facility] ALT 12 7 - 45 Units/L [facility] AST 23 10 - 45 Units/L [facility] Blood 04/04/2024 2:48 AM PROFESSOR OF HISTORY 04/04/2024 3:26 AM PROFESSOR OF HISTORY us Savage Rutherford MD LAB BLOOD ORDERABLES Final R esult Performing Organization Address [facility] Co de Phone Number [address] [place] [address] * POCT glucose (04/03/2024 4:41 PM PROFESSOR OF HISTORY) [facility] Glucose, POC 154 70 - 199 mg/dL Glucose comment 1 Use This Result [facility] Glucose comment 2 RN/MD Notified [facility] Blood 04/03/2024 4:41 PM PROFESSOR OF HISTORY 04/03/2024 4:41 PM PROFESSOR OF HISTORY us Chaitanya Robertson MD LAB POCT ORDERABLES - DEVIC E Final Result Performing Organization Address [facility] de Phone Number [address] [place] [address] * US Vein Duplex Lower Extremity Bilateral Complete (04/03/2024 10:00 AM PROFESSOR OF HISTORY) Anatomical Region Laterality Modality Vascular Bilateral Ultrasound 04/03/2024 Narrative 04/04/2024 11:20 AM PROFESSOR OF HISTORY [facility] Job ID: [id number] [facility] Document ID: [id number] Dictated date/time: [id number] LOWER EXTREMITY VENOUS DUPLEX REASON FOR EXAM [...] right lower extremity. Job ID/Internal Job ID: [id number] Bing French MD IMG US PROCEDURES Nicole l Result * Lactate (04/03/2024 7:19 AM PROFESSOR OF HISTORY) Lactate 1.2 0.7 - 2.0 mmol/L Blood 04/03/2024 7:19 AM PROFESSOR OF HISTORY 04/03/2024 7:26 AM PROFESSOR OF HISTORY us Florentino Meena Jeronimo NP LAB BLOOD ORDERABLES Fin al Result [place] [address] [facility] Department [place] [address] * eGFR (04/03/2024 7:19 AM PROFESSOR OF HISTORY) eGFR >90 >=60 mL/min/1. 73 m2 Comment: [...] last reviewed 2021. Blood 04/03/2024 7:19 AM PROFESSOR OF HISTORY 04/03/2024 7:23 AM PROFESSOR OF HISTORY us Florentino Meena Jeronimo [employer] LAB BLOOD ORDERABLES Fin al Result [facility] [address] [facility] Department [place] [address] * Differential, auto (04/03/2024 7:19 AM PROFESSOR OF HISTORY) Neutrophil abs 5.1 1.5 - 6.5 K/cumm Imm gran abs 0.1 0.0 - 0.1 K/cumm [facility] Lymphocyte abs 1.8 0.8 - 3.3 K/cumm [facility] Monocyte abs 0.8 0.2 - 0.8 K/cumm [facility] Eosinophil abs 0.1 0.0 - 0.5 K/cumm [facility] Basophil abs 0.0 0.0 - 0.1 K/cumm [facility] Neutrophil pct 64.7 % [facility] Comment: Interpretive Data Percent cell count reference ranges are not reported, since discordance with absolute values may lead to misinterpretation of CBC data. Current Interpretive Data was last revised on 2017. Imm gran pct 1.1 % [facility] Comment: Interpretive Data Percent cell count reference ranges are not reported, since discordance with absolute values may lead to misinterpretation of CBC data. Current Interpretive Data was last revised on 2017. Lymphocyte pct 22.4 % [facility] Comment: Interpretive Data Percent cell count reference ranges are not reported, since discordance with absolute values may lead to misinterpretation of CBC data. Current Interpretive Data was last revised on 2017. Monocyte pct 10.5 % [facility] Comment: Interpretive Data Percent cell count reference ranges are not reported, since discordance with absolute values may lead to misinterpretation of CBC data. Current Interpretive Data was last revised on 2017. Eosinophil pct 0.8 % [facility] Comment: Interpretive Data Percent cell count reference ranges are not reported, since discordance with absolute values may lead to misinterpretation of CBC data. Current Interpretive Data was last revised on 2017. Basophil pct 0.5 % [facility] Comment: Interpretive Data Percent cell count reference ranges are not reported, since discordance with absolute values may lead to misinterpretation of CBC data. Current Interpretive Data was last revised on 2017. Blood 04/03/2024 7:19 AM PROFESSOR OF HISTORY 04/03/2024 7:23 AM PROFESSOR OF HISTORY us Florentino Meena Jeronimo NP LAB BLOOD ORDERABLES Fin al Result [place] [address] [facility] Department [place] [address] * (ABNORMAL) Pro B-type natriuretic peptide (04/03/2024 7:19 AM PROFESSOR OF HISTORY) NT-proBNP 1,491(H) <=300 pg/mL Comment: Interpretive Comments: [...] Revised Date: 2017. Blood 04/03/2024 7:19 AM PROFESSOR OF HISTORY 04/03/2024 7:23 AM PROFESSOR OF HISTORY Florentino Tabernero Rufin [employer] LAB BLOOD ORDERABLES Fin al Result Performing Organization Address City/[facility]/ZIP Co de Phone Number [address] [place] [address] * (ABNORMAL) Thyroid Function Harrington (04/03/2024 7:19 AM PROFESSOR OF HISTORY) TSH 4.62(H) 0.30 - 4.20 mcIUnit/mL Blood 04/03/2024 7:19 AM PROFESSOR OF HISTORY 04/03/2024 7:23 AM PROFESSOR OF HISTORY [facility] Ivald[facility]o [facility] [employer] LAB BLOOD ORDERABLES Fin al Result Performing Organization Address [facility] Co de Phone Number [address] [place] [address] * (ABNORMAL) Iron profile w/ IBC (04/03/2024 7:19 AM PROFESSOR OF HISTORY) Iron 36 35 - 145 mcg/dL TIBC 179(L) 250 - 400 mcg/dL [facility] Transferrin saturation 20 20 - 50 % [facility] Blood 04/03/2024 7:19 AM PROFESSOR OF HISTORY 04/03/2024 7:23 AM PROFESSOR OF HISTORY Florentino Tabernero Rufin [employer] LAB BLOOD ORDERABLES Fin al Result Performing Organization Address [facility] Co de Phone Number [address] [place] [address] * (ABNORMAL) CBC with auto differential (04/03/2024 7:19 AM PROFESSOR OF HISTORY) [facility] WBC 7.9 3.8 - 9.9 K/cumm Hgb 8.4(L) 11.9 - 15.5 g/dL [facility] Hct 26.5(L) 35.6 - 45.5 % [facility] Plt 281 150 - 400 K/cumm [facility] MPV 9.4 9.1 - 12.3 fL [facility] RBC 2.53(L) 3.90 - 5.20 M/cumm [facility] MCV 104.7(H) 81.3 - 96.4 fL [facility] MCH 33.2 27.1 - 33.3 pg [facility] MCHC 31.7(L) 32.3 - 35.7 g/dL [facility] RDW CV 14.5 11.1 - 14.9 % [facility] RDW SD 55.3(H) 35.7 - 48.1 fL [facility] NRBC abs 0.00 0.00 - 0.01 K/cumm [facility] Blood 04/03/2024 7:19 AM PROFESSOR OF HISTORY 04/03/2024 7:23 AM PROFESSOR OF HISTORY [employer] LAB BLOOD ORDERABLES Fin al Result Performing Organization Address City/[facility] Co de Phone Number [address] [place] [address] * (ABNORMAL) Erythrocyte sedimentation rate (04/03/2024 7:19 AM PROFESSOR OF HISTORY) [facility] Erythrocyte sedimentation rate 60(H) 1 - 30 mm/hr Comment:Testing performed by : [facility], [address] [place] [address]., [id number] Blood 04/03/2024 7:19 AM PROFESSOR OF HISTORY 04/03/2024 7:23 AM PROFESSOR OF HISTORY [employer] LAB BLOOD ORDERABLES Fin al Result [facility] [address] [place] [id number] * (ABNORMAL) CRP (acute phase) (04/03/2024 7:19 AM PROFESSOR OF HISTORY) [facility] CRP 203.0(H) <=10.0 mg/L Blood 04/03/2024 7:19 AM PROFESSOR OF HISTORY 04/03/2024 7:23 AM PROFESSOR OF HISTORY [facility] [employer] LAB BLOOD ORDERABLES Fin al Result Performing Organization Address [facility] Co de Phone Number [address] [address] * T4, free (04/03/2024 7:19 AM PROFESSOR OF HISTORY) [facility] Free T4 0.92 0.90 - 1.70 ng/dL Blood 04/03/2024 7:19 AM PROFESSOR OF HISTORY 04/03/2024 7:23 AM PROFESSOR OF HISTORY Narrative [facility] 04/03/2024 9:03 AM PROFESSOR OF HISTORY This test was reflexed from a TSH result. [facility]valdiSpliceDec[facility] LAB BLOOD ORDERABLES Fin al Result Performing Organization Address [facility] Co de Phone Number [address] [address] * Phosphorus (04/03/2024 7:19 AM PROFESSOR OF HISTORY) [facility] Phosphorus, pl 4.3 2.3 - 4.5 mg/dL Blood 04/03/2024 7:19 AM PROFESSOR OF HISTORY 04/03/2024 7:23 AM PROFESSOR OF HISTORY [facility] [employer] LAB BLOOD ORDERABLES Fin al Result Performing Organization Address [facility] Co de Phone Number [address] [address] * Magnesium (04/03/2024 7:19 AM PROFESSOR OF HISTORY) [facility] Magnesium 1.4 1.4 - 2.5 mg/dL Blood 04/03/2024 7:19 AM PROFESSOR OF HISTORY 04/03/2024 7:23 AM PROFESSOR OF HISTORY [facility] LAB BLOOD ORDERABLES Fin al Result Performing Organization Address [facility] Co de Phone Number [address] [place] [address] * (ABNORMAL) Hemoglobin A1c (04/03/2024 7:19 AM PROFESSOR OF HISTORY) [facility] Hgb A1C 5.9(H) 4.0 - 5.6 % Estimated Average Glucose 123 mg/dL [place] Comment: The ADA recommends reporting an estimated Average Glucose (eAG) with all Hemoglobin A1c results using the equation derived from a study of 507 normal and diabetic adults. Minority populations were underrepresented and children were not included. (Diabetes Care 31:9834-4846, 2008). The eAG is not equivalent to a fasting glucose. Blood 04/03/2024 7:19 AM PROFESSOR OF HISTORY 04/03/2024 7:23 AM PROFESSOR OF HISTORY [facility] LAB BLOOD ORDERABLES Fin al Result Performing Organization Address [facility] Co de Phone Number [address] [place] [address] * Folate (04/03/2024 7:19 AM PROFESSOR OF HISTORY) [facility] Folic acid >20.0 >=5.0 ng/mL Blood 04/03/2024 7:19 AM PROFESSOR OF HISTORY 04/03/2024 7:23 AM PROFESSOR OF HISTORY [facility] [employer] LAB BLOOD ORDERABLES Fin al Result Performing Organization Address [facility] Co de Phone Number [address] [place] [address] * (ABNORMAL) Ferritin (04/03/2024 7:19 AM PROFESSOR OF HISTORY) Pathologist [facility] Ferritin 275(H) 15 - 150 ng/mL Blood 04/03/2024 7:19 AM PROFESSOR OF HISTORY 04/03/2024 7:23 AM PROFESSOR OF HISTORY Florentino [facility]nero [facility] [employer] LAB BLOOD ORDERABLES Fin al Result Performing Organization Address [facility] Co de Phone Number [address] [place] [address] * Vitamin B12 (04/03/2024 7:19 AM PROFESSOR OF HISTORY) Pathologist [facility] Vitamin B12 850 230 - 1,250 pg/mL Blood 04/03/2024 7:19 AM PROFESSOR OF HISTORY 04/03/2024 7:23 AM PROFESSOR OF HISTORY [facility] [employer] LAB BLOOD ORDERABLES Fin al Result Performing Organization Address [facility] de Phone Number [address] [address] * (ABNORMAL) Lipid panel (04/03/2024 7:19 AM PROFESSOR OF HISTORY) Pathologist [facility] Cholesterol 121 30 - 199 mg/dL Comment: [...] on 2023. Non-HDL Cholesterol 83 mg/dL [place] Comment: Interpretive Data Ages < [...] last revised on 2017. Chol/HDL ratio 3 [facility] Blood 04/03/2024 7:19 AM PROFESSOR OF HISTORY 04/03/2024 7:23 AM PROFESSOR OF HISTORY us Florentino Meena Jeronimo [employer] LAB BLOOD ORDERABLES Fin al Result [facility] [address] [facility] Department [place] [address] * Basic metabolic panel (04/03/2024 7:19 AM PROFESSOR OF HISTORY) Sodium 136 135 - 145 mmol/L Potassium, pl 3.6 3.3 - 4.9 mmol/L [facility] Chloride 104 97 - 110 mmol/L [facility] CO2 22 22 - 32 mmol/L [facility] Anion gap 10 2 - 15 mmol/L [facility] BUN 20 6 - 25 mg/dL [facility] Creatinine 0.65 0.60 - 1.10 mg/dL [facility] Glucose 102 70 - 199 mg/dL [facility] Comment: Interpretive Data Fasting glucose >/= [...] Calcium 8.7 8.5 - 10.3 mg/dL [facility] Blood 04/03/2024 7:19 AM PROFESSOR OF HISTORY 04/03/2024 7:23 AM PROFESSOR OF HISTORY us Florentino Jeronimo NP LAB BLOOD ORDERABLES Fin al Result Performing Organization Address City/[facility]/ZIP Co de Phone Number [place] [facility] [place] [address] * POCT glucose (04/03/2024 12:14 AM PROFESSOR OF HISTORY) Glucose, POC 87 70 - 199 mg/dL Blood 04/03/2024 12:1 4 AM PROFESSOR OF HISTORY 04/03/2024 12:14 AM PROFESSOR OF HISTORY us Ky Andino MD LAB POCT ORDERABLES - DEVICE Final Result Performing Organization Address [facility] Co de Phone Number [place] [facility] [place] [address] * CT Entire Lower Extremity Left W WO Contrast (04/03/2024 12:08 AM PROFESSOR OF HISTORY) Anatomical Region Laterality Modality Lower Extremities Left Computed Tomog sheela 04/03/2024 12:1 4 AM PROFESSOR OF HISTORY Narrative 04/03/2024 12:19 AM PROFESSOR OF HISTORY EXAM DESCRIPTION: CT ENTIRE LOWER EXTREMITY LEFT [...] by John Bright M.D. T: Report ID: [id number] Reading Location: [id number] Procedure Note John Bright MD - 04/03/2024 [...] by John Bright M.D. T: Report ID: [id number] Reading Location: [place] [address] Bing French MD [facility] PROCEDURES Nicole l Result * Influenza A/B, RSV, and COVID-19 PCR Nasopharyngeal (04/02/2024 9:57 PM PROFESSOR OF HISTORY) COVID-19 RNA Negative Negative Influenza A RNA Negative Negative [place] EDUARDO Influenza B RNA Negative Negative [place] EDUARDO RSV RNA Negative Negative [place] EDUARDO Comment: Interpretive data: Testing performed by [facility]. This test is performed using the [employer] Xpert Xpress CoV-2/Flu/RSV plus assay. This is a multiplex, real-time reverse transcriptase PCR assay intended for the qualitative detection of nucleic acid from SARS-CoV-2, influenza A, influenza B, and respiratory syncytial virus. This assay has been cleared by the [place] Food and Drug administration. The performance characteristics have been verified by the [facility]. Results must be considered in the clinical context, and a negative result does not rule out infection. Interpretive Data last revised 2023 Nasopharyngeal 04/02/2024 9: 57 PM PROFESSOR OF HISTORY 04/02/2024 10:05 PM PROFESSOR OF HISTORY Narrative [place] - 04/02/2024 10:49 PM PROFESSOR OF HISTORY Is the Patient experiencing symptoms consistent with COVID?->Yes us Bing French MD LAB MICROBIOLOGY - GEN ERAL ORDERABLES Final Result [place] [address] [facility] Department [place] [address] * (ABNORMAL) Aerobic and anaerobic culture and gram stain Wound Thigh, left (04/02/2024 9:57 PM PROFESSOR OF HISTORY) Direct Specimen Exam Stain: Moderate polymorphonuclear leukocytes seen. Moderate Gram Negative Bacilli Comment:Testing performed by : [facility], [address] [place]., [address] Report Final Report: Few Mixed aerobic and anaerobic microorganisms Includes the following: Few Pseudomonas aeruginosa Few Pseudomonas aeruginosa #2 (.) [place] Comment:Testing performed by : [facility], [address] [place] [address]., [address] Organism PSEUDOMONAS AERUGINOSA [facility] Organism PSEUDOMONAS AERUGINOSA [facility] Organism MIXED AEROBIC AND ANAEROBIC MICROORGANISMS [facility] Wound (Thigh, left) 04/02/2024 9:57 PM PROFESSOR OF HISTORY 04/02/2024 11:37 PM PROFESSOR OF HISTORY Narrative [place] - 04/10/2024 10:45 AM PROFESSOR OF HISTORY Specimen received on an ESwab. Testing performed by [facility] Laboratory ([phone]) Specimens submitted from normally sterile body sites [...] - GEN ERAL ORDERABLES Final Result [place] [address] [facility] Department [place] [address] * Blood culture Blood Peripheral (04/02/2024 9:57 PM PROFESSOR OF HISTORY) Report Final Report: No growth Comment:Testing performed by : [facility], [address] [place]., [address] Blood (Peripheral) 04/02/2024 9:57 PM PROFESSOR OF HISTORY 04/02/2024 11:46 PM PROFESSOR OF HISTORY Narrative [place] - 04/07/2024 7:00 AM PROFESSOR OF HISTORY From a different site than #1. Draw [...] performance characteristics have been verified by the [facility]. For questions about this culture, contact the Microbiology Laboratory at [phone]. Interpretive data was last revised on 23. us Bing French MD LAB MICROBIOLOGY - GEN ERAL ORDERABLES Final Result [place] EDUARDO [address] [facility] Department [place] [address] * Blood culture Blood Peripheral (04/02/2024 9:57 PM PROFESSOR OF HISTORY) Report Final Report: No growth Comment:Testing performed by : [facility], [address] [facility] [place]., [address] Blood (Peripheral) 04/02/2024 9:57 PM PROFESSOR OF HISTORY 04/02/2024 11:46 PM PROFESSOR OF HISTORY Chantell SALVADOR - 04/07/2024 7:00 AM PROFESSOR OF HISTORY Draw Blood cultures before administration of Antibiotics [...] performance characteristics have been verified by the [facility]. For questions about this culture, contact the Microbiology Laboratory at [phone]. Interpretive data was last revised on 23. Bing French MD LAB MICROBIOLOGY - GEN ERAL ORDERABLES Final Result Performing Organization Address [facility] Co de Phone Number [place] [address] [place] [address] * (ABNORMAL) D-dimer, quantitative (04/02/2024 9:57 PM PROFESSOR OF HISTORY) D-Dimer 2,040(H) <=499 ng/mL FEU Comment: Interpretive [...] 68, VTE cut-off 680 ng/ml FEU. References; Schoutlitzy HT et al. Brit Med J. 2013;346:f2492. Chas et al. Annals Int Med. 2015;163:701-11. Current interpretive data was last revised on 2019. Blood 04/02/2024 9:57 PM PROFESSOR OF HISTORY 04/02/2024 9:59 PM PROFESSOR OF HISTORY Bing French MD LAB BLOOD ORDERABLES F inal Result Performing Organization Address [facility] Co de Phone Number [place] [address] [place] [address] * XR Chest 1 Vw Portable (04/02/2024 9:35 PM PROFESSOR OF HISTORY) Anatomical Region Laterality Modality Body, Chest N/A Computed Radiogr aphy 04/02/2024 9:44 PM PROFESSOR OF HISTORY Narrative 04/02/2024 9:46 PM PROFESSOR OF HISTORY EXAM DESCRIPTION: XR CHEST 1 VIEW REASON [...] John Bright M.D. KH T: Report ID: [id number] Reading Location: [id number] Procedure Note John Bright MD - 04/02/2024 [...] John Bright M.D. KH T: Report ID: [id number] Reading Location: [id number] us Bing French MD IMG XR PROCEDURES Nicole l Result * XR Tibia Fibula Left 2 views (04/02/2024 5:10 PM PROFESSOR OF HISTORY) Anatomical Region Laterality Modality Lower Extremities, Lower Leg Left Com puted Radiography 04/02/2024 5:29 PM PROFESSOR OF HISTORY Narrative 04/02/2024 5:33 PM PROFESSOR OF HISTORY EXAM DESCRIPTION: XR TIBIA FIBULA LEFT 2 [...] by John Bright M.D. T: Report ID: [id number] Reading Location: [id number] Procedure Note John Bright MD - 04/02/2024 [...] by John Bright M.D. T: Report ID: [id number] Reading Location: [place] [address] Bing French MD IMG XR PROCEDURES Nicole l Result * XR Knee Left 1 or 2 Views (04/02/2024 5:10 PM PROFESSOR OF HISTORY) Anatomical Region Laterality Modality Lower Extremities, Knee Left Computed Radiography 04/02/2024 5:33 PM PROFESSOR OF HISTORY Narrative 04/02/2024 5:35 PM PROFESSOR OF HISTORY EXAM DESCRIPTION: XR KNEE LEFT 1 OR [...] signed by John POLANCO T: Report ID: [id number] Reading Location: [id number] Procedure Note John Bright MD - 04/02/2024 EXAM DESCRIPTION: XR KNEE LEFT 1 OR 2 VIEWS REASON FOR STUDY: infection Pt. To ED with c/o wound to left leg. Reports home health comes to [place] to help dress wound. Pt. Taking oral [...] John Bright M.D. KH T: Report ID: [id number] Reading Location: [id number] us Nikhil Fraire DO IMG XR PROCEDURES Nicole l Result * Sepsis Lactate w/ Reflex (04/02/2024 4:07 PM PROFESSOR OF HISTORY) Sepsis Lactate 2.0 0.7 - 2.0 mmol/L Blood 04/02/2024 4:07 PM PROFESSOR OF HISTORY 04/02/2024 4:10 PM PROFESSOR OF HISTORY us Bing French MD LAB BLOOD ORDERABLES F inal Result [facility] [address] Department [place] [address] * eGFR (04/02/2024 4:07 PM PROFESSOR OF HISTORY) [facility] eGFR 83 >=60 mL/min/1. 73 m2 Comment: [...] last reviewed 2021. Blood 04/02/2024 4:07 PM PROFESSOR OF HISTORY 04/02/2024 4:11 PM PROFESSOR OF HISTORY Bing French MD LAB BLOOD ORDERABLES F inal Result [place] [address] Department [place] [address] * (ABNORMAL) Differential, auto (04/02/2024 4:07 PM PROFESSOR OF HISTORY) [facility] Neutrophil abs 8.7(H) 1.5 - 6.5 K/cumm Imm gran abs 0.2(H) 0.0 - 0.1 K/cumm [facility] Lymphocyte abs 2.3 0.8 - 3.3 K/cumm [facility] Monocyte abs 0.9(H) 0.2 - 0.8 K/cumm [facility] Eosinophil abs 0.0 0.0 - 0.5 K/cumm [facility] Basophil abs 0.0 0.0 - 0.1 K/cumm [facility] Neutrophil pct 72.1 % [facility] Comment: Interpretive Data Percent cell count reference ranges are not reported, since discordance with absolute values may lead to misinterpretation of CBC data. Current Interpretive Data was last revised on 2017. Imm gran pct 1.4 % [facility] Comment: Interpretive Data Percent cell count reference ranges are not reported, since discordance with absolute values may lead to misinterpretation of CBC data. Current Interpretive Data was last revised on 2017. Lymphocyte pct 18.7 % [facility] Comment: Interpretive Data Percent cell count reference ranges are not reported, since discordance with absolute values may lead to misinterpretation of CBC data. Current Interpretive Data was last revised on 2017. Monocyte pct 7.2 % [facility] Comment: Interpretive Data Percent cell count reference ranges are not reported, since discordance with absolute values may lead to misinterpretation of CBC data. Current Interpretive Data was last revised on 2017. Eosinophil pct 0.3 % [facility] Comment: Interpretive Data Percent cell count reference ranges are not reported, since discordance with absolute values may lead to misinterpretation of CBC data. Current Interpretive Data was last revised on 2017. Basophil pct 0.3 % [facility] Comment: Interpretive Data Percent cell count reference ranges are not reported, since discordance with absolute values may lead to misinterpretation of CBC data. Current Interpretive Data was last revised on 2017. Blood 04/02/2024 4:07 PM PROFESSOR OF HISTORY 04/02/2024 4:11 PM PROFESSOR OF HISTORY us Bing French MD LAB BLOOD ORDERABLES F inal Result [facility] [address] [facility] Department [place] [address] * (ABNORMAL) CBC with auto differential (04/02/2024 4:07 PM PROFESSOR OF HISTORY) WBC 12.1(H) 3.8 - 9.9 K/cumm Hgb 9.9(L) 11.9 - 15.5 g/dL [facility] Hct 31.5(L) 35.6 - 45.5 % [facility] Plt 348 150 - 400 K/cumm [facility] MPV 9.2 9.1 - 12.3 fL [facility] RBC 3.03(L) 3.90 - 5.20 M/cumm [facility] MCV 104.0(H) 81.3 - 96.4 fL [facility] MCH 32.7 27.1 - 33.3 pg [facility] MCHC 31.4(L) 32.3 - 35.7 g/dL [facility] RDW CV 14.6 11.1 - 14.9 % [facility] RDW SD 55.5(H) 35.7 - 48.1 fL [facility] NRBC abs 0.00 0.00 - 0.01 K/cumm [facility] Blood 04/02/2024 4:07 PM PROFESSOR OF HISTORY 04/02/2024 4:11 PM PROFESSOR OF HISTORY Bing French MD LAB BLOOD ORDERABLES F inal Result [facility] [address] [facility] Department [place] [address] * (ABNORMAL) Comprehensive metabolic panel (04/02/2024 4:07 PM PROFESSOR OF HISTORY) Sodium 136 135 - 145 mmol/L Potassium, pl 3.9 3.3 - 4.9 mmol/L [facility] Chloride 101 97 - 110 mmol/L [facility] CO2 22 22 - 32 mmol/L [facility] Anion gap 13 2 - 15 mmol/L [facility] BUN 25 6 - 25 mg/dL [facility] Creatinine 0.83 0.60 - 1.10 mg/dL [facility] Glucose 127 70 - 199 mg/dL [facility] Comment: Interpretive Data Fasting glucose >/= [...] 2022. Calcium 9.4 8.5 - 10.3 mg/dL [facility] Bilirubin, total 0.4 0.1 - 1.2 mg/dL [facility] Protein, pl 7.7 6.5 - 8.5 g/dL [facility] Albumin 3.2(L) 3.5 - 5.0 g/dL [facility] Alk phos 342(H) 40 - 130 Units/L [facility] ALT 20 7 - 45 Units/L [facility] AST 29 10 - 45 Units/L [facility] Blood 04/02/2024 4:07 PM PROFESSOR OF HISTORY 04/02/2024 4:11 PM PROFESSOR OF HISTORY us Bing French MD LAB BLOOD ORDERABLES F inal Result [facility] [address] [facility] Department [place] [address] * XR Shoulder Right 2 or More Views (04/01/2024 9:46 AM PROFESSOR OF HISTORY) Anatomical Region Laterality Modality Upper Extremities, Shoulder Right Comp uted Radiography 04/01/2024 10:1 1 AM PROFESSOR OF HISTORY Impressions 04/01/2024 1:03 PM PROFESSOR OF HISTORY 1. 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 Dictated by: Homero Dwyer MD PHD The radiology attending physician has personally reviewed this study, and had reviewed and/or edited this written report and agrees with it. Electronically signed by: Mychal Griffin M.D. Narrative 04/01/2024 1:03 PM PROFESSOR OF HISTORY EXAMINATION: XR SHOULDER RIGHT 2 OR MORE [...] agrees with it. Electronically signed by: Mychal rGiffin M.D. us Krysten Cohn MD IMG XR PROCEDURES Fin al Result * Glucose, random (Outreach) (03/27/2024 2:09 PM PROFESSOR OF HISTORY) Glucose 141 70 - 199 mg/dL Comment: [...] last revised 2022. Blood 03/27/2024 2:09 PM PROFESSOR OF HISTORY 03/27/2024 7:01 PM PROFESSOR OF HISTORY us Ericka Glass MD LAB BLOOD ORDERABLES Final Result [facility] Department [place] [address] * eGFR (03/27/2024 2:09 PM PROFESSOR OF HISTORY) eGFR 83 >=60 mL/min/1. 73 m2 Comment: [...] last reviewed 2021. Blood 03/27/2024 2:09 PM PROFESSOR OF HISTORY 03/27/2024 7:14 PM PROFESSOR OF HISTORY Ericka Glass MD LAB BLOOD ORDERABLES Final Result [facility] [address] [facility] Department [place] [address] * (ABNORMAL) Differential, auto (03/27/2024 2:09 PM PROFESSOR OF HISTORY) Neutrophil abs 13.1(H) 1.5 - 6.5 K/cumm Imm gran abs 0.3(H) 0.0 - 0.1 K/cumm [facility] Lymphocyte abs 1.5 0.8 - 3.3 K/cumm [facility] Monocyte abs 0.9(H) 0.2 - 0.8 K/cumm [facility] Eosinophil abs 0.0 0.0 - 0.5 K/cumm [facility] Basophil abs 0.0 0.0 - 0.1 K/cumm [facility] Neutrophil pct 82.9 % [facility] Comment: Interpretive Data Percent cell count reference ranges are not reported, since discordance with absolute values may lead to misinterpretation of CBC data. Current Interpretive Data was last revised on 2017. Imm gran pct 1.6 % [facility] Comment: Interpretive Data Percent cell count reference ranges are not reported, since discordance with absolute values may lead to misinterpretation of CBC data. Current Interpretive Data was last revised on 2017. Lymphocyte pct 9.3 % [facility] Comment: Interpretive Data Percent cell count reference ranges are not reported, since discordance with absolute values may lead to misinterpretation of CBC data. Current Interpretive Data was last revised on 2017. Monocyte pct 5.8 % [facility] Comment: Interpretive Data Percent cell count reference ranges are not reported, since discordance with absolute values may lead to misinterpretation of CBC data. Current Interpretive Data was last revised on 2017. Eosinophil pct 0.2 % [facility] Comment: Interpretive Data Percent cell count reference ranges are not reported, since discordance with absolute values may lead to misinterpretation of CBC data. Current Interpretive Data was last revised on 2017. Basophil pct 0.2 % [facility] Comment: Interpretive Data Percent cell count reference ranges are not reported, since discordance with absolute values may lead to misinterpretation of CBC data. Current Interpretive Data was last revised on 2017. Blood 03/27/2024 2:09 PM PROFESSOR OF HISTORY 03/27/2024 7:01 PM PROFESSOR OF HISTORY Ericka Glass MD LAB BLOOD ORDERABLES Final Result [facility] [address] [facility] Department [place] [address] * (ABNORMAL) Comprehensive metabolic panel, without glucose (Outreach) (03/27/2024 2:09 PM PROFESSOR OF HISTORY) Sodium 136 135 - 145 mmol/L Potassium, pl 3.4 3.3 - 4.9 mmol/L [facility] Chloride 95(L) 97 - 110 mmol/L [facility] CO2 25 22 - 32 mmol/L [facility] Anion gap 16(H) 2 - 15 mmol/L [facility] BUN 22 6 - 25 mg/dL [facility] Creatinine 0.83 0.60 - 1.10 mg/dL [facility] Calcium 8.6 8.5 - 10.3 mg/dL [facility] Protein, pl 7.3 6.5 - 8.5 g/dL [facility] Albumin 3.3(L) 3.5 - 5.0 g/dL [facility] Bilirubin, total 0.8 0.1 - 1.2 mg/dL [facility] Alk phos 257(H) 40 - 130 Units/L [facility] AST 53(H) 10 - 45 Units/L [facility] ALT 29 7 - 45 Units/L [facility] Blood 03/27/2024 2:09 PM PROFESSOR OF HISTORY 03/27/2024 7:01 PM PROFESSOR OF HISTORY us Ericka Glass MD LAB BLOOD ORDERABLES Final Result [facility] [address] [facility] Department [place] [address] * (ABNORMAL) CBC with auto differential (03/27/2024 2:09 PM PROFESSOR OF HISTORY) WBC 15.8(H) 3.8 - 9.9 K/cumm Hgb 11.0(L) 11.9 - 15.5 g/dL [facility] Hct 35.4(L) 35.6 - 45.5 % [facility] Plt 305 150 - 400 K/cumm [facility] MPV 10.4 9.1 - 12.3 fL [facility] RBC 3.36(L) 3.90 - 5.20 M/cumm [facility] MCV 105.4(H) 81.3 - 96.4 fL [facility] MCH 32.7 27.1 - 33.3 pg [facility] MCHC 31.1(L) 32.3 - 35.7 g/dL [facility] RDW CV 14.7 11.1 - 14.9 % [facility] RDW SD 56.8(H) 35.7 - 48.1 fL [facility] NRBC abs 0.02(H) 0.00 - 0.01 K/cumm [facility] Blood 03/27/2024 2:0 9 PM PROFESSOR OF HISTORY 03/27/2024 7:01 PM PROFESSOR OF HISTORY Ericka Glass MD LAB BLOOD ORDERABLES Final Result Performing Organization Address [facility] de Phone Number [facility] [place] [address] * (ABNORMAL) Erythrocyte sedimentation rate (03/27/2024 2:09 PM PROFESSOR OF HISTORY) Erythrocyte sedimentation rate 48(H) 1 - 30 mm/hr Blood 03/27/2024 2:09 PM PROFESSOR OF HISTORY 03/27/2024 7:01 PM PROFESSOR OF HISTORY Ericka Glass MD LAB BLOOD ORDERABLES Final Result Performing Organization Address [facility] Phone Number [facility] [place] [address] * (ABNORMAL) CRP (acute phase) (03/27/2024 2:09 PM PROFESSOR OF HISTORY) CRP 312.4(H) <=10.0 mg/L Comment:Repeated on Dilution Blood 03/27/2024 2:09 PM PROFESSOR OF HISTORY 03/27/2024 7:01 PM PROFESSOR OF HISTORY Ericka Glass MD LAB BLOOD ORDERABLES Final Result Performing Organization Address [facility] de Phone Number [facility] [place] [address] * POCT glucose (03/12/2024 7:49 PM PROFESSOR OF HISTORY) Glucose, POC 109 70 - 199 mg/dL Blood 03/12/2024 7:49 PM PROFESSOR OF HISTORY 03/12/2024 7:49 PM PROFESSOR OF HISTORY Krysten Cohn MD LAB POCT ORDERABLES - DEVICE Final Result Performing Organization Address [facility]/ZIP Co de Phone Number [facility] [place] [address] * POCT glucose (03/12/2024 4:39 PM PROFESSOR OF HISTORY) Glucose, POC 78 70 - 199 mg/dL Blood 03/12/2024 4:39 PM PROFESSOR OF HISTORY 03/12/2024 4:39 PM PROFESSOR OF HISTORY us Krysten Cohn MD LAB POCT ORDERABLES - DEVICE Final Result Performing Organization Address [facility] [place] [address] * POCT glucose (03/12/2024 11:41 AM PROFESSOR OF HISTORY) Glucose, POC 98 70 - 199 mg/dL Blood 03/12/2024 11:4 1 AM PROFESSOR OF HISTORY 03/12/2024 11:41 AM PROFESSOR OF HISTORY us Krysten Cohn MD LAB POCT ORDERABLES - DEVICE Final Result Performing Organization Address City/[facility] Co de Phone Number [facility] [place] [address] * POCT glucose (03/12/2024 7:48 AM PROFESSOR OF HISTORY) Glucose, POC 92 70 - 199 mg/dL Blood 03/12/2024 7:48 AM PROFESSOR OF HISTORY 03/12/2024 7:48 AM PROFESSOR OF HISTORY us Krysten Cohn MD LAB POCT ORDERABLES - DEVICE Final Result Performing Organization Address [facility] Co [place] [address] * eGFR (03/11/2024 9:56 PM PROFESSOR OF HISTORY) eGFR >90 >=60 mL/min/1. 73 m2 Comment: [...] last reviewed 2021. Blood 03/11/2024 9:56 PM PROFESSOR OF HISTORY 03/11/2024 10:31 PM PROFESSOR OF HISTORY us Krysten Cohn MD LAB BLOOD ORDERABLES Final Result [facility] [address] [facility] Department [place] [address] * Differential, auto (03/11/2024 9:56 PM PROFESSOR OF HISTORY) Pathologist [facility] Neutrophil abs 3.2 1.5 - 6.5 K/cumm Imm gran abs 0.0 0.0 - 0.1 K/cumm [facility] Lymphocyte abs 1.6 0.8 - 3.3 K/cumm [facility] Monocyte abs 0.7 0.2 - 0.8 K/cumm [facility] Eosinophil abs 0.1 0.0 - 0.5 K/cumm [facility] Basophil abs 0.1 0.0 - 0.1 K/cumm [facility] Neutrophil pct 55.9 % [facility] Comment: Interpretive Data Percent cell count reference ranges are not reported, since discordance with absolute values may lead to misinterpretation of CBC data. Current Interpretive Data was last revised on 2017. Imm gran pct 0.7 % [facility] Comment: Interpretive Data Percent cell count reference ranges are not reported, since discordance with absolute values may lead to misinterpretation of CBC data. Current Interpretive Data was last revised on 2017. Lymphocyte pct 28.2 % [facility] Comment: Interpretive Data Percent cell count reference ranges are not reported, since discordance with absolute values may lead to misinterpretation of CBC data. Current Interpretive Data was last revised on 2017. Monocyte pct 12.3 % [facility] Comment: Interpretive Data Percent cell count reference ranges are not reported, since discordance with absolute values may lead to misinterpretation of CBC data. Current Interpretive Data was last revised on 2017. Eosinophil pct 1.9 % [facility] Comment: Interpretive Data Percent cell count reference ranges are not reported, since discordance with absolute values may lead to misinterpretation of CBC data. Current Interpretive Data was last revised on 2017. Basophil pct 1.0 % [facility] Comment: Interpretive Data Percent cell count reference ranges are not reported, since discordance with absolute values may lead to misinterpretation of CBC data. Current Interpretive Data was last revised on 2017. Blood 03/11/2024 9:56 PM PROFESSOR OF HISTORY 03/11/2024 10:33 PM PROFESSOR OF HISTORY us Krysten Cohn MD LAB BLOOD ORDERABLES Final Result [facility] [address] [facility] Department [place] [address] * (ABNORMAL) CBC with auto differential (03/11/2024 9:56 PM PROFESSOR OF HISTORY) WBC 5.8 3.8 - 9.9 K/cumm Hgb 8.7(L) 11.9 - 15.5 g/dL [facility] Hct 27.3(L) 35.6 - 45.5 % [facility] Plt 392 150 - 400 K/cumm [facility] MPV 9.9 9.1 - 12.3 fL [facility] RBC 2.55(L) 3.90 - 5.20 M/cumm [facility] MCV 107.1(H) 81.3 - 96.4 fL [facility] MCH 34.1(H) 27.1 - 33.3 pg [facility] MCHC 31.9(L) 32.3 - 35.7 g/dL [facility] RDW CV 15.7(H) 11.1 - 14.9 % [facility] RDW SD 61.0(H) 35.7 - 48.1 fL [facility] NRBC abs 0.00 0.00 - 0.01 K/cumm [facility] Blood 03/11/2024 9:56 PM PROFESSOR OF HISTORY 03/11/2024 10:33 PM PROFESSOR OF HISTORY us Krysten Cohn MD LAB BLOOD ORDERABLES Final Result Performing Organization Address City/[facility] Co de Phone Number [facility] Department [place] [address] * Phosphorus (03/11/2024 9:56 PM PROFESSOR OF HISTORY) Phosphorus, pl 3.1 2.3 - 4.5 mg/dL Blood 03/11/2024 9:56 PM PROFESSOR OF HISTORY 03/11/2024 10:31 PM PROFESSOR OF HISTORY us Krysten Cohn MD LAB BLOOD ORDERABLES Final Result Performing Organization Address City/[facility] Co de Phone Number [facility] Department [place] [address] * (ABNORMAL) Magnesium (03/11/2024 9:56 PM PROFESSOR OF HISTORY) Magnesium 1.3(L) 1.4 - 2.5 mg/dL Blood 03/11/2024 9:56 PM PROFESSOR OF HISTORY 03/11/2024 10:31 PM PROFESSOR OF HISTORY us Krysten Cohn MD LAB BLOOD ORDERABLES Final Result Performing Organization Address City/[facility] Co de Phone Number [facility] Department [place] [address] * (ABNORMAL) Comprehensive metabolic panel (03/11/2024 9:56 PM PROFESSOR OF HISTORY) Sodium 140 135 - 145 mmol/L Potassium, pl 3.1(L) 3.3 - 4.9 mmol/L [facility] Chloride 100 97 - 110 mmol/L [facility] CO2 29 22 - 32 mmol/L [facility] Anion gap 11 2 - 15 mmol/L [facility] BUN 10 6 - 25 mg/dL [facility] Creatinine 0.64 0.60 - 1.10 mg/dL [facility] Glucose 96 70 - 199 mg/dL [facility] Comment: Interpretive Data Fasting glucose >/= 126 [...] 2022. Calcium 7.8(L) 8.5 - 10.3 mg/dL [facility] Bilirubin, total 0.5 0.1 - 1.2 mg/dL [facility] Protein, pl 6.1(L) 6.5 - 8.5 g/dL [facility] Albumin 3.0(L) 3.5 - 5.0 g/dL [facility] Alk phos 283(H) 40 - 130 Units/L [facility] ALT 11 7 - 45 Units/L [facility] AST 38 10 - 45 Units/L [facility] Blood 03/11/2024 9:56 PM PROFESSOR OF HISTORY 03/11/2024 10:31 PM PROFESSOR OF HISTORY us Krysten Cohn MD LAB BLOOD ORDERABLES Final Result [facility] Department [place] [address] * POCT glucose (03/11/2024 7:43 PM PROFESSOR OF HISTORY) Glucose, POC 106 70 - 199 mg/dL Blood 03/11/2024 7:43 PM PROFESSOR OF HISTORY 03/11/2024 7:43 PM PROFESSOR OF HISTORY us Krysten Cohn MD LAB POCT ORDERABLES - [place] [address] * POCT glucose (03/11/2024 5:07 PM PROFESSOR OF HISTORY) Glucose, POC 109 70 - 199 mg/dL Blood 03/11/2024 5:07 PM PROFESSOR OF HISTORY 03/11/2024 5:07 PM PROFESSOR OF HISTORY us Krysten Cohn MD LAB POCT ORDERABLES - DEVICE Final Result Performing Organization Address City/[facility]/[place] [address] * POCT glucose (03/11/2024 11:52 AM PROFESSOR OF HISTORY) Glucose, POC 102 70 - 199 mg/dL Blood 03/11/2024 11:5 2 AM PROFESSOR OF HISTORY 03/11/2024 11:52 AM PROFESSOR OF HISTORY us Krysten Cohn MD LAB POCT ORDERABLES - DEVICE Final Result Performing Organization Address City/[facility]/[place]IP [place] [address] * POCT glucose (03/11/2024 7:40 AM PROFESSOR OF HISTORY) Glucose, POC 110 70 - 199 mg/dL Blood 03/11/2024 7:40 AM PROFESSOR OF HISTORY 03/11/2024 7:40 AM PROFESSOR OF HISTORY us Krysten Cohn MD LAB POCT ORDERABLES - DEVICE Final Result Performing Organization Address City/[facility] Co de Phone Number [place] [facility] [place] [address] * POCT glucose (03/10/2024 7:47 PM PROFESSOR OF HISTORY) Glucose, POC 127 70 - 199 mg/dL Blood 03/10/2024 7:47 PM PROFESSOR OF HISTORY 03/10/2024 7:47 PM PROFESSOR OF HISTORY us Krysten Cohn MD LAB POCT ORDERABLES - DEVICE Final Result Performing Organization Address [facility] Co de Phone Number [facility] [place] [address] * POCT glucose (03/10/2024 5:07 PM PROFESSOR OF HISTORY) Glucose, POC 93 70 - 199 mg/dL Blood 03/10/2024 5:07 PM PROFESSOR OF HISTORY 03/10/2024 5:07 PM PROFESSOR OF HISTORY us Krysten Cohn MD LAB POCT ORDERABLES - DEVICE Final Result Performing Organization Address City/[facility] Co de Phone Number [facility] [place] [address] * POCT glucose (03/10/2024 11:24 AM PROFESSOR OF HISTORY) Glucose, POC 93 70 - 199 mg/dL Blood 03/10/2024 11:2 4 AM PROFESSOR OF HISTORY 03/10/2024 11:24 AM PROFESSOR OF HISTORY us Krysten Cohn MD LAB POCT ORDERABLES - DEVICE Final Result Performing Organization Address City/[facility] Co de Phone Number [facility] [place] [address] * POCT glucose (03/10/2024 7:43 AM PROFESSOR OF HISTORY) Glucose, POC 105 70 - 199 mg/dL Blood 03/10/2024 7:43 AM PROFESSOR OF HISTORY 03/10/2024 7:43 AM PROFESSOR OF HISTORY us Krysten Cohn MD LAB POCT ORDERABLES - DEVICE Final Result Performing Organization Address City/[facility] Co de Phone Number [facility] [place] [address] * eGFR (03/09/2024 8:42 PM PROFESSOR OF HISTORY) Pathologist [facility] eGFR >90 >=60 mL/min/1. 73 m2 Comment: [...] last reviewed 2021. Blood 03/09/2024 8:42 PM PROFESSOR OF HISTORY 03/09/2024 8:56 PM PROFESSOR OF HISTORY us Krysten Cohn MD LAB BLOOD ORDERABLES Final Result Performing Organization Address City/[facility]/ZIP Co de Phone Number M[place]INE [facility] Department [place] [address] * (ABNORMAL) Differential, auto (03/09/2024 8:42 PM PROFESSOR OF HISTORY) Neutrophil abs 5.2 1.5 - 6.5 K/cumm Imm gran abs 0.1 0.0 - 0.1 K/cumm [facility] Lymphocyte abs 1.7 0.8 - 3.3 K/cumm [facility] Monocyte abs 0.9(H) 0.2 - 0.8 K/cumm [facility] Eosinophil abs 0.1 0.0 - 0.5 K/cumm [facility] Basophil abs 0.1 0.0 - 0.1 K/cumm [facility] Neutrophil pct 65.0 % [facility] Comment: Interpretive Data Percent cell count reference ranges are not reported, since discordance with absolute values may lead to misinterpretation of CBC data. Current Interpretive Data was last revised on 2017. Imm gran pct 0.7 % [facility] Comment: Interpretive Data Percent cell count reference ranges are not reported, since discordance with absolute values may lead to misinterpretation of CBC data. Current Interpretive Data was last revised on 2017. Lymphocyte pct 21.0 % [facility] Comment: Interpretive Data Percent cell count reference ranges are not reported, since discordance with absolute values may lead to misinterpretation of CBC data. Current Interpretive Data was last revised on 2017. Monocyte pct 11.2 % [facility] Comment: Interpretive Data Percent cell count reference ranges are not reported, since discordance with absolute values may lead to misinterpretation of CBC data. Current Interpretive Data was last revised on 2017. Eosinophil pct 1.2 % [facility] Comment: Interpretive Data Percent cell count reference ranges are not reported, since discordance with absolute values may lead to misinterpretation of CBC data. Current Interpretive Data was last revised on 2017. Basophil pct 0.9 % [facility] Comment: Interpretive Data Percent cell count reference ranges are not reported, since discordance with absolute values may lead to misinterpretation of CBC data. Current Interpretive Data was last revised on 2017. Blood 03/09/2024 8:42 PM PROFESSOR OF HISTORY 03/09/2024 8:56 PM PROFESSOR OF HISTORY us Krysten Cohn MD LAB BLOOD ORDERABLES Final Result Performing Organization Address [facility]/ZIP Co de Phone Number [facility] [place] [address] * (ABNORMAL) CBC with auto differential (03/09/2024 8:42 PM PROFESSOR OF HISTORY) Pathologist [facility] WBC 8.0 3.8 - 9.9 K/cumm Hgb 8.5(L) 11.9 - 15.5 g/dL [facility] Hct 26.9(L) 35.6 - 45.5 % [facility] Plt 399 150 - 400 K/cumm [facility] MPV 10.1 9.1 - 12.3 fL [facility] RBC 2.55(L) 3.90 - 5.20 M/cumm [facility] MCV 105.5(H) 81.3 - 96.4 fL [facility] MCH 33.3 27.1 - 33.3 pg [facility] MCHC 31.6(L) 32.3 - 35.7 g/dL [facility] RDW CV 16.0(H) 11.1 - 14.9 % [facility] RDW SD 61.0(H) 35.7 - 48.1 fL [facility] NRBC abs 0.00 0.00 - 0.01 K/cumm [facility] Blood 03/09/2024 8:42 PM PROFESSOR OF HISTORY 03/09/2024 8:56 PM PROFESSOR OF HISTORY Krysten Cohn MD LAB BLOOD ORDERABLES Final Result [facility] [place] [address] * Phosphorus (03/09/2024 8:42 PM PROFESSOR OF HISTORY) Pathologist [facility] Phosphorus, pl 2.6 2.3 - 4.5 mg/dL Blood 03/09/2024 8:42 PM PROFESSOR OF HISTORY 03/09/2024 8:56 PM PROFESSOR OF HISTORY us Krysten Cohn MD LAB BLOOD ORDERABLES Final Result [facility] [place] [address] * (ABNORMAL) Magnesium (03/09/2024 8:42 PM PROFESSOR OF HISTORY) Pathologist [facility] Magnesium 1.3(L) 1.4 - 2.5 mg/dL Blood 03/09/2024 8:42 PM PROFESSOR OF HISTORY 03/09/2024 8:56 PM PROFESSOR OF HISTORY Krysten Cohn MD LAB BLOOD ORDERABLES Final Result Performing Organization Address [facility] Co de Phone Number M[place]LEINE [facility] [place] [address] * (ABNORMAL) Comprehensive metabolic panel (03/09/2024 8:42 PM PROFESSOR OF HISTORY) [facility] Sodium 138 135 - 145 mmol/L Potassium, pl 3.2(L) 3.3 - 4.9 mmol/L [facility] Chloride 99 97 - 110 mmol/L [facility] CO2 29 22 - 32 mmol/L [facility] Anion gap 10 2 - 15 mmol/L [facility] BUN 9 6 - 25 mg/dL [facility] Creatinine 0.62 0.60 - 1.10 mg/dL [facility] Glucose 102 70 - 199 mg/dL [facility] Comment: Interpretive Data Fasting glucose >/= 126 [...] 2022. Calcium 8.0(L) 8.5 - 10.3 mg/dL [facility] Bilirubin, total 0.6 0.1 - 1.2 mg/dL [facility] Protein, pl 6.1(L) 6.5 - 8.5 g/dL [facility] Albumin 3.0(L) 3.5 - 5.0 g/dL [facility] Alk phos 213(H) 40 - 130 Units/L [facility] ALT 10 7 - 45 Units/L [facility] AST 34 10 - 45 Units/L [facility] Blood 03/09/2024 8:42 PM PROFESSOR OF HISTORY 03/09/2024 8:56 PM PROFESSOR OF HISTORY us Krysten Cohn MD LAB BLOOD ORDERABLES Final Result Performing Organization Address [facility] Co de Phone Number [facility] [place] [address] * POCT glucose (03/09/2024 7:31 PM PROFESSOR OF HISTORY) Glucose, POC 119 70 - 199 mg/dL Blood 03/09/2024 7:31 PM PROFESSOR OF HISTORY 03/09/2024 7:31 PM PROFESSOR OF HISTORY us Krysten Cohn MD LAB POCT ORDERABLES - DEVICE Final Result Performing Organization Address [facility] Co de Phone Number [facility] [place] [address] * POCT glucose (03/09/2024 4:39 PM PROFESSOR OF HISTORY) Glucose, POC 105 70 - 199 mg/dL Blood 03/09/2024 4:39 PM PROFESSOR OF HISTORY 03/09/2024 4:39 PM PROFESSOR OF HISTORY us Krysten Cohn MD LAB POCT ORDERABLES - DEVICE Final Result Performing Organization Address [facility] Co de Phone Number [facility] [place] [address] * POCT glucose (03/09/2024 11:39 AM PROFESSOR OF HISTORY) Glucose, POC 121 70 - 199 mg/dL Blood 03/09/2024 11:3 9 AM PROFESSOR OF HISTORY 03/09/2024 11:39 AM PROFESSOR OF HISTORY us Krysten Cohn MD LAB POCT ORDERABLES - DEVICE Final Result Performing Organization Address City/[facility] Co de Phone Number [facility] Department [place] [address] * POCT glucose (03/09/2024 8:27 AM PROFESSOR OF HISTORY) Glucose, POC 123 70 - 199 mg/dL Blood 03/09/2024 8:27 AM PROFESSOR OF HISTORY 03/09/2024 8:27 AM PROFESSOR OF HISTORY us Krysten Cohn MD LAB POCT ORDERABLES - DEVICE Final Result Performing Organization Address City/[facility] de Phone Number [place] [facility] Department [place] [address] * eGFR (03/08/2024 9:09 PM PROFESSOR OF HISTORY) eGFR >90 >=60 mL/min/1. 73 m2 Comment: [...] last reviewed 2021. Blood 03/08/2024 9:09 PM PROFESSOR OF HISTORY 03/08/2024 9:30 PM PROFESSOR OF HISTORY us Krysten Cohn MD LAB BLOOD ORDERABLES Final Result Performing Organization Address City/[facility] Co de Phone Number [facility] [place] [address] * Phosphorus (03/08/2024 9:09 PM PROFESSOR OF HISTORY) [facility] Phosphorus, pl 2.7 2.3 - 4.5 mg/dL Blood 03/08/2024 9:09 PM PROFESSOR OF HISTORY 03/08/2024 9:30 PM PROFESSOR OF HISTORY us Krysten Cohn MD LAB BLOOD ORDERABLES Final Result Performing Organization Address [facility] de Phone Number [facility] [place] [address] * (ABNORMAL) Magnesium (03/08/2024 9:09 PM PROFESSOR OF HISTORY) [facility] Magnesium 1.2(L) 1.4 - 2.5 mg/dL Blood 03/08/2024 9:09 PM PROFESSOR OF HISTORY 03/08/2024 9:30 PM PROFESSOR OF HISTORY Krysten Cohn MD LAB BLOOD ORDERABLES Final Result Performing Organization Address [facility] [place] [address] * (ABNORMAL) Comprehensive metabolic panel (03/08/2024 9:09 PM PROFESSOR OF HISTORY) [facility] Sodium 138 135 - 145 mmol/L Potassium, pl 3.4 3.3 - 4.9 mmol/L [facility] Chloride 99 97 - 110 mmol/L [facility] CO2 27 22 - 32 mmol/L [facility] Anion gap 12 2 - 15 mmol/L [facility] BUN 11 6 - 25 mg/dL [facility] Creatinine 0.62 0.60 - 1.10 mg/dL [facility] Glucose 93 70 - 199 mg/dL [facility] Comment: Interpretive Data Fasting glucose >/= 126 [...] 2022. Calcium 7.9(L) 8.5 - 10.3 mg/dL [facility] Bilirubin, total 0.6 0.1 - 1.2 mg/dL [facility] Protein, pl 6.2(L) 6.5 - 8.5 g/dL [facility] Albumin 2.9(L) 3.5 - 5.0 g/dL [facility] Alk phos 226(H) 40 - 130 Units/L [facility] ALT 13 7 - 45 Units/L [facility] AST 42 10 - 45 Units/L [facility] Blood 03/08/2024 9:09 PM PROFESSOR OF HISTORY 03/08/2024 9:30 PM PROFESSOR OF HISTORY us Krysten Cohn MD LAB BLOOD ORDERABLES Final Result Performing Organization Address City/[facility]/ZIP Co de Phone Number [facility] Department [place] [address] * POCT glucose (03/08/2024 7:40 PM PROFESSOR OF HISTORY) [facility] Glucose, POC 103 70 - 199 mg/dL Blood 03/08/2024 7:40 PM PROFESSOR OF HISTORY 03/08/2024 7:40 PM PROFESSOR OF HISTORY Krysten Cohn MD LAB POCT ORDERABLES - DEVICE Final Result [facility] [place] [address] * POCT glucose (03/08/2024 5:03 PM PROFESSOR OF HISTORY) Glucose, POC 81 70 - 199 mg/dL Blood 03/08/2024 5:03 PM PROFESSOR OF HISTORY 03/08/2024 5:03 PM PROFESSOR OF HISTORY us Krysten Cohn MD LAB POCT ORDERABLES - DEVICE Final Result Performing Organization Address [facility] [place] [address] * POCT glucose (03/08/2024 11:12 AM PROFESSOR OF HISTORY) Glucose, POC 104 70 - 199 mg/dL Blood 03/08/2024 11:1 2 AM PROFESSOR OF HISTORY 03/08/2024 11:12 AM PROFESSOR OF HISTORY us Krysten Cohn MD LAB POCT ORDERABLES - DEVICE Final Result Performing Organization Address City/[facility]/ZIP Co de Phone Number [place]INE [facility] [place] [address] * POCT glucose (03/08/2024 8:18 AM PROFESSOR OF HISTORY) Glucose, POC 103 70 - 199 mg/dL Blood 03/08/2024 8:18 AM PROFESSOR OF HISTORY 03/08/2024 8:18 AM PROFESSOR OF HISTORY us Krysten Cohn MD LAB POCT ORDERABLES - DEVICE Final Result [facility] [place] [address] * eGFR (03/07/2024 10:22 PM PROFESSOR OF HISTORY) eGFR >90 >=60 mL/min/1. 73 m2 Comment: [...] reviewed 2021. Blood 03/07/2024 10:2 2 PM PROFESSOR OF HISTORY 03/07/2024 11:02 PM PROFESSOR OF HISTORY us Krysten Cohn MD LAB BLOOD ORDERABLES Final Result [facility] Department [place] [address] * (ABNORMAL) Differential, auto (03/07/2024 10:22 PM PROFESSOR OF HISTORY) Pathologist [facility] Neutrophil abs 7.3(H) 1.5 - 6.5 K/cumm Imm gran abs 0.2(H) 0.0 - 0.1 K/cumm [facility] Lymphocyte abs 2.2 0.8 - 3.3 K/cumm [facility] Monocyte abs 1.1(H) 0.2 - 0.8 K/cumm [facility] Eosinophil abs 0.2 0.0 - 0.5 K/cumm [facility] Basophil abs 0.1 0.0 - 0.1 K/cumm [facility] Neutrophil pct 66.0 % [facility] Comment: Interpretive Data Percent cell count reference ranges are not reported, since discordance with absolute values may lead to misinterpretation of CBC data. Current Interpretive Data was last revised on 2017. Imm gran pct 2.0 % [facility] Comment: Interpretive Data Percent cell count reference ranges are not reported, since discordance with absolute values may lead to misinterpretation of CBC data. Current Interpretive Data was last revised on 2017. Lymphocyte pct 20.0 % [facility] Comment: Interpretive Data Percent cell count reference ranges are not reported, since discordance with absolute values may lead to misinterpretation of CBC data. Current Interpretive Data was last revised on 2017. Monocyte pct 9.6 % [facility] Comment: Interpretive Data Percent cell count reference ranges are not reported, since discordance with absolute values may lead to misinterpretation of CBC data. Current Interpretive Data was last revised on 2017. Eosinophil pct 1.4 % [facility] Comment: Interpretive Data Percent cell count reference ranges are not reported, since discordance with absolute values may lead to misinterpretation of CBC data. Current Interpretive Data was last revised on 2017. Basophil pct 1.0 % [facility] Comment: Interpretive Data Percent cell count reference ranges are not reported, since discordance with absolute values may lead to misinterpretation of CBC data. Current Interpretive Data was last revised on 2017. Blood 03/07/2024 10:2 2 PM PROFESSOR OF HISTORY 03/07/2024 11:02 PM PROFESSOR OF HISTORY us Krysten Cohn MD LAB BLOOD ORDERABLES Final Result [facility] Department [place] [address] * (ABNORMAL) CBC with auto differential (03/07/2024 10:22 PM PROFESSOR OF HISTORY) WBC 11.1(H) 3.8 - 9.9 K/cumm Hgb 8.3(L) 11.9 - 15.5 g/dL [facility] Hct 25.8(L) 35.6 - 45.5 % [facility] Plt 335 150 - 400 K/cumm [facility] MPV 10.3 9.1 - 12.3 fL [facility] RBC 2.37(L) 3.90 - 5.20 M/cumm [facility] MCV 108.9(H) 81.3 - 96.4 fL [facility] MCH 35.0(H) 27.1 - 33.3 pg [facility] MCHC 32.2(L) 32.3 - 35.7 g/dL [facility] RDW CV 16.5(H) 11.1 - 14.9 % [facility] RDW SD 63.4(H) 35.7 - 48.1 fL [facility] NRBC abs 0.00 0.00 - 0.01 K/cumm [facility] Blood 03/07/2024 10:2 2 PM PROFESSOR OF HISTORY 03/07/2024 11:02 PM PROFESSOR OF HISTORY us Krysten Cohn MD LAB BLOOD ORDERABLES Final Result Performing Organization Address [facility] de Phone Number [facility] [place] [address] * Phosphorus (03/07/2024 10:22 PM PROFESSOR OF HISTORY) Phosphorus, pl 2.7 2.3 - 4.5 mg/dL Blood 03/07/2024 10:2 2 PM PROFESSOR OF HISTORY 03/07/2024 11:02 PM PROFESSOR OF HISTORY us Krysten Cohn MD LAB BLOOD ORDERABLES Final Result Performing Organization Address City/[facility] Co de Phone Number [facility] [place] [address] * Magnesium (03/07/2024 10:22 PM PROFESSOR OF HISTORY) Magnesium 1.4 1.4 - 2.5 mg/dL Blood 03/07/2024 10:2 2 PM PROFESSOR OF HISTORY 03/07/2024 11:02 PM PROFESSOR OF HISTORY us Krysten Cohn MD LAB BLOOD ORDERABLES Final Result Performing Organization Address City/[facility] Co de Phone Number [facility] [place] [address] * (ABNORMAL) Comprehensive metabolic panel (03/07/2024 10:22 PM PROFESSOR OF HISTORY) Sodium 138 135 - 145 mmol/L Potassium, pl 3.3 3.3 - 4.9 mmol/L [facility] Chloride 101 97 - 110 mmol/L [facility] CO2 29 22 - 32 mmol/L [facility] Anion gap 8 2 - 15 mmol/L [facility] BUN 13 6 - 25 mg/dL [facility] Creatinine 0.70 0.60 - 1.10 mg/dL [facility] Glucose 93 70 - 199 mg/dL [facility] Comment: Interpretive Data Fasting glucose >/= 126 [...] 2022. Calcium 7.7(L) 8.5 - 10.3 mg/dL [facility] Bilirubin, total 0.7 0.1 - 1.2 mg/dL [facility] Protein, pl 5.7(L) 6.5 - 8.5 g/dL [facility] Albumin 2.5(L) 3.5 - 5.0 g/dL [facility] Alk phos 216(H) 40 - 130 Units/L [facility] ALT 14 7 - 45 Units/L [facility] AST 37 10 - 45 Units/L [facility] Blood 03/07/2024 10:2 2 PM PROFESSOR OF HISTORY 03/07/2024 11:02 PM PROFESSOR OF HISTORY us Krysten Cohn MD LAB BLOOD ORDERABLES [place] [address] * POCT glucose (03/07/2024 7:39 PM PROFESSOR OF HISTORY) Glucose, POC 96 70 - 199 mg/dL Blood 03/07/2024 7:39 PM PROFESSOR OF HISTORY 03/07/2024 7:39 PM PROFESSOR OF HISTORY us Krysten Cohn MD LAB POCT ORDERABLES - DEVICE [place] [address] * POCT glucose (03/07/2024 5:48 PM PROFESSOR OF HISTORY) Glucose, POC 81 70 - 199 mg/dL Blood 03/07/2024 5:48 PM PROFESSOR OF HISTORY 03/07/2024 5:48 PM PROFESSOR OF HISTORY us Krysten Cohn MD LAB POCT ORDERABLES - DEVICE [place] [address] * POCT glucose (03/07/2024 11:28 AM PROFESSOR OF HISTORY) Glucose, POC 126 70 - 199 mg/dL Blood 03/07/2024 11:2 8 AM PROFESSOR OF HISTORY 03/07/2024 11:28 AM PROFESSOR OF HISTORY us Krysten Cohn MD LAB POCT ORDERABLES - DEVICE [place] [address] * POCT glucose (03/07/2024 7:44 AM PROFESSOR OF HISTORY) Glucose, POC 118 70 - 199 mg/dL Blood 03/07/2024 7:44 AM PROFESSOR OF HISTORY 03/07/2024 7:44 AM PROFESSOR OF HISTORY Krysten Cohn MD LAB POCT ORDERABLES - DEVICE Final Result Performing Organization Address [facility] de Phone Number [facility] [place] [address] * eGFR (03/06/2024 10:05 PM PROFESSOR OF HISTORY) Pathologist [facility] eGFR >90 >=60 mL/min/1. 73 m2 Comment: [...] reviewed 2021. Blood 03/06/2024 10:0 5 PM PROFESSOR OF HISTORY 03/06/2024 11:51 PM PROFESSOR OF HISTORY us Krysten Cohn MD LAB BLOOD ORDERABLES Final Result Performing Organization Address [facility] Co de Phone Number [facility] Department [place] [address] * (ABNORMAL) Differential, auto (03/06/2024 10:05 PM PROFESSOR OF HISTORY) [facility] Neutrophil abs 11.3(H) 1.5 - 6.5 K/cumm Imm gran abs 0.5(H) 0.0 - 0.1 K/cumm [facility] Lymphocyte abs 2.1 0.8 - 3.3 K/cumm [facility] Monocyte abs 1.0(H) 0.2 - 0.8 K/cumm [facility] Eosinophil abs 0.1 0.0 - 0.5 K/cumm [facility] Basophil abs 0.1 0.0 - 0.1 K/cumm [facility] Neutrophil pct 75.1 % [facility] Comment: Interpretive Data Percent cell count reference ranges are not reported, since discordance with absolute values may lead to misinterpretation of CBC data. Current Interpretive Data was last revised on 2017. Imm gran pct 3.1 % [facility] Comment: Interpretive Data Percent cell count reference ranges are not reported, since discordance with absolute values may lead to misinterpretation of CBC data. Current Interpretive Data was last revised on 2017. Lymphocyte pct 13.8 % [facility] Comment: Interpretive Data Percent cell count reference ranges are not reported, since discordance with absolute values may lead to misinterpretation of CBC data. Current Interpretive Data was last revised on 2017. Monocyte pct 6.4 % [facility] Comment: Interpretive Data Percent cell count reference ranges are not reported, since discordance with absolute values may lead to misinterpretation of CBC data. Current Interpretive Data was last revised on 2017. Eosinophil pct 0.9 % [facility] Comment: Interpretive Data Percent cell count reference ranges are not reported, since discordance with absolute values may lead to misinterpretation of CBC data. Current Interpretive Data was last revised on 2017. Basophil pct 0.7 % [facility] Comment: Interpretive Data Percent cell count reference ranges are not reported, since discordance with absolute values may lead to misinterpretation of CBC data. Current Interpretive Data was last revised on 2017. Blood 03/06/2024 10:0 5 PM PROFESSOR OF HISTORY 03/06/2024 11:52 PM PROFESSOR OF HISTORY us Krysten Cohn MD LAB BLOOD ORDERABLES Final Result [facility] [place] [address] * (ABNORMAL) CBC with auto differential (03/06/2024 10:05 PM PROFESSOR OF HISTORY) WBC 15.1(H) 3.8 - 9.9 K/cumm Hgb 8.8(L) 11.9 - 15.5 g/dL [facility] Hct 27.9(L) 35.6 - 45.5 % [facility] Plt 338 150 - 400 K/cumm [facility] MPV 10.6 9.1 - 12.3 fL [facility] RBC 2.55(L) 3.90 - 5.20 M/cumm [facility] MCV 109.4(H) 81.3 - 96.4 fL [facility] MCH 34.5(H) 27.1 - 33.3 pg [facility] MCHC 31.5(L) 32.3 - 35.7 g/dL [facility] RDW CV 16.7(H) 11.1 - 14.9 % [facility] RDW SD 62.4(H) 35.7 - 48.1 fL [facility] NRBC abs 0.00 0.00 - 0.01 K/cumm [facility] Blood 03/06/2024 10:0 5 PM PROFESSOR OF HISTORY 03/06/2024 11:52 PM PROFESSOR OF HISTORY us Krysten Cohn MD LAB BLOOD ORDERABLES Final Result Performing Organization Address City/[facility]/ZIP Co de Phone Number [facility] [place] [address] * Phosphorus (03/06/2024 10:05 PM PROFESSOR OF HISTORY) Pathologist [facility] Phosphorus, pl 2.3 2.3 - 4.5 mg/dL Blood 03/06/2024 10:0 5 PM PROFESSOR OF HISTORY 03/06/2024 11:51 PM PROFESSOR OF HISTORY us Krysten Cohn MD LAB BLOOD ORDERABLES Final Result Performing Organization Address City/[facility]/ZIP Co de Phone Number [facility] [place] [address] * Magnesium (03/06/2024 10:05 PM PROFESSOR OF HISTORY) Magnesium 1.5 1.4 - 2.5 mg/dL Blood 03/06/2024 10:0 5 PM PROFESSOR OF HISTORY 03/06/2024 11:51 PM PROFESSOR OF HISTORY Krysten Cohn MD LAB BLOOD ORDERABLES Final Result [facility] One [facility] [place] [address] * (ABNORMAL) Comprehensive metabolic panel (03/06/2024 10:05 PM PROFESSOR OF HISTORY) Pathologist [facility] Sodium 139 135 - 145 mmol/L Potassium, pl 3.6 3.3 - 4.9 mmol/L [facility] Chloride 100 97 - 110 mmol/L [facility] CO2 28 22 - 32 mmol/L [facility] Anion gap 11 2 - 15 mmol/L [facility] BUN 15 6 - 25 mg/dL [facility] Creatinine 0.72 0.60 - 1.10 mg/dL [facility] Glucose 87 70 - 199 mg/dL [facility] Comment: Interpretive Data Fasting glucose >/= 126 [...] 2022. Calcium 8.2(L) 8.5 - 10.3 mg/dL [facility] Bilirubin, total 0.8 0.1 - 1.2 mg/dL [facility] Protein, pl 6.2(L) 6.5 - 8.5 g/dL [facility] Albumin 2.9(L) 3.5 - 5.0 g/dL [facility] Alk phos 235(H) 40 - 130 Units/L [facility] ALT 19 7 - 45 Units/L [facility] AST 51(H) 10 - 45 Units/L [facility] Blood 03/06/2024 10:0 5 PM PROFESSOR OF HISTORY 03/06/2024 11:51 PM PROFESSOR OF HISTORY Krysten Cohn MD LAB BLOOD ORDERABLES Final Result [facility] [place] [address] * POCT glucose (03/06/2024 7:31 PM PROFESSOR OF HISTORY) Glucose, POC 123 70 - 199 mg/dL Blood 03/06/2024 7:31 PM PROFESSOR OF HISTORY 03/06/2024 7:31 PM PROFESSOR OF HISTORY us Krysten Cohn MD LAB POCT ORDERABLES - DEVICE Final Result Performing Organization Address City/[facility] Co de Phone Number [facility] [place] [address] * POCT glucose (03/06/2024 5:46 PM PROFESSOR OF HISTORY) Glucose, POC 91 70 - 199 mg/dL Blood 03/06/2024 5:46 PM PROFESSOR OF HISTORY 03/06/2024 5:46 PM PROFESSOR OF HISTORY Krysten Cohn MD LAB POCT ORDERABLES - DEVICE Final Result Performing Organization Address [facility] Co de Phone Number [facility] [place] [address] * POCT glucose (03/06/2024 11:42 AM PROFESSOR OF HISTORY) Glucose, POC 99 70 - 199 mg/dL Blood 03/06/2024 11:4 2 AM PROFESSOR OF HISTORY 03/06/2024 11:42 AM PROFESSOR OF HISTORY Krysten Cohn MD LAB POCT ORDERABLES - DEVICE Final Result Performing Organization Address [facility] Co de Phone Number [facility] [place] [address] * POCT glucose (03/06/2024 8:47 AM PROFESSOR OF HISTORY) Glucose, POC 89 70 - 199 mg/dL Blood 03/06/2024 8:47 AM PROFESSOR OF HISTORY 03/06/2024 8:47 AM PROFESSOR OF HISTORY Krysten Cohn MD LAB POCT ORDERABLES - DEVICE Final Result Performing Organization Address [facility] [place] [address] * Protime-INR (03/05/2024 10:53 PM PROFESSOR OF HISTORY) PT 12.7 9.7 - 13.0 sec INR 1.17 0.90 - 1.20 [facility] Comment: Interpretive data Oral anticoagulant therapeutic ranges: Venous thromboembolism prophylaxis or treatment: 2.0-3.0 CARDIOLOGY Standard range: 2.0-3.0 High-intensity range: 2.5-3.5 Refer to indication-specific guidelines for appropriate target ranges for prosthetic heart valve replacement. Current interpretive data was last revised on 2019. Blood 03/05/2024 10:5 3 PM PROFESSOR OF HISTORY 03/05/2024 11:20 PM PROFESSOR OF HISTORY Nolvia Renner MD LAB BLOOD ORDERABLES F inal Result Performing Organization Address [facility] [place] [address] * POCT glucose (03/05/2024 8:00 PM PROFESSOR OF HISTORY) Glucose, POC 105 70 - 199 mg/dL Blood 03/05/2024 8:00 PM PROFESSOR OF HISTORY 03/05/2024 8:00 PM PROFESSOR OF HISTORY us Krysten Cohn MD LAB POCT ORDERABLES - DEVICE Final Result Performing Organization Address City/[facility]/ZIP Co de Phone Number [facility] [place] [address] * eGFR (03/05/2024 7:52 PM PROFESSOR OF HISTORY) eGFR >90 >=60 mL/min/1. 73 m2 Comment: [...] last reviewed 2021. Blood 03/05/2024 7:52 PM PROFESSOR OF HISTORY 03/05/2024 10:21 PM PROFESSOR OF HISTORY us Krysten Cohn MD LAB BLOOD ORDERABLES Final Result Performing Organization Address City/[facility]/ZIP Co de Phone Number [facility] DEY [facility] Department [place] [address] * (ABNORMAL) Differential, auto (03/05/2024 7:52 PM PROFESSOR OF HISTORY) Neutrophil abs 12.6(H) 1.5 - 6.5 K/cumm Imm gran abs 0.8(H) 0.0 - 0.1 K/cumm [facility] Lymphocyte abs 2.4 0.8 - 3.3 K/cumm [facility] Monocyte abs 0.9(H) 0.2 - 0.8 K/cumm [facility] Eosinophil abs 0.1 0.0 - 0.5 K/cumm [facility] Basophil abs 0.1 0.0 - 0.1 K/cumm [facility] Neutrophil pct 74.5 % [facility] Comment: Interpretive Data Percent cell count reference ranges are not reported, since discordance with absolute values may lead to misinterpretation of CBC data. Current Interpretive Data was last revised on 2017. Imm gran pct 4.7 % [facility] Comment: Interpretive Data Percent cell count reference ranges are not reported, since discordance with absolute values may lead to misinterpretation of CBC data. Current Interpretive Data was last revised on 2017. Lymphocyte pct 14.2 % [facility] Comment: Interpretive Data Percent cell count reference ranges are not reported, since discordance with absolute values may lead to misinterpretation of CBC data. Current Interpretive Data was last revised on 2017. Monocyte pct 5.4 % [facility] Comment: Interpretive Data Percent cell count reference ranges are not reported, since discordance with absolute values may lead to misinterpretation of CBC data. Current Interpretive Data was last revised on 2017. Eosinophil pct 0.7 % [facility] Comment: Interpretive Data Percent cell count reference ranges are not reported, since discordance with absolute values may lead to misinterpretation of CBC data. Current Interpretive Data was last revised on 2017. Basophil pct 0.5 % [facility] Comment: Interpretive Data Percent cell count reference ranges are not reported, since discordance with absolute values may lead to misinterpretation of CBC data. Current Interpretive Data was last revised on 2017. Blood 03/05/2024 7:52 PM PROFESSOR OF HISTORY 03/05/2024 10:23 PM PROFESSOR OF HISTORY us Krysten Cohn MD LAB BLOOD ORDERABLES Final Result [facility] One [facility] Department [place] [address] * (ABNORMAL) CBC with auto differential (03/05/2024 7:52 PM PROFESSOR OF HISTORY) Pathologist [facility] WBC 16.9(H) 3.8 - 9.9 K/cumm Hgb 9.2(L) 11.9 - 15.5 g/dL [facility] Hct 28.9(L) 35.6 - 45.5 % [facility] Plt 364 150 - 400 K/cumm [facility] MPV 10.8 9.1 - 12.3 fL [facility] RBC 2.67(L) 3.90 - 5.20 M/cumm [facility] MCV 108.2(H) 81.3 - 96.4 fL [facility] MCH 34.5(H) 27.1 - 33.3 pg [facility] MCHC 31.8(L) 32.3 - 35.7 g/dL [facility] RDW CV 16.8(H) 11.1 - 14.9 % [facility] RDW SD 61.3(H) 35.7 - 48.1 fL [facility] NRBC abs 0.03(H) 0.00 - 0.01 K/cumm [facility] Blood 03/05/2024 7:52 PM PROFESSOR OF HISTORY 03/05/2024 10:23 PM PROFESSOR OF HISTORY us Krysten Cohn MD LAB BLOOD ORDERABLES Final Result [facility] One [facility] Department [place] [address] * Phosphorus (03/05/2024 7:52 PM PROFESSOR OF HISTORY) Pathologist [facility] Phosphorus, pl 2.3 2.3 - 4.5 mg/dL Blood 03/05/2024 7:52 PM PROFESSOR OF HISTORY 03/05/2024 10:21 PM PROFESSOR OF HISTORY us Krysten Cohn MD LAB BLOOD ORDERABLES Final Result [facility] Department [place] [address] * Magnesium (03/05/2024 7:52 PM PROFESSOR OF HISTORY) [facility] Magnesium 1.5 1.4 - 2.5 mg/dL Blood 03/05/2024 7:52 PM PROFESSOR OF HISTORY 03/05/2024 10:21 PM PROFESSOR OF HISTORY Krysten Cohn MD LAB BLOOD ORDERABLES Final Result [facility] Department [place] [address] * (ABNORMAL) Comprehensive metabolic panel (03/05/2024 7:52 PM PROFESSOR OF HISTORY) [facility] Sodium 142 135 - 145 mmol/L Potassium, pl 3.4 3.3 - 4.9 mmol/L [facility] Chloride 99 97 - 110 mmol/L [facility] CO2 29 22 - 32 mmol/L [facility] Anion gap 14 2 - 15 mmol/L [facility] BUN 18 6 - 25 mg/dL [facility] Creatinine 0.68 0.60 - 1.10 mg/dL [facility] Glucose 96 70 - 199 mg/dL [facility] Comment: Interpretive Data Fasting glucose >/= 126 [...] 2022. Calcium 8.1(L) 8.5 - 10.3 mg/dL [facility] Bilirubin, total 0.9 0.1 - 1.2 mg/dL [facility] Protein, pl 6.5 6.5 - 8.5 g/dL [facility] Albumin 3.2(L) 3.5 - 5.0 g/dL [facility] Alk phos 267(H) 40 - 130 Units/L [facility] ALT 40 7 - 45 Units/L [facility] AST 78(H) 10 - 45 Units/L [facility] Blood 03/05/2024 7:52 PM PROFESSOR OF HISTORY 03/05/2024 10:21 PM PROFESSOR OF HISTORY us Krysten Cohn MD LAB BLOOD ORDERABLES Final Result [facility] [place] [address] * POCT glucose (03/05/2024 5:07 PM PROFESSOR OF HISTORY) Glucose, POC 100 70 - 199 mg/dL Blood 03/05/2024 5:07 PM PROFESSOR OF HISTORY 03/05/2024 5:07 PM PROFESSOR OF HISTORY us Krysten Cohn MD LAB POCT ORDERABLES - DEVICE Final Result Performing Organization Address City/[facility]/ZIP Co de Phone Number [facility] [place] [address] * POCT glucose (03/05/2024 11:39 AM PROFESSOR OF HISTORY) Glucose, POC 121 70 - 199 mg/dL Blood 03/05/2024 11:3 9 AM PROFESSOR OF HISTORY 03/05/2024 11:39 AM PROFESSOR OF HISTORY us Krysten Cohn MD LAB POCT ORDERABLES - DEVICE Final Result Performing Organization Address City/[facility]/ZIP Co de Phone Number [facility] [place] [address] * POCT glucose (03/05/2024 8:03 AM PROFESSOR OF HISTORY) Glucose, POC 119 70 - 199 mg/dL Blood 03/05/2024 8:03 AM PROFESSOR OF HISTORY 03/05/2024 8:03 AM PROFESSOR OF HISTORY Krysten Cohn MD LAB POCT ORDERABLES - DEVICE Final Result Performing Organization Address [facility] de Phone Number [facility] [place] [address] * eGFR (2024 10:39 PM PROFESSOR OF HISTORY) Pathologist [facility] eGFR >90 >=60 mL/min/1. 73 m2 Comment: [...] reviewed 2021. Blood 2024 10:3 9 PM PROFESSOR OF HISTORY 2024 11:44 PM PROFESSOR OF HISTORY us Krysten Cohn MD LAB BLOOD ORDERABLES Final Result Performing Organization Address [facility] Co de Phone Number [facility] Department [place] [address] * (ABNORMAL) Differential, auto (2024 10:39 PM PROFESSOR OF HISTORY) Pathologist [facility] Neutrophil abs 12.9(H) 1.5 - 6.5 K/cumm Imm gran abs 1.3(H) 0.0 - 0.1 K/cumm [facility] Lymphocyte abs 2.3 0.8 - 3.3 K/cumm [facility] Monocyte abs 1.0(H) 0.2 - 0.8 K/cumm [facility] Eosinophil abs 0.1 0.0 - 0.5 K/cumm [facility] Basophil abs 0.1 0.0 - 0.1 K/cumm [facility] Neutrophil pct 73.1 % [facility] Comment: Interpretive Data Percent cell count reference ranges are not reported, since discordance with absolute values may lead to misinterpretation of CBC data. Current Interpretive Data was last revised on 2017. Imm gran pct 7.4 % [facility] Comment: Interpretive Data Percent cell count reference ranges are not reported, since discordance with absolute values may lead to misinterpretation of CBC data. Current Interpretive Data was last revised on 2017. Lymphocyte pct 12.8 % [facility] Comment: Interpretive Data Percent cell count reference ranges are not reported, since discordance with absolute values may lead to misinterpretation of CBC data. Current Interpretive Data was last revised on 2017. Monocyte pct 5.4 % [facility] Comment: Interpretive Data Percent cell count reference ranges are not reported, since discordance with absolute values may lead to misinterpretation of CBC data. Current Interpretive Data was last revised on 2017. Eosinophil pct 0.7 % [facility] Comment: Interpretive Data Percent cell count reference ranges are not reported, since discordance with absolute values may lead to misinterpretation of CBC data. Current Interpretive Data was last revised on 2017. Basophil pct 0.6 % [facility] Comment: Interpretive Data Percent cell count reference ranges are not reported, since discordance with absolute values may lead to misinterpretation of CBC data. Current Interpretive Data was last revised on 2017. Blood 2024 10:3 9 PM PROFESSOR OF HISTORY 2024 11:44 PM PROFESSOR OF HISTORY us Krysten Cohn MD LAB BLOOD ORDERABLES Final Result [facility] One [facility] Department [place] [address] * (ABNORMAL) CBC with auto differential (2024 10:39 PM PROFESSOR OF HISTORY) Pathologist [facility] WBC 17.6(H) 3.8 - 9.9 K/cumm Hgb 8.6(L) 11.9 - 15.5 g/dL [facility] Hct 27.3(L) 35.6 - 45.5 % [facility] Plt 305 150 - 400 K/cumm [facility] MPV 10.6 9.1 - 12.3 fL [facility] RBC 2.51(L) 3.90 - 5.20 M/cumm [facility] MCV 108.8(H) 81.3 - 96.4 fL [facility] MCH 34.3(H) 27.1 - 33.3 pg [facility] MCHC 31.5(L) 32.3 - 35.7 g/dL [facility] RDW CV 16.6(H) 11.1 - 14.9 % [facility] RDW SD 60.0(H) 35.7 - 48.1 fL [facility] NRBC abs 0.06(H) 0.00 - 0.01 K/cumm [facility] Blood 2024 10:3 9 PM PROFESSOR OF HISTORY 2024 11:44 PM PROFESSOR OF HISTORY us Krysten Cohn MD LAB BLOOD ORDERABLES Final Result [facility] One [facility] Department [place] [address] * Protime-INR (2024 10:39 PM PROFESSOR OF HISTORY) Pathologist [facility] PT 11.8 9.7 - 13.0 sec INR 1.09 0.90 - 1.20 [facility] Comment: Interpretive data Oral anticoagulant therapeutic ranges: Venous thromboembolism prophylaxis or treatment: 2.0-3.0 CARDIOLOGY Standard range: 2.0-3.0 High-intensity range: 2.5-3.5 Refer to indication-specific guidelines for appropriate target ranges for prosthetic heart valve replacement. Current interpretive data was last revised on 2019. Blood 2024 10:3 9 PM PROFESSOR OF HISTORY 03/05/2024 12:06 AM PROFESSOR OF HISTORY Krysten Cohn MD LAB BLOOD ORDERABLES Final Result Performing Organization Address [facility] de Phone Number [facility] [place] [address] * Phosphorus (2024 10:39 PM PROFESSOR OF HISTORY) [facility] Phosphorus, pl 2.3 2.3 - 4.5 mg/dL Blood 2024 10:3 9 PM PROFESSOR OF HISTORY 2024 11:44 PM PROFESSOR OF HISTORY us Krysten Cohn MD LAB BLOOD ORDERABLES Final Result Performing Organization Address [facility] de Phone Number [facility] Department [place] [address] * (ABNORMAL) Magnesium (2024 10:39 PM PROFESSOR OF HISTORY) [facility] Magnesium 1.3(L) 1.4 - 2.5 mg/dL Blood 2024 10:3 9 PM PROFESSOR OF HISTORY 2024 11:44 PM PROFESSOR OF HISTORY Krysten Cohn MD LAB BLOOD ORDERABLES Final Result Performing Organization Address [facility] de Phone Number [facility] [place] [address] * (ABNORMAL) Comprehensive metabolic panel (2024 10:39 PM PROFESSOR OF HISTORY) [facility] Sodium 140 135 - 145 mmol/L Potassium, pl 3.2(L) 3.3 - 4.9 mmol/L [facility] Chloride 100 97 - 110 mmol/L [facility] CO2 28 22 - 32 mmol/L [facility] Anion gap 12 2 - 15 mmol/L [facility] BUN 18 6 - 25 mg/dL [facility] Creatinine 0.63 0.60 - 1.10 mg/dL [facility] Glucose 112 70 - 199 mg/dL [facility] Comment: Interpretive Data Fasting glucose >/= 126 [...] 2022. Calcium 8.0(L) 8.5 - 10.3 mg/dL [facility] Bilirubin, total 0.9 0.1 - 1.2 mg/dL [facility] Protein, pl 6.1(L) 6.5 - 8.5 g/dL [facility] Albumin 2.7(L) 3.5 - 5.0 g/dL [facility] Alk phos 235(H) 40 - 130 Units/L [facility] ALT 28 7 - 45 Units/L [facility] AST 110(H) 10 - 45 Units/L [facility] Blood 2024 10:3 9 PM PROFESSOR OF HISTORY 2024 11:44 PM PROFESSOR OF HISTORY us Krysten Cohn MD LAB BLOOD ORDERABLES Final Result Performing Organization Address City/State/[facility] Co de Phone Number [facility] One [facility] [place] [address] * POCT glucose (2024 8:09 PM PROFESSOR OF HISTORY) [facility] Glucose, POC 102 70 - 199 mg/dL Blood 2024 8:09 PM PROFESSOR OF HISTORY 2024 8:09 PM PROFESSOR OF HISTORY us Krysten Cohn MD LAB POCT ORDERABLES - DEVICE Final Result Performing Organization Address City/[facility]/ZIP Co de Phone Number [facility] [place] [address] * POCT glucose (2024 4:43 PM PROFESSOR OF HISTORY) Glucose, POC 91 70 - 199 mg/dL Blood 2024 4:43 PM PROFESSOR OF HISTORY 2024 4:43 PM PROFESSOR OF HISTORY us Krysten Cohn MD LAB POCT ORDERABLES - DEVICE Final Result Performing Organization Address [facility] [place] [address] * POCT glucose (2024 12:06 PM PROFESSOR OF HISTORY) Glucose, POC 133 70 - 199 mg/dL Blood 2024 12:0 6 PM PROFESSOR OF HISTORY 2024 12:06 PM PROFESSOR OF HISTORY us Krysten Cohn MD LAB POCT ORDERABLES - DEVICE Final Result Performing Organization Address [facility] Co de Phone Number [facility] [place] [address] * POCT glucose (2024 8:37 AM PROFESSOR OF HISTORY) Glucose, POC 141 70 - 199 mg/dL Blood 2024 8:37 AM PROFESSOR OF HISTORY 2024 8:37 AM PROFESSOR OF HISTORY us Krysten Cohn MD LAB POCT ORDERABLES - DEVICE Final Result Performing Organization Address City/[facility] [place] [address] * eGFR (03/03/2024 10:26 PM PROFESSOR OF HISTORY) eGFR >90 >=60 mL/min/1. 73 m2 Comment: [...] reviewed 2021. Blood 03/03/2024 10:2 6 PM PROFESSOR OF HISTORY 2024 12:35 AM PROFESSOR OF HISTORY us Krysten Cohn MD LAB BLOOD ORDERABLES Final Result [facility] One [facility] [place] [address] * (ABNORMAL) CBC with auto differential (03/03/2024 10:26 PM PROFESSOR OF HISTORY) WBC 18.2(H) 3.8 - 9.9 K/cumm Hgb 8.3(L) 11.9 - 15.5 g/dL [facility] Hct 25.7(L) 35.6 - 45.5 % [facility] Plt 276 150 - 400 K/cumm [facility] MPV 10.8 9.1 - 12.3 fL [facility] RBC 2.44(L) 3.90 - 5.20 M/cumm [facility] MCV 105.3(H) 81.3 - 96.4 fL [facility] MCH 34.0(H) 27.1 - 33.3 pg [facility] MCHC 32.3 32.3 - 35.7 g/dL [facility] RDW CV 15.8(H) 11.1 - 14.9 % [facility] RDW SD 59.4(H) 35.7 - 48.1 fL [facility] NRBC abs 0.19(H) 0.00 - 0.01 K/cumm [facility] Blood 03/03/2024 10:2 6 PM PROFESSOR OF HISTORY 2024 1:21 AM PROFESSOR OF HISTORY us Krysten Cohn MD LAB BLOOD ORDERABLES Final Result [facility] One [facility] [place] [address] * (ABNORMAL) Manual Differential (03/03/2024 10:26 PM PROFESSOR OF HISTORY) Differential Manual Cells Counted 116 [facility] Neutrophil abs 14.0(H) 1.5 - 6.5 K/cumm [facility] Imm gran abs 0.8(H) 0.0 - 0.1 K/cumm [facility] Lymphocyte abs 2.5 0.8 - 3.3 K/cumm [facility] Monocyte abs 0.8 0.2 - 0.8 K/cumm [facility] Basophil abs 0.2(H) 0.0 - 0.1 K/cumm [facility] Neutrophil pct 76.7 % [facility] Comment: Interpretive Data Percent cell count reference ranges are not reported, since discordance with absolute values may lead to misinterpretation of CBC data. Current Interpretive Data was last revised on 2017. Lymphocyte pct 13.8 % [facility] Comment: Interpretive Data Percent cell count reference ranges are not reported, since discordance with absolute values may lead to misinterpretation of CBC data. Current Interpretive Data was last revised on 2017. Monocyte pct 4.3 % [facility] Comment: Interpretive Data Percent cell count reference ranges are not reported, since discordance with absolute values may lead to misinterpretation of CBC data. Current Interpretive Data was last revised on 2017. Basophil pct 0.9 % [facility] Comment: Interpretive Data Percent cell count reference ranges are not reported, since discordance with absolute values may lead to misinterpretation of CBC data. Current Interpretive Data was last revised on 2017. Myelocyte pct 4.3 % [facility] RBC morphology Present(A) [facility] Anisocytosis Marked(A) [facility] Macrocytes > 15/HPF(A) [facility] Platelet estimate Adequate [facility] Blood 03/03/2024 10:2 6 PM PROFESSOR OF HISTORY 2024 1:25 AM PROFESSOR OF HISTORY Krysten Cohn MD LAB BLOOD ORDERABLES Final Result Performing Organization Address [facility] de Phone Number [facility] [place] [address] * Protime-INR (03/03/2024 10:26 PM PROFESSOR OF HISTORY) PT 12.2 9.7 - 13.0 sec INR 1.13 0.90 - 1.20 [facility] Comment: Interpretive data Oral anticoagulant therapeutic ranges: Venous thromboembolism prophylaxis or treatment: 2.0-3.0 CARDIOLOGY Standard range: 2.0-3.0 High-intensity range: 2.5-3.5 Refer to indication-specific guidelines for appropriate target ranges for prosthetic heart valve replacement. Current interpretive data was last revised on 2019. Blood 03/03/2024 10:2 6 PM PROFESSOR OF HISTORY 2024 12:35 AM PROFESSOR OF HISTORY us Krysten Cohn MD LAB BLOOD ORDERABLES Final Result Performing Organization Address [facility] Co de Phone Number [facility] [place] [address] * (ABNORMAL) Phosphorus (03/03/2024 10:26 PM PROFESSOR OF HISTORY) Phosphorus, pl 2.2(L) 2.3 - 4.5 mg/dL Blood 03/03/2024 10:2 6 PM PROFESSOR OF HISTORY 2024 12:35 AM PROFESSOR OF HISTORY Krysten Cohn MD LAB BLOOD ORDERABLES Final Result Performing Organization Address City/[facility]/ZIP Co de Phone Number [facility] Department [place] [address] * Magnesium (03/03/2024 10:26 PM PROFESSOR OF HISTORY) Pathologist [facility] Magnesium 1.5 1.4 - 2.5 mg/dL Blood 03/03/2024 10:2 6 PM PROFESSOR OF HISTORY 2024 12:35 AM PROFESSOR OF HISTORY Krysten Cohn MD LAB BLOOD ORDERABLES Final Result Performing Organization Address [facility] de Phone Number [facility] Department [place] [address] * (ABNORMAL) Comprehensive metabolic panel (03/03/2024 10:26 PM PROFESSOR OF HISTORY) [facility] Sodium 143 135 - 145 mmol/L Potassium, pl 3.5 3.3 - 4.9 mmol/L [facility] Chloride 102 97 - 110 mmol/L [facility] CO2 28 22 - 32 mmol/L [facility] Anion gap 13 2 - 15 mmol/L [facility] BUN 28(H) 6 - 25 mg/dL [facility] Creatinine 0.68 0.60 - 1.10 mg/dL [facility] Glucose 103 70 - 199 mg/dL [facility] Comment: Interpretive Data Fasting glucose >/= 126 [...] 2022. Calcium 8.0(L) 8.5 - 10.3 mg/dL [facility] Bilirubin, total 0.7 0.1 - 1.2 mg/dL [facility] Protein, pl 5.9(L) 6.5 - 8.5 g/dL [facility] Albumin 2.7(L) 3.5 - 5.0 g/dL [facility] Alk phos 216(H) 40 - 130 Units/L [facility] ALT 42 7 - 45 Units/L [facility] AST 202(H) 10 - 45 Units/L [facility] Blood 03/03/2024 10:2 6 PM PROFESSOR OF HISTORY 2024 12:35 AM PROFESSOR OF HISTORY us Krysten Cohn MD LAB BLOOD ORDERABLES Final Result Performing Organization Address City/[facility] Co de Phone Number [facility] Department [place] [address] * POCT glucose (03/03/2024 8:17 PM PROFESSOR OF HISTORY) Glucose, POC 146 70 - 199 mg/dL Blood 03/03/2024 8:17 PM PROFESSOR OF HISTORY 03/03/2024 8:17 PM PROFESSOR OF HISTORY us Krysten Cohn MD LAB POCT ORDERABLES - DEVICE Final Result Performing Organization Address City/[facility] Co de Phone Number [facility] [place] [address] * XR Chest 1 View (03/03/2024 7:14 PM PROFESSOR OF HISTORY) Anatomical Region Laterality Modality Body, Chest N/A Computed Radiogr aphy 2024 11:3 2 AM PROFESSOR OF HISTORY Impressions 2024 11:32 AM PROFESSOR OF HISTORY Comparison 02/23/2024 5:17 PM. Right internal jugular central venous catheter has been removed. Minimal right basilar atelectasis or scarring again seen. Mild elevation the right hemidiaphragm again noted. The lungs otherwise are clear without focal consolidation or pulmonary edema. No pneumothorax or pleural effusion seen. Electronically signed by: Nolberto Garsia M.D. Narrative 2024 11:32 AM PROFESSOR OF HISTORY EXAMINATION: 1 view chest radiograph Procedure Note [...] Result * POCT glucose (03/03/2024 5:47 PM PROFESSOR OF HISTORY) Glucose, POC 120 70 - 199 mg/dL Blood 03/03/2024 5:47 PM PROFESSOR OF HISTORY 03/03/2024 5:47 PM PROFESSOR OF HISTORY Krysten Cohn MD LAB POCT ORDERABLES - DEVICE Final Result Performing Organization Address [facility] de Phone Number [facility] [place] [address] * POCT glucose (03/03/2024 12:17 PM PROFESSOR OF HISTORY) Glucose, POC 149 70 - 199 mg/dL Blood 03/03/2024 12:1 7 PM PROFESSOR OF HISTORY 03/03/2024 12:17 PM PROFESSOR OF HISTORY Krysten Cohn MD LAB POCT ORDERABLES - DEVICE Final Result Performing Organization Address [facility] Co de Phone Number [facility] [place] [address] * POCT glucose (03/03/2024 8:09 AM PROFESSOR OF HISTORY) Glucose, POC 118 70 - 199 mg/dL Blood 03/03/2024 8:09 AM PROFESSOR OF HISTORY 03/03/2024 8:09 AM PROFESSOR OF HISTORY us Krysten Cohn MD LAB POCT ORDERABLES - DEVICE Final Result Performing Organization Address City/[facility] Co de Phone Number [facility] [place] [address] * POCT glucose (03/02/2024 11:51 PM PROFESSOR OF HISTORY) Glucose, POC 112 70 - 199 mg/dL Blood 03/02/2024 11:5 1 PM PROFESSOR OF HISTORY 03/02/2024 11:51 PM PROFESSOR OF HISTORY us Krysten Cohn MD LAB POCT ORDERABLES - DEVICE Final Result Performing Organization Address [facility] Co de Phone Number [facility] [place] [address] * Critical Care (03/02/2024 9:58 PM PROFESSOR OF HISTORY) Narrative Gloria Schwarz MD - 03/02/2024 9:58 PM PROFESSOR OF HISTORY Gloria Schwarz MD 03/02/2024 9:59 PM Critical [...] plan with the patient's team and other medical/communications consultant staff. This time was in addition to and separate from care provided by other practitioners on this day of service. us Gloria Schwarz MD IN CLINIC/BEDSIDE ORDER DELFINA Final Result * Wound Care (03/02/2024 9:07 PM PROFESSOR OF HISTORY) Narrative Nafisa Sanchez MD - 03/02/2024 9:07 PM PROFESSOR OF HISTORY Nafisa Sanchez MD 03/02/2024 9:27 PM Wound Care Date/Time: 03/02/2024 9:07 PM Performed by: Nafisa Sanchez MD Authorized by: Nafisa Sanchez MD Consent: Consent obtained: Written Consent given by: Patient Risks, benefits, and alternatives were discussed: yes Risks discussed: Bleeding, infection and incomplete drainage Alternatives discussed: Delayed treatment and no treatment [place] protocol: Procedure explained and questions answered to [...] - Final * Protime-INR (03/02/2024 8:45 PM PROFESSOR OF HISTORY) PT 12.6 9.7 - 13.0 sec INR 1.16 0.90 - 1.20 [facility] Comment: Interpretive data Oral anticoagulant therapeutic ranges: Venous thromboembolism prophylaxis or treatment: 2.0-3.0 CARDIOLOGY Standard range: 2.0-3.0 High-intensity range: 2.5-3.5 Refer to indication-specific guidelines for appropriate target ranges for prosthetic heart valve replacement. Current interpretive data was last revised on 2019. Blood 03/02/2024 8:45 PM PROFESSOR OF HISTORY 03/02/2024 9:00 PM PROFESSOR OF HISTORY us Krysten Cohn MD LAB BLOOD ORDERABLES Final Result [facility] [place] [address] * POCT glucose (03/02/2024 8:01 PM PROFESSOR OF HISTORY) Glucose, POC 107 70 - 199 mg/dL Blood 03/02/2024 8:01 PM PROFESSOR OF HISTORY 03/02/2024 8:01 PM PROFESSOR OF HISTORY us Krysten Cohn MD LAB POCT ORDERABLES - DEVICE Final Result Performing Organization Address City/[facility] Co de Phone Number [facility] [place] [address] * eGFR (03/02/2024 7:12 PM PROFESSOR OF HISTORY) eGFR 67 >=60 mL/min/1. 73 m2 Comment: [...] last reviewed 2021. Blood 03/02/2024 7:12 PM PROFESSOR OF HISTORY 03/02/2024 7:25 PM PROFESSOR OF HISTORY us Krysten Cohn MD LAB BLOOD ORDERABLES Final Result [facility] One [facility] Department [place] [address] * (ABNORMAL) Differential, auto (03/02/2024 7:12 PM PROFESSOR OF HISTORY) Neutrophil abs 13.0(H) 1.5 - 6.5 K/cumm Imm gran abs 3.0(H) 0.0 - 0.1 K/cumm [facility] Lymphocyte abs 2.3 0.8 - 3.3 K/cumm [facility] Monocyte abs 1.3(H) 0.2 - 0.8 K/cumm [facility] Eosinophil abs 0.1 0.0 - 0.5 K/cumm [facility] Basophil abs 0.1 0.0 - 0.1 K/cumm [facility] Neutrophil pct 65.9 % [facility] Comment: Confirmed by smear review Interpretive Data Percent cell count reference ranges are not reported, since discordance with absolute values may lead to misinterpretation of CBC data. Current Interpretive Data was last revised on 2017. Imm gran pct 15.1 % [facility] Comment: Interpretive Data Percent cell count reference ranges are not reported, since discordance with absolute values may lead to misinterpretation of CBC data. Current Interpretive Data was last revised on 2017. Lymphocyte pct 11.6 % [facility] Comment: Interpretive Data Percent cell count reference ranges are not reported, since discordance with absolute values may lead to misinterpretation of CBC data. Current Interpretive Data was last revised on 2017. Monocyte pct 6.6 % [facility] Comment: Interpretive Data Percent cell count reference ranges are not reported, since discordance with absolute values may lead to misinterpretation of CBC data. Current Interpretive Data was last revised on 2017. Eosinophil pct 0.4 % [facility] Comment: Interpretive Data Percent cell count reference ranges are not reported, since discordance with absolute values may lead to misinterpretation of CBC data. Current Interpretive Data was last revised on 2017. Basophil pct 0.4 % [facility] Comment: Interpretive Data Percent cell count reference ranges are not reported, since discordance with absolute values may lead to misinterpretation of CBC data. Current Interpretive Data was last revised on 2017. Blood 03/02/2024 7:12 PM PROFESSOR OF HISTORY 03/02/2024 7:25 PM PROFESSOR OF HISTORY us Krysten Cohn MD LAB BLOOD ORDERABLES Final Result [facility] One [facility] [place] [address] * (ABNORMAL) CBC with auto differential (03/02/2024 7:12 PM PROFESSOR OF HISTORY) WBC 19.6(H) 3.8 - 9.9 K/cumm Hgb 8.9(L) 11.9 - 15.5 g/dL [facility] Hct 27.5(L) 35.6 - 45.5 % [facility] Plt 219 150 - 400 K/cumm [facility] MPV 10.7 9.1 - 12.3 fL [facility] RBC 2.64(L) 3.90 - 5.20 M/cumm [facility] MCV 104.2(H) 81.3 - 96.4 fL [facility] MCH 33.7(H) 27.1 - 33.3 pg [facility] MCHC 32.4 32.3 - 35.7 g/dL [facility] RDW CV 15.5(H) 11.1 - 14.9 % [facility] RDW SD 58.7(H) 35.7 - 48.1 fL [facility] NRBC abs 0.43(H) 0.00 - 0.01 K/cumm [facility] Blood 03/02/2024 7:12 PM PROFESSOR OF HISTORY 03/02/2024 7:25 PM PROFESSOR OF HISTORY Krysten Cohn MD LAB BLOOD ORDERABLES Final Result Performing Organization Address [facility] de Phone Number [facility] [place] [address] * Phosphorus (03/02/2024 7:12 PM PROFESSOR OF HISTORY) [facility] Phosphorus, pl 2.6 2.3 - 4.5 mg/dL Blood 03/02/2024 7:12 PM PROFESSOR OF HISTORY 03/02/2024 7:25 PM PROFESSOR OF HISTORY Krysten Cohn MD LAB BLOOD ORDERABLES Final Result Performing Organization Address [facility] de Phone Number [facility] [place] [address] * Magnesium (03/02/2024 7:12 PM PROFESSOR OF HISTORY) [facility] Magnesium 2.2 1.4 - 2.5 mg/dL Blood 03/02/2024 7:12 PM PROFESSOR OF HISTORY 03/02/2024 7:25 PM PROFESSOR OF HISTORY Krysten Cohn MD LAB BLOOD ORDERABLES Final Result Performing Organization Address [facility] [place] [place] [address] * (ABNORMAL) Comprehensive metabolic panel (03/02/2024 7:12 PM PROFESSOR OF HISTORY) [facility] Sodium 139 135 - 145 mmol/L Potassium, pl 3.5 3.3 - 4.9 mmol/L [facility] Chloride 97 97 - 110 mmol/L [facility] CO2 30 22 - 32 mmol/L [facility] Anion gap 12 2 - 15 mmol/L [facility] BUN 39(H) 6 - 25 mg/dL [facility] Creatinine 1.00 0.60 - 1.10 mg/dL [facility] Glucose 140 70 - 199 mg/dL [facility] Comment: Interpretive Data Fasting glucose >/= 126 [...] 2022. Calcium 8.2(L) 8.5 - 10.3 mg/dL [facility] Bilirubin, total 0.7 0.1 - 1.2 mg/dL [facility] Protein, pl 6.0(L) 6.5 - 8.5 g/dL [facility] Albumin 2.9(L) 3.5 - 5.0 g/dL [facility] Alk phos 259(H) 40 - 130 Units/L [facility] ALT 77(H) 7 - 45 Units/L [facility] AST 512(H) 10 - 45 Units/L [facility] Blood 03/02/2024 7:12 PM PROFESSOR OF HISTORY 03/02/2024 7:25 PM PROFESSOR OF HISTORY Krysten Cohn MD LAB BLOOD ORDERABLES Final Result [facility] One [facility] Department [place] [address] * XR Chest 1 View (03/02/2024 5:39 PM PROFESSOR OF HISTORY) Anatomical Region Laterality Modality Body, Chest N/A Computed Radiogr aphy 03/02/2024 7:36 PM PROFESSOR OF HISTORY Impressions 03/02/2024 7:36 PM PROFESSOR OF HISTORY The current study is compared with the prior radiograph dated 03/01/2024. Right internal jugular central venous catheter tip projects over the superior vena cava. The lungs are clear. There is no focal consolidation, pleural effusion, or pulmonary edema. There is no pneumothorax. Heart size and mediastinal contours are normal. Electronically signed by: Panda Vasquez MD, PHD Narrative 03/02/2024 7:36 PM PROFESSOR OF HISTORY EXAMINATION: 1 view chest radiograph Procedure Note [...] Electronically signed by: Panda Vasquez MD, PHD Krysten Cohn MD IMG XR PROCEDURES Fin al Result * Critical Care (03/02/2024 5:11 PM PROFESSOR OF HISTORY) Narrative Luis Alberto Maya MD PhD - 03/02/2024 5:11 PM PROFESSOR OF HISTORY Luis Alberto Maya MD PhD 03/02/2024 5:13 [...] plan with the ICU team and other medical/communications consultant staff, making frequent assessments and decisions [...] Result * POCT glucose (03/02/2024 3:14 PM PROFESSOR OF HISTORY) Glucose, POC 129 70 - 199 mg/dL Blood 03/02/2024 3:14 PM PROFESSOR OF HISTORY 03/02/2024 3:14 PM PROFESSOR OF HISTORY us Krysten Cohn MD LAB POCT ORDERABLES - DEVICE Final Result Performing Organization Address City/State/[facility] Co mn Phone Number [facility] [place] [address] * eGFR (03/02/2024 2:19 PM PROFESSOR OF HISTORY) eGFR 68 >=60 mL/min/1. 73 m2 Comment: [...] last reviewed 2021. Blood 03/02/2024 2:19 PM PROFESSOR OF HISTORY 03/02/2024 2:34 PM PROFESSOR OF HISTORY Fatmata Golden [employer] LAB BLOOD ORDERABLES Final Result Performing Organization Address City/[facility] Co de Phone Number [facility] [place] [address] * Phosphorus (03/02/2024 2:19 PM PROFESSOR OF HISTORY) [facility] Phosphorus, pl 2.4 2.3 - 4.5 mg/dL Blood 03/02/2024 2:19 PM PROFESSOR OF HISTORY 03/02/2024 2:34 PM PROFESSOR OF HISTORY Fatmata Golden PARENTING SKILL[employer] INSTRUCTOR LAB BLOOD ORDERABLES Final Result Performing Organization Address [facility] Co de Phone Number [facility] [place] [address] * Magnesium (03/02/2024 2:19 PM PROFESSOR OF HISTORY) [facility] Magnesium 1.9 1.4 - 2.5 mg/dL Blood 03/02/2024 2:19 PM PROFESSOR OF HISTORY 03/02/2024 2:34 PM PROFESSOR OF HISTORY Fatmata Va Golden PARENTING SKILL[employer] INSTRUCTOR LAB BLOOD ORDERABLES Final Result Performing Organization Address [facility] [place] [address] * (ABNORMAL) Basic metabolic panel (03/02/2024 2:19 PM PROFESSOR OF HISTORY) [facility] Sodium 140 135 - 145 mmol/L Potassium, pl 3.5 3.3 - 4.9 mmol/L [facility] Chloride 98 97 - 110 mmol/L [facility] CO2 29 22 - 32 mmol/L [facility] Anion gap 13 2 - 15 mmol/L [facility] BUN 40(H) 6 - 25 mg/dL [facility] Creatinine 0.98 0.60 - 1.10 mg/dL [facility] Glucose 133 70 - 199 mg/dL [facility] Comment: Interpretive Data Fasting glucose >/= 126 [...] 2022. Calcium 8.3(L) 8.5 - 10.3 mg/dL [facility] Blood 03/02/2024 2:19 PM PROFESSOR OF HISTORY 03/02/2024 2:34 PM PROFESSOR OF HISTORY Fatmata Golden PARENTING [employer] INSTRUCTOR LAB BLOOD ORDERABLES Final Result Performing Organization Address City/[facility]/ZIP Co de Phone Number [facility] [place] [address] * POCT glucose (03/02/2024 11:11 AM PROFESSOR OF HISTORY) Glucose, POC 106 70 - 199 mg/dL Blood 03/02/2024 11:1 1 AM PROFESSOR OF HISTORY 03/02/2024 11:11 AM PROFESSOR OF HISTORY Krysten Cohn MD LAB POCT ORDERABLES - DEVICE Final Result Performing Organization Address [facility]/ZIP Co de Phone Number [facility] [place] [address] * (ABNORMAL) Blood gas, venous (03/02/2024 8:14 AM PROFESSOR OF HISTORY) pH, Venous 7.47(H) 7.32 - 7.43 PCO2, Venous 36(L) 40 - 50 mmHg [facility] PO2, Venous 36 mmHg [facility] Comment: Interpretive Data No Reference Range Established Current Interpretive Data was last revised on 2017. HCO3 Venous, Calculated 27 20 - 30 mmol/L [facility] BE, venous 3 mmol/L [facility] Comment: Interpretive Data No Reference Range Established Current Interpretive Data was last revised on 2017. Blood 03/02/2024 8:14 AM PROFESSOR OF HISTORY 03/02/2024 8:20 AM PROFESSOR OF HISTORY Krysten Cohn MD LAB BLOOD ORDERABLES Final Result Performing Organization Address City/[facility] Co de Phone Number [facility] [place] [address] * POCT glucose (03/02/2024 7:19 AM PROFESSOR OF HISTORY) Glucose, POC 116 70 - 199 mg/dL Blood 03/02/2024 7:19 AM PROFESSOR OF HISTORY 03/02/2024 7:19 AM PROFESSOR OF HISTORY Krysten Cohn MD LAB POCT ORDERABLES - DEVICE Final Result Performing Organization Address City/[facility] de Phone Number [facility] [place] [address] * (ABNORMAL) Pro B-type natriuretic peptide (03/02/2024 5:12 AM PROFESSOR OF HISTORY) NT-proBNP 22,554(H) <=300 pg/mL Comment: Interpretive Comments: [...] Eur Heart J. 2006:27:330-337. 2. Caleb RW, Kiser AM. J. AM Sierra Cardiol: Cardiovasc Imag. 2009;2: 216- 225. Interpretive Data Last Revised Date: 2017. Blood 03/02/2024 5:12 AM PROFESSOR OF HISTORY 03/02/2024 5:34 AM PROFESSOR OF HISTORY us Angelica ADAMS LAB BLOOD ORDERABLE S Final Result Performing Organization Address [facility] Co de Phone Number [facility] [place] [address] * POCT glucose (03/02/2024 3:09 AM PROFESSOR OF HISTORY) Glucose, POC 107 70 - 199 mg/dL Blood 03/02/2024 3:09 AM PROFESSOR OF HISTORY 03/02/2024 3:09 AM PROFESSOR OF HISTORY us Krysten Cohn MD LAB POCT ORDERABLES - DEVICE Final Result [facility] [place] [address] * Critical Care (03/01/2024 11:50 PM PROFESSOR OF HISTORY) Narrative Gloria Schwarz MD - 03/01/2024 11:50 PM PROFESSOR OF HISTORY Gloria Schwarz MD 03/01/2024 11:53 PM Critical [...] plan with the ICU team and other medical/communications consultant staff, making frequent assessments and decisions [...] Result * POCT glucose (03/01/2024 11:14 PM PROFESSOR OF HISTORY) Glucose, POC 133 70 - 199 mg/dL Blood 03/01/2024 11:1 4 PM PROFESSOR OF HISTORY 03/01/2024 11:14 PM PROFESSOR OF HISTORY us Krysten Cohn MD LAB POCT ORDERABLES - DEVICE Final Result [facility] One [facility] Department [place] [address] * (ABNORMAL) eGFR (03/01/2024 8:36 PM PROFESSOR OF HISTORY) eGFR 58(L) >=60 mL/min/1. 73 m2 Comment: [...] last reviewed 2021. Blood 03/01/2024 8:36 PM PROFESSOR OF HISTORY 03/01/2024 10:04 PM PROFESSOR OF HISTORY us Krysten Cohn MD LAB BLOOD ORDERABLES Final Result [facility] One [facility] [place] [address] * (ABNORMAL) Differential, auto (03/01/2024 8:36 PM PROFESSOR OF HISTORY) Neutrophil abs 12.5(H) 1.5 - 6.5 K/cumm Imm gran abs 3.1(H) 0.0 - 0.1 K/cumm [facility] Lymphocyte abs 2.4 0.8 - 3.3 K/cumm [facility] Monocyte abs 1.6(H) 0.2 - 0.8 K/cumm [facility] Eosinophil abs 0.1 0.0 - 0.5 K/cumm [facility] Basophil abs 0.1 0.0 - 0.1 K/cumm [facility] Neutrophil pct 63.5 % [facility] Comment: Interpretive Data Percent cell count reference ranges are not reported, since discordance with absolute values may lead to misinterpretation of CBC data. Current Interpretive Data was last revised on 2017. Imm gran pct 15.9 % [facility] Comment: Interpretive Data Percent cell count reference ranges are not reported, since discordance with absolute values may lead to misinterpretation of CBC data. Current Interpretive Data was last revised on 2017. Lymphocyte pct 12.0 % [facility] Comment: Interpretive Data Percent cell count reference ranges are not reported, since discordance with absolute values may lead to misinterpretation of CBC data. Current Interpretive Data was last revised on 2017. Monocyte pct 8.0 % [facility] Comment: Interpretive Data Percent cell count reference ranges are not reported, since discordance with absolute values may lead to misinterpretation of CBC data. Current Interpretive Data was last revised on 2017. Eosinophil pct 0.3 % [facility] Comment: Interpretive Data Percent cell count reference ranges are not reported, since discordance with absolute values may lead to misinterpretation of CBC data. Current Interpretive Data was last revised on 2017. Basophil pct 0.3 % [facility] Comment: Interpretive Data Percent cell count reference ranges are not reported, since discordance with absolute values may lead to misinterpretation of CBC data. Current Interpretive Data was last revised on 2017. Blood 03/01/2024 8:36 PM PROFESSOR OF HISTORY 03/01/2024 9:58 PM PROFESSOR OF HISTORY us Krysten Cohn MD LAB BLOOD ORDERABLES Final Result Performing Organization Address City/State/[facility] Co de Phone Number [facility] One [facility] Department [place] [address] * (ABNORMAL) CBC with auto differential (03/01/2024 8:36 PM PROFESSOR OF HISTORY) WBC 19.6(H) 3.8 - 9.9 K/cumm Hgb 8.8(L) 11.9 - 15.5 g/dL [facility] Hct 27.6(L) 35.6 - 45.5 % [facility] Plt 163 150 - 400 K/cumm [facility] MPV 10.8 9.1 - 12.3 fL [facility] RBC 2.66(L) 3.90 - 5.20 M/cumm [facility] MCV 103.8(H) 81.3 - 96.4 fL [facility] MCH 33.1 27.1 - 33.3 pg [facility] MCHC 31.9(L) 32.3 - 35.7 g/dL [facility] RDW CV 15.4(H) 11.1 - 14.9 % [facility] RDW SD 57.7(H) 35.7 - 48.1 fL [facility] NRBC abs 0.10(H) 0.00 - 0.01 K/cumm [facility] Blood 03/01/2024 8:36 PM PROFESSOR OF HISTORY 03/01/2024 9:58 PM PROFESSOR OF HISTORY us Krysten Cohn MD LAB BLOOD ORDERABLES Final Result Performing Organization Address [facility] de Phone Number [facility] [place] [address] * (ABNORMAL) Protime-INR (03/01/2024 8:36 PM PROFESSOR OF HISTORY) PT 18.4(H) 9.7 - 13.0 sec INR 1.69(H) 0.90 - 1.20 [facility] Comment: Interpretive data Oral anticoagulant therapeutic ranges: Venous thromboembolism prophylaxis or treatment: 2.0-3.0 CARDIOLOGY Standard range: 2.0-3.0 High-intensity range: 2.5-3.5 Refer to indication-specific guidelines for appropriate target ranges for prosthetic heart valve replacement. Current interpretive data was last revised on 2019. Blood 03/01/2024 8:36 PM PROFESSOR OF HISTORY 03/01/2024 10:01 PM PROFESSOR OF HISTORY us Krysten Cohn MD LAB BLOOD ORDERABLES Final Result Performing Organization Address [facility] Co de Phone Number [facility] [place] [address] * (ABNORMAL) Phosphorus (03/01/2024 8:36 PM PROFESSOR OF HISTORY) Phosphorus, pl 1.9(L) 2.3 - 4.5 mg/dL Blood 03/01/2024 8:36 PM PROFESSOR OF HISTORY 03/01/2024 9:56 PM PROFESSOR OF HISTORY Krysten Cohn MD LAB BLOOD ORDERABLES Final Result Performing Organization Address [facility] de Phone Number [facility] [place] [address] * Magnesium (03/01/2024 8:36 PM PROFESSOR OF HISTORY) Magnesium 1.6 1.4 - 2.5 mg/dL Blood 03/01/2024 8:36 PM PROFESSOR OF HISTORY 03/01/2024 9:56 PM PROFESSOR OF HISTORY Krysten Cohn MD LAB BLOOD ORDERABLES Final Result Performing Organization Address [facility] de Phone Number [facility] [place] [address] * Blood gas, venous (03/01/2024 8:36 PM PROFESSOR OF HISTORY) Pathologist [facility] pH, Venous 7.42 7.32 - 7.43 PCO2, Venous 44 40 - 50 mmHg [facility] PO2, Venous 35 mmHg [facility] Comment: Interpretive Data No Reference Range Established Current Interpretive Data was last revised on 2017. HCO3 Venous, Calculated 30 20 - 30 mmol/L [facility] BE, venous 4 mmol/L [facility] Comment: Interpretive Data No Reference Range Established Current Interpretive Data was last revised on 2017. Blood 03/01/2024 8:36 PM PROFESSOR OF HISTORY 03/01/2024 10:07 PM PROFESSOR OF HISTORY Krysten Cohn MD LAB BLOOD ORDERABLES Final Result Performing Organization Address [facility] de Phone Number [facility] [place] [address] * (ABNORMAL) Comprehensive metabolic panel (03/01/2024 8:36 PM PROFESSOR OF HISTORY) Sodium 139 135 - 145 mmol/L Potassium, pl 3.4 3.3 - 4.9 mmol/L [facility] Chloride 99 97 - 110 mmol/L [facility] CO2 28 22 - 32 mmol/L [facility] Anion gap 12 2 - 15 mmol/L [facility] BUN 39(H) 6 - 25 mg/dL [facility] Creatinine 1.12(H) 0.60 - 1.10 mg/dL [facility] Glucose 114 70 - 199 mg/dL [facility] Comment: Interpretive Data Fasting glucose >/= 126 [...] 2022. Calcium 8.6 8.5 - 10.3 mg/dL [facility] Bilirubin, total 0.7 0.1 - 1.2 mg/dL [facility] Protein, pl 6.0(L) 6.5 - 8.5 g/dL [facility] Albumin 2.6(L) 3.5 - 5.0 g/dL [facility] Alk phos 270(H) 40 - 130 Units/L [facility] ALT 65(H) 7 - 45 Units/L [facility] AST 440(H) 10 - 45 Units/L [facility] Blood 03/01/2024 8:36 PM PROFESSOR OF HISTORY 03/01/2024 9:56 PM PROFESSOR OF HISTORY us Krysten Cohn MD LAB BLOOD ORDERABLES Final Result [facility] One [facility] Department [place] [address] * XR Chest 1 View (03/01/2024 7:53 PM PROFESSOR OF HISTORY) Anatomical Region Laterality Modality Body, Chest N/A Computed Radiogr aphy 03/02/2024 7:36 AM PROFESSOR OF HISTORY Impressions 03/02/2024 11:01 AM PROFESSOR OF HISTORY The current study is compared with the [...] Nolberto Garsia M.D. Narrative 03/02/2024 11:01 AM PROFESSOR OF HISTORY EXAMINATION: 1 view chest radiograph Procedure Note [...] Result * POCT glucose (03/01/2024 7:11 PM PROFESSOR OF HISTORY) Glucose, POC 111 70 - 199 mg/dL Blood 03/01/2024 7:11 PM PROFESSOR OF HISTORY 03/01/2024 7:11 PM PROFESSOR OF HISTORY Krysten Cohn MD LAB POCT ORDERABLES - DEVICE Final Result Performing Organization Address [facility] Co de Phone Number [facility] One [facility] Department [place] [address] * (ABNORMAL) Troponin I high-sensitivity 6-hour (03/01/2024 4:21 PM PROFESSOR OF HISTORY) Trop I hs 255(C) <=17 ng/L Comment: Previous critical value noted within 48 hours ago. Interpretive Data For further hscTnI resources including the diagnostic algorithm and an aid in interpretation, copy and paste this link: https://bjhlab.testcatalog.org/show/[email or web address]-[email or web address] Current Interpretive Data last revised 2019. Trop I hs pct delta -22(C) % [facility] Trop I hs interp Significa nt(C) [facility] Blood 03/01/2024 4:21 PM PROFESSOR OF HISTORY 03/01/2024 4:33 PM PROFESSOR OF HISTORY Result [facility] Krysten Cohn MD LAB BLOOD ORDERABLES Final Result Performing Organization Address [facility] Co de Phone Number [facility] One [facility] Department [place] [address] * (ABNORMAL) Blood gas, venous (03/01/2024 4:21 PM PROFESSOR OF HISTORY) pH, Venous 7.43 7.32 - 7.43 PCO2, Venous 45 40 - 50 mmHg [facility] PO2, Venous 29 mmHg [facility] Comment: Interpretive Data No Reference Range Established Current Interpretive Data was last revised on 2017. HCO3 Venous, Calculated 31(H) 20 - 30 mmol/L [facility] BE, venous 5 mmol/L [facility] Comment: Interpretive Data No Reference Range Established Current Interpretive Data was last revised on 2017. Blood 03/01/2024 4:21 PM PROFESSOR OF HISTORY 03/01/2024 4:29 PM PROFESSOR OF HISTORY us Krysten Cohn MD LAB BLOOD ORDERABLES Final Result Performing Organization Address [facility] Co de Phone Number [facility] [place] [address] * POCT glucose (03/01/2024 3:18 PM PROFESSOR OF HISTORY) Glucose, POC 155 70 - 199 mg/dL Blood 03/01/2024 3:18 PM PROFESSOR OF HISTORY 03/01/2024 3:18 PM PROFESSOR OF HISTORY Krysten Cohn MD LAB POCT ORDERABLES - DEVICE Final Result Performing Organization Address [facility] de Phone Number [facility] [place] [address] * TRANSTHORACIC ECHO (TTE) LIMITED/FOLLOW UP W LTD DOPPLER/CF W CONTRAST (03/01/2024 3:04 PM PROFESSOR OF HISTORY) Pathologist [facility] LV EF 47 % CARDIOREPORT Anatomical Region Laterality Modality Ultrasound 03/01/2024 2:45 PM PROFESSOR OF HISTORY Narrative 03/01/2024 4:11 PM PROFESSOR OF HISTORY Patient name: Nolvia Branch Date of test: 03/01/2024 Type of test: TTE w/Doppler Hospital #: 0 Date of : 1970 (F) Night Nurse: Behzad Contreras [facility] Referring Physician: KRYSTEN COHN MD Contrast Agent: 1.1 ml Optison Administered, (1.9 ml wasted). Contrast Administered by: Supervised/Interpreted by: Ang Aguilar MD Diagnosis: sob Location: [facility] Reason for test: elevated troponin [...] 2=Hypo 3=Akinetic 4=Dyskin./Aneurysm 0=Not visualized) Parasternal Long [place]:MAS=1 BAS=1 MIL=1 COY=1 Parasternal Short [place]:MAS=1 MIS=1 GA=2 MIL=1 MAL=1 MA=1 Apical 4 Chambers:=1 MIS=1 BIS=2 BAL=1 MAL=1 AL=1 AC=1 Apical 2 Chambers:AI=1 GA=2 BI=2 BA=1 MA=1 AA=1 AC=1 LV Global Longitudinal Strain: -13% (Normal <-17%) RV Global Longitudinal Strain: LV Function: Mild Segmental reduction in LV Ejection Fraction (EF=41-51%); via modified Tapia's. RV Function: Normal Septal Motion: paradoxic Pericardial Effusion: small Atrial Septum: Normal DOPPLER/COLOR FLOW DOPPLER RESULTS: Diastolic Function: Pseudo normal Tricuspid Valve: mild TV regurgitation Pulmonic Valve: Mild IL AV Regurgitation: No AR seen AV Stenosis: AV Area: cm2 AV Pressure Gradient (mmHg): Mean: 0, Peak:0 MV Regurgitation: Mild MR MV Stenosis: MV Area: cm2 MV Pressure Gradient (mmHg): Mean: 0 MV ERO: cm Regurg. Vol.: ml/beat Regurg. Frac.: % PA Pressure: mmHg DOPPLER/COLOR FOLOW DOPPLER COMMENTS: No AR seen, Mild MR, mild TV regurgitation, Mild IL. Diastolic function: Pseudo normal CONTRAST: 1.1 ml [...] MD By signing this report, the attending paving plant operator certifies that he or she has personally supervised and interpreted the echocardiogram and has reviewed and or edited and agrees with the written comments contained within the report. Procedure Note Ang Aguilar MD PhD - 03/01/2024 Patient name: Nolvia Branch Date of test: 03/01/2024 Type of test: TTE /Doppler [facility] #: 0 Date of : 1970 (F) Night Nurse: Behzad Contreras RDCS Referring Physician: KRYSTEN COHN MD Contrast Agent: 1.1 ml Optison Administered, (1.9 ml wasted). Contrast Administered by: Supervised/Interpreted by: Ang Aguilar MD Diagnosis: sob Location: [facility] Reason for test: elevated troponin [...] 2=Hypo 3=Akinetic 4=Dyskin./Aneurysm 0=Not visualized) Parasternal Long [place]:MAS=1 BAS=1 MIL=1 COY=1 Parasternal Short [place]:MAS=1 MIS=1 GA=2 MIL=1 MAL=1 MA=1 Apical 4 Chambers:=1 MIS=1 BIS=2 BAL=1 MAL=1 AL=1 AC=1 Apical 2 Chambers:AI=1 GA=2 BI=2 BA=1 MA=1 AA=1 AC=1 LV Global Longitudinal Strain: -13% (Normal <-17%) RV Global Longitudinal Strain: LV Function: Mild Segmental reduction in LV Ejection Fraction (EF=41-51%); via modified Tapia's. RV Function: Normal Septal Motion: paradoxic Pericardial Effusion: small Atrial Septum: Normal DOPPLER/COLOR FLOW DOPPLER RESULTS: Diastolic Function: Pseudo normal Tricuspid Valve: mild TV regurgitation Pulmonic Valve: Mild IL AV Regurgitation: No AR seen AV Stenosis: AV Area: cm2 AV Pressure Gradient (mmHg): Mean: 0, Peak:0 MV Regurgitation: Mild MR MV Stenosis: MV Area: cm2 MV Pressure Gradient (mmHg): Mean: 0 MV ERO: cm Regurg. Vol.: ml/beat Regurg. Frac.: % PA Pressure: mmHg DOPPLER/COLOR FOLOW DOPPLER COMMENTS: No AR seen, Mild MR, mild TV regurgitation, Mild IL. Diastolic function: Pseudo normal CONTRAST: 1.1 ml [...] MD By signing this report, the attending paving plant operator certifies that he or she has personally supervised and interpreted the echocardiogram and has reviewed and or edited and agrees with the written comments contained within the report. Krysten Cohn MD CV ECHO PROCEDURES Fi nal Result * (ABNORMAL) Troponin I high-sensitivity 4-hour (03/01/2024 2:26 PM PROFESSOR OF HISTORY) Trop I hs 263(C) <=17 ng/L Comment: Previous critical value noted within 48 hours ago. Interpretive Data For further hscTnI resources including the diagnostic algorithm and an aid in interpretation, copy and paste this link: https://[email or web address] Healthorg/show/hsTrop-[email or web address] Current Interpretive Data last revised 2019. Trop I hs pct delta -20(C) % [facility] Trop I hs interp Significa nt(C) [facility] Blood 03/01/2024 2:26 PM PROFESSOR OF HISTORY 03/01/2024 2:40 PM PROFESSOR OF HISTORY Krysten Cohn MD LAB BLOOD ORDERABLES Final Result [facility] One [facility] Department [place] [address] * (ABNORMAL) Troponin I high-sensitivity 2-hour (03/01/2024 1:21 PM PROFESSOR OF HISTORY) Trop I hs 294(C) <=17 ng/L Comment: Previous critical value noted within 48 hours ago. Interpretive Data For further hscTnI resources including the diagnostic algorithm and an aid in interpretation, copy and paste this link: [email or web address]/show/hsTrop-[email or web address] Current Interpretive Data last revised 2019. Trop I hs pct delta -11(C) % [facility] Comment:Previous critical va lue noted within 48 hours ago. Trop I hs interp Significa nt(C) [facility] Comment:Previous critical va lue noted within 48 hours ago. Blood 03/01/2024 1:21 PM PROFESSOR OF HISTORY 03/01/2024 1:35 PM PROFESSOR OF HISTORY us Krysten Cohn MD LAB BLOOD ORDERABLES Final Result [facility] One [facility] Department [place] [address] * US RUQ (03/01/2024 1:10 PM PROFESSOR OF HISTORY) Anatomical Region Laterality Modality Abdomen N/A Ultrasound 03/01/2024 1:34 PM PROFESSOR OF HISTORY Impressions 03/01/2024 2:38 PM PROFESSOR OF HISTORY 1. Limited examination due to limited acoustic windows from patient positioning. 2. Hepatic steatosis. 3. Cholelithiasis. Dictated by: Jeremi Horn MD The radiology attending physician has personally reviewed this study, and had reviewed and/or edited this written report and agrees with it. Electronically signed by: Too Armenta M.D. Narrative 03/01/2024 2:38 PM PROFESSOR OF HISTORY EXAMINATION: PORTABLE LIMITED ABDOMINAL SONOGRAM HISTORY: Elevated [...] Result * Critical Care (03/01/2024 12:57 PM PROFESSOR OF HISTORY) Narrative Andrez Moyer MD - 03/01/2024 12:57 PM PROFESSOR OF HISTORY Andrez Moyer MD 03/01/2024 6:13 PM Critical [...] plan with the ICU team and other medical/communications consultant staff, making frequent assessments and decisions [...] Result * POCT glucose (03/01/2024 11:17 AM PROFESSOR OF HISTORY) Glucose, POC 158 70 - 199 mg/dL Blood 03/01/2024 11:1 7 AM PROFESSOR OF HISTORY 03/01/2024 11:17 AM PROFESSOR OF HISTORY Krysten Cohn MD LAB POCT ORDERABLES - DEVICE Final Result Performing Organization Address [facility] Co de Phone Number [facility] [place] [address] * (ABNORMAL) Troponin I high-sensitivity series (baseline, 2hr, 4hr, 6hr) (03/01/2024 10:29 AM PROFESSOR OF HISTORY) Pathologist [facility] Trop I hs 329(C) <=17 ng/L Comment: Verified Interpretive Data For further hscTnI resources including the diagnostic algorithm and an aid in interpretation, copy and paste this link: [email or web address].testcatalog.org/show/[email or web address] Current Interpretive Data last revised 2019. Blood 03/01/2024 10:2 9 AM PROFESSOR OF HISTORY 03/01/2024 11:47 AM PROFESSOR OF HISTORY us Krysten Cohn MD LAB BLOOD ORDERABLES Final Result Performing Organization Address [facility]/ZIP Co de Phone Number [facility] Department [place] [address] * Critical result callback Cardio chemistry (03/01/2024 10:29 AM PROFESSOR OF HISTORY) Date Notified [id number] Time Notified 1229 [facility] Test name Trop I hs base [facility] Called/Read Back Arianna Barcenas [facility] Credentials RN [facility] Called By RIK SALVADOR [facility] Blood 03/01/2024 10:2 9 AM PROFESSOR OF HISTORY 03/01/2024 11:47 AM PROFESSOR OF HISTORY us Krysten Cohn MD LAB BLOOD ORDERABLES Final Result [facility] [place] [address] * (ABNORMAL) Creatine kinase (CK), total (03/01/2024 10:26 AM PROFESSOR OF HISTORY) CK 222(H) 30 - 200 Units/L Blood 03/01/2024 10:2 6 AM PROFESSOR OF HISTORY 03/01/2024 11:47 AM PROFESSOR OF HISTORY us Angelica ADAMS LAB BLOOD ORDERABLE S Final Result [facility] [place] [address] * Hepatitis panel, acute Blood (03/01/2024 10:23 AM PROFESSOR OF HISTORY) Hep A IgM Nonreactive Nonreactive Hep B core IgM Nonreactive Nonreactive [facility] Hep C Ab Nonreactive Nonreactive [facility] Comment:Antibodies to HCV no t detected. Does NOT exclude the possibility of recent exposure to HCV. Current interpretive data was last revised on 21 HepBsAg Nonreactive Nonreactive [facility] Blood 03/01/2024 10:2 3 AM PROFESSOR OF HISTORY 03/01/2024 11:47 AM PROFESSOR OF HISTORY Angelica ADAMS LAB MICROBIOLOGY - GENERAL ORDERABLES Final Result Performing Organization Address City/[facility]/ZIP Co de Phone Number [facility] [place] [address] * Lipase (03/01/2024 10:23 AM PROFESSOR OF HISTORY) Pathologist [facility] Lipase 40 10 - 99 Units/L Blood 03/01/2024 10:2 3 AM PROFESSOR OF HISTORY 03/01/2024 11:47 AM PROFESSOR OF HISTORY Angelica ADAMS LAB BLOOD ORDERABLE S Final Result Performing Organization Address [facility] Co de Phone Number [facility] [place] [address] * (ABNORMAL) Gamma GT (03/01/2024 10:23 AM PROFESSOR OF HISTORY) Pathologist [facility] GGT 216(H) 5 - 35 Units/L Blood 03/01/2024 10:2 3 AM PROFESSOR OF HISTORY 03/01/2024 11:47 AM PROFESSOR OF HISTORY Angelica ADAMS LAB BLOOD ORDERABLE S Final Result Performing Organization Address [facility] Co de Phone Number [facility] [place] [address] * (ABNORMAL) eGFR (03/01/2024 7:41 AM PROFESSOR OF HISTORY) eGFR 52(L) >=60 mL/min/1. 73 m2 Comment: [...] last reviewed 2021. Blood 03/01/2024 7:41 AM PROFESSOR OF HISTORY 03/01/2024 8:02 AM PROFESSOR OF HISTORY Krysten Cohn MD LAB BLOOD ORDERABLES Final Result Performing Organization Address [facility] de Phone Number [facility] [place] [address] * (ABNORMAL) Protime-INR (03/01/2024 7:41 AM PROFESSOR OF HISTORY) PT 24.8(H) 9.7 - 13.0 sec INR 2.26(H) 0.90 - 1.20 [facility] Comment: Interpretive data Oral anticoagulant therapeutic ranges: Venous thromboembolism prophylaxis or treatment: 2.0-3.0 CARDIOLOGY Standard range: 2.0-3.0 High-intensity range: 2.5-3.5 Refer to indication-specific guidelines for appropriate target ranges for prosthetic heart valve replacement. Current interpretive data was last revised on 2019. Blood 03/01/2024 7:41 AM PROFESSOR OF HISTORY 03/01/2024 7:53 AM PROFESSOR OF HISTORY Krysten Cohn MD LAB BLOOD ORDERABLES Final Result Performing Organization Address [facility] Co de Phone Number [facility] [place] [address] * Blood gas, venous (03/01/2024 7:41 AM PROFESSOR OF HISTORY) pH, Venous 7.40 7.32 - 7.43 PCO2, Venous 45 40 - 50 mmHg [facility] PO2, Venous 39 mmHg [facility] Comment: Interpretive Data No Reference Range Established Current Interpretive Data was last revised on 2017. HCO3 Venous, Calculated 28 20 - 30 mmol/L [facility] BE, venous 2 mmol/L [facility] Comment: Interpretive Data No Reference Range Established Current Interpretive Data was last revised on 2017. Blood 03/01/2024 7:41 AM PROFESSOR OF HISTORY 03/01/2024 7:46 AM PROFESSOR OF HISTORY Krysten Cohn MD LAB BLOOD ORDERABLES Final Result [facility] One [facility] Department [place] [address] * (ABNORMAL) Comprehensive metabolic panel (03/01/2024 7:41 AM PROFESSOR OF HISTORY) Sodium 143 135 - 145 mmol/L Potassium, pl 3.7 3.3 - 4.9 mmol/L [facility] Chloride 104 97 - 110 mmol/L [facility] CO2 27 22 - 32 mmol/L [facility] Anion gap 12 2 - 15 mmol/L [facility] BUN 38(H) 6 - 25 mg/dL [facility] Creatinine 1.23(H) 0.60 - 1.10 mg/dL [facility] Glucose 159 70 - 199 mg/dL [facility] Comment: Interpretive Data Fasting glucose >/= 126 [...] 2022. Calcium 8.3(L) 8.5 - 10.3 mg/dL [facility] Bilirubin, total 0.6 0.1 - 1.2 mg/dL [facility] Protein, pl 6.0(L) 6.5 - 8.5 g/dL [facility] Albumin 2.9(L) 3.5 - 5.0 g/dL [facility] Alk phos 275(H) 40 - 130 Units/L [facility] ALT 31 7 - 45 Units/L [facility] AST 222(H) 10 - 45 Units/L [facility] Blood 03/01/2024 7:41 AM PROFESSOR OF HISTORY 03/01/2024 8:02 AM PROFESSOR OF HISTORY Krysten Cohn MD LAB BLOOD ORDERABLES Final Result [facility] [place] [address] * POCT glucose (03/01/2024 7:22 AM PROFESSOR OF HISTORY) [facility] Glucose, POC 158 70 - 199 mg/dL Blood 03/01/2024 7:22 AM PROFESSOR OF HISTORY 03/01/2024 7:22 AM PROFESSOR OF HISTORY Krysten Cohn MD LAB POCT ORDERABLES - DEVICE Final Result Performing Organization Address City/[facility] Co de Phone Number [facility] [place] [address] * (ABNORMAL) CBC with auto differential (03/01/2024 6:40 AM PROFESSOR OF HISTORY) [facility] WBC 22.4(H) 3.8 - 9.9 K/cumm Hgb 9.0(L) 11.9 - 15.5 g/dL [facility] Hct 27.6(L) 35.6 - 45.5 % [facility] Plt 162 150 - 400 K/cumm [facility] MPV 10.5 9.1 - 12.3 fL [facility] RBC 2.63(L) 3.90 - 5.20 M/cumm [facility] MCV 104.9(H) 81.3 - 96.4 fL [facility] MCH 34.2(H) 27.1 - 33.3 pg [facility] MCHC 32.6 32.3 - 35.7 g/dL [facility] RDW CV 15.3(H) 11.1 - 14.9 % [facility] RDW SD 58.5(H) 35.7 - 48.1 fL [facility] NRBC abs 0.07(H) 0.00 - 0.01 K/cumm [facility] Blood 03/01/2024 6:40 AM PROFESSOR OF HISTORY 03/01/2024 6:53 AM PROFESSOR OF HISTORY us Krysten Cohn MD LAB BLOOD ORDERABLES Final Result [facility] One [facility] Department [place] [address] * (ABNORMAL) Manual Differential (03/01/2024 6:40 AM PROFESSOR OF HISTORY) Differential Manual Cells Counted 122 [facility] Neutrophil abs 16.3(H) 1.5 - 6.5 K/cumm [facility] Imm gran abs 1.5(H) 0.0 - 0.1 K/cumm [facility] Lymphocyte abs 3.1 0.8 - 3.3 K/cumm [facility] Monocyte abs 1.5(H) 0.2 - 0.8 K/cumm [facility] Neutrophil pct 72.9 % [facility] Comment: Interpretive Data Percent cell count reference ranges are not reported, since discordance with absolute values may lead to misinterpretation of CBC data. Current Interpretive Data was last revised on 2017. Lymphocyte pct 13.9 % [facility] Comment: Interpretive Data Percent cell count reference ranges are not reported, since discordance with absolute values may lead to misinterpretation of CBC data. Current Interpretive Data was last revised on 2017. Monocyte pct 6.6 % [facility] Comment: Interpretive Data Percent cell count reference ranges are not reported, since discordance with absolute values may lead to misinterpretation of CBC data. Current Interpretive Data was last revised on 2017. Metamyelocyte pct 4.1 % [facility] Myelocyte pct 2.5 % [facility] Blood 03/01/2024 6:40 AM PROFESSOR OF HISTORY 03/01/2024 6:56 AM PROFESSOR OF HISTORY us Krysten Cohn MD LAB BLOOD ORDERABLES Final Result Performing Organization Address [facility] Co de Phone Number [facility]LEINE [facility] [place] [address] * POCT glucose (03/01/2024 3:08 AM PROFESSOR OF HISTORY) Glucose, POC 140 70 - 199 mg/dL Blood 03/01/2024 3:08 AM PROFESSOR OF HISTORY 03/01/2024 3:08 AM PROFESSOR OF HISTORY us Krysten Cohn MD LAB POCT ORDERABLES - DEVICE Final Result Performing Organization Address [facility] de Phone Number [facility] [place] [address] * Lactate (03/01/2024 12:11 AM PROFESSOR OF HISTORY) Lactate 1.7 0.7 - 2.0 mmol/L Blood 03/01/2024 12:1 1 AM PROFESSOR OF HISTORY 03/01/2024 12:41 AM PROFESSOR OF HISTORY us Krysten Cohn MD LAB BLOOD ORDERABLES Final Result Performing Organization Address [facility] de Phone Number [facility] [place] [address] * POCT glucose (02/29/2024 11:10 PM PROFESSOR OF HISTORY) Glucose, POC 173 70 - 199 mg/dL Blood 02/29/2024 11:1 0 PM PROFESSOR OF HISTORY 02/29/2024 11:10 PM PROFESSOR OF HISTORY Krysten Cohn MD LAB POCT ORDERABLES - DEVICE Final Result Performing Organization Address [facility] Co de Phone Number [facility] [place] [address] * (ABNORMAL) eGFR (02/29/2024 10:33 PM PROFESSOR OF HISTORY) eGFR 52(L) >=60 mL/min/1. 73 m2 Comment: [...] reviewed 2021. Blood 02/29/2024 10:3 3 PM PROFESSOR OF HISTORY 02/29/2024 10:51 PM PROFESSOR OF HISTORY us Krysten Cohn MD LAB BLOOD ORDERABLES Final Result [facility] Department [place] [address] * (ABNORMAL) Hemoglobin and hematocrit (02/29/2024 10:33 PM PROFESSOR OF HISTORY) Hgb 8.7(L) 11.9 - 15.5 g/dL Hct 26.9(L) 35.6 - 45.5 % [facility] Blood 02/29/2024 10:3 3 PM PROFESSOR OF HISTORY 02/29/2024 10:51 PM PROFESSOR OF HISTORY us Krysten Cohn MD LAB BLOOD ORDERABLES Final Result [facility] [place] [address] * (ABNORMAL) Protime-INR (02/29/2024 10:33 PM PROFESSOR OF HISTORY) PT 24.0(H) 9.7 - 13.0 sec INR 2.19(H) 0.90 - 1.20 [facility] Comment: Interpretive data Oral anticoagulant therapeutic ranges: Venous thromboembolism prophylaxis or treatment: 2.0-3.0 CARDIOLOGY Standard range: 2.0-3.0 High-intensity range: 2.5-3.5 Refer to indication-specific guidelines for appropriate target ranges for prosthetic heart valve replacement. Current interpretive data was last revised on 2019. Blood 02/29/2024 10:3 3 PM PROFESSOR OF HISTORY 02/29/2024 10:54 PM PROFESSOR OF HISTORY us Krysten Cohn MD LAB BLOOD ORDERABLES Final Result Performing Organization Address [facility] de Phone Number [facility] Department [place] [address] * (ABNORMAL) Blood gas, venous (02/29/2024 10:33 PM PROFESSOR OF HISTORY) pH, Venous 7.47(H) 7.32 - 7.43 PCO2, Venous 37(L) 40 - 50 mmHg [facility] PO2, Venous 38 mmHg [facility] Comment: Interpretive Data No Reference Range Established Current Interpretive Data was last revised on 2017. HCO3 Venous, Calculated 28 20 - 30 mmol/L [facility] BE, venous 3 mmol/L [facility] Comment: Interpretive Data No Reference Range Established Current Interpretive Data was last revised on 2017. Blood 02/29/2024 10:3 3 PM PROFESSOR OF HISTORY 02/29/2024 10:44 PM PROFESSOR OF HISTORY Krysten Cohn MD LAB BLOOD ORDERABLES Final Result Performing Organization Address [facility] de Phone Number [facility] Department [place] [address] * (ABNORMAL) Comprehensive metabolic panel (02/29/2024 10:33 PM PROFESSOR OF HISTORY) Sodium 141 135 - 145 mmol/L Potassium, pl 4.1 3.3 - 4.9 mmol/L [facility] Chloride 102 97 - 110 mmol/L [facility] CO2 25 22 - 32 mmol/L [facility] Anion gap 14 2 - 15 mmol/L [facility] BUN 32(H) 6 - 25 mg/dL [facility] Creatinine 1.23(H) 0.60 - 1.10 mg/dL [facility] Glucose 163 70 - 199 mg/dL [facility] Comment: Interpretive Data Fasting glucose >/= 126 [...] 2022. Calcium 8.4(L) 8.5 - 10.3 mg/dL [facility] Bilirubin, total 0.8 0.1 - 1.2 mg/dL [facility] Protein, pl 6.2(L) 6.5 - 8.5 g/dL [facility] Albumin 2.4(L) 3.5 - 5.0 g/dL [facility] Alk phos 286(H) 40 - 130 Units/L [facility] ALT 23 7 - 45 Units/L [facility] AST 125(H) 10 - 45 Units/L [facility] Blood 02/29/2024 10:3 3 PM PROFESSOR OF HISTORY 02/29/2024 10:51 PM PROFESSOR OF HISTORY us Krysten Cohn MD LAB BLOOD ORDERABLES Final Result [facility]INE Mckeon [facility] Department [place] [address] * Critical Care (02/29/2024 8:54 PM PROFESSOR OF HISTORY) Narrative Gabriel Tsang MD - 02/29/2024 8:54 PM PROFESSOR OF HISTORY Gabriel Tsang MD 03/01/2024 6:55 AM Critical [...] plan with the ICU team and other medical/communications consultant staff, making frequent assessments and decisions [...] conditions: us Gabriel Tsang MD IN CLINIC/BEDSIDE MARIOE OSIRIS Final Result * POCT glucose (02/29/2024 7:13 PM PROFESSOR OF HISTORY) Glucose, POC 141 70 - 199 mg/dL Blood 02/29/2024 7:13 PM PROFESSOR OF HISTORY 02/29/2024 7:13 PM PROFESSOR OF HISTORY us Krysten Cohn MD LAB POCT ORDERABLES - DEVICE Final Result M[facility]LEINE DEY Linda [facility] Department [place] [address] * XR Chest 1 View (02/29/2024 6:29 PM PROFESSOR OF HISTORY) Anatomical Region Laterality Modality Body, Chest N/A Computed Radiogr aphy 03/01/2024 9:18 AM PROFESSOR OF HISTORY Impressions 03/01/2024 9:18 AM PROFESSOR OF HISTORY Comparison is made to chest radiograph dated 02/28/2024. Right internal jugular venous approach catheter tip overlies the right brachiocephalic vein. The patient is status post right shoulder arthroplasty. Unchanged right hemidiaphragm elevation with mild right basilar atelectasis. No left lung consolidation. No pleural effusion or pneumothorax. Stable cardiomediastinal silhouette. Electronically signed by: Minnie Rivera M.D. Narrative 03/01/2024 9:18 AM PROFESSOR OF HISTORY EXAMINATION: 1 view chest radiograph Procedure Note [...] Result * (ABNORMAL) Lactate (02/29/2024 6:01 PM PROFESSOR OF HISTORY) Pathologist [facility] Lactate 2.9(H) 0.7 - 2.0 mmol/L Blood 02/29/2024 6:01 PM PROFESSOR OF HISTORY 02/29/2024 6:15 PM PROFESSOR OF HISTORY us Krysten Cohn MD LAB BLOOD ORDERABLES Final Result M[facility]INE DEY One [facility] Department [place] [address] * (ABNORMAL) Blood gas, venous (02/29/2024 6:01 PM PROFESSOR OF HISTORY) pH, Venous 7.46(H) 7.32 - 7.43 PCO2, Venous 36(L) 40 - 50 mmHg MADELEINE TERRY PO2, Venous 34 mmHg [facility] Comment: Interpretive Data No Reference Range Established Current Interpretive Data was last revised on 2017. HCO3 Venous, Calculated 26 20 - 30 mmol/L [facility] BE, venous 2 mmol/L [facility] Comment: Interpretive Data No Reference Range Established Current Interpretive Data was last revised on 2017. Blood 02/29/2024 6:01 PM PROFESSOR OF HISTORY 02/29/2024 6:10 PM PROFESSOR OF HISTORY us Krysten Cohn MD LAB BLOOD ORDERABLES Final Result [facility] One [facility] Department [place] [address] * (ABNORMAL) POC Blood Gas and Chemistries, Venous - (02/29/2024 5:47 PM PROFESSOR OF HISTORY) pH, Morris POC 7.47(H) 7.32 - 7.43 pCO2, morris POC 35(L) 40 - 50 mmHg [facility] pO2, morris POC 40 mmHg [facility] Na, POC 141 135 - 145 mmol/L [facility] K POC 4.5 3.3 - 4.9 mmol/L [facility] Comment: Interpretive Data Not all point of care methods assess for hemolysis. Confirm with instrument and retest K+ if not consistent with clinical signs and symptoms. Current Interpretive Data was last revised on 2023. Cl, POC 104 97 - 110 mmol/L [facility] Ionized Ca, POC 4.52 4.50 - 5.10 mg/dL [facility] Glucose, POC 124 70 - 199 mg/dL [facility] Lactate, POC 2.6(H) 0.7 - 2.2 mmol/L [facility] O2 Sat, Morris POC (Angelica) 65 % [facility] excess, POC 1.9 mmol/L [facility] HCO3, Morris POC 26 20 - 30 mmol/L [facility] Hct, POC 30.0(L) 36.3 - 45.3 % [facility] Total Hb, POC 9.9(L) 11.9 - 15.5 g/dL [facility] Blood 02/29/2024 5:47 PM PROFESSOR OF HISTORY 02/29/2024 5:47 PM PROFESSOR OF HISTORY Krysten oChn MD LAB POCT ORDERABLES - DEVICE Final Result Performing Organization Address City/[facility] Co de Phone Number [facility] [place] [address] * POCT glucose (02/29/2024 3:25 PM PROFESSOR OF HISTORY) Glucose, POC 144 70 - 199 mg/dL Blood 02/29/2024 3:25 PM PROFESSOR OF HISTORY 02/29/2024 3:25 PM PROFESSOR OF HISTORY us Krysten Cohn MD LAB POCT ORDERABLES - DEVICE Final Result Performing Organization Address [facility] de Phone Number [facility] Department [place] [address] * Blood culture Blood (02/29/2024 2:52 PM PROFESSOR OF HISTORY) Report Final Report: No growth Blood 02/29/2024 2:52 PM PROFESSOR OF HISTORY 02/29/2024 3:07 PM PROFESSOR OF HISTORY Narrative [facility] - 2024 4:00 PM PROFESSOR OF HISTORY Collection->Peripheral 1. Blood cultures are incubated for [...] performance characteristics have been verified by the [facility] Microbiology Laboratory. For questions about this culture, contact the Microbiology Laboratory at [phone]. Interpretive data was last revised on 23. Krysten Cohn MD LAB MICROBIOLOGY - GE NERAL ORDERABLES Final Result [facility] One [facility] Department [place] [address] * Blood culture Blood (02/29/2024 2:52 PM PROFESSOR OF HISTORY) Report Final Report: No growth Blood 02/29/2024 2:52 PM PROFESSOR OF HISTORY 02/29/2024 3:07 PM PROFESSOR OF HISTORY Narrative MADELEINE [facility] - 2024 4:00 PM PROFESSOR OF HISTORY Collection->Peripheral 1. Blood cultures are incubated for [...] performance characteristics have been verified by the [facility] Microbiology Laboratory. For questions about this culture, contact the Microbiology Laboratory at [phone]. Interpretive data was last revised on 23. us Krysten Cohn MD LAB MICROBIOLOGY - GE NERAL ORDERABLES Final Result Performing Organization Address [facility]/ZIP Co de Phone Number [facility] [place] [address] * (ABNORMAL) Blood gas, venous (02/29/2024 2:22 PM PROFESSOR OF HISTORY) Pathologist [facility] pH, Venous 7.42 7.32 - 7.43 PCO2, Venous 38(L) 40 - 50 mmHg [facility] PO2, Venous 34 mmHg [facility] Comment: Interpretive Data No Reference Range Established Current Interpretive Data was last revised on 2017. HCO3 Venous, Calculated 25 20 - 30 mmol/L [facility] BE, venous 0 mmol/L [facility] Comment: Interpretive Data No Reference Range Established Current Interpretive Data was last revised on 2017. Blood 02/29/2024 2:22 PM PROFESSOR OF HISTORY 02/29/2024 2:34 PM PROFESSOR OF HISTORY us Krysten Cohn MD LAB BLOOD ORDERABLES Final Result Performing Organization Address [facility] Co de Phone Number [facility] [place] [address] * POCT glucose (02/29/2024 11:11 AM PROFESSOR OF HISTORY) [facility] Glucose, POC 102 70 - 199 mg/dL Blood 02/29/2024 11:1 1 AM PROFESSOR OF HISTORY 02/29/2024 11:11 AM PROFESSOR OF HISTORY us Krysten Cohn MD LAB POCT ORDERABLES - DEVICE Final Result Performing Organization Address [facility] Co de Phone Number [facility] [place] [address] * eGFR (02/29/2024 10:58 AM PROFESSOR OF HISTORY) [facility] eGFR 63 >=60 mL/min/1. 73 m2 Comment: [...] reviewed 2021. Blood 02/29/2024 10:5 8 AM PROFESSOR OF HISTORY 02/29/2024 11:20 AM PROFESSOR OF HISTORY us Angelica ADAMS LAB BLOOD ORDERABLE S Final Result Performing Organization Address City/[facility] Co de Phone Number [facility] Department [place] [address] * (ABNORMAL) Blood gas, venous (02/29/2024 10:58 AM PROFESSOR OF HISTORY) pH, Venous 7.27(L) 7.32 - 7.43 PCO2, Venous 44 40 - 50 mmHg [facility] PO2, Venous 38 mmHg [facility] Comment: Interpretive Data No Reference Range Established Current Interpretive Data was last revised on 2017. HCO3 Venous, Calculated 21 20 - 30 mmol/L [facility] BE, venous -6 mmol/L [facility] Comment: Interpretive Data No Reference Range Established Current Interpretive Data was last revised on 2017. Blood 02/29/2024 10:5 8 AM PROFESSOR OF HISTORY 02/29/2024 11:03 AM PROFESSOR OF HISTORY us Krysten Cohn MD LAB BLOOD ORDERABLES Final Result [facility] Department [place] [address] * (ABNORMAL) Basic metabolic panel (02/29/2024 10:58 AM PROFESSOR OF HISTORY) [facility] Sodium 140 135 - 145 mmol/L Potassium, pl 5.1(H) 3.3 - 4.9 mmol/L [facility] Chloride 99 97 - 110 mmol/L [facility] CO2 19(L) 22 - 32 mmol/L [facility] Anion gap 22(H) 2 - 15 mmol/L [facility] BUN 22 6 - 25 mg/dL [facility] Creatinine 1.05 0.60 - 1.10 mg/dL [facility] Glucose 99 70 - 199 mg/dL [facility] Comment: Interpretive Data Fasting glucose >/= 126 [...] 2022. Calcium 8.7 8.5 - 10.3 mg/dL [facility] Blood 02/29/2024 10:5 8 AM PROFESSOR OF HISTORY 02/29/2024 11:20 AM PROFESSOR OF HISTORY us Angelica ADAMS LAB BLOOD ORDERABLE S Final Result [facility] Department [place] [address] * eGFR (02/29/2024 8:19 AM PROFESSOR OF HISTORY) [facility] eGFR 78 >=60 mL/min/1. 73 m2 Comment: [...] last reviewed 2021. Blood 02/29/2024 8:19 AM PROFESSOR OF HISTORY 02/29/2024 8:36 AM PROFESSOR OF HISTORY Krysten Cohn MD LAB BLOOD ORDERABLES Final Result Performing Organization Address [facility] de Phone Number [facility] [place] [address] * (ABNORMAL) Protime-INR (02/29/2024 8:19 AM PROFESSOR OF HISTORY) PT 17.1(H) 9.7 - 13.0 sec INR 1.57(H) 0.90 - 1.20 [facility] Comment: Interpretive data Oral anticoagulant therapeutic ranges: Venous thromboembolism prophylaxis or treatment: 2.0-3.0 CARDIOLOGY Standard range: 2.0-3.0 High-intensity range: 2.5-3.5 Refer to indication-specific guidelines for appropriate target ranges for prosthetic heart valve replacement. Current interpretive data was last revised on 2019. Blood 02/29/2024 8:19 AM PROFESSOR OF HISTORY 02/29/2024 8:29 AM PROFESSOR OF HISTORY Krysten Cohn MD LAB BLOOD ORDERABLES Final Result Performing Organization Address [facility] Co de Phone Number [facility]INE [facility] [address] * Blood gas, venous (02/29/2024 8:19 AM PROFESSOR OF HISTORY) pH, Venous 7.42 7.32 - 7.43 PCO2, Venous 42 40 - 50 mmHg [facility] PO2, Venous 30 mmHg [facility] Comment: Interpretive Data No Reference Range Established Current Interpretive Data was last revised on 2017. HCO3 Venous, Calculated 28 20 - 30 mmol/L [facility] BE, venous 2 mmol/L [facility] Comment: Interpretive Data No Reference Range Established Current Interpretive Data was last revised on 2017. Blood 02/29/2024 8:19 AM PROFESSOR OF HISTORY 02/29/2024 8:26 AM PROFESSOR OF HISTORY us Krysten Cohn MD LAB BLOOD ORDERABLES Final Result [facility] One [facility] [place] [address] * (ABNORMAL) Comprehensive metabolic panel (02/29/2024 8:19 AM PROFESSOR OF HISTORY) Sodium 139 135 - 145 mmol/L Potassium, pl 4.4 3.3 - 4.9 mmol/L [facility] Chloride 101 97 - 110 mmol/L [facility] CO2 26 22 - 32 mmol/L [facility] [facility] Anion gap 12 2 - 15 mmol/L [facility] BUN 21 6 - 25 mg/dL [facility] Creatinine 0.88 0.60 - 1.10 mg/dL [facility] Glucose 118 70 - 199 mg/dL [facility] Comment: Interpretive Data Fasting glucose >/= 126 [...] 2022. Calcium 8.6 8.5 - 10.3 mg/dL [facility] Bilirubin, total 0.9 0.1 - 1.2 mg/dL [facility] Protein, pl 6.3(L) 6.5 - 8.5 g/dL [facility] Albumin 2.6(L) 3.5 - 5.0 g/dL [facility] Alk phos 300(H) 40 - 130 Units/L [facility] ALT 14 7 - 45 Units/L [facility] AST 59(H) 10 - 45 Units/L [facility] Blood 02/29/2024 8:19 AM PROFESSOR OF HISTORY 02/29/2024 8:36 AM PROFESSOR OF HISTORY us Krysten Cohn MD LAB BLOOD ORDERABLES Final Result [facility] One [facility] Department [place] [address] * Critical Care (02/29/2024 7:40 AM PROFESSOR OF HISTORY) Narrative Andrez Moyer MD - 02/29/2024 7:40 AM PROFESSOR OF HISTORY Andrez Moyer MD 02/29/2024 7:45 AM Critical [...] plan with the ICU team and other medical/communications consultant staff, making frequent assessments and decisions [...] Result * POCT glucose (02/29/2024 7:19 AM PROFESSOR OF HISTORY) Glucose, POC 135 70 - 199 mg/dL Blood 02/29/2024 7:19 AM PROFESSOR OF HISTORY 02/29/2024 7:19 AM PROFESSOR OF HISTORY Krysten Cohn MD LAB POCT ORDERABLES - DEVICE Final Result Performing Organization Address [facility] Co de Phone Number [facility] [place] [address] * POCT glucose (02/29/2024 3:18 AM PROFESSOR OF HISTORY) [facility] Glucose, POC 188 70 - 199 mg/dL Blood 02/29/2024 3:18 AM PROFESSOR OF HISTORY 02/29/2024 3:18 AM PROFESSOR OF HISTORY Krysten Cohn MD LAB POCT ORDERABLES - DEVICE Final Result Performing Organization Address [facility] Co de Phone Number [facility] [place] [address] * eGFR (02/28/2024 11:35 PM PROFESSOR OF HISTORY) [facility] eGFR >90 >=60 mL/min/1. 73 m2 [...] reviewed 2021. Blood 02/28/2024 11:3 5 PM PROFESSOR OF HISTORY 02/29/2024 12:07 AM PROFESSOR OF HISTORY us Krysten Cohn MD LAB BLOOD ORDERABLES Final Result [facility] One [facility] [place] [address] * (ABNORMAL) Differential, auto (02/28/2024 11:35 PM PROFESSOR OF HISTORY) Neutrophil abs 11.3(H) 1.5 - 6.5 K/cumm Imm gran abs 3.3(H) 0.0 - 0.1 K/cumm [facility] Lymphocyte abs 1.8 0.8 - 3.3 K/cumm [facility] Monocyte abs 2.1(H) 0.2 - 0.8 K/cumm [facility] Eosinophil abs 0.0 0.0 - 0.5 K/cumm [facility] Basophil abs 0.1 0.0 - 0.1 K/cumm [facility] Neutrophil pct 60.5 % [facility] Comment: Confirmed by smear review Interpretive Data Percent cell count reference ranges are not reported, since discordance with absolute values may lead to misinterpretation of CBC data. Current Interpretive Data was last revised on 2017. Imm gran pct 17.8 % [facility] Comment: Interpretive Data Percent cell count reference ranges are not reported, since discordance with absolute values may lead to misinterpretation of CBC data. Current Interpretive Data was last revised on 2017. Lymphocyte pct 9.6 % [facility] Comment: Interpretive Data Percent cell count reference ranges are not reported, since discordance with absolute values may lead to misinterpretation of CBC data. Current Interpretive Data was last revised on 2017. Monocyte pct 11.3 % [facility] Comment: Interpretive Data Percent cell count reference ranges are not reported, since discordance with absolute values may lead to misinterpretation of CBC data. Current Interpretive Data was last revised on 2017. Eosinophil pct 0.2 % [facility] Comment: Interpretive Data Percent cell count reference ranges are not reported, since discordance with absolute values may lead to misinterpretation of CBC data. Current Interpretive Data was last revised on 2017. Basophil pct 0.6 % [facility] Comment: Interpretive Data Percent cell count reference ranges are not reported, since discordance with absolute values may lead to misinterpretation of CBC data. Current Interpretive Data was last revised on 2017. Blood 02/28/2024 11:3 5 PM PROFESSOR OF HISTORY 02/29/2024 12:12 AM PROFESSOR OF HISTORY us Krysten Cohn MD LAB BLOOD ORDERABLES Final Result [facility] One [facility] Department [place] [address] * (ABNORMAL) CBC with auto differential (02/28/2024 11:35 PM PROFESSOR OF HISTORY) WBC 18.7(H) 3.8 - 9.9 K/cumm Hgb 9.5(L) 11.9 - 15.5 g/dL [facility] Hct 30.1(L) 35.6 - 45.5 % [facility] Plt 154 150 - 400 K/cumm [facility] MPV 10.9 9.1 - 12.3 fL [facility] RBC 2.75(L) 3.90 - 5.20 M/cumm [facility] MCV 110.2(H) 81.3 - 96.4 fL [facility] MCH 34.5(H) 27.1 - 33.3 pg [facility] MCHC 31.5(L) 32.3 - 35.7 g/dL [facility] RDW CV 15.4(H) 11.1 - 14.9 % [facility] RDW SD 62.2(H) 35.7 - 48.1 fL [facility] NRBC abs 0.13(H) 0.00 - 0.01 K/cumm [facility] Blood 02/28/2024 11:3 5 PM PROFESSOR OF HISTORY 02/29/2024 12:12 AM PROFESSOR OF HISTORY us Krysten Cohn MD LAB BLOOD ORDERABLES Final Result Performing Organization Address City/[facility]/ZIP Co de Phone Number [facility] [place] [address] * (ABNORMAL) Hemoglobin and hematocrit (02/28/2024 11:35 PM PROFESSOR OF HISTORY) Hgb 9.5(L) 11.9 - 15.5 g/dL Hct 30.1(L) 35.6 - 45.5 % [facility] Blood 02/28/2024 11:3 5 PM PROFESSOR OF HISTORY 02/29/2024 12:09 AM PROFESSOR OF HISTORY us Krysten Cohn MD LAB BLOOD ORDERABLES Final Result Performing Organization Address City/[facility] Co de Phone Number [facility] [place] [address] * (ABNORMAL) Protime-INR (02/28/2024 11:35 PM PROFESSOR OF HISTORY) PT 14.3(H) 9.7 - 13.0 sec INR 1.32(H) 0.90 - 1.20 [facility] Comment: Interpretive data Oral anticoagulant therapeutic ranges: Venous thromboembolism prophylaxis or treatment: 2.0-3.0 CARDIOLOGY Standard range: 2.0-3.0 High-intensity range: 2.5-3.5 Refer to indication-specific guidelines for appropriate target ranges for prosthetic heart valve replacement. Current interpretive data was last revised on 2019. Blood 02/28/2024 11:3 5 PM PROFESSOR OF HISTORY 02/29/2024 12:22 AM PROFESSOR OF HISTORY Krysten Cohn MD LAB BLOOD ORDERABLES Final Result Performing Organization Address [facility] de Phone Number [facility] [place] [address] * Blood gas, venous (02/28/2024 11:35 PM PROFESSOR OF HISTORY) pH, Venous 7.36 7.32 - 7.43 PCO2, Venous 50 40 - 50 mmHg [facility] PO2, Venous 43 mmHg [facility] Comment: Interpretive Data No Reference Range Established Current Interpretive Data was last revised on 2017. HCO3 Venous, Calculated 29 20 - 30 mmol/L [facility] BE, venous 2 mmol/L [facility] Comment: Interpretive Data No Reference Range Established Current Interpretive Data was last revised on 2017. Blood 02/28/2024 11:3 5 PM PROFESSOR OF HISTORY 02/28/2024 11:49 PM PROFESSOR OF HISTORY Krysten Cohn MD LAB BLOOD ORDERABLES Final Result Performing Organization Address [facility] Phone Number [facility] [place] [address] * (ABNORMAL) Comprehensive metabolic panel (02/28/2024 11:35 PM PROFESSOR OF HISTORY) Pathologist [facility] Sodium 139 135 - 145 mmol/L Potassium, pl 4.0 3.3 - 4.9 mmol/L [facility] Chloride 99 97 - 110 mmol/L [facility] CO2 27 22 - 32 mmol/L [facility] Anion gap 13 2 - 15 mmol/L [facility] BUN 17 6 - 25 mg/dL [facility] Creatinine 0.71 0.60 - 1.10 mg/dL [facility] Glucose 165 70 - 199 mg/dL [facility] Comment: Interpretive Data Fasting glucose >/= 126 [...] Calcium 8.3(L) 8.5 - 10.3 mg/dL [facility] Bilirubin, total 0.8 0.1 - 1.2 mg/dL [facility] Protein, pl 6.4(L) 6.5 - 8.5 g/dL [facility] Albumin 2.7(L) 3.5 - 5.0 g/dL [facility] Alk phos 308(H) 40 - 130 Units/L [facility] ALT 12 7 - 45 Units/L [facility] AST 38 10 - 45 Units/L [facility] Blood 02/28/2024 11:3 5 PM PROFESSOR OF HISTORY 02/29/2024 12:07 AM PROFESSOR OF HISTORY Krysten Cohn MD LAB BLOOD ORDERABLES Final Result Performing Organization Address City/[facility]/ZIP Co de Phone Number [facility] [place] [address] * POCT glucose (02/28/2024 11:23 PM PROFESSOR OF HISTORY) [facility] Glucose, POC 170 70 - 199 mg/dL Blood 02/28/2024 11:2 3 PM PROFESSOR OF HISTORY 02/28/2024 11:23 PM PROFESSOR OF HISTORY Krysten Cohn MD LAB POCT ORDERABLES - DEVICE Final Result Performing Organization Address City/[facility]/ZIP Co de Phone Number [facility] Department [place] [address] * POCT glucose (02/28/2024 7:25 PM PROFESSOR OF HISTORY) Glucose, POC 149 70 - 199 mg/dL Blood 02/28/2024 7:25 PM PROFESSOR OF HISTORY 02/28/2024 7:25 PM PROFESSOR OF HISTORY us Krysten Cohn MD LAB POCT ORDERABLES - DEVICE Final Result [facility] One [facility] [place] [address] * Critical Care (02/28/2024 6:37 PM PROFESSOR OF HISTORY) Narrative Gabriel Tsang MD - 02/28/2024 6:37 PM PROFESSOR OF HISTORY Gabriel Tsang MD 02/29/2024 8:44 PM Critical [...] plan with the ICU team and other medical/communications consultant staff, making frequent assessments and decisions [...] XR Chest 1 View (02/28/2024 6:12 PM PROFESSOR OF HISTORY) Anatomical Region Laterality Modality Body, Chest N/A Computed Radiogr aphy 02/29/2024 10:4 2 AM PROFESSOR OF HISTORY Impressions 02/29/2024 12:05 PM PROFESSOR OF HISTORY Comparison made to chest radiograph dated 02/27/2024. [...] Jason Lucia M.D. Narrative 02/29/2024 12:05 PM PROFESSOR OF HISTORY EXAMINATION: 1 view chest radiograph Procedure Note [...] Result * POCT glucose (02/28/2024 3:23 PM PROFESSOR OF HISTORY) Glucose, POC 148 70 - 199 mg/dL Blood 02/28/2024 3:23 PM PROFESSOR OF HISTORY 02/28/2024 3:23 PM PROFESSOR OF HISTORY Krysten Cohn MD LAB POCT ORDERABLES - DEVICE Final Result [facility] One [facility] Department [place] [address] * POCT glucose (02/28/2024 11:12 AM PROFESSOR OF HISTORY) Glucose, POC 106 70 - 199 mg/dL Blood 02/28/2024 11:1 2 AM PROFESSOR OF HISTORY 02/28/2024 11:12 AM PROFESSOR OF HISTORY us Krysten Cohn MD LAB POCT ORDERABLES - DEVICE Final Result Performing Organization Address City/[facility] Co de Phone Number [facility] [place] [address] * eGFR (02/28/2024 9:35 AM PROFESSOR OF HISTORY) eGFR 68 >=60 mL/min/1. 73 m2 Comment: [...] last reviewed 2021. Blood 02/28/2024 9:35 AM PROFESSOR OF HISTORY 02/28/2024 9:58 AM PROFESSOR OF HISTORY us Krysten Cohn MD LAB BLOOD ORDERABLES Final Result Performing Organization Address City/[facility]/ZIP Co de Phone Number [facility] [place] [address] * (ABNORMAL) Protime-INR (02/28/2024 9:35 AM PROFESSOR OF HISTORY) PT 14.4(H) 9.7 - 13.0 sec INR 1.33(H) 0.90 - 1.20 [facility] Comment: Interpretive data Oral anticoagulant therapeutic ranges: Venous thromboembolism prophylaxis or treatment: 2.0-3.0 CARDIOLOGY Standard range: 2.0-3.0 High-intensity range: 2.5-3.5 Refer to indication-specific guidelines for appropriate target ranges for prosthetic heart valve replacement. Current interpretive data was last revised on 2019. Blood 02/28/2024 9:35 AM PROFESSOR OF HISTORY 02/28/2024 9:49 AM PROFESSOR OF HISTORY Krysten Cohn MD LAB BLOOD ORDERABLES Final Result Performing Organization Address [facility] de Phone Number [facility] [place] [address] * (ABNORMAL) Blood gas, venous (02/28/2024 9:35 AM PROFESSOR OF HISTORY) Pathologist [facility] pH, Venous 7.35 7.32 - 7.43 PCO2, Venous 53(H) 40 - 50 mmHg [facility] PO2, Venous 40 mmHg [facility] Comment: Interpretive Data No Reference Range Established Current Interpretive Data was last revised on 2017. HCO3 Venous, Calculated 31(H) 20 - 30 mmol/L [facility] BE, venous 3 mmol/L [facility] Comment: Interpretive Data No Reference Range Established Current Interpretive Data was last revised on 2017. Blood 02/28/2024 9:35 AM PROFESSOR OF HISTORY 02/28/2024 9:47 AM PROFESSOR OF HISTORY Krysten Cohn MD LAB BLOOD ORDERABLES Final Result Performing Organization Address [facility] de Phone Number [facility] [place] [address] * (ABNORMAL) Comprehensive metabolic panel (02/28/2024 9:35 AM PROFESSOR OF HISTORY) Sodium 138 135 - 145 mmol/L Potassium, pl 3.8 3.3 - 4.9 mmol/L [facility] Chloride 101 97 - 110 mmol/L [facility] CO2 30 22 - 32 mmol/L [facility] Anion gap 7 2 - 15 mmol/L [facility] BUN 26(H) 6 - 25 mg/dL [facility] Creatinine 0.98 0.60 - 1.10 mg/dL [facility] Glucose 124 70 - 199 mg/dL [facility] Comment: Interpretive Data Fasting glucose >/= 126 [...] 2022. Calcium 8.2(L) 8.5 - 10.3 mg/dL [facility] Bilirubin, total 0.7 0.1 - 1.2 mg/dL [facility] Protein, pl 5.8(L) 6.5 - 8.5 g/dL [facility] Albumin 2.5(L) 3.5 - 5.0 g/dL [facility] Alk phos 390(H) 40 - 130 Units/L [facility] ALT 11 7 - 45 Units/L [facility] AST 40 10 - 45 Units/L [facility] Blood 02/28/2024 9:35 AM PROFESSOR OF HISTORY 02/28/2024 9:58 AM PROFESSOR OF HISTORY us Krysten Cohn MD LAB BLOOD ORDERABLES Final Result [facility] One [facility] Department [place] [address] * Critical Care (02/28/2024 7:43 AM PROFESSOR OF HISTORY) Narrative Andrez Moyer MD - 02/28/2024 7:43 AM PROFESSOR OF HISTORY Andrez Moyer MD 02/28/2024 7:44 AM Critical [...] plan with the ICU team and other medical/communications consultant staff, making frequent assessments and decisions [...] Result * POCT glucose (02/28/2024 7:32 AM PROFESSOR OF HISTORY) Glucose, POC 88 70 - 199 mg/dL Blood 02/28/2024 7:32 AM PROFESSOR OF HISTORY 02/28/2024 7:32 AM PROFESSOR OF HISTORY us Krysten Cohn MD LAB POCT ORDERABLES - DEVICE Final Result [facility] One [facility] Department [place] [address] * (ABNORMAL) Hemoglobin and hematocrit (02/28/2024 4:27 AM PROFESSOR OF HISTORY) Pathologist [facility] Hgb 8.4(L) 11.9 - 15.5 g/dL Hct 27.1(L) 35.6 - 45.5 % [facility] Blood 02/28/2024 4:27 AM PROFESSOR OF HISTORY 02/28/2024 4:46 AM PROFESSOR OF HISTORY Krysten Cohn MD LAB BLOOD ORDERABLES Final Result Performing Organization Address City/[facility]/ZIP Co de Phone Number [facility] Department [place] [address] * POCT glucose (02/28/2024 3:10 AM PROFESSOR OF HISTORY) [facility] Glucose, POC 87 70 - 199 mg/dL Blood 02/28/2024 3:10 AM PROFESSOR OF HISTORY 02/28/2024 3:10 AM PROFESSOR OF HISTORY Result [facility] Krysten Cohn MD LAB POCT ORDERABLES - DEVICE Final Result Performing Organization Address City/[facility] de Phone Number [facility] Department [place] [address] * (ABNORMAL) Blood gas, venous (02/27/2024 11:23 PM PROFESSOR OF HISTORY) [facility] pH, Venous 7.29(L) 7.32 - 7.43 PCO2, Venous 63(H) 40 - 50 mmHg [facility] PO2, Venous 55 mmHg [facility] Comment: Interpretive Data No Reference Range Established Current Interpretive Data was last revised on 2017. HCO3 Venous, Calculated 31(H) 20 - 30 mmol/L [facility] BE, venous 2 mmol/L [facility] Comment: Interpretive Data No Reference Range Established Current Interpretive Data was last revised on 2017. Blood 02/27/2024 11:2 3 PM PROFESSOR OF HISTORY 02/27/2024 11:31 PM PROFESSOR OF HISTORY Krysten Cohn MD LAB BLOOD ORDERABLES Final Result Performing Organization Address City/[facility] Co de Phone Number [facility] Department [place] [address] * POCT glucose (02/27/2024 11:20 PM PROFESSOR OF HISTORY) Glucose, POC 115 70 - 199 mg/dL Blood 02/27/2024 11:2 0 PM PROFESSOR OF HISTORY 02/27/2024 11:20 PM PROFESSOR OF HISTORY Krysten Cohn MD LAB POCT ORDERABLES - DEVICE Final Result Performing Organization Address [facility] Co de Phone Number [facility] Department [place] [address] * Critical Care (02/27/2024 7:55 PM PROFESSOR OF HISTORY) Narrative Gabriel Tsang MD - 02/27/2024 7:55 PM PROFESSOR OF HISTORY Gabriel Tsang MD 02/28/2024 6:02 AM Critical [...] plan with the ICU team and other medical/communications consultant staff, making frequent assessments and decisions [...] Result * (ABNORMAL) eGFR (02/27/2024 7:51 PM PROFESSOR OF HISTORY) eGFR 31(L) >=60 mL/min/1. 73 m2 Comment: [...] last reviewed 2021. Blood 02/27/2024 7:51 PM PROFESSOR OF HISTORY 02/27/2024 8:06 PM PROFESSOR OF HISTORY us Krysten Cohn MD LAB BLOOD ORDERABLES Final Result [facility] One [facility] [place] [address] * (ABNORMAL) Protime-INR (02/27/2024 7:51 PM PROFESSOR OF HISTORY) PT 14.4(H) 9.7 - 13.0 sec INR 1.33(H) 0.90 - 1.20 [facility] Comment: Interpretive data Oral anticoagulant therapeutic ranges: Venous thromboembolism prophylaxis or treatment: 2.0-3.0 CARDIOLOGY Standard range: 2.0-3.0 High-intensity range: 2.5-3.5 Refer to indication-specific guidelines for appropriate target ranges for prosthetic heart valve replacement. Current interpretive data was last revised on 2019. Blood 02/27/2024 7:51 PM PROFESSOR OF HISTORY 02/27/2024 8:10 PM PROFESSOR OF HISTORY us Krysten Cohn MD LAB BLOOD ORDERABLES Final Result Performing Organization Address City/[facility]/ZIP Co de Phone [facility] [place] [address] * Phosphorus (02/27/2024 7:51 PM PROFESSOR OF HISTORY) Pathologist [facility] Phosphorus, pl 4.1 2.3 - 4.5 mg/dL Blood 02/27/2024 7:51 PM PROFESSOR OF HISTORY 02/27/2024 8:00 PM PROFESSOR OF HISTORY Krysten Cohn MD LAB BLOOD ORDERABLES Final Result Performing Organization Address [facility] de Phone Number [facility] Department [place] [address] * (ABNORMAL) Comprehensive metabolic panel (02/27/2024 7:51 PM PROFESSOR OF HISTORY) [facility] Sodium 140 135 - 145 mmol/L Potassium, pl 3.5 3.3 - 4.9 mmol/L [facility] Chloride 100 97 - 110 mmol/L [facility] CO2 30 22 - 32 mmol/L [facility] Anion gap 10 2 - 15 mmol/L [facility] BUN 42(H) 6 - 25 mg/dL [facility] Creatinine 1.91(H) 0.60 - 1.10 mg/dL [facility] Glucose 102 70 - 199 mg/dL [facility] Comment: Interpretive Data Fasting glucose >/= 126 [...] 2022. Calcium 8.3(L) 8.5 - 10.3 mg/dL [facility] Bilirubin, total 0.7 0.1 - 1.2 mg/dL [facility] Protein, pl 5.8(L) 6.5 - 8.5 g/dL [facility] Albumin 2.5(L) 3.5 - 5.0 g/dL [facility] Alk phos 240(H) 40 - 130 Units/L [facility] ALT 11 7 - 45 Units/L [facility] AST 34 10 - 45 Units/L [facility] Blood 02/27/2024 7:51 PM PROFESSOR OF HISTORY 02/27/2024 8:00 PM PROFESSOR OF HISTORY us Krysten Cohn MD LAB BLOOD ORDERABLES Final Result Performing Organization Address City/[facility]/ZIP Co de Phone Number [facility] [place] [address] * POCT glucose (02/27/2024 7:00 PM PROFESSOR OF HISTORY) Glucose, POC 109 70 - 199 mg/dL Blood 02/27/2024 7:00 PM PROFESSOR OF HISTORY 02/27/2024 7:00 PM PROFESSOR OF HISTORY Krysten Cohn MD LAB POCT ORDERABLES - DEVICE Final Result Performing Organization Address [facility] Co de Phone Number [facility] [place] [address] * XR Chest 1 View (02/27/2024 6:19 PM PROFESSOR OF HISTORY) Anatomical Region Laterality Modality Body, Chest N/A Computed Radiogr aphy 02/27/2024 7:35 PM PROFESSOR OF HISTORY Impressions 02/27/2024 7:35 PM PROFESSOR OF HISTORY Comparison is made 02/26/2024. Right internal jugular central venous catheter has tip in the superior vena cava. There has been interval increase in bilateral airspace opacities consistent with pulmonary edema that may be secondary to evolving lung injury or a cardiogenic cause. No pneumothorax. No effusions. Electronically signed by: Kenton Muñoz M.D. Narrative 02/27/2024 7:35 PM PROFESSOR OF HISTORY EXAMINATION: 1 view chest radiograph Procedure Note [...] (ABNORMAL) Blood gas, venous (02/27/2024 5:57 PM PROFESSOR OF HISTORY) pH, Venous 7.27(L) 7.32 - 7.43 PCO2, Venous 68(H) 40 - 50 mmHg [facility] PO2, Venous 46 mmHg [facility] Comment: Interpretive Data No Reference Range Established Current Interpretive Data was last revised on 2017. HCO3 Venous, Calculated 32(H) 20 - 30 mmol/L [facility] BE, venous 3 mmol/L [facility] Comment: Interpretive Data No Reference Range Established Current Interpretive Data was last revised on 2017. Blood 02/27/2024 5:57 PM PROFESSOR OF HISTORY 02/27/2024 6:04 PM PROFESSOR OF HISTORY us Angelica ADAMS LAB BLOOD ORDERABLE S Final Result [facility] One [facility] [place] [address] * (ABNORMAL) Blood gas, venous (02/27/2024 3:43 PM PROFESSOR OF HISTORY) pH, Venous 7.29(L) 7.32 - 7.43 PCO2, Venous 61(H) 40 - 50 mmHg [facility] PO2, Venous 52 mmHg [facility] Comment: Interpretive Data No Reference Range Established Current Interpretive Data was last revised on 2017. HCO3 Venous, Calculated 31(H) 20 - 30 mmol/L [facility] BE, venous 2 mmol/L [facility] Comment: Interpretive Data No Reference Range Established Current Interpretive Data was last revised on 2017. Blood 02/27/2024 3:43 PM PROFESSOR OF HISTORY 02/27/2024 3:57 PM PROFESSOR OF HISTORY Krysten Cohn MD LAB BLOOD ORDERABLES Final Result [facility] One [facility] [place] [address] * Blood culture Blood (02/27/2024 12:52 PM PROFESSOR OF HISTORY) Report Final Report: No growth Blood 02/27/2024 12:5 2 PM PROFESSOR OF HISTORY 02/27/2024 1:29 PM PROFESSOR OF HISTORY Narrative [facility] - 03/02/2024 4:00 PM PROFESSOR OF HISTORY Collection->Peripheral 1. Blood cultures are incubated for [...] performance characteristics have been verified by the [facility] Microbiology Laboratory. For questions about this culture, contact the Microbiology Laboratory at [phone]. Interpretive data was last revised on 23. us Angelica Beata Ashley PA LAB MICROBIOLOGY - GENERAL ORDERABLES Final Result [facility] [place] [address] * Blood culture Blood (02/27/2024 12:52 PM PROFESSOR OF HISTORY) Report Final Report: No growth Blood 02/27/2024 12:5 2 PM PROFESSOR OF HISTORY 02/27/2024 1:29 PM PROFESSOR OF HISTORY Narrative [facility] - 03/02/2024 4:00 PM PROFESSOR OF HISTORY Collection->Peripheral 1. Blood cultures are incubated for [...] performance characteristics have been verified by the [facility]biology [facility]. For questions about this culture, contact the Microbiology Laboratory at [phone]. Interpretive data was last revised on 23. Angelica ADAMS LAB MICROBIOLOGY - GENERAL ORDERABLES Final Result [facility] Department [place] [address] * (ABNORMAL) Blood gas, venous (02/27/2024 12:19 PM PROFESSOR OF HISTORY) pH, Venous 7.31(L) 7.32 - 7.43 PCO2, Venous 58(H) 40 - 50 mmHg [facility] PO2, Venous 50 mmHg [facility] Comment: Interpretive Data No Reference Range Established Current Interpretive Data was last revised on 2017. HCO3 Venous, Calculated 31(H) 20 - 30 mmol/L [facility] BE, venous 3 mmol/L [facility] Comment: Interpretive Data No Reference Range Established Current Interpretive Data was last revised on 2017. Blood 02/27/2024 12:1 9 PM PROFESSOR OF HISTORY 02/27/2024 12:27 PM PROFESSOR OF HISTORY us Angelica ADAMS LAB BLOOD ORDERABLE S Final Result Performing Organization Address City/[facility]/ZIP Co de Phone Number [facility] Department [place] [address] * POCT glucose (02/27/2024 11:13 AM PROFESSOR OF HISTORY) [facility] Glucose, POC 118 70 - 199 mg/dL Blood 02/27/2024 11:1 3 AM PROFESSOR OF HISTORY 02/27/2024 11:13 AM PROFESSOR OF HISTORY us Krysten Cohn MD LAB POCT ORDERABLES - DEVICE Final Result Performing Organization Address City/[facility]/ZIP Co de Phone Number [facility] Department [place] [address] * (ABNORMAL) Differential, auto (02/27/2024 9:20 AM PROFESSOR OF HISTORY) Pathologist [facility] Neutrophil abs 15.4(H) 1.5 - 6.5 K/cumm Imm gran abs 0.5(H) 0.0 - 0.1 K/cumm [facility] Lymphocyte abs 1.3 0.8 - 3.3 K/cumm [facility] Monocyte abs 2.1(H) 0.2 - 0.8 K/cumm [facility] Eosinophil abs 0.1 0.0 - 0.5 K/cumm [facility] Basophil abs 0.1 0.0 - 0.1 K/cumm [facility] Neutrophil pct 79.0 % [facility] Comment: Interpretive Data Percent cell count reference ranges are not reported, since discordance with absolute values may lead to misinterpretation of CBC data. Current Interpretive Data was last revised on 2017. Imm gran pct 2.5 % [facility] Comment: Interpretive Data Percent cell count reference ranges are not reported, since discordance with absolute values may lead to misinterpretation of CBC data. Current Interpretive Data was last revised on 2017. Lymphocyte pct 6.5 % [facility] Comment: Interpretive Data Percent cell count reference ranges are not reported, since discordance with absolute values may lead to misinterpretation of CBC data. Current Interpretive Data was last revised on 2017. Monocyte pct 11.0 % [facility] Comment: Interpretive Data Percent cell count reference ranges are not reported, since discordance with absolute values may lead to misinterpretation of CBC data. Current Interpretive Data was last revised on 2017. Eosinophil pct 0.6 % [facility] Comment: Interpretive Data Percent cell count reference ranges are not reported, since discordance with absolute values may lead to misinterpretation of CBC data. Current Interpretive Data was last revised on 2017. Basophil pct 0.4 % [facility] Comment: Interpretive Data Percent cell count reference ranges are not reported, since discordance with absolute values may lead to misinterpretation of CBC data. Current Interpretive Data was last revised on 2017. Blood 02/27/2024 9:20 AM PROFESSOR OF HISTORY 02/27/2024 9:38 AM PROFESSOR OF HISTORY us Krysten Cohn MD LAB BLOOD ORDERABLES Final Result [facility] One [facility] Department [place] [address] * (ABNORMAL) CBC with auto differential (02/27/2024 9:20 AM PROFESSOR OF HISTORY) WBC 19.5(H) 3.8 - 9.9 K/cumm Hgb 8.1(L) 11.9 - 15.5 g/dL [facility] Hct 25.1(L) 35.6 - 45.5 % [facility] Plt 117(L) 150 - 400 K/cumm [facility] MPV 10.2 9.1 - 12.3 fL [facility] RBC 2.36(L) 3.90 - 5.20 M/cumm [facility] MCV 106.4(H) 81.3 - 96.4 fL [facility] MCH 34.3(H) 27.1 - 33.3 pg [facility] MCHC 32.3 32.3 - 35.7 g/dL [facility] RDW CV 15.5(H) 11.1 - 14.9 % [facility] RDW SD 59.7(H) 35.7 - 48.1 fL [facility] NRBC abs 0.07(H) 0.00 - 0.01 K/cumm [facility] Blood 02/27/2024 9:20 AM PROFESSOR OF HISTORY 02/27/2024 9:38 AM PROFESSOR OF HISTORY us Krysten Cohn MD LAB BLOOD ORDERABLES Final Result [facility] One [facility] Department [place] [address] * (ABNORMAL) eGFR (02/27/2024 9:00 AM PROFESSOR OF HISTORY) eGFR 19(L) >=60 mL/min/1. 73 m2 Comment: [...] last reviewed 2021. Blood 02/27/2024 9:00 AM PROFESSOR OF HISTORY 02/27/2024 9:39 AM PROFESSOR OF HISTORY Krysten Cohn MD LAB BLOOD ORDERABLES Final Result Performing Organization Address [facility] de Phone Number [facility] [place] [address] * (ABNORMAL) Protime-INR (02/27/2024 9:00 AM PROFESSOR OF HISTORY) PT 14.9(H) 9.7 - 13.0 sec INR 1.37(H) 0.90 - 1.20 [facility] Comment: Interpretive data Oral anticoagulant therapeutic ranges: Venous thromboembolism prophylaxis or treatment: 2.0-3.0 CARDIOLOGY Standard range: 2.0-3.0 High-intensity range: 2.5-3.5 Refer to indication-specific guidelines for appropriate target ranges for prosthetic heart valve replacement. Current interpretive data was last revised on 2019. Blood 02/27/2024 9:00 AM PROFESSOR OF HISTORY 02/27/2024 9:39 AM PROFESSOR OF HISTORY Krysten Cohn MD LAB BLOOD ORDERABLES Final Result Performing Organization Address [facility] Co de Phone Number [facility] [place] [address] * (ABNORMAL) Blood gas, venous (02/27/2024 9:00 AM PROFESSOR OF HISTORY) pH, Venous 7.30(L) 7.32 - 7.43 PCO2, Venous 59(H) 40 - 50 mmHg [facility] PO2, Venous 55 mmHg [facility] Comment: Interpretive Data No Reference Range Established Current Interpretive Data was last revised on 2017. HCO3 Venous, Calculated 30 20 - 30 mmol/L [facility] BE, venous 2 mmol/L [facility] Comment: Interpretive Data No Reference Range Established Current Interpretive Data was last revised on 2017. Blood 02/27/2024 9:00 AM PROFESSOR OF HISTORY 02/27/2024 9:32 AM PROFESSOR OF HISTORY us Krysten Cohn MD LAB BLOOD ORDERABLES Final Result [facility] One [facility] [place] [address] * (ABNORMAL) Comprehensive metabolic panel (02/27/2024 9:00 AM PROFESSOR OF HISTORY) Sodium 139 135 - 145 mmol/L Potassium, pl 3.5 3.3 - 4.9 mmol/L [facility] Chloride 100 97 - 110 mmol/L [facility] CO2 30 22 - 32 mmol/L [facility] Anion gap 9 2 - 15 mmol/L [facility] BUN 51(H) 6 - 25 mg/dL [facility] Creatinine 2.89(H) 0.60 - 1.10 mg/dL [facility] Glucose 107 70 - 199 mg/dL [facility] Comment: Interpretive Data Fasting glucose >/= 126 [...] 2022. Calcium 8.4(L) 8.5 - 10.3 mg/dL [facility] Bilirubin, total 0.7 0.1 - 1.2 mg/dL [facility] Protein, pl 5.5(L) 6.5 - 8.5 g/dL [facility] Albumin 2.5(L) 3.5 - 5.0 g/dL [facility] Alk phos 218(H) 40 - 130 Units/L [facility] ALT 10 7 - 45 Units/L [facility] AST 31 10 - 45 Units/L [facility] Blood 02/27/2024 9:00 AM PROFESSOR OF HISTORY 02/27/2024 9:39 AM PROFESSOR OF HISTORY us Krysten Cohn MD LAB BLOOD ORDERABLES Final Result [facility] One [facility] [place] [address] * Critical Care (02/27/2024 8:54 AM PROFESSOR OF HISTORY) Narrative Andrez Moyer MD - 02/27/2024 8:54 AM PROFESSOR OF HISTORY Andrez Moyer MD 02/27/2024 8:54 AM Critical [...] plan with the ICU team and other medical/communications consultant staff, making frequent assessments and decisions [...] Result * POCT glucose (02/27/2024 7:10 AM PROFESSOR OF HISTORY) Glucose, POC 100 70 - 199 mg/dL Blood 02/27/2024 7:10 AM PROFESSOR OF HISTORY 02/27/2024 7:10 AM PROFESSOR OF HISTORY us Krysten Cohn MD LAB POCT ORDERABLES - DEVICE Final Result Performing Organization Address City/[facility] Co de Phone Number [facility] [place] [address] * (ABNORMAL) Hemoglobin and hematocrit (02/27/2024 5:42 AM PROFESSOR OF HISTORY) [facility] Hgb 7.9(L) 11.9 - 15.5 g/dL Hct 24.7(L) 35.6 - 45.5 % [facility] Blood 02/27/2024 5:42 AM PROFESSOR OF HISTORY 02/27/2024 6:20 AM PROFESSOR OF HISTORY us Krysten Cohn MD LAB BLOOD ORDERABLES Final Result Performing Organization Address [facility] Co de Phone Number [facility] [place] [address] * POCT glucose (02/27/2024 3:09 AM PROFESSOR OF HISTORY) Glucose, POC 96 70 - 199 mg/dL Blood 02/27/2024 3:09 AM PROFESSOR OF HISTORY 02/27/2024 3:09 AM PROFESSOR OF HISTORY us Krysten Cohn MD LAB POCT ORDERABLES - DEVICE Final Result Performing Organization Address [facility] Co de Phone Number [facility] [place] [address] * POCT glucose (02/26/2024 11:33 PM PROFESSOR OF HISTORY) Glucose, POC 105 70 - 199 mg/dL Blood 02/26/2024 11:3 3 PM PROFESSOR OF HISTORY 02/26/2024 11:33 PM PROFESSOR OF HISTORY Krysten Cohn MD LAB POCT ORDERABLES - DEVICE Final Result Performing Organization Address [facility] Co de Phone Number [facility] [place] [address] * (ABNORMAL) Blood gas, venous (02/26/2024 11:05 PM PROFESSOR OF HISTORY) pH, Venous 7.32 7.32 - 7.43 PCO2, Venous 57(H) 40 - 50 mmHg [facility] PO2, Venous 46 mmHg [facility] Comment: Interpretive Data No Reference Range Established Current Interpretive Data was last revised on 2017. HCO3 Venous, Calculated 30 20 - 30 mmol/L [facility] BE, venous 2 mmol/L [facility] Comment: Interpretive Data No Reference Range Established Current Interpretive Data was last revised on 2017. Blood 02/26/2024 11:0 5 PM PROFESSOR OF HISTORY 02/26/2024 11:12 PM PROFESSOR OF HISTORY Beata Pérez NP LAB BLOOD ORDERABLES F inal Result Performing Organization Address [facility] de Phone Number [facility] [place] [address] * (ABNORMAL) Aerobic and anaerobic culture and gram stain Aspirate Leg, left (02/26/2024 9:35 PM PROFESSOR OF HISTORY) Direct Specimen Exam Stain: No polymorphonuclear leukocytes seen. No organisms seen. Report Final Report: Few Staphylococcus aureus Methicillin susceptible (MSSA) by penicillin binding protein 2a (PBP2a) testing. This isolate is presumed to be resistant to clindamycin based on detection of inducible clindamycin resistance. Clindamycin may still be effective in some patients. (.) [facility] Organism STAPHYLOCOCCUS AUREUS [facility] Aspirate (Leg, left) 02/26/2024 9:35 PM PROFESSOR OF HISTORY 02/26/2024 9:45 PM PROFESSOR OF HISTORY Narrative [facility] - 2024 12:42 PM PROFESSOR OF HISTORY Specimen received on an ESwab. Testing performed by [facility] Microbiology Laboratory ([phone]) Specimens submitted from normally sterile body sites [...] Staphylococcus aureus Ceftriaxone (SCARLETT) INTERPRETATIO N Susceptible Krysten Cohn MD LAB MICROBIOLOGY - GE NERAL ORDERABLES Final Result Performing Organization Address City/[facility]/ZIP Co de Phone Number [facility] [place] [address] * POCT glucose (02/26/2024 9:35 PM PROFESSOR OF HISTORY) [facility] Signature Glucose, POC 114 70 - 199 mg/dL Blood 02/26/2024 9:35 PM PROFESSOR OF HISTORY 02/26/2024 9:35 PM PROFESSOR OF HISTORY Krysten Cohn MD LAB POCT ORDERABLES - DEVICE Final Result Performing Organization Address City/[facility]/ZIP Co de Phone Number [facility] Department [place] [address] * Critical Care (02/26/2024 9:25 PM PROFESSOR OF HISTORY) Narrative Gabriel Tsang MD - 02/26/2024 9:25 PM PROFESSOR OF HISTORY Gabriel Tsang MD 02/27/2024 5:45 AM Critical [...] plan with the ICU team and other medical/communications consultant staff, making frequent assessments and decisions [...] Result * (ABNORMAL) eGFR (02/26/2024 7:22 PM PROFESSOR OF HISTORY) [facility] eGFR 16(L) >=60 mL/min/1. 73 m2 [...] last reviewed 2021. Blood 02/26/2024 7:22 PM PROFESSOR OF HISTORY 02/26/2024 7:41 PM PROFESSOR OF HISTORY us Krysten Cohn MD LAB BLOOD ORDERABLES Final Result [facility] One [facility] [place] [address] * (ABNORMAL) Differential, auto (02/26/2024 7:22 PM PROFESSOR OF HISTORY) Neutrophil abs 17.3(H) 1.5 - 6.5 K/cumm Imm gran abs 0.2(H) 0.0 - 0.1 K/cumm [facility] Lymphocyte abs 1.1 0.8 - 3.3 K/cumm [facility] Monocyte abs 1.7(H) 0.2 - 0.8 K/cumm [facility] Eosinophil abs 0.1 0.0 - 0.5 K/cumm [facility] Basophil abs 0.1 0.0 - 0.1 K/cumm [facility] Neutrophil pct 84.7 % [facility] Comment: Interpretive Data Percent cell count reference ranges are not reported, since discordance with absolute values may lead to misinterpretation of CBC data. Current Interpretive Data was last revised on 2017. Imm gran pct 1.0 % [facility] Comment: Interpretive Data Percent cell count reference ranges are not reported, since discordance with absolute values may lead to misinterpretation of CBC data. Current Interpretive Data was last revised on 2017. Lymphocyte pct 5.4 % [facility] Comment: Interpretive Data Percent cell count reference ranges are not reported, since discordance with absolute values may lead to misinterpretation of CBC data. Current Interpretive Data was last revised on 2017. Monocyte pct 8.3 % [facility] Comment: Interpretive Data Percent cell count reference ranges are not reported, since discordance with absolute values may lead to misinterpretation of CBC data. Current Interpretive Data was last revised on 2017. Eosinophil pct 0.3 % [facility] Comment: Interpretive Data Percent cell count reference ranges are not reported, since discordance with absolute values may lead to misinterpretation of CBC data. Current Interpretive Data was last revised on 2017. Basophil pct 0.3 % [facility] Comment: Interpretive Data Percent cell count reference ranges are not reported, since discordance with absolute values may lead to misinterpretation of CBC data. Current Interpretive Data was last revised on 2017. Blood 02/26/2024 7:22 PM PROFESSOR OF HISTORY 02/26/2024 7:40 PM PROFESSOR OF HISTORY Beata Pérez NP LAB BLOOD ORDERABLES F inal Result [facility] One [facility] Department [place] [address] * (ABNORMAL) CBC with auto differential (02/26/2024 7:22 PM PROFESSOR OF HISTORY) WBC 20.4(H) 3.8 - 9.9 K/cumm Hgb 8.1(L) 11.9 - 15.5 g/dL [facility] Hct 25.2(L) 35.6 - 45.5 % [facility] Plt 125(L) 150 - 400 K/cumm [facility] MPV 9.9 9.1 - 12.3 fL [facility] RBC 2.34(L) 3.90 - 5.20 M/cumm [facility] MCV 107.7(H) 81.3 - 96.4 fL [facility] MCH 34.6(H) 27.1 - 33.3 pg [facility] MCHC 32.1(L) 32.3 - 35.7 g/dL [facility] RDW CV 15.3(H) 11.1 - 14.9 % [facility] RDW SD 60.9(H) 35.7 - 48.1 fL [facility] NRBC abs 0.04(H) 0.00 - 0.01 K/cumm [facility] Blood 02/26/2024 7:22 PM PROFESSOR OF HISTORY 02/26/2024 7:40 PM PROFESSOR OF HISTORY Beata Pérez [employer] LAB BLOOD ORDERABLES F inal Result Performing Organization Address City/[facility] Co de Phone Number [facility] [place] [address] * (ABNORMAL) Protime-INR (02/26/2024 7:22 PM PROFESSOR OF HISTORY) Pathologist [facility] PT 15.5(H) 9.7 - 13.0 sec INR 1.42(H) 0.90 - 1.20 [facility] Comment: Interpretive data Oral anticoagulant therapeutic ranges: Venous thromboembolism prophylaxis or treatment: 2.0-3.0 CARDIOLOGY Standard range: 2.0-3.0 High-intensity range: 2.5-3.5 Refer to indication-specific guidelines for appropriate target ranges for prosthetic heart valve replacement. Current interpretive data was last revised on 2019. Blood 02/26/2024 7:22 PM PROFESSOR OF HISTORY 02/26/2024 7:40 PM PROFESSOR OF HISTORY Krysten Cohn MD LAB BLOOD ORDERABLES Final Result Performing Organization Address City/[facility] Co de Phone Number [facility] [place] [address] * (ABNORMAL) Phosphorus (02/26/2024 7:22 PM PROFESSOR OF HISTORY) Pathologist [facility] Phosphorus, pl 6.1(H) 2.3 - 4.5 mg/dL Blood 02/26/2024 7:22 PM PROFESSOR OF HISTORY 02/26/2024 7:41 PM PROFESSOR OF HISTORY Beata Pérez [employer] IN[employer] LAB BLOOD ORDERABLES F inal Result Performing Organization Address City/[facility] Co de Phone Number [facility] [place] [address] * Magnesium (02/26/2024 7:22 PM PROFESSOR OF HISTORY) Pathologist [facility] Magnesium 1.6 1.4 - 2.5 mg/dL Blood 02/26/2024 7:22 PM PROFESSOR OF HISTORY 02/26/2024 7:41 PM PROFESSOR OF HISTORY Beata Pérez [employer] IN[employer] LAB BLOOD ORDERABLES F inal Result Performing Organization Address [facility] de Phone Number [facility] [place] [address] * (ABNORMAL) Blood gas, venous (02/26/2024 7:22 PM PROFESSOR OF HISTORY) pH, Venous 7.31(L) 7.32 - 7.43 PCO2, Venous 60(H) 40 - 50 mmHg [facility] PO2, Venous 47 mmHg [facility] Comment: Interpretive Data No Reference Range Established Current Interpretive Data was last revised on 2017. HCO3 Venous, Calculated 31(H) 20 - 30 mmol/L [facility] BE, venous 3 mmol/L [facility] Comment: Interpretive Data No Reference Range Established Current Interpretive Data was last revised on 2017. Blood 02/26/2024 7:22 PM PROFESSOR OF HISTORY 02/26/2024 7:32 PM PROFESSOR OF HISTORY Beata Pérez [employer] LAB BLOOD ORDERABLES F inal Result Performing Organization Address [facility] de Phone Number [facility] [place] [address] * (ABNORMAL) Comprehensive metabolic panel (02/26/2024 7:22 PM PROFESSOR OF HISTORY) Sodium 136 135 - 145 mmol/L Potassium, pl 3.5 3.3 - 4.9 mmol/L [facility] Chloride 95(L) 97 - 110 mmol/L [facility] CO2 29 22 - 32 mmol/L [facility] Anion gap 12 2 - 15 mmol/L [facility] BUN 50(H) 6 - 25 mg/dL [facility] Creatinine 3.28(H) 0.60 - 1.10 mg/dL [facility] Glucose 106 70 - 199 mg/dL [facility] Comment: Interpretive Data Fasting glucose >/= 126 [...] 2022. Calcium 8.4(L) 8.5 - 10.3 mg/dL [facility] Bilirubin, total 0.6 0.1 - 1.2 mg/dL [facility] Protein, pl 5.5(L) 6.5 - 8.5 g/dL [facility] Albumin 2.3(L) 3.5 - 5.0 g/dL [facility] Alk phos 190(H) 40 - 130 Units/L [facility] ALT 11 7 - 45 Units/L [facility] AST 32 10 - 45 Units/L [facility] Blood 02/26/2024 7:22 PM PROFESSOR OF HISTORY 02/26/2024 7:41 PM PROFESSOR OF HISTORY Krysten Cohn MD LAB BLOOD ORDERABLES Final Result [facility] One [facility] Department [place] [address] * XR Chest 1 View (02/26/2024 6:26 PM PROFESSOR OF HISTORY) Anatomical Region Laterality Modality Body, Chest N/A Computed Radiogr aphy 02/26/2024 8:26 PM PROFESSOR OF HISTORY Impressions 02/26/2024 8:26 PM PROFESSOR OF HISTORY The current study is compared with the [...] Alexa Hernández M.D. Narrative 02/26/2024 8:26 PM PROFESSOR OF HISTORY EXAMINATION: 1 view chest radiograph Procedure Note [...] signed by: Alexa Hernández M.D. Beata Pérez NP IMG XR PROCEDURES Nicole l Result * (ABNORMAL) Blood gas, venous (02/26/2024 5:14 PM PROFESSOR OF HISTORY) pH, Venous 7.31(L) 7.32 - 7.43 PCO2, Venous 58(H) 40 - 50 mmHg [facility] PO2, Venous 49 mmHg [facility] Comment: Interpretive Data No Reference Range Established Current Interpretive Data was last revised on 2017. HCO3 Venous, Calculated 30 20 - 30 mmol/L [facility] BE, venous 2 mmol/L [facility] Comment: Interpretive Data No Reference Range Established Current Interpretive Data was last revised on 2017. Blood 02/26/2024 5:14 PM PROFESSOR OF HISTORY 02/26/2024 5:37 PM PROFESSOR OF HISTORY Beata Pérez NP LAB BLOOD ORDERABLES F inal Result [facility] One [facility] [place] [address] * CT Chest PE (CTA) W Contrast (02/26/2024 4:33 PM PROFESSOR OF HISTORY) Anatomical Region Laterality Modality Body N/A Computed Tomogra phy 02/26/2024 4:39 PM PROFESSOR OF HISTORY Impressions 02/26/2024 4:42 PM PROFESSOR OF HISTORY No pulmonary embolism. Findings of mild-moderate pulmonary edema. Dictated by: Cuca Bhakta MD, MPH The radiology attending physician has personally reviewed this study, and had reviewed and/or edited this written report and agrees with it. Electronically signed by: Kehinde Otto M.D., MPH Narrative 02/26/2024 4:42 PM PROFESSOR OF HISTORY EXAMINATION: CT CHEST PE (CTA) W CONTRAST [...] Extremity Left W Contrast (02/26/2024 4:33 PM PROFESSOR OF HISTORY) Anatomical Region Laterality Modality Lower Extremities Left Computed Tomog sheela 02/26/2024 5:07 PM PROFESSOR OF HISTORY Impressions 02/26/2024 5:13 PM PROFESSOR OF HISTORY 1. Large left prepatellar rim-enhancing fluid collection [...] John Contreras M.D. Narrative 02/26/2024 5:13 PM PROFESSOR OF HISTORY EXAMINATION: CT ENTIRE LOWER EXTREMITY LEFT W [...] Result * POCT glucose (02/26/2024 3:34 PM PROFESSOR OF HISTORY) Glucose, POC 114 70 - 199 mg/dL Blood 02/26/2024 3:34 PM PROFESSOR OF HISTORY 02/26/2024 3:34 PM PROFESSOR OF HISTORY Krysten Cohn MD LAB POCT ORDERABLES - DEVICE Final Result Performing Organization Address City/State/[facility] Co de Phone Number [facility] [place] [address] * US Vein Duplex Lower Extremity Bilateral Complete (02/26/2024 12:41 PM PROFESSOR OF HISTORY) Anatomical Region Laterality Modality Vascular Bilateral Ultrasound 02/26/2024 11:3 1 AM PROFESSOR OF HISTORY Narrative 02/27/2024 10:22 PM PROFESSOR OF HISTORY [facility] [employer] - Department of Vascular Surgery, Vascular Laboratory [address] [place] [id number] Lower Extremity Venous Ultrasound Report Patient Name: NOLVIA BRANCH M : 1970 (53y 11m) Study Date: 02/26/2024 11:31:12 AM Gender: F Tech: [facility] Location: [id number] Ref Provider: ANDREZ MOYER Quality: Adequate Order [...] bilateral lower extremity swelling - FINDINGS: Performing Night Nurse: Merna Lynne RDMS, RVT. Bilateral: Venous Doppler [...] Ander Jaffe MD FACS 02/27/2024 10:22:04 PM PROFESSOR OF HISTORY Procedure Note Ander Jaffe MD - 02/27/2024 [employer] - Department of Vascular Surgery,Vascular Laboratory [address] [place] [address] Lower Extremity Venous Ultrasound Report Patient Name: NOLVIA BRANCH M : 1970 (53y 11m) Study Date: 02/26/2024 11:31:12 AM Gender: F Tech: [facility] Location: [id number] Ref Provider: ANDREZ MOYER Quality: Adequate Order Provider: ANDREZ MOYER PROCEDURES: Vascular Report: Venous Duplex imaging was performed bilaterally in the lower extremities.The common femoral, femoral, popliteal, posterior tibial, peroneal veins wereevaluated for patency, spontaneity and phasicity with Doppler, compression and augmentationmaneuvers. Great saphenous vein proximal at the junction was evaluated with compressionmaneuvers. INDICATIONS: bilateral lower extremity swelling - FINDINGS: Performing Night Nurse: Merna Lynne RDMS, T. Bilateral: Venous Doppler [...] above. Electronically Signed By: Ander Jaffe MD [facility] 02/27/2024 10:22:04 PM PROFESSOR OF HISTORY us Andrez Moyer MD [facility] US PROCEDURES Final Result * XR Chest 1 View (02/26/2024 12:35 PM PROFESSOR OF HISTORY) Anatomical Region Laterality Modality Body, Chest N/A Computed Radiogr aphy 02/26/2024 12:5 0 PM PROFESSOR OF HISTORY Impressions 02/26/2024 12:50 PM PROFESSOR OF HISTORY Comparison is made to chest radiograph dated [...] Minnie Rivera M.D. Narrative 02/26/2024 12:50 PM PROFESSOR OF HISTORY EXAMINATION: 1 view chest radiograph Procedure Note [...] * Blood culture Blood (02/26/2024 12:35 PM PROFESSOR OF HISTORY) Report Final Report: No growth Blood 02/26/2024 12:3 5 PM PROFESSOR OF HISTORY 02/26/2024 1:25 PM PROFESSOR OF HISTORY Chantell [facility] - 03/01/2024 4:00 PM PROFESSOR OF HISTORY From a different site than #1. Collection->Peripheral [...] performance characteristics have been verified by the [facility] Microbiology Laboratory. For questions about this culture, contact the Microbiology Laboratory at [phone]. Interpretive data was last revised on 23. Krysten Cohn MD LAB MICROBIOLOGY - NERAL ORDERABLES Final Result [facility] One [facility] Department [place] [address] * Oxyhemoglobin, central venous (02/26/2024 12:24 PM PROFESSOR OF HISTORY) Oxyhemoglobin, CV 73.1 % Comment: Interpretive Data No reference range established. Current interpretive data was last revised 2019. Blood 02/26/2024 12:2 4 PM PROFESSOR OF HISTORY 02/26/2024 12:31 PM PROFESSOR OF HISTORY Krysten Cohn MD LAB BLOOD ORDERABLES Final Result [facility] [place] [address] * (ABNORMAL) Erythrocyte sedimentation rate (02/26/2024 12:18 PM PROFESSOR OF HISTORY) Pathologist [facility] Erythrocyte sedimentation rate 67(H) 1 - 30 mm/hr Blood 02/26/2024 12:1 8 PM PROFESSOR OF HISTORY 02/26/2024 12:50 PM PROFESSOR OF HISTORY Result [facility] Beata Pérez NP LAB BLOOD ORDERABLES F inal Result Performing Organization Address City/[facility] Co de Phone Number [facility] Department [place] [address] * (ABNORMAL) CRP (acute phase) (02/26/2024 12:18 PM PROFESSOR OF HISTORY) Pathologist [facility] CRP 541.4(H) <=10.0 mg/L Comment:Repeated on Dilution Blood 02/26/2024 12:1 8 PM PROFESSOR OF HISTORY 02/26/2024 12:49 PM PROFESSOR OF HISTORY Beata Pérez NP LAB BLOOD ORDERABLES F inal Result Performing Organization Address City/[facility] Co de Phone Number [facility] [place] [address] * (ABNORMAL) Blood gas, venous (02/26/2024 12:18 PM PROFESSOR OF HISTORY) pH, Venous 7.31(L) 7.32 - 7.43 PCO2, Venous 58(H) 40 - 50 mmHg [facility] PO2, Venous 39 mmHg [facility] Comment: Interpretive Data No Reference Range Established Current Interpretive Data was last revised on 2017. HCO3 Venous, Calculated 30 20 - 30 mmol/L [facility] BE, venous 2 mmol/L [facility] Comment: Interpretive Data No Reference Range Established Current Interpretive Data was last revised on 2017. Blood 02/26/2024 12:1 8 PM PROFESSOR OF HISTORY 02/26/2024 12:31 PM PROFESSOR OF HISTORY Beata Pérez NP LAB BLOOD ORDERABLES F inal Result Performing Organization Address City/[facility]/ZIP Co de Phone Number [facility] Department [place] [address] * POCT glucose (02/26/2024 11:45 AM PROFESSOR OF HISTORY) Pathologist [facility] Glucose, POC 80 70 - 199 mg/dL Blood 02/26/2024 11:4 5 AM PROFESSOR OF HISTORY 02/26/2024 11:45 AM PROFESSOR OF HISTORY Krysten Cohn MD LAB POCT ORDERABLES - DEVICE Final Result Performing Organization Address City/[facility]/ZIP Co de Phone Number [facility] [place] [address] * [place] ARTL CATHJ/CANNULJ MNTR/TRANSFUSION SPX PRQ (02/26/2024 11:24 AM PROFESSOR OF HISTORY) Narrative Andrez Moyer MD - 02/26/2024 11:24 AM PROFESSOR OF HISTORY Odalis Beebe MD 02/26/2024 11:26 AM Arterial Line Insertion Date/Time: 02/26/2024 11:24 AM Performed by: Odalis Beebe MD Authorized by: Odalis Beebe MD [place] Protocol: RN Notified of Procedure: yes Informed consent: Patient/airline security representative/guardian agrees and accepts Patient's stated name/ [...] (ABNORMAL) Blood culture Blood (02/26/2024 11:13 AM PROFESSOR OF HISTORY) Pathologist [facility] Direct Specimen Exam Molecular Analysis: Staphylococcus epidermidis (methicillin-resis tant) detected by tru ePlex BCID-GP panel. Single positive culture may represent contamination. This test does not exclude the possibility of a mixed bacterial infection. Notification of: Staphylococcus epidermidis (methicillin-resis tant) called to and read back by: Jones London MD, on 02/27/2024 10:23:47 by: Jarret Harrison([facility]) Direct Specimen Exam Stain: Gram Positive Cocci in clusters Time to culture positivity (aerobic media): 18.7 hours Notification of: Gram Positive Cocci in clusters called to and read back by: Jones London MD, on 02/27/2024 08:40:08 by: Jarret Harrison([facility]) [facility] Report Final Report: Staphylococcus epidermidis Single blood culture positive for this microorganism. Isolate is a possible contaminant. If a similar isolate is recovered from a second blood culture collected within 3 days of this culture, both will be evaluated and, if determined to be the same species, antimicrobial susceptibility testing will be performed. (.) [facility] Organism STAPHYLOCOCCUS EPIDERMIDIS [facility] Blood 02/26/2024 11:1 3 AM PROFESSOR OF HISTORY 02/26/2024 1:24 PM PROFESSOR OF HISTORY Narrative MADELEINE TERRY - 03/02/2024 9:35 AM PROFESSOR OF HISTORY Collection->Peripheral 1. Blood cultures are incubated for [...] performance characteristics have been verified by the [facility] Microbiology Laboratory. For questions about this culture, contact the Microbiology Laboratory at [phone]. Interpretive data was last revised on 23. Krysten Cohn MD LAB MICROBIOLOGY - [facility] ORDERABLES Final Result [facility] Department [place] [address] * TRANSTHORACIC ECHO (TTE) COMPLETE W DOPPLER/CF W CONTRAST (02/26/2024 10:03 AM PROFESSOR OF HISTORY) LV EF 55 % CARDIOREPORT Anatomical Region Laterality Modality Ultrasound 02/26/2024 9:30 AM PROFESSOR OF HISTORY Narrative 02/26/2024 10:21 AM PROFESSOR OF HISTORY Patient name: Nolvia Branch Date of test: 02/26/2024 Type of test: TTE w/Doppler Hospital #: 0 Date of : 1970 (F) Night Nurse: Marley Barnett RDCS Referring Physician: ANDREZ MOYER MD Contrast Agent: 1.1 ml Optison Administered, (1.9 ml wasted). Contrast Administered by: floor RN Supervised/Interpreted by: Pastora Rodriguez MD Diagnosis: Dyspnea/Shortness of breath Location: [facility] Reason for test: Acute hypoxia [...] 2=Hypo 3=Akinetic 4=Dyskin./Aneurysm 0=Not visualized) Parasternal [place]:MAS=1 BAS=1 MIL=1 COY=1 Parasternal [place]:MAS=1 MIS=1 GA=1 MIL=1 MAL=1 MA=1 Apical 4 Chambers:=1 MIS=1 BIS=1 BAL=1 MAL=1 AL=1 AC=1 Apical 2 Chambers:AI=1 GA=1 BI=1 BA=1 MA=1 AA=1 AC=1 LV Global [...] MD By signing this report, the attending paving plant operator certifies that he or she has personally supervised and interpreted the echocardiogram and has reviewed and or edited and agrees with the written comments contained within the report. Procedure Note Dave Rodriguez MD - 02/26/2024 Patient name: Nolvia Branch Date of test: 02/26/2024 Type of test: TTE w/Doppler [facility] #: 0 Date of : 1970 (F) Night Nurse: Marley Barnett RDCS Referring Physician: ANDREZ MOYER MD Contrast Agent: 1.1 ml Optison Administered, (1.9 ml wasted). Contrast Administered by: floor RN Supervised/Interpreted by: Pastora Rodriguez MD Diagnosis: Dyspnea/Shortness of breath Location: [facility] Reason for test: Acute hypoxia [...] 2=Hypo 3=Akinetic 4=Dyskin./Aneurysm 0=Not visualized) Parasternal [place]:MAS=1 BAS=1 MIL=1 COY=1 Parasternal [place]:MAS=1 MIS=1 GA=1 MIL=1 MAL=1 MA=1 Apical 4 Chambers:=1 MIS=1 BIS=1 BAL=1 MAL=1 AL=1 AC=1 Apical 2 Chambers:AI=1 GA=1 BI=1 BA=1 MA=1 AA=1 AC=1 LV Global [...] MD By signing this report, the attending paving plant operator certifies that he or she has personally supervised and interpreted the echocardiogram and has reviewed and or edited and agrees with the written comments contained within the report. us Andrez Moyer MD CV ECHO PROCEDURES Final Result * IL INSJ NON-TUNNELED CENTRAL VENOUS CATH AGE 5 YR/> (02/26/2024 10:00 AM PROFESSOR OF HISTORY) Andrez Costa MD - 02/26/2024 10:00 AM PROFESSOR OF HISTORY Ann Whitmore MD 02/27/2024 2:43 PM Trialysis catheter insertion Date/Time: 02/26/2024 10:00 AM Performed by: Ann Whitmore MD Authorized by: Ann Whitmore MD [place] Protocol: RN Notified of Procedure: yes Informed [...] and Chemistries, Venous - (02/26/2024 9:56 AM PROFESSOR OF HISTORY) pH, Morris POC 7.32 7.32 - 7.43 pCO2, morris POC 56(H) 40 - 50 mmHg [facility] pO2, morris POC 54 mmHg [facility] Na, POC 136 135 - 145 mmol/L [facility] K POC 3.3 3.3 - 4.9 mmol/L [facility] Comment: Interpretive Data Not all point of care methods assess for hemolysis. Confirm with instrument and retest K+ if not consistent with clinical signs and symptoms. Current Interpretive Data was last revised on 2023. Cl, POC 99 97 - 110 mmol/L [facility] Ionized Ca, POC 4.81 4.50 - 5.10 mg/dL [facility] Glucose, POC 104 70 - 199 mg/dL [facility] Lactate, POC 1.3 0.7 - 2.2 mmol/L [facility] O2 Sat, Morris POC (Angelica) 85 % [facility] Base excess, POC 2.2 mmol/L [facility] HCO3, Morris POC 29 20 - 30 mmol/L [facility] Hct, POC 25.0(L) 36.3 - 45.3 % [facility] Total Hb, POC 8.4(L) 11.9 - 15.5 g/dL [facility] Blood 02/26/2024 9:56 AM PROFESSOR OF HISTORY 02/26/2024 9:56 AM PROFESSOR OF HISTORY Krysten Cohn MD LAB POCT ORDERABLES - DEVICE Final Result Performing Organization Address City/[facility]/ZIP Co de Phone Number [facility] [place] [address] * Lactate (02/26/2024 9:50 AM PROFESSOR OF HISTORY) [facility] Lactate 1.3 0.7 - 2.0 mmol/L Blood 02/26/2024 9:50 AM PROFESSOR OF HISTORY 02/26/2024 10:12 AM PROFESSOR OF HISTORY Krysten Cohn MD LAB BLOOD ORDERABLES Final Result Performing Organization Address [facility]/State/ZIP Co de Phone Number [facility] [place] [address] * (ABNORMAL) eGFR (02/26/2024 9:50 AM PROFESSOR OF HISTORY) eGFR 15(L) >=60 mL/min/1. 73 m2 Comment: [...] last reviewed 2021. Blood 02/26/2024 9:50 AM PROFESSOR OF HISTORY 02/26/2024 10:12 AM PROFESSOR OF HISTORY us Krysten Cohn MD LAB BLOOD ORDERABLES Final Result [facility] One [facility] [place] [address] * (ABNORMAL) Differential, auto (02/26/2024 9:50 AM PROFESSOR OF HISTORY) Neutrophil abs 17.6(H) 1.5 - 6.5 K/cumm Imm gran abs 0.2(H) 0.0 - 0.1 K/cumm [facility] Lymphocyte abs 1.0 0.8 - 3.3 K/cumm [facility] Monocyte abs 1.9(H) 0.2 - 0.8 K/cumm [facility] Eosinophil abs 0.1 0.0 - 0.5 K/cumm [facility] Basophil abs 0.2(H) 0.0 - 0.1 K/cumm [facility] Neutrophil pct 84.5 % [facility] Comment: Interpretive Data Percent cell count reference ranges are not reported, since discordance with absolute values may lead to misinterpretation of CBC data. Current Interpretive Data was last revised on 2017. Imm gran pct 0.9 % [facility] Comment: Interpretive Data Percent cell count reference ranges are not reported, since discordance with absolute values may lead to misinterpretation of CBC data. Current Interpretive Data was last revised on 2017. Lymphocyte pct 4.6 % [facility] Comment: Interpretive Data Percent cell count reference ranges are not reported, since discordance with absolute values may lead to misinterpretation of CBC data. Current Interpretive Data was last revised on 2017. Monocyte pct 8.9 % [facility] Comment: Interpretive Data Percent cell count reference ranges are not reported, since discordance with absolute values may lead to misinterpretation of CBC data. Current Interpretive Data was last revised on 2017. Eosinophil pct 0.3 % [facility] Comment: Interpretive Data Percent cell count reference ranges are not reported, since discordance with absolute values may lead to misinterpretation of CBC data. Current Interpretive Data was last revised on 2017. Basophil pct 0.8 % [facility] Comment: Interpretive Data Percent cell count reference ranges are not reported, since discordance with absolute values may lead to misinterpretation of CBC data. Current Interpretive Data was last revised on 2017. Blood 02/26/2024 9:50 AM PROFESSOR OF HISTORY 02/26/2024 10:11 AM PROFESSOR OF HISTORY us Krysten Cohn MD LAB BLOOD ORDERABLES Final Result [facility] One [facility] [place] [address] * (ABNORMAL) CBC with auto differential (02/26/2024 9:50 AM PROFESSOR OF HISTORY) WBC 20.8(H) 3.8 - 9.9 K/cumm Hgb 8.3(L) 11.9 - 15.5 g/dL [facility] Hct 26.5(L) 35.6 - 45.5 % [facility] Plt 137(L) 150 - 400 K/cumm [facility] MPV 9.9 9.1 - 12.3 fL [facility] RBC 2.44(L) 3.90 - 5.20 M/cumm [facility] MCV 108.6(H) 81.3 - 96.4 fL [facility] MCH 34.0(H) 27.1 - 33.3 pg [facility] MCHC 31.3(L) 32.3 - 35.7 g/dL [facility] RDW CV 15.4(H) 11.1 - 14.9 % [facility] RDW SD 61.4(H) 35.7 - 48.1 fL [facility] NRBC abs 0.02(H) 0.00 - 0.01 K/cumm [facility] Blood 02/26/2024 9:50 AM PROFESSOR OF HISTORY 02/26/2024 10:11 AM PROFESSOR OF HISTORY us Krysten Cohn MD LAB BLOOD ORDERABLES Final Result Performing Organization Address [facility] de Phone Number [facility] [place] [address] * (ABNORMAL) Blood gas, venous (02/26/2024 9:50 AM PROFESSOR OF HISTORY) Pathologist [facility] pH, Venous 7.29(L) 7.32 - 7.43 PCO2, Venous 62(H) 40 - 50 mmHg [facility] PO2, Venous 41 mmHg [facility] Comment: Interpretive Data No Reference Range Established Current Interpretive Data was last revised on 2017. HCO3 Venous, Calculated 31(H) 20 - 30 mmol/L [facility] BE, venous 2 mmol/L [facility] Comment: Interpretive Data No Reference Range Established Current Interpretive Data was last revised on 2017. Blood 02/26/2024 9:50 AM PROFESSOR OF HISTORY 02/26/2024 10:04 AM PROFESSOR OF HISTORY us Krysten Cohn MD LAB BLOOD ORDERABLES Final Result Performing Organization Address [facility] de Phone Number [facility] [place] [address] * (ABNORMAL) Comprehensive metabolic panel (02/26/2024 9:50 AM PROFESSOR OF HISTORY) Sodium 136 135 - 145 mmol/L Potassium, pl 3.5 3.3 - 4.9 mmol/L [facility] Chloride 94(L) 97 - 110 mmol/L [facility] CO2 30 22 - 32 mmol/L [facility] Anion gap 12 2 - 15 mmol/L [facility] BUN 50(H) 6 - 25 mg/dL [facility] Creatinine 3.55(H) 0.60 - 1.10 mg/dL [facility] Glucose 97 70 - 199 mg/dL [facility] Comment: Interpretive Data Fasting glucose >/= 126 [...] 2022. Calcium 9.1 8.5 - 10.3 mg/dL [facility] Bilirubin, total 0.6 0.1 - 1.2 mg/dL [facility] Protein, pl 5.8(L) 6.5 - 8.5 g/dL [facility] Albumin 2.3(L) 3.5 - 5.0 g/dL [facility] Alk phos 183(H) 40 - 130 Units/L [facility] ALT 13 7 - 45 Units/L [facility] AST 41 10 - 45 Units/L [facility] Blood 02/26/2024 9:50 AM PROFESSOR OF HISTORY 02/26/2024 10:12 AM PROFESSOR OF HISTORY us Krysten Cohn MD LAB BLOOD ORDERABLES Final Result [facility] One [facility] Department [place] [address] * XR Chest 1 View (02/26/2024 9:09 AM PROFESSOR OF HISTORY) Anatomical Region Laterality Modality Body, Chest N/A Computed Radiogr aphy 02/26/2024 9:56 AM PROFESSOR OF HISTORY Impressions 02/26/2024 9:56 AM PROFESSOR OF HISTORY The current study is compared with the prior radiograph dated 02/25/2024. Again seen are patchy multifocal airspace opacities concerning for pneumonia. No effusions. There is no pneumothorax.. The heart and mediastinal contours are stable.. Right shoulder prosthesis partially imaged Electronically signed by: Alexa Hernández M.D. Narrative 02/26/2024 9:56 AM PROFESSOR OF HISTORY EXAMINATION: 1 view chest radiograph Procedure Note Alexa Hernández MD - 02/26/2024 EXAMINATION: 1 view chest radiograph IMPRESSION: The current study is compared with the prior radiograph dated 02/25/2024. Again seen are patchy multifocal airspace opacities concerning for pneumonia. No effusions. There is no pneumothorax.. The heart and mediastinal contours are stable.. Right shoulder prosthesis partially imaged Electronically signed by: Alexa Hernández M.D. Andrez Moyer MD IMG XR PROCEDURES Final Result * (ABNORMAL) eGFR (02/26/2024 7:52 AM PROFESSOR OF HISTORY) eGFR 14(L) >=60 mL/min/1. 73 m2 Comment: [...] last reviewed 2021. Blood 02/26/2024 7:52 AM PROFESSOR OF HISTORY 02/26/2024 8:04 AM PROFESSOR OF HISTORY Krysten Cohn MD LAB BLOOD ORDERABLES Final Result Performing Organization Address [facility] Co de Phone Number [facility] One [facility] Department [place] [address] * (ABNORMAL) Protime-INR (02/26/2024 7:52 AM PROFESSOR OF HISTORY) PT 14.8(H) 9.7 - 13.0 sec INR 1.36(H) 0.90 - 1.20 [facility] Comment: Interpretive data Oral anticoagulant therapeutic ranges: Venous thromboembolism prophylaxis or treatment: 2.0-3.0 CARDIOLOGY Standard range: 2.0-3.0 High-intensity range: 2.5-3.5 Refer to indication-specific guidelines for appropriate target ranges for prosthetic heart valve replacement. Current interpretive data was last revised on 2019. Blood 02/26/2024 7:52 AM PROFESSOR OF HISTORY 02/26/2024 8:03 AM PROFESSOR OF HISTORY us Krysten Cohn MD LAB BLOOD ORDERABLES Final Result Performing Organization Address [facility] Co de Phone Number [facility] One [facility] Department [place] [address] * Infection Prevention MRSA Only (Staphylococcus aureus) Culture Nasal (02/26/2024 7:52 AM PROFESSOR OF HISTORY) Report Final Report: Negative Nasal 02/26/2024 7:52 AM PROFESSOR OF HISTORY 02/26/2024 1:31 PM PROFESSOR OF HISTORY Narrative [facility] - 02/27/2024 2:19 PM PROFESSOR OF HISTORY Testing performed by [facility]biology [facility] ([phone]). us Krysten Cohn MD LAB MICROBIOLOGY - GE NERAL ORDERABLES Final Result Performing Organization Address City/[facility] de Phone Number [facility] Department [place] [address] * (ABNORMAL) Blood gas, venous (02/26/2024 7:52 AM PROFESSOR OF HISTORY) pH, Venous 7.31(L) 7.32 - 7.43 PCO2, Venous 56(H) 40 - 50 mmHg [facility] PO2, Venous 93 mmHg [facility] Comment: Interpretive Data No Reference Range Established Current Interpretive Data was last revised on 2017. HCO3 Venous, Calculated 30 20 - 30 mmol/L [facility] BE, venous 2 mmol/L [facility] Comment: Interpretive Data No Reference Range Established Current Interpretive Data was last revised on 2017. Blood 02/26/2024 7:52 AM PROFESSOR OF HISTORY 02/26/2024 7:59 AM PROFESSOR OF HISTORY Krysten Cohn MD LAB BLOOD ORDERABLES Final Result Performing Organization Address [facility] de Phone Number [facility] Department [place] [address] * (ABNORMAL) Comprehensive metabolic panel (02/26/2024 7:52 AM PROFESSOR OF HISTORY) Pathologist [facility] Sodium 138 135 - 145 mmol/L Potassium, pl 3.5 3.3 - 4.9 mmol/L [facility] Chloride 97 97 - 110 mmol/L [facility] CO2 30 22 - 32 mmol/L [facility] Anion gap 11 2 - 15 mmol/L [facility] BUN 48(H) 6 - 25 mg/dL [facility] Creatinine 3.56(H) 0.60 - 1.10 mg/dL [facility] Glucose 102 70 - 199 mg/dL [facility] Comment: Interpretive Data Fasting glucose >/= 126 [...] Calcium 7.9(L) 8.5 - 10.3 mg/dL [facility] Bilirubin, total 0.6 0.1 - 1.2 mg/dL [facility] Protein, pl 5.4(L) 6.5 - 8.5 g/dL [facility] Albumin 2.5(L) 3.5 - 5.0 g/dL [facility] Alk phos 173(H) 40 - 130 Units/L [facility] ALT 10 7 - 45 Units/L [facility] AST 38 10 - 45 Units/L [facility] Blood 02/26/2024 7:52 AM PROFESSOR OF HISTORY 02/26/2024 8:04 AM PROFESSOR OF HISTORY us Krysten Cohn MD LAB BLOOD ORDERABLES Final Result Performing Organization Address [facility] Co de Phone Number [facility] Department [place] [address] * POCT glucose (02/26/2024 7:14 AM PROFESSOR OF HISTORY) [facility] Glucose, POC 85 70 - 199 mg/dL Blood 02/26/2024 7:14 AM PROFESSOR OF HISTORY 02/26/2024 7:14 AM PROFESSOR OF HISTORY us Krysten Cohn MD LAB POCT ORDERABLES - DEVICE Final Result Performing Organization Address City/[facility]/ZIP Co de Phone Number [facility] Department [place] [address] * Critical Care (02/26/2024 7:12 AM PROFESSOR OF HISTORY) Narrative Andrez Moyer MD - 02/26/2024 7:12 AM PROFESSOR OF HISTORY Andrez Moyer MD 02/26/2024 7:13 AM Critical [...] plan with the ICU team and other medical/communications consultant staff, making frequent assessments and decisions [...] (ABNORMAL) Hemoglobin and hematocrit (02/26/2024 3:29 AM PROFESSOR OF HISTORY) Hgb 8.5(L) 11.9 - 15.5 g/dL Hct 27.4(L) 35.6 - 45.5 % [facility] Blood 02/26/2024 3:29 AM PROFESSOR OF HISTORY 02/26/2024 3:39 AM PROFESSOR OF HISTORY us Krysten Cohn MD LAB BLOOD ORDERABLES Final Result [facility] Department [place] [address] * (ABNORMAL) Blood gas, venous (02/26/2024 3:29 AM PROFESSOR OF HISTORY) pH, Venous 7.26(L) 7.32 - 7.43 PCO2, Venous 65(H) 40 - 50 mmHg [facility] PO2, Venous 41 mmHg [facility] Comment: Interpretive Data No Reference Range Established Current Interpretive Data was last revised on 2017. HCO3 Venous, Calculated 30 20 - 30 mmol/L [facility] BE, venous 1 mmol/L [facility] Comment: Interpretive Data No Reference Range Established Current Interpretive Data was last revised on 2017. Blood 02/26/2024 3:29 AM PROFESSOR OF HISTORY 02/26/2024 3:35 AM PROFESSOR OF HISTORY us Krysten Cohn MD LAB BLOOD ORDERABLES Final Result [facility] One [facility] Department [place] [address] * XR Knee Left 1 or 2 Views (02/26/2024 3:14 AM PROFESSOR OF HISTORY) Anatomical Region Laterality Modality Lower Extremities, Knee Left Digital Radiography 02/26/2024 6:03 AM PROFESSOR OF HISTORY Impressions 02/26/2024 6:03 AM PROFESSOR OF HISTORY 1. Limited evaluation of the left knee with mild to moderate tricompartmental osteoarthritis and without radiographic evidence of septic arthritis Electronically signed by: Jeremy Martin MD, PHD Narrative 02/26/2024 6:03 AM PROFESSOR OF HISTORY EXAMINATION: Left knee one or 2 views [...] IMG XR PROCEDURES Fin al Result * IL INSJ NON-TUNNELED CENTRAL VENOUS CATH AGE 5 YR/> (02/26/2024 12:23 AM PROFESSOR OF HISTORY) Narrative Barron Ernst MD - 02/26/2024 12:23 AM PROFESSOR OF HISTORY Barron Ernst MD 02/26/2024 12:27 AM Central Line Insertion Date/Time: 02/26/2024 12:23 AM Performed by: Barron Ernst MD Authorized by: Barron Ernst MD [place] Protocol: RN Notified of Procedure: yes Informed [...] laying her back down throughout the procedure Barron Ernst MD IN CLINIC/BEDSIDE ORDERABLES Fi nal Result * [place] ARTL CATHJ/CANNULJ MNTR/TRANSFUSION SPX PRQ (02/26/2024 12:21 AM PROFESSOR OF HISTORY) Narrative Barron Ernst MD - 02/26/2024 12:21 AM PROFESSOR OF HISTORY Barron Ernst MD 02/26/2024 12:22 AM Arterial Line Insertion Date/Time: 02/26/2024 12:21 AM Performed by: Barron Ernst MD Authorized by: Barron Ernst MD [place] Protocol: RN Notified of Procedure: yes Informed [...] used: Yes Number of attempts: 1 Unsuccessful Barron Ernst MD IV THERAPY ORDERABLES Final Res ult * (ABNORMAL) Urinalysis reflex to microscopic and culture Urine (02/25/2024 10:54 PM PROFESSOR OF HISTORY) Color, ur Yellow Yellow Clarity, ur Turbid(A) Clear [facility] Specific gravity, ur 1.018 1.003 - 1.030 [facility] pH, urine 6.0 [facility] Comment: Interpretive Data U rine pH is affected by diet, medications, systemic acid-base disturbances, and renal tubular function. pH may affect urinary stone formation. For example, urine pH below 6.0 may help reduce the tendency for calcium phosphate stones and pH greater than 6.0 may reduce the tendency for uric acid stone formation. Source: [facility] Current Interpretive Data was last revised on 2017 Protein, ur ql 2+(A) Negative [facility] Glucose, ur ql Negative Negative [facility] Ketones, ur Negative Negative [facility] Bilirubin, ur Negative Negative [facility] Blood, ur 3+(A) Negative [facility] Urobilinogen, ur <2.0 <2.0 mg/dL [facility] Nitrite, ur Negative Negative [facility] Leukocyte esterase, ur 3+(A) Negative [facility] UA reflex comment Reflex to microscopic UA will be performed. [facility] Urine 02/25/2024 10:5 4 PM PROFESSOR OF HISTORY 02/25/2024 11:02 PM PROFESSOR OF HISTORY us Krysten Cohn MD LAB MICROBIOLOGY - NERAL ORDERABLES Final Result Performing Organization Address City/[facility] Co de Phone Number [facility] Department [place] [address] * (ABNORMAL) Urinalysis, microscopic only (02/25/2024 10:54 PM PROFESSOR OF HISTORY) WBC, ur >50(A) 0 - 5 /HPF RBC, ur >50(A) 0 - 2 /HPF [facility] Epithelial cells, squamous, ur 6-10(A) 0 - 5 /HPF [facility] Comment:Suggestive of contam ination. Consider recollection by clean catch. Bacteria, ur 1+(A) [facility] Mucous, ur Present(A) [facility] Culture Reflex Comment Reflex to urine culture will be performed. [facility] Urine 02/25/2024 10:5 4 PM PROFESSOR OF HISTORY 02/25/2024 11:08 PM PROFESSOR OF HISTORY us Krysten Cohn MD LAB URINE ORDERABLES Final Result Performing Organization Address [facility] Co de Phone Number [facility] [place] [address] * Urine culture Urine (02/25/2024 10:54 PM PROFESSOR OF HISTORY) Report Final Report: Less than 100,000 colonies/mL (clinically insignificant growth based on current clinical standards) Organism (CLINICALLY INSIGNIFICANT GROWTH [facility] Urine 02/25/2024 10:5 4 PM PROFESSOR OF HISTORY 02/26/2024 1:13 AM PROFESSOR OF HISTORY Narrative [facility] - 02/27/2024 7:56 AM PROFESSOR OF HISTORY Urine culture reflexed based upon urinalysis results. Testing performed by [facility] ([phone]) us Krysten Cohn MD LAB MICROBIOLOGY - GE NERAL ORDERABLES Final Result Performing Organization Address [facility] [place] [address] * (ABNORMAL) Blood gas, venous (02/25/2024 10:54 PM PROFESSOR OF HISTORY) pH, Venous 7.28(L) 7.32 - 7.43 PCO2, Venous 63(H) 40 - 50 mmHg [facility] PO2, Venous 58 mmHg [facility] Comment: Interpretive Data No Reference Range Established Current Interpretive Data was last revised on 2017. HCO3 Venous, Calculated 30 20 - 30 mmol/L [facility] BE, venous 2 mmol/L [facility] Comment: Interpretive Data No Reference Range Established Current Interpretive Data was last revised on 2017. Blood 02/25/2024 10:5 4 PM PROFESSOR OF HISTORY 02/25/2024 11:01 PM PROFESSOR OF HISTORY us Krysten Cohn MD LAB BLOOD ORDERABLES Final Result Performing Organization Address [facility]/ZIP Co de Phone Number [facility] [place] [address] * Critical Care (02/25/2024 7:45 PM PROFESSOR OF HISTORY) Narrative Gabriel Tsang MD - 02/25/2024 7:45 PM PROFESSOR OF HISTORY Gabriel Tsang MD 02/26/2024 9:09 PM Critical [...] plan with the ICU team and other medical/communications consultant staff, making frequent assessments and decisions [...] Troponin I high-sensitivity 6-hour (02/25/2024 7:37 PM PROFESSOR OF HISTORY) Trop I hs 73(H) <=17 ng/L Comment: Interpretive Data For further hscTnI resources including the diagnostic algorithm and an aid in interpretation, copy and paste this link: https://bjhlab.testcatalog.org/show/hsTrop-[email or web address] Current Interpretive Data last revised 2019. Trop I hs delta See Comment ng/L [facility] Comment:Inappropriate collec tion time to report a delta. Trop I hs pct delta See Comment % [facility] Comment:Inappropriate collec tion time to report a delta. Trop I hs interp See Comment AMDELE[facility] DEY Comment:Inappropriate collec tion time to report a delta. Blood 02/25/2024 7:37 PM PROFESSOR OF HISTORY 02/25/2024 8:02 PM PROFESSOR OF HISTORY us Andrez Moyer MD LAB BLOOD ORDERABLES Final Resul t Performing Organization Address [facility] de Phone Number [facility] [place] [address] * (ABNORMAL) eGFR (02/25/2024 7:37 PM PROFESSOR OF HISTORY) eGFR 15(L) >=60 mL/min/1. 73 m2 Comment: [...] last reviewed 2021. Blood 02/25/2024 7:37 PM PROFESSOR OF HISTORY 02/25/2024 7:52 PM PROFESSOR OF HISTORY us Krysten Cohn MD LAB BLOOD ORDERABLES Final Result Performing Organization Address [facility] de Phone Number [facility] [place] [address] * (ABNORMAL) Calcium, ionized (02/25/2024 7:37 PM PROFESSOR OF HISTORY) Calcium, Ionized 3.65(L) 4.50 - 5.10 mg/dL Blood 02/25/2024 7:37 PM PROFESSOR OF HISTORY 02/25/2024 7:52 PM PROFESSOR OF HISTORY us Andrez Moyer MD LAB BLOOD ORDERABLES Final Resul t Performing Organization Address [facility] de Phone Number [facility] Department [place] [address] * (ABNORMAL) Protime-INR (02/25/2024 7:37 PM PROFESSOR OF HISTORY) Pathologist [facility] PT 14.9(H) 9.7 - 13.0 sec INR 1.37(H) 0.90 - 1.20 [facility] Comment: Interpretive data Oral anticoagulant therapeutic ranges: Venous thromboembolism prophylaxis or treatment: 2.0-3.0 CARDIOLOGY Standard range: 2.0-3.0 High-intensity range: 2.5-3.5 Refer to indication-specific guidelines for appropriate target ranges for prosthetic heart valve replacement. Current interpretive data was last revised on 2019. Blood 02/25/2024 7:37 PM PROFESSOR OF HISTORY 02/25/2024 7:58 PM PROFESSOR OF HISTORY us Krysten Cohn MD LAB BLOOD ORDERABLES Final Result Performing Organization Address [facility] de Phone Number [facility] Department [place] [address] * (ABNORMAL) CBC without differential (02/25/2024 7:37 PM PROFESSOR OF HISTORY) Pathologist [facility] WBC 24.0(H) 3.8 - 9.9 K/cumm Hgb 8.7(L) 11.9 - 15.5 g/dL [facility] Hct 28.6(L) 35.6 - 45.5 % [facility] Plt 198 150 - 400 K/cumm [facility] MPV 10.0 9.1 - 12.3 fL [facility] RBC 2.55(L) 3.90 - 5.20 M/cumm [facility] MCV 112.2(H) 81.3 - 96.4 fL [facility] Comment:MCV delta due to savi gical procedure. MCH 34.1(H) 27.1 - 33.3 pg [facility] MCHC 30.4(L) 32.3 - 35.7 g/dL [facility] RDW CV 15.6(H) 11.1 - 14.9 % [facility] RDW SD 64.5(H) 35.7 - 48.1 fL [facility] NRBC abs 0.02(H) 0.00 - 0.01 K/cumm [facility] Blood 02/25/2024 7:37 PM PROFESSOR OF HISTORY 02/25/2024 8:02 PM PROFESSOR OF HISTORY Andrez Moyer MD LAB BLOOD ORDERABLES Final Resul t Performing Organization Address City/[facility] Co de Phone Number [facility] Department [place] [address] * (ABNORMAL) Phosphorus (02/25/2024 7:37 PM PROFESSOR OF HISTORY) Phosphorus, pl 7.3(H) 2.3 - 4.5 mg/dL Blood 02/25/2024 7:37 PM PROFESSOR OF HISTORY 02/25/2024 7:52 PM PROFESSOR OF HISTORY Andrez Moyer MD LAB BLOOD ORDERABLES Final Resul t Performing Organization Address [facility] de Phone Number [facility] Department [place] [address] * Magnesium (02/25/2024 7:37 PM PROFESSOR OF HISTORY) Magnesium 1.4 1.4 - 2.5 mg/dL Blood 02/25/2024 7:37 PM PROFESSOR OF HISTORY 02/25/2024 7:52 PM PROFESSOR OF HISTORY Andrez Moyer MD LAB BLOOD ORDERABLES Final Resul t Performing Organization Address [facility] de Phone Number [facility] Department [place] [address] * (ABNORMAL) Comprehensive metabolic panel (02/25/2024 7:37 PM PROFESSOR OF HISTORY) Sodium 137 135 - 145 mmol/L Potassium, pl 3.7 3.3 - 4.9 mmol/L [facility] Chloride 93(L) 97 - 110 mmol/L [facility] CO2 29 22 - 32 mmol/L [facility] Anion gap 15 2 - 15 mmol/L [facility] BUN 45(H) 6 - 25 mg/dL [facility] Creatinine 3.43(H) 0.60 - 1.10 mg/dL [facility] Glucose 100 70 - 199 mg/dL [facility] Comment: Interpretive Data Fasting glucose >/= 126 [...] 2022. Calcium 7.7(L) 8.5 - 10.3 mg/dL [facility] Bilirubin, total 0.6 0.1 - 1.2 mg/dL [facility] Protein, pl 6.0(L) 6.5 - 8.5 g/dL [facility] Albumin 2.6(L) 3.5 - 5.0 g/dL [facility] Alk phos 167(H) 40 - 130 Units/L [facility] ALT 15 7 - 45 Units/L [facility] AST 42 10 - 45 Units/L [facility] Blood 02/25/2024 7:37 PM PROFESSOR OF HISTORY 02/25/2024 7:52 PM PROFESSOR OF HISTORY us Krysten Cohn MD LAB BLOOD ORDERABLES Final Result [facility] One [facility] Department [place] [address] * (ABNORMAL) POC Blood Gas and Chemistries, Venous - (02/25/2024 7:17 PM PROFESSOR OF HISTORY) pH, Morris POC 7.26(L) 7.32 - 7.43 pCO2, morrsi POC 67(H) 40 - 50 mmHg [facility] pO2, morris POC 45 mmHg [facility] Na, POC 135 135 - 145 mmol/L [facility] K POC 3.6 3.3 - 4.9 mmol/L [facility] Comment: Interpretive Data Not all point of care methods assess for hemolysis. Confirm with instrument and retest K+ if not consistent with clinical signs and symptoms. Current Interpretive Data was last revised on 2023. Cl, POC 96(L) 97 - 110 mmol/L [facility] Ionized Ca, POC 3.94(L) 4.50 - 5.10 mg/dL [facility] Glucose, POC 102 70 - 199 mg/dL [facility] Lactate, POC 1.7 0.7 - 2.2 mmol/L [facility] O2 Sat, Morris POC (Angelica) 70 % [facility] Base excess, POC 2.1 mmol/L [facility] HCO3, Morris POC 30 20 - 30 mmol/L [facility] Hct, POC 28.0(L) 36.3 - 45.3 % [facility] Total Hb, POC 9.3(L) 11.9 - 15.5 g/dL [facility] Blood 02/25/2024 7:17 PM PROFESSOR OF HISTORY 02/25/2024 7:17 PM PROFESSOR OF HISTORY us Krysten Cohn MD LAB POCT ORDERABLES - DEVICE Final Result Performing Organization Address City/[facility]/ZIP Co de Phone Number [facility] One [facility] Department [place] [address] * POCT glucose (02/25/2024 5:28 PM PROFESSOR OF HISTORY) Glucose, POC 125 70 - 199 mg/dL Blood 02/25/2024 5:28 PM PROFESSOR OF HISTORY 02/25/2024 5:28 PM PROFESSOR OF HISTORY Krysten Cohn MD LAB POCT ORDERABLES - DEVICE Final Result Performing Organization Address City/State/[facility] Co de Phone Number [facility] [place] [address] * [place] INSJ NON-TUNNELED CENTRAL VENOUS CATH AGE 5 YR/> (02/25/2024 5:21 PM PROFESSOR OF HISTORY) Narrative Andrez Moyer MD - 02/25/2024 5:21 PM PROFESSOR OF HISTORY Cody Valera MD 02/25/2024 5:28 PM Central Line Insertion Date/Time: 02/25/2024 5:21 PM Performed by: Cody Valera MD Authorized by: Andrez Moyer MD [place] Protocol: RN Notified of Procedure: yes Informed [...] Troponin I high-sensitivity 2-hour (02/25/2024 4:43 PM PROFESSOR OF HISTORY) Trop I hs 72(H) <=17 ng/L Comment: Interpretive Data For further hscTnI resources including the diagnostic algorithm and an aid in interpretation, copy and paste this link: https://bjhlab.testcatalog.org/show/hsTrop-[email or web address] Current Interpretive Data last revised 2019. Trop I hs delta -8 ng/L [facility] Trop I hs interp Equivocal [facility] Blood 02/25/2024 4:43 PM PROFESSOR OF HISTORY 02/25/2024 5:27 PM PROFESSOR OF HISTORY Andrez Moyer MD LAB BLOOD ORDERABLES Final Resul t [facility] One [facility] [place] [address] * ECG 12 lead (02/25/2024 4:04 PM PROFESSOR OF HISTORY) Ventricular Rate EKG/Min 79 BPM [facility] Atrial Rate 79 BPM [facility] [place]-Interval (MSEC) 184 ms [facility] QRS-Interval (MSEC) 114 ms [facility] QT-Interval (MSEC) 408 ms [facility] QTc 467 ms [facility] P [place] 64 degrees [facility] R [place] 20 degrees [facility] T [place] 26 degrees [facility] Diagnosis Normal sinus rhythm Low voltage QRS Abnormal ECG When compared with ECG of 15-FEB-2024 08:38, No significant change was found Confirmed by LATHA HAAS M.D ([id number]) on 02/28/2024 12:24:07 PM [facility] 02/25/2024 4:04 PM PROFESSOR OF HISTORY 02/28/2024 12:24 PM PROFESSOR OF HISTORY us Andrez Moyer MD ECG ORDERABLES Final Result [facility] * POCT glucose (02/25/2024 3:07 PM PROFESSOR OF HISTORY) Glucose, POC 145 70 - 199 mg/dL Blood 02/25/2024 3:07 PM PROFESSOR OF HISTORY 02/25/2024 3:07 PM PROFESSOR OF HISTORY Krysten Cohn MD LAB POCT ORDERABLES - DEVICE Final Result Performing Organization Address City/[facility]/ZIP Co de Phone Number [facility] One [facility] [place] [address] * Critical Care (02/25/2024 3:02 PM PROFESSOR OF HISTORY) Narrative Andrez Moyer MD - 02/25/2024 3:02 PM PROFESSOR OF HISTORY Andrez Moyer MD 02/26/2024 6:59 AM Critical [...] plan with the ICU team and other medical/communications consultant staff, making frequent assessments and decisions [...] record Andrez Moyer MD IN CLINIC/BEDSIDE ORDERABLES Eddy natividad Result - Final * (ABNORMAL) Troponin I high-sensitivity series (baseline, 2hr, 4hr, 6hr) (02/25/2024 2:55 PM PROFESSOR OF HISTORY) [facility] Trop I hs 80(H) <=17 ng/L Comment: Interpretive Data For further hscTnI resources including the diagnostic algorithm and an aid in interpretation, copy and paste this link: [email or web address].testcatalog.org/show/[email or web address] Current Interpretive Data last revised 2019. Blood 02/25/2024 2:55 PM PROFESSOR OF HISTORY 02/25/2024 3:03 PM PROFESSOR OF HISTORY Andrez Moyer MD LAB BLOOD ORDERABLES Final Resul t [facility] One [facility] Department [place] [address] * Respiratory pathogen panel Nasopharyngeal (02/25/2024 2:55 PM PROFESSOR OF HISTORY) [facility] Influenza A RNA Not Detected Not Detected Influenza B RNA Not Detected Not Detected [facility] RSV RNA Not Detected Not Detected [facility] COVID-19 RNA Not Detected Not Detected [facility] Coronavirus 229E RNA Not Detected Not Detected [facility] Coronavirus HKU1 RNA Not Detected Not Detected [facility] Coronavirus NL63 RNA Not Detected Not Detected [facility] Coronavirus OC43 RNA Not Detected Not Detected [facility] Adenovirus DNA Not Detected Not Detected [facility] Metapneumovirus RNA Not Detected Not Detected [facility] Rhinovirus/Enterov irus RNA Not Detected Not Detected [facility] Parainfluenza 1 RNA Not Detected Not Detected [facility] Parainfluenza 2 RNA Not Detected Not Detected [facility] Parainfluenza 3 RNA Not Detected Not Detected [facility] Parainfluenza 4 RNA Not Detected Not Detected [facility] B. pertussis DNA Not Detected Not Detected [facility] B. parapertussis DNA Not Detected Not Detected [facility] C. pneumoniae DNA Not Detected Not Detected [facility] M. pneumoniae DNA Not Detected Not Detected [facility] Nasopharyngeal 02/25/2024 2: 55 PM PROFESSOR OF HISTORY 02/25/2024 3:03 PM PROFESSOR OF HISTORY Narrative [facility] - 02/25/2024 4:05 PM PROFESSOR OF HISTORY Is the Patient experiencing symptoms consistent with COVID?->Unknown Surveillance testing for transplant patient?->No Interpretive Data The Redeemr FilmArray Respiratory Panel (RP2.1) assay is a [...] assay has FDA clearance for testing of [employer] swabs. The performance of additional specimen types has been assessed by the performing laboratory. The performance characteristics of this assay have been determined by [facility] Molecular Infectious Disease Laboratory. Current interpretive data was last revised on 21. us Krysten Cohn MD LAB MICROBIOLOGY - VetCentricWY ORDERABLES Final Result [facility] One [facility] Department [place] [address] * [place] ARTL CATHJ/CANNULJ MNTR/TRANSFUSION SPX PRQ (02/25/2024 12:00 PM PROFESSOR OF HISTORY) Narrative Andrez Moyer MD - 02/25/2024 12:00 PM PROFESSOR OF HISTORY Andrez Moyer MD 02/26/2024 7:11 AM Arterial Line Insertion Date/Time: 02/25/2024 12:00 PM Performed by: Andrez Moyer MD Authorized by: Andrez Moyer MD [place] Protocol: RN Notified of Procedure: yes Informed [...] lt * POCT glucose (02/25/2024 11:06 AM PROFESSOR OF HISTORY) Pathologist [facility] Glucose, POC 130 70 - 199 mg/dL Blood 02/25/2024 11:0 6 AM PROFESSOR OF HISTORY 02/25/2024 11:06 AM PROFESSOR OF HISTORY Krysten Cohn MD LAB POCT ORDERABLES - DEVICE Final Result Performing Organization Address [facility] Co de Phone Number [facility] [place] [address] * Lactate (02/25/2024 11:05 AM PROFESSOR OF HISTORY) [facility] Lactate 1.7 0.7 - 2.0 mmol/L Blood 02/25/2024 11:0 5 AM PROFESSOR OF HISTORY 02/25/2024 11:16 AM PROFESSOR OF HISTORY Andrez Moyer MD LAB BLOOD ORDERABLES Final Resul t Performing Organization Address [facility] Co de Phone Number [facility] [place] [address] * (ABNORMAL) eGFR (02/25/2024 11:05 AM PROFESSOR OF HISTORY) Pathologist [facility] eGFR 17(L) >=60 mL/min/1. 73 m2 Comment: [...] reviewed 2021. Blood 02/25/2024 11:0 5 AM PROFESSOR OF HISTORY 02/25/2024 11:12 AM PROFESSOR OF HISTORY us Andrez Moyer MD LAB BLOOD ORDERABLES Final Resul t [facility] One [facility] Department [place] [address] * (ABNORMAL) Pro B-type natriuretic peptide (02/25/2024 11:05 AM PROFESSOR OF HISTORY) NT-proBNP 36,208(H) <=300 pg/mL Comment: Interpretive Comments: [...] et.al. Eur Heart J. 2006:27:330-337. 2. Caleb MCALLISTER, Rashel SAMPSON. J. AM Sierra Cardiol: Cardiovasc Imag. 2009;2: 216- 225. Interpretive Data Last Revised Date: 2017. Blood 02/25/2024 11:0 5 AM PROFESSOR OF HISTORY 02/25/2024 11:12 AM PROFESSOR OF HISTORY Result Mark Moyer MD LAB BLOOD ORDERABLES Final Resul t Performing Organization Address [facility] de Phone Number [facility] Department [place] [address] * (ABNORMAL) Thyroid Function [place] (02/25/2024 11:05 AM PROFESSOR OF HISTORY) TSH 4.96(H) 0.30 - 4.20 mcIUnit/mL Blood 02/25/2024 11:0 5 AM PROFESSOR OF HISTORY 02/25/2024 11:12 AM PROFESSOR OF HISTORY Result Mark Moyer MD LAB BLOOD ORDERABLES Final Resul t Performing Organization Address City/[facility] de Phone Number [facility] Department [place] [address] * (ABNORMAL) Calcium, ionized (02/25/2024 11:05 AM PROFESSOR OF HISTORY) Calcium, Ionized 3.49(L) 4.50 - 5.10 mg/dL Blood 02/25/2024 11:0 5 AM PROFESSOR OF HISTORY 02/25/2024 11:12 AM PROFESSOR OF HISTORY Result Mark Scalesh MD LAB BLOOD ORDERABLES Final Resul t [facility] Department [place] [address] * Beta-hydroxybutyrate (02/25/2024 11:05 AM PROFESSOR OF HISTORY) Beta-Hydroxybut yrate 0.4 0.0 - 0.5 mmol/L Blood 02/25/2024 11:0 5 AM PROFESSOR OF HISTORY 02/25/2024 11:12 AM PROFESSOR OF HISTORY Andrez Moyer MD LAB BLOOD ORDERABLES Edited Resu lt - Final Performing Organization Address City/[facility]/ZIP Co de Phone Number [facility] Department [place] [address] * Blood culture Blood (02/25/2024 11:05 AM PROFESSOR OF HISTORY) Report Final Report: No growth Blood 02/25/2024 11:0 5 AM PROFESSOR OF HISTORY 02/25/2024 11:22 AM PROFESSOR OF HISTORY Narrative [facility] - 02/29/2024 12:00 PM PROFESSOR OF HISTORY 1. Blood cultures are incubated for 4 [...] performance characteristics have been verified by the [facility] Microbiology Laboratory. For questions about this culture, contact the Microbiology Laboratory at [phone]. Interpretive data was last revised on 23. Andrez Moyer MD LAB MICROBIOLOGY - GENERAL ORDER DELFINA Final Result Performing Organization Address City/[facility]/ZIP Co de Phone Number [facility] Department [place] [address] * Blood culture Blood (02/25/2024 11:05 AM PROFESSOR OF HISTORY) Report Final Report: No growth Blood 02/25/2024 11:0 5 AM PROFESSOR OF HISTORY 02/25/2024 11:22 AM PROFESSOR OF HISTORY Narrative [facility] - 02/29/2024 12:00 PM PROFESSOR OF HISTORY 1. Blood cultures are incubated for 4 [...] performance characteristics have been verified by the [facility] Microbiology Laboratory. For questions about this culture, contact the Microbiology Laboratory at [phone]. Interpretive data was last revised on 23. Andrez Moyer MD LAB MICROBIOLOGY - GENERAL ORDER DELFINA Final Result Performing Organization Address City/[facility]/ZIP Co de Phone Number [facility] Department [place] [address] * (ABNORMAL) aPTT (02/25/2024 11:05 AM PROFESSOR OF HISTORY) aPTT 27(L) 28 - 38 sec Comment: Interpretive Data Heparin therapeutic range: 66.0 - 100.0 seconds. Range based on correlation with therapeutic heparin activity range of 0.3 - 0.7 Units/mL. Current interpretive data was last revised on 2022. Blood 02/25/2024 11:0 5 AM PROFESSOR OF HISTORY 02/25/2024 11:20 AM PROFESSOR OF HISTORY Andrez Moyer MD LAB BLOOD ORDERABLES Final Resul t Performing Organization Address [facility] [place] [address] * (ABNORMAL) Protime-INR (02/25/2024 11:05 AM PROFESSOR OF HISTORY) Pathologist [facility] PT 15.4(H) 9.7 - 13.0 sec INR 1.42(H) 0.90 - 1.20 [facility] Comment: Interpretive data Oral anticoagulant therapeutic ranges: Venous thromboembolism prophylaxis or treatment: 2.0-3.0 CARDIOLOGY Standard range: 2.0-3.0 High-intensity range: 2.5-3.5 Refer to indication-specific guidelines for appropriate target ranges for prosthetic heart valve replacement. Current interpretive data was last revised on 2019. Blood 02/25/2024 11:0 5 AM PROFESSOR OF HISTORY 02/25/2024 11:20 AM PROFESSOR OF HISTORY Andrez Moyer MD LAB BLOOD ORDERABLES Final Resul t Performing Organization Address [facility] [place] [address] * (ABNORMAL) CBC without differential (02/25/2024 11:05 AM PROFESSOR OF HISTORY) WBC 23.7(H) 3.8 - 9.9 K/cumm Hgb 8.8(L) 11.9 - 15.5 g/dL [facility] Hct 27.4(L) 35.6 - 45.5 % [facility] Plt 203 150 - 400 K/cumm [facility] MPV 9.8 9.1 - 12.3 fL [facility] RBC 2.56(L) 3.90 - 5.20 M/cumm [facility] MCV 107.0(H) 81.3 - 96.4 fL [facility] MCH 34.4(H) 27.1 - 33.3 pg [facility] MCHC 32.1(L) 32.3 - 35.7 g/dL [facility] RDW CV 15.7(H) 11.1 - 14.9 % [facility] RDW SD 60.9(H) 35.7 - 48.1 fL [facility] NRBC abs 0.03(H) 0.00 - 0.01 K/cumm [facility] Blood 02/25/2024 11:0 5 AM PROFESSOR OF HISTORY 02/25/2024 11:16 AM PROFESSOR OF HISTORY us Andrez Moyer MD LAB BLOOD ORDERABLES Final Resul t Performing Organization Address City/[facility]/ZIP Co de Phone Number [facility] [place] [address] * (ABNORMAL) T4, free (02/25/2024 11:05 AM PROFESSOR OF HISTORY) Free T4 0.78(L) 0.90 - 1.70 ng/dL Blood 02/25/2024 11:0 5 AM PROFESSOR OF HISTORY 02/25/2024 11:12 AM PROFESSOR OF HISTORY Narrative [facility] - 02/25/2024 12:22 PM PROFESSOR OF HISTORY This test was reflexed from a TSH result. us Andrez Moyer MD LAB BLOOD ORDERABLES Edited Resu lt - Final [facility] [place] [address] * (ABNORMAL) Phosphorus (02/25/2024 11:05 AM PROFESSOR OF HISTORY) Phosphorus, pl 6.5(H) 2.3 - 4.5 mg/dL Blood 02/25/2024 11:0 5 AM PROFESSOR OF HISTORY 02/25/2024 11:12 AM PROFESSOR OF HISTORY Andrez Moyer MD LAB BLOOD ORDERABLES Final Resul t Performing Organization Address [facility] [place] [address] * Magnesium (02/25/2024 11:05 AM PROFESSOR OF HISTORY) Pathologist [facility] Magnesium 1.4 1.4 - 2.5 mg/dL Blood 02/25/2024 11:0 5 AM PROFESSOR OF HISTORY 02/25/2024 11:12 AM PROFESSOR OF HISTORY us Andrez Moyer MD LAB BLOOD ORDERABLES Final Resul t Performing Organization Address [facility] [place] [address] * (ABNORMAL) Blood gas, arterial (02/25/2024 11:05 AM PROFESSOR OF HISTORY) Pathologist [facility] pH, Art 7.34(L) 7.35 - 7.45 PCO2, Arterial 53(H) 35 - 45 mmHg [facility] PO2, Arterial 138(H) 83 - 108 mmHg [facility] HCO3 Art (Calculated) 29 20 - 30 mmol/L [facility] BE, art 2 mmol/L [facility] Comment: Interpretive Data No Reference Range Established Current Interpretive Data was last revised on 2017 O2 Sat Art (Measured) 99(H) 90 - 95 % [facility] Blood 02/25/2024 11:0 5 AM PROFESSOR OF HISTORY 02/25/2024 11:11 AM PROFESSOR OF HISTORY us Amjad Comfort MD LAB BLOOD ORDERABLES Final Resul t [facility] One [facility] Department [place] [address] * (ABNORMAL) Lipid panel (02/25/2024 11:05 AM PROFESSOR OF HISTORY) Cholesterol 97 30 - 199 mg/dL Comment: [...] revised on 2017. Triglycerides 276(H) <=149 mg/dL [facility] Comment: Interpretive Data Ages < or [...] on 2017. HDL 26(L) >=40 mg/dL [facility] Comment: Interpretive Data Ages < or [...] 2017. LDL, calculated 29 <=129 mg/dL [facility] Comment: Interpretive Data Ages < or [...] revised on 2023. Non-HDL Cholesterol 71 mg/dL [facility] Comment: Interpretive Data Ages < or = [...] last revised on 2017. Chol/HDL ratio 4 [facility] Blood 02/25/2024 11:0 5 AM PROFESSOR OF HISTORY 02/25/2024 11:12 AM PROFESSOR OF HISTORY us Krysten Cohn MD LAB BLOOD ORDERABLES Final Result [facility] One [facility] Department [place] [address] * (ABNORMAL) Comprehensive metabolic panel (02/25/2024 11:05 AM PROFESSOR OF HISTORY) Sodium 132(L) 135 - 145 mmol/L Potassium, pl 3.5 3.3 - 4.9 mmol/L [facility] Chloride 89(L) 97 - 110 mmol/L [facility] CO2 27 22 - 32 mmol/L [facility] Anion gap 16(H) 2 - 15 mmol/L [facility] BUN 39(H) 6 - 25 mg/dL [facility] Creatinine 3.07(H) 0.60 - 1.10 mg/dL [facility] Glucose 117 70 - 199 mg/dL [facility] Comment: Interpretive Data Fasting glucose >/= 126 [...] 2022. Calcium 7.7(L) 8.5 - 10.3 mg/dL [facility] Bilirubin, total 0.6 0.1 - 1.2 mg/dL [facility] Protein, pl 5.8(L) 6.5 - 8.5 g/dL [facility] Albumin 2.8(L) 3.5 - 5.0 g/dL [facility] Alk phos 147(H) 40 - 130 Units/L [facility] ALT 16 7 - 45 Units/L [facility] AST 48(H) 10 - 45 Units/L [facility] Blood 02/25/2024 11:0 5 AM PROFESSOR OF HISTORY 02/25/2024 11:12 AM PROFESSOR OF HISTORY us Andrez Moyer MD LAB BLOOD ORDERABLES Final Resul t [facility] One [facility] Department [place] [address] * POCT glucose (02/25/2024 8:23 AM PROFESSOR OF HISTORY) Pathologist [facility] Glucose, POC 137 70 - 199 mg/dL Blood 02/25/2024 8:23 AM PROFESSOR OF HISTORY 02/25/2024 8:23 AM PROFESSOR OF HISTORY us Krysten Cohn MD LAB POCT ORDERABLES - DEVICE Final Result [facility] [place] [address] * (ABNORMAL) Arterial Blood gas w/Lactate POCT (02/25/2024 7:54 AM PROFESSOR OF HISTORY) [facility] Lactate POC i-STAT 1.6 0.7 - 2.2 mmol/L pH POC 7.29(L) 7.35 - 7.45 [facility] pCO2, Art POC 67(H) 35 - 45 mmHg [facility] PO2 POC 217(H) 80 - 105 mmHg [facility] CO2, total POC 34(H) 20 - 30 mmol/L [facility] HCO3, POC 32(H) 21 - 30 mmol/L [facility] BE POC 6(H) -2 - 3 mmol/L [facility] O2 sat POC 100(H) 95 - 98 % [facility] Blood 02/25/2024 7:54 AM PROFESSOR OF HISTORY 02/25/2024 7:54 AM PROFESSOR OF HISTORY us Krysten Cohn MD LAB BLOOD ORDERABLES Final Result [facility] [place] [address] * XR Chest 1 View (02/25/2024 7:34 AM PROFESSOR OF HISTORY) Anatomical Region Laterality Modality Body, Chest N/A Computed Radiogr aphy 02/25/2024 10:2 3 AM PROFESSOR OF HISTORY Impressions 02/25/2024 10:23 AM PROFESSOR OF HISTORY Comparison is made to chest radiograph of [...] Mini Wooten M.D. Narrative 02/25/2024 10:23 AM PROFESSOR OF HISTORY EXAMINATION: 1 view chest radiograph Procedure Note [...] Result * (ABNORMAL) eGFR (02/25/2024 4:49 AM PROFESSOR OF HISTORY) eGFR 18(L) >=60 mL/min/1. 73 m2 Comment: [...] last reviewed 2021. Blood 02/25/2024 4:49 AM PROFESSOR OF HISTORY 02/25/2024 5:39 AM PROFESSOR OF HISTORY Krysten Cohn MD LAB BLOOD ORDERABLES Final Result Performing Organization Address [facility] Co de Phone Number [facility] [place] [address] * (ABNORMAL) Hemoglobin and hematocrit (02/25/2024 4:49 AM PROFESSOR OF HISTORY) Hgb 9.2(L) 11.9 - 15.5 g/dL Hct 29.0(L) 35.6 - 45.5 % [facility] Blood 02/25/2024 4:49 AM PROFESSOR OF HISTORY 02/25/2024 5:39 AM PROFESSOR OF HISTORY Krysten Cohn MD LAB BLOOD ORDERABLES Final Result Performing Organization Address [facility] de Phone Number [facility] [place] [address] * (ABNORMAL) Basic metabolic panel (02/25/2024 4:49 AM PROFESSOR OF HISTORY) Sodium 136 135 - 145 mmol/L Potassium, pl 3.4 3.3 - 4.9 mmol/L [facility] Chloride 94(L) 97 - 110 mmol/L [facility] CO2 30 22 - 32 mmol/L [facility] Anion gap 12 2 - 15 mmol/L [facility] BUN 39(H) 6 - 25 mg/dL [facility] Creatinine 2.97(H) 0.60 - 1.10 mg/dL [facility] Glucose 105 70 - 199 mg/dL [facility] Comment: Interpretive Data Fasting glucose >/= 126 [...] 2022. Calcium 7.4(L) 8.5 - 10.3 mg/dL [facility] Blood 02/25/2024 4:49 AM PROFESSOR OF HISTORY 02/25/2024 5:39 AM PROFESSOR OF HISTORY us Krysten Cohn MD LAB BLOOD ORDERABLES Final Result [facility] One [facility] Department [place] [address] * (ABNORMAL) eGFR (02/24/2024 9:26 PM PROFESSOR OF HISTORY) eGFR 20(L) >=60 mL/min/1. 73 m2 Comment: [...] last reviewed 2021. Blood 02/24/2024 9:26 PM PROFESSOR OF HISTORY 02/24/2024 9:53 PM PROFESSOR OF HISTORY us Jovita Higuera MD LAB BLOOD ORDERABLES Final Result Performing Organization Address City/[facility] Co de Phone Number [facility] [place] [address] * (ABNORMAL) Hemoglobin and hematocrit (02/24/2024 9:26 PM PROFESSOR OF HISTORY) Hgb 9.1(L) 11.9 - 15.5 g/dL Hct 28.4(L) 35.6 - 45.5 % [facility] Blood 02/24/2024 9:26 PM PROFESSOR OF HISTORY 02/24/2024 9:55 PM PROFESSOR OF HISTORY Jovita Higuera MD LAB BLOOD ORDERABLES Final Result Performing Organization Address [facility] de Phone Number [facility] One [facility] Department [place] [address] * (ABNORMAL) Basic metabolic panel (02/24/2024 9:26 PM PROFESSOR OF HISTORY) [facility] Sodium 137 135 - 145 mmol/L Potassium, pl 3.5 3.3 - 4.9 mmol/L [facility] Chloride 95(L) 97 - 110 mmol/L [facility] CO2 29 22 - 32 mmol/L [facility] Anion gap 13 2 - 15 mmol/L [facility] BUN 34(H) 6 - 25 mg/dL [facility] Creatinine 2.67(H) 0.60 - 1.10 mg/dL [facility] Comment:Reviewed Glucose 128 70 - 199 mg/dL [facility] Comment: Interpretive Data Fasting glucose >/= 126 [...] 2022. Calcium 7.5(L) 8.5 - 10.3 mg/dL [facility] Blood 02/24/2024 9:26 PM PROFESSOR OF HISTORY 02/24/2024 9:53 PM PROFESSOR OF HISTORY us Jovita Higuera MD LAB BLOOD ORDERABLES Final Result Performing Organization Address [facility] de Phone Number [facility] [place] [address] * POCT glucose (02/24/2024 9:17 PM PROFESSOR OF HISTORY) Glucose, POC 152 70 - 199 mg/dL Blood 02/24/2024 9:17 PM PROFESSOR OF HISTORY 02/24/2024 9:17 PM PROFESSOR OF HISTORY us Krysten Cohn MD LAB POCT ORDERABLES - DEVICE Final Result Performing Organization Address [facility] de Phone Number [facility] [place] [address] * POCT glucose (02/24/2024 5:15 PM PROFESSOR OF HISTORY) Glucose, POC 148 70 - 199 mg/dL Blood 02/24/2024 5:15 PM PROFESSOR OF HISTORY 02/24/2024 5:15 PM PROFESSOR OF HISTORY us Krysten Cohn MD LAB POCT ORDERABLES - DEVICE Final Result Performing Organization Address [facility] de Phone Number [facility] [place] [address] * POCT glucose (02/24/2024 12:22 PM PROFESSOR OF HISTORY) Glucose, POC 148 70 - 199 mg/dL Blood 02/24/2024 12:2 2 PM PROFESSOR OF HISTORY 02/24/2024 12:22 PM PROFESSOR OF HISTORY us Krysten Cohn MD LAB POCT ORDERABLES - DEVICE Final Result Performing Organization Address [facility] de Phone Number [facility] Department [place] [address] * POCT glucose (02/24/2024 9:55 AM PROFESSOR OF HISTORY) Glucose, POC 145 70 - 199 mg/dL Blood 02/24/2024 9:55 AM PROFESSOR OF HISTORY 02/24/2024 9:55 AM PROFESSOR OF HISTORY us Krysten Cohn MD LAB POCT ORDERABLES - DEVICE Final Result Performing Organization Address [facility] de Phone Number MADELEINE [facility] [place] [address] * (ABNORMAL) eGFR (02/23/2024 11:18 PM PROFESSOR OF HISTORY) eGFR 47(L) >=60 mL/min/1. 73 m2 Comment: [...] reviewed 2021. Blood 02/23/2024 11:1 8 PM PROFESSOR OF HISTORY 02/23/2024 11:44 PM PROFESSOR OF HISTORY us Elder Garza III, MD LAB BLOOD ORDERABL ES Final Result Performing Organization Address [facility]/State/ZIP Co de Phone Number [facility] [place] [address] * (ABNORMAL) Hemoglobin and hematocrit (02/23/2024 11:18 PM PROFESSOR OF HISTORY) [facility] Hgb 9.7(L) 11.9 - 15.5 g/dL Hct 30.3(L) 35.6 - 45.5 % [facility] Blood 02/23/2024 11:1 8 PM PROFESSOR OF HISTORY 02/23/2024 11:46 PM PROFESSOR OF HISTORY Narrative [facility] - 02/23/2024 11:56 PM PROFESSOR OF HISTORY change to CBC when needed Elder Garza III, MD LAB BLOOD ORDERABL ES Final Result [facility] [place] [address] * (ABNORMAL) Basic metabolic panel (02/23/2024 11:18 PM PROFESSOR OF HISTORY) [facility] Sodium 139 135 - 145 mmol/L Potassium, pl 3.3 3.3 - 4.9 mmol/L [facility] Chloride 96(L) 97 - 110 mmol/L [facility] CO2 32 22 - 32 mmol/L [facility] Anion gap 11 2 - 15 mmol/L [facility] BUN 28(H) 6 - 25 mg/dL [facility] Creatinine 1.33(H) 0.60 - 1.10 mg/dL [facility] Glucose 188 70 - 199 mg/dL [facility] Comment: Interpretive Data Fasting glucose >/= 126 [...] 2022. Calcium 7.6(L) 8.5 - 10.3 mg/dL [facility] Blood 02/23/2024 11:1 8 PM PROFESSOR OF HISTORY 02/23/2024 11:44 PM PROFESSOR OF HISTORY Narrative [facility] - 02/24/2024 12:14 AM PROFESSOR OF HISTORY Daily Elder Garza III, MD LAB BLOOD ORDERABL ES Final Result Performing Organization Address [facility] Co de Phone Number [facility] Department [place] [address] * POCT glucose (02/23/2024 9:15 PM PROFESSOR OF HISTORY) Glucose, POC 135 70 - 199 mg/dL Blood 02/23/2024 9:15 PM PROFESSOR OF HISTORY 02/23/2024 9:15 PM PROFESSOR OF HISTORY us Krysten Cohn MD LAB POCT ORDERABLES - DEVICE Final Result Performing Organization Address [facility] de Phone Number [facility] [place] [address] * XR Shoulder Right 2+ View (02/23/2024 6:49 PM PROFESSOR OF HISTORY) Anatomical Region Laterality Modality Upper Extremities, Shoulder Right Comp uted Radiography 02/23/2024 7:19 PM PROFESSOR OF HISTORY Impressions 02/23/2024 7:19 PM PROFESSOR OF HISTORY 1. 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 Electronically signed by: Jeremy Martin MD, PHD Narrative 02/23/2024 7:19 PM PROFESSOR OF HISTORY EXAMINATION: Right shoulder 2+ views HISTORY: Right [...] signed by: Jeremy Martin MD, PHD us Elder Garza III, MD IMG XR PROCEDURES Final Result * [place] AN PROCEDURE PLACEHOLDER (02/23/2024 5:45 PM PROFESSOR OF HISTORY) Kellie Robertson CRNA - 02/23/2024 5:45 PM PROFESSOR OF HISTORY Kellie Black CRNA 02/23/2024 5:46 PM Peripheral [...] MD PhD ANESTHESIA ORDERABLES Final Result * [place] AN PROCEDURE PLACEHOLDER (02/23/2024 3:57 PM PROFESSOR OF HISTORY) Kellie Robertson CRNA - 02/23/2024 3:57 PM PROFESSOR OF HISTORY Kellie Black FOLDING MACHINE FEEDER 02/23/2024 3:57 PM Arterial Line Patient location: [...] MD PhD ANESTHESIA ORDERABLES Final Result * IL AN ELECTIVE ENDOTRACHEAL AIRWAY, [place] AN PROCEDURE PLACEHOLDER (02/23/2024 3:37 PM PROFESSOR OF HISTORY) Narrative Ben Pappas - 02/23/2024 3:37 PM PROFESSOR OF HISTORY Ben Pappas 02/23/2024 3:38 PM Airway Patient [...] MD PhD ANESTHESIA ORDERABLES Final Result * [place] AN PROCEDURE PLACEHOLDER (02/23/2024 2:49 PM PROFESSOR OF HISTORY) Tricia Lofton MD - 02/23/2024 2:49 PM PROFESSOR OF HISTORY Emile Monaoc MD 02/23/2024 2:49 PM Peripheral Block Patient [...] BW IP ANE LDA PERIPHERAL NERVE CATHETER, [place] AN PROCEDURE PLACEHOLDER (02/23/2024 2:45 PM PROFESSOR OF HISTORY) Narrative Tricia Fernandez MD - 02/23/2024 2:45 PM PROFESSOR OF HISTORY Emile Monaco MD 02/23/2024 2:49 PM Peripheral [...] esult * Check Sample (02/23/2024 12:52 PM PROFESSOR OF HISTORY) ABO Rh A Positive [facility] OTHER 02/23/2024 12:5 2 PM PROFESSOR OF HISTORY 02/23/2024 1:00 PM PROFESSOR OF HISTORY us Krysten Cohn MD LAB BLOOD ORDERABLES Final Result Performing Organization Address [facility] de Phone Number [facility] [place] [address] [facility] * TYPE AND SCREEN 14 DAY (02/15/2024 9:06 AM PROFESSOR OF HISTORY) Pathologist [facility] ABO Rh A Positive Sandra, indirect Negative [facility] Blood 02/15/2024 9:06 AM PROFESSOR OF HISTORY 02/15/2024 10:35 AM PROFESSOR OF HISTORY Narrative [facility] - 02/15/2024 11:35 AM PROFESSOR OF HISTORY Is this test being ordered in advance for a procedure?->Yes Expected date of procedure:->02/23/24 Has the patient been transfused in the past 3 months?->No Has the patient been in the past 3 months?->No us Marley Grover NP LAB BLOOD BANK TEST JM NEWELL Final Result Performing Organization Address City/[facility]/ZIP Co de Phone Number [facility] [place] [address] * eGFR (02/15/2024 9:06 AM PROFESSOR OF HISTORY) eGFR 87 >=60 mL/min/1. 73 m2 Comment: [...] last reviewed 2021. Blood 02/15/2024 9:06 AM PROFESSOR OF HISTORY 02/15/2024 10:09 AM PROFESSOR OF HISTORY us Krysten Cohn MD LAB BLOOD ORDERABLES Final Result [facility] [place] [address] * Vitamin D 25 hydroxy (02/15/2024 9:06 AM PROFESSOR OF HISTORY) Vitamin D 25-OH 47 30 - 80 ng/mL Blood 02/15/2024 9:06 AM PROFESSOR OF HISTORY 02/15/2024 10:09 AM PROFESSOR OF HISTORY Krysten Cohn MD LAB BLOOD ORDERABLES Final Result [facility] [place] [address] * (ABNORMAL) CBC without differential (02/15/2024 9:06 AM PROFESSOR OF HISTORY) WBC 5.8 3.8 - 9.9 K/cumm Hgb 12.8 11.9 - 15.5 g/dL [facility] Hct 39.4 35.6 - 45.5 % [facility] Plt 200 150 - 400 K/cumm [facility] MPV 9.2 9.1 - 12.3 fL [facility] RBC 3.69(L) 3.90 - 5.20 M/cumm [facility] MCV 106.8(H) 81.3 - 96.4 fL [facility] MCH 34.7(H) 27.1 - 33.3 pg [facility] MCHC 32.5 32.3 - 35.7 g/dL [facility] RDW CV 15.5(H) 11.1 - 14.9 % [facility] RDW SD 61.2(H) 35.7 - 48.1 fL [facility] NRBC abs 0.00 0.00 - 0.01 K/cumm [facility] Blood 02/15/2024 9:06 AM PROFESSOR OF HISTORY 02/15/2024 10:09 AM PROFESSOR OF HISTORY Marley Grover PARENTING SKILLS INSTRUCTOR LAB BLOOD ORDERABLES Fin al Result [facility] [place] [address] * (ABNORMAL) Comprehensive metabolic panel (02/15/2024 9:06 AM PROFESSOR OF HISTORY) Sodium 138 135 - 145 mmol/L Potassium, pl 3.8 3.3 - 4.9 mmol/L [facility] Chloride 93(L) 97 - 110 mmol/L [facility] CO2 34(H) 22 - 32 mmol/L [facility] Anion gap 11 2 - 15 mmol/L [facility] BUN 13 6 - 25 mg/dL [facility] Creatinine 0.80 0.60 - 1.10 mg/dL [facility] Glucose 105 70 - 199 mg/dL [facility] Comment: Interpretive Data Fasting glucose >/= 126 [...] 2022. Calcium 8.9 8.5 - 10.3 mg/dL [facility] Bilirubin, total 0.7 0.1 - 1.2 mg/dL [facility] Protein, pl 7.4 6.5 - 8.5 g/dL [facility] Albumin 3.7 3.5 - 5.0 g/dL [facility] Alk phos 221(H) 40 - 130 Units/L [facility] ALT 21 7 - 45 Units/L [facility] AST 49(H) 10 - 45 Units/L [facility] Blood 02/15/2024 9:06 AM PROFESSOR OF HISTORY 02/15/2024 10:09 AM PROFESSOR OF HISTORY Krysten Cohn MD LAB BLOOD ORDERABLES Final Result [facility] [place] [address] * ECG 12 lead (02/15/2024 8:38 AM PROFESSOR OF HISTORY) Ventricular Rate EKG/Min 80 BPM [facility] Atrial Rate 80 BPM [facility] IL-Interval (MSEC) 184 ms [facility] QRS-Interval (MSEC) 104 ms [facility] QT-Interval (MSEC) 414 ms [facility] QTc 477 ms [facility] P [place] 60 degrees [facility] R [place] 32 degrees [facility] T [place] 26 degrees [facility] Diagnosis Normal sinus rhythm Low voltage QRS Cannot rule out Anterior infarct , age undetermined Abnormal ECG When compared with ECG of 12-DEC-2020 11:35, no significant change Confirmed by KARI GONZALEZ M.D ([id number]) on 02/15/2024 12:09:38 PM [facility] 02/15/2024 8:38 AM PROFESSOR OF HISTORY 02/15/2024 12:09 PM PROFESSOR OF HISTORY us Marley Grover NP ECG ORDERABLES Final Re guyt [facility] * HM MAMMOGRAPHY (01/16/2021) us Shantanu Moon MD HEALTH MAINTENANCE Edited Re sult - Final from Last 3 Months or Most Recently Relevant to Health Maintenance Insurance [employer] [facility] [facility] H[employer]/PPO Address: [address] [address] [employer] [facility] H[employer]/PPO Address: [address] [place] [id number] [facility] H[employer]/PPO Address: [address] [address] [facility] H[employer]/PPO Address: [address] [address] M[employer] Advance Directives For more information, please contact: [phone] * Full Code (Latest Code Status on File) Date Activated Date Inactivated Comments 04/03/2024 2:40 AM 04/08/2024 9:34 PM * Full Code Date Activated Date Inactivated Comments 02/23/2024 8:30 PM 03/13/2024 12:40 AM * Full Code Date Activated Date Inactivated Comments 12/12/2020 4:04 PM 12/13/2020 10:24 PM Healthcare Agents on File Name Relationship Healthcare Agent [facility] Communication Roderick Branch Spouse Health Care Agent Grecia Torres First Alternate Health Care Agent Care Teams Regulatory Affairs Internship Relationship Specialty Start Date End Date Tiffany Edmond NP [address] [place] [address] PCP - General Internal Medicine 07/12/22
--- OUTSIDE RECORDS SUMMARY | 2024-05-08 08:37 | XMS_ITS | Encounter Summary ---
Author Organization [facility] Healthcare Address [address] [place] [address] Care Team Providers Care Inspector Casing Name Role Phone Tiffany Edmond GEOLOGICAL DRAFTER Primary Care Provider [phone] Reason for Visit * Reason Onset Date Comments Medical Question/Miscellaneous 04/17/2024 Encounter Details Date Type Department Care Team (Late st Contact Info) Description 04/17/2024 Telephone [facility] Medical Group Internal Medicine at [place] [address] [place] [address] Tiffany Edmond NP [address] [place] [address] Medical Question/Miscellaneous Social History Tobacco Use Types Packs/Day Years Used Date Smoking Tobacco: Former Cigarettes 0 07/14/2004 - 03/21/2015 Smokeless Tobacco: Never Alcohol Use Standard Drinks/Week Comments Not Currently 0 (1 standard drink = 0.6 oz pur e alcohol) [facility] Utilities Answer Date Recorded In the [...] often do you attend chur ch or episcopal services? Never 04/03/2024 Do you belong to any clubs o r organizations such as bahai groups, unions, fraternal or athletic groups, or [...] any time in the past 12 m [facility], were you homeless or living in a jail (including now)? No 04/03/2024 Personal Safety Answer Date Recorded Have you ever been in or are you currently in a harmful physical or emotional relationship or is someone making you feel afraid or unsafe? Denies 04/03/2024 Comments No Sex and Gender Information Value Date Recorded Sex Assigned at Not on file Legal Sex Female 4:51 AM CHIP BIN CONVEYOR TENDER Gender Identity Female 10/09/2020 9:44 AM CDT Sexual Orientation Straight 07/19/2020 12 :16 PM CDT Occupation Industry Job Start Date Job End Date [employer] Not on file Not on file Not on file documented as of this encounter Miscellaneous Notes * Telephone Encounter - Marilyn Hernandez MA - 04/18/2024 9:04 AM CST Orders given per Tiffany Edmond NP BIN CONVEYOR TENDER * Telephone Encounter - Tiffany Edmond NP - 04/17/2024 1:58 PM CST Okay for OT order for [facility]IVNA BIN CONVEYOR TENDER * Telephone Encounter - Mckenzie Alicea - 04/17/2024 12:55 PM CST Medical Question/Miscellaneous Caller???s Concern: Patient called stating [facility] came out today, but told her they need an order for OT since they don't have one for that. Please advise. Does message need to be routed? Yes-Action Needed BIN CONVEYOR TENDER documented in this encounter Plan of Treatment Not on file documented as of this encounter Visit Diagnoses Not on filedocumented in this encounter Care Teams Inspector Casing Relationship Specialty Start Date End Date Tiffany Edmond NP [address] [place] [address] PCP - General Internal Medicine 07/12/22 documented as of this encounter
--- OUTSIDE RECORDS SUMMARY | 2024-05-08 08:37 | XMS_ITS | Encounter Summary ---
Author Organization [facility] Healthcare Address [address] [place] [address] Care Team Providers Care Product Analyst Name Role Phone Tiffany Edmond DIE MAKER APPRENTICE Primary Care Provider [phone] Reason for Visit * Reason Onset Date Comments Additional Services Or Orders 04/18/2024 Encounter Details Date Type Department Care Team (Late st Contact Info) Description 04/18/2024 Telephone [facility] Medical Group Internal Medicine at [place] [address] [place] [address] Tiffany Edmond DIE MAKER APPRENTICE [address] [place] [address] Additional Services Or Orders Social History Tobacco Use Types Packs/Day Years Used Date Smoking Tobacco: Former Cigarettes 0 07/14/2004 - 03/21/2015 Smokeless Tobacco: Never Alcohol Use Standard Drinks/Week Comments Not Currently 0 (1 standard drink = 0.6 oz pur e alcohol) [facility] Utilities Answer Date Recorded In [...] often do you attend chur ch or scientology services? Never 04/03/2024 Do you belong to any clubs o r organizations such as moravian groups, unions, fraternal or athletic groups, or [...] in the past 12 m [facility], were you homeless or living in a [place] facility (including now)? No 04/03/2024 Personal Safety Answer Date Recorded Have you ever been in or are you currently in a harmful physical or emotional relationship or is someone making you feel afraid or unsafe? Denies 04/03/2024 Comments No Sex and Gender Information Value Date Recorded Sex Assigned at Not on file Legal Sex Female 4:51 AM RN PRACTITIONER Gender Identity Female 10/09/2020 9:44 AM CDT Sexual Orientation Straight 07/19/2020 12 :16 PM CDT Occupation Industry Job Start Date Job End Date [employer] Not on file Not on file Not on file documented as of this encounter Miscellaneous Notes * Telephone Encounter - Marilyn Hernandez MA - 04/29/2024 11:16 AM CST Patient notified PRACTITIONER * Telephone Encounter - Tiffany Edmond NP - 04/29/2024 8:34 AM CST Letter uploaded. Unable to change date but included seen on 04/23 with return to work 05/13 PRACTITIONER * Telephone Encounter - Marilyn Hernandez MA - 04/26/2024 3:26 PM CST Called patient message left to call office. PRACTITIONER * Telephone Encounter - Danielle Oconnor - 04/26/2024 3:08 PM CST Medical Question/Miscellaneous Caller???s Concern: Please call Patient and let her know the status of her letter. Patient would like it in her MyChart. Does message need to be routed? Yes-Action Needed PRACTITIONER * Telephone Encounter - Sary Matias - 04/25/2024 11:20 AM CST Call Back Caller???s Concern: Patient called to see if the letter was done. PRODUCT DEMONSTRATOR noticed notes from JYOTI Allen asking: When does she plan to return? How far out should I put the letter for? Patient states that she plans to return to work the week of 05/13/24. Does message need to be routed? Yes-Action Needed PRACTITIONER * Telephone Encounter - Nivia Palma - 04/24/2024 10:36 AM CST Medical Question/Miscellaneous Caller???s Concern: called back and was asking for the letter just to state that she was seeing theprovider for her right shoulder and the left leg wound. She needs it dated from . She doesn'tneed a end date or return to work. Please advise and put on [employer] once done. Does message need to be routed? Yes-Action Needed PRACTITIONER * Telephone Encounter - Tiffany Edmond NP - 04/24/2024 9:18 AM CST When does she plan to return? How far out should I put the letter for? PRACTITIONER * Telephone Encounter - Grace Marroquin - 04/23/2024 1:36 PM CST Call Back Caller???s Concern: Andriy is requesting work letter (excusing her from work) indicating she is still under doctor's care for right shoulder & left leg wounds. Requesting letter to be uploaded via [employer] as well as a phone call to confirm once done. Ok to [facility]. Does message need to be routed? Yes-Action Needed PRACTITIONER * Telephone Encounter - Caitie Brand - 04/18/2024 3:00 PM CST Medical Question/Miscellaneous Caller???s Concern: Sangita, clinical director at [facility], calling to request PT order for right shoulder. Upon reviewing patient's chart, Sangita discovered patient had right should replacement with Ortho in February. Will be calling ortho for orders. No further assistance needed at this time. Does message need to be routed? No PRACTITIONER documented in this encounter Plan of Treatment Not on file documented as of this encounter Visit Diagnoses Not on filedocumented in this encounter Care Teams Product Analyst Relationship Specialty Start Date End Date Tiffany Edmond NP [address] [place] [address] PCP - General Internal Medicine 07/12/22 documented as of this encounter
--- OUTSIDE RECORDS SUMMARY | 2024-05-08 08:37 | XMS_ITS | Encounter Summary ---
Author Organization [facility] Healthcare Address [address] [place] [address] Care Team Providers Care Selvage Machine Operator Name Role Phone Tiffany Edmond NP Primary Care Provider [phone] Reason for Referral * Cardiology (Routine) - Authorized Specialty Diagnoses / Procedures Referred By Contac t Referred To Contact Diagnoses Prolonged QT interval Procedures ECG 12 lead Karie Rodríguez MD [address] [place] [address] Phone: tel: fax: [facility] Medical Group Referral ID Status Reason Start Date Expiration Date V isits Requested Visits Authorized [id number] Authorized 05/07/2024 06/06/2025 1 1 TRANSFER OPERATOR Encounter Details Date Type Department Care Team (Late st Contact Info) Description 05/07/2024 Orders Only [facility] Medical Group Cardiology [address] [place] [address] Kellie Swenson MA Prolonged QT interval (Primary Dx) Social History Tobacco Use Types Packs/Day Years Used Date Smoking Tobacco: Former Cigarettes 0 07/14/2004 - 03/21/2015 Smokeless Tobacco: Never Alcohol Use Standard Drinks/Week Comments Not Currently 0 (1 standard drink = 0.6 oz pur e alcohol) [facility] Utilities Answer Date Recorded In the [...] often do you attend chur ch or amish services? Never 04/03/2024 Do you belong to any clubs o r organizations such as restoration groups, unions, fraternal or athletic groups, or [...] any time in the past 12 m [facility], were you homeless or living in a [...] on file Legal Sex Female 4:51 AM GAS TRANSFER OPERATOR Gender Identity Female 10/09/2020 9:44 AM CDT Sexual Orientation Straight 07/19/2020 12 :16 PM CDT Occupation Industry Job Start Date Job End Date [employer] Not on file Not on file Not on file documented as of this encounter Ordered Prescriptions Prescription Sig Dispense Quantity Refills Last Filled Start Date End Date magnesium oxide (MAG-OX) 400 mg (241.3 mg elemental magnesium) tabletIndications:h ypomagnesemia Take 1 tablet (400 mg total) by mouth 2 (two) times a day 60 tablet 5 05/07/2024 documented in this encounter Progress Notes * Kellie Swenson MA - 05/07/2024 1:29 PM CST Magnesium sent to pharmacy and EKG order placed per JF TRANSFER OPERATOR documented in this encounter Plan of Treatment Scheduled Orders Name Type Priority Associated Diagnoses Orde r Schedule ECG 12 lead ECG Routine Prolonged QT interval Expected: 05/17/2024, Expires: 05/07/2025 documented as of this encounter Visit Diagnoses Diagnosis Prolonged QT interval- Primary Nonspecific abnormal electrocardiogram (ECG) (EKG) documented in this encounter Discontinued Medications Medication Sig Discontinue Reason Start Date End Da te magnesium oxide (MAG-OX) 400 mg (241.3 mg elemental magnesium) tabletIndications:hypoma gnesemia Take 1 tablet (400 mg total) by mouth 2 (two) times a day Other 04/08/2024 05/07/2024 documented as of this encounter Care Teams Selvage Machine Operator Relationship Specialty Start Date End Date Tiffany Edmond NP [address] [place] [address] PCP - General Internal Medicine 07/12/22 documented as of this encounter
--- OUTSIDE RECORDS SUMMARY | 2024-05-08 08:37 | XMS_ITS | Encounter Summary ---
Author Organization [facility] Healthcare Address [address] [place] [address] Care Team Providers Care Human Relations Professor Name Role Phone Tiffany Edmond NP Primary Care Provider [phone] Reason for Visit * Reason Onset Date Comments Lab Results 05/07/2024 Encounter Details Date Type Department Care Team (Late st Contact Info) Description 05/07/2024 Telephone [facility] Medical [facility] Cardiology [address] [place] [address] Karie Rodríguez MD [address] [place] [id number] Lab Results Social History Tobacco Use Types Packs/Day Years Used Date Smoking Tobacco: Former Cigarettes 0 07/14/2004 - 03/21/2015 Smokeless Tobacco: Never Alcohol Use Standard Drinks/Week Comments Not Currently 0 (1 standard drink = 0.6 oz pur e alcohol) [facility] Utilities Answer Date Recorded In the [...] often do you attend chur ch or caodaism services? Never 04/03/2024 Do you belong to any clubs o r organizations such as congregational groups, unions, fraternal or athletic groups, or [...] any time in the past 12 m [facility], were you homeless or living in a mcc (including now)? No 04/03/2024 Personal Safety Answer Date Recorded Have you ever been in or are you currently in a harmful physical or emotional relationship or is someone making you feel afraid or unsafe? Denies 04/03/2024 Comments No Sex and Gender Information Value Date Recorded Sex Assigned at Not on file Legal Sex Female 4:51 AM DIRECTOR OF LABORATORY OPERATIONS Gender Identity Female 10/09/2020 9:44 AM CDT Sexual Orientation Straight 07/19/2020 12 :16 PM CDT Occupation Industry Job Start Date Job End Date [employer] Not on file Not on file Not on file documented as of this encounter Miscellaneous Notes * Telephone Encounter - Kellie Swenson MA - 05/07/2024 2:51 PM CST Thank you CTOR OF LABORATORY OPERATIONS * Telephone Encounter - Coreen Falk - 05/07/2024 2:33 PM CST Pt returning call. Relayed the below message per JF. Patient confirmed understanding. Got patient scheduled for the EKG on 05/20 at [facility]. Thank you. Contact [phone] CTOR OF LABORATORY OPERATIONS CTOR OF LABORATORY OPERATIONS * Telephone Encounter - Kellie Swenson MA - 05/07/2024 1:27 PM CST Please let patient know that the magnesium on the low side. Recommend to prescribe magnesium oxide 400 mg b.i.d. have her come for an EKG check 10 days after that to check for the QTC interval. Thanks ----- Message ----- From: Kellie Swenson MA Sent: 05/06/2024 2:01 PM DIRECTOR OF LABORATORY OPERATIONS To: Karie Rodríguez MD Subject: Edit The scan below was edited by Kellie Swenson MA on 05/06/2024 at 14:01; it is attached to the following: the 04/29/2024 SCAN - LABS [[id number]] Left msg asking pt to call office CTOR OF LABORATORY OPERATIONS documented in this encounter Plan of Treatment Not on file documented as of this encounter Visit Diagnoses Not on filedocumented in this encounter Care Teams Human Relations Professor Relationship Specialty Start Date End Date Tiffany Edmond NP [address] [facility] [address] [place] [address] PCP - General Internal Medicine 07/12/22 documented as of this encounter
--- OUTSIDE RECORDS SUMMARY | 2024-05-08 08:37 | XMS_ITS | Encounter Summary ---
Author Organization [facility] Healthcare Address [address] [place] [address] Care Team Providers Care Supervisor Heavy Equipment Name Role Phone Tiffany Edmond ENGRAVING PLATE MAKER Primary Care Provider [phone] Reason for Visit * Reason Comments Follow-up Wanting to return to work Encounter Details Date Type Department Care Team (Late st Contact Info) Description 05/07/2024 9:30 AM ENLISTED ADVISOR Office Visit [facility] Internal Medicine at [place] [address] [place] [address] Tiffany Edmond ENGRAVING PLATE MAKER [address] [place] [address] Physical exam, annual (Primary Dx); Knee ulcer due to DM (HCC); Class 3 severe obesity due to excess calories with serious comorbidity and body mass index (BMI) of 60.0 to 69.9 in adult (HCC) Social History Tobacco Use Types Packs/Day Years Used Date Smoking Tobacco: Former Cigarettes 0 07/14/2004 - 03/21/2015 Smokeless Tobacco: Never Alcohol Use Standard Drinks/Week Comments Not Currently 0 (1 standard drink = 0.6 oz pur e alcohol) [facility] Utilities Answer Date Recorded In the past 12 months has [employer], gas, oil, or water [employer] threatened to shut off services in your [...] often do you attend chur ch or gnosticist services? Never 04/03/2024 Do you belong to any clubs o r organizations such as zoroastrianism groups, unions, fraternal or athletic groups, or [...] any time in the past 12 m [place], were you homeless or living in a care home (including now)? No 04/03/2024 Personal Safety Answer Date Recorded Have you ever been in or are you currently in a harmful physical or emotional relationship or is someone making you feel afraid or unsafe? Denies 04/03/2024 Comments No Sex and Gender Information Value Date Recorded Sex Assigned at Not on file Legal Sex Female 4:51 AM ENLISTED ADVISOR Gender Identity Female 10/09/2020 9:44 AM CDT Sexual Orientation Straight 07/19/2020 12 :16 PM CDT Occupation Industry Job Start Date Job End Date [employer] Not on file Not on file Not on file documented as of this encounter Last Filed Vital Signs Vital Sign Reading Time Taken Comments Blood Pressure 134/86 05/07/2024 9:27 AM ENLISTED ADVISOR Pulse 83 05/07/2024 9:27 AM ENLISTED ADVISOR Temperature 36.6 C (97.9 F) 05/07/2024 9:27 AM ENLISTED ADVISOR Respiratory Rate - - Oxygen Saturation 96% 05/07/2024 9:27 AM ENLISTED ADVISOR Inhaled Oxygen Concentration - - Weight 154.2 kg (340 lb) 05/07/2024 9:27 AM ENLISTED ADVISOR Height 160 cm (5' 3 ) 05/07/2024 9:27 AM ENLISTED ADVISOR Body Mass Index 60.23 05/07/2024 9:27 AM ENLISTED ADVISOR documented in this encounter Patient Instructions * Patient Instructions* Tiffany Edmond NP - 05/07/2024 9:30 AM ENLISTED ADVISOR Routine annual physical completed today. Awaiting mammogram until shoulder heals further. Patient ready to return back to work on the 14 of May for 18-20 hours per week. She has filed for disability. Follow-up in 2 months or sooner as needed STED ADVISOR documented in this encounter Progress Notes * Tiffany Edmond, ENGRAVING PLATE MAKER - 05/07/2024 9:30 AM CST Images from the original note were not included. Subjective/Objective Patient ID: Nolvia Sanches is a 54 y.o. female. Visit Date: 05/07/2024 Chief Complaint Follow-up (Wanting to return to work) HPI 54-year-old female in for annual wellness exam. Recent lab work completed. Triglycerides over 400. Patient states she will work on diet and exercise. Does have an ulcer to the left knee x2. Wound VAChas been discontinued. Doing dressing changes every other day. Patient ready to return back to [id number] hours per week. She has filed for disability. Review of Systems Constitutional: Negative for activity change, chills and fatigue. HENT: Negative for congestion, ear pain, nosebleeds, rhinorrhea and sinus pressure. Respiratory: Negative for cough and shortness of breath. Cardiovascular: Negative for chest pain and palpitations. Gastrointestinal: Negative for abdominal pain. Endocrine: Negative for cold intolerance. Genitourinary: Negative for difficulty urinating and hematuria. Musculoskeletal: Negative for back pain and myalgias. Skin: Positive for wound (Left anterior knee and left medial knee wound. Dressings intact. Wound VAC removed). Neurological: Negative for dizziness, weakness and headaches. Psychiatric/Behavioral: Negative for agitation, confusion and sleep disturbance. Physical Exam Constitutional: Appearance: Normal appearance. She is well-developed. She is obese. HENT: Head: Normocephalic and atraumatic. Right Ear: Tympanic membrane normal. Left Ear: Tympanic membrane normal. Nose: Nose normal. Mouth/Throat: Mouth: Mucous membranes are moist. Eyes: Pupils: Pupils are equal, round, and reactive to light. Cardiovascular: Rate and Rhythm: Normal rate and regular rhythm. Heart sounds: Normal heart sounds. Pulmonary: Effort: Pulmonary effort is normal. Breath sounds: Normal breath sounds. Abdominal: General: Bowel sounds are normal. There is no distension. Palpations: Abdomen is soft. Musculoskeletal: General: No tenderness. Normal range of motion. Cervical back: Normal range of motion and neck supple. Skin: General: Skin is warm and dry. Capillary Refill: Capillary refill takes less than 2 seconds. Findings: No rash. Comments: Left anterior knee and left medial knee wounds with dressings intact. Wound VAC discontinued Neurological: Mental Status: She is alert and oriented to person, place, and time. Psychiatric: Behavior: Behavior normal. Thought Content: Thought content normal. Assessment/Plan Diagnoses and all orders for this visit: Physical exam, annual (Z00.00) (Primary) Comments: Routine annual physical completed today. Follow-up in 2 months or sooner as needed Knee ulcer due to DM ([facility]) (E11.622, L97.909) Comments: Patient may return back to work as wound VAC has been discontinued. Continue to do dressing changesevery other day. Follow with wound management Class 3 severe obesity due to excess calories with serious comorbidity and body mass index (BMI) of60.0 to 69.9 in adult ([facility]) (E66.813, E66.01, Z68.44) Comments: Diet and exercise on a regular basis as tolerated STED ADVISOR documented in this encounter Miscellaneous Notes * Assessment & Plan Note - Marilyn Hernandez MA - 05/07/2024 9:30 AM ENLISTED ADVISOR Associated Problem(s): BMI 60.0-69.9, adult ([facility]) Discussed the patient's BMI. The BMI is above average. BMI management plan is completed. BMI Follow-up includes: nutrition counseling, exercise counseling and education provided. STED ADVISOR documented in this encounter Plan of Treatment Not on file documented as of this encounter Visit Diagnoses Diagnosis Physical exam, annual- Primary Knee ulcer due to DM ([facility]) Type II or unspecified type diabetes mellitus with other specified manifestations, not stated as uncontrolled Class 3 severe obesity due to excess calories with serious comorbidity and body mass index (BMI) of 60.0 to 69.9 in adult ([facility]) documented in this encounter Care Teams Supervisor Heavy Equipment Relationship Specialty Start Date End Date Tiffany Edmond NP [address] [facility] [address] [place] [address] PCP - General Internal Medicine 07/12/22 documented as of this encounter
== END 2024-05-08 08:21 | disposition home or self-care (01) ==
PROVIDERS: PCP Nurse Practitioner Family; Visit Provider Internal Medicine Cardiovascular Disease
DX: I50.42 Chronic combined systolic (congestive) and diastolic (congestive) heart failure (principal)
CPT/HCPCS: 78452; 93017; A9502; J2785

== ENCOUNTER 2024-11-21 11:27 | Emergency (ER) | payer MEDICAID, SELFPAY ==
[2024-11-21 11:32] VITALS: BP 149/72; PULSE 85; RESP 20; TEMP 36.9; O2SAT 95
--- NOTE | 2024-11-21 11:49 | ED_ITS ---
HPI - Epistaxis General Chief complaint: Epistaxis Stated complaint: Nose Bleed Time Seen by Provider: 11/21/24 11:29 Source: patient Mode of arrival: ambulatory Limitations: no limitations History of Present Illness HPI Narrative: Patient is a 54-year-old female who presents with nosebleed. Patient states initially started at 9:00 a.m., stopped and then returned. Patient was sent home from work after 2nd nosebleed. Bleeding is currently controlled. Patient takes a daily aspirin. Denies any trauma to nose. Patient does have hypertension but does states she took her medicine this morning. Patient has hi story of nose bleeds but has not had 1 since 2019. Related Data Home Medications ?Medication ?Instructions ?Recorded ?Confirmed ?Last Taken ?Type furosemide 40 mg tablet 60 mg PO DAILY 11/28/1901/0402/16/23 History venlafaxine 75 mg capsule,extended 150 mg PO DAILY 01/17/24 01/17/24 History release 24 hr alprazolam 0.5 mg tablet 0.5 mg PO HS PRN Sleep 07/0501/16/24 02/15/23 History cholecalciferol (vitamin D3) 1,250 1,250 mcg PO WEEKLY 07/05/22 01/16/24 02/16/23 History mcg (50,000 unit) capsule metoprolol tartrate 50 mg tablet 50 mg PO BID 07/05/22 01/17/24 01/17/24 History potassium chloride 20 mEq 20 meq PO DAILY 07/05/2202/2602/16/23 History tablet,extended release(part/cryst) trazodone 50 mg tablet 50 mg PO HS PRN Sleep 01/16/24 02/15/23 History aspirin 81 mg capsule 81 mg PO DAILY 02/17/2301/0402/16/23 History oxybutynin chloride 5 mg tablet 5 mg PO BID 02/17/2303/17/23 02/15/23 History gabapentin 300 mg capsule 300 mg PO TID 09/05/2301/1601/17/24 History multivitamin 1 tablet PO DAILY 01/16/24 1 03/17/23 Unknown History vitamin B complex 1 tablet PO DAILY 01/16/24 1 03/17/23 Unknown History Allergies Allergy/AdvReac Type Severity Reaction Status Date / Time Penicillins Allergy Unknown Anaphylaxis Verified 11/21/24 11:30 poppyseed oil Allergy Unknown Swelling Verified 11/21/24 11:30 of Lip/Tongue/Throat cephalexin (From Keflex) Allergy Unknown Verified 11/21/24 11:30 Review of Systems Review of Systems: All systems reviewed & are unremarkable except as noted in HPI and below Constitutional: Constitutional: Denies body ache(s), Denies chills, Denies fatigue, Denies fever(s), Denies headache(s), Denies malaise and Denies weakness Eyes: Eyes: Denies blurry vision, Denies irritation and Denies loss of vision ENT: Denies otalgia, Denies headache(s), Reports epistaxis, Denies nasal discharge, Denies sinus pain and Denies sore throat Cardiovascular: Cardiovascular: Denies chest pain, Denies irregular heart rhythm and Denies dyspnea Respiratory: Respiratory: Denies dyspnea Gastrointestinal: Gastrointestinal: Denies abdominal pain, Denies melena, Denies hematochezia, Denies diarrhea, Denies nausea and Denies vomiting Musculoskeletal: Musculoskeletal: Denies back pain, Denies myalgias and Denies arthralgias Integumentary/Breasts: Skin/Breast: Denies pruritus and Denies rash Neurologic: Denies headache(s), Denies loss of vision and Denies weakness Psychiatric: Psychiatric: Reports no additional psychiatric complaints Endocrine: Endocrine: Denies fatigue PMFSH Past Medical History Medical History Urge urinary incontinence Peripheral neuropathy Morbid obesity with BMI of 60.0-69.9, adult Alcoholism Migraine Anxiety Hypertension Surgical History Surgical History History of hand surgery left hand tendon surgery H/O breast surgery 05/04/23 hematoma removed History of surgery on left wrist ORIF Left wrist- 02/18/23 Normal colonoscopy (~2019) Delivery by section History of gastric bypass (~2016) Family History Family History Other Alcoholism Family history of arthritis Family history of mental disorder Hypertension Social History Social History (Reviewed 11/21/24 @ 11:53 by DANIKA Lambert Social History: She has been for 25 years. She has 1 son who is in his 30s. 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 Smoking packs per day: 1 Smoking cigarettes per day: 20.0 Years smoked: 20 Smoking pack-years: 20.00 Smoking status: Never smoker Tobacco type: cigarettes Smoking end date: 03/17/23 Alcohol intake: former Drinks per week: 3 Alcohol use details: Quit 02/16/23. Substance use: never Substance use type: does not use Current Housing: Decline to Answer Concerned About Future Housing: Decline to Answer Difficulty Paying Gas/Electric Bills: Decline to Answer Difficulty Paying for Meds: Decline to Answer Currently Unemployed: Decline to Answer Education: Decline to Answer Difficulty w/ Childcare or Family Care: Decline to Answer Living arrangements: with family Occupation/Education: occupation Additional occupation/education comments: [employer] Gender identity (if verbalized by the patient): Female Spiritual care concerns: No Comments At time of signature, agree with nursing past medical, surgical, social and family history. There is no relevant family history pertinent to the presenting complaint. Exam Const: General: cooperative, healthy appearing, comfortable, no acute distress and well nourished Nutritional Appearance: well nourished Orientation/consciousness: patient oriented x3 Limitations: no limitations HENMT: Head: normal to inspection, normocephalic and atraumatic Ears: hearing grossly normal bilaterally and external ears normal Face/Nose/Sinus: Normal external nose present, Epistaxis present bilaterally dried blood present; no active bleeding, normal facial exam and face symmetric Face and sinus: normal facial exam and face symmetric Mouth: Yes lip normal Eyes: General: appearance normal, both eyes and all related structures Alignment and Position: alignment normal and position normal Periorbital: periorbital findings normal Eyelids: eyelids normal Pupils: Equal, round and reactive pupils present EOM: EOMs intact bilaterally Neck: Neck: normal visual inspection, full ROM and supple Chest: Chest palpation & inspection: normal inspection of the chest Resp: Effort & Inspection: normal respiratory effort and able to speak in complete sentences Auscultation: clear to auscultation bilaterally Cardio: Rate: regular rate Rhythm: regular rhythm Heart sounds: S1 normal heart sound present and S2 normal heart sound present GI: Inspection: normal to inspection Skin: General skin exam: normal color and no rashes or lesions noted Neuro: General: patient oriented x3 and moves all extremities Cranial nerves: Yes Equal, round and reactive pupils present Speech: normal speech Gait exam (Neuro): Normal gait present Extrem: General: normal to inspection, full ROM and no edema Psych: Appearance: grossly normal and well kempt Mental Status: mental status grossly normal Speech and movement: Normal speech and movement present Affect: normal affect Attitude: cooperative Thought process: Normal thought process present Course Course Emergency Course: Patient is aware of diagnosis, understands and agrees to treatment plan. Anticipatory guidance given. Patient agrees to follow-up as directed and is aware of reasons to seek care at the emergency department. Portions of this record may have been created with voice recognition software Level of Care: Express Care Visit Vital Signs Vital signs: Vital Signs Temperature 36.9 C 11/21/24 11:32 Pulse Rate 85 11/21/24 11:32 Respiratory Rate 20 11/21/24 11:32 Blood Pressure 149/72 H 11/21/24 11:32 Pulse Oximetry 95 11/21/24 11:32 Oxygen Delivery Room Air 11/21/24 11:32 Temperature 36.9 C 11/21/24 11:32 Pulse Rate 85 11/21/24 11:32 Respiratory Rate 20 11/21/24 11:32 Blood Pressure 149/72 H 11/21/24 11:32 Pulse Oximetry 95 11/21/24 11:32 Oxygen Delivery Room Air 11/21/24 11:32 Reviewed MDM - Epistaxis MDM Narrative Medical decision making narrative: Discussed prevention with blood pressure management and keeping nasal passages moist. Will send patient home with nose clamp. Patient to follow-up with ENT if symptoms persist. Pt well hydrated appearing, in no respiratory distress, hemodynamically stable. Recommend supportive care. The patient is stable at time of discharge the clinical impression was discussed and the patient was given the opportunity to ask questions, which were addressed as completely as possible given the information available at present. Anticipatory guidance and return to care precautions were discussed and the importance of primary care follow-up was stressed and encouraged. The patient voiced understanding of the plan, indications to return, and the need for follow-up. Exam findings show no acute concerns or changes Patient is appropriate for outpatient treatment and follow-up. Differential Diagnosis Differential diagnosis: Likely nasal bone fracture, anterior epistaxis and posterior epistaxis Discharge Plan Discharge Clinical Impression: Epistaxis Patient Disposition: Home Condition: Stable Instructions: Nosebleed (ED) Additional Instructions: First aid: Sit up and lean forward. This will help prevent you from swallowing blood. Spit blood and saliva into a bowl. Apply pressure to your nose. Use 2 fingers to pinch your nose shut for 10 Apply ice on the bridge of your nose to decrease swelling and bleeding. Use a cold pack or put crushed ice in a plastic bag. Cover it with a towel to protect your skin. Pack your nose with a cotton ball, tissue, tampon, or gauze bandage to stop the bleeding. Medicines: Saline Nasal spray use throughout the day to keep passages moist. You may use Affrin [place] into your nose up to 3 days. Do not pick or blow your nose for at least a week. You can irritate or damage your nose if you pick it. Blowing your nose too hard may cause the bleeding to start again. Do not bend over or strain as this can cause the bleeding to start again. Go to the emergency department if: Your nasal packing is soaked with blood. Your nose is still bleeding after 20 minutes, even after you pinch it. You have a foul-smelling discharge coming out of your nose. You feel so weak and dizzy that you have trouble standing up. You have trouble breathing or talking. Your blood pressure was elevated above 120/80 today at Urgent Care. This puts you above the threshold for follow up visit with a primary care provider. High blood pressure does not usually cause any symptoms, however it may lead to kidney failure, stroke, heart disease just to name a few if untreated . Many people are anxious when seeing a provider or nurse. As a result, you are not diagnosed with hypertension at this time unless your blood pressure is persistently high at two office visits at least one week apart. Some things that can help lower blood pressure are lifestyle modifications, such as light exercise, decreased salt in diet, and weight loss. It is important to follow up with a PCP about this within 1 week. Patient Language: Jamaican Prescriptions: No Action trazodone 50 mg tablet 50 mg PO HS PRN (Reason: Sleep) alprazolam 0.5 mg tablet 0.5 mg PO HS PRN (Reason: Sleep) metoprolol tartrate 50 mg tablet 50 mg PO BID cholecalciferol (vitamin D3) 1,250 mcg (50,000 unit) capsule 1,250 mcg PO WEEKLY Patient Comments: PT TAKES ON MONDAY potassium chloride 20 mEq tablet,ER particles/crystals 20 meq PO DAILY gabapentin 300 mg capsule 300 mg PO TID oxybutynin chloride 5 mg tablet 5 mg PO BID aspirin 81 mg Capsule 81 mg PO DAILY furosemide 40 mg tablet 60 mg PO DAILY venlafaxine 75 mg capsule,extended release 24hr 150 mg PO DAILY multivitamin Tablet 1 tablet PO DAILY vitamin B complex Tablet 1 tablet PO DAILY Follow-up/Referrals: Mayito,JYOTI Allen [Primary Care Provider, Unknown] - 3 Days Pankaj Cruz MD [Physician, Ear, Nose, Throat] - 3 Days Referral Note: Nosebleed Time of Disposition: 11:51
== END 2024-11-21 11:56 | disposition home or self-care (01) ==
PROVIDERS: Emergency Provider Nurse Practitioner Family; PCP Nurse Practitioner Family
DX: R04.0 Epistaxis (principal); Z87.891 Personal history of nicotine dependence; I10 Essential (primary) hypertension; G62.9 Polyneuropathy, unspecified; E66.01 Morbid (severe) obesity due to excess calories; Z68.43 Body mass index [BMI] 50.0-59.9, adult; Z98.84 Bariatric surgery status; F41.9 Anxiety disorder, unspecified; Z79.82 Long term (current) use of aspirin
CPT/HCPCS: 99211; G0463